=== PATIENT | male | born 2000 | race African-American/Black ===

== ENCOUNTER 2021-04-27 11:13 | Emergency (ER) | payer OTHER, MEDICAID, SELFPAY ==
[2021-04-27] VITALS (7 sets, daily range): BP systolic 104–113; BP diastolic 56–78; PULSE 63–78; RESP 14; TEMP 37.1; O2SAT 96–99
--- NOTE | 2021-04-27 13:44 | DI.RAD.S_ITS ---
PROCEDURE: XR HIP W PEL IF DONE LT 2V INDICATIONS: L hip pain TECHNIQUE: Two views of the hip were acquired. COMPARISON: None. FINDINGS: Dysplastic/dysmorphic changes of the left hip, favored to represent developmental or potentially posttraumatic change. The left acetabulum is shallow. The femoral head is abnormally squared in morphology. There is secondary degenerative change in the left femoroacetabular joint. IMPRESSION: Dysplastic appearance of the left acetabula left femoral head, favored be developmental or potentially posttraumatic. Mild secondary degenerative changes. Dictated by: Elias Meraz M.D. on 04/27/2021 at 15:29 Approved by: Elias Meraz M.D. on 04/27/2021 at 15:31
[2021-04-27] MEDS: MORPHINE 4 MG/ML INJ IM (13:58)
--- NOTE | 2021-04-30 14:26 | ED.EXTPRO ---
HPI - Extremity Problem <Ladi Dowell PA-C - Last Filed: 04/30/21 14:39> General Chief complaint: Extremity Problem,Nontraumatic Stated complaint: left hip pain,bones rubbing Time Seen by Provider: 04/27/21 13:15 Source: patient Mode of arrival: Ambulatory Limitations: no limitations History of Present Illness HPI Narrative: 20-year-old male with past medical history sickle cell disease presents to the ED with 2 months of worsening left hip pain. Patient states that he had similar pain in his right knee, consequently had a right hip replacement done with a spacer put in. Patient had that procedure in [place], has since then moved here, does not have Ortho follow-up currently. Patient states he has tried contacting [facility] without success in being able to find an appointment. Patient states that his left hip pain has worsened, has difficulty bearing weight and walking. Patient states he took ibuprofen at home without relief. Patient denies numbness, tingling, weakness. Patient denies fever, chills, chest pain, shortness of breath, nausea, vomiting, abdominal pain, dysuria. Related Data Allergies Allergy/AdvReac Type Severity Reaction Status Date / Time No Known Drug Allergies Allergy Verified 04/27/21 11:46 Review of Systems <Ladi Dowell PA-C - Last Filed: 04/30/21 14:39> Constitutional Constitutional: Denies chills, Denies fatigue, Denies fever(s), Denies frequent falls, Denies lethargy and Denies weakness Eyes Eyes: Denies change in vision, Denies eye discharge, Denies irritation and Denies loss of vision ENT Ears, Nose, Mouth, and Throat: Denies change in voice, Denies dizziness, Denies neck pain, Denies sore throat and Denies throat swelling Cardiovascular Cardiovascular: Denies chest pain, Denies irregular heart rhythm, Denies lightheadedness, Denies palpitations, Denies dyspnea, Denies dyspnea on exertion and Denies orthopnea Respiratory Respiratory: Denies cough, Denies dyspnea, Denies dyspnea on exertion and Denies wheezing Gastrointestinal Gastrointestinal: Denies abdominal pain, Denies change in bowel habits, Denies diarrhea, Denies nausea and Denies vomiting Musculoskeletal Musculoskeletal: Denies neck pain and Denies numbness Comments: L hip pain, pain with walking Integumentary/Breasts Skin/Breast: Denies pruritus, Denies erythema, Denies rash and Denies wounds Neurologic Neurologic: Denies behavioral changes, Denies confusion, Denies dizziness, Denies frequent falls, Denies loss of vision, Denies numbness and Denies weakness Psychiatric Psychiatric: Denies anxiety, Denies behavioral changes, Denies confusion, Denies depression, Denies homicidal ideation and Denies suicidal ideation Endocrine Endocrine: Denies fatigue, Denies flushing and Denies palpitations Hematologic/Lymphatic Hematologic/Lymphatic: Denies easy bruising Allergic/Immunologic Allergic/Immunologic: Denies urticaria, Denies throat swelling and Denies wheezing Patient History <Ladi Dowell PA-C - Last Filed: 04/30/21 14:39> Social History Smoking Status: Never smoker Smoking Status: Never smoker alcohol intake frequency: 0-2 drinks per day Substance Use Type: marijuana Exam <Ladi Dowell PA-C - Last Filed: 04/30/21 14:39> Initial Vital Signs Initial Vital Signs: Vital Signs Temperature 98.8 F 04/27/21 11:40 Pulse Rate 78 04/27/21 11:40 Respiratory Rate 14 04/27/21 11:40 Blood Pressure 110/78 04/27/21 11:40 Pulse Oximetry 99 04/27/21 11:40 Const General: cooperative HENMT Head: normocephalic and atraumatic Ears: external ears normal and TM's normal bilaterally Nose: external nose normal and No nasal discharge Face and sinus: sinuses nontender, face symmetric, no sinus tenderness and No dry mucous membranes Mouth: oral mucosae normal and moist mucous membranes Teeth and gingiva: dentition normal Throat: tonsils normal and uvula midline Eyes General: appearance normal, both eyes and all related structures Eyelids: eyelids normal Conjunctivae: conjunctivae normal Sclera: sclerae normal Pupils: PERRL EOM: EOM intact bilaterally Neck Neck: normal visual inspection, trachea midline, No lymphadenopathy, No midline deformity and No JVD Lymphatic: No lymphedema Chest Chest: normal inspection of the chest Resp Effort & Inspection: normal respiratory effort, able to speak in complete sentences, no respiratory distress and no use of accessory muscles Auscultation: clear to auscultation bilaterally, no rales, no rhonchi and no wheezes Cardio Rate: regular rate Rhythm: regular rhythm Heart Sounds: no click, no gallops, no murmurs and no rubs Pulses: normal peripheral pulses GI Inspection: non-distended Palpation: soft, no hepatosplenomegaly, No guarding, No pulsatile mass and No tender Auscultation: normal bowel sounds Back/Spine/Pelvis Back: No CVA tenderness Cervical Spine: cervical ROM normal and No pain with cervical ROM Thoracic/Lumbar Spine: thoracic and lumbar spine normal to inspection Skin General: no rashes or lesions noted, No jaundice and No petechiae Neuro General: patient alert, patient oriented x3, gait normal and no focal motor deficits Speech: speech normal Extrem General: full ROM, no clubbing, cyanosis or edema, no pedal edema and no calf tenderness Other: L hip TTP. No swelling, bruising. ROM intact, but limited by pain. L leg alignment normal, without internal or external rotation, no leg shortening. Neurovascularly intact. Psych Appearance: well kempt Mental Status: mental status grossly normal Attitude: cooperative Thought Content: normal and suicidality Judgment: judgment good <Beverley Kumar DO - Last Filed: 05/02/21 15:56> Initial Vital Signs Initial Vital Signs: Vital Signs Temperature 98.8 F 04/27/21 11:40 Pulse Rate 78 04/27/21 11:40 Respiratory Rate 14 04/27/21 11:40 Blood Pressure 110/78 04/27/21 11:40 Pulse Oximetry 99 04/27/21 11:40 Course <Ladi Dowell PA-C - Last Filed: 04/30/21 14:39> Course Course Narrative: For patient's pain improved marginally with morphine. Patient's x-ray shows dysplastic/dysmorphic changes. Orthopedic surgeon Dr. Painter from [facility] was consulted, who recommends that patient schedule an appointment with them to be seen for a left hip replacement. Patient discharged with ED return precautions and ortho follow-up. Patient verbalized understanding, agreed to schedule an appointment with scheduled [facility]. Orders Ordered: Discontinued Medications Morphine Sulfate (Morphine 4 Mg/Ml Inj) 4 mg IM NOW ONE Stop: 04/27/21 13:45 Last Admin: 04/27/21 13:58 Dose: 4 mg Documented by: ROBERT <Beverley Kumar DO - Last Filed: 05/02/21 15:56> Orders Ordered: Discontinued Medications Morphine Sulfate (Morphine 4 Mg/Ml Inj) 4 mg IM NOW ONE Stop: 04/27/21 13:45 Last Admin: 04/27/21 13:58 Dose: 4 mg Documented by: ROBERT VERGARA - Extremity (Nontraumatic) <Ladi Dowell PA-C - Last Filed: 04/30/21 14:39> Imaging Data Hip x-ray: Radiologist's Impression: PROCEDURE:? XR HIP W PEL IF DONE LT 2V ? INDICATIONS:? L hip pain ? TECHNIQUE:? Two views of the hip were acquired.? ? COMPARISON:? None. ? FINDINGS:? ? Dysplastic/dysmorphic changes of the left hip, favored to represent developmental or potentially posttraumatic change.? The left acetabulum is shallow.? The femoral head is abnormally squared in morphology.? There is secondary degenerative change in the left femoroacetabular joint. ? IMPRESSION:? Dysplastic appearance of the left acetabula left femoral head, favored be developmental or potentially posttraumatic.? Mild secondary degenerative changes.? ? ? Dictated by: Elias Meraz M.D. on 04/27/2021 at 15:29 ? ? Approved by: Elias Meraz M.D. on 04/27/2021 at 15:31 ? [facility] Narrative Medical decision making narrative: 20-year-old male with past medical history sickle cell disease presents to the ED with 2 months of worsening left hip pain. Concern for fracture/dislocation. Will obtain hip x-rays. Will give morphine for pain. Will reassess. Discharge Plan Departure Patient Disposition: Home Clinical Impression: Acute hip pain Qualifiers: Laterality: left Qualified Code(s): M25.552 - Pain in left hip Instructions: DI for Hip Pain Activity Restrictions/Additional Instructions: You were evaluated in the ED today for left-sided hip pain. Your x-ray showed some dysplastic or dysmorphic changes of the left hip that could either be a developmental issue or a posttraumatic development. Please follow-up with [facility] for further care. You may call and schedule an appointment at [phone]. UA take Tylenol, ibuprofen for pain. Please return to the ED if you experience worsening symptoms, numbness, tingling, weakness. <Beverley Kumar DO - Last Filed: 05/02/21 15:56> Cosign ED Attending Cosignature Attestation: I was immediately available in the department for consultation. Documentation has been reviewed.
== END 2021-04-27 17:00 | disposition home or self-care (01) ==
PROVIDERS: Emergency Provider Student in an Organized Health Care Education/Training Program
DX: M25.552 Pain in left hip (principal)
CPT/HCPCS: 73502; 96372; 99283; J2270

== ENCOUNTER 2022-12-06 14:43 | Emergency (ER) | payer OTHER, MEDICAID, SELFPAY ==
[2022-12-06] VITALS (9 sets, daily range): BP systolic 91–108; BP diastolic 52–63; PULSE 63–76; RESP 14–22; TEMP 36.4–36.9; O2SAT 98–100; BMI 18.6
--- NOTE | 2022-12-06 15:01 | DI.RAD.S_ITS ---
PROCEDURE: XR CHEST 2V INDICATIONS: sickle crisis TECHNIQUE: 2 views of the chest were acquired. COMPARISON: None. FINDINGS: Surgical changes and devices: Cholecystectomy clips. Lungs and pleura: Lungs are clear. No pleural effusions or pneumothorax. Mediastinum: Mediastinal contours are normal. Heart size is normal. Bones and chest wall: No suspicious bony abnormalities. Soft tissues appear unremarkable. IMPRESSION: No acute cardiopulmonary disease process. Dictated by: Jazmine Maria MD, PhD on 12/06/2022 at 15:56 Approved by: Jazmine Maria MD, PhD on 12/06/2022 at 15:57
[2022-12-06 15:41] LABS: Hematocrit 29.3 % (41-53); Hemoglobin 9.9 g/dL (13.5-17.5); Mean Corpuscular HGB Conc 33.6 % (30-36); Mean Corpuscular Hemoglobin 24.7 PG (26-34); Mean Corpuscular Volume 73.7 fL (80-100); Platelet Count 236 X10^3/uL (150-400); Red Blood Cell Count 3.98 X10^6/uL (4.5-5.9); Red Cell Distribution Width 18.1 % (11.6-14.8); White Blood Cell Count 11.5 X10^3/uL (4.5-11.0)
[2022-12-06] MEDS: KETOROLAC 30 MG/ML VIAL 15 MG IV (15:47)
[2022-12-06] MEDS: SODIUM CHLORIDE 0.9% 1,000 ML 1000 ML IV (15:48)
[2022-12-06 15:51] LABS: Alanine Aminotransferase 24 IU/L (<50); Albumin 4.5 g/dL (3.5-5.0); Albumin Globulin Ratio 1.1 (1.0-2.8); Alkaline Phosphatase 78 U/L (38-126); Aspartate Aminotransferase 46 IU/L (17-59); BUN Creatinine Ratio 5.4 (6-22); Bilirubin Total 2.3 mg/dL (0.2-1.3); Blood Urea Nitrogen 3 mg/dL (9-20); C-Reactive Protein Quant 1.5 mg/dL (<1.0); Calcium 8.3 mg/dL (8.4-10.2); Carbon Dioxide 22 mmol/L (22-32); Chloride 105 mmol/L (98-107); Estimated Glomerular Filt Rate > 60 mL/min (>60); Glucose 152 mg/dL (70-100); HEMOLYSIS 15 (0-50); Magnesium 1.9 mg/dL (1.6-2.3); Potassium 3.5 mmol/L (3.4-5.1); Sodium 137 mmol/L (137-145); Total Protein 8.5 g/dL (6.3-8.2)
[2022-12-06 15:53] LABS: Reticulocyte Count, Percent 7.4 % (0.9-2.6)
[2022-12-06] MEDS: ACETAMINOPHEN IV 1,000 MG/100 ML VIAL 400 MG IV (15:53)
[2022-12-06 16:24] LABS: Add Manual Diff / Slide Review YES
[2022-12-06 16:35] LABS: Neutrophils Absolute Manual 6210 /uL (3000-5900); Total Cells Counted 100
[2022-12-06 16:40] LABS: Anisocytosis 2+
[2022-12-06 16:47] LABS: Polychromasia 1+; Schistocytes 1+; Sickle Cells 1+; Target Cells 2+
[2022-12-06 16:52] LABS: Erythrocyte Sedimentation Rate 13 MM/HR (0-15)
--- NOTE | 2022-12-06 17:05 | ED_ITS ---
HPI - Extremity Problem <Nawaf Quiroz DO - Last Filed: 12/07/22 11:03> General Chief complaint: Extremity Problem,Nontraumatic Stated complaint: sickle cell crisis, started in arm Time Seen by Provider: 12/06/22 15:01 Source: patient Mode of arrival: Ambulatory History of Present Illness HPI Narrative: 22-year-old male nonsmoker With a history of sickle cell not currently managed by any providers, does not know his baseline numbers, had stroke at age 1 presents with a chief complaint bilateral lower extremity pain for the past week or so. He denies any headache, blurred vision. He is no runny nose, sore throat or cough. He has no chest pain, shortness of breath or abdominal pain. He denies any change in bowel habits. He states that typically his vaso- occlusive crisis presents like this and it is not uncommon for him to experience exacerbations with weather change. Related Data Previous Rx's Medication Instructions Recorded hydrocodone 5 mg-acetaminophen 325 1 tab PO Q6H PRN pain #20 tabs 12/06/22 mg tablet Allergies Allergy/AdvReac Type Severity Reaction Status Date / Time No Known Drug Allergies Allergy Verified 04/27/21 11:46 Review of Systems <DO Yue Gray Last Filed: 12/07/22 11:03> Review of Systems Narrative: GENERAL: Denies chills, fatigue, malaise, fever, sweats. HEENT: Denies sinus pain, ear pain, sore throat, difficulty swallowing, dizzine ss. RESPIRATORY: Denies dyspnea, cough, wheezing, hemoptysis, sputum. CARDIOVASCULAR: Denies chest pain, palpitations, orthopnea, edema, GASTROINTESTINAL: Denies nausea, vomiting, abdominal pain, diarrhea, constipation, melena. : Denies dysuria, frequency, incontinence, hematuria, urinary retention. MUSCULOSKELETAL: denies weakness, joint pain, or bony pain SKIN: Denies rash, skin lesions, or other NEUROLOGIC: Denies weakness, headache, numbness, change in speech, confusion, seizures, incoordination. PSYCHIATRIC: No concerning psychosocial issues. 12 point review of systems is negative except for those stated above GENERAL: Denies chills, fatigue, malaise, fever, sweats. Patient History <DO Yue Gray Last Filed: 12/07/22 11:03> Social History Smoking Status: Never smoker Smoking Status: Never smoker alcohol intake frequency: holidays/special occasions only Substance Use Type: marijuana Exam <Nawaf Quiroz DO - Last Filed: 12/07/22 11:03> Narrative Exam Narrative: GENERAL: 22] year old patient appears stated age. Well-developed patient, in mild distress. HEAD: Atraumatic. Normocephalic. EYES: Pupils equal round and reactive. Extraocular motions intact. No scleral icterus. No injection or drainage. ENT: Nose without bleeding, purulent drainage. Throat without erythema, tonsillar hypertrophy or exudate. Airway patent. NECK: Trachea midline. Non tender CARDIOVASCULAR: Regular rate and rhythm without murmurs, gallops, or rubs. RESPIRATORY: Clear to auscultation. Breath sounds equal bilaterally. No wheezes, rales, or rhonchi. GASTROINTESTINAL: Abdomen soft, non-tender, nondistended. EXTREMITIES: No edema or joint tenderness. BACK: Nontender without deformity or crepitance. No flank tenderness. NEURO: AOx3. left-sided weakness chronic due to stroke at age 1 SKIN: No rash or erythema of visible areas Initial Vital Signs Initial Vital Signs: Vital Signs Temperature 98.5 F 12/06/22 14:55 Pulse Rate 76 12/06/22 14:55 Respiratory Rate 14 12/06/22 14:55 Blood Pressure 108/55 L 12/06/22 14:55 Pulse Oximetry 98 12/06/22 14:55 Oxygen Delivery Method Room Air 12/06/22 14:55 <Abebe Espinoza DO - Last Filed: 12/07/22 01:23> Initial Vital Signs Initial Vital Signs: Vital Signs Temperature 98.5 F 12/06/22 14:55 Pulse Rate 76 12/06/22 14:55 Respiratory Rate 14 12/06/22 14:55 Blood Pressure 108/55 L 12/06/22 14:55 Pulse Oximetry 98 12/06/22 14:55 Oxygen Delivery Method Room Air 12/06/22 14:55 Course <Nawaf Quiroz DO - Last Filed: 12/07/22 11:03> Orders Ordered: Discontinued Medications Hydrocodone Bitart/Acetaminophen (Hydrocodone/Acet 5/325 Tablet) 2 tab PO NOW ONE Stop: 12/06/22 19:14 Last Admin: 12/06/22 19:27 Dose: 2 tab Documented By: LASHAUN Hydromorphone HCl (Hydromorphone 0.5 Mg Inj) 0.5 mg IV NOW ONE Stop: 12/06/22 18:09 Last Admin: 12/06/22 18:34 Dose: 0.5 mg Documented By: JIMMY Sodium Chloride (Normal Saline 0.9%) 1,000 mls @ 1,000 mls/hr IV BOLUS ONE Stop: 12/06/22 16:00 Last Infusion: 12/06/22 17:09 Dose: 0 mls/hr Documented By: Admin: 12/06/22 15:48 Dose: 1,000 mls/hr Documented By: JIMMY Acetaminophen (Ofirmev) 1,000 mg in 100 mls @ 400 mls/hr IV NOW ONE Stop: 12/06/22 15:15 Last Infusion: 12/06/22 16:15 Dose: 0 mls/hr Documented By: Admin: 12/06/22 15:53 Dose: 400 mls/hr Documented By: JIMMY Ketorolac Tromethamine (Ketorolac 30 Mg/Ml Vial) 15 mg IV NOW ONE Stop: 12/06/22 15:02 Last Admin: 12/06/22 15:47 Dose: 15 mg Documented By: JIMMY Reevaluation(s) Reevaluation #1: minimal if any improvement after Tylenol and Toradol, Dilaudid ordered Vital Signs Vital signs: Vital Signs - 8 hr 12/06/22 17:30 12/06/22 17:30 12/06/22 18:00 Temperature Pulse Rate 65 Respiratory Rate 22 Blood Pressure 95/54 L 102/57 L Pulse Oximetry 99 Oxygen Delivery Method 12/06/22 18:00 12/06/22 18:30 12/06/22 18:30 Temperature Pulse Rate 63 64 Respiratory Rate Blood Pressure 105/59 L Pulse Oximetry 99 99 Oxygen Delivery Method 12/06/22 20:30 Temperature 97.6 F Pulse Rate 68 Respiratory Rate 16 Blood Pressure 100/56 L Pulse Oximetry 99 Oxygen Delivery Method Room Air <Abebe Espinoza DO - Last Filed: 12/07/22 01:23> Orders Ordered: Discontinued Medications Hydrocodone Bitart/Acetaminophen (Hydrocodone/Acet 5/325 Tablet) 2 tab PO NOW ONE Stop: 12/06/22 19:14 Last Admin: 12/06/22 19:27 Dose: 2 tab Documented By: LASHAUN Hydromorphone HCl (Hydromorphone 0.5 Mg Inj) 0.5 mg IV NOW ONE Stop: 12/06/22 18:09 Last Admin: 12/06/22 18:34 Dose: 0.5 mg Documented By: JIMMY Sodium Chloride (Normal Saline 0.9%) 1,000 mls @ 1,000 mls/hr IV BOLUS ONE Stop: 12/06/22 16:00 Last Infusion: 12/06/22 17:09 Dose: 0 mls/hr Documented By: Admin: 12/06/22 15:48 Dose: 1,000 mls/hr Documented By: JIMMY Acetaminophen (Ofirmev) 1,000 mg in 100 mls @ 400 mls/hr IV NOW ONE Stop: 12/06/22 15:15 Last Infusion: 12/06/22 16:15 Dose: 0 mls/hr Documented By: Admin: 12/06/22 15:53 Dose: 400 mls/hr Documented By: JIMMY Ketorolac Tromethamine (Ketorolac 30 Mg/Ml Vial) 15 mg IV NOW ONE Stop: 12/06/22 15:02 Last Admin: 12/06/22 15:47 Dose: 15 mg Documented By: JIMMY Vital Signs Vital signs: Vital Signs - 8 hr 12/06/22 17:30 12/06/22 17:30 12/06/22 18:00 Temperature Pulse Rate 65 Respiratory Rate 22 Blood Pressure 95/54 L 102/57 L Pulse Oximetry 99 Oxygen Delivery Method 12/06/22 18:00 12/06/22 18:30 12/06/22 18:30 Temperature Pulse Rate 63 64 Respiratory Rate Blood Pressure 105/59 L Pulse Oximetry 99 99 Oxygen Delivery Method 12/06/22 20:30 Temperature 97.6 F Pulse Rate 68 Respiratory Rate 16 Blood Pressure 100/56 L Pulse Oximetry 99 Oxygen Delivery Method Room Air MDM - Extremity (Nontraumatic) <Nawaf Quiroz DO - Last Filed: 12/07/22 11:03> Lab Data 12/06/22 15:21 12/06/22 15:21 Labs: Lab Results 12/06/22 12/06/22 12/06/22 Range/Units 15:21 15:21 15:21 WBC 11.5 H (4.5-11.0) X10^3/uL RBC 3.98 L (4.5-5.9) X10^6/uL Hgb 9.9 L (13.5-17.5) g/dL Hct 29.3 L (41-53) % MCV 73.7 L (80-100) fL MCH 24.7 L (26-34) PG MCHC 33.6 (30-36) % RDW 18.1 H (11.6-14.8) % Plt Count 236 (150-400) X10^3/uL Neut % (Auto) Not Reportable Lymph % (Auto) Not Reportable Hendricks % (Auto) Not Reportable Eos % (Auto) Not Reportable Baso % (Auto) Not Reportable Lymph # (Auto) Not Reportable Hendricks # (Auto) Not Reportable Baso # (Auto) Not Reportable Total Counted 100 Seg Neutrophils % 54.0 (38-70) % Lymphocytes % (Manual) 33.0 (25-45) % Monocytes % (Manual) 10.0 (2-11) % Eosinophils % (Manual) 3.0 (2-4) % Neutrophils # (Manual) 6210 H (8816-7947) /uL RBC Morphology See below Polychromasia 1+ H Anisocytosis 2+ H Sickle Cells 1+ H Target Cells 2+ H Schistocytes 1+ H ESR 13 (0-15) MM/HR Percent Retic 7.4 H (0.9-2.6) % Sodium 137 (137-145) mmol/L Potassium 3.5 (3.4-5.1) mmol/L Chloride 105 (98-107) mmol/L Carbon Dioxide 22 (22-32) mmol/L BUN 3 L (9-20) mg/dL Creatinine 0.56 L (0.66-1.25) mg/dL Estimated GFR > 60 (>60) mL/min BUN/Creatinine Ratio 5.4 L (6-22) Glucose 152 H (70-100) mg/dL Calcium 8.3 L (8.4-10.2) mg/dL Magnesium 1.9 (1.6-2.3) mg/dL Total Bilirubin 2.3 H (0.2-1.3) mg/dL AST 46 (17-59) IU/L ALT 24 (<50) IU/L Alkaline Phosphatase 78 (38-126) U/L C-Reactive Protein 1.5 H (<1.0) mg/dL Total Protein 8.5 H (6.3-8.2) g/dL Albumin 4.5 (3.5-5.0) g/dL Globulin 4.0 (1.7-4.1) g/dL Albumin/Globulin Ratio 1.1 (1.0-2.8) MDM Narrative Medical decision making narrative: CC: 22-year-old male with extremity pain known sickle cell Complicating co-morbidities: Sickle cell, prior stroke Data collected from: Patient Medical records reviewed: Prior notes reviewed in our EMR Differential considered, but not limited to: Vaso-occlusive crisis versus other Exam documented above, pertinent findings include: Awake, alert and oriented, no increased work of breathing, lungs clear, abdomen soft Lab Test results independently reviewed as above. Pertinent findings: Hemoglobin 9.9, retic count within normal expected range Imaging studies independently reviewed: No acute process Treatments: Patient given IV Tylenol, Toradol, Dilaudid, hydrocodone Re-evaluations: Minimal if any improvement after Toradol or Tylenol. Patient did have improvement after Dilaudid but it was short-lived, patient given hydrocodone Discussion: Disposition: see below, along with detailed discharge instructions that have been reviewed with patient as well as indications for ED re-evaluation and additional outpatient follow up <Abebe Espinoza DO - Last Filed: 12/07/22 01:23> Lab Data Labs: Lab Results 12/06/22 12/06/22 12/06/22 Range/Units 15:21 15:21 15:21 WBC 11.5 H (4.5-11.0) X10^3/uL RBC 3.98 L (4.5-5.9) X10^6/uL Hgb 9.9 L (13.5-17.5) g/dL Hct 29.3 L (41-53) % MCV 73.7 L (80-100) fL MCH 24.7 L (26-34) PG MCHC 33.6 (30-36) % RDW 18.1 H (11.6-14.8) % Plt Count 236 (150-400) X10^3/uL Neut % (Auto) Not Reportable Lymph % (Auto) Not Reportable Hendricks % (Auto) Not Reportable Eos % (Auto) Not Reportable Baso % (Auto) Not Reportable Lymph # (Auto) Not Reportable Hendricks # (Auto) Not Reportable Baso # (Auto) Not Reportable Total Counted 100 Seg Neutrophils % 54.0 (38-70) % Lymphocytes % (Manual) 33.0 (25-45) % Monocytes % (Manual) 10.0 (2-11) % Eosinophils % (Manual) 3.0 (2-4) % Neutrophils # (Manual) 6210 H (7568-1870) /uL RBC Morphology See below Polychromasia 1+ H Anisocytosis 2+ H Sickle Cells 1+ H Target Cells 2+ H Schistocytes 1+ H ESR 13 (0-15) MM/HR Percent Retic 7.4 H (0.9-2.6) % Sodium 137 (137-145) mmol/L Potassium 3.5 (3.4-5.1) mmol/L Chloride 105 (98-107) mmol/L Carbon Dioxide 22 (22-32) mmol/L BUN 3 L (9-20) mg/dL Creatinine 0.56 L (0.66-1.25) mg/dL Estimated GFR > 60 (>60) mL/min BUN/Creatinine Ratio 5.4 L (6-22) Glucose 152 H (70-100) mg/dL Calcium 8.3 L (8.4-10.2) mg/dL Magnesium 1.9 (1.6-2.3) mg/dL Total Bilirubin 2.3 H (0.2-1.3) mg/dL AST 46 (17-59) IU/L ALT 24 (<50) IU/L Alkaline Phosphatase 78 (38-126) U/L C-Reactive Protein 1.5 H (<1.0) mg/dL Total Protein 8.5 H (6.3-8.2) g/dL Albumin 4.5 (3.5-5.0) g/dL Globulin 4.0 (1.7-4.1) g/dL Albumin/Globulin Ratio 1.1 (1.0-2.8) MDM Narrative Medical decision making narrative: CC: 22-year-old male with extremity pain known sickle cell Complicating co-morbidities: Sickle cell, prior stroke Data collected from: Patient Medical records reviewed: Prior notes reviewed in our EMR Differential considered, but not limited to: Vaso-occlusive crisis versus other Exam documented above, pertinent findings include: Awake, alert and oriented, no increased work of breathing, lungs clear, abdomen soft Lab Test results independently reviewed as above. Pertinent findings: Hemoglobin 9.9, retic count within normal expected range Imaging studies independently reviewed: No acute process Treatments: Patient given IV Tylenol, Toradol, Dilaudid, hydrocodone Re-evaluations: Minimal if any improvement after Toradol or Tylenol. Patient did have improvement after Dilaudid but it was short-lived, patient given hydrocodone Discussion: Disposition: see below, along with detailed discharge instructions that have been reviewed with patient as well as indications for ED re-evaluation and additional outpatient follow up Dr Espinoza: Patient's pain is very well controlled. Will discharge patient home. He was informed that he does need to make contact with a primary doctor. Discharge Plan Departure Patient Disposition: Home Clinical Impression: Sickle cell disease Instructions: DI for Sickle Cell Anemia, Pain Crisis -- Adult Activity Restrictions/Additional Instructions: It is important that you may contact with the primary care doctor to manage your long-term issues. Return to the emergency department for new or worsening symptoms. Prescriptions: New hydrocodone-acetaminophen 5-325 mg tablet 1 tab PO Q6H PRN (Reason: pain) Qty: 20 0RF Referrals: Evens Valdez MD [Primary Care Provider] - Stand Alone Forms: Patient Portal/API, Work Release Note
[2022-12-06] MEDS: HYDROMORPHONE 0.5 MG INJ IV (18:34)
[2022-12-06] MEDS: HYDROCODONE/ACET 5/325 TABLET 2 TAB PO (19:27)
== END 2022-12-06 20:31 | disposition home or self-care (01) ==
PROVIDERS: Emergency Medicine; Emergency Provider Emergency Medicine; PCP Family Medicine
DX: D57.1 Sickle-cell disease without crisis (principal)
CPT/HCPCS: 36415; 71046; 80053; 83735; 85007; 85025; 85045; 85651; 86140; 96365; 96375; 99284; J0131; J1170; J1885

== ENCOUNTER 2022-12-09 17:31 | Emergency (ER) | payer OTHER, MEDICAID, SELFPAY ==
[2022-12-09] VITALS (10 sets, daily range): BP systolic 96–110; BP diastolic 54–66; PULSE 65–78; RESP 17–24; TEMP 36.7; O2SAT 96–100; BMI 18.6
--- NOTE | 2022-12-09 18:04 | DI.RAD.S_ITS ---
PROCEDURE: XR CHEST 1V INDICATIONS: chest pain TECHNIQUE: One view of the chest was acquired. COMPARISON: [facility], CR, XR CHEST 2V, 12/06/2022, 15:40. FINDINGS: Surgical changes and devices: None. Lungs and pleura: Lungs are clear. No pleural effusions or pneumothorax. Mediastinum: Mediastinal contours appear normal. Heart size is normal. Bones and chest wall: No suspicious bony lesions. Overlying soft tissues appear unremarkable. IMPRESSION: No acute process. Dictated by: Justa Cobian M.D. on 12/09/2022 at 18:28 Approved by: Justa Cobian M.D. on 12/09/2022 at 18:29
[2022-12-09 18:27] LABS: INR 1.3 (0.9-1.3); Prothrombin Time 15.3 SECONDS (10.1-12.7)
[2022-12-09 18:29] LABS: Hematocrit 28.2 % (41-53); Hemoglobin 9.6 g/dL (13.5-17.5); Mean Corpuscular Hemoglobin 25.1 PG (26-34); Mean Corpuscular Volume 73.8 fL (80-100); Platelet Count 254 X10^3/uL (150-400); Red Blood Cell Count 3.82 X10^6/uL (4.5-5.9); Red Cell Distribution Width 17.8 % (11.6-14.8); White Blood Cell Count 10.9 X10^3/uL (4.5-11.0)
[2022-12-09 18:30] LABS: PTT Partial Thromboplastin Tim 25 SECONDS (26-36)
[2022-12-09 18:38] LABS: Alanine Aminotransferase 24 IU/L (<50); Albumin 4.7 g/dL (3.5-5.0); Albumin Globulin Ratio 1.2 (1.0-2.8); Alkaline Phosphatase 81 U/L (38-126); Aspartate Aminotransferase 51 IU/L (17-59); BUN Creatinine Ratio 9.5 (6-22); Bilirubin Total 2.5 mg/dL (0.2-1.3); Blood Urea Nitrogen 6 mg/dL (9-20); Calcium 8.7 mg/dL (8.4-10.2); Carbon Dioxide 23 mmol/L (22-32); Chloride 105 mmol/L (98-107); Creatine Kinase 172 U/L (55-170); Estimated Glomerular Filt Rate > 60 mL/min (>60); Glucose 93 mg/dL (70-100); Lipase 112 U/L (23-300); Potassium 4.1 mmol/L (3.4-5.1); Sodium 139 mmol/L (137-145); Total Protein 8.7 g/dL (6.3-8.2)
[2022-12-09 18:49] LABS: Troponin I 0.016 ng/mL (0.01-0.034)
[2022-12-09 18:53] LABS: CKMB % Relative Index 0.2 % (1.5-5.0); Creatine Kinase MB 0.27 ng/mL (<2.37); HEMOLYSIS 18 (0-50)
[2022-12-09 18:56] LABS: Add Manual Diff / Slide Review YES
[2022-12-09 19:01] LABS: Anisocytosis 3+; Neutrophils Absolute Manual 5232 /uL (3000-5900); Total Cells Counted 100
[2022-12-09 19:02] LABS: Microcytosis 2+; Ovalocytes 1+; Poikilocytosis 4+; Sickle Cells 2+; Target Cells 2+
--- NOTE | 2022-12-09 21:53 | ED.CHESTPAIN ---
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 He reports that he is having chest pain and never really got better after he was seen evaluated here on 12/06/2022. He denies any shortness of breath or fever. He feels heaviness in his chest. No significant shortness of breath. No abdominal pain nausea or vomiting Related Data Previous Rx's Medication Instructions Recorded hydrocodone 5 mg-acetaminophen 325 1 tab PO Q6H PRN pain #20 tabs 12/06/22 mg tablet Allergies Allergy/AdvReac Type Severity Reaction Status Date / Time No Known Drug Allergies Allergy Verified 12/09/22 18:03 Review of Systems Review of Systems ROS Unobtainable: All systems reviewed & are unremarkable except as noted in HPI and below Patient History Social History Smoking Status: Never smoker Smoking Status: Never smoker alcohol intake frequency: holidays/special occasions only Substance Use Type: marijuana Exam Initial Vital Signs Initial Vital Signs: Vital Signs Temperature 98.1 F 12/09/22 17:58 Pulse Rate 78 12/09/22 17:58 Respiratory Rate 20 12/09/22 17:58 Blood Pressure 110/66 12/09/22 17:58 Pulse Oximetry 100 12/09/22 17:58 Oxygen Delivery Method Room Air 12/09/22 17:58 GENERAL: Alert well-appearing 22-year-old male HEENT: Head atraumatic,EOMI, pupils reactive, face symmetric, moist mucous membranes CARDIOVASCULAR: Regular rate and rhythm without murmurs, rubs or gallops. RESPIRATORY: Breath sounds equal bilaterally, no wheezes rales or rhonchi. No conversational dyspnea or respiratory distress ABDOMEN: Soft, nontender. Normoactive bowel sounds all 4 quadrants. No guarding or rebound. EXTREMITIES: Normal range of motion, no clubbing or edema. Neurovascularly intact NEUROLOGICAL: Alert and oriented x4.Normal gait and speech. Left arm weakness at baseline SKIN: Warm, dry, no laceration, no petechiae, no rashes or lesions. Course Orders Ordered: ED Orders 12/09/22 23:46 CT angio chest PE protocol Stat Discontinued Medications Acetaminophen (Acetaminophen 325 Mg Tablet) 975 mg PO NOW ONE Stop: 12/09/22 23:40 Last Admin: 12/09/22 23:55 Dose: 975 mg Documented By: DERIAN Aspirin (Aspirin 81 Mg Chew Tab) 324 mg PO NOW ONE Stop: 12/09/22 18:05 Last Admin: 12/09/22 21:03 Dose: Not Given Documented By: MOLLY Hydromorphone HCl (Hydromorphone 0.5 Mg Inj) 0.5 mg IV NOW ONE Stop: 12/09/22 21:55 Last Admin: 12/09/22 22:19 Dose: 0.5 mg Documented By: DERIAN Hydromorphone HCl (Hydromorphone 1 Mg Inj) 1 mg IV NOW ONE Stop: 12/10/22 01:18 Last Admin: 12/10/22 01:21 Dose: 1 mg Documented By: DERIAN Sodium Chloride (Normal Saline 0.9%) 1,000 mls @ 1,000 mls/hr IV BOLUS ONE Stop: 12/09/22 22:53 Last Infusion: 12/09/22 23:30 Dose: 0 mls/hr Documented By: Admin: 12/09/22 22:19 Dose: 1,000 mls/hr Documented By: DERIAN Sodium Chloride (Normal Saline 0.9%) 1,000 mls @ 1,000 mls/hr IV BOLUS ONE Stop: 12/10/22 00:38 Last Infusion: 12/10/22 01:22 Dose: 0 mls/hr Documented By: Admin: 12/09/22 23:57 Dose: 1,000 mls/hr Documented By: DERIAN Ketorolac Tromethamine (Ketorolac 30 Mg/Ml Vial) 30 mg IV NOW ONE Stop: 12/09/22 23:40 Last Admin: 12/09/22 23:56 Dose: 30 mg Documented By: DERIAN Vital Signs Vital signs: Vital Signs - 8 hr 12/09/22 23:00 12/09/22 23:30 12/10/22 00:09 Pulse Rate 74 68 64 Respiratory Rate 21 Blood Pressure Pulse Oximetry 99 96 98 Oxygen Delivery Method 12/10/22 00:30 12/10/22 01:00 12/10/22 01:30 Pulse Rate 69 73 75 Respiratory Rate 22 21 14 Blood Pressure Pulse Oximetry 97 98 95 Oxygen Delivery Method 12/10/22 01:40 12/10/22 01:40 Pulse Rate 70 Respiratory Rate 24 Blood Pressure 113/60 Pulse Oximetry 96 Oxygen Delivery Method Room Air MDM - Chest Pain Lab Data 12/09/22 18:10 12/09/22 18:10 Labs: Lab Results 12/09/22 12/09/22 12/09/22 Range/Units 18:10 18:10 18:10 WBC 10.9 (4.5-11.0) X10^3/uL RBC 3.82 L (4.5-5.9) X10^6/uL Hgb 9.6 L (13.5-17.5) g/dL Hct 28.2 L (41-53) % MCV 73.8 L (80-100) fL MCH 25.1 L (26-34) PG MCHC 34.0 (30-36) % RDW 17.8 H (11.6-14.8) % Plt Count 254 (150-400) X10^3/uL Neut % (Auto) Not Reportable Lymph % (Auto) Not Reportable [place] % (Auto) Not Reportable Eos % (Auto) Not Reportable Baso % (Auto) Not Reportable Lymph # (Auto) Not Reportable [place] # (Auto) Not Reportable Baso # (Auto) Not Reportable Total Counted 100 Seg Neutrophils % 48.0 (38-70) % Lymphocytes % (Manual) 36.0 (25-45) % Atypical Lymphs % 4.0 H ( - 0) % Monocytes % (Manual) 8.0 (2-11) % Eosinophils % (Manual) 4.0 (2-4) % Neutrophils # (Manual) 5232 (3069-5802) /uL RBC Morphology See below Poikilocytosis 4+ H Anisocytosis 3+ H Microcytosis 2+ H Sickle Cells 2+ H Target Cells 2+ H Ovalocytes 1+ H Percent Retic (0.9-2.6) % PT 15.3 H (10.1-12.7) SECONDS INR 1.3 (0.9-1.3) APTT 25 L (26-36) SECONDS Sodium 139 (137-145) mmol/L Potassium 4.1 (3.4-5.1) mmol/L Chloride 105 (98-107) mmol/L Carbon Dioxide 23 (22-32) mmol/L BUN 6 L (9-20) mg/dL Creatinine 0.63 L (0.66-1.25) mg/dL Estimated GFR > 60 (>60) mL/min BUN/Creatinine Ratio 9.5 (6-22) Glucose 93 (70-100) mg/dL Calcium 8.7 (8.4-10.2) mg/dL Magnesium 2.0 (1.6-2.3) mg/dL Total Bilirubin 2.5 H (0.2-1.3) mg/dL Direct Bilirubin (0.0-0.4) mg/dL Conjugated Bilirubin (0.0-0.3) md/dL AST 51 (17-59) IU/L ALT 24 (<50) IU/L Alkaline Phosphatase 81 (38-126) U/L Total Creatine Kinase 172 H (55-170) U/L CK-MB (CK-2) 0.27 (<2.37) ng/mL CK-MB (CK-2) Rel Index 0.2 L (1.5-5.0) % Troponin I 0.016 (0.01-0.034) ng/mL Total Protein 8.7 H (6.3-8.2) g/dL Albumin 4.7 (3.5-5.0) g/dL Globulin 4.0 (1.7-4.1) g/dL Albumin/Globulin Ratio 1.2 (1.0-2.8) Lipase 112 (23-300) U/L SARS-CoV-2 (PCR) (Negative) 12/09/22 12/09/22 12/09/22 Range/Units 18:10 18:10 21:40 WBC (4.5-11.0) X10^3/uL RBC (4.5-5.9) X10^6/uL Hgb (13.5-17.5) g/dL Hct (41-53) % MCV (80-100) fL MCH (26-34) PG MCHC (30-36) % RDW (11.6-14.8) % Plt Count (150-400) X10^3/uL Neut % (Auto) Lymph % (Auto) [place] % (Auto) Eos % (Auto) Baso % (Auto) Lymph # (Auto) [place] # (Auto) Baso # (Auto) Total Counted Seg Neutrophils % (38-70) % Lymphocytes % (Manual) (25-45) % Atypical Lymphs % ( - 0) % Monocytes % (Manual) (2-11) % Eosinophils % (Manual) (2-4) % Neutrophils # (Manual) (7242-6547) /uL RBC Morphology Poikilocytosis Anisocytosis Microcytosis Sickle Cells Target Cells Ovalocytes Percent Retic 7.4 H (0.9-2.6) % PT (10.1-12.7) SECONDS INR (0.9-1.3) APTT (26-36) SECONDS Sodium (137-145) mmol/L Potassium (3.4-5.1) mmol/L Chloride (98-107) mmol/L Carbon Dioxide (22-32) mmol/L BUN (9-20) mg/dL Creatinine (0.66-1.25) mg/dL Estimated GFR (>60) mL/min BUN/Creatinine Ratio (6-22) Glucose (70-100) mg/dL Calcium (8.4-10.2) mg/dL Magnesium (1.6-2.3) mg/dL Total Bilirubin (0.2-1.3) mg/dL Direct Bilirubin 0.7 H (0.0-0.4) mg/dL Conjugated Bilirubin 0.0 (0.0-0.3) md/dL AST (17-59) IU/L ALT (<50) IU/L Alkaline Phosphatase (38-126) U/L Total Creatine Kinase (55-170) U/L CK-MB (CK-2) (<2.37) ng/mL CK-MB (CK-2) Rel Index (1.5-5.0) % Troponin I (0.01-0.034) ng/mL Total Protein (6.3-8.2) g/dL Albumin (3.5-5.0) g/dL Globulin (1.7-4.1) g/dL Albumin/Globulin Ratio (1.0-2.8) Lipase (23-300) U/L SARS-CoV-2 (PCR) Negative (Negative) Imaging Data Chest x-ray: Radiologist's Impression: PROCEDURE:? XR CHEST 1V ? INDICATIONS:? chest pain ? TECHNIQUE:? One view of the chest was acquired.? ? COMPARISON:? [facility], CR, XR CHEST 2V, 12/06/2022, 15:40. ? FINDINGS:? ? Surgical changes and devices:? None.? ? Lungs and pleura:? Lungs are clear.? No pleural effusions or pneumothorax.? ? Mediastinum:? Mediastinal contours appear normal.? Heart size is normal.? ? Bones and chest wall:? No suspicious bony lesions.? Overlying soft tissues appear unremarkable.? ? IMPRESSION:? No acute process. ? ? Dictated by: Justa Cobian M.D. on 12/09/2022 at 18:28? ECG Data Interpretation: Normal sinus rhythm rate 83 NJ interval 274 QRS [address] changes MDM Narrative Medical decision making narrative: Patient 22-year-old male history of sickle cell anemia presents today with ongoing chest pain. Seen evaluated here 2 days ago for the same. Reticulocyte count today remains the same at 7.4 which is within normal limits and to be expected. No elevated indirect bilirubin. Sickle cell count has gone up to 2 over the last 2 days. Chest x-ray today and 2 days ago are negative. He is not hypoxic he is not requiring oxygen. He is not hypotensive. He is given 2 L of IV fluids. He 1st was given some Dilaudid Toradol and Tylenol. He says helped a little bit but is quickly back. Due to ongoing chest discomfort which he describes as different than his sickle cell pain CT angio was done which is negative. This time not convinced that patient is currently having a sickle cell crisis there is no evidence of acute chest syndrome. Patient asking for more Dilaudid he is given 1 more mg of Dilaudid. No prescriptions for pain. He has previously been going down to [facility] for his sickle cell crisis episodes. Discharge Plan Departure Patient Disposition: Home Clinical Impression: Sickle cell disease, Atypical chest pain Instructions: DI for Atypical Chest Pain, Sickle Cell Crisis Activity Restrictions/Additional Instructions: *You have been diagnosed with sickle cell disease *What to do: Today workup in the emergency department is negative. *Continue to take medications as directed *Follow up with your primary care provider in 2-3 days or call [phone] *Return to ER if you should have any new, worsening or concerning symptoms Prescriptions: No Action hydrocodone-acetaminophen 5-325 mg tablet 1 tab PO Q6H PRN (Reason: pain) Qty: 20 0RF Referrals: Evens Valdez MD [Primary Care Provider] - Stand Alone Forms: Patient Portal/API
[2022-12-09 22:01] LABS: COVID19 -Nasal RAPID Negative (Negative)
[2022-12-09 22:14] LABS: Bilirubin Direct 0.7 mg/dL (0.0-0.4)
[2022-12-09] MEDS: HYDROMORPHONE 0.5 MG INJ IV (22:19)
[2022-12-09] MEDS: SODIUM CHLORIDE 0.9% 1,000 ML 1000 ML IV ×2 (22:19→23:57)
[2022-12-09 22:29] LABS: Reticulocyte Count, Percent 7.4 % (0.9-2.6)
--- NOTE | 2022-12-09 23:46 | DI.CT.S_ITS ---
PROCEDURE: CT ANGIO CHEST PE PROTOCOL INDICATIONS: sickle cell chest pain TECHNIQUE: After the administration of intravenous contrast, 2 mm thick sections acquired from the pulmonary apices to the posterior costophrenic angles. 3-dimensional maximum intensity projection (MIP) coronal and sagittal reformats were then acquired through the thorax. For radiation dose reduction, the following was used: automated exposure control, adjustment of mA and/or kV according to patient size. COMPARISON: None. FINDINGS: Image quality: Excellent. Pulmonary arteries: Pulmonary arteries are normal in size, and demonstrate no intraluminal filling defects to suggest central pulmonary embolism. Lower Neck: No lymphadenopathy by size criteria. Thyroid: Visualized thyroid demonstrates no discrete nodules. Axillae: No lymphadenopathy by size criteria. Chest Wall: Unremarkable. Bones: There is a diffusely heterogeneous appearance of the visualized osseous structures with heterogeneous areas of sclerosis. Sequelae of a vascular necrosis also demonstrated within the visualized humeral heads with articular surface collapse on the left. Lungs and Airways: No acute consolidation. No suspicious pulmonary nodules. The trachea and central airways are patent. Pleura: No pneumothorax or pleural effusions. Heart: Heart size is normal. No pericardial effusion. Thoracic Vessels: The thoracic aorta is normal in size. Mediastinum and Adela: No lymphadenopathy by size criteria. Esophagus: No wall thickening. No hiatal hernia. Abdomen: Visualized upper abdominal solid organs appear normal in the early arterial phase of enhancement. IMPRESSION: 1. No evidence of pulmonary embolism. 2. No acute airspace consolidation. 3. Diffusely heterogeneous appearance of the visualized osseous structures consistent with sequelae of patient's history of sickle cell. 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 Dictated by: Bean Russell M.D. on 12/10/2022 at 0:40 Approved by: Bean Russell M.D. on 12/10/2022 at 1:01
[2022-12-09] MEDS: ACETAMINOPHEN 325 MG TABLET 975 MG PO (23:55)
[2022-12-09] MEDS: KETOROLAC 30 MG/ML VIAL IV (23:56)
[2022-12-10 00:09] VITALS: PULSE 64; O2SAT 98
[2022-12-10 00:30] VITALS: PULSE 69; RESP 22; O2SAT 97
[2022-12-10 01:00] VITALS: PULSE 73; RESP 21; O2SAT 98
[2022-12-10] MEDS: HYDROMORPHONE 1 MG INJ IV (01:21)
[2022-12-10 01:30] VITALS: PULSE 75; RESP 14; O2SAT 95
[2022-12-10 01:40] VITALS: BP 113/60; PULSE 70; RESP 24; O2SAT 96
== END 2022-12-10 01:47 | disposition home or self-care (01) ==
PROVIDERS: Emergency Medicine; Emergency Provider Emergency Medicine; PCP Family Medicine
DX: R07.89 Other chest pain (principal); D57.1 Sickle-cell disease without crisis; Z20.822 Contact with and (suspected) exposure to COVID-19
CPT/HCPCS: 36415; 71045; 71275; 80053; 82248; 82550; 82553; 83690; 83735; 84484; 85007; 85025; 85045; 85610; 85730; 87635; 93005; 93010; 96361; 96374; 96375; 96376; 99284; 99285; C9803; J1170; J1885; Q9967

== ENCOUNTER 2022-12-25 15:42 | Emergency (ER) | payer OTHER, MEDICAID, SELFPAY ==
[2022-12-25 15:57] VITALS: BP 113/54; PULSE 66; RESP 18; O2SAT 99; BMI 22.1
--- NOTE | 2022-12-25 15:57 | DI.RAD.S_ITS ---
PROCEDURE: XR CHEST 1V INDICATIONS: Sickle cell patient in acute crisis TECHNIQUE: One view of the chest was acquired. COMPARISON: [facility], CT, CT ANGIO CHEST PE PROTOCOL, 12/09/2022, 23:56. [facility], CR, XR CHEST 1V, 12/09/2022, 18:16. FINDINGS: Surgical changes and devices: None. Lungs and pleura: No focal infiltrates are seen. No significant interstitial prominence. No pleural effusions or pneumothorax. Mediastinum: Mediastinal contours appear normal. Heart size is normal. Bones and chest wall: Areas of bony irregularity and sclerosis are seen, which are better demonstrated by CT. Overlying soft tissues appear unremarkable. IMPRESSION: No acute cardiopulmonary process is seen. Bony changes are noted, which are much better seen by CT. Dictated by: Александр Chandler M.D. on 12/25/2022 at 15:24 Approved by: Александр Chandler M.D. on 12/25/2022 at 15:25
--- NOTE | 2022-12-25 16:01 | ED.GENADULT ---
HPI - General Adult General Chief complaint: Weakness Stated complaint: sickle cell crisis Time Seen by Provider: 12/25/22 15:51 Source: patient Mode of arrival: Ambulatory Limitations: no limitations History of Present Illness HPI narrative: Patient is a 22-year-old male. This is his 3rd visit in the emergency department in the past month for sickle cell pain crisis. He does not have a primary care doctor. He returns to the emergency department today saying that he is having pain in his legs in his arms and in his back. It is similar to the discomfort that he had the last 2 times he was here in the ER. He states his symptoms started last evening. He did take some naproxen prior to arrival without any improvement. No fevers. No shortness of breath. No chest pain. He states that since he was here in the emergency department last his pain did completely go away but then returned last evening. Related Data Previous Rx's Medication Instructions Recorded hydrocodone 5 mg-acetaminophen 325 1 tab PO Q6H PRN pain #20 tabs 12/06/ mg tablet hydrocodone 5 mg-acetaminophen 325 1 tab PO Q8H PRN pain #14 tabs 12/25/22 mg tablet Allergies Allergy/AdvReac Type Severity Reaction Status Date / Time No Known Drug Allergies Allergy Verified 12/09/22 18:03 Review of Systems Review of Systems ROS Unobtainable: All systems reviewed & are unremarkable except as noted in HPI and below Patient History Social History Smoking Status: Never smoker Smoking Status: Never smoker alcohol intake frequency: holidays/special occasions only Substance Use Type: marijuana Exam Initial Vital Signs Initial Vital Signs: Vital Signs Pulse Rate 66 12/25/22 15:57 Respiratory Rate 18 12/25/22 15:57 Blood Pressure 113/54 L 12/25/22 15:57 Pulse Oximetry 99 12/25/22 15:57 Oxygen Delivery Method Room Air 12/25/22 15:57 Const General: cooperative, comfortable and No ill appearing HENMT Head: normal to inspection and normocephalic Resp Effort & Inspection: normal respiratory effort Auscultation: clear to auscultation bilaterally Cardio Rate: regular rate Rhythm: regular rhythm GI Inspection: normal to inspection and non-distended Skin General: no rashes or lesions noted Neuro General: patient alert, patient awake and patient oriented x3 Extrem General: capillary refill normal Psych Appearance: grossly normal and well kempt Course Orders Ordered: ED Orders 12/25/22 15:57 XR chest 1V Stat 12/25/22 16:25 Complete Blood Count AUTO DIFF Stat Comprehensive Metabolic Panel Stat Reticulocyte Count, Percent Stat Discontinued Medications Hydromorphone HCl (Hydromorphone 1 Mg Inj) 1 mg IV NOW ONE Stop: 12/25/22 16:03 Last Admin: 12/25/22 16:08 Dose: 1 mg Documented By: JOSE Hydromorphone HCl (Hydromorphone 0.5 Mg Inj) 0.5 mg IV NOW ONE Stop: 12/25/22 17:32 Last Admin: 12/25/22 17:39 Dose: 0.5 mg Documented By: JOSE Sodium Chloride (Normal Saline 0.9%) 1,000 mls @ 1,000 mls/hr IV BOLUS ONE Stop: 12/25/22 16:55 Last Infusion: 12/25/22 17:37 Dose: 0 mls/hr Documented By: Admin: 12/25/22 16:08 Dose: 1,000 mls/hr Documented By: JOSE Vital Signs Vital signs: Vital Signs - 8 hr 12/25/22 15:57 12/25/22 16:19 12/25/22 17:00 Pulse Rate 66 76 64 Respiratory Rate 18 Blood Pressure 113/54 L Pulse Oximetry 99 99 97 Oxygen Delivery Method Room Air Room Air 12/25/22 17:30 12/25/22 17:43 12/25/22 17:43 Pulse Rate 74 75 Respiratory Rate Blood Pressure 101/59 L Pulse Oximetry 99 97 Oxygen Delivery Method Medical Decision Making Medical Records Medical records reviewed: Yes I reviewed the patient's medical records. Lab Data Lab results reviewed: Yes I reviewed the patient's lab results. 12/25/22 16:25 12/25/22 16:25 Labs: Lab Results 12/25/22 12/25/22 12/25/22 Range/Units 16:25 16:25 16:25 WBC 9.4 (4.5-11.0) X10^3/uL RBC 3.68 L (4.5-5.9) X10^6/uL Hgb 9.3 L (13.5-17.5) g/dL Hct 27.3 L (41-53) % MCV 74.3 L (80-100) fL MCH 25.3 L (26-34) PG MCHC 34.1 (30-36) % RDW 17.9 H (11.6-14.8) % Plt Count 268 (150-400) X10^3/uL Neut % (Auto) Not Reportable Lymph % (Auto) Not Reportable [place] % (Auto) Not Reportable Eos % (Auto) Not Reportable Baso % (Auto) Not Reportable Lymph # (Auto) Not Reportable [place] # (Auto) Not Reportable Baso # (Auto) Not Reportable Total Counted 100 Seg Neutrophils % 38.0 (38-70) % Lymphocytes % (Manual) 49.0 H (25-45) % Atypical Lymphs % 2.0 H ( - 0) % Monocytes % (Manual) 8.0 (2-11) % Eosinophils % (Manual) 3.0 (2-4) % Neutrophils # (Manual) 3572 (0272-2260) /uL RBC Morphology See below Poikilocytosis 4+ H Anisocytosis 3+ H Microcytosis 2+ H Sickle Cells 2+ H Target Cells 2+ H Ovalocytes 1+ H Percent Retic 7.0 H (0.9-2.6) % Sodium 137 (137-145) mmol/L Potassium 4.0 (3.4-5.1) mmol/L Chloride 103 (98-107) mmol/L Carbon Dioxide 27 (22-32) mmol/L BUN 5 L (9-20) mg/dL Creatinine 0.62 L (0.66-1.25) mg/dL Estimated GFR > 60 (>60) mL/min BUN/Creatinine Ratio 8.1 (6-22) Glucose 83 (70-100) mg/dL Calcium 8.6 (8.4-10.2) mg/dL Total Bilirubin 2.5 H (0.2-1.3) mg/dL AST 47 (17-59) IU/L ALT 25 (<50) IU/L Alkaline Phosphatase 71 (38-126) U/L Total Protein 7.9 (6.3-8.2) g/dL Albumin 4.0 (3.5-5.0) g/dL Globulin 3.9 (1.7-4.1) g/dL Albumin/Globulin Ratio 1.0 (1.0-2.8) Imaging Data Chest x-ray: Radiologist's Impression: PROCEDURE:? XR CHEST 1V ? INDICATIONS:? Sickle cell patient in acute crisis ? TECHNIQUE:? One view of the chest was acquired.? ? COMPARISON:? [facility], CT, CT ANGIO CHEST PE PROTOCOL, 12/09/2022, 23:56.? [facility], CR, XR CHEST 1V, 12/09/2022, 18:16. ? FINDINGS:? ? Surgical changes and devices:? None.? ? Lungs and pleura:? No focal infiltrates are seen.? No significant interstitial prominence.? No pleural effusions or pneumothorax.? ? Mediastinum:? Mediastinal contours appear normal.? Heart size is normal.? ? Bones and chest wall:? Areas of bony irregularity and sclerosis are seen, which are better demonstrated by CT.? Overlying soft tissues appear unremarkable.? IMPRESSION:? ? No acute cardiopulmonary process is seen.? ? Bony changes are noted, which are much better seen by CT.? MDM Narrative Medical decision making narrative: Patient does not have any findings today consistent with acute chest. He is not hypoxic. No chest pain. No shortness of breath. No cough. No fevers. Patient is at his baseline anemia. Reticulocyte count is same as what it has been. Patient states he does feel well enough to go home. Will discharge home with pain medication. I did reiterate that he needs to make contact with the primary doctor. He states he has talked with his insurance company about this. No indication for antibiotics. Discharge Plan Departure Patient Disposition: Home Clinical Impression: Sickle cell anemia with crisis Instructions: DI for Sickle Cell Anemia, Pain Crisis -- Adult Activity Restrictions/Additional Instructions: It is important that you may contact with a primary care doctor for long-term management of your sickle cell disease. You will most likely need a referral to see pain management. Be sure that you were staying hydrated and continue to take any medications as directed. Return to the emergency department for new symptoms. Prescriptions: New hydrocodone-acetaminophen 5-325 mg tablet 1 tab PO Q8H PRN (Reason: pain) Qty: 14 0RF No Action hydrocodone-acetaminophen 5-325 mg tablet 1 tab PO Q6H PRN (Reason: pain) Qty: 20 0RF Referrals: Evens Valdez MD [Primary Care Provider] - Stand Alone Forms: Patient Portal/API
[2022-12-25] MEDS: HYDROMORPHONE 1 MG INJ IV (16:08)
[2022-12-25] MEDS: SODIUM CHLORIDE 0.9% 1,000 ML 1000 ML IV (16:08)
[2022-12-25 16:19] VITALS: PULSE 76; O2SAT 99
[2022-12-25 16:50] LABS: Hematocrit 27.3 % (41-53); Hemoglobin 9.3 g/dL (13.5-17.5); Mean Corpuscular HGB Conc 34.1 % (30-36); Mean Corpuscular Hemoglobin 25.3 PG (26-34); Mean Corpuscular Volume 74.3 fL (80-100); Platelet Count 268 X10^3/uL (150-400); Red Blood Cell Count 3.68 X10^6/uL (4.5-5.9); Red Cell Distribution Width 17.9 % (11.6-14.8); White Blood Cell Count 9.4 X10^3/uL (4.5-11.0)
[2022-12-25 16:53] LABS: Add Manual Diff / Slide Review YES
[2022-12-25 16:55] LABS: Alanine Aminotransferase 25 IU/L (<50); Alkaline Phosphatase 71 U/L (38-126); Aspartate Aminotransferase 47 IU/L (17-59); BUN Creatinine Ratio 8.1 (6-22); Bilirubin Total 2.5 mg/dL (0.2-1.3); Blood Urea Nitrogen 5 mg/dL (9-20); Calcium 8.6 mg/dL (8.4-10.2); Carbon Dioxide 27 mmol/L (22-32); Chloride 103 mmol/L (98-107); Estimated Glomerular Filt Rate > 60 mL/min (>60); Globulin 3.9 g/dL (1.7-4.1); Glucose 83 mg/dL (70-100); HEMOLYSIS < 15 (0-50); Sodium 137 mmol/L (137-145); Total Protein 7.9 g/dL (6.3-8.2)
[2022-12-25 17:00] VITALS: PULSE 64; O2SAT 97
[2022-12-25 17:27] LABS: Neutrophils Absolute Manual 3572 /uL (3000-5900); Total Cells Counted 100
[2022-12-25 17:30] VITALS: PULSE 74; O2SAT 99
[2022-12-25 17:30] LABS: Anisocytosis 3+; Microcytosis 2+; Ovalocytes 1+; Poikilocytosis 4+
[2022-12-25 17:31] LABS: Sickle Cells 2+
[2022-12-25 17:32] LABS: Target Cells 2+
[2022-12-25] MEDS: HYDROMORPHONE 0.5 MG INJ IV (17:39)
[2022-12-25 17:43] VITALS: BP 101/59; PULSE 75; O2SAT 97
[2022-12-25 18:00] VITALS: BP 97/51; PULSE 65; O2SAT 96
== END 2022-12-25 18:21 | disposition home or self-care (01) ==
PROVIDERS: Emergency Provider Emergency Medicine; PCP Family Medicine
DX: D57.00 Hb-SS disease with crisis, unspecified (principal)
CPT/HCPCS: 36415; 71045; 80053; 85007; 85025; 85045; 96361; 96374; 96376; 99283; 99284; J1170

== ENCOUNTER 2023-02-01 14:43 | Emergency (ER) | payer OTHER, MEDICAID, SELFPAY ==
[2023-02-01] VITALS (9 sets, daily range): BP systolic 99–109; BP diastolic 55–62; PULSE 57–83; RESP 20; TEMP 36.6; O2SAT 97–100; BMI 18.6
--- NOTE | 2023-02-01 15:11 | ED_ITS ---
HPI - Extremity Problem General Chief complaint: Extremity Problem,Nontraumatic Stated complaint: Back/Leg pain, shaking, feeling unwell Time Seen by Provider: 02/01/23 15:11 Source: patient Mode of arrival: Ambulatory History of Present Illness HPI Narrative: 22-year-old male nonsmoker with history of stroke at age 1 with left sided de ficit, sickle cell presents with a chief complaint of concern of a sickle crisis. He states that for the past few days he has been aching in his back and his legs. Denies any chest pain or shortness of breath. He denies any fever or chills. He denies nausea, vomiting or diarrhea but does state that his stools have been a bit more liquidy than normal. He denies any dysuria, frequency or urgency. He does not have a primary care provider but is working with insurance to establish Related Data Previous Rx's Medication Instructions Recorded hydrocodone 5 mg-acetaminophen 325 1 tab PO Q6H PRN pain #20 tabs 12/06/22 mg tablet hydrocodone 5 mg-acetaminophen 325 1 tab PO Q8H PRN pain #14 tabs 12/25/22 mg tablet hydrocodone 5 mg-acetaminophen 325 1 tab PO Q4-6H PRN pain #10 tabs 02/01/23 mg tablet Allergies Allergy/AdvReac Type Severity Reaction Status Date / Time No Known Drug Allergies Allergy Verified 12/09/22 18:03 Review of Systems Review of Systems Narrative: GENERAL: Denies chills, fatigue, malaise, fever, sweats. HEENT: Denies sinus pain, ear pain, sore throat, difficulty swallowing, dizziness. RESPIRATORY: Denies dyspnea, cough, wheezing, hemoptysis, sputum. CARDIOVASCULAR: Denies chest pain, palpitations, orthopnea, edema, GASTROINTESTINAL: Denies nausea, vomiting, abdominal pain, diarrhea, constipation, melena. : Denies dysuria, frequency, incontinence, hematuria, urinary retention. MUSCULOSKELETAL: See HPI SKIN: Denies rash, skin lesions, or other NEUROLOGIC: Denies weakness, headache, numbness, change in speech, confusion, seizures, incoordination. PSYCHIATRIC: No concerning psychosocial issues. 12 point review of systems is negative except for those stated above Patient History Social History Smoking Status: Never smoker Smoking Status: Never smoker alcohol intake frequency: holidays/special occasions only Substance Use Type: marijuana Exam Narrative Exam Narrative: GENERAL: [22] year old patient appears stated age. Well-developed patient, in mild distress. HEAD: Atraumatic. Normocephalic. EYES: Pupils equal round and reactive. Extraocular motions intact. No scleral icterus. No injection or drainage. ENT: Nose without bleeding, purulent drainage. Throat without erythema, tonsillar hypertrophy or exudate. Airway patent. NECK: Trachea midline. Non tender CARDIOVASCULAR: Regular rate and rhythm without murmurs, gallops, or rubs. RESPIRATORY: Clear to auscultation. Breath sounds equal bilaterally. No wheezes, rales, or rhonchi. GASTROINTESTINAL: Abdomen soft, non-tender, nondistended. EXTREMITIES: No edema or joint tenderness. BACK: Nontender without deformity or crepitance. No flank tenderness. NEURO: AOx3. SKIN: No rash or erythema of visible areas Initial Vital Signs Initial Vital Signs: Vital Signs Temperature 97.8 F 02/01/23 14:54 Pulse Rate 67 02/01/23 14:54 Respiratory Rate 20 02/01/23 14:54 Blood Pressure 109/55 L 02/01/23 14:54 Pulse Oximetry 100 02/01/23 14:54 Oxygen Delivery Method Room Air 02/01/23 14:54 Course Orders Ordered: Discontinued Medications Hydromorphone HCl (Hydromorphone 1 Mg Inj) 1 mg IV NOW ONE Stop: 02/01/23 15:12 Last Admin: 02/01/23 15:20 Dose: 1 mg Documented By: CTS Hydromorphone HCl (Hydromorphone 1 Mg Inj) 1 mg IV NOW ONE Stop: 02/01/23 16:04 Last Admin: 02/01/23 16:17 Dose: 1 mg Documented By: SPF Sodium Chloride (Normal Saline 0.9%) 1,000 mls @ 1,000 mls/hr IV BOLUS ONE Stop: 02/01/23 16:10 Last Infusion: 02/01/23 16:26 Dose: 0 mls/hr Documented By: Admin: 02/01/23 15:20 Dose: 1,000 mls/hr Documented By: CTS Sodium Chloride (Normal Saline 0.9%) 1,000 mls @ 1,000 mls/hr IV BOLUS ONE Stop: 02/01/23 17:17 Last Infusion: 02/01/23 17:39 Dose: 0 mls/hr Documented By: Admin: 02/01/23 16:27 Dose: 1,000 mls/hr Documented By: BRITTNI Vital Signs Vital signs: Vital Signs - 8 hr 02/01/23 14:54 Temperature 97.8 F Pulse Rate 67 Respiratory Rate 20 Blood Pressure 109/55 L Pulse Oximetry 100 Oxygen Delivery Method Room Air MDM - Extremity (Nontraumatic) Lab Data 02/01/23 15:11 02/01/23 15:11 Labs: Lab Results 02/01/23 02/01/23 02/01/23 Range/Units 15:11 15:11 15:11 WBC 10.0 (4.5-11.0) X10^3/uL RBC 4.01 L (4.5-5.9) X10^6/uL Hgb 10.0 L (13.5-17.5) g/dL Hct 29.8 L (41-53) % MCV 74.3 L (80-100) fL MCH 25.1 L (26-34) PG MCHC 33.8 (30-36) % RDW 18.2 H (11.6-14.8) % Plt Count 215 (150-400) X10^3/uL Neut % (Auto) 46.1 L (50-75) % Lymph % (Auto) 38.7 (25-40) % [place] % (Auto) 12.4 (3-14) % Eos % (Auto) 1.9 L (2-4) % Baso % (Auto) 0.9 (0-2) % Neut # (Auto) 4600 (3443-4490) /uL Lymph # (Auto) 3900 (1264-5280) /uL [place] # (Auto) 1200 H (0-900) /uL Eos # (Auto) 200 (0-450) /uL Baso # (Auto) 100 (0-100) /uL RBC Morphology See below Poikilocytosis 2+ H Anisocytosis 3+ H Sickle Cells 1+ H Target Cells 2+ H Percent Retic 6.1 H (0.9-2.6) % Sodium 138 (137-145) mmol/L Potassium 4.5 (3.4-5.1) mmol/L Chloride 107 (98-107) mmol/L Carbon Dioxide 23 (22-32) mmol/L BUN 5 L (9-20) mg/dL Creatinine 0.64 L (0.66-1.25) mg/dL Estimated GFR > 60 (>60) mL/min BUN/Creatinine Ratio 7.8 (6-22) Glucose 84 (70-100) mg/dL Calcium 8.5 (8.4-10.2) mg/dL Total Bilirubin 2.9 H (0.2-1.3) mg/dL AST 68 H (17-59) IU/L ALT 29 (<50) IU/L Alkaline Phosphatase 69 (38-126) U/L Total Protein 8.2 (6.3-8.2) g/dL Albumin 4.3 (3.5-5.0) g/dL Globulin 3.9 (1.7-4.1) g/dL Albumin/Globulin Ratio 1.1 (1.0-2.8) Urine Dip Bedside Urine Glucose Negative Bedside Urine Bilirubin - Negative Bedside Urine Ketone - Negative Urine Specific [place] 1.010 Bedside Urine Occult Blood - Negative Bedside Urine pH 7.0 Bedside Urine Protein - Negative Bedside Urine Urobilinogen - Negative Bedside Urine Nitrite - Negative Bedside Urine Leukocytes - Negative Esterase MDM Narrative Medical decision making narrative: [22] year old patient presents with concerns of sickle crisis Multiple etiologies for patient's symptoms considered including, but not limited to: Sickle crisis versus UTI versus kidney stone versus musculoskeletal versus other [] Prior Charts reviewed in our EMR Primary Historian: patient Labs reviewed and interpreted by myself: Hemoglobin and hematocrit are stable, retic count 6.1%, electrolytes and renal function at baseline Imaging reviewed: Chest x-ray without acute findings Patient's symptoms improved over duration of stay with above-stated therapies. Pain is well tolerated, patient tolerating orals, no evidence of critical findings requiring hospitalization or further intervention Findings and discharge diagnosis discussed with patient/family followed by verbalization of understanding Return precautions discussed with patient/family whom verbalize understanding of diagnosis and plan Discharge Plan Departure Patient Disposition: Home Clinical Impression: Sickle cell crisis Instructions: DI for Sickle Cell Anemia, Pain Crisis -- Adult Activity Restrictions/Additional Instructions: *You have been diagnosed with [sickle cell anemia with crisis.] *What to do: *Please continue to take your regular medications as directed. [x ] New medication prescriptions sent to your pharmacy: [facility] ] [ ] New medication written as a paper prescription [ ] No new medications given *Please follow up with your primary care provider in 2-3 days, call for an appointment. Let them know you were seen in the Emergency Department and that we ask that you be seen in follow up. We will electronically transmit a record of today's note if your PCP is in our system *If you do not have a primary care provider please contact the [facility] Resource line at [phone]. They will ask some questions about your medical history and help get you set up with a doctor in the community. *Return to Emergency Department if you should have any new, worsening or concerning symptoms, such as [fever greater than 101 F, shaking chills, worsening pain, persistent vomiting or other bothersome symptoms] Prescriptions: New hydrocodone-acetaminophen 5-325 mg tablet 1 tab PO Q4-6H PRN (Reason: pain) Qty: 10 0RF No Action hydrocodone-acetaminophen 5-325 mg tablet 1 tab PO Q6H PRN (Reason: pain) Qty: 20 0RF hydrocodone-acetaminophen 5-325 mg tablet 1 tab PO Q8H PRN (Reason: pain) Qty: 14 0RF Referrals: Evens Valdez MD [Primary Care Provider] - Stand Alone Forms: Patient Portal/API, Work Release Note
--- NOTE | 2023-02-01 15:12 | DI.RAD.S_ITS ---
PROCEDURE: XR CHEST 1V INDICATIONS: fatigue, pain, sickle cell TECHNIQUE: One view of the chest was acquired. COMPARISON: [facility], CR, XR CHEST 1V, 12/25/2022, 15:56. FINDINGS: Surgical changes and devices: None. Lungs and pleura: Lungs are clear. No pleural effusions or pneumothorax. Mediastinum: Mediastinal contours appear normal. Heart size is normal. Bones and chest wall: No suspicious bony lesions. Overlying soft tissues appear unremarkable. No acute osseous abnormalities. Left humeral head deformity likely sequela of sickle cell. IMPRESSION: Stable radiographic evaluation of the chest without acute cardiopulmonary abnormalities or focal airspace disease. Dictated by: Patrice Wang M.D. on 02/01/2023 at 16:24 Approved by: Patrice Wang M.D. on 02/01/2023 at 16:26
[2023-02-01] MEDS: HYDROMORPHONE 1 MG INJ IV ×2 (15:20→16:17)
[2023-02-01] MEDS: SODIUM CHLORIDE 0.9% 1,000 ML 1000 ML IV ×2 (15:20→16:27)
[2023-02-01 15:42] LABS: Basophils Absolute Auto 100 /uL (0-100); Basophils Percent Auto 0.9 % (0-2); Eosinophils Absolute Auto 200 /uL (0-450); Eosinophils Percent Auto 1.9 % (2-4); Hematocrit 29.8 % (41-53); Lymphocytes Absolute Auto 3900 /uL (1100-4500); Lymphocytes Percent Auto 38.7 % (25-40); Mean Corpuscular HGB Conc 33.8 % (30-36); Mean Corpuscular Hemoglobin 25.1 PG (26-34); Mean Corpuscular Volume 74.3 fL (80-100); Monocytes Absolute Auto 1200 /uL (0-900); Monocytes Percent Auto 12.4 % (3-14); Neutrophils Absolute Auto 4600 /uL (1500-7000); Neutrophils Percent Auto 46.1 % (50-75); Platelet Count 215 X10^3/uL (150-400); Red Blood Cell Count 4.01 X10^6/uL (4.5-5.9); Red Cell Distribution Width 18.2 % (11.6-14.8)
[2023-02-01 15:44] LABS: Add Manual Diff / Slide Review SLIDE REVIEW; Alanine Aminotransferase 29 IU/L (<50); Albumin 4.3 g/dL (3.5-5.0); Albumin Globulin Ratio 1.1 (1.0-2.8); Alkaline Phosphatase 69 U/L (38-126); Aspartate Aminotransferase 68 IU/L (17-59); BUN Creatinine Ratio 7.8 (6-22); Bilirubin Total 2.9 mg/dL (0.2-1.3); Blood Urea Nitrogen 5 mg/dL (9-20); Calcium 8.5 mg/dL (8.4-10.2); Carbon Dioxide 23 mmol/L (22-32); Chloride 107 mmol/L (98-107); Estimated Glomerular Filt Rate > 60 mL/min (>60); Globulin 3.9 g/dL (1.7-4.1); Glucose 84 mg/dL (70-100); Potassium 4.5 mmol/L (3.4-5.1); Sodium 138 mmol/L (137-145); Total Protein 8.2 g/dL (6.3-8.2)
[2023-02-01 15:47] LABS: HEMOLYSIS 51 (0-50)
[2023-02-01 15:49] LABS: Reticulocyte Count, Percent 6.1 % (0.9-2.6)
[2023-02-01 16:16] LABS: Poikilocytosis 2+
[2023-02-01 16:17] LABS: Sickle Cells 1+
[2023-02-01 16:18] LABS: Anisocytosis 3+; Target Cells 2+
== END 2023-02-01 17:47 | disposition home or self-care (01) ==
PROVIDERS: Emergency Provider Emergency Medicine; PCP Family Medicine
DX: D57.00 Hb-SS disease with crisis, unspecified (principal)
CPT/HCPCS: 36415; 71045; 80053; 81003; 85025; 85045; 96361; 96374; 96376; 99284; J1170

== ENCOUNTER 2023-02-11 20:47 | Emergency (ER) | payer OTHER, MEDICAID, SELFPAY ==
[2023-02-11 20:54] VITALS: BP 95/55; PULSE 61; RESP 18; TEMP 36.7; O2SAT 100; BMI 18.6
--- NOTE | 2023-02-11 20:58 | DI.RAD.S_ITS ---
PROCEDURE: XR HIP W PEL IF DONE RT 2V INDICATIONS: R hip pain, prior surgery, no injury TECHNIQUE: AP pelvis with lateral view(s) of the right hip(s). COMPARISON: [facility], , XR HIP W PEL IF DONE LT 2V, 04/27/2021, 14:11. FINDINGS: Bones: No fractures or dislocations. Pelvic ring appears intact. No suspicious bony lesions. Soft tissues: The visualized bowel gas pattern is normal. No suspicious soft tissue calcifications. IMPRESSION: Prior right total hip arthroplasty. Chronic degenerative changes left hip. No acute trauma found. Dictated by: Daniel Johnson M.D. on 02/11/2023 at 21:36 Approved by: Daniel Johnson M.D. on 02/11/2023 at 21:37
--- NOTE | 2023-02-11 20:58 | ED.EXTPRO ---
HPI - Extremity Problem General Chief complaint: Extremity Problem,Nontraumatic Stated complaint: Hip replacement 2018, Pain Time Seen by Provider: 02/11/23 20:50 Source: patient Mode of arrival: Ambulatory History of Present Illness HPI Narrative: 22-year-old male nonsmoker with history of stroke at age 1 with left sided deficit, sickle cell presents with a chief complaint of concern?of right hip pain. 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 He denies any trauma or injury but states that he was on his feet at work and over the course of the day he developed increasing pain with standing and ambulation. He took 1 of his hydrocodone which did not seem to help much. He came here for help. He denies any chest pain or shortness of breath. Denies any hip or back pain. He is had no fever or chills. He denies numbness, tingling or weakness. Related Data Previous Rx's Medication Instructions Recorded hydrocodone 5 mg-acetaminophen 325 1 tab PO Q6H PRN pain #20 tabs 12/06/ mg tablet hydrocodone 5 mg-acetaminophen 325 1 tab PO Q8H PRN pain #14 tabs // mg tablet hydrocodone 5 mg-acetaminophen 325 1 tab PO Q4-6H PRN pain #10 tabs // mg tablet Allergies Allergy/AdvReac Type Severity Reaction Status Date / Time No Known Drug Allergies Allergy Verified 02/11/23 20:54 Review of Systems Review of Systems Narrative: GENERAL: Denies chills, fatigue, malaise, fever, sweats. HEENT: Denies sinus pain, ear pain, sore throat, difficulty swallowing, dizziness. RESPIRATORY: Denies dyspnea, cough, wheezing, hemoptysis, sputum. CARDIOVASCULAR: Denies chest pain, palpitations, orthopnea, edema, GASTROINTESTINAL: Denies nausea, vomiting, abdominal pain, diarrhea, constipation, melena. : Denies dysuria, frequency, incontinence, hematuria, urinary retention. MUSCULOSKELETAL: See HPI SKIN: Denies rash, skin lesions, or other NEUROLOGIC: Denies weakness, headache, numbness, change in speech, confusion, seizures, incoordination. PSYCHIATRIC: No concerning psychosocial issues. 12 point review of systems is negative except for those stated above Patient History Social History (Reviewed 02/11/23 @ 22:17 by COREY Gray Smoking Status: Never smoker Smoking Status: Never smoker alcohol intake frequency: holidays/special occasions only Substance Use Type: marijuana Exam Narrative Exam Narrative: GEN: AOx3 and in mild distress EYES: Pupils are equal, round, and reactive to light and accommodation. Extraoccular muscles are intact bilaterally. There is no subconjunctival hemorrhage or exudate. CHEST: Lungs are clear to auscultation bilaterally and free of wheezes, rales, or rhonchi. Heart rate is regular rhythm, there are no murmurs, clicks, rubs, or gallops. There is no chest wall tenderness. ABD: Abdomen is soft and nontender. There is no guarding or rebound. Bowel sounds are normal in all 4 quadrants. There is no mass or organomegaly. EXT: No obvious tenderness to palpation, nor shortening, rotation, numbness or tingling. There is pain with range of motion. SKIN: Warm, pink, and dry. No erythema or rash Initial Vital Signs Initial Vital Signs: Vital Signs Temperature 98.1 F 02/11/23 20:54 Pulse Rate 61 02/11/23 20:54 Respiratory Rate 18 02/11/23 20:54 Blood Pressure 95/55 L 02/11/23 20:54 Pulse Oximetry 100 02/11/23 20:54 Oxygen Delivery Method Room Air 02/11/23 20:54 Course Orders Ordered: ED Orders 02/11/23 20:58 XR hip w pel if done RT 2V Stat Discontinued Medications Hydromorphone HCl (Hydromorphone 1 Mg Inj) 1 mg IM NOW ONE Stop: 02/11/23 22:09 Last Admin: 02/11/23 22:18 Dose: 1 mg Vital Signs Vital signs: Vital Signs - 8 hr 02/11/23 20:54 Temperature 98.1 F Pulse Rate 61 Respiratory Rate 18 Blood Pressure 95/55 L Pulse Oximetry 100 Oxygen Delivery Method Room Air MDM - Extremity (Nontraumatic) MDM Narrative Medical decision making narrative: [22] year old patient presents with right hip pain with prior surgery, no trauma or injury. No fever or chills Multiple etiologies for patient's symptoms considered including, but not limited to: [Fracture versus dislocation versus arthritic pain versus other] Prior Charts reviewed in our EMR Primary Historian: patient Imaging reviewed: No acute findings Patient's symptoms improved over duration of stay with above-stated therapies. Findings and discharge diagnosis discussed with patient/family followed by verbalization of understanding Return precautions discussed with patient/family whom verbalize understanding of diagnosis and plan Discharge Plan Departure Patient Disposition: Home Clinical Impression: Acute pain of right hip Instructions: DI for Hip Pain Activity Restrictions/Additional Instructions: *You have been diagnosed with [right hip pain. As we discussed your history and physical exam are reassuring. The x-ray demonstrates no abnormal finding.] *What to do: *Please continue to take your regular medications as directed. *Please follow up with your primary care provider in 2-3 days, call for an appointment. Let them know you were seen in the Emergency Department and that we ask that you be seen in follow up. We will electronically transmit a record of today's note if your PCP is in our system *Return to Emergency Department if you should have any new, worsening or concerning symptoms, such as [fever greater than 101 F, shaking chills, worsening pain, persistent vomiting or other bothersome symptoms] Prescriptions: No Action hydrocodone-acetaminophen 5-325 mg tablet 1 tab PO Q6H PRN (Reason: pain) Qty: 20 0RF hydrocodone-acetaminophen 5-325 mg tablet 1 tab PO Q8H PRN (Reason: pain) Qty: 14 0RF hydrocodone-acetaminophen 5-325 mg tablet 1 tab PO Q4-6H PRN (Reason: pain) Qty: 10 0RF Referrals: Evens Valdez MD [Primary Care Provider] - Stand Alone Forms: Patient Portal/API
[2023-02-11] MEDS: HYDROMORPHONE 1 MG INJ IM (22:18)
[2023-02-11 22:27] VITALS: BP 96/55; PULSE 61; RESP 17; O2SAT 100
== END 2023-02-11 22:30 | disposition home or self-care (01) ==
PROVIDERS: Emergency Provider Emergency Medicine; PCP Family Medicine
DX: M25.551 Pain in right hip (principal)
CPT/HCPCS: 73502; 96372; 99283; J1170

== ENCOUNTER 2023-03-22 15:06 | Emergency (ER) | payer OTHER, MEDICAID, SELFPAY ==
[2023-03-22 15:25] VITALS: BP 107/64; PULSE 72; RESP 18; TEMP 36.8; O2SAT 98; BMI 18.6
[2023-03-22] MEDS: ONDANSETRON 4 MG/2 ML INJ IV (17:17)
[2023-03-22] MEDS: SODIUM CHLORIDE 0.9% 2,000 ML 1000 ML IV (17:18)
[2023-03-22 17:52] LABS: Hematocrit 28.5 % (41-53); Hemoglobin 9.7 g/dL (13.5-17.5); Mean Corpuscular HGB Conc 34.2 % (30-36); Mean Corpuscular Hemoglobin 24.8 PG (26-34); Mean Corpuscular Volume 72.5 fL (80-100); Platelet Count 215 X10^3/uL (150-400); Red Blood Cell Count 3.93 X10^6/uL (4.5-5.9); Red Cell Distribution Width 18.6 % (11.6-14.8); White Blood Cell Count 10.8 X10^3/uL (4.5-11.0)
[2023-03-22 17:56] LABS: Add Manual Diff / Slide Review YES
[2023-03-22 18:09] LABS: Reticulocyte Count, Percent 7.9 % (0.9-2.6)
[2023-03-22 18:13] LABS: Neutrophils Absolute Manual 6804 /uL (3000-5900); Nucleated Red Blood Cells 4 #/Diff; Total Cells Counted 100
[2023-03-22 18:14] LABS: Anisocytosis 1+; Howell Jolly Bodies 1+
[2023-03-22 18:15] LABS: Sickle Cells 2+
[2023-03-22 18:16] LABS: Microcytosis 1+; Target Cells 1+
[2023-03-22 18:17] LABS: Polychromasia 1+
[2023-03-22 18:18] LABS: Poikilocytosis 2+
[2023-03-22 18:19] LABS: Schistocytes 1+
[2023-03-22 18:23] LABS: Alanine Aminotransferase 53 IU/L (<50); Albumin 4.8 g/dL (3.5-5.0); Albumin Globulin Ratio 1.1 (1.0-2.8); Alkaline Phosphatase 92 U/L (38-126); Aspartate Aminotransferase 99 IU/L (17-59); BUN Creatinine Ratio 11.5 (6-22); Bilirubin Total 3.7 mg/dL (0.2-1.3); Blood Urea Nitrogen 7 mg/dL (9-20); Calcium 8.7 mg/dL (8.4-10.2); Carbon Dioxide 24 mmol/L (22-32); Chloride 104 mmol/L (98-107); Estimated Glomerular Filt Rate > 60 mL/min (>60); Globulin 4.3 g/dL (1.7-4.1); Glucose 76 mg/dL (70-100); HEMOLYSIS < 15 (0-50); Potassium 3.8 mmol/L (3.4-5.1); Sodium 137 mmol/L (137-145); Total Protein 9.1 g/dL (6.3-8.2)
[2023-03-22] MEDS: HYDROMORPHONE 1 MG INJ IV (18:42)
[2023-03-22 18:43] VITALS: BP 113/68; PULSE 66; RESP 16; O2SAT 98
--- NOTE | 2023-03-22 20:00 | ED_ITS ---
HPI - Nausea/Vomiting/Diarrhea General Chief complaint: Nausea/Vomiting/Diarrhea Stated complaint: sickle cell/N Time Seen by Provider: 03/22/23 18:37 Source: patient Mode of arrival: Ambulatory History of Present Illness HPI Narrative: Patient 22-year-old male history of sickle cell disease presenting with back pain along with some nausea. He thinks that it might be a sickle cell flare up he apparently was seen at would be a couple days ago. He reports that his father is sick with cancer and he has been under a lot of stress. He has been given IV fluids and Dilaudid at this time reports that symptoms are improving. He denies any fever or chills. He is noted to be talking on his cell phone to multiple people in the hallway. He denies any chest pain or shortness of breath. He denies any painful frequent urination no CVA tenderness. Related Data Previous Rx's Medication Instructions Recorded hydrocodone 5 mg-acetaminophen 325 1 tab PO Q6H PRN pain #20 tabs // mg tablet hydrocodone 5 mg-acetaminophen 325 1 tab PO Q8H PRN pain #14 tabs 05/14/23 mg tablet hydrocodone 5 mg-acetaminophen 325 1 tab PO Q4-6H PRN pain #10 tabs // mg tablet Allergies Allergy/AdvReac Type Severity Reaction Status Date / Time No Known Drug Allergies Allergy Verified 02/11/23 20:54 Review of Systems Review of Systems ROS Unobtainable: All systems reviewed & are unremarkable except as noted in HPI and below Patient History Social History Smoking Status: Never smoker Smoking Status: Never smoker alcohol intake frequency: holidays/special occasions only Substance Use Type: marijuana Exam Initial Vital Signs Initial Vital Signs: Vital Signs Temperature 98.3 F 03/22/23 15:25 Pulse Rate 72 03/22/23 15:25 Respiratory Rate 18 03/22/23 15:25 Blood Pressure 107/64 03/22/23 15:25 Pulse Oximetry 98 03/22/23 15:25 Oxygen Delivery Method Room Air 03/22/23 15:25 GENERAL: Alert well-appearing 22-year-old male HEENT: Head atraumatic,EOMI, pupils reactive, face symmetric, moist mucous membranes CARDIOVASCULAR: Regular rate and rhythm without murmurs, rubs or gallops. RESPIRATORY: Breath sounds equal bilaterally, no wheezes rales or rhonchi. ABDOMEN: Soft, nontender. Normoactive bowel sounds all 4 quadrants. No guarding or rebound. BACK: No vertebral tenderness tender all across all along lumbar area : No CVA tenderness EXTREMITIES: Normal range of motion, no clubbing or edema. Neurovascularly intact NEUROLOGICAL: Alert and oriented x4. SKIN: Warm, dry, no laceration, no petechiae, no rashes or lesions. Course Orders Ordered: Discontinued Medications Hydromorphone HCl (Hydromorphone 1 Mg Inj) 1 mg IV NOW ONE Stop: 03/22/23 18:38 Last Admin: 03/22/23 18:42 Dose: 1 mg Documented By: BRIGITTE Hydromorphone HCl (Hydromorphone 0.5 Mg Inj) 0.5 mg IV NOW ONE Stop: 03/22/23 20:01 Last Admin: 03/22/23 20:04 Dose: 0.5 mg Documented By: KRISTI Sodium Chloride (Normal Saline 0.9%) 2,000 mls @ 1,000 mls/hr IV BOLUS ONE Stop: 03/22/23 19:11 Last Infusion: 03/22/23 20:02 Dose: 0 mls/hr Documented By: Admin: 03/22/23 17:18 Dose: 1,000 mls/hr Documented By: MOLLY Ondansetron HCl (Ondansetron 4 Mg/2 Ml Inj) 4 mg IV NOW ONE Stop: 03/22/23 17:13 Last Admin: 03/22/23 17:17 Dose: 4 mg Documented By: MOLLY Vital Signs Vital signs: Vital Signs - 8 hr 03/22/23 15:25 03/22/23 18:43 Temperature 98.3 F Pulse Rate 72 66 Respiratory Rate 18 16 Blood Pressure 107/64 113/68 Pulse Oximetry 98 98 Oxygen Delivery Method Room Air Room Air MDM - Nausea/Vomiting/Diarrhea Lab Data 03/22/23 17:38 03/22/23 17:38 Labs: Lab Results 03/22/23 03/22/23 03/22/23 Range/Units 17:38 17:38 17:38 WBC 10.8 (4.5-11.0) X10^3/uL RBC 3.93 L (4.5-5.9) X10^6/uL Hgb 9.7 L (13.5-17.5) g/dL Hct 28.5 L (41-53) % MCV 72.5 L (80-100) fL MCH 24.8 L (26-34) PG MCHC 34.2 (30-36) % RDW 18.6 H (11.6-14.8) % Plt Count 215 (150-400) X10^3/uL Neut % (Auto) Not Reportable Lymph % (Auto) Not Reportable [place] % (Auto) Not Reportable Eos % (Auto) Not Reportable Baso % (Auto) Not Reportable Lymph # (Auto) Not Reportable [place] # (Auto) Not Reportable Baso # (Auto) Not Reportable Total Counted 100 Seg Neutrophils % 63.0 (38-70) % Lymphocytes % (Manual) 27.0 (25-45) % Monocytes % (Manual) 9.0 (2-11) % Basophils % (Manual) 1.0 (0-1) % Neutrophils # (Manual) 6804 H (5566-4292) /uL Nucleated RBCs 4 H ( - 0) #/Diff RBC Morphology See below Polychromasia 1+ H Poikilocytosis 2+ H Anisocytosis 1+ H Microcytosis 1+ H Sickle Cells 2+ H Target Cells 1+ H [place] Bodies 1+ H Schistocytes 1+ H Percent Retic 7.9 H (0.9-2.6) % Sodium 137 (137-145) mmol/L Potassium 3.8 (3.4-5.1) mmol/L Chloride 104 (98-107) mmol/L Carbon Dioxide 24 (22-32) mmol/L BUN 7 L (9-20) mg/dL Creatinine 0.61 L (0.66-1.25) mg/dL Estimated GFR > 60 (>60) mL/min BUN/Creatinine Ratio 11.5 (6-22) Glucose 76 (70-100) mg/dL Calcium 8.7 (8.4-10.2) mg/dL Total Bilirubin 3.7 H (0.2-1.3) mg/dL AST 99 H (17-59) IU/L ALT 53 H (<50) IU/L Alkaline Phosphatase 92 (38-126) U/L Total Protein 9.1 H (6.3-8.2) g/dL Albumin 4.8 (3.5-5.0) g/dL Globulin 4.3 H (1.7-4.1) g/dL Albumin/Globulin Ratio 1.1 (1.0-2.8) MDM Narrative Medical decision making narrative: Patient 22-year-old male with known sickle cell disease now being seen here more regularly presents today with back pain. Thought to be due to stress from his ill father. Retic count is 7.9 higher than has been previously. Hemoglobin is stable no leukocytosis. He overall appears comfortable and well. Not having any chest pain or shortness of breath no evidence of acute chest. He has a complications from sickle cell as a small child. At this time I see no need for any further workup or evaluation he was given 2 doses of Dilaudid IV fluids in his overall feeling significantly better Discharge Plan Departure Patient Disposition: Home Clinical Impression: Sickle cell anemia Instructions: DI for Sickle Cell Anemia, Pain Crisis -- Adult Activity Restrictions/Additional Instructions: *You have been diagnosed with sickle cell *What to do: At this time stay hydrated *Continue to take medications as directed *Follow up with your primary care provider in 2-3 days or call [phone] *Return to ER if you should have increased pain fever shortness of breath or any new, worsening or concerning symptoms Prescriptions: No Action hydrocodone-acetaminophen 5-325 mg tablet 1 tab PO Q6H PRN (Reason: pain) Qty: 20 0RF hydrocodone-acetaminophen 5-325 mg tablet 1 tab PO Q8H PRN (Reason: pain) Qty: 14 0RF hydrocodone-acetaminophen 5-325 mg tablet 1 tab PO Q4-6H PRN (Reason: pain) Qty: 10 0RF Referrals: Evens Valdez MD [Primary Care Provider] - Stand Alone Forms: Patient Portal/API
[2023-03-22] MEDS: HYDROMORPHONE 0.5 MG INJ IV (20:04)
[2023-03-22 20:11] VITALS: BP 122/63; PULSE 80; RESP 16; O2SAT 98
== END 2023-03-22 20:14 | disposition home or self-care (01) ==
PROVIDERS: Emergency Medicine; Emergency Provider Emergency Medicine; PCP Family Medicine
DX: D57.1 Sickle-cell disease without crisis (principal); M54.9 Dorsalgia, unspecified; R11.2 Nausea with vomiting, unspecified
CPT/HCPCS: 36415; 80053; 85007; 85025; 85045; 96361; 96374; 96375; 96376; 99284; J1170; J2405

== ENCOUNTER 2023-07-01 12:41 | Emergency (ER) | payer OTHER, MEDICAID, SELFPAY ==
[2023-07-01] VITALS (8 sets, daily range): BP systolic 102–113; BP diastolic 55–67; PULSE 66–84; RESP 17; TEMP 36.6–36.8; O2SAT 95–100; BMI 18.6
--- NOTE | 2023-07-01 12:48 | ED_ITS ---
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 Patient states symptoms started in the last 12 hours. Denies fevers. No chest pain or shortness of breath. Denies any nausea or vomiting. No diarrhea constipation, no urinary symptoms. Patient states somewhat similar to typical sickle cell pain. He states sometimes gets pain in his hip but not today. Patient has had history significant for stroke at age 1, he is had prior splenectomy, cholecystectomy, surgery related to his prior stroke and right hip replacement. No known drug allergies. No tobacco, alcohol, no IV drugs does use marijuana. Patient is on penicillin, hydroxyurea and folic acid. Patient's primary care is Dr. Valdez. He does not follow with Hematology/Oncology currently but has followed with them in the past. Lives in the [facility]. Related Data Previous Rx's Medication Instructions Recorded hydrocodone 5 mg-acetaminophen 325 1 tab PO Q6H PRN pain #20 tabs 12/06/22 mg tablet hydrocodone 5 mg-acetaminophen 325 1 tab PO Q6H PRN pain #20 tabs 07/01/23 mg tablet hydroxyurea (sickle cell) 200 mg 200 mg PO DAILY #30 caps 07/01/23 capsule Allergies Allergy/AdvReac Type Severity Reaction Status Date / Time No Known Drug Allergies Allergy Verified 07/01/23 12:45 Review of Systems Review of Systems ROS Unobtainable: All systems reviewed & are unremarkable except as noted in HPI and below Patient History Social History Smoking Status: Never smoker Smoking Status: Never smoker alcohol intake frequency: holidays/special occasions only Substance Use Type: marijuana Exam Narrative Exam Narrative: GEN: well appearing thin male, alert and oriented x 3, patient appears to be in mild distress. HEENT: Atraumatic, pupils are equal round reactive to light, extraocular movements are intact, nares are clear, HEART: Regular rate and rhythm without murmur, clicks, rubs. LUNGS:Lungs clear to auscultation, no wheezes, rales, crackles, chest moves symmetrically, no tachypnea accessory muscle use. Speaks in full sentences. ABD:bowel sounds normal, soft, non-tender, no guarding, rebound, rigidity, no masses noted, no hepatosplenomegaly :No CVA tenderness MSCL: Non-tender, patient has atrophy of the left upper extremity with contractures, bilateral movement of bilateral lower extremities. NEURO:CN 2-12 intact, sensation normal SKIN: No rash, erythema or other skin changes. Initial Vital Signs Initial Vital Signs: Vital Signs Temperature 98.2 F 07/01/23 12:43 Pulse Rate 70 07/01/23 12:43 Respiratory Rate 17 07/01/23 12:43 Blood Pressure 102/62 07/01/23 12:43 Pulse Oximetry 99 07/01/23 12:43 Oxygen Delivery Method Room Air 07/01/23 12:43 Course Orders Ordered: ED Orders 07/01/23 13:03 Chest [XR chest 1V] Stat 07/01/23 13:13 CBC Auto Diff [Complete Blood Count AUTO DIFF] Stat CMP [Comprehensive Metabolic Panel] Stat LDH [Lactate Dehydrogenase] Stat RETIC [Reticulocyte Count, Percent] Stat Discontinued Medications Hydromorphone HCl (Hydromorphone 1 Mg Inj) 1 mg IV NOW ONE Stop: 07/01/23 12:58 Last Admin: 07/01/23 13:16 Dose: 1 mg Documented By: KJ Hydromorphone HCl (Hydromorphone 1 Mg Inj) 1 mg IV NOW ONE Stop: 07/01/23 14:01 Last Admin: 07/01/23 14:06 Dose: 1 mg Documented By: KJ Hydromorphone HCl (Hydromorphone 0.5 Mg Inj) 0.5 mg IV NOW ONE Stop: 07/01/23 15:34 Last Admin: 07/01/23 15:41 Dose: 0.5 mg Documented By: KJ Sodium Chloride (Normal Saline 0.9%) 1,000 mls @ 1,000 mls/hr IV BOLUS ONE Stop: 07/01/23 13:56 Last Infusion: 07/01/23 14:22 Dose: Infused Documented By: Admin: 07/01/23 13:15 Dose: 1,000 mls/hr Documented By: KJ Sodium Chloride (Normal Saline 0.9%) 1,000 mls @ 1,000 mls/hr IV BOLUS ONE Stop: 07/01/23 15:00 Last Infusion: 07/01/23 15:20 Dose: Infused Documented By: Admin: 07/01/23 14:06 Dose: 1,000 mls/hr Documented By: KJ Sodium Chloride (Normal Saline 0.9%) 1,000 mls @ 1,000 mls/hr IV BOLUS ONE Stop: 07/01/23 15:13 Last Infusion: 07/01/23 15:55 Dose: Infused Documented By: Admin: 07/01/23 14:56 Dose: 1,000 mls/hr Documented By: KJ Ondansetron HCl (Ondansetron 4 Mg/2 Ml Inj) 4 mg IV Q6HR PRN PRN Reason: Nausea And Vomiting Vital Signs Vital signs: Vital Signs - 8 hr 07/01/23 12:43 07/01/23 13:18 07/01/23 13:19 Temperature 98.2 F Pulse Rate 70 73 84 Respiratory Rate 17 Blood Pressure 102/62 Pulse Oximetry 99 98 97 Oxygen Delivery Method Room Air 07/01/23 13:19 07/01/23 13:30 07/01/23 13:30 Temperature Pulse Rate 70 Respiratory Rate Blood Pressure 105/67 106/59 L Pulse Oximetry 95 Oxygen Delivery Method 07/01/23 14:00 07/01/23 14:00 07/01/23 14:30 Temperature Pulse Rate 81 69 Respiratory Rate Blood Pressure 104/63 Pulse Oximetry 99 100 Oxygen Delivery Method 07/01/23 14:30 07/01/23 14:30 07/01/23 15:00 Temperature 97.8 F Pulse Rate 66 Respiratory Rate Blood Pressure 103/59 L Pulse Oximetry 100 Oxygen Delivery Method 07/01/23 15:00 07/01/23 15:30 07/01/23 15:30 Temperature Pulse Rate 83 Respiratory Rate Blood Pressure 111/55 L 113/57 L Pulse Oximetry 100 Oxygen Delivery Method MDM - Extremity (Nontraumatic) Lab Data 07/01/23 13:13 07/01/23 13:13 Labs: Lab Results 07/01/23 Range/Units 13:13 WBC 10.7 (4.5-11.0) X10^3/uL RBC 3.80 L (4.5-5.9) X10^6/uL Hgb 9.7 L (13.5-17.5) g/dL Hct 28.3 L (41-53) % MCV 74.5 L (80-100) fL MCH 25.6 L (26-34) PG MCHC 34.4 (30-36) % RDW 22.3 H (11.6-14.8) % Plt Count 237 (150-400) X10^3/uL Neut % (Auto) 63.0 (50-75) % Lymph % (Auto) 23.8 L (25-40) % [place] % (Auto) 12.3 (3-14) % Eos % (Auto) 0.2 L (2-4) % Baso % (Auto) 0.7 (0-2) % Neut # (Auto) 6700 (9536-7650) /uL Lymph # (Auto) 2500 (6833-5692) /uL [place] # (Auto) 1300 H (0-900) /uL Eos # (Auto) 0 (0-450) /uL Baso # (Auto) 100 (0-100) /uL Nucleated RBCs 1 H ( - 0) #/Diff RBC Morphology See below Anisocytosis 3+ H Microcytosis 1+ H Sickle Cells 2+ H Target Cells 2+ H Ovalocytes 1+ H Schistocytes 1+ H Percent Retic 9.0 H (0.9-2.6) % Sodium 136 L (137-145) mmol/L Potassium 4.0 (3.4-5.1) mmol/L Chloride 106 (98-107) mmol/L Carbon Dioxide 21 L (22-32) mmol/L BUN 3 L (9-20) mg/dL Creatinine 0.55 L (0.66-1.25) mg/dL Estimated GFR > 60 (>60) mL/min BUN/Creatinine Ratio 5.5 L (6-22) Glucose 93 (70-100) mg/dL Calcium 9.0 (8.4-10.2) mg/dL Total Bilirubin 2.8 H (0.2-1.3) mg/dL AST 60 H (17-59) IU/L ALT 30 (<50) IU/L Alkaline Phosphatase 70 (38-126) U/L Lactate Dehydrogenase 438 H (120-246) U/L Total Protein 8.4 H (6.3-8.2) g/dL Albumin 4.4 (3.5-5.0) g/dL Globulin 4.0 (1.7-4.1) g/dL Albumin/Globulin Ratio 1.1 (1.0-2.8) Urine Dip Bedside Urine Glucose Negative Bedside Urine Bilirubin - Negative Bedside Urine Ketone - Negative Urine Specific [place] 1.010 Bedside Urine Occult Blood - Negative Bedside Urine pH 7.5 Bedside Urine Protein - Negative Bedside Urine Urobilinogen - Negative Bedside Urine Nitrite - Negative Bedside Urine Leukocytes - Negative Esterase Imaging Data Chest x-ray: Radiologist's Impression: [address] [address] XRay Report Signed Patient: Lucretia Keller MR#: [id number] : 2000 Acct:[id number] Age/Sex: 22 / M Date of Service: 07/01/23 Loc: ED Accession Number: [id number] Procedure: XR chest 1V Ordering Provider: Beverley Kumar D.O. PROCEDURE: XR CHEST 1V INDICATIONS: sickle cell, pain right shoulder/neck/back TECHNIQUE: One view of the chest was acquired. COMPARISON: [facility], , XR CHEST 1V, 02/01/2023, 15:33. FINDINGS: Surgical changes and devices: None. Lungs and pleura: Lungs are clear. No pleural effusions or pneumothorax. Mediastinum: Mediastinal contours appear normal. Heart size is normal. Bones and chest wall: No suspicious bony lesions. Overlying soft tissues appear unremarkable. Osseous remodeling left humeral head is better seen on comparison radiograph. IMPRESSION: No acute cardiopulmonary abnormality is seen. Dictated by: Torsten Meraz M.D. on 07/01/2023 at 12:35 Approved by: Torsten Meraz M.D. on 07/01/2023 at 12:36 [facility] Narrative Medical decision making narrative: 22-year-old male with history of sickle cell prior splenectomy, cholecystectomy, prior hip replacement and stroke at age 1 with persistent hemiparesis. Patient's labs show stable hemoglobin no elevation of white count, platelets are appropriate reticulocyte count is 9 up from his past which have been in the 7 range. LFTs show a bilirubin of 2.8, consistent with priors, LDH is 438, renal function electrolytes are appropriate no other significant LFT changes. Chest x-ray is negative. Patient has been afebrile with negative chest x-ray. Patient received fluids, pain medication has had moderate improvement of pain but not complete resolution. He does note he is about to run out of his hydroxyurea he takes 200 mg daily but has been taking regularly. Spoke with Oncology who is happy to follow with him and take his referral. They recommend hydration which he is received and follow-up outpatient. Reviewed findings with patient and he is feeling improved and feels comfortable to return home. We will send refill for his hydroxyurea in the meantime. Discharge Plan Departure Patient Disposition: Home Clinical Impression: Sickle cell anemia Activity Restrictions/Additional Instructions: Please follow up with Hematology, call the number included below they are happy to follow-up with you. I spoke with Dr. Ratliff they would be happy to see you. Prescription for your hydroxyurea was sent to [facility] in [place]. Please return for fevers, worsening pain, new chest pain or shortness of breath, vomiting, new or worsening abdominal back or flank pain, dark urine, persistent vomiting or other new or concerning changes Prescriptions: New hydroxyurea (sickle cell) 200 mg capsule 200 mg PO DAILY Qty: 30 0RF hydrocodone-acetaminophen 5-325 mg tablet 1 tab PO Q6H PRN (Reason: pain) Qty: 20 0RF No Action hydrocodone-acetaminophen 5-325 mg tablet 1 tab PO Q6H PRN (Reason: pain) Qty: 20 0RF Referrals: Evens Valdez MD [Primary Care Provider] - Kyaw Ratliff MD [Physician] - Stand Alone Forms: Patient Portal/API
--- NOTE | 2023-07-01 13:03 | DI.RAD.S_ITS ---
PROCEDURE: XR CHEST 1V INDICATIONS: sickle cell, pain right shoulder/neck/back TECHNIQUE: One view of the chest was acquired. COMPARISON: [facility], CR, XR CHEST 1V, 02/01/2023, 15:33. FINDINGS: Surgical changes and devices: None. Lungs and pleura: Lungs are clear. No pleural effusions or pneumothorax. Mediastinum: Mediastinal contours appear normal. Heart size is normal. Bones and chest wall: No suspicious bony lesions. Overlying soft tissues appear unremarkable. Osseous remodeling left humeral head is better seen on comparison radiograph. IMPRESSION: No acute cardiopulmonary abnormality is seen. Dictated by: Torsten Meraz M.D. on 07/01/2023 at 12:35 Approved by: Torsten Meraz M.D. on 07/01/2023 at 12:36
[2023-07-01] MEDS: SODIUM CHLORIDE 0.9% 1,000 ML 1000 ML IV ×3 (13:15→14:56)
[2023-07-01] MEDS: HYDROMORPHONE 1 MG INJ IV ×2 (13:16→14:06)
--- NOTE | 2023-07-01 13:29 | PC.NURSE ---
pt awake, alert, reports generalized body pain, started last night, 04/23; no acute medical distress noted, VSS, on RA, cooperative with VS and IV placement. oriented to call light, encouraged to use call light.
[2023-07-01 13:36] LABS: Basophils Absolute Auto 100 /uL (0-100); Basophils Percent Auto 0.7 % (0-2); Eosinophils Absolute Auto 0 /uL (0-450); Eosinophils Percent Auto 0.2 % (2-4); Hematocrit 28.3 % (41-53); Hemoglobin 9.7 g/dL (13.5-17.5); Lymphocytes Absolute Auto 2500 /uL (1100-4500); Lymphocytes Percent Auto 23.8 % (25-40); Mean Corpuscular HGB Conc 34.4 % (30-36); Mean Corpuscular Hemoglobin 25.6 PG (26-34); Mean Corpuscular Volume 74.5 fL (80-100); Monocytes Absolute Auto 1300 /uL (0-900); Monocytes Percent Auto 12.3 % (3-14); Neutrophils Absolute Auto 6700 /uL (1500-7000); Platelet Count 237 X10^3/uL (150-400); Red Cell Distribution Width 22.3 % (11.6-14.8); White Blood Cell Count 10.7 X10^3/uL (4.5-11.0)
[2023-07-01 13:37] LABS: Add Manual Diff / Slide Review SLIDE REVIEW
[2023-07-01 13:39] LABS: Alanine Aminotransferase 30 IU/L (<50); Albumin 4.4 g/dL (3.5-5.0); Albumin Globulin Ratio 1.1 (1.0-2.8); Alkaline Phosphatase 70 U/L (38-126); Aspartate Aminotransferase 60 IU/L (17-59); BUN Creatinine Ratio 5.5 (6-22); Bilirubin Total 2.8 mg/dL (0.2-1.3); Blood Urea Nitrogen 3 mg/dL (9-20); Carbon Dioxide 21 mmol/L (22-32); Chloride 106 mmol/L (98-107); Estimated Glomerular Filt Rate > 60 mL/min (>60); Glucose 93 mg/dL (70-100); HEMOLYSIS 43 (0-50); Lactate Dehydrogenase 438 U/L (120-246); Sodium 136 mmol/L (137-145); Total Protein 8.4 g/dL (6.3-8.2)
[2023-07-01 13:51] LABS: Anisocytosis 3+; Sickle Cells 2+
[2023-07-01 13:52] LABS: Schistocytes 1+; Target Cells 2+
[2023-07-01 13:54] LABS: Microcytosis 1+; Nucleated Red Blood Cells 1 #/Diff; Ovalocytes 1+
--- NOTE | 2023-07-01 14:00 | PC.NURSE ---
pt requesting more pain medication; Dr. Kumar aware, at bedside, new orders given, see emar
--- NOTE | 2023-07-01 14:56 | PC.NURSE ---
pt reporting continued 02/20 pain; Dr. Kumar aware. Pt awake, alert, oriented, no acute medical distress identified.
--- NOTE | 2023-07-01 15:32 | PC.NURSE ---
provider at bedside w/ pt
[2023-07-01] MEDS: HYDROMORPHONE 0.5 MG INJ IV (15:41)
== END 2023-07-01 15:55 | disposition home or self-care (01) ==
PROVIDERS: Emergency Provider Emergency Medicine; PCP Family Medicine
DX: D57.1 Sickle-cell disease without crisis (principal); M54.2 Cervicalgia; M25.511 Pain in right shoulder; M54.9 Dorsalgia, unspecified
CPT/HCPCS: 36415; 71045; 80053; 81003; 83615; 85025; 85045; 96361; 96374; 96376; 99284; J1170

== ENCOUNTER 2023-08-20 15:18 | Emergency (ER) | payer OTHER, MEDICAID, SELFPAY ==
[2023-08-20] VITALS (19 sets, daily range): BP systolic 98–115; BP diastolic 55–67; PULSE 65–85; RESP 22; TEMP 37.7; O2SAT 94–99; BMI 18.6
--- NOTE | 2023-08-20 15:43 | PC.NURSE ---
Pt reports WHITE, backache and bilateral lower extremity pain x 24 hrs. Pt has sickle cell disease but states today's pain feels different than a sickle cell flare up but is equally as painful. Went to [facility] yesterday, had labs drawn. Results to be faxed to [facility]ese.
--- NOTE | 2023-08-20 16:04 | ED.BACK ---
HPI - Back Pain/Injury <Abebe Espinoza DO - Last Filed: 08/22/23 18:00> General Chief Complaint: Back Pain/Injury Stated Complaint: leg pain spreading/headache Time Seen by Provider: 08/20/23 15:36 Source: patient Mode of arrival: Ambulatory History of Present Illness HPI Narrative: Patient is a 23-year-old male. 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 He does take medications at home. He does not have a primary care doctor here locally. He states that for the past couple days he has had increasing discomfort specifically in his legs and in his back and his hips in his arms. He is also having a headache. No fevers. No chest pain. No cough. No shortness of breath. He states that all of his symptoms except for his headache feel like prior sickle cell crisis. He states he normally does not get a headache with the symptoms. Yesterday he was at an outside facility. He states he would blood work done. Received pain medication was discharged home. He states that he is still having the discomfort. Not much worse than yesterday just not improving. He has no other specific indications of an infection. Related Data Previous Rx's Medication Instructions Recorded hydrocodone 5 mg-acetaminophen 325 1 tab PO Q6H PRN pain #20 tabs 12/06/22 mg tablet hydrocodone 5 mg-acetaminophen 325 1 tab PO Q6H PRN pain #20 tabs 07/01/23 mg tablet hydroxyurea (sickle cell) 200 mg 200 mg PO DAILY #30 caps 07/01/23 capsule hydrocodone 5 mg-acetaminophen 325 1 tab PO BEDTIME PRN pain #30 tabs 08/20/23 mg tablet Allergies Allergy/AdvReac Type Severity Reaction Status Date / Time No Known Drug Allergies Allergy Verified 07/01/23 12:45 Review of Systems <Abebe Espinoza DO - Last Filed: 08/22/23 18:00> Review of Systems ROS Unobtainable: All systems reviewed & are unremarkable except as noted in HPI and below Patient History <Abebe Espinoza DO - Last Filed: 08/22/23 18:00> Social History Smoking Status: Never smoker Smoking Status: Never smoker alcohol intake frequency: holidays/special occasions only Substance Use Type: marijuana Exam <Abebe Espinoza DO - Last Filed: 08/22/23 18:00> Initial Vital Signs Initial Vital Signs: Vital Signs Temperature 99.9 F H 08/20/23 15:20 Pulse Rate 82 08/20/23 15:20 Respiratory Rate 22 08/20/23 15:20 Blood Pressure 115/67 08/20/23 15:20 Pulse Oximetry 98 08/20/23 15:20 Oxygen Delivery Method Room Air 08/20/23 15:20 Const General: cooperative, comfortable and No ill appearing HENCT Head: normal to inspection and normocephalic Mouth: oral mucosae normal Resp Effort & Inspection: normal respiratory effort Auscultation: clear to auscultation bilaterally Cardio Rate: regular rate Rhythm: regular rhythm GI Inspection: normal to inspection Skin General: no rashes or lesions noted Neuro General: patient alert, patient awake and moves all extremities Cranial Nerves: CN's II-XI intact bilaterally Speech: speech normal Extrem Other: Deformity to his left arm consistent with his prior stroke history. No rashes. <Marie Pang MD - Last Filed: 08/20/23 21:12> Initial Vital Signs Initial Vital Signs: Vital Signs Temperature 99.9 F H 08/20/23 15:20 Pulse Rate 82 08/20/23 15:20 Respiratory Rate 22 08/20/23 15:20 Blood Pressure 115/67 08/20/23 15:20 Pulse Oximetry 98 08/20/23 15:20 Oxygen Delivery Method Room Air 08/20/23 15:20 Course <Abebe Espinoza DO - Last Filed: 08/22/23 18:00> Orders Ordered: Discontinued Medications Hydrocodone Bitart/Acetaminophen (Hydrocodone/Acet 5/325 Tablet) 2 tab PO NOW ONE Stop: 08/20/23 20:43 Last Admin: 08/20/23 20:50 Dose: 2 tab Documented By: SUN Hydrocodone Bitart/Acetaminophen (Hydrocodone/Acet 5/325 Prepack) 1 bottle MISC DIRECTED ONE Stop: 08/20/23 20:43 Last Admin: 08/20/23 20:50 Dose: 1 bottle Documented By: SUN Hydromorphone HCl (Hydromorphone 1 Mg Inj) 1 mg IV NOW ONE Stop: 08/20/23 16:20 Last Admin: 08/20/23 16:38 Dose: 1 mg Documented By: MOLLY Hydromorphone HCl (Hydromorphone 1 Mg Inj) 1 mg IV NOW ONE Stop: 08/20/23 18:08 Last Admin: 08/20/23 18:19 Dose: 1 mg Documented By: DERIAN Sodium Chloride (Normal Saline 0.9%) 1,000 mls @ 1,000 mls/hr IV BOLUS ONE Stop: 08/20/23 17:18 Last Infusion: 08/20/23 17:19 Dose: Infused Documented By: Admin: 08/20/23 16:38 Dose: 1,000 mls/hr Documented By: MOLLY Ketorolac Tromethamine (Ketorolac 30 Mg/Ml Vial) 30 mg IV NOW ONE Stop: 08/20/23 17:19 Last Admin: 08/20/23 17:26 Dose: 30 mg Documented By: MOLLY Ondansetron HCl (Ondansetron 4 Mg/2 Ml Inj) 4 mg IV NOW ONE Stop: 08/20/23 20:31 Last Admin: 08/20/23 20:35 Dose: 4 mg Documented By: SUN Vital Signs Vital signs: Vital Signs - 8 hr 08/20/23 15:20 08/20/23 16:44 08/20/23 16:44 Temperature 99.9 F H Pulse Rate 82 85 Respiratory Rate 22 Blood Pressure 115/67 107/66 Pulse Oximetry 98 96 Oxygen Delivery Method Room Air 08/20/23 17:00 08/20/23 17:00 08/20/23 17:20 Temperature Pulse Rate 82 Respiratory Rate Blood Pressure 105/60 107/62 Pulse Oximetry 96 Oxygen Delivery Method 08/20/23 17:20 08/20/23 17:30 08/20/23 17:40 Temperature Pulse Rate 78 75 Respiratory Rate Blood Pressure 108/59 L Pulse Oximetry 96 96 Oxygen Delivery Method 08/20/23 17:40 08/20/23 18:00 08/20/23 18:00 Temperature Pulse Rate 76 71 Respiratory Rate Blood Pressure 110/55 L Pulse Oximetry 95 95 Oxygen Delivery Method 08/20/23 18:24 08/20/23 18:24 08/20/23 18:30 Temperature Pulse Rate 72 78 Respiratory Rate Blood Pressure 104/63 Pulse Oximetry 97 94 Oxygen Delivery Method 08/20/23 18:40 08/20/23 18:40 08/20/23 19:00 Temperature Pulse Rate 79 76 Respiratory Rate Blood Pressure 99/57 L Pulse Oximetry 95 94 Oxygen Delivery Method 08/20/23 19:00 08/20/23 19:20 08/20/23 19:20 Temperature Pulse Rate 75 Respiratory Rate Blood Pressure 102/57 L 98/57 L Pulse Oximetry 95 Oxygen Delivery Method 08/20/23 19:30 08/20/23 19:40 08/20/23 19:40 Temperature Pulse Rate 75 84 Respiratory Rate Blood Pressure 102/58 L Pulse Oximetry 96 97 Oxygen Delivery Method 08/20/23 20:00 08/20/23 20:00 08/20/23 20:20 Temperature Pulse Rate 75 Respiratory Rate Blood Pressure 100/67 105/66 Pulse Oximetry 96 Oxygen Delivery Method 08/20/23 20:20 08/20/23 20:30 08/20/23 20:40 Temperature Pulse Rate 70 69 Respiratory Rate Blood Pressure 106/64 Pulse Oximetry 99 97 Oxygen Delivery Method 08/20/23 20:40 Temperature Pulse Rate 65 Respiratory Rate Blood Pressure Pulse Oximetry 96 Oxygen Delivery Method <Marie Pang MD - Last Filed: 08/20/23 21:12> Orders Ordered: Discontinued Medications Hydrocodone Bitart/Acetaminophen (Hydrocodone/Acet 5/325 Tablet) 2 tab PO NOW ONE Stop: 08/20/23 20:43 Last Admin: 08/20/23 20:50 Dose: 2 tab Documented By: SUN Hydrocodone Bitart/Acetaminophen (Hydrocodone/Acet 5/325 Prepack) 1 bottle MISC DIRECTED ONE Stop: 08/20/23 20:43 Last Admin: 08/20/23 20:50 Dose: 1 bottle Documented By: SUN Hydromorphone HCl (Hydromorphone 1 Mg Inj) 1 mg IV NOW ONE Stop: 08/20/23 16:20 Last Admin: 08/20/23 16:38 Dose: 1 mg Documented By: MOLLY Hydromorphone HCl (Hydromorphone 1 Mg Inj) 1 mg IV NOW ONE Stop: 08/20/23 18:08 Last Admin: 08/20/23 18:19 Dose: 1 mg Documented By: DERIAN Sodium Chloride (Normal Saline 0.9%) 1,000 mls @ 1,000 mls/hr IV BOLUS ONE Stop: 08/20/23 17:18 Last Infusion: 08/20/23 17:19 Dose: Infused Documented By: Admin: 08/20/23 16:38 Dose: 1,000 mls/hr Documented By: MOLLY Ketorolac Tromethamine (Ketorolac 30 Mg/Ml Vial) 30 mg IV NOW ONE Stop: 08/20/23 17:19 Last Admin: 08/20/23 17:26 Dose: 30 mg Documented By: MOLLY Ondansetron HCl (Ondansetron 4 Mg/2 Ml Inj) 4 mg IV NOW ONE Stop: 08/20/23 20:31 Last Admin: 08/20/23 20:35 Dose: 4 mg Documented By: SUN Vital Signs Vital signs: Vital Signs - 8 hr 08/20/23 15:20 08/20/23 16:44 08/20/23 16:44 Temperature 99.9 F H Pulse Rate 82 85 Respiratory Rate 22 Blood Pressure 115/67 107/66 Pulse Oximetry 98 96 Oxygen Delivery Method Room Air 08/20/23 17:00 08/20/23 17:00 08/20/23 17:20 Temperature Pulse Rate 82 Respiratory Rate Blood Pressure 105/60 107/62 Pulse Oximetry 96 Oxygen Delivery Method 08/20/23 17:20 08/20/23 17:30 08/20/23 17:40 Temperature Pulse Rate 78 75 Respiratory Rate Blood Pressure 108/59 L Pulse Oximetry 96 96 Oxygen Delivery Method 08/20/23 17:40 08/20/23 18:00 08/20/23 18:00 Temperature Pulse Rate 76 71 Respiratory Rate Blood Pressure 110/55 L Pulse Oximetry 95 95 Oxygen Delivery Method 08/20/23 18:24 08/20/23 18:24 08/20/23 18:30 Temperature Pulse Rate 72 78 Respiratory Rate Blood Pressure 104/63 Pulse Oximetry 97 94 Oxygen Delivery Method 08/20/23 18:40 08/20/23 18:40 08/20/23 19:00 Temperature Pulse Rate 79 76 Respiratory Rate Blood Pressure 99/57 L Pulse Oximetry 95 94 Oxygen Delivery Method 08/20/23 19:00 08/20/23 19:20 08/20/23 19:20 Temperature Pulse Rate 75 Respiratory Rate Blood Pressure 102/57 L 98/57 L Pulse Oximetry 95 Oxygen Delivery Method 08/20/23 19:30 08/20/23 19:40 08/20/23 19:40 Temperature Pulse Rate 75 84 Respiratory Rate Blood Pressure 102/58 L Pulse Oximetry 96 97 Oxygen Delivery Method 08/20/23 20:00 08/20/23 20:00 08/20/23 20:20 Temperature Pulse Rate 75 Respiratory Rate Blood Pressure 100/67 105/66 Pulse Oximetry 96 Oxygen Delivery Method 08/20/23 20:20 08/20/23 20:30 08/20/23 20:40 Temperature Pulse Rate 70 69 Respiratory Rate Blood Pressure 106/64 Pulse Oximetry 99 97 Oxygen Delivery Method 08/20/23 20:40 Temperature Pulse Rate 65 Respiratory Rate Blood Pressure Pulse Oximetry 96 Oxygen Delivery Method MDM - Back Pain/Injury <Abebe Espinoza, DO - Last Filed: 08/22/23 18:00> Medical Records Attestation: I reviewed the patient's medical records. Lab Data Attestation: I reviewed the patient's lab results. 08/20/23 16:30 08/20/23 16:30 Labs: Lab Results 08/20/23 08/20/23 Range/Units 16:30 16:43 WBC 10.5 (4.5-11.0) X10^3/uL RBC 3.65 L (4.5-5.9) X10^6/uL Hgb 9.3 L (13.5-17.5) g/dL Hct 27.2 L (41-53) % MCV 74.4 L (80-100) fL MCH 25.5 L (26-34) PG MCHC 34.3 (30-36) % RDW 18.5 H (11.6-14.8) % Plt Count 276 (150-400) X10^3/uL Neut % (Auto) Not Reportable Lymph % (Auto) Not Reportable [place] % (Auto) Not Reportable Eos % (Auto) Not Reportable Baso % (Auto) Not Reportable Lymph # (Auto) Not Reportable [place] # (Auto) Not Reportable Baso # (Auto) Not Reportable Total Counted 100 Seg Neutrophils % 61.0 (38-70) % Band Neutrophils % 1.0 L (3-7) % Lymphocytes % (Manual) 15.0 L (25-45) % Atypical Lymphs % 5.0 H ( - 0) % Monocytes % (Manual) 17.0 H (2-11) % Basophils % (Manual) 1.0 (0-1) % Neutrophils # (Manual) 6510 H (5799-4490) /uL Smudge Cells 1+ H Plt Morphology Comment RBC Morphology See below Hypochromasia 2+ H Anisocytosis 3+ H Microcytosis 2+ H Macrocytosis 1+ H Spherocytes 1+ H Sickle Cells 2+ H Target Cells 2+ H Ovalocytes 2+ H Acanthocytes (Spur) 1+ Rouleaux 2+ H Schistocytes 2+ H Percent Retic 8.4 H (0.9-2.6) % Sodium 134 L (137-145) mmol/L Potassium 3.6 (3.4-5.1) mmol/L Chloride 104 (98-107) mmol/L Carbon Dioxide 25 (22-32) mmol/L BUN 4 L (9-20) mg/dL Creatinine 0.60 L (0.66-1.25) mg/dL Estimated GFR > 60 (>60) mL/min BUN/Creatinine Ratio 6.7 (6-22) Glucose 87 (70-100) mg/dL Calcium 8.5 (8.4-10.2) mg/dL Total Bilirubin 2.1 H (0.2-1.3) mg/dL AST 39 (17-59) IU/L ALT 21 (<50) IU/L Alkaline Phosphatase 74 (38-126) U/L Total Protein 7.7 (6.3-8.2) g/dL Albumin 3.7 (3.5-5.0) g/dL Globulin 4.0 (1.7-4.1) g/dL Albumin/Globulin Ratio 0.9 L (1.0-2.8) Lipase 75 (23-300) U/L SARS-CoV-2 (PCR) Negative (Negative) Influenza A (RT-PCR) Flu a negative (NEGATIVE) Influenza B (RT-PCR) Flu b negative (NEGATIVE) RSV (PCR) Negative (Negative) Urine Dip Bedside Urine Glucose Negative Bedside Urine Bilirubin - Negative Bedside Urine Ketone - Negative Urine Specific [place] 1.015 Bedside Urine Occult Blood - Negative Bedside Urine pH 7.0 Bedside Urine Protein - Negative Bedside Urine Urobilinogen +/- 1mg Bedside Urine Nitrite - Negative Bedside Urine Leukocytes - Negative Esterase MDM Narrative Medical decision making narrative: He has been taking his home medicines. He is afebrile. Lungs are clear. Chest x-ray shows no signs of acute chest. His anemia is baseline based on his labs that were drawn yesterday. Yesterday's hemoglobin is 9.3 and hematocrit was 26.8 which is consistent with today. He has no specific source of infection. Was given several doses of pain medication. Care turned over to Dr. Pang to follow-up and disposition. Anticipate discharge home. <Marie Pang MD - Last Filed: 08/20/23 21:12> Lab Data Labs: Lab Results 08/20/23 08/20/23 Range/Units 16:30 16:43 WBC 10.5 (4.5-11.0) X10^3/uL RBC 3.65 L (4.5-5.9) X10^6/uL Hgb 9.3 L (13.5-17.5) g/dL Hct 27.2 L (41-53) % MCV 74.4 L (80-100) fL MCH 25.5 L (26-34) PG MCHC 34.3 (30-36) % RDW 18.5 H (11.6-14.8) % Plt Count 276 (150-400) X10^3/uL Neut % (Auto) Not Reportable Lymph % (Auto) Not Reportable [place] % (Auto) Not Reportable Eos % (Auto) Not Reportable Baso % (Auto) Not Reportable Lymph # (Auto) Not Reportable [place] # (Auto) Not Reportable Baso # (Auto) Not Reportable Total Counted 100 Seg Neutrophils % 61.0 (38-70) % Band Neutrophils % 1.0 L (3-7) % Lymphocytes % (Manual) 15.0 L (25-45) % Atypical Lymphs % 5.0 H ( - 0) % Monocytes % (Manual) 17.0 H (2-11) % Basophils % (Manual) 1.0 (0-1) % Neutrophils # (Manual) 6510 H (0434-5931) /uL Smudge Cells 1+ H Plt Morphology Comment RBC Morphology See below Hypochromasia 2+ H Anisocytosis 3+ H Microcytosis 2+ H Macrocytosis 1+ H Spherocytes 1+ H Sickle Cells 2+ H Target Cells 2+ H Ovalocytes 2+ H Acanthocytes (Spur) 1+ Rouleaux 2+ H Schistocytes 2+ H Percent Retic 8.4 H (0.9-2.6) % Sodium 134 L (137-145) mmol/L Potassium 3.6 (3.4-5.1) mmol/L Chloride 104 (98-107) mmol/L Carbon Dioxide 25 (22-32) mmol/L BUN 4 L (9-20) mg/dL Creatinine 0.60 L (0.66-1.25) mg/dL Estimated GFR > 60 (>60) mL/min BUN/Creatinine Ratio 6.7 (6-22) Glucose 87 (70-100) mg/dL Calcium 8.5 (8.4-10.2) mg/dL Total Bilirubin 2.1 H (0.2-1.3) mg/dL AST 39 (17-59) IU/L ALT 21 (<50) IU/L Alkaline Phosphatase 74 (38-126) U/L Total Protein 7.7 (6.3-8.2) g/dL Albumin 3.7 (3.5-5.0) g/dL Globulin 4.0 (1.7-4.1) g/dL Albumin/Globulin Ratio 0.9 L (1.0-2.8) Lipase 75 (23-300) U/L SARS-CoV-2 (PCR) Negative (Negative) Influenza A (RT-PCR) Flu a negative (NEGATIVE) Influenza B (RT-PCR) Flu b negative (NEGATIVE) RSV (PCR) Negative (Negative) Urine Dip Bedside Urine Glucose Negative Bedside Urine Bilirubin - Negative Bedside Urine Ketone - Negative Urine Specific [place] 1.015 Bedside Urine Occult Blood - Negative Bedside Urine pH 7.0 Bedside Urine Protein - Negative Bedside Urine Urobilinogen +/- 1mg Bedside Urine Nitrite - Negative Bedside Urine Leukocytes - Negative Esterase MDM Narrative Medical decision making narrative: He has been taking his home medicines. He is afebrile. Lungs are clear. Chest x-ray shows no signs of acute chest. His anemia is baseline based on his labs that were drawn yesterday. Yesterday's hemoglobin is 9.3 and hematocrit was 26.8 which is consistent with today. He has no specific source of infection. Was given several doses of pain medication. Care turned over to Dr. Pang to follow-up and disposition. Anticipate discharge home. 9pm Dr Pang, care is assumed 23-year-old gentleman with known sickle cell disease, recently moved to the area has not established a primary care provider having increasing sickle cell pain but not in acute sickle crisis. Received in the emergency room include a L of saline, Toradol, parenteral Dilaudid, parenteral Zosyn oral Vicodin and discharge home with additional Vicodin. Patient is doing better with pain at what he feels are baseline levels. He has had luck with hydrocodone use at home in the past. Will discharge him with a prescription for such. We did have a very jose discussion regarding narcotics in the setting of sickle cell, the importance of appropriate pain management, dependence and addiction. He seems to understand this very well. He is currently hemodynamically stable, pain has been controlled, he will be discharged home Discharge Plan Departure Patient Disposition: Home Clinical Impression: Sickle cell anemia with pain Instructions: DI for Sickle Cell Anemia, Pain Crisis -- Adult Activity Restrictions/Additional Instructions: Thank you for coming in today I am glad we were able to get your pain under control. I am sorry that you are continuing to suffer with this. At this point you do need to continue all of your medications for sickle-cell I have given you a prescription for Vicodin to be used sparingly at home should you have increasing pain. Please recognize that narcotics have a very important role in treating pain associated with sickle cell disease but there also a soda sedated with dependence on narcotics as well as addiction issues. They will also cause constipation. Please make sure that you are taking a stool softener and take them with caution. Prescription was electronically transmitted to [facility] If you find that you are getting worse or develop any new symptoms, please feel free to return to the emergency department for further evaluation. Prescriptions: New hydrocodone-acetaminophen 5-325 mg tablet 1 tab PO BEDTIME PRN (Reason: pain) Qty: 30 0RF No Action hydrocodone-acetaminophen 5-325 mg tablet 1 tab PO Q6H PRN (Reason: pain) Qty: 20 0RF hydroxyurea (sickle cell) 200 mg capsule 200 mg PO DAILY Qty: 30 0RF hydrocodone-acetaminophen 5-325 mg tablet 1 tab PO Q6H PRN (Reason: pain) Qty: 20 0RF Referrals: Evens Valdez MD [Primary Care Provider] - Stand Alone Forms: Patient Portal/API
--- NOTE | 2023-08-20 16:19 | DI.RAD.S_ITS ---
PROCEDURE: XR CHEST 1V INDICATIONS: Sickle crisis eval for acute chest TECHNIQUE: One view of the chest was acquired. COMPARISON: [facility], CR, XR CHEST 1V, 02/01/2023, 15:33. [facility], CR, XR CHEST 1V, 07/01/2023, 13:18. FINDINGS: Surgical changes and devices: None. Lungs and pleura: On this semiupright portable chest examination, no large pneumothorax or large pleural effusions are seen. No focal infiltrates are seen. Mediastinum: Mediastinal contours appear normal. Heart size is normal. Bones and chest wall: Skin known sclerosis of the left humeral head is partially seen. Overlying soft tissues appear unremarkable. IMPRESSION: No acute cardiopulmonary abnormality is seen. There is known sclerosis of the left humeral head, which is partially seen on this study. Dictated by: Александр Chandler M.D. on 08/20/2023 at 15:53 Approved by: Александр Chandler M.D. on 08/20/2023 at 15:53
[2023-08-20] MEDS: SODIUM CHLORIDE 0.9% 1,000 ML 1000 ML IV (16:38)
[2023-08-20] MEDS: HYDROMORPHONE 1 MG INJ IV ×2 (16:38→18:19)
[2023-08-20 16:42] LABS: Hematocrit 27.2 % (41-53); Hemoglobin 9.3 g/dL (13.5-17.5); Mean Corpuscular HGB Conc 34.3 % (30-36); Mean Corpuscular Hemoglobin 25.5 PG (26-34); Mean Corpuscular Volume 74.4 fL (80-100); Platelet Count 276 X10^3/uL (150-400); Red Blood Cell Count 3.65 X10^6/uL (4.5-5.9); Red Cell Distribution Width 18.5 % (11.6-14.8); White Blood Cell Count 10.5 X10^3/uL (4.5-11.0)
[2023-08-20 16:52] LABS: Alanine Aminotransferase 21 IU/L (<50); Albumin 3.7 g/dL (3.5-5.0); Albumin Globulin Ratio 0.9 (1.0-2.8); Alkaline Phosphatase 74 U/L (38-126); Aspartate Aminotransferase 39 IU/L (17-59); BUN Creatinine Ratio 6.7 (6-22); Bilirubin Total 2.1 mg/dL (0.2-1.3); Blood Urea Nitrogen 4 mg/dL (9-20); Calcium 8.5 mg/dL (8.4-10.2); Carbon Dioxide 25 mmol/L (22-32); Chloride 104 mmol/L (98-107); Estimated Glomerular Filt Rate > 60 mL/min (>60); Glucose 87 mg/dL (70-100); HEMOLYSIS < 15 (0-50); Lipase 75 U/L (23-300); Potassium 3.6 mmol/L (3.4-5.1); Reticulocyte Count, Percent 8.4 % (0.9-2.6); Sodium 134 mmol/L (137-145); Total Protein 7.7 g/dL (6.3-8.2)
[2023-08-20 16:53] LABS: Add Manual Diff / Slide Review YES
[2023-08-20 17:01] LABS: Neutrophils Absolute Manual 6510 /uL (3000-5900); Total Cells Counted 100
[2023-08-20 17:02] LABS: Anisocytosis 3+; Macrocytosis 1+; Microcytosis 2+
[2023-08-20 17:03] LABS: Hypochromasia 2+; Ovalocytes 2+; Schistocytes 2+; Smudge Cells 1+; Target Cells 2+
[2023-08-20 17:04] LABS: Acanthocytes 1+; Spherocytes 1+
[2023-08-20 17:05] LABS: Rouleaux 2+; Sickle Cells 2+
[2023-08-20] MEDS: KETOROLAC 30 MG/ML VIAL IV (17:26)
[2023-08-20 17:27] LABS: Influenza A - CEPHEID Flu A NEGATIVE (NEGATIVE); Influenza B - CEPHEID Flu B NEGATIVE (NEGATIVE); Respiratory Syncytial Virus Negative (Negative)
[2023-08-20 17:36] LABS: COVID-19 CEPHEID 4-PLEX PCR Negative (Negative)
[2023-08-20] MEDS: ONDANSETRON 4 MG/2 ML INJ IV (20:35)
[2023-08-20] MEDS: HYDROCODONE/ACET 5/325 TABLET 2 TAB PO (20:50)
[2023-08-20] MEDS: HYDROCODONE/ACET 5/325 PREPACK 1 BOTTLE MISC (20:50)
== END 2023-08-20 21:21 | disposition home or self-care (01) ==
PROVIDERS: Emergency Medicine; Emergency Provider Emergency Medicine; PCP Family Medicine
DX: D57.00 Hb-SS disease with crisis, unspecified (principal); Z20.822 Contact with and (suspected) exposure to COVID-19
CPT/HCPCS: 0241U; 36415; 71045; 80053; 81003; 83690; 85007; 85025; 85045; 96361; 96374; 96375; 96376; 99284; J1170; J1885; J2405

== ENCOUNTER 2023-08-22 16:00 | Emergency (ER) | payer OTHER, MEDICAID, SELFPAY ==
[2023-08-22 16:07] VITALS: BP 107/60; PULSE 77; RESP 20; TEMP 37.1; O2SAT 99; BMI 18.6
[2023-08-22 17:51] VITALS: BP 111/55; PULSE 75; TEMP 36.9; O2SAT 99
== END 2023-08-22 19:21 | disposition left against medical advice (07) ==
PROVIDERS: Emergency Provider Emergency Medicine; PCP Family Medicine
CPT/HCPCS: 99281

== ENCOUNTER 2023-09-17 15:06 | Emergency (ER) | payer OTHER, MEDICAID, SELFPAY ==
[2023-09-17] VITALS (14 sets, daily range): BP systolic 93–124; BP diastolic 53–64; PULSE 74–129; RESP 17–18; TEMP 37.1; O2SAT 92–99; BMI 18.6
--- NOTE | 2023-09-17 17:06 | DI.RAD.S_ITS ---
PROCEDURE: XR HIP W PEL IF DONE RT 2V INDICATIONS: History of sickle cell with right hip pain TECHNIQUE: AP pelvis with lateral view(s) of the right hip(s). COMPARISON: [facility], , XR HIP W PEL IF DONE RT 2V, 02/11/2023, 20:57. FINDINGS: Bones: Stable right hip arthroplasty hardware is seen. Focal bony irregularity can be seen involving the inferior right acetabular region, which is similar to the prior. There is moderate left hip degenerative change seen, with deformity of the left femoral head. Soft tissues: The visualized bowel gas pattern is normal. No suspicious soft tissue calcifications. IMPRESSION: Stable right hip arthroplasty hardware, without a jose acute abnormality. Dictated by: Александр Chandler M.D. on 09/17/2023 at 16:36 Approved by: Александр Chandler M.D. on 09/17/2023 at 16:37
[2023-09-17] MEDS: MORPHINE 4 MG/ML INJ IV (18:10)
[2023-09-17 18:38] LABS: BUN Creatinine Ratio 10.3 (6-22); Blood Urea Nitrogen 6 mg/dL (9-20); Carbon Dioxide 25 mmol/L (22-32); Chloride 103 mmol/L (98-107); Estimated Glomerular Filt Rate > 60 mL/min (>60); Glucose 89 mg/dL (70-100); HEMOLYSIS 35 (0-50); Potassium 4.4 mmol/L (3.4-5.1); Sodium 136 mmol/L (137-145)
[2023-09-17 18:40] LABS: Hematocrit 25.7 % (41-53); Hemoglobin 8.6 g/dL (13.5-17.5); Mean Corpuscular HGB Conc 33.5 % (30-36); Mean Corpuscular Hemoglobin 25.5 PG (26-34); Mean Corpuscular Volume 76.2 fL (80-100); Platelet Count 279 X10^3/uL (150-400); Red Blood Cell Count 3.37 X10^6/uL (4.5-5.9); White Blood Cell Count 11.4 X10^3/uL (4.5-11.0)
[2023-09-17 18:52] LABS: Reticulocyte Count, Percent 12.3 % (0.9-2.6)
[2023-09-17 18:57] LABS: Add Manual Diff / Slide Review YES
[2023-09-17 19:02] LABS: Neutrophils Absolute Manual 6954 /uL (3000-5900); Nucleated Red Blood Cells 19 #/Diff; Total Cells Counted 100
[2023-09-17 19:04] LABS: Anisocytosis 3+; Sickle Cells 2+; Target Cells 2+
--- NOTE | 2023-09-17 19:43 | ED.EXTPRO ---
HPI - Extremity Problem General Chief complaint: Extremity Problem,Nontraumatic Stated complaint: Left hip pain, Sicle Cell patient Time Seen by Provider: 09/17/23 17:26 Source: patient Mode of arrival: Ambulatory History of Present Illness HPI Narrative: 23-year-old male with known sickle cell disease no established primary care presenting with left hip pain for in says it has been ongoing for about a week. No recent trauma. History of right unipolar arthroplasty. He has not having fevers shortness of breath or cough. Has used hydrocodone at home for pain without relief. 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 Related Data Previous Rx's Medication Instructions Recorded hydrocodone 5 mg-acetaminophen 325 1 tab PO Q6H PRN pain #20 tabs 12/06/22 mg tablet hydrocodone 5 mg-acetaminophen 325 1 tab PO Q6H PRN pain #20 tabs 07/01/23 mg tablet hydroxyurea (sickle cell) 200 mg 200 mg PO DAILY #30 caps 07/01/23 capsule hydrocodone 5 mg-acetaminophen 325 1 tab PO BEDTIME PRN pain #30 tabs 08/20/23 mg tablet Allergies Allergy/AdvReac Type Severity Reaction Status Date / Time No Known Drug Allergies Allergy Verified 09/17/23 15:17 Patient History Social History Smoking Status: Never smoker Smoking Status: Never smoker alcohol intake frequency: holidays/special occasions only Substance Use Type: marijuana Exam Initial Vital Signs Initial Vital Signs: Vital Signs Temperature 98.7 F 09/17/23 15:11 Pulse Rate 89 09/17/23 15:11 Respiratory Rate 18 09/17/23 15:11 Blood Pressure 116/54 L 09/17/23 15:11 Pulse Oximetry 98 09/17/23 15:11 Oxygen Delivery Method Room Air 09/17/23 15:11 Const Other: Well-appearing, visible effects of left hemiparesis. HENMT Head: normocephalic and atraumatic Resp Effort & Inspection: normal respiratory effort Auscultation: clear to auscultation bilaterally Cardio Rate: regular rate Other: Heart sounds are normal Skin Other: Warm and dry Extrem Other: Contracture of left upper extremity, he has pain with passive range of motion of the left hip. Course Orders Ordered: Discontinued Medications Hydromorphone HCl (Hydromorphone 1 Mg Inj) 1 mg IV NOW ONE Stop: 09/17/23 19:41 Last Admin: 09/17/23 19:54 Dose: 1 mg Documented By: SUN Hydromorphone HCl (Hydromorphone 1 Mg Inj) 1 mg IV NOW ONE Stop: 09/17/23 20:28 Last Admin: 09/17/23 20:31 Dose: 1 mg Documented By: SUN Sodium Chloride (Normal Saline 0.9%) 1,000 mls @ 1,000 mls/hr IV BOLUS ONE Stop: 09/17/23 20:39 Last Infusion: 09/17/23 20:58 Dose: Infused Documented By: Admin: 09/17/23 19:53 Dose: 1,000 mls/hr Documented By: SUN Ketorolac Tromethamine (Ketorolac 30 Mg/Ml Vial) 15 mg IV NOW ONE Stop: 09/17/23 19:41 Last Admin: 09/17/23 19:54 Dose: 15 mg Documented By: SUN Morphine Sulfate (Morphine 4 Mg/Ml Inj) 4 mg IV NOW ONE Stop: 09/17/23 17:29 Last Admin: 09/17/23 18:10 Dose: 4 mg Documented By: SUJATA Reevaluation(s) Reevaluation #1: At 9:15 p.m., the patient reports his pain is improved and now tolerable. He believes that he will be okay tonight, and has a prescription waiting for him at the pharmacy for outpatient pain medications that he can get tomorrow morning. Advised him of my recommendation that he follow up with Orthopedics. Vital Signs Vital signs: Vital Signs - 8 hr 09/17/23 15:11 09/17/23 17:01 09/17/23 17:02 Temperature 98.7 F Pulse Rate 89 129 H 125 H Respiratory Rate 18 Blood Pressure 116/54 L Pulse Oximetry 98 99 94 Oxygen Delivery Method Room Air 09/17/23 17:02 09/17/23 17:23 09/17/23 17:23 Temperature Pulse Rate 94 H Respiratory Rate Blood Pressure 110/59 L 110/63 Pulse Oximetry 96 Oxygen Delivery Method 09/17/23 17:30 09/17/23 17:30 09/17/23 18:00 Temperature Pulse Rate 85 88 Respiratory Rate Blood Pressure 109/60 Pulse Oximetry 99 98 Oxygen Delivery Method 09/17/23 18:30 09/17/23 19:00 09/17/23 19:01 Temperature Pulse Rate 84 79 79 Respiratory Rate Blood Pressure Pulse Oximetry 95 96 97 Oxygen Delivery Method Room Air 09/17/23 19:01 09/17/23 19:30 09/17/23 19:51 Temperature Pulse Rate 83 Respiratory Rate 17 Blood Pressure 124/64 96/55 L Pulse Oximetry 96 Oxygen Delivery Method Room Air 09/17/23 19:51 09/17/23 20:00 09/17/23 20:00 Temperature Pulse Rate 91 H 83 Respiratory Rate Blood Pressure 99/57 L Pulse Oximetry 92 92 Oxygen Delivery Method Room Air 09/17/23 20:30 09/17/23 20:30 Temperature Pulse Rate 74 Respiratory Rate Blood Pressure 93/53 L Pulse Oximetry 95 Oxygen Delivery Method Room Air MDM - Extremity (Nontraumatic) Lab Data 09/17/23 18:15 09/17/23 18:15 Labs: Lab Results 09/17/23 Range/Units 18:15 WBC 11.4 H (4.5-11.0) X10^3/uL RBC 3.37 L (4.5-5.9) X10^6/uL Hgb 8.6 L (13.5-17.5) g/dL Hct 25.7 L (41-53) % MCV 76.2 L (80-100) fL MCH 25.5 L (26-34) PG MCHC 33.5 (30-36) % RDW 23.0 H (11.6-14.8) % Plt Count 279 (150-400) X10^3/uL Neut % (Auto) Not Reportable Lymph % (Auto) Not Reportable [place] % (Auto) Not Reportable Eos % (Auto) Not Reportable Baso % (Auto) Not Reportable Neut # (Auto) Not Reportable Lymph # (Auto) Not Reportable [place] # (Auto) Not Reportable Eos # (Auto) Not Reportable Baso # (Auto) Not Reportable Total Counted 100 Seg Neutrophils % 59.0 (38-70) % Band Neutrophils % 2.0 L (3-7) % Lymphocytes % (Manual) 30.0 (25-45) % Monocytes % (Manual) 9.0 (2-11) % Neutrophils # (Manual) 6954 H (2272-8217) /uL Nucleated RBCs 19 H ( - 0) #/Diff RBC Morphology See below Anisocytosis 3+ H Sickle Cells 2+ H Target Cells 2+ H Percent Retic 12.3 H (0.9-2.6) % Sodium 136 L (137-145) mmol/L Potassium 4.4 (3.4-5.1) mmol/L Chloride 103 (98-107) mmol/L Carbon Dioxide 25 (22-32) mmol/L BUN 6 L (9-20) mg/dL Creatinine 0.58 L (0.66-1.25) mg/dL Estimated GFR > 60 (>60) mL/min BUN/Creatinine Ratio 10.3 (6-22) Glucose 89 (70-100) mg/dL Calcium 9.0 (8.4-10.2) mg/dL Imaging Data AP pelvis and lateral right hip: My Impression: Some bony irregularity of the left hip without fracture seen, stable right hip postoperative changes MDM Narrative Medical decision making narrative: 23-year-old male with known sickle cell disease presenting with left hip pain. This is not dramatic it has not associated with a fever or leukocytosis and tolerates passive range of motion. I do not think he has a septic joint. This seems most consistent with a sickle cell pain crisis, he got better with analgesics and fluids in the emergency department. Does not have any chest symptoms. Considered the possibility of avascular necrosis, recommended he follow up with Orthopedics and also referred him to primary care. Discharge Plan Departure Patient Disposition: Home Clinical Impression: Sickle cell pain crisis Activity Restrictions/Additional Instructions: I am glad that we were able to get her pain under better control. I think it is safe for you to go home. I understand that you have a prescription for pain medications waiting for you at the pharmacy, pick those up tomorrow morning. I recommend that you establish with primary care, and also would like it to be seen by Orthopedics regarding your persistent hip pain. I have provided you with contact information for an orthopedist in [place]. If you are having fevers shortness of breath, uncontrolled pain or other acute symptoms recheck in the emergency department. Prescriptions: No Action hydrocodone-acetaminophen 5-325 mg tablet 1 tab PO BEDTIME PRN (Reason: pain) Qty: 30 0RF hydrocodone-acetaminophen 5-325 mg tablet 1 tab PO Q6H PRN (Reason: pain) Qty: 20 0RF hydroxyurea (sickle cell) 200 mg capsule 200 mg PO DAILY Qty: 30 0RF hydrocodone-acetaminophen 5-325 mg tablet 1 tab PO Q6H PRN (Reason: pain) Qty: 20 0RF Referrals: Evens Valdez MD [Primary Care Provider] - Adrianne Guy MD [Physician] - Stand Alone Forms: Patient Portal/API, Work Release Note
[2023-09-17] MEDS: SODIUM CHLORIDE 0.9% 1,000 ML 1000 ML IV (19:53)
[2023-09-17] MEDS: KETOROLAC 30 MG/ML VIAL 15 MG IV (19:54)
[2023-09-17] MEDS: HYDROMORPHONE 1 MG INJ IV ×2 (19:54→20:31)
== END 2023-09-17 21:28 | disposition home or self-care (01) ==
PROVIDERS: Emergency Medicine; Emergency Provider Emergency Medicine; PCP Family Medicine
DX: D57.00 Hb-SS disease with crisis, unspecified (principal); M25.552 Pain in left hip
CPT/HCPCS: 36415; 73502; 80048; 85007; 85025; 85045; 96361; 96374; 96375; 96376; 99284; J1170; J1885; J2270

== ENCOUNTER 2024-06-15 19:49 | Inpatient (IN) | payer OTHER, MEDICAID, SELFPAY ==
[2024-06-15 19:49] VITALS: BMI 21.4
--- NOTE | 2024-06-15 19:54 | DI.RAD.S_ITS ---
PROCEDURE: XR CHEST 1V INDICATIONS: chest pain TECHNIQUE: One view of the chest was acquired. COMPARISON: [facility], CR, XR CHEST 1V, 08/20/2023, 16:24. [facility], CR, XR CHEST 1V, 07/01/2023, 13:18. FINDINGS: Surgical changes and devices: None. Lungs and pleura: Lungs are clear. No pleural effusions or pneumothorax. Mediastinum: Mediastinal contours appear normal. Heart size is normal. Bones and chest wall: No suspicious bony lesions. Overlying soft tissues appear unremarkable. IMPRESSION: No acute cardiopulmonary abnormality is seen. Dictated by: Dominik Nguyen M.D. on 06/15/2024 at 20:17 Approved by: Dominik Nguyen M.D. on 06/15/2024 at 20:19
[2024-06-15 20:02] VITALS: BP 111/57; PULSE 92; RESP 34; TEMP 36.9; O2SAT 100
[2024-06-15] MEDS: HYDROMORPHONE 1 MG INJ IV ×2 (20:04→21:03)
[2024-06-15 20:05] LABS: Add Manual Diff / Slide Review YES; Mean Corpuscular HGB Conc 33.5 % (30-36); Mean Corpuscular Hemoglobin 25.3 PG (26-34); Mean Corpuscular Volume 75.5 fL (80-100); Platelet Count 196 X10^3/uL (150-400); Red Blood Cell Count 3.57 X10^6/uL (4.5-5.9); White Blood Cell Count 18.2 X10^3/uL (4.5-11.0)
[2024-06-15] MEDS: SODIUM CHLORIDE 0.9% 1,000 ML 1000 ML IV (20:05)
[2024-06-15 20:12] LABS: Alanine Aminotransferase 21 IU/L (<50); Albumin 4.3 g/dL (3.5-5.0); Albumin Globulin Ratio 1.2 (1.0-2.8); Alkaline Phosphatase 77 U/L (38-126); Aspartate Aminotransferase 45 IU/L (17-59); BUN Creatinine Ratio 8.5 (6-22); Bilirubin Total 2.4 mg/dL (0.2-1.3); Blood Urea Nitrogen 6 mg/dL (9-20); Calcium 8.6 mg/dL (8.4-10.2); Carbon Dioxide 21 mmol/L (22-32); Chloride 103 mmol/L (98-107); Creatine Kinase 87 U/L (55-170); Estimated Glomerular Filt Rate > 60 mL/min (>60); Globulin 3.5 g/dL (1.7-4.1); Glucose 117 mg/dL (70-100); HEMOLYSIS < 15 (0-50); Lipase 144 U/L (23-300); Potassium 3.3 mmol/L (3.4-5.1); Sodium 137 mmol/L (137-145); Total Protein 7.8 g/dL (6.3-8.2)
[2024-06-15 20:23] LABS: Reticulocyte Count, Percent 6.3 % (0.9-2.6); Troponin I 0.015 ng/mL (0.01-0.034)
--- NOTE | 2024-06-15 20:23 | ED.GENADULT ---
HPI - General Adult General Chief complaint: Shortness of Breath/Dyspnea Stated complaint: Sickle Cell Crisis Time Seen by Provider: 06/15/24 19:54 Source: EMS Mode of arrival: EMS History of Present Illness HPI narrative: 23-year-old male with history of sickle disease, childhood stroke with resultant left-sided hemiparesis, last sickle crisis September 2023, has no established physical ther, complains of bilateral anterior chest discomfort and cough and some shortness of breath for the last few hours prior to admission. No fevers or chills. Denies abdominal discomfort, no hip pain this time, no leg pain or swelling symptoms. Denies headache, neck pain, photophobia. No household exposure to persons known to have recent respiratory illnesses. Related Data Previous Rx's Medication Instructions Recorded hydrocodone 5 mg-acetaminophen 325 1 tab PO Q6H PRN pain #20 tabs 12/06/22 mg tablet hydrocodone 5 mg-acetaminophen 325 1 tab PO Q6H PRN pain #20 tabs 07/01/23 mg tablet hydroxyurea (sickle cell) 200 mg 200 mg PO DAILY #30 caps 07/01/23 capsule hydrocodone 5 mg-acetaminophen 325 1 tab PO BEDTIME PRN pain #30 tabs 08/20/23 mg tablet Allergies Allergy/AdvReac Type Severity Reaction Status Date / Time No Known Drug Allergies Allergy Verified 09/17/23 15:17 Review of Systems Review of Systems Narrative: see HPI Patient History Social History Smoking Status: Never smoker Smoking Status: Never smoker alcohol intake frequency: holidays/special occasions only Substance Use Type: marijuana Exam Narrative Exam Narrative: GENERAL: Well-developed patient, in mild distress. HEAD: Atraumatic. Normocephalic. EYES: Pupils equal round and reactive. Extraocular motions intact. No scleral icterus. No injection or drainage. ENT: Nose without bleeding, purulent drainage. Throat without erythema, tonsillar hypertrophy or exudate. Airway patent. NECK: Trachea midline. Non tender CARDIOVASCULAR: Regular rate and rhythm without murmurs, gallops, or rubs. RESPIRATORY: Clear to auscultation. Breath sounds equal bilaterally. No wheezes, rales, or rhonchi. GASTROINTESTINAL: Abdomen soft, non-tender, nondistended. EXTREMITIES: No edema or joint tenderness. BACK: Nontender without deformity or crepitance. No flank tenderness. NEURO: AOx3. Left hemiparesis from remote stroke noted SKIN: No rash or erythema of visible areas Initial Vital Signs Initial Vital Signs: Vital Signs Temperature 98.4 F 06/15/24 20:02 Pulse Rate 92 H 06/15/24 20:02 Respiratory Rate 34 H 06/15/24 20:02 Blood Pressure 111/57 L 06/15/24 20:02 Pulse Oximetry 100 06/15/24 20:02 Oxygen Delivery Method Nasal Cannula 06/15/24 20:02 Oxygen Flow Rate 3 06/15/24 20:02 Course Orders Ordered: ED Orders 06/15/24 19:45 Complete Blood Count AUTO DIFF Stat Comprehensive Metabolic Panel Stat Lipase Stat Reticulocyte Count, Percent Stat Troponin & CK Cardiac Panel Stat 06/15/24 19:54 XR chest 1V Stat EKG-12 Lead Stat 06/15/24 21:05 Respiratory Panel (Film Array) Stat 06/15/24 21:44 Troponin I Stat 06/15/24 21:45 Lactate (Lactic Acid) Stat 06/15/24 23:53 Education, smoking cessation ONGOING 06/16/24 Complete Blood Count AUTO DIFF Routine Comprehensive Metabolic Panel Routine 06/16/24 00:05 Blood Culture Stat Acetaminophen (Acetaminophen 325 Mg Tablet) 650 mg PO Q6H PRN PRN Reason: Fever/Mild Pain (1-3) Hydrocodone Bitart/Acetaminophen (Hydrocodone/Acet 5/325 Tablet) 1 tab PO Q4H PRN PRN Reason: Pain, Moderate (4-6) Hydromorphone HCl (Hydromorphone 0.5 Mg Inj) 0.5 mg IV Q2H PRN PRN Reason: Pain, Severe (7-10) Last Admin: 06/16/24 00:24 Dose: 0.5 mg Documented By: Sodium Chloride (Normal Saline 0.9%) 1,000 mls @ 100 mls/hr IV CONT JONATHAN Sodium Chloride (Normal Saline 0.9%) 1,000 mls @ 1,000 mls/hr IV BOLUS ONE Stop: 06/16/24 01:26 PST Last Admin: 06/16/24 00:35 Dose: 1,000 mls/hr Documented By: Naloxone HCl (Naloxone 0.4 Mg/Ml Vial) 0.2 mg IV Q2MIN PRN PRN Reason: Opiate Reversal Ondansetron HCl (Ondansetron 4 Mg/2 Ml Inj) 4 mg IV Q8HR PRN PRN Reason: Nausea And Vomiting Discontinued Medications Hydrocodone Bitart/Acetaminophen (Hydrocodone/Acet 5/325 Tablet) 1 tab PO NOW ONE Stop: 06/15/24 23:18 Last Admin: 06/15/24 23:36 Dose: 1 tab Documented By: Doxycycline Hyclate (Doxycycline Hyclate 100 Mg Tablet) 100 mg PO NOW ONE Stop: 06/16/24 00:09 Last Admin: 06/16/24 00:24 Dose: 100 mg Documented By: Hydromorphone HCl (Hydromorphone 1 Mg Inj) 1 mg IV NOW ONE Stop: 06/15/24 19:53 Last Admin: 06/15/24 20:04 Dose: 1 mg Documented By: Hydromorphone HCl (Hydromorphone 1 Mg Inj) 1 mg IV NOW ONE Stop: 06/15/24 21:01 Last Admin: 06/15/24 21:03 Dose: 1 mg Documented By: Sodium Chloride (Normal Saline 0.9%) 1,000 mls @ 1,000 mls/hr IV BOLUS ONE Stop: 06/15/24 20:51 Last Infusion: 06/15/24 21:09 Dose: Infused Documented By: Admin: 06/15/24 20:05 Dose: 1,000 mls/hr Documented By: Ceftriaxone Sodium 1,000 mg/ (Sodium Chloride) 100 mls @ 200 mls/hr IV NOW ONE Stop: 06/16/24 00:30 Last Admin: 06/16/24 00:34 Dose: 200 mls/hr Documented By: Morphine Sulfate (Morphine 4 Mg/Ml Inj) 4 mg IV NOW ONE Stop: 06/15/24 22:15 Last Admin: 06/15/24 22:18 Dose: 4 mg Documented By: Potassium Chloride (Potassium Chloride 20 Meq/15 Ml Udc) 20 meq PO NOW ONE Stop: 06/15/24 20:23 Last Admin: 06/15/24 20:49 Dose: 20 meq Documented By: Vital Signs Vital signs: Vital Signs - 8 hr 06/15/24 20:02 06/15/24 20:45 06/15/24 21:13 Temperature 98.4 F Pulse Rate 92 H 65 85 Respiratory Rate 34 H 26 H 22 Blood Pressure 111/57 L 133/85 102/65 Pulse Oximetry 100 99 98 Oxygen Delivery Method Nasal Cannula Nasal Cannula Nasal Cannula Oxygen Flow Rate 3 3 3 Medical Decision Making Lab Data Lab results reviewed: Yes I reviewed the patient's lab results. Lab results narrative: White blood cell count 94993, hemoglobin 9.0, platelets 196. Potassium 3.3, noted low. Remainder of basic metabolic panel unremarkable, normal renal function. Liver functions normal. Troponin 0.015 measurable but low. 06/15/24 19:45 06/15/24 19:45 Labs: Lab Results 06/15/24 06/15/24 06/15/24 Range/Units 19:45 21:05 21:44 WBC 18.2 H (4.5-11.0) X10^3/uL RBC 3.57 L (4.5-5.9) X10^6/uL Hgb 9.0 L (13.5-17.5) g/dL Hct 27.0 L (41-53) % MCV 75.5 L (80-100) fL MCH 25.3 L (26-34) PG MCHC 33.5 (30-36) % RDW 19.0 H (11.6-14.8) % Plt Count 196 (150-400) X10^3/uL Neut % (Auto) Not Reportable Lymph % (Auto) Not Reportable [place] % (Auto) Not Reportable Eos % (Auto) Not Reportable Baso % (Auto) Not Reportable Lymph # (Auto) Not Reportable [place] # (Auto) Not Reportable Baso # (Auto) Not Reportable Total Counted 100 Seg Neutrophils % 40.0 (38-70) % Band Neutrophils % 1.0 L (3-7) % Lymphocytes % (Manual) 56.0 H (25-45) % Monocytes % (Manual) 2.0 (2-11) % Eosinophils % (Manual) 1.0 L (2-4) % Neutrophils # (Manual) 7462 H (0056-3943) /uL RBC Morphology See below Polychromasia 1+ H Anisocytosis 3+ H Sickle Cells 2+ H Target Cells 2+ H Schistocytes 1+ H Percent Retic 6.3 H (0.9-2.6) % Sodium 137 (137-145) mmol/L Potassium 3.3 L (3.4-5.1) mmol/L Chloride 103 (98-107) mmol/L Carbon Dioxide 21 L (22-32) mmol/L BUN 6 L (9-20) mg/dL Creatinine 0.71 (0.66-1.25) mg/dL Estimated GFR > 60 (>60) mL/min BUN/Creatinine Ratio 8.5 (6-22) Glucose 117 H (70-100) mg/dL Lactate (0.7-2.1) mmol/L Calcium 8.6 (8.4-10.2) mg/dL Total Bilirubin 2.4 H (0.2-1.3) mg/dL AST 45 (17-59) IU/L ALT 21 (<50) IU/L Alkaline Phosphatase 77 (38-126) U/L Total Creatine Kinase 87 (55-170) U/L Troponin I 0.015 0.014 (0.01-0.034) ng/mL Total Protein 7.8 (6.3-8.2) g/dL Albumin 4.3 (3.5-5.0) g/dL Globulin 3.5 (1.7-4.1) g/dL Albumin/Globulin Ratio 1.2 (1.0-2.8) Lipase 144 (23-300) U/L Chlamy pneumoniae PCR Not detected (Not Detect) Adenovirus (PCR) Not detected (Not Detect) B. pertussis DNA (PCR) Not detected (Not Detect) B.parapertussis DNA PCR Not detected (Not Detecte) Coronavirus OC43 (PCR) Not detected (Not Detect) Coronavirus HKU1 (PCR) Not detected (Not Detect) Coronavirus 229E (PCR) Not detected (Not Detect) SARS-CoV-2 (PCR) Not detected (Not Detecte) Coronavirus NL63 (PCR) Not detected (Not Detect) Human Metapneumovir PCR Not detected (Not Detect) Influenza Type A (PCR) Not detected (Not Detect) Influenza Type B (PCR) Not detected (Not Detect) M. pneumoniae (PCR) Not detected (Not Detect) Parainfluenza 1 (PCR) Not detected (Not Detect) Parainfluenza 2 (PCR) Not detected (Not Detect) Parainfluenza 3 (PCR) Not detected (Not Detect) Parainfluenza 4 (PCR) Not detected (Not Detect) RSV (PCR) Not detected (Not Detect) Entero/Rhino (PCR) Detected H (Not Detect) 06/15/24 Range/Units 21:45 WBC (4.5-11.0) X10^3/uL RBC (4.5-5.9) X10^6/uL Hgb (13.5-17.5) g/dL Hct (41-53) % MCV (80-100) fL MCH (26-34) PG MCHC (30-36) % RDW (11.6-14.8) % Plt Count (150-400) X10^3/uL Neut % (Auto) Lymph % (Auto) [place] % (Auto) Eos % (Auto) Baso % (Auto) Lymph # (Auto) [place] # (Auto) Baso # (Auto) Total Counted Seg Neutrophils % (38-70) % Band Neutrophils % (3-7) % Lymphocytes % (Manual) (25-45) % Monocytes % (Manual) (2-11) % Eosinophils % (Manual) (2-4) % Neutrophils # (Manual) (3133-1156) /uL RBC Morphology Polychromasia Anisocytosis Sickle Cells Target Cells Schistocytes Percent Retic (0.9-2.6) % Sodium (137-145) mmol/L Potassium (3.4-5.1) mmol/L Chloride (98-107) mmol/L Carbon Dioxide (22-32) mmol/L BUN (9-20) mg/dL Creatinine (0.66-1.25) mg/dL Estimated GFR (>60) mL/min BUN/Creatinine Ratio (6-22) Glucose (70-100) mg/dL Lactate 5.8 H* (0.7-2.1) mmol/L Calcium (8.4-10.2) mg/dL Total Bilirubin (0.2-1.3) mg/dL AST (17-59) IU/L ALT (<50) IU/L Alkaline Phosphatase (38-126) U/L Total Creatine Kinase (55-170) U/L Troponin I (0.01-0.034) ng/mL Total Protein (6.3-8.2) g/dL Albumin (3.5-5.0) g/dL Globulin (1.7-4.1) g/dL Albumin/Globulin Ratio (1.0-2.8) Lipase (23-300) U/L Chlamy pneumoniae PCR (Not Detect) Adenovirus (PCR) (Not Detect) B. pertussis DNA (PCR) (Not Detect) B.parapertussis DNA PCR (Not Detecte) Coronavirus OC43 (PCR) (Not Detect) Coronavirus HKU1 (PCR) (Not Detect) Coronavirus 229E (PCR) (Not Detect) SARS-CoV-2 (PCR) (Not Detecte) Coronavirus NL63 (PCR) (Not Detect) Human Metapneumovir PCR (Not Detect) Influenza Type A (PCR) (Not Detect) Influenza Type B (PCR) (Not Detect) M. pneumoniae (PCR) (Not Detect) Parainfluenza 1 (PCR) (Not Detect) Parainfluenza 2 (PCR) (Not Detect) Parainfluenza 3 (PCR) (Not Detect) Parainfluenza 4 (PCR) (Not Detect) RSV (PCR) (Not Detect) Entero/Rhino (PCR) (Not Detect) ECG Data Attestation: I personally reviewed and interpreted this ECG as follows: Interpretation: Normal sinus rhythm with rate of 73, no obvious ST segment elevation or depression changes. Somewhat wandering baseline noted. First-degree AV block noted. LA 272, QRS 86, QTC 449. [facility] Narrative Medical decision making narrative: 23-year-old male with history of sickle disease, left hemiparesis from childhood stroke, complains of two hours duration of bilateral chest pain. Arrival by EMS with oxygen given during transport. Not usually on home oxygen. Lungs clear on examination. Abdominal exam unremarkable, left hemiparesis noted. EKG, chest x-ray, labs, respiratory panel results pending. IV Dilaudid, IV fluid bolus. Chest x-ray without acute changes, see radiology report. EKG without acute changes, initial troponin measurable but quite low/negative. We will repeat interval troponin. Respiratory panel results pending White blood cell count 21586, hemoglobin 9.0, platelets adequate. Lactate added and was normal. Blood culture sent. Oral doxycycline. Potassium 3.3 low noted, oral potassium ordered. Respiratory panel positive for rhinovirus, negative for other pathogens tested. Patient still having discomfort, repeat IV Dilaudid dose. Repeat troponin 0.014 also low, not increasing. Still having pain, IV morphine dose. Reticulocyte 6.3% noted, last measured 9% in Sep 2023. He has no established physical ther, has change residence from [facility] to [facility]. 2345, case discussed with hospitalist Dr. Frederick, we would like consultation at least from Hematology, to see if appropriate to admit here at this facility, further management recommendations besides analgesics and fluids if needed, etc. 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 0030, case discussed with Dr. Larson hematology [facility], who believes patient can be managed here at this time, hemoglobin 9.0 higher than his September value, reticulocyte count 6.3% noted here, chest x-ray without infiltrates, does not believe CT angiogram of the chest is necessary at this time, likely more consistent with vaso-occlusive crisis than true acute chest syndrome, however he agrees with empiric antibiotics for possible community-acquired pneumonia even with negative chest x-ray, with blood cultures sent, elevated lactate noted, IV ceftriaxone and oral doxycycline would suffice, can admit here for continued IV opiate analgesics and hydration.. He can see patient in follow up for establish with his hematology group, but suggested [facility] hematology group closer to his current [facility] residence. IV ceftriaaxone added, oral Doxycycline given prior. Blood cultures requested prior. Critical Care Time Critical Care Time Total Critical Care Time: 31 Attestation: The high probability of a clinically significant, sudden or life threatening deterioration of the [cardiopulmonary, hematologic] systems required my full and direct attention, intervention and personal management. The aggregate critical care time was 31 minutes. Evaluation for sickle cell crisis, acute vaso-occlusive sickle crisis, severe pain, at increased risk for severe sepsis, elevated lactate noted, blood culture sent, empiric antibiotics initiated, consultation obtained with youth development specialist not available here, to see if appropriate to admit to rule hospital setting, communication with hospitalist to coordinate admission here for further treatment, multiple doses of analgesics required for pain control, as well as IV fluid hydration. This time is in addition to time spent performing reported procedures but includes the following: [x] Data Review and interpretation [x] Patient assessment and monitoring of vital signs [x] Documentation [x] Medication orders and management Discharge Plan Departure Patient Disposition: Admitted as Observation Clinical Impression: Sickle cell disease with crisis, Rhinovirus infection, Acute hypokalemia Admit Date/Time: 06/16/24 00:43 Admit Provider: Ace Frederick
[2024-06-15 20:37] LABS: Neutrophils Absolute Manual 7462 /uL (3000-5900); Total Cells Counted 100
[2024-06-15 20:38] LABS: Anisocytosis 3+
[2024-06-15 20:39] LABS: Polychromasia 1+; Schistocytes 1+; Sickle Cells 2+; Target Cells 2+
[2024-06-15 20:45] VITALS: BP 133/85; PULSE 65; RESP 26; O2SAT 99
[2024-06-15] MEDS: POTASSIUM CHLORIDE 20 MEQ/15 ML UDC PO (20:49)
--- NOTE | 2024-06-15 21:01 | PC.NURSE ---
Pt continues to remain painful. Dr Yost notified. Verbal order for 1 mg IV dilaudid received and administered to Pt.
--- NOTE | 2024-06-15 21:10 | EKG_ITS ---
[place] [id number] [place] [id number] Test Date: 2024-06-15 Pat Name: Lucretia Keller Department: 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
[2024-06-15 21:13] VITALS: BP 102/65; PULSE 85; RESP 22; O2SAT 98
[2024-06-15 21:59] LABS: Adenovirus Not Detected (Not Detect); B. parapertussis Not Detected (Not Detecte); Bordetella pertussis Not Detected (Not Detect); Chlamydophila pneumoniae Not Detected (Not Detect); Coronavirus 229E Not Detected (Not Detect); Coronavirus HKU1 Not Detected (Not Detect); Coronavirus NL 63 Not Detected (Not Detect); Coronavirus OC43 Not Detected (Not Detect); Human Metapneumovirus Not Detected (Not Detect); Human Rhinovirus/Enterovirus Detected (Not Detect); Influenza A Not Detected (Not Detect); Influenza B Not Detected (Not Detect); Mycoplasma pneumoniae Not Detected (Not Detect); Parainfluenza Virus 1 Not Detected (Not Detect); Parainfluenza Virus 2 Not Detected (Not Detect); Parainfluenza Virus 3 Not Detected (Not Detect); Parainfluenza Virus 4 Not Detected (Not Detect); Respiratory Syncytial Virus Not Detected (Not Detect); SARS- CoV-2 Not Detected (Not Detecte)
--- NOTE | 2024-06-15 22:15 | PC.NURSE ---
Pt continues to remain painful. Verbal order received from Dr Yost for 4 mg Morphine IV. Verbal order read back and administered.
[2024-06-15] MEDS: MORPHINE 4 MG/ML INJ IV (22:18)
[2024-06-15 22:20] LABS: Troponin I 0.014 ng/mL (0.01-0.034)
[2024-06-15] MEDS: HYDROCODONE/ACET 5/325 TABLET 1 TAB PO (23:36)
[2024-06-16] VITALS (8 sets, daily range): BP systolic 101–130; BP diastolic 70–96; PULSE 80–104; RESP 20–30; TEMP 36.6–37.4; O2SAT 93–98; BMI 21.4
[2024-06-16 00:19] LABS: Lactate (Lactic Acid) 5.8 mmol/L (0.7-2.1)
[2024-06-16] MEDS: HYDROMORPHONE 0.5 MG INJ IV ×2 (00:24→01:51)
[2024-06-16] MEDS: DOXYCYCLINE HYCLATE 100 MG TABLET PO ×2 (00:24→21:25)
[2024-06-16] MEDS: cefTRIAXone 1,000 MG in SODIUM CHLORIDE 0.9% 100 ML 200 MG IV ×2 (00:34→21:25)
[2024-06-16] MEDS: SODIUM CHLORIDE 0.9% 1,000 ML 1000 ML IV (00:35)
[2024-06-16] MEDS: MORPHINE 4 MG/ML INJ IV ×12 (01:22→23:43)
[2024-06-16 01:40] LABS: Lactate 2HR (Lactic Acid Rflx) 1.1 mmol/L (0.7-2.1)
[2024-06-16 01:44] LABS: Reflexed Lactate in 2 Hours Y
[2024-06-16] MEDS: SODIUM CHLORIDE 0.9% 1,000 ML 100 ML IV ×3 (01:56→22:13)
[2024-06-16] MEDS: HYDROMORPHONE 0.5 MG INJ 1 MG IV ×2 (04:12→06:26)
[2024-06-16] MEDS: HYDROCODONE/ACET 5/325 TABLET 1 TAB PO ×3 (04:12→16:31)
--- NOTE | 2024-06-16 04:18 | P.HP_ITS ---
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 The patient states that his last sickle crisis was 09/2023. The patient started to have acute onset of these symptoms about a few hours prior to admission. The patient however denies any fever, chills, nausea, vomiting, diarrhea, headache, neck/back/hip/leg pain. In our ER, the patient was hemodynamically stable. WBC 18, recticulocyte % 6.3, Hb 9.0, potassium 3.3 and lactic acid 5.8. Total bili 2.4 and positive for entero/rhino virus. CXR however was clear. Our ER physician did call Dr. Forrest, Fpga Design Engineer from [facility], who recommended that we can keep the patient here with empiric antibiotics, follow up blood cultures, IVF and pain control. Also Dr. Forrest does not think we need CTA at this time as this is more consistent with vaso-occlusive crisis than true acute chest syndrome. IV Ceftriaxone and doxycycline ordered. Also patient call follow up with his stroboroma operator group post dishcarge. [facility] Social History Smoking Status: Never smoker Meds Home Medications and Allergies Home Medications Medication Instructions Recorded Confirmed Type hydrocodone 5 mg-acetaminophen 325 1 tab PO Q6H PRN pain #20 tabs 12/06/22 07/01/23 Rx mg tablet hydrocodone 5 mg-acetaminophen 325 1 tab PO Q6H PRN pain #20 tabs 07/01/23 Rx mg tablet hydroxyurea (sickle cell) 200 mg 200 mg PO DAILY #30 caps 07/01/23 Rx capsule hydrocodone 5 mg-acetaminophen 325 1 tab PO BEDTIME PRN pain #30 tabs 08/20/23 Rx mg tablet Allergies Allergy/AdvReac Type Severity Reaction Status Date / Time No Known Drug Allergies Allergy Verified 09/17/23 15:17 Review of Systems Review of Systems ROS: Yes All systems reviewed with the patient and are negative except as otherwise documented Exam Vital Signs (past 8 hours): - 06/16/24 01:11 PDT 06/16/24 01:30 PST Temperature 98.6 F 98 F Pulse Rate 85 80 Respiratory Rate 22 25 H Blood Pressure 101/95 H 119/80 Pulse Oximetry 98 98 Oxygen Delivery Method Room Air Oxygen Delivery Method Room Air Oxygen Flow Rate 3 Narrative Exam Narrative: GENERAL: The patient is not in any acute distressed. Awake and alert. HEENT: Nonicteric sclerae, PERRLA, EOMI. Oropharynx clear. Moist mucous membranes. Conjunctivae appear well perfused. HEART: Regular rate and rhythm without murmurs. No lower extremities edema. LUNGS: Clear to auscultation bilaterally. No wheezing, crackles or rhonchi ABDOMEN: Soft, positive bowel sounds, nontender. SKIN: No rash, no excessive bruising, petechiae, or purpura. NEUROLOGIC: left sided hemiparesis. AxO x 3. Cranial nerves II-XII intact Objective Labs 06/15/24 19:45 06/15/24 19:45 Labs: Laboratory Results - last 24 hr 06/15/24 06/15/24 06/15/24 19:45 21:05 21:44 WBC 18.2 H RBC 3.57 L Hgb 9.0 L Hct 27.0 L MCV 75.5 L MCH 25.3 L MCHC 33.5 RDW 19.0 H Plt Count 196 Neut % (Auto) Not Reportable Lymph % (Auto) Not Reportable [place] % (Auto) Not Reportable Eos % (Auto) Not Reportable Baso % (Auto) Not Reportable Lymph # (Auto) Not Reportable [place] # (Auto) Not Reportable Baso # (Auto) Not Reportable Total Counted 100 Seg Neutrophils % 40.0 Band Neutrophils % 1.0 L Lymphocytes % (Manual) 56.0 H Monocytes % (Manual) 2.0 Eosinophils % (Manual) 1.0 L Neutrophils # (Manual) 7462 H RBC Morphology See below Polychromasia 1+ H Anisocytosis 3+ H Sickle Cells 2+ H Target Cells 2+ H Schistocytes 1+ H Percent Retic 6.3 H Sodium 137 Potassium 3.3 L Chloride 103 Carbon Dioxide 21 L BUN 6 L Creatinine 0.71 Estimated GFR > 60 BUN/Creatinine Ratio 8.5 Glucose 117 H Lactate Calcium 8.6 Total Bilirubin 2.4 H AST 45 ALT 21 Alkaline Phosphatase 77 Total Creatine Kinase 87 Troponin I 0.015 0.014 Total Protein 7.8 Albumin 4.3 Globulin 3.5 Albumin/Globulin Ratio 1.2 Lipase 144 Chlamy pneumoniae PCR Not detected Adenovirus (PCR) Not detected B. pertussis DNA (PCR) Not detected B.parapertussis DNA PCR Not detected Coronavirus OC43 (PCR) Not detected Coronavirus HKU1 (PCR) Not detected Coronavirus 229E (PCR) Not detected SARS-CoV-2 (PCR) Not detected Coronavirus NL63 (PCR) Not detected Human Metapneumovir PCR Not detected Influenza Type A (PCR) Not detected Influenza Type B (PCR) Not detected M. pneumoniae (PCR) Not detected Parainfluenza 1 (PCR) Not detected Parainfluenza 2 (PCR) Not detected Parainfluenza 3 (PCR) Not detected Parainfluenza 4 (PCR) Not detected RSV (PCR) Not detected Entero/Rhino (PCR) Detected H 06/15/24 06/16/24 21:45 00:59 WBC RBC Hgb Hct MCV MCH MCHC RDW Plt Count Neut % (Auto) Lymph % (Auto) [place] % (Auto) Eos % (Auto) Baso % (Auto) Lymph # (Auto) [place] # (Auto) Baso # (Auto) Total Counted Seg Neutrophils % Band Neutrophils % Lymphocytes % (Manual) Monocytes % (Manual) Eosinophils % (Manual) Neutrophils # (Manual) RBC Morphology Polychromasia Anisocytosis Sickle Cells Target Cells Schistocytes Percent Retic Sodium Potassium Chloride Carbon Dioxide BUN Creatinine Estimated GFR BUN/Creatinine Ratio Glucose Lactate 5.8 H* 1.1 Calcium Total Bilirubin AST ALT Alkaline Phosphatase Total Creatine Kinase Troponin I Total Protein Albumin Globulin Albumin/Globulin Ratio Lipase Chlamy pneumoniae PCR Adenovirus (PCR) B. pertussis DNA (PCR) B.parapertussis DNA PCR Coronavirus OC43 (PCR) Coronavirus HKU1 (PCR) Coronavirus 229E (PCR) SARS-CoV-2 (PCR) Coronavirus NL63 (PCR) Human Metapneumovir PCR Influenza Type A (PCR) Influenza Type B (PCR) M. pneumoniae (PCR) Parainfluenza 1 (PCR) Parainfluenza 2 (PCR) Parainfluenza 3 (PCR) Parainfluenza 4 (PCR) RSV (PCR) Entero/Rhino (PCR) Assessment & Plan Assessment & Plan narrative: Possible vaso-occlusive crisis with history of Sickle cell anemia. Admit the patient to medical telemetry under inpatient. Note, our ER physician did call Dr. Forrest, Fpga Design Engineer from [facility], who recommended that we can keep the patient here with empiric antibiotics, follow up blood cultures, IVF and pain control. Also Dr. Forrest does not think we need CTA at this time as this is more consistent with vaso-occlusive crisis than true acute chest syndrome. IV Ceftriaxone and doxycycline ordered. Also patient call follow up with his stroboroma operator group post dishcarge. Elevated lactic acid. Note patient lactic acid 5.4. Normalized after IVF. Monitor for now. Continue IVF and antibiotics as above. Mild hypokalemia. Potassium 3.3. s/p replacement given in ER. Monitor and replace if needed. Dehydration. IVF. DVT PPx SCDs Code status full code Disposition home in 2 days Time-Based Coding :: [TOTAL MINUTES] spent with patient and on the chart (including review of chart, obtaining history, exam, reviewing outside data, placing orders, documenting exam and treatment plan, and counseling patient) on [DATE].
[2024-06-16 05:14] LABS: Add Manual Diff / Slide Review NO; Basophils Absolute Auto 100 /uL (0-100); Basophils Percent Auto 0.6 % (0-2); Eosinophils Absolute Auto 100 /uL (0-450); Eosinophils Percent Auto 0.6 % (2-4); Hematocrit 24.3 % (41-53); Hemoglobin 8.2 g/dL (13.5-17.5); Lymphocytes Absolute Auto 5800 /uL (1100-4500); Lymphocytes Percent Auto 34.7 % (25-40); Mean Corpuscular HGB Conc 33.9 % (30-36); Mean Corpuscular Hemoglobin 25.2 PG (26-34); Mean Corpuscular Volume 74.5 fL (80-100); Monocytes Absolute Auto 1400 /uL (0-900); Monocytes Percent Auto 8.7 % (3-14); Neutrophils Absolute Auto 9300 /uL (1500-7000); Neutrophils Percent Auto 55.4 % (50-75); Platelet Count 134 X10^3/uL (150-400); Red Blood Cell Count 3.26 X10^6/uL (4.5-5.9); Red Cell Distribution Width 18.7 % (11.6-14.8); White Blood Cell Count 16.7 X10^3/uL (4.5-11.0)
--- NOTE | 2024-06-16 05:38 | PC.ADMIT ---
[address] [facility] [address] Admission Note: Patient admitted to AC unit from ED @ 01:30. Stand pivot transfer to bed. Patient reports pain 10/10, pain med given as ordered. NS@ 100mL/ hr. Oriented to room and call light. Bed alarm on, call light within reach. The patient,Lucretia Keller,23 y/o, was given written information regarding hospital policies, unit procedures and contact persons. Patient's smoking status: Never smoker. Vital Signs - 8 hr 06/16/24 01:11 PDT 06/16/24 01:05 PST 06/16/24 01:30 PST Temperature 98.6 F 98 F Pulse Rate 85 80 Respiratory Rate 22 25 H Blood Pressure 101/95 H 119/80 Pulse Oximetry 98 98 Oxygen Delivery Method Room Air Nasal Cannula Oxygen Flow Rate 06/16/24 05:00 Temperature 98.7 F Pulse Rate 103 H Respiratory Rate 20 Blood Pressure 127/96 H Pulse Oximetry 95 Oxygen Delivery Method Oxygen Flow Rate 0
[2024-06-16 05:39] LABS: Alanine Aminotransferase 20 IU/L (<50); Albumin 4.1 g/dL (3.5-5.0); Albumin Globulin Ratio 1.2 (1.0-2.8); Alkaline Phosphatase 89 U/L (38-126); Aspartate Aminotransferase 72 IU/L (17-59); BUN Creatinine Ratio 9.1 (6-22); Bilirubin Total 1.9 mg/dL (0.2-1.3); Blood Urea Nitrogen 5 mg/dL (9-20); Carbon Dioxide 22 mmol/L (22-32); Chloride 109 mmol/L (98-107); Estimated Glomerular Filt Rate > 60 mL/min (>60); Globulin 3.3 g/dL (1.7-4.1); Glucose 111 mg/dL (70-100); HEMOLYSIS < 15 (0-50); Potassium 3.8 mmol/L (3.4-5.1); Sodium 138 mmol/L (137-145); Total Protein 7.4 g/dL (6.3-8.2)
[2024-06-16] MEDS: ONDANSETRON 4 MG/2 ML INJ IV (06:26)
--- NOTE | 2024-06-16 09:07 | CM.DANOTE ---
B DCP Assessment note pt is a 23yo M here with hypokalemia/rhino virus/PMH of sickle cell disease, childhood CVA. PCP [facility] and [employer] ORIENTOR reviewed EMR. per chart review, narrow fabric calenderer at [facility] recommends IV abx, continued blood cultures, and f/u with narrow fabric calenderer at dc. Per chart, pt lives in [place] with partner john Dyson at baseline. mobilizing indep with nursing in room. no identified barriers to safe dc home at this time. P: home with close OP f/u likely recommended. ELLIOT unknown. CM team will continue to follow as needed VISHNU Thacker Discharge Planning/Care Management CM Discharge Assessment Start: 06/16/24 09:04 Freq: Status: Active Protocol: Document 06/16/24 09:05 (Rec: 06/16/24 09:06 [id number]) Discharge Planning Assessment Assigned Skin Therapist VISHNU Carreon DPOA/Assigned Designee Name Kariskushal Contact Information [phone] Advance Directives? No History Provided By Medical Record Prior Living Arrangements House Independent with ADL's Yes Is patient alert and oriented? Yes Barriers to Discharge No Discharge Plan Home Referrals Initiated None needed Review Status In Process Please Provide Date Initial DC 06/16/24 Assessment Was Performed Next Review Type Continued Stay Review
[2024-06-16] MEDS: DOXYCYCLINE 100 MG in SODIUM CHLORIDE 0.9% 100 ML IV ×2 (10:52→22:12)
--- NOTE | 2024-06-16 11:03 | PM.PN.1 ---
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 The patient states that his last sickle crisis was 09/2023. The patient started to have acute onset of these symptoms about a few hours prior to admission. The patient however denies any fever, chills, nausea, vomiting, diarrhea, headache, neck/back/hip/leg pain. In our ER, the patient was hemodynamically stable. WBC 18, recticulocyte % 6.3, Hb 9.0, potassium 3.3 and lactic acid 5.8. Total bili 2.4 and positive for entero/rhino virus. CXR however was clear. Our ER physician did call Dr. Forrest, Automotive Parts Manager from [facility], who recommended that we can keep the patient here with empiric antibiotics, follow up blood cultures, IVF and pain control. Also Dr. Forrest does not think we need CTA at this time as this is more consistent with vaso-occlusive crisis than true acute chest syndrome. IV Ceftriaxone and doxycycline ordered. Also patient call follow up with his assistant public defender group post dishcarge. Interval history: The patient reports ongoing severe chest and diffuse pain. he requests more pain medication. He moved from [place] to [place] 2 days ago and does not have a doctor in the area, frequently residing in [place]. Exam Vital Signs (past 8 hours): - 06/16/24 05:00 06/16/24 08:00 Temperature 98.7 F 98.7 F Pulse Rate 103 H 104 H Respiratory Rate 20 21 Blood Pressure 127/96 H 125/74 Pulse Oximetry 95 93 Oxygen Flow Rate 0 0 Oxygen Delivery Method Nasal Cannula Oxygen Flow Rate 0 Narrative Exam Narrative: GENERAL: This is a well-nourished, well-developed patient, male, appears uncomfortable. HEAD: Atraumatic. Normocephalic. No temporal or scalp tenderness. EYES: Pupils equal round and reactive. Extraocular motions intact. No scleral icterus. No injection or drainage. ENT: Mucous membranes pink and moist. NECK: Trachea midline. No JVD, bruits or lymphadenopathy. Supple, nontender, no meningeal signs. CARDIOVASCULAR: Regular rate and rhythm without murmurs, gallops, or rubs. RESPIRATORY: Clear to auscultation. GASTROINTESTINAL: Abdomen soft, non-tender, nondistended. EXTREMITIES: No clubbing, cyanosis, or edema. BACK: Nontender without deformity or crepitance. No flank tenderness. NEUROLOGIC: Alert, oriented, speech fluent, left teofilo paresis. DERMATOLOGIC: No rashes or skin lesions. Objective Labs 06/16/24 04:45 06/16/24 04:45 Labs: Laboratory Results - last 24 hr 06/15/24 06/15/24 06/15/24 19:45 21:05 21:44 WBC 18.2 H RBC 3.57 L Hgb 9.0 L Hct 27.0 L MCV 75.5 L MCH 25.3 L MCHC 33.5 RDW 19.0 H Plt Count 196 Neut % (Auto) Not Reportable Lymph % (Auto) Not Reportable [place] % (Auto) Not Reportable Eos % (Auto) Not Reportable Baso % (Auto) Not Reportable Neut # (Auto) Lymph # (Auto) Not Reportable [place] # (Auto) Not Reportable Eos # (Auto) Baso # (Auto) Not Reportable Total Counted 100 Seg Neutrophils % 40.0 Band Neutrophils % 1.0 L Lymphocytes % (Manual) 56.0 H Monocytes % (Manual) 2.0 Eosinophils % (Manual) 1.0 L Neutrophils # (Manual) 7462 H RBC Morphology See below Polychromasia 1+ H Anisocytosis 3+ H Sickle Cells 2+ H Target Cells 2+ H Schistocytes 1+ H Percent Retic 6.3 H Sodium 137 Potassium 3.3 L Chloride 103 Carbon Dioxide 21 L BUN 6 L Creatinine 0.71 Estimated GFR > 60 BUN/Creatinine Ratio 8.5 Glucose 117 H Lactate Calcium 8.6 Total Bilirubin 2.4 H AST 45 ALT 21 Alkaline Phosphatase 77 Total Creatine Kinase 87 Troponin I 0.015 0.014 Total Protein 7.8 Albumin 4.3 Globulin 3.5 Albumin/Globulin Ratio 1.2 Lipase 144 Chlamy pneumoniae PCR Not detected Adenovirus (PCR) Not detected B. pertussis DNA (PCR) Not detected B.parapertussis DNA PCR Not detected Coronavirus OC43 (PCR) Not detected Coronavirus HKU1 (PCR) Not detected Coronavirus 229E (PCR) Not detected SARS-CoV-2 (PCR) Not detected Coronavirus NL63 (PCR) Not detected Human Metapneumovir PCR Not detected Influenza Type A (PCR) Not detected Influenza Type B (PCR) Not detected M. pneumoniae (PCR) Not detected Parainfluenza 1 (PCR) Not detected Parainfluenza 2 (PCR) Not detected Parainfluenza 3 (PCR) Not detected Parainfluenza 4 (PCR) Not detected RSV (PCR) Not detected Entero/Rhino (PCR) Detected H 06/15/24 06/16/24 06/16/24 21:45 00:59 04:45 WBC 16.7 H RBC 3.26 L Hgb 8.2 L Hct 24.3 L MCV 74.5 L MCH 25.2 L MCHC 33.9 RDW 18.7 H Plt Count 134 L Neut % (Auto) 55.4 Lymph % (Auto) 34.7 [place] % (Auto) 8.7 Eos % (Auto) 0.6 L Baso % (Auto) 0.6 Neut # (Auto) 9300 H Lymph # (Auto) 5800 H [place] # (Auto) 1400 H Eos # (Auto) 100 Baso # (Auto) 100 Total Counted Seg Neutrophils % Band Neutrophils % Lymphocytes % (Manual) Monocytes % (Manual) Eosinophils % (Manual) Neutrophils # (Manual) RBC Morphology Polychromasia Anisocytosis Sickle Cells Target Cells Schistocytes Percent Retic Sodium 138 Potassium 3.8 Chloride 109 H Carbon Dioxide 22 BUN 5 L Creatinine 0.55 L Estimated GFR > 60 BUN/Creatinine Ratio 9.1 Glucose 111 H Lactate 5.8 H* 1.1 Calcium 8.0 L Total Bilirubin 1.9 H AST 72 H ALT 20 Alkaline Phosphatase 89 Total Creatine Kinase Troponin I Total Protein 7.4 Albumin 4.1 Globulin 3.3 Albumin/Globulin Ratio 1.2 Lipase Chlamy pneumoniae PCR Adenovirus (PCR) B. pertussis DNA (PCR) B.parapertussis DNA PCR Coronavirus OC43 (PCR) Coronavirus HKU1 (PCR) Coronavirus 229E (PCR) SARS-CoV-2 (PCR) Coronavirus NL63 (PCR) Human Metapneumovir PCR Influenza Type A (PCR) Influenza Type B (PCR) M. pneumoniae (PCR) Parainfluenza 1 (PCR) Parainfluenza 2 (PCR) Parainfluenza 3 (PCR) Parainfluenza 4 (PCR) RSV (PCR) Entero/Rhino (PCR) [facility] Social History Smoking Status: Never smoker Assessment & Plan Assessment & Plan narrative: 1. Likely vaso-occlusive crisis with history of sickle cell anemia. Admit the patient to medical telemetry under inpatient. Note, our ER physician did call Dr. Forrest, Automotive Parts Manager from [facility], who recommended that we can keep the patient here with empiric antibiotics, follow up blood cultures, IVF and pain control, and supplemental oxygen therapy. Also Dr. Forrest does not think we need CTA at this time as this is more consistent with vaso-occlusive crisis than true acute chest syndrome. IV Ceftriaxone and doxycycline ordered. Also patient call follow up with his assistant public defender group post dishcarge. 2. Elevated lactic acid, resolved. Note patient lactic acid 5.5. Normalized after IVF to 1.1. Continue IVF and antibiotics as above. 3. Hypokalemia, improved. 4. Dehydration. Continue IV fluids. 5. DVT prophylaxis: Sequential compression devices 6. Code status: Full code Disposition home in 2 days PROFEE Charge codes Subsequent inpatient/observation care: [id number]
[2024-06-16] MEDS: ACETAMINOPHEN 325 MG TABLET 650 MG PO (11:48)
--- NOTE | 2024-06-16 15:30 | PC.NURSE ---
Addendum entered by Michell Roper R.N. 06/16/24 16:56: Patient just given po vicodin for breakthrough pain, he is resting at this time. Will check patients pain level in 30 minutes and see how he is doing. Original Note: Patient has been medicated with Morphine 4mg iv x 5 times. He has been in pain and uncomfortable for most of the day. He is getting vicodin for breakthrough pain and tylenol as well. Pulse ox placed on patients finger continous and his pulse ox is 98%. He is tolerating the iv morphine well and rr are within normal limits. Patient is voiding per urinal and visiting with his gf.
[2024-06-17] VITALS (7 sets, daily range): BP systolic 125–140; BP diastolic 75–82; PULSE 84–97; RESP 18–22; TEMP 36.7–37.5; O2SAT 91–99
[2024-06-17] MEDS: HYDROMORPHONE 2 MG TABLET PO ×3 (01:26→08:18)
[2024-06-17] MEDS: MORPHINE 4 MG/ML INJ IV ×2 (01:26→03:27)
--- NOTE | 2024-06-17 01:34 | PC.NURSE ---
Pt's pain has not been controlled tonight despite getting morphine 4mg IV Q1H. Pain is always 10/10 and is generalized. Spoke with the MD about my concerns and suggested PO pain control in between morphine administrations to see if the patient's pain is better controlled. MD agreed and ordered PO dilaudid 2 mg Q4H PRN.
[2024-06-17] MEDS: HYDROMORPHONE 1 MG INJ IV (05:45)
[2024-06-17] MEDS: OXYCODONE ER 20 MG TAB PO ×3 (08:18→20:02)
[2024-06-17] MEDS: ONDANSETRON 4 MG/2 ML INJ IV (08:21)
[2024-06-17 08:42] LABS: Hematocrit 27.7 % (41-53); Hemoglobin 9.3 g/dL (13.5-17.5); Mean Corpuscular HGB Conc 33.8 % (30-36); Mean Corpuscular Hemoglobin 24.8 PG (26-34); Mean Corpuscular Volume 73.5 fL (80-100); Platelet Count 173 X10^3/uL (150-400); Red Blood Cell Count 3.76 X10^6/uL (4.5-5.9); White Blood Cell Count 15.3 X10^3/uL (4.5-11.0)
[2024-06-17 08:45] LABS: Add Manual Diff / Slide Review YES
[2024-06-17 08:50] LABS: Alanine Aminotransferase 65 IU/L (<50); Albumin 4.1 g/dL (3.5-5.0); Albumin Globulin Ratio 1.1 (1.0-2.8); Alkaline Phosphatase 121 U/L (38-126); Aspartate Aminotransferase 203 IU/L (17-59); Bilirubin Total 2.4 mg/dL (0.2-1.3); Blood Urea Nitrogen 6 mg/dL (9-20); Calcium 8.7 mg/dL (8.4-10.2); Carbon Dioxide 22 mmol/L (22-32); Chloride 107 mmol/L (98-107); Estimated Glomerular Filt Rate > 60 mL/min (>60); Globulin 3.6 g/dL (1.7-4.1); Glucose 122 mg/dL (70-100); HEMOLYSIS < 15 (0-50); Magnesium 1.7 mg/dL (1.6-2.3); Potassium 3.7 mmol/L (3.4-5.1); Sodium 136 mmol/L (137-145); Total Protein 7.7 g/dL (6.3-8.2)
[2024-06-17] MEDS: HYDROMORPHONE 2 MG TABLET 4 MG PO ×4 (10:51→23:08)
[2024-06-17] MEDS: DOXYCYCLINE HYCLATE 100 MG TABLET PO ×2 (10:52→20:02)
[2024-06-17 11:04] LABS: Neutrophils Absolute Manual 12546 /uL (3000-5900); Nucleated Red Blood Cells 10 #/Diff; Total Cells Counted 100
[2024-06-17 11:05] LABS: Anisocytosis 2+; Microcytosis 2+; Platelet Estimate Adequate on smear; Poikilocytosis 2+; Polychromasia 2+; Schistocytes 2+
[2024-06-17 11:06] LABS: Hypochromasia 1+; Target Cells 2+
[2024-06-17 11:07] LABS: Toxic Granulation Present; Toxic Vacuolation 1
[2024-06-17] MEDS: SODIUM CHLORIDE 0.9% 1,000 ML 100 ML IV ×2 (11:57→22:14)
[2024-06-17] MEDS: HYDROMORPHONE 2 MG INJ IV ×3 (11:58→19:51)
--- NOTE | 2024-06-17 13:11 | PC.NURSE ---
Addendum entered by Michell Roper R.N. 06/17/24 19:22: Patient is not eating at meals or drinking replacement shakes when encouraged and offered several times and is aware. Original Note: Patient seems to be feeling a bit better today. We are giving patient oral dilaudid for discomfort and iv dilaudid for breakthrough pain. He is more talkative and even drank some of his ice tea and ate some crackers.
--- NOTE | 2024-06-17 16:27 | CM.DPNOTE ---
DCP Note SPIN INSTRUCTOR reviewed EMR. per provider/RN report, pt remains in a lot of pain. Lots of IV pain medication, pt still reports 10/10 pain. ELLIOT unknown due to pt's pain. SPIN INSTRUCTOR met briefly with pt in room due to pt moaning and thrashing in pain. Confirms just moved to [place], wants a new PCP here. needs new sand car worker. denies other CM needs at this time. SPIN INSTRUCTOR messaged TCM team, they kindly arranged for PCP appt with Dr. Meza 06/21/24 at 0930. if pt does not dc by then, CM team will message TCM team about changing appt time. SPIN INSTRUCTOR [facility] (p [phone]) to see if any assistance with DC is needed. Cristine appreciative of our team arranging PCP f/u, can help with sand car worker arrangements if needed. Plans to call CM team back tomorrow to follow up. P: anticipate home with partner when medically stable. PCP SOC appt Thursday 06/21, CM team will update TCM OP team if pt does not dc in time. sand car worker plan pending. CM team will continue to follow closely VISHNU Thacker
--- NOTE | 2024-06-17 16:28 | P.PN_ITS ---
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 The patient states that his last sickle crisis was 09/2023. The patient started to have acute onset of these symptoms about a few hours prior to admission. The patient however denies any fever, chills, nausea, vomiting, diarrhea, headache, neck/back/hip/leg pain. In our ER, the patient was hemodynamically stable. WBC 18, recticulocyte % 6.3, Hb 9.0, potassium 3.3 and lactic acid 5.8. Total bili 2.4 and positive for entero/rhino virus. CXR however was clear. Our ER physician did call Dr. Forrest, Business Instructor from [facility], who recommended that we can keep the patient here with empiric antibiotics, follow up blood cultures, IVF and pain control. Also Dr. Forrest does not think we need CTA at this time as this is more consistent with vaso-occlusive crisis than true acute chest syndrome. IV Ceftriaxone and doxycycline ordered. Also patient call follow up with his senior analytical chemist group post dishcarge. Interval history: The patient reports ongoing pain today, a bit better with increased dilaudid today. He reports bilateral knee, left shoulder joint pains currently. Chest pain continues primarily with inhalation, hard to take a deep breath today. His Hg did improve slightly this morning, WBC improving. Working on ways to get his hydroxyurea to the hospital today. Exam Vital Signs (past 8 hours): - 06/17/24 12:00 06/17/24 16:00 Temperature 99 F 99.5 F Pulse Rate 94 H 97 H Respiratory Rate 18 18 Blood Pressure 130/82 126/82 Pulse Oximetry 98 98 Oxygen Flow Rate 2 2 Fraction of Inspired Oxygen 32 SaO2/FiO2 Ratio 309 Oxygen Delivery Method Nasal Cannula Oxygen Flow Rate 2 Narrative Exam Narrative: GENERAL: This is a well-nourished, well-developed patient, male, appears uncomfortable. HEAD: Atraumatic. Normocephalic. No temporal or scalp tenderness. EYES: Pupils equal round and reactive. Extraocular motions intact. No scleral icterus. No injection or drainage. ENT: Mucous membranes pink and moist. NECK: Trachea midline. No JVD, bruits or lymphadenopathy. Supple, nontender, no meningeal signs. CARDIOVASCULAR: Regular rate and rhythm without murmurs, gallops, or rubs. RESPIRATORY: Clear to auscultation. GASTROINTESTINAL: Abdomen soft, non-tender, nondistended. EXTREMITIES: No clubbing, cyanosis, or edema. BACK: Nontender without deformity or crepitance. No flank tenderness. NEUROLOGIC: Alert, oriented, speech fluent, left teofilo paresis. DERMATOLOGIC: No rashes or skin lesions. Objective Labs 06/17/24 08:25 06/17/24 08:25 Labs: Laboratory Results - last 24 hr 06/17/24 08:25 WBC 15.3 H RBC 3.76 L Hgb 9.3 L Hct 27.7 L MCV 73.5 L MCH 24.8 L MCHC 33.8 RDW 21.0 H Plt Count 173 Neut % (Auto) Not Reportable Lymph % (Auto) Not Reportable [place] % (Auto) Not Reportable Eos % (Auto) Not Reportable Baso % (Auto) Not Reportable Lymph # (Auto) Not Reportable [place] # (Auto) Not Reportable Baso # (Auto) Not Reportable Total Counted 100 Seg Neutrophils % 77.0 H D Band Neutrophils % 5.0 Lymphocytes % (Manual) 13.0 L Monocytes % (Manual) 3.0 Metamyelocytes % 2.0 H Neutrophils # (Manual) 00560 H Nucleated RBCs 10 H Toxic Granulation Present H Toxic Vacuolation 1 Platelet Estimate Adequate on smear RBC Morphology See below Polychromasia 2+ H Hypochromasia 1+ H Poikilocytosis 2+ H Anisocytosis 2+ H Microcytosis 2+ H Target Cells 2+ H Schistocytes 2+ H Sodium 136 L Potassium 3.7 Chloride 107 Carbon Dioxide 22 BUN 6 L Creatinine 0.50 L Estimated GFR > 60 BUN/Creatinine Ratio 12.0 Glucose 122 H Calcium 8.7 Magnesium 1.7 Total Bilirubin 2.4 H AST 203 H ALT 65 H Alkaline Phosphatase 121 Total Protein 7.7 Albumin 4.1 Globulin 3.6 [facility] 1.1 [facility] Social History Smoking Status: Never smoker Assessment & Plan Assessment & Plan narrative: 1. Sickle cell anemia with vaso-occlusive crisis, present on admission - continue supportive care with oxygen as needed, IV fluids - patient and pharmacy working on ways to get his hydroxyurea which should continue once it arrives. 200 mg daily. - monitor renal function, daily h/h - significant difficulties with pain control since admission. Continue PO and IV dilaudid, started oxycontin 20 mg TID to hopefully manage pain better today. - CBC today shows improving WBC count, continue empiric antibiotics for PNA as discussed below. - Hg stable to slightly improved on today's labs. monitor daily with CBC, monitor Bili as well. 2. Acute respiratory failure, rhinovirus infection and possible superimposed bacterial pneumonia, present on admission - continue empiric antibiotics with ceftriaxone and doxycycline given his leukocytosis, rhinoviral infection for possible pneumonia 2. Elevated lactic acid, resolved. Note patient lactic acid 5.5. Normalized after IVF to 1.1. Continue IVF and antibiotics as above. 3. Hypokalemia, improved. 4. Dehydration. Continue IV fluids. 5. DVT prophylaxis: Sequential compression devices 6. Code status: Full code Dispo: inpatient, discharge home with resolution of hypoxia and improved pain, unclear timing likely multiple days. Time-Based Coding :: [TOTAL MINUTES] spent with patient and on the chart (including review of chart, obtaining history, exam, reviewing outside data, placing orders, documenting exam and treatment plan, and counseling patient) on [DATE].
[2024-06-17] MEDS: cefTRIAXone 1,000 MG in SODIUM CHLORIDE 0.9% 100 ML 200 MG IV (20:02)
[2024-06-18] VITALS (13 sets, daily range): BP systolic 121–140; BP diastolic 65–83; PULSE 86–121; RESP 16–19; TEMP 37.2–38.8; O2SAT 94–98
[2024-06-18] MEDS: ACETAMINOPHEN 325 MG TABLET 650 MG PO ×2 (00:41→18:00)
[2024-06-18] MEDS: HYDROMORPHONE 2 MG INJ IV ×11 (00:42→22:00)
[2024-06-18] MEDS: HYDROMORPHONE 2 MG TABLET 4 MG PO ×2 (04:27→08:07)
--- NOTE | 2024-06-18 05:00 | PC.NURSE ---
pt reports a better night tonight with pain control, however could not get his pain level below an 8, even after pain medication was administered. encouraged pt to drink meal replacement shakes, given his poor appetite but he did not try to drink them. was able to tolerate ice water throughout the night.
[2024-06-18 05:38] LABS: Add Manual Diff / Slide Review NO; Basophils Absolute Auto 100 /uL (0-100); Basophils Percent Auto 0.6 % (0-2); Eosinophils Absolute Auto 100 /uL (0-450); Eosinophils Percent Auto 0.6 % (2-4); Hematocrit 24.8 % (41-53); Hemoglobin 8.5 g/dL (13.5-17.5); Lymphocytes Absolute Auto 800 /uL (1100-4500); Lymphocytes Percent Auto 6.6 % (25-40); Mean Corpuscular HGB Conc 34.2 % (30-36); Mean Corpuscular Hemoglobin 25.6 PG (26-34); Mean Corpuscular Volume 74.7 fL (80-100); Monocytes Absolute Auto 3100 /uL (0-900); Monocytes Percent Auto 24.5 % (3-14); Neutrophils Absolute Auto 8500 /uL (1500-7000); Neutrophils Percent Auto 67.7 % (50-75); Platelet Count 154 X10^3/uL (150-400); Red Blood Cell Count 3.32 X10^6/uL (4.5-5.9); Red Cell Distribution Width 21.7 % (11.6-14.8); White Blood Cell Count 12.5 X10^3/uL (4.5-11.0)
[2024-06-18 06:00] LABS: Alanine Aminotransferase 57 IU/L (<50); Albumin 3.8 g/dL (3.5-5.0); Albumin Globulin Ratio 1.1 (1.0-2.8); Alkaline Phosphatase 134 U/L (38-126); Aspartate Aminotransferase 141 IU/L (17-59); BUN Creatinine Ratio 11.8 (6-22); Bilirubin Total 2.7 mg/dL (0.2-1.3); Blood Urea Nitrogen 6 mg/dL (9-20); Calcium 8.3 mg/dL (8.4-10.2); Carbon Dioxide 26 mmol/L (22-32); Chloride 104 mmol/L (98-107); Estimated Glomerular Filt Rate > 60 mL/min (>60); Globulin 3.4 g/dL (1.7-4.1); Glucose 98 mg/dL (70-100); HEMOLYSIS < 15 (0-50); Magnesium 1.8 mg/dL (1.6-2.3); Potassium 3.3 mmol/L (3.4-5.1); Sodium 135 mmol/L (137-145); Total Protein 7.2 g/dL (6.3-8.2)
[2024-06-18 06:24] LABS: Anisocytosis 2+; Hypochromasia 1+; Macrocytosis 1+; Microcytosis 2+; Platelet Estimate Adequate on smear; Poikilocytosis 2+; Schistocytes 1+; Target Cells 2+
[2024-06-18] MEDS: OXYCODONE ER 20 MG TAB PO ×3 (08:06→20:08)
[2024-06-18] MEDS: DOXYCYCLINE HYCLATE 100 MG TABLET PO ×2 (08:06→20:09)
[2024-06-18] MEDS: SODIUM CHLORIDE 0.9% 1,000 ML 100 ML IV ×2 (08:08→18:02)
[2024-06-18] MEDS: POTASSIUM CHLORIDE 20 MEQ TAB 40 MEQ PO ×2 (10:46→16:29)
--- NOTE | 2024-06-18 10:58 | PM.PN.1 ---
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 The patient states that his last sickle crisis was 09/2023. The patient started to have acute onset of these symptoms about a few hours prior to admission. The patient however denies any fever, chills, nausea, vomiting, diarrhea, headache, neck/back/hip/leg pain. In our ER, the patient was hemodynamically stable. WBC 18, recticulocyte % 6.3, Hb 9.0, potassium 3.3 and lactic acid 5.8. Total bili 2.4 and positive for entero/rhino virus. CXR however was clear. Our ER physician did call Dr. Forrest, Concrete Smoother from [facility], who recommended that we can keep the patient here with empiric antibiotics, follow up blood cultures, IVF and pain control. Also Dr. Forrest does not think we need CTA at this time as this is more consistent with vaso-occlusive crisis than true acute chest syndrome. IV Ceftriaxone and doxycycline ordered. 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 Interval history: The patient reports ongoing pain today, a bit better with increased dilaudid today. He reports bilateral knee, hips, and left shoulder joint pains currently. Chest pain continues primarily with inhalation, hard to take a deep breath today. Exam Vital Signs (past 8 hours): - 06/18/24 04:00 06/18/24 08:00 Temperature 99.4 F 99 F Pulse Rate 86 98 H Respiratory Rate 18 16 Blood Pressure 140/66 136/79 Pulse Oximetry 96 98 Oxygen Flow Rate 3 3 Fraction of Inspired Oxygen 28 SaO2/FiO2 Ratio 346 Oxygen Delivery Method Nasal Cannula Oxygen Flow Rate 3 Narrative Exam Narrative: GENERAL: This is a well-nourished, well-developed patient, male, appears uncomfortable. HEAD: Atraumatic. Normocephalic. No temporal or scalp tenderness. EYES: Pupils equal round and reactive. Extraocular motions intact. No scleral icterus. No injection or drainage. ENT: Mucous membranes pink and moist. NECK: Trachea midline. No JVD, bruits or lymphadenopathy. Supple, nontender, no meningeal signs. CARDIOVASCULAR: Regular rate and rhythm without murmurs, gallops, or rubs. RESPIRATORY: Clear to auscultation. GASTROINTESTINAL: Abdomen soft, non-tender, nondistended. EXTREMITIES: No clubbing, cyanosis, or edema. BACK: Nontender without deformity or crepitance. No flank tenderness. NEUROLOGIC: Alert, oriented, speech fluent, left teofilo paresis. DERMATOLOGIC: No rashes or skin lesions. Objective Labs 06/18/24 05:07 06/18/24 05:07 Labs: Laboratory Results - last 24 hr 06/17/24 06/18/24 08:25 05:07 WBC 12.5 H RBC 3.32 L Hgb 8.5 L Hct 24.8 L MCV 74.7 L MCH 25.6 L MCHC 34.2 RDW 21.7 H Plt Count 154 Neut % (Auto) 67.7 Lymph % (Auto) 6.6 L [place] % (Auto) 24.5 H Eos % (Auto) 0.6 L Baso % (Auto) 0.6 Neut # (Auto) 8500 H Lymph # (Auto) 800 L [place] # (Auto) 3100 H Eos # (Auto) 100 Baso # (Auto) 100 Total Counted 100 Seg Neutrophils % 77.0 H D Band Neutrophils % 5.0 Lymphocytes % (Manual) 13.0 L Monocytes % (Manual) 3.0 Metamyelocytes % 2.0 H Neutrophils # (Manual) 71627 H Nucleated RBCs 10 H Toxic Granulation Present H Toxic Vacuolation 1 Platelet Estimate Adequate on smear Adequate on smear RBC Morphology See below See below Polychromasia 2+ H Hypochromasia 1+ H 1+ H Poikilocytosis 2+ H 2+ H Anisocytosis 2+ H 2+ H Microcytosis 2+ H 2+ H Macrocytosis 1+ H Target Cells 2+ H 2+ H Schistocytes 2+ H 1+ H Sodium 135 L Potassium 3.3 L Chloride 104 Carbon Dioxide 26 BUN 6 L Creatinine 0.51 L Estimated GFR > 60 BUN/Creatinine Ratio 11.8 Glucose 98 Calcium 8.3 L Magnesium 1.8 Total Bilirubin 2.7 H AST 141 H ALT 57 H Alkaline Phosphatase 134 H Total Protein 7.2 Albumin 3.8 Globulin 3.4 Album[facility] 1.1 [facility] Social History Smoking Status: Never smoker Assessment & Plan Assessment & Plan narrative: 1. Sickle cell anemia with vaso-occlusive crisis, present on admission - continue supportive care with oxygen as needed, IV fluids - patient and pharmacy working on ways to get his hydroxyurea which should continue once it arrives. 200 mg daily. - monitor renal function, daily h/h - significant difficulties with pain control since admission. Continue PO and IV dilaudid, continue oxycontin 20 mg TID to hopefully manage pain better today. - CBC today shows improving WBC count, continue empiric antibiotics for PNA as discussed below. - Hg stable between 8-9 today's labs. monitor daily with CBC, monitor Bili as well. Still with schistocytes on morphology review. 2. Sepsis with elevated bilirubin, thrombocytopenia, Acute respiratory failure, secondary to rhinovirus infection and possible superimposed bacterial pneumonia, present on admission - continue empiric antibiotics with ceftriaxone and doxycycline given his leukocytosis, rhinoviral infection for possible pneumonia along with elevated SOFA score for possible sepsis. 2. Elevated lactic acid, resolved. Note patient lactic acid 5.5. Normalized after IVF to 1.1. Continue IVF and antibiotics as above. 3. Hypokalemia, improved. 4. Dehydration. Continue IV fluids. 5. DVT prophylaxis: Sequential compression devices 6. Code status: Full code Dispo: inpatient, discharge home with resolution of hypoxia and improved pain, unclear timing likely multiple days. Time-Based Coding :: [TOTAL MINUTES] spent with patient and on the chart (including review of chart, obtaining history, exam, reviewing outside data, placing orders, documenting exam and treatment plan, and counseling patient) on [DATE].
--- NOTE | 2024-06-18 11:18 | CM.DPNOTE ---
AIDA Cont Provided patient with his new provider appointment scheduled with Dr Meza 06/21 at 0930. Patient appreciative and denies further need at this time. POOJA
--- NOTE | 2024-06-18 18:51 | DI.RAD.S_ITS ---
PROCEDURE: XR CHEST 1V INDICATIONS: fever TECHNIQUE: One view of the chest was acquired. COMPARISON: [facility], MADDIE, XR CHEST 1V, 06/15/2024, 19:57. [facility], CR, XR CHEST 1V, 08/20/2023, 16:24. FINDINGS: Surgical changes and devices: None. Lungs and pleura: Lungs are clear. No pleural effusions or pneumothorax. Mediastinum: Mediastinal contours appear normal. Heart size is normal. Bones and chest wall: No suspicious bony lesions. Overlying soft tissues appear unremarkable. IMPRESSION: No acute cardiopulmonary abnormality is seen. Approved by: Mauricio Davila M.D. on 06/18/2024 at 19:37
[2024-06-18] MEDS: cefTRIAXone 1,000 MG in SODIUM CHLORIDE 0.9% 100 ML 200 MG IV (20:07)
[2024-06-18 23:05] LABS: Appearance Urine UA CLEAR; Bilirubin Urine UA NEGATIVE (NEGATIVE); Color Urine UA YELLOW; Glucose Urine UA NEGATIVE (Negative); Ketones Urine UA TRACE (NEGATIVE); Leukocyte Esterase Urine UA NEGATIVE (NEGATIVE); Nitrite Urine UA NEGATIVE (Negative); Occult Blood Urine UA NEGATIVE (Negative); Protein Urine UA NEGATIVE (Negative); pH Urine UA 6.5 (4.5-8.0)
[2024-06-18 23:26] LABS: Bacteria Urine None Seen; Culture Indicated Urine Cult Not Indicated; RBC Urine None Seen (0-5/HPF); Squamous Epithelial Cell Urine 0-1 /HPF (0-5/HPF); Urine Volume 10mL (spun); WBC Urine None Seen (0-5/HPF)
[2024-06-19] VITALS (10 sets, daily range): BP systolic 109–128; BP diastolic 61–81; PULSE 98–119; RESP 16–20; TEMP 37.1–38.4; O2SAT 92–99
[2024-06-19] MEDS: HYDROMORPHONE 2 MG INJ IV ×14 (00:14→23:48)
[2024-06-19] MEDS: ACETAMINOPHEN 325 MG TABLET 650 MG PO ×2 (00:19→20:00)
[2024-06-19] MEDS: HYDROMORPHONE 2 MG TABLET PO ×2 (02:06→22:56)
[2024-06-19 05:32] LABS: Hematocrit 24.8 % (41-53); Hemoglobin 8.3 g/dL (13.5-17.5); Mean Corpuscular HGB Conc 33.4 % (30-36); Mean Corpuscular Hemoglobin 25.3 PG (26-34); Mean Corpuscular Volume 75.7 fL (80-100); Platelet Count 172 X10^3/uL (150-400); Red Blood Cell Count 3.28 X10^6/uL (4.5-5.9); Red Cell Distribution Width 21.9 % (11.6-14.8); White Blood Cell Count 14.9 X10^3/uL (4.5-11.0)
[2024-06-19 05:34] LABS: Add Manual Diff / Slide Review YES
[2024-06-19 05:45] LABS: Alanine Aminotransferase 49 IU/L (<50); Albumin 3.8 g/dL (3.5-5.0); Albumin Globulin Ratio 1.1 (1.0-2.8); Alkaline Phosphatase 156 U/L (38-126); Aspartate Aminotransferase 105 IU/L (17-59); BUN Creatinine Ratio 12.8 (6-22); Bilirubin Total 3.6 mg/dL (0.2-1.3); Blood Urea Nitrogen 6 mg/dL (9-20); Calcium 8.2 mg/dL (8.4-10.2); Carbon Dioxide 28 mmol/L (22-32); Chloride 101 mmol/L (98-107); Estimated Glomerular Filt Rate > 60 mL/min (>60); Globulin 3.4 g/dL (1.7-4.1); Glucose 86 mg/dL (70-100); HEMOLYSIS < 15 (0-50); Magnesium 1.8 mg/dL (1.6-2.3); Potassium 3.7 mmol/L (3.4-5.1); Sodium 135 mmol/L (137-145); Total Protein 7.2 g/dL (6.3-8.2)
[2024-06-19] MEDS: SODIUM CHLORIDE 0.9% 1,000 ML 100 ML IV ×2 (05:45→15:41)
[2024-06-19 06:12] LABS: Neutrophils Absolute Manual 10579 /uL (3000-5900); Nucleated Red Blood Cells 7 #/Diff; Total Cells Counted 100
[2024-06-19 06:13] LABS: Anisocytosis 2+; Hypochromasia 1+; Macrocytosis 1+; Microcytosis 2+; Platelet Estimate Adequate on smear; Poikilocytosis 1+; Target Cells 2+
[2024-06-19 06:14] LABS: Schistocytes 1+
[2024-06-19] MEDS: DOXYCYCLINE HYCLATE 100 MG TABLET PO ×2 (08:13→20:00)
[2024-06-19] MEDS: OXYCODONE ER 20 MG TAB PO (08:13)
[2024-06-19 12:04] LABS: Sickle Cells 2+
--- NOTE | 2024-06-19 16:33 | PM.PN.1 ---
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 The patient states that his last sickle crisis was 09/2023. The patient started to have acute onset of these symptoms about a few hours prior to admission. The patient however denies any fever, chills, nausea, vomiting, diarrhea, headache, neck/back/hip/leg pain. In our ER, the patient was hemodynamically stable. WBC 18, recticulocyte % 6.3, Hb 9.0, potassium 3.3 and lactic acid 5.8. Total bili 2.4 and positive for entero/rhino virus. CXR however was clear. Our ER physician did call Dr. Forrest, Spotter from [facility], who recommended that we can keep the patient here with empiric antibiotics, follow up blood cultures, IVF and pain control. Also Dr. Forrest does not think we need CTA at this time as this is more consistent with vaso-occlusive crisis than true acute chest syndrome. IV Ceftriaxone and doxycycline ordered. 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 Interval history: The patient reports ongoing pain today, a bit better with increased dilaudid but still getting IV almost every hour. He reports bilateral knee, hips, and left shoulder joint pains currently. Chest pain improved, now on room air. T bili up today, fever yesterday and today with unremarkable infectious workup. Exam Vital Signs (past 8 hours): - 06/19/24 09:07 06/19/24 12:00 06/19/24 16:00 Temperature 101.1 F H 100.6 F H Pulse Rate 116 H 113 H Respiratory Rate 16 18 Blood Pressure 128/72 118/73 Pulse Oximetry 95 92 95 Oxygen Delivery Method Nasal Cannula Oxygen Flow Rate 2 0 0 Fraction of Inspired Oxygen 28 SaO2/FiO2 Ratio 335 Oxygen Delivery Method Nasal Cannula Oxygen Flow Rate 0 Narrative Exam Narrative: GENERAL: This is a well-nourished, well-developed patient, male, appears uncomfortable. HEAD: Atraumatic. Normocephalic. No temporal or scalp tenderness. EYES: Pupils equal round and reactive. Extraocular motions intact. No scleral icterus. No injection or drainage. ENT: Mucous membranes pink and moist. NECK: Trachea midline. No JVD, bruits or lymphadenopathy. Supple, nontender, no meningeal signs. CARDIOVASCULAR: Regular rate and rhythm without murmurs, gallops, or rubs. RESPIRATORY: Clear to auscultation. GASTROINTESTINAL: Abdomen soft, non-tender, nondistended. EXTREMITIES: No clubbing, cyanosis, or edema. BACK: Nontender without deformity or crepitance. No flank tenderness. NEUROLOGIC: Alert, oriented, speech fluent, left teofilo paresis. DERMATOLOGIC: No rashes or skin lesions. Objective Labs 06/19/24 04:51 06/19/24 04:51 Labs: Laboratory Results - last 24 hr 06/18/24 06/19/24 19:57 04:51 WBC 14.9 H RBC 3.28 L Hgb 8.3 L Hct 24.8 L MCV 75.7 L MCH 25.3 L MCHC 33.4 RDW 21.9 H Plt Count 172 Neut % (Auto) Not Reportable Lymph % (Auto) Not Reportable [place] % (Auto) Not Reportable Eos % (Auto) Not Reportable Baso % (Auto) Not Reportable Lymph # (Auto) Not Reportable [place] # (Auto) Not Reportable Baso # (Auto) Not Reportable Total Counted 100 Seg Neutrophils % 58.0 Band Neutrophils % 13.0 H Lymphocytes % (Manual) 19.0 L Monocytes % (Manual) 9.0 Eosinophils % (Manual) 1.0 L Neutrophils # (Manual) 75191 H Nucleated RBCs 7 H Hypogranular Neuts Cancelled Platelet Estimate Adequate on smear RBC Morphology See below Hypochromasia 1+ H Poikilocytosis 1+ H Anisocytosis 2+ H Microcytosis 2+ H Macrocytosis 1+ H Sickle Cells 2+ H Target Cells 2+ H Schistocytes 1+ H Sodium 135 L Potassium 3.7 Chloride 101 Carbon Dioxide 28 BUN 6 L Creatinine 0.47 L Estimated GFR > 60 BUN/Creatinine Ratio 12.8 Glucose 86 Calcium 8.2 L Magnesium 1.8 Total Bilirubin 3.6 H AST 105 H ALT 49 Alkaline Phosphatase 156 H Total Protein 7.2 Albumin 3.8 Globulin 3.4 Albumin/Globulin Ratio 1.1 Urine Color Yellow Urine Appearance Clear Urine pH 6.5 Ur Specific [place] 1.010 Urine Protein Negative Urine Glucose (UA) Negative Urine Ketones Trace H Urine Occult Blood Negative Urine Nitrate Negative Urine Bilirubin Negative Urine Urobilinogen 1.0 Ur Leukocyte Esterase Negative Urine RBC None seen Urine WBC None seen Ur Squamous Epith Cells 0-1 /hpf Urine Bacteria None seen Ur Culture Indicated? Cult not indicated Vol Urine Centrifuged 10ml (spun) [facility] Social History Smoking Status: Never smoker Assessment & Plan Assessment & Plan narrative: 1. Sickle cell anemia with vaso-occlusive crisis, present on admission - continue supportive care with oxygen as needed, IV fluids - patient and pharmacy working on ways to get his hydroxyurea which should continue once it arrives. 200 mg daily. - monitor renal function, daily h/h - significant difficulties with pain control since admission. Continue PO and IV dilaudid, try 75 mcg fentanyl patch based on morphine equivalent calculations today. - CBC today shows improving WBC count, continue empiric antibiotics for PNA as discussed below. - Hg stable between 8-9 today's labs. monitor daily with CBC, monitor Bili as well. Still with schistocytes on morphology review. 2. Sepsis with elevated bilirubin, thrombocytopenia, Acute respiratory failure, secondary to rhinovirus infection and possible superimposed bacterial pneumonia, present on admission - continue empiric antibiotics with ceftriaxone and doxycycline given his leukocytosis, rhinoviral infection for possible pneumonia along with elevated SOFA score for possible sepsis. - fever 11/5 without remarkable infectious workup. Likely due to active hemolysis as bilirubin did go up slightly. - hypoxia resolved today, 06/19. 2. Elevated lactic acid, resolved. Note patient lactic acid 5.5. Normalized after IVF to 1.1. Continue IVF and antibiotics as above. 3. Hypokalemia, improved. 4. Dehydration. Continue IV fluids. 5. DVT prophylaxis: Lovenox 6. Code status: Full code Dispo: inpatient, discharge home with resolution of hypoxia and improved pain, unclear timing likely multiple days. Time-Based Coding :: [TOTAL MINUTES] spent with patient and on the chart (including review of chart, obtaining history, exam, reviewing outside data, placing orders, documenting exam and treatment plan, and counseling patient) on [DATE].
[2024-06-19] MEDS: cefTRIAXone 1,000 MG in SODIUM CHLORIDE 0.9% 100 ML 200 MG IV (20:01)
[2024-06-20] MEDS: HYDROMORPHONE 2 MG INJ IV ×11 (02:36→23:47)
[2024-06-20] MEDS: SODIUM CHLORIDE 0.9% 1,000 ML 100 ML IV ×3 (03:23→23:43)
[2024-06-20 04:35] VITALS: BP 105/75; PULSE 101; RESP 12; TEMP 37.4; O2SAT 93
[2024-06-20 06:33] LABS: Hematocrit 23.8 % (41-53); Hemoglobin 7.9 g/dL (13.5-17.5); Mean Corpuscular HGB Conc 33.4 % (30-36); Mean Corpuscular Hemoglobin 25.4 PG (26-34); Mean Corpuscular Volume 75.9 fL (80-100); Platelet Count 183 X10^3/uL (150-400); Red Blood Cell Count 3.13 X10^6/uL (4.5-5.9); Red Cell Distribution Width 19.9 % (11.6-14.8); White Blood Cell Count 13.8 X10^3/uL (4.5-11.0)
[2024-06-20 06:35] LABS: Add Manual Diff / Slide Review YES
[2024-06-20 06:48] LABS: Alanine Aminotransferase 46 IU/L (<50); Albumin 3.9 g/dL (3.5-5.0); Alkaline Phosphatase 168 U/L (38-126); Aspartate Aminotransferase 76 IU/L (17-59); BUN Creatinine Ratio 14.3 (6-22); Bilirubin Total 3.8 mg/dL (0.2-1.3); Blood Urea Nitrogen 6 mg/dL (9-20); Calcium 8.5 mg/dL (8.4-10.2); Carbon Dioxide 28 mmol/L (22-32); Chloride 100 mmol/L (98-107); Estimated Glomerular Filt Rate > 60 mL/min (>60); Globulin 3.8 g/dL (1.7-4.1); Glucose 105 mg/dL (70-100); HEMOLYSIS < 15 (0-50); Potassium 3.5 mmol/L (3.4-5.1); Sodium 134 mmol/L (137-145); Total Protein 7.7 g/dL (6.3-8.2)
[2024-06-20 08:00] VITALS: BP 116/78; PULSE 107; RESP 17; TEMP 37.4; O2SAT 95
[2024-06-20 08:04] LABS: Neutrophils Absolute Manual 9660 /uL (3000-5900); Nucleated Red Blood Cells 7 #/Diff; Total Cells Counted 100
[2024-06-20 08:05] LABS: Sickle Cells 2+; Target Cells 2+
[2024-06-20 08:06] LABS: Anisocytosis 2+; Microcytosis 1+
[2024-06-20 08:07] LABS: Hypochromasia 1+; Macrocytosis 1+
[2024-06-20] MEDS: HYDROMORPHONE 2 MG TABLET 4 MG PO ×3 (08:19→20:52)
[2024-06-20] MEDS: DOXYCYCLINE HYCLATE 100 MG TABLET PO ×2 (08:21→20:52)
[2024-06-20 12:00] VITALS: BP 114/74; PULSE 105; RESP 18; TEMP 36.5; O2SAT 94
--- NOTE | 2024-06-20 12:34 | CM.DPNOTE ---
Addendum entered by VISHNU Gregg 06/20/24 15:56: New PCP appt scheduled with Dr Meza for 06/26 at 1130. Patient made aware. Original Note: DCP Cont Reviewed chart. Patient discussed in multidisciplinary rounds. Pain management continues to be an issue due to patient's sickle cell disease crisis. Plan remains discharge home w/SO w/close outpatient follow up. Notified the care transitions team with [facility] that patient is not being discharged home today and is not expected to make the new patient appt with Dr Meza 06/21 at 0930. Requested that this be rescheduled. CM team following clinical course closely in case any addtl. discharge needs or concerns arise. POOJA
[2024-06-20] MEDS: POTASSIUM CHLORIDE 20 MEQ TAB 40 MEQ PO (13:02)
[2024-06-20 16:00] VITALS: BP 112/70; PULSE 111; RESP 19; TEMP 36.7; O2SAT 95
--- NOTE | 2024-06-20 18:00 | P.PN_ITS ---
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 The patient states that his last sickle crisis was 09/2023. The patient started to have acute onset of these symptoms about a few hours prior to admission. The patient however denies any fever, chills, nausea, vomiting, diarrhea, headache, neck/back/hip/leg pain. In our ER, the patient was hemodynamically stable. WBC 18, recticulocyte % 6.3, Hb 9.0, potassium 3.3 and lactic acid 5.8. Total bili 2.4 and positive for entero/rhino virus. CXR however was clear. Our ER physician did call Dr. Forrest, [facility] from [facility], who recommended that we can keep the patient here with empiric antibiotics, follow up blood cultures, IVF and pain control. Also Dr. Forrest does not think we need CTA at this time as this is more consistent with vaso-occlusive crisis than true acute chest syndrome. IV Ceftriaxone and doxycycline ordered. Also patient call follow up with his tele marketing executive group post dishcarge. Interval history: The patient reports ongoing pain today with the dilaudid patch and he is requiring less IV dilaudid today Exam Vital Signs (past 8 hours): - 06/20/24 12:00 06/20/24 16:00 Temperature 97.7 F 98.1 F Pulse Rate 105 H 111 H Respiratory Rate 18 19 Blood Pressure 114/74 112/70 Pulse Oximetry 94 95 Oxygen Flow Rate 0 0 Fraction of Inspired Oxygen 28 SaO2/FiO2 Ratio 335 Oxygen Delivery Method Nasal Cannula Oxygen Flow Rate 0 Narrative Exam Narrative: GENERAL: This is a well-nourished, well-developed patient, male, appears uncomfortable. HEAD: Atraumatic. Normocephalic. No temporal or scalp tenderness. EYES: Pupils equal round and reactive. Extraocular motions intact. No scleral icterus. No injection or drainage. ENT: Mucous membranes pink and moist. NECK: Trachea midline. No JVD, bruits or lymphadenopathy. Supple, nontender, no meningeal signs. CARDIOVASCULAR: Regular rate and rhythm without murmurs, gallops, or rubs. RESPIRATORY: Clear to auscultation. GASTROINTESTINAL: Abdomen soft, non-tender, nondistended. EXTREMITIES: No clubbing, cyanosis, or edema. BACK: Nontender without deformity or crepitance. No flank tenderness. NEUROLOGIC: Alert, oriented, speech fluent, left teofilo paresis. DERMATOLOGIC: No rashes or skin lesions. Objective Labs 06/20/24 05:37 06/20/24 05:37 Labs: Laboratory Results - last 24 hr 06/20/24 05:37 WBC 13.8 H RBC 3.13 L Hgb 7.9 L Hct 23.8 L MCV 75.9 L MCH 25.4 L MCHC 33.4 RDW 19.9 H Plt Count 183 Neut % (Auto) Not Reportable Lymph % (Auto) Not Reportable [place] % (Auto) Not Reportable Eos % (Auto) Not Reportable Baso % (Auto) Not Reportable Lymph # (Auto) Not Reportable [place] # (Auto) Not Reportable Baso # (Auto) Not Reportable Total Counted 100 Seg Neutrophils % 69.0 Band Neutrophils % 1.0 L Lymphocytes % (Manual) 16.0 L Monocytes % (Manual) 11.0 Eosinophils % (Manual) 1.0 L Basophils % (Manual) 2.0 H Neutrophils # (Manual) 9660 H Nucleated RBCs 7 H RBC Morphology See below Hypochromasia 1+ H Anisocytosis 2+ H Microcytosis 1+ H Macrocytosis 1+ H Sickle Cells 2+ H Target Cells 2+ H Sodium 134 L Potassium 3.5 Chloride 100 Carbon Dioxide 28 BUN 6 L Creatinine 0.42 L Estimated GFR > 60 BUN/Creatinine Ratio 14.3 Glucose 105 H Calcium 8.5 Magnesium 2.0 Total Bilirubin 3.8 H AST 76 H ALT 46 Alkaline Phosphatase 168 H Total Protein 7.7 Albumin 3.9 Globulin 3.8 Albumin/Globulin Ratio 1.0 [facility] Social History Smoking Status: Never smoker Assessment & Plan Assessment & Plan narrative: 1. Sickle cell anemia with vaso-occlusive crisis, present on admission - continue supportive care with oxygen as needed, IV fluids - hydroxyura 200 mg daily. - monitor renal function, daily h/h - significant difficulties with pain control since admission. Continue PO and IV dilaudid, 75 mcg fentanyl patch. Consider increase tomorrow if still requiring significant IV dosing. - CBC today shows improving WBC count, continue empiric antibiotics for PNA as discussed below. - Hg stable between 8-9 today's labs. monitor daily with CBC, monitor Bili as well. Still with schistocytes on morphology review. 2. Sepsis with elevated bilirubin, thrombocytopenia, Acute respiratory failure, secondary to rhinovirus infection and possible superimposed bacterial pneumonia, present on admission - continue empiric antibiotics with ceftriaxone and doxycycline given his leukocytosis, rhinoviral infection for possible pneumonia along with elevated SOFA score for possible sepsis. - fever 11/ without remarkable infectious workup. Likely due to active hemolysis as bilirubin did go up slightly. - hypoxia resolved today, 06/19. 2. Elevated lactic acid, resolved. Note patient lactic acid 5.5. Normalized after IVF to 1.1. Continue IVF and antibiotics as above. 3. Hypokalemia, improved. 4. Dehydration. Continue IV fluids. 5. DVT prophylaxis: Lovenox 6. Code status: Full code Dispo: inpatient, discharge home with resolution of hypoxia and improved pain, unclear timing likely multiple days. Time-Based Coding :: [TOTAL MINUTES] spent with patient and on the chart (including review of chart, obtaining history, exam, reviewing outside data, placing orders, documenting exam and treatment plan, and counseling patient) on [DATE].
[2024-06-20 20:00] VITALS: BP 135/88; PULSE 114; RESP 16; TEMP 38.4; O2SAT 93
[2024-06-20] MEDS: cefTRIAXone 1,000 MG in SODIUM CHLORIDE 0.9% 100 ML 200 MG IV (20:52)
[2024-06-21] VITALS (7 sets, daily range): BP systolic 111–131; BP diastolic 69–86; PULSE 104–115; RESP 16–20; TEMP 36.9–38.6; O2SAT 93–97
[2024-06-21] MEDS: HYDROMORPHONE 2 MG INJ IV ×10 (01:09→23:49)
[2024-06-21] MEDS: HYDROMORPHONE 2 MG TABLET 4 MG PO ×4 (04:06→21:34)
[2024-06-21 07:50] LABS: BUN Creatinine Ratio 8.3 (6-22); Blood Urea Nitrogen 4 mg/dL (9-20); Calcium 8.5 mg/dL (8.4-10.2); Carbon Dioxide 28 mmol/L (22-32); Chloride 99 mmol/L (98-107); Estimated Glomerular Filt Rate > 60 mL/min (>60); Glucose 94 mg/dL (70-100); HEMOLYSIS < 15 (0-50); Potassium 3.8 mmol/L (3.4-5.1); Sodium 135 mmol/L (137-145)
--- NOTE | 2024-06-21 07:59 | PM.PN.1 ---
Subjective Subjective Interval history: S: He feels better, still having pain but improved. Some URI symptoms persist. Exam Vital Signs (past 8 hours): - 06/21/24 00:00 06/21/24 04:00 Temperature 99.9 F H 100.1 F H Pulse Rate 111 H 105 H Respiratory Rate 16 16 Blood Pressure 120/79 131/86 Pulse Oximetry 93 94 Oxygen Flow Rate 0 0 Fraction of Inspired Oxygen 28 SaO2/FiO2 Ratio 335 Oxygen Delivery Method Nasal Cannula Oxygen Flow Rate 0 Narrative Exam Narrative: NAD, alert and oriented. Fluent speech. Lungs are clear, normal rate and effort. Heart is regular, no murmur gallop or rub. Abdomen is soft, non distended. Extremities are free of edema. Left arm contracture. Objective Labs 06/20/24 05:37 06/21/24 07:10 Labs: Laboratory Results - last 24 hr 06/20/24 06/21/24 05:37 07:10 Total Counted 100 Seg Neutrophils % 69.0 Band Neutrophils % 1.0 L Lymphocytes % (Manual) 16.0 L Monocytes % (Manual) 11.0 Eosinophils % (Manual) 1.0 L Basophils % (Manual) 2.0 H Neutrophils # (Manual) 9660 H Nucleated RBCs 7 H RBC Morphology See below Hypochromasia 1+ H Anisocytosis 2+ H Microcytosis 1+ H Macrocytosis 1+ H Sickle Cells 2+ H Target Cells 2+ H Sodium 135 L Potassium 3.8 Chloride 99 Carbon Dioxide 28 BUN 4 L Creatinine 0.48 L Estimated GFR > 60 BUN/Creatinine Ratio 8.3 Glucose 94 Calcium 8.5 PFSH Social History Smoking Status: Never smoker Assessment & Plan Assessment & Plan narrative: 1. Sickle cell anemia with vaso-occlusive crisis, present on admission and improving. - continue supportive care with oxygen as needed, IV fluids - hydroxyura 200 mg daily. - continue pain medications. 2. Sepsis with elevated bilirubin, thrombocytopenia, Acute respiratory failure, secondary to rhinovirus infection and possible superimposed bacterial pneumonia, present on admission - continue empiric antibiotics with ceftriaxone and doxycycline given his leukocytosis, rhinoviral infection for possible pneumonia along with elevated SOFA score for possible sepsis. - fever 06/18 without remarkable infectious workup. Likely due to active hemolysis as bilirubin did go up slightly. Has URI. - hypoxia resolved 06/19. 2. Elevated lactic acid, resolved. 3. Hypokalemia. Improved. 4. Dehydration. Improved. Continue IV fluids. PLAN: - continue pain medications. - replace potassium as needed. Anticipate discharge 1-2 days. DVT prophylaxis: Lovenox Code status: Full code Time-Based Coding :: [TOTAL MINUTES] spent with patient and on the chart (including review of chart, obtaining history, exam, reviewing outside data, placing orders, documenting exam and treatment plan, and counseling patient) on [DATE].
[2024-06-21] MEDS: DOXYCYCLINE HYCLATE 100 MG TABLET PO ×2 (09:00→20:28)
[2024-06-21] MEDS: SODIUM CHLORIDE 0.9% 1,000 ML 100 ML IV ×2 (10:15→21:36)
--- NOTE | 2024-06-21 11:05 | DIET.CONS ---
Addendum entered by Shayna Brian 06/21/24 15:17: *Met with pt at bedside, pt reports decreased appetite is normal during crisis. Reports normal appetite outside of crisis and no weight changes. Took dinner and breakfast order. Original Note: Dietary Consultation Note Admission Date: 06/17/2024 10:33 Assessment: 23 y M admitted for sickle cell crisis. RD screened for LOS. Pt with recorded PO intakes <50%. Pt with ongoing pain. Per RN, ate half a wrap this morning that was brought from outside hospital. Ht: 177.8 cm Wt: 67.585 kg BMI: 21.4 UBW: 68.039 kg on 12/25/22 Last BM: () MNA: 12 Richie Score: 20 Diet: 06/16/24 Breakfast General (Regular) Diet Diet Modifications: Nutrition Percent Meal Consumed 25% 06/20/24 16:38 Percent Meal Consumed 75% 06/20/24 13:22 Percent Meal Consumed 0% 06/19/24 18:24 Labs: RBC 3.13 X10^6/uL (4.5-5.9) L 06/20/24 05:37 Hgb 7.9 g/dL (13.5-17.5) L 06/20/24 05:37 Hct 23.8 % (41-53) L 06/20/24 05:37 Creatinine 0.48 mg/dL (0.66-1.25) L 06/21/24 07:10 Lactate 1.1 mmol/L (0.7-2.1) 06/16/24 00:59 Nutrition Diagnosis: Inadequate oral intake r/t ongoing pain aeb average recorded PO intakes <50% during admission Interventions: 1. Pt trying protein smoothie today at lunch to support intakes Monitoring/Evaluations: f/u on po intakes Electronically Signed by: Shayna Brian 06/21/24 11:05 Clinical Dietitian [address] [id number]
[2024-06-21] MEDS: ACETAMINOPHEN 325 MG TABLET 650 MG PO (20:28)
[2024-06-21] MEDS: cefTRIAXone 1,000 MG in SODIUM CHLORIDE 0.9% 100 ML 200 MG IV (20:29)
[2024-06-22] MEDS: HYDROMORPHONE 2 MG TABLET 4 MG PO ×5 (01:16→14:29)
[2024-06-22 02:00] VITALS: BP 111/71; PULSE 109; RESP 18; TEMP 36.8; O2SAT 97
[2024-06-22] MEDS: HYDROMORPHONE 2 MG INJ IV ×5 (04:23→13:48)
[2024-06-22 06:00] VITALS: BP 100/76; PULSE 111; RESP 20; TEMP 36.8; O2SAT 97
[2024-06-22 07:20] LABS: Hematocrit 24.4 % (41-53); Hemoglobin 8.1 g/dL (13.5-17.5); Mean Corpuscular HGB Conc 33.2 % (30-36); Mean Corpuscular Hemoglobin 25.3 PG (26-34); Mean Corpuscular Volume 76.1 fL (80-100); Platelet Count 247 X10^3/uL (150-400); Red Cell Distribution Width 18.5 % (11.6-14.8)
[2024-06-22 07:28] LABS: BUN Creatinine Ratio 10.9 (6-22); Blood Urea Nitrogen 5 mg/dL (9-20); Carbon Dioxide 28 mmol/L (22-32); Chloride 100 mmol/L (98-107); Estimated Glomerular Filt Rate > 60 mL/min (>60); Glucose 92 mg/dL (70-100); HEMOLYSIS < 15 (0-50); Potassium 3.7 mmol/L (3.4-5.1); Sodium 136 mmol/L (137-145)
[2024-06-22] MEDS: SODIUM CHLORIDE 0.9% 1,000 ML 100 ML IV (07:43)
[2024-06-22] MEDS: DOXYCYCLINE HYCLATE 100 MG TABLET PO (09:13)
[2024-06-22 10:00] VITALS: BP 123/70; PULSE 95; RESP 16; TEMP 37.1; O2SAT 98
[2024-06-22] MEDS: HYDROMORPHONE 2 MG TABLET PO (11:36)
--- NOTE | 2024-06-22 13:40 | PM.DS.1 ---
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 The patient states that his last sickle crisis was 09/2023. The patient started to have acute onset of these symptoms about a few hours prior to admission. The patient however denies any fever, chills, nausea, vomiting, diarrhea, headache, neck/back/hip/leg pain. In our ER, the patient was hemodynamically stable. WBC 18, recticulocyte % 6.3, Hb 9.0, potassium 3.3 and lactic acid 5.8. Total bili 2.4 and positive for entero/rhino virus. CXR however was clear. Our ER physician did call Dr. Forrest, Gaming Commissioner from [facility], who recommended that we can keep the patient here with empiric antibiotics, follow up blood cultures, IVF and pain control. Also Dr. Forrest does not think we need CTA at this time as this is more consistent with vaso-occlusive crisis than true acute chest syndrome. IV Ceftriaxone and doxycycline ordered. 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 Discharge Providers Provider Date of admission: 06/17/24 10:33 Discharge Date: 06/22/24 Primary care physician: Evens Valdez MD Discharge provider: Arslan Belcher MD Summary Hospital Course Discharge Diagnosis: 1. Sickle cell anemia with vaso-occlusive crisis, present on admission and improving. 2. Sepsis with elevated bilirubin, thrombocytopenia, Acute respiratory failure, secondary to rhinovirus infection and possible superimposed bacterial pneumonia, present on admission - continue empiric antibiotics with ceftriaxone and doxycycline given his leukocytosis, rhinoviral infection for possible pneumonia along with elevated SOFA score for possible sepsis. - fever 06/18 without remarkable infectious workup. Likely due to active hemolysis as bilirubin did go up slightly. Has URI. - hypoxia resolved 06/19. 2. Elevated lactic acid, resolved. 3. Hypokalemia. Improved. 4. Dehydration. Improved. Hospital Course: He was admitted with sickle cell pain crisis. He initially was febrile and hypoxemic. He was treated empirically with antibiotics for possible pneumonia. He was also initially hypokalemic, this was replaced. He improved and was switched to oral antibiotics and weaned off from oxygen. His pain symptoms also improved. He was positive for rhino virus on his respiratory PCR. On the day of discharge he was back to baseline and felt he was ready to leave the hospital. Does follow with Hematology and [facility], they were contacted at the time of admission. In addition, he has primary care in [place]. He was asked to follow up within the next week. Status at Discharge Cognitive/behavioral status at discharge: oriented Functional status at discharge: independent ambulation Overall status at discharge: patient is back to baseline Time Spent with Patient Time spent: Greater than 30 minutes Exam Vital Signs (past 8 hours): - 06/22/24 06:00 06/22/24 10:00 Temperature 98.2 F 98.7 F Pulse Rate 111 H 95 H Respiratory Rate 20 16 Blood Pressure 100/76 123/70 Pulse Oximetry 97 98 Oxygen Flow Rate 0 Fraction of Inspired Oxygen 28 SaO2/FiO2 Ratio 335 Oxygen Delivery Method Nasal Cannula Oxygen Flow Rate 0 Narrative Exam Narrative: NAD, alert and oriented. Fluent speech. Lungs are clear, normal rate and effort. Heart is regular, no murmur gallop or rub. Abdomen is soft, non distended. Extremities are free of edema. Objective ECG Impression: Sinus rhythm with 1st degree AV block Imaging Chest x-ray: Radiologist's impression: No acute findings. Labs 06/22/24 06:20 06/22/24 06:20 Labs: Laboratory Results - last 24 hr 06/22/24 06:20 WBC 14.0 H RBC 3.20 L Hgb 8.1 L Hct 24.4 L MCV 76.1 L MCH 25.3 L MCHC 33.2 RDW 18.5 H Plt Count 247 Sodium 136 L Potassium 3.7 Chloride 100 Carbon Dioxide 28 BUN 5 L Creatinine 0.46 L Estimated GFR > 60 BUN/Creatinine Ratio 10.9 Glucose 92 Calcium 9.0 [facility] Social History Smoking Status: Never smoker Discharge Assessment & Plan Assessment and Plan Assessment: 1. Sickle cell anemia with vaso-occlusive crisis, present on admission and improving. 2. Sepsis with elevated bilirubin, thrombocytopenia, Acute respiratory failure, secondary to rhinovirus infection and possible superimposed bacterial pneumonia, present on admission - continue empiric antibiotics with ceftriaxone and doxycycline given his leukocytosis, rhinoviral infection for possible pneumonia along with elevated SOFA score for possible sepsis. - fever 11/5 without remarkable infectious workup. Likely due to active hemolysis as bilirubin did go up slightly. Has URI. - hypoxia resolved 06/19. 2. Elevated lactic acid, resolved. 3. Hypokalemia. Improved. 4. Dehydration. Improved. Plan of Treatment: Stable for discharge home with close follow up. He was given a prescription for limited amount of oxycodone and Zofran. Discharge Plan Discharge Plan Patient Disposition: Home Provider Discharge Comment: Feels better, stable for discharge home. Discharge orders & Medications Prescriptions: New doxycycline hyclate 100 mg Tablet 100 mg PO BID Qty: 6 0RF oxycodone 5 mg capsule 5 mg PO Q8H PRN (Reason: pain) Qty: 10 0RF ondansetron 4 mg tablet,disintegrating 4 mg PO Q8H PRN (Reason: nausea and vomiting) 4 Days Qty: 10 0RF Continued hydrocodone-acetaminophen 5-325 mg tablet 1 tab PO Q6H PRN (Reason: pain) Qty: 20 0RF hydroxyurea (sickle cell) 200 mg capsule 200 mg PO DAILY Qty: 30 0RF Discontinued hydrocodone-acetaminophen 5-325 mg tablet 1 tab PO BEDTIME PRN (Reason: pain) Qty: 30 0RF Follow up/Referrals: Evens Valdez MD [Primary Care Provider] - Discharge Health Status Multidrug resistant organism: No MDRO Diet/Activity/Treatments Diet: Regular Skin/Wound/Dressing Care Report to your healthcare provider any signs of infection, such as:: chills, fever and increased pain Visit Report/Discharge Packet Instructions: DI for Sickle Cell Anemia, Pain Crisis -- Adult Stand Alone Forms: Patient Portal/API Discharge Data Primary Care Provider: Evens Valdez
[2024-06-22 14:11] VITALS: BP 111/81; PULSE 100; RESP 17; TEMP 37.3; O2SAT 98
--- NOTE | 2024-06-22 14:34 | PC.NURSE ---
Pt D/C'd home. Pt refused wheelchair, pt walked out with staff. VSS. Afebrile. Pt verbalized understanding of D/C instructions, how to take all meds and possible side effects, when to follow up with PCP and when to return to the ED if needed. Pt's prescriptions sent to [facility]. Pt's belongings including: clothes, shoes, sweatshirt, cellphone, and cellphone arts and humanities council director with pt at the time of D/C.
--- NOTE | 2024-06-22 14:39 | CM.DPNOTE ---
DCP Note AUTOMOTIVE SERVICE TECHNICIAN reviewed EMR. Per hospitalist in morning rounds, anticipate dc today. AUTOMOTIVE SERVICE TECHNICIAN checked in with pt in room. Pt confirms agreement with PCP appt plan. denies any CM needs at this time. AUTOMOTIVE SERVICE TECHNICIAN messaged TCM team to notify them of dc. P: pt to dc home today with OP F/u scheduled for Tuesday 06/26 at 1130. CM team will continue to follow as needed VISHNU Thacker
--- NOTE | 2024-06-23 23:54 | PC.NURSE ---
Pt received 4 mg of morphine IVP on on 06/16/2024 at 0120.
== END 2024-06-22 14:37 | disposition home or self-care (01) | DRG 871 ==
LOC: ED 06-16 00:33 → AC 06-16 00:44
PROVIDERS: Hospitalist; Internal Medicine; Admitting Provider Internal Medicine; Emergency Provider Emergency Medicine; PCP Family Medicine; Referring Provider Emergency Medicine; Visit Provider Internal Medicine
DX: A41.9 Sepsis, unspecified organism (principal); D57.00 Hb-SS disease with crisis, unspecified; J15.9 Unspecified bacterial pneumonia; J96.01 Acute respiratory failure with hypoxia; I69.354 Hemiplegia and hemiparesis following cerebral infarction affecting left non-dominant side; B34.8 Other viral infections of unspecified site; E87.6 Hypokalemia; E86.0 Dehydration; R74.02 Elevation of levels of lactic acid dehydrogenase [LDH]; R65.20 Severe sepsis without septic shock; E80.6 Other disorders of bilirubin metabolism; D69.59 Other secondary thrombocytopenia
CPT/HCPCS: 36415; 71045; 80048; 80053; 81001; 82550; 83605; 83690; 83735; 84484; 85007; 85025; 85027; 85045; 87040; 87633; 93005; 94762; 96361; 96365; 96375; 96376; 99284; 99291; G0378; J0696; J1171; J2270; J2405

== ENCOUNTER 2024-06-24 18:42 | Emergency (ER) | payer OTHER, MEDICAID, SELFPAY ==
[2024-06-16 01:09] VITALS: BMI 21.4
[2024-06-24] VITALS (7 sets, daily range): BP systolic 108–110; BP diastolic 64–66; PULSE 82–124; RESP 18; TEMP 36.8; O2SAT 98–100; BMI 19.3
[2024-06-24 19:50] LABS: Alanine Aminotransferase 100 IU/L (<50); Albumin 4.4 g/dL (3.5-5.0); Albumin Globulin Ratio 0.9 (1.0-2.8); Alkaline Phosphatase 213 U/L (38-126); Aspartate Aminotransferase 98 IU/L (17-59); BUN Creatinine Ratio 14.3 (6-22); Bilirubin Total 1.3 mg/dL (0.2-1.3); Blood Urea Nitrogen 8 mg/dL (9-20); Calcium 9.2 mg/dL (8.4-10.2); Carbon Dioxide 23 mmol/L (22-32); Chloride 106 mmol/L (98-107); Estimated Glomerular Filt Rate > 60 mL/min (>60); Globulin 4.8 g/dL (1.7-4.1); Glucose 108 mg/dL (70-100); HEMOLYSIS < 15 (0-50); Potassium 3.6 mmol/L (3.4-5.1); Sodium 140 mmol/L (137-145); Total Protein 9.2 g/dL (6.3-8.2)
[2024-06-24 19:54] LABS: Hematocrit 26.4 % (41-53); Hemoglobin 8.4 g/dL (13.5-17.5); Mean Corpuscular Hemoglobin 24.7 PG (26-34); Platelet Count 517 X10^3/uL (150-400); Red Blood Cell Count 3.43 X10^6/uL (4.5-5.9); Red Cell Distribution Width 18.3 % (11.6-14.8); White Blood Cell Count 14.1 X10^3/uL (4.5-11.0)
[2024-06-24 19:59] LABS: Add Manual Diff / Slide Review YES
[2024-06-24 20:21] LABS: Anisocytosis 2+; Band Neutrophils Percent 5.4 % (3-7); Basophils Percent Manual 0.5 % (0-1); Eosinophils Percent Manual 1.5 % (2-4); Lymphocytes Percent Manual 27.8 % (25-45); Microcytosis 2+; Monocytes Percent Manual 4.9 % (2-11); Neutrophils Absolute Manual 9221 /uL (3000-5900); Nucleated Red Blood Cells 11 #/Diff; Ovalocytes 2+; Total Cells Counted 205
[2024-06-24 20:22] LABS: Hypochromasia 2+; Polychromasia 2+; Target Cells 2+
--- NOTE | 2024-06-24 20:23 | ED.RECABL ---
HPI - Recheck/Abnormal Lab/Rx General Chief Complaint: Recheck/Abnormal Lab/Rx Stated Complaint: cycle cell, px in legs not getting better Time Seen by Provider: 06/24/24 20:21 History of Present Illness HPI narrative: Patient is a 23-year-old male with a past medical history of sickle cell, comes into the ED from home for evaluation of sickle cell pain. He does have left-sided hemiparesis since his last crisis in September 2023. 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 No trauma no falls states that he did set up appointment with his new ticket sales supervisor and has an appointment on 06/26/2024. review of records show that patient was seen here on 06/15/2024 for the same. At that time patient was admitted for his symptoms as well as possible pneumonia. Related Data Previous Rx's Medication Instructions Recorded hydrocodone 5 mg-acetaminophen 325 1 tab PO Q6H PRN pain #20 tabs 12/06/22 mg tablet hydroxyurea (sickle cell) 200 mg 200 mg PO DAILY #30 caps 07/01/23 capsule doxycycline hyclate 100 mg tablet 100 mg PO BID #6 tabs 06/22/24 ondansetron 4 mg disintegrating 4 mg PO Q8H PRN nausea and 06/22/24 tablet vomiting 4 days #10 tabs oxycodone 5 mg capsule 5 mg PO Q6H PRN pain #15 caps 06/22/24 Allergies Allergy/AdvReac Type Severity Reaction Status Date / Time No Known Drug Allergies Allergy Verified 09/17/23 15:17 Review of Systems Review of Systems Narrative: General: Denies fever, chills, weight loss HEENT: Denies headache, eye drainage, eye irritation, head trauma, sore throat, voice change Cardiovascular: Denies any chest pain, palpitations, shortness of breath, tachycardia Respiratory: Denies any shortness of breath, cough, wheeze, stridor GI/: Denies any abdominal pain, nausea, vomiting, diarrhea, bright red blood per rectum, melanotic stools, urinary frequency, urinary retention, dysuria, hematuria MSK: Positive left hip pain Skin: Denies any rashes, lesions, discoloration Neuro: Denies any headache, lightheadedness, dizziness, fainting, weakness Psych: Denies SI/HI Patient History Social History Smoking Status: Never smoker Smoking Status: Never smoker alcohol intake frequency: holidays/special occasions only Substance Use Type: marijuana Exam Narrative Exam Narrative: General: Cooperative, comfortable, well-developed, not in acute distress HEENT: Normocephalic, atraumatic, PERRLA, normal sclera, eyelids normal, Neck: Active full range of motion, atraumatic Chest: Normal to inspection, negative crepitus, no overlying erythema ecchymosis Respiratory: Normal respiratory effort, not in acute respiratory distress, clear to auscultation bilaterally negative cough, wheeze, tachypnea, rhonchi, rales Cardiology: Regular rate rhythm negative gallop, murmur, rubs GI/: Normal to inspection, soft, nonrigid, no tenderness to palpation, exam deferred MSK: patient with baseline left upper extremity deficits from history of vaso-occlusive crisis in the past, bilateral lower extremities neurovascularly intact able to stand bear weight ambulate unassisted here in the emergency department Skin: No rashes lesions noted Neuro: Alert awake oriented x3, m, cranial nerves intact, able to answer all questions appropriately follows commands appropriately Psych: Cooperative, negative suicidal or homicidal ideations Initial Vital Signs Initial Vital Signs: Vital Signs Temperature 98.3 F 06/24/24 18:58 Pulse Rate 124 H 06/24/24 18:58 Respiratory Rate 18 06/24/24 18:58 Blood Pressure 110/66 06/24/24 18:58 Pulse Oximetry 98 06/24/24 18:58 Oxygen Delivery Method Room Air 06/24/24 18:58 Course Orders Ordered: ED Orders 06/24/24 19:25 Complete Blood Count AUTO DIFF Stat Comprehensive Metabolic Panel Stat RETIC [Reticulocyte Count, Percent] Stat 06/24/24 20:29 XR hip LT 1V Stat Discontinued Medications Hydromorphone HCl (Hydromorphone 1 Mg Inj) 1 mg IV NOW ONE Stop: 06/24/24 20:27 Last Admin: 06/24/24 20:34 Dose: 1 mg Documented By: SARAH Hydromorphone HCl (Hydromorphone 1 Mg Inj) 1 mg IV NOW ONE Stop: 06/24/24 21:54 Last Admin: 06/24/24 21:57 Dose: 1 mg Documented By: SARAH Hydromorphone HCl (Hydromorphone 1 Mg Inj) 1 mg IV NOW ONE Stop: 06/24/24 23:02 Last Admin: 06/24/24 23:13 Dose: 1 mg Documented By: LOAN Vital Signs Vital signs: Vital Signs - 8 hr 06/24/24 18:58 06/24/24 21:56 06/24/24 21:57 Temperature 98.3 F Pulse Rate 124 H 101 H Respiratory Rate 18 Blood Pressure 110/66 Pulse Oximetry 98 100 99 Oxygen Delivery Method Room Air 06/24/24 21:57 06/24/24 22:00 06/24/24 22:30 Temperature Pulse Rate 102 H 82 Respiratory Rate Blood Pressure 108/64 Pulse Oximetry 98 100 Oxygen Delivery Method Room Air 06/24/24 23:00 06/24/24 23:30 06/25/24 00:28 Temperature Pulse Rate 95 H 88 Respiratory Rate 18 Blood Pressure 110/75 Pulse Oximetry 98 99 Oxygen Delivery Method 06/25/24 00:28 Temperature Pulse Rate 93 H Respiratory Rate 18 Blood Pressure Pulse Oximetry 98 Oxygen Delivery Method MDM - Recheck/Abnormal Lab/Rx Differential Diagnosis Differential diagnosis: Likely other ( Avascular necrosis, sickle cell crisis,) Lab Data 06/24/24 19:25 06/24/24 19:25 Labs: Lab Results 06/24/24 Range/Units 19:25 WBC 14.1 H (4.5-11.0) X10^3/uL RBC 3.43 L (4.5-5.9) X10^6/uL Hgb 8.4 L (13.5-17.5) g/dL Hct 26.4 L (41-53) % MCV 77.0 L (80-100) fL MCH 24.7 L (26-34) PG MCHC 32.0 (30-36) % RDW 18.3 H (11.6-14.8) % Plt Count 517 H (150-400) X10^3/uL Neut % (Auto) Not Reportable Lymph % (Auto) Not Reportable [place] % (Auto) Not Reportable Eos % (Auto) Not Reportable Baso % (Auto) Not Reportable Lymph # (Auto) Not Reportable [place] # (Auto) Not Reportable Baso # (Auto) Not Reportable Total Counted 205 Seg Neutrophils % 60.0 (38-70) % Band Neutrophils % 5.4 (3-7) % Lymphocytes % (Manual) 27.8 (25-45) % Monocytes % (Manual) 4.9 (2-11) % Eosinophils % (Manual) 1.5 L (2-4) % Basophils % (Manual) 0.5 (0-1) % Neutrophils # (Manual) 9221 H (9781-3905) /uL Nucleated RBCs 11 H ( - 0) #/Diff RBC Morphology See below Polychromasia 2+ H Hypochromasia 2+ H Anisocytosis 2+ H Microcytosis 2+ H Target Cells 2+ H Ovalocytes 2+ H Percent Retic 8.3 H (0.9-2.6) % Sodium 140 (137-145) mmol/L Potassium 3.6 (3.4-5.1) mmol/L Chloride 106 (98-107) mmol/L Carbon Dioxide 23 (22-32) mmol/L BUN 8 L (9-20) mg/dL Creatinine 0.56 L (0.66-1.25) mg/dL Estimated GFR > 60 (>60) mL/min BUN/Creatinine Ratio 14.3 (6-22) Glucose 108 H (70-100) mg/dL Calcium 9.2 (8.4-10.2) mg/dL Total Bilirubin 1.3 (0.2-1.3) mg/dL AST 98 H (17-59) IU/L ALT 100 H (<50) IU/L Alkaline Phosphatase 213 H (38-126) U/L Total Protein 9.2 H (6.3-8.2) g/dL Albumin 4.4 (3.5-5.0) g/dL Globulin 4.8 H (1.7-4.1) g/dL Albumin/Globulin Ratio 0.9 L (1.0-2.8) Imaging Data Extremity x-ray #1: Radiologist's Impression: [address] [address] XRay Report Signed Patient: Lucretia Keller MR#: [id number] : 2000 Acct:[id number] Age/Sex: 23 / M Date of Service: 06/24/24 Loc: ED Accession Number: [id number] Procedure: XR hip LT 1V Ordering Provider: Evens Stewart D.O. PROCEDURE: XR HIP LT 1V INDICATIONS: left hip pain, history of sickle cell TECHNIQUE: Single AP view of the hip acquired. COMPARISON: [facility], CR, XR HIP W PEL IF DONE LT 2V, 04/27/2021, 14:11. [facility], CR, XR HIP W PEL IF DONE RT 2V, 09/17/2023, 17:14. FINDINGS: Bones: No acute osseous fracture or dislocation. Mildly shallow acetabulum with coxa valga, which may be congenital/developmental with superimposed degenerative changes at the left hip. Mixed lucent and sclerotic appearance of the femoral head may be related to degenerative changes or chronic osteonecrosis. The appearance has not significantly changed when compared to radiographs dating back to 04/27/2021. Soft tissues: No suspicious soft tissue calcifications or masses. IMPRESSION: Mild chronic deformity of the left hip with superimposed degenerative changes. Mixed lucent/sclerotic appearance of the femoral head may be secondary to degenerative changes or chronic osteonecrosis. Findings do not appear significantly changed dating back to the exam from 04/27/2021. MDM Narrative Medical decision making narrative: Patient is a 23-year-old male with a history of sickle cell currently not being followed by ticket sales supervisor or development technologist, however is in the process of setting up a new provider states his appointment is on the of this month. Comes in complaining of typical sickle cell pain, states it is to his left hip/thigh. Denies any numbness weakness tingling to lower extremities. He does have baseline left upper extremity hemiparesis from previous sickle cell crisis in September of 2023. Here patient with x-ray not concerning for acute avascular necrosis of the left hip/ femur. Patient did receive 3 doses of Dilaudid with significant improvement of his symptoms, he was given strict return precautions he verbalized understanding of this and agrees to being discharged home with outpatient follow up Discharge Plan Departure Patient Disposition: Home Clinical Impression: Sickle cell disease with crisis Activity Restrictions/Additional Instructions: Please read the discharge instructions sheet carefully and bring all papers to all doctor follow-up visits, as it may contain information that your doctor may want to see. Disease processes change and evolve, if your symptoms worsen or if you develop any new symptoms that are concerning to you please return for evaluation. Your evaluation today does not show any evidence of any life-threatening/serious illnesses requiring admission to the hospital or surgery. Please follow-up with your doctor for re-evaluation in approximately 1 day. Seek immediate medical attention for any worrisome symptoms. Prescriptions: No Action hydrocodone-acetaminophen 5-325 mg tablet 1 tab PO Q6H PRN (Reason: pain) Qty: 20 0RF hydroxyurea (sickle cell) 200 mg capsule 200 mg PO DAILY Qty: 30 0RF doxycycline hyclate 100 mg Tablet 100 mg PO BID Qty: 6 0RF ondansetron 4 mg tablet,disintegrating 4 mg PO Q8H PRN (Reason: nausea and vomiting) 4 Days Qty: 10 0RF oxycodone 5 mg capsule 5 mg PO Q6H PRN (Reason: pain) Qty: 15 0RF Referrals: Evens Valdez MD [Primary Care Provider] - Stand Alone Forms: Patient Portal/API/Survey
[2024-06-24 20:29] LABS: Reticulocyte Count, Percent 8.3 % (0.9-2.6)
--- NOTE | 2024-06-24 20:29 | DI.RAD.S_ITS ---
PROCEDURE: XR HIP LT 1V INDICATIONS: left hip pain, history of sickle cell TECHNIQUE: Single AP view of the hip acquired. COMPARISON: [facility], CR, XR HIP W PEL IF DONE LT 2V, 04/27/2021, 14:11. [facility], CR, XR HIP W PEL IF DONE RT 2V, 09/17/2023, 17:14. FINDINGS: Bones: No acute osseous fracture or dislocation. Mildly shallow acetabulum with coxa valga, which may be congenital/developmental with superimposed degenerative changes at the left hip. Mixed lucent and sclerotic appearance of the femoral head may be related to degenerative changes or chronic osteonecrosis. The appearance has not significantly changed when compared to radiographs dating back to 04/27/2021. Soft tissues: No suspicious soft tissue calcifications or masses. IMPRESSION: Mild chronic deformity of the left hip with superimposed degenerative changes. Mixed lucent/sclerotic appearance of the femoral head may be secondary to degenerative changes or chronic osteonecrosis. Findings do not appear significantly changed dating back to the exam from 04/27/2021. Approved by: Mauricio Davila M.D. on 06/24/2024 at 21:03
[2024-06-24] MEDS: HYDROMORPHONE 1 MG INJ IV ×3 (20:34→23:13)
[2024-06-25 00:28] VITALS: BP 110/75; PULSE 93; RESP 18; O2SAT 98
== END 2024-06-25 00:32 | disposition home or self-care (01) ==
PROVIDERS: Emergency Provider Student in an Organized Health Care Education/Training Program; PCP Family Medicine
DX: D57.00 Hb-SS disease with crisis, unspecified (principal); M79.605 Pain in left leg; R79.89 Other specified abnormal findings of blood chemistry
CPT/HCPCS: 36415; 73501; 80053; 85007; 85025; 85045; 96374; 96376; 99284; J1171

== ENCOUNTER 2024-07-27 06:09 | Inpatient (IN) | payer OTHER, SELFPAY ==
[2024-06-16 01:09] VITALS: BMI 21.4
[2024-07-27] VITALS (15 sets, daily range): BP systolic 104–133; BP diastolic 57–67; PULSE 66–102; RESP 16–29; TEMP 36.8–37.2; O2SAT 94–100
--- NOTE | 2024-07-27 07:08 | PC.NURSE ---
Pt has history of Sickle cell, and he is not sure if this is another crisis.
--- NOTE | 2024-07-27 07:09 | DI.RAD.S_ITS ---
PROCEDURE: XR CHEST 1V INDICATIONS: chest pain TECHNIQUE: One view of the chest was acquired. COMPARISON: [facility], CR, XR CHEST 1V, 06/18/2024, 18:54. FINDINGS: Surgical changes and devices: None. Lungs and pleura: Lungs are clear. No pleural effusions or pneumothorax. Mediastinum: Mediastinal contours appear normal. Heart size is normal. Bones and chest wall: No suspicious bony lesions. Overlying soft tissues appear unremarkable. IMPRESSION: No acute cardiopulmonary abnormalities or focal consolidation. Dictated by: Patrice Wang M.D. on 07/27/2024 at 7:38 Approved by: Patrice Wang M.D. on 07/27/2024 at 7:39
--- NOTE | 2024-07-27 07:09 | EKG_ITS ---
[address] [address] Test Date: 2024-07-27 Pat Name: Lucretia Keller Department: Room: Gender: Male Supervisor Correspondence Section: DAVID : 2000 Requested By: Order Number: [id number] Reading MD: Measurements Intervals [place] Rate: 89 P: 43 [place]: 208 QRS: 14 QRSD: 90 T: 35 QT: 392 QTc: 476 Interpretive Statements Normal sinus rhythm Electronically Signed On 07-28-2024 7:36:18 PST by Rick Albert
[2024-07-27 08:26] LABS: Add Manual Diff / Slide Review YES; Hematocrit 31.7 % (41-53); Hemoglobin 10.4 g/dL (13.5-17.5); Mean Corpuscular HGB Conc 32.8 % (30-36); Mean Corpuscular Hemoglobin 24.2 PG (26-34); Mean Corpuscular Volume 73.9 fL (80-100); Platelet Count 268 X10^3/uL (150-400); Red Blood Cell Count 4.28 X10^6/uL (4.5-5.9); Red Cell Distribution Width 18.5 % (11.6-14.8); White Blood Cell Count 27.3 X10^3/uL (4.5-11.0)
[2024-07-27 08:27] LABS: INR 1.4 (0.9-1.3); Prothrombin Time 15.5 SECONDS (9.4-12.5)
[2024-07-27 08:30] LABS: PTT Partial Thromboplastin Tim 27 SECONDS (25.1-36.5)
[2024-07-27 08:31] LABS: Alanine Aminotransferase 21 IU/L (<50); Albumin 4.9 g/dL (3.5-5.0); Albumin Globulin Ratio 1.3 (1.0-2.8); Alkaline Phosphatase 111 U/L (38-126); Aspartate Aminotransferase 41 IU/L (17-59); BUN Creatinine Ratio 10.8 (6-22); Bilirubin Total 4.7 mg/dL (0.2-1.3); Blood Urea Nitrogen 8 mg/dL (9-20); Calcium 8.8 mg/dL (8.4-10.2); Carbon Dioxide 22 mmol/L (22-32); Chloride 101 mmol/L (98-107); Creatine Kinase 130 U/L (55-170); Estimated Glomerular Filt Rate > 60 mL/min (>60); Globulin 3.8 g/dL (1.7-4.1); Glucose 92 mg/dL (70-100); HEMOLYSIS < 15 (0-50); Lipase 76 U/L (23-300); Magnesium 1.8 mg/dL (1.6-2.3); Potassium 3.4 mmol/L (3.4-5.1); Sodium 135 mmol/L (137-145); Total Protein 8.7 g/dL (6.3-8.2)
[2024-07-27 08:40] LABS: Anisocytosis 1+; Burr Cells 3+; Neutrophils Absolute Manual 22932 /uL (3000-5900); Poikilocytosis 1+; Total Cells Counted 100
[2024-07-27 08:43] LABS: NT-proBNP (BNP-Adult 18+) < 20 pg/mL (<125); Troponin I < 0.012 ng/mL (0.01-0.034)
--- NOTE | 2024-07-27 08:44 | ED_ITS ---
HPI - Chest Pain General Chief Complaint: Chest Pain Stated Complaint: chest pain, headache t-2 Time Seen by Provider: 07/27/24 08:07 Source: patient, RN notes reviewed and old records reviewed Mode of arrival: Ambulatory Limitations: no limitations History of Present Illness HPI narrative: 23-year-old male past history of sickle cell, prior stroke with left hemiparesis at age 1, avascular necrosis and prior right hip replacement, prior splenectomy and cholecystectomy. Patient comes in with complaint of chest pain, headache and legs and arm pain for the past 2 days. States has not been resolving so he decided to come in. Denies any fevers, denies any shortness of breath no nausea or vomiting. No issues with bowel movements, no urinary symptoms no cold cough or congestion symptoms. Patient is currently taking penicillin, folic acid and hydroxyurea. He has had prior hip replacement, shoulder surgery, cholecystectomy and splenectomy. No known drug allergies. No tobacco, no regular alcohol, states he uses marijuana but no other recreational drugs. Patient states not currently established with a primary care provider. Patient was last admitted on 06/15/2024 at our facility. Related Data Home Medications Medication Instructions Recorded Confirmed penicillin V potassium 250 mg 250 mg PO BID 07/27/24 07/27/24 tablet Previous Rx's Medication Instructions Recorded hydrocodone 5 mg-acetaminophen 325 1 tab PO Q6H PRN pain #20 tabs 12/06/22 mg tablet hydroxyurea (sickle cell) 200 mg 200 mg PO DAILY #30 caps 07/01/23 capsule doxycycline hyclate 100 mg tablet 100 mg PO BID #6 tabs 06/22/24 oxycodone 5 mg capsule 5 mg PO Q6H PRN pain #15 caps 06/22/24 Allergies Allergy/AdvReac Type Severity Reaction Status Date / Time No Known Drug Allergies Allergy Verified 09/17/23 15:17 Review of Systems Review of Systems ROS Unobtainable: All systems reviewed & are unremarkable except as noted in HPI and below Patient History Medical History (Updated 07/27/24 @ 11:52 by Beverley Kumar DO) Avascular necrosis of bone Contracture, left elbow Contracture, left hand CVA (cerebral vascular accident) Sickle cell anemia Surgical History (Updated 07/27/24 @ 11:30 by Pili Albert MD) History of shoulder surgery 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 Family History (Updated 07/27/24 @ 11:31 by Pili Albert MD) Father Cancer Sickle cell trait Mother Sickle cell trait Social History household members: significant other Smoking Status: Never smoker Smoking Status: Never smoker alcohol intake frequency: holidays/special occasions only Exam Narrative Exam Narrative: GENERAL: Alert and oriented x three, male in mild distress HEENT: Head normocephalic, atraumatic, EOMI, pupils reactive, face symmetric, moist mucous membranes NECK: Supple, full range of motion CARDIOVASCULAR: Regular rate and rhythm without murmurs, rubs or gallops. RESPIRATORY: Breath sounds equal bilaterally, no wheezes rales or rhonchi. ABDOMEN: Soft, nontender. Normoactive bowel sounds all 4 quadrants. No guarding or rebound, rigidity, no mass : No CVA tenderness EXTREMITIES: Patient has right-sided deficit, no swelling, no clubbing or edema. Neurovascularly intact NEUROLOGICAL: Cranial nerves II through XII grossly intact. Normal speech. SKIN: Warm, dry, no petechiae, no rashes or lesions. Initial Vital Signs Initial Vital Signs: Vital Signs Temperature 98.9 F 07/27/24 06:31 Pulse Rate 94 H 07/27/24 06:31 Respiratory Rate 19 07/27/24 06:31 Blood Pressure 118/64 07/27/24 06:31 Pulse Oximetry 96 07/27/24 06:31 Oxygen Delivery Method Room Air 07/27/24 06:31 Course Orders Ordered: ED Orders 07/27/24 06:45 Complete Blood Count AUTO DIFF Stat Comprehensive Metabolic Panel Stat Lipase Stat Magnesium Stat NT-proBNP (BNP-Adult 18+) Stat PTT Partial Thromboplastin [place] Stat Procalcitonin Stat Prothrombin Time INR Stat Reticulocyte Count, Percent Stat Troponin & CK Cardiac Panel Stat 07/27/24 07:09 XR chest 1V Stat EKG-12 Lead Stat 07/27/24 09:10 Lactate (Lactic Acid) Stat 07/27/24 09:20 Blood Culture Stat Hydrocodone Bitart/Acetaminophen (Hydrocodone/Acet 5/325 Tablet) 1 tab PO Q6H PRN PRN Reason: pain Sodium Chloride (Normal Saline 0.45%) 1,000 mls @ 100 mls/hr IV CONT JONATHAN Last Admin: 07/27/24 11:24 Dose: 100 mls/hr Documented By: DERIAN Ceftriaxone Sodium 1,000 mg/ (Sodium Chloride) 100 mls @ 200 mls/hr IV Q24H JONATHAN Doxycycline Hyclate 100 mg/ (Sodium Chloride) 100 mls @ 100 mls/hr IV Q12H JONATHAN Morphine Sulfate (Morphine 4 Mg/Ml Inj) 3 mg IV Q2H PRN PRN Reason: Pain, Severe (7-10) Naloxone HCl (Naloxone 0.4 Mg/Ml Vial) 0.2 mg IV Q2MIN PRN PRN Reason: Opiate Reversal Non-Formulary Medication (Hydroxyurea (Sickle Cell)) 200 mg PO DAILY JONATHAN Discontinued Medications Doxycycline Hyclate (Doxycycline Hyclate 100 Mg Tablet) 100 mg PO NOW ONE Stop: 07/27/24 10:19 Last Admin: 07/27/24 11:23 Dose: 100 mg Documented By: DERIAN Hydromorphone HCl (Hydromorphone 1 Mg Inj) 1 mg IV NOW ONE Stop: 07/27/24 08:49 Last Admin: 07/27/24 08:55 Dose: 1 mg Documented By: BRITTNI Hydromorphone HCl (Hydromorphone 1 Mg Inj) 1 mg IV NOW ONE Stop: 07/27/24 10:22 Last Admin: 07/27/24 10:35 Dose: 1 mg Documented By: BRITTNI Sodium Chloride (Normal Saline 0.9%) 1,000 mls @ 1,000 mls/hr IV BOLUS ONE Stop: 07/27/24 09:46 Last Infusion: 07/27/24 10:16 Dose: Infused Documented By: Admin: 07/27/24 08:57 Dose: 1,000 mls/hr Documented By: BRITTNI Ceftriaxone Sodium 1,000 mg/ (Sodium Chloride) 100 mls @ 200 mls/hr IV NOW ONE Stop: 07/27/24 09:59 Last Infusion: 07/27/24 11:05 Dose: Infused Documented By: Infusion: 07/27/24 10:50 Dose: 200 mls/hr Documented By: Admin: 07/27/24 10:29 Dose: 200 mls/hr Documented By: BRITTNI Vital Signs Vital signs: Vital Signs - 8 hr 07/27/24 06:31 07/27/24 06:40 07/27/24 07:00 Temperature 98.9 F Pulse Rate 94 H 86 88 Respiratory Rate 19 25 H Blood Pressure 118/64 Pulse Oximetry 96 97 97 Oxygen Delivery Method Room Air Oxygen Flow Rate 07/27/24 07:30 07/27/24 07:38 07/27/24 07:38 Temperature Pulse Rate 87 83 Respiratory Rate 29 H 22 Blood Pressure 109/61 Pulse Oximetry 97 98 Oxygen Delivery Method Room Air Oxygen Flow Rate 07/27/24 08:00 07/27/24 08:00 07/27/24 08:30 Temperature Pulse Rate 87 Respiratory Rate 16 Blood Pressure 112/67 111/57 L Pulse Oximetry 98 Oxygen Delivery Method Room Air Oxygen Flow Rate 07/27/24 08:30 07/27/24 09:00 07/27/24 09:00 Temperature Pulse Rate 95 H 96 H Respiratory Rate 20 Blood Pressure 104/64 Pulse Oximetry 96 96 Oxygen Delivery Method Room Air Nasal Cannula Oxygen Flow Rate 2 07/27/24 09:30 07/27/24 09:40 07/27/24 09:40 Temperature Pulse Rate 102 H 91 H Respiratory Rate 24 Blood Pressure 122/66 Pulse Oximetry 94 98 Oxygen Delivery Method Oxygen Flow Rate 07/27/24 10:00 07/27/24 10:00 07/27/24 10:30 Temperature Pulse Rate 81 83 Respiratory Rate 24 18 Blood Pressure 124/66 Pulse Oximetry 98 99 Oxygen Delivery Method Nasal Cannula Nasal Cannula Oxygen Flow Rate 2 2 07/27/24 10:30 Temperature Pulse Rate Respiratory Rate Blood Pressure 112/64 Pulse Oximetry Oxygen Delivery Method Oxygen Flow Rate MDM - Chest Pain Lab Data 07/27/24 06:45 07/27/24 06:45 Labs: Lab Results 07/27/24 07/27/24 07/27/24 Range/Units 06:45 09:10 10:22 WBC 27.3 H (4.5-11.0) X10^3/uL RBC 4.28 L (4.5-5.9) X10^6/uL Hgb 10.4 L (13.5-17.5) g/dL Hct 31.7 L (41-53) % MCV 73.9 L (80-100) fL MCH 24.2 L (26-34) PG MCHC 32.8 (30-36) % RDW 18.5 H (11.6-14.8) % Plt Count 268 (150-400) X10^3/uL Neut % (Auto) Not Reportable Lymph % (Auto) Not Reportable [place] % (Auto) Not Reportable Eos % (Auto) Not Reportable Baso % (Auto) Not Reportable Lymph # (Auto) Not Reportable [place] # (Auto) Not Reportable Baso # (Auto) Not Reportable Total Counted 100 Seg Neutrophils % 77.0 H (38-70) % Band Neutrophils % 7.0 (3-7) % Lymphocytes % (Manual) 9.0 L (25-45) % Monocytes % (Manual) 4.0 (2-11) % Basophils % (Manual) 3.0 H (0-1) % Neutrophils # (Manual) 42333 H (6911-9988) /uL RBC Morphology Not Reportable Poikilocytosis 1+ H Anisocytosis 1+ H [place] Cells 3+ H Percent Retic 5.9 H (0.9-2.6) % PT 15.5 H (9.4-12.5) SECONDS INR 1.4 H (0.9-1.3) APTT 27 (25.1-36.5) SECONDS Sodium 135 L (137-145) mmol/L Potassium 3.4 (3.4-5.1) mmol/L Chloride 101 (98-107) mmol/L Carbon Dioxide 22 (22-32) mmol/L BUN 8 L (9-20) mg/dL Creatinine 0.74 (0.66-1.25) mg/dL Estimated GFR > 60 (>60) mL/min BUN/Creatinine Ratio 10.8 (6-22) Glucose 92 (70-100) mg/dL Lactate 0.8 (0.7-2.1) mmol/L Calcium 8.8 (8.4-10.2) mg/dL Magnesium 1.8 (1.6-2.3) mg/dL Total Bilirubin 4.7 H (0.2-1.3) mg/dL AST 41 (17-59) IU/L ALT 21 (<50) IU/L Alkaline Phosphatase 111 (38-126) U/L Total Creatine Kinase 130 (55-170) U/L Troponin I < 0.012 (0.01-0.034) ng/mL NT-Pro-B Natriuret Pep < 20 (<125) pg/mL Total Protein 8.7 H (6.3-8.2) g/dL Albumin 4.9 (3.5-5.0) g/dL Globulin 3.8 (1.7-4.1) g/dL Albumin/Globulin Ratio 1.3 (1.0-2.8) Lipase 76 (23-300) U/L Procalcitonin 0.080 (<0.5) ng/mL Urine RBC None seen (0-5/HPF) Urine WBC 1-5/hpf (0-5/HPF) Ur Squamous Epith Cells None seen (0-5/HPF) Urine Bacteria None seen (None) Ur Culture Indicated? Specimen cultured Vol Urine Centrifuged 10ml (spun) Imaging Data Chest x-ray: Radiologist's Impression: [address] [address] XRay Report Signed Patient: Lucretia Keller MR#: [id number] : 2000 Acct:[id number] Age/Sex: 23 / M Date of Service: 07/27/24 Loc: ED Accession Number: [id number] Procedure: XR chest 1V Ordering Provider: Jeovanny Yost MD PROCEDURE: XR CHEST 1V INDICATIONS: chest pain TECHNIQUE: One view of the chest was acquired. COMPARISON: [facility], , XR CHEST 1V, 06/18/2024, 18:54. FINDINGS: Surgical changes and devices: None. Lungs and pleura: Lungs are clear. No pleural effusions or pneumothorax. Mediastinum: Mediastinal contours appear normal. Heart size is normal. Bones and chest wall: No suspicious bony lesions. Overlying soft tissues appear unremarkable. IMPRESSION: No acute cardiopulmonary abnormalities or focal consolidation. Dictated by: Patrice Wang M.D. on 07/27/2024 at 7:38 Approved by: Patrice Wang M.D. on 07/27/2024 at 7:39 ECG Data Attestation: I personally reviewed and interpreted this ECG as follows: Interpretation: Sinus rhythm rate 89 W[place] 208 QRS of 90 QTC of 476, no acute ST elevation. [facility] Narrative Medical decision making narrative: 23-year-old male presents with complaint of chest for the past 2 days, patient is notes discomfort bilateral extremities and headache. He is not hypoxic, heart rates in the 90s. Patient overall well-appearing but does have a history of sickle cell with prior left hemiparesis from childhood stroke. Patient was placed on fluids given a dose of IV Dilaudid and placed on oxygen. He has not been hypoxic here in the department. Labs show leukocytosis of 27 up from patient's priors hemoglobin is 10.4 today with platelets of 268 segmented neutrophils are 75% has 3% basophils. Reticulocyte count INR is 1.4, PTT is 27. Chemistries show normal renal function sodium of 135 otherwise normal electrolytes glucose of 92 bilirubin is 4.7 AST is 41 ALT is 21 alk-phos is 111 troponins less than 0.012 with a total CK of 130 and BNP of 20. Lipase is 76. Lactate 0.8. Procalcitonin is 0.08. Blood cultures were obtained. Chest x-ray shows no acute change or focal consolidation. EKG shows sinus rhythm rate 89 WV 208 QRS of 90 QTC of 476, patient does have some abnormalities but appears similar to 06/15/2024 On recheck after saline, pain medication and oxygen patient had some improvement. Given additional dose of pain medication. Patient was given Rocephin and doxycycline as well. Acute chest syndrome with a differential although patient is overall pretty well-appearing, hemoglobin appears pretty stable but would take count is up although not at maximum he does have significant leukocytosis worse than his most recent admission. Reviewed patient's prior admissions and hematology recommendations from that time. Discussed with Dr. Albert hospitalist findings from today would like to admit. He was comfortable with the plan. Patient is agreeable as well. Spoke with Dr. Albert, hospitalist who accepts for admission for sickle cell crisis. Discharge Plan Departure Patient Disposition: Admitted As Inpatient Clinical Impression: Sickle cell disease with crisis Admit Date/Time: 07/27/24 10:40 Admit Provider: Pili Albert
[2024-07-27] MEDS: HYDROMORPHONE 1 MG INJ IV ×2 (08:55→10:35)
[2024-07-27] MEDS: SODIUM CHLORIDE 0.9% 1,000 ML 1000 ML IV (08:57)
[2024-07-27 09:18] LABS: Reticulocyte Count, Percent 5.9 % (0.9-2.6)
[2024-07-27 09:36] LABS: Lactate (Lactic Acid) 0.8 mmol/L (0.7-2.1)
[2024-07-27] MEDS: cefTRIAXone 1,000 MG in SODIUM CHLORIDE 0.9% 100 ML 200 MG IV (10:29)
[2024-07-27 10:57] LABS: Urine Volume 10mL (spun)
[2024-07-27 11:00] LABS: Bacteria Urine None Seen; Culture Indicated Urine Specimen Cultured; RBC Urine None Seen (0-5/HPF); Squamous Epithelial Cell Urine None Seen (0-5/HPF); WBC Urine 1-5/HPF (0-5/HPF)
--- NOTE | 2024-07-27 11:10 | P.HP_ITS ---
History of Present Illness History of Present Illness Date Patient Seen: 07/27/24 Time Patient Seen: 11:10 Chief complaint: chest pain, headache t-2 Narrative: This is a 23-year-old male with sickle cell anemia who was admitted in crisis with aching substernal chest pain along with a white blood count of 27. The hemoglobin is 10.4. The chest x-ray is normal. 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 His last hospitalization 1 month ago was at this hospital with a similar presentation of chest pain and leukocytosis. He was referred to hematology at [facility] and to a local PCP but has not followed up with either 1 of those. This current episode started 2 days ago. He is already on allopurinol, folate and hydroxyurea, presumably from his previous physician in [place]? His parents both had sickle cell trait. He is requiring opioid therapy. [facility] Medical History (Updated 07/27/24 @ 11:30 by Pili Albert MD) Avascular necrosis of bone Contracture, left elbow Contracture, left hand CVA (cerebral vascular accident) Sickle cell anemia Surgical History (Updated 07/27/24 @ 11:30 by Pili Albert MD) History of shoulder surgery 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 Family History (Updated 07/27/24 @ 11:31 by Pili Albert MD) Father Cancer Sickle cell trait Mother Sickle cell trait Social History household members: significant other Smoking Status: Never smoker Meds Home Medications and Allergies Home Medications Medication Instructions Recorded Confirmed Type hydrocodone 5 mg-acetaminophen 325 1 tab PO Q6H PRN pain #20 tabs 12/06/22 07/27/24 Rx mg tablet hydroxyurea (sickle cell) 200 mg 200 mg PO DAILY #30 caps 07/01/23 07/27/24 Rx capsule doxycycline hyclate 100 mg tablet 100 mg PO BID #6 tabs 06/22/24 07/27/24 Rx oxycodone 5 mg capsule 5 mg PO Q6H PRN pain #15 caps 06/22/24 07/27/24 Rx penicillin V potassium 250 mg 250 mg PO BID 07/27/24 07/27/24 History tablet Allergies Allergy/AdvReac Type Severity Reaction Status Date / Time No Known Drug Allergies Allergy Verified 09/17/23 15:17 Review of Systems Review of Systems Narrative: Positive for chest pain, left upper extremity weakness and contracture. Negative for shortness breath, coughing, nausea, vomiting, abdominal pain, headache, vision problems, fevers, chills, sweats, bleeding, rashes, new allergies, sore throat. Exam Vital Signs (past 8 hours): - 07/27/24 06:31 07/27/24 06:40 07/27/24 07:00 Temperature 98.9 F Pulse Rate 94 H 86 88 Respiratory Rate 19 25 H Blood Pressure 118/64 Pulse Oximetry 96 97 97 Oxygen Delivery Method Room Air Oxygen Flow Rate 07/27/24 07:30 07/27/24 07:38 07/27/24 07:38 Temperature Pulse Rate 87 83 Respiratory Rate 29 H 22 Blood Pressure 109/61 Pulse Oximetry 97 98 Oxygen Delivery Method Room Air Oxygen Flow Rate 07/27/24 08:00 07/27/24 08:00 07/27/24 08:30 Temperature Pulse Rate 87 Respiratory Rate 16 Blood Pressure 112/67 111/57 L Pulse Oximetry 98 Oxygen Delivery Method Room Air Oxygen Flow Rate 07/27/24 08:30 07/27/24 09:00 07/27/24 09:00 Temperature Pulse Rate 95 H 96 H Respiratory Rate 20 Blood Pressure 104/64 Pulse Oximetry 96 96 Oxygen Delivery Method Room Air Nasal Cannula Oxygen Flow Rate 2 07/27/24 09:30 07/27/24 09:40 07/27/24 09:40 Temperature Pulse Rate 102 H 91 H Respiratory Rate 24 Blood Pressure 122/66 Pulse Oximetry 94 98 Oxygen Delivery Method Oxygen Flow Rate 07/27/24 10:00 07/27/24 10:00 07/27/24 10:30 Temperature Pulse Rate 81 83 Respiratory Rate 24 18 Blood Pressure 124/66 Pulse Oximetry 98 99 Oxygen Delivery Method Nasal Cannula Nasal Cannula Oxygen Flow Rate 2 2 07/27/24 10:30 Temperature Pulse Rate Respiratory Rate Blood Pressure 112/64 Pulse Oximetry Oxygen Delivery Method Oxygen Flow Rate Oxygen Delivery Method Nasal Cannula Oxygen Flow Rate 2 Narrative Exam Narrative: He is alert and oriented, in no apparent distress. Pupils are equally round and reactive to light and accommodation. Extraocular muscles are intact. Sclerae are pink and nonicteric. Throat looks normal. No lymph nodes are felt head, neck, supraclavicular area. There is no thyromegaly. JVD is less than 6 cm. Heart is regular rate and rhythm without murmur Lungs are clear to auscultation bilaterally There is no chest wall tenderness Abdomen is soft, bowel sounds positive, nontender, no organomegaly. Skin has no rash or jaundice. His left upper extremity is atrophic with fixed contractures at the elbow and the wrist. The hand is in a permanently flexed position but has surprisingly good strength. His lower extremities are atrophic with intact function 5/5 bilateral. Neuro exam: DTRs are symmetric. Cranial nerves 2-12 are intact. Sensation is intact. Objective Labs 07/27/24 06:45 07/27/24 06:45 Labs: Laboratory Results - last 24 hr 07/27/24 07/27/24 07/27/24 06:45 09:10 10:22 WBC 27.3 H RBC 4.28 L Hgb 10.4 L Hct 31.7 L MCV 73.9 L MCH 24.2 L MCHC 32.8 RDW 18.5 H Plt Count 268 Neut % (Auto) Not Reportable Lymph % (Auto) Not Reportable [place] % (Auto) Not Reportable Eos % (Auto) Not Reportable Baso % (Auto) Not Reportable Lymph # (Auto) Not Reportable [place] # (Auto) Not Reportable Baso # (Auto) Not Reportable Total Counted 100 Seg Neutrophils % 77.0 H Band Neutrophils % 7.0 Lymphocytes % (Manual) 9.0 L Monocytes % (Manual) 4.0 Basophils % (Manual) 3.0 H Neutrophils # (Manual) 87962 H RBC Morphology Not Reportable Poikilocytosis 1+ H Anisocytosis 1+ H [place] Cells 3+ H Percent Retic 5.9 H PT 15.5 H INR 1.4 H APTT 27 Sodium 135 L Potassium 3.4 Chloride 101 Carbon Dioxide 22 BUN 8 L Creatinine 0.74 Estimated GFR > 60 BUN/Creatinine Ratio 10.8 Glucose 92 Lactate 0.8 Calcium 8.8 Magnesium 1.8 Total Bilirubin 4.7 H AST 41 ALT 21 Alkaline Phosphatase 111 Total Creatine Kinase 130 Troponin I < 0.012 NT-Pro-B Natriuret Pep < 20 Total Protein 8.7 H Albumin 4.9 Globulin 3.8 Albumin/Globulin Ratio 1.3 Lipase 76 Procalcitonin 0.080 Urine RBC None seen Urine WBC 1-5/hpf Ur Squamous Epith Cells None seen Urine Bacteria None seen Ur Culture Indicated? Specimen cultured Vol Urine Centrifuged 10ml (spun) Assessment & Plan Assessment and plan (1) Sickle cell disease with crisis: Status: Acute Assessment & Plan narrative: This is a 23-year-old male with chest pain and leukocytosis consistent with a sickle cell chest pain crisis. He is admitted for antibiotics and opioid pain control. Sickle cell pain crisis-substernal chest pain -chest x-ray normal -Total CK of 130 and BNP of 20. Lipase is 76. Lactate 0.8. Procalcitonin is 0.08. Blood cultures were obtained. -EKG shows sinus rhythm rate 89 SC 208 QRS of 90 QTC of 476, patient does have some abnormalities but appears similar to 06/15/2024 -morphine and/or Dilaudid for pain -IV fluid -IV morphine -Follow-up with hematology and local PCP at discharge Leukocytosis/Asplenia -WBC 27.3 on admission -follow WBC. Chest x-ray negative. -no fever -history of splenectomy -doxycycline and ceftriaxone per Hematology recommendations Permanent left upper extremity contractures -status post left hemiparesis age 1 CVA sickle cell related. -he is about to start work at [employer] soon. Patient is mobile without any lower extremity symptoms so is not high risk for DVT. His mother in [place] is his backup decision maker. Time-Based Coding :: [TOTAL MINUTES] spent with patient and on the chart (including review of chart, obtaining history, exam, reviewing outside data, placing orders, documenting exam and treatment plan, and counseling patient) on [DATE].
[2024-07-27] MEDS: DOXYCYCLINE HYCLATE 100 MG TABLET PO (11:23)
[2024-07-27] MEDS: SODIUM CHLORIDE 0.45% 1,000 ML 100 ML IV ×2 (11:24→20:13)
[2024-07-27] MEDS: MORPHINE 4 MG/ML INJ 3 MG IV ×5 (12:12→21:59)
[2024-07-27] MEDS: ONDANSETRON 4 MG/2 ML INJ IV (12:12)
[2024-07-27] MEDS: HYDROCODONE/ACET 5/325 TABLET 1 TAB PO (15:34)
[2024-07-27] MEDS: DOXYCYCLINE 100 MG in SODIUM CHLORIDE 0.9% 100 ML IV (20:12)
[2024-07-28] VITALS: BP 116/65; PULSE 75; RESP 18; TEMP 37.1; O2SAT 96
[2024-07-28] MEDS: MORPHINE 4 MG/ML INJ 3 MG IV (05:10)
[2024-07-28 05:14] VITALS: BP 113/73; PULSE 90; RESP 19; TEMP 37; O2SAT 97
[2024-07-28] MEDS: SODIUM CHLORIDE 0.45% 1,000 ML 100 ML IV (06:01)
--- NOTE | 2024-07-28 07:22 | PM.PN.1 ---
Exam Vital Signs (past 8 hours): - 07/28/24 00:00 07/28/24 05:14 Temperature 98.8 F 98.6 F Pulse Rate 75 90 Respiratory Rate 18 19 Blood Pressure 116/65 113/73 Pulse Oximetry 96 97 Oxygen Delivery Method Nasal Cannula Oxygen Flow Rate 0 Objective Labs 07/27/24 06:45 07/27/24 06:45 Labs: Laboratory Results - last 24 hr 07/27/24 07/27/24 07/27/24 06:45 09:10 10:22 WBC 27.3 H RBC 4.28 L Hgb 10.4 L Hct 31.7 L MCV 73.9 L MCH 24.2 L MCHC 32.8 RDW 18.5 H Plt Count 268 Neut % (Auto) Not Reportable Lymph % (Auto) Not Reportable [place] % (Auto) Not Reportable Eos % (Auto) Not Reportable Baso % (Auto) Not Reportable Lymph # (Auto) Not Reportable [place] # (Auto) Not Reportable Baso # (Auto) Not Reportable Total Counted 100 Seg Neutrophils % 77.0 H Band Neutrophils % 7.0 Lymphocytes % (Manual) 9.0 L Monocytes % (Manual) 4.0 Basophils % (Manual) 3.0 H Neutrophils # (Manual) 77935 H RBC Morphology Not Reportable Poikilocytosis 1+ H Anisocytosis 1+ H [place] Cells 3+ H Percent Retic 5.9 H PT 15.5 H INR 1.4 H APTT 27 Sodium 135 L Potassium 3.4 Chloride 101 Carbon Dioxide 22 BUN 8 L Creatinine 0.74 Estimated GFR > 60 BUN/Creatinine Ratio 10.8 Glucose 92 Lactate 0.8 Calcium 8.8 Magnesium 1.8 Total Bilirubin 4.7 H AST 41 ALT 21 Alkaline Phosphatase 111 Total Creatine Kinase 130 Troponin I < 0.012 NT-Pro-B Natriuret Pep < 20 Total Protein 8.7 H Albumin 4.9 Globulin 3.8 Albumin/Globulin Ratio 1.3 Lipase 76 Procalcitonin 0.080 Urine RBC None seen Urine WBC 1-5/hpf Ur Squamous Epith Cells None seen Urine Bacteria None seen Ur Culture Indicated? Specimen cultured Vol Urine Centrifuged 10ml (spun) [facility] Medical History (Updated 07/27/24 @ 11:52 by Beverley Kumar DO) Avascular necrosis of bone Contracture, left elbow Contracture, left hand CVA (cerebral vascular accident) Sickle cell anemia Surgical History (Updated 07/27/24 @ 11:30 by Pili Albert MD) History of shoulder surgery 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 Family History (Updated 07/27/24 @ 11:31 by Pili Albert MD) Father Cancer Sickle cell trait Mother Sickle cell trait Social History household members: significant other Smoking Status: Never smoker Assessment & Plan Assessment & Plan narrative: This is a 23-year-old male with chest pain and leukocytosis consistent with a sickle cell chest pain crisis. He is admitted for antibiotics and opioid pain control. Sickle cell pain crisis-substernal chest pain -chest x-ray normal -Total CK of 130 and BNP of 20. Lipase is 76. Lactate 0.8. Procalcitonin is 0.08. Blood cultures were obtained. -EKG shows sinus rhythm rate 89 [place] 208 QRS of 90 QTC of 476, patient does have some abnormalities but appears similar to 06/15/2024 -morphine and/or Dilaudid for pain -IV fluid -IV morphine -Follow-up with hematology and local PCP at discharge Leukocytosis/Asplenia -WBC 27.3 on admission -follow WBC. Chest x-ray negative. -no fever -history of splenectomy -doxycycline and ceftriaxone per Hematology recommendations Permanent left upper extremity contractures -status post left hemiparesis age 1 CVA sickle cell related. -he is about to start work at [employer] soon. Patient is mobile without any lower extremity symptoms so is not high risk for DVT. His mother in [place] is his backup decision maker. Time-Based Coding :: [TOTAL MINUTES] spent with patient and on the chart (including review of chart, obtaining history, exam, reviewing outside data, placing orders, documenting exam and treatment plan, and counseling patient) on [DATE]. Quality VTE Deep Vein Thrombosis/Pulmonary Embolism Present on Admission: No
[2024-07-28 07:47] VITALS: BP 114/64; PULSE 69; RESP 17; TEMP 36.8; O2SAT 98
[2024-07-28] MEDS: DOXYCYCLINE 100 MG in SODIUM CHLORIDE 0.9% 100 ML IV (08:30)
[2024-07-28] MEDS: SODIUM CHLORIDE 0.9% FLUSH 10 ML IV (08:32)
[2024-07-28 08:56] LABS: Add Manual Diff / Slide Review NO; Basophils Absolute Auto 100 /uL (0-100); Basophils Percent Auto 0.5 % (0-2); Eosinophils Absolute Auto 100 /uL (0-450); Eosinophils Percent Auto 0.6 % (2-4); Hematocrit 28.8 % (41-53); Hemoglobin 9.6 g/dL (13.5-17.5); Lymphocytes Absolute Auto 6800 /uL (1100-4500); Lymphocytes Percent Auto 29.2 % (25-40); Mean Corpuscular HGB Conc 33.2 % (30-36); Mean Corpuscular Hemoglobin 24.7 PG (26-34); Mean Corpuscular Volume 74.3 fL (80-100); Monocytes Absolute Auto 1100 /uL (0-900); Monocytes Percent Auto 4.9 % (3-14); Neutrophils Absolute Auto 15000 /uL (1500-7000); Neutrophils Percent Auto 64.8 % (50-75); Platelet Count 230 X10^3/uL (150-400); Red Blood Cell Count 3.88 X10^6/uL (4.5-5.9); Red Cell Distribution Width 18.2 % (11.6-14.8); White Blood Cell Count 23.2 X10^3/uL (4.5-11.0)
[2024-07-28 09:03] LABS: BUN Creatinine Ratio 5.3 (6-22); Blood Urea Nitrogen 3 mg/dL (9-20); Calcium 8.3 mg/dL (8.4-10.2); Carbon Dioxide 22 mmol/L (22-32); Chloride 104 mmol/L (98-107); Estimated Glomerular Filt Rate > 60 mL/min (>60); Glucose 82 mg/dL (70-100); HEMOLYSIS < 15 (0-50); Potassium 3.5 mmol/L (3.4-5.1); Sodium 134 mmol/L (137-145)
--- NOTE | 2024-07-28 12:21 | PC.NURSE ---
Addendum entered by Janet Vidal R.N. 07/28/24 13:57: pt leaving AMA , dc'd home with written and verbal instruction Original Note: pt has denied pain all shift, up to shower no complaints. pt iv infiltrated and removed pt wants to talk with md- notified-pt refusing IV start at this time.
--- NOTE | 2024-07-28 13:20 | CM.DPNOTE ---
Patient wanting to leave against medical advice. Hospitalist requested PCP appointment be arranged for patient. Per previous notes patient was arranged to see Dr. Meza on 06/26/24. Patient advised he was in the process of moving from [place] to [place] and forgot to go. Hand Router Operator discussed importance of getting established so patient can be referred to hematology for Sickle Cell management. Patient acknowledged his understanding. Provided patient with information to call and schedule another appointment. Sent message to chronic care management team to follow up with patient, also.
--- NOTE | 2024-07-28 13:37 | P.DS_ITS ---
History of Present Illness History of Present Illness Chief complaint: chest pain, headache t-2 Narrative: This is a 23-year-old male with sickle cell anemia who was admitted in crisis with aching substernal chest pain along with a white blood count of 27. The hemoglobin is 10.4. The chest x-ray is normal. 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 His last hospitalization 1 month ago was at this hospital with a similar presentation of chest pain and leukocytosis. He was referred to hematology at [facility] and to a local PCP but has not followed up with either 1 of those. This current episode started 2 days ago. He is already on allopurinol, folate and hydroxyurea, presumably from his previous physician in [place]? His parents both had sickle cell trait. He is requiring opioid therapy. Discharge Providers Provider Date of admission: 07/27/24 10:40 Discharge Date: 07/28/24 Primary care physician: Evens Valdez MD Consults: 07/27/24 11:36 Consult to Dietitian, Adult Routine Comment: Reason For Exam: n/a Consult to [facility] – [place] - Head Nurse Routine Comment: Head Nurse Consult needed for:: Other reason (Comment) Discharge provider: Pili Albert MD Summary Hospital Course Hospital Course: He came in with a moderate pain crisis from the sickle cell, mainly in the chest, and a white count of 27, down to 23.2 on the day of discharge. The hemoglobin dropped to 9.6. He was advised to remain in the hospital on IV antibiotics but since he was no longer having pain today he insists on leaving against my medical advice. He will be given a prescription for doxycycline and penicillin. He has not been needing any of the oxycodone or hydrocodone so that will not be continued. He says that he feels much much better. He was again reminded of the primary care referral that he was given at his last admission 1 month ago which he had not followed up on. His mother, in [place], will also be given that information as he is quite dependent on her despite living here. Status at Discharge Cognitive/behavioral status at discharge: oriented Functional status at discharge: independent ambulation Overall status at discharge: patient is back to baseline Exam Vital Signs (past 8 hours): - 12/15/24 07:47 Temperature 98.2 F Pulse Rate 69 Respiratory Rate 17 Blood Pressure 114/64 Pulse Oximetry 98 Oxygen Flow Rate 0 Oxygen Delivery Method Nasal Cannula Oxygen Flow Rate 0 Narrative Exam Narrative: Alert and oriented x3. No apparent distress. Up and walking in the room. Heart is regular rate and rhythm without murmur Lungs are clear to auscultation bilaterally Abdomen is soft, bowel sounds positive, nontender, no organomegaly Extremities have no ankle edema. The left arm has several contractures. Objective Labs 07/28/24 08:45 07/28/24 08:45 Labs: Laboratory Results - last 24 hr 07/28/24 08:45 WBC 23.2 H RBC 3.88 L Hgb 9.6 L Hct 28.8 L MCV 74.3 L MCH 24.7 L MCHC 33.2 RDW 18.2 H Plt Count 230 Neut % (Auto) 64.8 Lymph % (Auto) 29.2 [place] % (Auto) 4.9 Eos % (Auto) 0.6 L Baso % (Auto) 0.5 Neut # (Auto) 56819 H Lymph # (Auto) 6800 H [place] # (Auto) 1100 H Eos # (Auto) 100 Baso # (Auto) 100 Sodium 134 L Potassium 3.5 Chloride 104 Carbon Dioxide 22 BUN 3 L Creatinine 0.57 L Estimated GFR > 60 BUN/Creatinine Ratio 5.3 L Glucose 82 Calcium 8.3 L PFSH Medical History (Updated 07/27/24 @ 11:52 by Beverley Kumar DO) Avascular necrosis of bone Contracture, left elbow Contracture, left hand CVA (cerebral vascular accident) Sickle cell anemia Surgical History (Updated 07/27/24 @ 11:30 by Pili Albert MD) History of shoulder surgery 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 Family History (Updated 07/27/24 @ 11:31 by Pili Albert MD) Father Cancer Sickle cell trait Mother Sickle cell trait Social History household members: significant other Smoking Status: Never smoker Discharge Plan Discharge Plan Patient Disposition: Home Provider Discharge Comment: He is leaving today against my medical advice to him. Discharge orders & Medications Prescriptions: Continued penicillin V potassium 250 mg tablet 250 mg PO BID Qty: 30 0RF doxycycline hyclate 100 mg Tablet 100 mg PO BID Qty: 14 0RF hydroxyurea (sickle cell) 200 mg capsule 200 mg PO DAILY Qty: 30 0RF Discontinued hydrocodone-acetaminophen 5-325 mg tablet 1 tab PO Q6H PRN (Reason: pain) Qty: 20 0RF oxycodone 5 mg capsule 5 mg PO Q6H PRN (Reason: pain) Qty: 15 0RF Follow up/Referrals: Evens Valdez MD [Primary Care Provider] - Diet/Activity/Treatments Diet: Diet as Tolerated Visit Report/Discharge Packet Stand Alone Forms: Patient Portal/API, Stroke Signs & Symptoms Discharge Data Primary Care Provider: Evens Valdez Quality VTE Deep Vein Thrombosis/Pulmonary Embolism Present on Admission: No
== END 2024-07-28 13:59 | disposition left against medical advice (07) | DRG 662 ==
LOC: ED 08:07 → AC 10:41
PROVIDERS: Emergency Medicine; Admitting Provider Family Medicine; Emergency Provider Emergency Medicine; PCP Family Medicine; Referring Provider Emergency Medicine; Visit Provider Family Medicine
DX: D57.00 Hb-SS disease with crisis, unspecified (principal); I69.354 Hemiplegia and hemiparesis following cerebral infarction affecting left non-dominant side; M24.522 Contracture, left elbow; M24.542 Contracture, left hand; Z90.81 Acquired absence of spleen; Z96.642 Presence of left artificial hip joint; Z53.29 Procedure and treatment not carried out because of patient's decision for other reasons
CPT/HCPCS: 36415; 71045; 80048; 80053; 81003; 81015; 82550; 83605; 83690; 83735; 83880; 84145; 84484; 85007; 85025; 85045; 85610; 85730; 87040; 87086; 93005; 96361; 96365; 96375; 96376; 99285; J0696; J1171; J2270; J2405; J7050

== ENCOUNTER 2024-07-31 04:29 | Emergency (ER) | payer OTHER, SELFPAY ==
[2024-07-31 04:32] VITALS: BP 117/67; PULSE 85; RESP 16; TEMP 36.6; O2SAT 99; BMI 18.6
--- NOTE | 2024-07-31 04:36 | ED.GENADULT ---
HPI - General Adult <Beverley Gomes MD - Last Filed: 07/31/24 18:13> General Chief complaint: Back Pain/Injury Stated complaint: sickle cell crisis Time Seen by Provider: 07/31/24 04:30 History of Present Illness HPI narrative: 23yoM with PMH sickle cell disease, CVA w/residual LUE weakness/contracture, splenectomy, poor outpatient f/u presents by EMS from home for sickle cell pain. Reports waking up with hip, back, arm pain similar to previous. Denies chest pain, shortness of breath. 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 Valdez PCP in 2020, was supposed to see Dr. Meza on 06/26/24 for f/u sickle cell crisis, however patient was a no-show. Patient states he is taking hydroxyurea and penicillin. Reports compliance with this medication. Related Data Previous Rx's Medication Instructions Recorded hydroxyurea (sickle cell) 200 mg 200 mg PO DAILY #30 caps 07/01/23 capsule doxycycline hyclate 100 mg tablet 100 mg PO BID #14 tabs 07/28/24 penicillin V potassium 250 mg 250 mg PO BID #30 tabs 07/28/24 tablet naloxone 4 mg/actuation nasal 4 mg intranasal Q2M PRN opioid 07/31/24 spray (Narcan) overdose #2 ea ondansetron 4 mg disintegrating 4 mg PO Q8H PRN nausea and 07/31/24 tablet vomiting #20 tabs oxycodone-acetaminophen 5 mg-325 1 tab PO Q4-6H PRN pain #16 tabs 07/31/24 mg tablet (Percocet) Allergies Allergy/AdvReac Type Severity Reaction Status Date / Time No Known Drug Allergies Allergy Verified 09/17/23 15:17 Patient History <Beverley Gomes MD - Last Filed: 07/31/24 18:13> Medical History Avascular necrosis of bone Contracture, left elbow Contracture, left hand CVA (cerebral vascular accident) Sickle cell anemia Surgical History History of shoulder surgery 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 Family History Father Cancer Sickle cell trait Mother Sickle cell trait Social History household members: significant other Smoking Status: Never smoker Smoking Status: Never smoker alcohol intake frequency: holidays/special occasions only Exam <Beverley Gomes MD - Last Filed: 07/31/24 18:13> Initial Vital Signs Initial Vital Signs: Vital Signs Temperature 97.8 F 07/31/24 04:32 Pulse Rate 85 07/31/24 04:32 Respiratory Rate 16 07/31/24 04:32 Blood Pressure 117/67 07/31/24 04:32 Pulse Oximetry 99 07/31/24 04:32 Oxygen Delivery Method Room Air 07/31/24 04:32 Const: Awake, alert, no acute distress, nontoxic appearing Cardiac: regular rate, regular rhythm RESP: unlabored, clear bilaterally, no wheezing Skin: Warm, Dry, intact, no rashes Neuro: AO x3, CN II-XII grossly intact, LUE contractures <Torsten Stanley MD - Last Filed: 07/31/24 09:29> Initial Vital Signs Initial Vital Signs: Vital Signs Temperature 97.8 F 07/31/24 04:32 Pulse Rate 85 07/31/24 04:32 Respiratory Rate 16 07/31/24 04:32 Blood Pressure 117/67 07/31/24 04:32 Pulse Oximetry 99 07/31/24 04:32 Oxygen Delivery Method Room Air 07/31/24 04:32 Course <Beverley Gomes MD - Last Filed: 07/31/24 18:13> Orders Ordered: Discontinued Medications Hydromorphone HCl (Hydromorphone 1 Mg Inj) 1 mg IV NOW ONE Stop: 07/31/24 04:42 Last Admin: 07/31/24 04:52 Dose: 1 mg Documented By: TUNG Hydromorphone HCl (Hydromorphone 1 Mg Inj) 1 mg IV NOW ONE Stop: 07/31/24 05:40 Last Admin: 07/31/24 05:57 Dose: 1 mg Documented By: TUNG Hydromorphone HCl (Hydromorphone 1 Mg Inj) 1 mg IV NOW ONE Stop: 07/31/24 06:52 Last Admin: 07/31/24 07:52 Dose: 1 mg Documented By: BRIGITTE Acetaminophen (Ofirmev) 1,000 mg in 100 mls @ 400 mls/hr IV NOW ONE Stop: 07/31/24 04:55 Last Infusion: 07/31/24 06:09 Dose: Infused Documented By: Admin: 07/31/24 04:52 Dose: 400 mls/hr Documented By: TUNG Sodium Chloride (Normal Saline 0.9%) 1,000 mls @ 1,000 mls/hr IV BOLUS ONE Stop: 07/31/24 05:40 Last Infusion: 07/31/24 06:17 Dose: Infused Documented By: Admin: 07/31/24 04:51 Dose: 1,000 mls/hr Documented By: TUNG Sodium Chloride (Normal Saline 0.9%) 1,000 mls @ 1,000 mls/hr IV BOLUS ONE Stop: 07/31/24 08:39 Last Infusion: 07/31/24 09:04 Dose: Infused Documented By: Admin: 07/31/24 07:52 Dose: 1,000 mls/hr Documented By: BRIGITTE Ketorolac Tromethamine (Ketorolac 30 Mg/Ml Vial) 15 mg IV NOW ONE Stop: 07/31/24 04:46 Last Admin: 07/31/24 04:52 Dose: 15 mg Documented By: TUNG Oxycodone/Acetaminophen (Oxycodone/Acetaminophen 5/325 Tablet) 2 tab PO NOW ONE Stop: 07/31/24 08:51 Last Admin: 07/31/24 08:57 Dose: 2 tab Documented By: SPF Vital Signs Vital signs: Vital Signs - 8 hr 07/31/24 04:32 07/31/24 06:41 07/31/24 08:30 Temperature 97.8 F Pulse Rate 85 60 60 Respiratory Rate 16 18 18 Blood Pressure 117/67 100/60 106/62 Pulse Oximetry 99 97 99 Oxygen Delivery Method Room Air Room Air Nasal Cannula Oxygen Flow Rate 2 <Torsten Stanley MD - Last Filed: 07/31/24 09:29> Orders Ordered: Discontinued Medications Hydromorphone HCl (Hydromorphone 1 Mg Inj) 1 mg IV NOW ONE Stop: 07/31/24 04:42 Last Admin: 07/31/24 04:52 Dose: 1 mg Documented By: TUNG Hydromorphone HCl (Hydromorphone 1 Mg Inj) 1 mg IV NOW ONE Stop: 07/31/24 05:40 Last Admin: 07/31/24 05:57 Dose: 1 mg Documented By: TUNG Hydromorphone HCl (Hydromorphone 1 Mg Inj) 1 mg IV NOW ONE Stop: 07/31/24 06:52 Last Admin: 07/31/24 07:52 Dose: 1 mg Documented By: BRIGITTE Acetaminophen (Ofirmev) 1,000 mg in 100 mls @ 400 mls/hr IV NOW ONE Stop: 07/31/24 04:55 Last Infusion: 07/31/24 06:09 Dose: Infused Documented By: Admin: 07/31/24 04:52 Dose: 400 mls/hr Documented By: TUNG Sodium Chloride (Normal Saline 0.9%) 1,000 mls @ 1,000 mls/hr IV BOLUS ONE Stop: 07/31/24 05:40 Last Infusion: 07/31/24 06:17 Dose: Infused Documented By: Admin: 07/31/24 04:51 Dose: 1,000 mls/hr Documented By: TUNG Sodium Chloride (Normal Saline 0.9%) 1,000 mls @ 1,000 mls/hr IV BOLUS ONE Stop: 07/31/24 08:39 Last Infusion: 07/31/24 09:04 Dose: Infused Documented By: Admin: 07/31/24 07:52 Dose: 1,000 mls/hr Documented By: BRIGITTE Ketorolac Tromethamine (Ketorolac 30 Mg/Ml Vial) 15 mg IV NOW ONE Stop: 07/31/24 04:46 Last Admin: 07/31/24 04:52 Dose: 15 mg Documented By: TUNG Oxycodone/Acetaminophen (Oxycodone/Acetaminophen 5/325 Tablet) 2 tab PO NOW ONE Stop: 07/31/24 08:51 Last Admin: 07/31/24 08:57 Dose: 2 tab Documented By: BRITTNI Vital Signs Vital signs: Vital Signs - 8 hr 07/31/24 04:32 07/31/24 06:41 07/31/24 08:30 Temperature 97.8 F Pulse Rate 85 60 60 Respiratory Rate 16 18 18 Blood Pressure 117/67 100/60 106/62 Pulse Oximetry 99 97 99 Oxygen Delivery Method Room Air Room Air Nasal Cannula Oxygen Flow Rate 2 Medical Decision Making <Beverley A Eliseo, MD - Last Filed: 07/31/24 18:13> Lab Data 07/31/24 04:20 07/31/24 04:20 Labs: Lab Results 07/31/24 Range/Units 04:20 WBC 12.8 H (4.5-11.0) X10^3/uL RBC 4.30 L (4.5-5.9) X10^6/uL Hgb 10.6 L (13.5-17.5) g/dL Hct 32.0 L (41-53) % MCV 74.5 L (80-100) fL MCH 24.6 L (26-34) PG MCHC 33.1 (30-36) % RDW 18.3 H (11.6-14.8) % Plt Count 348 (150-400) X10^3/uL Neut % (Auto) Not Reportable Lymph % (Auto) Not Reportable [place] % (Auto) Not Reportable Eos % (Auto) Not Reportable Baso % (Auto) Not Reportable Lymph # (Auto) Not Reportable [place] # (Auto) Not Reportable Baso # (Auto) Not Reportable Total Counted 100 Seg Neutrophils % 40.0 (38-70) % Band Neutrophils % 5.0 (3-7) % Lymphocytes % (Manual) 30.0 (25-45) % Monocytes % (Manual) 22.0 H (2-11) % Eosinophils % (Manual) 3.0 (2-4) % Neutrophils # (Manual) 5760 (5583-4131) /uL Nucleated RBCs 1 H ( - 0) #/Diff Platelet Estimate Adequate on smear RBC Morphology See below Anisocytosis 1+ H Microcytosis 1+ H Target Cells 1+ H Percent Retic 6.0 H (0.9-2.6) % Sodium 139 (137-145) mmol/L Potassium 3.6 (3.4-5.1) mmol/L Chloride 103 (98-107) mmol/L Carbon Dioxide 26 (22-32) mmol/L BUN 7 L (9-20) mg/dL Creatinine 0.63 L (0.66-1.25) mg/dL Estimated GFR > 60 (>60) mL/min BUN/Creatinine Ratio 11.1 (6-22) Glucose 96 (70-100) mg/dL Calcium 9.1 (8.4-10.2) mg/dL Total Bilirubin 2.4 H (0.2-1.3) mg/dL AST 44 (17-59) IU/L ALT 22 (<50) IU/L Alkaline Phosphatase 101 (38-126) U/L Total Protein 8.6 H (6.3-8.2) g/dL Albumin 4.9 (3.5-5.0) g/dL Globulin 3.7 (1.7-4.1) g/dL Albumin/Globulin Ratio 1.3 (1.0-2.8) MDM Narrative Medical decision making narrative: Sickle cell crisis similar to previous. Hemodynamically stable, resting comfortably in ED bed. Laboratory work, pain medications ordered. Patient recently admitted for same. Apparently left Against Medical Advice on 07/28 after feeling better. Patient continues to complain of pain, additional pain medications ordered. WBC count 12.8, hemoglobin 10.6, platelet count 348, sodium 139, potassium 3.6, creatinine 0.63, T bili 2.4, reticulocyte count 6.0. Patient received multiple medications for pain, states it keeps coming back. Does not think it can be managed at home. Plan to admit. <Torsten Stanley MD - Last Filed: 07/31/24 09:29> Lab Data Labs: Lab Results 07/31/24 Range/Units 04:20 WBC 12.8 H (4.5-11.0) X10^3/uL RBC 4.30 L (4.5-5.9) X10^6/uL Hgb 10.6 L (13.5-17.5) g/dL Hct 32.0 L (41-53) % MCV 74.5 L (80-100) fL MCH 24.6 L (26-34) PG MCHC 33.1 (30-36) % RDW 18.3 H (11.6-14.8) % Plt Count 348 (150-400) X10^3/uL Neut % (Auto) Not Reportable Lymph % (Auto) Not Reportable [place] % (Auto) Not Reportable Eos % (Auto) Not Reportable Baso % (Auto) Not Reportable Lymph # (Auto) Not Reportable [place] # (Auto) Not Reportable Baso # (Auto) Not Reportable Total Counted 100 Seg Neutrophils % 40.0 (38-70) % Band Neutrophils % 5.0 (3-7) % Lymphocytes % (Manual) 30.0 (25-45) % Monocytes % (Manual) 22.0 H (2-11) % Eosinophils % (Manual) 3.0 (2-4) % Neutrophils # (Manual) 5760 (2147-6685) /uL Nucleated RBCs 1 H ( - 0) #/Diff Platelet Estimate Adequate on smear RBC Morphology See below Anisocytosis 1+ H Microcytosis 1+ H Target Cells 1+ H Percent Retic 6.0 H (0.9-2.6) % Sodium 139 (137-145) mmol/L Potassium 3.6 (3.4-5.1) mmol/L Chloride 103 (98-107) mmol/L Carbon Dioxide 26 (22-32) mmol/L BUN 7 L (9-20) mg/dL Creatinine 0.63 L (0.66-1.25) mg/dL Estimated GFR > 60 (>60) mL/min BUN/Creatinine Ratio 11.1 (6-22) Glucose 96 (70-100) mg/dL Calcium 9.1 (8.4-10.2) mg/dL Total Bilirubin 2.4 H (0.2-1.3) mg/dL AST 44 (17-59) IU/L ALT 22 (<50) IU/L Alkaline Phosphatase 101 (38-126) U/L Total Protein 8.6 H (6.3-8.2) g/dL Albumin 4.9 (3.5-5.0) g/dL Globulin 3.7 (1.7-4.1) g/dL Albumin/Globulin Ratio 1.3 (1.0-2.8) MDM Narrative Medical decision making narrative: Sickle cell crisis similar to previous. Hemodynamically stable, resting comfortably in ED bed. Laboratory work, pain medications ordered. Patient recently admitted for same. Apparently left Against Medical Advice on 07/28 after feeling better. Patient continues to complain of pain, additional pain medications ordered. WBC count 12.8, hemoglobin 10.6, platelet count 348, sodium 139, potassium 3.6, creatinine 0.63, T bili 2.4, reticulocyte count 6.0. Patient received multiple medications for pain, states it keeps coming back. Does not think it can be managed at home. Plan to admit. July 31, 2024 at 7:[address] Stanley: Sign out from Dr. Gomes. Awaiting for shift change with hospitalist. Will need admission for pain control sickle-cell crisis. Patient has received IV fluids Dilaudid Toradol. Labs are reassuring at this time. 7:[address] Stanley: Spoke with hospitalist, Dr. Belcher, who would like to try more pain control and IV fluids, call back if not successful for admission. Labs are reassuring at this time. 7:[address] Stanley, spoke with patient. He agrees with trying to get better handle of pain here in ER and may be able to void admission. After history and exam CBC CMP, pain control IV fluids, nasal cannula reticulocyte count MDM Medical records reviewed: Discharge summary from here 3 days ago Differential considered: Includes but not limited to sickle cell crisis Lab Test results independently reviewed as above. Pertinent findings: WBC 12.8 hemoglobin 10.6, at baseline. Reticulocyte count 6.0 at baseline. Imaging studies independently reviewed: None indicated at this time. Consultations: See above Treatments: Dilaudid normal saline Zofran Toradol Re-evaluations: 7:45 a.m. updated patient treatment plan. 8:51 a.m.. Patient feeling much better. Oxycodone tablets have been ordered. He desires discharge home, fluids and nasal cannula oxygen has helped him a lot. He has a very high tolerance to pain medication. He is awake alert oriented x4. Oxygen was given for sickle cell not for respiratory needs. He is desiring for discharge home because he started new job and does not want to be admitted. Discussion: Appropriate for discharge home. Exam is reassuring laboratory studies are reassuring. Patient feeling much better after treatment here. Not toxic at discharge. Return precautions reviewed. 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 He desires discharge home. Patient does have high tolerance to opiates. Has had visits here with multiple doses of opiates in the past. There is no respiratory compromise or altered mental status. Narcan prescription provided for patient to keep with him. I informed him that should be kept with him. Short course of pain medication provided for him. Diagnosis: Sickle cell crisis Discharge Plan Departure Patient Disposition: Home Clinical Impression: Sickle cell disease with crisis Instructions: DI for Sickle Cell Anemia, Pain Crisis -- Adult Activity Restrictions/Additional Instructions: Your exam and laboratory studies are reassuring. I am glad you are feeling better. Please do see your family doctor for re-evaluation. No driving operating machinery today. Return if worse if any questions or concerns. Prescriptions: New ondansetron 4 mg tablet,disintegrating 4 mg PO Q8H PRN (Reason: nausea and vomiting) Qty: 20 0RF oxycodone-acetaminophen [Percocet] 5-325 mg tablet 1 tab PO Q4-6H PRN (Reason: pain) Qty: 16 0RF naloxone [Narcan] 4 mg/actuation spray,non-aerosol 4 mg intranasal Q2M PRN (Reason: opioid overdose) Qty: 2 0RF Rx Instructions: spray 1 dose into ONE nostril; alternate nostrils w each dose until help arrives No Action penicillin V potassium 250 mg tablet 250 mg PO BID Qty: 30 0RF doxycycline hyclate 100 mg Tablet 100 mg PO BID Qty: 14 0RF hydroxyurea (sickle cell) 200 mg capsule 200 mg PO DAILY Qty: 30 0RF Referrals: Evens Valdez MD [Primary Care Provider] - Stand Alone Forms: Patient Portal/API/Survey, Work Release Note
[2024-07-31] MEDS: SODIUM CHLORIDE 0.9% 1,000 ML 1000 ML IV ×2 (04:51→07:52)
[2024-07-31] MEDS: KETOROLAC 30 MG/ML VIAL 15 MG IV (04:52)
[2024-07-31] MEDS: HYDROMORPHONE 1 MG INJ IV ×3 (04:52→07:52)
[2024-07-31] MEDS: ACETAMINOPHEN IV 1,000 MG/100 ML VIAL 400 MG IV (04:52)
[2024-07-31 05:11] LABS: Alanine Aminotransferase 22 IU/L (<50); Albumin 4.9 g/dL (3.5-5.0); Albumin Globulin Ratio 1.3 (1.0-2.8); Alkaline Phosphatase 101 U/L (38-126); Aspartate Aminotransferase 44 IU/L (17-59); BUN Creatinine Ratio 11.1 (6-22); Bilirubin Total 2.4 mg/dL (0.2-1.3); Blood Urea Nitrogen 7 mg/dL (9-20); Calcium 9.1 mg/dL (8.4-10.2); Carbon Dioxide 26 mmol/L (22-32); Chloride 103 mmol/L (98-107); Estimated Glomerular Filt Rate > 60 mL/min (>60); Globulin 3.7 g/dL (1.7-4.1); Glucose 96 mg/dL (70-100); HEMOLYSIS < 15 (0-50); Potassium 3.6 mmol/L (3.4-5.1); Sodium 139 mmol/L (137-145); Total Protein 8.6 g/dL (6.3-8.2)
[2024-07-31 05:18] LABS: Add Manual Diff / Slide Review YES; Hemoglobin 10.6 g/dL (13.5-17.5); Mean Corpuscular HGB Conc 33.1 % (30-36); Mean Corpuscular Hemoglobin 24.6 PG (26-34); Mean Corpuscular Volume 74.5 fL (80-100); Platelet Count 348 X10^3/uL (150-400); Red Cell Distribution Width 18.3 % (11.6-14.8); White Blood Cell Count 12.8 X10^3/uL (4.5-11.0)
[2024-07-31 05:28] LABS: Anisocytosis 1+; Microcytosis 1+; Neutrophils Absolute Manual 5760 /uL (3000-5900); Nucleated Red Blood Cells 1 #/Diff; Platelet Estimate Adequate on smear; Target Cells 1+; Total Cells Counted 100
[2024-07-31 06:41] VITALS: BP 100/60; PULSE 60; RESP 18; O2SAT 97
[2024-07-31 08:30] VITALS: BP 106/62; PULSE 60; RESP 18; O2SAT 99
[2024-07-31] MEDS: OXYCODONE/ACETAMINOPHEN 5/325 TABLET 2 TAB PO (08:57)
== END 2024-07-31 09:09 | disposition home or self-care (01) ==
PROVIDERS: Emergency Medicine; Emergency Provider Emergency Medicine; PCP Family Medicine
DX: D57.00 Hb-SS disease with crisis, unspecified (principal)
CPT/HCPCS: 36415; 80053; 85007; 85025; 85045; 96361; 96365; 96375; 96376; 99284; J0134; J1171; J1885

== ENCOUNTER 2024-08-01 02:08 | Emergency (ER) | payer OTHER, SELFPAY ==
[2024-08-01 02:11] VITALS: BP 108/70; PULSE 72; RESP 14; TEMP 36.7; O2SAT 98; BMI 18.6
--- NOTE | 2024-08-01 02:22 | ED.GENADULT ---
HPI - General Adult General Chief complaint: Chest Pain Stated complaint: chest pain Time Seen by Provider: 08/01/24 02:09 Source: patient and EMS Mode of arrival: EMS History of Present Illness HPI narrative: 23-year-old male with history sickle cell disease hydroxy urea, penicillin, doxycycline presents by EMS from home for chest pain and sickle cell pain. Patient was here less than 24 hours ago for sickle cell pain. At that time patient was complaining of generalized back and joint pains, today patient complains that his pain is more in his chest. During yesterday's visit patient initially thought his pain can be controlled in the hospital, but then changed his mind requesting outpatient medications. States that throughout the day his pain was well-controlled, but he thinks that his dosing got away from him while he was sleeping and he woke up feeling pain in the middle of the night. Related Data Previous Rx's Medication Instructions Recorded hydroxyurea (sickle cell) 200 mg 200 mg PO DAILY #30 caps 07/01/23 capsule doxycycline hyclate 100 mg tablet 100 mg PO BID #14 tabs 07/28/24 penicillin V potassium 250 mg 250 mg PO BID #30 tabs 07/28/24 tablet naloxone 4 mg/actuation nasal 4 mg intranasal Q2M PRN opioid 07/31/24 spray (Narcan) overdose #2 ea ondansetron 4 mg disintegrating 4 mg PO Q8H PRN nausea and 07/31/24 tablet vomiting #20 tabs oxycodone-acetaminophen 5 mg-325 1 tab PO Q4-6H PRN pain #16 tabs 07/31/24 mg tablet (Percocet) Allergies Allergy/AdvReac Type Severity Reaction Status Date / Time No Known Drug Allergies Allergy Verified 09/17/23 15:17 Patient History Medical History Avascular necrosis of bone Contracture, left elbow Contracture, left hand CVA (cerebral vascular accident) Sickle cell anemia Surgical History History of shoulder surgery 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 Family History Father Cancer Sickle cell trait Mother Sickle cell trait Social History household members: significant other Smoking Status: Never smoker Smoking Status: Never smoker alcohol intake frequency: holidays/special occasions only Exam Initial Vital Signs Initial Vital Signs: Vital Signs Temperature 98.1 F 08/01/24 02:11 Pulse Rate 72 08/01/24 02:11 Respiratory Rate 14 08/01/24 02:11 Blood Pressure 108/70 08/01/24 02:11 Pulse Oximetry 98 08/01/24 02:11 Oxygen Delivery Method Room Air 08/01/24 02:11 Const: Awake, alert, no acute distress, nontoxic appearing Cardiac: regular rate, regular rhythm RESP: unlabored, clear bilaterally, no wheezing Skin: Warm, Dry, intact, no rashes Neuro: AO x3, CN II-XII grossly intact, left upper extremity contractures Course Orders Ordered: ED Orders 08/01/24 02:30 CBC Auto Diff [Complete Blood Count AUTO DIFF] Stat CMP [Comprehensive Metabolic Panel] Stat RETIC [Reticulocyte Count, Percent] Stat 08/01/24 04:09 Chest [XR chest 1V] Stat Discontinued Medications Hydromorphone HCl (Hydromorphone 1 Mg Inj) 1 mg IV NOW ONE Stop: 08/01/24 02:14 Last Admin: 08/01/24 02:40 Dose: 1 mg Documented By: TUNG Hydromorphone HCl (Hydromorphone 1 Mg Inj) 1 mg IV NOW ONE Stop: 08/01/24 04:10 Last Admin: 08/01/24 04:13 Dose: 1 mg Documented By: TUNG Hydromorphone HCl (Hydromorphone 0.5 Mg Inj) 0.5 mg IV NOW ONE Stop: 08/01/24 05:52 Last Admin: 08/01/24 05:59 Dose: 0.5 mg Acetaminophen (Ofirmev) 1,000 mg in 100 mls @ 400 mls/hr IV NOW ONE Stop: 08/01/24 02:26 Last Infusion: 08/01/24 03:02 Dose: Infused Documented By: Admin: 08/01/24 02:40 Dose: 400 mls/hr Documented By: TUNG Sodium Chloride (Normal Saline 0.9%) 1,000 mls @ 1,000 mls/hr IV BOLUS ONE Stop: 08/01/24 03:11 Last Infusion: 08/01/24 04:08 Dose: Infused Documented By: Admin: 08/01/24 02:40 Dose: 1,000 mls/hr Documented By: TUNG Sodium Chloride (Normal Saline 0.9%) 1,000 mls @ 1,000 mls/hr IV BOLUS ONE Stop: 08/01/24 05:08 Last Infusion: 08/01/24 05:30 Dose: Infused Documented By: Admin: 08/01/24 04:12 Dose: 1,000 mls/hr Documented By: TUNG Ketorolac Tromethamine (Ketorolac 30 Mg/Ml Vial) 15 mg IV NOW ONE Stop: 08/01/24 02:13 Last Admin: 08/01/24 02:40 Dose: 15 mg Documented By: TUNG Vital Signs Vital signs: Vital Signs - 8 hr 08/01/24 02:11 08/01/24 03:30 08/01/24 04:49 Temperature 98.1 F Pulse Rate 72 74 63 Respiratory Rate 14 14 14 Blood Pressure 108/70 102/70 107/77 Pulse Oximetry 98 98 98 Oxygen Delivery Method Room Air Room Air Room Air Medical Decision Making Lab Data 08/01/24 02:30 08/01/24 02:30 Labs: Lab Results 08/01/24 Range/Units 02:30 WBC 15.0 H (4.5-11.0) X10^3/uL RBC 3.67 L (4.5-5.9) X10^6/uL Hgb 9.1 L (13.5-17.5) g/dL Hct 27.5 L (41-53) % MCV 75.1 L (80-100) fL MCH 24.7 L (26-34) PG MCHC 32.9 (30-36) % RDW 18.3 H (11.6-14.8) % Plt Count 254 (150-400) X10^3/uL Neut % (Auto) 38.0 L (50-75) % Lymph % (Auto) 54.0 H (25-40) % [place] % (Auto) 5.7 (3-14) % Eos % (Auto) 1.1 L (2-4) % Baso % (Auto) 1.2 (0-2) % Neut # (Auto) 5700 (0860-9887) /uL Lymph # (Auto) 8100 H (8840-2104) /uL [place] # (Auto) 900 (0-900) /uL Eos # (Auto) 200 (0-450) /uL Baso # (Auto) 200 H (0-100) /uL Percent Retic 6.9 H (0.9-2.6) % Sodium 138 (137-145) mmol/L Potassium 3.4 (3.4-5.1) mmol/L Chloride 107 (98-107) mmol/L Carbon Dioxide 25 (22-32) mmol/L BUN 5 L (9-20) mg/dL Creatinine 0.56 L (0.66-1.25) mg/dL Estimated GFR > 60 (>60) mL/min BUN/Creatinine Ratio 8.9 (6-22) Glucose 97 (70-100) mg/dL Calcium 8.3 L (8.4-10.2) mg/dL Total Bilirubin 2.4 H (0.2-1.3) mg/dL AST 41 (17-59) IU/L ALT 18 (<50) IU/L Alkaline Phosphatase 88 (38-126) U/L Total Protein 6.9 (6.3-8.2) g/dL Albumin 3.8 (3.5-5.0) g/dL Globulin 3.1 (1.7-4.1) g/dL Albumin/Globulin Ratio 1.2 (1.0-2.8) Imaging Data Chest x-ray: Radiologist's Impression: Preliminary review: No acute infiltrate MDM Narrative Medical decision making narrative: Patient was sickle cell disease presenting with persistent sickle cell pain. He states that after his discharge from the hospital yesterday his pain was initially well-controlled, but came back while he was sleeping, possibly because he fell asleep and did not take his scheduled medication. He was complaining primarily of chest pain today. Hemodynamically stable. Laboratory work is unchanged significantly from yesterday. Chest x-ray shows no acute infiltrate. Patient given 2 L of normal saline, several doses of narcotic pain medications. Patient stated that he felt better enough that he would like to go home. He says that he has enough pain medications at home to last him and he would prefer not to be admitted at this time. Discharge Plan Departure Patient Disposition: Home Clinical Impression: Sickle cell disease with crisis Activity Restrictions/Additional Instructions: Continue to take your pain meds as prescribed. Follow up with your primary care doctor. Prescriptions: No Action penicillin V potassium 250 mg tablet 250 mg PO BID Qty: 30 0RF doxycycline hyclate 100 mg Tablet 100 mg PO BID Qty: 14 0RF ondansetron 4 mg tablet,disintegrating 4 mg PO Q8H PRN (Reason: nausea and vomiting) Qty: 20 0RF oxycodone-acetaminophen [Percocet] 5-325 mg tablet 1 tab PO Q4-6H PRN (Reason: pain) Qty: 16 0RF naloxone [Narcan] 4 mg/actuation spray,non-aerosol 4 mg intranasal Q2M PRN (Reason: opioid overdose) Qty: 2 0RF Rx Instructions: spray 1 dose into ONE nostril; alternate nostrils w each dose until help arrives hydroxyurea (sickle cell) 200 mg capsule 200 mg PO DAILY Qty: 30 0RF Referrals: Evens Valdez MD [Primary Care Provider] - Stand Alone Forms: Patient Portal/API/Survey
[2024-08-01] MEDS: KETOROLAC 30 MG/ML VIAL 15 MG IV (02:40)
[2024-08-01] MEDS: HYDROMORPHONE 1 MG INJ IV ×2 (02:40→04:13)
[2024-08-01] MEDS: SODIUM CHLORIDE 0.9% 1,000 ML 1000 ML IV ×2 (02:40→04:12)
[2024-08-01] MEDS: ACETAMINOPHEN IV 1,000 MG/100 ML VIAL 400 MG IV (02:40)
[2024-08-01 02:41] LABS: Add Manual Diff / Slide Review NO; Basophils Absolute Auto 200 /uL (0-100); Basophils Percent Auto 1.2 % (0-2); Eosinophils Absolute Auto 200 /uL (0-450); Eosinophils Percent Auto 1.1 % (2-4); Hematocrit 27.5 % (41-53); Hemoglobin 9.1 g/dL (13.5-17.5); Lymphocytes Absolute Auto 8100 /uL (1100-4500); Mean Corpuscular HGB Conc 32.9 % (30-36); Mean Corpuscular Hemoglobin 24.7 PG (26-34); Mean Corpuscular Volume 75.1 fL (80-100); Monocytes Absolute Auto 900 /uL (0-900); Monocytes Percent Auto 5.7 % (3-14); Neutrophils Absolute Auto 5700 /uL (1500-7000); Platelet Count 254 X10^3/uL (150-400); Red Blood Cell Count 3.67 X10^6/uL (4.5-5.9); Red Cell Distribution Width 18.3 % (11.6-14.8)
[2024-08-01 02:48] LABS: Alanine Aminotransferase 18 IU/L (<50); Albumin 3.8 g/dL (3.5-5.0); Albumin Globulin Ratio 1.2 (1.0-2.8); Alkaline Phosphatase 88 U/L (38-126); Aspartate Aminotransferase 41 IU/L (17-59); BUN Creatinine Ratio 8.9 (6-22); Bilirubin Total 2.4 mg/dL (0.2-1.3); Blood Urea Nitrogen 5 mg/dL (9-20); Calcium 8.3 mg/dL (8.4-10.2); Carbon Dioxide 25 mmol/L (22-32); Chloride 107 mmol/L (98-107); Estimated Glomerular Filt Rate > 60 mL/min (>60); Globulin 3.1 g/dL (1.7-4.1); Glucose 97 mg/dL (70-100); HEMOLYSIS 15 (0-50); Potassium 3.4 mmol/L (3.4-5.1); Sodium 138 mmol/L (137-145); Total Protein 6.9 g/dL (6.3-8.2)
[2024-08-01 03:18] LABS: Reticulocyte Count, Percent 6.9 % (0.9-2.6)
[2024-08-01 03:30] VITALS: BP 102/70; PULSE 74; RESP 14; O2SAT 98
--- NOTE | 2024-08-01 04:09 | DI.RAD.S_ITS ---
PROCEDURE: XR CHEST 1V INDICATIONS: chest pain, SS disease TECHNIQUE: One view of the chest was acquired. COMPARISON: [facility], CR, XR CHEST 1V, 07/27/2024, 7:12. [facility], CR, XR CHEST 1V, 06/18/2024, 18:54. FINDINGS: Surgical changes and devices: None. Lungs and pleura: No dense airspace disease or pleural effusions. Mediastinum: Normal heart size, unchanged Bones and chest wall: Unremarkable IMPRESSION: No acute radiographic abnormality on this single view study. Agree with preliminary report. Dictated by: Mathew Pichardo M.D. on 08/01/2024 at 7:36 Approved by: Mathew Pichardo M.D. on 08/01/2024 at 7:36
[2024-08-01 04:49] VITALS: BP 107/77; PULSE 63; RESP 14; O2SAT 98
[2024-08-01] MEDS: HYDROMORPHONE 0.5 MG INJ IV (05:59)
[2024-08-01 06:08] VITALS: BP 101/69; PULSE 64; RESP 14; O2SAT 97
== END 2024-08-01 06:08 | disposition home or self-care (01) ==
PROVIDERS: Emergency Provider Emergency Medicine; PCP Family Medicine
DX: D57.00 Hb-SS disease with crisis, unspecified (principal)
CPT/HCPCS: 71045; 80053; 85025; 85045; J0134; J1171; J1885

== ENCOUNTER 2024-08-01 12:18 | Emergency (ER) | payer OTHER, SELFPAY ==
[2024-08-01] VITALS (8 sets, daily range): BP systolic 116–150; BP diastolic 64–82; PULSE 66–79; RESP 16; TEMP 36.9; O2SAT 96–99; BMI 20.6
--- NOTE | 2024-08-01 12:49 | ED_ITS ---
HPI - Chest Pain General Chief Complaint: Chest Pain Stated Complaint: sent by PCP chest px Time Seen by Provider: 08/01/24 12:28 Source: patient Mode of arrival: Ambulatory History of Present Illness HPI narrative: Patient was a 23-year-old male. Has a history of sickle cell disease. Is on hydroxyurea, penicillin and folic acid. He does not have a primary doctor here in the area. These medications have been prescribed by multiple emergency departments. He has been here in this emergency department several times over the past couple days for sickle cell pain crisis. Has had workups. He was given pain medicine and subsequently discharged home. He had an appointment with a new primary care doctor earlier today and was advised to come back to the emergency department for further evaluation. During his last visit which was less than 12 hours ago he was a pain medication and fluids. He stated that he was feeling better however he informed me today that actually he was not feeling better. He stated that he had a new job and had to go to some training and he did not want to miss that job so he said that he was feeling better. He denies fevers. No cough. No blood in his stool. No blood in his urine. Describes pain in his chest. No problems breathing. Has a history of asthma. Has had a splenectomy and a cholecystectomy. He had a stroke when he was 1-year-old and has deficits to his left arm. Also has had avascular necrosis/spacer? to his right hip. Related Data Previous Rx's Medication Instructions Recorded hydroxyurea (sickle cell) 200 mg 200 mg PO DAILY #30 caps 07/01/23 capsule doxycycline hyclate 100 mg tablet 100 mg PO BID #14 tabs 07/28/24 penicillin V potassium 250 mg 250 mg PO BID #30 tabs 07/28/24 tablet naloxone 4 mg/actuation nasal 4 mg intranasal Q2M PRN opioid 07/31/24 spray (Narcan) overdose #2 ea ondansetron 4 mg disintegrating 4 mg PO Q8H PRN nausea and 07/31/24 tablet vomiting #20 tabs oxycodone-acetaminophen 5 mg-325 1 tab PO Q4-6H PRN pain #16 tabs 07/31/24 mg tablet (Percocet) Allergies Allergy/AdvReac Type Severity Reaction Status Date / Time No Known Drug Allergies Allergy Verified 08/01/24 11:25 Review of Systems Review of Systems ROS Unobtainable: All systems reviewed & are unremarkable except as noted in HPI and below Patient History Medical History Avascular necrosis of bone Contracture, left elbow Contracture, left hand CVA (cerebral vascular accident) Sickle cell anemia Surgical History History of shoulder surgery 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 Family History Father Cancer Sickle cell trait Mother Sickle cell trait Social History household members: significant other Smoking Status: Never smoker Smoking Status: Never smoker alcohol intake frequency: holidays/special occasions only Exam Initial Vital Signs Initial Vital Signs: Vital Signs Temperature 98.5 F 08/01/24 12:18 Pulse Rate 79 08/01/24 12:18 Respiratory Rate 16 08/01/24 12:18 Blood Pressure 117/80 08/01/24 12:18 Pulse Oximetry 99 08/01/24 12:18 Oxygen Delivery Method Room Air 08/01/24 12:18 Const General: cooperative, comfortable and No ill appearing HENIN Head: normal to inspection and normocephalic Resp Effort & Inspection: normal respiratory effort Auscultation: clear to auscultation bilaterally Cardio Rate: regular rate Rhythm: regular rhythm GI Inspection: normal to inspection Skin General: no rashes or lesions noted Neuro General: patient alert, patient awake, patient oriented x3 and moves all extremities Course Orders Ordered: ED Orders 08/01/24 13:43 Complete Blood Count AUTO DIFF Stat Comprehensive Metabolic Panel Stat Lactate (Lactic Acid) Stat Lipase Stat RETIC [Reticulocyte Count, Percent] Stat Sodium Chloride (Normal Saline 0.9%) 1,000 mls @ 150 mls/hr IV CONT JONATHAN Last Admin: 08/01/24 13:14 Dose: 150 mls/hr Documented By: LILIAM Discontinued Medications Hydromorphone HCl (Hydromorphone 0.5 Mg Inj) 0.5 mg IV NOW ONE Stop: 08/01/24 13:02 Last Admin: 08/01/24 13:13 Dose: 0.5 mg Documented By: LILIAM Hydromorphone HCl (Hydromorphone 1 Mg Inj) 1 mg IV NOW ONE Stop: 08/01/24 14:28 Last Admin: 08/01/24 14:32 Dose: 1 mg Documented By: LILIAM Vital Signs Vital signs: Vital Signs - 8 hr 08/01/24 12:18 08/01/24 12:24 08/01/24 12:30 Temperature 98.5 F Pulse Rate 79 79 66 Respiratory Rate 16 Blood Pressure 117/80 117/69 116/64 Pulse Oximetry 99 98 99 Oxygen Delivery Method Room Air Room Air Room Air 08/01/24 13:00 08/01/24 13:30 08/01/24 14:00 Temperature Pulse Rate 73 73 70 Respiratory Rate Blood Pressure 121/77 123/70 123/70 Pulse Oximetry 97 97 96 Oxygen Delivery Method Room Air Room Air Room Air 08/01/24 14:30 Temperature Pulse Rate 67 Respiratory Rate Blood Pressure 123/76 Pulse Oximetry 96 Oxygen Delivery Method MDM - Chest Pain Medical Records Data Attestation: I reviewed the patient's medical records. Lab Data 08/01/24 13:43 08/01/24 13:43 Labs: Lab Results 08/01/24 Range/Units 13:43 WBC 14.1 H (4.5-11.0) X10^3/uL RBC 3.59 L (4.5-5.9) X10^6/uL Hgb 8.9 L (13.5-17.5) g/dL Hct 26.9 L (41-53) % MCV 74.9 L (80-100) fL MCH 24.8 L (26-34) PG MCHC 33.1 (30-36) % RDW 19.2 H (11.6-14.8) % Plt Count 272 (150-400) X10^3/uL Neut % (Auto) 49.1 L (50-75) % Lymph % (Auto) 38.9 (25-40) % [place] % (Auto) 10.7 (3-14) % Eos % (Auto) 0.7 L (2-4) % Baso % (Auto) 0.6 (0-2) % Neut # (Auto) 6900 (6874-9706) /uL Lymph # (Auto) 5500 H (5765-2378) /uL [place] # (Auto) 1500 H (0-900) /uL Eos # (Auto) 100 (0-450) /uL Baso # (Auto) 100 (0-100) /uL Percent Retic 7.7 H (0.9-2.6) % Sodium 138 (137-145) mmol/L Potassium 3.2 L (3.4-5.1) mmol/L Chloride 106 (98-107) mmol/L Carbon Dioxide 22 (22-32) mmol/L BUN 3 L (9-20) mg/dL Creatinine 0.59 L (0.66-1.25) mg/dL Estimated GFR > 60 (>60) mL/min BUN/Creatinine Ratio 5.1 L (6-22) Glucose 81 (70-100) mg/dL Lactate 0.9 (0.7-2.1) mmol/L Calcium 8.4 (8.4-10.2) mg/dL Total Bilirubin 2.7 H (0.2-1.3) mg/dL AST 40 (17-59) IU/L ALT 18 (<50) IU/L Alkaline Phosphatase 93 (38-126) U/L Total Protein 6.9 (6.3-8.2) g/dL Albumin 3.9 (3.5-5.0) g/dL Globulin 3.0 (1.7-4.1) g/dL Albumin/Globulin Ratio 1.3 (1.0-2.8) Lipase 56 (23-300) U/L MDM Narrative Medical decision making narrative: Patient was afebrile. Had a chest x-ray earlier today which did not show any infiltrates. Is at his baseline anemia. Is afebrile. Has a baseline leukocytosis. Patient was pain medication at home. Did discuss the case with Dr. Belcher hospitalist on-call. We discussed admission to the hospital for pain control versus discharge home. After pain medication here in the ER he states he feels like he can control his discomfort at home. He was given return precautions and follow-up instructions. He does have a primary care doctor that he can follow-up with. He expressed understanding and agreement plan. Discharge Plan Departure Patient Disposition: Home Clinical Impression: Sickle cell disease with crisis Instructions: Sickle Cell Crisis Activity Restrictions/Additional Instructions: Continue to take all of your medications as directed. Sure that you were increasing your fluid intake. Contact your primary care doctor for follow-up. Return to the emergency department for new or worsening symptoms. Prescriptions: No Action penicillin V potassium 250 mg tablet 250 mg PO BID Qty: 30 0RF doxycycline hyclate 100 mg Tablet 100 mg PO BID Qty: 14 0RF ondansetron 4 mg tablet,disintegrating 4 mg PO Q8H PRN (Reason: nausea and vomiting) Qty: 20 0RF oxycodone-acetaminophen [Percocet] 5-325 mg tablet 1 tab PO Q4-6H PRN (Reason: pain) Qty: 16 0RF naloxone [Narcan] 4 mg/actuation spray,non-aerosol 4 mg intranasal Q2M PRN (Reason: opioid overdose) Qty: 2 0RF Rx Instructions: spray 1 dose into ONE nostril; alternate nostrils w each dose until help arrives hydroxyurea (sickle cell) 200 mg capsule 200 mg PO DAILY Qty: 30 0RF Referrals: Jen Albarran, [employer] [Primary Care Provider] - Stand Alone Forms: Patient Portal/API/Survey
[2024-08-01] MEDS: HYDROMORPHONE 0.5 MG INJ IV (13:13)
[2024-08-01] MEDS: SODIUM CHLORIDE 0.9% 1,000 ML 150 ML IV (13:14)
[2024-08-01 13:58] LABS: Add Manual Diff / Slide Review NO; Basophils Absolute Auto 100 /uL (0-100); Basophils Percent Auto 0.6 % (0-2); Eosinophils Absolute Auto 100 /uL (0-450); Eosinophils Percent Auto 0.7 % (2-4); Hematocrit 26.9 % (41-53); Hemoglobin 8.9 g/dL (13.5-17.5); Lymphocytes Absolute Auto 5500 /uL (1100-4500); Lymphocytes Percent Auto 38.9 % (25-40); Mean Corpuscular HGB Conc 33.1 % (30-36); Mean Corpuscular Hemoglobin 24.8 PG (26-34); Mean Corpuscular Volume 74.9 fL (80-100); Monocytes Absolute Auto 1500 /uL (0-900); Monocytes Percent Auto 10.7 % (3-14); Neutrophils Absolute Auto 6900 /uL (1500-7000); Neutrophils Percent Auto 49.1 % (50-75); Platelet Count 272 X10^3/uL (150-400); Red Blood Cell Count 3.59 X10^6/uL (4.5-5.9); Red Cell Distribution Width 19.2 % (11.6-14.8); White Blood Cell Count 14.1 X10^3/uL (4.5-11.0)
[2024-08-01 14:01] LABS: Reticulocyte Count, Percent 7.7 % (0.9-2.6)
[2024-08-01 14:19] LABS: Lactate (Lactic Acid) 0.9 mmol/L (0.7-2.1)
[2024-08-01 14:20] LABS: Alanine Aminotransferase 18 IU/L (<50); Albumin 3.9 g/dL (3.5-5.0); Albumin Globulin Ratio 1.3 (1.0-2.8); Alkaline Phosphatase 93 U/L (38-126); Aspartate Aminotransferase 40 IU/L (17-59); BUN Creatinine Ratio 5.1 (6-22); Bilirubin Total 2.7 mg/dL (0.2-1.3); Blood Urea Nitrogen 3 mg/dL (9-20); Calcium 8.4 mg/dL (8.4-10.2); Carbon Dioxide 22 mmol/L (22-32); Chloride 106 mmol/L (98-107); Estimated Glomerular Filt Rate > 60 mL/min (>60); Glucose 81 mg/dL (70-100); HEMOLYSIS < 15 (0-50); Lipase 56 U/L (23-300); Potassium 3.2 mmol/L (3.4-5.1); Sodium 138 mmol/L (137-145); Total Protein 6.9 g/dL (6.3-8.2)
[2024-08-01] MEDS: HYDROMORPHONE 1 MG INJ IV (14:32)
--- NOTE | 2024-08-01 16:10 | PC.NURSE ---
Pressure across chest. Pt states is somewhat relived by pain medicine. Pt reports pain radiates to back as well. Respirations regular and unlabored. GCS 15. No edema noted.
== END 2024-08-01 16:14 | disposition home or self-care (01) ==
PROVIDERS: Emergency Provider Emergency Medicine; PCP Nurse Practitioner Family
DX: D57.00 Hb-SS disease with crisis, unspecified (principal)
CPT/HCPCS: 71045; 80053; 83605; 83690; 85025; 85045; 96361; 96365; 96374; 96375; 96376; 99283; 99284; J0134; J1171; J1885

== ENCOUNTER 2024-08-03 11:55 | Emergency (ER) | payer OTHER, SELFPAY ==
[2024-08-03] VITALS (10 sets, daily range): BP systolic 122–136; BP diastolic 69–85; PULSE 79–95; RESP 16–25; TEMP 36.7; O2SAT 97–100
--- NOTE | 2024-08-03 12:05 | EKG_ITS ---
[address] [address] Test Date: 2024-08-03 Pat Name: Lucretia Keller Department: Room: Gender: Male [employer] Tester: MURIEL : 2000 Requested By: Order Number: [id number] Reading MD: Arslan Belcher Measurements Intervals [place] Rate: 82 P: 47 NE: 228 QRS: 17 QRSD: 90 T: 21 QT: 388 QTc: 453 Interpretive Statements Sinus rhythm with 1st degree AV block Electronically Signed On 08-05-2024 11:12:27 PST by Arslan Belcher
--- NOTE | 2024-08-03 12:30 | ED.CHESTPAIN ---
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 Now having 3 days duration of dry cough, pain to bilateral anterior chest this morning, radiating to the back. He does not recall history of acute chest syndrome from sickle disease. No history of pneumonias recalled. Not taking current antibiotics. Denies history of wheezing or inhaler use. No history of clots to legs or lungs. Related Data Previous Rx's Medication Instructions Recorded hydroxyurea (sickle cell) 200 mg 200 mg PO DAILY #30 caps 07/01/23 capsule doxycycline hyclate 100 mg tablet 100 mg PO BID #14 tabs 07/28/24 penicillin V potassium 250 mg 250 mg PO BID #30 tabs 07/28/24 tablet naloxone 4 mg/actuation nasal 4 mg intranasal Q2M PRN opioid 07/31/24 spray (Narcan) overdose #2 ea ondansetron 4 mg disintegrating 4 mg PO Q8H PRN nausea and 07/31/24 tablet vomiting #20 tabs oxycodone-acetaminophen 5 mg-325 1 tab PO Q4-6H PRN pain #16 tabs 07/31/24 mg tablet (Percocet) albuterol sulfate 90 mcg/actuation 2 puff inhalation Q6H PRN 08/03/24 aerosol inhaler shortness of breath or wheezing #8.5 grams amoxicillin 875 mg-potassium 1 tab PO BID #20 tabs 08/03/24 clavulanate 125 mg tablet doxycycline hyclate 100 mg tablet 100 mg PO BID #20 tabs 08/03/24 hydrocodone 5 mg-acetaminophen 325 1 tab PO Q6H PRN pain #14 tabs 08/03/24 mg tablet Allergies Allergy/AdvReac Type Severity Reaction Status Date / Time No Known Drug Allergies Allergy Verified 08/01/24 11:25 Patient History Medical History Avascular necrosis of bone Contracture, left elbow Contracture, left hand CVA (cerebral vascular accident) Sickle cell anemia Surgical History History of shoulder surgery 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 Family History Father Cancer Sickle cell trait Mother Sickle cell trait Social History household members: significant other Smoking Status: Never smoker Smoking Status: Never smoker alcohol intake frequency: holidays/special occasions only Exam Narrative Exam Narrative: GENERAL: Well-developed patient, in mild distress. HEAD: Atraumatic. Normocephalic. EYES: Pupils equal round and reactive. Extraocular motions intact. No scleral icterus. No injection or drainage. ENT: Nose without bleeding, purulent drainage. Throat without erythema, tonsillar hypertrophy or exudate. Airway patent. NECK: Trachea midline. Non tender CARDIOVASCULAR: Regular rate and rhythm without murmurs, gallops, or rubs. RESPIRATORY: Clear to auscultation. Breath sounds equal bilaterally. No wheezes, rales, or rhonchi. GASTROINTESTINAL: Abdomen soft, non-tender, nondistended. EXTREMITIES: No edema or joint tenderness. Left upper extremity flexion contracture with atrophy BACK: Nontender without deformity or crepitance. No flank tenderness. NEURO: AOx3. Left arm flexion contracture with some atrophy from old remote stroke. Subjective weakness left leg from old stroke, no obvious atrophy, has 5/5 motor function, apparently can ambulate without assist device with his left leg, no bracing. SKIN: No rash or erythema of visible areas Initial Vital Signs Initial Vital Signs: Vital Signs Temperature 98.1 F 08/03/24 12:00 Pulse Rate 90 08/03/24 12:00 Respiratory Rate 16 08/03/24 12:00 Blood Pressure 122/69 08/03/24 12:00 Pulse Oximetry 98 08/03/24 12:00 Oxygen Delivery Method Room Air 08/03/24 12:00 Course Orders Ordered: ED Orders 08/03/24 12:36 Respiratory Panel (Film Array) Stat 08/03/24 12:37 Complete Blood Count AUTO DIFF Stat Comprehensive Metabolic Panel Stat Lipase Stat RETIC [Reticulocyte Count, Percent] Stat Troponin & CK Cardiac Panel Stat 08/03/24 12:45 XR chest 1V Stat EKG-12 Lead Stat Discontinued Medications Hydrocodone Bitart/Acetaminophen (Hydrocodone/Acet 5/325 Tablet) 1 tab PO NOW ONE Stop: 08/03/24 14:56 Last Admin: 08/03/24 15:11 Dose: 1 tab Documented By: BS Albuterol (Albuterol 2.5 Mg/3 Ml Neb (Adult)) 2.5 mg INH NOW ONE Stop: 08/03/24 15:03 Last Admin: 08/03/24 15:11 Dose: 2.5 mg Documented By: BS Amoxicillin/Clavulanate Potassium (Amoxicillin/Clav 875/125 Mg) 1 tab PO NOW ONE Stop: 08/03/24 15:38 Last Admin: 08/03/24 15:54 Dose: 1 tab Documented By: BS Doxycycline Hyclate (Doxycycline Hyclate 100 Mg Tablet) 100 mg PO NOW ONE Stop: 08/03/24 15:38 Last Admin: 08/03/24 15:54 Dose: 100 mg Documented By: BS Sodium Chloride (Normal Saline 0.9%) 1,000 mls @ 1,000 mls/hr IV BOLUS ONE Stop: 08/03/24 13:43 Last Infusion: 08/03/24 13:51 Dose: Infused Documented By: Admin: 08/03/24 12:53 Dose: 1,000 mls/hr Documented By: BS Morphine Sulfate (Morphine 4 Mg/Ml Inj) 4 mg IV NOW ONE Stop: 08/03/24 12:45 Last Admin: 08/03/24 12:53 Dose: 4 mg Documented By: BS Morphine Sulfate (Morphine 4 Mg/Ml Inj) 4 mg IV NOW ONE Stop: 08/03/24 14:18 Last Admin: 08/03/24 14:33 Dose: 4 mg Documented By: JIMMY Ondansetron HCl (Ondansetron 4 Mg/2 Ml Inj) 4 mg IV NOW ONE Stop: 08/03/24 12:45 Last Admin: 08/03/24 12:53 Dose: 4 mg Documented By: BS Vital Signs Vital signs: Vital Signs - 8 hr 08/03/24 12:59 08/03/24 12:59 08/03/24 13:00 Pulse Rate 80 Respiratory Rate 25 H Blood Pressure 125/76 128/77 Pulse Oximetry 97 Oxygen Delivery Method 08/03/24 13:00 08/03/24 13:30 08/03/24 13:30 Pulse Rate 82 79 Respiratory Rate 24 22 Blood Pressure 125/71 Pulse Oximetry 97 98 Oxygen Delivery Method Room Air 08/03/24 14:33 08/03/24 14:33 08/03/24 15:00 Pulse Rate 85 80 Respiratory Rate 22 24 Blood Pressure 125/77 Pulse Oximetry 98 100 Oxygen Delivery Method 08/03/24 15:00 08/03/24 15:11 08/03/24 15:30 Pulse Rate 84 94 H Respiratory Rate 20 20 Blood Pressure 136/85 Pulse Oximetry 98 99 Oxygen Delivery Method Room Air 08/03/24 15:30 08/03/24 16:00 08/03/24 16:00 Pulse Rate 85 Respiratory Rate 19 Blood Pressure 136/82 128/75 Pulse Oximetry 98 Oxygen Delivery Method MDM - Chest Pain Lab Data Attestation: I reviewed the patient's lab results. Lab results narrative: White blood cell count 60822, hemoglobin 9.6, platelets [id number]. Basic metabolic panel unremarkable. Potassium 3.6 normal. Glucose 86. Total bilirubin 2.5 noted, other liver functions unremarkable. Lipase normal. 08/03/24 12:37 08/03/24 12:37 Labs: Lab Results 08/03/24 08/03/24 Range/Units 12:36 12:37 WBC 15.1 H (4.5-11.0) X10^3/uL RBC 3.92 L (4.5-5.9) X10^6/uL Hgb 9.6 L (13.5-17.5) g/dL Hct 29.8 L (41-53) % MCV 76.1 L (80-100) fL MCH 24.4 L (26-34) PG MCHC 32.0 (30-36) % RDW 19.6 H (11.6-14.8) % Plt Count 338 (150-400) X10^3/uL Neut % (Auto) 63.6 (50-75) % Lymph % (Auto) 28.3 (25-40) % Sebastian % (Auto) 6.7 (3-14) % Eos % (Auto) 0.9 L (2-4) % Baso % (Auto) 0.5 (0-2) % Neut # (Auto) 9600 H (3217-9543) /uL Lymph # (Auto) 4300 (0974-6400) /uL Sebastian # (Auto) 1000 H (0-900) /uL Eos # (Auto) 100 (0-450) /uL Baso # (Auto) 100 (0-100) /uL Total Counted 100 Seg Neutrophils % 77.0 H (38-70) % Lymphocytes % (Manual) 15.0 L (25-45) % Atypical Lymphs % 2.0 H ( - 0) % Monocytes % (Manual) 6.0 (2-11) % Neutrophils # (Manual) 07829 H (1392-4357) /uL Nucleated RBCs 3 H ( - 0) #/Diff RBC Morphology See below Anisocytosis 1+ H Sickle Cells 1+ H Percent Retic 9.6 H (0.9-2.6) % Sodium 140 (137-145) mmol/L Potassium 3.6 (3.4-5.1) mmol/L Chloride 107 (98-107) mmol/L Carbon Dioxide 25 (22-32) mmol/L BUN 3 L (9-20) mg/dL Creatinine 0.61 L (0.66-1.25) mg/dL Estimated GFR > 60 (>60) mL/min BUN/Creatinine Ratio 4.9 L (6-22) Glucose 86 (70-100) mg/dL Calcium 8.8 (8.4-10.2) mg/dL Total Bilirubin 2.5 H (0.2-1.3) mg/dL AST 46 (17-59) IU/L ALT 19 (<50) IU/L Alkaline Phosphatase 100 (38-126) U/L Total Creatine Kinase 98 (55-170) U/L Troponin I 0.014 (0.01-0.034) ng/mL Total Protein 7.6 (6.3-8.2) g/dL Albumin 4.2 (3.5-5.0) g/dL Globulin 3.4 (1.7-4.1) g/dL Albumin/Globulin Ratio 1.2 (1.0-2.8) Lipase 43 (23-300) U/L Chlamy pneumoniae PCR Not detected (Not Detect) Adenovirus (PCR) Not detected (Not Detect) B. pertussis DNA (PCR) Not detected (Not Detect) B.parapertussis DNA PCR Not detected (Not Detecte) Coronavirus OC43 (PCR) Not detected (Not Detect) Coronavirus HKU1 (PCR) Not detected (Not Detect) Coronavirus 229E (PCR) Not detected (Not Detect) SARS-CoV-2 (PCR) Not detected (Not Detecte) Coronavirus NL63 (PCR) Not detected (Not Detect) Human Metapneumovir PCR Not detected (Not Detect) Influenza Type A (PCR) Not detected (Not Detect) Influenza Type B (PCR) Not detected (Not Detect) M. pneumoniae (PCR) Not detected (Not Detect) Parainfluenza 1 (PCR) Not detected (Not Detect) Parainfluenza 2 (PCR) Not detected (Not Detect) Parainfluenza 3 (PCR) Not detected (Not Detect) Parainfluenza 4 (PCR) Not detected (Not Detect) RSV (PCR) Not detected (Not Detect) Entero/Rhino (PCR) Not detected (Not Detect) ECG Data Attestation: I personally reviewed and interpreted this ECG as follows: Interpretation: 1205, normal sinus rhythm with rate of 82, no obvious ST segment elevation or depression changes. T-wave inversion lead 3 but upright in other contiguous inferior leads 2 and F. SD 228 first-degree AV block noted, QRS 90, QTC 453. MDM Narrative Medical decision making narrative: 23-year-old male with history of sickle disease, seen here last week for occlusive crisis pain in the extremities, now with 3 days cough, anterior chest pain today radiating to the back. Screening EKG unremarkable. Labs pending including reticulocyte count, chest x-ray has been requested, as well as respiratory panel. IV fluid bolus, IV morphine/Zofran. DDx consider acute chest syndrome sickle crisis, pneumonia, influenza, COVID, other viral illness, atypical pneumonia, pneumothorax, pulmonary embolus, chest wall discomfort, other. Chest x-ray shows no acute changes, see radiology report. Reticulocyte count 9% noted. Case discussed with hospitalist Dr Petersen, who seemed to be better with patient as hospitalist at would be when he was recently admitted, recalls his Retic count 12% those times, advises further pain control measures for now, if respiratory panel results are negative consider antibiotics, history of post splenectomy noted. Patient seemed amenable to this plan, requested breathing treatment, no wheezing, we will give albuterol, consider albuterol/spacer inhaler for discharge. Patient without oxygen requirement, pain controlled after analgesics, given oral antibiotics Amoxicillin and Doxycycline, prescriptions snet for further antibiotic oral courses. Rx for hydrocodone/APAP. Rx for Albuterol inhaler. DC home. Return precautions discussed Discharge Plan Departure Patient Disposition: Home Clinical Impression: History of sickle cell disease, History of splenectomy, Atypical pneumonia Activity Restrictions/Additional Instructions: Recent cough symptoms with chest and back discomfort. Labs sent. Chest x-ray without obvious infiltrate. Respiratory panel was sent and was negative for all pathogens tested. History of splenectomy noted. Increased risk of bacterial infection. Empiric antibiotics initiated with Augmentin and doxycycline, 1st oral doses in the emergency department, further prescriptions for these antibiotics sent to your pharmacy. Case was discussed with hospitalist Dr. Petersen who was familiar with her case from a prior admission at [facility], who felt that you can be discharged on oral antibiotics and pain control medications with close follow up with your regular doctor this next week. Follow up with your regular provider early this week. Return to this/nearest emergency department for any change worsening symptoms or any concerns prior Prescriptions: New doxycycline hyclate 100 mg tablet 100 mg PO BID Qty: 20 0RF amoxicillin-pot clavulanate 875-125 mg tablet 1 tab PO BID Qty: 20 0RF albuterol sulfate 90 mcg/actuation HFA aerosol inhaler 2 puff inhalation Q6H PRN (Reason: shortness of breath or wheezing) Qty: 8.5 0RF hydrocodone-acetaminophen 5-325 mg tablet 1 tab PO Q6H PRN (Reason: pain) Qty: 14 0RF No Action penicillin V potassium 250 mg tablet 250 mg PO BID Qty: 30 0RF doxycycline hyclate 100 mg Tablet 100 mg PO BID Qty: 14 0RF ondansetron 4 mg tablet,disintegrating 4 mg PO Q8H PRN (Reason: nausea and vomiting) Qty: 20 0RF oxycodone-acetaminophen [Percocet] 5-325 mg tablet 1 tab PO Q4-6H PRN (Reason: pain) Qty: 16 0RF naloxone [Narcan] 4 mg/actuation spray,non-aerosol 4 mg intranasal Q2M PRN (Reason: opioid overdose) Qty: 2 0RF Rx Instructions: spray 1 dose into ONE nostril; alternate nostrils w each dose until help arrives hydroxyurea (sickle cell) 200 mg capsule 200 mg PO DAILY Qty: 30 0RF Referrals: Jen Albarran FNP-BC [Primary Care Provider] - Stand Alone Forms: Patient Portal/API/Survey
--- NOTE | 2024-08-03 12:45 | DI.RAD.S_ITS ---
PROCEDURE: XR CHEST 1V INDICATIONS: chest pain TECHNIQUE: One view of the chest was acquired. COMPARISON: Located Within [facility], CR, XR CHEST 1V, 06/18/2024, 18:54. Located Within [facility], CR, XR CHEST 1V, 07/27/2024, 7:12. Located Within [facility], CR, XR CHEST 1V, 08/01/2024, 4:12. FINDINGS: Surgical changes and devices: None. Lungs and pleura: An incomplete inspiratory result is noted, causing a crowded appearance to the lung markings. No focal infiltrates are seen. No pneumothorax or significant pleural effusions are seen. Mediastinum: Mediastinal contours appear normal. Heart size is normal. Bones and chest wall: No suspicious bony lesions. Areas of bony sclerosis can be seen. There is chronic deformity left humeral head. Overlying soft tissues appear unremarkable. IMPRESSION: Low lung volumes, without focal infiltrates. Areas of bony sclerosis can be seen and there is chronic deformity of the left humeral head, which is consistent with the known history of underlying sickle cell disease. Dictated by: Александр Chandler M.D. on 08/03/2024 at 12:05 Approved by: Александр Chandler M.D. on 08/03/2024 at 12:07
[2024-08-03] MEDS: SODIUM CHLORIDE 0.9% 1,000 ML 1000 ML IV (12:53)
[2024-08-03] MEDS: MORPHINE 4 MG/ML INJ IV ×2 (12:53→14:33)
[2024-08-03] MEDS: ONDANSETRON 4 MG/2 ML INJ IV (12:53)
[2024-08-03 12:58] LABS: Add Manual Diff / Slide Review NO; Basophils Absolute Auto 100 /uL (0-100); Basophils Percent Auto 0.5 % (0-2); Eosinophils Absolute Auto 100 /uL (0-450); Eosinophils Percent Auto 0.9 % (2-4); Hematocrit 29.8 % (41-53); Hemoglobin 9.6 g/dL (13.5-17.5); Lymphocytes Absolute Auto 4300 /uL (1100-4500); Lymphocytes Percent Auto 28.3 % (25-40); Mean Corpuscular Hemoglobin 24.4 PG (26-34); Mean Corpuscular Volume 76.1 fL (80-100); Monocytes Absolute Auto 1000 /uL (0-900); Monocytes Percent Auto 6.7 % (3-14); Neutrophils Absolute Auto 9600 /uL (1500-7000); Neutrophils Percent Auto 63.6 % (50-75); Platelet Count 338 X10^3/uL (150-400); Red Blood Cell Count 3.92 X10^6/uL (4.5-5.9); Red Cell Distribution Width 19.6 % (11.6-14.8); White Blood Cell Count 15.1 X10^3/uL (4.5-11.0)
[2024-08-03 13:14] LABS: Reticulocyte Count, Percent 9.6 % (0.9-2.6)
[2024-08-03 13:39] LABS: Alanine Aminotransferase 19 IU/L (<50); Albumin 4.2 g/dL (3.5-5.0); Albumin Globulin Ratio 1.2 (1.0-2.8); Alkaline Phosphatase 100 U/L (38-126); Aspartate Aminotransferase 46 IU/L (17-59); BUN Creatinine Ratio 4.9 (6-22); Bilirubin Total 2.5 mg/dL (0.2-1.3); Blood Urea Nitrogen 3 mg/dL (9-20); Calcium 8.8 mg/dL (8.4-10.2); Carbon Dioxide 25 mmol/L (22-32); Chloride 107 mmol/L (98-107); Creatine Kinase 98 U/L (55-170); Estimated Glomerular Filt Rate > 60 mL/min (>60); Globulin 3.4 g/dL (1.7-4.1); Glucose 86 mg/dL (70-100); HEMOLYSIS < 15 (0-50); Lipase 43 U/L (23-300); Potassium 3.6 mmol/L (3.4-5.1); Sodium 140 mmol/L (137-145); Total Protein 7.6 g/dL (6.3-8.2)
[2024-08-03 13:50] LABS: Troponin I 0.014 ng/mL (0.01-0.034)
[2024-08-03 13:52] LABS: Anisocytosis 1+
[2024-08-03 13:53] LABS: Sickle Cells 1+
[2024-08-03 13:58] LABS: Neutrophils Absolute Manual 11627 /uL (3000-5900); Nucleated Red Blood Cells 3 #/Diff; Total Cells Counted 100
[2024-08-03 14:56] LABS: Adenovirus Not Detected (Not Detect); B. parapertussis Not Detected (Not Detecte); Bordetella pertussis Not Detected (Not Detect); Chlamydophila pneumoniae Not Detected (Not Detect); Coronavirus 229E Not Detected (Not Detect); Coronavirus HKU1 Not Detected (Not Detect); Coronavirus NL 63 Not Detected (Not Detect); Coronavirus OC43 Not Detected (Not Detect); Human Metapneumovirus Not Detected (Not Detect); Human Rhinovirus/Enterovirus Not Detected (Not Detect); Influenza A Not Detected (Not Detect); Influenza B Not Detected (Not Detect); Mycoplasma pneumoniae Not Detected (Not Detect); Parainfluenza Virus 1 Not Detected (Not Detect); Parainfluenza Virus 2 Not Detected (Not Detect); Parainfluenza Virus 3 Not Detected (Not Detect); Parainfluenza Virus 4 Not Detected (Not Detect); Respiratory Syncytial Virus Not Detected (Not Detect); SARS- CoV-2 Not Detected (Not Detecte)
[2024-08-03] MEDS: ALBUTEROL 2.5 MG/3 ML NEB (ADULT) INH (15:11)
[2024-08-03] MEDS: HYDROCODONE/ACET 5/325 TABLET 1 TAB PO (15:11)
--- NOTE | 2024-08-03 15:27 | RT ---
pt rafael anaya well, on room air with no distress noted
[2024-08-03] MEDS: DOXYCYCLINE HYCLATE 100 MG TABLET PO (15:54)
[2024-08-03] MEDS: AMOXICILLIN/CLAV 875/125 MG 1 TAB PO (15:54)
== END 2024-08-03 16:10 | disposition home or self-care (01) ==
PROVIDERS: Emergency Provider Emergency Medicine; PCP Nurse Practitioner Family
DX: J18.9 Pneumonia, unspecified organism (principal); R07.9 Chest pain, unspecified; Z90.81 Acquired absence of spleen; Z86.2 Personal history of diseases of the blood and blood-forming organs and certain disorders involving the immune mechanism
CPT/HCPCS: 36415; 71045; 80053; 82550; 83690; 84484; 85007; 85025; 85045; 87633; 93005; 94640; 96361; 96374; 96375; 96376; 99284; J2270; J2405; J7613

== ENCOUNTER 2024-08-04 09:54 | Observation (INO) | payer OTHER, SELFPAY ==
[2024-08-04] VITALS (10 sets, daily range): BP systolic 115–131; BP diastolic 60–79; PULSE 74–92; RESP 19–24; TEMP 36.3–37; O2SAT 94–99
--- NOTE | 2024-08-04 10:00 | DI.RAD.S_ITS ---
PROCEDURE: XR CHEST 1V INDICATIONS: chest pain TECHNIQUE: One view of the chest was acquired. COMPARISON: [facility], CR, XR CHEST 1V, 08/01/2024, 4:12. [facility], CR, XR CHEST 1V, 07/27/2024, 7:12. [facility], CR, XR CHEST 1V, 08/03/2024, 12:42. FINDINGS: Surgical changes and devices: None. Lungs and pleura: Abnormal interstitial prominence can be seen. Mediastinum: Mediastinal contours appear normal. Heart size is mildly to moderately enlarged. Bones and chest wall: Sclerotic bony lesions can be seen, with deformity of the left humeral head.. Overlying soft tissues appear unremarkable. IMPRESSION: Worsening interstitial prominence. Cardiomegaly. Sclerotic bony lesions are seen, consistent with prior sickle cell infarctions. Dictated by: Александр Chandler M.D. on 08/04/2024 at 9:46 Approved by: Александр Chandler M.D. on 08/04/2024 at 9:47
--- NOTE | 2024-08-04 10:05 | ED_ITS ---
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 No injury or trauma. No pain to his extremities which sometimes happens with previous occlusive sickle crises. No new weakness to face arm or leg. No numbness to face arm or leg. Related Data Previous Rx's Medication Instructions Recorded hydroxyurea (sickle cell) 200 mg 200 mg PO DAILY #30 caps 07/01/23 capsule doxycycline hyclate 100 mg tablet 100 mg PO BID #14 tabs 07/28/24 penicillin V potassium 250 mg 250 mg PO BID #30 tabs 07/28/24 tablet naloxone 4 mg/actuation nasal 4 mg intranasal Q2M PRN opioid 07/31/24 spray (Narcan) overdose #2 ea ondansetron 4 mg disintegrating 4 mg PO Q8H PRN nausea and 07/31/24 tablet vomiting #20 tabs oxycodone-acetaminophen 5 mg-325 1 tab PO Q4-6H PRN pain #16 tabs 07/31/24 mg tablet (Percocet) albuterol sulfate 90 mcg/actuation 2 puff inhalation Q6H PRN 08/03/24 aerosol inhaler shortness of breath or wheezing #8.5 grams amoxicillin 875 mg-potassium 1 tab PO BID #20 tabs 08/03/24 clavulanate 125 mg tablet hydrocodone 5 mg-acetaminophen 325 1 tab PO Q6H PRN pain #14 tabs 08/03/24 mg tablet Allergies Allergy/AdvReac Type Severity Reaction Status Date / Time No Known Drug Allergies Allergy Verified 08/01/24 11:25 Patient History Medical History Avascular necrosis of bone Contracture, left elbow Contracture, left hand CVA (cerebral vascular accident) Sickle cell anemia Surgical History History of shoulder surgery 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 Family History Father Cancer Sickle cell trait Mother Sickle cell trait Social History household members: significant other Smoking Status: Never smoker alcohol intake: never Smoking Status: Never smoker alcohol intake frequency: holidays/special occasions only Exam Narrative Exam Narrative: GENERAL: Well-developed patient, in mild distress. HEAD: Atraumatic. Normocephalic. EYES: Pupils equal round and reactive. Extraocular motions intact. No scleral icterus. No injection or drainage. ENT: Nose without bleeding, purulent drainage. Throat without erythema, tonsillar hypertrophy or exudate. Airway patent. NECK: Trachea midline. Non tender CARDIOVASCULAR: Regular rate and rhythm without murmurs, gallops, or rubs. RESPIRATORY: Clear to auscultation. Breath sounds equal bilaterally. No wheezes, rales, or rhonchi. GASTROINTESTINAL: Abdomen soft, non-tender, nondistended. EXTREMITIES: Left upper extremity with atrophy and flexion contracture no change from exam yesterday, left lower extremity similar to right, no asymmetry, no obvious pain or skin changes or rash or redness. BACK: Nontender without deformity or crepitance. No flank tenderness. NEURO: AOx3. LUE muscle wasting and flexion contacture changes again noted. No other neuro deficits obvious. SKIN: No rash or erythema of visible areas Initial Vital Signs Initial Vital Signs: Vital Signs Blood Pressure 117/69 08/04/24 09:57 Course Orders Ordered: Acetaminophen (Acetaminophen 325 Mg Tablet) 650 mg PO Q6H PRN PRN Reason: Fever/Mild Pain (1-3) Albuterol (Albuterol 2.5 Mg/3 Ml Neb (Adult)) 2.5 mg INH Q6H PRN PRN Reason: shortness of breath or wheezing Enoxaparin Sodium (Enoxaparin 40 Mg/0.4 Ml Syringe) 40 mg SUBCUT DAILY JONATHAN Last Admin: 08/04/24 12:47 Dose: Not Given Documented By: DARIO Hydromorphone HCl (Hydromorphone 2 Mg Tablet) 2 mg PO Q4HR PRN PRN Reason: Pain, Moderate (4-6) Last Admin: 08/04/24 14:05 Dose: 2 mg Documented By: EYAL Hydromorphone HCl (Hydromorphone 0.5 Mg Inj) 0.5 mg IV Q2H PRN PRN Reason: Pain, Severe (7-10) Last Admin: 08/04/24 17:46 Dose: 0.5 mg Documented By: Admin: 08/04/24 12:44 Dose: 0.5 mg Documented By: DARIO Hydromorphone HCl 10 mg/ (Sodium Chloride) 101 mls @ 5.05 mls/hr IV TITRATE JONATHAN; Protocol Last Admin: 08/04/24 15:09 Dose: 0.5 mg/hr, 5.05 mls/hr Documented By: EYAL Naloxone HCl (Naloxone 0.4 Mg/Ml Vial) 0.2 mg IV Q2MIN PRN PRN Reason: Opiate Reversal Hydroxyurea (Sickle (Cell) 200 Mg Capsule) 200 mg PO DAILY JONATHAN Ondansetron HCl (Ondansetron 4 Mg Odt) 4 mg PO Q8HR PRN PRN Reason: Nausea And Vomiting Penicillin V Potassium (Penicillin Vk 250 Mg Tablet) 250 mg PO BID JONATHAN Discontinued Medications Amoxicillin/Clavulanate Potassium (Amoxicillin/Clav 875/125 Mg) 1 tab PO BID JONATHAN Doxycycline Hyclate (Doxycycline Hyclate 100 Mg Tablet) 100 mg PO BID JONATHAN Sodium Chloride (Normal Saline 0.9%) 1,000 mls @ 1,000 mls/hr IV BOLUS ONE Stop: 08/04/24 11:00 Last Infusion: 08/04/24 11:27 Dose: Infused Documented By: Admin: 08/04/24 10:14 Dose: 1,000 mls/hr Documented By: BRIGITTE Morphine Sulfate (Morphine 4 Mg/Ml Inj) 4 mg IV NOW ONE Stop: 08/04/24 10:02 Last Admin: 08/04/24 10:14 Dose: 4 mg Documented By: BRIGITTE Non-Formulary Medication (Naloxone [Narcan]) 4 mg NASAL Q2M PRN PRN Reason: opioid overdose Ondansetron HCl (Ondansetron 4 Mg/2 Ml Inj) 4 mg IV NOW ONE Stop: 08/04/24 10:02 Last Admin: 08/04/24 10:14 Dose: 4 mg Documented By: MPO Vital Signs Vital signs: Vital Signs - 8 hr 08/04/24 09:57 08/04/24 09:58 08/04/24 09:58 Temperature Pulse Rate 90 Respiratory Rate Blood Pressure 117/69 115/70 Pulse Oximetry 95 Oxygen Delivery Method 08/04/24 09:59 08/04/24 10:00 08/04/24 10:01 Temperature 98.6 F Pulse Rate 92 H 90 90 Respiratory Rate 20 Blood Pressure 131/60 Pulse Oximetry 96 94 94 Oxygen Delivery Method Room Air 08/04/24 10:01 08/04/24 10:30 08/04/24 10:30 Temperature Pulse Rate 78 Respiratory Rate Blood Pressure 131/60 121/67 Pulse Oximetry 96 Oxygen Delivery Method MDM - Chest Pain Lab Data Attestation: I reviewed the patient's lab results. Lab results narrative: White blood cell count 74723, hemoglobin 10.1, platelets adequate. Basic metabolic panel unremarkable. Liver functions unremarkable, lipase normal. Troponin low measurable. 08/04/24 09:59 08/04/24 09:59 Labs: Lab Results 08/04/24 Range/Units 09:59 WBC 15.5 H (4.5-11.0) X10^3/uL RBC 4.06 L (4.5-5.9) X10^6/uL Hgb 10.1 L (13.5-17.5) g/dL Hct 30.8 L (41-53) % MCV 75.9 L (80-100) fL MCH 24.9 L (26-34) PG MCHC 32.8 (30-36) % RDW 20.3 H (11.6-14.8) % Plt Count 383 (150-400) X10^3/uL Neut % (Auto) Not Reportable Lymph % (Auto) Not Reportable [place] % (Auto) Not Reportable Eos % (Auto) Not Reportable Baso % (Auto) Not Reportable Lymph # (Auto) Not Reportable [place] # (Auto) Not Reportable Baso # (Auto) Not Reportable Total Counted 100 Seg Neutrophils % 58.0 (38-70) % Band Neutrophils % 3.0 (3-7) % Lymphocytes % (Manual) 30.0 (25-45) % Monocytes % (Manual) 4.0 (2-11) % Eosinophils % (Manual) 1.0 L (2-4) % Basophils % (Manual) 3.0 H (0-1) % Myelocytes % 1.0 H (-0) % Neutrophils # (Manual) 9455 H (2582-4442) /uL Nucleated RBCs 7 H ( - 0) #/Diff RBC Morphology See below Polychromasia 1+ H Anisocytosis 2+ H Microcytosis 1+ H Macrocytosis 1+ H Sickle Cells 2+ H Target Cells 1+ H Percent Retic 8.5 H (0.9-2.6) % Sodium 138 (137-145) mmol/L Potassium 4.3 (3.4-5.1) mmol/L Chloride 107 (98-107) mmol/L Carbon Dioxide 22 (22-32) mmol/L BUN 5 L (9-20) mg/dL Creatinine 0.59 L (0.66-1.25) mg/dL Estimated GFR > 60 (>60) mL/min BUN/Creatinine Ratio 8.5 (6-22) Glucose 103 H (70-100) mg/dL Calcium 8.8 (8.4-10.2) mg/dL Total Bilirubin 2.0 H (0.2-1.3) mg/dL AST 51 (17-59) IU/L ALT 20 (<50) IU/L Alkaline Phosphatase 96 (38-126) U/L Total Creatine Kinase 78 (55-170) U/L Troponin I 0.015 (0.01-0.034) ng/mL Total Protein 8.4 H (6.3-8.2) g/dL Albumin 4.4 (3.5-5.0) g/dL Globulin 4.0 (1.7-4.1) g/dL Albumin/Globulin Ratio 1.1 (1.0-2.8) Lipase 81 D (23-300) U/L Imaging Data Chest x-ray: Radiologist's Impression: [address] [address] XRay Report Signed Patient: Lucretia Keller MR#: [id number] : 2000 Acct:[id number] Age/Sex: 23 / M Date of Service: 08/04/24 Loc: ED Accession Number: [id number] Procedure: XR chest 1V Ordering Provider: Jeovanny Yost MD PROCEDURE: XR CHEST 1V INDICATIONS: chest pain TECHNIQUE: One view of the chest was acquired. COMPARISON: [facility], CR, XR CHEST 1V, 08/01/2024, 4:12. [facility], CR, XR CHEST 1V, 07/27/2024, 7:12. [facility], CR, XR CHEST 1V, 08/03/2024, 12:42. FINDINGS: Surgical changes and devices: None. Lungs and pleura: Abnormal interstitial prominence can be seen. Mediastinum: Mediastinal contours appear normal. Heart size is mildly to moderately enlarged. Bones and chest wall: Sclerotic bony lesions can be seen, with deformity of the left humeral head.. Overlying soft tissues appear unremarkable. IMPRESSION: Worsening interstitial prominence. Cardiomegaly. Sclerotic bony lesions are seen, consistent with prior sickle cell infarctions. Dictated by: Александр Chandler M.D. on 08/04/2024 at 9:46 Approved by: Александр Chandler M.D. on 08/04/2024 at 9:47 ECG Data Attestation: I personally reviewed and interpreted this ECG as follows: Interpretation: 1018, normal sinus rhythm with rate of 86, no obvious ST segment elevation or depression changes. T-wave inversion lead 3 but upright in other contiguous inferior leads. First-degree AV block with DC interval 244 noted. QRS 98, QTC 466. [facility] Narrative Medical decision making narrative: 23-year-old with history of sickle cell disease, history of remote splenectomy, returns from visit here yesterday with persisting chest pain, previous chest x- ray and labs and viral swab studies unremarkable, taking his amoxicillin/doxycycline antibiotics, feels like he is having worse chest pain, some trouble breathing. Lungs clear on examination, speaking in full sentences. We will repeat chest x-ray and labs including reticulocyte count, screening EKG unremarkable. Consider admission, we will reconsult with hospitalist once data available, Dr. Petersen aware of patient from yesterday. IV fluid bolus, IV morphine, IV Zofran. EKG without ischemic changes, chest x-ray no infiltrates per Radiology report. Labs screening study similar to yesterday, white blood cell count 58033, troponin measurable but low, reticulocyte count 8% and similar range. Quite symptomatic with his chest pain in context of sickle cell, we will consult hospitalist Dr. Petersen regarding admission Case discussed with hospitalist Dr Petersen, accepts patient for admission Discharge Plan Departure Patient Disposition: Admitted as Observation Clinical Impression: Sickle cell disease with crisis, Chest pain, Upper respiratory infection Admit Date/Time: 08/04/24 11:18 Admit Provider: Willa Petersen
[2024-08-04] MEDS: ONDANSETRON 4 MG/2 ML INJ IV (10:14)
[2024-08-04] MEDS: SODIUM CHLORIDE 0.9% 1,000 ML 1000 ML IV (10:14)
[2024-08-04] MEDS: MORPHINE 4 MG/ML INJ IV (10:14)
--- NOTE | 2024-08-04 10:18 | EKG_ITS ---
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
[2024-08-04 10:27] LABS: Add Manual Diff / Slide Review YES; Hematocrit 30.8 % (41-53); Hemoglobin 10.1 g/dL (13.5-17.5); Mean Corpuscular HGB Conc 32.8 % (30-36); Mean Corpuscular Hemoglobin 24.9 PG (26-34); Mean Corpuscular Volume 75.9 fL (80-100); Platelet Count 383 X10^3/uL (150-400); Red Blood Cell Count 4.06 X10^6/uL (4.5-5.9); Red Cell Distribution Width 20.3 % (11.6-14.8); White Blood Cell Count 15.5 X10^3/uL (4.5-11.0)
[2024-08-04 10:33] LABS: Reticulocyte Count, Percent 8.5 % (0.9-2.6)
[2024-08-04 10:35] LABS: Alanine Aminotransferase 20 IU/L (<50); Albumin 4.4 g/dL (3.5-5.0); Albumin Globulin Ratio 1.1 (1.0-2.8); Alkaline Phosphatase 96 U/L (38-126); Aspartate Aminotransferase 51 IU/L (17-59); BUN Creatinine Ratio 8.5 (6-22); Blood Urea Nitrogen 5 mg/dL (9-20); Calcium 8.8 mg/dL (8.4-10.2); Carbon Dioxide 22 mmol/L (22-32); Chloride 107 mmol/L (98-107); Creatine Kinase 78 U/L (55-170); Estimated Glomerular Filt Rate > 60 mL/min (>60); Glucose 103 mg/dL (70-100); HEMOLYSIS 34 (0-50); Lipase 81 U/L (23-300); Potassium 4.3 mmol/L (3.4-5.1); Sodium 138 mmol/L (137-145); Total Protein 8.4 g/dL (6.3-8.2)
[2024-08-04 10:47] LABS: Troponin I 0.015 ng/mL (0.01-0.034)
[2024-08-04 11:34] LABS: Neutrophils Absolute Manual 9455 /uL (3000-5900); Nucleated Red Blood Cells 7 #/Diff; Total Cells Counted 100
[2024-08-04 11:35] LABS: Anisocytosis 2+; Macrocytosis 1+; Microcytosis 1+
[2024-08-04 11:36] LABS: Polychromasia 1+; Sickle Cells 2+; Target Cells 1+
[2024-08-04] MEDS: HYDROMORPHONE 0.5 MG INJ IV ×3 (12:44→20:44)
[2024-08-04] MEDS: HYDROMORPHONE 2 MG TABLET PO (14:05)
[2024-08-04] MEDS: HYDROMORPHONE PF 10 MG in SODIUM CHLORIDE 0.9% 100 ML 5.05 MG IV (15:09)
--- NOTE | 2024-08-04 17:15 | P.HP_ITS ---
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 He was seen in the emergency department July 31 with complaints of hip, back, and arm pain. He was treated in the emergency department with IV fluids, antiemetics, and pain medications. He was discharged home with oral oxycodone. He returned to the emergency department on August 01 with a primary complaint of chest pain. Lab work did not show any significant change. He underwent a chest x-ray which showed no acute infiltrate. He was given IV fluids, several doses of IV pain medication, and felt improved. He subsequently discharged home with instructions to continue the previously prescribed medications. He was seen in the clinic for follow-up on August 01 to establish care. During that visit, he was significantly uncomfortable and was referred back to the ED for reassessment. He again received IV pain medication which improved his pain and he felt he could manage further at home. He returned to the emergency department yesterday with chest pain. He had complained of 3 days of dry cough and pain to the bilateral anterior chest. He denied a previous history of acute chest syndrome. Respiratory viral panel was negative. Chest x-ray was negative. He was felt to have a viral URI and was given a prescription for an albuterol inhaler. He was advised to return if his symptoms did not improve. He returned today complaining having no improvement. He continues to have anterior chest pain and stated he felt worse today. Admission was recommended. He tells me he has not been having any upper respiratory infection symptoms. He states he has not had a cough, but if he happens to cough he has chest pain. He states it does hurt to take a deep breath. He has not had a sore throat, headache, rhinorrhea or other ill symptoms. No fevers. He has not had any ill exposures. [facility] Medical History Avascular necrosis of bone Contracture, left elbow Contracture, left hand CVA (cerebral vascular accident) Sickle cell anemia Surgical History History of shoulder surgery 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 Family History Father Cancer Sickle cell trait Mother Sickle cell trait Social History household members: significant other Smoking Status: Never smoker alcohol intake: never Meds Home Medications and Allergies Home Medications Medication Instructions Recorded Confirmed Type hydroxyurea (sickle cell) 200 mg 200 mg PO DAILY #30 caps 07/01/23 08/04/24 Rx capsule doxycycline hyclate 100 mg tablet 100 mg PO BID #14 tabs 07/28/24 08/04/24 Rx penicillin V potassium 250 mg 250 mg PO BID #30 tabs 07/28/24 08/04/24 Rx tablet naloxone 4 mg/actuation nasal 4 mg intranasal Q2M PRN opioid 07/31/24 08/04/24 Rx spray (Narcan) overdose #2 ea ondansetron 4 mg disintegrating 4 mg PO Q8H PRN nausea and 07/31/24 08/04/24 Rx tablet vomiting #20 tabs oxycodone-acetaminophen 5 mg-325 1 tab PO Q4-6H PRN pain #16 tabs 07/31/24 08/04/24 Rx mg tablet (Percocet) albuterol sulfate 90 mcg/actuation 2 puff inhalation Q6H PRN 08/03/24 08/04/24 Rx aerosol inhaler shortness of breath or wheezing #8.5 grams amoxicillin 875 mg-potassium 1 tab PO BID #20 tabs 08/03/24 08/04/24 Rx clavulanate 125 mg tablet hydrocodone 5 mg-acetaminophen 325 1 tab PO Q6H PRN pain #14 tabs 08/03/24 08/04/24 Rx mg tablet Allergies Allergy/AdvReac Type Severity Reaction Status Date / Time No Known Drug Allergies Allergy Verified 08/01/24 11:25 Review of Systems Review of Systems Narrative: All other systems were reviewed negative Exam Vital Signs (past 8 hours): - 08/04/24 09:57 08/04/24 09:58 08/04/24 09:58 Temperature Pulse Rate 90 Respiratory Rate Blood Pressure 117/69 115/70 Pulse Oximetry 95 Oxygen Delivery Method Oxygen Flow Rate 08/04/24 09:59 08/04/24 10:00 08/04/24 10:01 Temperature 98.6 F Pulse Rate 92 H 90 90 Respiratory Rate 20 Blood Pressure 131/60 Pulse Oximetry 96 94 94 Oxygen Delivery Method Room Air Oxygen Flow Rate 08/04/24 10:01 08/04/24 10:30 08/04/24 10:30 Temperature Pulse Rate 78 Respiratory Rate Blood Pressure 131/60 121/67 Pulse Oximetry 96 Oxygen Delivery Method Oxygen Flow Rate 08/04/24 11:00 08/04/24 11:00 08/04/24 11:30 Temperature Pulse Rate 74 76 Respiratory Rate 24 Blood Pressure 118/69 Pulse Oximetry 97 98 Oxygen Delivery Method Oxygen Flow Rate 08/04/24 11:30 08/04/24 12:00 Temperature 97.3 F L Pulse Rate 85 Respiratory Rate 20 Blood Pressure 122/76 115/79 Pulse Oximetry 99 Oxygen Delivery Method Oxygen Flow Rate 0 Oxygen Delivery Method Room Air Oxygen Flow Rate 0 Narrative Exam Narrative: GEN: Pleasant adult male, Alert and oriented x3, appears uncomfortable HEENT: Normocephalic, face symmetric, pupils equal round reactive to light, extraocular movements intact, sclerae anicteric, conjunctiva clear, nares patent, oropharynx reveals an intact soft and hard palate with moist mucous membranes, dentition is fair, mild erythema to the tonsils NECK: Supple, no lymphadenopathy, thyroid without enlargement or nodularity, CHEST: Respiratory excursions symmetric, clear to auscultation bilaterally CV: Regular rate and rhythm, no murmurs, rubs, gallops, PMI nondisplaced ABD: Soft, nontender, nondistended, bowel sounds present in all 4 quadrants, no organomegaly or masses appreciated EXTR: Warm, well perfused, no clubbing/cyanosis/edema SKIN: Warm and dry, without rash NEURO: Alert and oriented x3, cranial nerves 2 through 12 are intact and symmetric bilaterally, contracture noted to the left upper extremity PSYCH: Mood and affect is within normal limits, judgment and insight are appropriate Objective Labs 08/04/24 09:59 08/04/24 09:59 Labs: Laboratory Results - last 24 hr 08/04/24 09:59 WBC 15.5 H RBC 4.06 L Hgb 10.1 L Hct 30.8 L MCV 75.9 L MCH 24.9 L MCHC 32.8 RDW 20.3 H Plt Count 383 Neut % (Auto) Not Reportable Lymph % (Auto) Not Reportable [place] % (Auto) Not Reportable Eos % (Auto) Not Reportable Baso % (Auto) Not Reportable Lymph # (Auto) Not Reportable [place] # (Auto) Not Reportable Baso # (Auto) Not Reportable Total Counted 100 Seg Neutrophils % 58.0 Band Neutrophils % 3.0 Lymphocytes % (Manual) 30.0 Monocytes % (Manual) 4.0 Eosinophils % (Manual) 1.0 L Basophils % (Manual) 3.0 H Myelocytes % 1.0 H Neutrophils # (Manual) 9455 H Nucleated RBCs 7 H RBC Morphology See below Polychromasia 1+ H Anisocytosis 2+ H Microcytosis 1+ H Macrocytosis 1+ H Sickle Cells 2+ H Target Cells 1+ H Percent Retic 8.5 H Sodium 138 Potassium 4.3 Chloride 107 Carbon Dioxide 22 BUN 5 L Creatinine 0.59 L Estimated GFR > 60 BUN/Creatinine Ratio 8.5 Glucose 103 H Calcium 8.8 Total Bilirubin 2.0 H AST 51 ALT 20 Alkaline Phosphatase 96 Total Creatine Kinase 78 Troponin I 0.015 Total Protein 8.4 H Albumin 4.4 Globulin 4.0 Albumin/Globulin Ratio 1.1 Lipase 81 D Assessment & Plan Assessment & Plan narrative: 1. Sickle cell disease with presumed acute chest syndrome Patient is admitted for ongoing treatment. He continues on hydroxyurea and penicillin. He does not appear to have a acute upper respiratory infection based on his history. Will discontinue Augmentin and doxycycline. He has not had any pain relief with as needed medications as noted above. Will initiate a hydromorphone infusion. Will have both p.o. and IV hydromorphone available for breakthrough pain. He is well hydrated at this time, and has no history of diarrhea, nausea or vomiting, or history of inadequate oral intake. His BUN and creatinine are low. Will monitor for adequate oral fluid intake. 2. Leukocytosis Mild, at baseline. No evidence of acute infection. He is post splenectomy. Unclear what his vaccination status is. 3. Remote stroke at the age of 1 secondary to sickle cell disease Hemiparesis is at baseline. 4. Anemia, secondary to sickle cell disease Hemoglobin is stable at 10.1. Reticulocyte is stable at 8.5%. Total bilirubin stable at 2.0. Code status Full Prophylaxis Will start Lovenox given his sickle cell disease Disposition Admit to observation status. Time-Based Coding :: [TOTAL MINUTES] spent with patient and on the chart (including review of chart, obtaining history, exam, reviewing outside data, placing orders, documenting exam and treatment plan, and counseling patient) on [DATE].
[2024-08-04] MEDS: PENICILLIN VK 250 MG TABLET PO (20:44)
[2024-08-05] MEDS: HYDROMORPHONE 0.5 MG INJ IV ×9 (00:09→21:25)
[2024-08-05 06:54] LABS: Hemoglobin 9.2 g/dL (13.5-17.5); Mean Corpuscular Volume 75.8 fL (80-100); Platelet Count 350 X10^3/uL (150-400); Red Blood Cell Count 3.69 X10^6/uL (4.5-5.9); Red Cell Distribution Width 19.1 % (11.6-14.8); White Blood Cell Count 14.6 X10^3/uL (4.5-11.0)
[2024-08-05 06:56] LABS: Add Manual Diff / Slide Review YES
[2024-08-05 07:00] VITALS: BP 118/79; PULSE 84; RESP 12; TEMP 36.2; O2SAT 92
[2024-08-05 07:04] LABS: Alanine Aminotransferase 15 IU/L (<50); Albumin 3.8 g/dL (3.5-5.0); Alkaline Phosphatase 87 U/L (38-126); Aspartate Aminotransferase 32 IU/L (17-59); BUN Creatinine Ratio 5.2 (6-22); Bilirubin Total 2.3 mg/dL (0.2-1.3); Blood Urea Nitrogen 3 mg/dL (9-20); Calcium 8.8 mg/dL (8.4-10.2); Carbon Dioxide 26 mmol/L (22-32); Chloride 101 mmol/L (98-107); Estimated Glomerular Filt Rate > 60 mL/min (>60); Globulin 3.7 g/dL (1.7-4.1); Glucose 91 mg/dL (70-100); HEMOLYSIS < 15 (0-50); Potassium 3.7 mmol/L (3.4-5.1); Sodium 133 mmol/L (137-145); Total Protein 7.5 g/dL (6.3-8.2)
[2024-08-05 07:39] LABS: Anisocytosis 2+
[2024-08-05 07:40] LABS: Schistocytes 1+
[2024-08-05 07:42] LABS: Microcytosis 1+; Sickle Cells 1+
[2024-08-05 07:46] LABS: Target Cells 2+
[2024-08-05 07:51] LABS: Neutrophils Absolute Manual 7008 /uL (3000-5900); Nucleated Red Blood Cells 3 #/Diff; Total Cells Counted 100
--- NOTE | 2024-08-05 07:52 | PM.PN.1 ---
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 He was seen in the emergency department July 31 with complaints of hip, back, and arm pain. He was treated in the emergency department with IV fluids, antiemetics, and pain medications. He was discharged home with oral oxycodone. He returned to the emergency department on August 01 with a primary complaint of chest pain. Lab work did not show any significant change. He underwent a chest x-ray which showed no acute infiltrate. He was given IV fluids, several doses of IV pain medication, and felt improved. He subsequently discharged home with instructions to continue the previously prescribed medications. He was seen in the clinic for follow-up on August 01 to establish care. During that visit, he was significantly uncomfortable and was referred back to the ED for reassessment. He again received IV pain medication which improved his pain and he felt he could manage further at home. He returned to the emergency department yesterday with chest pain. He had complained of 3 days of dry cough and pain to the bilateral anterior chest. He denied a previous history of acute chest syndrome. Respiratory viral panel was negative. Chest x-ray was negative. He was felt to have a viral URI and was given a prescription for an albuterol inhaler. He was advised to return if his symptoms did not improve. He returned today complaining having no improvement. He continues to have anterior chest pain and stated he felt worse today. Admission was recommended. He tells me he has not been having any upper respiratory infection symptoms. He states he has not had a cough, but if he happens to cough he has chest pain. He states it does hurt to take a deep breath. He has not had a sore throat, headache, rhinorrhea or other ill symptoms. No fevers. He has not had any ill exposures. S: He is improving, but still has 6/10 chest pain. The pain is somewhat pleuritic. No nausea. No fevers. Exam Vital Signs (past 8 hours): Oxygen Delivery Method Room Air Oxygen Flow Rate 0 Narrative Exam Narrative: NAD, alert and oriented. Fluent speech. Lungs are clear, normal rate and effort. Heart is regular, no murmur gallop or rub. Abdomen is soft, non distended. Extremities are free of edema. Contracted left arm. Objective Labs 08/05/24 06:25 08/05/24 06:25 Labs: Laboratory Results - last 24 hr 08/04/24 08/05/24 09:59 06:25 WBC 15.5 H 14.6 H RBC 4.06 L 3.69 L Hgb 10.1 L 9.2 L Hct 30.8 L 28.0 L MCV 75.9 L 75.8 L MCH 24.9 L 25.0 L MCHC 32.8 33.0 RDW 20.3 H 19.1 H Plt Count 383 350 Neut % (Auto) Not Reportable Not Reportable Lymph % (Auto) Not Reportable Not Reportable [place]lands % (Auto) Not Reportable Not Reportable Eos % (Auto) Not Reportable Not Reportable Baso % (Auto) Not Reportable Not Reportable Lymph # (Auto) Not Reportable Not Reportable [place]lands # (Auto) Not Reportable Not Reportable Baso # (Auto) Not Reportable Not Reportable Total Counted 100 Seg Neutrophils % 58.0 Band Neutrophils % 3.0 Lymphocytes % (Manual) 30.0 Monocytes % (Manual) 4.0 Eosinophils % (Manual) 1.0 L Basophils % (Manual) 3.0 H Myelocytes % 1.0 H Neutrophils # (Manual) 9455 H Nucleated RBCs 7 H RBC Morphology See below See below Polychromasia 1+ H Anisocytosis 2+ H 2+ H Microcytosis 1+ H 1+ H Macrocytosis 1+ H Sickle Cells 2+ H 1+ H Target Cells 1+ H 2+ H Schistocytes 1+ H Percent Retic 8.5 H Sodium 138 133 L Potassium 4.3 3.7 Chloride 107 101 Carbon Dioxide 22 26 BUN 5 L 3 L Creatinine 0.59 L 0.58 L Estimated GFR > 60 > 60 BUN/Creatinine Ratio 8.5 5.2 L Glucose 103 H 91 Calcium 8.8 8.8 Total Bilirubin 2.0 H 2.3 H AST 51 32 ALT 20 15 Alkaline Phosphatase 96 87 Total Creatine Kinase 78 Troponin I 0.015 Total Protein 8.4 H 7.5 Albumin 4.4 3.8 Globulin 4.0 3.7 Albumin/Globulin Ratio 1.1 1.0 Lipase 81 D PFSH Medical History Avascular necrosis of bone Contracture, left elbow Contracture, left hand CVA (cerebral vascular accident) Sickle cell anemia Surgical History History of shoulder surgery 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 Family History Father Cancer Sickle cell trait Mother Sickle cell trait Social History household members: significant other Smoking Status: Never smoker alcohol intake: never Assessment & Plan Assessment & Plan narrative: 1. Sickle cell disease with presumed acute chest syndrome, ative and slowly improving. Patient is admitted for ongoing treatment. 2. Leukocytosis, active. Mild, at baseline. No evidence of acute infection. He is post splenectomy. Unclear what his vaccination status is. 3. Remote stroke at the age of 1 secondary to sickle cell disease, stable. Hemiparesis is at baseline. 4. Anemia, secondary to sickle cell disease, stable. Hemoglobin is stable at 10.1. Reticulocyte is stable at 8.5%. Total bilirubin stable at 2.0. PLAN: -discontinue IV infusion of Dilaudid. -oxycodone q.3 hours as needed moderate pain. -Dilaudid IV q.2 hours as needed severe pain. Code status Full Prophylaxis Will start Lovenox given his sickle cell disease Time-Based Coding :: [TOTAL MINUTES] spent with patient and on the chart (including review of chart, obtaining history, exam, reviewing outside data, placing orders, documenting exam and treatment plan, and counseling patient) on [DATE].
[2024-08-05] MEDS: PENICILLIN VK 250 MG TABLET PO ×2 (09:53→21:28)
[2024-08-05] MEDS: OXYCODONE IR 10 MG TABLET PO ×2 (09:53→22:18)
--- NOTE | 2024-08-05 13:17 | CM.DANOTE ---
Addendum entered by VISHNU Ballard 08/05/24 13:25: ADD: SW left msg for [facility] (?) CM Cristine [phone] to determine if pt remains on her caseload for Case Management with discharge needs as pt currently has Coordinated Care but Cristine had contacted DCP office during pt's admission in Jun 2024. BF Original Note: Patient is a READMIT 23 yo male who was admitted on 08/04/24 OBS Status for Chest Pain and Sickle Cell. Pt has [facility] for insurance and his PCP was just established with Jen Albarran with [facility]. EMR was reviewed. 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 Pt was recently admitted in Jun 2024 for sickle cell complications and discharged home and then admitted again 07/31/24 and left AMA and with multiple ED visits. Per PCP office, they are not contracted with his Coordinated Care but GERBER Li still saw him at his first appointment and he was given the number to change his insurance from [facility] to [employer], [employer], or [employer] before they can schedule him again. MARCELO met bedside with pt and explained role and pt confirms that he is still living in [place] with his Sig Other and independent with ADLs and confirms he went to his establish care appointment with Jen and meant to call to switch his insurance but just forgot. Pt states he still has the number in his wallet and confirms that he would like to stay established with Jen and SW encouraged him to call the number today and provided a list of the options for switch. MARCELO updated the TCM group so that pt can be scheduled for post admission follow up once he switches his [facility]inated Care. Pt preference is to d/c home via Sig Other POV when medically stable and does not anticipate any needs at this time. VISHNU Ballard Discharge Planning/Care Management CM Discharge Assessment Start: 08/05/24 13:13 Freq: Status: Active Protocol: Document 08/05/24 13:13 BF (Rec: 08/05/24 13:15 BF [id number]) Discharge Planning Assessment Assigned Sales And Catering Coordinator VISHNU Temple DPOA/Assigned Designee Name none Advance Directives? No Advance Directives on File No History Provided By Patient,Medical Record Has Patient been admitted in last 30 Yes days? Comment left AMA on 07/31/24 and had prior admission in Jun 2024 and multiple ED visits Prior Living Arrangements Apartment/Condo Household Members significant other Type of transporation used prior to Drives own vehicle admit Independent with ADL's Yes Is patient alert and oriented? Yes Caregiver for Another No Barriers to Discharge No Discharge Plan Home Transportation Arrangement Sig Other to transport Referrals Initiated None needed Whiteboard Updated in Patient Room with Yes name and ext. # of Sales And Catering Coordinator Review Status In Process Please Provide Date Initial DC 08/05/24 Assessment Was Performed Next Review Type Continued Stay Review
[2024-08-05] MEDS: SODIUM CHLORIDE 0.9% FLUSH 10 ML IV ×2 (18:52→21:00)
[2024-08-05 20:00] VITALS: BP 106/68; PULSE 88; RESP 12; TEMP 36.3; O2SAT 95
[2024-08-05] MEDS: HYDROMORPHONE 1 MG INJ 0.5 MG IV (23:52)
[2024-08-06] MEDS: OXYCODONE IR 10 MG TABLET PO (01:14)
[2024-08-06] MEDS: HYDROMORPHONE 1 MG INJ 0.5 MG IV (05:55)
[2024-08-06 07:00] VITALS: BP 120/71; PULSE 106; RESP 18; TEMP 36.7; O2SAT 97
[2024-08-06] MEDS: HYDROMORPHONE 1 MG INJ IV (09:05)
[2024-08-06] MEDS: PENICILLIN VK 250 MG TABLET PO (09:05)
[2024-08-06] MEDS: ENOXAPARIN 40 MG/0.4 ML SYRINGE SUBCUT (09:05)
[2024-08-06] MEDS: SODIUM CHLORIDE 0.9% FLUSH 10 ML IV (09:06)
--- NOTE | 2024-08-06 11:04 | PC.NURSE ---
Patient given 1mg of iv dilaudid for discomfort, he states that he is feeling better. Eating a bit of breakfast. Resting comfortably.
--- NOTE | 2024-08-06 12:03 | PM.DS.1 ---
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 He was seen in the emergency department July 31 with complaints of hip, back, and arm pain. He was treated in the emergency department with IV fluids, antiemetics, and pain medications. He was discharged home with oral oxycodone. He returned to the emergency department on August 01 with a primary complaint of chest pain. Lab work did not show any significant change. He underwent a chest x-ray which showed no acute infiltrate. He was given IV fluids, several doses of IV pain medication, and felt improved. He subsequently discharged home with instructions to continue the previously prescribed medications. He was seen in the clinic for follow-up on August 01 to establish care. During that visit, he was significantly uncomfortable and was referred back to the ED for reassessment. He again received IV pain medication which improved his pain and he felt he could manage further at home. He returned to the emergency department yesterday with chest pain. He had complained of 3 days of dry cough and pain to the bilateral anterior chest. He denied a previous history of acute chest syndrome. Respiratory viral panel was negative. Chest x-ray was negative. He was felt to have a viral URI and was given a prescription for an albuterol inhaler. He was advised to return if his symptoms did not improve. He returned today complaining having no improvement. He continues to have anterior chest pain and stated he felt worse today. Admission was recommended. He tells me he has not been having any upper respiratory infection symptoms. He states he has not had a cough, but if he happens to cough he has chest pain. He states it does hurt to take a deep breath. He has not had a sore throat, headache, rhinorrhea or other ill symptoms. No fevers. He has not had any ill exposures. Discharge Providers Provider Date of admission: 08/04/24 11:18 Discharge Date: 08/06/24 Primary care physician: OSMANY Wang- Consults: None. Discharge provider: Arslan Belcher MD Summary Hospital Course Discharge Diagnosis: 1. Sickle cell disease with presumed acute chest syndrome, improved. 2. Leukocytosis, stable. -He is post splenectomy. Unclear what his vaccination status is. 3. Remote stroke at the age of 1 secondary to sickle cell disease Hemiparesis is at baseline. 4. Anemia, secondary to sickle cell disease Hemoglobin is stable at 10.1. Reticulocyte is stable at 8.5%. Total bilirubin stable at 2.0. Hospital Course: He was admitted and treated for sickle crisis with pain medications. He required oral and IV pain medications. He was also fluid resuscitated. On the day of discharge she was at baseline. He has had a multitude of ER visits over the last year, reports were reviewed. He averages 5-6 visits a month. He would recently moved up from [facility]. He did have multiple ER visits prior to being admitted. Discussed with him, his upcoming referral to Hematology as well as the idea of pain Clinic given his ongoing frequent exacerbations. He had no recent symptoms of infection and had no fevers in the hospital. Status at Discharge Cognitive/behavioral status at discharge: oriented Functional status at discharge: independent ambulation Overall status at discharge: patient is back to baseline Time Spent with Patient Time spent: Greater than 30 minutes Exam Vital Signs (past 8 hours): Oxygen Delivery Method Room Air Oxygen Flow Rate 0 Narrative Exam Narrative: NAD, alert and oriented. Fluent speech. Lungs are clear, normal rate and effort. Heart is regular, no murmur gallop or rub. Abdomen is soft, non distended. Extremities are free of edema. Contracted left arm. Objective Labs 08/05/24 06:25 08/05/24 06:25 [facility] Medical History Avascular necrosis of bone Contracture, left elbow Contracture, left hand CVA (cerebral vascular accident) Sickle cell anemia Surgical History History of shoulder surgery 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 Family History Father Cancer Sickle cell trait Mother Sickle cell trait Social History household members: significant other Smoking Status: Never smoker alcohol intake: never Discharge Assessment & Plan Assessment and Plan Assessment: 1. Sickle cell disease with presumed acute chest syndrome, improved. 2. Leukocytosis, stable. -He is post splenectomy. Unclear what his vaccination status is. 3. Remote stroke at the age of 1 secondary to sickle cell disease Hemiparesis is at baseline. 4. Anemia, secondary to sickle cell disease Hemoglobin is stable at 10.1. Reticulocyte is stable at 8.5%. Total bilirubin stable at 2.0. Plan of Treatment: Discharge with a small amount of Percocet, he will follow up with PCP and follow through with his referrals to Hematology. Recommend referral to pain clinic as well. Discharge Plan Discharge Plan Patient Disposition: Home Provider Discharge Comment: Stable for discharge home, close follow up with PCP. Discharge orders & Medications Prescriptions: Continued penicillin V potassium 250 mg tablet 250 mg PO BID Qty: 30 0RF doxycycline hyclate 100 mg Tablet 100 mg PO BID Qty: 14 0RF ondansetron 4 mg tablet,disintegrating 4 mg PO Q8H PRN (Reason: nausea and vomiting) Qty: 20 0RF naloxone [Narcan] 4 mg/actuation spray,non-aerosol 4 mg intranasal Q2M PRN (Reason: opioid overdose) Qty: 2 0RF Rx Instructions: spray 1 dose into ONE nostril; alternate nostrils w each dose until help arrives amoxicillin-pot clavulanate 875-125 mg tablet 1 tab PO BID Qty: 20 0RF albuterol sulfate 90 mcg/actuation HFA aerosol inhaler 2 puff inhalation Q6H PRN (Reason: shortness of breath or wheezing) Qty: 8.5 0RF hydrocodone-acetaminophen 5-325 mg tablet 1 tab PO Q6H PRN (Reason: pain) Qty: 14 0RF oxycodone-acetaminophen [Percocet] 5-325 mg tablet 1 tab PO Q4-6H PRN (Reason: pain) Qty: 16 0RF hydroxyurea (sickle cell) 200 mg capsule 200 mg PO DAILY Qty: 30 0RF Follow up/Referrals: Jen Albarran FNP-JESÚS [Primary Care Provider] - Discharge Health Status Multidrug resistant organism: No MDRO Diet/Activity/Treatments Diet: Regular Visit Report/Discharge Packet Instructions: DI for Sickle Cell Anemia, Pain Crisis -- Adult, DI for Prescription Opioid Use Stand Alone Forms: Patient Portal/API Discharge Data Primary Care Provider: Jen Albarran Attending Provider: Willa Petersen Admit Date/Time: 08/04/24 11:18 Quality MIPS - DC The patient has current or prior documentation of left ventricular ejection fraction (LVEF) less than or equal to 40%, or moderate or severely depressed left ventricular systolic function.: No
--- NOTE | 2024-08-06 12:33 | CM.DPNOTE ---
DCP note MILK HOUSE WORKER reviewed EMR. Per provider in morning rounds, likely to dc today. Provider interested in pt's ED visit trend, MILK HOUSE WORKER provided a copy of ED visits from past 24 months with [facility]. MILK HOUSE WORKER met with pt in room. Eager to dc home. MILK HOUSE WORKER provided pt with signed work excuse letter. Pt appreciative. Pt plans to call right now to change insurances to follow up with PCP Jen Albarran. Denies other needs or questions. plans to walk home (lives two blocks away) MILK HOUSE WORKER messaged TCM team that pt is discharging today and he is working on changing his insurance at this time. P: home today with sig other support, and OP f/u pending changing insurances. CM team will continue to follow as needed VISHNU Thacker
== END 2024-08-06 13:10 | disposition home or self-care (01) ==
LOC: ED 11:15 → AC 11:19
PROVIDERS: Admitting Provider Family Medicine; Emergency Provider Emergency Medicine; PCP Nurse Practitioner Family; Referring Provider Emergency Medicine; Visit Provider Family Medicine
DX: D57.1 Sickle-cell disease without crisis (principal); D63.8 Anemia in other chronic diseases classified elsewhere; R07.9 Chest pain, unspecified; D72.829 Elevated white blood cell count, unspecified; I69.359 Hemiplegia and hemiparesis following cerebral infarction affecting unspecified side
CPT/HCPCS: 36415; 71045; 80053; 82550; 83690; 84484; 85007; 85025; 85045; 93005; 96361; 96365; 96366; 96372; 96375; 96376; 99284; G0378; J1171; J1650; J2270; J2405

== ENCOUNTER 2024-08-24 16:27 | Emergency (ER) | payer BC, OTHER, SELFPAY ==
[2024-08-24 16:49] VITALS: BP 113/67; PULSE 89; RESP 16; TEMP 36.8; O2SAT 99; BMI 19.3
--- NOTE | 2024-08-24 17:36 | ED_ITS ---
HPI - Extremity Problem <GERBER Quezada - Last Filed: 08/24/24 18:23> General Chief complaint: Extremity Problem,Nontraumatic Stated complaint: rt hip pain, has a spacer in hip Time Seen by Provider: 08/24/24 17:17 Source: patient Mode of arrival: Family Vehicle History of Present Illness HPI Narrative: 24-year-old male, nonsmoker, with history of stroke at age 1 with left sided deficit, and sickle cell disease,presents with a chief complaint of right hip pain. 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 He denies any trauma or injury but states that he was on his feet at work and over the course of the day he developed increasing pain with standing and ambulation. Patient let his pain medication prescription and does not have any at home. He denies any chest pain or shortness of breath. Denies any chest or back pain. He denies numbness, tingling or weakness. Related Data Previous Rx's Medication Instructions Recorded hydroxyurea (sickle cell) 200 mg 200 mg PO DAILY #30 caps 07/01/23 capsule doxycycline hyclate 100 mg tablet 100 mg PO BID #14 tabs 07/28/24 penicillin V potassium 250 mg 250 mg PO BID #30 tabs 07/28/24 tablet naloxone 4 mg/actuation nasal 4 mg intranasal Q2M PRN opioid 07/31/24 spray (Narcan) overdose #2 ea ondansetron 4 mg disintegrating 4 mg PO Q8H PRN nausea and 07/31/24 tablet vomiting #20 tabs albuterol sulfate 90 mcg/actuation 2 puff inhalation Q6H PRN 08/03/24 aerosol inhaler shortness of breath or wheezing #8.5 grams amoxicillin 875 mg-potassium 1 tab PO BID #20 tabs 08/03/24 clavulanate 125 mg tablet hydrocodone 5 mg-acetaminophen 325 1 tab PO Q6H PRN pain #14 tabs 08/03/24 mg tablet oxycodone-acetaminophen 5 mg-325 1 tab PO Q4-6H PRN pain #16 tabs 08/06/24 mg tablet (Percocet) oxycodone-acetaminophen 5 mg-325 1 tab PO Q6H PRN pain #10 tabs 08/24/24 mg tablet Allergies Allergy/AdvReac Type Severity Reaction Status Date / Time No Known Drug Allergies Allergy Verified 08/01/24 11:25 Review of Systems <GERBER Quezada - Last Filed: 08/24/24 18:23> Review of Systems Narrative: Narrative: See HPI. GENERAL: Denies chills, fatigue, fever, sweats. HEENT: Denies sinus pain, ear pain, sore throat, difficulty swallowing, dizziness. RESPIRATORY: Denies dyspnea, cough, wheezing, sputum. CARDIOVASCULAR: Denies chest pain, palpitations, edema. GASTROINTESTINAL: Denies nausea, vomiting, abdominal pain, diarrhea, constipation. : Denies dysuria, frequency, incontinence, hematuria, urinary retention, flank pain, loss of control of bowel or bladder. MSK: Denies weakness. Endorses right hip pain. SKIN: Denies rash, skin lesions, or pruritis. NEUROLOGIC: Denies weakness, dizziness, headache, numbness, confusion. Patient History <GERBER Quezada - Last Filed: 08/24/24 18:23> Medical History Avascular necrosis of bone Contracture, left elbow Contracture, left hand CVA (cerebral vascular accident) Sickle cell anemia Surgical History History of shoulder surgery 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 Family History Father Cancer Sickle cell trait Mother Sickle cell trait Social History household members: significant other Smoking Status: Never smoker alcohol intake: never Smoking Status: Never smoker alcohol intake frequency: holidays/special occasions only Exam <GERBER Quezada - Last Filed: 08/24/24 18:23> Narrative Exam Narrative: Exam Narrative: GENERAL: This is a well-nourished, well-developed patient, in no acute distress. HEAD: Atraumatic. Normocephalic. EYES: Pupils equal round and reactive. ENT: Nose without bleeding, purulent drainage. Airway patent. CARDIOVASCULAR: Regular rate and rhythm without murmurs, peripheral pulses intact, cap refill <2 sec. RESPIRATORY: Breath sounds equal and clear bilaterally. No wheezes, rales, or rhonchi. No cough. No increased respiratory effort. No accessory muscle use. MSK: Moves all extremities. Normal range of motion, no clubbing or edema. Neurovascularly intact. NEURO: A&O x 3. SKIN: Warm, dry, no rashes or lesions noted. Hip: There is no obvious deformity. There is no redness, swelling or wound. Able to bear weight on each leg independently, but with significant pain on right. Non-tender over the greater trochanter, ischial spine or SI joint. Active flexion and extension as well as lateral excursion are limited due to pain. There is no pain along the ilio-tibial band. Internal and external rotation is within normal range Initial Vital Signs Initial Vital Signs: Vital Signs Temperature 98.2 F 08/24/24 16:49 Pulse Rate 89 08/24/24 16:49 Respiratory Rate 16 08/24/24 16:49 Blood Pressure 113/67 08/24/24 16:49 Pulse Oximetry 99 08/24/24 16:49 Oxygen Delivery Method Room Air 08/24/24 16:49 Reviewed <Abebe Espinoza DO - Last Filed: 08/24/24 19:15> Initial Vital Signs Initial Vital Signs: Vital Signs Temperature 98.2 F 08/24/24 16:49 Pulse Rate 89 08/24/24 16:49 Respiratory Rate 16 08/24/24 16:49 Blood Pressure 113/67 08/24/24 16:49 Pulse Oximetry 99 08/24/24 16:49 Oxygen Delivery Method Room Air 08/24/24 16:49 Course <GERBER Quezada - Last Filed: 08/24/24 18:23> Orders Ordered: Discontinued Medications Hydromorphone HCl (Hydromorphone 1 Mg Inj) 1 mg IM NOW ONE Stop: 08/24/24 17:41 Last Admin: 08/24/24 17:47 Dose: 1 mg Documented By: Vital Signs Vital signs: Vital Signs - 8 hr 08/24/24 16:49 08/24/24 17:55 Temperature 98.2 F Pulse Rate 89 91 H Respiratory Rate 16 18 Blood Pressure 113/67 104/55 L Pulse Oximetry 99 98 Oxygen Delivery Method Room Air Room Air <DO Yue Champion Last Filed: 08/24/24 19:15> Orders Ordered: Discontinued Medications Hydromorphone HCl (Hydromorphone 1 Mg Inj) 1 mg IM NOW ONE Stop: 08/24/24 17:41 Last Admin: 08/24/24 17:47 Dose: 1 mg Documented By: Vital Signs Vital signs: Vital Signs - 8 hr 08/24/24 16:49 08/24/24 17:55 Temperature 98.2 F Pulse Rate 89 91 H Respiratory Rate 16 18 Blood Pressure 113/67 104/55 L Pulse Oximetry 99 98 Oxygen Delivery Method Room Air Room Air MDM - Extremity (Nontraumatic) <GERBER Quezada - Last Filed: 08/24/24 18:23> Differential Diagnosis Differential diagnosis: Likely other (Right hip pain, avascular necrosis) MDM Narrative Medical decision making narrative: 24-year-old male with history of spacer placed in right hip secondary to avascular necrosis, presents to the emergency department with worsening pain today. Patient reports that he had a previous prescription for pain medication, but due to his work schedule allowed it to , and does not have any pain medication at home. Review of chart reveals previous visits to the ED resolved with IM hydromorphone and short prescription of pain medication. As there was no mechanism of injury, x-rays were not obtained at this time. Discussed plan of care and return precautions with patient, who verbalized understanding and was agreeable with course of action. Discharge Plan Departure Patient Disposition: Home Clinical Impression: Acute pain of right hip Instructions: DI for Hip Pain Activity Restrictions/Additional Instructions: *You have been diagnosed with right hip pain. We have given you a injection of Dilaudid that should help with your symptoms tonight. I have sent a short prescription for pain medication that you can use as needed. When you get home, you should rest your hip and apply hot or cold compress to the affected area for comfort. For any worsening symptoms, please feel free to return to the emergency department. Otherwise, follow up with your family doctor as needed. *What to do: *Please continue to take your regular medications as directed. [x ] New medication prescriptions sent to your pharmacy: [[facility]] [ ] New medication written as a paper prescription [ ] No new medications given *Please follow up with your primary care provider in 2-3 days, call for an appointment. Let them know you were seen in the Emergency Department and that we ask that you be seen in follow up. We will electronically transmit a record of today's note if your PCP is in our system *If you do not have a primary care provider please contact the [facility] Resource line at [phone]. They will ask some questions about your medical history and help get you set up with a doctor in the community. ? Return to ER if you should have any new, worsening or concerning symptoms, such as worsening pain, severe headache, confusion, chest pain, difficulty breathing, fever greater than 101 F, shaking chills, persistent vomiting to the point that you cannot drink fluids, or other new or worsening symptoms. Prescriptions: New oxycodone-acetaminophen 5-325 mg tablet 1 tab PO Q6H PRN (Reason: pain) Qty: 10 0RF No Action penicillin V potassium 250 mg tablet 250 mg PO BID Qty: 30 0RF doxycycline hyclate 100 mg Tablet 100 mg PO BID Qty: 14 0RF ondansetron 4 mg tablet,disintegrating 4 mg PO Q8H PRN (Reason: nausea and vomiting) Qty: 20 0RF naloxone [Narcan] 4 mg/actuation spray,non-aerosol 4 mg intranasal Q2M PRN (Reason: opioid overdose) Qty: 2 0RF Rx Instructions: spray 1 dose into ONE nostril; alternate nostrils w each dose until help arrives amoxicillin-pot clavulanate 875-125 mg tablet 1 tab PO BID Qty: 20 0RF albuterol sulfate 90 mcg/actuation HFA aerosol inhaler 2 puff inhalation Q6H PRN (Reason: shortness of breath or wheezing) Qty: 8.5 0RF hydrocodone-acetaminophen 5-325 mg tablet 1 tab PO Q6H PRN (Reason: pain) Qty: 14 0RF oxycodone-acetaminophen [Percocet] 5-325 mg tablet 1 tab PO Q4-6H PRN (Reason: pain) Qty: 16 0RF hydroxyurea (sickle cell) 200 mg capsule 200 mg PO DAILY Qty: 30 0RF Referrals: Jen Albarran FNP-BC [Primary Care Provider] - Stand Alone Forms: Patient Portal/API/Survey, Work Release Note ED Sign-out <Abebe Espinoza, DO - Last Filed: 08/24/24 19:15> Cosign ED Attending Cosignature Attestation: Dr Espinoza Co-Sign Statement: I was available for consultation during this patient's emergency department visit. This chart is signed by myself for administrative purposes only. I did not have direct contact with this patient during this visit. They were seen independently by the [facility].
[2024-08-24] MEDS: HYDROMORPHONE 1 MG INJ IM (17:47)
[2024-08-24 17:55] VITALS: BP 104/55; PULSE 91; RESP 18; O2SAT 98
== END 2024-08-24 17:56 | disposition home or self-care (01) ==
PROVIDERS: Emergency Provider Registered Nurse; PCP Nurse Practitioner Family
DX: M25.551 Pain in right hip (principal)
CPT/HCPCS: 96372; 99283; J1171

== ENCOUNTER 2024-08-30 23:52 | Emergency (ER) | payer OTHER, SELFPAY ==
[2024-08-30 23:59] VITALS: BP 119/63; PULSE 69; RESP 18; TEMP 36.1; O2SAT 94
[2024-08-31] VITALS (7 sets, daily range): BP systolic 102–119; BP diastolic 58–63; PULSE 61–75; RESP 16–17; O2SAT 93–99
[2024-08-31 00:27] LABS: Hematocrit 29.9 % (41-53); Mean Corpuscular HGB Conc 33.4 % (30-36); Mean Corpuscular Hemoglobin 24.7 PG (26-34); Platelet Count 275 X10^3/uL (150-400); Red Blood Cell Count 4.05 X10^6/uL (4.5-5.9); Red Cell Distribution Width 19.4 % (11.6-14.8); White Blood Cell Count 11.5 X10^3/uL (4.5-11.0)
[2024-08-31] MEDS: KETOROLAC 30 MG/ML VIAL 15 MG IV (00:28)
--- NOTE | 2024-08-31 00:28 | ED.BACK ---
HPI - Back Pain/Injury General Chief Complaint: Back Pain/Injury Stated Complaint: Sickle cell crisis Time Seen by Provider: 08/30/24 23:53 Source: patient History of Present Illness HPI Narrative: 24-year-old male with history of sickle cell disease, left-sided upper extremity hemiparesis presents for low back pain similar to previous sickle cell flares. States he has been taking his home medications as prescribed, but due to changes in his insurance he does not have the ability to make a primary care appointment until the 14 of September. He states that he was sitting at home when he felt pain across his low back similar to the beginnings of previous sickle cell flare-ups. He took some Tylenol which did not improve his symptoms and came to the emergency department for evaluation. Denies other complaints at this time. Related Data Previous Rx's Medication Instructions Recorded hydroxyurea (sickle cell) 200 mg 200 mg PO DAILY #30 caps 07/01/23 capsule doxycycline hyclate 100 mg tablet 100 mg PO BID #14 tabs 07/28/24 penicillin V potassium 250 mg 250 mg PO BID #30 tabs 07/28/24 tablet naloxone 4 mg/actuation nasal 4 mg intranasal Q2M PRN opioid 07/31/24 spray (Narcan) overdose #2 ea ondansetron 4 mg disintegrating 4 mg PO Q8H PRN nausea and 07/31/24 tablet vomiting #20 tabs albuterol sulfate 90 mcg/actuation 2 puff inhalation Q6H PRN 08/03/24 aerosol inhaler shortness of breath or wheezing #8.5 grams amoxicillin 875 mg-potassium 1 tab PO BID #20 tabs 08/03/24 clavulanate 125 mg tablet hydrocodone 5 mg-acetaminophen 325 1 tab PO Q6H PRN pain #14 tabs 08/03/24 mg tablet oxycodone-acetaminophen 5 mg-325 1 tab PO Q4-6H PRN pain #16 tabs 08/06/24 mg tablet (Percocet) oxycodone-acetaminophen 5 mg-325 1 tab PO Q6H PRN pain #10 tabs 08/24/24 mg tablet Allergies Allergy/AdvReac Type Severity Reaction Status Date / Time No Known Drug Allergies Allergy Verified 08/01/24 11:25 Patient History Medical History PTSD (post-traumatic stress disorder) Depression Anxiety Seizure Anemia Avascular necrosis of bone Contracture, left elbow Contracture, left hand CVA (cerebral vascular accident) Sickle cell anemia Surgical History History of shoulder surgery 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 Family History Father Cancer Sickle cell trait Lupus Mother Sickle cell trait Brother Sickle cell trait Social History household members: significant other Smoking Status: Never smoker alcohol intake: never Smoking Status: Never smoker alcohol intake frequency: holidays/special occasions only Exam Initial Vital Signs Initial Vital Signs: Vital Signs Temperature 97 F L 08/30/24 23:59 Pulse Rate 69 08/30/24 23:59 Respiratory Rate 18 08/30/24 23:59 Blood Pressure 119/63 08/30/24 23:59 Pulse Oximetry 94 08/30/24 23:59 Oxygen Delivery Method Room Air 08/30/24 23:59 Const: Awake, alert, no acute distress, nontoxic appearing Cardiac: regular rate, regular rhythm RESP: unlabored, clear bilaterally, no wheezing Skin: Warm, Dry, intact, no rashes Neuro: AO x3, CN II-XII grossly intact, chronic LUE contractions Course Orders Ordered: ED Orders 08/31/24 00:17 CBC Auto Diff [Complete Blood Count AUTO DIFF] Stat CMP [Comprehensive Metabolic Panel] Stat RETIC [Reticulocyte Count, Percent] Stat Discontinued Medications Hydromorphone HCl (Hydromorphone 1 Mg Inj) 1 mg IV NOW ONE Stop: 08/31/24 00:06 Last Admin: 08/31/24 00:29 Dose: 1 mg Documented By: MECHE Hydromorphone HCl (Hydromorphone 1 Mg Inj) 1 mg IV NOW ONE Stop: 08/31/24 01:36 Last Admin: 08/31/24 01:49 Dose: 1 mg Documented By: TUNG Acetaminophen (Ofirmev) 1,000 mg in 100 mls @ 400 mls/hr IV NOW ONE Stop: 08/31/24 00:18 Last Infusion: 08/31/24 00:52 Dose: Infused Documented By: Admin: 08/31/24 00:29 Dose: 400 mls/hr Documented By: MECHE Sodium Chloride (Normal Saline 0.9%) 1,000 mls @ 1,000 mls/hr IV BOLUS ONE Stop: 08/31/24 01:03 Last Infusion: 08/31/24 01:32 Dose: Infused Documented By: Admin: 08/31/24 00:30 Dose: 1,000 mls/hr Documented By: MECHE Ketorolac Tromethamine (Ketorolac 30 Mg/Ml Vial) 15 mg IV NOW ONE Stop: 08/31/24 00:05 Last Admin: 08/31/24 00:28 Dose: 15 mg Documented By: MECHE Vital Signs Vital signs: Vital Signs - 8 hr 08/30/24 23:59 08/31/24 00:27 08/31/24 00:30 Temperature 97 F L Pulse Rate 69 69 71 Respiratory Rate 18 Blood Pressure 119/63 Pulse Oximetry 94 99 97 Oxygen Delivery Method Room Air 08/31/24 00:39 08/31/24 00:39 08/31/24 01:00 Temperature Pulse Rate 75 Respiratory Rate 17 Blood Pressure 108/59 L 106/63 Pulse Oximetry 97 Oxygen Delivery Method Room Air 08/31/24 01:00 08/31/24 01:30 08/31/24 01:30 Temperature Pulse Rate 61 65 Respiratory Rate Blood Pressure 102/60 Pulse Oximetry 98 98 Oxygen Delivery Method 08/31/24 02:00 08/31/24 02:00 08/31/24 02:30 Temperature Pulse Rate 72 Respiratory Rate Blood Pressure 111/58 L 119/58 L Pulse Oximetry 93 Oxygen Delivery Method 08/31/24 02:30 Temperature Pulse Rate 65 Respiratory Rate 16 Blood Pressure Pulse Oximetry 99 Oxygen Delivery Method Room Air MDM - Back Pain/Injury Lab Data 08/31/24 00:17 08/31/24 00:17 Labs: Lab Results 08/31/24 Range/Units 00:17 WBC 11.5 H (4.5-11.0) X10^3/uL RBC 4.05 L (4.5-5.9) X10^6/uL Hgb 10.0 L (13.5-17.5) g/dL Hct 29.9 L (41-53) % MCV 74.0 L (80-100) fL MCH 24.7 L (26-34) PG MCHC 33.4 (30-36) % RDW 19.4 H (11.6-14.8) % Plt Count 275 (150-400) X10^3/uL Neut % (Auto) Not Reportable Lymph % (Auto) Not Reportable [place] % (Auto) Not Reportable Eos % (Auto) Not Reportable Baso % (Auto) Not Reportable Lymph # (Auto) Not Reportable [place] # (Auto) Not Reportable Baso # (Auto) Not Reportable Total Counted 100 Seg Neutrophils % 68.0 (38-70) % Band Neutrophils % 2.0 L (3-7) % Lymphocytes % (Manual) 19.0 L (25-45) % Atypical Lymphs % 2.0 H ( - 0) % Monocytes % (Manual) 9.0 (2-11) % Neutrophils # (Manual) 8050 H (4747-1076) /uL Nucleated RBCs 4 H ( - 0) #/Diff RBC Morphology See below Hypochromasia 1+ H Anisocytosis 2+ H Microcytosis 1+ H Macrocytosis 1+ H Sickle Cells 1+ H Target Cells 2+ H Schistocytes 1+ H Percent Retic 6.2 H (0.9-2.6) % Sodium 137 (137-145) mmol/L Potassium 3.6 (3.4-5.1) mmol/L Chloride 107 (98-107) mmol/L Carbon Dioxide 22 (22-32) mmol/L BUN 5 L (9-20) mg/dL Creatinine 0.69 (0.66-1.25) mg/dL Estimated GFR > 60 (>60) mL/min BUN/Creatinine Ratio 7.2 (6-22) Glucose 101 H (70-100) mg/dL Calcium 8.8 (8.4-10.2) mg/dL Total Bilirubin 2.0 H (0.2-1.3) mg/dL AST 40 (17-59) IU/L ALT 21 (<50) IU/L Alkaline Phosphatase 89 (38-126) U/L Total Protein 9.0 H (6.3-8.2) g/dL Albumin 4.8 (3.5-5.0) g/dL Globulin 4.2 H (1.7-4.1) g/dL Albumin/Globulin Ratio 1.1 (1.0-2.8) MDM Narrative Medical decision making narrative: Well-appearing patient with sickle cell disease flare-up similar to previous. Nontoxic in appearance, vitals unremarkable. Patient received 2 doses of medications with improvement in symptoms. His laboratory work is consistent with multiple previous values. Patient stated that he felt better enough and would like to go home. He says that he was plenty of medications left at home to help manage his symptoms. ED return precautions discussed. Discharge Plan Departure Patient Disposition: Home Clinical Impression: Sickle cell disease with crisis Instructions: DI for Low Back Pain Activity Restrictions/Additional Instructions: Continue to take all of your normal home medications as prescribed. When your insurance activate make sure you make a follow up appointment with a primary care doctor. Prescriptions: No Action penicillin V potassium 250 mg tablet 250 mg PO BID Qty: 30 0RF doxycycline hyclate 100 mg Tablet 100 mg PO BID Qty: 14 0RF ondansetron 4 mg tablet,disintegrating 4 mg PO Q8H PRN (Reason: nausea and vomiting) Qty: 20 0RF naloxone [Narcan] 4 mg/actuation spray,non-aerosol 4 mg intranasal Q2M PRN (Reason: opioid overdose) Qty: 2 0RF Rx Instructions: spray 1 dose into ONE nostril; alternate nostrils w each dose until help arrives amoxicillin-pot clavulanate 875-125 mg tablet 1 tab PO BID Qty: 20 0RF albuterol sulfate 90 mcg/actuation HFA aerosol inhaler 2 puff inhalation Q6H PRN (Reason: shortness of breath or wheezing) Qty: 8.5 0RF hydrocodone-acetaminophen 5-325 mg tablet 1 tab PO Q6H PRN (Reason: pain) Qty: 14 0RF oxycodone-acetaminophen [Percocet] 5-325 mg tablet 1 tab PO Q4-6H PRN (Reason: pain) Qty: 16 0RF oxycodone-acetaminophen 5-325 mg tablet 1 tab PO Q6H PRN (Reason: pain) Qty: 10 0RF hydroxyurea (sickle cell) 200 mg capsule 200 mg PO DAILY Qty: 30 0RF Referrals: Jen Albarran, [facility]-BC [Primary Care Provider] - Stand Alone Forms: Patient Portal/API/Survey
[2024-08-31] MEDS: HYDROMORPHONE 1 MG INJ IV ×2 (00:29→01:49)
[2024-08-31] MEDS: ACETAMINOPHEN IV 1,000 MG/100 ML VIAL 400 MG IV (00:29)
[2024-08-31] MEDS: SODIUM CHLORIDE 0.9% 1,000 ML 1000 ML IV (00:30)
[2024-08-31 00:31] LABS: Add Manual Diff / Slide Review YES
[2024-08-31 00:36] LABS: Reticulocyte Count, Percent 6.2 % (0.9-2.6)
[2024-08-31 00:37] LABS: Alanine Aminotransferase 21 IU/L (<50); Albumin 4.8 g/dL (3.5-5.0); Albumin Globulin Ratio 1.1 (1.0-2.8); Alkaline Phosphatase 89 U/L (38-126); Aspartate Aminotransferase 40 IU/L (17-59); BUN Creatinine Ratio 7.2 (6-22); Blood Urea Nitrogen 5 mg/dL (9-20); Calcium 8.8 mg/dL (8.4-10.2); Carbon Dioxide 22 mmol/L (22-32); Chloride 107 mmol/L (98-107); Estimated Glomerular Filt Rate > 60 mL/min (>60); Globulin 4.2 g/dL (1.7-4.1); Glucose 101 mg/dL (70-100); HEMOLYSIS < 15 (0-50); Potassium 3.6 mmol/L (3.4-5.1); Sodium 137 mmol/L (137-145)
[2024-08-31 00:53] LABS: Neutrophils Absolute Manual 8050 /uL (3000-5900); Nucleated Red Blood Cells 4 #/Diff; Total Cells Counted 100
[2024-08-31 00:57] LABS: Anisocytosis 2+; Hypochromasia 1+; Macrocytosis 1+; Microcytosis 1+; Sickle Cells 1+; Target Cells 2+
[2024-08-31 00:58] LABS: Schistocytes 1+
--- NOTE | 2024-08-31 02:34 | PC.NURSE ---
Pt requesting to go home at this time. Dr. Gomes made aware.
== END 2024-08-31 02:44 | disposition home or self-care (01) ==
PROVIDERS: Emergency Provider Emergency Medicine; PCP Nurse Practitioner Family
DX: D57.00 Hb-SS disease with crisis, unspecified (principal); M54.50 Low back pain, unspecified
CPT/HCPCS: 36415; 80053; 85007; 85025; 85045; 96361; 96365; 96375; 96376; 99284; J0134; J1171; J1885

== ENCOUNTER 2024-09-01 00:39 | Emergency (ER) | payer OTHER, SELFPAY ==
[2024-09-01] VITALS (8 sets, daily range): BP systolic 105–123; BP diastolic 55–72; PULSE 59–91; RESP 14–16; TEMP 36.9; O2SAT 96–99
--- NOTE | 2024-09-01 00:49 | ED_ITS ---
HPI - Back Pain/Injury General Chief Complaint: Back Pain/Injury Stated Complaint: HERE LAST NIGHT; BACK PAIN WORSE Time Seen by Provider: 09/01/24 00:40 History of Present Illness HPI Narrative: 24yoM presents for sickle cell back pain. 31st visit in 12 months. Seen multiple times for similar. Took oxycodone at home without relief. In ED for same yesterday, left after reported feeling better. Related Data Previous Rx's Medication Instructions Recorded hydroxyurea (sickle cell) 200 mg 200 mg PO DAILY #30 caps 07/01/23 capsule doxycycline hyclate 100 mg tablet 100 mg PO BID #14 tabs 07/28/24 penicillin V potassium 250 mg 250 mg PO BID #30 tabs 07/28/24 tablet naloxone 4 mg/actuation nasal 4 mg intranasal Q2M PRN opioid 07/31/24 spray (Narcan) overdose #2 ea ondansetron 4 mg disintegrating 4 mg PO Q8H PRN nausea and 07/31/24 tablet vomiting #20 tabs albuterol sulfate 90 mcg/actuation 2 puff inhalation Q6H PRN 08/03/24 aerosol inhaler shortness of breath or wheezing #8.5 grams amoxicillin 875 mg-potassium 1 tab PO BID #20 tabs 08/03/24 clavulanate 125 mg tablet hydrocodone 5 mg-acetaminophen 325 1 tab PO Q6H PRN pain #14 tabs 08/03/24 mg tablet oxycodone-acetaminophen 5 mg-325 1 tab PO Q4-6H PRN pain #16 tabs 08/06/24 mg tablet (Percocet) oxycodone-acetaminophen 5 mg-325 1 tab PO Q6H PRN pain #10 tabs 25 mg tablet oxycodone-acetaminophen 5 mg-325 1 tab PO Q8H PRN pain #14 tabs 09/01/24 mg tablet Allergies Allergy/AdvReac Type Severity Reaction Status Date / Time No Known Drug Allergies Allergy Verified 08/01/24 11:25 Patient History Medical History PTSD (post-traumatic stress disorder) Depression Anxiety Seizure Anemia Avascular necrosis of bone Contracture, left elbow Contracture, left hand CVA (cerebral vascular accident) Sickle cell anemia Surgical History History of shoulder surgery 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 Family History Father Cancer Sickle cell trait Lupus Mother Sickle cell trait Brother Sickle cell trait Social History household members: significant other Smoking Status: Never smoker alcohol intake: never Smoking Status: Never smoker alcohol intake frequency: holidays/special occasions only Exam Initial Vital Signs Initial Vital Signs: Vital Signs Pulse Rate 91 H 09/01/24 00:45 Blood Pressure 118/58 L 09/01/24 00:45 Pulse Oximetry 99 09/01/24 00:45 Const: Awake, alert, no acute distress, nontoxic appearing Cardiac: regular rate, regular rhythm RESP: unlabored, clear bilaterally, no wheezing Skin: Warm, Dry, intact, no rashes Neuro: AO x3, CN II-XII grossly intact, left upper extremity contractions at baseline Course Orders Ordered: ED Orders 09/01/24 01:20 CBC Auto Diff [Complete Blood Count AUTO DIFF] Stat CMP [Comprehensive Metabolic Panel] Stat RETIC [Reticulocyte Count, Percent] Stat Discontinued Medications Hydromorphone HCl (Hydromorphone 1 Mg Inj) 1 mg IV NOW ONE Stop: 09/01/24 00:51 Last Admin: 09/01/24 01:01 Dose: 1 mg Hydromorphone HCl (Hydromorphone 1 Mg Inj) 1 mg IV NOW ONE Stop: 09/01/24 02:38 Last Admin: 09/01/24 02:43 Dose: 1 mg Acetaminophen (Ofirmev) 1,000 mg in 100 mls @ 400 mls/hr IV NOW ONE Stop: 09/01/24 01:04 Last Infusion: 09/01/24 01:31 Dose: Infused Sodium Chloride (Normal Saline 0.9%) 1,000 mls @ 1,000 mls/hr IV BOLUS ONE Stop: 09/01/24 01:49 Last Infusion: 09/01/24 01:55 Dose: Infused Ketorolac Tromethamine (Ketorolac 30 Mg/Ml Vial) 15 mg IV NOW ONE Stop: 09/01/24 00:51 Last Admin: 09/01/24 01:00 Dose: 15 mg Vital Signs Vital signs: Vital Signs - 8 hr 09/01/24 00:45 09/01/24 00:45 09/01/24 00:46 Temperature 98.4 F Pulse Rate 91 H 81 Respiratory Rate 16 Blood Pressure 118/58 L 118/58 L Pulse Oximetry 99 99 Oxygen Delivery Method Room Air 09/01/24 01:00 09/01/24 01:00 09/01/24 01:30 Temperature Pulse Rate 81 77 Respiratory Rate Blood Pressure 120/68 Pulse Oximetry 98 98 Oxygen Delivery Method Room Air Room Air 09/01/24 01:30 09/01/24 02:00 09/01/24 02:00 Temperature Pulse Rate 79 Respiratory Rate Blood Pressure 109/72 105/62 Pulse Oximetry 98 Oxygen Delivery Method Room Air 09/01/24 02:30 09/01/24 02:30 Temperature Pulse Rate 62 Respiratory Rate 14 Blood Pressure 113/67 Pulse Oximetry 97 Oxygen Delivery Method Room Air MDM - Back Pain/Injury Lab Data 09/01/24 01:20 09/01/24 01:20 Labs: Lab Results 09/01/24 Range/Units 01:20 WBC 8.6 (4.5-11.0) X10^3/uL RBC 3.58 L (4.5-5.9) X10^6/uL Hgb 8.9 L (13.5-17.5) g/dL Hct 26.3 L (41-53) % MCV 73.3 L (80-100) fL MCH 24.7 L (26-34) PG MCHC 33.7 (30-36) % RDW 19.3 H (11.6-14.8) % Plt Count 233 (150-400) X10^3/uL Neut % (Auto) Not Reportable Lymph % (Auto) Not Reportable Jack % (Auto) Not Reportable Eos % (Auto) Not Reportable Baso % (Auto) Not Reportable Lymph # (Auto) Not Reportable [place] # (Auto) Not Reportable Baso # (Auto) Not Reportable Total Counted 100 Seg Neutrophils % 53.0 (38-70) % Lymphocytes % (Manual) 33.0 (25-45) % Monocytes % (Manual) 10.0 (2-11) % Eosinophils % (Manual) 2.0 (2-4) % Basophils % (Manual) 2.0 H (0-1) % Neutrophils # (Manual) 4558 (2562-7689) /uL Nucleated RBCs 8 H ( - 0) #/Diff Smudge Cells 1+ H RBC Morphology See below Polychromasia 1+ H Anisocytosis 2+ H Microcytosis 1+ H Sickle Cells 1+ H Target Cells 2+ H Tear Drop Cells 1+ H Schistocytes 1+ H Percent Retic 5.1 H (0.9-2.6) % Sodium 136 L (137-145) mmol/L Potassium 4.0 (3.4-5.1) mmol/L Chloride 107 (98-107) mmol/L Carbon Dioxide 24 (22-32) mmol/L BUN 8 L (9-20) mg/dL Creatinine 0.70 (0.66-1.25) mg/dL Estimated GFR > 60 (>60) mL/min BUN/Creatinine Ratio 11.4 (6-22) Glucose 87 (70-100) mg/dL Calcium 8.2 L (8.4-10.2) mg/dL Total Bilirubin 2.1 H (0.2-1.3) mg/dL AST 46 (17-59) IU/L ALT 20 (<50) IU/L Alkaline Phosphatase 62 (38-126) U/L Total Protein 7.6 (6.3-8.2) g/dL Albumin 4.2 (3.5-5.0) g/dL Globulin 3.4 (1.7-4.1) g/dL Albumin/Globulin Ratio 1.2 (1.0-2.8) MDM Narrative Medical decision making narrative: Patient with sickle cell pain. Seen here multiple times previously for similar. Labs at baseline. After 2 rounds of pain medications patient stated that he was able to fall asleep, which means that he was feeling better. He did request a refill of his oxycodone, which was sent to his pharmacy of choice. Discharge Plan Departure Patient Disposition: Home Clinical Impression: Sickle cell anemia with pain Instructions: DI for Sickle Cell Anemia, Pain Crisis -- Adult Activity Restrictions/Additional Instructions: Stay hydrated by drinking plenty of fluids. Pain medications has been sent to your pharmacy. Prescriptions: New oxycodone-acetaminophen 5-325 mg tablet 1 tab PO Q8H PRN (Reason: pain) Qty: 14 0RF No Action penicillin V potassium 250 mg tablet 250 mg PO BID Qty: 30 0RF doxycycline hyclate 100 mg Tablet 100 mg PO BID Qty: 14 0RF ondansetron 4 mg tablet,disintegrating 4 mg PO Q8H PRN (Reason: nausea and vomiting) Qty: 20 0RF naloxone [Narcan] 4 mg/actuation spray,non-aerosol 4 mg intranasal Q2M PRN (Reason: opioid overdose) Qty: 2 0RF Rx Instructions: spray 1 dose into ONE nostril; alternate nostrils w each dose until help arrives amoxicillin-pot clavulanate 875-125 mg tablet 1 tab PO BID Qty: 20 0RF albuterol sulfate 90 mcg/actuation HFA aerosol inhaler 2 puff inhalation Q6H PRN (Reason: shortness of breath or wheezing) Qty: 8.5 0RF hydrocodone-acetaminophen 5-325 mg tablet 1 tab PO Q6H PRN (Reason: pain) Qty: 14 0RF oxycodone-acetaminophen [Percocet] 5-325 mg tablet 1 tab PO Q4-6H PRN (Reason: pain) Qty: 16 0RF oxycodone-acetaminophen 5-325 mg tablet 1 tab PO Q6H PRN (Reason: pain) Qty: 10 0RF hydroxyurea (sickle cell) 200 mg capsule 200 mg PO DAILY Qty: 30 0RF Referrals: Jen Albarran FNP-BC [Primary Care Provider] - Stand Alone Forms: Patient Portal/API/Survey
[2024-09-01] MEDS: ACETAMINOPHEN IV 1,000 MG/100 ML VIAL 400 MG IV (00:59)
[2024-09-01] MEDS: SODIUM CHLORIDE 0.9% 1,000 ML 1000 ML IV (00:59)
[2024-09-01] MEDS: KETOROLAC 30 MG/ML VIAL 15 MG IV (01:00)
[2024-09-01] MEDS: HYDROMORPHONE 1 MG INJ IV ×2 (01:01→02:43)
[2024-09-01 01:31] LABS: Add Manual Diff / Slide Review YES; Hematocrit 26.3 % (41-53); Hemoglobin 8.9 g/dL (13.5-17.5); Mean Corpuscular HGB Conc 33.7 % (30-36); Mean Corpuscular Hemoglobin 24.7 PG (26-34); Mean Corpuscular Volume 73.3 fL (80-100); Platelet Count 233 X10^3/uL (150-400); Red Blood Cell Count 3.58 X10^6/uL (4.5-5.9); Red Cell Distribution Width 19.3 % (11.6-14.8); White Blood Cell Count 8.6 X10^3/uL (4.5-11.0)
[2024-09-01 01:40] LABS: Alanine Aminotransferase 20 IU/L (<50); Albumin 4.2 g/dL (3.5-5.0); Albumin Globulin Ratio 1.2 (1.0-2.8); Alkaline Phosphatase 62 U/L (38-126); Aspartate Aminotransferase 46 IU/L (17-59); BUN Creatinine Ratio 11.4 (6-22); Bilirubin Total 2.1 mg/dL (0.2-1.3); Blood Urea Nitrogen 8 mg/dL (9-20); Calcium 8.2 mg/dL (8.4-10.2); Carbon Dioxide 24 mmol/L (22-32); Chloride 107 mmol/L (98-107); Estimated Glomerular Filt Rate > 60 mL/min (>60); Globulin 3.4 g/dL (1.7-4.1); Glucose 87 mg/dL (70-100); HEMOLYSIS 21 (0-50); Sodium 136 mmol/L (137-145); Total Protein 7.6 g/dL (6.3-8.2)
[2024-09-01 02:37] LABS: Reticulocyte Count, Percent 5.1 % (0.9-2.6)
[2024-09-01 02:43] LABS: Neutrophils Absolute Manual 4558 /uL (3000-5900); Nucleated Red Blood Cells 8 #/Diff; Total Cells Counted 100
[2024-09-01 02:44] LABS: Anisocytosis 2+; Microcytosis 1+; Polychromasia 1+; Schistocytes 1+; Sickle Cells 1+; Smudge Cells 1+; Target Cells 2+; Tear Drop Cells 1+
== END 2024-09-01 03:51 | disposition home or self-care (01) ==
PROVIDERS: Emergency Provider Emergency Medicine; PCP Nurse Practitioner Family
DX: D57.00 Hb-SS disease with crisis, unspecified (principal)
CPT/HCPCS: 36415; 80053; 85007; 85025; 85045; 96365; 96375; 96376; 99284; J0134; J1171; J1885

== ENCOUNTER 2024-09-04 09:19 | Emergency (ER) | payer BC, OTHER, SELFPAY ==
[2024-09-04] VITALS (8 sets, daily range): BP systolic 96–108; BP diastolic 54–59; PULSE 52–83; RESP 14; TEMP 36.7; O2SAT 98–100; BMI 19.3
--- NOTE | 2024-09-04 09:32 | ED.BACK ---
HPI - Back Pain/Injury General Chief Complaint: Back Pain/Injury Stated Complaint: back hurt x4 days/Sickle Cell crisis Time Seen by Provider: 09/04/24 09:26 Source: patient History of Present Illness HPI Narrative: Patient has been seen 32 times in the past 1 month for sickle cell crisis flare-ups. Patient just here 3 days ago for the same complaint. He had been seen here on the and 01 of September. Usually gets Dilaudid and fluids for pain relief and discharged home. He just got a new family doctor. 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 Denies any recent illness. Has low back pain which is exactly the same as every other episode. No recent fever chills cough cold or congestion. No urinary complaints. No chest pain. No dyspnea. No abdominal pain. 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 Related Data Previous Rx's Medication Instructions Recorded hydroxyurea (sickle cell) 200 mg 200 mg PO DAILY #30 caps 07/01/23 capsule doxycycline hyclate 100 mg tablet 100 mg PO BID #14 tabs 07/28/24 penicillin V potassium 250 mg 250 mg PO BID #30 tabs 07/28/24 tablet naloxone 4 mg/actuation nasal 4 mg intranasal Q2M PRN opioid 07/31/24 spray (Narcan) overdose #2 ea ondansetron 4 mg disintegrating 4 mg PO Q8H PRN nausea and 07/31/24 tablet vomiting #20 tabs albuterol sulfate 90 mcg/actuation 2 puff inhalation Q6H PRN 08/03/24 aerosol inhaler shortness of breath or wheezing #8.5 grams amoxicillin 875 mg-potassium 1 tab PO BID #20 tabs 08/03/24 clavulanate 125 mg tablet hydrocodone 5 mg-acetaminophen 325 1 tab PO Q6H PRN pain #14 tabs 08/03/24 mg tablet oxycodone-acetaminophen 5 mg-325 1 tab PO Q4-6H PRN pain #16 tabs 08/06/24 mg tablet (Percocet) oxycodone-acetaminophen 5 mg-325 1 tab PO Q6H PRN pain #10 tabs 25 mg tablet oxycodone-acetaminophen 5 mg-325 1 tab PO Q8H PRN pain #14 tabs 09/01/24 mg tablet Allergies Allergy/AdvReac Type Severity Reaction Status Date / Time No Known Drug Allergies Allergy Verified 09/04/24 09:28 Review of Systems Review of Systems Narrative: GENERAL: Negative chills, fatigue, malaise, fever, sweats. HEENT: Negative sinus pain, ear pain, sore throat RESPIRATORY: Negative dyspnea, cough CARDIOVASCULAR: Negative chest pain, palpitations GASTROINTESTINAL: Negative nausea, vomiting, abdominal pain : Negative dysuria, frequency, hematuria MUSCULOSKELETAL: Positive muscle or bony pain SKIN: Negative rash, skin lesions NEUROLOGIC: Negative weakness, numbness ROS Unobtainable: All systems reviewed & are unremarkable except as noted in HPI and below Patient History Medical History PTSD (post-traumatic stress disorder) Depression Anxiety Seizure Anemia Avascular necrosis of bone Contracture, left elbow Contracture, left hand CVA (cerebral vascular accident) Sickle cell anemia Surgical History History of shoulder surgery 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 Family History Father Cancer Sickle cell trait Lupus Mother Sickle cell trait Brother Sickle cell trait Social History household members: significant other Smoking Status: Never smoker alcohol intake: never Smoking Status: Never smoker alcohol intake frequency: holidays/special occasions only Exam Narrative Exam Narrative: GENERAL: in no distress, not toxic not dyspneic HEAD: Normocephalic. EYES: Pupils equal round ENT: Mucous membranes moist. NECK: Trachea midline. CARDIOVASCULAR: Regular rate and rhythm RESPIRATORY: Clear to auscultation. Breath sounds equal bilaterally. No wheezes, rales, or rhonchi. GASTROINTESTINAL: Abdomen soft, non-tender EXTREMITIES: No gross deformities. BACK: No flank tenderness. There is mild bilateral paralumbar muscle tenderness. No step-off. NEURO: AOx4. Clear speech SKIN: Warm and dry PSYCH: Not anxious, is cooperative Initial Vital Signs Initial Vital Signs: Vital Signs Temperature 98.0 F 09/04/24 09:21 Pulse Rate 82 09/04/24 09:21 Respiratory Rate 14 09/04/24 09:21 Blood Pressure 108/59 L 09/04/24 09:21 Pulse Oximetry 99 09/04/24 09:21 Oxygen Delivery Method Room Air 09/04/24 09:21 Course Orders Ordered: ED Orders 09/04/24 09:31 XR lumbar spine 2-3V Stat 09/04/24 09:50 CBC Auto Diff [Complete Blood Count AUTO DIFF] Stat CMP [Comprehensive Metabolic Panel] Stat RETIC [Reticulocyte Count, Percent] Stat Discontinued Medications Hydromorphone HCl (Hydromorphone 1 Mg Inj) 1 mg IV NOW ONE Stop: 09/04/24 09:31 Last Admin: 09/04/24 09:45 Dose: 1 mg Documented By: SCOTT Hydromorphone HCl (Hydromorphone 1 Mg Inj) 1 mg IV NOW ONE Stop: 09/04/24 10:48 Last Admin: 09/04/24 10:55 Dose: 1 mg Documented By: MOLLY Sodium Chloride (Normal Saline 0.9%) 1,000 mls @ 1,000 mls/hr IV BOLUS ONE Stop: 09/04/24 10:29 Last Infusion: 09/04/24 10:20 Dose: Infused Documented By: Infusion: 09/04/24 09:50 Dose: 1,000 mls/hr Documented By: Infusion: 09/04/24 09:44 Dose: 0 mls/hr Documented By: Admin: 09/04/24 09:44 Dose: 1,000 mls/hr Documented By: SCOTT Ondansetron HCl (Ondansetron 4 Mg/2 Ml Inj) 4 mg IV NOW ONE Stop: 09/04/24 09:31 Last Admin: 09/04/24 09:45 Dose: 4 mg Documented By: SCOTT Vital Signs Vital signs: Vital Signs - 8 hr 09/04/24 09:21 09/04/24 09:26 09/04/24 09:26 Temperature 98.0 F Pulse Rate 82 68 Respiratory Rate 14 Blood Pressure 108/59 L 108/59 L Pulse Oximetry 99 99 Oxygen Delivery Method Room Air 09/04/24 09:31 09/04/24 10:00 09/04/24 10:01 Temperature Pulse Rate 68 69 Respiratory Rate Blood Pressure 102/55 L Pulse Oximetry 100 98 Oxygen Delivery Method 09/04/24 10:01 09/04/24 10:30 09/04/24 10:30 Temperature Pulse Rate 52 L 54 L Respiratory Rate Blood Pressure 96/57 L Pulse Oximetry 99 100 Oxygen Delivery Method 09/04/24 11:00 09/04/24 11:00 09/04/24 11:30 Temperature Pulse Rate 83 Respiratory Rate Blood Pressure 105/54 L 107/57 L Pulse Oximetry 100 Oxygen Delivery Method 09/04/24 11:30 Temperature Pulse Rate 70 Respiratory Rate Blood Pressure Pulse Oximetry 100 Oxygen Delivery Method MDM - Back Pain/Injury Lab Data 09/04/24 09:50 09/04/24 09:50 Labs: Lab Results 09/04/24 Range/Units 09:50 WBC 9.5 (4.5-11.0) X10^3/uL RBC 3.93 L (4.5-5.9) X10^6/uL Hgb 9.7 L (13.5-17.5) g/dL Hct 28.8 L (41-53) % MCV 73.3 L (80-100) fL MCH 24.7 L (26-34) PG MCHC 33.7 (30-36) % RDW 18.6 H (11.6-14.8) % Plt Count 226 (150-400) X10^3/uL Neut % (Auto) Not Reportable Lymph % (Auto) Not Reportable [place] % (Auto) Not Reportable Eos % (Auto) Not Reportable Baso % (Auto) Not Reportable Lymph # (Auto) Not Reportable [place] # (Auto) Not Reportable Baso # (Auto) Not Reportable Total Counted 100 Seg Neutrophils % 56.0 (38-70) % Lymphocytes % (Manual) 38.0 (25-45) % Monocytes % (Manual) 6.0 (2-11) % Neutrophils # (Manual) 5320 (2600-1293) /uL Nucleated RBCs 1 H ( - 0) #/Diff RBC Morphology See below Anisocytosis 2+ H Microcytosis 1+ H Sickle Cells 1+ H Target Cells 2+ H Schistocytes 1+ H Percent Retic 6.2 H (0.9-2.6) % Sodium 137 (137-145) mmol/L Potassium 3.7 (3.4-5.1) mmol/L Chloride 105 (98-107) mmol/L Carbon Dioxide 20 L (22-32) mmol/L BUN 8 L (9-20) mg/dL Creatinine 0.62 L (0.66-1.25) mg/dL Estimated GFR > 60 (>60) mL/min BUN/Creatinine Ratio 12.9 (6-22) Glucose 79 (70-100) mg/dL Calcium 8.6 (8.4-10.2) mg/dL Total Bilirubin 3.9 H (0.2-1.3) mg/dL AST 48 (17-59) IU/L ALT 23 (<50) IU/L Alkaline Phosphatase 90 (38-126) U/L Total Protein 8.6 H (6.3-8.2) g/dL Albumin 4.8 (3.5-5.0) g/dL Globulin 3.8 (1.7-4.1) g/dL Albumin/Globulin Ratio 1.3 (1.0-2.8) Imaging Data X-ray lumbar spine: Radiologist's Impression: [address] [address] XRay Report Signed Patient: Lucretia Keller MR#: [id number] : 2000 Acct:[id number] Age/Sex: 24 / M Date of Service: 09/04/24 Loc: ED Accession Number: [id number] Procedure: XR lumbar spine 2-3V Ordering Provider: Torsten Stanley MD PROCEDURE: XR LUMBAR SPINE 2-3V INDICATIONS: Low back pain TECHNIQUE: 3 views of the lumbar spine were acquired. COMPARISON: None. FINDINGS: Bones: There is mild rightward spinal curvature in the lumbar spine. Vertebral body heights are overall well maintained. No traumatic subluxation. The bones are slightly sclerotic appearing. Soft tissues: Clips project over the mid abdomen. Right hip arthroplasty partially seen. IMPRESSION: No acute vertebral body height loss. The bones are slightly sclerotic appearing, likely underlying hematologic disorder. If there is high concern for further derangement, consider MRI evaluation. Partially seen right hip replacement. Dictated by: Mathew Pichardo M.D. on 09/04/2024 at 10:14 Approved by: Mathew Pichardo M.D. on 09/04/2024 at 10:15 [facility] Narrative Medical decision making narrative: Patient has been seen 32 times in the past 1 month for sickle cell crisis flare-ups. Patient just here 3 days ago for the same complaint. He had been seen here on the and 01 of September. Usually gets Dilaudid and fluids for pain relief and discharged home. He just got a new family doctor. 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 Denies any recent illness. Has low back pain which is exactly the same as every other episode. No recent fever chills cough cold or congestion. No urinary complaints. No chest pain. No dyspnea. No abdominal pain. 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 After history and exam, exam is reassuring. This is exact same back pain he has had in the past for flare-ups., CBC CMP reticulocyte count normal saline nasal cannula x-ray lumbar spine MDM Medical records reviewed: Differential considered: Includes but not limited to Lab Test results independently reviewed as above. Pertinent findings: Laboratory studies appear to be at baseline, WBC 9.5 hemoglobin 9.7 reticulocyte count 6.2 sodium 137 potassium 3.7 BUN 8 creatinine 0.62 Imaging studies independently reviewed: X-ray lumbar spine no acute finding Consultations: None indicated Treatments: Normal saline supplemental oxygen Dilaudid Zofran Re-evaluations: Patient feeling much better time of discharge. 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 Return precautions reviewed with him. Reviewed with him laboratory and imaging studies. They are reassuring. They are at baseline. 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 He desires discharge home. Discussion: Appropriate for discharge home exam is reassuring patient at baseline with laboratory studies. No chest pain. 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 Return precautions reviewed and he desires discharge home. Diagnosis: Sickle cell pain Discharge Plan Departure Patient Disposition: Home Clinical Impression: Sickle cell disease Qualifiers: Sickle-cell associated disorders: with unspecified crisis Qualified Code(s): D57.00 - Hb-SS disease with crisis, unspecified Instructions: DI for Sickle Cell Anemia, Pain Crisis -- Adult Activity Restrictions/Additional Instructions: Please see your family doctor as scheduled. You may need referral to pain management for your sickle cell disease. Please get referral by your family doctor for letter stamping machine operator to help guide for management of your sickle cell disease. No driving operating machinery today. Return if worse if any questions or concerns. Your laboratory studies and imaging studies are reassuring today. Prescriptions: No Action penicillin V potassium 250 mg tablet 250 mg PO BID Qty: 30 0RF doxycycline hyclate 100 mg Tablet 100 mg PO BID Qty: 14 0RF ondansetron 4 mg tablet,disintegrating 4 mg PO Q8H PRN (Reason: nausea and vomiting) Qty: 20 0RF naloxone [Narcan] 4 mg/actuation spray,non-aerosol 4 mg intranasal Q2M PRN (Reason: opioid overdose) Qty: 2 0RF Rx Instructions: spray 1 dose into ONE nostril; alternate nostrils w each dose until help arrives amoxicillin-pot clavulanate 875-125 mg tablet 1 tab PO BID Qty: 20 0RF albuterol sulfate 90 mcg/actuation HFA aerosol inhaler 2 puff inhalation Q6H PRN (Reason: shortness of breath or wheezing) Qty: 8.5 0RF hydrocodone-acetaminophen 5-325 mg tablet 1 tab PO Q6H PRN (Reason: pain) Qty: 14 0RF oxycodone-acetaminophen [Percocet] 5-325 mg tablet 1 tab PO Q4-6H PRN (Reason: pain) Qty: 16 0RF oxycodone-acetaminophen 5-325 mg tablet 1 tab PO Q6H PRN (Reason: pain) Qty: 10 0RF oxycodone-acetaminophen 5-325 mg tablet 1 tab PO Q8H PRN (Reason: pain) Qty: 14 0RF hydroxyurea (sickle cell) 200 mg capsule 200 mg PO DAILY Qty: 30 0RF Referrals: Jen Albarran FNP-BC [Primary Care Provider] - Stand Alone Forms: Patient Portal/API/Survey
[2024-09-04] MEDS: SODIUM CHLORIDE 0.9% 1,000 ML 1000 ML IV (09:44)
[2024-09-04] MEDS: HYDROMORPHONE 1 MG INJ IV ×2 (09:45→10:55)
[2024-09-04] MEDS: ONDANSETRON 4 MG/2 ML INJ IV (09:45)
[2024-09-04 10:08] LABS: Hematocrit 28.8 % (41-53); Hemoglobin 9.7 g/dL (13.5-17.5); Mean Corpuscular HGB Conc 33.7 % (30-36); Mean Corpuscular Hemoglobin 24.7 PG (26-34); Mean Corpuscular Volume 73.3 fL (80-100); Platelet Count 226 X10^3/uL (150-400); Red Blood Cell Count 3.93 X10^6/uL (4.5-5.9); Red Cell Distribution Width 18.6 % (11.6-14.8); White Blood Cell Count 9.5 X10^3/uL (4.5-11.0)
[2024-09-04 10:12] LABS: Alanine Aminotransferase 23 IU/L (<50); Albumin 4.8 g/dL (3.5-5.0); Albumin Globulin Ratio 1.3 (1.0-2.8); Alkaline Phosphatase 90 U/L (38-126); Aspartate Aminotransferase 48 IU/L (17-59); BUN Creatinine Ratio 12.9 (6-22); Bilirubin Total 3.9 mg/dL (0.2-1.3); Blood Urea Nitrogen 8 mg/dL (9-20); Calcium 8.6 mg/dL (8.4-10.2); Carbon Dioxide 20 mmol/L (22-32); Chloride 105 mmol/L (98-107); Estimated Glomerular Filt Rate > 60 mL/min (>60); Globulin 3.8 g/dL (1.7-4.1); Glucose 79 mg/dL (70-100); HEMOLYSIS < 15 (0-50); Potassium 3.7 mmol/L (3.4-5.1); Sodium 137 mmol/L (137-145); Total Protein 8.6 g/dL (6.3-8.2)
[2024-09-04 10:13] LABS: Reticulocyte Count, Percent 6.2 % (0.9-2.6)
[2024-09-04 10:15] LABS: Add Manual Diff / Slide Review YES
[2024-09-04 10:36] LABS: Neutrophils Absolute Manual 5320 /uL (3000-5900); Nucleated Red Blood Cells 1 #/Diff; Total Cells Counted 100
[2024-09-04 10:37] LABS: Anisocytosis 2+; Microcytosis 1+
[2024-09-04 10:38] LABS: Sickle Cells 1+; Target Cells 2+
[2024-09-04 10:40] LABS: Schistocytes 1+
== END 2024-09-04 11:48 | disposition home or self-care (01) ==
PROVIDERS: Emergency Provider Emergency Medicine; PCP Nurse Practitioner Family
DX: D57.00 Hb-SS disease with crisis, unspecified (principal); M54.50 Low back pain, unspecified; F12.90 Cannabis use, unspecified, uncomplicated; Z86.73 Personal history of transient ischemic attack (TIA), and cerebral infarction without residual deficits
CPT/HCPCS: 36415; 72100; 80053; 85007; 85025; 85045; 96374; 96375; 96376; 99284; J1171; J2405

== ENCOUNTER 2024-09-06 19:07 | Observation (INO) | payer BC, OTHER, SELFPAY ==
[2024-09-06 19:11] VITALS: BP 103/57; PULSE 82; RESP 17; TEMP 36.6; O2SAT 100; BMI 19.3
[2024-09-06 21:12] VITALS: BP 113/57; PULSE 94; RESP 18; TEMP 36.8; O2SAT 98
[2024-09-06] MEDS: ACETAMINOPHEN 325 MG TABLET 650 MG PO (21:28)
[2024-09-06] MEDS: IBUPROFEN 400 MG TABLET PO (21:29)
[2024-09-06 22:12] VITALS: BP 101/57; PULSE 69; O2SAT 98
--- NOTE | 2024-09-06 22:13 | DI.RAD.S_ITS ---
PROCEDURE: XR CHEST 1V INDICATIONS: chest pain TECHNIQUE: One view of the chest was acquired. COMPARISON: [facility], CR, XR CHEST 1V, 08/04/2024, 10:14. FINDINGS: Surgical changes and devices: None. Lungs and pleura: Lungs are clear. No pleural effusions or pneumothorax. Mediastinum: Mediastinal contours appear normal. Heart size is enlarged. Bones and chest wall: No suspicious bony lesions. Overlying soft tissues appear unremarkable. IMPRESSION: No acute pulmonary process. Dictated by: Korin Vidal M.D. on 09/06/2024 at 22:28 Approved by: Korin Vidal M.D. on 09/06/2024 at 22:28
--- NOTE | 2024-09-06 22:14 | ED.BACK ---
HPI - Back Pain/Injury General Chief Complaint: Back Pain/Injury Stated Complaint: back px Time Seen by Provider: 09/06/24 22:13 Source: patient History of Present Illness HPI Narrative: 24-year-old male with history of sickle cell disease, history of remote stroke and subsequent left hemiparesis, prior admissions for sickle crisis, recently seen for back pain and was discharged home, having mid low back pain without obvious lifting or trauma, states that this feels similar to his previous sickle crises when he has back pain with or without lower leg pain. He does not have pain to either leg. He denies recent fevers or chills, cough, shortness of breath. No trauma or lifting or new activities. No painful urination or frequency of urination. No nausea or vomiting. No headache or neck pain or photophobia. Denies numbness or tingling to legs, no incontinence of urine or stool. Related Data Previous Rx's Medication Instructions Recorded hydroxyurea (sickle cell) 200 mg 200 mg PO DAILY #30 caps 07/01/23 capsule doxycycline hyclate 100 mg tablet 100 mg PO BID #14 tabs 07/28/24 penicillin V potassium 250 mg 250 mg PO BID #30 tabs 07/28/24 tablet naloxone 4 mg/actuation nasal 4 mg intranasal Q2M PRN opioid 07/31/24 spray (Narcan) overdose #2 ea ondansetron 4 mg disintegrating 4 mg PO Q8H PRN nausea and 07/31/24 tablet vomiting #20 tabs albuterol sulfate 90 mcg/actuation 2 puff inhalation Q6H PRN 08/03/24 aerosol inhaler shortness of breath or wheezing #8.5 grams amoxicillin 875 mg-potassium 1 tab PO BID #20 tabs 08/03/24 clavulanate 125 mg tablet hydrocodone 5 mg-acetaminophen 325 1 tab PO Q6H PRN pain #14 tabs 08/03/24 mg tablet oxycodone-acetaminophen 5 mg-325 1 tab PO Q4-6H PRN pain #16 tabs 08/06/24 mg tablet (Percocet) oxycodone-acetaminophen 5 mg-325 1 tab PO Q6H PRN pain #10 tabs 08/24/25 mg tablet oxycodone-acetaminophen 5 mg-325 1 tab PO Q8H PRN pain #14 tabs 09/01/24 mg tablet Allergies Allergy/AdvReac Type Severity Reaction Status Date / Time No Known Drug Allergies Allergy Verified 09/04/24 09:28 Patient History Medical History PTSD (post-traumatic stress disorder) Depression Anxiety Seizure Anemia Avascular necrosis of bone Contracture, left elbow Contracture, left hand CVA (cerebral vascular accident) Sickle cell anemia Surgical History History of shoulder surgery 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 Family History Father Cancer Sickle cell trait Lupus Mother Sickle cell trait Brother Sickle cell trait Social History household members: significant other Smoking Status: Never smoker alcohol intake: never Smoking Status: Never smoker alcohol intake frequency: holidays/special occasions only Exam Narrative Exam Narrative: GENERAL: Well-developed patient, in mild distress. HEAD: Atraumatic. Normocephalic. EYES: Pupils equal round and reactive. Extraocular motions intact. No scleral icterus. No injection or drainage. ENT: Nose without bleeding, purulent drainage. Throat without erythema, tonsillar hypertrophy or exudate. Airway patent. NECK: Trachea midline. Non tender CARDIOVASCULAR: Regular rate and rhythm without murmurs, gallops, or rubs. RESPIRATORY: Clear to auscultation. Breath sounds equal bilaterally. No wheezes, rales, or rhonchi. GASTROINTESTINAL: Abdomen soft, non-tender, nondistended. EXTREMITIES: No edema. Has flexion contracture and some muscle wasting left upper extremity old stroke changes. No flexion contracture but some muscle wasting left lower extremity. BACK: Nontender without deformity or crepitance. No flank tenderness. NEURO: AOx3. Chronic left hemiparesis upper and lower extremities with muscle wasting noted SKIN: No rash or erythema of visible areas Initial Vital Signs Initial Vital Signs: Vital Signs Temperature 97.8 F 09/06/24 19:11 Pulse Rate 82 09/06/24 19:11 Respiratory Rate 17 09/06/24 19:11 Blood Pressure 103/57 L 09/06/24 19:11 Pulse Oximetry 100 09/06/24 19:11 Oxygen Delivery Method Room Air 09/06/24 19:11 Course Orders Ordered: ED Orders 09/06/24 22:13 XR chest 1V Stat EKG-12 Lead Stat 09/06/24 22:28 Covid-19 + FLU A/B + RSV - PCR Stat 09/06/24 22:56 Complete Blood Count AUTO DIFF Stat Comprehensive Metabolic Panel Stat Lactate (Lactic Acid) Stat Lipase Stat RETIC [Reticulocyte Count, Percent] Stat Troponin & CK Cardiac Panel Stat 09/06/24 23:55 Blood Culture Stat 09/07/24 00:35 EKG-12 Lead Stat 09/07/24 02:26 Urinalysis and Microscopic Stat Acetaminophen (Acetaminophen 325 Mg Tablet) 650 mg PO Q6H PRN PRN Reason: Fever/Mild Pain (1-3) Hydrocodone Bitart/Acetaminophen (Hydrocodone/Acet 5/325 Tablet) 1 tab PO Q4H PRN PRN Reason: Pain, Moderate (4-6) Hydrocodone Bitart/Acetaminophen (Hydrocodone/Acet 5/325 Tablet) 2 tab PO Q4H PRN PRN Reason: Pain, Severe (7-10) Hydromorphone HCl (Hydromorphone 0.5 Mg Inj) 0.5 mg IV Q2H PRN PRN Reason: Pain, Severe (7-10) Sodium Chloride (Normal Saline 0.9%) 1,000 mls @ 100 mls/hr IV CONT JONATHAN Naloxone HCl (Naloxone 0.4 Mg/Ml Vial) 0.2 mg IV Q2MIN PRN PRN Reason: Opiate Reversal Ondansetron HCl (Ondansetron 4 Mg/2 Ml Inj) 4 mg IV Q8HR PRN PRN Reason: Nausea And Vomiting Discontinued Medications Acetaminophen (Acetaminophen 325 Mg Tablet) 650 mg PO NOW ONE Stop: 09/06/24 21:25 Last Admin: 09/06/24 21:28 Dose: 650 mg Documented By: LILIAM Hydromorphone HCl (Hydromorphone 0.5 Mg Inj) 0.5 mg IV NOW ONE Stop: 09/06/24 22:25 Last Admin: 09/06/24 22:53 Dose: 0.5 mg Documented By: Hydromorphone HCl (Hydromorphone 0.5 Mg Inj) 0.5 mg IV NOW ONE Stop: 09/07/24 00:21 Last Admin: 09/07/24 00:28 Dose: 0.5 mg Documented By: LILIAM Sodium Chloride (Normal Saline 0.9%) 1,000 mls @ 1,000 mls/hr IV BOLUS ONE Stop: 09/06/24 23:12 Last Infusion: 09/06/24 23:35 Dose: Infused Documented By: Admin: 09/06/24 22:54 Dose: 1,000 mls/hr Documented By: Sodium Chloride (Normal Saline 0.9%) 1,000 mls @ 1,000 mls/hr IV BOLUS ONE Stop: 09/06/24 23:23 Last Admin: 09/06/24 23:28 Dose: Not Given Documented By: Lactated Ringer's (Lactated Ringers) 1,000 mls @ 1,000 mls/hr IV BOLUS ONE Stop: 09/07/24 01:22 Last Infusion: 09/07/24 01:19 Dose: Infused Documented By: Admin: 09/07/24 00:28 Dose: 1,000 mls/hr Documented By: LILIAM Ibuprofen (Ibuprofen 400 Mg Tablet) 400 mg PO NOW ONE Stop: 09/06/24 21:26 Last Admin: 09/06/24 21:29 Dose: 400 mg Documented By: LILIAM Ondansetron HCl (Ondansetron 4 Mg/2 Ml Inj) 4 mg IV NOW ONE Stop: 09/06/24 22:25 Last Admin: 09/06/24 22:52 Dose: 4 mg Documented By: Vital Signs Vital signs: Vital Signs - 8 hr 09/06/24 19:11 09/06/24 21:12 09/06/24 22:12 Temperature 97.8 F 98.2 F Pulse Rate 82 94 H 69 Respiratory Rate 17 18 Blood Pressure 103/57 L 113/57 L Pulse Oximetry 100 98 98 Oxygen Delivery Method Room Air Room Air Room Air 09/06/24 22:12 09/06/24 22:30 09/06/24 22:30 Temperature Pulse Rate 70 Respiratory Rate Blood Pressure 101/57 L 102/60 Pulse Oximetry 99 Oxygen Delivery Method 09/06/24 23:00 09/06/24 23:00 09/06/24 23:30 Temperature Pulse Rate 60 61 Respiratory Rate 13 17 Blood Pressure 101/61 Pulse Oximetry 98 98 Oxygen Delivery Method Room Air 09/06/24 23:30 09/07/24 00:00 09/07/24 00:00 Temperature Pulse Rate 55 L Respiratory Rate 15 Blood Pressure 94/59 L 89/61 L Pulse Oximetry 98 Oxygen Delivery Method 09/07/24 00:30 09/07/24 00:30 09/07/24 01:00 Temperature Pulse Rate 60 55 L Respiratory Rate 16 17 Blood Pressure 93/58 L Pulse Oximetry 98 99 Oxygen Delivery Method 09/07/24 01:00 Temperature Pulse Rate Respiratory Rate Blood Pressure 103/64 Pulse Oximetry Oxygen Delivery Method MDM - Back Pain/Injury Lab Data Attestation: I reviewed the patient's lab results. Lab results narrative: White blood cell count 65134, hemoglobin 9.1, platelets 227575 adequate, basic metabolic panel unremarkable. Liver functions and lipase normal. Troponin negative/unmeasurable. COVID negative, influenza negative, RSV negative. 09/06/24 22:56 09/06/24 22:56 Labs: Lab Results 09/06/24 09/06/24 Range/Units 22:28 22:56 WBC 14.2 H (4.5-11.0) X10^3/uL RBC 3.64 L (4.5-5.9) X10^6/uL Hgb 9.1 L (13.5-17.5) g/dL Hct 27.0 L (41-53) % MCV 74.0 L (80-100) fL MCH 25.0 L (26-34) PG MCHC 33.7 (30-36) % RDW 19.2 H (11.6-14.8) % Plt Count 218 (150-400) X10^3/uL Neut % (Auto) Not Reportable Lymph % (Auto) Not Reportable [place] % (Auto) Not Reportable Eos % (Auto) Not Reportable Baso % (Auto) Not Reportable Lymph # (Auto) Not Reportable [place] # (Auto) Not Reportable Baso # (Auto) Not Reportable Total Counted 100 Seg Neutrophils % 48.0 (38-70) % Band Neutrophils % 6.0 (3-7) % Lymphocytes % (Manual) 30.0 (25-45) % Atypical Lymphs % 7.0 H ( - 0) % Monocytes % (Manual) 6.0 (2-11) % Eosinophils % (Manual) 3.0 (2-4) % Neutrophils # (Manual) 7668 H (0710-8086) /uL Nucleated RBCs 1 H ( - 0) #/Diff Platelet Estimate Adequate on smear RBC Morphology See below Anisocytosis 2+ H Microcytosis 1+ H Macrocytosis 1+ H Target Cells 2+ H Schistocytes 1+ H Percent Retic 7.7 H (0.9-2.6) % Sodium 138 (137-145) mmol/L Potassium 3.6 (3.4-5.1) mmol/L Chloride 106 (98-107) mmol/L Carbon Dioxide 22 (22-32) mmol/L BUN 8 L (9-20) mg/dL Creatinine 0.64 L (0.66-1.25) mg/dL Estimated GFR > 60 (>60) mL/min BUN/Creatinine Ratio 12.5 (6-22) Glucose 103 H (70-100) mg/dL Lactate 0.9 (0.7-2.1) mmol/L Calcium 8.7 (8.4-10.2) mg/dL Total Bilirubin 2.3 H (0.2-1.3) mg/dL AST 41 (17-59) IU/L ALT 21 (<50) IU/L Alkaline Phosphatase 84 (38-126) U/L Total Creatine Kinase 73 (55-170) U/L Troponin I < 0.012 (0.01-0.034) ng/mL Total Protein 8.2 (6.3-8.2) g/dL Albumin 4.6 (3.5-5.0) g/dL Globulin 3.6 (1.7-4.1) g/dL Albumin/Globulin Ratio 1.3 (1.0-2.8) Lipase 222 (23-300) U/L SARS-CoV-2 (PCR) Negative (Negative) Influenza A (RT-PCR) Flu a negative (NEGATIVE) Influenza B (RT-PCR) Flu b negative (NEGATIVE) RSV (PCR) Negative (Negative) ECG Data Attestation: I personally reviewed and interpreted this ECG as follows: Interpretation: Normal sinus rhythm with rate of 61, first-degree AV block with OR [address] segment elevation or depression changes. QRS 92. QTC 438. 0039, repeat EKG shows bradycardia 49, sinus bradycardia with second-degree AV block Mobitz type 1, QRS 94, QTC 451. MDM Narrative Medical decision making narrative: 24-year-old male with history of sickle crisis admissions, with typical back pain, recent evaluation a few days ago, interval white blood cell count 70403 elevated today was normal on previous most recent visit, reticulocyte today 7.7 increased from prior visit. EKG initial sinus rhythm without obvious ischemic changes, troponin negative. Electrolytes unremarkable. Urinalysis still pending. COVID/flu/RSV swab negative. Chest x-ray negative. IV Dilaudid, IV fluids. Patient had pause on nurse monitoring, on repeat EKG has Mobitz type 1 second-degree AV block, with heart rate 50, normotensive, asymptomatic. AV block issue discussed with cardiology Dr. Torres, no treatment specifically advised, he will consult as patient is likely to be admitted for sickle crisis, admit to telemetry. 0115, case discussed with hospitalist Dr. Frederick who accepts patient for admission to observation Discharge Plan Departure Patient Disposition: Admitted as Observation Clinical Impression: Sickle cell disease with crisis, Bradycardia, Back pain Admit Date/Time: 09/07/24 01:13 Admit Provider: Ace Frederick
[2024-09-06 22:30] VITALS: BP 102/60; PULSE 70; O2SAT 99
--- NOTE | 2024-09-06 22:41 | EKG_ITS ---
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 Electronically Signed On 09-09-2024 9:41:52 PST by Arslan Belcher
[2024-09-06] MEDS: ONDANSETRON 4 MG/2 ML INJ IV (22:52)
[2024-09-06] MEDS: HYDROMORPHONE 0.5 MG INJ IV (22:53)
[2024-09-06] MEDS: SODIUM CHLORIDE 0.9% 1,000 ML 1000 ML IV (22:54)
[2024-09-06 23:00] VITALS: BP 101/61; PULSE 60; RESP 13; O2SAT 98
[2024-09-06 23:09] LABS: Influenza A - CEPHEID Flu A NEGATIVE (NEGATIVE); Influenza B - CEPHEID Flu B NEGATIVE (NEGATIVE); Respiratory Syncytial Virus Negative (Negative)
[2024-09-06 23:10] LABS: COVID-19 CEPHEID 4-PLEX PCR Negative (Negative)
[2024-09-06 23:15] LABS: Alanine Aminotransferase 21 IU/L (<50); Albumin 4.6 g/dL (3.5-5.0); Albumin Globulin Ratio 1.3 (1.0-2.8); Alkaline Phosphatase 84 U/L (38-126); Aspartate Aminotransferase 41 IU/L (17-59); BUN Creatinine Ratio 12.5 (6-22); Bilirubin Total 2.3 mg/dL (0.2-1.3); Blood Urea Nitrogen 8 mg/dL (9-20); Calcium 8.7 mg/dL (8.4-10.2); Carbon Dioxide 22 mmol/L (22-32); Chloride 106 mmol/L (98-107); Creatine Kinase 73 U/L (55-170); Estimated Glomerular Filt Rate > 60 mL/min (>60); Globulin 3.6 g/dL (1.7-4.1); Glucose 103 mg/dL (70-100); HEMOLYSIS < 15 (0-50); Lactate (Lactic Acid) 0.9 mmol/L (0.7-2.1); Lipase 222 U/L (23-300); Potassium 3.6 mmol/L (3.4-5.1); Sodium 138 mmol/L (137-145); Total Protein 8.2 g/dL (6.3-8.2)
[2024-09-06 23:25] LABS: Hemoglobin 9.1 g/dL (13.5-17.5); Mean Corpuscular HGB Conc 33.7 % (30-36); Platelet Count 218 X10^3/uL (150-400); Red Blood Cell Count 3.64 X10^6/uL (4.5-5.9); Red Cell Distribution Width 19.2 % (11.6-14.8); White Blood Cell Count 14.2 X10^3/uL (4.5-11.0)
[2024-09-06 23:26] LABS: Troponin I < 0.012 ng/mL (0.01-0.034)
[2024-09-06 23:27] LABS: Add Manual Diff / Slide Review YES
[2024-09-06 23:30] VITALS: BP 94/59; PULSE 61; RESP 17; O2SAT 98
[2024-09-06 23:32] LABS: Reticulocyte Count, Percent 7.7 % (0.9-2.6)
[2024-09-07] VITALS (13 sets, daily range): BP systolic 89–118; BP diastolic 55–74; PULSE 47–89; RESP 12–18; TEMP 36.2–36.6; O2SAT 97–100; BMI 19.3
[2024-09-07 00:13] LABS: Neutrophils Absolute Manual 7668 /uL (3000-5900); Nucleated Red Blood Cells 1 #/Diff; Total Cells Counted 100
[2024-09-07 00:14] LABS: Anisocytosis 2+; Macrocytosis 1+; Microcytosis 1+; Platelet Estimate Adequate on smear; Schistocytes 1+; Target Cells 2+
[2024-09-07] MEDS: HYDROMORPHONE 0.5 MG INJ IV ×4 (00:28→08:18)
[2024-09-07] MEDS: LACTATED RINGERS 1,000 ML 1000 ML IV (00:28)
--- NOTE | 2024-09-07 00:36 | PC.NURSE ---
Addendum entered by Sadia Way R.N. 09/07/24 00:43: 12 lead EKG obtained and handed off to Dr Yost. Pt remains in stable condition. Original Note: Pt noted in irregular bradyarrhythmia with TX intervals of varying lengths. Strip printed and shown to Dr Yost.
--- NOTE | 2024-09-07 00:39 | EKG_ITS ---
[place] [address] [place] [address] Test Date: 2024-09-07 Pat Name: Lucretia Keller Department: 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
[2024-09-07 02:35] LABS: Appearance Urine UA CLEAR; Bilirubin Urine UA NEGATIVE (NEGATIVE); Color Urine UA YELLOW; Glucose Urine UA NEGATIVE (Negative); Ketones Urine UA NEGATIVE (NEGATIVE); Leukocyte Esterase Urine UA NEGATIVE (NEGATIVE); Nitrite Urine UA NEGATIVE (Negative); Occult Blood Urine UA NEGATIVE (Negative); Protein Urine UA NEGATIVE (Negative); pH Urine UA 6.5 (4.5-8.0)
[2024-09-07] MEDS: SODIUM CHLORIDE 0.9% 1,000 ML 100 ML IV ×3 (02:44→23:11)
[2024-09-07 02:48] LABS: Bacteria Urine None Seen; Culture Indicated Urine Cult Not Indicated; RBC Urine None Seen (0-5/HPF); Squamous Epithelial Cell Urine None Seen (0-5/HPF); Urine Volume 10mL (spun); WBC Urine None Seen (0-5/HPF)
--- NOTE | 2024-09-07 06:43 | P.HP_ITS ---
History of Present Illness History of Present Illness Chief complaint: back px Narrative: 24 year old male with past medical history of Sickle Cell disease presents with lower back pain. Of note, the patient is very well known to our hospital and has been admitted many times for sickle cell crisis. The patient also has been seen twice in the last week for pain but was deemed stable and was sent home from the ER. The patient however returns today with worsening lower back pain. The patient states that this is his third ER visit and the pain is severe. The patient however denies any fever, chills, nausea, vomiting, diarrhea, dysuria, chest pain or shortness of breath. The patient also denies any coughing. In our ER, the patient was hemodynamically stable. Two days ago the patient lumbar spine xray was negative for any acute pathology. WBC 14 which was elevated compared to two days ago. CXR clear but UA pending as patient was not able to produce urine yet. The patient was given IVF and IV dilaudid. Due to ongoing pain, our ER physician requested for admission. Labs otherwise were relatively stable. [facility] Medical History PTSD (post-traumatic stress disorder) Depression Anxiety Seizure Anemia Avascular necrosis of bone Contracture, left elbow Contracture, left hand CVA (cerebral vascular accident) Sickle cell anemia Surgical History History of shoulder surgery 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 Family History Father Cancer Sickle cell trait Lupus Mother Sickle cell trait Brother Sickle cell trait Social History household members: significant other Smoking Status: Never smoker alcohol intake: never Meds Home Medications and Allergies Home Medications Medication Instructions Recorded Confirmed Type hydroxyurea (sickle cell) 200 mg 200 mg PO DAILY #30 caps 07/01/23 08/04/24 Rx capsule doxycycline hyclate 100 mg tablet 100 mg PO BID #14 tabs 07/28/24 08/04/24 Rx penicillin V potassium 250 mg 250 mg PO BID #30 tabs 07/28/24 08/04/24 Rx tablet naloxone 4 mg/actuation nasal 4 mg intranasal Q2M PRN opioid 07/31/24 08/04/24 Rx spray (Narcan) overdose #2 ea ondansetron 4 mg disintegrating 4 mg PO Q8H PRN nausea and 07/31/24 08/04/24 Rx tablet vomiting #20 tabs albuterol sulfate 90 mcg/actuation 2 puff inhalation Q6H PRN 08/03/24 08/04/24 Rx aerosol inhaler shortness of breath or wheezing #8.5 grams amoxicillin 875 mg-potassium 1 tab PO BID #20 tabs 08/03/24 08/04/24 Rx clavulanate 125 mg tablet hydrocodone 5 mg-acetaminophen 325 1 tab PO Q6H PRN pain #14 tabs 08/03/24 08/04/24 Rx mg tablet oxycodone-acetaminophen 5 mg-325 1 tab PO Q4-6H PRN pain #16 tabs 08/06/24 Rx mg tablet (Percocet) oxycodone-acetaminophen 5 mg-325 1 tab PO Q6H PRN pain #10 tabs 08/24/24 Rx mg tablet oxycodone-acetaminophen 5 mg-325 1 tab PO Q8H PRN pain #14 tabs 09/01/24 Rx mg tablet Allergies Allergy/AdvReac Type Severity Reaction Status Date / Time No Known Drug Allergies Allergy Verified 09/04/24 09:28 Review of Systems Review of Systems ROS: Yes All systems reviewed with the patient and are negative except as otherwise documented Exam Vital Signs (past 8 hours): - 09/06/24 23:00 09/06/24 23:00 09/06/24 23:30 Temperature Pulse Rate 60 61 Respiratory Rate 13 17 Blood Pressure 101/61 Pulse Oximetry 98 98 Oxygen Delivery Method Room Air Oxygen Flow Rate 09/06/24 23:30 09/07/24 00:00 09/07/24 00:00 Temperature Pulse Rate 55 L Respiratory Rate 15 Blood Pressure 94/59 L 89/61 L Pulse Oximetry 98 Oxygen Delivery Method Oxygen Flow Rate 09/07/24 00:30 09/07/24 00:30 09/07/24 01:00 Temperature Pulse Rate 60 55 L Respiratory Rate 16 17 Blood Pressure 93/58 L Pulse Oximetry 98 99 Oxygen Delivery Method Oxygen Flow Rate 09/07/24 01:00 09/07/24 01:30 09/07/24 01:30 Temperature Pulse Rate 52 L Respiratory Rate 14 Blood Pressure 103/64 103/57 L Pulse Oximetry 98 Oxygen Delivery Method Oxygen Flow Rate 09/07/24 02:00 09/07/24 02:00 09/07/24 02:44 Temperature 97.6 F Pulse Rate 51 L 58 L Respiratory Rate 13 18 Blood Pressure 108/56 L 96/58 L Pulse Oximetry 100 99 Oxygen Delivery Method Room Air Oxygen Flow Rate 0 09/07/24 05:15 Temperature 97.8 F Pulse Rate 68 Respiratory Rate 18 Blood Pressure 91/66 Pulse Oximetry 100 Oxygen Delivery Method Oxygen Flow Rate 0 Oxygen Delivery Method Room Air Oxygen Flow Rate 0 Narrative Exam Narrative: Physical Exam: GENERAL: The patient is not in any acute distressed. Awake and alert. HEENT: Nonicteric sclerae, PERRLA, EOMI. Oropharynx clear. Moist mucous membranes. Conjunctivae appear well perfused. HEART: Regular rate and rhythm without murmurs. No lower extremities edema. LUNGS: Clear to auscultation bilaterally. No wheezing, crackles or rhonchi ABDOMEN: Soft, positive bowel sounds, nontender. SKIN: No rash, no excessive bruising, petechiae, or purpura. NEUROLOGIC: AxO x 3. Cranial nerves II-XII intact without motor/sensory deficit. Objective Labs 09/06/24 22:56 09/06/24 22:56 Labs: Laboratory Results - last 24 hr 09/06/24 09/06/24 09/07/24 22:28 22:56 02:26 WBC 14.2 H RBC 3.64 L Hgb 9.1 L Hct 27.0 L MCV 74.0 L MCH 25.0 L MCHC 33.7 RDW 19.2 H Plt Count 218 Neut % (Auto) Not Reportable Lymph % (Auto) Not Reportable [place] % (Auto) Not Reportable Eos % (Auto) Not Reportable Baso % (Auto) Not Reportable Lymph # (Auto) Not Reportable [place] # (Auto) Not Reportable Baso # (Auto) Not Reportable Total Counted 100 Seg Neutrophils % 48.0 Band Neutrophils % 6.0 Lymphocytes % (Manual) 30.0 Atypical Lymphs % 7.0 H Monocytes % (Manual) 6.0 Eosinophils % (Manual) 3.0 Neutrophils # (Manual) 7668 H Nucleated RBCs 1 H Platelet Estimate Adequate on smear RBC Morphology See below Anisocytosis 2+ H Microcytosis 1+ H Macrocytosis 1+ H Target Cells 2+ H Schistocytes 1+ H Percent Retic 7.7 H Sodium 138 Potassium 3.6 Chloride 106 Carbon Dioxide 22 BUN 8 L Creatinine 0.64 L Estimated GFR > 60 BUN/Creatinine Ratio 12.5 Glucose 103 H Lactate 0.9 Calcium 8.7 Total Bilirubin 2.3 H AST 41 ALT 21 Alkaline Phosphatase 84 Total Creatine Kinase 73 Troponin I < 0.012 Total Protein 8.2 Albumin 4.6 Globulin 3.6 Albumin/Globulin Ratio 1.3 Lipase 222 Urine Color Yellow Urine Appearance Clear Urine pH 6.5 Ur Specific Juda 1.010 Urine Protein Negative Urine Glucose (UA) Negative Urine Ketones Negative Urine Occult Blood Negative Urine Nitrate Negative Urine Bilirubin Negative Urine Urobilinogen 1.0 Ur Leukocyte Esterase Negative Urine RBC None seen Urine WBC None seen Ur Squamous Epith Cells None seen Urine Bacteria None seen Ur Culture Indicated? Cult not indicated Vol Urine Centrifuged 10ml (spun) SARS-CoV-2 (PCR) Negative Influenza A (RT-PCR) Flu a negative Influenza B (RT-PCR) Flu b negative RSV (PCR) Negative Assessment & Plan Assessment & Plan narrative: Sickle Cell Crisis. Admit the patient to medical observation. Continue aggressive IVF and Pain control with IV dilaudid prn. Leukocytosis. Likely from pain. CXR negative. Pending UA as patient has not produce urine yet. Follow up UA and monitor for infection/sepsis. chronic anemia. Hb at baseline. monitor for now. Note patient did have 2nd degree AVB type one. Global Program Director was called from ER and states we can just monitor for now. Not likely related to SCC. Dehydration. IVF. DVT PPx SCD and early ambulation. Code status full code Disposition home in 1-2 days Time-Based Coding :: [TOTAL MINUTES] spent with patient and on the chart (including review of chart, obtaining history, exam, reviewing outside data, placing orders, documenting exam and treatment plan, and counseling patient) on [DATE].
[2024-09-07] MEDS: HYDROCODONE/ACET 5/325 TABLET 2 TAB PO (09:42)
[2024-09-07 09:45] LABS: Ur Creatinine Normal (Normal); Ur Specific Gravity Normal (Normal); Urine Amphetamines Negative (Negative); Urine Barbiturates Negative (Negative); Urine Benzodiazepines Negative (Negative); Urine Cocaine Negative (Negative); Urine MDMA Negative (Negative); Urine Methadone Negative (Negative); Urine Methamphetamines Negative (Negative); Urine Opiates Negative (Negative); Urine Oxycodone Negative (Negative); Urine Phencyclidine Negative (Negative); Urine THC Positive (Negative); Urine Tricyclic Antidepressant Negative (Negative); Urine pH Normal (Normal)
--- NOTE | 2024-09-07 10:48 | DI.ECHO.S_ITS ---
[place] +---------+ Hospital : : [address] : : [place] : : [id number] : : Phone: [phone] Echocardiogram Report + + :Name: FAVIAN GARCIA Study Date: 09/07/2024 Height: 60 in : :Hospital ReadingLocation: Weight: 127 lb: : Gender: Male BSA: 1.5 m2 : :: 2000 Age: 24 yrs BP: 91/66 mmHg: :Reason For Study: Sickle Cell disease : :Ordering Physician: SHARRON, : :NAYELI Performed By: Tracee Cramer : :Referring: NAYELI MCDERMOTT : + + Interpretation Summary Sinus bradycardia with wide QRS complexes. Heart rate is 44-51 bpm during the exam. First-degree AV block. Mobitz 1 AV block with dropped beats. Normal LV size, wall thickness, wall motion and LV systolic function. Ejection fraction is 50-55%. Severe biatrial enlargement. No significant valvular abnormalities. Estimated PA systolic pressure is is 29 mm Hg assuming RA pressure of 3 mm Hg. No prior study available for comparison. Procedure: A two-dimensional transthoracic echocardiogram with color flow and Doppler was performed. The study quality was technically good. There is no prior echocardiogram noted for this patient. The heart rate ranged between 46- 51 bpm during the study. Left Ventricle: The left ventricle is normal in size and wall thickness. The ejection fraction is estimated to be 50-55%. Diastolic parameters suggest a relaxation abnormality of the left ventricle, consistent with probable normal filling pressures. Right Ventricle: The right ventricle grossly appears normal in size with probable normal systolic function. Atria: The left atrium is severely dilated. The right atrium is severely dilated. The interatrial septum grossly appears intact with no obvious evidence for an atrial septal defect. Mitral Valve: The mitral valve leaflets appear borderline thickened, but open well. There is trace mitral regurgitation. Aortic Valve: The aortic valve is trileaflet. The aortic valve opens well. No aortic regurgitation is present. Tricuspid Valve: The tricuspid valve leaflets are thin and pliable. There is mild to moderate tricuspid regurgitation. The right ventricular systolic pressure is estimated to be at least 28 mmHg based on an estimated right atrial pressure of 3 mm Hg. Pulmonic Valve: The pulmonic valve is not well seen, but is grossly normal. There is a trace or physiologic amount of pulmonic regurgitation. Great Vessels: The aortic root is normal size. The ascending aorta is normal in size. The aortic arch is normal in size. The IVC is of normal diameter and collapses greater than 50% with a sniff. This suggests a low right atrial pressure of 3 mm Hg. Pericardium/ Pleura There is no pericardial effusion. There is no pleural effusion. MMode/2D Measurements & Calculations LVIDd: 5.4 cm LVOT diam: 2.0 cm LVIDs: 3.8 cm Ao root diam: 2.8 cm FS: 30.6 % asc Aorta Diam: 2.5 cm EPSS: 0.55 cm Ao Arch Diam (Prox Trans): 2.1 cm IVSd: 0.87 cm LVPWd: 0.98 cm LV lorenzana. diameter/BSA (cm/m^2): 3.5 LV sys. diameter/BSA (cm/m^2): 2.5 LA A2 area: 26.9 cm2 RA long axis: 5.0 cm LA A4 area: 27.8 cm2 RA area: 22.1 cm2 LA length (vol): 6.4 cm RA vol: 82.9 ml LA vol: 99.1 ml RA : 53.9 ml/m2 LA vol index: 64.4 ml/m2 IVC diam: 1.8 cm RVD1 (basal): 3.1 cm TAPSE: 2.5 cm Doppler Measurements & Calculations Ao V2 max: 134.3 cm/sec LVOT Max Kashif: 94.0 cm/sec Ao V2 mean: 89.4 cm/sec LV V1 max P.5 mmHg Ao max P.2 mmHg LV V1 VTI: 21.9 cm Ao mean P.7 mmHg YOJANA(I,D): 2.2 cm2 Ao V2 VTI: 30.6 cm YOJANA(V,D): 2.2 cm2 sev ratio: 0.72 YOJANA indexed to BSA (cm^2/m^2): 1.4 MV E max kashif: 73.9 cm/sec TR max kashif: 237.3 cm/sec MV A max kashif: 47.6 cm/sec TR max P.6 mmHg MV E/A: 1.6 PA V2 max: 77.8 cm/sec Med Peak E' Kashif: 13.5 cm/sec PA V2 mean: 53.7 cm/sec E/E' med: 5.5 PA mean P.3 mmHg Lat Peak E' Kashif: 20.1 cm/sec E/E' lat: 3.7 E/e' average: 4.6 MV dec time: 0.18 sec Pulm Marsha Rodney Kashif: 18.2 cm/sec SV(LVOT): 67.8 ml Electronically signed by: Shavonne Nolan M.D. on [place] Physician:09/07/2024 04:11 PM
[2024-09-07] MEDS: HYDROMORPHONE 0.5 MG INJ 1 MG IV ×3 (12:05→17:58)
[2024-09-07 13:15] LABS: Magnesium 1.8 mg/dL (1.6-2.3)
--- NOTE | 2024-09-07 14:47 | CM.DANOTE ---
DPA: Patient is a 24 y/o m admitted c back pain with a PMH of sickle cell, and recent frequent ED visits/admissions. Patient states he lives at home with his girlfriend and will return at d/c. Patient able to change his health insurance to a plan in network with the PCP he recently established with [facility]. Will notify when is his discharged. No needs identified at this time- per MD in rounds, patient d/c in 1-2 days pending pain control and cardiac issues resolve. 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 No Advance Directives on File No History Provided By Patient Has Patient been admitted in last 30 Yes days? Comment fx admit d/t sickle cell crisis Prior Living Arrangements Apartment/Condo Household Members significant other Independent with ADL's Yes Is patient alert and oriented? Yes Caregiver for Another No Barriers to Discharge No Discharge Plan Home Transportation Arrangement Sig Other to transport Referrals Initiated None needed
[2024-09-07] MEDS: ONDANSETRON 4 MG/2 ML INJ IV ×2 (15:01→18:42)
--- NOTE | 2024-09-07 16:49 | P.PN_ITS ---
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 Pt reports he is not having any lightheadedness/dizziness. He notes his pain is in his left low back. No chest pain. He has an appt w/his new PCP 09/14/24 (his insurance changed and goes into effect 09/14). reports his pain is not well controlled w/current dose of hydromorphone 0.5 mg. Oxycodone is helping. Current pain 01/21. Exam Vital Signs (past 8 hours): - 09/07/24 12:00 Temperature 97.2 F L Pulse Rate 60 Respiratory Rate 14 Blood Pressure 118/74 Pulse Oximetry 100 Oxygen Flow Rate 0 Oxygen Delivery Method Room Air Oxygen Flow Rate 0 Narrative Exam Narrative: GEN: Pleasant adult male, Alert and oriented x3 HEENT: Normocephalic, face symmetric CHEST: Respiratory excursions symmetric, clear to auscultation bilaterally CV: Mildly bradycardic with regular rhythm, no murmurs, rubs, gallops, PMI nondisplaced ABD: Soft, nontender, nondistended, bowel sounds present in all 4 quadrants, no organomegaly or masses appreciated EXTR: Warm, well perfused, no clubbing/cyanosis/edema, contracture noted to left upper extremity SKIN: Warm and dry, without rash Objective Labs 09/06/24 22:56 09/06/24 22:56 Labs: Laboratory Results - last 24 hr 09/06/24 09/06/24 09/07/24 22:28 22:56 02:26 WBC 14.2 H RBC 3.64 L Hgb 9.1 L Hct 27.0 L MCV 74.0 L MCH 25.0 L MCHC 33.7 RDW 19.2 H Plt Count 218 Neut % (Auto) Not Reportable Lymph % (Auto) Not Reportable [place] % (Auto) Not Reportable Eos % (Auto) Not Reportable Baso % (Auto) Not Reportable Lymph # (Auto) Not Reportable [place] # (Auto) Not Reportable Baso # (Auto) Not Reportable Total Counted 100 Seg Neutrophils % 48.0 Band Neutrophils % 6.0 Lymphocytes % (Manual) 30.0 Atypical Lymphs % 7.0 H Monocytes % (Manual) 6.0 Eosinophils % (Manual) 3.0 Neutrophils # (Manual) 7668 H Nucleated RBCs 1 H Platelet Estimate Adequate on smear RBC Morphology See below Anisocytosis 2+ H Microcytosis 1+ H Macrocytosis 1+ H Target Cells 2+ H Schistocytes 1+ H Percent Retic 7.7 H Sodium 138 Potassium 3.6 Chloride 106 Carbon Dioxide 22 BUN 8 L Creatinine 0.64 L Estimated GFR > 60 BUN/Creatinine Ratio 12.5 Glucose 103 H Lactate 0.9 Calcium 8.7 Magnesium Total Bilirubin 2.3 H AST 41 ALT 21 Alkaline Phosphatase 84 Total Creatine Kinase 73 Troponin I < 0.012 Total Protein 8.2 Albumin 4.6 Globulin 3.6 Albumin/Globulin Ratio 1.3 Lipase 222 Urine Color Yellow Urine Appearance Clear Urine pH 6.5 Ur Specific [place] 1.010 Urine Protein Negative Urine Glucose (UA) Negative Urine Ketones Negative Urine Occult Blood Negative Urine Nitrate Negative Urine Bilirubin Negative Urine Urobilinogen 1.0 Ur Leukocyte Esterase Negative Urine RBC None seen Urine WBC None seen Ur Squamous Epith Cells None seen Urine Bacteria None seen Ur Culture Indicated? Cult not indicated Vol Urine Centrifuged 10ml (spun) U Opiates 300ng/mL cut Negative Ur Oxycodone Screen Negative Urine Methadone Screen Negative Ur Barbiturates Screen Negative U Tricyclic Antidepress Negative Ur Phencyclidine Scrn Negative Ur Amphetamines Screen Negative U Methamphetamines Scrn Negative Ur MDMA Scrn (Ecstasy) Negative U Benzodiazepines Scrn Negative Urine Cocaine Screen Negative U Marijuana (THC) Screen Positive H Urine Specific [place] Ur Creatinine SARS-CoV-2 (PCR) Negative Influenza A (RT-PCR) Flu a negative Influenza B (RT-PCR) Flu b negative RSV (PCR) Negative 09/07/24 09/07/24 02:26 12:47 WBC RBC Hgb Hct MCV MCH MCHC RDW Plt Count Neut % (Auto) Lymph % (Auto) [place] % (Auto) Eos % (Auto) Baso % (Auto) Lymph # (Auto) [place] # (Auto) Baso # (Auto) Total Counted Seg Neutrophils % Band Neutrophils % Lymphocytes % (Manual) Atypical Lymphs % Monocytes % (Manual) Eosinophils % (Manual) Neutrophils # (Manual) Nucleated RBCs Platelet Estimate RBC Morphology Anisocytosis Microcytosis Macrocytosis Target Cells Schistocytes Percent Retic Sodium Potassium Chloride Carbon Dioxide BUN Creatinine Estimated GFR BUN/Creatinine Ratio Glucose Lactate Calcium Magnesium 1.8 Total Bilirubin AST ALT Alkaline Phosphatase Total Creatine Kinase Troponin I Total Protein Albumin Globulin Albumin/Globulin Ratio Lipase Urine Color Urine Appearance Urine pH Normal Ur Specific [place] Urine Protein Urine Glucose (UA) Urine Ketones Urine Occult Blood Urine Nitrate Urine Bilirubin Urine Urobilinogen Ur Leukocyte Esterase Urine RBC Urine WBC Ur Squamous Epith Cells Urine Bacteria Ur Culture Indicated? Vol Urine Centrifuged U Opiates 300ng/mL cut Ur Oxycodone Screen Urine Methadone Screen Ur Barbiturates Screen U Tricyclic Antidepress Ur Phencyclidine Scrn Ur Amphetamines Screen U Methamphetamines Scrn Ur MDMA Scrn (Ecstasy) U Benzodiazepines Scrn Urine Cocaine Screen U Marijuana (THC) Screen Urine Specific [place] Normal Ur Creatinine Normal SARS-CoV-2 (PCR) Influenza A (RT-PCR) Influenza B (RT-PCR) RSV (PCR) [facility] Medical History PTSD (post-traumatic stress disorder) Depression Anxiety Seizure Anemia Avascular necrosis of bone Contracture, left elbow Contracture, left hand CVA (cerebral vascular accident) Sickle cell anemia Surgical History History of shoulder surgery 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 Family History Father Cancer Sickle cell trait Lupus Mother Sickle cell trait Brother Sickle cell trait Social History household members: significant other Smoking Status: Never smoker alcohol intake: never Assessment & Plan Assessment & Plan narrative: 1. Sickle cell disease with acute back pain Patient is admitted for ongoing treatment. He continues on hydroxyurea and penicillin. He does appear to be mildly dehydrated, as lab was unable to draw blood work this morning. Urine is somewhat dark. We will continue IV fluid hydration. Will increase hydromorphone from 0.5 mg to 1 mg IV q.2 hours. Goal pain is 4/10 at rest. 2. Leukocytosis Mild, at baseline. No evidence of acute infection. He is post splenectomy. Unclear what his vaccination status is. 3. Wenckebach block with bradycardia Will obtain an echocardiogram. Will likely need outpatient cardiology consultation. 4. Remote stroke at the age of 1 secondary to sickle cell disease Hemiparesis is at baseline. 4. Anemia, secondary to sickle cell disease Hemoglobin is stable at 9.1, which is within his usual range. Reticulocyte is stable at 7.7 %. Total bilirubin stable at 2.3, which is improved from September 04 when it was 3.9. Code status Full Prophylaxis Will start Lovenox given his sickle cell disease Disposition Home once current sickle cell crisis resolved Time-Based Coding :: [TOTAL MINUTES] spent with patient and on the chart (including review of chart, obtaining history, exam, reviewing outside data, placing orders, documenting exam and treatment plan, and counseling patient) on [DATE].
[2024-09-07] MEDS: HYDROMORPHONE 1 MG INJ IV ×2 (21:00→23:11)
[2024-09-07] MEDS: PENICILLIN VK 250 MG TABLET PO (21:27)
[2024-09-08] VITALS: BP 115/74; PULSE 66; RESP 17; TEMP 36.6; O2SAT 99
[2024-09-08] MEDS: HYDROMORPHONE 1 MG INJ IV ×3 (03:48→11:46)
[2024-09-08 04:00] VITALS: BP 110/74; PULSE 62; RESP 18; TEMP 36.7; O2SAT 100
[2024-09-08 06:21] LABS: Add Manual Diff / Slide Review NO; Basophils Absolute Auto 100 /uL (0-100); Basophils Percent Auto 1.4 % (0-2); Eosinophils Absolute Auto 400 /uL (0-450); Eosinophils Percent Auto 4.1 % (2-4); Hematocrit 25.2 % (41-53); Hemoglobin 8.7 g/dL (13.5-17.5); Lymphocytes Absolute Auto 2300 /uL (1100-4500); Lymphocytes Percent Auto 22.7 % (25-40); Mean Corpuscular HGB Conc 34.4 % (30-36); Mean Corpuscular Hemoglobin 25.2 PG (26-34); Mean Corpuscular Volume 73.4 fL (80-100); Monocytes Absolute Auto 1100 /uL (0-900); Monocytes Percent Auto 10.4 % (3-14); Neutrophils Absolute Auto 6300 /uL (1500-7000); Neutrophils Percent Auto 61.4 % (50-75); Platelet Count 188 X10^3/uL (150-400); Red Blood Cell Count 3.43 X10^6/uL (4.5-5.9); Red Cell Distribution Width 19.8 % (11.6-14.8); White Blood Cell Count 10.2 X10^3/uL (4.5-11.0)
[2024-09-08 06:25] LABS: BUN Creatinine Ratio 4.7 (6-22); Blood Urea Nitrogen 3 mg/dL (9-20); Calcium 8.2 mg/dL (8.4-10.2); Carbon Dioxide 23 mmol/L (22-32); Chloride 106 mmol/L (98-107); Estimated Glomerular Filt Rate > 60 mL/min (>60); Glucose 86 mg/dL (70-100); HEMOLYSIS 17 (0-50); Magnesium 1.7 mg/dL (1.6-2.3); Potassium 3.7 mmol/L (3.4-5.1); Sodium 135 mmol/L (137-145)
[2024-09-08 08:00] VITALS: BP 107/60; PULSE 61; RESP 10; TEMP 36.5; O2SAT 100
--- NOTE | 2024-09-08 08:17 | PC.NURSE ---
pt awake c/o back and leg pain level 6/10 medicated with dilaudid 1mg ivp.
[2024-09-08] MEDS: SODIUM CHLORIDE 0.9% 1,000 ML 100 ML IV (09:12)
[2024-09-08] MEDS: PENICILLIN VK 250 MG TABLET PO (09:37)
--- NOTE | 2024-09-08 10:31 | CM.DPC ---
DCP Cont: Per MD, pt was vomiting yesterday and still not ready for discharge yet today and will likely need outpt Makeup Sales Advisor referral at discharge. VISHNU Ballard
[2024-09-08 11:42] VITALS: BP 103/63; PULSE 59; RESP 12; TEMP 36.6; O2SAT 97
[2024-09-08] MEDS: OXYCODONE/ACETAMINOPHEN 5/325 TABLET 1 TAB PO (15:02)
--- NOTE | 2024-09-08 17:33 | PM.DS.1 ---
History of Present Illness History of Present Illness Chief complaint: back px Narrative: Per history and physical: 24 year old male with past medical history of Sickle Cell disease presents with lower back pain. Of note, the patient is very well known to our hospital and has been admitted many times for sickle cell crisis. The patient also has been seen twice in the last week for pain but was deemed stable and was sent home from the ER. The patient however returns today with worsening lower back pain. The patient states that this is his third ER visit and the pain is severe. The patient however denies any fever, chills, nausea, vomiting, diarrhea, dysuria, chest pain or shortness of breath. The patient also denies any coughing. In our ER, the patient was hemodynamically stable. Two days ago the patient lumbar spine xray was negative for any acute pathology. WBC 14 which was elevated compared to two days ago. CXR clear but UA pending as patient was not able to produce urine yet. The patient was given IVF and IV dilaudid. Due to ongoing pain, our ER physician requested for admission. Labs otherwise were relatively stable. Discharge Providers Provider Date of admission: 09/07/24 01:13 Discharge Date: 09/08/24 Primary care physician: Jen Albarran [facility] Discharge provider: Willa Petersen MD Summary Hospital Course Discharge Diagnosis: 1. Sickle cell disease with acute back pain 2. Leukocytosis 3. Wenckebach block with bradycardia 4. Remote stroke at the age of 1 secondary to sickle cell disease 5. Anemia, secondary to sickle cell disease Hospital Course: 24-year-old male with history of sickle cell disease who presented with sickle cell crisis with pain. He was placed on IV fluids and oral and IV pain medications. He had no indication for transfusion. He was noted to have evidence of a Wenckebach block during this hospitalization. An echocardiogram was done which showed no evidence of structural abnormalities. I did speak with Dr. Nolan, cardiology, who did recommend outpatient Cardiology consult regarding this new electrical abnormality. Patient remained asymptomatic from a standpoint of the AV block throughout his hospitalization. On the date of discharge, patient was eating and drinking without difficulty. He had no chest pain, shortness for breath, or lightheadedness. His pain was better controlled. He requested discharge home. I did recommend follow-up with Hematology or a sickle cell center to look into new or treatments that may be available in our area. Status at Discharge Cognitive/behavioral status at discharge: at baseline, oriented Functional status at discharge: independent ambulation Overall status at discharge: patient is progressing back to baseline Time Spent with Patient Time spent: Less than 30 minutes Exam Vital Signs (past 8 hours): - 09/08/24 11:42 Temperature 97.8 F Pulse Rate 59 L Respiratory Rate 12 Blood Pressure 103/63 Pulse Oximetry 97 Oxygen Flow Rate 0 Oxygen Delivery Method Room Air Oxygen Flow Rate 0 Narrative Exam Narrative: GEN: Pleasant adult male, Alert and oriented x3 HEENT: Normocephalic, face symmetric CHEST: Respiratory excursions symmetric, clear to auscultation bilaterally CV: Regular rate and rhythm, no murmurs, rubs, gallops, PMI nondisplaced ABD: Soft, nontender, nondistended, bowel sounds present in all 4 quadrants, no organomegaly or masses appreciated EXTR: Warm, well perfused, no clubbing/cyanosis/edema, contracture noted to left upper extremity SKIN: Warm and dry, without rash Objective Labs 09/08/24 05:49 09/08/24 05:49 Labs: Laboratory Results - last 24 hr 09/08/24 05:49 WBC 10.2 RBC 3.43 L Hgb 8.7 L Hct 25.2 L MCV 73.4 L MCH 25.2 L MCHC 34.4 RDW 19.8 H Plt Count 188 Neut % (Auto) 61.4 Lymph % (Auto) 22.7 L [place] % (Auto) 10.4 Eos % (Auto) 4.1 H Baso % (Auto) 1.4 Neut # (Auto) 6300 Lymph # (Auto) 2300 [place] # (Auto) 1100 H Eos # (Auto) 400 Baso # (Auto) 100 Sodium 135 L Potassium 3.7 Chloride 106 Carbon Dioxide 23 BUN 3 L Creatinine 0.64 L Estimated GFR > 60 BUN/Creatinine Ratio 4.7 L Glucose 86 Calcium 8.2 L Magnesium 1.7 PFSH Medical History PTSD (post-traumatic stress disorder) Depression Anxiety Seizure Anemia Avascular necrosis of bone Contracture, left elbow Contracture, left hand CVA (cerebral vascular accident) Sickle cell anemia Surgical History History of shoulder surgery 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 Family History Father Cancer Sickle cell trait Lupus Mother Sickle cell trait Brother Sickle cell trait Social History household members: significant other Smoking Status: Never smoker alcohol intake: never Discharge Plan Discharge Plan Patient Disposition: Home Provider Discharge Comment: 1) Continue to work on staying hydrated 2) Take your hydroxyurea and penicillin as prescribed 3) Take your pain medications as needed 4) Follow up with your primary care provider on Sep 14 as planned 5) Please schedule an appointment with the Cardiology clinic d/t your new heart block found this admission. 6) Please get a referral to hematology/sickle cell clinic in [place] to consider additional treatment Return to the ED for: fevers/chills/increased pain/chest pain/shortness of breath/dizziness Discharge orders & Medications Prescriptions: Continued penicillin V potassium 250 mg tablet 250 mg PO BID Qty: 30 0RF ondansetron 4 mg tablet,disintegrating 4 mg PO Q8H PRN (Reason: nausea and vomiting) Qty: 20 0RF naloxone [Narcan] 4 mg/actuation spray,non-aerosol 4 mg intranasal Q2M PRN (Reason: opioid overdose) Qty: 2 0RF Rx Instructions: spray 1 dose into ONE nostril; alternate nostrils w each dose until help arrives hydroxyurea (sickle cell) 200 mg capsule 200 mg PO DAILY Qty: 30 0RF oxycodone-acetaminophen [Percocet] 5-325 mg tablet 1 tab PO Q4-6H PRN (Reason: pain) Qty: 30 0RF Discontinued doxycycline hyclate 100 mg Tablet 100 mg PO BID Qty: 14 0RF amoxicillin-pot clavulanate 875-125 mg tablet 1 tab PO BID Qty: 20 0RF albuterol sulfate 90 mcg/actuation HFA aerosol inhaler 2 puff inhalation Q6H PRN (Reason: shortness of breath or wheezing) Qty: 8.5 0RF hydrocodone-acetaminophen 5-325 mg tablet 1 tab PO Q6H PRN (Reason: pain) Qty: 14 0RF Follow up/Referrals: Jen Albarran FNP-BC [Primary Care Provider] - Discharge Health Status Multidrug resistant organism: No MDRO Diet/Activity/Treatments Diet: Diet as Tolerated and Regular Activity: As tolerated Oxygen: N/A Visit Report/Discharge Packet Instructions: Heart Block -- Adult, DI for Sickle Cell Anemia, Pain Crisis -- Adult Stand Alone Forms: Patient Portal/API, Stroke Signs & Symptoms Discharge Data Primary Care Provider: Jen Albarran Attending Provider: Ace Frederick Date/Time: 09/07/24 01:13
== END 2024-09-08 15:15 | disposition home or self-care (01) ==
LOC: ED 09-07 01:13 → AC 09-07 01:14
PROVIDERS: Family Medicine; Admitting Provider Internal Medicine; Emergency Provider Emergency Medicine; PCP Nurse Practitioner Family; Referring Provider Emergency Medicine; Visit Provider Internal Medicine
DX: D57.00 Hb-SS disease with crisis, unspecified (principal); D72.829 Elevated white blood cell count, unspecified; E86.0 Dehydration; I44.1 Atrioventricular block, second degree; I69.354 Hemiplegia and hemiparesis following cerebral infarction affecting left non-dominant side; I69.398 Other sequelae of cerebral infarction; M24.542 Contracture, left hand; R00.1 Bradycardia, unspecified; D63.8 Anemia in other chronic diseases classified elsewhere; Z90.81 Acquired absence of spleen
CPT/HCPCS: 87635; 87400 ×2; 87420; 0241U; 36415; 71045; 80048; 80053; 80305; 81001; 82550; 83605; 83690; 83735; 84484; 85007; 85025; 85045; 87040; 93005; 93306; 96361; 96374; 96375; 96376; 99284; G0378; J1171; J2405

== ENCOUNTER 2024-09-26 07:14 | Emergency (ER) | payer OTHER, SELFPAY ==
[2024-09-07 01:26] VITALS: BMI 19.3
[2024-09-26] VITALS (10 sets, daily range): BP systolic 95–112; BP diastolic 51–76; PULSE 58–77; RESP 16; TEMP 36.8–36.9; O2SAT 92–98; BMI 18.6
--- NOTE | 2024-09-26 07:39 | ED_ITS ---
HPI - Back Pain/Injury General Chief Complaint: Back Pain/Injury Stated Complaint: sickle cell crisis Time Seen by Provider: 09/26/24 07:16 Source: patient, RN notes reviewed and old records reviewed Mode of arrival: Ambulatory Limitations: no limitations History of Present Illness HPI Narrative: 24-year-old male with a history of sickle cell disease, history of stroke and left hemiparesis at age 1, avascular necrosis, prior right hip replacement, prior splenectomy and cholecystectomy. Patient comes in with complaint of low back pain radiating down both legs. States he has had similar pain with prior sickle crisis. Denies any new numbness, tingling or weakness. No fevers or chills. Denies any chest pain or shortness of breath. No nausea or vomiting. No diarrhea or constipation, no new urinary symptoms. Patient states no known drug allergies. Currently on penicillin, folic acid and hydroxyurea. No tobacco, no regular alcohol, no regular recreational drugs. Has a primary care physician but has not established with Hematology. Related Data Previous Rx's Medication Instructions Recorded hydroxyurea (sickle cell) 200 mg 200 mg PO DAILY #30 caps 07/01/23 capsule penicillin V potassium 250 mg 250 mg PO BID #30 tabs 07/28/24 tablet naloxone 4 mg/actuation nasal 4 mg intranasal Q2M PRN opioid 07/31/24 spray (Narcan) overdose #2 ea ondansetron 4 mg disintegrating 4 mg PO Q8H PRN nausea and 07/31/24 tablet vomiting #20 tabs oxycodone-acetaminophen 5 mg-325 1 tab PO Q4-6H PRN pain #30 tabs /26/25 mg tablet (Percocet) Allergies Allergy/AdvReac Type Severity Reaction Status Date / Time No Known Drug Allergies Allergy Verified 09/26/24 07:30 Review of Systems Review of Systems ROS Unobtainable: All systems reviewed & are unremarkable except as noted in HPI and below Patient History Medical History PTSD (post-traumatic stress disorder) Depression Anxiety Seizure Anemia Avascular necrosis of bone Contracture, left elbow Contracture, left hand CVA (cerebral vascular accident) Sickle cell anemia Surgical History History of shoulder surgery 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 Family History Father Cancer Sickle cell trait Lupus Mother Sickle cell trait Brother Sickle cell trait Social History household members: significant other Smoking Status: Never smoker alcohol intake: never Smoking Status: Never smoker alcohol intake frequency: holidays/special occasions only Exam Narrative Exam Narrative: GENERAL: Alert and oriented x three, male in mild distress HEENT: Head normocephalic, atraumatic, EOMI, pupils reactive, face symmetric, moist mucous membranes NECK: Supple, full range of motion CARDIOVASCULAR: Regular rate and rhythm without murmurs, rubs or gallops. No JVD. No edema bilateral lower extremities. RESPIRATORY: Breath sounds equal bilaterally, no wheezes rales or rhonchi. No tachypnea accessory muscle use. ABDOMEN: Soft, nontender. Normoactive bowel sounds all 4 quadrants. No guarding or rebound, rigidity, no mass : No CVA tenderness EXTREMITIES: Patient has contractures and atrophy of left upper extremity, weakness of left lower extremity. Normal range of motion of right upper and lower extremity. Neurovascularly intact. NEUROLOGICAL: Cranial nerves II through XII grossly intact. Moving all extremities SKIN: Warm, dry, no petechiae, no rashes or lesions. Initial Vital Signs Initial Vital Signs: Vital Signs Pulse Rate 77 09/26/24 07:15 Pulse Oximetry 98 09/26/24 07:15 Course Orders Ordered: Discontinued Medications Hydromorphone HCl (Hydromorphone 0.5 Mg Inj) 0.5 mg IV NOW ONE Stop: 09/26/24 07:41 Last Admin: 09/26/24 07:55 Dose: 0.5 mg Documented By: LILIAM Hydromorphone HCl (Hydromorphone 1 Mg Inj) 1 mg IV NOW ONE Stop: 09/26/24 08:58 Last Admin: 09/26/24 09:19 Dose: 1 mg Documented By: LILIAM Sodium Chloride (Normal Saline 0.9%) 1,000 mls @ 1,000 mls/hr IV BOLUS ONE Stop: 09/26/24 08:52 Last Infusion: 09/26/24 09:19 Dose: Infused Documented By: Admin: 09/26/24 07:55 Dose: 1,000 mls/hr Documented By: LILIAM Acetaminophen (Ofirmev) 1,000 mg in 100 mls @ 400 mls/hr IV NOW ONE Stop: 09/26/24 09:21 Last Infusion: 09/26/24 09:51 Dose: Infused Documented By: Admin: 09/26/24 09:18 Dose: 400 mls/hr Documented By: LILIAM Ketorolac Tromethamine (Ketorolac 30 Mg/Ml Vial) 15 mg IV NOW ONE Stop: 09/26/24 07:41 Last Admin: 09/26/24 07:55 Dose: 15 mg Documented By: LILIAM Vital Signs Vital signs: Vital Signs - 8 hr 09/26/24 07:30 Temperature 98.5 F Pulse Rate 72 Respiratory Rate 16 Blood Pressure 95/51 L Pulse Oximetry 97 Oxygen Delivery Method Room Air MDM - Back Pain/Injury Lab Data 09/26/24 07:25 09/26/24 07:25 Labs: Lab Results 09/26/24 Range/Units 07:25 WBC 11.6 H (4.5-11.0) X10^3/uL RBC 3.98 L (4.5-5.9) X10^6/uL Hgb 9.7 L (13.5-17.5) g/dL Hct 29.6 L (41-53) % MCV 74.5 L (80-100) fL MCH 24.4 L (26-34) PG MCHC 32.7 (30-36) % RDW 17.7 H (11.6-14.8) % Plt Count 322 (150-400) X10^3/uL Neut % (Auto) Not Reportable Lymph % (Auto) Not Reportable [place] % (Auto) Not Reportable Eos % (Auto) Not Reportable Baso % (Auto) Not Reportable Lymph # (Auto) Not Reportable [place] # (Auto) Not Reportable Baso # (Auto) Not Reportable Total Counted 100 Seg Neutrophils % 36.0 L (38-70) % Lymphocytes % (Manual) 52.0 H (25-45) % Atypical Lymphs % 2.0 H ( - 0) % Monocytes % (Manual) 9.0 (2-11) % Eosinophils % (Manual) 1.0 L (2-4) % Neutrophils # (Manual) 4176 (1004-2302) /uL Nucleated RBCs 1 H ( - 0) #/Diff RBC Morphology See below Polychromasia 1+ H Anisocytosis 2+ H Microcytosis 1+ H Macrocytosis 1+ H Sickle Cells 1+ H Schistocytes 1+ H Percent Retic 7.5 H (0.9-2.6) % PT 14.2 H (9.4-12.5) SECONDS INR 1.3 (0.9-1.3) APTT 27 (25.1-36.5) SECONDS Sodium 139 (137-145) mmol/L Potassium 4.0 (3.4-5.1) mmol/L Chloride 109 H (98-107) mmol/L Carbon Dioxide 21 L (22-32) mmol/L BUN 8 L (9-20) mg/dL Creatinine 0.62 L (0.66-1.25) mg/dL Estimated GFR > 60 (>60) mL/min BUN/Creatinine Ratio 12.9 (6-22) Glucose 100 (70-100) mg/dL Calcium 8.2 L (8.4-10.2) mg/dL Total Bilirubin 2.4 H (0.2-1.3) mg/dL AST 55 (17-59) IU/L ALT 28 (<50) IU/L Alkaline Phosphatase 72 (38-126) U/L Total Protein 7.6 (6.3-8.2) g/dL Albumin 4.3 (3.5-5.0) g/dL Globulin 3.3 (1.7-4.1) g/dL Albumin/Globulin Ratio 1.3 (1.0-2.8) Imaging Data Chest x-ray: Radiologist's Impression: [address] [address] XRay Report Signed Patient: Lucretia Keller MR#: [id number] : 2000 Acct:[id number] Age/Sex: 24 / M Date of Service: 09/26/24 Loc: ED Accession Number: [id number] Procedure: XR chest 1V Ordering Provider: Beverley Kumar D.O. PROCEDURE: XR CHEST 1V INDICATIONS: dizzy, hx sickle cell, back pain TECHNIQUE: One view of the chest was acquired. COMPARISON: [facility], CR, XR CHEST 1V, 09/06/2024, 22:13. FINDINGS: Surgical changes and devices: None. Lungs and pleura: Mild pulmonary vascular congestion. No focal infiltrate. No pleural effusions or pneumothorax. Mediastinum: Mediastinal contours appear normal. Heart size is normal. Bones and chest wall: Deformity involving left humeral head likely related to patient's clinical history of sickle cell disease . No suspicious bony lesions. Overlying soft tissues appear unremarkable. IMPRESSION: Mild congestion. No focal infiltrate, pleural effusion or pneumothorax. Dictated by: Jeremiah Haines M.D. on 09/26/2024 at 8:12 Approved by: Jeremiah Haines M.D. on 09/26/2024 at 8:13 ECG Data Attestation: I personally reviewed and interpreted this ECG as follows: Interpretation: Sinus rhythm first-degree AV block rate of 66 [place] 318 QRS of 92 QTC of 444. No acute ST elevation. Pretty T-waves in V1 appears to be biphasic V2. Patient has prior from 09/07/2024 appears similar in V1 but not V2 V3. MDM Narrative Medical decision making narrative: 24-year-old male known history of sickle cell, patient comes in with a complaint of low back pain radiating down legs states this is similar to prior episodes that he was had, denies any chest pain or shortness of breath. No fevers. Patient systolic blood pressures 95/51 this appears consistent with prior visits where his systolic ranges from 90s to 100 systolic range. No tachycardia, afebrile 97% on room air. Labs show white count 11.6 hemoglobin is 9.7 appears consistent with priors platelets are 322. Morphology pending recheck is 7.5. Coags show an INR 1.3 PTT of 27. Chemistries show a CO2 of 21 chloride of 109 sodium is 139 with a potassium of 4 BUN 8 creatinine 0.62 glucose is 100 bilirubin is 2.4 EKG sinus rhythm first-degree AV block rate of 66, no acute ST change T-waves in biphasic lateral leads Chest x-ray chest x-ray shows some mild congestion no focal infiltrate, pleural effusion or pneumothorax. Patient received fluids, pain medication. Rechecked patient has persistent pain we will give an additional dose and re- evaluate. Patient notes Tylenol has also been helpful in the past we will give a dose of this as well. Patient with history of sickle cell, labs were fairly close to baseline with priors. On rechecked at 10 23 patient is feeling much improved and requesting discharge home. He does not have the number for Cardiology but there was discussion about following up with them so we will provide this as well. Discharge Plan Departure Patient Disposition: Home Clinical Impression: Sickle cell anemia with pain Activity Restrictions/Additional Instructions: I hope you continue to feel improved. Contacts included below for Cardiology. Please call to follow up as you had a change to rhythm during your last hospitalization it is recommended that you be seen. Please call to set up an appointment. Please return for fevers, new or worsening chest pain, shortness of breath, lightheadedness or passing out, persistent vomiting, new swelling of extremities, new or worsening pain or other new or concerning changes. Prescriptions: No Action penicillin V potassium 250 mg tablet 250 mg PO BID Qty: 30 0RF ondansetron 4 mg tablet,disintegrating 4 mg PO Q8H PRN (Reason: nausea and vomiting) Qty: 20 0RF naloxone [Narcan] 4 mg/actuation spray,non-aerosol 4 mg intranasal Q2M PRN (Reason: opioid overdose) Qty: 2 0RF Rx Instructions: spray 1 dose into ONE nostril; alternate nostrils w each dose until help arrives hydroxyurea (sickle cell) 200 mg capsule 200 mg PO DAILY Qty: 30 0RF oxycodone-acetaminophen [Percocet] 5-325 mg tablet 1 tab PO Q4-6H PRN (Reason: pain) Qty: 30 0RF Referrals: Jen Albarran FNP-BC [Primary Care Provider] - Stand Alone Forms: Patient Portal/API/Survey
--- NOTE | 2024-09-26 07:40 | EKG_ITS ---
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
[2024-09-26 07:51] LABS: INR 1.3 (0.9-1.3); Prothrombin Time 14.2 SECONDS (9.4-12.5)
[2024-09-26 07:54] LABS: PTT Partial Thromboplastin Tim 27 SECONDS (25.1-36.5)
[2024-09-26] MEDS: SODIUM CHLORIDE 0.9% 1,000 ML 1000 ML IV (07:55)
[2024-09-26] MEDS: KETOROLAC 30 MG/ML VIAL 15 MG IV (07:55)
[2024-09-26] MEDS: HYDROMORPHONE 0.5 MG INJ IV (07:55)
[2024-09-26 07:59] LABS: Alanine Aminotransferase 28 IU/L (<50); Albumin 4.3 g/dL (3.5-5.0); Albumin Globulin Ratio 1.3 (1.0-2.8); Alkaline Phosphatase 72 U/L (38-126); Aspartate Aminotransferase 55 IU/L (17-59); BUN Creatinine Ratio 12.9 (6-22); Bilirubin Total 2.4 mg/dL (0.2-1.3); Blood Urea Nitrogen 8 mg/dL (9-20); Calcium 8.2 mg/dL (8.4-10.2); Carbon Dioxide 21 mmol/L (22-32); Chloride 109 mmol/L (98-107); Estimated Glomerular Filt Rate > 60 mL/min (>60); Globulin 3.3 g/dL (1.7-4.1); Glucose 100 mg/dL (70-100); HEMOLYSIS 35 (0-50); Sodium 139 mmol/L (137-145); Total Protein 7.6 g/dL (6.3-8.2)
[2024-09-26 08:41] LABS: Hematocrit 29.6 % (41-53); Hemoglobin 9.7 g/dL (13.5-17.5); Mean Corpuscular HGB Conc 32.7 % (30-36); Mean Corpuscular Hemoglobin 24.4 PG (26-34); Mean Corpuscular Volume 74.5 fL (80-100); Platelet Count 322 X10^3/uL (150-400); Red Blood Cell Count 3.98 X10^6/uL (4.5-5.9); Red Cell Distribution Width 17.7 % (11.6-14.8); White Blood Cell Count 11.6 X10^3/uL (4.5-11.0)
[2024-09-26 08:42] LABS: Add Manual Diff / Slide Review YES
[2024-09-26 08:54] LABS: Reticulocyte Count, Percent 7.5 % (0.9-2.6)
[2024-09-26] MEDS: ACETAMINOPHEN IV 1,000 MG/100 ML VIAL 400 MG IV (09:18)
[2024-09-26] MEDS: HYDROMORPHONE 1 MG INJ IV (09:19)
--- NOTE | 2024-09-26 10:23 | PC.NURSE ---
Lower back pain; see triage note. No injury; able to move all extremities. History of sickle cell.
[2024-09-26 10:48] LABS: Anisocytosis 2+; Macrocytosis 1+; Microcytosis 1+; Neutrophils Absolute Manual 4176 /uL (3000-5900); Nucleated Red Blood Cells 1 #/Diff; Total Cells Counted 100
[2024-09-26 10:49] LABS: Polychromasia 1+; Sickle Cells 1+
[2024-09-26 10:50] LABS: Schistocytes 1+
== END 2024-09-26 10:30 | disposition home or self-care (01) ==
PROVIDERS: Emergency Provider Emergency Medicine; PCP Nurse Practitioner Family
DX: D57.00 Hb-SS disease with crisis, unspecified (principal); D64.9 Anemia, unspecified; R42 Dizziness and giddiness; I44.0 Atrioventricular block, first degree
CPT/HCPCS: 71045; 80053; 85007; 85025; 85045; 85610; 85730; 93005; 93010; 96361; 96365; 96375; 96376; 99283; 99284; J0134; J1171; J1885

== ENCOUNTER 2024-09-28 01:14 | Emergency (ER) | payer OTHER, SELFPAY ==
[2024-09-07 01:26] VITALS: BMI 19.3
[2024-09-28] VITALS (12 sets, daily range): BP systolic 100–117; BP diastolic 61–65; PULSE 64–97; RESP 16–24; TEMP 37.1; O2SAT 94–100; BMI 18.6
--- NOTE | 2024-09-28 01:28 | DI.RAD.S_ITS ---
PROCEDURE: XR CHEST 1V INDICATIONS: sickle cell TECHNIQUE: One view of the chest was acquired. COMPARISON: [facility], CR, XR CHEST 1V, 08/04/2024, 10:14. [facility], CR, XR CHEST 1V, 09/06/2024, 22:13. [facility], CR, XR CHEST 1V, 09/26/2024, 7:51. FINDINGS: Surgical changes and devices: None. Lungs and pleura: Mild interstitial prominence can be seen. No pleural effusions or pneumothorax. Mediastinum: Mediastinal contours appear normal. Heart size is normal. Bones and chest wall: The bones demonstrate irregular sclerosis, which is most clearly demonstrated within the visualized right humeral head. Overlying soft tissues appear unremarkable. IMPRESSION: Mild interstitial prominence, without focal consolidation. Abnormal bones, which is consistent with prior sickle cell infarctions. Note: No significant discrepancy from the preliminary report. Dictated by: Александр Chandler M.D. on 09/28/2024 at 10:14 Approved by: Александр Chandler M.D. on 09/28/2024 at 10:15
[2024-09-28 01:57] LABS: Hemoglobin 9.8 g/dL (13.5-17.5); Mean Corpuscular HGB Conc 33.6 % (30-36); Mean Corpuscular Hemoglobin 24.9 PG (26-34); Platelet Count 323 X10^3/uL (150-400); Red Blood Cell Count 3.92 X10^6/uL (4.5-5.9)
[2024-09-28 02:04] LABS: Alanine Aminotransferase 26 IU/L (<50); Albumin 4.5 g/dL (3.5-5.0); Albumin Globulin Ratio 1.2 (1.0-2.8); Alkaline Phosphatase 69 U/L (38-126); Aspartate Aminotransferase 50 IU/L (17-59); BUN Creatinine Ratio 8.5 (6-22); Blood Urea Nitrogen 6 mg/dL (9-20); Calcium 8.3 mg/dL (8.4-10.2); Carbon Dioxide 24 mmol/L (22-32); Chloride 106 mmol/L (98-107); Estimated Glomerular Filt Rate > 60 mL/min (>60); Globulin 3.8 g/dL (1.7-4.1); Glucose 86 mg/dL (70-100); HEMOLYSIS 16 (0-50); Potassium 3.6 mmol/L (3.4-5.1); Sodium 140 mmol/L (137-145); Total Protein 8.3 g/dL (6.3-8.2)
[2024-09-28 02:12] LABS: Add Manual Diff / Slide Review YES
[2024-09-28 02:14] LABS: Anisocytosis 1+; Microcytosis 1+; Neutrophils Absolute Manual 8100 /uL (3000-5900); Nucleated Red Blood Cells 2 #/Diff; Polychromasia 1+; Schistocytes 1+; Target Cells 1+; Total Cells Counted 100
[2024-09-28 02:15] LABS: Sickle Cells 1+
[2024-09-28 03:02] LABS: Reticulocyte Count, Percent 8.5 % (0.9-2.6)
[2024-09-28] MEDS: SODIUM CHLORIDE 0.9% 1,000 ML 1000 ML IV (03:51)
[2024-09-28] MEDS: KETOROLAC 30 MG/ML VIAL 15 MG IV (03:52)
[2024-09-28] MEDS: HYDROMORPHONE 1 MG INJ IV ×2 (03:54→05:24)
--- NOTE | 2024-09-28 04:18 | ED.BACK ---
HPI - Back Pain/Injury General Chief Complaint: Back Pain/Injury Stated Complaint: Sickle cell crisis x5days Time Seen by Provider: 09/28/24 01:28 Source: patient and EMS Mode of arrival: Family Vehicle Limitations: no limitations History of Present Illness HPI Narrative: 24-year-old male with history of sickle cell disease history of stroke, left hemiparesis at age 1, avascular necrosis, prior right hip replacement, prior splenectomy and cholecystectomy. Patient presents with complaint of back and was seen by myself on 09/26/24, has 5 days of symptoms. Patient states similar pain in his back down both legs. No other new numbness tingling or weakness. No fevers or chills. Denies any chest pain, no shortness of breath no nausea or vomiting. No issues with bowel movements. No new urinary symptoms. Patient notes his throat was sore 1st thing in the morning very briefly resolved without any additional symptoms. Denies any drug allergies. Currently on penicillin, folic acid and hydroxyurea. Has been talk taking oxycodone at home for pain management. No tobacco, no regular alcohol, no recreational drugs. Follows with primary care has not established with Hematology. Has been encouraged to follow up with Cardiology. Related Data Previous Rx's Medication Instructions Recorded hydroxyurea (sickle cell) 200 mg 200 mg PO DAILY #30 caps 07/01/23 capsule penicillin V potassium 250 mg 250 mg PO BID #30 tabs 07/28/24 tablet naloxone 4 mg/actuation nasal 4 mg intranasal Q2M PRN opioid 07/31/24 spray (Narcan) overdose #2 ea ondansetron 4 mg disintegrating 4 mg PO Q8H PRN nausea and 07/31/24 tablet vomiting #20 tabs oxycodone-acetaminophen 5 mg-325 1 tab PO Q4-6H PRN pain #30 tabs 09/08/24 mg tablet (Percocet) Allergies Allergy/AdvReac Type Severity Reaction Status Date / Time No Known Drug Allergies Allergy Verified 09/26/24 07:30 Review of Systems Review of Systems ROS Unobtainable: All systems reviewed & are unremarkable except as noted in HPI and below Patient History Medical History Anemia Anxiety Avascular necrosis of bone Contracture, left elbow Contracture, left hand CVA (cerebral vascular accident) Depression PTSD (post-traumatic stress disorder) Seizure Sickle cell anemia Surgical History Hip joint replacement status History of shoulder surgery Status post splenectomy Family History Father Cancer Sickle cell trait Lupus Mother Sickle cell trait Brother Sickle cell trait Social History household members: significant other Smoking Status: Never smoker alcohol intake: never Smoking Status: Never smoker alcohol intake frequency: holidays/special occasions only Exam Narrative Exam Narrative: GENERAL: Alert and oriented x three, male in mild distress HEENT: Head normocephalic, atraumatic, EOMI, pupils reactive, face symmetric, moist mucous membranes NECK: Supple, full range of motion CARDIOVASCULAR: Regular rate and rhythm without murmurs, rubs or gallops. RESPIRATORY: Breath sounds equal bilaterally, no wheezes rales or rhonchi. No tachypnea accessory muscle use. ABDOMEN: Soft, nontender. Normoactive bowel sounds all 4 quadrants. No guarding or rebound, rigidity, no mass : No CVA tenderness EXTREMITIES: Patient has contracture left upper extremity with atrophy weakness of the left lower extremity. Normal range of motion right upper and lower extremity.. Neurovascularly intact NEUROLOGICAL: Cranial nerves II through XII grossly intact. Moving all extremities SKIN: Warm, dry, no petechiae, no rashes or lesions. Initial Vital Signs Initial Vital Signs: Vital Signs Temperature 98.7 F 09/28/24 01:35 Pulse Rate 93 H 09/28/24 01:35 Respiratory Rate 16 09/28/24 01:35 Blood Pressure 100/61 09/28/24 01:35 Pulse Oximetry 96 09/28/24 01:35 Oxygen Delivery Method Room Air 09/28/24 01:35 Course Orders Ordered: Discontinued Medications Hydromorphone HCl (Hydromorphone 1 Mg Inj) 1 mg IV NOW ONE Stop: 09/28/24 01:29 Last Admin: 09/28/24 03:54 Dose: 1 mg Documented By: Hydromorphone HCl (Hydromorphone 1 Mg Inj) 1 mg IV NOW ONE Stop: 09/28/24 04:52 Last Admin: 09/28/24 05:24 Dose: 1 mg Documented By: Hydromorphone HCl (Hydromorphone 0.5 Mg Inj) 0.5 mg IV NOW ONE Stop: 09/28/24 05:57 Last Admin: 09/28/24 06:21 Dose: 0.5 mg Documented By: Sodium Chloride (Normal Saline 0.9%) 1,000 mls @ 1,000 mls/hr IV BOLUS ONE Stop: 09/28/24 02:27 Last Infusion: 09/28/24 07:20 Dose: Infused Documented By: Admin: 09/28/24 03:51 Dose: 1,000 mls/hr Documented By: Acetaminophen (Ofirmev) 1,000 mg in 100 mls @ 400 mls/hr IV NOW ONE Stop: 09/28/24 05:05 Last Infusion: 09/28/24 06:18 Dose: Infused Documented By: Infusion: 09/28/24 05:23 Dose: 400 mls/hr Documented By: Infusion: 09/28/24 05:22 Dose: 0 mls/hr Documented By: Admin: 09/28/24 05:12 Dose: 400 mls/hr Documented By: Ketorolac Tromethamine (Ketorolac 30 Mg/Ml Vial) 15 mg IV NOW ONE Stop: 09/28/24 01:29 Last Admin: 09/28/24 03:52 Dose: 15 mg Documented By: Vital Signs Vital signs: Vital Signs - 8 hr 09/28/24 01:35 09/28/24 03:24 Temperature 98.7 F Pulse Rate 93 H 89 Respiratory Rate 16 24 Blood Pressure 100/61 111/65 Pulse Oximetry 96 100 Oxygen Delivery Method Room Air Room Air MDM - Back Pain/Injury Lab Data 09/28/24 01:08 09/28/24 01:08 Labs: Lab Results 09/28/24 Range/Units 01:08 WBC 15.0 H (4.5-11.0) X10^3/uL RBC 3.92 L (4.5-5.9) X10^6/uL Hgb 9.8 L (13.5-17.5) g/dL Hct 29.0 L (41-53) % MCV 74.0 L (80-100) fL MCH 24.9 L (26-34) PG MCHC 33.6 (30-36) % RDW 20.0 H (11.6-14.8) % Plt Count 323 (150-400) X10^3/uL Neut % (Auto) Not Reportable Lymph % (Auto) Not Reportable [place] % (Auto) Not Reportable Eos % (Auto) Not Reportable Baso % (Auto) Not Reportable Lymph # (Auto) Not Reportable [place] # (Auto) Not Reportable Baso # (Auto) Not Reportable Total Counted 100 Seg Neutrophils % 48.0 (38-70) % Band Neutrophils % 6.0 (3-7) % Lymphocytes % (Manual) 37.0 (25-45) % Monocytes % (Manual) 5.0 (2-11) % Eosinophils % (Manual) 2.0 (2-4) % Basophils % (Manual) 1.0 (0-1) % Metamyelocytes % 1.0 H (-0) % Neutrophils # (Manual) 8100 H (1242-3030) /uL Nucleated RBCs 2 H ( - 0) #/Diff RBC Morphology See below Polychromasia 1+ H Anisocytosis 1+ H Microcytosis 1+ H Sickle Cells 1+ H Target Cells 1+ H Schistocytes 1+ H Percent Retic 8.5 H (0.9-2.6) % Sodium 140 (137-145) mmol/L Potassium 3.6 (3.4-5.1) mmol/L Chloride 106 (98-107) mmol/L Carbon Dioxide 24 (22-32) mmol/L BUN 6 L (9-20) mg/dL Creatinine 0.71 (0.66-1.25) mg/dL Estimated GFR > 60 (>60) mL/min BUN/Creatinine Ratio 8.5 (6-22) Glucose 86 (70-100) mg/dL Calcium 8.3 L (8.4-10.2) mg/dL Total Bilirubin 3.0 H (0.2-1.3) mg/dL AST 50 (17-59) IU/L ALT 26 (<50) IU/L Alkaline Phosphatase 69 (38-126) U/L Total Protein 8.3 H (6.3-8.2) g/dL Albumin 4.5 (3.5-5.0) g/dL Globulin 3.8 (1.7-4.1) g/dL Albumin/Globulin Ratio 1.2 (1.0-2.8) MDM Narrative Medical decision making narrative: Labs show white count of 15 was 11.6 09/26/2024, hemoglobin appears stable at 9.8 was 9.7 last visit microcytic platelets are 323. Patient recheck his 8.5 was 7.5 on his most recent visit. Electrolytes are otherwise appropriate BUN 6 creatinine 0.71 bilirubin is 3 trending upwards from 2.4. LFTs are otherwise appropriate. Chest x-ray shows no acute infiltrate findings suggested bone infarcts within right humeral head review patient's prior visits 08/03/2024 notes similar changes. Patient's found on prior visits Toradol and Tylenol was helpful as well these were given along with narcotic pain medication Patient received fluids, Toradol and Dilaudid patient had some improvement but still painful. Fluids have not completed. Discussed admission with the patient he would like to see how he responds to third dose of pain medications. We will give 1 additional dose, complete fluids offered admission. Patient declines and prefers to discharge home. Discussed to return if persisting or worsening. Discharge Plan Departure Patient Disposition: Home Clinical Impression: Sickle cell anemia with pain Activity Restrictions/Additional Instructions: You should follow up with Cardiology as recommended at your last hospitalization. Please return for fevers, new or worsening chest pain, shortness of breath, lightheadedness or passing out, worsening pain, persistent vomiting, swelling of your extremities or other new or concerning changes. Prescriptions: No Action penicillin V potassium 250 mg tablet 250 mg PO BID Qty: 30 0RF ondansetron 4 mg tablet,disintegrating 4 mg PO Q8H PRN (Reason: nausea and vomiting) Qty: 20 0RF naloxone [Narcan] 4 mg/actuation spray,non-aerosol 4 mg intranasal Q2M PRN (Reason: opioid overdose) Qty: 2 0RF Rx Instructions: spray 1 dose into ONE nostril; alternate nostrils w each dose until help arrives hydroxyurea (sickle cell) 200 mg capsule 200 mg PO DAILY Qty: 30 0RF oxycodone-acetaminophen [Percocet] 5-325 mg tablet 1 tab PO Q4-6H PRN (Reason: pain) Qty: 30 0RF Referrals: Jen Albarran FNP-BC [Primary Care Provider] - Stand Alone Forms: Patient Portal/API/Survey
[2024-09-28] MEDS: ACETAMINOPHEN IV 1,000 MG/100 ML VIAL 400 MG IV (05:12)
[2024-09-28] MEDS: HYDROMORPHONE 0.5 MG INJ IV (06:21)
== END 2024-09-28 07:25 | disposition home or self-care (01) ==
PROVIDERS: Emergency Provider Emergency Medicine; PCP Nurse Practitioner Family
DX: D57.00 Hb-SS disease with crisis, unspecified (principal); Z96.641 Presence of right artificial hip joint
CPT/HCPCS: 71045; 80053; 85007; 85025; 85045; 93010; 99283; J0131; J1171; J1885

== ENCOUNTER 2024-09-28 16:38 | Observation (INO) | payer OTHER, SELFPAY ==
[2024-09-07 01:26] VITALS: BMI 19.3
[2024-09-28 16:46] VITALS: BP 114/69; PULSE 76; RESP 18; TEMP 36.8; O2SAT 97; BMI 19.8
--- NOTE | 2024-09-28 16:50 | EKG_ITS ---
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
[2024-09-28 17:17] LABS: Strep Grp A by PCR Rapid Negative (Negative)
--- NOTE | 2024-09-28 17:30 | ED_ITS ---
HPI - Headache General Chief Complaint: Headache Stated Complaint: body aches, WHITE, sore throat Time Seen by Provider: 09/28/24 16:55 Mode of arrival: Ambulatory History of Present Illness HPI Narrative: Patient is a 24-year-old male history of sickle cell disease history of stroke left hemiparesis avascular necrosis prior right hip replacement presenting for the 3rd time this week in the 2nd time today. He was discharged early this morning 8.5 previously 7.5. Was discussed admission but patient wanted to go home. He went home took a nap now still having headache body aches and generally does not feel well. Would be willing to be admitted this time for pain control Related Data Home Medications Medication Instructions Recorded Confirmed penicillin V potassium 250 mg 250 mg PO BID sickle cell 09/29/24 09/29/24 tablet Previous Rx's Medication Instructions Recorded hydroxyurea (sickle cell) 200 mg 200 mg PO DAILY #30 caps 07/01/23 capsule oxycodone-acetaminophen 5 mg-325 1 tab PO Q4-6H PRN pain #30 tabs 09/08/24 mg tablet (Percocet) Allergies Allergy/AdvReac Type Severity Reaction Status Date / Time No Known Drug Allergies Allergy Verified 09/26/24 07:30 Patient History Medical History Anemia Anxiety Avascular necrosis of bone Contracture, left elbow Contracture, left hand CVA (cerebral vascular accident) Depression PTSD (post-traumatic stress disorder) Seizure Sickle cell anemia Surgical History Hip joint replacement status History of shoulder surgery Status post splenectomy Family History Father Cancer Sickle cell trait Lupus Mother Sickle cell trait Brother Sickle cell trait Social History household members: significant other Smoking Status: Never smoker alcohol intake: never Smoking Status: Never smoker alcohol intake frequency: holidays/special occasions only Exam Initial Vital Signs Initial Vital Signs: Vital Signs Temperature 98.3 F 09/28/24 16:46 Pulse Rate 76 09/28/24 16:46 Respiratory Rate 18 09/28/24 16:46 Blood Pressure 114/69 09/28/24 16:46 Pulse Oximetry 97 09/28/24 16:46 Oxygen Delivery Method Room Air 09/28/24 16:46 GENERAL: Awake alert nontoxic 24-year-old male and in no acute distress. HEENT: Head atraumatic,EOMI, pupils reactive, face symmetric, moist mucous membranes CARDIOVASCULAR: Regular rate and rhythm without murmurs, rubs or gallops. RESPIRATORY: Breath sounds equal bilaterally, no wheezes rales or rhonchi. ABDOMEN: Soft, nontender. Normoactive bowel sounds all 4 quadrants. No guarding or rebound. EXTREMITIES: Normal range of motion, no clubbing or edema. Neurovascularly intact NEUROLOGICAL: Alert and oriented x4.Normal gait and speech. Cranial nerves II through XII grossly intact. Persistent left-sided deficits SKIN: Warm, dry, no laceration, no petechiae, no rashes or lesions. Course Orders Ordered: Acetaminophen (Acetaminophen 325 Mg Tablet) 650 mg PO Q6H PRN PRN Reason: Fever/Mild Pain (1-3) Enoxaparin Sodium (Enoxaparin 40 Mg/0.4 Ml Syringe) 40 mg SUBCUT DAILY [facility] Last Admin: 09/29/24 08:20 Dose: Not Given Documented By: DARIO Hydromorphone HCl (Hydromorphone 1 Mg Inj) 1 mg IV Q2H PRN PRN Reason: Pain, Moderate (4-6) Last Admin: 09/29/24 10:40 Dose: 1 mg Documented By: Admin: 09/29/24 03:06 Dose: 1 mg Documented By: Admin: 09/29/24 00:30 Dose: 1 mg Documented By: Admin: 09/28/24 22:16 Dose: 1 mg Documented By: Hydromorphone HCl (Hydromorphone 2 Mg Inj) 2 mg IV Q2H PRN PRN Reason: Pain, Severe (7-10) Last Admin: 09/29/24 08:25 Dose: 2 mg Documented By: Admin: 09/29/24 05:36 Dose: 2 mg Documented By: TIARA Sodium Chloride (Normal Saline 0.9%) 1,000 mls @ 100 mls/hr IV CONT JONATHAN Last Admin: 09/29/24 11:40 Dose: 100 mls/hr Documented By: Infusion: 09/29/24 11:40 Dose: Infused Documented By: Admin: 09/29/24 05:37 Dose: 100 mls/hr Documented By: Infusion: 09/29/24 05:37 Dose: Infused Documented By: Admin: 09/28/24 20:05 Dose: 100 mls/hr Documented By: Levofloxacin (Levaquin) 500 mg in 100 mls @ 100 mls/hr IV Q24H JONATHAN Last Infusion: 09/29/24 11:17 Dose: Infused Documented By: Admin: 09/29/24 10:12 Dose: 100 mls/hr Documented By: DARIO Naloxone HCl (Naloxone 0.4 Mg/Ml Vial) 0.2 mg IV Q2MIN PRN PRN Reason: Opiate Reversal Ondansetron HCl (Ondansetron 4 Mg/2 Ml Inj) 4 mg IV Q4HR PRN PRN Reason: Nausea And Vomiting Sodium Chloride (Sodium Chloride 0.9% Flush) 10 ml IV PRN PRN PRN Reason: Flush Last Admin: 09/29/24 10:41 Dose: 10 ml Documented By: DARIO Discontinued Medications Hydromorphone HCl (Hydromorphone 1 Mg Inj) 1 mg IV NOW ONE Stop: 09/28/24 18:21 Last Admin: 09/28/24 18:26 Dose: 1 mg Documented By: INO Hydromorphone HCl (Hydromorphone 1 Mg Inj) 1 mg IV Q3H PRN PRN Reason: Pain, Moderate (4-6) Last Admin: 09/28/24 20:05 Dose: 1 mg Documented By: Sodium Chloride (Normal Saline 0.9%) 1,000 mls @ 1,000 mls/hr IV BOLUS ONE Stop: 09/28/24 18:32 Last Infusion: 09/28/24 19:03 Dose: Infused Documented By: Admin: 09/28/24 18:10 Dose: 1,000 mls/hr Documented By: INO Ketorolac Tromethamine (Ketorolac 30 Mg/Ml Vial) 15 mg IV NOW ONE Stop: 09/28/24 17:34 Last Admin: 09/28/24 18:09 Dose: 15 mg Documented By: INO Vital Signs Vital signs: Vital Signs - 8 hr 09/28/24 16:46 Temperature 98.3 F Pulse Rate 76 Respiratory Rate 18 Blood Pressure 114/69 Pulse Oximetry 97 Oxygen Delivery Method Room Air MDM - Headache Lab Data 09/29/24 03:50 09/29/24 03:50 Labs: Lab Results 09/28/24 09/28/24 Range/Units 16:50 17:56 WBC 21.2 H (4.5-11.0) X10^3/uL RBC 3.57 L (4.5-5.9) X10^6/uL Hgb 8.9 L (13.5-17.5) g/dL Hct 26.6 L (41-53) % MCV 74.6 L (80-100) fL MCH 24.9 L (26-34) PG MCHC 33.4 (30-36) % RDW 19.2 H (11.6-14.8) % Plt Count 281 (150-400) X10^3/uL Neut % (Auto) Not Reportable Lymph % (Auto) Not Reportable [place] % (Auto) Not Reportable Eos % (Auto) Not Reportable Baso % (Auto) Not Reportable Lymph # (Auto) Not Reportable [place] # (Auto) Not Reportable Baso # (Auto) Not Reportable Total Counted 100 Seg Neutrophils % 70.0 (38-70) % Band Neutrophils % 2.0 L (3-7) % Lymphocytes % (Manual) 22.0 L (25-45) % Monocytes % (Manual) 6.0 (2-11) % Neutrophils # (Manual) 96012 H (4210-7405) /uL Nucleated RBCs 3 H ( - 0) #/Diff RBC Morphology See below Polychromasia 1+ H Anisocytosis 3+ H D Sickle Cells 1+ H Target Cells 2+ H Schistocytes 1+ H Percent Retic 9.8 H (0.9-2.6) % Sodium 138 (137-145) mmol/L Potassium 3.4 (3.4-5.1) mmol/L Chloride 107 (98-107) mmol/L Carbon Dioxide 24 (22-32) mmol/L BUN 7 L (9-20) mg/dL Creatinine 0.68 (0.66-1.25) mg/dL Estimated GFR > 60 (>60) mL/min BUN/Creatinine Ratio 10.3 (6-22) Glucose 85 (70-100) mg/dL Calcium 8.1 L (8.4-10.2) mg/dL Total Bilirubin 3.2 H (0.2-1.3) mg/dL AST 41 (17-59) IU/L ALT 21 (<50) IU/L Alkaline Phosphatase 77 (38-126) U/L Total Protein 7.3 (6.3-8.2) g/dL Albumin 4.1 (3.5-5.0) g/dL Globulin 3.2 (1.7-4.1) g/dL Albumin/Globulin Ratio 1.3 (1.0-2.8) SARS-CoV-2 (PCR) Negative (Negative) Influenza A (RT-PCR) Flu a negative (NEGATIVE) Influenza B (RT-PCR) Flu b negative (NEGATIVE) RSV (PCR) Negative (Negative) Group A Strep (PCR) Negative (Negative) ECG Data Interpretation: Normal sinus rhythm rate 63 noted to have an AV thomas block Mobitz 1 similar to previous EKGs he has persistent T-wave inversions MDM Narrative Medical decision making narrative: Patient 24-year-old male history of sickle cell this is his 3rd visit 2nd today presenting with a headache. His strep is negative. Blood work has been reviewed increased reticular count 9.8 was 8.5 Anemia hemoglobin 8 0.9/26.6 previously 9.8/29.0 increased leukocytosis 21.2 was 15 earlier Electrolytes within normal limits Viral panel negative Strep negative Patient has known sickle cell disease increasing reticular site count worse from even this morning. He also has increasing leukocytosis. He has afebrile not tachycardic not hypotensive. Dr. Mitchell in ED to see and evaluate patient. States he will monitor blood work and happily accept observation,. Hold off on blood cultures and lactate. Will monitor maybe secondary to sickle crisis Discharge Plan Departure Patient Disposition: Admitted as Observation Clinical Impression: Sickle cell anemia, AV block, Mobitz 1 Admit Date/Time: 09/28/24 18:21 Admit Provider: Jt Mitchell V
[2024-09-28 17:47] LABS: Influenza A - CEPHEID Flu A NEGATIVE (NEGATIVE); Influenza B - CEPHEID Flu B NEGATIVE (NEGATIVE); Respiratory Syncytial Virus Negative (Negative)
[2024-09-28 17:50] LABS: COVID-19 CEPHEID 4-PLEX PCR Negative (Negative)
[2024-09-28 18:07] LABS: Hematocrit 26.6 % (41-53); Hemoglobin 8.9 g/dL (13.5-17.5); Mean Corpuscular HGB Conc 33.4 % (30-36); Mean Corpuscular Hemoglobin 24.9 PG (26-34); Mean Corpuscular Volume 74.6 fL (80-100); Platelet Count 281 X10^3/uL (150-400); Red Blood Cell Count 3.57 X10^6/uL (4.5-5.9); Red Cell Distribution Width 19.2 % (11.6-14.8); White Blood Cell Count 21.2 X10^3/uL (4.5-11.0)
[2024-09-28 18:09] LABS: Add Manual Diff / Slide Review YES
[2024-09-28] MEDS: KETOROLAC 30 MG/ML VIAL 15 MG IV (18:09)
[2024-09-28] MEDS: SODIUM CHLORIDE 0.9% 1,000 ML 1000 ML IV (18:10)
[2024-09-28 18:13] LABS: Alanine Aminotransferase 21 IU/L (<50); Albumin 4.1 g/dL (3.5-5.0); Albumin Globulin Ratio 1.3 (1.0-2.8); Alkaline Phosphatase 77 U/L (38-126); Aspartate Aminotransferase 41 IU/L (17-59); BUN Creatinine Ratio 10.3 (6-22); Bilirubin Total 3.2 mg/dL (0.2-1.3); Blood Urea Nitrogen 7 mg/dL (9-20); Calcium 8.1 mg/dL (8.4-10.2); Carbon Dioxide 24 mmol/L (22-32); Chloride 107 mmol/L (98-107); Estimated Glomerular Filt Rate > 60 mL/min (>60); Globulin 3.2 g/dL (1.7-4.1); Glucose 85 mg/dL (70-100); HEMOLYSIS < 15 (0-50); Potassium 3.4 mmol/L (3.4-5.1); Reticulocyte Count, Percent 9.8 % (0.9-2.6); Sodium 138 mmol/L (137-145); Total Protein 7.3 g/dL (6.3-8.2)
[2024-09-28 18:21] LABS: Anisocytosis 3+; Neutrophils Absolute Manual 15264 /uL (3000-5900); Nucleated Red Blood Cells 3 #/Diff; Schistocytes 1+; Sickle Cells 1+; Target Cells 2+; Total Cells Counted 100
[2024-09-28 18:22] LABS: Polychromasia 1+
[2024-09-28] MEDS: HYDROMORPHONE 1 MG INJ IV ×3 (18:26→22:16)
--- NOTE | 2024-09-28 18:29 | PM.HP.IH.1 ---
History of Present Illness History of Present Illness Date Patient Seen: 09/28/24 Time Patient Seen: 18:10 Chief complaint: body aches, WHITE, sore throat Narrative: 24-year-old in with sickle cell anemia presents with sickle cell anemia with history of stroke, with chronic left hemiparesis since age 1, avascular necrosis, prior right hip replacement, splenectomy and cholecystectomy, presents with 3 days of severe back and leg pain. He has been in the emergency department and treated with pain medicines denies any fluids and discharged home only to have persistent pain and return. He denies fevers, chills, shortness of breath, nausea, vomiting, abdominal pain, diarrhea, melena, hematochezia, or lower extremity swelling or edema. [facility] Medical History Anemia Anxiety Avascular necrosis of bone Contracture, left elbow Contracture, left hand CVA (cerebral vascular accident) Depression PTSD (post-traumatic stress disorder) Seizure Sickle cell anemia Surgical History Hip joint replacement status History of shoulder surgery Status post splenectomy Family History Father Cancer Sickle cell trait Lupus Mother Sickle cell trait Brother Sickle cell trait Social History household members: significant other Smoking Status: Never smoker alcohol intake: never Meds Home Medications and Allergies Home Medications Medication Instructions Recorded Confirmed Type hydroxyurea (sickle cell) 200 mg 200 mg PO DAILY #30 caps 07/01/23 09/07/24 Rx capsule penicillin V potassium 250 mg 250 mg PO BID #30 tabs 07/28/24 09/07/24 Rx tablet naloxone 4 mg/actuation nasal 4 mg intranasal Q2M PRN opioid 07/31/24 09/07/24 Rx spray (Narcan) overdose #2 ea ondansetron 4 mg disintegrating 4 mg PO Q8H PRN nausea and 07/31/24 09/07/24 Rx tablet vomiting #20 tabs oxycodone-acetaminophen 5 mg-325 1 tab PO Q4-6H PRN pain #30 tabs 09/08/24 Rx mg tablet (Percocet) Allergies Allergy/AdvReac Type Severity Reaction Status Date / Time No Known Drug Allergies Allergy Verified 09/26/24 07:30 Review of Systems Review of Systems ROS: Yes All systems reviewed with the patient and are negative except as otherwise documented Exam Vital Signs (past 8 hours): - 09/28/24 16:46 Temperature 98.3 F Pulse Rate 76 Respiratory Rate 18 Blood Pressure 114/69 Pulse Oximetry 97 Oxygen Delivery Method Room Air Oxygen Delivery Method Room Air Narrative Exam Narrative: GENERAL: This is a well-nourished, well-developed patient, male, appears uncomfortable. HEAD: Atraumatic. Normocephalic. No temporal or scalp tenderness. EYES: Pupils equal round and reactive. Extraocular motions intact. No scleral icterus. No injection or drainage. ENT: Mucous membranes pink and moist. NECK: Trachea midline. No JVD, bruits or lymphadenopathy. Supple, nontender, no meningeal signs. CARDIOVASCULAR: Regular rate and rhythm without murmurs, gallops, or rubs. RESPIRATORY: Clear to auscultation. GASTROINTESTINAL: Abdomen soft, non-tender, nondistended. EXTREMITIES: No clubbing, cyanosis, or edema. BACK: Nontender without deformity or crepitance. No flank tenderness. NEUROLOGIC: Alert, oriented, speech fluent, left teofilo paresis. DERMATOLOGIC: No rashes or skin lesions. Objective Labs 09/28/24 17:56 09/28/24 17:56 Labs: Laboratory Results - last 24 hr 09/28/24 09/28/24 16:50 17:56 WBC 21.2 H RBC 3.57 L Hgb 8.9 L Hct 26.6 L MCV 74.6 L MCH 24.9 L MCHC 33.4 RDW 19.2 H Plt Count 281 Neut % (Auto) Not Reportable Lymph % (Auto) Not Reportable Brooks % (Auto) Not Reportable Eos % (Auto) Not Reportable Baso % (Auto) Not Reportable Lymph # (Auto) Not Reportable [place] # (Auto) Not Reportable Baso # (Auto) Not Reportable Total Counted 100 Seg Neutrophils % 70.0 Band Neutrophils % 2.0 L Lymphocytes % (Manual) 22.0 L Monocytes % (Manual) 6.0 Neutrophils # (Manual) 88086 H Nucleated RBCs 3 H RBC Morphology See below Polychromasia 1+ H Anisocytosis 3+ H D Sickle Cells 1+ H Target Cells 2+ H Schistocytes 1+ H Percent Retic 9.8 H Sodium 138 Potassium 3.4 Chloride 107 Carbon Dioxide 24 BUN 7 L Creatinine 0.68 Estimated GFR > 60 BUN/Creatinine Ratio 10.3 Glucose 85 Calcium 8.1 L Total Bilirubin 3.2 H AST 41 ALT 21 Alkaline Phosphatase 77 Total Protein 7.3 Albumin 4.1 Globulin 3.2 Albumin/Globulin Ratio 1.3 SARS-CoV-2 (PCR) Negative Influenza A (RT-PCR) Flu a negative Influenza B (RT-PCR) Flu b negative RSV (PCR) Negative Group A Strep (PCR) Negative Assessment & Plan Assessment & Plan narrative: 1. Likely vaso-occlusive crisis with history of sickle cell anemia. Admit the patient to observation. No evidence of infection despite leukocytosis, without focal signs or symptoms. Follow clinically. Consider blood cultures if febrile. 2. Leukocytosis. Monitor with hydration. Blood cultures if febrile. No evidence of sepsis. 3. Dehydration. Continue IV fluids. 4. DVT prophylaxis: Sequential compression devices 5. Code status: Full code Disposition home tomorrow if doing well. Quality MIPS - Admit I confirm the patient?s Advance Care Plan is present, Code status is documented, Surrogate decision maker is in patient?s record [If Yes, STOP here]: Yes MIPS - Meds 'Current medications' to include all prescriptions, [id number] products, herbals, cannabis/cannabidiol products, and vitamin/mineral/dietary (nutritional) supplements. I have utilized all available resources to obtain, update, or review the patient?s current medications. 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
[2024-09-28 18:57] VITALS: BMI 19.8
[2024-09-28 20:00] VITALS: BP 114/81; PULSE 65; RESP 16; TEMP 37.1; O2SAT 95
[2024-09-28] MEDS: SODIUM CHLORIDE 0.9% 1,000 ML 100 ML IV (20:05)
[2024-09-29] VITALS: BP 119/69; PULSE 64; RESP 16; TEMP 37.1; O2SAT 96
[2024-09-29] MEDS: HYDROMORPHONE 1 MG INJ IV ×3 (00:30→10:40)
[2024-09-29 04:12] VITALS: BP 120/78; PULSE 69; RESP 16; TEMP 37.2; O2SAT 95
[2024-09-29 04:12] LABS: Add Manual Diff / Slide Review YES; Hematocrit 24.3 % (41-53); Hemoglobin 8.2 g/dL (13.5-17.5); Mean Corpuscular HGB Conc 33.7 % (30-36); Mean Corpuscular Hemoglobin 25.3 PG (26-34); Platelet Count 246 X10^3/uL (150-400); Red Blood Cell Count 3.23 X10^6/uL (4.5-5.9); Red Cell Distribution Width 19.6 % (11.6-14.8)
[2024-09-29 04:29] LABS: Alanine Aminotransferase 21 IU/L (<50); Albumin 3.6 g/dL (3.5-5.0); Albumin Globulin Ratio 1.2 (1.0-2.8); Alkaline Phosphatase 76 U/L (38-126); Aspartate Aminotransferase 40 IU/L (17-59); BUN Creatinine Ratio 6.3 (6-22); Bilirubin Total 3.4 mg/dL (0.2-1.3); Blood Urea Nitrogen 4 mg/dL (9-20); Calcium 7.9 mg/dL (8.4-10.2); Carbon Dioxide 23 mmol/L (22-32); Chloride 107 mmol/L (98-107); Estimated Glomerular Filt Rate > 60 mL/min (>60); Globulin 3.1 g/dL (1.7-4.1); Glucose 84 mg/dL (70-100); HEMOLYSIS < 15 (0-50); Potassium 3.7 mmol/L (3.4-5.1); Sodium 137 mmol/L (137-145); Total Protein 6.7 g/dL (6.3-8.2)
[2024-09-29 04:57] LABS: Neutrophils Absolute Manual 11880 /uL (3000-5900); Nucleated Red Blood Cells 5 #/Diff; Total Cells Counted 100
[2024-09-29 04:58] LABS: Anisocytosis 2+; Microcytosis 1+; Polychromasia 1+; Sickle Cells 1+; Target Cells 2+
[2024-09-29 04:59] LABS: Schistocytes 1+
[2024-09-29] MEDS: HYDROMORPHONE 2 MG INJ IV ×7 (05:36→22:15)
[2024-09-29] MEDS: SODIUM CHLORIDE 0.9% 1,000 ML 100 ML IV ×2 (05:37→11:40)
[2024-09-29 08:00] VITALS: BP 123/78; PULSE 68; RESP 12; TEMP 37.2; O2SAT 93
--- NOTE | 2024-09-29 09:42 | P.PN_ITS ---
Subjective Subjective Date Patient Seen: 09/29/24 Time Patient Seen: 08:30 Interval history: Narrative: 24-year-old in with sickle cell anemia presents with sickle cell anemia with history of stroke, with chronic left hemiparesis since age 1, avascular necrosis, prior right hip replacement, splenectomy and cholecystectomy, presents with 3 days of severe back and leg pain. He has been in the emergency department and treated with pain medicines denies any fluids and discharged home only to have persistent pain and return. He denies fevers, chills, shortness of breath, nausea, vomiting, abdominal pain, diarrhea, melena, hematochezia, or lower extremity swelling or edema. Subjective: Patient reports chills today, with cough productive of greenish sputum. Exam Vital Signs (past 8 hours): - 09/29/24 04:12 09/29/24 08:00 Temperature 99.0 F 99.0 F Pulse Rate 69 68 Respiratory Rate 16 12 Blood Pressure 120/78 123/78 Pulse Oximetry 95 93 Oxygen Flow Rate 0 0 Oxygen Delivery Method Room Air Oxygen Flow Rate 0 Narrative Exam Narrative: GENERAL: This is a well-nourished, well-developed patient, male, appears uncomfortable, coughing intermittently. EYES: Pupils equal round and reactive. Extraocular motions intact. No scleral icterus. No injection or drainage. ENT: Mucous membranes pink and moist. NECK: Trachea midline. No JVD, bruits or lymphadenopathy. Supple, nontender, no meningeal signs. CARDIOVASCULAR: Regular rate and rhythm without murmurs, gallops, or rubs. RESPIRATORY: Clear to auscultation. GASTROINTESTINAL: Abdomen soft, non-tender, nondistended. EXTREMITIES: No clubbing, cyanosis, or edema. NEUROLOGIC: Alert, oriented, speech fluent, left teofilo paresis with left arm flexion contracture. DERMATOLOGIC: No rashes or skin lesions. Objective Labs 09/29/24 03:50 09/29/24 03:50 Labs: Laboratory Results - last 24 hr 09/28/24 09/28/24 09/29/24 16:50 17:56 03:50 WBC 21.2 H 18.0 H RBC 3.57 L 3.23 L Hgb 8.9 L 8.2 L Hct 26.6 L 24.3 L MCV 74.6 L 75.0 L MCH 24.9 L 25.3 L MCHC 33.4 33.7 RDW 19.2 H 19.6 H Plt Count 281 246 Neut % (Auto) Not Reportable Not Reportable Lymph % (Auto) Not Reportable Not Reportable [place] % (Auto) Not Reportable Not Reportable Eos % (Auto) Not Reportable Not Reportable Baso % (Auto) Not Reportable Not Reportable Lymph # (Auto) Not Reportable Not Reportable [place] # (Auto) Not Reportable Not Reportable Baso # (Auto) Not Reportable Not Reportable Total Counted 100 100 Seg Neutrophils % 70.0 59.0 Band Neutrophils % 2.0 L 7.0 Lymphocytes % (Manual) 22.0 L 24.0 L Monocytes % (Manual) 6.0 7.0 Eosinophils % (Manual) 2.0 Basophils % (Manual) 1.0 Neutrophils # (Manual) 27099 H 65948 H Nucleated RBCs 3 H 5 H RBC Morphology See below See below Polychromasia 1+ H 1+ H Anisocytosis 3+ H D 2+ H Microcytosis 1+ H Sickle Cells 1+ H 1+ H Target Cells 2+ H 2+ H Schistocytes 1+ H 1+ H Percent Retic 9.8 H Sodium 138 137 Potassium 3.4 3.7 Chloride 107 107 Carbon Dioxide 24 23 BUN 7 L 4 L Creatinine 0.68 0.64 L Estimated GFR > 60 > 60 BUN/Creatinine Ratio 10.3 6.3 Glucose 85 84 Calcium 8.1 L 7.9 L Total Bilirubin 3.2 H 3.4 H AST 41 40 ALT 21 21 Alkaline Phosphatase 77 76 Total Protein 7.3 6.7 Albumin 4.1 3.6 Globulin 3.2 3.1 Albumin/Globulin Ratio 1.3 1.2 SARS-CoV-2 (PCR) Negative Influenza A (RT-PCR) Flu a negative Influenza B (RT-PCR) Flu b negative RSV (PCR) Negative Group A Strep (PCR) Negative [facility] Medical History Anemia Anxiety Avascular necrosis of bone Contracture, left elbow Contracture, left hand CVA (cerebral vascular accident) Depression PTSD (post-traumatic stress disorder) Seizure Sickle cell anemia Surgical History Hip joint replacement status History of shoulder surgery Status post splenectomy Family History Father Cancer Sickle cell trait Lupus Mother Sickle cell trait Brother Sickle cell trait Social History household members: significant other Smoking Status: Never smoker alcohol intake: never Assessment & Plan Assessment & Plan narrative: 1. Vaso-occlusive crisis with history of sickle cell anemia. Admit the patient to observation. Initially with no evidence of infection despite leukocytosis, but developing cough and low-grade fever today as likely precipitant. Follow clinically. Symptomatic care. 2. Leukocytosis, cough, low-grade fever. Obtain blood cultures, lactate, and start Levaquin 500 mg IV daily for possible pneumonia. 3. Dehydration. Continue IV fluids. 4. DVT prophylaxis: Sequential compression devices 5. Code status: Full code Disposition home tomorrow if doing well. 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
[2024-09-29] MEDS: levoFLOXacin 500 MG/100 ML PIGGYBACK 100 MG IV (10:12)
[2024-09-29 10:22] LABS: Lactate (Lactic Acid) 0.9 mmol/L (0.7-2.1)
[2024-09-29] MEDS: SODIUM CHLORIDE 0.9% FLUSH 10 ML IV (10:41)
--- NOTE | 2024-09-29 11:20 | CM.DANOTE ---
Initial DCP Assessment Note Pt is a 24 yo male, resident of [facility] sickle cell anemia, stroke with chronic left hemiparesis, arrives with days of severe leg and back pain. PCP: Jen Albarran Payer: Fabien POSADA Reviewed chart, pt discussed in multidisciplinary rounds this morning. ELLIOT unknown; patient with sickle cell anemia related pain that needs to be better managed before return home. Patient lives independently with gf Caddence, works. No barriers identified at this time to patient's safe discharge home w/ close outpatient f/u recommended. Alert PCP's office upon patient's discharge. CM team will plan to follow clinical course closely in case any DC needs or concerns arise. VISHNU Kruse Discharge Planning/Care Management CM Discharge Assessment Start: 09/29/24 11:18 Freq: Status: Active Protocol: Document 09/29/24 11:18 POOJA (Rec: 09/29/24 11:20 [id number]) Discharge Planning Assessment Assigned Fingerprinter VISHNU Jaime DPOA/Assigned Designee Name Riki Maria (Girlfriend) Contact Information [phone] Advance Directives? No Advance Directives on File No History Provided By Patient,Medical Record Comment 7 ED visits in the last month, two visits today regarding Sickle cell crises and pain Prior Living Arrangements Apartment/Condo Household Members significant other Type of transporation used prior to Relies on Others admit Independent with ADL's Yes Is patient alert and oriented? Yes Barriers to Discharge No Discharge Plan Home Transportation Arrangement Sig Other to transport Referrals Initiated None needed
[2024-09-29 12:00] VITALS: BP 132/85; PULSE 63; RESP 24; TEMP 36.9; O2SAT 93
[2024-09-29] MEDS: ONDANSETRON 4 MG/2 ML INJ IV ×2 (12:39→20:15)
[2024-09-29 16:00] VITALS: BP 116/66; PULSE 74; RESP 18; TEMP 37.2; O2SAT 92
[2024-09-29] MEDS: ACETAMINOPHEN 325 MG TABLET 650 MG PO (16:51)
[2024-09-29 20:00] VITALS: BP 120/75; PULSE 67; RESP 12; TEMP 37.1; O2SAT 91
[2024-09-30] VITALS: BP 122/69; PULSE 65; RESP 20; TEMP 37; O2SAT 92
[2024-09-30] MEDS: HYDROMORPHONE 2 MG INJ IV ×4 (02:13→10:57)
[2024-09-30] MEDS: SODIUM CHLORIDE 0.9% 1,000 ML 100 ML IV (02:49)
[2024-09-30 04:00] VITALS: BP 105/74; PULSE 83; RESP 20; TEMP 37.4; O2SAT 92
[2024-09-30 07:04] LABS: Add Manual Diff / Slide Review YES; Hematocrit 26.5 % (41-53); Hemoglobin 8.8 g/dL (13.5-17.5); Mean Corpuscular HGB Conc 33.3 % (30-36); Mean Corpuscular Hemoglobin 25.2 PG (26-34); Mean Corpuscular Volume 75.7 fL (80-100); Platelet Count 269 X10^3/uL (150-400); Red Cell Distribution Width 20.3 % (11.6-14.8); White Blood Cell Count 25.4 X10^3/uL (4.5-11.0)
[2024-09-30 07:12] LABS: BUN Creatinine Ratio 6.1 (6-22); Blood Urea Nitrogen 4 mg/dL (9-20); Calcium 8.3 mg/dL (8.4-10.2); Carbon Dioxide 23 mmol/L (22-32); Chloride 100 mmol/L (98-107); Estimated Glomerular Filt Rate > 60 mL/min (>60); Glucose 74 mg/dL (70-100); HEMOLYSIS < 15 (0-50); Potassium 3.6 mmol/L (3.4-5.1); Sodium 134 mmol/L (137-145)
[2024-09-30 07:17] LABS: Anisocytosis 1+; Neutrophils Absolute Manual 22098 /uL (3000-5900); Nucleated Red Blood Cells 3 #/Diff; Poikilocytosis 1+; Total Cells Counted 100
--- NOTE | 2024-09-30 07:46 | PM.PN.1 ---
Subjective Subjective Interval history: Summary: 24-year-old in with sickle cell anemia presents with sickle cell anemia with history of stroke, with chronic left hemiparesis since age 1, avascular necrosis, prior right hip replacement, splenectomy and cholecystectomy, presents with 3 days of severe back and leg pain. He has been in the emergency department and treated with pain medicines denies any fluids and discharged home only to have persistent pain and return. He denies fevers, chills, shortness of breath, nausea, vomiting, abdominal pain, diarrhea, melena, hematochezia, or lower extremity swelling or edema. S: Exam Vital Signs (past 8 hours): - 09/30/24 00:00 09/30/24 04:00 Temperature 98.6 F 99.3 F Pulse Rate 65 83 Respiratory Rate 20 20 Blood Pressure 122/69 105/74 Pulse Oximetry 92 92 Oxygen Flow Rate 0 0 Oxygen Delivery Method Room Air Oxygen Flow Rate 0 Narrative Exam Narrative: NAD, alert and oriented. Fluent speech. Lungs are clear, normal rate and effort. Heart is regular, no murmur gallop or rub. Abdomen is soft, non distended. Extremities are free of edema. Objective Labs 09/30/24 06:10 09/30/24 06:10 Labs: Laboratory Results - last 24 hr 09/29/24 09/30/24 09:56 06:10 WBC 25.4 H RBC 3.50 L Hgb 8.8 L Hct 26.5 L MCV 75.7 L MCH 25.2 L MCHC 33.3 RDW 20.3 H Plt Count 269 Neut % (Auto) Not Reportable Lymph % (Auto) Not Reportable [place] % (Auto) Not Reportable Eos % (Auto) Not Reportable Baso % (Auto) Not Reportable Lymph # (Auto) Not Reportable [place] # (Auto) Not Reportable Baso # (Auto) Not Reportable Total Counted 100 Seg Neutrophils % 87.0 H Lymphocytes % (Manual) 7.0 L Atypical Lymphs % 1.0 H Monocytes % (Manual) 5.0 Neutrophils # (Manual) 21792 H Nucleated RBCs 3 H RBC Morphology Not Reportable Poikilocytosis 1+ H Anisocytosis 1+ H Sodium 134 L Potassium 3.6 Chloride 100 Carbon Dioxide 23 BUN 4 L Creatinine 0.66 Estimated GFR > 60 BUN/Creatinine Ratio 6.1 Glucose 74 Lactate 0.9 Calcium 8.3 L PFSH Medical History PTSD (post-traumatic stress disorder) Depression Anxiety Seizure Anemia Avascular necrosis of bone Contracture, left elbow Contracture, left hand CVA (cerebral vascular accident) Sickle cell anemia Surgical History History of shoulder surgery 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 Family History Father Cancer Sickle cell trait Lupus Mother Sickle cell trait Brother Sickle cell trait Social History household members: significant other Smoking Status: Never smoker alcohol intake: never Assessment & Plan Assessment & Plan narrative: 1. Vaso-occlusive crisis with history of sickle cell anemia. Admit the patient to observation. Initially with no evidence of infection despite leukocytosis, but developing cough and low-grade fever today as likely precipitant. Follow clinically. Symptomatic care. 2. Leukocytosis, cough, low-grade fever. Obtain blood cultures, lactate, and start Levaquin 500 mg IV daily for possible pneumonia. 3. Dehydration. Continue IV fluids. 4. DVT prophylaxis: Sequential compression devices 5. Code status: Full code PLAN: -IVF. -analgesics. Disposition home tomorrow if doing well. Time-Based Coding :: [TOTAL MINUTES] spent with patient and on the chart (including review of chart, obtaining history, exam, reviewing outside data, placing orders, documenting exam and treatment plan, and counseling patient) on [DATE]. Quality VTE Deep Vein Thrombosis/Pulmonary Embolism Present on Admission: No
[2024-09-30] MEDS: levoFLOXacin 500 MG/100 ML PIGGYBACK 100 MG IV (08:25)
[2024-09-30] MEDS: SODIUM CHLORIDE 0.9% FLUSH 10 ML IV (08:26)
[2024-09-30 10:00] VITALS: BP 127/76; PULSE 82; RESP 18; TEMP 36.9; O2SAT 95
[2024-09-30] MEDS: ACETAMINOPHEN 325 MG TABLET 650 MG PO (10:01)
--- NOTE | 2024-09-30 10:45 | P.DS_ITS ---
History of Present Illness History of Present Illness Chief complaint: body aches, WHITE, sore throat Narrative: From H&P: 24-year-old in with sickle cell anemia presents with sickle cell anemia with history of stroke, with chronic left hemiparesis since age 1, avascular necrosis, prior right hip replacement, splenectomy and cholecystectomy, presents with 3 days of severe back and leg pain. He has been in the emergency department and treated with pain medicines denies any fluids and discharged home only to have persistent pain and return. He denies fevers, chills, shortness of breath, nausea, vomiting, abdominal pain, diarrhea, melena, hematochezia, or lower extremity swelling or edema. Discharge Providers Provider Date of admission: 09/28/24 18:21 Discharge Date: 09/30/24 Primary care physician: Jen Albarran [facility] Discharge provider: Arslan Belcher MD Summary Hospital Course Discharge Diagnosis: 1. Vaso-occlusive crisis with history of sickle cell anemia. Admit the patient to observation. Improved. 2. Leukocytosis, cough, low-grade fever. Improved. 3. Dehydration. Resolved. 4. DVT prophylaxis: Sequential compression devices 5. Code status: Full code Hospital Course: He was admitted for his usual pain crisis. He had a very low-grade fever but no findings on x-ray. He was given antibiotics. He improved with a guard to pain which is his usual symptom. His white count was still elevated in the day of discharge he felt at baseline. He was felt to be reasonably stable for discharge on oral antibiotic, levofloxacin will be prescribed. In addition he will stay in touch with me the next 2 days and monitor for any temperatures or shortness a breath. Status at Discharge Cognitive/behavioral status at discharge: oriented Functional status at discharge: independent ambulation Overall status at discharge: patient is back to baseline Time Spent with Patient Time spent: Greater than 30 minutes Exam Vital Signs (past 8 hours): - 09/30/24 04:00 09/30/24 10:00 Temperature 99.3 F 98.5 F Pulse Rate 83 82 Respiratory Rate 20 18 Blood Pressure 105/74 127/76 Pulse Oximetry 92 95 Oxygen Flow Rate 0 Oxygen Delivery Method Room Air Oxygen Flow Rate 0 Narrative Exam Narrative: NAD, alert and oriented. Fluent speech. Lungs are clear, normal rate and effort. Heart is regular, no murmur gallop or rub. Abdomen is soft, non distended. Extremities are free of edema. Chronic left arm contractures Objective ECG Impression: Sinus rhythm with 2nd degree AV block (Mobitz I) T wave abnormality, consider anterior ischemia Imaging Chest x-ray: Radiologist's impression: Mild interstitial prominence, without focal consolidation. Abnormal bones, which is consistent with prior sickle cell infarctions. Labs 09/30/24 06:10 09/30/24 06:10 Labs: Laboratory Results - last 24 hr 09/30/24 06:10 WBC 25.4 H RBC 3.50 L Hgb 8.8 L Hct 26.5 L MCV 75.7 L MCH 25.2 L MCHC 33.3 RDW 20.3 H Plt Count 269 Neut % (Auto) Not Reportable Lymph % (Auto) Not Reportable [place] % (Auto) Not Reportable Eos % (Auto) Not Reportable Baso % (Auto) Not Reportable Lymph # (Auto) Not Reportable [place] # (Auto) Not Reportable Baso # (Auto) Not Reportable Total Counted 100 Seg Neutrophils % 87.0 H Lymphocytes % (Manual) 7.0 L Atypical Lymphs % 1.0 H Monocytes % (Manual) 5.0 Neutrophils # (Manual) 43260 H Nucleated RBCs 3 H RBC Morphology Not Reportable Poikilocytosis 1+ H Anisocytosis 1+ H Sodium 134 L Potassium 3.6 Chloride 100 Carbon Dioxide 23 BUN 4 L Creatinine 0.66 Estimated GFR > 60 BUN/Creatinine Ratio 6.1 Glucose 74 Calcium 8.3 L PFSH Medical History PTSD (post-traumatic stress disorder) Depression Anxiety Seizure Anemia Avascular necrosis of bone Contracture, left elbow Contracture, left hand CVA (cerebral vascular accident) Sickle cell anemia Surgical History History of shoulder surgery 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 Family History Father Cancer Sickle cell trait Lupus Mother Sickle cell trait Brother Sickle cell trait Social History household members: significant other Smoking Status: Never smoker alcohol intake: never Discharge Assessment & Plan Assessment and Plan Assessment: 1. Vaso-occlusive crisis with history of sickle cell anemia. Admit the patient to observation. Improved. 2. Leukocytosis, cough, low-grade fever. Improved. 3. Dehydration. Resolved. Plan of Treatment: Stable for discharge home on pain medications and close follow up. Discharge Plan Discharge Plan Patient Disposition: Home Provider Discharge Comment: Stable for discharge. Discharge orders & Medications Prescriptions: New hydromorphone [Dilaudid] 2 mg tablet 2 mg PO Q6H PRN (Reason: pain) Qty: 14 0RF levofloxacin 500 mg tablet 500 mg PO DAILY 5 Days Qty: 5 0RF Continued hydroxyurea (sickle cell) 200 mg capsule 200 mg PO DAILY Qty: 30 0RF oxycodone-acetaminophen [Percocet] 5-325 mg tablet 1 tab PO Q4-6H PRN (Reason: pain) Qty: 30 0RF penicillin V potassium 250 mg tablet 250 mg PO BID Follow up/Referrals: Jen Albarran FNP-BC [Primary Care Provider] - Diet/Activity/Treatments Diet: Diet as Tolerated Activity: As tolerated. Skin/Wound/Dressing Care Report to your healthcare provider any signs of infection, such as:: chills, fever and increased pain Visit Report/Discharge Packet Instructions: DI for Prescription Opioid Use, Hydromorphone Stand Alone Forms: Patient Portal/API Discharge Data Primary Care Provider: Jen Albarran Attending Provider: Jt Mitchell V Admit Date/Time: 09/28/24 18:21 Quality VTE Deep Vein Thrombosis/Pulmonary Embolism Present on Admission: No
--- NOTE | 2024-09-30 15:56 | CM.DPC ---
DCP Discharge Home Per MD, pt was medically stable to discharge home today and no identified barriers to discharge. Per RN, no concerns noted. Per TCM group, have been calling pt for follow up appointment with Provider Jen but pt has not been answering. Attempted to get f/u appointment with PCP prior to d/c but unfortunately pt left prior via Sig Other POV. VISHNU Ballard
== END 2024-09-30 11:40 | disposition home or self-care (01) ==
LOC: ED 16:55 → AC 18:21
PROVIDERS: Admitting Provider Internal Medicine; Emergency Provider Emergency Medicine; PCP Nurse Practitioner Family; Referring Provider Emergency Medicine; Visit Provider Internal Medicine
DX: D57.03 Hb-SS disease with cerebral vascular involvement (principal); I69.354 Hemiplegia and hemiparesis following cerebral infarction affecting left non-dominant side; I44.0 Atrioventricular block, first degree; E86.0 Dehydration; D72.829 Elevated white blood cell count, unspecified; M79.669 Pain in unspecified lower leg; M54.9 Dorsalgia, unspecified; Z90.81 Acquired absence of spleen; Z90.49 Acquired absence of other specified parts of digestive tract; Z96.641 Presence of right artificial hip joint; Z11.52 Encounter for screening for COVID-19
CPT/HCPCS: 0241U; 36415; 71045; 80048; 80053; 83605; 85007; 85025; 85045; 87040; 87070; 87205; 87651; 93005; 93010; 96361; 96365; 96366; 96375; 96376; 99283; 99284; G0378; J0134; J1171; J1885; J1956; J2405

== ENCOUNTER 2024-10-01 21:33 | Emergency (ER) | payer OTHER, SELFPAY ==
[2024-10-01 21:39] VITALS: BP 106/66; PULSE 86; RESP 18; TEMP 36.9; O2SAT 96; BMI 18.6
== END 2024-10-01 21:50 | disposition left against medical advice (07) ==
PROVIDERS: Emergency Provider Emergency Medicine; PCP Nurse Practitioner Family
CPT/HCPCS: 99281

== ENCOUNTER 2024-10-02 05:02 | Emergency (ER) | payer OTHER, SELFPAY ==
[2024-10-02 05:24] VITALS: BP 115/67; PULSE 80; RESP 16; TEMP 36.9; O2SAT 97; BMI 18.6
[2024-10-02 06:38] LABS: Influenza A - CEPHEID Flu A NEGATIVE (NEGATIVE); Influenza B - CEPHEID Flu B NEGATIVE (NEGATIVE); Respiratory Syncytial Virus Negative (Negative)
[2024-10-02 06:39] LABS: COVID-19 CEPHEID 4-PLEX PCR Negative (Negative)
--- NOTE | 2024-10-02 07:19 | ED.NAVMDI ---
HPI - Nausea/Vomiting/Diarrhea General Chief complaint: Upper Respiratory Symptoms Stated complaint: lightheadness, throwing up, back pain Time Seen by Provider: 10/02/24 07:00 Source: patient Mode of arrival: Ambulatory History of Present Illness HPI Narrative: Patient here for nausea and vomiting feeling lightheaded. Ongoing for past 1.5 weeks. Patient states his whole household has had same symptoms. He was the 1st 1 to start with the symptoms. Has ongoing low back pain with a sickle cell anemia which is not new. Vital signs are reassuring here. Patient states feeling dehydrated. 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 Does have a primary care. Has establish started working. Related Data Home Medications Medication Instructions Recorded Confirmed penicillin V potassium 250 mg 250 mg PO BID sickle cell 09/29/24 09/29/24 tablet Previous Rx's Medication Instructions Recorded hydroxyurea (sickle cell) 200 mg 200 mg PO DAILY #30 caps 07/01/23 capsule oxycodone-acetaminophen 5 mg-325 1 tab PO Q4-6H PRN pain #30 tabs 09/08/24 mg tablet (Percocet) hydromorphone 2 mg tablet 2 mg PO Q6H PRN pain #14 tabs 09/30/24 (Dilaudid) levofloxacin 500 mg tablet 500 mg PO DAILY 5 days #5 tabs 09/30/24 ondansetron 4 mg disintegrating 4 mg PO Q8H PRN nausea and 10/02/24 tablet vomiting #20 tabs Allergies Allergy/AdvReac Type Severity Reaction Status Date / Time No Known Drug Allergies Allergy Verified 09/26/24 07:30 Review of Systems Review of Systems Narrative: GENERAL: Negative chills, fatigue, malaise, fever, sweats. HEENT: Negative sinus pain, ear pain, sore throat RESPIRATORY: Negative dyspnea, cough CARDIOVASCULAR: Negative chest pain, palpitations GASTROINTESTINAL: Positive nausea, vomiting, negative abdominal pain : Negative dysuria, frequency, hematuria MUSCULOSKELETAL: Positive back/muscle or bony pain SKIN: Negative rash, skin lesions NEUROLOGIC: Negative weakness, numbness ROS Unobtainable: All systems reviewed & are unremarkable except as noted in HPI and below Patient History Medical History PTSD (post-traumatic stress disorder) Depression Anxiety Seizure Anemia Avascular necrosis of bone Contracture, left elbow Contracture, left hand CVA (cerebral vascular accident) Sickle cell anemia Surgical History History of shoulder surgery 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 Family History Father Cancer Sickle cell trait Lupus Mother Sickle cell trait Brother Sickle cell trait Social History household members: significant other Smoking Status: Never smoker alcohol intake: never Smoking Status: Never smoker alcohol intake frequency: holidays/special occasions only Exam Narrative Exam Narrative: GENERAL: in no distress, not toxic not dyspneic HEAD: Normocephalic. EYES: Pupils equal round ENT: Mucous membranes moist. NECK: Trachea midline. CARDIOVASCULAR: Regular rate and rhythm RESPIRATORY: Clear to auscultation. Breath sounds equal bilaterally. No wheezes, rales, or rhonchi. GASTROINTESTINAL: Abdomen soft, non-tender flat, nontender, no peritoneal signs, bowel sounds are present no guarding or rebound. Bowel sounds are present. EXTREMITIES: No gross deformities. BACK: No flank tenderness. No CVA tenderness. Patient rotating rolling over in bed without any discomfort NEURO: AOx4. Clear speech SKIN: Warm and dry PSYCH: Not anxious, is cooperative Initial Vital Signs Initial Vital Signs: Vital Signs Temperature 98.4 F 10/02/24 05:24 Pulse Rate 80 10/02/24 05:24 Respiratory Rate 16 10/02/24 05:24 Blood Pressure 115/67 10/02/24 05:24 Pulse Oximetry 97 10/02/24 05:24 Oxygen Delivery Method Room Air 10/02/24 05:24 Course Orders Ordered: ED Orders 10/02/24 05:30 Covid-19 + FLU A/B + RSV - PCR Stat 10/02/24 07:44 CBC Auto Diff [Complete Blood Count AUTO DIFF] Stat CMP [Comprehensive Metabolic Panel] Stat Reticulocyte Count, Percent Stat Discontinued Medications Hydromorphone HCl (Hydromorphone 1 Mg Inj) 1 mg IV NOW ONE Stop: 10/02/24 07:19 Last Admin: 10/02/24 07:53 Dose: 1 mg Documented By: JIMMY Hydromorphone HCl (Hydromorphone 1 Mg Inj) 1 mg IV NOW ONE Stop: 10/02/24 08:37 Last Admin: 10/02/24 08:48 Dose: 1 mg Sodium Chloride (Normal Saline 0.9%) 1,000 mls @ 1,000 mls/hr IV BOLUS ONE Stop: 10/02/24 08:17 Last Admin: 10/02/24 07:52 Dose: 1,000 mls/hr Documented By: JIMMY Ondansetron HCl (Ondansetron 4 Mg/2 Ml Inj) 4 mg IV NOW ONE Stop: 10/02/24 07:19 Last Admin: 10/02/24 07:52 Dose: 4 mg Documented By: JIMMY Vital Signs Vital signs: Vital Signs - 8 hr 10/02/24 05:24 10/02/24 08:48 Temperature 98.4 F 98.2 F Pulse Rate 80 81 Respiratory Rate 16 18 Blood Pressure 115/67 123/65 Pulse Oximetry 97 99 Oxygen Delivery Method Room Air Room Air MDM - Nausea/Vomiting/Diarrhea Lab Data 10/02/24 07:44 10/02/24 07:44 Labs: Lab Results 10/02/24 10/02/24 Range/Units 05:30 07:44 WBC 17.7 H (4.5-11.0) X10^3/uL RBC 3.71 L (4.5-5.9) X10^6/uL Hgb 9.3 L (13.5-17.5) g/dL Hct 28.4 L (41-53) % MCV 76.4 L (80-100) fL MCH 25.1 L (26-34) PG MCHC 32.8 (30-36) % RDW 21.0 H (11.6-14.8) % Plt Count 294 (150-400) X10^3/uL Neut % (Auto) Not Reportable Lymph % (Auto) Not Reportable [place] % (Auto) Not Reportable Eos % (Auto) Not Reportable Baso % (Auto) Not Reportable Lymph # (Auto) Not Reportable [place] # (Auto) Not Reportable Baso # (Auto) Not Reportable Percent Retic 10.8 H (0.9-2.6) % Sodium 141 (137-145) mmol/L Potassium 4.0 (3.4-5.1) mmol/L Chloride 108 H (98-107) mmol/L Carbon Dioxide 21 L (22-32) mmol/L BUN 8 L (9-20) mg/dL Creatinine 0.61 L (0.66-1.25) mg/dL Estimated GFR > 60 (>60) mL/min BUN/Creatinine Ratio 13.1 (6-22) Glucose 93 (70-100) mg/dL Calcium 9.0 (8.4-10.2) mg/dL Total Bilirubin 3.1 H (0.2-1.3) mg/dL AST 46 (17-59) IU/L ALT 23 (<50) IU/L Alkaline Phosphatase 99 (38-126) U/L Total Protein 9.5 H (6.3-8.2) g/dL Albumin 4.8 (3.5-5.0) g/dL Globulin 4.7 H (1.7-4.1) g/dL Albumin/Globulin Ratio 1.0 (1.0-2.8) SARS-CoV-2 (PCR) Negative (Negative) Influenza A (RT-PCR) Flu a negative (NEGATIVE) Influenza B (RT-PCR) Flu b negative (NEGATIVE) RSV (PCR) Negative (Negative) [facility] Narrative Medical decision making narrative: Patient here for nausea and vomiting feeling lightheaded. Ongoing for past 1.5 weeks. Patient states his whole household has had same symptoms. He was the 1st 1 to start with the symptoms. Has ongoing low back pain with a sickle cell anemia which is not new. Vital signs are reassuring here. Patient states feeling dehydrated. 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 Does have a primary care. Has establish started working. After history and exam, exam is reassuring. CBC CMP reticulocyte count normal saline Dilaudid Zofran ordered. No imaging indicated at this time. [facility] Medical records reviewed: Recent ER visit here 4 days ago Differential considered: Includes but not limited to sickle cell crisis, influenza a respiratory infection, viral gastroenteritis RSV rhino virus parainfluenza virus metapneumovirus norovirus Lab Test results independently reviewed as above. Pertinent findings: WBC 17.7 hemoglobin 9.3 hematocrit 28.4 platelets 294 reticulocyte count 10.8 sodium 141 potassium 4.0 BUN 8 creatinine 0.61 AST 46 ALT 23, respiratory panel negative Treatments: Dilaudid Zofran normal saline Re-evaluations: 8:36 a.m.. Patient feeling much better. Would like 1 more dose of pain medication for departure. Labs are reassuring. Likely viral gastritis as family/household has same symptoms. Work note provided. Return precautions reviewed. He desires discharge home. Discussion: Appropriate for discharge home. Exam is reassuring. Likely viral gastritis. Family has same symptoms. Work note provided. Not toxic at discharge. 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 He desires discharge home. Patient at baseline with WBC CBC electrolytes reticulocyte count Diagnosis: Viral gastritis Discharge Plan Departure Patient Disposition: Home Clinical Impression: Viral gastritis Instructions: DI for Viral Syndrome, Nausea and Vomiting-Adult Activity Restrictions/Additional Instructions: No driving operating machinery today. Your laboratory studies are reassuring. Likely virus causing your symptoms as family/household has the same symptoms. Keep well hydrated. Return if worse if any questions or concerns. Work note has been provided for you. Nausea medication prescription has been sent to your [facility] pharmacy to peanut picker today. Return if worse if any questions or concerns Prescriptions: New ondansetron 4 mg tablet,disintegrating 4 mg PO Q8H PRN (Reason: nausea and vomiting) Qty: 20 0RF No Action hydroxyurea (sickle cell) 200 mg capsule 200 mg PO DAILY Qty: 30 0RF oxycodone-acetaminophen [Percocet] 5-325 mg tablet 1 tab PO Q4-6H PRN (Reason: pain) Qty: 30 0RF penicillin V potassium 250 mg tablet 250 mg PO BID hydromorphone [Dilaudid] 2 mg tablet 2 mg PO Q6H PRN (Reason: pain) Qty: 14 0RF levofloxacin 500 mg tablet 500 mg PO DAILY 5 Days Qty: 5 0RF Referrals: Jen Albarran FNP-BC [Primary Care Provider] - Stand Alone Forms: Patient Portal/API/Survey, Work Release Note
[2024-10-02] MEDS: SODIUM CHLORIDE 0.9% 1,000 ML 1000 ML IV (07:52)
[2024-10-02] MEDS: ONDANSETRON 4 MG/2 ML INJ IV (07:52)
[2024-10-02] MEDS: HYDROMORPHONE 1 MG INJ IV ×2 (07:53→08:48)
[2024-10-02 08:02] LABS: Hematocrit 28.4 % (41-53); Hemoglobin 9.3 g/dL (13.5-17.5); Mean Corpuscular HGB Conc 32.8 % (30-36); Mean Corpuscular Hemoglobin 25.1 PG (26-34); Mean Corpuscular Volume 76.4 fL (80-100); Platelet Count 294 X10^3/uL (150-400); Red Blood Cell Count 3.71 X10^6/uL (4.5-5.9); White Blood Cell Count 17.7 X10^3/uL (4.5-11.0)
[2024-10-02 08:06] LABS: Add Manual Diff / Slide Review YES
[2024-10-02 08:07] LABS: Alanine Aminotransferase 23 IU/L (<50); Albumin 4.8 g/dL (3.5-5.0); Alkaline Phosphatase 99 U/L (38-126); Aspartate Aminotransferase 46 IU/L (17-59); BUN Creatinine Ratio 13.1 (6-22); Bilirubin Total 3.1 mg/dL (0.2-1.3); Blood Urea Nitrogen 8 mg/dL (9-20); Carbon Dioxide 21 mmol/L (22-32); Chloride 108 mmol/L (98-107); Estimated Glomerular Filt Rate > 60 mL/min (>60); Globulin 4.7 g/dL (1.7-4.1); Glucose 93 mg/dL (70-100); HEMOLYSIS < 15 (0-50); Sodium 141 mmol/L (137-145); Total Protein 9.5 g/dL (6.3-8.2)
[2024-10-02 08:31] LABS: Reticulocyte Count, Percent 10.8 % (0.9-2.6)
[2024-10-02 08:48] VITALS: BP 123/65; PULSE 81; RESP 18; TEMP 36.8; O2SAT 99
[2024-10-02 09:34] LABS: Neutrophils Absolute Manual 12036 /uL (3000-5900); Nucleated Red Blood Cells 2 #/Diff; Total Cells Counted 100
[2024-10-02 09:35] LABS: Anisocytosis 2+; Microcytosis 1+; Target Cells 1+
[2024-10-02 09:36] LABS: Poikilocytosis 1+; Sickle Cells 2+
== END 2024-10-02 08:54 | disposition home or self-care (01) ==
PROVIDERS: Emergency Medicine; Emergency Provider Emergency Medicine; PCP Nurse Practitioner Family
DX: K29.70 Gastritis, unspecified, without bleeding (principal); D57.00 Hb-SS disease with crisis, unspecified
CPT/HCPCS: 87635; 87400 ×2; 87420; 0241U; 36415; 80053; 85007; 85025; 85045; 96361; 96374; 96375; 96376; 99284; J1171; J2405

== ENCOUNTER 2024-10-19 | Emergency (ER) | payer OTHER, SELFPAY ==
[2024-10-19 00:23] VITALS: BP 106/63; PULSE 85; RESP 16; TEMP 37.3; O2SAT 97; BMI 19.3
--- NOTE | 2024-10-19 01:09 | DI.RAD.S_ITS ---
PROCEDURE: XR CHEST 1V INDICATIONS: back, arm, leg pain; hx sickle cell; recent illness TECHNIQUE: One view of the chest was acquired. COMPARISON: [facility], CR, XR CHEST 1V, 09/28/2024, 4:01. FINDINGS: Surgical changes and devices: None. Lungs and pleura: Lungs are clear. No pleural effusions or pneumothorax. Mediastinum: Mediastinal contours appear normal. Heart size is normal. Bones and chest wall: No suspicious bony lesions. Overlying soft tissues appear unremarkable. IMPRESSION: No acute cardiopulmonary pathology. Dictated by: Jeremiah Haines M.D. on 10/19/2024 at 1:19 Approved by: Jeremiah Haines M.D. on 10/19/2024 at 1:20
[2024-10-19 01:14] VITALS: TEMP 37.3
[2024-10-19] MEDS: HYDROMORPHONE 0.5 MG INJ IV (01:14)
[2024-10-19] MEDS: ONDANSETRON 4 MG/2 ML INJ IV (01:14)
[2024-10-19] MEDS: SODIUM CHLORIDE 0.9% 1,000 ML 1000 ML IV (01:15)
[2024-10-19 01:24] LABS: Alanine Aminotransferase 34 IU/L (<50); Albumin 4.3 g/dL (3.5-5.0); Albumin Globulin Ratio 1.1 (1.0-2.8); Alkaline Phosphatase 78 U/L (38-126); Aspartate Aminotransferase 54 IU/L (17-59); BUN Creatinine Ratio 13.6 (6-22); Bilirubin Total 2.4 mg/dL (0.2-1.3); Blood Urea Nitrogen 9 mg/dL (9-20); Calcium 8.2 mg/dL (8.4-10.2); Carbon Dioxide 22 mmol/L (22-32); Chloride 105 mmol/L (98-107); Estimated Glomerular Filt Rate > 60 mL/min (>60); Globulin 3.8 g/dL (1.7-4.1); Glucose 88 mg/dL (70-100); HEMOLYSIS 22 (0-50); Potassium 3.6 mmol/L (3.4-5.1); Sodium 138 mmol/L (137-145); Total Protein 8.1 g/dL (6.3-8.2)
[2024-10-19 01:35] VITALS: BP 98/58; PULSE 59; RESP 18; O2SAT 95
--- NOTE | 2024-10-19 01:56 | ED_ITS ---
HPI - Back Pain/Injury General Chief Complaint: Back Pain/Injury Stated Complaint: Bilateral arm and leg pain, back pain Time Seen by Provider: 10/19/24 01:06 Source: patient History of Present Illness HPI Narrative: 24-year-old male with history of sickle disease, prior splenectomy, childhood stroke with left hemiparesis, frequent ED visits and sometimes inpatient admissions for recurrent sickle crises, takes hydrocodone/APAP for chornic pain, has typical pain in his low back and extremities when he has sickle crisis. No chest pain or shortness of breath this time. History of old stroke with left hemiparesis due to childhood stroke. He does not feel feverish. Related Data Previous Rx's Medication Instructions Recorded oxycodone-acetaminophen 5 mg-325 1 tab PO Q4-6H PRN pain #30 tabs 09/08/ mg tablet (Percocet) hydromorphone 2 mg tablet 2 mg PO Q6H PRN pain #14 tabs 09/30/24 (Dilaudid) duloxetine 60 mg capsule,delayed 60 mg PO DAILY #60 caps 10/02/24 release hydroxyurea (sickle cell) 200 mg 200 mg PO DAILY #90 caps 10/02/24 capsule ondansetron 4 mg disintegrating 4 mg PO Q8H PRN nausea and 10/02/24 tablet vomiting #20 tabs penicillin V potassium 250 mg 250 mg PO BID sickle cell #90 tabs 10/02/24 tablet hydrocodone 5 mg-acetaminophen 325 1 tab PO Q6H PRN pain #14 tabs 10/19/25 mg tablet Allergies Allergy/AdvReac Type Severity Reaction Status Date / Time No Known Drug Allergies Allergy Verified 10/02/24 09:28 Patient History Medical History PTSD (post-traumatic stress disorder) Depression Anxiety Seizure Anemia Avascular necrosis of bone Contracture, left elbow Contracture, left hand CVA (cerebral vascular accident) Sickle cell anemia Surgical History History of shoulder surgery 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 Family History Father Cancer Sickle cell trait Lupus Mother Sickle cell trait Brother Sickle cell trait Social History household members: significant other Smoking Status: Never smoker alcohol intake: never Smoking Status: Never smoker alcohol intake frequency: holidays/special occasions only Exam Narrative Exam Narrative: GENERAL: Well-developed patient, in mild distress. HEAD: Atraumatic. Normocephalic. EYES: Pupils equal round and reactive. Extraocular motions intact. No scleral icterus. No injection or drainage. ENT: Nose without bleeding, purulent drainage. Throat without erythema, tonsillar hypertrophy or exudate. Airway patent. NECK: Trachea midline. Non tender CARDIOVASCULAR: Regular rate and rhythm without murmurs, gallops, or rubs. RESPIRATORY: Clear to auscultation. Breath sounds equal bilaterally. No wheezes, rales, or rhonchi. GASTROINTESTINAL: Abdomen soft, non-tender, nondistended. EXTREMITIES: No edema or joint tenderness. Left upper flexion contracture from old stroke, some muscle wasting left lower extremity from old stroke. BACK: Nontender without deformity or crepitance. No flank tenderness. NEURO: AOx3. Left-sided hemiparesis changes from old stroke noted above, no change from baseline. SKIN: No rash or erythema of visible areas Initial Vital Signs Initial Vital Signs: Vital Signs Temperature 99.1 F 10/19/24 00:23 Pulse Rate 85 10/19/24 00:23 Respiratory Rate 16 10/19/24 00:23 Blood Pressure 106/63 10/19/24 00:23 Pulse Oximetry 97 10/19/24 00:23 Oxygen Delivery Method Room Air 10/19/24 00:23 Course Orders Ordered: ED Orders 10/19/24 00:50 Complete Blood Count AUTO DIFF Stat Comprehensive Metabolic Panel Stat RETIC [Reticulocyte Count, Percent] Stat 10/19/24 01:09 Chest [XR chest 1V] Stat Discontinued Medications Hydrocodone Bitart/Acetaminophen (Hydrocodone/Acet 5/325 Tablet) 1 tab PO NOW ONE Stop: 10/19/24 03:09 Last Admin: 10/19/24 03:18 Dose: 1 tab Documented By: MERISSA Hydromorphone HCl (Hydromorphone 0.5 Mg Inj) 0.5 mg IV NOW ONE Stop: 10/19/24 01:08 Last Admin: 10/19/24 01:14 Dose: 0.5 mg Documented By: MOLLY Hydromorphone HCl (Hydromorphone 1 Mg Inj) 1 mg IV NOW ONE Stop: 10/19/24 02:28 Last Admin: 10/19/24 02:32 Dose: 1 mg Documented By: MERISSA Sodium Chloride (Normal Saline 0.9%) 1,000 mls @ 1,000 mls/hr IV BOLUS ONE Stop: 10/19/24 02:06 Last Infusion: 10/19/24 02:28 Dose: Infused Documented By: Admin: 10/19/24 01:15 Dose: 1,000 mls/hr Documented By: MOLLY Ondansetron HCl (Ondansetron 4 Mg/2 Ml Inj) 4 mg IV NOW PRN PRN Reason: Nausea And Vomiting Last Admin: 10/19/24 01:14 Dose: 4 mg Documented By: MOLLY Ondansetron HCl (Ondansetron 4 Mg Odt) 4 mg PO NOW PRN PRN Reason: Nausea And Vomiting Vital Signs Vital signs: Vital Signs - 8 hr 10/19/24 00:23 10/19/24 01:14 10/19/24 01:35 Temperature 99.1 F 99.1 F Pulse Rate 85 59 L Respiratory Rate 16 18 Blood Pressure 106/63 98/58 L Pulse Oximetry 97 95 Oxygen Delivery Method Room Air Room Air MDM - Back Pain/Injury Lab Data Attestation: I reviewed the patient's lab results. Lab results narrative: White blood cell count 60976, hemoglobin 8.8, platelets [id number]. Basic metabolic panel unremarkable, glucose 88 noted. T bili 2.4 similar range prior. Alkaline phosphatase, AST, ALT normal. Reticulocyte count elevated but lower than September 2024 measurements. 10/19/24 00:50 10/19/24 00:50 Labs: Lab Results 10/19/24 Range/Units 00:50 WBC 11.5 H (4.5-11.0) X10^3/uL RBC 3.40 L (4.5-5.9) X10^6/uL Hgb 8.8 L (13.5-17.5) g/dL Hct 25.8 L (41-53) % MCV 75.8 L (80-100) fL MCH 25.8 L (26-34) PG MCHC 34.1 (30-36) % RDW 18.5 H (11.6-14.8) % Plt Count 422 H (150-400) X10^3/uL Neut % (Auto) 55.6 (50-75) % Lymph % (Auto) 28.4 (25-40) % Mercer % (Auto) 10.1 (3-14) % Eos % (Auto) 3.7 (2-4) % Baso % (Auto) 2.2 H (0-2) % Neut # (Auto) 6400 (4596-9461) /uL Lymph # (Auto) 3300 (5673-9490) /uL Mercer # (Auto) 1200 H (0-900) /uL Eos # (Auto) 400 (0-450) /uL Baso # (Auto) 300 H (0-100) /uL Percent Retic 9.3 H (0.9-2.6) % Sodium 138 (137-145) mmol/L Potassium 3.6 (3.4-5.1) mmol/L Chloride 105 (98-107) mmol/L Carbon Dioxide 22 (22-32) mmol/L BUN 9 (9-20) mg/dL Creatinine 0.66 (0.66-1.25) mg/dL Estimated GFR > 60 (>60) mL/min BUN/Creatinine Ratio 13.6 (6-22) Glucose 88 (70-100) mg/dL Calcium 8.2 L (8.4-10.2) mg/dL Total Bilirubin 2.4 H (0.2-1.3) mg/dL AST 54 (17-59) IU/L ALT 34 (<50) IU/L Alkaline Phosphatase 78 (38-126) U/L Total Protein 8.1 (6.3-8.2) g/dL Albumin 4.3 (3.5-5.0) g/dL Globulin 3.8 (1.7-4.1) g/dL Albumin/Globulin Ratio 1.1 (1.0-2.8) Imaging Data Chest x-ray: Radiologist's Impression: [address] [address] XRay Report Signed Patient: Lucretia Keller MR#: [id number] : 2000 Acct:[id number] Age/Sex: 24 / M Date of Service: 10/19/24 Loc: ED Accession Number: [id number] Procedure: XR chest 1V Ordering Provider: Jeovanny Yost MD PROCEDURE: XR CHEST 1V INDICATIONS: back, arm, leg pain; hx sickle cell; recent illness TECHNIQUE: One view of the chest was acquired. COMPARISON: [facility], CR, XR CHEST 1V, 09/28/2024, 4:01. FINDINGS: Surgical changes and devices: None. Lungs and pleura: Lungs are clear. No pleural effusions or pneumothorax. Mediastinum: Mediastinal contours appear normal. Heart size is normal. Bones and chest wall: No suspicious bony lesions. Overlying soft tissues appear unremarkable. IMPRESSION: No acute cardiopulmonary pathology. Dictated by: Jeremiah Haines M.D. on 10/19/2024 at 1:19 Approved by: Jeremiah Haines M.D. on 10/19/2024 at 1:20 MDM Narrative Medical decision making narrative: 24-year-old male with bilateral arm and leg pain and low back pain typical of his sickle crises presentations. Also ran out of hydrocodone chronic pain medications. Afebrile, sirs screen negative, lungs clear, no oxygen requirement. Old left hemiparesis changes and left upper extremity flexion contracture noted. Labs pending. Labs improved from September 2024 results, reticulocyte elevated but lower than last month. Chest x-ray no acute changes. IV fluids, IV Dilaudid given. Symptoms improved. Oral hydrocodone/APAP given. He feels better when like to go home. Refill of hydrocodone/APAP sent to his pharmacy. Advised to follow up with his regular doctor as scheduled. Return precautions discussed. Discharge Plan Departure Patient Disposition: Home Clinical Impression: Sickle cell anemia with crisis Activity Restrictions/Additional Instructions: History of sickle cell crises, similar pain to arms and legs and back with similar presentations to the emergency department. No fever, no oxygen requirement, chest x-ray unremarkable. Labs including reticulocyte and white blood cell count were not as bad as they were in September, though they were not normal today. You were given IV fluids and IV pain medications and felt better. Refill of your hydrocodone sent to your pharmacy. Recheck with your regular doctor as scheduled. Return to this/nearest emergency department for any change worsening symptoms or any concerns prior. Thank you for allowing our team to take care of you today. Prescriptions: New hydrocodone-acetaminophen 5-325 mg tablet 1 tab PO Q6H PRN (Reason: pain) Qty: 14 0RF No Action hydroxyurea (sickle cell) 200 mg capsule 200 mg PO DAILY Qty: 90 0RF duloxetine 60 mg capsule,delayed release(DR/EC) 60 mg PO DAILY Qty: 60 0RF Rx Instructions: Start with 30mg tablets on day 8 start 60mg penicillin V potassium 250 mg tablet 250 mg PO BID Qty: 90 0RF ondansetron 4 mg tablet,disintegrating 4 mg PO Q8H PRN (Reason: nausea and vomiting) Qty: 20 0RF oxycodone-acetaminophen [Percocet] 5-325 mg tablet 1 tab PO Q4-6H PRN (Reason: pain) Qty: 30 0RF hydromorphone [Dilaudid] 2 mg tablet 2 mg PO Q6H PRN (Reason: pain) Qty: 14 0RF Referrals: Jen Albarran FNP-BC [Primary Care Provider] - Stand Alone Forms: Patient Portal/API/Survey
[2024-10-19] MEDS: HYDROMORPHONE 1 MG INJ IV (02:32)
[2024-10-19 02:54] LABS: Add Manual Diff / Slide Review NO; Basophils Absolute Auto 300 /uL (0-100); Basophils Percent Auto 2.2 % (0-2); Eosinophils Absolute Auto 400 /uL (0-450); Eosinophils Percent Auto 3.7 % (2-4); Hematocrit 25.8 % (41-53); Hemoglobin 8.8 g/dL (13.5-17.5); Lymphocytes Absolute Auto 3300 /uL (1100-4500); Lymphocytes Percent Auto 28.4 % (25-40); Mean Corpuscular HGB Conc 34.1 % (30-36); Mean Corpuscular Hemoglobin 25.8 PG (26-34); Mean Corpuscular Volume 75.8 fL (80-100); Monocytes Absolute Auto 1200 /uL (0-900); Monocytes Percent Auto 10.1 % (3-14); Neutrophils Absolute Auto 6400 /uL (1500-7000); Neutrophils Percent Auto 55.6 % (50-75); Platelet Count 422 X10^3/uL (150-400); Red Cell Distribution Width 18.5 % (11.6-14.8); White Blood Cell Count 11.5 X10^3/uL (4.5-11.0)
[2024-10-19 03:00] LABS: Reticulocyte Count, Percent 9.3 % (0.9-2.6)
[2024-10-19] MEDS: HYDROCODONE/ACET 5/325 TABLET 1 TAB PO (03:18)
== END 2024-10-19 03:27 | disposition home or self-care (01) ==
PROVIDERS: Emergency Provider Emergency Medicine; PCP Nurse Practitioner Family
DX: D57.00 Hb-SS disease with crisis, unspecified (principal); I69.354 Hemiplegia and hemiparesis following cerebral infarction affecting left non-dominant side
CPT/HCPCS: 36415; 71045; 80053; 85025; 85045; 96361; 96374; 96375; 96376; 99284; J1171; J2405

== ENCOUNTER 2024-10-21 15:33 | Emergency (ER) | payer OTHER, SELFPAY ==
[2024-10-21 15:42] VITALS: BP 106/60; PULSE 80; RESP 18; TEMP 36.4; O2SAT 97; BMI 19.3
[2024-10-21] MEDS: SODIUM CHLORIDE 0.9% 1,000 ML 1000 ML IV (16:06)
[2024-10-21] MEDS: HYDROMORPHONE 1 MG INJ IV ×2 (16:06→17:10)
[2024-10-21 17:05] LABS: Hematocrit 28.2 % (41-53); Hemoglobin 9.4 g/dL (13.5-17.5); Mean Corpuscular HGB Conc 33.4 % (30-36); Mean Corpuscular Hemoglobin 25.5 PG (26-34); Mean Corpuscular Volume 76.2 fL (80-100); Platelet Count 407 X10^3/uL (150-400); Red Cell Distribution Width 18.6 % (11.6-14.8)
[2024-10-21 17:07] LABS: Alanine Aminotransferase 31 IU/L (<50); Albumin 4.9 g/dL (3.5-5.0); Albumin Globulin Ratio 1.1 (1.0-2.8); Alkaline Phosphatase 92 U/L (38-126); Aspartate Aminotransferase 61 IU/L (17-59); BUN Creatinine Ratio 7.4 (6-22); Bilirubin Total 3.2 mg/dL (0.2-1.3); Blood Urea Nitrogen 5 mg/dL (9-20); Carbon Dioxide 18 mmol/L (22-32); Chloride 106 mmol/L (98-107); Estimated Glomerular Filt Rate > 60 mL/min (>60); Globulin 4.3 g/dL (1.7-4.1); Glucose 97 mg/dL (70-100); HEMOLYSIS 27 (0-50); Potassium 3.8 mmol/L (3.4-5.1); Sodium 139 mmol/L (137-145); Total Protein 9.2 g/dL (6.3-8.2)
[2024-10-21 17:08] LABS: Add Manual Diff / Slide Review YES
[2024-10-21 17:12] VITALS: BP 104/78; PULSE 68; RESP 15; O2SAT 99
[2024-10-21 17:16] LABS: Reticulocyte Count, Percent 9.2 % (0.9-2.6)
[2024-10-21 17:26] LABS: Neutrophils Absolute Manual 4000 /uL (3000-5900); Nucleated Red Blood Cells 4 #/Diff; Total Cells Counted 100
[2024-10-21 17:27] LABS: Sickle Cells 2+
[2024-10-21 17:28] LABS: Anisocytosis 3+
[2024-10-21 17:30] LABS: Microcytosis 1+; Polychromasia 1+; Target Cells 2+
[2024-10-21 18:09] VITALS: BP 108/68; PULSE 69; RESP 17; O2SAT 98
--- NOTE | 2024-10-21 18:11 | PC.NURSE ---
Patient requesting to go home at this time. I reviewed this with Dr. Savage who reports she has not seen the patient yet and states if he wants to leave he needs to sign the VDC form. Patient states he would like to go, VDC form signed at this time. IV removed. Patient vital signs are stable and symptoms have resolved.
== END 2024-10-21 18:22 | disposition left against medical advice (07) ==
PROVIDERS: Emergency Provider Emergency Medicine; PCP Nurse Practitioner Family
DX: D57.00 Hb-SS disease with crisis, unspecified (principal)
CPT/HCPCS: 36415; 80053; 85007; 85025; 85045; 99284; J1171

== ENCOUNTER → 2024-10-23 08:31 | Outpatient (CLI) | payer OTHER, SELFPAY ==
[2024-09-28 18:57] VITALS: BMI 19.8
[2024-10-23 10:09] LABS: HEMOLYSIS < 15 (0-50); Iron 111 ug/dL (49-181)
[2024-10-23 10:21] LABS: Percent Iron Saturation 30 % (20-50); Total Iron Binding Capacity 364 ug/dL (261-462); Transferrin 279 mg/dL (206-381)
[2024-10-23 10:27] LABS: Vitamin D 25 Hydroxy (D3) < 12.8 ng/mL (30.0-100.0)
[2024-10-23 10:42] LABS: TSH w/ Reflex to FT4 0.16 uIU/mL (0.47-4.68)
[2024-10-23 10:50] LABS: Ferritin 56 ng/mL (18-464)
[2024-10-23 11:17] LABS: Folate 4.1 ng/mL (2.76-20.0); Vitamin B12 769 pg/mL (239-931)
[2024-10-23 12:10] LABS: Free T4, Direct Thyroxine 1.19 ng/dL (0.78-2.19)
== END ==
PROVIDERS: PCP Nurse Practitioner Family; Referring Provider Nurse Practitioner Family; Visit Provider Nurse Practitioner Family
DX: D57.1 Sickle-cell disease without crisis (principal); D57.00 Hb-SS disease with crisis, unspecified; F41.9 Anxiety disorder, unspecified; F32.A Depression, unspecified
CPT/HCPCS: 36415; 82306; 82607; 82728; 82746; 83540; 83550; 84439; 84443

== ENCOUNTER 2024-10-23 13:19 | Emergency (ER) | payer OTHER, SELFPAY ==
[2024-10-23 13:22] VITALS: BP 105/53; PULSE 67; RESP 20; TEMP 36.4; O2SAT 100; BMI 19.5
--- NOTE | 2024-10-23 16:01 | ED_ITS ---
HPI - Extremity Injury (Upper) <Trisha Low PA-C - Last Filed: 10/23/24 18:56> General Chief Complaint: Extremity Injury, Upper Stated Complaint: sickle cell crisis Time Seen by Provider: 10/23/24 15:44 Source: patient Mode of arrival: Ambulatory History of Present Illness HPI narrative: Mr. Keller is a very pleasant 24-year-old male with a past medical history of sickle cell disease, history of stroke with left hemiparesis at age 1, avascular necrosis, prior right hip replacement, prior splenectomy and cholecystectomy, currently on daily folic acid and penicillin VK and hydrocodone 5 mg who presents to the emergency department for a sickle cell pain crisis. Patient states this week he has been dealing with a pain crisis, was last in the emergency department on 10/19/2024. 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 He describes low back pain and pain in all 4 of his extremities which he reports is very typical of his sickle cell pain. He denies fevers, chills, flu symptoms, chest pain, shortness of breath. No dysuria or hematuria. He took 5 mg of hydrocodone this morning and no pain medication since. Related Data Previous Rx's Medication Instructions Recorded hydromorphone 2 mg tablet 2 mg PO Q6H PRN pain #14 tabs 09/30/24 (Dilaudid) duloxetine 60 mg capsule,delayed 60 mg PO DAILY #60 caps 10/02/24 release hydroxyurea (sickle cell) 200 mg 200 mg PO DAILY #90 caps 10/02/24 capsule ondansetron 4 mg disintegrating 4 mg PO Q8H PRN nausea and 10/02/24 tablet vomiting #20 tabs penicillin V potassium 250 mg 250 mg PO BID sickle cell #90 tabs 10/02/24 tablet hydrocodone 5 mg-acetaminophen 325 1 tab PO Q6H PRN pain #14 tabs 10/19/24 mg tablet oxycodone-acetaminophen 5 mg-325 1 tab PO Q4-6H PRN pain #30 tabs 10/23/24 mg tablet (Percocet) Allergies Allergy/AdvReac Type Severity Reaction Status Date / Time No Known Drug Allergies Allergy Verified 10/23/24 07:54 Review of Systems <Trisha Low PA-C - Last Filed: 10/23/24 18:56> Review of Systems ROS Unobtainable: All systems reviewed & are unremarkable except as noted in HPI and below Patient History <Trisha Low PA-C - Last Filed: 10/23/24 18:56> Medical History PTSD (post-traumatic stress disorder) Depression Anxiety Seizure Anemia Avascular necrosis of bone Contracture, left elbow Contracture, left hand CVA (cerebral vascular accident) Sickle cell anemia Surgical History History of shoulder surgery 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 Family History Father Cancer Sickle cell trait Lupus Mother Sickle cell trait Brother Sickle cell trait Social History household members: significant other Smoking Status: Never smoker alcohol intake: never Smoking Status: Never smoker alcohol intake frequency: holidays/special occasions only Exam <Trisha Low PA-C - Last Filed: 10/23/24 18:56> Narrative Exam Narrative: GENERAL: 24 year old patient appears stated age. Well-developed patient, in no acute distress, sitting in ED chair. HEAD: Atraumatic. Normocephalic. NECK: Trachea midline. Cervical ROM intact. CARDIOVASCULAR: Regular rate and rhythm. RESPIRATORY: ?Nonlabored respirations. ?Speaking in clear, full sentences. ?Clear to auscultation. Breath sounds equal bilaterally. No wheezes, rales, or rhonchi. ? EXTREMITIES: Contracture of left elbow and left hand. Decreased muscle tone and strength of left lower extremity. BACK: Nontender without deformity or crepitance. No flank tenderness. NEURO: AOx3. ?Clear speech. ?Sensation intact to light touch on all 4 extremities. No facial asymmetry. Good insight and judgment. SKIN: No rash or erythema of visible areas Initial Vital Signs Initial Vital Signs: Vital Signs Temperature 97.6 F 10/23/24 13:22 Pulse Rate 67 10/23/24 13:22 Respiratory Rate 20 10/23/24 13:22 Blood Pressure 105/53 L 10/23/24 13:22 Pulse Oximetry 100 10/23/24 13:22 Oxygen Delivery Method Room Air 10/23/24 13:22 <Marie Pang MD - Last Filed: 10/23/24 18:57> Initial Vital Signs Initial Vital Signs: Vital Signs Temperature 97.6 F 10/23/24 13:22 Pulse Rate 67 10/23/24 13:22 Respiratory Rate 20 10/23/24 13:22 Blood Pressure 105/53 L 10/23/24 13:22 Pulse Oximetry 100 10/23/24 13:22 Oxygen Delivery Method Room Air 10/23/24 13:22 Course <Trisha Low PA-C - Last Filed: 10/23/24 18:56> Orders Ordered: ED Orders 10/23/24 16:08 CBC Auto Diff [Complete Blood Count AUTO DIFF] Stat CMP [Comprehensive Metabolic Panel] Stat RETIC [Reticulocyte Count, Percent] Stat 10/23/24 16:09 XR chest 1V Stat 10/23/24 17:15 Urinalysis and Microscopic Stat Discontinued Medications Hydrocodone Bitart/Acetaminophen (Hydrocodone/Acet 5/325 Tablet) 1 tab PO NOW ONE Stop: 10/23/24 18:43 Hydromorphone HCl (Hydromorphone 1 Mg Inj) 1 mg IV NOW ONE Stop: 10/23/24 16:16 Last Admin: 10/23/24 16:40 Dose: 1 mg Documented By: LILIAM Hydromorphone HCl (Hydromorphone 1 Mg Inj) 1 mg IV NOW ONE Stop: 10/23/24 17:47 Last Admin: 10/23/24 18:02 Dose: 1 mg Documented By: LILIAM Sodium Chloride (Normal Saline 0.9%) 1,000 mls @ 1,000 mls/hr IV BOLUS ONE Stop: 10/23/24 17:08 Last Infusion: 10/23/24 17:57 Dose: Infused Documented By: Admin: 10/23/24 16:38 Dose: 1,000 mls/hr Documented By: LILIAM Ketorolac Tromethamine (Ketorolac 30 Mg/Ml Vial) 15 mg IV NOW ONE Stop: 10/23/24 16:16 Last Admin: 10/23/24 16:40 Dose: 15 mg Documented By: LILIAM Vital Signs Vital signs: Vital Signs - 8 hr 10/23/24 13:22 10/23/24 18:06 Temperature 97.6 F Pulse Rate 67 67 Respiratory Rate 20 19 Blood Pressure 105/53 L 115/65 Pulse Oximetry 100 98 Oxygen Delivery Method Room Air Room Air <Marie Pang MD - Last Filed: 10/23/24 18:57> Orders Ordered: ED Orders 10/23/24 16:08 CBC Auto Diff [Complete Blood Count AUTO DIFF] Stat CMP [Comprehensive Metabolic Panel] Stat RETIC [Reticulocyte Count, Percent] Stat 10/23/24 16:09 XR chest 1V Stat 10/23/24 17:15 Urinalysis and Microscopic Stat Discontinued Medications Hydrocodone Bitart/Acetaminophen (Hydrocodone/Acet 5/325 Tablet) 1 tab PO NOW ONE Stop: 10/23/24 18:43 Hydromorphone HCl (Hydromorphone 1 Mg Inj) 1 mg IV NOW ONE Stop: 10/23/24 16:16 Last Admin: 10/23/24 16:40 Dose: 1 mg Documented By: LILIAM Hydromorphone HCl (Hydromorphone 1 Mg Inj) 1 mg IV NOW ONE Stop: 10/23/24 17:47 Last Admin: 10/23/24 18:02 Dose: 1 mg Documented By: LILIAM Sodium Chloride (Normal Saline 0.9%) 1,000 mls @ 1,000 mls/hr IV BOLUS ONE Stop: 10/23/24 17:08 Last Infusion: 10/23/24 17:57 Dose: Infused Documented By: Admin: 10/23/24 16:38 Dose: 1,000 mls/hr Documented By: LILIAM Ketorolac Tromethamine (Ketorolac 30 Mg/Ml Vial) 15 mg IV NOW ONE Stop: 10/23/24 16:16 Last Admin: 10/23/24 16:40 Dose: 15 mg Documented By: LILIAM Vital Signs Vital signs: Vital Signs - 8 hr 10/23/24 13:22 10/23/24 18:06 Temperature 97.6 F Pulse Rate 67 67 Respiratory Rate 20 19 Blood Pressure 105/53 L 115/65 Pulse Oximetry 100 98 Oxygen Delivery Method Room Air Room Air MDM - Extremity Injury (Upper) <Trisha Low PA-C - Last Filed: 10/23/24 18:56> Medical Records Attestation: I reviewed the patient's medical records. Medical records narrative: ED visits on 10/19/2024, 10/02/2024, 09/28/2024, 09/28/2024, 09/26/2024, 09/06/2024, 09/04/2024, 09/01/2024, 08/31/2024, 08/24/2024 this year. Lab Data 10/23/24 16:08 10/23/24 16:08 Labs: Lab Results 10/23/24 10/23/24 Range/Units 16:08 17:15 WBC 13.3 H (4.5-11.0) X10^3/uL RBC 3.91 L (4.5-5.9) X10^6/uL Hgb 9.9 L (13.5-17.5) g/dL Hct 29.7 L (41-53) % MCV 76.0 L (80-100) fL MCH 25.3 L (26-34) PG MCHC 33.3 (30-36) % RDW 19.1 H (11.6-14.8) % Plt Count 290 (150-400) X10^3/uL Neut % (Auto) Not Reportable Lymph % (Auto) Not Reportable [place] % (Auto) Not Reportable Eos % (Auto) Not Reportable Baso % (Auto) Not Reportable Lymph # (Auto) Not Reportable [place] # (Auto) Not Reportable Baso # (Auto) Not Reportable Total Counted 100 Seg Neutrophils % 54.0 (38-70) % Lymphocytes % (Manual) 40.0 (25-45) % Monocytes % (Manual) 4.0 (2-11) % Eosinophils % (Manual) 1.0 L (2-4) % Basophils % (Manual) 1.0 (0-1) % Neutrophils # (Manual) 7182 H (3723-8500) /uL Nucleated RBCs 5 H ( - 0) #/Diff RBC Morphology See below Polychromasia 1+ H Poikilocytosis Not Reportable Anisocytosis 3+ H Sickle Cells 1+ H Target Cells 2+ H Percent Retic 7.4 H (0.9-2.6) % Sodium 137 (137-145) mmol/L Potassium 4.4 (3.4-5.1) mmol/L Chloride 105 (98-107) mmol/L Carbon Dioxide 18 L (22-32) mmol/L BUN 6 L (9-20) mg/dL Creatinine 0.65 L (0.66-1.25) mg/dL Estimated GFR > 60 (>60) mL/min BUN/Creatinine Ratio 9.2 (6-22) Glucose 75 (70-100) mg/dL Calcium 9.0 (8.4-10.2) mg/dL Total Bilirubin 3.6 H (0.2-1.3) mg/dL AST 89 H (17-59) IU/L ALT 32 (<50) IU/L Alkaline Phosphatase 75 (38-126) U/L Total Protein 9.2 H (6.3-8.2) g/dL Albumin 5.0 (3.5-5.0) g/dL Globulin 4.2 H (1.7-4.1) g/dL Albumin/Globulin Ratio 1.2 (1.0-2.8) Urine Color Yellow Urine Appearance Clear Urine pH 6.0 (4.5-8.0) Ur Specific [place] 1.010 (1.000-1.035) Urine Protein Negative (Negative) Urine Glucose (UA) Negative (Negative) g/dL Urine Ketones 1+ H (NEGATIVE) Urine Occult Blood Trace-lysed (Negative) Urine Nitrate Negative (Negative) Urine Bilirubin Negative (NEGATIVE) Urine Urobilinogen 1.0 (0.2) E.U./dL Ur Leukocyte Esterase Negative (NEGATIVE) Urine RBC None seen (0-5/HPF) Urine WBC None seen (0-5/HPF) Ur Squamous Epith Cells None seen (0-5/HPF) Urine Bacteria Few (2-10) H (None) Ur Culture Indicated? Cult not indicated Vol Urine Centrifuged 10ml (spun) Imaging Data Chest x-ray: Radiologist's Impression: PROCEDURE: XR CHEST 1V INDICATIONS: SS crisis; arm and back pain TECHNIQUE: One view of the chest was acquired. COMPARISON: [facility], CR, XR CHEST 1V, 10/19/2024, 1:05. FINDINGS: Surgical changes and devices: None. Lungs and pleura: Lungs are clear. No pleural effusions or pneumothorax. Mediastinum: Mediastinal contours appear normal. Heart size is normal. Bones and chest wall: Deformity involving left humeral head is seen likely represent avascular necrosis secondary to patient's history of sickle cell disease. Overlying soft tissues appear unremarkable. IMPRESSION: No acute cardiopulmonary pathology. Suggestion of chronic avascular necrosis involving left humeral head. MDM Narrative Medical decision making narrative: 24-year-old male with a past medical history of sickle cell disease, history of stroke with left hemiparesis at age 1, avascular necrosis, prior right hip replacement, prior splenectomy and cholecystectomy, currently on daily folic acid and penicillin VK and hydrocodone 5 mg who presents to the emergency department for a sickle cell pain crisis --describes pain is in the low back, extremities, similar to prior pain crises, no fevers, history of frequent ED visits. He does not currently follow with a assistant kitchen manager but does follow up with PCP. Differential diagnosis includes but is not limited to sickle cell pain crisis, bony infarct, UTI, lumbar radiculopathy, etc. On exam the patient is in no acute distress, nontoxic appearing, vital signs appropriate for age. Physical exam overall within normal limits for patient. We will obtain baseline CBC, CMP, reticulocyte count, chest x-ray, UA given low back pain and treat with fluids Dilaudid and Toradol and reassess. Labs reveal hemoglobin 9.9 up from 9.4 two days ago. WBC increased from 10.0 to 13.3. Normal platelets 290. Creatinine 0.65. AST elevated at 89. Peripheral reticulocytes 7.4, down from 9.2 two days ago. UA reveals no sign of infection. Chest x-ray reveals no acute cardiopulmonary pathology. Suggestion of chronic avascular necrosis involving left humeral head. This was seen on chest x-ray on 09/26/2024, patient reports prior surgery for this. Patient feeling some improvement after 1st dose of pain medication, is requesting 2nd dose, is hoping to go home today. After a total of 2 doses of parental opioids, toradol, and 1 dose oral opioids patient pain is improved significantly and he is requesting discharge home. Discussed the importance of patient following up with hematology, PCP. Discharge return precautions discussed. Patient verbalized understanding of all information is agreeable with the plan. He is stable for discharge home. <Marie Pang MD - Last Filed: 10/23/24 18:57> Lab Data Labs: Lab Results 10/23/24 10/23/24 Range/Units 16:08 17:15 WBC 13.3 H (4.5-11.0) X10^3/uL RBC 3.91 L (4.5-5.9) X10^6/uL Hgb 9.9 L (13.5-17.5) g/dL Hct 29.7 L (41-53) % MCV 76.0 L (80-100) fL MCH 25.3 L (26-34) PG MCHC 33.3 (30-36) % RDW 19.1 H (11.6-14.8) % Plt Count 290 (150-400) X10^3/uL Neut % (Auto) Not Reportable Lymph % (Auto) Not Reportable [place] % (Auto) Not Reportable Eos % (Auto) Not Reportable Baso % (Auto) Not Reportable Lymph # (Auto) Not Reportable [place] # (Auto) Not Reportable Baso # (Auto) Not Reportable Total Counted 100 Seg Neutrophils % 54.0 (38-70) % Lymphocytes % (Manual) 40.0 (25-45) % Monocytes % (Manual) 4.0 (2-11) % Eosinophils % (Manual) 1.0 L (2-4) % Basophils % (Manual) 1.0 (0-1) % Neutrophils # (Manual) 7182 H (0015-6360) /uL Nucleated RBCs 5 H ( - 0) #/Diff RBC Morphology See below Polychromasia 1+ H Poikilocytosis Not Reportable Anisocytosis 3+ H Sickle Cells 1+ H Target Cells 2+ H Percent Retic 7.4 H (0.9-2.6) % Sodium 137 (137-145) mmol/L Potassium 4.4 (3.4-5.1) mmol/L Chloride 105 (98-107) mmol/L Carbon Dioxide 18 L (22-32) mmol/L BUN 6 L (9-20) mg/dL Creatinine 0.65 L (0.66-1.25) mg/dL Estimated GFR > 60 (>60) mL/min BUN/Creatinine Ratio 9.2 (6-22) Glucose 75 (70-100) mg/dL Calcium 9.0 (8.4-10.2) mg/dL Total Bilirubin 3.6 H (0.2-1.3) mg/dL AST 89 H (17-59) IU/L ALT 32 (<50) IU/L Alkaline Phosphatase 75 (38-126) U/L Total Protein 9.2 H (6.3-8.2) g/dL Albumin 5.0 (3.5-5.0) g/dL Globulin 4.2 H (1.7-4.1) g/dL Albumin/Globulin Ratio 1.2 (1.0-2.8) Urine Color Yellow Urine Appearance Clear Urine pH 6.0 (4.5-8.0) Ur Specific [place] 1.010 (1.000-1.035) Urine Protein Negative (Negative) Urine Glucose (UA) Negative (Negative) g/dL Urine Ketones 1+ H (NEGATIVE) Urine Occult Blood Trace-lysed (Negative) Urine Nitrate Negative (Negative) Urine Bilirubin Negative (NEGATIVE) Urine Urobilinogen 1.0 (0.2) E.U./dL Ur Leukocyte Esterase Negative (NEGATIVE) Urine RBC None seen (0-5/HPF) Urine WBC None seen (0-5/HPF) Ur Squamous Epith Cells None seen (0-5/HPF) Urine Bacteria Few (2-10) H (None) Ur Culture Indicated? Cult not indicated Vol Urine Centrifuged 10ml (spun) Discharge Plan Departure Patient Disposition: Home Clinical Impression: Sickle-cell disease with pain Instructions: DI for Sickle Cell Anemia, Pain Crisis -- Adult Activity Restrictions/Additional Instructions: Dear Mr. Keller, Thank you for coming to the emergency department. Today you were evaluated for a sickle cell pain crisis. Please follow up with your primary care doctor for further management, and also please follow up with the assistant kitchen manager for preventative management of your sickle cell disease. You may use your home dose of hydrocodone-acetaminophen for pain in addition to ibuprofen. Please return to the emergency department if you have any concerns. Your lab work today did reveal slight elevation in your liver enzyme, AST, so it is important to follow up with your primary doctor for further lab work. Please follow up with your primary care doctor within the next 2-3 days for ER follow-up. (If you do not have a PCP you can call [phone]. ?to schedule an appointment with an [facility] Primary Care Provider) IF YOU DEVELOP ANY NEW OR WORSENING SYMPTOMS, RETURN TO THE ER! Please read the attached instructions, they highlight more specific treatments and interventions for you at home. Thank you for letting me participate in your care, Trisha Low PA-C Prescriptions: No Action hydroxyurea (sickle cell) 200 mg capsule 200 mg PO DAILY Qty: 90 0RF duloxetine 60 mg capsule,delayed release(DR/EC) 60 mg PO DAILY Qty: 60 0RF Rx Instructions: Start with 30mg tablets on day 8 start 60mg penicillin V potassium 250 mg tablet 250 mg PO BID Qty: 90 0RF oxycodone-acetaminophen [Percocet] 5-325 mg tablet 1 tab PO Q4-6H PRN (Reason: pain) Qty: 30 0RF ondansetron 4 mg tablet,disintegrating 4 mg PO Q8H PRN (Reason: nausea and vomiting) Qty: 20 0RF hydromorphone [Dilaudid] 2 mg tablet 2 mg PO Q6H PRN (Reason: pain) Qty: 14 0RF hydrocodone-acetaminophen 5-325 mg tablet 1 tab PO Q6H PRN (Reason: pain) Qty: 14 0RF Referrals: Jen Albarran, [employer] SUPER[employer]OR[employer] [Primary Care Provider] - Stand Alone Forms: Patient Portal/API/Survey ED Sign-out <Marie Pang MD - Last Filed: 10/23/24 18:57> Cosign ED Attending Nj[place] Attestation: I was immediately available in the department for consultation throughout this patient's visit. Marie Pang MD
--- NOTE | 2024-10-23 16:09 | DI.RAD.S_ITS ---
PROCEDURE: XR CHEST 1V INDICATIONS: SS crisis; arm and back pain TECHNIQUE: One view of the chest was acquired. COMPARISON: [facility], CR, XR CHEST 1V, 10/19/2024, 1:05. FINDINGS: Surgical changes and devices: None. Lungs and pleura: Lungs are clear. No pleural effusions or pneumothorax. Mediastinum: Mediastinal contours appear normal. Heart size is normal. Bones and chest wall: Deformity involving left humeral head is seen likely represent avascular necrosis secondary to patient's history of sickle cell disease. Overlying soft tissues appear unremarkable. IMPRESSION: No acute cardiopulmonary pathology. Suggestion of chronic avascular necrosis involving left humeral head. Dictated by: Jeremiah Haines M.D. on 10/23/2024 at 16:45 Approved by: Jeremiah Haines M.D. on 10/23/2024 at 16:46
[2024-10-23 16:27] LABS: Hematocrit 29.7 % (41-53); Hemoglobin 9.9 g/dL (13.5-17.5); Mean Corpuscular HGB Conc 33.3 % (30-36); Mean Corpuscular Hemoglobin 25.3 PG (26-34); Platelet Count 290 X10^3/uL (150-400); Red Blood Cell Count 3.91 X10^6/uL (4.5-5.9); Red Cell Distribution Width 19.1 % (11.6-14.8); White Blood Cell Count 13.3 X10^3/uL (4.5-11.0)
[2024-10-23 16:32] LABS: Alanine Aminotransferase 32 IU/L (<50); Albumin Globulin Ratio 1.2 (1.0-2.8); Alkaline Phosphatase 75 U/L (38-126); BUN Creatinine Ratio 9.2 (6-22); Bilirubin Total 3.6 mg/dL (0.2-1.3); Blood Urea Nitrogen 6 mg/dL (9-20); Carbon Dioxide 18 mmol/L (22-32); Chloride 105 mmol/L (98-107); Estimated Glomerular Filt Rate > 60 mL/min (>60); Globulin 4.2 g/dL (1.7-4.1); Glucose 75 mg/dL (70-100); Sodium 137 mmol/L (137-145); Total Protein 9.2 g/dL (6.3-8.2)
[2024-10-23 16:34] LABS: Add Manual Diff / Slide Review YES; Aspartate Aminotransferase 89 IU/L (17-59); HEMOLYSIS 111 (0-50); Potassium 4.4 mmol/L (3.4-5.1)
[2024-10-23] MEDS: SODIUM CHLORIDE 0.9% 1,000 ML 1000 ML IV (16:38)
[2024-10-23] MEDS: HYDROMORPHONE 1 MG INJ IV ×2 (16:40→18:02)
[2024-10-23] MEDS: KETOROLAC 30 MG/ML VIAL 15 MG IV (16:40)
[2024-10-23 16:44] LABS: Reticulocyte Count, Percent 7.4 % (0.9-2.6)
[2024-10-23 16:54] LABS: Neutrophils Absolute Manual 7182 /uL (3000-5900); Nucleated Red Blood Cells 5 #/Diff; Total Cells Counted 100
[2024-10-23 16:55] LABS: Target Cells 2+
[2024-10-23 16:56] LABS: Polychromasia 1+; Sickle Cells 1+
[2024-10-23 16:58] LABS: Anisocytosis 3+
[2024-10-23 17:23] LABS: Appearance Urine UA CLEAR; Bilirubin Urine UA NEGATIVE (NEGATIVE); Color Urine UA YELLOW; Glucose Urine UA NEGATIVE (Negative); Ketones Urine UA 1+ (NEGATIVE); Leukocyte Esterase Urine UA NEGATIVE (NEGATIVE); Nitrite Urine UA NEGATIVE (Negative); Occult Blood Urine UA TRACE-LYSED (Negative); Protein Urine UA NEGATIVE (Negative)
--- NOTE | 2024-10-23 17:26 | PC.NURSE ---
Pt c/o back, chest, arms, legs pain. Pt states this is very similar to previous episodes. Denies fevers, difficulty urinating, etc. Denies trauma.
[2024-10-23 17:41] LABS: RBC Urine None Seen (0-5/HPF); Urine Volume 10mL (spun); WBC Urine None Seen (0-5/HPF)
[2024-10-23 17:42] LABS: Bacteria Urine Few (2-10); Culture Indicated Urine Cult Not Indicated; Squamous Epithelial Cell Urine None Seen (0-5/HPF)
[2024-10-23 18:06] VITALS: BP 115/65; PULSE 67; RESP 19; O2SAT 98
[2024-10-23] MEDS: HYDROCODONE/ACET 5/325 TABLET 1 TAB PO (18:58)
[2024-10-23 18:59] VITALS: BP 126/67; PULSE 55; RESP 16; O2SAT 98
[2024-10-23 19:00] VITALS: TEMP 36.4
== END 2024-10-23 19:12 | disposition home or self-care (01) ==
PROVIDERS: Emergency Provider Physician Assistant; PCP Nurse Practitioner Family
DX: D57.00 Hb-SS disease with crisis, unspecified (principal); Z86.73 Personal history of transient ischemic attack (TIA), and cerebral infarction without residual deficits
CPT/HCPCS: 36415; 71045; 80053; 81001; 82306; 82607; 82728; 82746; 83540; 83550; 84439; 84443; 85007; 85025; 85045; 96361; 96374; 96375; 96376; 99284; J1171; J1885

== ENCOUNTER 2024-11-02 11:55 | Emergency (ER) | payer OTHER, SELFPAY ==
[2024-11-02] VITALS (11 sets, daily range): BP systolic 99–118; BP diastolic 58–67; PULSE 56–79; RESP 16–18; TEMP 36.7; O2SAT 98–100; BMI 19.3
--- NOTE | 2024-11-02 12:19 | DI.RAD.S_ITS ---
PROCEDURE: XR CHEST 1V INDICATIONS: chest pain TECHNIQUE: One view of the chest was acquired. COMPARISON: [facility], CR, XR CHEST 1V, 10/23/2024, 16:19. [facility], CR, XR CHEST 1V, 10/19/2024, 1:05. [facility], CR, XR CHEST 1V, 09/28/2024, 4:01. [facility], CR, XR CHEST 1V, 09/26/2024, 7:51. FINDINGS: Surgical changes and devices: None. Lungs and pleura: Lungs are clear. No pleural effusions or pneumothorax. Mediastinum: Mediastinal contours appear normal. Heart size is normal. Bones and chest wall: No suspicious bony lesions. Overlying soft tissues appear unremarkable. IMPRESSION: No acute cardiothoracic process. Dictated by: Michael Rodriguez M.D. on 11/02/2024 at 11:56 Approved by: Michael Rodriguez M.D. on 11/02/2024 at 11:57
--- NOTE | 2024-11-02 13:14 | ED.BACK ---
HPI - Back Pain/Injury General Chief Complaint: Back Pain/Injury Stated Complaint: back and legs hurt; maybe sickle cell crisis Time Seen by Provider: 11/02/24 12:19 Source: patient History of Present Illness HPI Narrative: 24-year-old male with history of sickle cell disease, frequent admissions for crisis pain control and hydration, prior splenectomy, prior childhood stroke with resultant left-sided hemiparesis upper greater than lower, left upper arm flexion contracture, crises symptoms often manifest with low back pain and leg pain, which is the case today. He has typical crisis symptoms of low back pain and bilateral leg pain since last night. Not responsive to his oral pain medications. He denies any cough fevers chills. He denies shortness of breath. Denies headache photophobia neck pain. He denies abdominal pain nausea or vomiting. Related Data Previous Rx's Medication Instructions Recorded hydromorphone 2 mg tablet 2 mg PO Q6H PRN pain #14 tabs 09/30/24 (Dilaudid) duloxetine 60 mg capsule,delayed 60 mg PO DAILY #60 caps 10/02/24 release hydroxyurea (sickle cell) 200 mg 200 mg PO DAILY #90 caps 10/02/24 capsule ondansetron 4 mg disintegrating 4 mg PO Q8H PRN nausea and 10/02/24 tablet vomiting #20 tabs penicillin V potassium 250 mg 250 mg PO BID sickle cell #90 tabs 10/02/24 tablet hydrocodone 5 mg-acetaminophen 325 1 tab PO Q6H PRN pain #14 tabs 10/19/24 mg tablet oxycodone-acetaminophen 5 mg-325 1 tab PO Q4-6H PRN pain #30 tabs 10/23/24 mg tablet (Percocet) cholecalciferol (vitamin D3) 1,250 1,250 mcg PO QWEEK 6 weeks #6 caps 10/25/24 mcg (50,000 unit) capsule cholecalciferol (vitamin D3) 10 20 mcg (2 x 10 mcg (400 unit)) PO 10/25/24 mcg (400 unit) capsule DAILY #180 caps hydrocodone 5 mg-acetaminophen 325 1 tab PO Q6H PRN pain #14 tabs 25 mg tablet hydrocodone 5 mg-acetaminophen 325 1 tab PO Q6H PRN pain #14 tabs 11/02/24 mg tablet Allergies Allergy/AdvReac Type Severity Reaction Status Date / Time No Known Drug Allergies Allergy Verified 10/23/24 07:54 Patient History Medical History (Updated 11/02/24 @ 16:24 by Jeovanny Yost MD) Vitamin D deficiency PTSD (post-traumatic stress disorder) Depression Anxiety Seizure Anemia Avascular necrosis of bone Contracture, left elbow Contracture, left hand CVA (cerebral vascular accident) Sickle cell anemia Surgical History History of shoulder surgery 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 Family History Father Cancer Sickle cell trait Lupus Mother Sickle cell trait Brother Sickle cell trait Social History household members: significant other Smoking Status: Never smoker alcohol intake: never Smoking Status: Never smoker alcohol intake frequency: holidays/special occasions only Exam Narrative Exam Narrative: GENERAL: Well-developed patient, in mild distress. HEAD: Atraumatic. Normocephalic. EYES: Pupils equal round and reactive. Extraocular motions intact. No scleral icterus. No injection or drainage. ENT: Nose without bleeding, purulent drainage. Throat without erythema, tonsillar hypertrophy or exudate. Airway patent. NECK: Trachea midline. Non tender CARDIOVASCULAR: Regular rate and rhythm without murmurs, gallops, or rubs. RESPIRATORY: Clear to auscultation. Breath sounds equal bilaterally. No wheezes, rales, or rhonchi. GASTROINTESTINAL: Abdomen soft, non-tender, nondistended. EXTREMITIES: No edema or joint tenderness. Old flexion contracture. Some muscle wasting left upper extremity same as prior evaluations, left lower extremity muscle wasting also similar to prior evaluations although no lower extremity flexion contractures. BACK: Nontender without deformity or crepitance. No flank tenderness. NEURO: AOx3. Left upper extremity weakness with flexion contracture similar to prior evaluations, left leg subjective weakness history of old stroke noted, similar to prior examinations. SKIN: No rash or erythema of visible areas Initial Vital Signs Initial Vital Signs: Vital Signs Temperature 98.1 F 11/02/24 12:11 Pulse Rate 67 11/02/24 12:11 Respiratory Rate 16 11/02/24 12:11 Blood Pressure 118/66 11/02/24 12:11 Pulse Oximetry 100 11/02/24 12:11 Oxygen Delivery Method Room Air 11/02/24 12:11 Course Orders Ordered: ED Orders 11/02/24 12:19 XR chest 1V Stat EKG-12 Lead Stat 11/02/24 13:08 Complete Blood Count AUTO DIFF Stat Comprehensive Metabolic Panel Stat Lipase Stat RETIC [Reticulocyte Count, Percent] Stat Troponin & CK Cardiac Panel Stat Discontinued Medications Hydrocodone Bitart/Acetaminophen (Hydrocodone/Acet 5/325 Tablet) 1 tab PO NOW ONE Stop: 11/02/24 15:26 Last Admin: 11/02/24 15:42 Dose: 1 tab Documented By: CHIQUIS Hydromorphone HCl (Hydromorphone 1 Mg Inj) 1 mg IV NOW ONE Stop: 11/02/24 12:20 Last Admin: 11/02/24 13:20 Dose: 1 mg Documented By: CHIQUIS Hydromorphone HCl (Hydromorphone 0.5 Mg Inj) 0.5 mg IV NOW ONE Stop: 11/02/24 14:58 Last Admin: 11/02/24 15:12 Dose: 0.5 mg Documented By: CHIQUIS Sodium Chloride (Normal Saline 0.9%) 1,000 mls @ 1,000 mls/hr IV BOLUS ONE Stop: 11/02/24 13:18 Last Infusion: 11/02/24 14:21 Dose: Infused Documented By: Admin: 11/02/24 13:21 Dose: 1,000 mls/hr Documented By: CHIQUIS Ondansetron HCl (Ondansetron 4 Mg/2 Ml Inj) 4 mg IV NOW ONE Stop: 11/02/24 12:20 Last Admin: 11/02/24 13:19 Dose: 4 mg Documented By: CHIQUIS Vital Signs Vital signs: Vital Signs - 8 hr 11/02/24 13:30 11/02/24 13:30 11/02/24 14:00 Pulse Rate 67 63 Respiratory Rate Blood Pressure 106/67 104/58 L Pulse Oximetry 98 98 11/02/24 14:30 11/02/24 15:00 11/02/24 15:00 Pulse Rate 61 57 L Respiratory Rate 16 Blood Pressure 106/65 99/60 99/60 Pulse Oximetry 98 98 11/02/24 15:30 11/02/24 16:00 Pulse Rate 59 L 56 L Respiratory Rate 16 18 Blood Pressure 101/60 108/66 Pulse Oximetry 98 100 MDM - Back Pain/Injury Lab Data Attestation: I reviewed the patient's lab results. Lab results narrative: White blood cell count 31603, hemoglobin 9.4, platelets 241,000. Sodium 138, potassium 4.1, serum CO2 21, serum chloride 106, BUN 6 with creatinine 0.66. Glucose 99. Total bilirubin 2.4, other liver functions unremarkable. Liver functions and lipase normal. Reticulocyte 5.2, lower than recent months values 7-10 range. 11/02/24 13:08 11/02/24 13:08 Labs: Lab Results 11/02/24 Range/Units 13:08 WBC 11.6 H (4.5-11.0) X10^3/uL RBC 3.81 L (4.5-5.9) X10^6/uL Hgb 9.4 L (13.5-17.5) g/dL Hct 28.3 L (41-53) % MCV 74.1 L (80-100) fL MCH 24.7 L (26-34) PG MCHC 33.3 (30-36) % RDW 17.3 H (11.6-14.8) % Plt Count 241 (150-400) X10^3/uL Neut % (Auto) Not Reportable Lymph % (Auto) Not Reportable [place] % (Auto) Not Reportable Eos % (Auto) Not Reportable Baso % (Auto) Not Reportable Lymph # (Auto) Not Reportable [place] # (Auto) Not Reportable Baso # (Auto) Not Reportable Total Counted 100 Seg Neutrophils % 66.0 (38-70) % Lymphocytes % (Manual) 25.0 (25-45) % Monocytes % (Manual) 6.0 (2-11) % Eosinophils % (Manual) 1.0 L (2-4) % Basophils % (Manual) 2.0 H (0-1) % Neutrophils # (Manual) 7656 H (2201-6946) /uL Nucleated RBCs 5 H ( - 0) #/Diff RBC Morphology See below Poikilocytosis 2+ H Anisocytosis 2+ H Sickle Cells 1+ H Target Cells 2+ H Percent Retic 5.2 H (0.9-2.6) % Sodium 138 (137-145) mmol/L Potassium 4.1 (3.4-5.1) mmol/L Chloride 106 (98-107) mmol/L Carbon Dioxide 21 L (22-32) mmol/L BUN 6 L (9-20) mg/dL Creatinine 0.66 (0.66-1.25) mg/dL Estimated GFR > 60 (>60) mL/min BUN/Creatinine Ratio 9.1 (6-22) Glucose 99 (70-100) mg/dL Calcium 9.1 (8.4-10.2) mg/dL Total Bilirubin 2.4 H (0.2-1.3) mg/dL AST 59 (17-59) IU/L ALT 27 (<50) IU/L Alkaline Phosphatase 72 (38-126) U/L Total Creatine Kinase 99 (55-170) U/L Troponin I 0.019 (0.01-0.034) ng/mL Total Protein 8.8 H (6.3-8.2) g/dL Albumin 4.8 (3.5-5.0) g/dL Globulin 4.0 (1.7-4.1) g/dL Albumin/Globulin Ratio 1.2 (1.0-2.8) Lipase 123 (23-300) U/L MDM Narrative Medical decision making narrative: 24-year-old male with known history of sickle cell disease, frequent presentations for sickle crises, with typical back pain and lower leg pain again today, no obvious trauma. IV Dilaudid/Zofran, IV fluid bolus. Labs pending including reticulocyte count. Lab studies results: White blood cell count 63846, hemoglobin 9.4, platelets 241,000. Sodium 138, potassium 4.1, serum CO2 21, serum chloride 106, BUN 6 with creatinine 0.66. Glucose 99. Total bilirubin 2.4, other liver functions unremarkable. Liver functions and lipase normal. Reticulocyte 5.2, lower than recent months values 7-10 range. Reticulocyte count elevated but decreased from most recent ED visits, 5.2 today compared to 07/10 range recent 2 months other visits. Still having pain, we will repeat IV Dilaudid dose. Pain improved some. No no longer nauseated. We will give oral hydrocodone, oral fluids, ambulation trial. Feels better, believes in go home. Refill oral hydrocodone/APAP, further refills through PCP, advised to follow up with [facility] as planned. Discharged with family. Return precautions discussed. Discharge Plan Departure Patient Disposition: Home Clinical Impression: Sickle cell disease with crisis Activity Restrictions/Additional Instructions: History of sickle cell disease with frequent crisis ED evaluations and sometimes admissions. Typical back pain and leg pain crisis symptoms today. IV fluids given, IV pain medication given, symptoms eventually improved. Your reticulocyte count today was 5.2 which is not normal in his elevated, but much lower than recent ED visit range 7-10, reassuring. Refill of your hydrocodone medication for pain control. Further refills by your regular doctor. Follow up with your [facility] clinical data specialist as planned. Return earlier to this/nearest emergency department for any change worsening symptoms or any concerns prior. Thank you for allowing our team to take care of you today. Prescriptions: New hydrocodone-acetaminophen 5-325 mg tablet 1 tab PO Q6H PRN (Reason: pain) Qty: 14 0RF hydrocodone-acetaminophen 5-325 mg tablet 1 tab PO Q6H PRN (Reason: pain) Qty: 14 0RF No Action cholecalciferol (vitamin D3) 1,250 mcg (50,000 unit) capsule 1,250 mcg PO QWEEK 42 Days Qty: 6 0RF Rx Instructions: Take 1 capsule weekly for 6 weeks then switch to 800 IU daily rx. cholecalciferol (vitamin D3) 10 mcg (400 unit) capsule 20 mcg PO DAILY Qty: 180 0RF Rx Instructions: Start two capsules daily after 6 weeks of 1250mcg weekly dosing. hydroxyurea (sickle cell) 200 mg capsule 200 mg PO DAILY Qty: 90 0RF duloxetine 60 mg capsule,delayed release(DR/EC) 60 mg PO DAILY Qty: 60 0RF Rx Instructions: Start with 30mg tablets on day 8 start 60mg penicillin V potassium 250 mg tablet 250 mg PO BID Qty: 90 0RF oxycodone-acetaminophen [Percocet] 5-325 mg tablet 1 tab PO Q4-6H PRN (Reason: pain) Qty: 30 0RF ondansetron 4 mg tablet,disintegrating 4 mg PO Q8H PRN (Reason: nausea and vomiting) Qty: 20 0RF hydromorphone [Dilaudid] 2 mg tablet 2 mg PO Q6H PRN (Reason: pain) Qty: 14 0RF hydrocodone-acetaminophen 5-325 mg tablet 1 tab PO Q6H PRN (Reason: pain) Qty: 14 0RF Referrals: Jen Albarran FNP-BC [Primary Care Provider] - Stand Alone Forms: Patient Portal/API/Survey
[2024-11-02] MEDS: ONDANSETRON 4 MG/2 ML INJ IV (13:19)
[2024-11-02] MEDS: HYDROMORPHONE 1 MG INJ IV (13:20)
[2024-11-02] MEDS: SODIUM CHLORIDE 0.9% 1,000 ML 1000 ML IV (13:21)
[2024-11-02 13:28] LABS: Alanine Aminotransferase 27 IU/L (<50); Albumin 4.8 g/dL (3.5-5.0); Albumin Globulin Ratio 1.2 (1.0-2.8); Alkaline Phosphatase 72 U/L (38-126); Aspartate Aminotransferase 59 IU/L (17-59); BUN Creatinine Ratio 9.1 (6-22); Bilirubin Total 2.4 mg/dL (0.2-1.3); Blood Urea Nitrogen 6 mg/dL (9-20); Calcium 9.1 mg/dL (8.4-10.2); Carbon Dioxide 21 mmol/L (22-32); Chloride 106 mmol/L (98-107); Creatine Kinase 99 U/L (55-170); Estimated Glomerular Filt Rate > 60 mL/min (>60); Glucose 99 mg/dL (70-100); HEMOLYSIS < 15 (0-50); Lipase 123 U/L (23-300); Potassium 4.1 mmol/L (3.4-5.1); Sodium 138 mmol/L (137-145); Total Protein 8.8 g/dL (6.3-8.2)
[2024-11-02 13:40] LABS: Troponin I 0.019 ng/mL (0.01-0.034)
[2024-11-02 13:42] LABS: Hematocrit 28.3 % (41-53); Hemoglobin 9.4 g/dL (13.5-17.5); Mean Corpuscular HGB Conc 33.3 % (30-36); Mean Corpuscular Hemoglobin 24.7 PG (26-34); Mean Corpuscular Volume 74.1 fL (80-100); Platelet Count 241 X10^3/uL (150-400); Red Blood Cell Count 3.81 X10^6/uL (4.5-5.9); Red Cell Distribution Width 17.3 % (11.6-14.8); White Blood Cell Count 11.6 X10^3/uL (4.5-11.0)
[2024-11-02 13:43] LABS: Add Manual Diff / Slide Review YES
[2024-11-02 13:53] LABS: Reticulocyte Count, Percent 5.2 % (0.9-2.6)
[2024-11-02 14:31] LABS: Neutrophils Absolute Manual 7656 /uL (3000-5900); Nucleated Red Blood Cells 5 #/Diff; Poikilocytosis 2+; Total Cells Counted 100
[2024-11-02 14:32] LABS: Anisocytosis 2+; Sickle Cells 1+; Target Cells 2+
[2024-11-02] MEDS: HYDROMORPHONE 0.5 MG INJ IV (15:12)
[2024-11-02] MEDS: HYDROCODONE/ACET 5/325 TABLET 1 TAB PO (15:42)
== END 2024-11-02 16:39 | disposition home or self-care (01) ==
PROVIDERS: Emergency Provider Emergency Medicine; PCP Nurse Practitioner Family
DX: D57.00 Hb-SS disease with crisis, unspecified (principal)
CPT/HCPCS: 36415; 71045; 80053; 82550; 83690; 84484; 85007; 85025; 85045; 96374; 96375; 96376; 99284; J1171; J2405

== ENCOUNTER 2024-11-11 19:28 | Emergency (ER) | payer OTHER, SELFPAY ==
[2024-11-11 19:30] VITALS: BP 117/66; PULSE 94; RESP 16; TEMP 36.8; O2SAT 97; BMI 19.3
--- NOTE | 2024-11-11 19:36 | ED.BACK ---
HPI - Back Pain/Injury General Chief Complaint: Back Pain/Injury Stated Complaint: Mid back pain Time Seen by Provider: 11/11/24 19:36 Source: patient History of Present Illness HPI Narrative: 24-year-old male with a past medical history of sickle cell disease, history of splenectomy with prior childhood stroke with residual left-sided hemiparesis upper greater than lower, chronically with left upper arm flexion contracture. He comes in for exacerbation of his sickle cell. States he normally has pain to his hips, has a history of avascular necrosis of the right hip, he denies any new trauma or falls. He presents for exacerbation of his normal sickle cell pain which is to his back and right arm pain. He denies any chest pain shortness of breath fever chills or any other symptoms at this time. Related Data Previous Rx's Medication Instructions Recorded hydromorphone 2 mg tablet 2 mg PO Q6H PRN pain #14 tabs 09/30/24 (Dilaudid) duloxetine 60 mg capsule,delayed 60 mg PO DAILY #60 caps 10/02/24 release hydroxyurea (sickle cell) 200 mg 200 mg PO DAILY #90 caps 10/02/24 capsule ondansetron 4 mg disintegrating 4 mg PO Q8H PRN nausea and 10/02/24 tablet vomiting #20 tabs penicillin V potassium 250 mg 250 mg PO BID sickle cell #90 tabs 10/02/24 tablet hydrocodone 5 mg-acetaminophen 325 1 tab PO Q6H PRN pain #14 tabs 25 mg tablet oxycodone-acetaminophen 5 mg-325 1 tab PO Q4-6H PRN pain #30 tabs 10/23/ mg tablet (Percocet) cholecalciferol (vitamin D3) 1,250 1,250 mcg PO QWEEK 6 weeks #6 caps 10/25/24 mcg (50,000 unit) capsule cholecalciferol (vitamin D3) 10 20 mcg (2 x 10 mcg (400 unit)) PO 10/25/24 mcg (400 unit) capsule DAILY #180 caps hydrocodone 5 mg-acetaminophen 325 1 tab PO Q6H PRN pain #14 tabs 25 mg tablet hydrocodone 5 mg-acetaminophen 325 1 tab PO Q6H PRN pain #14 tabs 11/02/25 mg tablet Allergies Allergy/AdvReac Type Severity Reaction Status Date / Time No Known Drug Allergies Allergy Verified 10/23/24 07:54 Review of Systems Review of Systems Narrative: General: Denies fever, chills, weight loss HEENT: Denies headache, eye drainage, eye irritation, head trauma, sore throat, voice change Cardiovascular: Denies any chest pain, palpitations, tachycardia Respiratory: Denies any shortness of breath, cough, wheeze, stridor GI/: Denies any abdominal pain, nausea, vomiting, diarrhea, bright red blood per rectum, melanotic stools, urinary frequency, urinary retention, dysuria, hematuria MSK: Sickle cell pain exacerbation, right arm pain and back pain Skin: Denies any rashes, lesions, discoloration Neuro: Denies any headache, lightheadedness, dizziness, fainting, weakness Psych: Denies SI/HI Patient History Medical History (Updated 11/11/24 @ 22:04 by Evens Stewart DO) Vitamin D deficiency PTSD (post-traumatic stress disorder) Depression Anxiety Seizure Anemia Avascular necrosis of bone Contracture, left elbow Contracture, left hand CVA (cerebral vascular accident) Sickle cell anemia Surgical History History of shoulder surgery 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 Family History Father Cancer Sickle cell trait Lupus Mother Sickle cell trait Brother Sickle cell trait Social History household members: significant other Smoking Status: Never smoker alcohol intake: never Smoking Status: Never smoker alcohol intake frequency: holidays/special occasions only Exam Narrative Exam Narrative: General: Cooperative, comfortable, well-developed, not in acute distress HEENT: Normocephalic, atraumatic, PERRLA, normal sclera, eyelids normal, Neck: Active full range of motion, atraumatic Chest: Normal to inspection, negative crepitus, no overlying erythema ecchymosis Respiratory: Normal respiratory effort, not in acute respiratory distress, clear to auscultation bilaterally negative cough, wheeze, tachypnea, rhonchi, rales Cardiology: Regular rate rhythm negative gallop, murmur, rubs GI/: Normal to inspection, soft, nonrigid, no tenderness to palpation, exam deferred MSK: patient with baseline left upper extremity deficits from history of vaso-occlusive crisis in the past, bilateral lower extremities neurovascularly intact able to stand bear weight ambulate unassisted here in the emergency department Skin: No rashes lesions noted Neuro: Alert awake oriented x3, m, cranial nerves intact, able to answer all questions appropriately follows commands appropriately Psych: Cooperative, negative suicidal or homicidal ideations Initial Vital Signs Initial Vital Signs: Vital Signs Temperature 98.2 F 11/11/24 19:30 Pulse Rate 94 H 11/11/24 19:30 Respiratory Rate 16 11/11/24 19:30 Blood Pressure 117/66 11/11/24 19:30 Pulse Oximetry 97 11/11/24 19:30 Oxygen Delivery Method Room Air 11/11/24 19:30 Course Orders Ordered: ED Orders 11/11/24 19:51 BMP [Basic Metabolic Panel] Stat CBC Auto Diff [Complete Blood Count AUTO DIFF] Stat RETIC [Reticulocyte Count, Percent] Stat Discontinued Medications Hydromorphone HCl (Hydromorphone 1 Mg Inj) 1 mg IV NOW ONE Stop: 11/11/24 19:37 Last Admin: 11/11/24 19:57 Dose: 1 mg Documented By: INO Hydromorphone HCl (Hydromorphone 1 Mg Inj) 1 mg IV NOW ONE Stop: 11/11/24 21:05 Last Admin: 11/11/24 21:23 Dose: 1 mg Documented By: INO Sodium Chloride (Normal Saline 0.9%) 1,000 mls @ 1,000 mls/hr IV BOLUS ONE Stop: 11/11/24 20:35 Last Admin: 11/11/24 19:58 Dose: 1,000 mls/hr Documented By: INO Vital Signs Vital signs: Vital Signs - 8 hr 11/11/24 19:30 11/11/24 20:48 Temperature 98.2 F Pulse Rate 94 H 79 Respiratory Rate 16 Blood Pressure 117/66 Pulse Oximetry 97 98 Oxygen Delivery Method Room Air Room Air MDM - Back Pain/Injury Differential Diagnosis Differential diagnosis: Likely lumbar radiculopathy and other (Sickle cell pain crisis) Lab Data 11/11/24 19:51 11/11/24 19:51 Labs: Lab Results 11/11/24 Range/Units 19:51 WBC 11.9 H (4.5-11.0) X10^3/uL RBC 3.82 L (4.5-5.9) X10^6/uL Hgb 9.5 L (13.5-17.5) g/dL Hct 28.3 L (41-53) % MCV 74.2 L (80-100) fL MCH 24.9 L (26-34) PG MCHC 33.5 (30-36) % RDW 17.7 H (11.6-14.8) % Plt Count 252 (150-400) X10^3/uL Neut % (Auto) Not Reportable Lymph % (Auto) Not Reportable [place] % (Auto) Not Reportable Eos % (Auto) Not Reportable Baso % (Auto) Not Reportable Lymph # (Auto) Not Reportable [place] # (Auto) Not Reportable Baso # (Auto) Not Reportable Total Counted 100 Seg Neutrophils % 46.0 (38-70) % Lymphocytes % (Manual) 47.0 H (25-45) % Monocytes % (Manual) 5.0 (2-11) % Eosinophils % (Manual) 2.0 (2-4) % Neutrophils # (Manual) 5474 (0475-7830) /uL Nucleated RBCs 1 H ( - 0) #/Diff RBC Morphology See below Polychromasia 1+ H Anisocytosis 2+ H Sickle Cells 2+ H Schistocytes 2+ H Percent Retic 6.1 H (0.9-2.6) % Sodium 139 (137-145) mmol/L Potassium 4.3 (3.4-5.1) mmol/L Chloride 106 (98-107) mmol/L Carbon Dioxide 23 (22-32) mmol/L BUN 9 (9-20) mg/dL Creatinine 0.66 (0.66-1.25) mg/dL Estimated GFR > 60 (>60) mL/min BUN/Creatinine Ratio 13.6 (6-22) Glucose 104 H (70-100) mg/dL Calcium 8.7 (8.4-10.2) mg/dL [facility] Narrative Medical decision making narrative: 24-year-old male with a past medical history of sickle cell with history of stroke with left-sided residual deficits presenting for exacerbation of his chronic sickle cell pain. States it is to his back and right shoulder, no trauma no falls not complaining of any other symptoms. Patient had lab work which was stable, had 3 doses of Dilaudid with improvement of his symptoms. Vitals were stable, given strict return precautions he verbalized understanding of this and agrees to being discharged home with outpatient follow up Discharge Plan Departure Patient Disposition: Home Clinical Impression: Sickle cell anemia with crisis Activity Restrictions/Additional Instructions: Please follow up with your primary care doctor Please read the discharge instructions sheet carefully and bring all papers to all doctor follow-up visits, as it may contain information that your doctor may want to see. Disease processes change and evolve, if your symptoms worsen or if you develop any new symptoms that are concerning to you please return for evaluation. Your evaluation today does not show any evidence of any life-threatening/serious illnesses requiring admission to the hospital or surgery. Please follow-up with your doctor for re-evaluation in approximately 1 day. Seek immediate medical attention for any worrisome symptoms. *If you do not have a primary care provider please contact the [facility] Resource line at [phone]. They will ask some questions about your medical history and help get you set up with a doctor in the community. Prescriptions: No Action cholecalciferol (vitamin D3) 1,250 mcg (50,000 unit) capsule 1,250 mcg PO QWEEK 42 Days Qty: 6 0RF Rx Instructions: Take 1 capsule weekly for 6 weeks then switch to 800 IU daily rx. cholecalciferol (vitamin D3) 10 mcg (400 unit) capsule 20 mcg PO DAILY Qty: 180 0RF Rx Instructions: Start two capsules daily after 6 weeks of 1250mcg weekly dosing. hydroxyurea (sickle cell) 200 mg capsule 200 mg PO DAILY Qty: 90 0RF duloxetine 60 mg capsule,delayed release(DR/EC) 60 mg PO DAILY Qty: 60 0RF Rx Instructions: Start with 30mg tablets on day 8 start 60mg penicillin V potassium 250 mg tablet 250 mg PO BID Qty: 90 0RF oxycodone-acetaminophen [Percocet] 5-325 mg tablet 1 tab PO Q4-6H PRN (Reason: pain) Qty: 30 0RF ondansetron 4 mg tablet,disintegrating 4 mg PO Q8H PRN (Reason: nausea and vomiting) Qty: 20 0RF hydrocodone-acetaminophen 5-325 mg tablet 1 tab PO Q6H PRN (Reason: pain) Qty: 14 0RF hydrocodone-acetaminophen 5-325 mg tablet 1 tab PO Q6H PRN (Reason: pain) Qty: 14 0RF hydromorphone [Dilaudid] 2 mg tablet 2 mg PO Q6H PRN (Reason: pain) Qty: 14 0RF hydrocodone-acetaminophen 5-325 mg tablet 1 tab PO Q6H PRN (Reason: pain) Qty: 14 0RF Referrals: Jen Albarran FNP-BC [Primary Care Provider] - Stand Alone Forms: Patient Portal/API/Survey
[2024-11-11] MEDS: HYDROMORPHONE 1 MG INJ IV ×3 (19:57→22:23)
[2024-11-11] MEDS: SODIUM CHLORIDE 0.9% 1,000 ML 1000 ML IV (19:58)
[2024-11-11 20:04] LABS: Hematocrit 28.3 % (41-53); Hemoglobin 9.5 g/dL (13.5-17.5); Mean Corpuscular HGB Conc 33.5 % (30-36); Mean Corpuscular Hemoglobin 24.9 PG (26-34); Mean Corpuscular Volume 74.2 fL (80-100); Platelet Count 252 X10^3/uL (150-400); Red Blood Cell Count 3.82 X10^6/uL (4.5-5.9); Red Cell Distribution Width 17.7 % (11.6-14.8); White Blood Cell Count 11.9 X10^3/uL (4.5-11.0)
[2024-11-11 20:06] LABS: Add Manual Diff / Slide Review YES
[2024-11-11 20:12] LABS: Reticulocyte Count, Percent 6.1 % (0.9-2.6)
[2024-11-11 20:16] LABS: Neutrophils Absolute Manual 5474 /uL (3000-5900); Nucleated Red Blood Cells 1 #/Diff; Total Cells Counted 100
[2024-11-11 20:17] LABS: Anisocytosis 2+; BUN Creatinine Ratio 13.6 (6-22); Blood Urea Nitrogen 9 mg/dL (9-20); Calcium 8.7 mg/dL (8.4-10.2); Carbon Dioxide 23 mmol/L (22-32); Chloride 106 mmol/L (98-107); Estimated Glomerular Filt Rate > 60 mL/min (>60); Glucose 104 mg/dL (70-100); HEMOLYSIS 40 (0-50); Polychromasia 1+; Potassium 4.3 mmol/L (3.4-5.1); Schistocytes 2+; Sickle Cells 2+; Sodium 139 mmol/L (137-145)
[2024-11-11 20:48] VITALS: PULSE 79; O2SAT 98
[2024-11-11 22:10] VITALS: BP 109/64; PULSE 72; RESP 14; O2SAT 100
== END 2024-11-11 22:22 | disposition home or self-care (01) ==
PROVIDERS: Emergency Provider Student in an Organized Health Care Education/Training Program; PCP Nurse Practitioner Family
DX: D57.00 Hb-SS disease with crisis, unspecified (principal); Z86.73 Personal history of transient ischemic attack (TIA), and cerebral infarction without residual deficits
CPT/HCPCS: 36415; 80048; 85007; 85025; 85045; 96361; 96374; 96376; 99284; J1171

== ENCOUNTER 2024-11-12 08:42 | Emergency (ER) | payer OTHER, SELFPAY ==
[2024-11-12 08:52] VITALS: BP 102/58; PULSE 80; RESP 18; TEMP 36.9; O2SAT 98; BMI 19.3
--- NOTE | 2024-11-12 09:06 | ED_ITS ---
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 He was seen last night in our ER given fluids lab work arm along with Dilaudid 1 mg x 2 and no narcotics are sent home without narcotics. Other than what is stated 14 point review of system is negative MD complaint: other Related Data Previous Rx's Medication Instructions Recorded hydromorphone 2 mg tablet 2 mg PO Q6H PRN pain #14 tabs 09/30/24 (Dilaudid) duloxetine 60 mg capsule,delayed 60 mg PO DAILY #60 caps 10/02/24 release hydroxyurea (sickle cell) 200 mg 200 mg PO DAILY #90 caps 10/02/24 capsule ondansetron 4 mg disintegrating 4 mg PO Q8H PRN nausea and 10/02/24 tablet vomiting #20 tabs penicillin V potassium 250 mg 250 mg PO BID sickle cell #90 tabs 10/02/24 tablet hydrocodone 5 mg-acetaminophen 325 1 tab PO Q6H PRN pain #14 tabs 10/19/24 mg tablet oxycodone-acetaminophen 5 mg-325 1 tab PO Q4-6H PRN pain #30 tabs 10/23/24 mg tablet (Percocet) cholecalciferol (vitamin D3) 1,250 1,250 mcg PO QWEEK 6 weeks #6 caps 10/25/24 mcg (50,000 unit) capsule cholecalciferol (vitamin D3) 10 20 mcg (2 x 10 mcg (400 unit)) PO 10/25/24 mcg (400 unit) capsule DAILY #180 caps hydrocodone 5 mg-acetaminophen 325 1 tab PO Q6H PRN pain #14 tabs 11/02/24 mg tablet hydrocodone 5 mg-acetaminophen 325 1 tab PO Q6H PRN pain #14 tabs 11/02/24 mg tablet tramadol 50 mg tablet 50 mg PO Q8H PRN pain #20 tabs 11/12/24 Allergies Allergy/AdvReac Type Severity Reaction Status Date / Time No Known Drug Allergies Allergy Verified 10/23/24 07:54 Review of Systems Review of Systems ROS Unobtainable: All systems reviewed & are unremarkable except as noted in HPI and below Patient History Medical History (Updated 11/12/24 @ 09:37 by Kwan Jimenes DO) Vitamin D deficiency PTSD (post-traumatic stress disorder) Depression Anxiety Seizure Anemia Avascular necrosis of bone Contracture, left elbow Contracture, left hand CVA (cerebral vascular accident) Sickle cell anemia Surgical History History of shoulder surgery 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 Family History Father Cancer Sickle cell trait Lupus Mother Sickle cell trait Brother Sickle cell trait Social History household members: significant other alcohol intake: never alcohol intake frequency: holidays/special occasions only Exam Narrative Exam Narrative: GENERAL: [24] year old patient appears stated age. Well-developed patient, in mild distress. HEAD: Atraumatic. Normocephalic. EYES: Pupils equal round and reactive. Extraocular motions intact. No scleral icterus. No injection or drainage. NECK: Trachea midline. Non tender CARDIOVASCULAR: Regular rate and rhythm without murmurs, gallops, or rubs. RESPIRATORY: Clear to auscultation. Breath sounds equal bilaterally. No wheezes, rales, or rhonchi. GASTROINTESTINAL: Abdomen soft, non-tender, nondistended. EXTREMITIES: No edema or joint tenderness. LUE hyperflexed at elbow and wrist baseline BACK: Nontender without deformity or crepitance. No flank tenderness. NEURO: AOx3. SKIN: No rash or erythema of visible areas Initial Vital Signs Initial Vital Signs: Vital Signs Temperature 98.4 F 11/12/24 08:52 Pulse Rate 80 11/12/24 08:52 Respiratory Rate 18 11/12/24 08:52 Blood Pressure 102/58 L 11/12/24 08:52 Pulse Oximetry 98 11/12/24 08:52 Oxygen Delivery Method Room Air 11/12/24 08:52 Course Vital Signs Vital signs: Vital Signs - 8 hr 11/12/24 08:52 Temperature 98.4 F Pulse Rate 80 Respiratory Rate 18 Blood Pressure 102/58 L Pulse Oximetry 98 Oxygen Delivery Method Room Air all lab work vital Signs triage note medication list previous ER visits including last night's visit to the ER have all been reviewed. All imaging studies from previous visits also reviewed. Patient was given 2 of Dilaudid IM here and will be discharged on a few pills of tramadol and follow up with his PCP. Differential diagnosis includes sickle cell crisis, chronic pain, drug use/abuse. Return with new or worsening symptoms Discharge Plan Departure Patient Disposition: Home Clinical Impression: Sickle cell disease with crisis Activity Restrictions/Additional Instructions: return with new or worsening symptoms. 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 And follow-up with your PCP within 1 week Prescriptions: New tramadol 50 mg tablet 50 mg PO Q8H PRN (Reason: pain) Qty: 20 0RF No Action cholecalciferol (vitamin D3) 1,250 mcg (50,000 unit) capsule 1,250 mcg PO QWEEK 42 Days Qty: 6 0RF Rx Instructions: Take 1 capsule weekly for 6 weeks then switch to 800 IU daily rx. cholecalciferol (vitamin D3) 10 mcg (400 unit) capsule 20 mcg PO DAILY Qty: 180 0RF Rx Instructions: Start two capsules daily after 6 weeks of 1250mcg weekly dosing. hydroxyurea (sickle cell) 200 mg capsule 200 mg PO DAILY Qty: 90 0RF duloxetine 60 mg capsule,delayed release(DR/EC) 60 mg PO DAILY Qty: 60 0RF Rx Instructions: Start with 30mg tablets on day 8 start 60mg penicillin V potassium 250 mg tablet 250 mg PO BID Qty: 90 0RF oxycodone-acetaminophen [Percocet] 5-325 mg tablet 1 tab PO Q4-6H PRN (Reason: pain) Qty: 30 0RF ondansetron 4 mg tablet,disintegrating 4 mg PO Q8H PRN (Reason: nausea and vomiting) Qty: 20 0RF hydrocodone-acetaminophen 5-325 mg tablet 1 tab PO Q6H PRN (Reason: pain) Qty: 14 0RF hydrocodone-acetaminophen 5-325 mg tablet 1 tab PO Q6H PRN (Reason: pain) Qty: 14 0RF hydromorphone [Dilaudid] 2 mg tablet 2 mg PO Q6H PRN (Reason: pain) Qty: 14 0RF hydrocodone-acetaminophen 5-325 mg tablet 1 tab PO Q6H PRN (Reason: pain) Qty: 14 0RF Referrals: eJn Albarran FNP-BC [Primary Care Provider] - Stand Alone Forms: Patient Portal/API/Survey
[2024-11-12] MEDS: HYDROMORPHONE 1 MG INJ 2 MG IM (09:30)
[2024-11-12 10:02] VITALS: BP 111/64; PULSE 82; RESP 20; O2SAT 100
== END 2024-11-12 09:54 | disposition home or self-care (01) ==
PROVIDERS: Emergency Provider Family Medicine; PCP Nurse Practitioner Family
DX: D57.00 Hb-SS disease with crisis, unspecified (principal)
CPT/HCPCS: 96372; 99283; J1171

== ENCOUNTER 2024-11-14 06:52 | Emergency (ER) | payer OTHER, SELFPAY ==
[2024-11-14] VITALS (7 sets, daily range): BP systolic 97–110; BP diastolic 56–59; PULSE 68–74; RESP 18; TEMP 36.6; O2SAT 96–99; BMI 19.3
--- NOTE | 2024-11-14 07:16 | ED.RECABL ---
HPI - Recheck/Abnormal Lab/Rx General Chief Complaint: Recheck/Abnormal Lab/Rx Stated Complaint: Still not feeling good Time Seen by Provider: 11/14/24 07:00 Source: patient Mode of arrival: Ambulatory History of Present Illness HPI narrative: Patient is a 24-year-old history of sickle cell, frequent ED visits history of prior splenectomy prior childhood stroke with residual left-sided deficits presenting today with she was increasing pain over last few days. He has had 2 ED visits this week already. Last visit was November 12 he got a shot of Dilaudid and was released. He denies any headache chest pain shortness of breath abdominal pain nausea or vomiting. No fever or chills. Generally feels like he needs some fluids and pain medication. He was working with his primary care provider to get established with a medical collections specialist. Related Data Previous Rx's Medication Instructions Recorded hydromorphone 2 mg tablet 2 mg PO Q6H PRN pain #14 tabs 09/30/24 (Dilaudid) duloxetine 60 mg capsule,delayed 60 mg PO DAILY #60 caps 10/02/24 release hydroxyurea (sickle cell) 200 mg 200 mg PO DAILY #90 caps 10/02/24 capsule ondansetron 4 mg disintegrating 4 mg PO Q8H PRN nausea and 10/02/24 tablet vomiting #20 tabs penicillin V potassium 250 mg 250 mg PO BID sickle cell #90 tabs 10/02/24 tablet hydrocodone 5 mg-acetaminophen 325 1 tab PO Q6H PRN pain #14 tabs 10/19/25 mg tablet oxycodone-acetaminophen 5 mg-325 1 tab PO Q4-6H PRN pain #30 tabs 10/23/25 mg tablet (Percocet) cholecalciferol (vitamin D3) 1,250 1,250 mcg PO QWEEK 6 weeks #6 caps 10/25/24 mcg (50,000 unit) capsule cholecalciferol (vitamin D3) 10 20 mcg (2 x 10 mcg (400 unit)) PO 10/25/24 mcg (400 unit) capsule DAILY #180 caps hydrocodone 5 mg-acetaminophen 325 1 tab PO Q6H PRN pain #14 tabs 11/02/25 mg tablet hydrocodone 5 mg-acetaminophen 325 1 tab PO Q6H PRN pain #14 tabs 11/02/25 mg tablet tramadol 50 mg tablet 50 mg PO Q8H PRN pain #20 tabs 11/12/24 Allergies Allergy/AdvReac Type Severity Reaction Status Date / Time No Known Drug Allergies Allergy Verified 10/23/24 07:54 Patient History Medical History Vitamin D deficiency PTSD (post-traumatic stress disorder) Depression Anxiety Seizure Anemia Avascular necrosis of bone Contracture, left elbow Contracture, left hand CVA (cerebral vascular accident) Sickle cell anemia Surgical History History of shoulder surgery 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 Family History Father Cancer Sickle cell trait Lupus Mother Sickle cell trait Brother Sickle cell trait Social History household members: significant other Smoking Status: Never smoker alcohol intake: never Smoking Status: Never smoker alcohol intake frequency: holidays/special occasions only Exam Initial Vital Signs Initial Vital Signs: Vital Signs Temperature 97.8 F 11/14/24 06:58 GENERAL: Well-appearing, well-nourished and in no acute distress. HEENT: Head atraumatic,EOMI, pupils reactive, face symmetric, moist mucous membranes CARDIOVASCULAR: Regular rate and rhythm without murmurs, rubs or gallops. RESPIRATORY: Breath sounds equal bilaterally, no wheezes rales or rhonchi. ABDOMEN: Soft, nontender. Normoactive bowel sounds all 4 quadrants. No guarding or rebound. EXTREMITIES: Normal range of motion, no clubbing or edema. Neurovascularly intact NEUROLOGICAL: Alert and oriented x4.Normal gait and speech. Cranial nerves II through XII grossly intact. Residual left-sided deficits left arm atrophy and contracture SKIN: Warm, dry, no laceration, no petechiae, no rashes or lesions. Course Orders Ordered: ED Orders 11/14/24 07:20 BMP [Basic Metabolic Panel] Stat CBC Auto Diff [Complete Blood Count AUTO DIFF] Stat RETIC [Reticulocyte Count, Percent] Stat Discontinued Medications Hydromorphone HCl (Hydromorphone 1 Mg Inj) 1 mg IV NOW ONE Stop: 11/14/24 07:08 Last Admin: 11/14/24 07:31 Dose: 1 mg Documented By: MOLLY Hydromorphone HCl (Hydromorphone 1 Mg Inj) 1 mg IV NOW ONE Stop: 11/14/24 08:09 Last Admin: 11/14/24 09:09 Dose: 1 mg Documented By: MOLLY(2) Sodium Chloride (Normal Saline 0.9%) 1,000 mls @ 1,000 mls/hr IV BOLUS ONE Stop: 11/14/24 08:06 Last Infusion: 11/14/24 09:06 Dose: Infused Documented By: MOLLY(2) Admin: 11/14/24 07:32 Dose: 1,000 mls/hr Documented By: MOLLY Vital Signs Vital signs: Vital Signs - 8 hr 11/14/24 06:58 11/14/24 07:01 11/14/24 07:30 Temperature 97.8 F Pulse Rate 68 70 Respiratory Rate 18 18 Blood Pressure 101/57 L 97/58 L Pulse Oximetry 99 98 Oxygen Delivery Method Room Air Room Air 11/14/24 08:32 11/14/24 09:00 11/14/24 09:00 Temperature Pulse Rate 68 68 Respiratory Rate Blood Pressure 107/56 L Pulse Oximetry 98 98 Oxygen Delivery Method 11/14/24 09:30 11/14/24 09:30 11/14/24 09:35 Temperature Pulse Rate 74 69 Respiratory Rate Blood Pressure 108/56 L Pulse Oximetry 96 96 Oxygen Delivery Method 11/14/24 09:35 Temperature Pulse Rate Respiratory Rate Blood Pressure 110/59 L Pulse Oximetry Oxygen Delivery Method MDM - Recheck/Abnormal Lab/Rx Lab Data 11/14/24 07:20 11/14/24 07:20 Labs: Lab Results 11/14/24 Range/Units 07:20 WBC 10.7 (4.5-11.0) X10^3/uL RBC 3.58 L (4.5-5.9) X10^6/uL Hgb 9.4 L (13.5-17.5) g/dL Hct 26.6 L (41-53) % MCV 74.3 L (80-100) fL MCH 26.2 (26-34) PG MCHC 35.3 (30-36) % RDW 18.8 H (11.6-14.8) % Plt Count 251 (150-400) X10^3/uL Neut % (Auto) 44.8 L (50-75) % Lymph % (Auto) 47.5 H (25-40) % Wilkinson % (Auto) 5.7 (3-14) % Eos % (Auto) 1.1 L (2-4) % Baso % (Auto) 0.9 (0-2) % Neut # (Auto) 4800 (7945-5867) /uL Lymph # (Auto) 5100 H (9152-9411) /uL Wilkinson # (Auto) 600 (0-900) /uL Eos # (Auto) 100 (0-450) /uL Baso # (Auto) 100 (0-100) /uL Percent Retic 8.9 H D (0.9-2.6) % Sodium 139 (137-145) mmol/L Potassium 4.3 (3.4-5.1) mmol/L Chloride 105 (98-107) mmol/L Carbon Dioxide 23 (22-32) mmol/L BUN 7 L (9-20) mg/dL Creatinine 0.58 L (0.66-1.25) mg/dL Estimated GFR > 60 (>60) mL/min BUN/Creatinine Ratio 12.1 (6-22) Glucose 88 (70-100) mg/dL Calcium 9.0 (8.4-10.2) mg/dL MDM Narrative Medical decision making narrative: Patient 24-year-old male history of sickle cell crisis frequent ED visits. He was feeling better after earlier fluids and 2 doses of Dilaudid. Blood work has been reviewed No anemia or leukocytosis reticulocyte count is 8.9 previously 6.1 on the 11 of November Electrolytes within normal limits He was not having any sort of chest pain or hypoxia. Discussion with him about admission versus going home with increasing reticulocyte count. At this time he feels like he is ready to go home. Discharge Plan Departure Patient Disposition: Home Clinical Impression: Sickle cell disease with crisis Instructions: DI for Sickle Cell Anemia, Pain Crisis -- Adult Activity Restrictions/Additional Instructions: *You have been diagnosed with sickle cell crisis *What to do: At this time stay hydrated. *Continue to take medications as directed *Follow up with your primary care provider in 2-3 days or call [phone] *Return to ER if you should have increasing pain or any new, worsening or concerning symptoms Prescriptions: No Action cholecalciferol (vitamin D3) 1,250 mcg (50,000 unit) capsule 1,250 mcg PO QWEEK 42 Days Qty: 6 0RF Rx Instructions: Take 1 capsule weekly for 6 weeks then switch to 800 IU daily rx. cholecalciferol (vitamin D3) 10 mcg (400 unit) capsule 20 mcg PO DAILY Qty: 180 0RF Rx Instructions: Start two capsules daily after 6 weeks of 1250mcg weekly dosing. hydroxyurea (sickle cell) 200 mg capsule 200 mg PO DAILY Qty: 90 0RF duloxetine 60 mg capsule,delayed release(DR/EC) 60 mg PO DAILY Qty: 60 0RF Rx Instructions: Start with 30mg tablets on day 8 start 60mg penicillin V potassium 250 mg tablet 250 mg PO BID Qty: 90 0RF oxycodone-acetaminophen [Percocet] 5-325 mg tablet 1 tab PO Q4-6H PRN (Reason: pain) Qty: 30 0RF ondansetron 4 mg tablet,disintegrating 4 mg PO Q8H PRN (Reason: nausea and vomiting) Qty: 20 0RF hydrocodone-acetaminophen 5-325 mg tablet 1 tab PO Q6H PRN (Reason: pain) Qty: 14 0RF hydrocodone-acetaminophen 5-325 mg tablet 1 tab PO Q6H PRN (Reason: pain) Qty: 14 0RF tramadol 50 mg tablet 50 mg PO Q8H PRN (Reason: pain) Qty: 20 0RF hydromorphone [Dilaudid] 2 mg tablet 2 mg PO Q6H PRN (Reason: pain) Qty: 14 0RF hydrocodone-acetaminophen 5-325 mg tablet 1 tab PO Q6H PRN (Reason: pain) Qty: 14 0RF Referrals: Jen Albarran FNP-BC [Primary Care Provider] - Stand Alone Forms: Patient Portal/API/Survey
[2024-11-14] MEDS: HYDROMORPHONE 1 MG INJ IV ×2 (07:31→09:09)
[2024-11-14] MEDS: SODIUM CHLORIDE 0.9% 1,000 ML 1000 ML IV (07:32)
[2024-11-14 07:56] LABS: Add Manual Diff / Slide Review NO; Basophils Absolute Auto 100 /uL (0-100); Basophils Percent Auto 0.9 % (0-2); Eosinophils Absolute Auto 100 /uL (0-450); Eosinophils Percent Auto 1.1 % (2-4); Hematocrit 26.6 % (41-53); Hemoglobin 9.4 g/dL (13.5-17.5); Lymphocytes Absolute Auto 5100 /uL (1100-4500); Lymphocytes Percent Auto 47.5 % (25-40); Mean Corpuscular HGB Conc 35.3 % (30-36); Mean Corpuscular Hemoglobin 26.2 PG (26-34); Mean Corpuscular Volume 74.3 fL (80-100); Monocytes Absolute Auto 600 /uL (0-900); Monocytes Percent Auto 5.7 % (3-14); Neutrophils Absolute Auto 4800 /uL (1500-7000); Neutrophils Percent Auto 44.8 % (50-75); Platelet Count 251 X10^3/uL (150-400); Red Blood Cell Count 3.58 X10^6/uL (4.5-5.9); Red Cell Distribution Width 18.8 % (11.6-14.8); White Blood Cell Count 10.7 X10^3/uL (4.5-11.0)
[2024-11-14 08:04] LABS: Reticulocyte Count, Percent 8.9 % (0.9-2.6)
[2024-11-14 08:08] LABS: BUN Creatinine Ratio 12.1 (6-22); Blood Urea Nitrogen 7 mg/dL (9-20); Carbon Dioxide 23 mmol/L (22-32); Chloride 105 mmol/L (98-107); Estimated Glomerular Filt Rate > 60 mL/min (>60); Glucose 88 mg/dL (70-100); HEMOLYSIS < 15 (0-50); Potassium 4.3 mmol/L (3.4-5.1); Sodium 139 mmol/L (137-145)
== END 2024-11-14 09:38 | disposition home or self-care (01) ==
PROVIDERS: Emergency Provider Emergency Medicine; PCP Nurse Practitioner Family
DX: D57.00 Hb-SS disease with crisis, unspecified (principal); Z86.73 Personal history of transient ischemic attack (TIA), and cerebral infarction without residual deficits
CPT/HCPCS: 36415; 80048; 85025; 85045; 96361; 96374; 96376; 99284; J1171

== ENCOUNTER 2024-11-16 14:14 | Emergency (ER) | payer OTHER, SELFPAY ==
[2024-11-16] VITALS (16 sets, daily range): BP systolic 95–116; BP diastolic 57–76; PULSE 65–91; RESP 16; TEMP 36.9; O2SAT 96–100; BMI 19.3
--- NOTE | 2024-11-16 14:53 | PC.NURSE ---
Call x1 for triage pt in bathroom
--- NOTE | 2024-11-16 16:21 | ED.BACK ---
HPI - Back Pain/Injury General Chief Complaint: Back Pain/Injury Stated Complaint: Still in pain Time Seen by Provider: 11/16/24 16:18 Source: patient History of Present Illness HPI Narrative: 24-year-old gentleman history of sickle cell with history of splenectomy and stroke at the age of 9 years old leaving him with permanent residual left-sided weakness including left upper extremity hemiparesis that is hyper flexed at baseline - seen recently on multiple occasions here today again with bilateral leg pain and back pain today. Other than what is stated 14 point review of system is negative Related Data Previous Rx's Medication Instructions Recorded hydromorphone 2 mg tablet 2 mg PO Q6H PRN pain #14 tabs 09/30/24 (Dilaudid) duloxetine 60 mg capsule,delayed 60 mg PO DAILY #60 caps 10/02/24 release hydroxyurea (sickle cell) 200 mg 200 mg PO DAILY #90 caps 10/02/24 capsule ondansetron 4 mg disintegrating 4 mg PO Q8H PRN nausea and 10/02/24 tablet vomiting #20 tabs penicillin V potassium 250 mg 250 mg PO BID sickle cell #90 tabs 10/02/24 tablet hydrocodone 5 mg-acetaminophen 325 1 tab PO Q6H PRN pain #14 tabs 10/19/24 mg tablet oxycodone-acetaminophen 5 mg-325 1 tab PO Q4-6H PRN pain #30 tabs 10/23/24 mg tablet (Percocet) cholecalciferol (vitamin D3) 1,250 1,250 mcg PO QWEEK 6 weeks #6 caps 10/25/24 mcg (50,000 unit) capsule cholecalciferol (vitamin D3) 10 20 mcg (2 x 10 mcg (400 unit)) PO 10/25/24 mcg (400 unit) capsule DAILY #180 caps hydrocodone 5 mg-acetaminophen 325 1 tab PO Q6H PRN pain #14 tabs 11/02/24 mg tablet hydrocodone 5 mg-acetaminophen 325 1 tab PO Q6H PRN pain #14 tabs 11/02/24 mg tablet tramadol 50 mg tablet 50 mg PO Q8H PRN pain #20 tabs 11/12/24 Allergies Allergy/AdvReac Type Severity Reaction Status Date / Time No Known Drug Allergies Allergy Verified 10/23/24 07:54 Review of Systems Review of Systems ROS Unobtainable: All systems reviewed & are unremarkable except as noted in HPI and below Patient History Medical History Vitamin D deficiency PTSD (post-traumatic stress disorder) Depression Anxiety Seizure Anemia Avascular necrosis of bone Contracture, left elbow Contracture, left hand CVA (cerebral vascular accident) Sickle cell anemia Surgical History History of shoulder surgery 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 Family History Father Cancer Sickle cell trait Lupus Mother Sickle cell trait Brother Sickle cell trait Social History household members: significant other Smoking Status: Never smoker alcohol intake: never Smoking Status: Never smoker alcohol intake frequency: holidays/special occasions only Exam Narrative Exam Narrative: GENERAL: [24] year old patient appears stated age. Well-developed patient, in mild distress. HEAD: Atraumatic. Normocephalic. EYES: Pupils equal round and reactive. Extraocular motions intact. No scleral icterus. No injection or drainage. ENT: Nose without bleeding, purulent drainage. Throat without erythema, tonsillar hypertrophy or exudate. Airway patent. NECK: Trachea midline. Non tender CARDIOVASCULAR: Regular rate and rhythm without murmurs, gallops, or rubs. RESPIRATORY: Clear to auscultation. Breath sounds equal bilaterally. No wheezes, rales, or rhonchi. GASTROINTESTINAL: Abdomen soft, non-tender, nondistended. EXTREMITIES: No edema or joint tenderness. LUE hyperflexed at L wrist chronic baseline BACK: Nontender without deformity or crepitance. No flank tenderness. NEURO: AOx3. GCS 15 SKIN: No rash or erythema of visible areas Initial Vital Signs Initial Vital Signs: Vital Signs Temperature 98.5 F 11/16/24 14:58 Pulse Rate 89 11/16/24 14:58 Respiratory Rate 16 11/16/24 14:58 Blood Pressure 105/57 L 11/16/24 14:58 Pulse Oximetry 98 11/16/24 14:58 Oxygen Delivery Method Room Air 11/16/24 14:58 Course Vital Signs Vital signs: Vital Signs - 8 hr 11/16/24 14:58 11/16/24 15:13 11/16/24 15:14 Temperature 98.5 F Pulse Rate 89 91 H Respiratory Rate 16 Blood Pressure 105/57 L 95/57 L Pulse Oximetry 98 98 Oxygen Delivery Method Room Air 11/16/24 15:14 11/16/24 15:30 11/16/24 15:30 Temperature Pulse Rate 91 H 85 Respiratory Rate 16 Blood Pressure 99/60 Pulse Oximetry 96 99 Oxygen Delivery Method MDM - Back Pain/Injury MDM Narrative Medical decision making narrative: All lab work vital signs nurse triage note medication list and previous ER visits all reviewed. Patient was given normal saline 1 L bolus 2 mg of Dilaudid here. On reexamination patient's pain for the back and the lower legs have since resolved and patient will like to go home. Differential diagnosis includes sickle cell crisis, chronic pain management, and dehydration. Return with new or worsening symptoms Discharge Plan Departure Patient Disposition: Home Clinical Impression: Sickle cell anemia with crisis Instructions: DI for Sickle Cell Anemia, Pain Crisis -- Adult Activity Restrictions/Additional Instructions: Return with new or worsening symptoms. Follow up PCP/hematology next week. Prescriptions: No Action cholecalciferol (vitamin D3) 1,250 mcg (50,000 unit) capsule 1,250 mcg PO QWEEK 42 Days Qty: 6 0RF Rx Instructions: Take 1 capsule weekly for 6 weeks then switch to 800 IU daily rx. cholecalciferol (vitamin D3) 10 mcg (400 unit) capsule 20 mcg PO DAILY Qty: 180 0RF Rx Instructions: Start two capsules daily after 6 weeks of 1250mcg weekly dosing. hydroxyurea (sickle cell) 200 mg capsule 200 mg PO DAILY Qty: 90 0RF duloxetine 60 mg capsule,delayed release(DR/EC) 60 mg PO DAILY Qty: 60 0RF Rx Instructions: Start with 30mg tablets on day 8 start 60mg penicillin V potassium 250 mg tablet 250 mg PO BID Qty: 90 0RF oxycodone-acetaminophen [Percocet] 5-325 mg tablet 1 tab PO Q4-6H PRN (Reason: pain) Qty: 30 0RF ondansetron 4 mg tablet,disintegrating 4 mg PO Q8H PRN (Reason: nausea and vomiting) Qty: 20 0RF hydrocodone-acetaminophen 5-325 mg tablet 1 tab PO Q6H PRN (Reason: pain) Qty: 14 0RF hydrocodone-acetaminophen 5-325 mg tablet 1 tab PO Q6H PRN (Reason: pain) Qty: 14 0RF tramadol 50 mg tablet 50 mg PO Q8H PRN (Reason: pain) Qty: 20 0RF hydromorphone [Dilaudid] 2 mg tablet 2 mg PO Q6H PRN (Reason: pain) Qty: 14 0RF hydrocodone-acetaminophen 5-325 mg tablet 1 tab PO Q6H PRN (Reason: pain) Qty: 14 0RF Referrals: Jen Albarran FNP-BC [Primary Care Provider] - Stand Alone Forms: Patient Portal/API/Survey
[2024-11-16] MEDS: SODIUM CHLORIDE 0.9% 500 ML 1000 ML IV (16:32)
[2024-11-16] MEDS: HYDROMORPHONE 1 MG INJ 2 MG IV (16:33)
[2024-11-16 16:49] LABS: Alanine Aminotransferase 37 IU/L (<50); Albumin 4.7 g/dL (3.5-5.0); Albumin Globulin Ratio 1.2 (1.0-2.8); Alkaline Phosphatase 70 U/L (38-126); Aspartate Aminotransferase 61 IU/L (17-59); BUN Creatinine Ratio 7.4 (6-22); Bilirubin Total 2.4 mg/dL (0.2-1.3); Blood Urea Nitrogen 5 mg/dL (9-20); Calcium 8.8 mg/dL (8.4-10.2); Carbon Dioxide 23 mmol/L (22-32); Chloride 108 mmol/L (98-107); Estimated Glomerular Filt Rate > 60 mL/min (>60); Globulin 3.9 g/dL (1.7-4.1); Glucose 90 mg/dL (70-100); HEMOLYSIS < 15 (0-50); Potassium 3.8 mmol/L (3.4-5.1); Sodium 140 mmol/L (137-145); Total Protein 8.6 g/dL (6.3-8.2)
[2024-11-16 17:00] LABS: Basophils Absolute Auto 100 /uL (0-100); Basophils Percent Auto 1.5 % (0-2); Eosinophils Absolute Auto 200 /uL (0-450); Eosinophils Percent Auto 1.8 % (2-4); Hematocrit 25.9 % (41-53); Hemoglobin 8.8 g/dL (13.5-17.5); Lymphocytes Absolute Auto 2200 /uL (1100-4500); Lymphocytes Percent Auto 22.3 % (25-40); Mean Corpuscular HGB Conc 33.9 % (30-36); Mean Corpuscular Hemoglobin 25.1 PG (26-34); Mean Corpuscular Volume 74.1 fL (80-100); Monocytes Absolute Auto 1000 /uL (0-900); Monocytes Percent Auto 9.8 % (3-14); Neutrophils Absolute Auto 6500 /uL (1500-7000); Neutrophils Percent Auto 64.6 % (50-75); Platelet Count 253 X10^3/uL (150-400); Red Cell Distribution Width 19.3 % (11.6-14.8)
[2024-11-16 17:01] LABS: Add Manual Diff / Slide Review SLIDE REVIEW
[2024-11-16 17:43] LABS: Sickle Cells 1+
[2024-11-16 17:44] LABS: Anisocytosis 2+
[2024-11-16 17:47] LABS: Schistocytes 1+
[2024-11-16 17:48] LABS: Target Cells 1+
== END 2024-11-16 18:46 | disposition home or self-care (01) ==
PROVIDERS: Emergency Provider Family Medicine; PCP Nurse Practitioner Family
DX: D57.00 Hb-SS disease with crisis, unspecified (principal); I69.354 Hemiplegia and hemiparesis following cerebral infarction affecting left non-dominant side
CPT/HCPCS: 36415; 80053; 85025; 96361; 96374; 99284; J1171

== ENCOUNTER 2024-11-18 06:06 | Inpatient (IN) | payer OTHER, SELFPAY ==
[2024-11-18] VITALS (15 sets, daily range): BP systolic 108–131; BP diastolic 59–82; PULSE 61–96; RESP 14–24; TEMP 35.7–37.1; O2SAT 94–100; BMI 18.6
--- NOTE | 2024-11-18 06:19 | ED_ITS ---
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 He denies abdominal pain, nausea, vomiting, shortness of breath, cough, fever, chills or urinary complaints. Other than what is stated 14 point review of system is negative Related Data Home Medications Medication Instructions Recorded Confirmed albuterol sulfate 90 mcg/actuation 2 puff inhalation Q6H PRN wheezing 11/18/24 11/18/24 aerosol inhaler naloxone 4 mg/actuation nasal spray 1 spray intranasal PRN PRN Opioid 11/18/24 11/18/24 Overdose Previous Rx's Medication Instructions Recorded hydromorphone 2 mg tablet 2 mg PO Q6H PRN pain #14 tabs 09/30/24 (Dilaudid) duloxetine 60 mg capsule,delayed 60 mg PO DAILY #60 caps 10/02/24 release hydroxyurea (sickle cell) 200 mg 200 mg PO DAILY #90 caps 10/02/24 capsule ondansetron 4 mg disintegrating 4 mg PO Q8H PRN nausea and 10/02/24 tablet vomiting #20 tabs penicillin V potassium 250 mg 250 mg PO BID sickle cell #90 tabs 10/02/24 tablet oxycodone-acetaminophen 5 mg-325 1 tab PO Q4-6H PRN pain #30 tabs 10/23/25 mg tablet (Percocet) cholecalciferol (vitamin D3) 1,250 1,250 mcg PO QWEEK 6 weeks #6 caps 10/25/24 mcg (50,000 unit) capsule cholecalciferol (vitamin D3) 10 20 mcg (2 x 10 mcg (400 unit)) PO 10/25/24 mcg (400 unit) capsule DAILY #180 caps hydrocodone 5 mg-acetaminophen 325 1 tab PO Q6H PRN pain #14 tabs 11/02/24 mg tablet tramadol 50 mg tablet 50 mg PO Q8H PRN pain #20 tabs 11/12/24 Allergies Allergy/AdvReac Type Severity Reaction Status Date / Time No Known Drug Allergies Allergy Verified 10/23/24 07:54 Review of Systems <Kwan Jimenes DO - Last Filed: 11/18/24 17:59> Review of Systems ROS Unobtainable: All systems reviewed & are unremarkable except as noted in HPI and below Patient History <Kwan Jimenes DO - Last Filed: 11/18/24 17:59> Medical History Vitamin D deficiency PTSD (post-traumatic stress disorder) Depression Anxiety Seizure Anemia Avascular necrosis of bone Contracture, left elbow Contracture, left hand CVA (cerebral vascular accident) Sickle cell anemia Surgical History History of shoulder surgery 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 Family History Father Cancer Sickle cell trait Lupus Mother Sickle cell trait Brother Sickle cell trait Social History household members: significant other alcohol intake: never alcohol intake frequency: holidays/special occasions only Exam <Kwan Jimenes DO - Last Filed: 11/18/24 17:59> Narrative Exam Narrative: GENERAL: [24] year old patient appears stated age. Well-developed patient, in mild distress. HEAD: Atraumatic. Normocephalic. EYES: Pupils equal round and reactive. Extraocular motions intact. No scleral icterus. No injection or drainage. ENT: Nose without bleeding, purulent drainage. Throat without erythema, tonsillar hypertrophy or exudate. Airway patent. NECK: Trachea midline. Non tender CARDIOVASCULAR: Regular rate and rhythm without murmurs, gallops, or rubs. RESPIRATORY: Clear to auscultation. Breath sounds equal bilaterally. No wheezes, rales, or rhonchi. GASTROINTESTINAL: Abdomen soft, non-tender, nondistended. EXTREMITIES: No edema or joint tenderness. LUE Flexion contracture BACK: Nontender without deformity or crepitance. No flank tenderness. NEURO: AOx3. Nonfocal neuro exam GCS 15 SKIN: No rash or erythema of visible areas Initial Vital Signs Initial Vital Signs: Vital Signs Temperature 98.8 F 11/18/24 06:09 Pulse Rate 96 H 11/18/24 06:09 Respiratory Rate 24 11/18/24 06:09 Blood Pressure 131/72 11/18/24 06:09 Pulse Oximetry 98 11/18/24 06:09 Oxygen Delivery Method Room Air 11/18/24 06:09 <Jeovanny Yost MD - Last Filed: 11/18/24 20:55> Initial Vital Signs Initial Vital Signs: Vital Signs Temperature 98.8 F 11/18/24 06:09 Pulse Rate 96 H 11/18/24 06:09 Respiratory Rate 24 11/18/24 06:09 Blood Pressure 131/72 11/18/24 06:09 Pulse Oximetry 98 11/18/24 06:09 Oxygen Delivery Method Room Air 11/18/24 06:09 Course <Kwan Jimenes DO - Last Filed: 11/18/24 17:59> Orders Ordered: Acetaminophen (Acetaminophen 325 Mg Tablet) 650 mg PO Q6H PRN PRN Reason: Fever/Mild Pain (1-3) Duloxetine HCl (Duloxetine 30 Mg Capsule) 60 mg PO DAILY [facility] Last Admin: 11/18/24 13:17 Dose: 60 mg Documented By: LDV Enoxaparin Sodium (Enoxaparin 40 Mg/0.4 Ml Syringe) 40 mg SUBCUT DAILY [facility] Last Admin: 11/18/24 13:17 Dose: 40 mg Documented By: LDV Hydromorphone HCl (Hydromorphone 2 Mg Inj) 2 mg IV Q2H PRN PRN Reason: Pain, Severe (7-10) Last Admin: 11/18/24 18:23 Dose: 2 mg Documented By: LDV Sodium Chloride (Normal Saline 0.45%) 1,000 mls @ 100 mls/hr IV CONT [facility] Last Admin: 11/18/24 12:11 Dose: 100 mls/hr Documented By: LDV Naloxone HCl (Naloxone 0.4 Mg/Ml Vial) 0.2 mg IV Q2MIN PRN PRN Reason: Opiate Reversal Nf - Hydroxyurea 200 (Mg Capsule) 200 mg PO DAILY [facility] Last Admin: 11/18/24 13:01 Dose: Not Given Documented By: LDV Ondansetron HCl (Ondansetron 4 Mg/2 Ml Inj) 4 mg IV Q4HR PRN PRN Reason: Nausea And Vomiting Last Admin: 11/18/24 18:25 Dose: 4 mg Documented By: DHIRAJV Oxycodone HCl (Oxycodone Ir 5 Mg Tablet) 5 mg PO Q3H PRN PRN Reason: Pain, Moderate (4-6) Last Admin: 11/18/24 20:00 Dose: 5 mg Documented By: Admin: 11/18/24 16:10 Dose: 5 mg Documented By: Admin: 11/18/24 13:18 Dose: 5 mg Documented By: RUY Discontinued Medications Diphenhydramine HCl (Diphenhydramine 50 Mg/Ml Vial) 25 mg IV NOW ONE Stop: 11/18/24 17:41 Last Admin: 11/18/24 18:25 Dose: 25 mg Documented By: RUY Hydromorphone HCl (Hydromorphone 1 Mg Inj) 1 mg IV NOW ONE Stop: 11/18/24 06:24 Last Admin: 11/18/24 06:32 Dose: 1 mg Documented By: KH Hydromorphone HCl (Hydromorphone 1 Mg Inj) 1 mg IV NOW ONE Stop: 11/18/24 07:19 Last Admin: 11/18/24 07:23 Dose: 1 mg Documented By: MPO Hydromorphone HCl (Hydromorphone 1 Mg Inj) 1 mg IV NOW ONE Stop: 11/18/24 07:53 Last Admin: 11/18/24 08:02 Dose: 1 mg Documented By: MPO Hydromorphone HCl (Hydromorphone 0.5 Mg Inj) 0.5 mg IV NOW ONE Stop: 11/18/24 09:02 Last Admin: 11/18/24 09:17 Dose: 0.5 mg Documented By: MPO Hydromorphone HCl (Hydromorphone 0.5 Mg Inj) 1 mg IV Q2H PRN PRN Reason: Pain, Severe (7-10) Last Admin: 11/18/24 16:34 Dose: 1 mg Documented By: Admin: 11/18/24 14:29 Dose: 1 mg Documented By: Admin: 11/18/24 12:12 Dose: 1 mg Documented By: URY Lactated Ringer's (Lactated Ringers) 1,000 mls @ 1,000 mls/hr IV BOLUS ONE Stop: 11/18/24 07:22 Last Infusion: 11/18/24 07:35 Dose: Infused Documented By: Admin: 11/18/24 06:31 Dose: 1,000 mls/hr Documented By: LOAN Lactated Ringer's (Lactated Ringers) 1,000 mls @ 1,000 mls/hr IV BOLUS ONE Stop: 11/18/24 08:38 Last Infusion: 11/18/24 09:06 Dose: Infused Documented By: Admin: 11/18/24 07:50 Dose: 1,000 mls/hr Documented By: MPO Naloxone HCl (Naloxone 0.4 Mg/Ml Vial) 0.2 mg IV Q2MIN PRN PRN Reason: Opiate Reversal Ondansetron HCl (Ondansetron 4 Mg/2 Ml Inj) 4 mg IV Q8HR PRN PRN Reason: Nausea And Vomiting Vital Signs Vital signs: Vital Signs - 8 hr 11/18/24 10:00 11/18/24 10:30 Pulse Rate 61 69 Pulse Oximetry 100 100 <Jeovanny Yost MD - Last Filed: 11/18/24 20:55> Orders Ordered: Acetaminophen (Acetaminophen 325 Mg Tablet) 650 mg PO Q6H PRN PRN Reason: Fever/Mild Pain (1-3) Duloxetine HCl (Duloxetine 30 Mg Capsule) 60 mg PO DAILY [facility] Last Admin: 11/18/24 13:17 Dose: 60 mg Documented By: LDV Enoxaparin Sodium (Enoxaparin 40 Mg/0.4 Ml Syringe) 40 mg SUBCUT DAILY [facility] Last Admin: 11/18/24 13:17 Dose: 40 mg Documented By: LDV Hydromorphone HCl (Hydromorphone 2 Mg Inj) 2 mg IV Q2H PRN PRN Reason: Pain, Severe (7-10) Last Admin: 11/18/24 18:23 Dose: 2 mg Documented By: LDV Sodium Chloride (Normal Saline 0.45%) 1,000 mls @ 100 mls/hr IV CONT [facility] Last Admin: 11/18/24 12:11 Dose: 100 mls/hr Documented By: LDV Naloxone HCl (Naloxone 0.4 Mg/Ml Vial) 0.2 mg IV Q2MIN PRN PRN Reason: Opiate Reversal Nf - Hydroxyurea 200 (Mg Capsule) 200 mg PO DAILY [facility] Last Admin: 11/18/24 13:01 Dose: Not Given Documented By: RUY Ondansetron HCl (Ondansetron 4 Mg/2 Ml Inj) 4 mg IV Q4HR PRN PRN Reason: Nausea And Vomiting Last Admin: 11/18/24 18:25 Dose: 4 mg Documented By: RUY Oxycodone HCl (Oxycodone Ir 5 Mg Tablet) 5 mg PO Q3H PRN PRN Reason: Pain, Moderate (4-6) Last Admin: 11/18/24 20:00 Dose: 5 mg Documented By: Admin: 11/18/24 16:10 Dose: 5 mg Documented By: Admin: 11/18/24 13:18 Dose: 5 mg Documented By: RUY Discontinued Medications Diphenhydramine HCl (Diphenhydramine 50 Mg/Ml Vial) 25 mg IV NOW ONE Stop: 11/18/24 17:41 Last Admin: 11/18/24 18:25 Dose: 25 mg Documented By: RUY Hydromorphone HCl (Hydromorphone 1 Mg Inj) 1 mg IV NOW ONE Stop: 11/18/24 06:24 Last Admin: 11/18/24 06:32 Dose: 1 mg Documented By: LOAN Hydromorphone HCl (Hydromorphone 1 Mg Inj) 1 mg IV NOW ONE Stop: 11/18/24 07:19 Last Admin: 11/18/24 07:23 Dose: 1 mg Documented By: MPO Hydromorphone HCl (Hydromorphone 1 Mg Inj) 1 mg IV NOW ONE Stop: 11/18/24 07:53 Last Admin: 11/18/24 08:02 Dose: 1 mg Documented By: MPO Hydromorphone HCl (Hydromorphone 0.5 Mg Inj) 0.5 mg IV NOW ONE Stop: 11/18/24 09:02 Last Admin: 11/18/24 09:17 Dose: 0.5 mg Documented By: MPO Hydromorphone HCl (Hydromorphone 0.5 Mg Inj) 1 mg IV Q2H PRN PRN Reason: Pain, Severe (7-10) Last Admin: 11/18/24 16:34 Dose: 1 mg Documented By: Admin: 11/18/24 14:29 Dose: 1 mg Documented By: Admin: 11/18/24 12:12 Dose: 1 mg Documented By: LDV Lactated Ringer's (Lactated Ringers) 1,000 mls @ 1,000 mls/hr IV BOLUS ONE Stop: 11/18/24 07:22 Last Infusion: 11/18/24 07:35 Dose: Infused Documented By: Admin: 11/18/24 06:31 Dose: 1,000 mls/hr Documented By: KH Lactated Ringer's (Lactated Ringers) 1,000 mls @ 1,000 mls/hr IV BOLUS ONE Stop: 11/18/24 08:38 Last Infusion: 11/18/24 09:06 Dose: Infused Documented By: Admin: 11/18/24 07:50 Dose: 1,000 mls/hr Documented By: BRIGITTE Naloxone HCl (Naloxone 0.4 Mg/Ml Vial) 0.2 mg IV Q2MIN PRN PRN Reason: Opiate Reversal Ondansetron HCl (Ondansetron 4 Mg/2 Ml Inj) 4 mg IV Q8HR PRN PRN Reason: Nausea And Vomiting Vital Signs Vital signs: Vital Signs - 8 hr 11/18/24 10:00 11/18/24 10:30 Pulse Rate 61 69 Pulse Oximetry 100 100 MDM - Back Pain/Injury <Kwan Jimenes, - Last Filed: 11/18/24 17:59> Lab Data 11/18/24 06:15 11/18/24 06:15 Labs: Lab Results 11/18/24 11/18/24 Range/Units 06:15 09:50 WBC 12.9 H (4.5-11.0) X10^3/uL RBC 3.45 L (4.5-5.9) X10^6/uL Hgb 8.8 L (13.5-17.5) g/dL Hct 25.6 L (41-53) % MCV 74.1 L (80-100) fL MCH 25.4 L (26-34) PG MCHC 34.3 (30-36) % RDW 19.2 H (11.6-14.8) % Plt Count 255 (150-400) X10^3/uL Neut % (Auto) 51.5 (50-75) % Lymph % (Auto) 33.5 (25-40) % [place] % (Auto) 11.5 (3-14) % Eos % (Auto) 1.9 L (2-4) % Baso % (Auto) 1.6 (0-2) % Neut # (Auto) 6700 (5220-2913) /uL Lymph # (Auto) 4300 (7801-5133) /uL [place] # (Auto) 1500 H (0-900) /uL Eos # (Auto) 200 (0-450) /uL Baso # (Auto) 200 H (0-100) /uL Percent Retic 7.4 H (0.9-2.6) % Sodium 139 (137-145) mmol/L Potassium 3.6 (3.4-5.1) mmol/L Chloride 106 (98-107) mmol/L Carbon Dioxide 23 (22-32) mmol/L BUN 5 L (9-20) mg/dL Creatinine 0.69 (0.66-1.25) mg/dL Estimated GFR > 60 (>60) mL/min BUN/Creatinine Ratio 7.2 (6-22) Glucose 105 H (70-100) mg/dL Calcium 8.4 (8.4-10.2) mg/dL Total Bilirubin 2.6 H (0.2-1.3) mg/dL AST 68 H (17-59) IU/L ALT 33 (<50) IU/L Alkaline Phosphatase 78 (38-126) U/L Total Protein 7.9 (6.3-8.2) g/dL Albumin 4.3 (3.5-5.0) g/dL Globulin 3.6 (1.7-4.1) g/dL Albumin/Globulin Ratio 1.2 (1.0-2.8) Urine Color Yellow Urine Appearance Clear Urine pH 6.5 (4.5-8.0) Ur Specific Waterproof 1.010 (1.000-1.035) Urine Protein Negative (Negative) Urine Glucose (UA) Negative (Negative) g/dL Urine Ketones Negative (NEGATIVE) Urine Occult Blood Trace-intact (Negative) Urine Nitrate Negative (Negative) Urine Bilirubin Negative (NEGATIVE) Urine Urobilinogen 0.2 (0.2) E.U./dL Ur Leukocyte Esterase Negative (NEGATIVE) Urine RBC None seen (0-5/HPF) Urine WBC None seen (0-5/HPF) Ur Squamous Epith Cells None seen (0-5/HPF) Urine Bacteria None seen (None) Ur Culture Indicated? Cult not indicated Vol Urine Centrifuged 10ml (spun) SARS-CoV-2 (PCR) Negative (Negative) Influenza A (RT-PCR) Flu a negative (NEGATIVE) Influenza B (RT-PCR) Flu b negative (NEGATIVE) RSV (PCR) Negative (Negative) MDM Narrative Medical decision making narrative: Pt s/o to at shift change pending final disposition 11/18/24, 0900, Priyank. Sign-out from Dr. Jimenes. 24-year-old male known to me from prior numerous visits, history of sickle cell disease, remote stroke with residual left hemiparesis, prior splenectomy, frequent visits for low back pain and leg pain typical symptoms for his sickle crises, having typical symptoms back and leg pain, but also today with chest pain, denies cough or fever, no trauma or new activities known. 92% room air, was given 2 L empiric nasal cannula oxygen therapy, IV Dilaudid 1mg x3, reticulocyte count less than previous visit a few days ago, other screening labs unremarkable. Reassess for response to analgesia for disposition plan. Assumed care. Laboratory data: White blood cell count 25641, hemoglobin 8.8, platelets [id number]. Glucose 105. BUN 5 with creatinine 0.69 normal renal function. Serum CO2 23. Sodium 139 with potassium 3.6 normal. Reticulocyte count 7.4, was 8.9 four days ago. Total bilirubin 2.6 elevated similarly in the past (as high as 3.9 in August 2022), mild AST elevation, normal ALT and alkaline phosphatase. Urinalysis negative. Patient has chest pain as well as typical back and leg pain, still having pain after 3 mg IV Dilaudid, consider admission, patient agreeable, IV Dilaudid 0.5 mg additional order. We will check chest x-ray, will send COVID/flu swab. Will contact hospitalist. 1015, Chest x-ray without obvious acute changes, see radiology report. COVID, influenza, RSV swabs negative. Still awaiting call back from hospitalist. 1040, still no call back from hospitalist, to be paged overhead 1100, case discussed with hospitalist Dr Myers who saw patient in ED and accepts patient for admission to observation <Jeovanny Yost MD - Last Filed: 11/18/24 20:55> Lab Data Attestation: I reviewed the patient's lab results. Lab results narrative: White blood cell count 83509, hemoglobin 8.8, platelets [id number]. Glucose 105. BUN 5 with creatinine 0.69 normal renal function. Serum CO2 23. Sodium 139 with potassium 3.6 normal. Total bilirubin 2.6 elevated similarly in the past (as high as 3.9 in August 2022), mild AST elevation, normal ALT and alkaline phosphatase. Labs: Lab Results 11/18/24 11/18/24 Range/Units 06:15 09:50 WBC 12.9 H (4.5-11.0) X10^3/uL RBC 3.45 L (4.5-5.9) X10^6/uL Hgb 8.8 L (13.5-17.5) g/dL Hct 25.6 L (41-53) % MCV 74.1 L (80-100) fL MCH 25.4 L (26-34) PG MCHC 34.3 (30-36) % RDW 19.2 H (11.6-14.8) % Plt Count 255 (150-400) X10^3/uL Neut % (Auto) 51.5 (50-75) % Lymph % (Auto) 33.5 (25-40) % [place] % (Auto) 11.5 (3-14) % Eos % (Auto) 1.9 L (2-4) % Baso % (Auto) 1.6 (0-2) % Neut # (Auto) 6700 (3632-0691) /uL Lymph # (Auto) 4300 (2323-0192) /uL [place] # (Auto) 1500 H (0-900) /uL Eos # (Auto) 200 (0-450) /uL Baso # (Auto) 200 H (0-100) /uL Percent Retic 7.4 H (0.9-2.6) % Sodium 139 (137-145) mmol/L Potassium 3.6 (3.4-5.1) mmol/L Chloride 106 (98-107) mmol/L Carbon Dioxide 23 (22-32) mmol/L BUN 5 L (9-20) mg/dL Creatinine 0.69 (0.66-1.25) mg/dL Estimated GFR > 60 (>60) mL/min BUN/Creatinine Ratio 7.2 (6-22) Glucose 105 H (70-100) mg/dL Calcium 8.4 (8.4-10.2) mg/dL Total Bilirubin 2.6 H (0.2-1.3) mg/dL AST 68 H (17-59) IU/L ALT 33 (<50) IU/L Alkaline Phosphatase 78 (38-126) U/L Total Protein 7.9 (6.3-8.2) g/dL Albumin 4.3 (3.5-5.0) g/dL Globulin 3.6 (1.7-4.1) g/dL Albumin/Globulin Ratio 1.2 (1.0-2.8) Urine Color Yellow Urine Appearance Clear Urine pH 6.5 (4.5-8.0) Ur Specific [place] 1.010 (1.000-1.035) Urine Protein Negative (Negative) Urine Glucose (UA) Negative (Negative) g/dL Urine Ketones Negative (NEGATIVE) Urine Occult Blood Trace-intact (Negative) Urine Nitrate Negative (Negative) Urine Bilirubin Negative (NEGATIVE) Urine Urobilinogen 0.2 (0.2) E.U./dL Ur Leukocyte Esterase Negative (NEGATIVE) Urine RBC None seen (0-5/HPF) Urine WBC None seen (0-5/HPF) Ur Squamous Epith Cells None seen (0-5/HPF) Urine Bacteria None seen (None) Ur Culture Indicated? Cult not indicated Vol Urine Centrifuged 10ml (spun) SARS-CoV-2 (PCR) Negative (Negative) Influenza A (RT-PCR) Flu a negative (NEGATIVE) Influenza B (RT-PCR) Flu b negative (NEGATIVE) RSV (PCR) Negative (Negative) Imaging Data Chest x-ray: Radiologist's Impression: [address] [address] XRay Report Signed Patient: Lucretia Keller MR#: [id number] : 2000 Acct:[id number] Age/Sex: 24 / M Date of Service: 11/18/24 Loc: ED Accession Number: [id number] Procedure: XR chest 2V Ordering Provider: Jeovanny Yost MD PROCEDURE: XR CHEST 2V INDICATIONS: chest pain, hx sickle crisis/splenectomy TECHNIQUE: 2 views of the chest were acquired. COMPARISON: [facility], CR, XR CHEST 1V, 11/02/2024, 12:34. FINDINGS: Surgical changes and devices: None. Lungs and pleura: Lungs are clear. No pleural effusions or pneumothorax. Mediastinum: Mediastinal contours are normal. Heart size is normal. Bones and chest wall: No suspicious bony abnormalities. Soft tissues appear unremarkable. IMPRESSION: No acute cardiopulmonary abnormality is seen. Dictated by: Tl Dawkins M.D. on 11/18/2024 at 9:26 Approved by: Tl Dawkins M.D. on 11/18/2024 at 9:26 MDM Narrative Medical decision making narrative: 11/18/24, Priyank Blue. Sign-out from Dr. Jimenes. 24-year-old male known to me from prior numerous visits, history of sickle cell disease, remote stroke with residual left hemiparesis, prior splenectomy, frequent visits for low back pain and leg pain typical symptoms for his sickle crises, having typical symptoms back and leg pain, but also today with chest pain, denies cough or fever, no trauma or new activities known. 92% room air, was given 2 L empiric nasal cannula oxygen therapy, IV Dilaudid 1mg x3, reticulocyte count less than previous visit a few days ago, other screening labs unremarkable. Reassess for response to analgesia for disposition plan. Assumed care. Laboratory data: White blood cell count 45781, hemoglobin 8.8, platelets [id number]. Glucose 105. BUN 5 with creatinine 0.69 normal renal function. Serum CO2 23. Sodium 139 with potassium 3.6 normal. Reticulocyte count 7.4, was 8.9 four days ago. Total bilirubin 2.6 elevated similarly in the past (as high as 3.9 in August 2022), mild AST elevation, normal ALT and alkaline phosphatase. Urinalysis negative. Patient has chest pain as well as typical back and leg pain, still having pain after 3 mg IV Dilaudid, consider admission, patient agreeable, IV Dilaudid 0.5 mg additional order. We will check chest x-ray, will send COVID/flu swab. Will contact hospitalist. 1015, Chest x-ray without obvious acute changes, see radiology report. COVID, influenza, RSV swabs negative. Still awaiting call back from hospitalist. 1040, still no call back from hospitalist, to be paged overhead 1100, case discussed with hospitalist Dr Myers who saw patient in ED and accepts patient for admission to observation Critical Care Time <Jeovanny Yost MD - Last Filed: 11/18/24 20:55> Critical Care Time Critical Care Time: Yes Total Critical Care Time: 35 Attestation: The high probability of a clinically significant, sudden or life threatening deterioration of the [hematologic, cardiopulmonary, musculoskeletal] system(s) required my full and direct attention, intervention and personal management. The aggregate critical care time was [35] minutes. This time is in addition to time spent performing reported procedures but includes the following: [x] Data Review and interpretation [x] Patient assessment and monitoring of vital signs [x] Documentation [x] Medication orders and management Discharge Plan Departure Patient Disposition: Admitted as Observation Clinical Impression: Sickle cell disease with crisis Admit Date/Time: 11/18/24 11:26 Admit Provider: Daniel Myers
[2024-11-18] MEDS: LACTATED RINGERS 1,000 ML 1000 ML IV ×2 (06:31→07:50)
[2024-11-18] MEDS: HYDROMORPHONE 1 MG INJ IV ×3 (06:32→08:02)
[2024-11-18 06:35] LABS: Alanine Aminotransferase 33 IU/L (<50); Albumin 4.3 g/dL (3.5-5.0); Albumin Globulin Ratio 1.2 (1.0-2.8); Alkaline Phosphatase 78 U/L (38-126); Aspartate Aminotransferase 68 IU/L (17-59); BUN Creatinine Ratio 7.2 (6-22); Bilirubin Total 2.6 mg/dL (0.2-1.3); Blood Urea Nitrogen 5 mg/dL (9-20); Calcium 8.4 mg/dL (8.4-10.2); Carbon Dioxide 23 mmol/L (22-32); Chloride 106 mmol/L (98-107); Estimated Glomerular Filt Rate > 60 mL/min (>60); Globulin 3.6 g/dL (1.7-4.1); Glucose 105 mg/dL (70-100); HEMOLYSIS 33 (0-50); Potassium 3.6 mmol/L (3.4-5.1); Sodium 139 mmol/L (137-145); Total Protein 7.9 g/dL (6.3-8.2)
[2024-11-18 06:36] LABS: Add Manual Diff / Slide Review NO; Basophils Absolute Auto 200 /uL (0-100); Basophils Percent Auto 1.6 % (0-2); Eosinophils Absolute Auto 200 /uL (0-450); Eosinophils Percent Auto 1.9 % (2-4); Hematocrit 25.6 % (41-53); Hemoglobin 8.8 g/dL (13.5-17.5); Lymphocytes Absolute Auto 4300 /uL (1100-4500); Lymphocytes Percent Auto 33.5 % (25-40); Mean Corpuscular HGB Conc 34.3 % (30-36); Mean Corpuscular Hemoglobin 25.4 PG (26-34); Mean Corpuscular Volume 74.1 fL (80-100); Monocytes Absolute Auto 1500 /uL (0-900); Monocytes Percent Auto 11.5 % (3-14); Neutrophils Absolute Auto 6700 /uL (1500-7000); Neutrophils Percent Auto 51.5 % (50-75); Platelet Count 255 X10^3/uL (150-400); Red Blood Cell Count 3.45 X10^6/uL (4.5-5.9); Red Cell Distribution Width 19.2 % (11.6-14.8); White Blood Cell Count 12.9 X10^3/uL (4.5-11.0)
[2024-11-18 06:42] LABS: Reticulocyte Count, Percent 7.4 % (0.9-2.6)
--- NOTE | 2024-11-18 08:47 | PC.NURSE ---
Pt states that he is still having significant pain after 3mg of dilaudid and 2L LR. Dr Jimenes notified of pt's pain level.
--- NOTE | 2024-11-18 09:02 | DI.RAD.S_ITS ---
PROCEDURE: XR CHEST 2V INDICATIONS: chest pain, hx sickle crisis/splenectomy TECHNIQUE: 2 views of the chest were acquired. COMPARISON: [facility], CR, XR CHEST 1V, 11/02/2024, 12:34. FINDINGS: Surgical changes and devices: None. Lungs and pleura: Lungs are clear. No pleural effusions or pneumothorax. Mediastinum: Mediastinal contours are normal. Heart size is normal. Bones and chest wall: No suspicious bony abnormalities. Soft tissues appear unremarkable. IMPRESSION: No acute cardiopulmonary abnormality is seen. Dictated by: Tl Dawkins M.D. on 11/18/2024 at 9:26 Approved by: Tl Dawkins M.D. on 11/18/2024 at 9:26
[2024-11-18] MEDS: HYDROMORPHONE 0.5 MG INJ IV (09:17)
[2024-11-18 10:05] LABS: Appearance Urine UA CLEAR; Bilirubin Urine UA NEGATIVE (NEGATIVE); Color Urine UA YELLOW; Glucose Urine UA NEGATIVE (Negative); Ketones Urine UA NEGATIVE (NEGATIVE); Leukocyte Esterase Urine UA NEGATIVE (NEGATIVE); Nitrite Urine UA NEGATIVE (Negative); Occult Blood Urine UA TRACE-INTACT (Negative); Protein Urine UA NEGATIVE (Negative); Urobilinogen Urine UA 0.2 E.U./dL (0.2); pH Urine UA 6.5 (4.5-8.0)
[2024-11-18 10:08] LABS: Urine Volume 10mL (spun)
[2024-11-18 10:09] LABS: Bacteria Urine None Seen; Culture Indicated Urine Cult Not Indicated; RBC Urine None Seen (0-5/HPF); Squamous Epithelial Cell Urine None Seen (0-5/HPF); WBC Urine None Seen (0-5/HPF)
[2024-11-18 10:44] LABS: COVID-19 CEPHEID 4-PLEX PCR Negative (Negative); Influenza A - CEPHEID Flu A NEGATIVE (NEGATIVE); Influenza B - CEPHEID Flu B NEGATIVE (NEGATIVE); Respiratory Syncytial Virus Negative (Negative)
--- NOTE | 2024-11-18 11:46 | P.HP_ITS ---
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 Patient has been seen multiple times in the emergency room and discharged after IV fluids analgesics and oxygen. Was seen by the emergency department 2 days prior to this admission, however symptoms have not abated and patient was referred for observation admission Current medications: Duloxetine 60 mg daily Hydroxyurea 200 mg daily Ondansetron 4 mg disintegrating tablet as needed Pen-VK 250 b.i.d. as needed for sickle cell Vitamin D3 1250 mcg p.o. weekly Patient has no known drug allergies Past surgical history History of shoulder surgery Hip joint replacement Splenectomy Review of systems: No fever chills no headache diplopia or blurred vision no paresthesia or paresis No cough No shortness of breath No nausea vomiting abdominal pain diarrhea constipation No urinary symptoms Physical exam: Young male very fatigued-appearing but calm left upper extremity is contracted HEENT unremarkable Neck no thyromegaly Heart rate and rhythm regular no murmurs Lungs clear from apices to bases Abdomen nontender bowel sounds present Extremities no edema Patient alert and oriented Assessment and plan: Sickle cell crisis: IV fluids, analgesics, nasal cannula oxygen, p.o. doxycycline DVT prophylaxis with enoxaparin Full code Laboratory and [facility] Medical History Vitamin D deficiency PTSD (post-traumatic stress disorder) Depression Anxiety Seizure Anemia Avascular necrosis of bone Contracture, left elbow Contracture, left hand CVA (cerebral vascular accident) Sickle cell anemia Surgical History History of shoulder surgery 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 Family History Father Cancer Sickle cell trait Lupus Mother Sickle cell trait Brother Sickle cell trait Social History household members: significant other alcohol intake: never Meds Home Medications and Allergies Home Medications Medication Instructions Recorded Confirmed Type hydromorphone 2 mg tablet 2 mg PO Q6H PRN pain #14 tabs 09/30/24 10/23/24 Rx (Dilaudid) duloxetine 60 mg capsule,delayed 60 mg PO DAILY #60 caps 10/02/24 10/23/24 Rx release hydroxyurea (sickle cell) 200 mg 200 mg PO DAILY #90 caps 10/02/24 10/23/24 Rx capsule ondansetron 4 mg disintegrating 4 mg PO Q8H PRN nausea and 10/02/24 10/23/24 Rx tablet vomiting #20 tabs penicillin V potassium 250 mg 250 mg PO BID sickle cell #90 tabs 10/02/24 10/23/24 Rx tablet hydrocodone 5 mg-acetaminophen 325 1 tab PO Q6H PRN pain #14 tabs 10/19/24 10/23/24 Rx mg tablet oxycodone-acetaminophen 5 mg-325 1 tab PO Q4-6H PRN pain #30 tabs 10/23/24 10/23/24 Rx mg tablet (Percocet) cholecalciferol (vitamin D3) 1,250 1,250 mcg PO QWEEK 6 weeks #6 caps 10/25/24 Rx mcg (50,000 unit) capsule cholecalciferol (vitamin D3) 10 20 mcg (2 x 10 mcg (400 unit)) PO 10/25/24 Rx mcg (400 unit) capsule DAILY #180 caps hydrocodone 5 mg-acetaminophen 325 1 tab PO Q6H PRN pain #14 tabs 11/02/24 Rx mg tablet hydrocodone 5 mg-acetaminophen 325 1 tab PO Q6H PRN pain #14 tabs 11/02/24 Rx mg tablet tramadol 50 mg tablet 50 mg PO Q8H PRN pain #20 tabs 11/12/24 Rx Allergies Allergy/AdvReac Type Severity Reaction Status Date / Time No Known Drug Allergies Allergy Verified 10/23/24 07:54 Exam Vital Signs (past 8 hours): - 11/18/24 06:09 11/18/24 06:09 11/18/24 06:09 Temperature 98.8 F Pulse Rate 96 H 93 H Respiratory Rate 24 Blood Pressure 131/72 131/72 Pulse Oximetry 98 98 Oxygen Delivery Method Room Air 11/18/24 06:18 11/18/24 06:18 11/18/24 06:30 Temperature Pulse Rate 92 H Respiratory Rate Blood Pressure 115/72 123/69 Pulse Oximetry 99 Oxygen Delivery Method 11/18/24 06:30 11/18/24 07:00 11/18/24 07:00 Temperature Pulse Rate 92 H 73 Respiratory Rate Blood Pressure 116/73 Pulse Oximetry 98 97 Oxygen Delivery Method Room Air 11/18/24 07:30 11/18/24 07:30 11/18/24 08:00 Temperature Pulse Rate 75 75 Respiratory Rate Blood Pressure 117/66 Pulse Oximetry 95 96 Oxygen Delivery Method 11/18/24 08:00 11/18/24 08:30 11/18/24 08:30 Temperature Pulse Rate 70 Respiratory Rate Blood Pressure 116/72 123/78 Pulse Oximetry 94 Oxygen Delivery Method 11/18/24 09:00 11/18/24 09:00 11/18/24 09:17 Temperature Pulse Rate 72 66 Respiratory Rate Blood Pressure 117/67 Pulse Oximetry 100 100 Oxygen Delivery Method 11/18/24 09:17 11/18/24 09:30 11/18/24 10:00 Temperature Pulse Rate 66 61 Respiratory Rate Blood Pressure 116/82 Pulse Oximetry 100 100 Oxygen Delivery Method 11/18/24 10:30 Temperature Pulse Rate 69 Respiratory Rate Blood Pressure Pulse Oximetry 100 Oxygen Delivery Method Oxygen Delivery Method Room Air Objective Labs 11/18/24 06:15 11/18/24 06:15 Labs: Laboratory Results - last 24 hr 11/18/24 11/18/24 06:15 09:50 WBC 12.9 H RBC 3.45 L Hgb 8.8 L Hct 25.6 L MCV 74.1 L MCH 25.4 L MCHC 34.3 RDW 19.2 H Plt Count 255 Neut % (Auto) 51.5 Lymph % (Auto) 33.5 [place] % (Auto) 11.5 Eos % (Auto) 1.9 L Baso % (Auto) 1.6 Neut # (Auto) 6700 Lymph # (Auto) 4300 [place] # (Auto) 1500 H Eos # (Auto) 200 Baso # (Auto) 200 H Percent Retic 7.4 H Sodium 139 Potassium 3.6 Chloride 106 Carbon Dioxide 23 BUN 5 L Creatinine 0.69 Estimated GFR > 60 BUN/Creatinine Ratio 7.2 Glucose 105 H Calcium 8.4 Total Bilirubin 2.6 H AST 68 H ALT 33 Alkaline Phosphatase 78 Total Protein 7.9 Albumin 4.3 Globulin 3.6 Albumin/Globulin Ratio 1.2 Urine Color Yellow Urine Appearance Clear Urine pH 6.5 Ur Specific [place] 1.010 Urine Protein Negative Urine Glucose (UA) Negative Urine Ketones Negative Urine Occult Blood Trace-intact Urine Nitrate Negative Urine Bilirubin Negative Urine Urobilinogen 0.2 Ur Leukocyte Esterase Negative Urine RBC None seen Urine WBC None seen Ur Squamous Epith Cells None seen Urine Bacteria None seen Ur Culture Indicated? Cult not indicated Vol Urine Centrifuged 10ml (spun) SARS-CoV-2 (PCR) Negative Influenza A (RT-PCR) Flu a negative Influenza B (RT-PCR) Flu b negative RSV (PCR) Negative Assessment & Plan Time-Based Coding :: [TOTAL MINUTES] spent with patient and on the chart (including review of chart, obtaining history, exam, reviewing outside data, placing orders, documenting exam and treatment plan, and counseling patient) on [DATE].
[2024-11-18] MEDS: SODIUM CHLORIDE 0.45% 1,000 ML 100 ML IV ×2 (12:11→21:09)
[2024-11-18] MEDS: HYDROMORPHONE 0.5 MG INJ 1 MG IV ×3 (12:12→16:34)
[2024-11-18] MEDS: ENOXAPARIN 40 MG/0.4 ML SYRINGE SUBCUT (13:17)
[2024-11-18] MEDS: DULOXETINE 30 MG CAPSULE 60 MG PO (13:17)
[2024-11-18] MEDS: OXYCODONE IR 5 MG TABLET PO ×3 (13:18→20:00)
[2024-11-18] MEDS: HYDROMORPHONE 2 MG INJ IV ×3 (18:23→22:37)
[2024-11-18] MEDS: diphenhydrAMINE 50 MG/ML VIAL 25 MG IV (18:25)
[2024-11-18] MEDS: ONDANSETRON 4 MG/2 ML INJ IV (18:25)
[2024-11-19] VITALS: BP 104/66; PULSE 75; RESP 16; TEMP 36.4; O2SAT 94
[2024-11-19] MEDS: HYDROMORPHONE 2 MG INJ IV ×10 (00:51→22:01)
[2024-11-19 05:03] LABS: Add Manual Diff / Slide Review NO; Basophils Absolute Auto 200 /uL (0-100); Basophils Percent Auto 1.4 % (0-2); Eosinophils Absolute Auto 100 /uL (0-450); Eosinophils Percent Auto 0.9 % (2-4); Hematocrit 23.8 % (41-53); Hemoglobin 8.2 g/dL (13.5-17.5); Lymphocytes Absolute Auto 2400 /uL (1100-4500); Lymphocytes Percent Auto 21.3 % (25-40); Mean Corpuscular HGB Conc 34.5 % (30-36); Mean Corpuscular Hemoglobin 25.4 PG (26-34); Mean Corpuscular Volume 73.7 fL (80-100); Monocytes Absolute Auto 1700 /uL (0-900); Monocytes Percent Auto 15.4 % (3-14); Neutrophils Absolute Auto 6800 /uL (1500-7000); Platelet Count 220 X10^3/uL (150-400); Red Blood Cell Count 3.22 X10^6/uL (4.5-5.9); Red Cell Distribution Width 19.8 % (11.6-14.8); White Blood Cell Count 11.2 X10^3/uL (4.5-11.0)
[2024-11-19 05:17] LABS: Alanine Aminotransferase 29 IU/L (<50); Albumin Globulin Ratio 1.2 (1.0-2.8); Alkaline Phosphatase 77 U/L (38-126); Aspartate Aminotransferase 60 IU/L (17-59); Bilirubin Total 3.1 mg/dL (0.2-1.3); Calcium 8.2 mg/dL (8.4-10.2); Carbon Dioxide 24 mmol/L (22-32); Chloride 101 mmol/L (98-107); Estimated Glomerular Filt Rate > 60 mL/min (>60); Globulin 3.4 g/dL (1.7-4.1); Glucose 108 mg/dL (70-100); HEMOLYSIS < 15 (0-50); Potassium 3.4 mmol/L (3.4-5.1); Sodium 134 mmol/L (137-145); Total Protein 7.4 g/dL (6.3-8.2)
[2024-11-19 05:19] LABS: BUN Creatinine Ratio 3.5 (6-22); Blood Urea Nitrogen 2 mg/dL (9-20)
[2024-11-19 06:25] VITALS: BP 105/69; PULSE 66; RESP 16; TEMP 36.1; O2SAT 95
[2024-11-19] MEDS: DULOXETINE 30 MG CAPSULE 60 MG PO (08:27)
[2024-11-19] MEDS: SODIUM CHLORIDE 0.45% 1,000 ML 100 ML IV ×2 (08:31→20:27)
[2024-11-19] MEDS: SODIUM CHLORIDE 0.9% FLUSH 10 ML IV ×2 (08:31→21:11)
[2024-11-19] MEDS: POTASSIUM CHLORIDE 20 MEQ TAB 40 MEQ PO (10:40)
[2024-11-19 12:00] VITALS: BP 117/49; PULSE 77; RESP 12; TEMP 36.2; O2SAT 95
--- NOTE | 2024-11-19 14:47 | CM.DANOTE ---
Initial DCP Assessment Visit Note Reviewed EMR and team rounds for pt's medical status and updates. Pt lives independently in his own apartment with is girlfriend here in [place]. He also identifies his stepmother as an additional family contact (in EMR). Pt will plan to walk across the street back home once he's medically cleared for d/c. He declines any CM d/c assistance needs at this time. Payor: Fabien PCP: eJn Albarran Pt is a 24 year-old M with recurrent sickle cell flares. He presented to the ED yesterday with c/o chest pain, back and leg pain. He was started on IV Dilaudid with good effect. He denied nausea/vomiting at this time. Plan is d/c once his labs and pain and medically stable, likely 1-2 days. DCP will continue to monitor for any further evolving needs prior to his departure. Discharge Planning/Care Management CM Discharge Assessment Start: 11/19/24 14:38 Freq: Status: Active Protocol: Document 11/19/24 14:38 DPL (Rec: 11/19/24 14:47 DPL [id number]) Discharge Planning Assessment Assigned [employer]aster VISHNU Cisneros Advance Directives? No Advance Directives on File No History Provided By Patient,Medical Record Has Patient been admitted in last 30 No days? Prior Living Arrangements Apartment/Condo Household Members significant other Type of transporation used prior to Drives own vehicle admit Independent with ADL's Yes Is patient alert and oriented? Yes Caregiver for Another No Comment N/A Comment No identified home d/c needs at this time. Barriers to Discharge No Discharge Plan Home Transportation Arrangement Sig Other to transport Referrals Initiated None needed Review Status In Process Please Provide Date Initial DC 11/19/24 Assessment Was Performed
[2024-11-19 18:00] VITALS: BP 112/73; PULSE 65; RESP 15; TEMP 36.2; O2SAT 93
[2024-11-19] MEDS: OXYCODONE IR 5 MG TABLET PO (18:13)
--- NOTE | 2024-11-19 18:34 | P.PN_ITS ---
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 Patient has been seen multiple times in the emergency room and discharged after IV fluids analgesics and oxygen. Was seen by the emergency department 2 days prior to this admission, however symptoms have not abated and patient was referred for observation admission Current medications: Duloxetine 60 mg daily Hydroxyurea 200 mg daily Ondansetron 4 mg disintegrating tablet as needed Pen-VK 250 b.i.d. as needed for sickle cell Vitamin D3 1250 mcg p.o. weekly Patient has no known drug allergies Past surgical history History of shoulder surgery Hip joint replacement Splenectomy Review of systems: No fever chills no headache diplopia or blurred vision no paresthesia or paresis No cough No shortness of breath No nausea vomiting abdominal pain diarrhea constipation No urinary symptoms Physical exam: Young male very fatigued-appearing but calm left upper extremity is contracted HEENT unremarkable Neck no thyromegaly Heart rate and rhythm regular no murmurs Lungs clear from apices to bases Abdomen nontender bowel sounds present Extremities no edema Patient alert and oriented Assessment and plan: Sickle cell crisis: IV fluids, analgesics, nasal cannula oxygen, p.o. doxycycline DVT prophylaxis with enoxaparin Full code Exam Vital Signs (past 8 hours): - 11/19/24 12:00 11/19/24 18:00 Temperature 97.1 F L 97.2 F L Pulse Rate 77 65 Respiratory Rate 12 15 Blood Pressure 117/49 L 112/73 Pulse Oximetry 95 93 Oxygen Delivery Method Room Air Oxygen Flow Rate 0 Objective Labs 11/19/24 04:40 11/19/24 04:40 Labs: Laboratory Results - last 24 hr 11/19/24 04:40 WBC 11.2 H RBC 3.22 L Hgb 8.2 L Hct 23.8 L MCV 73.7 L MCH 25.4 L MCHC 34.5 RDW 19.8 H Plt Count 220 Neut % (Auto) 61.0 Lymph % (Auto) 21.3 L [place] % (Auto) 15.4 H Eos % (Auto) 0.9 L Baso % (Auto) 1.4 Neut # (Auto) 6800 Lymph # (Auto) 2400 [place] # (Auto) 1700 H Eos # (Auto) 100 Baso # (Auto) 200 H Sodium 134 L Potassium 3.4 Chloride 101 Carbon Dioxide 24 BUN 2 L Creatinine 0.57 L Estimated GFR > 60 BUN/Creatinine Ratio 3.5 L Glucose 108 H Calcium 8.2 L Total Bilirubin 3.1 H AST 60 H ALT 29 Alkaline Phosphatase 77 Total Protein 7.4 Albumin 4.0 Globulin 3.4 Albumin/Globulin Ratio 1.2 PFSH Medical History Vitamin D deficiency PTSD (post-traumatic stress disorder) Depression Anxiety Seizure Anemia Avascular necrosis of bone Contracture, left elbow Contracture, left hand CVA (cerebral vascular accident) Sickle cell anemia Surgical History History of shoulder surgery 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 Family History Father Cancer Sickle cell trait Lupus Mother Sickle cell trait Brother Sickle cell trait Social History household members: significant other alcohol intake: never Assessment & Plan Time-Based Coding :: [TOTAL MINUTES] spent with patient and on the chart (including review of chart, obtaining history, exam, reviewing outside data, placing orders, documenting exam and treatment plan, and counseling patient) on [DATE].
[2024-11-19 19:41] VITALS: BP 122/76; PULSE 68; RESP 16; TEMP 36.3; O2SAT 95
[2024-11-19 23:51] VITALS: BP 111/73; PULSE 77; RESP 16; TEMP 36.2; O2SAT 94
[2024-11-20] MEDS: HYDROMORPHONE 2 MG INJ IV ×12 (00:01→23:53)
[2024-11-20 05:10] VITALS: BP 114/66; PULSE 73; RESP 16; TEMP 36.2; O2SAT 93
[2024-11-20 05:39] LABS: Calcium 8.5 mg/dL (8.4-10.2); Carbon Dioxide 27 mmol/L (22-32); Chloride 98 mmol/L (98-107); Estimated Glomerular Filt Rate > 60 mL/min (>60); Glucose 96 mg/dL (70-100); HEMOLYSIS < 15 (0-50); Magnesium 1.7 mg/dL (1.6-2.3); Potassium 3.9 mmol/L (3.4-5.1); Sodium 132 mmol/L (137-145)
[2024-11-20 05:46] LABS: Blood Urea Nitrogen 2 mg/dL (9-20)
[2024-11-20] MEDS: SODIUM CHLORIDE 0.45% 1,000 ML 100 ML IV (07:30)
[2024-11-20] MEDS: ACETAMINOPHEN 325 MG TABLET 650 MG PO (07:49)
[2024-11-20] MEDS: OXYCODONE IR 5 MG TABLET PO ×3 (07:50→18:40)
[2024-11-20] MEDS: DULOXETINE 30 MG CAPSULE 60 MG PO (07:51)
[2024-11-20 09:09] LABS: Alanine Aminotransferase 29 IU/L (<50); Albumin 4.1 g/dL (3.5-5.0); Albumin Globulin Ratio 1.2 (1.0-2.8); Alkaline Phosphatase 82 U/L (38-126); Aspartate Aminotransferase 60 IU/L (17-59); Bilirubin Total 4.3 mg/dL (0.2-1.3); Calcium 8.5 mg/dL (8.4-10.2); Carbon Dioxide 28 mmol/L (22-32); Chloride 97 mmol/L (98-107); Estimated Glomerular Filt Rate > 60 mL/min (>60); Globulin 3.4 g/dL (1.7-4.1); Glucose 91 mg/dL (70-100); HEMOLYSIS < 15 (0-50); Potassium 3.8 mmol/L (3.4-5.1); Sodium 134 mmol/L (137-145); Total Protein 7.5 g/dL (6.3-8.2)
[2024-11-20 09:10] LABS: BUN Creatinine Ratio 3.8 (6-22); Blood Urea Nitrogen 2 mg/dL (9-20)
[2024-11-20 09:19] LABS: Hemoglobin 8.3 g/dL (13.5-17.5); Mean Corpuscular HGB Conc 34.6 % (30-36); Mean Corpuscular Hemoglobin 25.4 PG (26-34); Mean Corpuscular Volume 73.4 fL (80-100); Platelet Count 231 X10^3/uL (150-400); Red Blood Cell Count 3.27 X10^6/uL (4.5-5.9); Red Cell Distribution Width 21.6 % (11.6-14.8); White Blood Cell Count 13.4 X10^3/uL (4.5-11.0)
[2024-11-20 09:22] LABS: Add Manual Diff / Slide Review YES
[2024-11-20 09:44] LABS: Neutrophils Absolute Manual 7370 /uL (3000-5900); Nucleated Red Blood Cells 6 #/Diff; Total Cells Counted 100
[2024-11-20 09:46] LABS: Anisocytosis 2+
[2024-11-20 09:47] LABS: Microcytosis 1+; Target Cells 1+
[2024-11-20 09:48] LABS: Polychromasia 1+
[2024-11-20 09:52] LABS: Sickle Cells 1+
[2024-11-20] MEDS: MAGNESIUM CHLORIDE 64 MG TABLET 128 MG PO (11:34)
[2024-11-20] MEDS: SODIUM CHLORIDE 0.9% 1,000 ML 100 ML IV (11:55)
[2024-11-20 13:42] VITALS: BP 126/86; PULSE 67; RESP 16; TEMP 36.1; O2SAT 98
--- NOTE | 2024-11-20 17:34 | P.PN_ITS ---
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 Patient has been seen multiple times in the emergency room and discharged after IV fluids analgesics and oxygen. Was seen by the emergency department 2 days prior to this admission, however symptoms have not abated and patient was referred for observation admission Current medications: Duloxetine 60 mg daily Hydroxyurea 200 mg daily Ondansetron 4 mg disintegrating tablet as needed Pen-VK 250 b.i.d. as needed for sickle cell Vitamin D3 1250 mcg p.o. weekly Patient has no known drug allergies Past surgical history History of shoulder surgery Hip joint replacement Splenectomy Review of systems: No fever chills no headache diplopia or blurred vision no paresthesia or paresis No cough No shortness of breath No nausea vomiting abdominal pain diarrhea constipation No urinary symptoms Physical exam: Young male very fatigued-appearing but calm left upper extremity is contracted HEENT unremarkable Neck no thyromegaly Heart rate and rhythm regular no murmurs Lungs clear from apices to bases Abdomen nontender bowel sounds present Extremities no edema Patient alert and oriented Assessment and plan: Sickle cell crisis: IV fluids, analgesics, nasal cannula oxygen, p.o. doxycycline DVT prophylaxis with enoxaparin Full code Exam Vital Signs (past 8 hours): - 11/20/24 13:42 Temperature 97 F L Pulse Rate 67 Respiratory Rate 16 Blood Pressure 126/86 Pulse Oximetry 98 Oxygen Flow Rate 0 Oxygen Delivery Method Room Air Oxygen Flow Rate 0 Objective Labs 11/20/24 08:41 11/20/24 08:41 Labs: Laboratory Results - last 24 hr 11/20/24 11/20/24 04:49 08:41 WBC 13.4 H RBC 3.27 L Hgb 8.3 L Hct 24.0 L MCV 73.4 L MCH 25.4 L MCHC 34.6 RDW 21.6 H Plt Count 231 Neut % (Auto) Not Reportable Lymph % (Auto) Not Reportable [place] % (Auto) Not Reportable Eos % (Auto) Not Reportable Baso % (Auto) Not Reportable Lymph # (Auto) Not Reportable [place] # (Auto) Not Reportable Baso # (Auto) Not Reportable Total Counted 100 Seg Neutrophils % 53.0 Band Neutrophils % 2.0 L Lymphocytes % (Manual) 30.0 Monocytes % (Manual) 10.0 Eosinophils % (Manual) 4.0 Basophils % (Manual) 1.0 Neutrophils # (Manual) 7370 H Nucleated RBCs 6 H RBC Morphology See below Polychromasia 1+ H Anisocytosis 2+ H Microcytosis 1+ H Sickle Cells 1+ H Target Cells 1+ H Sodium 132 L 134 L Potassium 3.9 3.8 Chloride 98 97 L Carbon Dioxide 27 28 BUN 2 L 2 L Creatinine 0.50 L 0.52 L Estimated GFR > 60 > 60 BUN/Creatinine Ratio 4.0 L 3.8 L Glucose 96 91 Calcium 8.5 8.5 Magnesium 1.7 Total Bilirubin 4.3 H AST 60 H ALT 29 Alkaline Phosphatase 82 Total Protein 7.5 Albumin 4.1 Globulin 3.4 Albumin/Globulin Ratio 1.2 PFSH Medical History Vitamin D deficiency PTSD (post-traumatic stress disorder) Depression Anxiety Seizure Anemia Avascular necrosis of bone Contracture, left elbow Contracture, left hand CVA (cerebral vascular accident) Sickle cell anemia Surgical History History of shoulder surgery 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 Family History Father Cancer Sickle cell trait Lupus Mother Sickle cell trait Brother Sickle cell trait Social History household members: significant other alcohol intake: never Assessment & Plan Time-Based Coding :: [TOTAL MINUTES] spent with patient and on the chart (including review of chart, obtaining history, exam, reviewing outside data, placing orders, documenting exam and treatment plan, and counseling patient) on [DATE].
[2024-11-20 18:00] VITALS: BP 106/70; PULSE 69; RESP 16; TEMP 36.2; O2SAT 93
[2024-11-20] MEDS: SODIUM CHLORIDE 0.9% FLUSH 10 ML IV (19:51)
[2024-11-20 20:00] VITALS: BP 117/72; PULSE 74; RESP 18; TEMP 36.2; O2SAT 93
--- NOTE | 2024-11-21 | DI.CT.S_ITS ---
PROCEDURE: CT SHOULDER LEFT WITH CON INDICATIONS: History left shoulder infection 2 years again with pain in the shoulder for several days. History of sickle cell crisis. TECHNIQUE: Noncontrast 0.75 mm thick sections acquired from the acromioclavicular joint to the inferior scapula, with oblique coronal and oblique sagittal reformatting. For radiation dose reduction, the following was used: automated exposure control, adjustment of mA and/or kV according to patient size. COMPARISON: None. FINDINGS: Image quality: Excellent. Bones: No acute osseous fracture or dislocation. Chronic remodeling and flattening of the humeral head articular surface. Irregularity of the inferior glenoid articular surface with superimposed osseous remodeling. Acromioclavicular joint is normally aligned. Included ribs are intact. Mildly heterogeneous appearance of the included vertebral bodies. Soft tissues: Moderate glenohumeral effusion. Probable small subacromial/subdeltoid bursal effusion. Rotator cuff musculature is normal in bulk. The tendons, ligaments, labrum, and articular cartilages are not well evaluated with CT. Heart is enlarged. Included lungs are clear. Increased number of small axillary lymph nodes, nonspecific. IMPRESSION: 1. Moderate to severe glenohumeral osteoarthrosis with chronic remodeling and flattening of the humeral head articular surface and small area of irregularity of the inferior glenoid. Findings may be related to prior insult such as infection or osteonecrosis with superimposed secondary degenerative changes. No acute osseous erosion is seen. 2. Moderate glenohumeral effusion. Small subacromial/subdeltoid bursal effusion. 3. Cardiomegaly. Approved by: Mauricio Davila M.D. on 11/21/2024 at 14:55
[2024-11-21 02:00] VITALS: BP 123/73; PULSE 78; RESP 16; TEMP 36.1; O2SAT 94
[2024-11-21] MEDS: HYDROMORPHONE 2 MG INJ IV ×11 (02:22→23:34)
[2024-11-21 08:00] VITALS: BP 120/72; PULSE 74; RESP 18; TEMP 36.6; O2SAT 94
[2024-11-21] MEDS: OXYCODONE IR 5 MG TABLET PO ×3 (08:15→15:44)
[2024-11-21] MEDS: ACETAMINOPHEN 325 MG TABLET 650 MG PO ×2 (08:15→15:44)
[2024-11-21] MEDS: DULOXETINE 30 MG CAPSULE 60 MG PO (08:16)
[2024-11-21] MEDS: SODIUM CHLORIDE 0.9% FLUSH 10 ML IV (08:16)
[2024-11-21] MEDS: SODIUM CHLORIDE 0.9% 1,000 ML 100 ML IV ×2 (08:56→19:22)
--- NOTE | 2024-11-21 12:06 | P.PN_ITS ---
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 Patient has been seen multiple times in the emergency room and discharged after IV fluids analgesics and oxygen. Was seen by the emergency department 2 days prior to this admission, however symptoms have not abated and patient was referred for observation admission Hospital course: 11/19-11/21 pain reducing with IV fluids and analgesia migrating from lower back and legs to left upper arm Benadryl may be helpful for histamine release Review of systems: No fever chills no headache diplopia or blurred vision no paresthesia or paresis No cough No shortness of breath No nausea vomiting abdominal pain diarrhea constipation No urinary symptoms Physical exam: Young male calm left upper extremity is contracted patient is massaging it HEENT unremarkable Neck no thyromegaly Heart rate and rhythm regular no murmurs Lungs clear from apices to bases Abdomen nontender bowel sounds present Extremities no edema Patient alert and oriented Assessment and plan: Sickle cell crisis: IV fluids, analgesics, nasal cannula oxygen, p.o. doxycycline DVT prophylaxis with enoxaparin Full code I spent 25 minutes in the evaluation of this patient Exam Vital Signs (past 8 hours): - 11/21/24 08:00 Temperature 97.9 F Pulse Rate 74 Respiratory Rate 18 Blood Pressure 120/72 Pulse Oximetry 94 Oxygen Flow Rate 0 Oxygen Delivery Method Room Air Oxygen Flow Rate 0 Objective Labs 11/20/24 08:41 11/20/24 08:41 [facility] Medical History Vitamin D deficiency PTSD (post-traumatic stress disorder) Depression Anxiety Seizure Anemia Avascular necrosis of bone Contracture, left elbow Contracture, left hand CVA (cerebral vascular accident) Sickle cell anemia Surgical History History of shoulder surgery 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 Family History Father Cancer Sickle cell trait Lupus Mother Sickle cell trait Brother Sickle cell trait Social History household members: significant other alcohol intake: never Assessment & Plan Time-Based Coding :: [TOTAL MINUTES] spent with patient and on the chart (including review of chart, obtaining history, exam, reviewing outside data, placing orders, documenting exam and treatment plan, and counseling patient) on [DATE].
[2024-11-21] MEDS: diphenhydrAMINE 50 MG/ML VIAL 25 MG IV ×3 (12:14→23:34)
--- NOTE | 2024-11-21 13:14 | CM.DPC ---
DCP Cont. Reviewed EMR and team rounds for status updates. Pt continues to have pain/nausea. Likely another 1-2 more days before medically stable for discharge.
[2024-11-21 14:00] VITALS: BP 117/74; PULSE 71; RESP 18; TEMP 36.6; O2SAT 94
--- NOTE | 2024-11-21 17:33 | PC.NURSE ---
Day shift: Patient stated increased pain today, especially to the L shoulder. He stated that he had previous infection a few years ago and had to have it drained. Notified MD, he ordered CT which showed some fluid accumulation in L shoulder. MD ordered consult to orthopedic surgery for evaluation. Blood cultures pending. Will continue to monitor.
[2024-11-21] MEDS: HYDROCODONE/ACET 10/325 TABLET 1 TAB PO (18:23)
[2024-11-21 20:00] VITALS: BP 114/74; PULSE 67; RESP 18; TEMP 36.3; O2SAT 93
--- NOTE | 2024-11-21 20:47 | PM.HP.1 ---
History of Present Illness History of Present Illness Date Patient Seen: 11/21/24 Time Patient Seen: 20:47 Date of Onset of Symptoms: 11/18/24 Chief complaint: sickle cell crisis Narrative: This is a 24-year-old gentleman who was admitted with sickle cell crisis. He has known significant sickle cell disease. He has a history of a prior left septic shoulder which has had a prior irrigation and debridement. He has a history of a stroke when he was an with a significant left upper extremity hemiparesis. He went into sickle cell crisis came to the emergency room and was admitted to the hospitalist service. He notes progressive worsening left shoulder pain. He has not had significant fevers since his admission. He has been treated some for his sickle cell disease. He notes that normally he does have some motion in the left shoulder. He had a previous history of a septic left shoulder but says that it did recover some function. He can use his left upper extremity a small amount as an assist device but notes significant impairment. He is having ongoing significant left shoulder pain. Has a history of a total hip arthroplasty which was an antibiotic spacer placed after an infection and sickle cell disease. At some point they said they might be able to put in hip arthroplasty. His hip surgery was done in [place]. [facility] Medical History Vitamin D deficiency PTSD (post-traumatic stress disorder) Depression Anxiety Seizure Anemia Avascular necrosis of bone Contracture, left elbow Contracture, left hand CVA (cerebral vascular accident) Sickle cell anemia Surgical History History of shoulder surgery 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 Family History Father Cancer Sickle cell trait Lupus Mother Sickle cell trait Brother Sickle cell trait Social History household members: significant other alcohol intake: never Meds Home Medications and Allergies Home Medications Medication Instructions Recorded Confirmed Type hydromorphone 2 mg tablet 2 mg PO Q6H PRN pain #14 tabs 09/30/24 11/18/24 Rx (Dilaudid) duloxetine 60 mg capsule,delayed 60 mg PO DAILY #60 caps 10/02/24 11/18/24 Rx release hydroxyurea (sickle cell) 200 mg 200 mg PO DAILY #90 caps 10/02/24 11/18/24 Rx capsule ondansetron 4 mg disintegrating 4 mg PO Q8H PRN nausea and 10/02/24 11/18/24 Rx tablet vomiting #20 tabs penicillin V potassium 250 mg 250 mg PO BID sickle cell #90 tabs 10/02/24 11/18/24 Rx tablet oxycodone-acetaminophen 5 mg-325 1 tab PO Q4-6H PRN pain #30 tabs 10/23/24 11/18/24 Rx mg tablet (Percocet) cholecalciferol (vitamin D3) 1,250 1,250 mcg PO QWEEK 6 weeks #6 caps 10/25/24 11/18/24 Rx mcg (50,000 unit) capsule cholecalciferol (vitamin D3) 10 20 mcg (2 x 10 mcg (400 unit)) PO 10/25/24 11/18/24 Rx mcg (400 unit) capsule DAILY #180 caps hydrocodone 5 mg-acetaminophen 325 1 tab PO Q6H PRN pain #14 tabs 11/02/24 11/18/24 Rx mg tablet tramadol 50 mg tablet 50 mg PO Q8H PRN pain #20 tabs 11/12/24 11/18/24 Rx albuterol sulfate 90 mcg/actuation 2 puff inhalation Q6H PRN wheezing 11/18/24 11/18/24 History aerosol inhaler naloxone 4 mg/actuation nasal spray 1 spray intranasal PRN PRN Opioid 11/18/24 11/18/24 History Overdose Allergies Allergy/AdvReac Type Severity Reaction Status Date / Time No Known Drug Allergies Allergy Verified 10/23/24 07:54 Review of Systems Review of Systems Narrative: He denies recent fever chills Exam Vital Signs (past 8 hours): - 11/21/24 14:00 Temperature 97.9 F Pulse Rate 71 Respiratory Rate 18 Blood Pressure 117/74 Pulse Oximetry 94 Oxygen Flow Rate 0 Oxygen Delivery Method Room Air Oxygen Flow Rate 0 Narrative Exam Narrative: He is resting comfortably in bed, he is alert and oriented, he is able to sit up without difficulty, examination of the left upper extremity is remarkable for significant swelling in the left shoulder region, there is a healed anterior incision and posterior incision, there was substantial swelling in the left shoulder in the subacromial space, his range of motion shows he lacks about 10? 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 Assessment & Plan Assessment and plan (1) Sickle cell anemia with crisis: Status: Acute (2) Vitamin D deficiency: Status: Acute (3) Sickle cell anemia: Qualifiers: Sickle-cell associated disorders: with unspecified crisis Qualified Code(s): D57.00 - Hb-SS disease with crisis, unspecified Status: Acute (4) Shoulder arthritis: Status: Acute (5) Shoulder joint effusion: Status: Acute Plan He has significant swelling in his left shoulder area. He has substantial destruction of his left glenohumeral joint. Has a history of a prior left septic shoulder which has undergone previous irrigation and debridement. He has sickle cell disease and is having an acute sickle cell crisis. CT scan shows a significant effusion in his left shoulder. I have recommended an aspiration of his left shoulder. He has underlying severe arthritic change in the shoulder due to his previous sickle cell disease and prior infection. Procedure note: Consent was obtained his left arm was prepped with ChloraPrep. A 22 gauge inch and a half needle was used to aspirate his left shoulder approximately 6 cc of clear appearing synovial fluid was removed. It was not purulent or cloudy. It was sent for stat Gram stain culture and sensitivity, cell count and crystals. It did not appear to be acutely infected. If it is positive on the Gram stain or is growing bacteria he maybe a candidate for irrigation and debridement. He tolerated the procedure well. Complications none. Time-Based Coding :: [TOTAL MINUTES] spent with patient and on the chart (including review of chart, obtaining history, exam, reviewing outside data, placing orders, documenting exam and treatment plan, and counseling patient) on [DATE].
[2024-11-21 21:20] LABS: Body Fluid Red Blood Cells 2284 /uL; Body Fluid Tot Nucleated Cells 1635 /uL
[2024-11-21 21:24] LABS: Body Fluid Appearance SLIGHTLY CLOUDY; Body Fluid Clotted? NO CLOTS PRESENT; Body Fluid Color YELLOW
[2024-11-21 21:28] LABS: Crystals Body Fluid - IN-HOUSE NONE Present
[2024-11-21 21:53] LABS: Lymphocytes Body Fluid 9 %; MESO/MACRO/MONO Body Fluid 64 %; Neutrophils Body Fluid 27 %
[2024-11-22] MEDS: HYDROCODONE/ACET 10/325 TABLET 1 TAB PO ×4 (01:11→22:13)
[2024-11-22 02:00] VITALS: BP 128/82; PULSE 85; RESP 18; TEMP 36.4; O2SAT 96
[2024-11-22] MEDS: HYDROMORPHONE 2 MG INJ IV ×10 (02:28→23:06)
[2024-11-22] MEDS: SODIUM CHLORIDE 0.9% 1,000 ML 100 ML IV ×3 (04:36→23:55)
[2024-11-22] MEDS: DULOXETINE 30 MG CAPSULE 60 MG PO (08:04)
[2024-11-22] MEDS: SODIUM CHLORIDE 0.9% FLUSH 10 ML IV ×2 (08:04→20:07)
--- NOTE | 2024-11-22 08:15 | P.PN_ITS ---
Subjective Subjective Date Patient Seen: 11/22/24 Interval history: Chief complaint: Back pain and chest discomfort in sickle cell crisis typical and recurrent for this patient History of present illness: 24-year-old male with a history of sickle cell disease prior splenectomy and childhood stroke with left-sided hemiparesis left upper arm flexion contracture. Patient has been seen multiple times in the emergency room and discharged after IV fluids analgesics and oxygen. Was seen by the emergency department 2 days prior to this admission, however symptoms have not abated and patient was referred for observation admission Hospital course: 11/19-11/20: Pain reducing with IV fluids and analgesia migrating from lower back and legs to left upper arm Benadryl may be helpful for histamine release 11/21: Patient reported shoulder pain which has been infected and has had an incision in surgery previously remotely. CT of the left shoulder was ordered did not show any osseous acute abnormality but a moderate glenohumeral effusion and small subacromial subdeltoid bursal effusion IMPRESSION: 1. Moderate to severe glenohumeral osteoarthrosis with chronic remodeling and flattening of the humeral head articular surface and small area of irregularity of the inferior glenoid. Findings may be related to prior insult such as infection or osteonecrosis with superimposed secondary degenerative changes. No acute osseous erosion is seen. 2. Moderate glenohumeral effusion. Small subacromial/subdeltoid bursal effusion. Patient is seen by orthopedic surgeon below as an except of joint aspiration procedure performed 11/21: Consent was obtained his left arm was prepped with ChloraPrep. A 22 gauge inch and a half needle was used to aspirate his left shoulder approximately 6 cc of clear appearing synovial fluid was removed. It was not purulent or cloudy. It was sent for stat Gram stain culture and sensitivity, cell count and crystals. It did not appear to be acutely infected. If it is positive on the Gram stain or is growing bacteria he maybe a candidate for irrigation and debridement. He tolerated the procedure well. Complications none. 11/22: G stain of the aspirate shows occasional white blood cell and no organisms culture is pending. Colchicine initiated study demonstrates reduction of inflammation in inflammatory proteins in sickle cell disease Review of systems: No fever chills no headache diplopia or blurred vision no paresthesia or paresis No cough No shortness of breath No nausea vomiting abdominal pain diarrhea constipation No urinary symptoms Physical exam: Young male calm left upper extremity is contracted patient is massaging it HEENT unremarkable Neck no thyromegaly Heart rate and rhythm regular no murmurs Lungs clear from apices to bases Abdomen nontender bowel sounds present Extremities no edema Patient alert and oriented Assessment and plan: Sickle cell crisis: IV fluids, analgesics, nasal cannula oxygen, p.o. doxycycline Trial of colchicine Left shoulder joint effusion status post sterile needle aspiration by Orthopedic surgery DVT prophylaxis with enoxaparin Full code I spent 35 minutes in the evaluation of this patient Exam Vital Signs (past 8 hours): - 11/22/24 02:00 Temperature 97.5 F L Pulse Rate 85 Respiratory Rate 18 Blood Pressure 128/82 Pulse Oximetry 96 Oxygen Flow Rate 0 Oxygen Delivery Method Room Air Oxygen Flow Rate 0 Objective Labs 11/22/24 08:29 11/22/24 08:29 Labs: Laboratory Results - last 24 hr 11/21/24 20:25 Fluid Color Yellow Fluid Appearance Slightly cloudy Fluid RBC 2284 Fld Tot Nucleated Cell 1635 Fluid Neutrophils % 27 Fluid Lymphocytes % 9 Fluid [place]/Macro/[place] % 64 Fluid Crystals None present Body Fluid Clot No clots present [facility] Medical History Vitamin D deficiency PTSD (post-traumatic stress disorder) Depression Anxiety Seizure Anemia Avascular necrosis of bone Contracture, left elbow Contracture, left hand CVA (cerebral vascular accident) Sickle cell anemia Surgical History History of shoulder surgery 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 Family History Father Cancer Sickle cell trait Lupus Mother Sickle cell trait Brother Sickle cell trait Social History household members: significant other alcohol intake: never Assessment & Plan Time-Based Coding :: [TOTAL MINUTES] spent with patient and on the chart (including review of chart, obtaining history, exam, reviewing outside data, placing orders, documenting exam and treatment plan, and counseling patient) on [DATE].
[2024-11-22 09:06] LABS: Alanine Aminotransferase 31 IU/L (<50); Albumin 4.2 g/dL (3.5-5.0); Albumin Globulin Ratio 1.1 (1.0-2.8); Alkaline Phosphatase 93 U/L (38-126); Aspartate Aminotransferase 59 IU/L (17-59); BUN Creatinine Ratio 5.5 (6-22); Bilirubin Total 4.6 mg/dL (0.2-1.3); Blood Urea Nitrogen 3 mg/dL (9-20); Carbon Dioxide 29 mmol/L (22-32); Chloride 98 mmol/L (98-107); Estimated Glomerular Filt Rate > 60 mL/min (>60); Globulin 3.7 g/dL (1.7-4.1); Glucose 86 mg/dL (70-100); HEMOLYSIS < 15 (0-50); Potassium 4.1 mmol/L (3.4-5.1); Sodium 135 mmol/L (137-145); Total Protein 7.9 g/dL (6.3-8.2)
[2024-11-22 09:30] LABS: Hematocrit 24.4 % (41-53); Hemoglobin 8.4 g/dL (13.5-17.5); Mean Corpuscular HGB Conc 34.4 % (30-36); Mean Corpuscular Hemoglobin 26.1 PG (26-34); Mean Corpuscular Volume 75.8 fL (80-100); Platelet Count 268 X10^3/uL (150-400); Red Blood Cell Count 3.22 X10^6/uL (4.5-5.9); Red Cell Distribution Width 21.8 % (11.6-14.8); White Blood Cell Count 14.3 X10^3/uL (4.5-11.0)
[2024-11-22 09:35] LABS: Add Manual Diff / Slide Review YES
[2024-11-22 09:52] LABS: Neutrophils Absolute Manual 8294 /uL (3000-5900); Nucleated Red Blood Cells 7 #/Diff; Total Cells Counted 100
[2024-11-22 09:54] LABS: Anisocytosis 2+; Microcytosis 1+; Platelet Estimate Adequate on smear; Polychromasia 2+; Target Cells 1+
[2024-11-22 09:56] LABS: Sickle Cells 1+
[2024-11-22] MEDS: DOXYCYCLINE HYCLATE 100 MG TABLET PO ×2 (11:52→20:07)
[2024-11-22] MEDS: COLCHICINE 0.6 MG TABLET PO ×2 (11:52→20:07)
[2024-11-22 12:28] VITALS: BP 108/77; PULSE 69; RESP 16; TEMP 36.2; O2SAT 96
--- NOTE | 2024-11-22 17:59 | PM.PN.1 ---
Subjective Subjective Interval history: Pleasant 24 year old male with a complicated past medical history. He was admitted with sickle cell crisis, he has known significant sickle cell disease. He has a history of a prior left septic shoulder which has had a prior irrigation and debridement. He has a history of a stroke when he was an with a significant left upper extremity hemiparesis. He went into sickle cell crisis came to the emergency room and was admitted to the hospitalist service. He notes progressive worsening left shoulder pain. He has not had significant fevers since his admission. He has been treated some for his sickle cell disease. He notes that normally he does have some motion in the left shoulder. He had a previous history of a septic left shoulder but says that it did recover some function. He can use his left upper extremity a small amount as an assist device but notes significant impairment. He is having ongoing significant left shoulder pain. Has a history of a total hip arthroplasty which was an antibiotic spacer placed after an infection and sickle cell disease. At some point they said they might be able to put in hip arthroplasty. His hip surgery was done in [place]. He underwent left shoulder joint aspiration w/ Dr. Guy yesterday. He notes no improvement but also no worsening in his L shoulder pain since then. Aerobic and anaerobic synovial fluid cultures obtained yesterday are still pending. Final Gram stain demonstrates no organisms but occasional white blood cells. He denies any fevers, clamminess or chills today. Exam Vital Signs (past 8 hours): - 11/22/24 12:28 Temperature 97.1 F L Pulse Rate 69 Respiratory Rate 16 Blood Pressure 108/77 Pulse Oximetry 96 Oxygen Delivery Method Room Air Oxygen Flow Rate 0 Narrative Exam Narrative: He is resting comfortably in bed, he is alert and oriented, he is able to sit up without difficulty, examination of the left upper extremity is remarkable for swelling in the left shoulder region, there is a healed anterior incision and posterior incision. He is very tender to palpation over the anterior shoulder, moderate tenderness to palpation in the posterior shoulder as well. His range of motion shows he lacks about 10? 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 Sensation is intact to light touch throughout the LUE. Objective Labs 11/22/24 08:29 11/22/24 08:29 Labs: Laboratory Results - last 24 hr 11/21/24 11/22/24 20:25 08:29 WBC 14.3 H RBC 3.22 L Hgb 8.4 L Hct 24.4 L MCV 75.8 L MCH 26.1 MCHC 34.4 RDW 21.8 H Plt Count 268 Neut % (Auto) Not Reportable Lymph % (Auto) Not Reportable [place] % (Auto) Not Reportable Eos % (Auto) Not Reportable Baso % (Auto) Not Reportable Lymph # (Auto) Not Reportable [place] # (Auto) Not Reportable Baso # (Auto) Not Reportable Total Counted 100 Seg Neutrophils % 56.0 Band Neutrophils % 2.0 L Lymphocytes % (Manual) 28.0 Monocytes % (Manual) 14.0 H Neutrophils # (Manual) 8294 H Nucleated RBCs 7 H Platelet Estimate Adequate on smear RBC Morphology See below Polychromasia 2+ H Anisocytosis 2+ H Microcytosis 1+ H Sickle Cells 1+ H Target Cells 1+ H Sodium 135 L Potassium 4.1 Chloride 98 Carbon Dioxide 29 BUN 3 L Creatinine 0.55 L Estimated GFR > 60 BUN/Creatinine Ratio 5.5 L Glucose 86 Calcium 9.0 Total Bilirubin 4.6 H AST 59 ALT 31 Alkaline Phosphatase 93 Total Protein 7.9 Albumin 4.2 Globulin 3.7 Albumin/Globulin Ratio 1.1 Fluid Color Yellow Fluid Appearance Slightly cloudy Fluid RBC 2284 Fld Tot Nucleated Cell 1635 Fluid Neutrophils % 27 Fluid Lymphocytes % 9 Fluid [place]/Macro/[place] % 64 Fluid Crystals None present Body Fluid Clot No clots present [facility] Medical History Vitamin D deficiency PTSD (post-traumatic stress disorder) Depression Anxiety Seizure Anemia Avascular necrosis of bone Contracture, left elbow Contracture, left hand CVA (cerebral vascular accident) Sickle cell anemia Surgical History History of shoulder surgery 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 Family History Father Cancer Sickle cell trait Lupus Mother Sickle cell trait Brother Sickle cell trait Social History household members: significant other alcohol intake: never Assessment & Plan Assessment & Plan narrative: He has swelling in his left shoulder area. He has substantial destruction of his left glenohumeral joint. Has a history of a prior left septic shoulder which has undergone previous irrigation and debridement. He has sickle cell disease and is having an acute sickle cell crisis. CT scan shows an effusion in his left shoulder, he underwent joint aspiration of his left shoulder yesterday. He has underlying severe arthritic change in the shoulder due to his previous sickle cell disease and prior infection. We will continue to follow/monitor his symptoms. Pain management per primary team. Will continue to monitor vitals, VSS today. Will continue to follow for synovial fluid culture results. Okay to do some PT as tolerated. All of his immediate questions and concerns about his left shoulder were addressed to his satisfaction today and he is in agreement with the treatment plan. Call our office if any questions or concerns arise. Time-Based Coding :: [TOTAL MINUTES] spent with patient and on the chart (including review of chart, obtaining history, exam, reviewing outside data, placing orders, documenting exam and treatment plan, and counseling patient) on [DATE].
[2024-11-22 18:00] VITALS: BP 111/63; PULSE 73; RESP 14; TEMP 36.2; O2SAT 99
[2024-11-22 20:00] VITALS: BP 110/69; PULSE 77; RESP 18; TEMP 36.3; O2SAT 97
[2024-11-23] MEDS: HYDROMORPHONE 2 MG INJ IV ×9 (02:36→22:30)
[2024-11-23] MEDS: HYDROCODONE/ACET 10/325 TABLET 1 TAB PO ×2 (04:04→21:21)
[2024-11-23] MEDS: diphenhydrAMINE 50 MG/ML VIAL 25 MG IV (04:04)
[2024-11-23 07:50] VITALS: BP 106/67; PULSE 76; RESP 16; TEMP 35.9; O2SAT 97
--- NOTE | 2024-11-23 08:17 | P.PN_ITS ---
Subjective Subjective Date Patient Seen: 11/23/24 Interval history: Chief complaint: Back pain and chest discomfort in sickle cell crisis typical and recurrent for this patient History of present illness: 24-year-old male with a history of sickle cell disease prior splenectomy and childhood stroke with left-sided hemiparesis left upper arm flexion contracture. Patient has been seen multiple times in the emergency room and discharged after IV fluids analgesics and oxygen. Was seen by the emergency department 2 days prior to this admission, however symptoms have not abated and patient was referred for observation admission Hospital course: 11/19-11/20: Pain reducing with IV fluids and analgesia migrating from lower back and legs to left upper arm Benadryl may be helpful for histamine release 11/21: Patient reported shoulder pain which has been infected and has had an incision in surgery previously remotely. CT of the left shoulder was ordered did not show any osseous acute abnormality but a moderate glenohumeral effusion and small subacromial subdeltoid bursal effusion IMPRESSION: 1. Moderate to severe glenohumeral osteoarthrosis with chronic remodeling and flattening of the humeral head articular surface and small area of irregularity of the inferior glenoid. Findings may be related to prior insult such as infection or osteonecrosis with superimposed secondary degenerative changes. No acute osseous erosion is seen. 2. Moderate glenohumeral effusion. Small subacromial/subdeltoid bursal effusion. Patient is seen by orthopedic surgeon below as an except of joint aspiration procedure performed 11/21: Consent was obtained his left arm was prepped with ChloraPrep. A 22 gauge inch and a half needle was used to aspirate his left shoulder approximately 6 cc of clear appearing synovial fluid was removed. It was not purulent or cloudy. It was sent for stat Gram stain culture and sensitivity, cell count and crystals. It did not appear to be acutely infected. If it is positive on the Gram stain or is growing bacteria he maybe a candidate for irrigation and debridement. He tolerated the procedure well. Complications none. 11/22: G stain of the aspirate shows occasional white blood cell and no organisms culture is pending. Colchicine initiated study demonstrates reduction of inflammation in inflammatory proteins in sickle cell disease 11/23: Patient is noncompliant with nasal cannula oxygen Patient is still having same amount of shoulder pain no sweats or chills no change in examination of the shoulder bilirubin escalated to 4.6 from 3.1 on admission synovial fluid no growth in 48 hours after aspiration Review of systems: No fever chills no headache diplopia or blurred vision no paresthesia or paresis No cough No shortness of breath No nausea vomiting abdominal pain diarrhea constipation No urinary symptoms Physical exam: Young male calm left upper extremity is contracted patient is massaging it HEENT scleral icterus Neck no thyromegaly Heart rate and rhythm regular no murmurs Lungs clear from apices to bases Abdomen nontender bowel sounds present Extremities no edema Patient alert and oriented Assessment and plan: Sickle cell crisis: IV fluids, analgesics, nasal cannula oxygen, p.o. doxycycline White count 14 and bilirubin escalated to 4.6 from 3.1 we will continue IV fluids analgesics and oxygen encouraged compliance with oxygen Trial of colchicine being tolerated Left shoulder joint effusion status post sterile needle aspiration by Orthopedic surgery no growth after 48 hours DVT prophylaxis with enoxaparin Full code I spent 35 minutes in the evaluation of this patient Exam Vital Signs (past 8 hours): - 11/23/24 07:50 Temperature 96.7 F L Pulse Rate 76 Respiratory Rate 16 Blood Pressure 106/67 Pulse Oximetry 97 Oxygen Delivery Method Room Air Oxygen Flow Rate 0 Objective Labs 11/22/24 08:29 11/22/24 08:29 Labs: Laboratory Results - last 24 hr 11/22/24 08:29 WBC 14.3 H RBC 3.22 L Hgb 8.4 L Hct 24.4 L MCV 75.8 L MCH 26.1 MCHC 34.4 RDW 21.8 H Plt Count 268 Neut % (Auto) Not Reportable Lymph % (Auto) Not Reportable [place] % (Auto) Not Reportable Eos % (Auto) Not Reportable Baso % (Auto) Not Reportable Lymph # (Auto) Not Reportable [place] # (Auto) Not Reportable Baso # (Auto) Not Reportable Total Counted 100 Seg Neutrophils % 56.0 Band Neutrophils % 2.0 L Lymphocytes % (Manual) 28.0 Monocytes % (Manual) 14.0 H Neutrophils # (Manual) 8294 H Nucleated RBCs 7 H Platelet Estimate Adequate on smear RBC Morphology See below Polychromasia 2+ H Anisocytosis 2+ H Microcytosis 1+ H Sickle Cells 1+ H Target Cells 1+ H Sodium 135 L Potassium 4.1 Chloride 98 Carbon Dioxide 29 BUN 3 L Creatinine 0.55 L Estimated GFR > 60 BUN/Creatinine Ratio 5.5 L Glucose 86 Calcium 9.0 Total Bilirubin 4.6 H AST 59 ALT 31 Alkaline Phosphatase 93 Total Protein 7.9 Albumin 4.2 Globulin 3.7 Albumin/Globulin Ratio 1.1 PFSH Medical History Vitamin D deficiency PTSD (post-traumatic stress disorder) Depression Anxiety Seizure Anemia Avascular necrosis of bone Contracture, left elbow Contracture, left hand CVA (cerebral vascular accident) Sickle cell anemia Surgical History History of shoulder surgery 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 Family History Father Cancer Sickle cell trait Lupus Mother Sickle cell trait Brother Sickle cell trait Social History household members: significant other alcohol intake: never Assessment & Plan Time-Based Coding :: [TOTAL MINUTES] spent with patient and on the chart (including review of chart, obtaining history, exam, reviewing outside data, placing orders, documenting exam and treatment plan, and counseling patient) on [DATE].
--- NOTE | 2024-11-23 09:09 | P.PN_ITS ---
Subjective Subjective Interval history: Pleasant 24 year old male with a complicated past medical history, he has a history of splenectomy. He was admitted with sickle cell crisis, he has known significant sickle cell disease. He has a history of a prior left septic shoulder which has had a prior irrigation and debridement. 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 He went into sickle cell crisis came to the emergency room and was admitted to the hospitalist service. He notes progressive worsening left shoulder pain. He has not had significant fevers since his admission. He has been treated some for his sickle cell disease. He notes that normally he does have some motion in the left shoulder. He had a previous history of a septic left shoulder but says that it did recover some function. He can use his left upper extremity a small amount as an assist device but notes significant impairment. He is having ongoing significant left shoulder pain. Has a history of a total hip arthroplasty which was an antibiotic spacer placed after an infection and sickle cell disease. At some point they said they might be able to put in hip arthroplasty. His hip surgery was done in [place]. He underwent left shoulder joint aspiration w/ Dr. Guy on 11/21. He notes no improvement but also no worsening in his L shoulder pain since then, pain is the same today as it was yesterday. States most of the pain is in the anterior aspect of his shoulder. Aerobic and anaerobic synovial fluid cultures obtained 11/21 show preliminary no growth. Final Gram stain demonstrates no organisms but occasional white blood cells. WBC elevated on 11/22 labs at 14.3, continues to trend up slightly. He denies any fevers, clamminess or chills today. Exam Vital Signs (past 8 hours): - 11/23/24 07:50 Temperature 96.7 F L Pulse Rate 76 Respiratory Rate 16 Blood Pressure 106/67 Pulse Oximetry 97 Oxygen Delivery Method Room Air Oxygen Flow Rate 0 Narrative Exam Narrative: He is resting comfortably in bed, he is alert and oriented, he is able to sit up without difficulty, examination of the left upper extremity is remarkable for swelling in the left shoulder region, there is a healed anterior incision and posterior incision. He is very tender to palpation over the anterior shoulder, moderate tenderness to palpation in the posterior shoulder as well. His range of motion shows he lacks about 10? 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 Sensation is intact to light touch throughout the LUE. Resp Effort & Inspection: normal respiratory effort and able to speak in complete sentences Objective Labs 11/22/24 08:29 11/22/24 08:29 Labs: Laboratory Results - last 24 hr 11/22/24 08:29 WBC 14.3 H RBC 3.22 L Hgb 8.4 L Hct 24.4 L MCV 75.8 L MCH 26.1 MCHC 34.4 RDW 21.8 H Plt Count 268 Neut % (Auto) Not Reportable Lymph % (Auto) Not Reportable [place] % (Auto) Not Reportable Eos % (Auto) Not Reportable Baso % (Auto) Not Reportable Lymph # (Auto) Not Reportable [place] # (Auto) Not Reportable Baso # (Auto) Not Reportable Total Counted 100 Seg Neutrophils % 56.0 Band Neutrophils % 2.0 L Lymphocytes % (Manual) 28.0 Monocytes % (Manual) 14.0 H Neutrophils # (Manual) 8294 H Nucleated RBCs 7 H Platelet Estimate Adequate on smear RBC Morphology See below Polychromasia 2+ H Anisocytosis 2+ H Microcytosis 1+ H Sickle Cells 1+ H Target Cells 1+ H PFSH Medical History Vitamin D deficiency PTSD (post-traumatic stress disorder) Depression Anxiety Seizure Anemia Avascular necrosis of bone Contracture, left elbow Contracture, left hand CVA (cerebral vascular accident) Sickle cell anemia Surgical History History of shoulder surgery 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 Family History Father Cancer Sickle cell trait Lupus Mother Sickle cell trait Brother Sickle cell trait Social History household members: significant other alcohol intake: never Assessment & Plan Assessment & Plan narrative: He has swelling in his left shoulder area. He has substantial destruction of his left glenohumeral joint. Has a history of a prior left septic shoulder which has undergone previous irrigation and debridement. He has sickle cell disease and is having an acute sickle cell crisis. CT scan shows an effusion in his left shoulder, he underwent joint aspiration of his left shoulder 11/21. He has underlying severe arthritic change in the shoulder due to his previous sickle cell disease and prior infection. We will continue to follow/monitor his symptoms. Pain management per primary team. Will continue to monitor vitals, VSS today. Temp: 96.7 this AM. Will continue to follow for synovial fluid culture results. Aerobic and anaerobic synovial fluid cultures obtained 11/21 show preliminary no growth. Okay to do some PT as tolerated. All of his immediate questions and concerns about his left shoulder were addressed to his satisfaction today and he is in agreement with the treatment plan. Call our office if any questions or concerns arise. Time-Based Coding :: [TOTAL MINUTES] spent with patient and on the chart (including review of chart, obtaining history, exam, reviewing outside data, placing orders, documenting exam and treatment plan, and counseling patient) on [DATE].
[2024-11-23] MEDS: DULOXETINE 30 MG CAPSULE 60 MG PO (09:20)
[2024-11-23] MEDS: COLCHICINE 0.6 MG TABLET PO ×2 (09:20→20:10)
[2024-11-23] MEDS: DOXYCYCLINE HYCLATE 100 MG TABLET PO ×2 (09:20→20:10)
[2024-11-23] MEDS: SODIUM CHLORIDE 0.9% FLUSH 10 ML IV (09:21)
[2024-11-23] MEDS: SODIUM CHLORIDE 0.9% 1,000 ML 100 ML IV ×2 (10:28→20:10)
--- NOTE | 2024-11-23 10:49 | PT-IP ANOTE ---
PT eval received. Per hospitalist during rounds meeting, d/c PT eval. pt has shoulder contracture and not appropriate for PT. per nurse, pt is able to ambulate with staff. will d/c PT eval order.
[2024-11-23 11:15] VITALS: BP 116/77; PULSE 77; RESP 20; TEMP 36.1; O2SAT 99
[2024-11-23 12:00] VITALS: BP 121/68; PULSE 67; RESP 19; TEMP 36.2; O2SAT 99
--- NOTE | 2024-11-23 17:23 | PC.NURSE ---
Day shift: This commercial insurance underwriter called into [id number] and Pt stated Is there any way I can get a different doctor? Explained to Pt that there is no other MD available. I did encourage him to call his PCP and ask them what he should do. Dr Quan has been made aware and chargeback specialist Tanika is aware and plans to talk with Pt as well.
[2024-11-23 19:02] VITALS: BP 119/72; PULSE 76; RESP 20; TEMP 36.2; O2SAT 98
--- NOTE | 2024-11-23 20:33 | PM.PN.1 ---
Subjective Subjective Interval history: He notes his left shoulder is a little better. He is having a new pain in his right shoulder on the posterior aspect of his deltoid and brachium, he has not having specific glenohumeral joint pain, his left shoulder is moving distal little better. Exam Vital Signs (past 8 hours): - 11/23/24 19:02 Temperature 97.2 F L Pulse Rate 76 Respiratory Rate 20 Blood Pressure 119/72 Pulse Oximetry 98 Oxygen Delivery Method Room Air Oxygen Flow Rate 0 Narrative Exam Narrative: He Is resting in bed comfortably, Left arm has residual swelling over the subacromial space, has slightly improved range of motion in comparison to yesterday, does have restricted range motion both in the elbow and in the left wrist and hand which is chronic His right arm he has some swelling along the posterior aspect of his brachium he is minimal pain with internal and external rotation of his right shoulder, he is relatively nontender in the region of his deltoid and subacromial space, skin is intact, neurologically intact distally in the right hand Objective Labs 11/22/24 08:29 11/22/24 08:29 [facility] Medical History Vitamin D deficiency PTSD (post-traumatic stress disorder) Depression Anxiety Seizure Anemia Avascular necrosis of bone Contracture, left elbow Contracture, left hand CVA (cerebral vascular accident) Sickle cell anemia Surgical History History of shoulder surgery 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 Family History Father Cancer Sickle cell trait Lupus Mother Sickle cell trait Brother Sickle cell trait Social History household members: significant other alcohol intake: never Assessment & Plan Assessment and plan (1) Shoulder joint effusion: Status: Acute (2) Shoulder arthritis: Status: Acute (3) Sickle cell anemia with crisis: Status: Acute (4) Right arm pain: Status: Acute Plan His left shoulder does appear to be improving some in comparison to yesterday. His white count is elevated to 14 which is up from yesterday. He has a new complaint of right shoulder brachium pain. He does have some slight swelling in that area. He has been afebrile. I recommend that we continue to watch him clinically. His cultures are no growth from the left shoulder area. G stain did not show any organisms. He needs daily white blood cell counts. Time-Based Coding :: [TOTAL MINUTES] spent with patient and on the chart (including review of chart, obtaining history, exam, reviewing outside data, placing orders, documenting exam and treatment plan, and counseling patient) on [DATE].
[2024-11-23 20:37] VITALS: BP 113/68; PULSE 68; RESP 18; TEMP 36.3; O2SAT 100
[2024-11-24] MEDS: HYDROMORPHONE 2 MG INJ IV ×8 (01:04→17:34)
[2024-11-24] MEDS: HYDROCODONE/ACET 10/325 TABLET 1 TAB PO ×3 (01:25→16:25)
[2024-11-24 02:14] VITALS: BP 117/69; PULSE 71; RESP 16; TEMP 36.2; O2SAT 95
[2024-11-24] MEDS: SODIUM CHLORIDE 0.9% 1,000 ML 100 ML IV ×2 (05:51→16:05)
[2024-11-24 07:48] VITALS: BP 105/70; PULSE 62; RESP 16; TEMP 36.1; O2SAT 98
[2024-11-24] MEDS: COLCHICINE 0.6 MG TABLET PO (08:27)
[2024-11-24] MEDS: DOXYCYCLINE HYCLATE 100 MG TABLET PO (08:27)
[2024-11-24] MEDS: DULOXETINE 30 MG CAPSULE 60 MG PO (08:27)
[2024-11-24 09:56] LABS: Hematocrit 23.2 % (41-53); Hemoglobin 7.9 g/dL (13.5-17.5); Mean Corpuscular HGB Conc 34.2 % (30-36); Mean Corpuscular Hemoglobin 26.3 PG (26-34); Platelet Count 230 X10^3/uL (150-400); Red Blood Cell Count 3.01 X10^6/uL (4.5-5.9); Red Cell Distribution Width 20.7 % (11.6-14.8); White Blood Cell Count 10.1 X10^3/uL (4.5-11.0)
[2024-11-24 10:04] LABS: Add Manual Diff / Slide Review YES; Alanine Aminotransferase 31 IU/L (<50); Albumin 4.2 g/dL (3.5-5.0); Albumin Globulin Ratio 1.2 (1.0-2.8); Alkaline Phosphatase 109 U/L (38-126); Aspartate Aminotransferase 56 IU/L (17-59); Bilirubin Total 3.5 mg/dL (0.2-1.3); Blood Urea Nitrogen 6 mg/dL (9-20); Calcium 9.1 mg/dL (8.4-10.2); Carbon Dioxide 26 mmol/L (22-32); Chloride 101 mmol/L (98-107); Estimated Glomerular Filt Rate > 60 mL/min (>60); Globulin 3.4 g/dL (1.7-4.1); Glucose 79 mg/dL (70-100); HEMOLYSIS < 15 (0-50); Potassium 4.1 mmol/L (3.4-5.1); Sodium 137 mmol/L (137-145); Total Protein 7.6 g/dL (6.3-8.2)
[2024-11-24] MEDS: SODIUM CHLORIDE 0.9% FLUSH 10 ML IV (10:46)
[2024-11-24 10:47] LABS: Neutrophils Absolute Manual 5050 /uL (3000-5900); Nucleated Red Blood Cells 4 #/Diff; Total Cells Counted 100
[2024-11-24 10:48] LABS: Anisocytosis 1+; Ovalocytes 1+; Sickle Cells 2+
[2024-11-24 10:49] LABS: Target Cells 1+
[2024-11-24 10:50] LABS: Microcytosis 1+
--- NOTE | 2024-11-24 15:47 | PM.PN.1 ---
Subjective Subjective Date Patient Seen: 11/24/24 Interval history: Chief complaint: Back pain and left shoulder and right posterior upper arm pain in sickle cell crisis typical and recurrent for this patient History of present illness: 24-year-old male with a history of sickle cell disease prior splenectomy and childhood stroke with left-sided hemiparesis left upper arm flexion contracture. Patient has been seen multiple times in the emergency room and discharged after IV fluids analgesics and oxygen. Was seen by the emergency department 2 days prior to this admission, however symptoms have not abated and patient was referred for observation admission Hospital course: 11/19-11/20: Pain reducing with IV fluids and analgesia migrating from lower back and legs to left upper arm Benadryl may be helpful for histamine release 11/21: Patient reported shoulder pain which has been infected and has had an incision in surgery previously remotely. CT of the left shoulder was ordered did not show any osseous acute abnormality but a moderate glenohumeral effusion and small subacromial subdeltoid bursal effusion IMPRESSION: 1. Moderate to severe glenohumeral osteoarthrosis with chronic remodeling and flattening of the humeral head articular surface and small area of irregularity of the inferior glenoid. Findings may be related to prior insult such as infection or osteonecrosis with superimposed secondary degenerative changes. No acute osseous erosion is seen. 2. Moderate glenohumeral effusion. Small subacromial/subdeltoid bursal effusion. Patient is seen by orthopedic surgeon below as an except of joint aspiration procedure performed 11/21: Consent was obtained his left arm was prepped with ChloraPrep. A 22 gauge inch and a half needle was used to aspirate his left shoulder approximately 6 cc of clear appearing synovial fluid was removed. It was not purulent or cloudy. It was sent for stat Gram stain culture and sensitivity, cell count and crystals. It did not appear to be acutely infected. If it is positive on the Gram stain or is growing bacteria he maybe a candidate for irrigation and debridement. He tolerated the procedure well. Complications none. 11/22: G stain of the aspirate shows occasional white blood cell and no organisms culture is pending. Colchicine initiated study demonstrates reduction of inflammation in inflammatory proteins in sickle cell disease 11/23: Patient is noncompliant with nasal cannula oxygen Patient is still having same amount of shoulder pain no sweats or chills no change in examination of the shoulder bilirubin escalated to 4.6 from 3.1 on admission synovial fluid no growth in 48 hours after aspiration 11/24: No fevers or chills pain is easing off white count is de-escalated from 14 down to 10 and bilirubin has de-escalated from 4.6 down to 3.5 Review of systems: No fever chills no headache diplopia or blurred vision no paresthesia or paresis No cough No shortness of breath No nausea vomiting abdominal pain diarrhea constipation No urinary symptoms Physical exam: Young male calm left upper extremity is contracted HEENT scleral icterus less noticeable Neck no thyromegaly Heart rate and rhythm regular no murmurs Lungs clear from apices to bases Abdomen nontender bowel sounds present Extremities lessened edema at posterior triceps deltoid region on the right Patient alert and oriented Assessment and plan: Sickle cell crisis: IV fluids, analgesics, nasal cannula oxygen, p.o. doxycycline Painful crisis easing off White count 14 de-escalated to 10 and bilirubin de-escalated from 4.6-3.1 we will continue IV fluids analgesics and oxygen encouraged compliance with oxygen Trial of colchicine being tolerated Left shoulder joint effusion status post sterile needle aspiration by Orthopedic surgery no growth after 48 hours DVT prophylaxis with enoxaparin Full code I spent 35 minutes in the evaluation of this patient Exam Vital Signs (past 8 hours): - 11/24/24 07:48 Temperature 96.9 F L Pulse Rate 62 Respiratory Rate 16 Blood Pressure 105/70 Pulse Oximetry 98 Oxygen Flow Rate 0 Oxygen Delivery Method Room Air Oxygen Flow Rate 0 Objective Labs 11/24/24 09:00 11/24/24 09:00 Labs: Laboratory Results - last 24 hr 11/24/24 09:00 WBC 10.1 RBC 3.01 L Hgb 7.9 L Hct 23.2 L MCV 77.0 L MCH 26.3 MCHC 34.2 RDW 20.7 H Plt Count 230 Neut % (Auto) Not Reportable Lymph % (Auto) Not Reportable [place] % (Auto) Not Reportable Eos % (Auto) Not Reportable Baso % (Auto) Not Reportable Lymph # (Auto) Not Reportable [place] # (Auto) Not Reportable Baso # (Auto) Not Reportable Total Counted 100 Seg Neutrophils % 47.0 Band Neutrophils % 3.0 Lymphocytes % (Manual) 29.0 Monocytes % (Manual) 16.0 H Eosinophils % (Manual) 3.0 Myelocytes % 2.0 H Neutrophils # (Manual) 5050 Nucleated RBCs 4 H RBC Morphology See below Anisocytosis 1+ H Microcytosis 1+ H Sickle Cells 2+ H Target Cells 1+ H Ovalocytes 1+ H Sodium 137 Potassium 4.1 Chloride 101 Carbon Dioxide 26 BUN 6 L Creatinine 0.50 L Estimated GFR > 60 BUN/Creatinine Ratio 12.0 Glucose 79 Calcium 9.1 Total Bilirubin 3.5 H AST 56 ALT 31 Alkaline Phosphatase 109 Total Protein 7.6 Albumin 4.2 Globulin 3.4 Albumin/Globulin Ratio 1.2 PFSH Medical History Vitamin D deficiency PTSD (post-traumatic stress disorder) Depression Anxiety Seizure Anemia Avascular necrosis of bone Contracture, left elbow Contracture, left hand CVA (cerebral vascular accident) Sickle cell anemia Surgical History History of shoulder surgery 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 Family History Father Cancer Sickle cell trait Lupus Mother Sickle cell trait Brother Sickle cell trait Social History household members: significant other alcohol intake: never Assessment & Plan Time-Based Coding :: [TOTAL MINUTES] spent with patient and on the chart (including review of chart, obtaining history, exam, reviewing outside data, placing orders, documenting exam and treatment plan, and counseling patient) on [DATE].
--- NOTE | 2024-11-24 16:11 | CM.DPNOTE ---
DCP Note [employer] reviewed EMR per chart review/provider report, pt remains in sickle cell crisis. still getting IV dilauded. per provider in morning rounds, pt likely good candidate for Hemaglobin clinic in [place], may benefit from transportation resources to get to [place]/ ED in future sickle cell crisis? [employer] unable to meet with pt today due to triaging needs. CM team will follow up with transport resources as able ([employer], would pt qualify for Medicaid? for transport benefits? any other resources for transport out of county resources to med appointments?). CM team to alert TCM at dc. P: anticipate dc in another day or so. check in if Work excuse letter needed. no other DCP needs anticipated at this time, will continue to follow closely VISHNU Thacker
--- NOTE | 2024-11-24 18:11 | PM.DS.1 ---
History of Present Illness History of Present Illness Date Patient Seen: 11/24/24 Chief complaint: sickle cell crisis Narrative: Chief complaint: Back pain and chest discomfort in sickle cell crisis typical and recurrent for this patient History of present illness: 24-year-old male with a history of sickle cell disease prior splenectomy and childhood stroke with left-sided hemiparesis left upper arm flexion contracture. Patient has been seen multiple times in the emergency room and discharged after IV fluids analgesics and oxygen. Was seen by the emergency department 2 days prior to this admission, however symptoms have not abated and patient was referred for observation admission Hospital course: 11/19-11/20: Pain reducing with IV fluids and analgesia migrating from lower back and legs to left upper arm Benadryl may be helpful for histamine release 11/21: Patient reported shoulder pain which has been infected and has had an incision in surgery previously remotely. CT of the left shoulder was ordered did not show any osseous acute abnormality but a moderate glenohumeral effusion and small subacromial subdeltoid bursal effusion IMPRESSION: 1. Moderate to severe glenohumeral osteoarthrosis with chronic remodeling and flattening of the humeral head articular surface and small area of irregularity of the inferior glenoid. Findings may be related to prior insult such as infection or osteonecrosis with superimposed secondary degenerative changes. No acute osseous erosion is seen. 2. Moderate glenohumeral effusion. Small subacromial/subdeltoid bursal effusion. Patient is seen by orthopedic surgeon below as an except of joint aspiration procedure performed 11/21: Consent was obtained his left arm was prepped with ChloraPrep. A 22 gauge inch and a half needle was used to aspirate his left shoulder approximately 6 cc of clear appearing synovial fluid was removed. It was not purulent or cloudy. It was sent for stat Gram stain culture and sensitivity, cell count and crystals. It did not appear to be acutely infected. If it is positive on the Gram stain or is growing bacteria he maybe a candidate for irrigation and debridement. He tolerated the procedure well. Complications none. 11/22: G stain of the aspirate shows occasional white blood cell and no organisms culture is pending. Colchicine initiated study demonstrates reduction of inflammation in inflammatory proteins in sickle cell disease 11/23: Patient is noncompliant with nasal cannula oxygen Patient is still having same amount of shoulder pain no sweats or chills no change in examination of the shoulder bilirubin escalated to 4.6 from 3.1 on admission synovial fluid no growth in 48 hours after aspiration 11/24: No fevers or chills pain is easing off white count is de-escalated from 14 down to 10 and bilirubin has de-escalated from 4.6 down to 3.5 Review of systems: No fever chills no headache diplopia or blurred vision no paresthesia or paresis No cough No shortness of breath No nausea vomiting abdominal pain diarrhea constipation No urinary symptoms Physical exam: Young male calm left upper extremity is contracted HEENT scleral icterus less noticeable Neck no thyromegaly Heart rate and rhythm regular no murmurs Lungs clear from apices to bases Abdomen nontender bowel sounds present Extremities lessened edema at posterior triceps deltoid region on the right Patient alert and oriented Assessment and plan: Sickle cell crisis: IV fluids, analgesics, nasal cannula oxygen, p.o. doxycycline Painful crisis easing off White count 14 de-escalated to 10 and bilirubin de-escalated from 4.6-3.1 we will continue IV fluids analgesics and oxygen encouraged compliance with oxygen Trial of colchicine being tolerated Left shoulder joint effusion status post sterile needle aspiration by Orthopedic surgery no growth after 48 hours DVT prophylaxis with enoxaparin Full code I spent 35 minutes in the evaluation of this patient Discharge Providers Provider Date of admission: 11/20/24 10:29 Discharge Date: 11/24/24 Primary care physician: LORRIE Wang Consults: 11/21/24 16:51 Consult to Orthopedic Surgery Routine Comment: Consulting Provider: Adrianne Guy Reason for consultation: Possible septic arthritis bursitis left shoulder in setting of sickle cell 11/22/24 08:12 Consult to Orthopedic Surgery Routine Comment: Consulting Provider: Adrianne Guy Reason for consultation: Shoulder joint effusion possible septic arthritis Has provider been notified: Yes 11/22/24 18:10 Consult to Physical Therapy Evaluate & Treat Comment: ROM as tolerated. Physician Instructions: Evaluate and Treat Discharge provider: Daniel Myers MD Exam Vital Signs (past 8 hours): Oxygen Delivery Method Room Air Oxygen Flow Rate 0 Objective Labs 11/24/24 09:00 11/24/24 09:00 Labs: Laboratory Results - last 24 hr 11/24/24 09:00 WBC 10.1 RBC 3.01 L Hgb 7.9 L Hct 23.2 L MCV 77.0 L MCH 26.3 MCHC 34.2 RDW 20.7 H Plt Count 230 Neut % (Auto) Not Reportable Lymph % (Auto) Not Reportable [place] % (Auto) Not Reportable Eos % (Auto) Not Reportable Baso % (Auto) Not Reportable Lymph # (Auto) Not Reportable [place] # (Auto) Not Reportable Baso # (Auto) Not Reportable Total Counted 100 Seg Neutrophils % 47.0 Band Neutrophils % 3.0 Lymphocytes % (Manual) 29.0 Monocytes % (Manual) 16.0 H Eosinophils % (Manual) 3.0 Myelocytes % 2.0 H Neutrophils # (Manual) 5050 Nucleated RBCs 4 H RBC Morphology See below Anisocytosis 1+ H Microcytosis 1+ H Sickle Cells 2+ H Target Cells 1+ H Ovalocytes 1+ H Sodium 137 Potassium 4.1 Chloride 101 Carbon Dioxide 26 BUN 6 L Creatinine 0.50 L Estimated GFR > 60 BUN/Creatinine Ratio 12.0 Glucose 79 Calcium 9.1 Total Bilirubin 3.5 H AST 56 ALT 31 Alkaline Phosphatase 109 Total Protein 7.6 Albumin 4.2 Globulin 3.4 Albumin/Globulin Ratio 1.2 PFSH Medical History Vitamin D deficiency PTSD (post-traumatic stress disorder) Depression Anxiety Seizure Anemia Avascular necrosis of bone Contracture, left elbow Contracture, left hand CVA (cerebral vascular accident) Sickle cell anemia Surgical History History of shoulder surgery 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 Family History Father Cancer Sickle cell trait Lupus Mother Sickle cell trait Brother Sickle cell trait Social History household members: significant other alcohol intake: never Discharge Plan Discharge Plan Patient Disposition: Home Discharge orders & Medications Prescriptions: New hydrocodone-acetaminophen 10-325 mg Tablet 1 tab PO Q4HR PRN (Reason: Pain, Moderate (4-6)) Qty: 20 0RF doxycycline hyclate 100 mg Tablet 100 mg PO BID Qty: 20 0RF Continued cholecalciferol (vitamin D3) 1,250 mcg (50,000 unit) capsule 1,250 mcg PO QWEEK 42 Days Qty: 6 0RF Rx Instructions: Take 1 capsule weekly for 6 weeks then switch to 800 IU daily rx. cholecalciferol (vitamin D3) 10 mcg (400 unit) capsule 20 mcg PO DAILY Qty: 180 0RF Rx Instructions: Start two capsules daily after 6 weeks of 1250mcg weekly dosing. hydroxyurea (sickle cell) 200 mg capsule 200 mg PO DAILY Qty: 90 0RF duloxetine 60 mg capsule,delayed release(DR/EC) 60 mg PO DAILY Qty: 60 0RF Rx Instructions: Start with 30mg tablets on day 8 start 60mg ondansetron 4 mg tablet,disintegrating 4 mg PO Q8H PRN (Reason: nausea and vomiting) Qty: 20 0RF albuterol sulfate 90 mcg/actuation HFA aerosol inhaler 2 puff inhalation Q6H PRN (Reason: wheezing) naloxone 4 mg/actuation spray,non-aerosol 1 spray intranasal PRN PRN (Reason: Opioid Overdose) Qty: 4 0RF Discontinued penicillin V potassium 250 mg tablet 250 mg PO BID Qty: 90 0RF oxycodone-acetaminophen [Percocet] 5-325 mg tablet 1 tab PO Q4-6H PRN (Reason: pain) Qty: 30 0RF hydrocodone-acetaminophen 5-325 mg tablet 1 tab PO Q6H PRN (Reason: pain) Qty: 14 0RF tramadol 50 mg tablet 50 mg PO Q8H PRN (Reason: pain) Qty: 20 0RF hydromorphone [Dilaudid] 2 mg tablet 2 mg PO Q6H PRN (Reason: pain) Qty: 14 0RF Follow up/Referrals: Jen Albarran FNP- [Primary Care Provider] - Visit Report/Discharge Packet Stand Alone Forms: Patient Portal/API Discharge Data Primary Care Provider: Jen Albarran
--- NOTE | 2024-11-24 18:28 | PC.NURSE ---
Patient ready to d/c, spoke with hospitalist and he was agreeabel to allow patient to go home today. Patient teaching done at bedside with girlfriend present. Encouraged patient to f/u with PCP for a referral to a [employer] or a Sickle Cell specialty provider. Patient states he will call PCP for appt. tomorrow. (monday). Hard copies of rx's signed by provider at bedside and handed to pt by provider. IV removed by primary nurse. VSS. Patient able to ambulate indep. and use stairway down to private vehicle. Patient states understanding of all d/c teaching. Patient leaves today in stable condition.
== END 2024-11-24 18:45 | disposition home or self-care (01) | DRG 662 ==
LOC: ED 10:44 → AC 11:28
PROVIDERS: Family Medicine; Orthopaedic Surgery; Admitting Provider Internal Medicine; Emergency Provider Emergency Medicine; PCP Nurse Practitioner Family; Referring Provider Emergency Medicine; Visit Provider Internal Medicine
DX: D57.00 Hb-SS disease with crisis, unspecified (principal); I69.354 Hemiplegia and hemiparesis following cerebral infarction affecting left non-dominant side; M25.412 Effusion, left shoulder; Z96.649 Presence of unspecified artificial hip joint; M19.012 Primary osteoarthritis, left shoulder; E55.9 Vitamin D deficiency, unspecified; M24.532 Contracture, left wrist; F32.A Depression, unspecified; F41.9 Anxiety disorder, unspecified; Z90.81 Acquired absence of spleen; Z98.890 Other specified postprocedural states
CPT/HCPCS: 0241U; 36415; 71046; 73201; 80048; 80053; 81001; 83735; 85007; 85025; 85045; 87040; 87070; 87075; 87205; 89051; 89060; 96361; 96374; 96376; 99284; 99291; G0378; J1171; J1200; J1650; J2405; J7050; Q9967

== ENCOUNTER 2024-12-25 08:59 | Emergency (ER) | payer OTHER, SELFPAY ==
[2024-11-18 12:23] VITALS: BMI 18.6
[2024-12-25] VITALS (9 sets, daily range): BP systolic 102–110; BP diastolic 58–69; PULSE 63–75; RESP 15–21; TEMP 36.7; O2SAT 95–98; BMI 18.6
[2024-12-25] MEDS: SODIUM CHLORIDE 0.9% 1,000 ML 1000 ML IV (09:33)
[2024-12-25 09:38] LABS: Add Manual Diff / Slide Review NO; Basophils Absolute Auto 100 /uL (0-100); Basophils Percent Auto 0.5 % (0-2); Eosinophils Absolute Auto 100 /uL (0-450); Eosinophils Percent Auto 0.5 % (2-4); Hematocrit 28.5 % (41-53); Hemoglobin 9.7 g/dL (13.5-17.5); Lymphocytes Absolute Auto 5500 /uL (1100-4500); Lymphocytes Percent Auto 52.6 % (25-40); Mean Corpuscular Hemoglobin 24.6 PG (26-34); Mean Corpuscular Volume 72.5 fL (80-100); Monocytes Absolute Auto 300 /uL (0-900); Monocytes Percent Auto 2.6 % (3-14); Neutrophils Absolute Auto 4600 /uL (1500-7000); Neutrophils Percent Auto 43.8 % (50-75); Platelet Count 219 X10^3/uL (150-400); Red Blood Cell Count 3.93 X10^6/uL (4.5-5.9); Red Cell Distribution Width 19.4 % (11.6-14.8); White Blood Cell Count 10.5 X10^3/uL (4.5-11.0)
[2024-12-25 09:46] LABS: Alanine Aminotransferase 26 IU/L (<50); Albumin 4.6 g/dL (3.5-5.0); Albumin Globulin Ratio 1.4 (1.0-2.8); Alkaline Phosphatase 76 U/L (38-126); Aspartate Aminotransferase 48 IU/L (17-59); BUN Creatinine Ratio 12.1 (6-22); Bilirubin Total 2.7 mg/dL (0.2-1.3); Blood Urea Nitrogen 8 mg/dL (9-20); Calcium 8.5 mg/dL (8.4-10.2); Carbon Dioxide 22 mmol/L (22-32); Chloride 107 mmol/L (98-107); Estimated Glomerular Filt Rate > 60 mL/min (>60); Globulin 3.3 g/dL (1.7-4.1); Glucose 83 mg/dL (70-99); HEMOLYSIS < 15 (0-50); Potassium 3.8 mmol/L (3.4-5.1); Sodium 139 mmol/L (137-145); Total Protein 7.9 g/dL (6.3-8.2)
[2024-12-25 09:50] LABS: Reticulocyte Count, Percent 6.5 % (0.9-2.6)
--- NOTE | 2024-12-25 09:56 | ED_ITS ---
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 Patient presents today with complaint of low back pain and arm pain. States he feels like he was starting to be going to flare we would like to try to get in front of it. He denies any fevers. Denies any headache, no chest pain or shortness of breath. Denies abdominal pain. Denies any nausea or vomiting. Denies any other new GI or urinary symptoms. States he was currently on his regular medications. Does follow up with primary care has not established with Hematology. Related Data Home Medications Medication Instructions Recorded Confirmed albuterol sulfate 90 mcg/actuation 2 puff inhalation Q6H PRN wheezing 11/18/24 12/04/24 aerosol inhaler Previous Rx's Medication Instructions Recorded ondansetron 4 mg disintegrating 4 mg PO Q8H PRN nausea and 10/02/24 tablet vomiting #20 tabs cholecalciferol (vitamin D3) 10 20 mcg (2 x 10 mcg (400 unit)) PO 10/25/24 mcg (400 unit) capsule DAILY #180 caps hydrocodone 5 mg-acetaminophen 325 1 tab PO Q6H PRN pain #14 tabs 11/02/24 mg tablet doxycycline hyclate 100 mg tablet 100 mg PO BID #20 tabs 11/24/24 hydrocodone 10 mg-acetaminophen 1 tab PO Q4HR PRN Pain, Moderate 11/24/24 325 mg tablet (4-6) #20 tabs naloxone 4 mg/actuation nasal spray 1 spray intranasal PRN PRN Opioid 11/24/24 Overdose #4 ea duloxetine 60 mg capsule,delayed 60 mg PO DAILY #90 caps 12/04/24 release hydroxyurea (sickle cell) 400 mg 400 mg PO DAILY #90 caps 12/04/24 capsule Allergies Allergy/AdvReac Type Severity Reaction Status Date / Time No Known Drug Allergies Allergy Verified 12/04/24 11:35 Review of Systems Review of Systems ROS Unobtainable: All systems reviewed & are unremarkable except as noted in HPI and below Patient History Medical History Vitamin D deficiency PTSD (post-traumatic stress disorder) Depression Anxiety Seizure Anemia Avascular necrosis of bone Contracture, left elbow Contracture, left hand CVA (cerebral vascular accident) Sickle cell anemia Surgical History History of shoulder surgery 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 Family History Father Cancer Sickle cell trait Lupus Mother Sickle cell trait Brother Sickle cell trait Social History household members: significant other alcohol intake: never alcohol intake frequency: holidays/special occasions only Exam Narrative Exam Narrative: GENERAL: Alert and oriented x three, male in mild distress HEENT: Head normocephalic, atraumatic, EOMI, pupils reactive, face symmetric, moist mucous membranes NECK: Supple, full range of motion CARDIOVASCULAR: Regular rate and rhythm without murmurs, rubs or gallops. RESPIRATORY: Breath sounds equal bilaterally, no wheezes rales or rhonchi. ABDOMEN: Soft, nontender. Nondistended. Normoactive bowel sounds all 4 quadrants. No guarding or rebound, rigidity, no mass : No CVA tenderness EXTREMITIES: Left-sided atrophy and contracture upper extremity, no edema. Neurovascularly intact NEUROLOGICAL: Cranial nerves II through XII grossly intact. Moving all extremities SKIN: Warm, dry, no petechiae, no rashes or lesions. Initial Vital Signs Initial Vital Signs: Vital Signs Pulse Rate 73 12/25/24 09:03 Pulse Oximetry 98 12/25/24 09:03 Course Orders Ordered: ED Orders 12/25/24 09:22 CBC Auto Diff [Complete Blood Count AUTO DIFF] Stat CMP [Comprehensive Metabolic Panel] Stat Reticulocyte Count, Percent Stat Discontinued Medications Hydromorphone HCl (Hydromorphone 1 Mg Inj) 1 mg IV NOW ONE Stop: 12/25/24 10:01 Last Admin: 12/25/24 10:37 Dose: 1 mg Documented By: [facility] Hydromorphone HCl (Hydromorphone 1 Mg Inj) 1 mg IV NOW ONE Stop: 12/25/24 11:23 Last Admin: 12/25/24 11:41 Dose: 1 mg Documented By: MONIE Sodium Chloride (Normal Saline 0.9%) 1,000 mls @ 1,000 mls/hr IV BOLUS ONE Stop: 12/25/24 10:26 Last Infusion: 12/25/24 10:35 Dose: Infused Documented By: Admin: 12/25/24 09:33 Dose: 1,000 mls/hr Documented By: MOLLY Vital Signs Vital signs: Vital Signs - 8 hr 12/25/24 09:03 12/25/24 09:04 12/25/24 09:04 Temperature Pulse Rate 73 75 Respiratory Rate Blood Pressure 108/58 L Pulse Oximetry 98 98 Oxygen Delivery Method Room Air 12/25/24 09:05 12/25/24 09:30 12/25/24 09:30 Temperature 98.0 F Pulse Rate 73 66 Respiratory Rate 16 19 Blood Pressure 108/58 L 102/62 Pulse Oximetry 97 97 Oxygen Delivery Method Room Air 12/25/24 10:00 12/25/24 10:00 12/25/24 10:30 Temperature Pulse Rate 65 Respiratory Rate 20 Blood Pressure 108/66 108/69 Pulse Oximetry 98 Oxygen Delivery Method 12/25/24 10:30 12/25/24 11:00 12/25/24 11:00 Temperature Pulse Rate 64 69 Respiratory Rate 21 15 Blood Pressure 107/62 Pulse Oximetry 97 97 Oxygen Delivery Method 12/25/24 11:30 12/25/24 11:30 12/25/24 12:00 Temperature Pulse Rate 63 65 Respiratory Rate 15 17 Blood Pressure 110/59 L Pulse Oximetry 96 95 Oxygen Delivery Method Room Air 12/25/24 12:00 Temperature 98.0 F Pulse Rate Respiratory Rate Blood Pressure 110/65 Pulse Oximetry Oxygen Delivery Method MDM - Back Pain/Injury Lab Data 12/25/24 09:22 12/25/24 09:22 Labs: Lab Results 12/25/24 Range/Units 09:22 WBC 10.5 (4.5-11.0) X10^3/uL RBC 3.93 L (4.5-5.9) X10^6/uL Hgb 9.7 L (13.5-17.5) g/dL Hct 28.5 L (41-53) % MCV 72.5 L (80-100) fL MCH 24.6 L (26-34) PG MCHC 34.0 (30-36) % RDW 19.4 H (11.6-14.8) % Plt Count 219 (150-400) X10^3/uL Neut % (Auto) 43.8 L (50-75) % Lymph % (Auto) 52.6 H (25-40) % [place] % (Auto) 2.6 L (3-14) % Eos % (Auto) 0.5 L (2-4) % Baso % (Auto) 0.5 (0-2) % Neut # (Auto) 4600 (6336-8360) /uL Lymph # (Auto) 5500 H (3759-7050) /uL [place] # (Auto) 300 (0-900) /uL Eos # (Auto) 100 (0-450) /uL Baso # (Auto) 100 (0-100) /uL Percent Retic 6.5 H (0.9-2.6) % Sodium 139 (137-145) mmol/L Potassium 3.8 (3.4-5.1) mmol/L Chloride 107 (98-107) mmol/L Carbon Dioxide 22 (22-32) mmol/L BUN 8 L (9-20) mg/dL Creatinine 0.66 (0.66-1.25) mg/dL Estimated GFR > 60 (>60) mL/min BUN/Creatinine Ratio 12.1 (6-22) Glucose 83 (70-99) mg/dL Calcium 8.5 (8.4-10.2) mg/dL Total Bilirubin 2.7 H (0.2-1.3) mg/dL AST 48 (17-59) IU/L ALT 26 (<50) IU/L Alkaline Phosphatase 76 (38-126) U/L Total Protein 7.9 (6.3-8.2) g/dL Albumin 4.6 (3.5-5.0) g/dL Globulin 3.3 (1.7-4.1) g/dL Albumin/Globulin Ratio 1.4 (1.0-2.8) MDM Narrative Medical decision making narrative: Labs show white count of 10.5 improved from earlier in November hemoglobin is 9.7 also slightly improved with 7.9 on 11/24/2024 typically in the 8 range the week before that. Platelets today are 219. Patient has predominance of lymphocytes. Retake count is 6.5. Chemistries shows normal electrolytes BUN creatinine, bilirubin is 2.7 was 4.3 earlier in November, patient tends to run in the 2-3 range. Patient denies any chest pain, notes more back pain and extremity pain. Reviewed findings and trends in his lab work. Discussed with patient he does not feel he requires admission this time he feels comfortable returning home and it feels improved after medication. Patient received fluids and pain medication. Discharge Plan Departure Patient Disposition: Home Clinical Impression: Sickle cell disease with crisis Instructions: DI for Sickle Cell Anemia, Pain Crisis -- Adult Activity Restrictions/Additional Instructions: I hope you continue to feel improved. Please follow up in the next week for recheck. Please return if you have new or worsening symptoms or any other new or concerning changes. Prescriptions: No Action cholecalciferol (vitamin D3) 10 mcg (400 unit) capsule 20 mcg PO DAILY Qty: 180 0RF Rx Instructions: Start two capsules daily after 6 weeks of 1250mcg weekly dosing. hydroxyurea (sickle cell) 400 mg capsule 400 mg PO DAILY Qty: 90 3RF duloxetine 60 mg capsule,delayed release(DR/EC) 60 mg PO DAILY Qty: 90 2RF ondansetron 4 mg tablet,disintegrating 4 mg PO Q8H PRN (Reason: nausea and vomiting) Qty: 20 0RF albuterol sulfate 90 mcg/actuation HFA aerosol inhaler 2 puff inhalation Q6H PRN (Reason: wheezing) hydrocodone-acetaminophen 10-325 mg Tablet 1 tab PO Q4HR PRN (Reason: Pain, Moderate (4-6)) Qty: 20 0RF doxycycline hyclate 100 mg Tablet 100 mg PO BID Qty: 20 0RF naloxone 4 mg/actuation spray,non-aerosol 1 spray intranasal PRN PRN (Reason: Opioid Overdose) Qty: 4 0RF Referrals: Jen Albarran FNP-BC [Primary Care Provider] - Stand Alone Forms: Patient Portal/API/Survey
[2024-12-25] MEDS: HYDROMORPHONE 1 MG INJ IV ×2 (10:37→11:41)
== END 2024-12-25 12:32 | disposition home or self-care (01) ==
PROVIDERS: Emergency Provider Emergency Medicine; PCP Nurse Practitioner Family
DX: D57.00 Hb-SS disease with crisis, unspecified (principal); Z86.73 Personal history of transient ischemic attack (TIA), and cerebral infarction without residual deficits
CPT/HCPCS: 36415; 80053; 85025; 85045; 96361; 96374; 96376; 99284; J1171

== ENCOUNTER 2024-12-27 04:45 | Emergency (ER) | payer SELFPAY ==
[2024-11-18 12:23] VITALS: BMI 18.6
[2024-12-27] VITALS (9 sets, daily range): BP systolic 94–107; BP diastolic 57–61; PULSE 62–78; RESP 13–20; TEMP 36.4–37; O2SAT 94–98; BMI 18.6
[2024-12-27] MEDS: HYDROMORPHONE 1 MG INJ IV ×3 (05:11→06:59)
[2024-12-27] MEDS: ONDANSETRON 4 MG/2 ML INJ IV (05:11)
[2024-12-27 05:25] LABS: Add Manual Diff / Slide Review NO; Basophils Absolute Auto 100 /uL (0-100); Eosinophils Absolute Auto 100 /uL (0-450); Eosinophils Percent Auto 1.5 % (2-4); Hematocrit 27.3 % (41-53); Hemoglobin 9.3 g/dL (13.5-17.5); Lymphocytes Absolute Auto 5600 /uL (1100-4500); Lymphocytes Percent Auto 59.3 % (25-40); Mean Corpuscular HGB Conc 34.1 % (30-36); Mean Corpuscular Hemoglobin 24.9 PG (26-34); Mean Corpuscular Volume 73.2 fL (80-100); Monocytes Absolute Auto 400 /uL (0-900); Monocytes Percent Auto 3.9 % (3-14); Neutrophils Absolute Auto 3300 /uL (1500-7000); Neutrophils Percent Auto 34.3 % (50-75); Platelet Count 210 X10^3/uL (150-400); Red Blood Cell Count 3.73 X10^6/uL (4.5-5.9); Red Cell Distribution Width 19.1 % (11.6-14.8); White Blood Cell Count 9.5 X10^3/uL (4.5-11.0)
[2024-12-27 05:31] LABS: BUN Creatinine Ratio 13.1 (6-22); Blood Urea Nitrogen 8 mg/dL (9-20); Calcium 8.4 mg/dL (8.4-10.2); Carbon Dioxide 23 mmol/L (22-32); Chloride 107 mmol/L (98-107); Estimated Glomerular Filt Rate > 60 mL/min (>60); Glucose 95 mg/dL (70-99); HEMOLYSIS 18 (0-50); Potassium 3.6 mmol/L (3.4-5.1); Sodium 140 mmol/L (137-145)
--- NOTE | 2024-12-27 06:10 | ED.RECABL ---
HPI - Recheck/Abnormal Lab/Rx General Chief Complaint: Recheck/Abnormal Lab/Rx Stated Complaint: pain all limbs and back Time Seen by Provider: 12/27/24 06:16 Source: patient Mode of arrival: Ambulatory History of Present Illness HPI narrative: 24-year-old male history of sickle cell history of prior splenectomy prior childhood stroke with residual left-sided deficits presenting for typical sickle cell pain, states it is, he is to his low back and arm, he denies any chest pain shortness of breath fever chills or any other GI/ symptoms time, he states it is completely normal of his sickle cell flare-up. Related Data Home Medications Medication Instructions Recorded Confirmed albuterol sulfate 90 mcg/actuation 2 puff inhalation Q6H PRN wheezing 11/18/24 12/04/24 aerosol inhaler Previous Rx's Medication Instructions Recorded ondansetron 4 mg disintegrating 4 mg PO Q8H PRN nausea and 10/02/24 tablet vomiting #20 tabs cholecalciferol (vitamin D3) 10 20 mcg (2 x 10 mcg (400 unit)) PO 10/25/24 mcg (400 unit) capsule DAILY #180 caps hydrocodone 5 mg-acetaminophen 325 1 tab PO Q6H PRN pain #14 tabs 11/02/24 mg tablet doxycycline hyclate 100 mg tablet 100 mg PO BID #20 tabs 11/24/24 hydrocodone 10 mg-acetaminophen 1 tab PO Q4HR PRN Pain, Moderate 11/24/24 325 mg tablet (4-6) #20 tabs naloxone 4 mg/actuation nasal spray 1 spray intranasal PRN PRN Opioid 11/24/24 Overdose #4 ea duloxetine 60 mg capsule,delayed 60 mg PO DAILY #90 caps 12/04/24 release hydroxyurea (sickle cell) 400 mg 400 mg PO DAILY #90 caps 12/04/24 capsule Allergies Allergy/AdvReac Type Severity Reaction Status Date / Time No Known Drug Allergies Allergy Verified 12/04/24 11:35 Review of Systems Review of Systems Narrative: GENERAL: Alert and oriented x three, male in mild distress HEENT: Head normocephalic, atraumatic, EOMI, pupils reactive, face symmetric, moist mucous membranes NECK: Supple, full range of motion CARDIOVASCULAR: Regular rate and rhythm without murmurs, rubs or gallops. RESPIRATORY: Breath sounds equal bilaterally, no wheezes rales or rhonchi. ABDOMEN: Soft, nontender. Nondistended. Normoactive bowel sounds all 4 quadrants. No guarding or rebound, rigidity, no mass : No CVA tenderness EXTREMITIES: Left-sided atrophy and contracture upper extremity, no edema. Neurovascularly intact NEUROLOGICAL: Cranial nerves II through XII grossly intact. Moving all extremities SKIN: Warm, dry, no petechiae, no rashes or lesions. Patient History Medical History Vitamin D deficiency PTSD (post-traumatic stress disorder) Depression Anxiety Seizure Anemia Avascular necrosis of bone Contracture, left elbow Contracture, left hand CVA (cerebral vascular accident) Sickle cell anemia Surgical History History of shoulder surgery 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 Family History Father Cancer Sickle cell trait Lupus Mother Sickle cell trait Brother Sickle cell trait Social History household members: significant other alcohol intake: never alcohol intake frequency: holidays/special occasions only Exam Initial Vital Signs Initial Vital Signs: Vital Signs Temperature 97.6 F 12/27/24 04:50 Pulse Rate 78 12/27/24 04:50 Respiratory Rate 20 12/27/24 04:50 Blood Pressure 106/57 L 12/27/24 04:50 Oxygen Delivery Method Room Air 12/27/24 04:50 Course Orders Ordered: ED Orders 12/27/24 05:03 Basic Metabolic Panel Stat Complete Blood Count AUTO DIFF Stat Reticulocyte Count, Percent Stat Hydromorphone HCl (Hydromorphone 1 Mg Inj) 1 mg IV PRN PRN PRN Reason: Pain, Moderate (4-6) Last Admin: 12/27/24 06:59 Dose: 1 mg Discontinued Medications Hydromorphone HCl (Hydromorphone 1 Mg Inj) 1 mg IV NOW ONE Stop: 12/27/24 05:08 Last Admin: 12/27/24 05:11 Dose: 1 mg Documented By: TUNG Hydromorphone HCl (Hydromorphone 1 Mg Inj) 1 mg IV NOW ONE Stop: 12/27/24 06:07 Last Admin: 12/27/24 06:09 Dose: 1 mg Documented By: TUNG Ondansetron HCl (Ondansetron 4 Mg/2 Ml Inj) 4 mg IV NOW ONE Stop: 12/27/24 05:09 Last Admin: 12/27/24 05:11 Dose: 4 mg Documented By: TUNG Vital Signs Vital signs: Vital Signs - 8 hr 12/27/24 04:50 12/27/24 04:51 12/27/24 04:51 Temperature 97.6 F Pulse Rate 78 77 Respiratory Rate 20 14 Blood Pressure 106/57 L 107/57 L Pulse Oximetry 98 Oxygen Delivery Method Room Air Room Air 12/27/24 05:00 12/27/24 05:30 12/27/24 06:00 Temperature Pulse Rate 75 70 65 Respiratory Rate 17 19 18 Blood Pressure Pulse Oximetry 95 95 95 Oxygen Delivery Method Room Air Room Air Room Air 12/27/24 06:12 12/27/24 06:12 12/27/24 06:30 Temperature Pulse Rate 62 70 Respiratory Rate 15 17 Blood Pressure 94/59 L Pulse Oximetry 98 95 Oxygen Delivery Method Room Air Room Air 12/27/24 06:30 12/27/24 07:00 12/27/24 07:00 Temperature Pulse Rate 65 Respiratory Rate 13 Blood Pressure 102/61 101/59 L Pulse Oximetry 97 Oxygen Delivery Method Room Air MDM - Recheck/Abnormal Lab/Rx Differential Diagnosis Differential diagnosis: Likely other (Anemia, sickle cell crisis,) Lab Data 12/27/24 05:03 12/27/24 05:03 Labs: Lab Results 12/27/24 Range/Units 05:03 WBC 9.5 (4.5-11.0) X10^3/uL RBC 3.73 L (4.5-5.9) X10^6/uL Hgb 9.3 L (13.5-17.5) g/dL Hct 27.3 L (41-53) % MCV 73.2 L (80-100) fL MCH 24.9 L (26-34) PG MCHC 34.1 (30-36) % RDW 19.1 H (11.6-14.8) % Plt Count 210 (150-400) X10^3/uL Neut % (Auto) 34.3 L (50-75) % Lymph % (Auto) 59.3 H (25-40) % [place] % (Auto) 3.9 (3-14) % Eos % (Auto) 1.5 L (2-4) % Baso % (Auto) 1.0 (0-2) % Neut # (Auto) 3300 (5668-2974) /uL Lymph # (Auto) 5600 H (4965-0541) /uL [place] # (Auto) 400 (0-900) /uL Eos # (Auto) 100 (0-450) /uL Baso # (Auto) 100 (0-100) /uL Percent Retic 7.0 H (0.9-2.6) % Sodium 140 (137-145) mmol/L Potassium 3.6 (3.4-5.1) mmol/L Chloride 107 (98-107) mmol/L Carbon Dioxide 23 (22-32) mmol/L BUN 8 L (9-20) mg/dL Creatinine 0.61 L (0.66-1.25) mg/dL Estimated GFR > 60 (>60) mL/min BUN/Creatinine Ratio 13.1 (6-22) Glucose 95 (70-99) mg/dL Calcium 8.4 (8.4-10.2) mg/dL MDM Narrative Medical decision making narrative: 24-year-old male with a history of left-sided residual deficits secondary to stroke due to sickle cell presenting for typical sickle cell pain. Patient is well-known here coming in for exacerbation/sickle cell pain crisis, states it is typical to his low back. Denies any other symptoms at this time, lab work performed here is at baseline, hemoglobin 9.3, no leukocytosis, retic 7.0, Chem panel unremarkable. Patient was given Dilaudid x3, with resolution of his symptoms. He was given strict return precautions verbalized understanding of this agrees to being discharged home with outpatient follow up Discharge Plan Departure Patient Disposition: Home Clinical Impression: Sickle cell anemia with pain Activity Restrictions/Additional Instructions: Please follow up with your primary care doctor Please read the discharge instructions sheet carefully and bring all papers to all doctor follow-up visits, as it may contain information that your doctor may want to see. Disease processes change and evolve, if your symptoms worsen or if you develop any new symptoms that are concerning to you please return for evaluation. Your evaluation today does not show any evidence of any life-threatening/serious illnesses requiring admission to the hospital or surgery. Please follow-up with your doctor for re-evaluation in approximately 1 day. Seek immediate medical attention for any worrisome symptoms. *If you do not have a primary care provider please contact the [facility] Resource line at [phone]. They will ask some questions about your medical history and help get you set up with a doctor in the community. Prescriptions: No Action cholecalciferol (vitamin D3) 10 mcg (400 unit) capsule 20 mcg PO DAILY Qty: 180 0RF Rx Instructions: Start two capsules daily after 6 weeks of 1250mcg weekly dosing. hydroxyurea (sickle cell) 400 mg capsule 400 mg PO DAILY Qty: 90 3RF duloxetine 60 mg capsule,delayed release(DR/EC) 60 mg PO DAILY Qty: 90 2RF ondansetron 4 mg tablet,disintegrating 4 mg PO Q8H PRN (Reason: nausea and vomiting) Qty: 20 0RF albuterol sulfate 90 mcg/actuation HFA aerosol inhaler 2 puff inhalation Q6H PRN (Reason: wheezing) hydrocodone-acetaminophen 10-325 mg Tablet 1 tab PO Q4HR PRN (Reason: Pain, Moderate (4-6)) Qty: 20 0RF doxycycline hyclate 100 mg Tablet 100 mg PO BID Qty: 20 0RF naloxone 4 mg/actuation spray,non-aerosol 1 spray intranasal PRN PRN (Reason: Opioid Overdose) Qty: 4 0RF Referrals: Jen Albarran FNP-BC [Primary Care Provider] - Stand Alone Forms: Patient Portal/API/Survey
== END 2024-12-27 07:27 | disposition home or self-care (01) ==
PROVIDERS: Emergency Provider Student in an Organized Health Care Education/Training Program; PCP Nurse Practitioner Family
DX: D57.00 Hb-SS disease with crisis, unspecified (principal)
CPT/HCPCS: 36415; 80048; 85025; 85045; 96374; 96375; 96376; 99284; J1171; J2405

== ENCOUNTER 2024-12-31 04:06 | Emergency (ER) | payer SELFPAY ==
[2024-11-18 12:23] VITALS: BMI 18.6
[2024-12-31 04:24] VITALS: BP 103/58; PULSE 86; RESP 16; TEMP 36.7; O2SAT 97; BMI 18.6
[2024-12-31] MEDS: SODIUM CHLORIDE 0.9% 1,000 ML 1000 ML IV (05:52)
[2024-12-31] MEDS: HYDROMORPHONE 1 MG INJ IV ×3 (05:53→08:21)
[2024-12-31 06:18] LABS: Add Manual Diff / Slide Review NO; Basophils Absolute Auto 100 /uL (0-100); Basophils Percent Auto 0.9 % (0-2); Eosinophils Absolute Auto 100 /uL (0-450); Hematocrit 29.6 % (41-53); Hemoglobin 9.9 g/dL (13.5-17.5); Lymphocytes Absolute Auto 4600 /uL (1100-4500); Lymphocytes Percent Auto 44.4 % (25-40); Mean Corpuscular HGB Conc 33.5 % (30-36); Mean Corpuscular Hemoglobin 24.5 PG (26-34); Monocytes Absolute Auto 800 /uL (0-900); Monocytes Percent Auto 7.3 % (3-14); Neutrophils Absolute Auto 4800 /uL (1500-7000); Neutrophils Percent Auto 46.4 % (50-75); Platelet Count 270 X10^3/uL (150-400); Red Blood Cell Count 4.06 X10^6/uL (4.5-5.9); Red Cell Distribution Width 19.2 % (11.6-14.8); White Blood Cell Count 10.3 X10^3/uL (4.5-11.0)
[2024-12-31 06:35] LABS: Alanine Aminotransferase 35 IU/L (<50); Albumin 4.7 g/dL (3.5-5.0); Albumin Globulin Ratio 1.3 (1.0-2.8); Alkaline Phosphatase 72 U/L (38-126); Aspartate Aminotransferase 59 IU/L (17-59); BUN Creatinine Ratio 13.4 (6-22); Bilirubin Total 2.3 mg/dL (0.2-1.3); Blood Urea Nitrogen 9 mg/dL (9-20); Calcium 8.5 mg/dL (8.4-10.2); Carbon Dioxide 23 mmol/L (22-32); Chloride 106 mmol/L (98-107); Estimated Glomerular Filt Rate > 60 mL/min (>60); Globulin 3.5 g/dL (1.7-4.1); Glucose 87 mg/dL (70-99); HEMOLYSIS < 15 (0-50); Potassium 3.8 mmol/L (3.4-5.1); Sodium 139 mmol/L (137-145); Total Protein 8.2 g/dL (6.3-8.2)
--- NOTE | 2024-12-31 07:12 | ED.GENADULT ---
HPI - General Adult General Chief complaint: Abdominal Pain Stated complaint: All Over Body Pain Time Seen by Provider: 12/31/24 05:45 Source: patient, RN notes reviewed and old records reviewed Mode of arrival: Ambulatory Limitations: no limitations History of Present Illness HPI narrative: 24-year-old male history of sickle cell, prior history splenectomy, prior childhood stroke with residual left-sided deficits patient comes over with complaint of pain all over. States he does not have any chest pain, no shortness of breath. Has some lower back pain, describes pain in extremities. He has had several visits recently. No fevers. No cold cough congestion symptoms. Denies any nausea or vomiting. Denies any issues with bowel movements or urination. Denies any new swelling in extremities. Patient has not had any new medication changes. He has had several recent visits discussed if he felt that he was at the point he needed admission. He states he was not sure thinks it maybe more of a pain management situation. No known drug allergies. Patient has not established with Hematology at but states he was in process. Primary care is Jen Albarran. Related Data Home Medications Medication Instructions Recorded Confirmed albuterol sulfate 90 mcg/actuation 2 puff inhalation Q6H PRN wheezing 11/18/24 12/04/24 aerosol inhaler Previous Rx's Medication Instructions Recorded ondansetron 4 mg disintegrating 4 mg PO Q8H PRN nausea and 10/02/24 tablet vomiting #20 tabs cholecalciferol (vitamin D3) 10 20 mcg (2 x 10 mcg (400 unit)) PO 10/25/24 mcg (400 unit) capsule DAILY #180 caps hydrocodone 5 mg-acetaminophen 325 1 tab PO Q6H PRN pain #14 tabs 11/02/24 mg tablet doxycycline hyclate 100 mg tablet 100 mg PO BID #20 tabs 11/24/24 hydrocodone 10 mg-acetaminophen 1 tab PO Q4HR PRN Pain, Moderate 11/24/24 325 mg tablet (4-6) #20 tabs naloxone 4 mg/actuation nasal spray 1 spray intranasal PRN PRN Opioid 11/24/24 Overdose #4 ea duloxetine 60 mg capsule,delayed 60 mg PO DAILY #90 caps 12/04/24 release hydroxyurea (sickle cell) 400 mg 400 mg PO DAILY #90 caps 12/04/24 capsule Allergies Allergy/AdvReac Type Severity Reaction Status Date / Time No Known Drug Allergies Allergy Verified 12/04/24 11:35 Review of Systems Review of Systems ROS Unobtainable: All systems reviewed & are unremarkable except as noted in HPI and below Patient History Medical History Vitamin D deficiency PTSD (post-traumatic stress disorder) Depression Anxiety Seizure Anemia Avascular necrosis of bone Contracture, left elbow Contracture, left hand CVA (cerebral vascular accident) Sickle cell anemia Surgical History History of shoulder surgery 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 Family History Father Cancer Sickle cell trait Lupus Mother Sickle cell trait Brother Sickle cell trait Social History household members: significant other alcohol intake: never alcohol intake frequency: holidays/special occasions only Exam Narrative Exam Narrative: GENERAL: Alert and oriented x three, in mild distress HEENT: Head normocephalic, atraumatic, EOMI, pupils reactive, face symmetric, moist mucous membranes NECK: Supple, full range of motion CARDIOVASCULAR: Regular rate and rhythm without murmurs, rubs or gallops. RESPIRATORY: Breath sounds equal bilaterally, no wheezes rales or rhonchi. ABDOMEN: Soft, nontender. Nondistended. Normoactive bowel sounds all 4 quadrants. No guarding or rebound, rigidity, no mass : No CVA tenderness EXTREMITIES: Left-sided atrophy and contracture of upper extremity, no edema. Neurovascularly intact NEUROLOGICAL: Cranial nerves II through XII grossly intact. Moving all extremities SKIN: Warm, dry, no petechiae, no rashes or lesions. Initial Vital Signs Initial Vital Signs: Vital Signs Temperature 98.1 F 12/31/24 04:24 Pulse Rate 86 12/31/24 04:24 Respiratory Rate 16 12/31/24 04:24 Blood Pressure 103/58 L 12/31/24 04:24 Pulse Oximetry 97 12/31/24 04:24 Oxygen Delivery Method Room Air 12/31/24 04:24 Course Orders Ordered: Discontinued Medications Hydromorphone HCl (Hydromorphone 1 Mg Inj) 1 mg IV Q2HR PRN PRN Reason: Pain, Moderate (4-6) Last Admin: 12/31/24 05:53 Dose: 1 mg Documented By: LOAN Hydromorphone HCl (Hydromorphone 1 Mg Inj) 1 mg IV NOW ONE Stop: 12/31/24 07:30 Last Admin: 12/31/24 07:34 Dose: 1 mg Documented By: MOLLY Hydromorphone HCl (Hydromorphone 1 Mg Inj) 1 mg IV NOW ONE Stop: 12/31/24 08:12 Last Admin: 12/31/24 08:21 Dose: 1 mg Documented By: MOLLY Sodium Chloride (Normal Saline 0.9%) 1,000 mls @ 1,000 mls/hr IV BOLUS ONE Stop: 12/31/24 06:44 Last Infusion: 12/31/24 06:57 Dose: Infused Documented By: Admin: 12/31/24 05:52 Dose: 1,000 mls/hr Documented By: LOAN Vital Signs Vital signs: Vital Signs - 8 hr 12/31/24 08:56 Pulse Rate 70 Respiratory Rate 14 Blood Pressure 103/60 Pulse Oximetry 96 Oxygen Delivery Method Room Air Medical Decision Making Lab Data 12/31/24 06:00 12/31/24 06:00 Labs: Lab Results 12/31/24 Range/Units 06:00 WBC 10.3 (4.5-11.0) X10^3/uL RBC 4.06 L (4.5-5.9) X10^6/uL Hgb 9.9 L (13.5-17.5) g/dL Hct 29.6 L (41-53) % MCV 73.0 L (80-100) fL MCH 24.5 L (26-34) PG MCHC 33.5 (30-36) % RDW 19.2 H (11.6-14.8) % Plt Count 270 (150-400) X10^3/uL Neut % (Auto) 46.4 L (50-75) % Lymph % (Auto) 44.4 H (25-40) % Person % (Auto) 7.3 (3-14) % Eos % (Auto) 1.0 L (2-4) % Baso % (Auto) 0.9 (0-2) % Neut # (Auto) 4800 (4689-9493) /uL Lymph # (Auto) 4600 H (4864-2462) /uL Person # (Auto) 800 (0-900) /uL Eos # (Auto) 100 (0-450) /uL Baso # (Auto) 100 (0-100) /uL Percent Retic 6.0 H (0.9-2.6) % Sodium 139 (137-145) mmol/L Potassium 3.8 (3.4-5.1) mmol/L Chloride 106 (98-107) mmol/L Carbon Dioxide 23 (22-32) mmol/L BUN 9 (9-20) mg/dL Creatinine 0.67 (0.66-1.25) mg/dL Estimated GFR > 60 (>60) mL/min BUN/Creatinine Ratio 13.4 (6-22) Glucose 87 (70-99) mg/dL Calcium 8.5 (8.4-10.2) mg/dL Total Bilirubin 2.3 H (0.2-1.3) mg/dL AST 59 (17-59) IU/L ALT 35 (<50) IU/L Alkaline Phosphatase 72 (38-126) U/L Total Protein 8.2 (6.3-8.2) g/dL Albumin 4.7 (3.5-5.0) g/dL Globulin 3.5 (1.7-4.1) g/dL Albumin/Globulin Ratio 1.3 (1.0-2.8) MDM Narrative Medical decision making narrative: Labs show show white count of 10 hemoglobin of 9.9 platelets of 270. Electrolytes and BUN creatinine, bilirubin is 2.3 improved from priors LFTs are negative. Reticulocyte 6. Patient had fluids and narcotics. Patient has had several visits recently we did discuss if he feels he was reaching a point where he feels admission although his labs are overall improved from prior visits. Patient would like to return home. Discharge Plan Departure Patient Disposition: Home Clinical Impression: Sickle cell anemia with pain Activity Restrictions/Additional Instructions: Activity Restrictions/Additional Instructions: I hope you continue to feel improved. Please follow up in the next week for recheck. Please return if you have new or worsening symptoms or any other new or concerning changes. Prescriptions: No Action cholecalciferol (vitamin D3) 10 mcg (400 unit) capsule 20 mcg PO DAILY Qty: 180 0RF Rx Instructions: Start two capsules daily after 6 weeks of 1250mcg weekly dosing. hydroxyurea (sickle cell) 400 mg capsule 400 mg PO DAILY Qty: 90 3RF duloxetine 60 mg capsule,delayed release(DR/EC) 60 mg PO DAILY Qty: 90 2RF ondansetron 4 mg tablet,disintegrating 4 mg PO Q8H PRN (Reason: nausea and vomiting) Qty: 20 0RF albuterol sulfate 90 mcg/actuation HFA aerosol inhaler 2 puff inhalation Q6H PRN (Reason: wheezing) hydrocodone-acetaminophen 10-325 mg Tablet 1 tab PO Q4HR PRN (Reason: Pain, Moderate (4-6)) Qty: 20 0RF doxycycline hyclate 100 mg Tablet 100 mg PO BID Qty: 20 0RF naloxone 4 mg/actuation spray,non-aerosol 1 spray intranasal PRN PRN (Reason: Opioid Overdose) Qty: 4 0RF Referrals: Jen Albarran, [facility] [Primary Care Provider] - Stand Alone Forms: Patient Portal/API/Survey
[2024-12-31 08:56] VITALS: BP 103/60; PULSE 70; RESP 14; O2SAT 96
== END 2024-12-31 09:38 | disposition home or self-care (01) ==
PROVIDERS: Emergency Medicine; Emergency Provider Emergency Medicine; PCP Nurse Practitioner Family
DX: D57.00 Hb-SS disease with crisis, unspecified (principal)
CPT/HCPCS: 36415; 80053; 85025; 85045; 96361; 96374; 96376; 99284; J1171

== ENCOUNTER 2025-01-04 18:50 | Emergency (ER) | payer OTHER, SELFPAY ==
[2024-11-18 12:23] VITALS: BMI 18.6
[2025-01-04] VITALS (8 sets, daily range): BP systolic 97–112; BP diastolic 56–62; PULSE 66–104; RESP 18–20; TEMP 36.6; O2SAT 96–98; BMI 18.6
--- NOTE | 2025-01-04 20:25 | ED.BACK ---
HPI - Back Pain/Injury General Chief Complaint: Back Pain/Injury Stated Complaint: Body Pains Time Seen by Provider: 01/04/25 20:09 Source: patient History of Present Illness HPI Narrative: 24-year-old gentleman history of sickle cell disease prior history of splenectomy prior history of stroke with residual left-sided deficit was celebrating his brother's 17th birthday running around and celebrating and overdid it with complaints of pain all over his body that he relates to his sickle cell crisis. He denies any fever, chills, chest pain, shortness of breath, cough, congestion, nausea, vomiting, diarrhea, or any urinary complaints. Other than what is stated 14 point review of system is negative. Related Data Home Medications Medication Instructions Recorded Confirmed albuterol sulfate 90 mcg/actuation 2 puff inhalation Q6H PRN wheezing 11/18/24 12/04/24 aerosol inhaler Previous Rx's Medication Instructions Recorded ondansetron 4 mg disintegrating 4 mg PO Q8H PRN nausea and 10/02/24 tablet vomiting #20 tabs cholecalciferol (vitamin D3) 10 20 mcg (2 x 10 mcg (400 unit)) PO 10/25/24 mcg (400 unit) capsule DAILY #180 caps hydrocodone 5 mg-acetaminophen 325 1 tab PO Q6H PRN pain #14 tabs 11/02/24 mg tablet doxycycline hyclate 100 mg tablet 100 mg PO BID #20 tabs 11/24/24 hydrocodone 10 mg-acetaminophen 1 tab PO Q4HR PRN Pain, Moderate 11/24/24 325 mg tablet (4-6) #20 tabs naloxone 4 mg/actuation nasal spray 1 spray intranasal PRN PRN Opioid 11/24/24 Overdose #4 ea duloxetine 60 mg capsule,delayed 60 mg PO DAILY #90 caps 12/04/24 release hydroxyurea (sickle cell) 400 mg 400 mg PO DAILY #90 caps 12/04/24 capsule Allergies Allergy/AdvReac Type Severity Reaction Status Date / Time No Known Drug Allergies Allergy Verified 12/04/24 11:35 Review of Systems Review of Systems ROS Unobtainable: All systems reviewed & are unremarkable except as noted in HPI and below Patient History Medical History Vitamin D deficiency PTSD (post-traumatic stress disorder) Depression Anxiety Seizure Anemia Avascular necrosis of bone Contracture, left elbow Contracture, left hand CVA (cerebral vascular accident) Sickle cell anemia Surgical History History of shoulder surgery 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 Family History Father Cancer Sickle cell trait Lupus Mother Sickle cell trait Brother Sickle cell trait Social History household members: significant other Smoking Status: Current some day smoker alcohol intake: never Smoking Status: Current some day smoker tobacco type: cigarettes and vaping alcohol intake frequency: holidays/special occasions only Exam Narrative Exam Narrative: GENERAL: [24] year old patient appears stated age. Well-developed patient, in mild distress. HEAD: Atraumatic. Normocephalic. EYES: Pupils equal round and reactive. Extraocular motions intact. No scleral icterus. No injection or drainage. ENT: Nose without bleeding, purulent drainage. Throat without erythema, tonsillar hypertrophy or exudate. Airway patent. NECK: Trachea midline. Non tender CARDIOVASCULAR: Regular rate and rhythm without murmurs, gallops, or rubs. RESPIRATORY: Clear to auscultation. Breath sounds equal bilaterally. No wheezes, rales, or rhonchi. GASTROINTESTINAL: Abdomen soft, non-tender, nondistended. EXTREMITIES: No edema or joint tenderness. LUE contracture and atropy with wrist chronically hyperflexed BACK: Nontender without deformity or crepitance. No flank tenderness. NEURO: AOx3. Moving all extremities spontaneously SKIN: No rash or erythema of visible areas Initial Vital Signs Initial Vital Signs: Vital Signs Temperature 98 F 01/04/25 19:23 Pulse Rate 104 H 01/04/25 19:23 Respiratory Rate 18 01/04/25 19:23 Blood Pressure 97/56 L 01/04/25 19:23 Pulse Oximetry 98 01/04/25 19:23 Oxygen Delivery Method Room Air 01/04/25 19:23 Course Orders Ordered: ED Orders 01/04/25 20:45 CBC Auto Diff [Complete Blood Count AUTO DIFF] Stat CMP [Comprehensive Metabolic Panel] Stat Reticulocyte Count, Percent Stat Discontinued Medications Hydromorphone HCl (Hydromorphone 1 Mg Inj) 1 mg IV NOW ONE Stop: 01/04/25 20:30 Last Admin: 01/04/25 20:41 Dose: 1 mg Documented By: INO Hydromorphone HCl (Hydromorphone 1 Mg Inj) 1 mg IV NOW ONE Stop: 01/04/25 21:51 Last Admin: 01/04/25 22:04 Dose: 1 mg Documented By: INO Lactated Ringer's (Lactated Ringers) 1,000 mls @ 1,000 mls/hr IV BOLUS ONE Stop: 01/04/25 21:28 Last Infusion: 01/04/25 22:45 Dose: Infused Documented By: Admin: 01/04/25 20:41 Dose: 1,000 mls/hr Documented By: INO Vital Signs Vital signs: Vital Signs - 8 hr 01/04/25 19:23 01/04/25 20:49 01/04/25 21:00 Temperature 98 F Pulse Rate 104 H 86 86 Respiratory Rate 18 Blood Pressure 97/56 L Pulse Oximetry 98 97 96 Oxygen Delivery Method Room Air 01/04/25 21:30 01/04/25 22:00 Temperature Pulse Rate 74 71 Respiratory Rate Blood Pressure Pulse Oximetry 96 97 Oxygen Delivery Method MDM - Back Pain/Injury Lab Data 01/04/25 20:45 01/04/25 20:45 Labs: Lab Results 01/04/25 Range/Units 20:45 WBC 16.4 H (4.5-11.0) X10^3/uL RBC 3.95 L (4.5-5.9) X10^6/uL Hgb 9.5 L (13.5-17.5) g/dL Hct 28.4 L (41-53) % MCV 71.9 L (80-100) fL MCH 24.0 L (26-34) PG MCHC 33.3 (30-36) % RDW 18.6 H (11.6-14.8) % Plt Count 310 (150-400) X10^3/uL Neut % (Auto) Not Reportable Lymph % (Auto) Not Reportable Iron % (Auto) Not Reportable Eos % (Auto) Not Reportable Baso % (Auto) Not Reportable Lymph # (Auto) Not Reportable Iron # (Auto) Not Reportable Baso # (Auto) Not Reportable Total Counted 100 Seg Neutrophils % 68.0 (38-70) % Band Neutrophils % 2.0 L (3-7) % Lymphocytes % (Manual) 23.0 L (25-45) % Monocytes % (Manual) 7.0 (2-11) % Neutrophils # (Manual) 43446 H (2124-2636) /uL Nucleated RBCs 4 H ( - 0) #/Diff RBC Morphology See below Anisocytosis 2+ H Microcytosis 1+ H Sickle Cells 1+ H Target Cells 2+ H Schistocytes 1+ H Percent Retic 5.4 H (0.9-2.6) % Sodium 139 (137-145) mmol/L Potassium 3.7 (3.4-5.1) mmol/L Chloride 106 (98-107) mmol/L Carbon Dioxide 21 L (22-32) mmol/L BUN 12 (9-20) mg/dL Creatinine 0.76 (0.66-1.25) mg/dL Estimated GFR > 60 (>60) mL/min BUN/Creatinine Ratio 15.8 (6-22) Glucose 88 (70-99) mg/dL Calcium 8.8 (8.4-10.2) mg/dL Total Bilirubin 3.7 H (0.2-1.3) mg/dL AST 51 (17-59) IU/L ALT 29 (<50) IU/L Alkaline Phosphatase 80 (38-126) U/L Total Protein 8.7 H (6.3-8.2) g/dL Albumin 4.9 (3.5-5.0) g/dL Globulin 3.8 (1.7-4.1) g/dL Albumin/Globulin Ratio 1.3 (1.0-2.8) MDM Narrative Medical decision making narrative: All lab work, vital signs, nurse triage note, previous ER visits, and all imaging study all reviewed. Patient given normal saline 1 L bolus along with Dilaudid here. Patient had white count of 16.4 hemoglobin 9.5 platelet 310 his% retic count was 5.4 T bili was 3.7. Patient feels much better on reexamination and would like to go home at this time. Differential diagnosis includes sickle cell crisis, acute chest syndrome, sickle cell with anemia Discharge Plan Departure Patient Disposition: Home Clinical Impression: Sickle cell anemia with pain Instructions: DI for Sickle Cell Anemia, Pain Crisis -- Adult Activity Restrictions/Additional Instructions: Return with new or worsening. Follow up with your real estate consultant at your next scheduled appointment. Prescriptions: No Action cholecalciferol (vitamin D3) 10 mcg (400 unit) capsule 20 mcg PO DAILY Qty: 180 0RF Rx Instructions: Start two capsules daily after 6 weeks of 1250mcg weekly dosing. hydroxyurea (sickle cell) 400 mg capsule 400 mg PO DAILY Qty: 90 3RF duloxetine 60 mg capsule,delayed release(DR/EC) 60 mg PO DAILY Qty: 90 2RF ondansetron 4 mg tablet,disintegrating 4 mg PO Q8H PRN (Reason: nausea and vomiting) Qty: 20 0RF albuterol sulfate 90 mcg/actuation HFA aerosol inhaler 2 puff inhalation Q6H PRN (Reason: wheezing) hydrocodone-acetaminophen 10-325 mg Tablet 1 tab PO Q4HR PRN (Reason: Pain, Moderate (4-6)) Qty: 20 0RF doxycycline hyclate 100 mg Tablet 100 mg PO BID Qty: 20 0RF naloxone 4 mg/actuation spray,non-aerosol 1 spray intranasal PRN PRN (Reason: Opioid Overdose) Qty: 4 0RF Referrals: Jen Albarran FNP-BC [Primary Care Provider] - Stand Alone Forms: Patient Portal/API/Survey
[2025-01-04] MEDS: HYDROMORPHONE 1 MG INJ IV ×2 (20:41→22:04)
[2025-01-04] MEDS: LACTATED RINGERS 1,000 ML 1000 ML IV (20:41)
[2025-01-04 21:00] LABS: Add Manual Diff / Slide Review YES; Hematocrit 28.4 % (41-53); Hemoglobin 9.5 g/dL (13.5-17.5); Mean Corpuscular HGB Conc 33.3 % (30-36); Mean Corpuscular Volume 71.9 fL (80-100); Platelet Count 310 X10^3/uL (150-400); Red Blood Cell Count 3.95 X10^6/uL (4.5-5.9); Red Cell Distribution Width 18.6 % (11.6-14.8); White Blood Cell Count 16.4 X10^3/uL (4.5-11.0)
[2025-01-04 21:02] LABS: Reticulocyte Count, Percent 5.4 % (0.9-2.6)
[2025-01-04 21:03] LABS: Alanine Aminotransferase 29 IU/L (<50); Albumin 4.9 g/dL (3.5-5.0); Albumin Globulin Ratio 1.3 (1.0-2.8); Alkaline Phosphatase 80 U/L (38-126); Aspartate Aminotransferase 51 IU/L (17-59); BUN Creatinine Ratio 15.8 (6-22); Bilirubin Total 3.7 mg/dL (0.2-1.3); Blood Urea Nitrogen 12 mg/dL (9-20); Calcium 8.8 mg/dL (8.4-10.2); Carbon Dioxide 21 mmol/L (22-32); Chloride 106 mmol/L (98-107); Estimated Glomerular Filt Rate > 60 mL/min (>60); Globulin 3.8 g/dL (1.7-4.1); Glucose 88 mg/dL (70-99); HEMOLYSIS < 15 (0-50); Potassium 3.7 mmol/L (3.4-5.1); Sodium 139 mmol/L (137-145); Total Protein 8.7 g/dL (6.3-8.2)
[2025-01-04 21:35] LABS: Neutrophils Absolute Manual 11480 /uL (3000-5900); Nucleated Red Blood Cells 4 #/Diff; Sickle Cells 1+; Target Cells 2+; Total Cells Counted 100
[2025-01-04 21:36] LABS: Anisocytosis 2+; Microcytosis 1+
[2025-01-04 21:37] LABS: Schistocytes 1+
== END 2025-01-04 23:06 | disposition home or self-care (01) ==
PROVIDERS: Emergency Provider Family Medicine; PCP Nurse Practitioner Family
DX: D57.00 Hb-SS disease with crisis, unspecified (principal)
CPT/HCPCS: 80053; 85007; 85025; 85045; 96361; 96374; 96376; 99283; 99284; J1171

== ENCOUNTER 2025-01-12 04:10 | Emergency (ER) | payer OTHER, SELFPAY ==
[2024-11-18 12:23] VITALS: BMI 18.6
[2025-01-12 04:29] VITALS: PULSE 71; O2SAT 97
[2025-01-12 04:30] VITALS: BP 100/56; BP 102/57; PULSE 70; PULSE 71; RESP 21; TEMP 36.6; O2SAT 97; O2SAT 98; BMI 18.6
--- NOTE | 2025-01-12 04:55 | ED.BACK ---
HPI - Back Pain/Injury General Chief Complaint: Back Pain/Injury Stated Complaint: Poss Sickle Cell Crisis Time Seen by Provider: 01/12/25 04:26 Source: patient History of Present Illness HPI Narrative: 24-year-old young man with a history of sickle cell disease, prior stroke, residual left-sided deficit after a stroke when he was a child presents today complaining of back pain and arm pain which typically heralds worsening sickle event, comes in to try and prevent crisis. He states that typically fluids and pain medication are effective. In reviewing notes he was seen here on December 25, 08 29, , and again on January 12, today. No complaints of headache, abdominal pain, chest pain or shortness of breath Related Data Home Medications Medication Instructions Recorded Confirmed albuterol sulfate 90 mcg/actuation 2 puff inhalation Q6H PRN wheezing 11/18/24 12/04/24 aerosol inhaler Previous Rx's Medication Instructions Recorded ondansetron 4 mg disintegrating 4 mg PO Q8H PRN nausea and 10/02/24 tablet vomiting #20 tabs cholecalciferol (vitamin D3) 10 20 mcg (2 x 10 mcg (400 unit)) PO 10/25/24 mcg (400 unit) capsule DAILY #180 caps hydrocodone 5 mg-acetaminophen 325 1 tab PO Q6H PRN pain #14 tabs 11/02/24 mg tablet doxycycline hyclate 100 mg tablet 100 mg PO BID #20 tabs 11/24/24 hydrocodone 10 mg-acetaminophen 1 tab PO Q4HR PRN Pain, Moderate 11/24/24 325 mg tablet (4-6) #20 tabs naloxone 4 mg/actuation nasal spray 1 spray intranasal PRN PRN Opioid 11/24/24 Overdose #4 ea duloxetine 60 mg capsule,delayed 60 mg PO DAILY #90 caps 12/04/24 release hydroxyurea (sickle cell) 400 mg 400 mg PO DAILY #90 caps 12/04/24 capsule hydrocodone 5 mg-acetaminophen 325 1 tab PO BEDTIME PRN pain #20 tabs 01/12/25 mg tablet hydroxyurea (sickle cell) 400 mg 400 mg PO DAILY #90 caps 01/12/25 capsule Allergies Allergy/AdvReac Type Severity Reaction Status Date / Time No Known Drug Allergies Allergy Verified 12/04/24 11:35 Review of Systems Review of Systems Narrative: Pertinent positive and negative findings as per HPI Patient History Medical History Vitamin D deficiency PTSD (post-traumatic stress disorder) Depression Anxiety Seizure Anemia Avascular necrosis of bone Contracture, left elbow Contracture, left hand CVA (cerebral vascular accident) Sickle cell anemia Surgical History History of shoulder surgery 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 Family History Father Cancer Sickle cell trait Lupus Mother Sickle cell trait Brother Sickle cell trait Social History household members: significant other Smoking Status: Never smoker alcohol intake: never Smoking Status: Never smoker tobacco type: cigarettes and vaping alcohol intake frequency: holidays/special occasions only Exam Initial Vital Signs Initial Vital Signs: Vital Signs Pulse Rate 71 01/12/25 04:29 Pulse Oximetry 97 01/12/25 04:29 General: Healthy appearing, Able to give a complete and coherent history. HEENT: Moist mucous Neck: No JVD, supple Respiratory: Full and symmetrical air movement Cardiac: Regular rate and rhythm no murmurs no bruits Abdomen: Soft, nontender, no rebound or guarding, no flank pain Skin: Warm and dry, no rashes Neurologic: Grossly neurologically intact with no obvious asymmetries or abnormalities Extremities: No trauma, No obvious muscle spasm or trauma to extremities or back, contracture to the left upper extremity after stroke Psych: Cooperative, appropriate insight and affect Course Orders Ordered: ED Orders 01/12/25 04:35 Complete Blood Count AUTO DIFF Stat Comprehensive Metabolic Panel Stat Hydromorphone HCl (Hydromorphone 1 Mg Inj) 1 mg IV PRN PRN PRN Reason: Pain, Moderate (4-6) Last Admin: 01/12/25 05:59 Dose: 1 mg Documented By: TUNG Discontinued Medications Hydromorphone HCl (Hydromorphone 1 Mg Inj) 1 mg IV NOW ONE Stop: 01/12/25 05:01 Last Admin: 01/12/25 05:14 Dose: 1 mg Documented By: TUNG Sodium Chloride (Normal Saline 0.9%) 1,000 mls @ 1,000 mls/hr IV BOLUS ONE Stop: 01/12/25 05:59 Last Infusion: 01/12/25 06:11 Dose: Infused Documented By: Admin: 01/12/25 05:14 Dose: 1,000 mls/hr Documented By: TUNG Sodium Chloride (Normal Saline 0.9%) 1,000 mls @ 1,000 mls/hr IV BOLUS ONE Stop: 01/12/25 06:00 Last Admin: 01/12/25 06:00 Dose: 1,000 mls/hr Documented By: TUNG Vital Signs Vital signs: Vital Signs - 8 hr 01/12/25 04:29 01/12/25 04:30 01/12/25 04:30 Temperature 97.8 F Pulse Rate 71 70 Respiratory Rate 21 Blood Pressure 102/57 L 100/56 L Pulse Oximetry 97 98 Oxygen Delivery Method Room Air 01/12/25 04:30 01/12/25 05:00 01/12/25 05:00 Temperature Pulse Rate 71 68 Respiratory Rate Blood Pressure 104/56 L Pulse Oximetry 97 97 Oxygen Delivery Method 01/12/25 05:30 01/12/25 05:30 01/12/25 06:00 Temperature Pulse Rate 66 Respiratory Rate Blood Pressure 104/58 L 104/62 Pulse Oximetry 97 Oxygen Delivery Method 01/12/25 06:00 Temperature Pulse Rate 61 Respiratory Rate 17 Blood Pressure Pulse Oximetry 97 Oxygen Delivery Method Room Air MDM - Back Pain/Injury Lab Data 01/12/25 04:35 01/12/25 04:35 Labs: Lab Results 01/12/25 Range/Units 04:35 WBC 12.2 H (4.5-11.0) X10^3/uL RBC 3.95 L (4.5-5.9) X10^6/uL Hgb 9.9 L (13.5-17.5) g/dL Hct 28.4 L (41-53) % MCV 71.8 L (80-100) fL MCH 25.0 L (26-34) PG MCHC 34.8 (30-36) % RDW 19.5 H (11.6-14.8) % Plt Count 294 (150-400) X10^3/uL Neut % (Auto) 42.5 L (50-75) % Lymph % (Auto) 49.6 H (25-40) % [place] % (Auto) 5.8 (3-14) % Eos % (Auto) 1.5 L (2-4) % Baso % (Auto) 0.6 (0-2) % Neut # (Auto) 5200 (3561-3324) /uL Lymph # (Auto) 6100 H (9323-8271) /uL [place] # (Auto) 700 (0-900) /uL Eos # (Auto) 200 (0-450) /uL Baso # (Auto) 100 (0-100) /uL Sodium 139 (137-145) mmol/L Potassium 3.8 (3.4-5.1) mmol/L Chloride 104 (98-107) mmol/L Carbon Dioxide 24 (22-32) mmol/L BUN 9 (9-20) mg/dL Creatinine 0.65 L (0.66-1.25) mg/dL Estimated GFR > 60 (>60) mL/min BUN/Creatinine Ratio 13.8 (6-22) Glucose 96 (70-99) mg/dL Calcium 8.6 (8.4-10.2) mg/dL Total Bilirubin 2.1 H (0.2-1.3) mg/dL AST 47 (17-59) IU/L ALT 21 (<50) IU/L Alkaline Phosphatase 67 (38-126) U/L Total Protein 7.9 (6.3-8.2) g/dL Albumin 4.3 (3.5-5.0) g/dL Globulin 3.6 (1.7-4.1) g/dL Albumin/Globulin Ratio 1.2 (1.0-2.8) MDM Narrative Medical decision making narrative: CC: sickle cell crisis Complicating co-morbidities: documented sickle disease, asthma, Data collected from: patient Medical records reviewed: medical records reviewed, he was admitted to the hospital with sickle cell crisis and shoulder pain that did not end up being a septic joint in November, he has been seen in the emergency department for episodes of continued pain with fluids and narcotics for 4 times, today is 5th within the last 2 weeks. Differential considered: Sickle cell crisis, infection, opioid use disorder is considered Exam documented above, pertinent findings include: appropriate gentleman, in moderate pain, no significant physical findings beyond his complaints of arm and back pain Lab Test results independently reviewed as above. Pertinent findings: CBC shows mild leukocytosis at 12.2. H and H is lately increased from most recent visit, seemingly at his baseline chemistries are reassuring normal creatinine, total bili is down from his baseline currently at 2.1. LFTs are otherwise unremarkable Treatments: 2 L of normal saline, 1 mg of Dilaudid Re-evaluations: feeling significantly better Discussion: 24-year-old gentleman with sickle cell disease, increased ER visits over the last couple of weeks. Asked him why this has happened. He notes that there has been a number of life circumstances that have prevented him getting into his primary care physician. Typically she will give him a small dose of Vicodin to have available at home so that he is able to prevent the severe pain continue drinking and avoid ER visits. I am willing to give him a small prescription of Vicodin to use at home if this does safe him an ER visit. I did reiterate to him it is important to get back into his primary care provider. He is feeling better at this point and he is safe for discharge home Discharge Plan Departure Patient Disposition: Home Clinical Impression: Sickle cell disease with crisis Instructions: DI for Sickle Cell Anemia, Pain Crisis -- Adult Activity Restrictions/Additional Instructions: thank you for coming in today I am sorry that you are having increasing pain again. You did improve with 2 L of saline and IV Dilaudid. You said that you have had difficulty getting back into your primary care provider for variety of reasons and because of that, have not refilled outpatient Vicodin that she will usually prescribed. I will also refill your hydroxyurea prescription. I have given you a prescription for they can to use for severe pain in hopes that this may prevent 1 or 2 ER visits for you. It is important that you do get back to your primary care provider and follow up. Prescriptions: New hydroxyurea (sickle cell) 400 mg capsule 400 mg PO DAILY Qty: 90 3RF hydrocodone-acetaminophen 5-325 mg tablet 1 tab PO BEDTIME PRN (Reason: pain) Qty: 20 0RF No Action cholecalciferol (vitamin D3) 10 mcg (400 unit) capsule 20 mcg PO DAILY Qty: 180 0RF Rx Instructions: Start two capsules daily after 6 weeks of 1250mcg weekly dosing. hydroxyurea (sickle cell) 400 mg capsule 400 mg PO DAILY Qty: 90 3RF duloxetine 60 mg capsule,delayed release(DR/EC) 60 mg PO DAILY Qty: 90 2RF ondansetron 4 mg tablet,disintegrating 4 mg PO Q8H PRN (Reason: nausea and vomiting) Qty: 20 0RF albuterol sulfate 90 mcg/actuation HFA aerosol inhaler 2 puff inhalation Q6H PRN (Reason: wheezing) hydrocodone-acetaminophen 10-325 mg Tablet 1 tab PO Q4HR PRN (Reason: Pain, Moderate (4-6)) Qty: 20 0RF doxycycline hyclate 100 mg Tablet 100 mg PO BID Qty: 20 0RF naloxone 4 mg/actuation spray,non-aerosol 1 spray intranasal PRN PRN (Reason: Opioid Overdose) Qty: 4 0RF Referrals: Jen Albarran, [employer] [Primary Care Provider] - Stand Alone Forms: Patient Portal/API/Survey
[2025-01-12 05:00] VITALS: BP 104/56; PULSE 68; O2SAT 97
[2025-01-12 05:11] LABS: Add Manual Diff / Slide Review NO; Basophils Absolute Auto 100 /uL (0-100); Basophils Percent Auto 0.6 % (0-2); Eosinophils Absolute Auto 200 /uL (0-450); Eosinophils Percent Auto 1.5 % (2-4); Hematocrit 28.4 % (41-53); Hemoglobin 9.9 g/dL (13.5-17.5); Lymphocytes Absolute Auto 6100 /uL (1100-4500); Lymphocytes Percent Auto 49.6 % (25-40); Mean Corpuscular HGB Conc 34.8 % (30-36); Mean Corpuscular Volume 71.8 fL (80-100); Monocytes Absolute Auto 700 /uL (0-900); Monocytes Percent Auto 5.8 % (3-14); Neutrophils Absolute Auto 5200 /uL (1500-7000); Neutrophils Percent Auto 42.5 % (50-75); Platelet Count 294 X10^3/uL (150-400); Red Blood Cell Count 3.95 X10^6/uL (4.5-5.9); Red Cell Distribution Width 19.5 % (11.6-14.8); White Blood Cell Count 12.2 X10^3/uL (4.5-11.0)
[2025-01-12 05:14] LABS: Alanine Aminotransferase 21 IU/L (<50); Albumin 4.3 g/dL (3.5-5.0); Albumin Globulin Ratio 1.2 (1.0-2.8); Alkaline Phosphatase 67 U/L (38-126); Aspartate Aminotransferase 47 IU/L (17-59); BUN Creatinine Ratio 13.8 (6-22); Bilirubin Total 2.1 mg/dL (0.2-1.3); Blood Urea Nitrogen 9 mg/dL (9-20); Calcium 8.6 mg/dL (8.4-10.2); Carbon Dioxide 24 mmol/L (22-32); Chloride 104 mmol/L (98-107); Estimated Glomerular Filt Rate > 60 mL/min (>60); Globulin 3.6 g/dL (1.7-4.1); Glucose 96 mg/dL (70-99); HEMOLYSIS 27 (0-50); Potassium 3.8 mmol/L (3.4-5.1); Sodium 139 mmol/L (137-145); Total Protein 7.9 g/dL (6.3-8.2)
[2025-01-12] MEDS: HYDROMORPHONE 1 MG INJ IV ×2 (05:14→05:59)
[2025-01-12] MEDS: SODIUM CHLORIDE 0.9% 1,000 ML 1000 ML IV ×2 (05:14→06:00)
[2025-01-12 05:30] VITALS: BP 104/58; PULSE 66; O2SAT 97
[2025-01-12 06:00] VITALS: BP 104/62; PULSE 61; RESP 17; O2SAT 97
[2025-01-12 06:30] VITALS: BP 111/65; PULSE 74; RESP 18; O2SAT 99
== END 2025-01-12 06:55 | disposition home or self-care (01) ==
PROVIDERS: Emergency Provider Emergency Medicine; PCP Nurse Practitioner Family
DX: D57.00 Hb-SS disease with crisis, unspecified (principal)
CPT/HCPCS: 36415; 80053; 85025; 96361; 96374; 96375; 99284; J1171

== ENCOUNTER 2025-01-15 02:16 | Observation (INO) | payer OTHER, SELFPAY ==
[2024-11-18 12:23] VITALS: BMI 18.6
[2025-01-15] VITALS (26 sets, daily range): BP systolic 99–125; BP diastolic 58–84; PULSE 57–86; RESP 13–20; TEMP 35.7–36.6; O2SAT 93–99; BMI 18.6; BMI 19.5
--- NOTE | 2025-01-15 02:21 | DI.RAD.S_ITS ---
PROCEDURE: XR CHEST 1V INDICATIONS: chest pain TECHNIQUE: One view of the chest was acquired. COMPARISON: [facility], CR, XR CHEST 1V, 11/02/2024, 12:34. [facility], CR, XR CHEST 1V, 10/23/2024, 16:19. FINDINGS: Surgical changes and devices: None. Lungs and pleura: Lungs are clear. No pleural effusions or pneumothorax. Mediastinum: Mediastinal contours appear normal. Heart size is normal. Bones and chest wall: No suspicious bony lesions. Overlying soft tissues appear unremarkable. IMPRESSION: No acute cardiopulmonary abnormality is seen. There is no significant discrepancy when compared to the overnight preliminary report. Approved by: Mauricio Davila M.D. on 01/15/2025 at 7:42
[2025-01-15] MEDS: ONDANSETRON 4 MG/2 ML INJ IV ×3 (02:30→11:32)
[2025-01-15] MEDS: HYDROMORPHONE 1 MG INJ IV ×2 (02:30→03:13)
--- NOTE | 2025-01-15 02:35 | ED_ITS ---
HPI - Back Pain/Injury General Chief Complaint: Back Pain/Injury Stated Complaint: Flare Ups, Back Pain Time Seen by Provider: 01/15/25 02:20 Source: patient History of Present Illness HPI Narrative: 24-year-old male with history of sickle cell disease, remote stroke with subsequent left hemiparesis and left upper extremity flexion contracture, prior splenectomy, frequent flares of his sickle disease, sometimes responsive to fluids in analgesics and oxygen with discharged home, occasionally admitted, now having low back pain which is typical for his flare symptoms, onset 4:00 p.m. yesterday. No trauma or new activities or injuries. Denies fevers or chills. Denies cough shortness of breath. Denies chest pain. He has hydrocodone to use at home, tried to dose which did not help. Denies nausea vomiting diarrhea. MD Complaint: back pain Related Data Home Medications ?Medication ?Instructions ?Recorded ?Confirmed albuterol sulfate 90 mcg/actuation 2 puff inhalation Q 6H PRN wheezing 11/18/24 12/04/24 aerosol inhaler Previous Rx's ?Medication ?Instructions ?Recorded ondansetron 4 mg disintegrating 4 mg PO Q8H PRN nausea and 10/02/24 tablet vomiting #20 tabs cholecalciferol (vitamin D3) 10 20 mcg (2 x 10 mcg (40 0 unit)) PO 10/25/24 mcg (400 unit) capsule DAILY #180 caps doxycycline hyclate 100 mg tablet 100 mg PO BID #20 ta bs 11/24/24 hydrocodone 10 mg-acetaminophen 1 tab PO Q4HR PRN Pain , Moderate 11/24/24 325 mg tablet (4-6) #20 tabs naloxone 4 mg/actuation nasal spray 1 spray intranasal PRN PRN Opioid 11/24/24 Overdose #4 ea duloxetine 60 mg capsule,delayed 60 mg PO DAILY #90 ca ps 12/04/24 release hydroxyurea (sickle cell) 400 mg 400 mg PO DAILY #90 c aps 12/04/24 capsule hydrocodone 5 mg-acetaminophen 325 1 tab PO BEDTIME RI N pain #20 tabs 01/12/25 mg tablet hydroxyurea (sickle cell) 400 mg 400 mg PO DAILY #90 c aps 01/12/25 capsule Allergies Allergy/AdvReac Type Severity Reaction Status Date / Time No Known Drug Allergies Allergy Verified 12/04/24 11:35 Patient History Medical History Vitamin D deficiency PTSD (post-traumatic stress disorder) Depression Anxiety Seizure Anemia Avascular necrosis of bone Contracture, left elbow Contracture, left hand CVA (cerebral vascular accident) Sickle cell anemia Surgical History History of shoulder surgery 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 Family History Father Cancer Sickle cell trait Lupus Mother Sickle cell trait Brother Sickle cell trait Social History household members: significant other alcohol intake: never tobacco type: cigarettes and vaping alcohol intake frequency: holidays/special occasions only Exam Narrative Exam Narrative: GENERAL: Well-developed patient, in mild distress. HEAD: Atraumatic. Normocephalic. EYES: Pupils equal round and reactive. Extraocular motions intact. No scleral icterus. No injection or drainage. ENT: Nose without bleeding, purulent drainage. Throat without erythema, tonsillar hypertrophy or exudate. Airway patent. NECK: Trachea midline. Non tender CARDIOVASCULAR: Regular rate and rhythm without murmurs, gallops, or rubs. RESPIRATORY: Clear to auscultation. Breath sounds equal bilaterally. No wheezes, rales, or rhonchi. GASTROINTESTINAL: Abdomen soft, non-tender, nondistended. EXTREMITIES: Flexion contracture and atrophy to left upper extremity as in previous visits. BACK: Nontender without deformity or crepitance. No flank tenderness. NEURO: AOx3. Motor functions grossly nonfocal. Left-sided hemiparesis with left upper extremity flexion contraction noted, at baseline. SKIN: No rash or erythema of visible areas Initial Vital Signs Initial Vital Signs: Vital Signs Pulse Rate 86 01/15/25 02:19 Pulse Oximetry 97 01/15/25 02:19 Oxygen Delivery Method Nasal Cannula 01/15/25 02:19 Oxygen Flow Rate 2 01/15/25 02:19 Course Orders Ordered: ED Orders 01/15/25 02:21 XR chest 1V Stat Complete Blood Count AUTO DIFF Stat Comprehensive Metabolic Panel Stat Covid-19 + FLU A/B + RSV - PCR Stat Lipase Stat Troponin & CK Cardiac Panel Stat EKG-12 Lead Stat 01/15/25 02:22 Reticulocyte Count, Percent Stat 01/15/25 04:20 Urinalysis and Microscopic Stat Discontinued Medications Hydrocodone Bitart/Acetaminophen (Hydrocodone/Acet 5/325 Tablet) 1 tab PO NOW ONE Stop: 01/15/25 03:48 Last Admin: 01/15/25 03:54 Dose: 1 tab Hydromorphone HCl (Hydromorphone 1 Mg Inj) 1 mg IV NOW ONE Stop: 01/15/25 02:23 Last Admin: 01/15/25 02:30 Dose: 1 mg Documented By: TUNG Hydromorphone HCl (Hydromorphone 1 Mg Inj) 1 mg IV NOW ONE Stop: 01/15/25 02:58 Last Admin: 01/15/25 03:13 Dose: 1 mg Sodium Chloride (Normal Saline 0.9%) 1,000 mls @ 1,000 mls/hr IV BOLUS ONE Stop: 01/15/25 03:28 Last Infusion: 01/15/25 03:55 Dose: Infused Metoprolol Tartrate (Metoprolol Tartrate 5 Mg/5 Ml Inj) 5 mg IV NOW ONE Stop: 01/15/25 03:03 Last Admin: 01/15/25 03:28 Dose: Not Given Ondansetron HCl (Ondansetron 4 Mg/2 Ml Inj) 4 mg IV NOW ONE Stop: 01/15/25 02:23 Last Admin: 01/15/25 02:30 Dose: 4 mg Documented By: TUNG Ondansetron HCl (Ondansetron 4 Mg/2 Ml Inj) 4 mg IV NOW ONE Stop: 01/15/25 04:25 Last Admin: 01/15/25 04:27 Dose: 4 mg Vital Signs Vital signs: Vital Signs - 8 hr 01/15/25 02:19 01/15/25 02:20 01/15/25 02:20 Temperature Pulse Rate 86 74 Respiratory Rate Blood Pressure 119/69 Pulse Oximetry 97 98 Oxygen Delivery Method Nasal Cannula Oxygen Flow Rate 2 01/15/25 02:21 01/15/25 02:30 01/15/25 02:30 Temperature 97.9 F Pulse Rate 79 75 Respiratory Rate 20 Blood Pressure 119/69 120/79 Pulse Oximetry 96 98 Oxygen Delivery Method Room Air Oxygen Flow Rate 01/15/25 03:00 01/15/25 03:00 01/15/25 03:30 Temperature Pulse Rate 65 67 Respiratory Rate 17 Blood Pressure 105/72 Pulse Oximetry 94 99 Oxygen Delivery Method Room Air Oxygen Flow Rate 01/15/25 03:30 01/15/25 04:00 01/15/25 04:00 Temperature Pulse Rate 71 Respiratory Rate Blood Pressure 109/69 112/71 Pulse Oximetry 99 Oxygen Delivery Method Nasal Cannula Oxygen Flow Rate 2 01/15/25 04:18 01/15/25 04:18 Temperature Pulse Rate 69 Respiratory Rate Blood Pressure 110/71 Pulse Oximetry 97 Oxygen Delivery Method Nasal Cannula Oxygen Flow Rate 2 MDM - Back Pain/Injury Lab Data Attestation: I reviewed the patient's lab results. Lab results narrative: White blood cell count 64506, hemoglobin 9.4, platelets 283,000. Glucose 96. BUN 7 with creatinine 0.72. Serum CO2 22. Electrolytes normal. Total bilirubin 2.7 similarly elevated in the past, other liver functions normal. Troponin negative. COVID flu RSV negative. Reticulocyte count 7.0, similarly elevated in the past, higher values, some lower. 01/15/25 02:26 01/15/25 02:26 Labs: Lab Results 01/15/25 01/15/25 01/15/25 Range/Units 02:26 02:43 04:15 WBC 11.1 H (4.5-11.0) X10^3/uL RBC 3.92 L (4.5-5.9) X10^6/uL Hgb 9.4 L (13.5-17.5) g/dL Hct 28.2 L (41-53) % MCV 72.0 L (80-100) fL MCH 24.0 L (26-34) PG MCHC 33.3 (30-36) % RDW 19.1 H (11.6-14.8) % Plt Count 283 (150-400) X10^3/uL Neut % (Auto) 51.1 (50-75) % Lymph % (Auto) 29.6 (25-40) % [place] % (Auto) 14.5 H (3-14) % Eos % (Auto) 2.8 (2-4) % Baso % (Auto) 2.0 (0-2) % Neut # (Auto) 5700 (3466-6234) /uL Lymph # (Auto) 3300 (6425-6155) /uL [place] # (Auto) 1600 H (0-900) /uL Eos # (Auto) 300 (0-450) /uL Baso # (Auto) 200 H (0-100) /uL Percent Retic 7.0 H (0.9-2.6) % Sodium 139 (137-145) mmol/L Potassium 3.6 (3.4-5.1) mmol/L Chloride 107 (98-107) mmol/L Carbon Dioxide 22 (22-32) mmol/L BUN 7 L (9-20) mg/dL Creatinine 0.72 (0.66-1.25) mg/dL Estimated GFR > 60 (>60) mL/min BUN/Creatinine Ratio 9.7 (6-22) Glucose 96 (70-99) mg/dL Calcium 8.7 (8.4-10.2) mg/dL Total Bilirubin 2.7 H (0.2-1.3) mg/dL AST 47 (17-59) IU/L ALT 21 (<50) IU/L Alkaline Phosphatase 68 (38-126) U/L Total Creatine Kinase 142 (55-170) U/L Troponin I < 0.012 (0.01-0.034) ng/mL Total Protein 7.8 (6.3-8.2) g/dL Albumin 4.6 (3.5-5.0) g/dL Globulin 3.2 (1.7-4.1) g/dL Albumin/Globulin Ratio 1.4 (1.0-2.8) Lipase 51 (23-300) U/L Urine Color Yellow Urine Appearance Clear Urine pH 7.5 (4.5-8.0) Ur Specific [place] 1.015 (1.000-1.035) Urine Protein Negative (Negative) Urine Glucose (UA) Negative (Negative) g/dL Urine Ketones Negative (NEGATIVE) Urine Occult Blood Negative (Negative) Urine Nitrate Negative (Negative) Urine Bilirubin Negative (NEGATIVE) Urine Urobilinogen 0.2 (0.2) E.U./dL Ur Leukocyte Esterase Negative (NEGATIVE) Urine RBC None seen (0-5/HPF) Urine WBC None seen (0-5/HPF) Ur Squamous Epith Cells None seen (0-5/HPF) Urine Bacteria None seen (None) Ur Culture Indicated? Cult not indicated Vol Urine Centrifuged 10ml (spun) SARS-CoV-2 (PCR) Negative (Negative) Influenza A (RT-PCR) Flu a negative (NEGATIVE) Influenza B (RT-PCR) Flu b negative (NEGATIVE) RSV (PCR) Negative (Negative) ECG Data Attestation: I personally reviewed and interpreted this ECG as follows: Interpretation: Normal sinus rhythm with first-degree AV block, rate 82, RI 288. No obvious ST segment elevation or depression changes. QRS 92, QTC 479. MDM Narrative Medical decision making narrative: 24-year-old male with history of sickle disease, numerous frequent sickle flare presentations to the emergency department, occasionally admitted, now with typical low back pain presentation, not responsive to home hydrocodone regimen. Afebrile, sirs screen negative. Baseline neuro exam with left-sided hemiparesis and flexion contracture left upper extremity from remote childhood stroke. Labs, EKG, chest x-ray pending. COVID flu RSV swab pending. IV fluid bolus, IV Dilaudid/Zofran. EKG without obvious ischemic changes. Troponin negative. Chest x-ray. No acute process. See tele radiology report. Laboratory studies: White blood cell count 02377, hemoglobin 9.4, platelets 283,000. Glucose 96. BUN 7 with creatinine 0.72. Serum CO2 22. Electrolytes normal. Total bilirubin 2.7 similarly elevated in the past, other liver functions normal. Troponin negative. COVID flu RSV negative. Reticulocyte count 7.0, similarly elevated in the past, higher values, some lower. Still having pain, repeat IV 1 mg dose Dilaudid. Still having pain, will give oral hydrocodone repeat dose. 0400, still having pain, consider admission, patient feels like he is not controlled in his pain well enough to go home. Will query hospitalist. 0430, case discussed with hospitalist Dr. Johnson who accepts patient for admission Discharge Plan Departure Patient Disposition: Admitted as Observation Clinical Impression: Sickle cell anemia with crisis, Low back pain Admit Date/Time: 01/15/25 04:24 Admit Provider: Abebe Johnson
--- NOTE | 2025-01-15 02:36 | EKG_ITS ---
[place] [id number] [place] [id number] Test Date: 2025-01-15 Pat Name: Lucretia Keller Department: 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
[2025-01-15 02:41] LABS: Add Manual Diff / Slide Review NO; Basophils Absolute Auto 200 /uL (0-100); Eosinophils Absolute Auto 300 /uL (0-450); Eosinophils Percent Auto 2.8 % (2-4); Hematocrit 28.2 % (41-53); Hemoglobin 9.4 g/dL (13.5-17.5); Lymphocytes Absolute Auto 3300 /uL (1100-4500); Lymphocytes Percent Auto 29.6 % (25-40); Mean Corpuscular HGB Conc 33.3 % (30-36); Monocytes Absolute Auto 1600 /uL (0-900); Monocytes Percent Auto 14.5 % (3-14); Neutrophils Absolute Auto 5700 /uL (1500-7000); Neutrophils Percent Auto 51.1 % (50-75); Platelet Count 283 X10^3/uL (150-400); Red Blood Cell Count 3.92 X10^6/uL (4.5-5.9); Red Cell Distribution Width 19.1 % (11.6-14.8); White Blood Cell Count 11.1 X10^3/uL (4.5-11.0)
[2025-01-15] MEDS: SODIUM CHLORIDE 0.9% 1,000 ML 1000 ML IV (02:48)
[2025-01-15 02:53] LABS: Alanine Aminotransferase 21 IU/L (<50); Albumin 4.6 g/dL (3.5-5.0); Albumin Globulin Ratio 1.4 (1.0-2.8); Alkaline Phosphatase 68 U/L (38-126); Aspartate Aminotransferase 47 IU/L (17-59); BUN Creatinine Ratio 9.7 (6-22); Bilirubin Total 2.7 mg/dL (0.2-1.3); Blood Urea Nitrogen 7 mg/dL (9-20); Calcium 8.7 mg/dL (8.4-10.2); Carbon Dioxide 22 mmol/L (22-32); Chloride 107 mmol/L (98-107); Creatine Kinase 142 U/L (55-170); Estimated Glomerular Filt Rate > 60 mL/min (>60); Globulin 3.2 g/dL (1.7-4.1); Glucose 96 mg/dL (70-99); HEMOLYSIS < 15 (0-50); Lipase 51 U/L (23-300); Potassium 3.6 mmol/L (3.4-5.1); Sodium 139 mmol/L (137-145); Total Protein 7.8 g/dL (6.3-8.2)
[2025-01-15 03:04] LABS: Troponin I < 0.012 ng/mL (0.01-0.034)
[2025-01-15 03:24] LABS: Influenza A - CEPHEID Flu A NEGATIVE (NEGATIVE); Influenza B - CEPHEID Flu B NEGATIVE (NEGATIVE); Respiratory Syncytial Virus Negative (Negative)
[2025-01-15 03:27] LABS: COVID-19 CEPHEID 4-PLEX PCR Negative (Negative)
[2025-01-15] MEDS: HYDROCODONE/ACET 5/325 TABLET 1 TAB PO (03:54)
[2025-01-15 04:30] LABS: Appearance Urine UA CLEAR; Bilirubin Urine UA NEGATIVE (NEGATIVE); Color Urine UA YELLOW; Glucose Urine UA NEGATIVE (Negative); Ketones Urine UA NEGATIVE (NEGATIVE); Leukocyte Esterase Urine UA NEGATIVE (NEGATIVE); Nitrite Urine UA NEGATIVE (Negative); Occult Blood Urine UA NEGATIVE (Negative); Protein Urine UA NEGATIVE (Negative); Specific Gravity Urine UA 1.015 (1.000-1.035); Urobilinogen Urine UA 0.2 E.U./dL (0.2); pH Urine UA 7.5 (4.5-8.0)
[2025-01-15 04:41] LABS: Bacteria Urine None Seen; Culture Indicated Urine Cult Not Indicated; RBC Urine None Seen (0-5/HPF); Squamous Epithelial Cell Urine None Seen (0-5/HPF); Urine Volume 10mL (spun); WBC Urine None Seen (0-5/HPF)
[2025-01-15] MEDS: HYDROMORPHONE 0.5 MG INJ 1 MG IV ×7 (05:28→23:44)
--- NOTE | 2025-01-15 05:35 | P.HP_ITS ---
History of Present Illness History of Present Illness Date Patient Seen: 01/15/25 Time Patient Seen: 05:36 Chief complaint: Flare Ups, Back Pain Narrative: The pt is a 24 yo with a known hx of sickle cell anemia with chronic anemia, seizure disorder, & CVA who presents to the ER with c/o back pain. The pain started yesterday, from the neck to the feet bilat, sharp pain, rated 7 out of 10, constant, nothing makes it worse or better. last admit was 2 months ago, the CVA as a child with left sided PFSH Medical History Vitamin D deficiency PTSD (post-traumatic stress disorder) Depression Anxiety Seizure Anemia Avascular necrosis of bone Contracture, left elbow Contracture, left hand CVA (cerebral vascular accident) Sickle cell anemia Surgical History History of shoulder surgery 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 Family History Father Cancer Sickle cell trait Lupus Mother Sickle cell trait Brother Sickle cell trait Social History household members: significant other alcohol intake: never Meds Home Medications and Allergies Home Medications ?Medication ?Instructions ?Recorded ?Confirmed ?Type ondansetron 4 mg disintegrating 4 mg PO Q8H PRN nausea and 10/02/24 12/04/24 Rx tablet vomiting #20 tabs cholecalciferol (vitamin D3) 10 20 mcg (2 x 10 mcg (40 0 unit)) PO 10/25/24 12/04/24 Rx mcg (400 unit) capsule DAILY #180 caps albuterol sulfate 90 mcg/actuation 2 puff inhalation Q 6H PRN wheezing 11/18/24 12/04/24 History aerosol inhaler doxycycline hyclate 100 mg tablet 100 mg PO BID #20 ta bs 11/24/24 12/04/24 Rx hydrocodone 10 mg-acetaminophen 1 tab PO Q4HR PRN Pain , Moderate 11/24/24 12/04/24 Rx 325 mg tablet (4-6) #20 tabs naloxone 4 mg/actuation nasal spray 1 spray intranasal PRN PRN Opioid 11/24/24 12/04/24 Rx Overdose #4 ea duloxetine 60 mg capsule,delayed 60 mg PO DAILY #90 ca ps 12/04/24 12/04/24 Rx release hydroxyurea (sickle cell) 400 mg 400 mg PO DAILY #90 c aps 12/04/24 12/04/24 Rx capsule hydrocodone 5 mg-acetaminophen 325 1 tab PO BEDTIME RI N pain #20 tabs 01/12/25 Rx mg tablet hydroxyurea (sickle cell) 400 mg 400 mg PO DAILY #90 c aps 01/12/25 Rx capsule Allergies Allergy/AdvReac Type Severity Reaction Status Date / Time No Known Drug Allergies Allergy Verified 12/04/24 11:35 Exam Vital Signs (past 8 hours): - 01/15/25 02:19 01/15/25 02:20 01/15/25 02:20 Temperature Pulse Rate 86 74 Respiratory Rate Blood Pressure 119/69 Pulse Oximetry 97 98 Oxygen Delivery Method Nasal Cannula Oxygen Flow Rate 2 01/15/25 02:21 01/15/25 02:30 01/15/25 02:30 Temperature 97.9 F Pulse Rate 79 75 Respiratory Rate 20 Blood Pressure 119/69 120/79 Pulse Oximetry 96 98 Oxygen Delivery Method Room Air Oxygen Flow Rate 01/15/25 03:00 01/15/25 03:00 01/15/25 03:30 Temperature Pulse Rate 65 67 Respiratory Rate 17 Blood Pressure 105/72 Pulse Oximetry 94 99 Oxygen Delivery Method Room Air Oxygen Flow Rate 01/15/25 03:30 01/15/25 04:00 01/15/25 04:00 Temperature Pulse Rate 71 Respiratory Rate Blood Pressure 109/69 112/71 Pulse Oximetry 99 Oxygen Delivery Method Nasal Cannula Oxygen Flow Rate 2 01/15/25 04:18 01/15/25 04:18 01/15/25 04:30 Temperature Pulse Rate 69 Respiratory Rate 17 Blood Pressure 110/71 113/70 Pulse Oximetry 97 Oxygen Delivery Method Nasal Cannula Oxygen Flow Rate 2 01/15/25 04:30 Temperature Pulse Rate 68 Respiratory Rate Blood Pressure Pulse Oximetry 93 Oxygen Delivery Method Nasal Cannula Oxygen Flow Rate 2 Oxygen Delivery Method Nasal Cannula Oxygen Flow Rate 2 Const General: cooperative, comfortable and No acute distress Resp Effort & Inspection: normal respiratory effort Auscultation: clear to auscultation bilaterally Cardio Rate: regular rate Rhythm: regular rhythm Neuro Other: weak left arm with contraction of the left wrist, Full ROM in ext. Objective Labs 01/15/25 02:26 01/15/25 02:26 Labs: Laboratory Results - last 24 hr 01/15/25 01/15/25 01/15/25 02:26 02:43 04:15 WBC 11.1 H RBC 3.92 L Hgb 9.4 L Hct 28.2 L MCV 72.0 L MCH 24.0 L MCHC 33.3 RDW 19.1 H Plt Count 283 Neut % (Auto) 51.1 Lymph % (Auto) 29.6 [place] % (Auto) 14.5 H Eos % (Auto) 2.8 Baso % (Auto) 2.0 Neut # (Auto) 5700 Lymph # (Auto) 3300 [place] # (Auto) 1600 H Eos # (Auto) 300 Baso # (Auto) 200 H Percent Retic 7.0 H Sodium 139 Potassium 3.6 Chloride 107 Carbon Dioxide 22 BUN 7 L Creatinine 0.72 Estimated GFR > 60 BUN/Creatinine Ratio 9.7 Glucose 96 Calcium 8.7 Total Bilirubin 2.7 H AST 47 ALT 21 Alkaline Phosphatase 68 Total Creatine Kinase 142 Troponin I < 0.012 Total Protein 7.8 Albumin 4.6 Globulin 3.2 Albumin/Globulin Ratio 1.4 Lipase 51 Urine Color Yellow Urine Appearance Clear Urine pH 7.5 Ur Specific [place] 1.015 Urine Protein Negative Urine Glucose (UA) Negative Urine Ketones Negative Urine Occult Blood Negative Urine Nitrate Negative Urine Bilirubin Negative Urine Urobilinogen 0.2 Ur Leukocyte Esterase Negative Urine RBC None seen Urine WBC None seen Ur Squamous Epith Cells None seen Urine Bacteria None seen Ur Culture Indicated? Cult not indicated Vol Urine Centrifuged 10ml (spun) SARS-CoV-2 (PCR) Negative Influenza A (RT-PCR) Flu a negative Influenza B (RT-PCR) Flu b negative RSV (PCR) Negative Assessment & Plan Assessment & Plan narrative: I have discussed the pt's presenting symptoms, labs and imaging with the ER provider and agree with the decision for admission. I have personally reviewed the labs. 1. Sickle Cell Crisis with pain - the pt was given one liter of NS in the ER and will continue with IVFluids at 100cc/hr, IV dilaudid for pain controll, 2 lpm NC. His crisis seems controlled at this time. will need to monitor closely 2. Chronic anemia- hgb today is 9.4, there are some reticulocytes, continue to monitor CBC and hgb, 3. 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 consider PT/OT, I, Dr. Abebe Johnson in [place] has examined and interviewed the pt Lucretia Keller in [facility] with audio/ visual telemedicine technology with the pt's consent and with nursing assistance Time-Based Coding :: [TOTAL MINUTES] spent with patient and on the chart (including review of chart, obtaining history, exam, reviewing outside data, placing orders, documenting exam and treatment plan, and counseling patient) on [DATE].
[2025-01-15] MEDS: SODIUM CHLORIDE 0.45% 1,000 ML 100 ML IV ×3 (05:54→20:35)
[2025-01-15] MEDS: PANTOPRAZOLE DR 20 MG TABLET PO (06:37)
[2025-01-15] MEDS: OXYCODONE IR 5 MG TABLET PO ×2 (07:08→10:47)
--- NOTE | 2025-01-15 07:10 | P.HP_ITS ---
History of Present Illness History of Present Illness Date Patient Seen: 01/15/25 Chief complaint: Flare Ups, Back Pain Narrative: Chief complaint: Back pain and chest discomfort in sickle cell crisis typical and recurrent for this patient History of present illness: 24-year-old male with a history of sickle cell disease prior splenectomy and childhood stroke with left-sided hemiparesis left upper arm flexion contracture. Patient has been seen multiple times in the emergency room and discharged after IV fluids analgesics and oxygen. Was seen by the emergency department recently multiple times prior to this admission, however symptoms have not abated and patient was referred for observation admission Hemoglobin 9.4 which is good for this patient and bilirubin 2.7 which is lower than previously encountered for this patient. Past medical surgical family and social history please see the bottom of the note Review of systems: No fever chills no headache diplopia or blurred vision no paresthesia or paresis No cough No shortness of breath No nausea vomiting abdominal pain diarrhea constipation No urinary symptoms Physical exam: Young male calm left upper extremity is contracted HEENT scleral icterus less noticeable Neck no thyromegaly Heart rate and rhythm regular no murmurs Lungs clear from apices to bases Abdomen nontender bowel sounds present Extremities lessened edema at posterior triceps deltoid region on the right Patient alert and oriented Objective laboratory and imaging findings see bottom of the note: Assessment and plan: Sickle Cell Crisis with pain - the pt was given one liter of NS in the ER and will continue with IVFluids at 100cc/hr, IV dilaudid for pain controll, 2 lpm NC. His crisis seems controlled at this time. will need to monitor closely * Chronic anemia- hgb today is 9.4, there are some reticulocytes, continue to monitor CBC and hgb, * Chronic left sided weakness from remote stroke DVT prophylaxis * with enoxaparin Code status * Full code :: 55 minutes spent with patient and on the chart (including review of chart, obtaining history, exam, reviewing outside data, placing orders, documenting exam and treatment plan, and counseling patient). [facility] Medical History Vitamin D deficiency PTSD (post-traumatic stress disorder) Depression Anxiety Seizure Anemia Avascular necrosis of bone Contracture, left elbow Contracture, left hand CVA (cerebral vascular accident) Sickle cell anemia Surgical History History of shoulder surgery 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 Family History Father Cancer Sickle cell trait Lupus Mother Sickle cell trait Brother Sickle cell trait Social History household members: significant other Smoking Status: Current every day smoker alcohol intake: current Meds Home Medications and Allergies Home Medications ?Medication ?Instructions ?Recorded ?Confirmed ?Type ondansetron 4 mg disintegrating 4 mg PO Q8H PRN nausea and 10/02/24 01/15/25 Rx tablet vomiting #20 tabs cholecalciferol (vitamin D3) 10 20 mcg (2 x 10 mcg (40 0 unit)) PO 10/25/24 01/15/25 Rx mcg (400 unit) capsule DAILY #180 caps albuterol sulfate 90 mcg/actuation 2 puff inhalation Q 6H PRN wheezing 11/18/24 01/15/25 History aerosol inhaler doxycycline hyclate 100 mg tablet 100 mg PO BID #20 ta bs 11/24/24 01/15/25 Rx hydrocodone 10 mg-acetaminophen 1 tab PO Q4HR PRN Pain , Moderate 11/24/24 01/15/25 Rx 325 mg tablet (4-6) #20 tabs naloxone 4 mg/actuation nasal spray 1 spray intranasal PRN PRN Opioid 11/24/24 01/15/25 Rx Overdose #4 ea duloxetine 60 mg capsule,delayed 60 mg PO DAILY #90 ca ps 12/04/24 01/15/25 Rx release hydroxyurea (sickle cell) 400 mg 400 mg PO DAILY #90 c aps 12/04/24 01/15/25 Rx capsule hydrocodone 5 mg-acetaminophen [address] N pain #20 tabs 01/12/25 01/15/25 Rx mg tablet hydroxyurea (sickle cell) 400 mg 400 mg PO DAILY #90 c aps 01/12/25 01/15/25 Rx capsule Allergies Allergy/AdvReac Type Severity Reaction Status Date / Time No Known Drug Allergies Allergy Verified 12/04/24 11:35 Exam Vital Signs (past 8 hours): - 01/15/25 02:19 01/15/25 02:20 01/15/25 02:20 Temperature Pulse Rate 86 74 Respiratory Rate Blood Pressure 119/69 Pulse Oximetry 97 98 Oxygen Delivery Method Nasal Cannula Oxygen Flow Rate 2 01/15/25 02:21 01/15/25 02:30 01/15/25 02:30 Temperature 97.9 F Pulse Rate 79 75 Respiratory Rate 20 Blood Pressure 119/69 120/79 Pulse Oximetry 96 98 Oxygen Delivery Method Room Air Oxygen Flow Rate 01/15/25 03:00 01/15/25 03:00 01/15/25 03:30 Temperature Pulse Rate 65 67 Respiratory Rate 17 Blood Pressure 105/72 Pulse Oximetry 94 99 Oxygen Delivery Method Room Air Oxygen Flow Rate 01/15/25 03:30 01/15/25 04:00 01/15/25 04:00 Temperature Pulse Rate 71 Respiratory Rate Blood Pressure 109/69 112/71 Pulse Oximetry 99 Oxygen Delivery Method Nasal Cannula Oxygen Flow Rate 2 01/15/25 04:18 01/15/25 04:18 01/15/25 04:30 Temperature Pulse Rate 69 Respiratory Rate 17 Blood Pressure 110/71 113/70 Pulse Oximetry 97 Oxygen Delivery Method Nasal Cannula Oxygen Flow Rate 2 01/15/25 04:30 01/15/25 05:00 01/15/25 05:00 Temperature Pulse Rate 68 59 L Respiratory Rate 13 Blood Pressure 99/58 L Pulse Oximetry 93 97 Oxygen Delivery Method Nasal Cannula Oxygen Flow Rate 2 01/15/25 05:30 01/15/25 05:30 01/15/25 06:00 Temperature Pulse Rate 61 63 Respiratory Rate Blood Pressure 100/60 Pulse Oximetry 97 95 Oxygen Delivery Method Nasal Cannula Oxygen Flow Rate 3 01/15/25 06:00 01/15/25 06:30 01/15/25 06:30 Temperature Pulse Rate 60 Respiratory Rate 14 15 Blood Pressure 111/65 110/60 Pulse Oximetry 97 Oxygen Delivery Method Nasal Cannula Oxygen Flow Rate 3 Oxygen Delivery Method Nasal Cannula Oxygen Flow Rate 3 Objective Labs 01/15/25 02:26 01/15/25 02:26 Labs: Laboratory Results - last 24 hr 01/15/25 01/15/25 01/15/25 02:26 02:43 04:15 WBC 11.1 H RBC 3.92 L Hgb 9.4 L Hct 28.2 L MCV 72.0 L MCH 24.0 L MCHC 33.3 RDW 19.1 H Plt Count 283 Neut % (Auto) 51.1 Lymph % (Auto) 29.6 [place] % (Auto) 14.5 H Eos % (Auto) 2.8 Baso % (Auto) 2.0 Neut # (Auto) 5700 Lymph # (Auto) 3300 [place] # (Auto) 1600 H Eos # (Auto) 300 Baso # (Auto) 200 H Percent Retic 7.0 H Sodium 139 Potassium 3.6 Chloride 107 Carbon Dioxide 22 BUN 7 L Creatinine 0.72 Estimated GFR > 60 BUN/Creatinine Ratio 9.7 Glucose 96 Calcium 8.7 Total Bilirubin 2.7 H AST 47 ALT 21 Alkaline Phosphatase 68 Total Creatine Kinase 142 Troponin I < 0.012 Total Protein 7.8 Albumin 4.6 Globulin 3.2 Albumin/Globulin Ratio 1.4 Lipase 51 Urine Color Yellow Urine Appearance Clear Urine pH 7.5 Ur Specific [place] 1.015 Urine Protein Negative Urine Glucose (UA) Negative Urine Ketones Negative Urine Occult Blood Negative Urine Nitrate Negative Urine Bilirubin Negative Urine Urobilinogen 0.2 Ur Leukocyte Esterase Negative Urine RBC None seen Urine WBC None seen Ur Squamous Epith Cells None seen Urine Bacteria None seen Ur Culture Indicated? Cult not indicated Vol Urine Centrifuged 10ml (spun) SARS-CoV-2 (PCR) Negative Influenza A (RT-PCR) Flu a negative Influenza B (RT-PCR) Flu b negative RSV (PCR) Negative Assessment & Plan Time-Based Coding :: [TOTAL MINUTES] spent with patient and on the chart (including review of chart, obtaining history, exam, reviewing outside data, placing orders, documenting exam and treatment plan, and counseling patient) on [DATE].
[2025-01-15] MEDS: DULOXETINE 30 MG CAPSULE 60 MG PO (09:03)
--- NOTE | 2025-01-15 09:09 | PC.NURSE ---
Pt refused SCDs.
[2025-01-15] MEDS: OXYCODONE IR 10 MG TABLET PO ×3 (13:32→22:08)
[2025-01-16] MEDS: HYDROMORPHONE 0.5 MG INJ 1 MG IV ×2 (04:39→09:54)
[2025-01-16 05:06] LABS: Add Manual Diff / Slide Review NO; Basophils Absolute Auto 100 /uL (0-100); Basophils Percent Auto 0.6 % (0-2); Eosinophils Absolute Auto 100 /uL (0-450); Eosinophils Percent Auto 0.9 % (2-4); Hematocrit 27.9 % (41-53); Hemoglobin 9.5 g/dL (13.5-17.5); Lymphocytes Absolute Auto 1700 /uL (1100-4500); Lymphocytes Percent Auto 13.5 % (25-40); Mean Corpuscular HGB Conc 34.1 % (30-36); Mean Corpuscular Hemoglobin 24.5 PG (26-34); Mean Corpuscular Volume 71.9 fL (80-100); Monocytes Absolute Auto 1900 /uL (0-900); Monocytes Percent Auto 14.8 % (3-14); Neutrophils Absolute Auto 8900 /uL (1500-7000); Neutrophils Percent Auto 70.2 % (50-75); Platelet Count 213 X10^3/uL (150-400); Red Blood Cell Count 3.88 X10^6/uL (4.5-5.9); Red Cell Distribution Width 20.2 % (11.6-14.8); White Blood Cell Count 12.7 X10^3/uL (4.5-11.0)
[2025-01-16 05:17] LABS: Blood Urea Nitrogen 4 mg/dL (9-20); Calcium 8.3 mg/dL (8.4-10.2); Carbon Dioxide 21 mmol/L (22-32); Chloride 99 mmol/L (98-107); Estimated Glomerular Filt Rate > 60 mL/min (>60); Glucose 82 mg/dL (70-99); HEMOLYSIS < 15 (0-50); Potassium 3.7 mmol/L (3.4-5.1); Sodium 133 mmol/L (137-145)
[2025-01-16 05:31] LABS: Platelet Estimate Adequate on smear
[2025-01-16 05:32] LABS: Anisocytosis 3+; Macrocytosis 1+; Microcytosis 2+; Schistocytes 1+; Target Cells 2+
[2025-01-16] MEDS: SODIUM CHLORIDE 0.45% 1,000 ML 100 ML IV (06:42)
[2025-01-16] MEDS: PANTOPRAZOLE DR 20 MG TABLET PO (06:42)
[2025-01-16 07:00] VITALS: O2SAT 96
--- NOTE | 2025-01-16 07:44 | P.PN_ITS ---
Subjective Subjective Interval history: Chief complaint: Back pain and chest discomfort in sickle cell crisis typical and recurrent for this patient History of present illness: 24-year-old male with a history of sickle cell disease prior splenectomy and childhood stroke with left-sided hemiparesis left upper arm flexion contracture. Patient has been seen multiple times in the emergency room and discharged after IV fluids analgesics and oxygen. Was seen by the emergency department recently multiple times prior to this admission, however symptoms have not abated and patient was referred for observation admission Hemoglobin 9.4 which is good for this patient and bilirubin 2.7 which is lower than previously encountered for this patient. S: Exam Vital Signs (past 8 hours): Oxygen Delivery Method Room Air Oxygen Flow Rate 0 Narrative Exam Narrative: NAD, alert and oriented. Fluent speech. Lungs are clear, normal rate and effort. Heart is regular, no murmur gallop or rub. Abdomen is soft, non distended. Extremities are free of edema. Objective Labs 01/16/25 04:39 01/16/25 04:39 Labs: Laboratory Results - last 24 hr 01/16/25 04:39 WBC 12.7 H RBC 3.88 L Hgb 9.5 L Hct 27.9 L MCV 71.9 L MCH 24.5 L MCHC 34.1 RDW 20.2 H Plt Count 213 Neut % (Auto) 70.2 Lymph % (Auto) 13.5 L [place] % (Auto) 14.8 H Eos % (Auto) 0.9 L Baso % (Auto) 0.6 Neut # (Auto) 8900 H Lymph # (Auto) 1700 [place] # (Auto) 1900 H Eos # (Auto) 100 Baso # (Auto) 100 Platelet Estimate Adequate on smear RBC Morphology See below Anisocytosis 3+ H Microcytosis 2+ H Macrocytosis 1+ H Target Cells 2+ H Schistocytes 1+ H Sodium 133 L Potassium 3.7 Chloride 99 Carbon Dioxide 21 L BUN 4 L Creatinine 0.57 L Estimated GFR > 60 BUN/Creatinine Ratio 7.0 Glucose 82 Calcium 8.3 L PFSH Medical History Vitamin D deficiency PTSD (post-traumatic stress disorder) Depression Anxiety Seizure Anemia Avascular necrosis of bone Contracture, left elbow Contracture, left hand CVA (cerebral vascular accident) Sickle cell anemia Surgical History History of shoulder surgery 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 Family History Father Cancer Sickle cell trait Lupus Mother Sickle cell trait Brother Sickle cell trait Social History household members: significant other Smoking Status: Current every day smoker alcohol intake: current Assessment & Plan Assessment & Plan narrative: 1. Sickle Cell Crisis with pain - the pt was given one liter of NS in the ER and will continue with IVFluids at 100cc/hr, IV dilaudid for pain controll, 2 lpm NC. His crisis seems controlled at this time. will need to monitor closely * Chronic anemia- hgb today is 9.4, there are some reticulocytes, continue to monitor CBC and hgb, * Chronic left sided weakness from remote stroke. * * DVT prophylaxis * with enoxaparin Time-Based Coding :: [TOTAL MINUTES] spent with patient and on the chart (including review of chart, obtaining history, exam, reviewing outside data, placing orders, documenting exam and treatment plan, and counseling patient) on [DATE]. Quality VTE Deep Vein Thrombosis/Pulmonary Embolism Present on Admission: No
[2025-01-16 08:14] VITALS: BP 117/51; PULSE 61; RESP 16; TEMP 36.3; O2SAT 96
[2025-01-16] MEDS: OXYCODONE IR 10 MG TABLET PO (08:41)
[2025-01-16] MEDS: DULOXETINE 30 MG CAPSULE 60 MG PO (08:41)
--- NOTE | 2025-01-16 15:28 | P.DS_ITS ---
History of Present Illness History of Present Illness Chief complaint: Flare Ups, Back Pain Narrative: Chief complaint: Back pain and chest discomfort in sickle cell crisis typical and recurrent for this patient History of present illness: 24-year-old male with a history of sickle cell disease prior splenectomy and childhood stroke with left-sided hemiparesis left upper arm flexion contracture. Patient has been seen multiple times in the emergency room and discharged after IV fluids analgesics and oxygen. Was seen by the emergency department recently multiple times prior to this admission, however symptoms have not abated and patient was referred for observation admission Hemoglobin 9.4 which is good for this patient and bilirubin 2.7 which is lower than previously encountered for this patient. From H&P. Discharge Providers Provider Date of admission: 01/15/25 04:24 Discharge Date: 01/16/25 Primary care physician: OSMANY Wang- Consults: None. Discharge provider: Arslan Belcher MD Summary Hospital Course Discharge Diagnosis: Sickle Cell Crisis with pain - the pt was given one liter of NS in the ER and will continue with IVFluids at 100cc/hr, IV dilaudid for pain controll, 2 lpm NC. His crisis seems controlled at this time. will need to monitor closely * Chronic anemia- hgb today is 9.4, there are some reticulocytes, continue to monitor CBC and hgb. * Chronic left sided weakness from remote stroke. Hospital Course: He was admitted and treated for pain. The patient improved overnight was able to eat without difficulty and felt well enough to return home. He was given a small supply of oral pain medications and uses Zofran typically at home as well. I have worked with him many times in the past, he appeared clinically to be at his baseline and doing very well at the time of discharge. [N], the patient has documentation of a left ventricle ejection fracture less than or equal to 40%, or moderately or severely reduced left ventricle systolic function. [N], the patient has a history of heart transplant or left ventricular assist device (LVAD). [N], the patient was prescribed an DELILAH inhibitor at discharge or is already being taken. [N], the patient was prescribed Metoprolol succinate, bisoprolol, or carvedilol at discharge. Status at Discharge Cognitive/behavioral status at discharge: oriented Functional status at discharge: independent ambulation Overall status at discharge: patient is back to baseline Time Spent with Patient Time spent: Greater than 30 minutes Exam Vital Signs (past 8 hours): - 01/16/25 08:14 Temperature 97.3 F L Pulse Rate 61 Respiratory Rate 16 Blood Pressure 117/51 L Pulse Oximetry 96 Oxygen Flow Rate 0 Oxygen Delivery Method Room Air Oxygen Flow Rate 0 Narrative Exam Narrative: NAD, alert and oriented. Fluent speech. Lungs are clear, normal rate and effort. Heart is regular, no murmur gallop or rub. Abdomen is soft, non distended. Extremities are free of edema. Chronic arm contracture, left. Objective Labs 01/16/25 04:39 01/16/25 04:39 Labs: Laboratory Results - last 24 hr 01/16/25 04:39 WBC 12.7 H RBC 3.88 L Hgb 9.5 L Hct 27.9 L MCV 71.9 L MCH 24.5 L MCHC 34.1 RDW 20.2 H Plt Count 213 Neut % (Auto) 70.2 Lymph % (Auto) 13.[address] [facility] % (Auto) 14.8 H Eos % (Auto) 0.9 L Baso % (Auto) 0.6 Neut # (Auto) 8900 H Lymph # (Auto) 1700 [facility] # (Auto) 1900 H Eos # (Auto) 100 Baso # (Auto) 100 Platelet Estimate Adequate on smear RBC Morphology See below Anisocytosis 3+ H Microcytosis 2+ H Macrocytosis 1+ H Target Cells 2+ H Schistocytes 1+ H Sodium 133 L Potassium 3.7 Chloride 99 Carbon Dioxide 21 L BUN 4 L Creatinine 0.57 L Estimated GFR > 60 BUN/Creatinine Ratio 7.0 Glucose 82 Calcium 8.3 L [facility] Medical History Vitamin D deficiency PTSD (post-traumatic stress disorder) Depression Anxiety Seizure Anemia Avascular necrosis of bone Contracture, left elbow Contracture, left hand CVA (cerebral vascular accident) Sickle cell anemia Surgical History History of shoulder surgery 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 Family History Father Cancer Sickle cell trait Lupus Mother Sickle cell trait Brother Sickle cell trait Social History household members: significant other Smoking Status: Current every day smoker alcohol intake: current Discharge Assessment & Plan Assessment and Plan Assessment: 1. Sickle pain crisis, improved. Plan of Treatment: Discharge with Vicodin. Discharge Plan Discharge Plan Patient Disposition: Home Provider Discharge Comment: Clinically improved and stable for discharge home. Discharge orders & Medications Prescriptions: Continued cholecalciferol (vitamin D3) 10 mcg (400 unit) capsule 20 mcg PO DAILY Qty: 180 0RF Rx Instructions: Start two capsules daily after 6 weeks of 1250mcg weekly dosing. duloxetine 60 mg capsule,delayed release(DR/EC) 60 mg PO DAILY Qty: 90 2RF ondansetron 4 mg tablet,disintegrating 4 mg PO Q8H PRN (Reason: nausea and vomiting) Qty: 20 0RF albuterol sulfate 90 mcg/actuation HFA aerosol inhaler 2 puff inhalation Q6H PRN (Reason: wheezing) doxycycline hyclate 100 mg Tablet 100 mg PO BID Qty: 20 0RF naloxone 4 mg/actuation spray,non-aerosol 1 spray intranasal PRN PRN (Reason: Opioid Overdose) Qty: 4 0RF hydroxyurea (sickle cell) 400 mg capsule 400 mg PO DAILY Qty: 90 3RF hydrocodone-acetaminophen 5-325 mg tablet 1 tab PO BEDTIME PRN (Reason: pain) Qty: 15 0RF Discontinued hydroxyurea (sickle cell) 400 mg capsule 400 mg PO DAILY Qty: 90 3RF hydrocodone-acetaminophen 10-325 mg Tablet 1 tab PO Q4HR PRN (Reason: Pain, Moderate (4-6)) Qty: 20 0RF Medication counseling provided by Pharmacist: No Follow up/Referrals: Jen Albarran FNP-BC [Primary Care Provider, Family Practice] Diet/Activity/Treatments Diet: Diet as Tolerated Skin/Wound/Dressing Care Report to your healthcare provider any signs of infection, such as:: chills, fever and night sweats Visit Report/Discharge Packet Instructions: DI for Sickle Cell Anemia, Pain Crisis -- Adult Stand Alone Forms: Patient Portal/API Discharge Data Primary Care Provider: Jen Albarran Attending Provider: Abebe Johnson Admit Date/Time: 01/15/25 04:24 Quality VTE Deep Vein Thrombosis/Pulmonary Embolism Present on Admission: No
--- NOTE | 2025-01-16 15:56 | CM.DANOTE ---
Addendum entered by VISHNU Gregg 01/16/25 16:02: ADD: Notified patient's PCP office of discharge 01/16. Original Note: Initial DCP Assessment Note Pt is a 24 yo male, resident of [facility] sickle cell anemia, stroke with chronic left hemiparesis, arrives in sickle cell crisis, admitted OBS for IVF and IV pain meds. PCP: Jen Albarran Payer: Fabien [facility] Reviewed chart, pt discussed in multidisciplinary rounds this morning. ELLIOT 01/16-01/17 Patient lives independently with gf Caddence, works. No barriers identified at this time to patient's safe discharge home w/ close outpatient f/u recommended. Alert PCP's office upon patient's discharge. CM team will plan to follow clinical course closely in case any DC needs or concerns arise. VISHNU Kruse Discharge Planning/Care Management CM Discharge Assessment Start: 01/15/25 06:23 Freq: Status: Active Protocol: Document 01/16/25 15:47 POOJA (Rec: 01/16/25 15:55 POOJA [id number]) Discharge Planning Assessment Assigned Discharge VISHNU Jaime [employer] DPO[employer]/Assigned Caddence Snap (Girlfriend) Designee Name Contact Information [phone] Advance Directives? No Advance Directives No on File History Provided By Patient,Medical Record Has Patient been No admitted in last 30 days? Prior Living House Arrangements Household Members significant other Type of Relies on Others transporation used prior to admit Independent with ADL Yes 's Is patient alert and Yes oriented? Barriers to No Discharge Discharge Plan Home Transportation Sig Other to transport Arrangement Referrals Initiated None needed
--- NOTE | 2025-01-16 17:26 | PC.NURSE ---
Day shift: Discharge instructions gone over with patient. All questions answered, patient stated understanding. PIV removed. All belongings with patient. PCT Brandee escorted patient to exit where patient plans to walk home. He states he [place] the street from the hospital.
== END 2025-01-16 17:05 | disposition home or self-care (01) ==
LOC: ED 02:22 → AC 04:25
PROVIDERS: Admitting Provider Internal Medicine; Emergency Provider Emergency Medicine; PCP Nurse Practitioner Family; Visit Provider Internal Medicine
DX: D57.00 Hb-SS disease with crisis, unspecified (principal); M54.9 Dorsalgia, unspecified; G40.909 Epilepsy, unspecified, not intractable, without status epilepticus; I69.354 Hemiplegia and hemiparesis following cerebral infarction affecting left non-dominant side; Z90.81 Acquired absence of spleen; F17.210 Nicotine dependence, cigarettes, uncomplicated
CPT/HCPCS: 0241U; 36415; 71045; 80048; 80053; 81001; 82550; 83690; 84484; 85025; 85045; 93005; 96361; 96374; 96375; 96376; 99285; G0378; J1171; J2405; J7050

== ENCOUNTER 2025-01-19 22:49 | Emergency (ER) | payer OTHER, SELFPAY ==
[2025-01-15 11:49] VITALS: BMI 19.5
[2025-01-19 22:56] VITALS: BP 111/58; PULSE 104; RESP 18; TEMP 37.1; O2SAT 97; BMI 18.6
[2025-01-19 23:00] VITALS: BP 97/55; PULSE 92; O2SAT 95
[2025-01-19] MEDS: SODIUM CHLORIDE 0.9% 1,000 ML 1000 ML IV (23:15)
--- NOTE | 2025-01-19 23:15 | EKG_ITS ---
[address] [address] Test Date: 2025-01-19 Pat Name: Lucretia Keller Department: [facility] Room: Gender: Male Plane Tender: BARRY HUNTER : 2000 Requested By: Order Number: [id number] Reading MD: Evens Dumont Measurements Intervals [place] Rate: 97 P: 40 MO: 230 QRS: 33 QRSD: 88 T: 28 QT: 362 QTc: 459 Interpretive Statements Sinus rhythm with 1st degree AV block Electronically Signed On 01-24-2025 0:01:56 PDT by Evens Dumont
[2025-01-19 23:30] VITALS: BP 98/52; PULSE 88; O2SAT 96
[2025-01-19 23:39] LABS: Hematocrit 25.2 % (41-53); Hemoglobin 8.5 g/dL (13.5-17.5); Mean Corpuscular HGB Conc 33.6 % (30-36); Mean Corpuscular Hemoglobin 24.7 PG (26-34); Mean Corpuscular Volume 73.6 fL (80-100); Platelet Count 228 X10^3/uL (150-400); Red Blood Cell Count 3.42 X10^6/uL (4.5-5.9); Red Cell Distribution Width 21.3 % (11.6-14.8); White Blood Cell Count 14.4 X10^3/uL (4.5-11.0)
[2025-01-19 23:41] LABS: Add Manual Diff / Slide Review YES
[2025-01-19 23:46] LABS: Reticulocyte Count, Percent 8.4 % (0.9-2.6)
[2025-01-19] MEDS: HYDROMORPHONE 0.5 MG INJ IV (23:47)
[2025-01-19 23:50] LABS: Alanine Aminotransferase 22 IU/L (<50); Albumin 4.4 g/dL (3.5-5.0); Albumin Globulin Ratio 1.3 (1.0-2.8); Alkaline Phosphatase 65 U/L (38-126); Aspartate Aminotransferase 41 IU/L (17-59); BUN Creatinine Ratio 9.7 (6-22); Bilirubin Total 2.1 mg/dL (0.2-1.3); Blood Urea Nitrogen 6 mg/dL (9-20); Calcium 8.6 mg/dL (8.4-10.2); Carbon Dioxide 23 mmol/L (22-32); Chloride 104 mmol/L (98-107); Creatine Kinase 75 U/L (55-170); Estimated Glomerular Filt Rate > 60 mL/min (>60); Globulin 3.4 g/dL (1.7-4.1); Glucose 90 mg/dL (70-99); HEMOLYSIS 21 (0-50); Lipase 158 U/L (23-300); Potassium 3.3 mmol/L (3.4-5.1); Sodium 140 mmol/L (137-145); Total Protein 7.8 g/dL (6.3-8.2)
--- NOTE | 2025-01-19 23:55 | ED_ITS ---
HPI - Back Pain/Injury General Chief Complaint: Back Pain/Injury Stated Complaint: lower back + leg pain Time Seen by Provider: 01/19/25 22:57 Source: patient History of Present Illness HPI Narrative: 24-year-old male with sickle cell disease, frequent ED visits and occasional admissions for sickle cell crisis admissions, history of remote stroke and left hemiparesis, left upper extremity flexion contracture, prior splenectomy, had recent admission for sickle cell crisis with typical low back pain the last few days. Discharged after 24 hours he reports. Now has low back pain again. No fevers or chills. No recent cough. Denies chest pain shortness of breath. No new weakness symptoms. Related Data Home Medications ?Medication ?Instructions ?Recorded ?Confirmed albuterol sulfate 90 mcg/actuation 2 puff inhalation Q 6H PRN wheezing 11/18/24 01/15/25 aerosol inhaler Previous Rx's ?Medication ?Instructions ?Recorded ondansetron 4 mg disintegrating 4 mg PO Q8H PRN nausea and 10/02/24 tablet vomiting #20 tabs cholecalciferol (vitamin D3) 10 20 mcg (2 x 10 mcg (40 0 unit)) PO 10/25/24 mcg (400 unit) capsule DAILY #180 caps doxycycline hyclate 100 mg tablet 100 mg PO BID #20 ta bs 11/24/24 naloxone 4 mg/actuation nasal spray 1 spray intranasal PRN PRN Opioid 11/24/24 Overdose #4 ea duloxetine 60 mg capsule,delayed 60 mg PO DAILY #90 ca ps 12/04/24 release hydroxyurea (sickle cell) 400 mg 400 mg PO DAILY #90 c aps 01/12/25 capsule hydrocodone 5 mg-acetaminophen 325 1 tab PO BEDTIME AR N pain #15 tabs 01/16/25 mg tablet Allergies Allergy/AdvReac Type Severity Reaction Status Date / Time No Known Drug Allergies Allergy Verified 01/19/25 22:56 Patient History Medical History Vitamin D deficiency PTSD (post-traumatic stress disorder) Depression Anxiety Seizure Anemia Avascular necrosis of bone Contracture, left elbow Contracture, left hand CVA (cerebral vascular accident) Sickle cell anemia Surgical History History of shoulder surgery 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 Family History Father Cancer Sickle cell trait Lupus Mother Sickle cell trait Brother Sickle cell trait Social History household members: significant other Smoking Status: Never smoker alcohol intake: current Smoking Status: Never smoker tobacco type: cigarettes and vaping alcohol intake frequency: holidays/special occasions only Exam Narrative Exam Narrative: GENERAL: Well-developed patient, in mild distress. HEAD: Atraumatic. Normocephalic. EYES: Pupils equal round and reactive. Extraocular motions intact. No scleral icterus. No injection or drainage. ENT: Nose without bleeding, purulent drainage. Throat without erythema, tonsillar hypertrophy or exudate. Airway patent. NECK: Trachea midline. Non tender CARDIOVASCULAR: Regular rate and rhythm without murmurs, gallops, or rubs. RESPIRATORY: Clear to auscultation. Breath sounds equal bilaterally. No wheezes, rales, or rhonchi. GASTROINTESTINAL: Abdomen soft, non-tender, nondistended. EXTREMITIES: No edema or joint tenderness. BACK: Nontender without deformity or crepitance. No flank tenderness. NEURO: AOx3. Left-sided hemiparesis with left upper extremity flexion contracture at baseline per my previous evaluations on this patient. SKIN: No rash or erythema of visible areas Initial Vital Signs Initial Vital Signs: Vital Signs Temperature 98.7 F 01/19/25 22:56 Pulse Rate 104 H 01/19/25 22:56 Respiratory Rate 18 01/19/25 22:56 Blood Pressure 111/58 L 01/19/25 22:56 Pulse Oximetry 97 01/19/25 22:56 Oxygen Delivery Method Room Air 01/19/25 22:56 Course Orders Ordered: ED Orders 01/19/25 22:58 EKG-12 Lead Stat 01/19/25 23:28 Complete Blood Count AUTO DIFF Stat Comprehensive Metabolic Panel Stat Lipase Stat Reticulocyte Count, Percent Stat Troponin & CK Cardiac Panel Stat Discontinued Medications Hydromorphone HCl (Hydromorphone 0.5 Mg Inj) 0.5 mg IV NOW ONE Stop: 01/19/25 23:17 Last Admin: 01/19/25 23:47 Dose: 0.5 mg Documented By: TUNG Hydromorphone HCl (Hydromorphone 1 Mg Inj) 1 mg IV NOW ONE Stop: 01/20/25 00:12 Last Admin: 01/20/25 00:20 Dose: 1 mg Documented By: TUNG Sodium Chloride (Normal Saline 0.9%) 1,000 mls @ 1,000 mls/hr IV BOLUS ONE Stop: 01/19/25 23:56 Last Infusion: 01/20/25 00:25 Dose: Infused Documented By: Admin: 01/19/25 23:15 Dose: 1,000 mls/hr Documented By: TUNG Potassium Chloride (Potassium Chloride 20 Meq/15 Ml Udc) 40 meq PO NOW ONE Stop: 01/20/25 00:12 Last Admin: 01/20/25 00:20 Dose: 40 meq Documented By: TUNG Vital Signs Vital signs: Vital Signs - 8 hr 01/19/25 22:56 01/19/25 23:00 01/19/25 23:00 Temperature 98.7 F Pulse Rate 104 H 92 H Respiratory Rate 18 Blood Pressure 111/58 L 97/55 L Pulse Oximetry 97 95 Oxygen Delivery Method Room Air 01/19/25 23:30 01/19/25 23:30 01/20/25 00:00 Temperature Pulse Rate 88 80 Respiratory Rate Blood Pressure 98/52 L Pulse Oximetry 96 93 Oxygen Delivery Method 01/20/25 00:00 01/20/25 00:30 01/20/25 00:30 Temperature Pulse Rate 86 Respiratory Rate 18 Blood Pressure 106/56 L 106/57 L Pulse Oximetry 94 Oxygen Delivery Method 01/20/25 01:00 01/20/25 01:00 01/20/25 01:30 Temperature Pulse Rate 82 78 Respiratory Rate Blood Pressure 104/59 L Pulse Oximetry 94 95 Oxygen Delivery Method 01/20/25 01:30 01/20/25 02:00 01/20/25 02:00 Temperature Pulse Rate 75 Respiratory Rate 14 Blood Pressure 107/59 L 111/68 Pulse Oximetry 97 Oxygen Delivery Method Room Air MDM - Back Pain/Injury Lab Data Attestation: I reviewed the patient's lab results. Lab results narrative: White blood cell count 92103, hemoglobin 8.5, platelets urine 28,000. Glucose 90. Renal function normal. Potassium 3.3 low. Sodium 140 normal, serum CO2 23 normal. Total bilirubin 2.1 similar to previous evaluation results, other liver functions normal. Lipase not elevated. Troponin negative. 01/19/25 23:28 01/19/25 23:28 Labs: Lab Results 01/19/25 Range/Units 23:28 WBC 14.4 H (4.5-11.0) X10^3/uL RBC 3.42 L (4.5-5.9) X10^6/uL Hgb 8.5 L (13.5-17.5) g/dL Hct 25.2 L (41-53) % MCV 73.6 L (80-100) fL MCH 24.7 L (26-34) PG MCHC 33.6 (30-36) % RDW 21.3 H (11.6-14.8) % Plt Count 228 (150-400) X10^3/uL Neut % (Auto) Not Reportable Lymph % (Auto) Not Reportable Holt % (Auto) Not Reportable Eos % (Auto) Not Reportable Baso % (Auto) Not Reportable Lymph # (Auto) Not Reportable Holt # (Auto) Not Reportable Baso # (Auto) Not Reportable Total Counted 100 Seg Neutrophils % 24.0 L (38-70) % Band Neutrophils % 1.0 L (3-7) % Lymphocytes % (Manual) 58.0 H (25-45) % Monocytes % (Manual) 13.0 H (2-11) % Eosinophils % (Manual) 1.0 L (2-4) % Basophils % (Manual) 1.0 (0-1) % Metamyelocytes % 2.0 H (-0) % Neutrophils # (Manual) 3600 (9948-5416) /uL Nucleated RBCs 5 H ( - 0) #/Diff RBC Morphology See below Hypochromasia 2+ H Anisocytosis 2+ H Sickle Cells 2+ H Target Cells 2+ H Schistocytes 1+ H Percent Retic 8.4 H (0.9-2.6) % Sodium 140 (137-145) mmol/L Potassium 3.3 L (3.4-5.1) mmol/L Chloride 104 (98-107) mmol/L Carbon Dioxide 23 (22-32) mmol/L BUN 6 L (9-20) mg/dL Creatinine 0.62 L (0.66-1.25) mg/dL Estimated GFR > 60 (>60) mL/min BUN/Creatinine Ratio 9.7 (6-22) Glucose 90 (70-99) mg/dL Calcium 8.6 (8.4-10.2) mg/dL Total Bilirubin 2.1 H (0.2-1.3) mg/dL AST 41 (17-59) IU/L ALT 22 (<50) IU/L Alkaline Phosphatase 65 (38-126) U/L Total Creatine Kinase 75 (55-170) U/L Troponin I < 0.012 (0.01-0.034) ng/mL Total Protein 7.8 (6.3-8.2) g/dL Albumin 4.4 (3.5-5.0) g/dL Globulin 3.4 (1.7-4.1) g/dL Albumin/Globulin Ratio 1.3 (1.0-2.8) Lipase 158 D (23-300) U/L ECG Data Attestation: I personally reviewed and interpreted this ECG as follows: Interpretation: Sinus rhythm first-degree AV block, ventricular rate 97, AR 230. QRS 88, QTC 459. MDM Narrative Medical decision making narrative: 24-year-old male with sickle cell disease, frequent crises with typical low back pain, recent admission a few days ago, has typical low back pain sickle crisis symptoms now again through the day today. Afebrile, sirs screen negative. Left upper extremity old flexion contracture and muscle wasting left lower leg from remote old stroke, looks the same as on my previous and recent evaluations with the same patient. Labs sent. Oxygen applied, IV fluid bolus, IV Dilaudid. Laboratory data: White blood cell count 25452, hemoglobin 8.5, platelets adequate. Glucose 90. Renal function normal. Potassium 3.3 low. Sodium 140 normal, serum CO2 23 normal. Total bilirubin 2.1 similar to previous evaluation results, other liver functions normal. Lipase not elevated. Troponin negative. Reticulocyte 8.4%, slightly higher than most recent value, but has been 10% or higher in the past. Low potassium serum 3.3, oral potassium repletion given. Still having pain, repeat dose IV Dilaudid. Feels better, wants to go home. Discharged home. Discharge Plan Departure Patient Disposition: Home Clinical Impression: Sickle cell disease with crisis Instructions: DI for Sickle Cell Anemia, Pain Crisis -- Adult Activity Restrictions/Additional Instructions: History of sickle cell disease with low back pain crisis, typical symptoms tonight. IV fluids and IV Dilaudid given. Symptoms improved, labs similar to previous recent months results. You felt better and wanted to go home. Discharged home. 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 Prescriptions: No Action cholecalciferol (vitamin D3) 10 mcg (400 unit) capsule 20 mcg PO DAILY Qty: 180 0RF Rx Instructions: Start two capsules daily after 6 weeks of 1250mcg weekly dosing. duloxetine 60 mg capsule,delayed release(DR/EC) 60 mg PO DAILY Qty: 90 2RF ondansetron 4 mg tablet,disintegrating 4 mg PO Q8H PRN (Reason: nausea and vomiting) Qty: 20 0RF albuterol sulfate 90 mcg/actuation HFA aerosol inhaler 2 puff inhalation Q6H PRN (Reason: wheezing) doxycycline hyclate 100 mg Tablet 100 mg PO BID Qty: 20 0RF naloxone 4 mg/actuation spray,non-aerosol 1 spray intranasal PRN PRN (Reason: Opioid Overdose) Qty: 4 0RF hydroxyurea (sickle cell) 400 mg capsule 400 mg PO DAILY Qty: 90 3RF hydrocodone-acetaminophen 5-325 mg tablet 1 tab PO BEDTIME PRN (Reason: pain) Qty: 15 0RF Referrals: Jen Albarran, [facility] [Primary Care Provider, Family Practice] Stand Alone Forms: Patient Portal/API
[2025-01-19 23:57] LABS: Anisocytosis 2+; Hypochromasia 2+; Neutrophils Absolute Manual 3600 /uL (3000-5900); Nucleated Red Blood Cells 5 #/Diff; Sickle Cells 2+; Total Cells Counted 100
[2025-01-19 23:58] LABS: Schistocytes 1+; Target Cells 2+
[2025-01-20] VITALS: BP 106/56; PULSE 80; RESP 18; O2SAT 93
[2025-01-20 00:02] LABS: Troponin I < 0.012 ng/mL (0.01-0.034)
[2025-01-20] MEDS: POTASSIUM CHLORIDE 20 MEQ/15 ML UDC 40 MEQ PO (00:20)
[2025-01-20] MEDS: HYDROMORPHONE 1 MG INJ IV (00:20)
[2025-01-20 00:30] VITALS: BP 106/57; PULSE 86; O2SAT 94
[2025-01-20 01:00] VITALS: BP 104/59; PULSE 82; O2SAT 94
[2025-01-20 01:30] VITALS: BP 107/59; PULSE 78; O2SAT 95
[2025-01-20 02:00] VITALS: BP 111/68; PULSE 75; RESP 14; O2SAT 97
== END 2025-01-20 02:43 | disposition home or self-care (01) ==
PROVIDERS: Emergency Provider Emergency Medicine; PCP Nurse Practitioner Family
DX: D57.00 Hb-SS disease with crisis, unspecified (principal); M54.50 Low back pain, unspecified
CPT/HCPCS: 36415; 80053; 82550; 83690; 84484; 85007; 85025; 85045; 93005; 96361; 96374; 96376; 99284; J1171

== ENCOUNTER 2025-01-29 08:32 | Emergency (ER) | payer OTHER, SELFPAY ==
[2025-01-15 11:49] VITALS: BMI 19.5
[2025-01-29] VITALS (8 sets, daily range): BP systolic 110–128; BP diastolic 63–82; PULSE 67–80; RESP 15–19; TEMP 36.7; O2SAT 95–98; BMI 18.6
--- NOTE | 2025-01-29 09:10 | PC.NURSE ---
PT reports that he has 8/10 pain to low back. VSS. Medicated with PRN for pain.
[2025-01-29] MEDS: HYDROMORPHONE 1 MG INJ IV ×2 (09:12→10:09)
[2025-01-29] MEDS: LACTATED RINGERS 1,000 ML 1000 ML IV (09:13)
--- NOTE | 2025-01-29 09:40 | ED_ITS ---
HPI - Back Pain/Injury General Chief Complaint: Back Pain/Injury Stated Complaint: Lower back pain Time Seen by Provider: 01/29/25 08:39 Source: patient Related Data Home Medications ?Medication ?Instructions ?Recorded ?Confirmed albuterol sulfate 90 mcg/actuation 2 puff inhalation Q 6H PRN wheezing 11/18/24 01/15/25 aerosol inhaler Previous Rx's ?Medication ?Instructions ?Recorded ondansetron 4 mg disintegrating 4 mg PO Q8H PRN nausea and 10/02/24 tablet vomiting #20 tabs cholecalciferol (vitamin D3) 10 20 mcg (2 x 10 mcg (40 0 unit)) PO 10/25/24 mcg (400 unit) capsule DAILY #180 caps doxycycline hyclate 100 mg tablet 100 mg PO BID #20 ta bs 11/24/24 naloxone 4 mg/actuation nasal spray 1 spray intranasal PRN PRN Opioid 11/24/24 Overdose #4 ea duloxetine 60 mg capsule,delayed 60 mg PO DAILY #90 ca ps 12/04/24 release hydroxyurea (sickle cell) 400 mg 400 mg PO DAILY #90 c aps 01/12/25 capsule hydrocodone 5 mg-acetaminophen 325 1 tab PO BEDTIME [place] N pain #15 tabs 01/16/25 mg tablet Allergies Allergy/AdvReac Type Severity Reaction Status Date / Time No Known Drug Allergies Allergy Verified 01/19/25 22:56 Patient History Medical History Vitamin D deficiency PTSD (post-traumatic stress disorder) Depression Anxiety Seizure Anemia Avascular necrosis of bone Contracture, left elbow Contracture, left hand CVA (cerebral vascular accident) Sickle cell anemia Surgical History History of shoulder surgery 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 Family History Father Cancer Sickle cell trait Lupus Mother Sickle cell trait Brother Sickle cell trait Social History household members: significant other alcohol intake: current Smoking Status: Current some day smoker tobacco type: cigarettes and vaping alcohol intake frequency: holidays/special occasions only Exam Initial Vital Signs Initial Vital Signs: Vital Signs Temperature 98.1 F 01/29/25 08:48 Pulse Rate 80 01/29/25 08:48 Respiratory Rate 15 01/29/25 08:48 Blood Pressure 128/65 01/29/25 08:48 Pulse Oximetry 97 01/29/25 08:48 Oxygen Delivery Method Room Air 01/29/25 08:48 Course Orders Ordered: ED Orders 01/29/25 09:25 CBC Auto Diff [Complete Blood Count AUTO DIFF] Stat CMP [Comprehensive Metabolic Panel] Stat Lactated Ringer's (Lactated Ringers) 1,000 mls @ 1,000 mls/hr IV BOLUS ONE Stop: 01/29/25 09:48 Last Admin: 01/29/25 09:13 Dose: 1,000 mls/hr Documented By: Discontinued Medications Hydromorphone HCl (Hydromorphone 1 Mg Inj) 1 mg IV NOW ONE Stop: 01/29/25 09:01 Last Admin: 01/29/25 09:12 Dose: 1 mg Documented By: Vital Signs Vital signs: Vital Signs - 8 hr 01/29/25 08:48 Temperature 98.1 F Pulse Rate 80 Respiratory Rate 15 Blood Pressure 128/65 Pulse Oximetry 97 Oxygen Delivery Method Room Air MDM - Back Pain/Injury Lab Data 01/29/25 09:25 01/29/25 09:25 MDM Narrative Medical decision making narrative: All lab work, vital signs, nurse triage note, medication list, previous ER visits, and all imaging studies, previously reviewed. Retic count today is 8.2 WBC 9.5 hemoglobin stable at 9.7 platelets 346 BUN 10 creatinine 0.65 which is his baseline T bili 2.3. Patient given 2 doses of Dilaudid and fluids here and on reexamination feels much better. Differential diagnosis includes sickle cell crisis, acute chest syndrome, anemia. Return with new or worsening symptoms and to follow up on hematology referral per PCP request. Discharge Plan Departure Patient Disposition: Home Clinical Impression: Sickle cell disease with crisis Instructions: DI for Sickle Cell Anemia, Pain Crisis -- Adult Activity Restrictions/Additional Instructions: Return with new or worsening symptoms. Follow up with Hematology referral. Prescriptions: No Action cholecalciferol (vitamin D3) 10 mcg (400 unit) capsule 20 mcg PO DAILY Qty: 180 0RF Rx Instructions: Start two capsules daily after 6 weeks of 1250mcg weekly dosing. duloxetine 60 mg capsule,delayed release(DR/EC) 60 mg PO DAILY Qty: 90 2RF ondansetron 4 mg tablet,disintegrating 4 mg PO Q8H PRN (Reason: nausea and vomiting) Qty: 20 0RF albuterol sulfate 90 mcg/actuation HFA aerosol inhaler 2 puff inhalation Q6H PRN (Reason: wheezing) doxycycline hyclate 100 mg Tablet 100 mg PO BID Qty: 20 0RF naloxone 4 mg/actuation spray,non-aerosol 1 spray intranasal PRN PRN (Reason: Opioid Overdose) Qty: 4 0RF hydroxyurea (sickle cell) 400 mg capsule 400 mg PO DAILY Qty: 90 3RF hydrocodone-acetaminophen 5-325 mg tablet 1 tab PO BEDTIME PRN (Reason: pain) Qty: 15 0RF Referrals: Jen Albarran FNP-BC [Primary Care Provider, Family Practice] Stand Alone Forms: Patient Portal/API
[2025-01-29 09:48] LABS: Alanine Aminotransferase 21 IU/L (<50); Albumin 4.5 g/dL (3.5-5.0); Albumin Globulin Ratio 1.2 (1.0-2.8); Alkaline Phosphatase 73 U/L (38-126); Aspartate Aminotransferase 37 IU/L (17-59); BUN Creatinine Ratio 15.4 (6-22); Bilirubin Total 2.3 mg/dL (0.2-1.3); Blood Urea Nitrogen 10 mg/dL (9-20); Calcium 8.6 mg/dL (8.4-10.2); Carbon Dioxide 21 mmol/L (22-32); Chloride 107 mmol/L (98-107); Estimated Glomerular Filt Rate > 60 mL/min (>60); Globulin 3.7 g/dL (1.7-4.1); Glucose 89 mg/dL (70-99); HEMOLYSIS < 15 (0-50); Sodium 138 mmol/L (137-145); Total Protein 8.2 g/dL (6.3-8.2)
[2025-01-29 09:56] LABS: Hematocrit 29.1 % (41-53); Hemoglobin 9.7 g/dL (13.5-17.5); Mean Corpuscular HGB Conc 33.4 % (30-36); Mean Corpuscular Hemoglobin 24.9 PG (26-34); Mean Corpuscular Volume 74.7 fL (80-100); Platelet Count 346 X10^3/uL (150-400); Red Blood Cell Count 3.89 X10^6/uL (4.5-5.9); Red Cell Distribution Width 20.5 % (11.6-14.8); White Blood Cell Count 9.5 X10^3/uL (4.5-11.0)
[2025-01-29 09:57] LABS: Add Manual Diff / Slide Review YES
[2025-01-29 10:09] LABS: INR 1.4 (0.9-1.3); Prothrombin Time 15.3 SECONDS (9.4-12.5)
[2025-01-29 10:11] LABS: Neutrophils Absolute Manual 3610 /uL (3000-5900); Nucleated Red Blood Cells 1 #/Diff; Total Cells Counted 100
[2025-01-29 10:13] LABS: Anisocytosis 2+; Microcytosis 1+
[2025-01-29 10:15] LABS: Sickle Cells 1+; Target Cells 1+
[2025-01-29 10:16] LABS: Schistocytes 1+
[2025-01-29 10:17] LABS: Reticulocyte Count, Percent 8.2 % (0.9-2.6)
--- NOTE | 2025-01-29 11:30 | PC.NURSE ---
Pt states that he is ready to leave now. Reports that pain is 5/10 which is within comfort goal.
--- NOTE | 2025-02-05 19:26 | ED_ITS ---
HPI - Back Pain/Injury General Chief Complaint: Back Pain/Injury Stated Complaint: Lower back pain Time Seen by Provider: 01/29/25 08:39 Source: patient History of Present Illness HPI Narrative: 24y M hx of sickle cell disease presents with back and leg pain for the past 2-3 days. Nothing makes it better or worse. Denies fever, chils, numbness, tingling, bodyache, urinary symptoms, testicular pain, penile discharge, abdominal pain, trauma, heavy lifting or gait instability, chest pain, shortness of breath, dyspnea on exertion. Nothing makes it better or worse. Event Specialist referral still in process. Other than what is stated 14 pt ROS is negative. Related Data Home Medications ?Medication ?Instructions ?Recorded ?Confirmed albuterol sulfate 90 mcg/actuation 2 puff inhalation Q 6H PRN wheezing 11/18/24 01/15/25 aerosol inhaler Previous Rx's ?Medication ?Instructions ?Recorded ondansetron 4 mg disintegrating 4 mg PO Q8H PRN nausea and 10/02/24 tablet vomiting #20 tabs cholecalciferol (vitamin D3) 10 20 mcg (2 x 10 mcg (40 0 unit)) PO 10/25/24 mcg (400 unit) capsule DAILY #180 caps doxycycline hyclate 100 mg tablet 100 mg PO BID #20 ta bs 11/24/24 naloxone 4 mg/actuation nasal spray 1 spray intranasal PRN PRN Opioid 11/24/24 Overdose #4 ea duloxetine 60 mg capsule,delayed 60 mg PO DAILY #90 ca ps 12/04/24 release hydroxyurea (sickle cell) 400 mg 400 mg PO DAILY #90 c aps 01/12/25 capsule hydrocodone 5 mg-acetaminophen 325 1 tab PO BEDTIME VA N pain #15 tabs 01/16/25 mg tablet hydrocodone 5 mg-acetaminophen 325 1 tab PO Q4-6H PRN pain #20 tabs 02/02/25 mg tablet Allergies Allergy/AdvReac Type Severity Reaction Status Date / Time No Known Drug Allergies Allergy Verified 02/03/25 10:53 Review of Systems Review of Systems ROS Unobtainable: All systems reviewed & are unremarkable except as noted in HPI and below Patient History Medical History Vitamin D deficiency PTSD (post-traumatic stress disorder) Depression Anxiety Seizure Anemia Avascular necrosis of bone Contracture, left elbow Contracture, left hand CVA (cerebral vascular accident) Sickle cell anemia Surgical History History of shoulder surgery 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 Family History Father Cancer Sickle cell trait Lupus Mother Sickle cell trait Brother Sickle cell trait Social History household members: significant other Smoking Status: Unknown if ever smoked alcohol intake: current Smoking Status: Current some day smoker tobacco type: vaping alcohol intake frequency: holidays/special occasions only Exam Narrative Exam Narrative: GENERAL: [24] year old patient appears stated age. Well-developed patient, in mild distress. HEAD: Atraumatic. Normocephalic. EYES: Pupils equal round and reactive. Extraocular motions intact. No scleral icterus. No injection or drainage. ENT: Nose without bleeding, purulent drainage. Throat without erythema, tonsillar hypertrophy or exudate. Airway patent. NECK: Trachea midline. Non tender CARDIOVASCULAR: Regular rate and rhythm without murmurs, gallops, or rubs. RESPIRATORY: Clear to auscultation. Breath sounds equal bilaterally. No wheezes, rales, or rhonchi. GASTROINTESTINAL: Abdomen soft, non-tender, nondistended. EXTREMITIES: No edema or joint tenderness. Chronic Left hyper flexed wrist motor sensory intact to radial pulse BACK: Nontender without deformity or crepitance. No flank tenderness. NEURO: AOx3. SKIN: No rash or erythema of visible areas Initial Vital Signs Initial Vital Signs: Vital Signs Pulse Rate 79 01/29/25 08:43 Blood Pressure 128/65 01/29/25 08:43 Pulse Oximetry 98 01/29/25 08:43 Course Orders Ordered: Discontinued Medications Hydromorphone HCl (Hydromorphone 1 Mg Inj) 1 mg IV NOW ONE Stop: 01/29/25 09:01 Last Admin: 01/29/25 09:12 Dose: 1 mg Documented By: Hydromorphone HCl (Hydromorphone 1 Mg Inj) 1 mg IV NOW ONE Stop: 01/29/25 10:05 Last Admin: 01/29/25 10:09 Dose: 1 mg Documented By: Lactated Ringer's (Lactated Ringers) 1,000 mls @ 1,000 mls/hr IV BOLUS ONE Stop: 01/29/25 09:48 Last Infusion: 01/29/25 10:49 Dose: Infused Documented By: Admin: 01/29/25 09:13 Dose: 1,000 mls/hr Documented By: MDM - Back Pain/Injury Lab Data 01/29/25 09:25 01/29/25 09:25 Labs: Lab Results 01/29/25 Range/Units 09:25 WBC 9.5 (4.5-11.0) X10^3/uL RBC 3.89 L (4.5-5.9) X10^6/uL Hgb 9.7 L (13.5-17.5) g/dL Hct 29.1 L (41-53) % MCV 74.7 L (80-100) fL MCH 24.9 L (26-34) PG MCHC 33.4 (30-36) % RDW 20.5 H (11.6-14.8) % Plt Count 346 (150-400) X10^3/uL Neut % (Auto) Not Reportable Lymph % (Auto) Not Reportable [place] % (Auto) Not Reportable Eos % (Auto) Not Reportable Baso % (Auto) Not Reportable Lymph # (Auto) Not Reportable [place] # (Auto) Not Reportable Baso # (Auto) Not Reportable Total Counted 100 Seg Neutrophils % 38.0 (38-70) % Lymphocytes % (Manual) 39.0 (25-45) % Monocytes % (Manual) 20.0 H (2-11) % Eosinophils % (Manual) 2.0 (2-4) % Basophils % (Manual) 1.0 (0-1) % Neutrophils # (Manual) 3610 (4622-4991) /uL Nucleated RBCs 1 H ( - 0) #/Diff RBC Morphology See below Anisocytosis 2+ H Microcytosis 1+ H Sickle Cells 1+ H Target Cells 1+ H Schistocytes 1+ H Percent Retic 8.2 H (0.9-2.6) % PT 15.3 H (9.4-12.5) SECONDS INR 1.4 H (0.9-1.3) Sodium 138 (137-145) mmol/L Potassium 4.0 (3.4-5.1) mmol/L Chloride 107 (98-107) mmol/L Carbon Dioxide 21 L (22-32) mmol/L BUN 10 (9-20) mg/dL Creatinine 0.65 L (0.66-1.25) mg/dL Estimated GFR > 60 (>60) mL/min BUN/Creatinine Ratio 15.4 (6-22) Glucose 89 (70-99) mg/dL Calcium 8.6 (8.4-10.2) mg/dL Total Bilirubin 2.3 H (0.2-1.3) mg/dL AST 37 (17-59) IU/L ALT 21 (<50) IU/L Alkaline Phosphatase 73 (38-126) U/L Total Protein 8.2 (6.3-8.2) g/dL Albumin 4.5 (3.5-5.0) g/dL Globulin 3.7 (1.7-4.1) g/dL Albumin/Globulin Ratio 1.2 (1.0-2.8) MDM Narrative Medical decision making narrative: Vital signs, nurse triage note, medication list, previous ER visits, and all imaging studies reviewed. Patient given fluids pain medicine here and feels much better on reexamination. Differential diagnosis includes sickle cell crisis vs pain control. Follow up PCP regarding hematology referral and to return with new or worsening symptoms. Discharge Plan Departure Patient Disposition: Home Clinical Impression: Sickle cell disease with crisis Instructions: DI for Sickle Cell Anemia, Pain Crisis -- Adult Activity Restrictions/Additional Instructions: Return with new or worsening symptoms. Follow up with Hematology referral. Prescriptions: No Action cholecalciferol (vitamin D3) 10 mcg (400 unit) capsule 20 mcg PO DAILY Qty: 180 0RF Rx Instructions: Start two capsules daily after 6 weeks of 1250mcg weekly dosing. duloxetine 60 mg capsule,delayed release(DR/EC) 60 mg PO DAILY Qty: 90 2RF ondansetron 4 mg tablet,disintegrating 4 mg PO Q8H PRN (Reason: nausea and vomiting) Qty: 20 0RF albuterol sulfate 90 mcg/actuation HFA aerosol inhaler 2 puff inhalation Q6H PRN (Reason: wheezing) doxycycline hyclate 100 mg Tablet 100 mg PO BID Qty: 20 0RF naloxone 4 mg/actuation spray,non-aerosol 1 spray intranasal PRN PRN (Reason: Opioid Overdose) Qty: 4 0RF hydroxyurea (sickle cell) 400 mg capsule 400 mg PO DAILY Qty: 90 3RF hydrocodone-acetaminophen 5-325 mg tablet 1 tab PO BEDTIME PRN (Reason: pain) Qty: 15 0RF hydrocodone-acetaminophen 5-325 mg tablet 1 tab PO Q4-6H PRN (Reason: pain) Qty: 20 0RF Referrals: Jen Albarran, SOLDERING INSPECTOR-BC [Primary Care Provider, Family Practice] Stand Alone Forms: Patient Portal/API
== END 2025-01-29 11:43 | disposition home or self-care (01) ==
PROVIDERS: Emergency Provider Family Medicine; PCP Nurse Practitioner Family
DX: D57.00 Hb-SS disease with crisis, unspecified (principal)
CPT/HCPCS: 80053; 85007; 85025; 85045; 85610; 99283; J1171

== ENCOUNTER 2025-01-30 08:52 | Emergency (ER) | payer OTHER, SELFPAY ==
[2025-01-15 11:49] VITALS: BMI 19.5
[2025-01-30 09:11] VITALS: BP 116/57; PULSE 70; RESP 20; TEMP 36.1; O2SAT 100; BMI 18.6
[2025-01-30 10:30] VITALS: BP 117/57; PULSE 66; O2SAT 100
--- NOTE | 2025-01-30 11:02 | ED_ITS ---
HPI - Back Pain/Injury General Chief Complaint: Back Pain/Injury Stated Complaint: f/u yesterday backpain Time Seen by Provider: 01/30/25 10:32 History of Present Illness HPI Narrative: 24-year-old gentleman history of sickle cell disease well known to our ER for multiple visits for for sickle cell disease with crisis seen by me yesterday given fluids and Dilaudid here in the ER comes back today with continued pain in the legs specifically this time. Patient denies chest pain fever, chills, body aches, nausea, vomiting, diarrhea, and abdominal pain. He has yet to get established with a sales department supervisor at this time. Other than what is stated 14 point review of system is negative Related Data Home Medications ?Medication ?Instructions ?Recorded ?Confirmed albuterol sulfate 90 mcg/actuation 2 puff inhalation Q 6H PRN wheezing 11/18/24 01/15/25 aerosol inhaler Previous Rx's ?Medication ?Instructions ?Recorded ondansetron 4 mg disintegrating 4 mg PO Q8H PRN nausea and 10/02/24 tablet vomiting #20 tabs cholecalciferol (vitamin D3) 10 20 mcg (2 x 10 mcg (40 0 unit)) PO 10/25/24 mcg (400 unit) capsule DAILY #180 caps doxycycline hyclate 100 mg tablet 100 mg PO BID #20 ta bs 11/24/24 naloxone 4 mg/actuation nasal spray 1 spray intranasal PRN PRN Opioid 11/24/24 Overdose #4 ea duloxetine 60 mg capsule,delayed 60 mg PO DAILY #90 ca ps 12/04/24 release hydroxyurea (sickle cell) 400 mg 400 mg PO DAILY #90 c aps 01/12/25 capsule hydrocodone 5 mg-acetaminophen 325 1 tab PO BEDTIME MS N pain #15 tabs 01/16/25 mg tablet Allergies Allergy/AdvReac Type Severity Reaction Status Date / Time No Known Drug Allergies Allergy Verified 01/30/25 09:11 Review of Systems Review of Systems ROS Unobtainable: All systems reviewed & are unremarkable except as noted in HPI and below Patient History Medical History Vitamin D deficiency PTSD (post-traumatic stress disorder) Depression Anxiety Seizure Anemia Avascular necrosis of bone Contracture, left elbow Contracture, left hand CVA (cerebral vascular accident) Sickle cell anemia Surgical History History of shoulder surgery 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 Well-developed patient, in mild distress. HEAD: Atraumatic. Normocephalic. EYES: Pupils equal round and reactive. Extraocular motions intact. No scleral icterus. No injection or drainage. ENT: Nose without bleeding, purulent drainage. Throat without erythema, tonsillar hypertrophy or exudate. Airway patent. NECK: Trachea midline. Non tender CARDIOVASCULAR: Regular rate and rhythm without murmurs, gallops, or rubs. RESPIRATORY: Clear to auscultation. Breath sounds equal bilaterally. No wheezes, rales, or rhonchi. GASTROINTESTINAL: Abdomen soft, non-tender, nondistended. EXTREMITIES: No edema or joint tenderness. BACK: Nontender without deformity or crepitance. No flank tenderness. NEURO: AOx3. SKIN: No rash or erythema of visible areas Initial Vital Signs Initial Vital Signs: Vital Signs Temperature 97 F L 01/30/25 09:11 Pulse Rate 70 01/30/25 09:11 Respiratory Rate 20 01/30/25 09:11 Blood Pressure 116/57 L 01/30/25 09:11 Pulse Oximetry 100 01/30/25 09:11 Oxygen Delivery Method Room Air 01/30/25 09:11 Course Orders Ordered: ED Orders 01/30/25 11:06 CBC Auto Diff [Complete Blood Count AUTO DIFF] Stat CMP [Comprehensive Metabolic Panel] Stat Reticulocyte Count, Percent Stat Discontinued Medications Hydromorphone HCl (Hydromorphone 1 Mg Inj) 1 mg IV NOW ONE Stop: 01/30/25 11:02 Last Admin: 01/30/25 11:14 Dose: 1 mg Documented By: LILIAM Hydromorphone HCl (Hydromorphone 0.5 Mg Inj) 0.5 mg IV NOW ONE Stop: 01/30/25 12:39 Last Admin: 01/30/25 12:50 Dose: 0.5 mg Documented By: LILIAM Hydromorphone HCl (Hydromorphone 0.5 Mg Inj) 0.5 mg IV NOW ONE Stop: 01/30/25 14:50 Last Admin: 01/30/25 15:01 Dose: 0.5 mg Documented By: LILIAM Lactated Ringer's (Lactated Ringers) 500 mls @ 1,000 mls/hr IV BOLUS ONE Stop: 01/30/25 11:30 Last Infusion: 01/30/25 12:14 Dose: Infused Documented By: Admin: 01/30/25 11:13 Dose: 1,000 mls/hr Documented By: LILIAM Vital Signs Vital signs: Vital Signs - 8 hr 01/30/25 09:11 01/30/25 10:30 01/30/25 10:30 Temperature 97 F L Pulse Rate 70 66 Respiratory Rate 20 Blood Pressure 116/57 L 117/57 L Pulse Oximetry 100 100 Oxygen Delivery Method Room Air 01/30/25 11:17 01/30/25 11:17 01/30/25 11:18 Temperature Pulse Rate 60 Respiratory Rate Blood Pressure 101/62 117/67 Pulse Oximetry 100 Oxygen Delivery Method 01/30/25 11:18 01/30/25 11:30 01/30/25 11:30 Temperature Pulse Rate 64 63 Respiratory Rate Blood Pressure 103/59 L Pulse Oximetry 100 97 Oxygen Delivery Method MDM - Back Pain/Injury Lab Data 01/30/25 11:06 01/30/25 11:06 Labs: Lab Results 01/30/25 Range/Units 11:06 WBC 8.6 (4.5-11.0) X10^3/uL RBC 4.11 L (4.5-5.9) X10^6/uL Hgb 10.2 L (13.5-17.5) g/dL Hct 30.5 L (41-53) % MCV 74.2 L (80-100) fL MCH 24.8 L (26-34) PG MCHC 33.4 (30-36) % RDW 20.3 H (11.6-14.8) % Plt Count 406 H (150-400) X10^3/uL Neut % (Auto) Not Reportable Lymph % (Auto) Not Reportable [place] % (Auto) Not Reportable Eos % (Auto) Not Reportable Baso % (Auto) Not Reportable Lymph # (Auto) Not Reportable [place] # (Auto) Not Reportable Baso # (Auto) Not Reportable Total Counted 100 Seg Neutrophils % 49.0 (38-70) % Band Neutrophils % 1.0 L (3-7) % Lymphocytes % (Manual) 39.0 (25-45) % Monocytes % (Manual) 9.0 (2-11) % Eosinophils % (Manual) 1.0 L (2-4) % Basophils % (Manual) 1.0 (0-1) % Neutrophils # (Manual) 4300 (6789-4320) /uL Nucleated RBCs 2 H ( - 0) #/Diff Platelet Estimate Adequate on smear RBC Morphology See below Polychromasia 1+ H Poikilocytosis 2+ H Anisocytosis 2+ H Microcytosis 2+ H Target Cells 2+ H Schistocytes 1+ H Percent Retic 7.0 H (0.9-2.6) % Sodium 139 (137-145) mmol/L Potassium 3.9 (3.4-5.1) mmol/L Chloride 106 (98-107) mmol/L Carbon Dioxide 23 (22-32) mmol/L BUN 4 L (9-20) mg/dL Creatinine 0.66 (0.66-1.25) mg/dL Estimated GFR > 60 (>60) mL/min BUN/Creatinine Ratio 6.1 (6-22) Glucose 91 (70-99) mg/dL Calcium 8.7 (8.4-10.2) mg/dL Total Bilirubin 2.5 H (0.2-1.3) mg/dL AST 44 (17-59) IU/L ALT 20 (<50) IU/L Alkaline Phosphatase 79 (38-126) U/L Total Protein 8.2 (6.3-8.2) g/dL Albumin 4.6 (3.5-5.0) g/dL Globulin 3.6 (1.7-4.1) g/dL Albumin/Globulin Ratio 1.3 (1.0-2.8) MDM Narrative Medical decision making narrative: Vital signs, nurse triage note, medication list, previous ER visits, and all imaging all reviewed. Patient given fluids and multiple doses of Dilaudid here pain is now on to control and he feels much better on reexamination. Hemoglobin 10.2 platelet 402, retic count percentage 7.0 today from 8.2 yesterday. Chest x-ray showed no acute process. Differential diagnosis sickle cell disease, sickle cell crisis, acute chest syndrome. Return with new or worsening Discharge Plan Departure Patient Disposition: Home Clinical Impression: Sickle cell disease with crisis Instructions: DI for Sickle Cell Anemia, Pain Crisis -- Adult Activity Restrictions/Additional Instructions: Return with new or worsening symptoms. Please follow up with Hematology referral from PCP. Prescriptions: No Action cholecalciferol (vitamin D3) 10 mcg (400 unit) capsule 20 mcg PO DAILY Qty: 180 0RF Rx Instructions: Start two capsules daily after 6 weeks of 1250mcg weekly dosing. duloxetine 60 mg capsule,delayed release(DR/EC) 60 mg PO DAILY Qty: 90 2RF ondansetron 4 mg tablet,disintegrating 4 mg PO Q8H PRN (Reason: nausea and vomiting) Qty: 20 0RF albuterol sulfate 90 mcg/actuation HFA aerosol inhaler 2 puff inhalation Q6H PRN (Reason: wheezing) doxycycline hyclate 100 mg Tablet 100 mg PO BID Qty: 20 0RF naloxone 4 mg/actuation spray,non-aerosol 1 spray intranasal PRN PRN (Reason: Opioid Overdose) Qty: 4 0RF hydroxyurea (sickle cell) 400 mg capsule 400 mg PO DAILY Qty: 90 3RF hydrocodone-acetaminophen 5-325 mg tablet 1 tab PO BEDTIME PRN (Reason: pain) Qty: 15 0RF Referrals: Jen Albarran FNP-BC [Primary Care Provider, Family Practice] Stand Alone Forms: Patient Portal/API
[2025-01-30] MEDS: LACTATED RINGERS 500 ML 1000 ML IV (11:13)
[2025-01-30] MEDS: HYDROMORPHONE 1 MG INJ IV (11:14)
[2025-01-30 11:17] VITALS: BP 101/62; PULSE 60; O2SAT 100
[2025-01-30 11:18] VITALS: BP 117/67; PULSE 64; O2SAT 100
[2025-01-30 11:30] VITALS: BP 103/59; PULSE 63; O2SAT 97
[2025-01-30 11:33] LABS: Add Manual Diff / Slide Review YES; Hematocrit 30.5 % (41-53); Hemoglobin 10.2 g/dL (13.5-17.5); Mean Corpuscular HGB Conc 33.4 % (30-36); Mean Corpuscular Hemoglobin 24.8 PG (26-34); Mean Corpuscular Volume 74.2 fL (80-100); Platelet Count 406 X10^3/uL (150-400); Red Blood Cell Count 4.11 X10^6/uL (4.5-5.9); Red Cell Distribution Width 20.3 % (11.6-14.8); White Blood Cell Count 8.6 X10^3/uL (4.5-11.0)
[2025-01-30 11:45] LABS: Alanine Aminotransferase 20 IU/L (<50); Albumin 4.6 g/dL (3.5-5.0); Albumin Globulin Ratio 1.3 (1.0-2.8); Alkaline Phosphatase 79 U/L (38-126); Aspartate Aminotransferase 44 IU/L (17-59); BUN Creatinine Ratio 6.1 (6-22); Bilirubin Total 2.5 mg/dL (0.2-1.3); Blood Urea Nitrogen 4 mg/dL (9-20); Calcium 8.7 mg/dL (8.4-10.2); Carbon Dioxide 23 mmol/L (22-32); Chloride 106 mmol/L (98-107); Estimated Glomerular Filt Rate > 60 mL/min (>60); Globulin 3.6 g/dL (1.7-4.1); Glucose 91 mg/dL (70-99); HEMOLYSIS < 15 (0-50); Potassium 3.9 mmol/L (3.4-5.1); Sodium 139 mmol/L (137-145); Total Protein 8.2 g/dL (6.3-8.2)
[2025-01-30 11:49] LABS: Neutrophils Absolute Manual 4300 /uL (3000-5900); Nucleated Red Blood Cells 2 #/Diff; Total Cells Counted 100
[2025-01-30 11:50] LABS: Anisocytosis 2+; Microcytosis 2+; Platelet Estimate Adequate on smear; Poikilocytosis 2+; Target Cells 2+
[2025-01-30 11:51] LABS: Polychromasia 1+; Schistocytes 1+
[2025-01-30] MEDS: HYDROMORPHONE 0.5 MG INJ IV ×2 (12:50→15:01)
[2025-01-30 15:55] VITALS: BP 103/67; PULSE 61; RESP 19; O2SAT 100
== END 2025-01-30 15:57 | disposition home or self-care (01) ==
PROVIDERS: Emergency Provider Family Medicine; PCP Nurse Practitioner Family
DX: D57.00 Hb-SS disease with crisis, unspecified (principal)
CPT/HCPCS: 80053; 85007; 85025; 85045; 96361; 96374; 96376; 99283; 99284; J1171

== ENCOUNTER 2025-02-01 14:52 | Emergency (ER) | payer OTHER, SELFPAY ==
[2025-01-15 11:49] VITALS: BMI 19.5
[2025-02-01] VITALS (9 sets, daily range): BP systolic 111–124; BP diastolic 57–72; PULSE 64–87; RESP 18; TEMP 36.9; O2SAT 97–100; BMI 18.6
--- NOTE | 2025-02-01 15:09 | ED.BACK ---
HPI - Back Pain/Injury <Kwan Jimenes, DO - Last Filed: 02/01/25 15:16> General Chief Complaint: Back Pain/Injury Stated Complaint: Continued Back pain est. 10-14 days Time Seen by Provider: 02/01/25 15:05 Source: patient History of Present Illness HPI Narrative: 24-year-old gentleman history of sickle cell disease here on day 4 of for visit for sickle cell pain radiating across the back and into his lower legs today. He is yet to see a medical billing coder referral still pending at this time. Denies fever, chills, nausea, vomiting, abdominal pain, chest pain, shortness breath, difficulty walking, or urinary complaint. Other than what is stated 14 point review of system is negative. Related Data Home Medications ?Medication ?Instructions ?Recorded ?Confirmed albuterol sulfate 90 mcg/actuation 2 puff inhalation Q6H PRN wheezing 11/18/24 01/15/25 aerosol inhaler Previous Rx's ?Medication ?Instructions ?Recorded ondansetron 4 mg disintegrating 4 mg PO Q8H PRN nausea and 10/02/24 tablet vomiting #20 tabs cholecalciferol (vitamin D3) 10 20 mcg (2 x 10 mcg (400 unit)) PO 10/25/24 mcg (400 unit) capsule DAILY #180 caps doxycycline hyclate 100 mg tablet 100 mg PO BID #20 tabs 11/24/24 naloxone 4 mg/actuation nasal spray 1 spray intranasal PRN PRN Opioid 11/24/24 Overdose #4 ea duloxetine 60 mg capsule,delayed 60 mg PO DAILY #90 caps 12/04/24 release hydroxyurea (sickle cell) 400 mg 400 mg PO DAILY #90 caps 01/12/25 capsule hydrocodone 5 mg-acetaminophen 325 1 tab PO BEDTIME PRN pain #15 tabs 01/16/25 mg tablet Allergies Allergy/AdvReac Type Severity Reaction Status Date / Time No Known Drug Allergies Allergy Verified 02/01/25 14:59 Review of Systems <Kwan Jimenes, DO - Last Filed: 02/01/25 15:16> Review of Systems ROS Unobtainable: All systems reviewed & are unremarkable except as noted in HPI and below Patient History <Kwan Jimenes, DO - Last Filed: 02/01/25 15:16> Medical History Vitamin D deficiency PTSD (post-traumatic stress disorder) Depression Anxiety Seizure Anemia Avascular necrosis of bone Contracture, left elbow Contracture, left hand CVA (cerebral vascular accident) Sickle cell anemia Surgical History History of shoulder surgery 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 Well-developed patient, in mild distress. HEAD: Atraumatic. Normocephalic. EYES: Pupils equal round and reactive. Extraocular motions intact. No scleral icterus. No injection or drainage. ENT: Nose without bleeding, purulent drainage. Throat without erythema, tonsillar hypertrophy or exudate. Airway patent. NECK: Trachea midline. Non tender CARDIOVASCULAR: Regular rate and rhythm without murmurs, gallops, or rubs. RESPIRATORY: Clear to auscultation. Breath sounds equal bilaterally. No wheezes, rales, or rhonchi. GASTROINTESTINAL: Abdomen soft, non-tender, nondistended. EXTREMITIES: No edema or joint tenderness. Left upper wrist hyperflex chronically BACK: Nontender without deformity or crepitance. No flank tenderness. NEURO: AOx3. SKIN: No rash or erythema of visible areas Initial Vital Signs Initial Vital Signs: Vital Signs Temperature 98.4 F 02/01/25 14:55 Pulse Rate 78 02/01/25 14:55 Respiratory Rate 18 02/01/25 14:55 Blood Pressure 120/58 L 02/01/25 14:55 Pulse Oximetry 100 02/01/25 14:55 Oxygen Delivery Method Room Air 02/01/25 14:55 <Evens Stewart, DO - Last Filed: 02/01/25 18:56> Initial Vital Signs Initial Vital Signs: Vital Signs Temperature 98.4 F 02/01/25 14:55 Pulse Rate 78 02/01/25 14:55 Respiratory Rate 18 02/01/25 14:55 Blood Pressure 120/58 L 02/01/25 14:55 Pulse Oximetry 100 02/01/25 14:55 Oxygen Delivery Method Room Air 02/01/25 14:55 Course <Kwan Jimenes, DO - Last Filed: 02/01/25 15:16> Orders Ordered: ED Orders 02/01/25 15:08 CBC Auto Diff [Complete Blood Count AUTO DIFF] Stat CMP [Comprehensive Metabolic Panel] Stat Reticulocyte Count, Percent Stat Discontinued Medications Hydromorphone HCl (Hydromorphone 0.5 Mg Inj) 0.5 mg IV NOW ONE Stop: 02/01/25 15:09 Last Admin: 02/01/25 15:16 Dose: 0.5 mg Documented By: INO Hydromorphone HCl (Hydromorphone 0.5 Mg Inj) 0.5 mg IV NOW ONE Stop: 02/01/25 16:23 Last Admin: 02/01/25 16:27 Dose: 0.5 mg Documented By: AMY Hydromorphone HCl (Hydromorphone 0.5 Mg Inj) 0.5 mg IV NOW ONE Stop: 02/01/25 17:27 Last Admin: 02/01/25 17:38 Dose: 0.5 mg Documented By: INO Lactated Ringer's (Lactated Ringers) 1,000 mls @ 1,000 mls/hr IV BOLUS ONE Stop: 02/01/25 16:07 Last Infusion: 02/01/25 16:19 Dose: Infused Documented By: Admin: 02/01/25 15:16 Dose: 1,000 mls/hr Documented By: INO Vital Signs Vital signs: Vital Signs - 8 hr 02/01/25 14:55 02/01/25 15:19 02/01/25 15:30 Temperature 98.4 F Pulse Rate 78 87 75 Respiratory Rate 18 Blood Pressure 120/58 L Pulse Oximetry 100 98 97 Oxygen Delivery Method Room Air 02/01/25 15:30 02/01/25 16:00 02/01/25 16:00 Temperature Pulse Rate 69 Respiratory Rate Blood Pressure 114/58 L 122/71 Pulse Oximetry 98 Oxygen Delivery Method 02/01/25 16:30 02/01/25 16:30 02/01/25 17:00 Temperature Pulse Rate 79 65 Respiratory Rate Blood Pressure 111/58 L Pulse Oximetry 97 98 Oxygen Delivery Method 02/01/25 17:00 02/01/25 17:30 02/01/25 17:30 Temperature Pulse Rate 64 Respiratory Rate Blood Pressure 118/68 121/69 Pulse Oximetry 98 Oxygen Delivery Method <Evens Stewart, DO - Last Filed: 02/01/25 18:56> Orders Ordered: ED Orders 02/01/25 15:08 CBC Auto Diff [Complete Blood Count AUTO DIFF] Stat CMP [Comprehensive Metabolic Panel] Stat Reticulocyte Count, Percent Stat Discontinued Medications Hydromorphone HCl (Hydromorphone 0.5 Mg Inj) 0.5 mg IV NOW ONE Stop: 02/01/25 15:09 Last Admin: 02/01/25 15:16 Dose: 0.5 mg Documented By: INO Hydromorphone HCl (Hydromorphone 0.5 Mg Inj) 0.5 mg IV NOW ONE Stop: 02/01/25 16:23 Last Admin: 02/01/25 16:27 Dose: 0.5 mg Documented By: AMY Hydromorphone HCl (Hydromorphone 0.5 Mg Inj) 0.5 mg IV NOW ONE Stop: 02/01/25 17:27 Last Admin: 02/01/25 17:38 Dose: 0.5 mg Documented By: INO Lactated Ringer's (Lactated Ringers) 1,000 mls @ 1,000 mls/hr IV BOLUS ONE Stop: 02/01/25 16:07 Last Infusion: 02/01/25 16:19 Dose: Infused Documented By: Admin: 02/01/25 15:16 Dose: 1,000 mls/hr Documented By: INO Vital Signs Vital signs: Vital Signs - 8 hr 02/01/25 14:55 02/01/25 15:19 02/01/25 15:30 Temperature 98.4 F Pulse Rate 78 87 75 Respiratory Rate 18 Blood Pressure 120/58 L Pulse Oximetry 100 98 97 Oxygen Delivery Method Room Air 02/01/25 15:30 02/01/25 16:00 02/01/25 16:00 Temperature Pulse Rate 69 Respiratory Rate Blood Pressure 114/58 L 122/71 Pulse Oximetry 98 Oxygen Delivery Method 02/01/25 16:30 02/01/25 16:30 02/01/25 17:00 Temperature Pulse Rate 79 65 Respiratory Rate Blood Pressure 111/58 L Pulse Oximetry 97 98 Oxygen Delivery Method 02/01/25 17:00 02/01/25 17:30 02/01/25 17:30 Temperature Pulse Rate 64 Respiratory Rate Blood Pressure 118/68 121/69 Pulse Oximetry 98 Oxygen Delivery Method MDM - Back Pain/Injury <Kwan Jimenes, DO - Last Filed: 02/01/25 15:16> Lab Data 02/01/25 15:08 02/01/25 15:08 Labs: Lab Results 02/01/25 Range/Units 15:08 WBC 9.0 (4.5-11.0) X10^3/uL RBC 3.95 L (4.5-5.9) X10^6/uL Hgb 9.8 L (13.5-17.5) g/dL Hct 29.5 L (41-53) % MCV 74.6 L (80-100) fL MCH 24.8 L (26-34) PG MCHC 33.3 (30-36) % RDW 19.9 H (11.6-14.8) % Plt Count 429 H (150-400) X10^3/uL Neut % (Auto) Not Reportable Lymph % (Auto) Not Reportable [place] % (Auto) Not Reportable Eos % (Auto) Not Reportable Baso % (Auto) Not Reportable Lymph # (Auto) Not Reportable [place] # (Auto) Not Reportable Baso # (Auto) Not Reportable Total Counted 100 Seg Neutrophils % 41.0 (38-70) % Band Neutrophils % 1.0 L (3-7) % Lymphocytes % (Manual) 39.0 (25-45) % Monocytes % (Manual) 13.0 H (2-11) % Eosinophils % (Manual) 5.0 H (2-4) % Basophils % (Manual) 1.0 (0-1) % Neutrophils # (Manual) 3780 (5762-1514) /uL Nucleated RBCs 3 H ( - 0) #/Diff RBC Morphology See below Anisocytosis 4+ H D Sickle Cells 1+ H Schistocytes 1+ H Percent Retic 5.7 H (0.9-2.6) % Sodium 140 (137-145) mmol/L Potassium 3.8 (3.4-5.1) mmol/L Chloride 106 (98-107) mmol/L Carbon Dioxide 24 (22-32) mmol/L BUN 6 L (9-20) mg/dL Creatinine 0.73 (0.66-1.25) mg/dL Estimated GFR > 60 (>60) mL/min BUN/Creatinine Ratio 8.2 (6-22) Glucose 104 H (70-99) mg/dL Calcium 8.6 (8.4-10.2) mg/dL Total Bilirubin 2.1 H (0.2-1.3) mg/dL AST 35 (17-59) IU/L ALT 19 (<50) IU/L Alkaline Phosphatase 64 (38-126) U/L Total Protein 8.0 (6.3-8.2) g/dL Albumin 4.6 (3.5-5.0) g/dL Globulin 3.4 (1.7-4.1) g/dL Albumin/Globulin Ratio 1.4 (1.0-2.8) <Evens Stewart, DO - Last Filed: 02/01/25 18:56> Lab Data Labs: Lab Results 02/01/25 Range/Units 15:08 WBC 9.0 (4.5-11.0) X10^3/uL RBC 3.95 L (4.5-5.9) X10^6/uL Hgb 9.8 L (13.5-17.5) g/dL Hct 29.5 L (41-53) % MCV 74.6 L (80-100) fL MCH 24.8 L (26-34) PG MCHC 33.3 (30-36) % RDW 19.9 H (11.6-14.8) % Plt Count 429 H (150-400) X10^3/uL Neut % (Auto) Not Reportable Lymph % (Auto) Not Reportable [place] % (Auto) Not Reportable Eos % (Auto) Not Reportable Baso % (Auto) Not Reportable Lymph # (Auto) Not Reportable [place] # (Auto) Not Reportable Baso # (Auto) Not Reportable Total Counted 100 Seg Neutrophils % 41.0 (38-70) % Band Neutrophils % 1.0 L (3-7) % Lymphocytes % (Manual) 39.0 (25-45) % Monocytes % (Manual) 13.0 H (2-11) % Eosinophils % (Manual) 5.0 H (2-4) % Basophils % (Manual) 1.0 (0-1) % Neutrophils # (Manual) 3780 (4220-8096) /uL Nucleated RBCs 3 H ( - 0) #/Diff RBC Morphology See below Anisocytosis 4+ H D Sickle Cells 1+ H Schistocytes 1+ H Percent Retic 5.7 H (0.9-2.6) % Sodium 140 (137-145) mmol/L Potassium 3.8 (3.4-5.1) mmol/L Chloride 106 (98-107) mmol/L Carbon Dioxide 24 (22-32) mmol/L BUN 6 L (9-20) mg/dL Creatinine 0.73 (0.66-1.25) mg/dL Estimated GFR > 60 (>60) mL/min BUN/Creatinine Ratio 8.2 (6-22) Glucose 104 H (70-99) mg/dL Calcium 8.6 (8.4-10.2) mg/dL Total Bilirubin 2.1 H (0.2-1.3) mg/dL AST 35 (17-59) IU/L ALT 19 (<50) IU/L Alkaline Phosphatase 64 (38-126) U/L Total Protein 8.0 (6.3-8.2) g/dL Albumin 4.6 (3.5-5.0) g/dL Globulin 3.4 (1.7-4.1) g/dL Albumin/Globulin Ratio 1.4 (1.0-2.8) MDM Narrative Medical decision making narrative: 1814: Patient was signed out to me by Dr. Jimenes, patient is a known sickle cell patient here in the emergency department, presenting for his, and sickle cell pain to his back and leg, lab work unremarkable, had 3 rounds of medications stating that he feels better, no further workup required at this time, patient was given strict return precautions he verbalized understanding of this and agrees to being discharged home with outpatient follow up Discharge Plan Departure Patient Disposition: Home Clinical Impression: Sickle-cell disease with pain Activity Restrictions/Additional Instructions: Please follow up with your primary care doctor and franchise sales representative Please read the discharge instructions sheet carefully and bring all papers to all doctor follow-up visits, as it may contain information that your doctor may want to see. Disease processes change and evolve, if your symptoms worsen or if you develop any new symptoms that are concerning to you please return for evaluation. Your evaluation today does not show any evidence of any life-threatening/serious illnesses requiring admission to the hospital or surgery. Please follow-up with your doctor for re-evaluation in approximately 1 day. Seek immediate medical attention for any worrisome symptoms. *If you do not have a primary care provider please contact the [facility] Resource line at [phone]. They will ask some questions about your medical history and help get you set up with a doctor in the community. Prescriptions: No Action cholecalciferol (vitamin D3) 10 mcg (400 unit) capsule 20 mcg PO DAILY Qty: 180 0RF Rx Instructions: Start two capsules daily after 6 weeks of 1250mcg weekly dosing. duloxetine 60 mg capsule,delayed release(DR/EC) 60 mg PO DAILY Qty: 90 2RF ondansetron 4 mg tablet,disintegrating 4 mg PO Q8H PRN (Reason: nausea and vomiting) Qty: 20 0RF albuterol sulfate 90 mcg/actuation HFA aerosol inhaler 2 puff inhalation Q6H PRN (Reason: wheezing) doxycycline hyclate 100 mg Tablet 100 mg PO BID Qty: 20 0RF naloxone 4 mg/actuation spray,non-aerosol 1 spray intranasal PRN PRN (Reason: Opioid Overdose) Qty: 4 0RF hydroxyurea (sickle cell) 400 mg capsule 400 mg PO DAILY Qty: 90 3RF hydrocodone-acetaminophen 5-325 mg tablet 1 tab PO BEDTIME PRN (Reason: pain) Qty: 15 0RF Referrals: Jen Albarran FNP-BC [Primary Care Provider, Family Practice] Stand Alone Forms: Patient Portal/API
[2025-02-01] MEDS: HYDROMORPHONE 0.5 MG INJ IV ×3 (15:16→17:38)
[2025-02-01] MEDS: LACTATED RINGERS 1,000 ML 1000 ML IV (15:16)
[2025-02-01 15:29] LABS: Alanine Aminotransferase 19 IU/L (<50); Albumin 4.6 g/dL (3.5-5.0); Albumin Globulin Ratio 1.4 (1.0-2.8); Alkaline Phosphatase 64 U/L (38-126); Aspartate Aminotransferase 35 IU/L (17-59); BUN Creatinine Ratio 8.2 (6-22); Bilirubin Total 2.1 mg/dL (0.2-1.3); Blood Urea Nitrogen 6 mg/dL (9-20); Calcium 8.6 mg/dL (8.4-10.2); Carbon Dioxide 24 mmol/L (22-32); Chloride 106 mmol/L (98-107); Estimated Glomerular Filt Rate > 60 mL/min (>60); Globulin 3.4 g/dL (1.7-4.1); Glucose 104 mg/dL (70-99); HEMOLYSIS < 15 (0-50); Hematocrit 29.5 % (41-53); Hemoglobin 9.8 g/dL (13.5-17.5); Mean Corpuscular HGB Conc 33.3 % (30-36); Mean Corpuscular Hemoglobin 24.8 PG (26-34); Mean Corpuscular Volume 74.6 fL (80-100); Platelet Count 429 X10^3/uL (150-400); Potassium 3.8 mmol/L (3.4-5.1); Red Blood Cell Count 3.95 X10^6/uL (4.5-5.9); Red Cell Distribution Width 19.9 % (11.6-14.8); Sodium 140 mmol/L (137-145)
[2025-02-01 15:31] LABS: Add Manual Diff / Slide Review YES
[2025-02-01 15:33] LABS: Reticulocyte Count, Percent 5.7 % (0.9-2.6)
[2025-02-01 15:47] LABS: Anisocytosis 4+; Neutrophils Absolute Manual 3780 /uL (3000-5900); Nucleated Red Blood Cells 3 #/Diff; Schistocytes 1+; Sickle Cells 1+; Total Cells Counted 100
== END 2025-02-01 19:02 | disposition home or self-care (01) ==
PROVIDERS: Family Medicine; Emergency Provider Student in an Organized Health Care Education/Training Program; PCP Nurse Practitioner Family
DX: D57.00 Hb-SS disease with crisis, unspecified (principal)
CPT/HCPCS: 80053; 85007; 85025; 85045; 96361; 96374; 96376; 99283; 99284; J1171

== ENCOUNTER 2025-02-02 05:07 | Emergency (ER) | payer OTHER, SELFPAY ==
[2025-01-15 11:49] VITALS: BMI 19.5
[2025-02-02] VITALS (12 sets, daily range): BP systolic 99–112; BP diastolic 55–64; PULSE 58–78; RESP 18; TEMP 37.1; O2SAT 93–99; BMI 18.6
--- NOTE | 2025-02-02 05:21 | ED.HA ---
HPI - Headache <Evens Stewart DO - Last Filed: 02/02/25 05:37> General Chief Complaint: Back Pain/Injury Stated Complaint: Sickle Cell Crisis, Nausea, headache Time Seen by Provider: 02/02/25 05:17 History of Present Illness HPI Narrative: Patient is a 24-year-old male with known to this ED for sickle cell disease. Patient presenting for his typical sickle cell pain, describes it as low back is well as to his right leg, denies any other symptoms such as chest pain shortness of breath fever chills abdominal pain or any other GI/ symptoms time. Patient is complaining of mild headache as well as nausea but denies any trauma falls, denies any visual disturbances, patient is at his baseline. Related Data Home Medications ?Medication ?Instructions ?Recorded ?Confirmed albuterol sulfate 90 mcg/actuation 2 puff inhalation Q6H PRN wheezing 11/18/24 01/15/25 aerosol inhaler Previous Rx's ?Medication ?Instructions ?Recorded ondansetron 4 mg disintegrating 4 mg PO Q8H PRN nausea and 10/02/24 tablet vomiting #20 tabs cholecalciferol (vitamin D3) 10 20 mcg (2 x 10 mcg (400 unit)) PO 10/25/24 mcg (400 unit) capsule DAILY #180 caps doxycycline hyclate 100 mg tablet 100 mg PO BID #20 tabs 11/24/24 naloxone 4 mg/actuation nasal spray 1 spray intranasal PRN PRN Opioid 11/24/24 Overdose #4 ea duloxetine 60 mg capsule,delayed 60 mg PO DAILY #90 caps 12/04/24 release hydroxyurea (sickle cell) 400 mg 400 mg PO DAILY #90 caps 01/12/25 capsule hydrocodone 5 mg-acetaminophen 325 1 tab PO BEDTIME PRN pain #15 tabs 01/16/25 mg tablet hydrocodone 5 mg-acetaminophen 325 1 tab PO Q4-6H PRN pain #20 tabs 02/02/25 mg tablet Allergies Allergy/AdvReac Type Severity Reaction Status Date / Time No Known Drug Allergies Allergy Verified 02/02/25 05:22 Review of Systems <Evens Stewart DO - Last Filed: 02/02/25 05:37> Review of Systems Narrative: General: Denies fever, chills, weight loss HEENT: Denies headache, eye drainage, eye irritation, head trauma, sore throat, voice change Cardiovascular: Denies any chest pain, palpitations, tachycardia Respiratory: Denies any shortness of breath, cough, wheeze, stridor GI/: Denies any abdominal pain, nausea, vomiting, diarrhea, bright red blood per rectum, melanotic stools, urinary frequency, urinary retention, dysuria, hematuria MSK: Positive low back pain and leg pain Skin: Denies any rashes, lesions, discoloration Neuro: Denies any headache, lightheadedness, dizziness, fainting, weakness Psych: Denies SI/HI Patient History <Evens Terry, DO - Last Filed: 02/02/25 05:37> Medical History Vitamin D deficiency PTSD (post-traumatic stress disorder) Depression Anxiety Seizure Anemia Avascular necrosis of bone Contracture, left elbow Contracture, left hand CVA (cerebral vascular accident) Sickle cell anemia Surgical History History of shoulder surgery 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 Family History Father Cancer Sickle cell trait Lupus Mother Sickle cell trait Brother Sickle cell trait Social History household members: significant other alcohol intake: current tobacco type: vaping alcohol intake frequency: holidays/special occasions only Exam <Evens Bedollagretchen, DO - Last Filed: 02/02/25 05:37> Narrative Exam Narrative: Exam Narrative: General: Cooperative, comfortable, well-developed, not in acute distress HEENT: Normocephalic, atraumatic, PERRLA, normal sclera, eyelids normal, Neck: Active full range of motion, atraumatic Chest: Normal to inspection, negative crepitus, no overlying erythema ecchymosis Respiratory: Normal respiratory effort, not in acute respiratory distress, clear to auscultation bilaterally negative cough, wheeze, tachypnea, rhonchi, rales Cardiology: Regular rate rhythm negative gallop, murmur, rubs GI/: Normal to inspection, soft, nonrigid, no tenderness to palpation, exam deferred MSK: patient with baseline left upper extremity deficits from history of vaso-occlusive crisis in the past, bilateral lower extremities neurovascularly intact able to stand bear weight ambulate unassisted here in the emergency department Skin: No rashes lesions noted Neuro: Alert awake oriented x3, m, cranial nerves intact, able to answer all questions appropriately follows commands appropriately Psych: Cooperative, negative suicidal or homicidal ideations Initial Vital Signs Initial Vital Signs: Vital Signs Blood Pressure 112/64 02/02/25 05:14 <Kwan Jimenes, DO - Last Filed: 02/02/25 09:38> Initial Vital Signs Initial Vital Signs: Vital Signs Blood Pressure 112/64 02/02/25 05:14 Course <Evens Stewart, DO - Last Filed: 02/02/25 05:37> Orders Ordered: ED Orders 02/02/25 05:38 CBC Auto Diff [Complete Blood Count AUTO DIFF] Stat CMP [Comprehensive Metabolic Panel] Stat RETIC [Reticulocyte Count, Percent] Stat Discontinued Medications Hydromorphone HCl (Hydromorphone 1 Mg Inj) 1 mg IV Q1HR JONATHAN Stop: 02/02/25 08:01 Last Admin: 02/02/25 08:19 Dose: 1 mg Documented By: Admin: 02/02/25 07:06 Dose: 1 mg Documented By: Admin: 02/02/25 05:44 Dose: 1 mg Documented By: TUNG Lactated Ringer's (Lactated Ringers) 500 mls @ 1,000 mls/hr IV BOLUS ONE Stop: 02/02/25 08:55 Last Admin: 02/02/25 08:39 Dose: Not Given Documented By: ROMA Lactated Ringer's (Lactated Ringers) 1,000 mls @ 1,000 mls/hr IV BOLUS ONE Stop: 02/02/25 09:25 Last Infusion: 02/02/25 09:27 Dose: Infused Documented By: Admin: 02/02/25 08:37 Dose: 1,000 mls/hr Documented By: ROMA Ondansetron HCl (Ondansetron 4 Mg/2 Ml Inj) 4 mg IV NOW ONE Stop: 02/02/25 05:23 Last Admin: 02/02/25 05:44 Dose: 4 mg Documented By: TUNG Vital Signs Vital signs: Vital Signs - 8 hr 02/02/25 05:14 02/02/25 05:15 02/02/25 05:22 Temperature 98.7 F Pulse Rate 78 74 Respiratory Rate 18 Blood Pressure 112/64 112/64 Pulse Oximetry 98 99 Oxygen Delivery Method Room Air 02/02/25 05:30 02/02/25 05:30 02/02/25 06:00 Temperature Pulse Rate 77 Respiratory Rate Blood Pressure 99/58 L 106/62 Pulse Oximetry 97 Oxygen Delivery Method 02/02/25 06:00 02/02/25 06:30 02/02/25 06:30 Temperature Pulse Rate 69 66 Respiratory Rate Blood Pressure 103/64 Pulse Oximetry 95 96 Oxygen Delivery Method 02/02/25 07:00 02/02/25 07:00 02/02/25 07:30 Temperature Pulse Rate 66 65 Respiratory Rate Blood Pressure 100/56 L Pulse Oximetry 97 96 Oxygen Delivery Method 02/02/25 07:30 02/02/25 08:00 02/02/25 08:00 Temperature Pulse Rate 66 Respiratory Rate Blood Pressure 103/56 L 103/60 Pulse Oximetry 95 Oxygen Delivery Method 02/02/25 08:30 02/02/25 08:30 Temperature Pulse Rate 67 Respiratory Rate Blood Pressure 105/60 Pulse Oximetry 94 Oxygen Delivery Method <Kwan Jimenes, DO - Last Filed: 02/02/25 09:38> Orders Ordered: ED Orders 02/02/25 05:38 CBC Auto Diff [Complete Blood Count AUTO DIFF] Stat CMP [Comprehensive Metabolic Panel] Stat RETIC [Reticulocyte Count, Percent] Stat Discontinued Medications Hydromorphone HCl (Hydromorphone 1 Mg Inj) 1 mg IV Q1HR JONATHAN Stop: 02/02/25 08:01 Last Admin: 02/02/25 08:19 Dose: 1 mg Documented By: Admin: 02/02/25 07:06 Dose: 1 mg Documented By: Admin: 02/02/25 05:44 Dose: 1 mg Documented By: TUNG Lactated Ringer's (Lactated Ringers) 500 mls @ 1,000 mls/hr IV BOLUS ONE Stop: 02/02/25 08:55 Last Admin: 02/02/25 08:39 Dose: Not Given Documented By: ROMA Lactated Ringer's (Lactated Ringers) 1,000 mls @ 1,000 mls/hr IV BOLUS ONE Stop: 02/02/25 09:25 Last Infusion: 02/02/25 09:27 Dose: Infused Documented By: Admin: 02/02/25 08:37 Dose: 1,000 mls/hr Documented By: ROMA Ondansetron HCl (Ondansetron 4 Mg/2 Ml Inj) 4 mg IV NOW ONE Stop: 02/02/25 05:23 Last Admin: 02/02/25 05:44 Dose: 4 mg Documented By: TUNG Vital Signs Vital signs: Vital Signs - 8 hr 02/02/25 05:14 02/02/25 05:15 02/02/25 05:22 Temperature 98.7 F Pulse Rate 78 74 Respiratory Rate 18 Blood Pressure 112/64 112/64 Pulse Oximetry 98 99 Oxygen Delivery Method Room Air 02/02/25 05:30 02/02/25 05:30 02/02/25 06:00 Temperature Pulse Rate 77 Respiratory Rate Blood Pressure 99/58 L 106/62 Pulse Oximetry 97 Oxygen Delivery Method 02/02/25 06:00 02/02/25 06:30 02/02/25 06:30 Temperature Pulse Rate 69 66 Respiratory Rate Blood Pressure 103/64 Pulse Oximetry 95 96 Oxygen Delivery Method 02/02/25 07:00 02/02/25 07:00 02/02/25 07:30 Temperature Pulse Rate 66 65 Respiratory Rate Blood Pressure 100/56 L Pulse Oximetry 97 96 Oxygen Delivery Method 02/02/25 07:30 02/02/25 08:00 02/02/25 08:00 Temperature Pulse Rate 66 Respiratory Rate Blood Pressure 103/56 L 103/60 Pulse Oximetry 95 Oxygen Delivery Method 02/02/25 08:30 02/02/25 08:30 Temperature Pulse Rate 67 Respiratory Rate Blood Pressure 105/60 Pulse Oximetry 94 Oxygen Delivery Method MDM - Headache <Evens Stewart DO - Last Filed: 02/02/25 05:37> Differential Diagnosis Differential diagnosis: Likely headache and other (Sickle cell pain crisis) Lab Data 02/02/25 05:38 02/02/25 05:38 Labs: Lab Results 02/02/25 Range/Units 05:38 WBC 11.9 H (4.5-11.0) X10^3/uL RBC 3.89 L (4.5-5.9) X10^6/uL Hgb 9.5 L (13.5-17.5) g/dL Hct 28.7 L (41-53) % MCV 73.8 L (80-100) fL MCH 24.4 L (26-34) PG MCHC 33.0 (30-36) % RDW 19.3 H (11.6-14.8) % Plt Count 384 (150-400) X10^3/uL Neut % (Auto) Not Reportable Lymph % (Auto) Not Reportable Catron % (Auto) Not Reportable Eos % (Auto) Not Reportable Baso % (Auto) Not Reportable Lymph # (Auto) Not Reportable Catron # (Auto) Not Reportable Baso # (Auto) Not Reportable Total Counted 100 Seg Neutrophils % 66.0 D (38-70) % Lymphocytes % (Manual) 16.0 L (25-45) % Monocytes % (Manual) 14.0 H (2-11) % Eosinophils % (Manual) 2.0 (2-4) % Basophils % (Manual) 2.0 H (0-1) % Neutrophils # (Manual) 7854 H (5491-0289) /uL Nucleated RBCs 2 H ( - 0) #/Diff RBC Morphology See below Hypochromasia 1+ H Anisocytosis 3+ H Microcytosis 2+ H Sickle Cells 1+ H Target Cells 2+ H Schistocytes 1+ H Percent Retic 5.2 H (0.9-2.6) % Sodium 138 (137-145) mmol/L Potassium 3.9 (3.4-5.1) mmol/L Chloride 107 (98-107) mmol/L Carbon Dioxide 22 (22-32) mmol/L BUN 8 L (9-20) mg/dL Creatinine 0.64 L (0.66-1.25) mg/dL Estimated GFR > 60 (>60) mL/min BUN/Creatinine Ratio 12.5 (6-22) Glucose 85 (70-99) mg/dL Calcium 8.5 (8.4-10.2) mg/dL Total Bilirubin 2.8 H (0.2-1.3) mg/dL AST 51 (17-59) IU/L ALT 20 (<50) IU/L Alkaline Phosphatase 66 (38-126) U/L Total Protein 7.9 (6.3-8.2) g/dL Albumin 4.4 (3.5-5.0) g/dL Globulin 3.5 (1.7-4.1) g/dL Albumin/Globulin Ratio 1.3 (1.0-2.8) MDM Narrative Medical decision making narrative: 24-year-old male with a past medical history of sickle cell disease with prior splenectomy and 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 <Kwan Jimenes, DO - Last Filed: 02/02/25 09:38> Lab Data Labs: Lab Results 02/02/25 Range/Units 05:38 WBC 11.9 H (4.5-11.0) X10^3/uL RBC 3.89 L (4.5-5.9) X10^6/uL Hgb 9.5 L (13.5-17.5) g/dL Hct 28.7 L (41-53) % MCV 73.8 L (80-100) fL MCH 24.4 L (26-34) PG MCHC 33.0 (30-36) % RDW 19.3 H (11.6-14.8) % Plt Count 384 (150-400) X10^3/uL Neut % (Auto) Not Reportable Lymph % (Auto) Not Reportable Catron % (Auto) Not Reportable Eos % (Auto) Not Reportable Baso % (Auto) Not Reportable Lymph # (Auto) Not Reportable Catron # (Auto) Not Reportable Baso # (Auto) Not Reportable Total Counted 100 Seg Neutrophils % 66.0 D (38-70) % Lymphocytes % (Manual) 16.0 L (25-45) % Monocytes % (Manual) 14.0 H (2-11) % Eosinophils % (Manual) 2.0 (2-4) % Basophils % (Manual) 2.0 H (0-1) % Neutrophils # (Manual) 7854 H (8015-7003) /uL Nucleated RBCs 2 H ( - 0) #/Diff RBC Morphology See below Hypochromasia 1+ H Anisocytosis 3+ H Microcytosis 2+ H Sickle Cells 1+ H Target Cells 2+ H Schistocytes 1+ H Percent Retic 5.2 H (0.9-2.6) % Sodium 138 (137-145) mmol/L Potassium 3.9 (3.4-5.1) mmol/L Chloride 107 (98-107) mmol/L Carbon Dioxide 22 (22-32) mmol/L BUN 8 L (9-20) mg/dL Creatinine 0.64 L (0.66-1.25) mg/dL Estimated GFR > 60 (>60) mL/min BUN/Creatinine Ratio 12.5 (6-22) Glucose 85 (70-99) mg/dL Calcium 8.5 (8.4-10.2) mg/dL Total Bilirubin 2.8 H (0.2-1.3) mg/dL AST 51 (17-59) IU/L ALT 20 (<50) IU/L Alkaline Phosphatase 66 (38-126) U/L Total Protein 7.9 (6.3-8.2) g/dL Albumin 4.4 (3.5-5.0) g/dL Globulin 3.5 (1.7-4.1) g/dL Albumin/Globulin Ratio 1.3 (1.0-2.8) MDM Narrative Medical decision making narrative: 24-year-old male with a past medical history of sickle cell disease with prior splenectomy and 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 Patient has received 3 doses of Dilaudid 1 mg along with a bolus of 1 L lactated ringer feels much better his pain is down to a 3/10. Patient has appointment with PCP on Monday. DC home on [address] Discharge Plan Departure Patient Disposition: Home Clinical Impression: Sickle cell disease with crisis Activity Restrictions/Additional Instructions: Please follow up with your primary care doctor on Monday as previously scheduled. Take your medicine as directed Please read the discharge instructions sheet carefully and bring all papers to all doctor follow-up visits, as it may contain information that your doctor may want to see. Disease processes change and evolve, if your symptoms worsen or if you develop any new symptoms that are concerning to you please return for evaluation. Your evaluation today does not show any evidence of any life-threatening/serious illnesses requiring admission to the hospital or surgery. Please follow-up with your doctor for re-evaluation in approximately 1 day. Seek immediate medical attention for any worrisome symptoms. *If you do not have a primary care provider please contact the [facility] Resource line at [phone]. They will ask some questions about your medical history and help get you set up with a doctor in the community. Prescriptions: New hydrocodone-acetaminophen 5-325 mg tablet 1 tab PO Q4-6H PRN (Reason: pain) Qty: 20 0RF No Action cholecalciferol (vitamin D3) 10 mcg (400 unit) capsule 20 mcg PO DAILY Qty: 180 0RF Rx Instructions: Start two capsules daily after 6 weeks of 1250mcg weekly dosing. duloxetine 60 mg capsule,delayed release(DR/EC) 60 mg PO DAILY Qty: 90 2RF ondansetron 4 mg tablet,disintegrating 4 mg PO Q8H PRN (Reason: nausea and vomiting) Qty: 20 0RF albuterol sulfate 90 mcg/actuation HFA aerosol inhaler 2 puff inhalation Q6H PRN (Reason: wheezing) doxycycline hyclate 100 mg Tablet 100 mg PO BID Qty: 20 0RF naloxone 4 mg/actuation spray,non-aerosol 1 spray intranasal PRN PRN (Reason: Opioid Overdose) Qty: 4 0RF hydroxyurea (sickle cell) 400 mg capsule 400 mg PO DAILY Qty: 90 3RF hydrocodone-acetaminophen 5-325 mg tablet 1 tab PO BEDTIME PRN (Reason: pain) Qty: 15 0RF Referrals: Jen Albarran, CHILD GUIDANCE COUNSELOR-BC [Primary Care Provider, Family Practice] Stand Alone Forms: Patient Portal/API
[2025-02-02] MEDS: HYDROMORPHONE 1 MG INJ IV ×3 (05:44→08:19)
[2025-02-02] MEDS: ONDANSETRON 4 MG/2 ML INJ IV (05:44)
[2025-02-02 05:47] LABS: Reticulocyte Count, Percent 5.2 % (0.9-2.6)
[2025-02-02 05:57] LABS: Alanine Aminotransferase 20 IU/L (<50); Albumin 4.4 g/dL (3.5-5.0); Albumin Globulin Ratio 1.3 (1.0-2.8); Alkaline Phosphatase 66 U/L (38-126); Aspartate Aminotransferase 51 IU/L (17-59); BUN Creatinine Ratio 12.5 (6-22); Bilirubin Total 2.8 mg/dL (0.2-1.3); Blood Urea Nitrogen 8 mg/dL (9-20); Calcium 8.5 mg/dL (8.4-10.2); Carbon Dioxide 22 mmol/L (22-32); Chloride 107 mmol/L (98-107); Estimated Glomerular Filt Rate > 60 mL/min (>60); Globulin 3.5 g/dL (1.7-4.1); Glucose 85 mg/dL (70-99); HEMOLYSIS 38 (0-50); Hematocrit 28.7 % (41-53); Hemoglobin 9.5 g/dL (13.5-17.5); Mean Corpuscular Hemoglobin 24.4 PG (26-34); Mean Corpuscular Volume 73.8 fL (80-100); Platelet Count 384 X10^3/uL (150-400); Potassium 3.9 mmol/L (3.4-5.1); Red Blood Cell Count 3.89 X10^6/uL (4.5-5.9); Red Cell Distribution Width 19.3 % (11.6-14.8); Sodium 138 mmol/L (137-145); Total Protein 7.9 g/dL (6.3-8.2); White Blood Cell Count 11.9 X10^3/uL (4.5-11.0)
[2025-02-02 05:58] LABS: Add Manual Diff / Slide Review YES
[2025-02-02 06:40] LABS: Neutrophils Absolute Manual 7854 /uL (3000-5900); Nucleated Red Blood Cells 2 #/Diff; Total Cells Counted 100
[2025-02-02 06:41] LABS: Anisocytosis 3+; Microcytosis 2+; Target Cells 2+
[2025-02-02 06:43] LABS: Schistocytes 1+; Sickle Cells 1+
[2025-02-02 06:44] LABS: Hypochromasia 1+
--- NOTE | 2025-02-02 08:01 | PC.NURSE ---
patient requested ice water, provided.
[2025-02-02] MEDS: LACTATED RINGERS 1,000 ML 1000 ML IV (08:37)
== END 2025-02-02 09:51 | disposition home or self-care (01) ==
PROVIDERS: Student in an Organized Health Care Education/Training Program; Emergency Provider Family Medicine; PCP Nurse Practitioner Family
DX: D57.00 Hb-SS disease with crisis, unspecified (principal)
CPT/HCPCS: 36415; 80053; 85007; 85025; 85045; 96361; 96374; 96375; 99284; J1171; J2405

== ENCOUNTER 2025-02-03 10:35 | Emergency (ER) | payer OTHER, SELFPAY ==
[2025-01-15 11:49] VITALS: BMI 19.5
[2025-02-03] VITALS (11 sets, daily range): BP systolic 105–125; BP diastolic 59–74; PULSE 59–90; RESP 14–25; TEMP 36.7; O2SAT 96–100; BMI 18.6
[2025-02-03] MEDS: SODIUM CHLORIDE 0.9% 1,000 ML 1000 ML IV (12:20)
[2025-02-03 12:37] LABS: Hematocrit 29.2 % (41-53); Mean Corpuscular HGB Conc 34.3 % (30-36); Mean Corpuscular Hemoglobin 25.1 PG (26-34); Mean Corpuscular Volume 73.1 fL (80-100); Platelet Count 379 X10^3/uL (150-400); Red Blood Cell Count 3.99 X10^6/uL (4.5-5.9); Red Cell Distribution Width 20.2 % (11.6-14.8); White Blood Cell Count 10.2 X10^3/uL (4.5-11.0)
[2025-02-03 12:39] LABS: Add Manual Diff / Slide Review YES
[2025-02-03 12:44] LABS: Alanine Aminotransferase 28 IU/L (<50); Albumin 4.7 g/dL (3.5-5.0); Albumin Globulin Ratio 1.1 (1.0-2.8); Alkaline Phosphatase 76 U/L (38-126); Aspartate Aminotransferase 64 IU/L (17-59); BUN Creatinine Ratio 12.7 (6-22); Bilirubin Total 2.9 mg/dL (0.2-1.3); Blood Urea Nitrogen 8 mg/dL (9-20); Calcium 8.6 mg/dL (8.4-10.2); Carbon Dioxide 23 mmol/L (22-32); Chloride 105 mmol/L (98-107); Estimated Glomerular Filt Rate > 60 mL/min (>60); Globulin 4.1 g/dL (1.7-4.1); Glucose 80 mg/dL (70-99); HEMOLYSIS < 15 (0-50); Potassium 3.7 mmol/L (3.4-5.1); Sodium 138 mmol/L (137-145); Total Protein 8.8 g/dL (6.3-8.2)
[2025-02-03 13:00] LABS: Anisocytosis 2+; Microcytosis 1+; Neutrophils Absolute Manual 6732 /uL (3000-5900); Schistocytes 1+; Sickle Cells 1+; Target Cells 1+; Total Cells Counted 100
[2025-02-03 13:05] LABS: Reticulocyte Count, Percent 5.6 % (0.9-2.6)
--- NOTE | 2025-02-03 13:16 | ED.BACK ---
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 Patient presents with a complaint of low back pain some pain into his right leg. States this is similar to what he was had his most recent visits for. States this feels very similar to his prior episodes. Patient states no chest pain, no shortness of breath. No fevers. States has a headache yesterday but not today. Denies any other new extremity pain. Denies any nausea or vomiting. No other GI or urinary symptoms. Related Data Home Medications ?Medication ?Instructions ?Recorded ?Confirmed albuterol sulfate 90 mcg/actuation 2 puff inhalation Q6H PRN wheezing 11/18/24 01/15/25 aerosol inhaler Previous Rx's ?Medication ?Instructions ?Recorded ondansetron 4 mg disintegrating 4 mg PO Q8H PRN nausea and 10/02/24 tablet vomiting #20 tabs cholecalciferol (vitamin D3) 10 20 mcg (2 x 10 mcg (400 unit)) PO 10/25/24 mcg (400 unit) capsule DAILY #180 caps doxycycline hyclate 100 mg tablet 100 mg PO BID #20 tabs 11/24/24 naloxone 4 mg/actuation nasal spray 1 spray intranasal PRN PRN Opioid 11/24/24 Overdose #4 ea duloxetine 60 mg capsule,delayed 60 mg PO DAILY #90 caps 12/04/24 release hydroxyurea (sickle cell) 400 mg 400 mg PO DAILY #90 caps 01/12/25 capsule hydrocodone 5 mg-acetaminophen 325 1 tab PO BEDTIME PRN pain #15 tabs 01/16/25 mg tablet hydrocodone 5 mg-acetaminophen 325 1 tab PO Q4-6H PRN pain #20 tabs 02/02/25 mg tablet Allergies Allergy/AdvReac Type Severity Reaction Status Date / Time No Known Drug Allergies Allergy Verified 02/03/25 10:53 Review of Systems Review of Systems ROS Unobtainable: All systems reviewed & are unremarkable except as noted in HPI and below Patient History Medical History Vitamin D deficiency PTSD (post-traumatic stress disorder) Depression Anxiety Seizure Anemia Avascular necrosis of bone Contracture, left elbow Contracture, left hand CVA (cerebral vascular accident) Sickle cell anemia Surgical History History of shoulder surgery 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 Family History Father Cancer Sickle cell trait Lupus Mother Sickle cell trait Brother Sickle cell trait Social History household members: significant other Smoking Status: Unknown if ever smoked alcohol intake: current Smoking Status: Unknown if ever smoked tobacco type: vaping alcohol intake frequency: holidays/special occasions only Exam Narrative Exam Narrative: GENERAL: Alert and oriented x three, mild distress. HEENT: Head normocephalic, atraumatic, EOMI, pupils reactive, face symmetric, moist mucous membranes NECK: Supple, full range of motion CARDIOVASCULAR: Regular rate and rhythm without murmurs, rubs or gallops. RESPIRATORY: Breath sounds equal bilaterally, no wheezes rales or rhonchi. No tachypnea. No accessory muscle use. ABDOMEN: Soft, nontender. Normoactive bowel sounds all 4 quadrants. No guarding or rebound, rigidity, no mass : No CVA tenderness EXTREMITIES: Left-sided atrophy and contracture of upper extremity, no edema extremities. Neurovascularly intact NEUROLOGICAL: Cranial nerves II through XII grossly intact. Moving all extremities SKIN: Warm, dry, no petechiae, no rashes or lesions. Initial Vital Signs Initial Vital Signs: Vital Signs Temperature 98.0 F 02/03/25 10:54 Pulse Rate 70 02/03/25 10:54 Respiratory Rate 14 02/03/25 10:54 Blood Pressure 125/60 02/03/25 10:54 Pulse Oximetry 100 02/03/25 10:54 Oxygen Delivery Method Room Air 02/03/25 10:54 Course Orders Ordered: ED Orders 02/03/25 12:20 CBC Auto Diff [Complete Blood Count AUTO DIFF] Stat CMP [Comprehensive Metabolic Panel] Stat RETIC [Reticulocyte Count, Percent] Stat Discontinued Medications Hydromorphone HCl (Hydromorphone 1 Mg Inj) 1 mg IV NOW ONE Stop: 02/03/25 13:29 Last Admin: 02/03/25 13:33 Dose: 1 mg Documented By: INO Hydromorphone HCl (Hydromorphone 1 Mg Inj) 1 mg IV NOW ONE Stop: 02/03/25 13:54 Last Admin: 02/03/25 14:45 Dose: 1 mg Documented By: INO Hydromorphone HCl (Hydromorphone 0.5 Mg Inj) 0.5 mg IV NOW ONE Stop: 02/03/25 15:22 Last Admin: 02/03/25 15:24 Dose: 0.5 mg Documented By: INO Sodium Chloride (Normal Saline 0.9%) 1,000 mls @ 1,000 mls/hr IV BOLUS ONE Stop: 02/03/25 12:15 Last Infusion: 02/03/25 13:25 Dose: Infused Documented By: Admin: 02/03/25 12:20 Dose: 1,000 mls/hr Documented By: INO Lactated Ringer's (Lactated Ringers) 1,000 mls @ 1,000 mls/hr IV BOLUS ONE Stop: 02/03/25 14:52 Last Infusion: 02/03/25 15:49 Dose: Infused Documented By: Admin: 02/03/25 14:29 Dose: 1,000 mls/hr Documented By: INO Vital Signs Vital signs: Vital Signs - 8 hr 02/03/25 12:13 02/03/25 12:13 02/03/25 12:30 Pulse Rate 65 Respiratory Rate Blood Pressure 108/66 105/64 Pulse Oximetry 98 Oxygen Delivery Method 02/03/25 12:30 02/03/25 13:00 02/03/25 13:00 Pulse Rate 64 59 L Respiratory Rate 19 21 Blood Pressure 106/71 Pulse Oximetry 99 100 Oxygen Delivery Method 02/03/25 13:30 02/03/25 13:30 02/03/25 14:00 Pulse Rate 62 Respiratory Rate 21 Blood Pressure 111/64 106/60 Pulse Oximetry 100 Oxygen Delivery Method 02/03/25 14:00 02/03/25 14:30 02/03/25 14:30 Pulse Rate 72 85 Respiratory Rate 25 H 23 Blood Pressure 122/61 Pulse Oximetry 96 98 Oxygen Delivery Method 02/03/25 15:00 02/03/25 15:00 02/03/25 15:30 Pulse Rate 90 90 Respiratory Rate 25 H 18 Blood Pressure 115/59 L Pulse Oximetry 100 97 Oxygen Delivery Method 02/03/25 15:31 02/03/25 15:31 02/03/25 16:00 Pulse Rate 84 Respiratory Rate 16 Blood Pressure 124/74 116/65 Pulse Oximetry 99 Oxygen Delivery Method Room Air 02/03/25 16:00 Pulse Rate 80 Respiratory Rate 22 Blood Pressure Pulse Oximetry 100 Oxygen Delivery Method MDM - Back Pain/Injury Lab Data 02/03/25 12:20 02/03/25 12:20 Labs: Lab Results 02/03/25 Range/Units 12:20 WBC 10.2 (4.5-11.0) X10^3/uL RBC 3.99 L (4.5-5.9) X10^6/uL Hgb 10.0 L (13.5-17.5) g/dL Hct 29.2 L (41-53) % MCV 73.1 L (80-100) fL MCH 25.1 L (26-34) PG MCHC 34.3 (30-36) % RDW 20.2 H (11.6-14.8) % Plt Count 379 (150-400) X10^3/uL Neut % (Auto) Not Reportable Lymph % (Auto) Not Reportable Jones % (Auto) Not Reportable Eos % (Auto) Not Reportable Baso % (Auto) Not Reportable Lymph # (Auto) Not Reportable Jones # (Auto) Not Reportable Baso # (Auto) Not Reportable Total Counted 100 Seg Neutrophils % 66.0 (38-70) % Lymphocytes % (Manual) 27.0 (25-45) % Monocytes % (Manual) 6.0 (2-11) % Basophils % (Manual) 1.0 (0-1) % Neutrophils # (Manual) 6732 H (9871-3115) /uL RBC Morphology See below Anisocytosis 2+ H Microcytosis 1+ H Sickle Cells 1+ H Target Cells 1+ H Schistocytes 1+ H Percent Retic 5.6 H (0.9-2.6) % Sodium 138 (137-145) mmol/L Potassium 3.7 (3.4-5.1) mmol/L Chloride 105 (98-107) mmol/L Carbon Dioxide 23 (22-32) mmol/L BUN 8 L (9-20) mg/dL Creatinine 0.63 L (0.66-1.25) mg/dL Estimated GFR > 60 (>60) mL/min BUN/Creatinine Ratio 12.7 (6-22) Glucose 80 (70-99) mg/dL Calcium 8.6 (8.4-10.2) mg/dL Total Bilirubin 2.9 H (0.2-1.3) mg/dL AST 64 H (17-59) IU/L ALT 28 (<50) IU/L Alkaline Phosphatase 76 (38-126) U/L Total Protein 8.8 H (6.3-8.2) g/dL Albumin 4.7 (3.5-5.0) g/dL Globulin 4.1 (1.7-4.1) g/dL Albumin/Globulin Ratio 1.1 (1.0-2.8) MDM Narrative Medical decision making narrative: Patient's labs show white count of 10.2, hemoglobin of 10 priors were 9.8 and 9.5 on the and . Patient is microcytic with platelets of 379. Patient's reticulocyte is 5.6 this is consistent with priors from the last 2 days. 24-year-old male presents with a complaint of lower back pain does have a home prescription for hydrocodone but states it did not take it today because it with a working. Patient received fluids, narcotic medication. Patient states he does not wish to be admitted. We did discuss keeping him overnight. Discharge Plan Departure Patient Disposition: Home Clinical Impression: Sickle-cell disease with pain Activity Restrictions/Additional Instructions: Follow up with your primary care physician on your scheduled appointment this week. I would recommend taking your oral pain medication at home to see if this is helpful even if you do end up coming into the emergency department. Return for fevers, new chest pain or shortness of breath, increasing pain, persistent vomiting or any other new or concerning changes. Prescriptions: No Action cholecalciferol (vitamin D3) 10 mcg (400 unit) capsule 20 mcg PO DAILY Qty: 180 0RF Rx Instructions: Start two capsules daily after 6 weeks of 1250mcg weekly dosing. duloxetine 60 mg capsule,delayed release(DR/EC) 60 mg PO DAILY Qty: 90 2RF ondansetron 4 mg tablet,disintegrating 4 mg PO Q8H PRN (Reason: nausea and vomiting) Qty: 20 0RF albuterol sulfate 90 mcg/actuation HFA aerosol inhaler 2 puff inhalation Q6H PRN (Reason: wheezing) doxycycline hyclate 100 mg Tablet 100 mg PO BID Qty: 20 0RF naloxone 4 mg/actuation spray,non-aerosol 1 spray intranasal PRN PRN (Reason: Opioid Overdose) Qty: 4 0RF hydroxyurea (sickle cell) 400 mg capsule 400 mg PO DAILY Qty: 90 3RF hydrocodone-acetaminophen 5-325 mg tablet 1 tab PO BEDTIME PRN (Reason: pain) Qty: 15 0RF hydrocodone-acetaminophen 5-325 mg tablet 1 tab PO Q4-6H PRN (Reason: pain) Qty: 20 0RF Referrals: Jen Albarran, PROJECT MANAGEMENT ENGINEER-[employer] [Primary Care Provider, Family Practice] Stand Alone Forms: Patient Portal/API
[2025-02-03] MEDS: HYDROMORPHONE 1 MG INJ IV ×2 (13:33→14:45)
[2025-02-03] MEDS: LACTATED RINGERS 1,000 ML 1000 ML IV (14:29)
[2025-02-03] MEDS: HYDROMORPHONE 0.5 MG INJ IV (15:24)
== END 2025-02-03 16:25 | disposition home or self-care (01) ==
PROVIDERS: Emergency Provider Emergency Medicine; PCP Nurse Practitioner Family
DX: D57.00 Hb-SS disease with crisis, unspecified (principal)
CPT/HCPCS: 36415; 80053; 85007; 85025; 85045; 96361; 96374; 96376; 99284; J1171

== ENCOUNTER 2025-02-13 07:25 | Emergency (ER) | payer OTHER, SELFPAY ==
[2025-01-15 11:49] VITALS: BMI 19.5
[2025-02-13] VITALS (11 sets, daily range): BP systolic 105–134; BP diastolic 58–76; PULSE 59–75; RESP 12–27; TEMP 36.9; O2SAT 96–98; BMI 18.6
--- NOTE | 2025-02-13 08:08 | ED_ITS ---
HPI - General Adult General Chief complaint: Recheck/Abnormal Lab/Rx Stated complaint: flare up Time Seen by Provider: 02/13/25 07:43 Source: patient Mode of arrival: Ambulatory History of Present Illness HPI narrative: Patient here for sickle cell crisis/pain/exacerbation. Started at 5:00 a.m. this morning. Has bilateral shoulder pain. This is not new. This is typical of his sickle cell events. Patient has been seen here in this ER department 17 times in the past 12 weeks. Patient does have family doctor but has not been referred to seniour insight manager or pain management. Patient is seen here 9 times last month. No recent illness fever chills cough cold or congestion. Residual left- sided stroke is not new. Related Data Home Medications ?Medication ?Instructions ?Recorded ?Confirmed albuterol sulfate 90 mcg/actuation 2 puff inhalation Q 6H PRN wheezing 11/18/24 01/15/25 aerosol inhaler Previous Rx's ?Medication ?Instructions ?Recorded ondansetron 4 mg disintegrating 4 mg PO Q8H PRN nausea and 10/02/24 tablet vomiting #20 tabs cholecalciferol (vitamin D3) 10 20 mcg (2 x 10 mcg (40 0 unit)) PO 10/25/24 mcg (400 unit) capsule DAILY #180 caps doxycycline hyclate 100 mg tablet 100 mg PO BID #20 ta bs 11/24/24 naloxone 4 mg/actuation nasal spray 1 spray intranasal PRN PRN Opioid 11/24/24 Overdose #4 ea duloxetine 60 mg capsule,delayed 60 mg PO DAILY #90 ca ps 12/04/24 release hydroxyurea (sickle cell) 400 mg 400 mg PO DAILY #90 c aps 01/12/25 capsule hydrocodone 5 mg-acetaminophen 325 1 tab PO BEDTIME UT N pain #15 tabs 01/16/25 mg tablet hydrocodone 5 mg-acetaminophen 325 1 tab PO Q4-6H PRN pain #20 tabs 02/02/ mg tablet Allergies Allergy/AdvReac Type Severity Reaction Status Date / Time No Known Drug Allergies Allergy Verified 02/03/25 10:53 Review of Systems Review of Systems Narrative: GENERAL: Negative chills, fatigue, malaise, fever, sweats. HEENT: Negative sinus pain, ear pain, sore throat RESPIRATORY: Negative dyspnea, cough CARDIOVASCULAR: Negative chest pain, palpitations GASTROINTESTINAL: Negative vomiting, nausea, abdominal pain : Negative dysuria, frequency, hematuria MUSCULOSKELETAL: Positive muscle or bony pain SKIN: Negative rash, skin lesions NEUROLOGIC: Negative weakness, numbness ROS Unobtainable: All systems reviewed & are unremarkable except as noted in HPI and below Patient History Medical History Vitamin D deficiency PTSD (post-traumatic stress disorder) Depression Anxiety Seizure Anemia Avascular necrosis of bone Contracture, left elbow Contracture, left hand CVA (cerebral vascular accident) Sickle cell anemia Surgical History History of shoulder surgery 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 EYES: Pupils equal round ENT: Mucous membranes moist. NECK: Trachea midline. CARDIOVASCULAR: Regular rate and rhythm RESPIRATORY: Clear to auscultation. Breath sounds equal bilaterally. No wheezes, rales, or rhonchi. GASTROINTESTINAL: Abdomen soft, non-tender EXTREMITIES: There is mild tenderness of the bilateral shoulders. However no gross deformities. Patient able hold phone with the right hand with no difficulty on his cell phone. Patient has baseline left upper extremity weakness from previous stroke. No difficulties with active and passive range of motion with the shoulders bilaterally. BACK: No flank tenderness. NEURO: AOx4. Clear speech SKIN: Warm and dry PSYCH: Not anxious, is cooperative Initial Vital Signs Initial Vital Signs: Vital Signs Temperature 98.5 F 02/13/25 07:25 Pulse Rate 72 02/13/25 07:25 Respiratory Rate 12 02/13/25 07:25 Blood Pressure 105/59 L 02/13/25 07:25 Pulse Oximetry 97 02/13/25 07:25 Oxygen Delivery Method Room Air 02/13/25 07:25 Course Orders Ordered: ED Orders 02/13/25 08:15 CBC Auto Diff [Complete Blood Count AUTO DIFF] Stat CMP [Comprehensive Metabolic Panel] Stat Reticulocyte Count, Percent Stat 02/13/25 09:16 EKG-12 Lead Stat 02/13/25 09:38 Urine Drug Screen, Rapid Stat Discontinued Medications Hydromorphone HCl (Hydromorphone 1 Mg Inj) 1 mg IV NOW ONE Stop: 02/13/25 07:47 Last Admin: 02/13/25 08:14 Dose: 1 mg Documented By: MLAramis Hydromorphone HCl (Hydromorphone 1 Mg Inj) 1 mg IV NOW ONE Stop: 02/13/25 09:38 Last Admin: 02/13/25 09:44 Dose: 1 mg Documented By: MLAramis Sodium Chloride (Normal Saline 0.9%) 1,000 mls @ 1,000 mls/hr IV BOLUS ONE Stop: 02/13/25 08:45 Last Infusion: 02/13/25 09:33 Dose: Infused Documented By: MLAramis Admin: 02/13/25 08:13 Dose: 1,000 mls/hr Documented By: PETE Ondansetron HCl (Ondansetron 4 Mg/2 Ml Inj) 4 mg IV NOW ONE Stop: 02/13/25 10:29 Last Admin: 02/13/25 10:35 Dose: 4 mg Documented By: TC Vital Signs Vital signs: Vital Signs - 8 hr 02/13/25 07:25 02/13/25 07:43 02/13/25 07:44 Temperature 98.5 F Pulse Rate 72 72 Respiratory Rate 12 Blood Pressure 105/59 L 105/59 L Pulse Oximetry 97 96 Oxygen Delivery Method Room Air 02/13/25 08:00 02/13/25 08:00 02/13/25 08:19 Temperature Pulse Rate 70 75 Respiratory Rate 20 18 Blood Pressure 134/73 Pulse Oximetry 98 96 Oxygen Delivery Method 02/13/25 08:19 02/13/25 08:30 02/13/25 08:30 Temperature Pulse Rate 67 Respiratory Rate 27 H Blood Pressure 121/71 119/60 Pulse Oximetry 97 Oxygen Delivery Method 02/13/25 09:00 02/13/25 09:00 02/13/25 09:30 Temperature Pulse Rate 62 61 Respiratory Rate 18 18 Blood Pressure 111/76 Pulse Oximetry 97 98 Oxygen Delivery Method 02/13/25 09:30 02/13/25 10:00 02/13/25 10:00 Temperature Pulse Rate 63 Respiratory Rate 17 Blood Pressure 123/71 120/72 Pulse Oximetry 96 Oxygen Delivery Method 02/13/25 10:30 02/13/25 10:30 02/13/25 10:45 Temperature Pulse Rate 65 59 L Respiratory Rate 24 16 Blood Pressure 124/66 Pulse Oximetry 97 97 Oxygen Delivery Method 02/13/25 10:45 Temperature Pulse Rate Respiratory Rate Blood Pressure 125/58 L Pulse Oximetry Oxygen Delivery Method Medical Decision Making Lab Data 02/13/25 08:15 02/13/25 08:15 Labs: Lab Results 02/13/25 Range/Units 08:15 WBC 9.1 (4.5-11.0) X10^3/uL RBC 3.66 L (4.5-5.9) X10^6/uL Hgb 9.3 L (13.5-17.5) g/dL Hct 26.6 L (41-53) % MCV 72.6 L (80-100) fL MCH 25.3 L (26-34) PG MCHC 34.8 (30-36) % RDW 19.6 H (11.6-14.8) % Plt Count 206 (150-400) X10^3/uL Neut % (Auto) 53.3 (50-75) % Lymph % (Auto) 29.0 (25-40) % [place] % (Auto) 12.4 (3-14) % Eos % (Auto) 3.7 (2-4) % Baso % (Auto) 1.6 (0-2) % Neut # (Auto) 4800 (6242-3979) /uL Lymph # (Auto) 2600 (6904-6089) /uL [place] # (Auto) 1100 H (0-900) /uL Eos # (Auto) 300 (0-450) /uL Baso # (Auto) 100 (0-100) /uL Percent Retic 7.4 H (0.9-2.6) % Sodium 138 (137-145) mmol/L Potassium 3.9 (3.4-5.1) mmol/L Chloride 108 H (98-107) mmol/L Carbon Dioxide 23 (22-32) mmol/L BUN 6 L (9-20) mg/dL Creatinine 0.61 L (0.66-1.25) mg/dL Estimated GFR > 60 (>60) mL/min BUN/Creatinine Ratio 9.8 (6-22) Glucose 93 (70-99) mg/dL Calcium 8.3 L (8.4-10.2) mg/dL Total Bilirubin 2.1 H (0.2-1.3) mg/dL AST 51 (17-59) IU/L ALT 29 (<50) IU/L Alkaline Phosphatase 64 (38-126) U/L Total Protein 7.3 (6.3-8.2) g/dL Albumin 4.0 (3.5-5.0) g/dL Globulin 3.3 (1.7-4.1) g/dL Albumin/Globulin Ratio 1.2 (1.0-2.8) [facility] Narrative Medical decision making narrative: Patient here with . Patient is sent here from walk-in clinic for feeling very overwhelmed. She states there has been 3 deaths in the last 4 weeks. Has been overwhelming. She can not sleep she can not eat. She has tried relaxation methods she has tried yoga she has tried meditation. She can not get into her family doctor until next month. She is scheduled for back surgery next month. She feels dehydrated. Blood pressure is elevated. She is not on any blood pressure medication. She feels flushed. She feels shaky as well. She is not on any psychiatric medication. She has hard time focusing. She is pacing around the house at nighttime waiting for [place]. After history and exam, CBC CMP reticulocyte count normal saline Dilaudid, exam is reassuring. No blood culture or imaging indicated. This is patient is difficult flare-up pattern. [facility] Medical records reviewed: Multiple ER visits in the past 12 weeks Differential considered: Includes but not limited to sickle cell crisis, opiate dependence Consultations: 9:[address] Haines, cardiology service regarding EKG. Patient asymptomatic with Hai 1. May follow up with family doctor and referral to cardiology services. WBC 9.1 hemoglobin 9.3 hematocrit 26.6 platelets 206 reticulocyte count 7.4 sodium 130 potassium 3.9 BUN 6 creatinine 0.61 calcium 8.3 Re-evaluations: 9:46 a.m.. Reviewed with patient my discussion with Cardiology services regarding his EKG. This is incidental finding. Patient is asymptomatic. No chest pain or shortness of breath. Can follow up with family doctor and referral to cardiology services. No new medications indicated. Return precautions reviewed. 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 Encouraged patient to get referral for pain management and hematology service by primary care. Discussion: Appropriate for discharge home. Exam is reassuring laboratory studies are reassuring. Cardiology services reviewed EKG for outpatient follow up. Patient at baseline laboratory studies. Vital signs are reassuring. Patient feeling better. Return precautions reviewed. Clinically not septic joints of the shoulders. This is not new pain for patient. Diagnosis: Sickle cell crisis Discharge Plan Departure Patient Disposition: Home Clinical Impression: Sickle-cell disease with pain Instructions: DI for Sickle Cell Anemia, Pain Crisis -- Adult, DI for Arrhythmias Activity Restrictions/Additional Instructions: Your laboratory studies are reassuring. Your EKG does show a rhythm called Mobitz type 1. No new medications or indicated. Please to see your family doctor for follow up and referral to cardiology services. No driving operating machinery today. Please do get referral from your family doctor for hematology services and pain management services. Prescriptions: No Action cholecalciferol (vitamin D3) 10 mcg (400 unit) capsule 20 mcg PO DAILY Qty: 180 0RF Rx Instructions: Start two capsules daily after 6 weeks of 1250mcg weekly dosing. duloxetine 60 mg capsule,delayed release(DR/EC) 60 mg PO DAILY Qty: 90 2RF ondansetron 4 mg tablet,disintegrating 4 mg PO Q8H PRN (Reason: nausea and vomiting) Qty: 20 0RF albuterol sulfate 90 mcg/actuation HFA aerosol inhaler 2 puff inhalation Q6H PRN (Reason: wheezing) doxycycline hyclate 100 mg Tablet 100 mg PO BID Qty: 20 0RF naloxone 4 mg/actuation spray,non-aerosol 1 spray intranasal PRN PRN (Reason: Opioid Overdose) Qty: 4 0RF hydroxyurea (sickle cell) 400 mg capsule 400 mg PO DAILY Qty: 90 3RF hydrocodone-acetaminophen 5-325 mg tablet 1 tab PO BEDTIME PRN (Reason: pain) Qty: 15 0RF hydrocodone-acetaminophen 5-325 mg tablet 1 tab PO Q4-6H PRN (Reason: pain) Qty: 20 0RF Referrals: Gerson Torres MD [Physician, Cardiology] Jen Albarran FNP-BC [Primary Care Provider, Family Practice] Stand Alone Forms: Patient Portal/API, Work Release Note
[2025-02-13] MEDS: SODIUM CHLORIDE 0.9% 1,000 ML 1000 ML IV (08:13)
[2025-02-13] MEDS: HYDROMORPHONE 1 MG INJ IV ×2 (08:14→09:44)
[2025-02-13 08:30] LABS: Add Manual Diff / Slide Review NO; Hematocrit 26.6 % (41-53); Hemoglobin 9.3 g/dL (13.5-17.5); Lymphocytes Absolute Auto 2600 /uL (1100-4500); Mean Corpuscular HGB Conc 34.8 % (30-36); Mean Corpuscular Hemoglobin 25.3 PG (26-34); Mean Corpuscular Volume 72.6 fL (80-100); Platelet Count 206 X10^3/uL (150-400)
[2025-02-13 08:36] LABS: Reticulocyte Count, Percent 7.4 % (0.9-2.6)
[2025-02-13 08:38] LABS: Alanine Aminotransferase 29 IU/L (<50); Albumin 4.0 g/dL (3.5-5.0); Albumin Globulin Ratio 1.2 (1.0-2.8); Alkaline Phosphatase 64 U/L (38-126); Blood Urea Nitrogen 6 mg/dL (9-20); Calcium 8.3 mg/dL (8.4-10.2); Carbon Dioxide 23 mmol/L (22-32); Chloride 108 mmol/L (98-107); Estimated Glomerular Filt Rate > 60 mL/min (>60); Globulin 3.3 g/dL (1.7-4.1); Glucose 93 mg/dL (70-99); HEMOLYSIS < 15 (0-50); Potassium 3.9 mmol/L (3.4-5.1); Sodium 138 mmol/L (137-145); Total Protein 7.3 g/dL (6.3-8.2)
--- NOTE | 2025-02-13 09:16 | EKG_ITS ---
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
--- NOTE | 2025-02-13 09:23 | PC.NURSE ---
Hai Gordon on EKG, Dr Stanley notified, no new orders.
[2025-02-13] MEDS: ONDANSETRON 4 MG/2 ML INJ IV (10:35)
== END 2025-02-13 10:55 | disposition home or self-care (01) ==
PROVIDERS: Emergency Provider Emergency Medicine; PCP Nurse Practitioner Family
DX: D57.00 Hb-SS disease with crisis, unspecified (principal)
CPT/HCPCS: 36415; 80053; 85025; 85045; 93005; 93010; 96361; 96374; 96375; 96376; 99284; J1171; J2405

== ENCOUNTER 2025-02-15 07:20 | Emergency (ER) | payer OTHER, SELFPAY ==
[2025-01-15 11:49] VITALS: BMI 19.5
[2025-02-15] VITALS (12 sets, daily range): BP systolic 97–119; BP diastolic 60–74; PULSE 57–66; RESP 15–18; TEMP 36.6; O2SAT 95–100; BMI 18.6
--- NOTE | 2025-02-15 08:01 | ED.BACK ---
HPI - Back Pain/Injury General Chief Complaint: Back Pain/Injury Stated Complaint: Pain everywhere, nauseated Time Seen by Provider: 02/15/25 07:26 Source: patient History of Present Illness HPI Narrative: 24-year-old male history of sickle cell disease here for nausea, headache, pain all over including legs, back, and abdomen. Patient did have a bowel movement earlier this morning and is passing gas. Patient still has to fill out paperwork for Hematology referral. He denies chest pain, shortness of breath, cough, runny nose, sore throat, diarrhea, constipation, urinary complaints, testicular pain, and penile discharge. Other than what is stated 14 point review of system is negative. Related Data Home Medications ?Medication ?Instructions ?Recorded ?Confirmed albuterol sulfate 90 mcg/actuation 2 puff inhalation Q6H PRN wheezing 11/18/24 01/15/25 aerosol inhaler Previous Rx's ?Medication ?Instructions ?Recorded ondansetron 4 mg disintegrating 4 mg PO Q8H PRN nausea and 10/02/24 tablet vomiting #20 tabs cholecalciferol (vitamin D3) 10 20 mcg (2 x 10 mcg (400 unit)) PO 10/25/24 mcg (400 unit) capsule DAILY #180 caps doxycycline hyclate 100 mg tablet 100 mg PO BID #20 tabs 11/24/24 naloxone 4 mg/actuation nasal spray 1 spray intranasal PRN PRN Opioid 11/24/24 Overdose #4 ea duloxetine 60 mg capsule,delayed 60 mg PO DAILY #90 caps 12/04/24 release hydroxyurea (sickle cell) 400 mg 400 mg PO DAILY #90 caps 01/12/25 capsule hydrocodone 5 mg-acetaminophen 325 1 tab PO BEDTIME PRN pain #15 tabs 01/16/25 mg tablet hydrocodone 5 mg-acetaminophen 325 1 tab PO Q4-6H PRN pain #20 tabs 02/02/25 mg tablet Allergies Allergy/AdvReac Type Severity Reaction Status Date / Time No Known Drug Allergies Allergy Verified 02/15/25 07:30 Review of Systems Review of Systems ROS Unobtainable: All systems reviewed & are unremarkable except as noted in HPI and below Patient History Medical History Vitamin D deficiency PTSD (post-traumatic stress disorder) Depression Anxiety Seizure Anemia Avascular necrosis of bone Contracture, left elbow Contracture, left hand CVA (cerebral vascular accident) Sickle cell anemia Surgical History History of shoulder surgery 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 Well-developed patient, in mild distress. HEAD: Atraumatic. Normocephalic. EYES: Pupils equal round and reactive. Extraocular motions intact. No scleral icterus. No injection or drainage. ENT: Nose without bleeding, purulent drainage. Throat without erythema, tonsillar hypertrophy or exudate. Airway patent. NECK: Trachea midline. Non tender CARDIOVASCULAR: Regular rate and rhythm without murmurs, gallops, or rubs. RESPIRATORY: Clear to auscultation. Breath sounds equal bilaterally. No wheezes, rales, or rhonchi. GASTROINTESTINAL: Abdomen soft, non-tender, nondistended. EXTREMITIES: No edema or joint tenderness. Left wrist chronically hyperflexed BACK: Nontender without deformity or crepitance. No flank tenderness. NEURO: AOx3. SKIN: No rash or erythema of visible areas Initial Vital Signs Initial Vital Signs: Vital Signs Pulse Rate 59 L 02/15/25 07:25 Blood Pressure 107/74 02/15/25 07:25 Pulse Oximetry 99 02/15/25 07:25 Course Orders Ordered: ED Orders 02/15/25 08:04 CBC Auto Diff [Complete Blood Count AUTO DIFF] Stat CMP [Comprehensive Metabolic Panel] Stat Reticulocyte Count, Percent Stat 02/15/25 08:45 Covid-19 + FLU A/B + RSV - PCR Stat Discontinued Medications Hydromorphone HCl (Hydromorphone Hcl 0.5 Mg/0.5 Ml Syringe) 0.5 mg IV NOW ONE Stop: 02/15/25 07:36 Last Admin: 02/15/25 08:05 Dose: Not Given Documented By: SCOTT Hydromorphone HCl (Hydromorphone 1 Mg Inj) 0.5 mg IM NOW ONE Stop: 02/15/25 08:03 Last Admin: 02/15/25 08:16 Dose: 0.5 mg Documented By: SCOTT Hydromorphone HCl (Hydromorphone 1 Mg Inj) 1 mg IM NOW ONE Stop: 02/15/25 09:29 Last Admin: 02/15/25 09:37 Dose: 1 mg Documented By: SCOTT Lactated Ringer's (Lactated Ringers) 1,000 mls @ 1,000 mls/hr IV BOLUS ONE Stop: 02/15/25 08:34 Last Admin: 02/15/25 08:05 Dose: Not Given Documented By: SCOTT Ondansetron HCl (Ondansetron 4 Mg Odt) 4 mg SL NOW ONE Stop: 02/15/25 08:01 Last Admin: 02/15/25 08:16 Dose: 4 mg Documented By: SCOTT Vital Signs Vital signs: Vital Signs - 8 hr 02/15/25 07:25 02/15/25 07:25 02/15/25 07:29 Temperature 97.8 F Pulse Rate 59 L 66 Respiratory Rate 18 Blood Pressure 107/74 107/74 Pulse Oximetry 99 100 Oxygen Delivery Method Room Air 02/15/25 07:30 02/15/25 07:30 02/15/25 08:00 Temperature Pulse Rate 62 63 Respiratory Rate Blood Pressure 115/72 Pulse Oximetry 99 99 Oxygen Delivery Method 02/15/25 08:01 02/15/25 08:01 02/15/25 08:30 Temperature Pulse Rate 57 L 62 Respiratory Rate Blood Pressure 109/73 Pulse Oximetry 100 98 Oxygen Delivery Method 02/15/25 08:30 02/15/25 09:00 02/15/25 09:00 Temperature Pulse Rate 58 L Respiratory Rate Blood Pressure 110/66 105/66 Pulse Oximetry 98 Oxygen Delivery Method 02/15/25 09:30 02/15/25 09:30 02/15/25 10:00 Temperature Pulse Rate 62 61 Respiratory Rate Blood Pressure 97/72 Pulse Oximetry 98 96 Oxygen Delivery Method 02/15/25 10:00 02/15/25 10:30 02/15/25 10:30 Temperature Pulse Rate 60 Respiratory Rate Blood Pressure 106/60 106/62 Pulse Oximetry 96 Oxygen Delivery Method 02/15/25 11:00 02/15/25 11:00 Temperature Pulse Rate 61 Respiratory Rate Blood Pressure 108/60 Pulse Oximetry 95 Oxygen Delivery Method MDM - Back Pain/Injury Lab Data 02/15/25 08:04 02/15/25 08:04 Labs: Lab Results 02/15/25 02/15/25 Range/Units 08:04 08:45 WBC 9.6 (4.5-11.0) X10^3/uL RBC 3.82 L (4.5-5.9) X10^6/uL Hgb 9.4 L (13.5-17.5) g/dL Hct 28.1 L (41-53) % MCV 73.6 L (80-100) fL MCH 24.6 L (26-34) PG MCHC 33.3 (30-36) % RDW 20.5 H (11.6-14.8) % Plt Count 199 (150-400) X10^3/uL Neut % (Auto) 57.8 (50-75) % Lymph % (Auto) 25.1 (25-40) % [place] % (Auto) 13.2 (3-14) % Eos % (Auto) 3.2 (2-4) % Baso % (Auto) 0.7 (0-2) % Neut # (Auto) 5600 (2638-1389) /uL Lymph # (Auto) 2400 (2147-8563) /uL [place] # (Auto) 1300 H (0-900) /uL Eos # (Auto) 300 (0-450) /uL Baso # (Auto) 100 (0-100) /uL RBC Morphology See below Polychromasia 1+ H Anisocytosis 2+ H Macrocytosis 1+ H Sickle Cells 2+ H Target Cells 1+ H Acanthocytes (Spur) 1+ Percent Retic 8.4 H (0.9-2.6) % Sodium 141 (137-145) mmol/L Potassium 3.7 (3.4-5.1) mmol/L Chloride 108 H (98-107) mmol/L Carbon Dioxide 23 (22-32) mmol/L BUN 7 L (9-20) mg/dL Creatinine 0.63 L (0.66-1.25) mg/dL Estimated GFR > 60 (>60) mL/min BUN/Creatinine Ratio 11.1 (6-22) Glucose 89 (70-99) mg/dL Calcium 8.5 (8.4-10.2) mg/dL Total Bilirubin 2.8 H (0.2-1.3) mg/dL AST 48 (17-59) IU/L ALT 27 (<50) IU/L Alkaline Phosphatase 69 (38-126) U/L Total Protein 7.9 (6.3-8.2) g/dL Albumin 4.3 (3.5-5.0) g/dL Globulin 3.6 (1.7-4.1) g/dL Albumin/Globulin Ratio 1.2 (1.0-2.8) SARS-CoV-2 (PCR) Negative (Negative) Influenza A (RT-PCR) Flu a negative (NEGATIVE) Influenza B (RT-PCR) Flu b negative (NEGATIVE) RSV (PCR) Negative (Negative) MDM Narrative Medical decision making narrative: Vital signs, nurse triage note, medication list, previous ER visits, and all imaging studies reviewed. Dilaudid x2 IM given along with Zofran given here. Differential diagnosis includes sickle cell, chronic pain management. Follow up PCP pending hematology referral Discharge Plan Departure Patient Disposition: Home Clinical Impression: Sickle-cell disease with pain Instructions: Sickle Cell Disease Activity Restrictions/Additional Instructions: Return with new or worsening symptom. Follow up PCP pending hematology referral and complete paperwork. Prescriptions: No Action cholecalciferol (vitamin D3) 10 mcg (400 unit) capsule 20 mcg PO DAILY Qty: 180 0RF Rx Instructions: Start two capsules daily after 6 weeks of 1250mcg weekly dosing. duloxetine 60 mg capsule,delayed release(DR/EC) 60 mg PO DAILY Qty: 90 2RF ondansetron 4 mg tablet,disintegrating 4 mg PO Q8H PRN (Reason: nausea and vomiting) Qty: 20 0RF albuterol sulfate 90 mcg/actuation HFA aerosol inhaler 2 puff inhalation Q6H PRN (Reason: wheezing) doxycycline hyclate 100 mg Tablet 100 mg PO BID Qty: 20 0RF naloxone 4 mg/actuation spray,non-aerosol 1 spray intranasal PRN PRN (Reason: Opioid Overdose) Qty: 4 0RF hydroxyurea (sickle cell) 400 mg capsule 400 mg PO DAILY Qty: 90 3RF hydrocodone-acetaminophen 5-325 mg tablet 1 tab PO BEDTIME PRN (Reason: pain) Qty: 15 0RF hydrocodone-acetaminophen 5-325 mg tablet 1 tab PO Q4-6H PRN (Reason: pain) Qty: 20 0RF Referrals: Jen Albarran FNP-BC [Primary Care Provider, Family Practice] Stand Alone Forms: Patient Portal/API
[2025-02-15] MEDS: HYDROMORPHONE 1 MG INJ 0.5 MG IM (08:16)
[2025-02-15] MEDS: ONDANSETRON 4 MG ODT SL (08:16)
[2025-02-15 08:28] LABS: Hematocrit 28.1 % (41-53); Hemoglobin 9.4 g/dL (13.5-17.5); Lymphocytes Absolute Auto 2400 /uL (1100-4500); Mean Corpuscular HGB Conc 33.3 % (30-36); Mean Corpuscular Hemoglobin 24.6 PG (26-34); Mean Corpuscular Volume 73.6 fL (80-100); Platelet Count 199 X10^3/uL (150-400)
[2025-02-15 08:29] LABS: Add Manual Diff / Slide Review SLIDE REVIEW
[2025-02-15 08:30] LABS: Alanine Aminotransferase 27 IU/L (<50); Albumin 4.3 g/dL (3.5-5.0); Albumin Globulin Ratio 1.2 (1.0-2.8); Alkaline Phosphatase 69 U/L (38-126); Blood Urea Nitrogen 7 mg/dL (9-20); Calcium 8.5 mg/dL (8.4-10.2); Carbon Dioxide 23 mmol/L (22-32); Chloride 108 mmol/L (98-107); Estimated Glomerular Filt Rate > 60 mL/min (>60); Globulin 3.6 g/dL (1.7-4.1); Glucose 89 mg/dL (70-99); HEMOLYSIS < 15 (0-50); Potassium 3.7 mmol/L (3.4-5.1); Sodium 141 mmol/L (137-145); Total Protein 7.9 g/dL (6.3-8.2)
[2025-02-15 08:38] LABS: Reticulocyte Count, Percent 8.4 % (0.9-2.6)
[2025-02-15 09:14] LABS: Anisocytosis 2+; Sickle Cells 2+; Target Cells 1+
[2025-02-15 09:15] LABS: Macrocytosis 1+; Polychromasia 1+
[2025-02-15 09:16] LABS: Acanthocytes 1+
[2025-02-15 09:36] LABS: Influenza A - CEPHEID Flu A NEGATIVE (NEGATIVE); Influenza B - CEPHEID Flu B NEGATIVE (NEGATIVE)
[2025-02-15] MEDS: HYDROMORPHONE 1 MG INJ IM (09:37)
[2025-02-15 09:48] LABS: COVID-19 CEPHEID 4-PLEX PCR Negative (Negative)
== END 2025-02-15 11:43 | disposition home or self-care (01) ==
PROVIDERS: Emergency Provider Family Medicine; PCP Nurse Practitioner Family; Referring Provider Nurse Practitioner Family
DX: D57.00 Hb-SS disease with crisis, unspecified (principal)
CPT/HCPCS: 36415; 80053; 85025; 85045; 87637; 96372; 99283; J1171

== ENCOUNTER 2025-02-22 21:11 | Emergency (ER) | payer OTHER, SELFPAY ==
[2025-01-15 11:49] VITALS: BMI 19.5
[2025-02-22 21:15] VITALS: BP 113/57; PULSE 87; RESP 17; TEMP 36.5; O2SAT 97; BMI 18.6
--- NOTE | 2025-02-22 21:33 | ED_ITS ---
HPI - Extremity Problem General Chief complaint: Extremity Problem,Nontraumatic Stated complaint: poss sickle cell? leg pain Time Seen by Provider: 02/22/25 21:13 Source: patient Mode of arrival: Ambulatory History of Present Illness HPI Narrative: Patient is a 24-year-old male who is well known to us here in the emergency department with a history of sickle cell, coming in for exacerbation of his sickle cell pain, states it is to his right hip. Has any new symptoms denies any numbness weakness tingling to that right lower extremity denies any trauma or falls. He denies any other symptoms at this time. Related Data Home Medications ?Medication ?Instructions ?Recorded ?Confirmed albuterol sulfate 90 mcg/actuation 2 puff inhalation Q 6H PRN wheezing 11/18/24 01/15/25 aerosol inhaler Previous Rx's ?Medication ?Instructions ?Recorded ondansetron 4 mg disintegrating 4 mg PO Q8H PRN nausea and 10/02/24 tablet vomiting #20 tabs cholecalciferol (vitamin D3) 10 20 mcg (2 x 10 mcg (40 0 unit)) PO 10/25/24 mcg (400 unit) capsule DAILY #180 caps doxycycline hyclate 100 mg tablet 100 mg PO BID #20 ta bs 11/24/24 naloxone 4 mg/actuation nasal spray 1 spray intranasal PRN PRN Opioid 11/24/24 Overdose #4 ea duloxetine 60 mg capsule,delayed 60 mg PO DAILY #90 ca ps 12/04/24 release hydroxyurea (sickle cell) 400 mg 400 mg PO DAILY #90 c aps 01/12/25 capsule hydrocodone 5 mg-acetaminophen 325 1 tab PO BEDTIME NE N pain #15 tabs 01/16/25 mg tablet hydrocodone 5 mg-acetaminophen 325 1 tab PO Q4-6H PRN pain #20 tabs 02/02/25 mg tablet Allergies Allergy/AdvReac Type Severity Reaction Status Date / Time No Known Drug Allergies Allergy Verified 02/15/25 07:30 Review of Systems Review of Systems Narrative: General: Denies fever, chills, weight loss HEENT: Denies headache, eye drainage, eye irritation, head trauma, sore throat, voice change Cardiovascular: Denies any chest pain, palpitations, tachycardia Respiratory: Denies any shortness of breath, cough, wheeze, stridor GI/: Denies any abdominal pain, nausea, vomiting, diarrhea, bright red blood per rectum, melanotic stools, urinary frequency, urinary retention, dysuria, hematuria MSK: Positive right hip pain Skin: Denies any rashes, lesions, discoloration Neuro: Denies any headache, lightheadedness, dizziness, fainting, weakness Psych: Denies SI/HI Patient History Medical History Vitamin D deficiency PTSD (post-traumatic stress disorder) Depression Anxiety Seizure Anemia Avascular necrosis of bone Contracture, left elbow Contracture, left hand CVA (cerebral vascular accident) Sickle cell anemia Surgical History History of shoulder surgery 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 Family History Father Cancer Sickle cell trait Lupus Mother Sickle cell trait Brother Sickle cell trait Social History household members: significant other alcohol intake: current tobacco type: vaping alcohol intake frequency: holidays/special occasions only Exam Narrative Exam Narrative: General: Cooperative, comfortable, well-developed, not in acute distress HEENT: Normocephalic, atraumatic, PERRLA, normal sclera, eyelids normal, Neck: Active full range of motion, atraumatic Chest: Normal to inspection, negative crepitus, no overlying erythema ecchymosis Respiratory: Normal respiratory effort, not in acute respiratory distress, clear to auscultation bilaterally negative cough, wheeze, tachypnea, rhonchi, rales Cardiology: Regular rate rhythm negative gallop, murmur, rubs GI/: Normal to inspection, soft, nonrigid, no tenderness to palpation, exam deferred MSK: patient with baseline left upper extremity deficits from history of vaso- occlusive crisis in the past, bilateral lower extremities neurovascularly intact able to stand bear weight ambulate unassisted here in the emergency department Skin: No rashes lesions noted Neuro: Alert awake oriented x3, m, cranial nerves intact, able to answer all questions appropriately follows commands appropriately Psych: Cooperative, negative suicidal or homicidal ideations Initial Vital Signs Initial Vital Signs: Vital Signs Temperature 97.7 F 02/22/25 21:15 Pulse Rate 87 02/22/25 21:15 Respiratory Rate 17 02/22/25 21:15 Blood Pressure 113/57 L 02/22/25 21:15 Pulse Oximetry 97 02/22/25 21:15 Oxygen Delivery Method Room Air 02/22/25 21:15 Course Orders Ordered: ED Orders 02/22/25 21:30 CBC Auto Diff [Complete Blood Count AUTO DIFF] Stat CMP [Comprehensive Metabolic Panel] Stat RETIC [Reticulocyte Count, Percent] Stat Hydromorphone HCl (Hydromorphone 1 Mg Inj) 1 mg IV NOW [facility] Stop: 02/24/25 21:16 Last Admin: 02/22/25 21:55 Dose: 1 mg Documented By: ALEX Discontinued Medications Hydromorphone HCl (Hydromorphone 1 Mg Inj) 1 mg IV Q1HR [facility] Stop: 02/22/25 23:01 Last Admin: 02/22/25 23:37 Dose: 1 mg Documented By: Admin: 02/22/25 22:55 Dose: 1 mg Documented By: LOAN Vital Signs Vital signs: Vital Signs - 8 hr 02/22/25 21:15 Temperature 97.7 F Pulse Rate 87 Respiratory Rate 17 Blood Pressure 113/57 L Pulse Oximetry 97 Oxygen Delivery Method Room Air MDM - Extremity (Nontraumatic) Lab Data 02/22/25 21:30 02/22/25 21:30 Labs: Lab Results 02/22/25 Range/Units 21:30 WBC 10.1 (4.5-11.0) X10^3/uL RBC 3.37 L (4.5-5.9) X10^6/uL Hgb 8.5 L (13.5-17.5) g/dL Hct 24.0 L (41-53) % MCV 71.3 L (80-100) fL MCH 25.2 L (26-34) PG MCHC 35.3 (30-36) % RDW 18.5 H (11.6-14.8) % Plt Count 219 (150-400) X10^3/uL Neut % (Auto) 27.2 L (50-75) % Lymph % (Auto) 64.2 H (25-40) % [place] % (Auto) 6.4 (3-14) % Eos % (Auto) 1.1 L (2-4) % Baso % (Auto) 1.1 (0-2) % Neut # (Auto) 2700 (5461-1798) /uL Lymph # (Auto) 6500 H (0672-4619) /uL [place] # (Auto) 600 (0-900) /uL Eos # (Auto) 100 (0-450) /uL Baso # (Auto) 100 (0-100) /uL Percent Retic 6.1 H (0.9-2.6) % Sodium 136 L (137-145) mmol/L Potassium 3.5 (3.4-5.1) mmol/L Chloride 105 (98-107) mmol/L Carbon Dioxide 24 (22-32) mmol/L BUN 8 L (9-20) mg/dL Creatinine 0.75 (0.66-1.25) mg/dL Estimated GFR > 60 (>60) mL/min BUN/Creatinine Ratio 10.7 (6-22) Glucose 108 H (70-99) mg/dL Calcium 8.1 L (8.4-10.2) mg/dL Total Bilirubin 1.8 H (0.2-1.3) mg/dL AST 50 (17-59) IU/L ALT 25 (<50) IU/L Alkaline Phosphatase 62 (38-126) U/L Total Protein 7.7 (6.3-8.2) g/dL Albumin 4.3 (3.5-5.0) g/dL Globulin 3.4 (1.7-4.1) g/dL Albumin/Globulin Ratio 1.3 (1.0-2.8) MDM Narrative Medical decision making narrative: 24-year-old male history of sickle cell disease prior splenectomy childhood stroke with residual left-sided deficit presenting for his typical sickle cell pain today it is to his right hip, no new symptoms neurovascularly intact, patient's lab work had baseline, patient did receive 3 doses of Dilaudid. He did have resolution of his symptoms here, he was given strict return precautions verbalized understanding of this and agrees to being discharged home with outpatient follow up Discharge Plan Departure Patient Disposition: Home Clinical Impression: Sickle cell disease with crisis Activity Restrictions/Additional Instructions: Please follow up with your primary care doctor Please read the discharge instructions sheet carefully and bring all papers to all doctor follow-up visits, as it may contain information that your doctor may want to see. Disease processes change and evolve, if your symptoms worsen or if you develop any new symptoms that are concerning to you please return for evaluation. Your evaluation today does not show any evidence of any life- threatening/serious illnesses requiring admission to the hospital or surgery. Please follow-up with your doctor for re-evaluation in approximately 1 day. Seek immediate medical attention for any worrisome symptoms. *If you do not have a primary care provider please contact the [facility] Resource line at [phone]. They will ask some questions about your medical history and help get you set up with a doctor in the community. Prescriptions: No Action cholecalciferol (vitamin D3) 10 mcg (400 unit) capsule 20 mcg PO DAILY Qty: 180 0RF Rx Instructions: Start two capsules daily after 6 weeks of 1250mcg weekly dosing. duloxetine 60 mg capsule,delayed release(DR/EC) 60 mg PO DAILY Qty: 90 2RF ondansetron 4 mg tablet,disintegrating 4 mg PO Q8H PRN (Reason: nausea and vomiting) Qty: 20 0RF albuterol sulfate 90 mcg/actuation HFA aerosol inhaler 2 puff inhalation Q6H PRN (Reason: wheezing) doxycycline hyclate 100 mg Tablet 100 mg PO BID Qty: 20 0RF naloxone 4 mg/actuation spray,non-aerosol 1 spray intranasal PRN PRN (Reason: Opioid Overdose) Qty: 4 0RF hydroxyurea (sickle cell) 400 mg capsule 400 mg PO DAILY Qty: 90 3RF hydrocodone-acetaminophen 5-325 mg tablet 1 tab PO BEDTIME PRN (Reason: pain) Qty: 15 0RF hydrocodone-acetaminophen 5-325 mg tablet 1 tab PO Q4-6H PRN (Reason: pain) Qty: 20 0RF Referrals: Jen Albarran, [facility] [Primary Care Provider, Family Practice] Stand Alone Forms: Patient Portal/API
--- NOTE | 2025-02-22 21:40 | PC.NURSE ---
c/o right hip pain r/t crisis
[2025-02-22 21:47] LABS: Add Manual Diff / Slide Review NO; Hematocrit 24.0 % (41-53); Hemoglobin 8.5 g/dL (13.5-17.5); Lymphocytes Absolute Auto 6500 /uL (1100-4500); Mean Corpuscular HGB Conc 35.3 % (30-36); Mean Corpuscular Hemoglobin 25.2 PG (26-34); Mean Corpuscular Volume 71.3 fL (80-100); Platelet Count 219 X10^3/uL (150-400)
[2025-02-22] MEDS: HYDROMORPHONE 1 MG INJ IV ×3 (21:55→23:37)
[2025-02-22 21:58] LABS: Alanine Aminotransferase 25 IU/L (<50); Albumin 4.3 g/dL (3.5-5.0); Albumin Globulin Ratio 1.3 (1.0-2.8); Alkaline Phosphatase 62 U/L (38-126); Blood Urea Nitrogen 8 mg/dL (9-20); Calcium 8.1 mg/dL (8.4-10.2); Carbon Dioxide 24 mmol/L (22-32); Chloride 105 mmol/L (98-107); Estimated Glomerular Filt Rate > 60 mL/min (>60); Globulin 3.4 g/dL (1.7-4.1); Glucose 108 mg/dL (70-99); HEMOLYSIS < 15 (0-50); Potassium 3.5 mmol/L (3.4-5.1); Sodium 136 mmol/L (137-145); Total Protein 7.7 g/dL (6.3-8.2)
[2025-02-22 21:59] LABS: Reticulocyte Count, Percent 6.1 % (0.9-2.6)
[2025-02-23 00:18] VITALS: BP 118/76; PULSE 72; RESP 16; O2SAT 100
== END 2025-02-23 00:18 | disposition home or self-care (01) ==
PROVIDERS: Emergency Provider Student in an Organized Health Care Education/Training Program; PCP Nurse Practitioner Family
DX: D57.00 Hb-SS disease with crisis, unspecified (principal)
CPT/HCPCS: 36415; 80053; 85025; 85045; 96374; 96376; 99284; J1171

== ENCOUNTER 2025-02-25 10:39 | Emergency (ER) | payer OTHER, SELFPAY ==
[2025-01-15 11:49] VITALS: BMI 19.5
[2025-02-25 11:35] VITALS: BP 102/54; PULSE 78; RESP 18; TEMP 36.9; O2SAT 97; BMI 18.6
--- NOTE | 2025-02-25 13:48 | DI.RAD.S_ITS ---
PROCEDURE: XR CHEST 1V INDICATIONS: chest pain TECHNIQUE: One view of the chest was acquired. COMPARISON: [facility], CR, XR CHEST 1V, 01/15/2025, 2:19. [facility], CR, XR CHEST 1V, 11/02/2024, 12:34. FINDINGS: Surgical changes and devices: None. Lungs and pleura: Suspected medial right mid to lower lung zone opacities. Left lung is clear. No pneumothorax or pleural effusion. Mediastinum: Mediastinal contours appear normal. Heart size is normal. Bones and chest wall: No suspicious bony lesions. Overlying soft tissues appear unremarkable. IMPRESSION: Mild right lung opacities are suspicious for pneumonia. Approved by: Mauricio Davila M.D. on 02/25/2025 at 15:04
[2025-02-25] MEDS: HYDROMORPHONE 1 MG INJ IV ×3 (17:04→21:10)
[2025-02-25] MEDS: ONDANSETRON 4 MG/2 ML INJ IV (17:07)
--- NOTE | 2025-02-25 17:10 | EKG_ITS ---
[address] [address] Test Date: 2025-02-25 Pat Name: Lucretia Keller Department: Room: Gender: Male [employer]: SCOTT : 2000 Requested By: Order Number: [id number] Reading MD: Arslan Belcher Measurements Intervals [place] Rate: 72 P: 42 OK: 274 QRS: 18 QRSD: 94 T: 25 QT: 438 QTc: 479 Interpretive Statements Sinus rhythm with 1st degree AV block Electronically Signed On 02-27-2025 13:35:26 PDT by Arslan Belcher
[2025-02-25 17:12] VITALS: BP 107/62; PULSE 54; RESP 16; O2SAT 99
[2025-02-25 17:12] LABS: Hematocrit 29.1 % (41-53); Hemoglobin 9.9 g/dL (13.5-17.5); Mean Corpuscular HGB Conc 33.9 % (30-36); Mean Corpuscular Hemoglobin 24.2 PG (26-34); Mean Corpuscular Volume 71.5 fL (80-100); Platelet Count 295 X10^3/uL (150-400)
[2025-02-25 17:14] LABS: Add Manual Diff / Slide Review YES
[2025-02-25 17:16] LABS: Reticulocyte Count, Percent 5.9 % (0.9-2.6)
[2025-02-25 17:18] LABS: INR 1.3 (0.9-1.3); Prothrombin Time 15.0 SECONDS (9.4-12.5)
[2025-02-25 17:20] LABS: PTT Partial Thromboplastin Tim 26 SECONDS (25.1-36.5)
[2025-02-25 17:21] LABS: Alanine Aminotransferase 31 IU/L (<50); Albumin 5.0 g/dL (3.5-5.0); Albumin Globulin Ratio 1.2 (1.0-2.8); Alkaline Phosphatase 83 U/L (38-126); Blood Urea Nitrogen 4 mg/dL (9-20); Calcium 8.9 mg/dL (8.4-10.2); Carbon Dioxide 21 mmol/L (22-32); Chloride 106 mmol/L (98-107); Estimated Glomerular Filt Rate > 60 mL/min (>60); Globulin 4.2 g/dL (1.7-4.1); Glucose 87 mg/dL (70-99); HEMOLYSIS < 15 (0-50); Potassium 3.8 mmol/L (3.4-5.1); Sodium 138 mmol/L (137-145); Total Protein 9.2 g/dL (6.3-8.2)
[2025-02-25 17:27] LABS: Anisocytosis 3+; Basophils Percent Manual 1.0 % (0-1); Eosinophils Percent Manual 2.0 % (2-4); Lymphocytes Percent Manual 44.0 % (25-45); Monocytes Percent Manual 5.0 % (2-11); Neutrophils Absolute Manual 4992 /uL (3000-5900); Schistocytes 1+; Segmented Neutrophils Percent 48.0 % (38-70); Sickle Cells 1+; Target Cells 1+; Total Cells Counted 100
--- NOTE | 2025-02-25 18:07 | ED_ITS ---
HPI - Extremity Injury (Lower) <Jayden Simons MD - Last Filed: 02/25/25 18:10> General Chief Complaint: Extremity Problem,Nontraumatic Stated Complaint: Sickle cell Flare up, in legs Time Seen by Provider: 02/25/25 13:48 History of Present Illness HPI Narrative: Pleasant 24-year-old woman with a history of sickle cell comes to the ER with bilateral leg pain which is his usual presentation for sickle cell. Apparently, he comes to our ER frequently for these episodes and they usually are self- limited after treatment with fluids and narcotic pain medicine. He denies any shortness of breath pain in his chest headache or any other complaints. He states that this episode feels exactly like his previous episodes with no discernible differences. Related Data Home Medications ?Medication ?Instructions ?Recorded ?Confirmed albuterol sulfate 90 mcg/actuation 2 puff inhalation Q 6H PRN wheezing 11/18/24 01/15/25 aerosol inhaler Previous Rx's ?Medication ?Instructions ?Recorded ondansetron 4 mg disintegrating 4 mg PO Q8H PRN nausea and 10/02/24 tablet vomiting #20 tabs cholecalciferol (vitamin D3) 10 20 mcg (2 x 10 mcg (40 0 unit)) PO 10/25/24 mcg (400 unit) capsule DAILY #180 caps doxycycline hyclate 100 mg tablet 100 mg PO BID #20 ta bs 11/24/24 naloxone 4 mg/actuation nasal spray 1 spray intranasal PRN PRN Opioid 11/24/24 Overdose #4 ea duloxetine 60 mg capsule,delayed 60 mg PO DAILY #90 ca ps 12/04/24 release hydroxyurea (sickle cell) 400 mg 400 mg PO DAILY #90 c aps 01/12/25 capsule hydrocodone 5 mg-acetaminophen 325 1 tab PO BEDTIME UT N pain #15 tabs /05/25 mg tablet hydrocodone 5 mg-acetaminophen 325 1 tab PO Q4-6H PRN pain #20 tabs 02/02/25 mg tablet Allergies Allergy/AdvReac Type Severity Reaction Status Date / Time No Known Drug Allergies Allergy Verified 02/25/25 11:36 Patient History <Jayden Simons MD - Last Filed: 02/25/25 18:10> Medical History Vitamin D deficiency PTSD (post-traumatic stress disorder) Depression Anxiety Seizure Anemia Avascular necrosis of bone Contracture, left elbow Contracture, left hand CVA (cerebral vascular accident) Sickle cell anemia Surgical History History of shoulder surgery 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 Family History Father Cancer Sickle cell trait Lupus Mother Sickle cell trait Brother Sickle cell trait Social History household members: significant other alcohol intake: current tobacco type: vaping alcohol intake frequency: holidays/special occasions only Exam <Jayden Simons MD - Last Filed: 02/25/25 18:10> Initial Vital Signs Initial Vital Signs: Vital Signs Temperature 98.5 F 02/25/25 11:35 Pulse Rate 78 02/25/25 11:35 Respiratory Rate 18 02/25/25 11:35 Blood Pressure 102/54 L 02/25/25 11:35 Pulse Oximetry 97 02/25/25 11:35 Oxygen Delivery Method Room Air 02/25/25 11:35 Const General: comfortable and No acute distress [facility] Head: normal to inspection, normocephalic and atraumatic Face and sinus: normal facial exam Mouth: oral mucosae normal Eyes General: Yes appearance normal, both eyes and all related structures Neck Neck: normal visual inspection, supple and No tender Resp Effort & Inspection: normal respiratory effort and no respiratory distress Auscultation: clear to auscultation bilaterally Cardio Rate: regular rate Rhythm: regular rhythm Heart Sounds: S1 normal and S2 normal GI Inspection: normal to inspection Palpation: soft and No tender Auscultation: normal bowel sounds Back/Spine/Pelvis Back: No CVA tenderness Neuro General: patient alert, patient awake and patient oriented x3 Cranial Nerves: CN's II-XI intact bilaterally <Kwan Jimenes DO - Last Filed: 02/25/25 21:49> Initial Vital Signs Initial Vital Signs: Vital Signs Temperature 98.5 F 02/25/25 11:35 Pulse Rate 78 02/25/25 11:35 Respiratory Rate 18 02/25/25 11:35 Blood Pressure 102/54 L 02/25/25 11:35 Pulse Oximetry 97 02/25/25 11:35 Oxygen Delivery Method Room Air 02/25/25 11:35 Course <Jayden Simons MD - Last Filed: 02/25/25 18:10> Orders Ordered: ED Orders 02/25/25 13:48 XR chest 1V Stat EKG-12 Lead Stat 02/25/25 17:00 Bilirubin Direct Stat Complete Blood Count AUTO DIFF Stat Comprehensive Metabolic Panel Stat PTT Partial Thromboplastin [place] Stat Prothrombin Time INR Stat RETIC [Reticulocyte Count, Percent] Stat 02/25/25 19:58 Urinalysis and Microscopic Stat Urine Drug Screen, Rapid Stat Hydromorphone HCl (Hydromorphone 1 Mg Inj) 1 mg IV Q1HR PRN PRN Reason: severe pain Last Admin: 02/25/25 18:46 Dose: 1 mg Documented By: LILIAM Discontinued Medications Hydromorphone HCl (Hydromorphone 1 Mg Inj) 1 mg IM NOW ONE Stop: 02/25/25 13:49 Last Admin: 02/25/25 17:03 Dose: Not Given Documented By: LILIAM Hydromorphone HCl (Hydromorphone 1 Mg Inj) 1 mg IV NOW ONE Stop: 02/25/25 17:04 Last Admin: 02/25/25 17:04 Dose: 1 mg Documented By: LILIAM Hydromorphone HCl (Hydromorphone 1 Mg Inj) 1 mg IV NOW ONE Stop: 02/25/25 21:08 Last Admin: 02/25/25 21:10 Dose: 1 mg Documented By: Sodium Chloride (Normal Saline 0.9%) 1,000 mls @ 1,000 mls/hr IV BOLUS ONE Stop: 02/25/25 18:55 Last Infusion: 02/25/25 19:24 Dose: Infused Documented By: Admin: 02/25/25 18:24 Dose: 1,000 mls/hr Documented By: LILIAM Ondansetron HCl (Ondansetron 4 Mg Odt) 4 mg SL NOW ONE Stop: 02/25/25 13:49 Last Admin: 02/25/25 17:03 Dose: Not Given Documented By: LILIAM Ondansetron HCl (Ondansetron 4 Mg/2 Ml Inj) 4 mg IV NOW ONE Stop: 02/25/25 17:04 Last Admin: 02/25/25 17:07 Dose: 4 mg Documented By: LILIAM Vital Signs Vital signs: Vital Signs - 8 hr 02/25/25 17:12 Pulse Rate 54 L Respiratory Rate 16 Blood Pressure 107/62 Pulse Oximetry 99 <Kwan Jimenes, - Last Filed: 02/25/25 21:49> Orders Ordered: ED Orders 02/25/25 13:48 XR chest 1V Stat EKG-12 Lead Stat 02/25/25 17:00 Bilirubin Direct Stat Complete Blood Count AUTO DIFF Stat Comprehensive Metabolic Panel Stat PTT Partial Thromboplastin More[place] Stat Prothrombin Time INR Stat RETIC [Reticulocyte Count, Percent] Stat 02/25/25 19:58 Urinalysis and Microscopic Stat Urine Drug Screen, Rapid Stat Hydromorphone HCl (Hydromorphone 1 Mg Inj) 1 mg IV Q1HR PRN PRN Reason: severe pain Last Admin: 02/25/25 18:46 Dose: 1 mg Documented By: LILIAM Discontinued Medications Hydromorphone HCl (Hydromorphone 1 Mg Inj) 1 mg IM NOW ONE Stop: 02/25/25 13:49 Last Admin: 02/25/25 17:03 Dose: Not Given Documented By: LILIAM Hydromorphone HCl (Hydromorphone 1 Mg Inj) 1 mg IV NOW ONE Stop: 02/25/25 17:04 Last Admin: 02/25/25 17:04 Dose: 1 mg Documented By: LILIAM Hydromorphone HCl (Hydromorphone 1 Mg Inj) 1 mg IV NOW ONE Stop: 02/25/25 21:08 Last Admin: 02/25/25 21:10 Dose: 1 mg Documented By: Sodium Chloride (Normal Saline 0.9%) 1,000 mls @ 1,000 mls/hr IV BOLUS ONE Stop: 02/25/25 18:55 Last Infusion: 02/25/25 19:24 Dose: Infused Documented By: Admin: 02/25/25 18:24 Dose: 1,000 mls/hr Documented By: LILIAM Ondansetron HCl (Ondansetron 4 Mg Odt) 4 mg SL NOW ONE Stop: 02/25/25 13:49 Last Admin: 02/25/25 17:03 Dose: Not Given Documented By: LILIAM Ondansetron HCl (Ondansetron 4 Mg/2 Ml Inj) 4 mg IV NOW ONE Stop: 02/25/25 17:04 Last Admin: 02/25/25 17:07 Dose: 4 mg Documented By: LILIAM Vital Signs Vital signs: Vital Signs - 8 hr 02/25/25 17:12 Pulse Rate 54 L Respiratory Rate 16 Blood Pressure 107/62 Pulse Oximetry 99 MDM - Extremity Injury (Lower) <Jayden Simons MD - Last Filed: 02/25/25 18:10> Lab Data 02/25/25 17:00 02/25/25 17:00 Labs: Lab Results 02/25/25 02/25/25 02/25/25 Range/Units 17:00 19:58 19:58 WBC 10.4 (4.5-11.0) X10^3/uL RBC 4.07 L (4.5-5.9) X10^6/uL Hgb 9.9 L (13.5-17.5) g/dL Hct 29.1 L (41-53) % MCV 71.5 L (80-100) fL MCH 24.2 L (26-34) PG MCHC 33.9 (30-36) % RDW 19.0 H (11.6-14.8) % Plt Count 295 (150-400) X10^3/uL Neut % (Auto) Not Reportable Lymph % (Auto) Not Reportable [place] % (Auto) Not Reportable Eos % (Auto) Not Reportable Baso % (Auto) Not Reportable Lymph # (Auto) Not Reportable [place] # (Auto) Not Reportable Baso # (Auto) Not Reportable Total Counted 100 Seg Neutrophils % 48.0 (38-70) % Lymphocytes % (Manual) 44.0 (25-45) % Monocytes % (Manual) 5.0 (2-11) % Eosinophils % (Manual) 2.0 (2-4) % Basophils % (Manual) 1.0 (0-1) % Neutrophils # (Manual) 4992 (0816-3912) /uL RBC Morphology See below Anisocytosis 3+ H Sickle Cells 1+ H Target Cells 1+ H Schistocytes 1+ H Percent Retic 5.9 H (0.9-2.6) % PT 15.0 H (9.4-12.5) SECONDS INR 1.3 (0.9-1.3) APTT 26 (25.1-36.5) SECONDS Sodium 138 (137-145) mmol/L Potassium 3.8 (3.4-5.1) mmol/L Chloride 106 (98-107) mmol/L Carbon Dioxide 21 L (22-32) mmol/L BUN 4 L (9-20) mg/dL Creatinine 0.65 L (0.66-1.25) mg/dL Estimated GFR > 60 (>60) mL/min BUN/Creatinine Ratio 6.2 (6-22) Glucose 87 (70-99) mg/dL Calcium 8.9 (8.4-10.2) mg/dL Total Bilirubin 3.0 H (0.2-1.3) mg/dL Direct Bilirubin 0.5 H (0.0-0.4) mg/dL AST 60 H (17-59) IU/L ALT 31 (<50) IU/L Alkaline Phosphatase 83 (38-126) U/L Total Protein 9.2 H (6.3-8.2) g/dL Albumin 5.0 (3.5-5.0) g/dL Globulin 4.2 H (1.7-4.1) g/dL Albumin/Globulin Ratio 1.2 (1.0-2.8) Urine Color Yellow Urine Appearance Clear Urine pH 6.5 Normal (4.5-8.0) Ur Specific [place] 1.015 (1.000-1.035) Urine Protein Negative (Negative) Urine Glucose (UA) Negative (Negative) g/dL Urine Ketones Negative (NEGATIVE) Urine Occult Blood Trace-intact (Negative) Urine Nitrate Negative (Negative) Urine Bilirubin Negative (NEGATIVE) Urine Urobilinogen 0.2 (0.2) E.U./dL Ur Leukocyte Esterase Negative (NEGATIVE) Urine RBC 0-1/hpf (0-5/HPF) Urine WBC None seen (0-5/HPF) Ur Squamous Epith Cells 0-1 /hpf (0-5/HPF) Urine Bacteria None seen (None) Ur Culture Indicated? Cult not indicated Vol Urine Centrifuged 10ml (spun) U Opiates 300ng/mL cut Negative (Negative) Ur Oxycodone Screen Negative (Negative) Urine Methadone Screen Negative (Negative) Ur Barbiturates Screen Negative (Negative) U Tricyclic Antidepress Negative (Negative) Ur Phencyclidine Scrn Negative (Negative) Ur Amphetamines Screen Negative (Negative) U Methamphetamines Scrn Negative (Negative) Ur MDMA Scrn (Ecstasy) Negative (Negative) U Benzodiazepines Scrn Negative (Negative) Urine Cocaine Screen Negative (Negative) U Marijuana (THC) Screen Positive H (Negative) Urine Specific [place] Normal (Normal) Ur Creatinine Normal (Normal) ECG Data Interpretation: Sinus rhythm with first-degree AV block. Rate 72. <Kwan NoniMargueritePiliMarguerite Jimenes, DO - Last Filed: 02/25/25 21:49> Lab Data Labs: Lab Results 02/25/25 02/25/25 02/25/25 Range/Units 17:00 19:58 19:58 WBC 10.4 (4.5-11.0) X10^3/uL RBC 4.07 L (4.5-5.9) X10^6/uL Hgb 9.9 L (13.5-17.5) g/dL Hct 29.1 L (41-53) % MCV 71.5 L (80-100) fL MCH 24.2 L (26-34) PG MCHC 33.9 (30-36) % RDW 19.0 H (11.6-14.8) % Plt Count 295 (150-400) X10^3/uL Neut % (Auto) Not Reportable Lymph % (Auto) Not Reportable [place] % (Auto) Not Reportable Eos % (Auto) Not Reportable Baso % (Auto) Not Reportable Lymph # (Auto) Not Reportable [place] # (Auto) Not Reportable Baso # (Auto) Not Reportable Total Counted 100 Seg Neutrophils % 48.0 (38-70) % Lymphocytes % (Manual) 44.0 (25-45) % Monocytes % (Manual) 5.0 (2-11) % Eosinophils % (Manual) 2.0 (2-4) % Basophils % (Manual) 1.0 (0-1) % Neutrophils # (Manual) 4992 (7135-7065) /uL RBC Morphology See below Anisocytosis 3+ H Sickle Cells 1+ H Target Cells 1+ H Schistocytes 1+ H Percent Retic 5.9 H (0.9-2.6) % PT 15.0 H (9.4-12.5) SECONDS INR 1.3 (0.9-1.3) APTT 26 (25.1-36.5) SECONDS Sodium 138 (137-145) mmol/L Potassium 3.8 (3.4-5.1) mmol/L Chloride 106 (98-107) mmol/L Carbon Dioxide 21 L (22-32) mmol/L BUN 4 L (9-20) mg/dL Creatinine 0.65 L (0.66-1.25) mg/dL Estimated GFR > 60 (>60) mL/min BUN/Creatinine Ratio 6.2 (6-22) Glucose 87 (70-99) mg/dL Calcium 8.9 (8.4-10.2) mg/dL Total Bilirubin 3.0 H (0.2-1.3) mg/dL Direct Bilirubin 0.5 H (0.0-0.4) mg/dL AST 60 H (17-59) IU/L ALT 31 (<50) IU/L Alkaline Phosphatase 83 (38-126) U/L Total Protein 9.2 H (6.3-8.2) g/dL Albumin 5.0 (3.5-5.0) g/dL Globulin 4.2 H (1.7-4.1) g/dL Albumin/Globulin Ratio 1.2 (1.0-2.8) Urine Color Yellow Urine Appearance Clear Urine pH 6.5 Normal (4.5-8.0) Ur Specific [place] 1.015 (1.000-1.035) Urine Protein Negative (Negative) Urine Glucose (UA) Negative (Negative) g/dL Urine Ketones Negative (NEGATIVE) Urine Occult Blood Trace-intact (Negative) Urine Nitrate Negative (Negative) Urine Bilirubin Negative (NEGATIVE) Urine Urobilinogen 0.2 (0.2) E.U./dL Ur Leukocyte Esterase Negative (NEGATIVE) Urine RBC 0-1/hpf (0-5/HPF) Urine WBC None seen (0-5/HPF) Ur Squamous Epith Cells 0-1 /hpf (0-5/HPF) Urine Bacteria None seen (None) Ur Culture Indicated? Cult not indicated Vol Urine Centrifuged 10ml (spun) U Opiates 300ng/mL cut Negative (Negative) Ur Oxycodone Screen Negative (Negative) Urine Methadone Screen Negative (Negative) Ur Barbiturates Screen Negative (Negative) U Tricyclic Antidepress Negative (Negative) Ur Phencyclidine Scrn Negative (Negative) Ur Amphetamines Screen Negative (Negative) U Methamphetamines Scrn Negative (Negative) Ur MDMA Scrn (Ecstasy) Negative (Negative) U Benzodiazepines Scrn Negative (Negative) Urine Cocaine Screen Negative (Negative) U Marijuana (THC) Screen Positive H (Negative) Urine Specific [place] Normal (Normal) Ur Creatinine Normal (Normal) MDM Narrative Medical decision making narrative: Vital signs, nurse triage note, medication list, previous ER visits, and all imaging studies reviewed. Patient given fluids and Dilaudid here now pain-free. Hemoglobin 9.9 RDW 19 % retic count today is 5.9 T bili 3.0 bili 0.5. DC home to follow up hematology referral. Discharge Plan Departure Patient Disposition: Home Clinical Impression: Sickle cell disease with crisis Activity Restrictions/Additional Instructions: Return with new or worsening symptoms. Please follow up on her hematology referral. Prescriptions: No Action cholecalciferol (vitamin D3) 10 mcg (400 unit) capsule 20 mcg PO DAILY Qty: 180 0RF Rx Instructions: Start two capsules daily after 6 weeks of 1250mcg weekly dosing. duloxetine 60 mg capsule,delayed release(DR/EC) 60 mg PO DAILY Qty: 90 2RF ondansetron 4 mg tablet,disintegrating 4 mg PO Q8H PRN (Reason: nausea and vomiting) Qty: 20 0RF albuterol sulfate 90 mcg/actuation HFA aerosol inhaler 2 puff inhalation Q6H PRN (Reason: wheezing) doxycycline hyclate 100 mg Tablet 100 mg PO BID Qty: 20 0RF naloxone 4 mg/actuation spray,non-aerosol 1 spray intranasal PRN PRN (Reason: Opioid Overdose) Qty: 4 0RF hydroxyurea (sickle cell) 400 mg capsule 400 mg PO DAILY Qty: 90 3RF hydrocodone-acetaminophen 5-325 mg tablet 1 tab PO BEDTIME PRN (Reason: pain) Qty: 15 0RF hydrocodone-acetaminophen 5-325 mg tablet 1 tab PO Q4-6H PRN (Reason: pain) Qty: 20 0RF Referrals: Jen Albarran FNP-BC [Primary Care Provider, Family Practice] Stand Alone Forms: Patient Portal/API ED Sign-out <Jayden Simons MD - Last Filed: 02/25/25 18:10> Sign Out Provider Sign Out Attestation: AMBER: Patient seen and examined by myself once he was roomed. This episode was exactly like his previous episodes. He was given his usual treatment that helps him of IV fluids and narcotic pain medicine which was Dilaudid. He was slowly improving at the time I signed out this patient to Dr. Jimenes, but not ready for discharge. I signed the patient out to Dr. Jimenes at 6:00 p.m..
[2025-02-25] MEDS: SODIUM CHLORIDE 0.9% 1,000 ML 1000 ML IV (18:24)
--- NOTE | 2025-02-25 19:24 | PC.NURSE ---
Pt reports he has had 2 days of leg pain. Pt states this feels similar to his previous sickle cell leg pain. Pt states his legs feel crampy. No injury. Pt able to walk with his normal gait.
[2025-02-25 20:08] LABS: Appearance Urine UA CLEAR; Bilirubin Urine UA NEGATIVE (NEGATIVE); Color Urine UA YELLOW; Glucose Urine UA NEGATIVE (Negative); Ketones Urine UA NEGATIVE (NEGATIVE); Leukocyte Esterase Urine UA NEGATIVE (NEGATIVE); Nitrite Urine UA NEGATIVE (Negative); Occult Blood Urine UA TRACE-INTACT (Negative); Protein Urine UA NEGATIVE (Negative); Specific Gravity Urine UA 1.015 (1.000-1.035); Urobilinogen Urine UA 0.2 E.U./dL (0.2); pH Urine UA 6.5 (4.5-8.0)
[2025-02-25 20:16] LABS: Ur Creatinine Normal (Normal); Ur Specific Gravity Normal (Normal); Urine MDMA Negative (Negative); Urine Methamphetamines Negative (Negative); Urine THC Positive (Negative); Urine Tricyclic Antidepressant Negative (Negative); Urine pH Normal (Normal)
[2025-02-25 20:18] LABS: Culture Indicated Urine Cult Not Indicated
[2025-02-25 22:01] VITALS: BP 121/79; PULSE 58; RESP 17; O2SAT 97
== END 2025-02-25 22:03 | disposition home or self-care (01) ==
PROVIDERS: Emergency Medicine; Emergency Provider Family Medicine; PCP Nurse Practitioner Family
DX: D57.00 Hb-SS disease with crisis, unspecified (principal)
CPT/HCPCS: 36415; 71045; 80053; 80305; 81001; 82248; 85007; 85025; 85045; 85610; 85730; 93005; 96361; 96374; 96375; 96376; 99284; J1171; J2405

== ENCOUNTER 2025-03-01 06:00 | Emergency (ER) | payer OTHER, SELFPAY ==
[2025-01-15 11:49] VITALS: BMI 19.5
[2025-03-01] VITALS (9 sets, daily range): BP systolic 105–117; BP diastolic 56–74; PULSE 71–97; RESP 16; TEMP 37.4; O2SAT 96–99; BMI 18.6
--- NOTE | 2025-03-01 07:28 | PC.NURSE ---
pt states he woke this am just not feeling well, c/o generalized body aches, with a sore throat, no drooling or muffled voice noted, no coughing, pt did not take anything prior to coming to ed
--- NOTE | 2025-03-01 07:55 | ED_ITS ---
HPI - URI/Sore Throat General Chief Complaint: Upper Respiratory Symptoms Stated Complaint: All Over Pain, Sore Throat Time Seen by Provider: 03/01/25 06:11 Source: patient Mode of arrival: Ambulatory History of Present Illness HPI Narrative: 24-year-old male with a history of sickle cell presents with more pain in the past 2 days. He also is having some sore throat and some chills in the last day. He has a history of a splenectomy. Related Data Home Medications ?Medication ?Instructions ?Recorded ?Confirmed albuterol sulfate 90 mcg/actuation 2 puff inhalation Q 6H PRN wheezing 11/18/24 01/15/25 aerosol inhaler Previous Rx's ?Medication ?Instructions ?Recorded ondansetron 4 mg disintegrating 4 mg PO Q8H PRN nausea and 10/02/24 tablet vomiting #20 tabs cholecalciferol (vitamin D3) 10 20 mcg (2 x 10 mcg (40 0 unit)) PO 10/25/24 mcg (400 unit) capsule DAILY #180 caps doxycycline hyclate 100 mg tablet 100 mg PO BID #20 ta bs 11/24/24 naloxone 4 mg/actuation nasal spray 1 spray intranasal PRN PRN Opioid 11/24/24 Overdose #4 ea duloxetine 60 mg capsule,delayed 60 mg PO DAILY #90 ca ps 12/04/24 release hydroxyurea (sickle cell) 400 mg 400 mg PO DAILY #90 c aps 01/12/25 capsule hydrocodone 5 mg-acetaminophen 325 1 tab PO BEDTIME NV N pain #15 tabs /05/25 mg tablet hydrocodone 5 mg-acetaminophen 325 1 tab PO Q4-6H PRN pain #20 tabs 02/02/25 mg tablet Allergies Allergy/AdvReac Type Severity Reaction Status Date / Time No Known Drug Allergies Allergy Verified 02/25/25 11:36 Review of Systems Review of Systems ROS Unobtainable: All systems reviewed & are unremarkable except as noted in HPI and below Patient History Medical History Vitamin D deficiency PTSD (post-traumatic stress disorder) Depression Anxiety Seizure Anemia Avascular necrosis of bone Contracture, left elbow Contracture, left hand CVA (cerebral vascular accident) Sickle cell anemia Surgical History History of shoulder surgery 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 Family History Father Cancer Sickle cell trait Lupus Mother Sickle cell trait Brother Sickle cell trait Social History household members: significant other alcohol intake: current tobacco type: vaping alcohol intake frequency: holidays/special occasions only Exam Narrative Exam Narrative: General: Patient appears to be in no acute distress, acting appropriately Head: normocephalic, atraumatic, HEENT: Pupils equal round reactive, eyes tracking well, neck supple, no JVD Heart: regular rate and rhythm, no murmurs, rubs, or gallops heard Lungs: clear to auscultation, no adventitious sounds Abdomen: soft , nontender, nondistended, positive bowel sounds Neurological: no focal neurological signs, moving all extremities well, alert and oriented x3, Psych: good judgment ,good insight, mood is normal. Initial Vital Signs Initial Vital Signs: Vital Signs Temperature 99.3 F 03/01/25 06:24 Pulse Rate 97 H 03/01/25 06:24 Respiratory Rate 16 03/01/25 06:24 Blood Pressure 111/56 L 03/01/25 06:24 Pulse Oximetry 96 03/01/25 06:24 Oxygen Delivery Method Room Air 03/01/25 06:24 General: Healthy appearing, in no acute distress. Able to give a complete and coherent history. Well-nourished well-developed HEENT: Moist mucous membranes, normal sclera with reactive pupils, Neck: No JVD, supple Respiratory: Lungs are clear to auscultation, no wheezing no rales no rhonchi. Full and symmetrical air movement Cardiac: Regular rate and rhythm no murmurs no bruits Abdomen: Soft, nontender, no rebound or guarding, no flank pain Skin: Warm and dry, no rashes Neurologic: Grossly neurologically intact with no obvious asymmetries or abnormalities Extremities: No trauma, well perfused Psych: Cooperative, appropriate insight and affect Course Course Course Narrative: Patient had a meeting 2 g of IV Dilaudid total for pain control. His WBC is 19.9, platelets 293, total bilirubin of 3.2, retic % of 7.5 Orders Ordered: ED Orders 03/01/25 07:10 CBC Auto Diff [Complete Blood Count AUTO DIFF] Stat CMP [Comprehensive Metabolic Panel] Stat PT [Prothrombin Time INR] Stat Reticulocyte Count, Percent Stat 03/01/25 08:05 Strep Grp A by PCR Rapid Stat 03/01/25 08:06 Throat Culture Stat Discontinued Medications Hydromorphone HCl (Hydromorphone 1 Mg Inj) 1 mg IV NOW ONE Stop: 03/01/25 07:53 Last Admin: 03/01/25 08:29 Dose: 1 mg Documented By: RB Hydromorphone HCl (Hydromorphone 1 Mg Inj) 1 mg IV NOW ONE Stop: 03/01/25 09:20 Last Admin: 03/01/25 09:50 Dose: 1 mg Sodium Chloride (Normal Saline 0.9%) 1,000 mls @ 1,000 mls/hr IV BOLUS ONE Stop: 03/01/25 08:51 Last Admin: 03/01/25 08:07 Dose: 1,000 mls/hr Documented By: CTS Reevaluation(s) Reevaluation #1: Feeling better after 2 g of IV Dilaudid and a bolus of normal saline. Vital Signs Vital signs: Vital Signs - 8 hr 03/01/25 06:24 03/01/25 07:10 03/01/25 07:11 Temperature 99.3 F Pulse Rate 97 H 81 79 Respiratory Rate 16 Blood Pressure 111/56 L Pulse Oximetry 96 98 98 Oxygen Delivery Method Room Air Room Air 03/01/25 07:11 03/01/25 07:30 03/01/25 07:30 Temperature Pulse Rate 75 Respiratory Rate Blood Pressure 105/59 L 113/61 Pulse Oximetry 98 Oxygen Delivery Method 03/01/25 08:00 03/01/25 08:00 03/01/25 08:30 Temperature Pulse Rate 71 Respiratory Rate Blood Pressure 110/60 117/74 Pulse Oximetry 99 Oxygen Delivery Method 03/01/25 08:30 03/01/25 09:00 03/01/25 09:00 Temperature Pulse Rate 74 78 Respiratory Rate Blood Pressure 107/62 Pulse Oximetry 97 97 Oxygen Delivery Method 03/01/25 09:30 03/01/25 09:30 03/01/25 10:00 Temperature Pulse Rate 75 Respiratory Rate Blood Pressure 105/57 L 115/70 Pulse Oximetry 97 Oxygen Delivery Method 03/01/25 10:00 Temperature Pulse Rate 71 Respiratory Rate Blood Pressure Pulse Oximetry 97 Oxygen Delivery Method MDM - URI/Sore Throat Differential Diagnosis Differential diagnosis: Likely upper respiratory infection, bronchitis and other (sickle cell crisis/anemia) Lab Data 03/01/25 07:10 03/01/25 07:10 Labs: Lab Results 03/01/25 03/01/25 Range/Units 07:10 08:05 WBC 19.9 H (4.5-11.0) X10^3/uL RBC 3.89 L (4.5-5.9) X10^6/uL Hgb 9.4 L (13.5-17.5) g/dL Hct 28.1 L (41-53) % MCV 72.3 L (80-100) fL MCH 24.3 L (26-34) PG MCHC 33.6 (30-36) % RDW 19.1 H (11.6-14.8) % Plt Count 293 (150-400) X10^3/uL Neut % (Auto) Not Reportable Lymph % (Auto) Not Reportable [place] % (Auto) Not Reportable Eos % (Auto) Not Reportable Baso % (Auto) Not Reportable Lymph # (Auto) Not Reportable [place] # (Auto) Not Reportable Baso # (Auto) Not Reportable Total Counted 100 Seg Neutrophils % 72.0 H (38-70) % Lymphocytes % (Manual) 16.0 L (25-45) % Monocytes % (Manual) 11.0 (2-11) % Eosinophils % (Manual) 1.0 L (2-4) % Neutrophils # (Manual) 93846 H (5058-5895) /uL Nucleated RBCs 1 H ( - 0) #/Diff RBC Morphology See below Poikilocytosis 2+ H Anisocytosis 2+ H Sickle Cells 1+ H Target Cells 1+ H Schistocytes 1+ H Percent Retic 7.5 H (0.9-2.6) % PT 14.9 H (9.4-12.5) SECONDS INR 1.3 (0.9-1.3) Sodium 137 (137-145) mmol/L Potassium 3.8 (3.4-5.1) mmol/L Chloride 106 (98-107) mmol/L Carbon Dioxide 24 (22-32) mmol/L BUN 4 L (9-20) mg/dL Creatinine 0.67 (0.66-1.25) mg/dL Estimated GFR > 60 (>60) mL/min BUN/Creatinine Ratio 6.0 (6-22) Glucose 89 (70-99) mg/dL Calcium 8.5 (8.4-10.2) mg/dL Total Bilirubin 3.2 H (0.2-1.3) mg/dL AST 69 H (17-59) IU/L ALT 27 (<50) IU/L Alkaline Phosphatase 76 (38-126) U/L Total Protein 8.2 (6.3-8.2) g/dL Albumin 4.5 (3.5-5.0) g/dL Globulin 3.7 (1.7-4.1) g/dL Albumin/Globulin Ratio 1.2 (1.0-2.8) Group A Strep (PCR) Negative (Negative) MDM Narrative Medical decision making narrative: Based on his laboratory work and his presentation most likely a sickle cell crisis. Patient pain better after a bolus of 1 L normal saline 2 g IV Dilaudid. Discharge Plan Departure Patient Disposition: Home Clinical Impression: Sickle cell disease with crisis Instructions: Sickle Cell Disease Activity Restrictions/Additional Instructions: f/up with hematology/pcp as planned, f/up in ed if pain worsens Prescriptions: No Action cholecalciferol (vitamin D3) 10 mcg (400 unit) capsule 20 mcg PO DAILY Qty: 180 0RF Rx Instructions: Start two capsules daily after 6 weeks of 1250mcg weekly dosing. duloxetine 60 mg capsule,delayed release(DR/EC) 60 mg PO DAILY Qty: 90 2RF ondansetron 4 mg tablet,disintegrating 4 mg PO Q8H PRN (Reason: nausea and vomiting) Qty: 20 0RF albuterol sulfate 90 mcg/actuation HFA aerosol inhaler 2 puff inhalation Q6H PRN (Reason: wheezing) doxycycline hyclate 100 mg Tablet 100 mg PO BID Qty: 20 0RF naloxone 4 mg/actuation spray,non-aerosol 1 spray intranasal PRN PRN (Reason: Opioid Overdose) Qty: 4 0RF hydroxyurea (sickle cell) 400 mg capsule 400 mg PO DAILY Qty: 90 3RF hydrocodone-acetaminophen 5-325 mg tablet 1 tab PO BEDTIME PRN (Reason: pain) Qty: 15 0RF hydrocodone-acetaminophen 5-325 mg tablet 1 tab PO Q4-6H PRN (Reason: pain) Qty: 20 0RF Referrals: Jen Albarran FNP-BC [Primary Care Provider, Family Practice] Stand Alone Forms: Patient Portal/API
[2025-03-01] MEDS: SODIUM CHLORIDE 0.9% 1,000 ML 1000 ML IV (08:07)
[2025-03-01 08:25] LABS: Hematocrit 28.1 % (41-53); Hemoglobin 9.4 g/dL (13.5-17.5); Mean Corpuscular HGB Conc 33.6 % (30-36); Mean Corpuscular Hemoglobin 24.3 PG (26-34); Mean Corpuscular Volume 72.3 fL (80-100); Platelet Count 293 X10^3/uL (150-400)
[2025-03-01 08:26] LABS: Add Manual Diff / Slide Review YES
[2025-03-01] MEDS: HYDROMORPHONE 1 MG INJ IV ×2 (08:29→09:50)
[2025-03-01 08:32] LABS: Strep Grp A by PCR Rapid Negative (Negative)
[2025-03-01 09:10] LABS: Eosinophils Percent Manual 1.0 % (2-4); Lymphocytes Percent Manual 16.0 % (25-45); Monocytes Percent Manual 11.0 % (2-11); Neutrophils Absolute Manual 14328 /uL (3000-5900); Poikilocytosis 2+; Segmented Neutrophils Percent 72.0 % (38-70); Sickle Cells 1+; Total Cells Counted 100
[2025-03-01 09:11] LABS: Anisocytosis 2+; Target Cells 1+
[2025-03-01 09:12] LABS: Schistocytes 1+
[2025-03-01 09:24] LABS: INR 1.3 (0.9-1.3); Prothrombin Time 14.9 SECONDS (9.4-12.5)
[2025-03-01 09:27] LABS: Alanine Aminotransferase 27 IU/L (<50); Albumin 4.5 g/dL (3.5-5.0); Albumin Globulin Ratio 1.2 (1.0-2.8); Alkaline Phosphatase 76 U/L (38-126); Blood Urea Nitrogen 4 mg/dL (9-20); Calcium 8.5 mg/dL (8.4-10.2); Carbon Dioxide 24 mmol/L (22-32); Chloride 106 mmol/L (98-107); Estimated Glomerular Filt Rate > 60 mL/min (>60); Globulin 3.7 g/dL (1.7-4.1); Glucose 89 mg/dL (70-99); HEMOLYSIS < 15 (0-50); Potassium 3.8 mmol/L (3.4-5.1); Sodium 137 mmol/L (137-145); Total Protein 8.2 g/dL (6.3-8.2)
[2025-03-01 09:31] LABS: Reticulocyte Count, Percent 7.5 % (0.9-2.6)
== END 2025-03-01 10:15 | disposition home or self-care (01) ==
PROVIDERS: Emergency Provider Family Medicine; PCP Nurse Practitioner Family
DX: D57.00 Hb-SS disease with crisis, unspecified (principal)
CPT/HCPCS: 36415; 80053; 85007; 85025; 85045; 85610; 87070; 87651; 99284; J1171

== ENCOUNTER 2025-03-01 16:13 | Emergency (ER) | payer OTHER, SELFPAY ==
[2025-01-15 11:49] VITALS: BMI 19.5
[2025-03-01 16:43] VITALS: BP 109/62; PULSE 88; RESP 16; TEMP 36.7; O2SAT 99; BMI 18.6
[2025-03-01 17:40] LABS: COVID-19 CEPHEID 4-PLEX PCR Negative (Negative); Influenza A - CEPHEID Flu A NEGATIVE (NEGATIVE); Influenza B - CEPHEID Flu B NEGATIVE (NEGATIVE)
--- NOTE | 2025-03-01 17:41 | ED.RECABL ---
HPI - Recheck/Abnormal Lab/Rx General Chief Complaint: Recheck/Abnormal Lab/Rx Stated Complaint: headache, cold throat, all over body pain Time Seen by Provider: 03/01/25 17:10 History of Present Illness HPI narrative: Mr. Keller is a pleasant 24-year-old male with a past medical history of sickle cell disease with prior stroke, left-sided arm contracture, AVN, splenectomy who presents to the emergency department for sore throat, headache, chills and full body aches x2 days. Patient does come to the ER frequently for sickle cell pain crises, was recently seen on 02/25/2025 for a typical sickle cell crisis however the patient states over the last 2 days they have been experiencing symptoms that are very different than the normal sickle cell pain which caused him to return to the ER. He is experiencing chills, full body ache sore throat, cough and headache which are not normal of his sickle cell pain. He was here earlier today and received IV fluids and IV pain medications which helped, he was discharged home, however despite taking Tylenol the symptoms returned. He denies chest pain, shortness of breath, nausea, vomiting, diarrhea, constipation, dysuria.No abx allergies. Related Data Home Medications ?Medication ?Instructions ?Recorded ?Confirmed albuterol sulfate 90 mcg/actuation 2 puff inhalation Q6H PRN wheezing 11/18/24 01/15/25 aerosol inhaler Previous Rx's ?Medication ?Instructions ?Recorded ondansetron 4 mg disintegrating 4 mg PO Q8H PRN nausea and 10/02/24 tablet vomiting #20 tabs cholecalciferol (vitamin D3) 10 20 mcg (2 x 10 mcg (400 unit)) PO 10/25/24 mcg (400 unit) capsule DAILY #180 caps doxycycline hyclate 100 mg tablet 100 mg PO BID #20 tabs 11/24/24 naloxone 4 mg/actuation nasal spray 1 spray intranasal PRN PRN Opioid 11/24/24 Overdose #4 ea duloxetine 60 mg capsule,delayed 60 mg PO DAILY #90 caps 12/04/24 release hydroxyurea (sickle cell) 400 mg 400 mg PO DAILY #90 caps 01/12/25 capsule hydrocodone 5 mg-acetaminophen 325 1 tab PO BEDTIME PRN pain #15 tabs 01/16/25 mg tablet hydrocodone 5 mg-acetaminophen 325 1 tab PO Q4-6H PRN pain #20 tabs 02/02/25 mg tablet amoxicillin 500 mg capsule 500 mg PO BID 10 days #20 caps 03/01/25 Allergies Allergy/AdvReac Type Severity Reaction Status Date / Time No Known Drug Allergies Allergy Verified 02/25/25 11:36 Review of Systems Review of Systems ROS Unobtainable: All systems reviewed & are unremarkable except as noted in HPI and below Patient History Medical History Vitamin D deficiency PTSD (post-traumatic stress disorder) Depression Anxiety Seizure Anemia Avascular necrosis of bone Contracture, left elbow Contracture, left hand CVA (cerebral vascular accident) Sickle cell anemia Surgical History History of shoulder surgery 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 Family History Father Cancer Sickle cell trait Lupus Mother Sickle cell trait Brother Sickle cell trait Social History household members: significant other alcohol intake: current tobacco type: vaping alcohol intake frequency: holidays/special occasions only Exam Narrative Exam Narrative: GENERAL: 24 year old patient appears stated age. Well-developed patient, in no acute distress. HEAD: Atraumatic. Normocephalic. EYES: No scleral icterus. No injection or drainage. ENT: Nose without bleeding, purulent drainage. Throat with posterior oropharyngeal erythema and bilateral tonsillar hypertrophy with no exudates. Uvula is midline. Speech is clear. NECK: Trachea midline. Cervical ROM intact. Negative meningeal signs. CARDIOVASCULAR: Regular rate and rhythm. RESPIRATORY: ?Nonlabored respirations. ?Speaking in clear, full sentences. ?Clear to auscultation. Breath sounds equal bilaterally. No wheezes, rales, or rhonchi. ? EXTREMITIES: Contracture of left upper extremity. Sensation intact to light touch throughout the bilateral upper and lower extremities. NEURO: AOx3. ?Clear speech. Ambulates at baseline with slight limp. SKIN: No rash or erythema of visible areas Initial Vital Signs Initial Vital Signs: Vital Signs Temperature 98.0 F 03/01/25 16:43 Pulse Rate 88 03/01/25 16:43 Respiratory Rate 16 03/01/25 16:43 Blood Pressure 109/62 03/01/25 16:43 Pulse Oximetry 99 03/01/25 16:43 Oxygen Delivery Method Room Air 03/01/25 16:43 Course Orders Ordered: ED Orders 03/01/25 16:58 Covid-19 + FLU A/B + RSV - PCR Stat 03/01/25 17:57 XR chest 2V Stat Discontinued Medications Acetaminophen (Acetaminophen 325 Mg Tablet) 650 mg PO NOW ONE Stop: 03/01/25 17:58 Last Admin: 03/01/25 18:22 Dose: 650 mg Documented By: LM Amoxicillin (Amoxicillin 250 Mg Capsule) 500 mg PO NOW ONE Stop: 03/01/25 19:14 Last Admin: 03/01/25 19:26 Dose: 500 mg Hydromorphone HCl (Hydromorphone 1 Mg Inj) 1 mg IM NOW ONE Stop: 03/01/25 17:58 Last Admin: 03/01/25 18:23 Dose: 1 mg Documented By: LM Ibuprofen (Ibuprofen 400 Mg Tablet) 400 mg PO NOW ONE Stop: 03/01/25 17:58 Last Admin: 03/01/25 18:22 Dose: 400 mg Documented By: LM Oxycodone HCl (Oxycodone Ir 5 Mg Tablet) 5 mg PO NOW ONE Stop: 03/01/25 19:14 Last Admin: 03/01/25 19:26 Dose: 5 mg Vital Signs Vital signs: Vital Signs - 8 hr 03/01/25 16:43 03/01/25 19:36 Temperature 98.0 F Pulse Rate 88 70 Respiratory Rate 16 16 Blood Pressure 109/62 104/56 L Pulse Oximetry 99 97 Oxygen Delivery Method Room Air Room Air MDM - Recheck/Abnormal Lab/Rx Medical Records Attestation: I reviewed the patient's medical records. Medical records narrative: Reviewed x-ray from 02/25 revealing possible right-sided pneumonia, reviewed labs from today, reviewed multiple prior ED visits as well. Lab Data Labs: Lab Results 03/01/25 Range/Units 16:58 SARS-CoV-2 (PCR) Negative (Negative) Influenza A (RT-PCR) Flu a negative (NEGATIVE) Influenza B (RT-PCR) Flu b negative (NEGATIVE) RSV (PCR) Negative (Negative) Imaging Data Chest x-ray: Radiologist's Impression: PROCEDURE: XR CHEST 2V INDICATIONS: cough sore throat concern PNA TECHNIQUE: 2 views of the chest were acquired. COMPARISON: [facility], CR, XR CHEST 1V, 02/25/2025, 13:46. [facility], CR, XR CHEST 1V, 01/15/2025, 2:19. FINDINGS: Surgical changes and devices: None. Lungs and pleura: Lungs are clear. No pleural effusions or pneumothorax. Mediastinum: Mediastinal contours are normal. Heart size is normal. Bones and chest wall: No suspicious bony abnormalities. Soft tissues appear unremarkable. IMPRESSION: No acute cardiopulmonary abnormality is seen. Dictated by: Van Hardy M.D. on 03/01/2025 at 18:49 Approved by: Van Hardy M.D. on 03/01/2025 at 18:50 MDM Narrative Medical decision making narrative: 24-year-old male with a past medical history of sickle cell disease with prior stroke, left-sided arm contracture, AVN, splenectomy who presents to the emergency department for sore throat, headache, chills and full body aches x2 days. 2nd ED visit today. Differential diagnosis includes but isn't limited to viral pharyngitis, bacterial pharyngitis, viral URI, bacterial URI, pneumonia, sickle cell pain crises, etc. On exam patient is in no acute distress, nontoxic appearing, vital signs appropriate. He does have posterior oropharyngeal erythema and bilateral tonsillar hypertrophy. Lungs are clear to auscultation however patient did have an x-ray on 02/25/2025 that was concerning for right-sided pneumonia however patient was having no URI type symptoms at this time. Labs were obtained earlier today revealing a negative rapid strep throat test however throat culture still pending, labs earlier today did reveal an elevated WBC count of 19.9, baseline hemoglobin of 9.4, normal renal function with a creatinine of 0.67. We will add on viral swab, repeat chest x-ray, treat pain with ibuprofen, Tylenol and IM Dilaudid. Patient's chest x-ray today reveals no acute abnormalities however given patient's progressively worsening URI type symptoms and tonsillitis on exam we will treat with amoxicillin 500 mg b.i.d. times 10 days. I also recommended the continued use of ibuprofen and Tylenol at home in addition to the completion of full course of antibiotics, advised incorporating probiotics into the diet while taking antibiotics. Advised prompt follow up with PCP for further management discussed ED return precautions. Patient verbalized understanding of all information is agreeable with the plan, pain improved, agreeable and stable for discharge home. First dose of antibiotic given in the ED. Discharge Plan Departure Patient Disposition: Home Clinical Impression: Sickle-cell disease with pain Pharyngitis Qualifiers: Pharyngitis/tonsillitis etiology: unspecified etiology Qualified Code(s): J02.9 - Acute pharyngitis, unspecified Instructions: DI for Pharyngitis/Tonsillopharyngitis -- Adult Activity Restrictions/Additional Instructions: Dear Mr. Keller, Today you tested negative for COVID/flu/RSV. Your rapid strep test was negative as well however the throat culture is still pending. This time I am concerned for an upper respiratory infection/tonsillitis, so I would like you to complete the full 10 day course of amoxicillin. Please continue using your home pain medicine as needed, Tylenol and ibuprofen for pain and fevers as well. Please take Ibuprofen (Motrin/Advil) or Acetaminophen (Tylenol) for pain. These are available over the counter. You may take Ibuprofen 600 mg every 8 hours with food for pain. You may also take Acetaminophen 650 mg every 4-6 hours for pain. Do not exceed 3000 mg of Tylenol a day as this can cause liver damage. Do not drink alcohol with either of these medications. Please complete the full course of antibiotics, incorporate probiotics into your diet while taking antibiotics such as Activia yogurt, and follow up with your primary care doctor for further evaluation. Please follow up with your primary care doctor within the next 2-3 days for ER follow-up. (If you do not have a PCP you can call [phone]. ?to schedule an appointment with an [facility] Primary Care Provider) IF YOU DEVELOP ANY NEW OR WORSENING SYMPTOMS, RETURN TO THE ER! Please read the attached instructions, they highlight more specific treatments and interventions for you at home. Thank you for letting me participate in your care, Trisha Low PA-C Prescriptions: New amoxicillin 500 mg capsule 500 mg PO BID 10 Days Qty: 20 0RF No Action cholecalciferol (vitamin D3) 10 mcg (400 unit) capsule 20 mcg PO DAILY Qty: 180 0RF Rx Instructions: Start two capsules daily after 6 weeks of 1250mcg weekly dosing. duloxetine 60 mg capsule,delayed release(DR/EC) 60 mg PO DAILY Qty: 90 2RF ondansetron 4 mg tablet,disintegrating 4 mg PO Q8H PRN (Reason: nausea and vomiting) Qty: 20 0RF albuterol sulfate 90 mcg/actuation HFA aerosol inhaler 2 puff inhalation Q6H PRN (Reason: wheezing) doxycycline hyclate 100 mg Tablet 100 mg PO BID Qty: 20 0RF naloxone 4 mg/actuation spray,non-aerosol 1 spray intranasal PRN PRN (Reason: Opioid Overdose) Qty: 4 0RF hydroxyurea (sickle cell) 400 mg capsule 400 mg PO DAILY Qty: 90 3RF hydrocodone-acetaminophen 5-325 mg tablet 1 tab PO BEDTIME PRN (Reason: pain) Qty: 15 0RF hydrocodone-acetaminophen 5-325 mg tablet 1 tab PO Q4-6H PRN (Reason: pain) Qty: 20 0RF Referrals: Jen Albarran FNP-BC [Primary Care Provider, Family Practice] Stand Alone Forms: Patient Portal/API
--- NOTE | 2025-03-01 17:57 | DI.RAD.S_ITS ---
PROCEDURE: XR CHEST 2V INDICATIONS: cough sore throat concern PNA TECHNIQUE: 2 views of the chest were acquired. COMPARISON: [facility], CR, XR CHEST 1V, 02/25/2025, 13:46. [facility], CR, XR CHEST 1V, 01/15/2025, 2:19. FINDINGS: Surgical changes and devices: None. Lungs and pleura: Lungs are clear. No pleural effusions or pneumothorax. Mediastinum: Mediastinal contours are normal. Heart size is normal. Bones and chest wall: No suspicious bony abnormalities. Soft tissues appear unremarkable. IMPRESSION: No acute cardiopulmonary abnormality is seen. Dictated by: Van Hardy M.D. on 03/01/2025 at 18:49 Approved by: Van Hardy M.D. on 03/01/2025 at 18:50
[2025-03-01] MEDS: ACETAMINOPHEN 325 MG TABLET 650 MG PO (18:22)
[2025-03-01] MEDS: IBUPROFEN 400 MG TABLET PO (18:22)
[2025-03-01] MEDS: HYDROMORPHONE 1 MG INJ IM (18:23)
[2025-03-01] MEDS: AMOXICILLIN 250 MG CAPSULE 500 MG PO (19:26)
[2025-03-01] MEDS: OXYCODONE IR 5 MG TABLET PO (19:26)
[2025-03-01 19:36] VITALS: BP 104/56; PULSE 70; RESP 16; O2SAT 97
== END 2025-03-01 19:37 | disposition home or self-care (01) ==
PROVIDERS: Emergency Provider Physician Assistant; PCP Nurse Practitioner Family
DX: D57.00 Hb-SS disease with crisis, unspecified (principal); J02.9 Acute pharyngitis, unspecified; R51.9 Headache, unspecified
CPT/HCPCS: 36415; 71046; 80053; 85007; 85025; 85045; 85610; 87070; 87637; 87651; 96372; 99283; 99284; J1171

== ENCOUNTER 2025-03-02 17:15 | Inpatient (IN) | payer OTHER, SELFPAY ==
[2025-01-15 11:49] VITALS: BMI 19.5
[2025-03-02] VITALS (12 sets, daily range): BP systolic 97–102; BP diastolic 49–62; PULSE 62–106; RESP 16–31; TEMP 36.6–37.6; O2SAT 94–98; BMI 18.6
--- NOTE | 2025-03-02 17:23 | DI.RAD.S_ITS ---
PROCEDURE: XR CHEST 1V INDICATIONS: suspected sepsis TECHNIQUE: One view of the chest was acquired. COMPARISON: [facility], CR, XR CHEST 2V, 03/01/2025, 18:02. [facility], CR, XR CHEST 1V, 02/25/2025, 13:46. FINDINGS: Surgical changes and devices: None. Lungs and pleura: Lungs are clear. No pleural effusions or pneumothorax. Mediastinum: Mediastinal contours appear normal. Heart size is normal. Bones and chest wall: No suspicious bony lesions. Overlying soft tissues appear unremarkable. IMPRESSION: No acute cardiopulmonary abnormality is seen. Dictated by: Helga Irving M.D. on 03/02/2025 at 17:40 Approved by: Helga Irving M.D. on 03/02/2025 at 17:42
--- NOTE | 2025-03-02 17:30 | EKG_ITS ---
[facility] [address] [place] [address] Test Date: 2025-03-02 Pat Name: Lucretia Keller Department: [facility] Room: Gender: Male Geriatric Case Manager: : 2000 Requested By: Order Number: [id number] Reading MD: Arslan Belcher Measurements Intervals [place] Rate: 93 P: 51 WV: 256 QRS: 27 QRSD: 94 T: 33 QT: 350 QTc: 435 Interpretive Statements Sinus rhythm with 1st degree AV block Electronically Signed On 03-03-2025 8:42:56 PDT by Arslan Belcher
[2025-03-02] MEDS: SODIUM CHLORIDE 0.9% 1,000 ML 1000 ML IV (17:42)
[2025-03-02 17:46] LABS: Add Manual Diff / Slide Review YES; Hematocrit 27.6 % (41-53); Hemoglobin 9.2 g/dL (13.5-17.5); Mean Corpuscular HGB Conc 33.5 % (30-36); Mean Corpuscular Hemoglobin 24.7 PG (26-34); Mean Corpuscular Volume 73.9 fL (80-100); Platelet Count 286 X10^3/uL (150-400)
[2025-03-02 17:52] LABS: INR 1.4 (0.9-1.3); Prothrombin Time 16.2 SECONDS (9.4-12.5)
[2025-03-02 17:55] LABS: PTT Partial Thromboplastin Tim 26 SECONDS (25.1-36.5)
[2025-03-02 17:56] LABS: Lactate (Lactic Acid) 1.9 mmol/L (0.7-2.1)
[2025-03-02 17:57] LABS: Alanine Aminotransferase 24 IU/L (<50); Albumin 4.3 g/dL (3.5-5.0); Albumin Globulin Ratio 1.2 (1.0-2.8); Alkaline Phosphatase 69 U/L (38-126); Blood Urea Nitrogen 6 mg/dL (9-20); Calcium 8.1 mg/dL (8.4-10.2); Carbon Dioxide 22 mmol/L (22-32); Chloride 105 mmol/L (98-107); Estimated Glomerular Filt Rate > 60 mL/min (>60); Globulin 3.6 g/dL (1.7-4.1); Glucose 109 mg/dL (70-99); HEMOLYSIS 36 (0-50); Lipase 77 U/L (23-300); Potassium 3.9 mmol/L (3.4-5.1); Sodium 136 mmol/L (137-145); Total Protein 7.9 g/dL (6.3-8.2)
[2025-03-02 18:00] LABS: Anisocytosis 2+; Band Neutrophils Percent 3.0 % (3-7); Basophils Percent Manual 1.0 % (0-1); Eosinophils Percent Manual 1.0 % (2-4); Lymphocytes Percent Manual 22.0 % (25-45); Monocytes Percent Manual 4.0 % (2-11); Neutrophils Absolute Manual 17568 /uL (3000-5900); Schistocytes 1+; Segmented Neutrophils Percent 69.0 % (38-70); Sickle Cells 1+; Target Cells 2+; Total Cells Counted 100
[2025-03-02 18:13] LABS: Procalcitonin 0.137 ng/mL (<0.5)
--- NOTE | 2025-03-02 18:56 | ED_ITS ---
HPI - General Adult General Chief complaint: Fever Stated complaint: Pain, throat hurts, has fever Time Seen by Provider: 03/02/25 18:00 Source: patient Mode of arrival: Ambulatory History of Present Illness HPI narrative: 24-year-old gentleman with a history of sickle cell disease, post splenectomy, stroke with left-sided deficits, has been seen 3 times now in 24 hours. [place] better after fluids and Dilaudid. Presented later in the day complaining of significant pharyngitis, headache, chills and symptoms worsening overall. Typically headaches and chills or not part of his sickle presentation. With his visits yesterday 1 of the chest x-rays was suggestive of possible right lower lobe pneumonia, he was sent home on amoxicillin had a single dose in the ER yesterday evening. All of his symptoms continue to escalate Related Data Home Medications ?Medication ?Instructions ?Recorded ?Confirmed albuterol sulfate 90 mcg/actuation 2 puff inhalation Q 6H PRN wheezing 11/18/24 01/15/25 aerosol inhaler Previous Rx's ?Medication ?Instructions ?Recorded ondansetron 4 mg disintegrating 4 mg PO Q8H PRN nausea and 10/02/24 tablet vomiting #20 tabs cholecalciferol (vitamin D3) 10 20 mcg (2 x 10 mcg (40 0 unit)) PO 10/25/24 mcg (400 unit) capsule DAILY #180 caps doxycycline hyclate 100 mg tablet 100 mg PO BID #20 ta bs 11/24/24 naloxone 4 mg/actuation nasal spray 1 spray intranasal PRN PRN Opioid 11/24/24 Overdose #4 ea duloxetine 60 mg capsule,delayed 60 mg PO DAILY #90 ca ps 12/04/24 release hydroxyurea (sickle cell) 400 mg 400 mg PO DAILY #90 c aps 01/12/25 capsule hydrocodone 5 mg-acetaminophen 325 1 tab PO BEDTIME LA N pain #15 tabs 01/16/ mg tablet hydrocodone 5 mg-acetaminophen 325 1 tab PO Q4-6H PRN pain #20 tabs 02/02/25 mg tablet amoxicillin 500 mg capsule 500 mg PO BID 10 days #20 c aps 03/01/25 Allergies Allergy/AdvReac Type Severity Reaction Status Date / Time No Known Drug Allergies Allergy Verified 02/25/25 11:36 Review of Systems Review of Systems Narrative: Pertinent positive and negative findings as per HPI Patient History Medical History Vitamin D deficiency PTSD (post-traumatic stress disorder) Depression Anxiety Seizure Anemia Avascular necrosis of bone Contracture, left elbow Contracture, left hand CVA (cerebral vascular accident) Sickle cell anemia Surgical History History of shoulder surgery 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 Family History Father Cancer Sickle cell trait Lupus Mother Sickle cell trait Brother Sickle cell trait Social History household members: significant other alcohol intake: current tobacco type: vaping alcohol intake frequency: holidays/special occasions only Exam Initial Vital Signs Initial Vital Signs: Vital Signs Temperature 99.7 F H 03/02/25 17:18 Pulse Rate 106 H 03/02/25 17:18 Respiratory Rate 16 03/02/25 17:18 Blood Pressure 102/60 03/02/25 17:18 Pulse Oximetry 98 03/02/25 17:18 Oxygen Delivery Method Room Air 03/02/25 17:18 General: Appears fatigued, hurting, alert, cooperative appropriate HEENT: Moist mucous membranes, normal sclera with reactive pupils, mild posterior erythema no significant cervical adenopathy Neck: No nuchal rigidity Respiratory: Lungs without wheeze, full and symmetrical air movement, question rhonchi developing in the right mid axillary line, does clear with deep breathing Cardiac: Regular rate and rhythm no murmurs no bruits Abdomen: Soft, mild tenderness over the liver edge and epigastrium. Gallbladder is surgically absent Skin: Warm and dry, no rashes Neurologic: Grossly neurologically intact with no obvious asymmetries or abnormalities Extremities: No trauma, well perfused Psych: Cooperative, appropriate insight and affect Course Orders Ordered: ED Orders 03/02/25 17:23 XR chest 1V Stat EKG-12 Lead Stat 03/02/25 17:36 Complete Blood Count AUTO DIFF Stat Comprehensive Metabolic Panel Stat Lactate (Lactic Acid) Stat Lipase Stat Monotest Stat PTT Partial Thromboplastin [place] Stat Procalcitonin Stat Prothrombin Time INR Stat 03/02/25 17:43 Blood Culture Stat 03/02/25 19:09 Respiratory Panel (Film Array) Stat 03/02/25 20:00 UA Complete [Urinalysis and Microscopic] Stat 03/02/25 21:45 CT chest abd pel w con Stat Ondansetron HCl (Ondansetron 4 Mg/2 Ml Inj) 4 mg IV NOW PRN PRN Reason: Nausea And Vomiting Ondansetron HCl (Ondansetron 4 Mg Odt) 4 mg PO NOW PRN PRN Reason: Nausea And Vomiting Discontinued Medications Acetaminophen (Acetaminophen 325 Mg Tablet) 975 mg PO NOW ONE Stop: 03/02/25 19:11 Last Admin: 03/02/25 19:35 Dose: 975 mg Documented By: TATY Hydromorphone HCl (Hydromorphone 1 Mg Inj) 1 mg IV NOW ONE Stop: 03/02/25 19:11 Last Admin: 03/02/25 19:34 Dose: 1 mg Documented By: TATY Hydromorphone HCl (Hydromorphone 1 Mg Inj) 1 mg IV NOW ONE Stop: 03/02/25 20:43 Last Admin: 03/02/25 21:05 Dose: 1 mg Documented By: TATY Sodium Chloride (Normal Saline 0.9%) 1,000 mls @ 1,000 mls/hr IV BOLUS ONE Stop: 03/02/25 18:22 Last Infusion: 03/02/25 18:45 Dose: Infused Documented By: Admin: 03/02/25 17:42 Dose: 1,000 mls/hr Documented By: ZACH Ceftriaxone Sodium 2,000 mg/ (Sodium Chloride) 100 mls @ 200 mls/hr IV NOW ONE Stop: 03/02/25 19:11 Last Infusion: 03/02/25 20:07 Dose: Infused Documented By: Admin: 03/02/25 19:37 Dose: 200 mls/hr Documented By: TATY Ondansetron HCl (Ondansetron 4 Mg/2 Ml Inj) 4 mg IV NOW ONE Stop: 03/02/25 19:11 Last Admin: 03/02/25 19:34 Dose: 4 mg Documented By: TATY Vital Signs Vital signs: Vital Signs - 8 hr 03/02/25 17:18 03/02/25 18:13 03/02/25 18:43 Temperature 99.7 F H Pulse Rate 106 H 95 H 95 H Respiratory Rate 16 23 17 Blood Pressure 102/60 97/57 L Pulse Oximetry 98 98 97 Oxygen Delivery Method Room Air Room Air 03/02/25 20:01 03/02/25 20:30 03/02/25 20:30 Temperature Pulse Rate 85 76 Respiratory Rate 21 Blood Pressure 101/56 L Pulse Oximetry 96 95 Oxygen Delivery Method 03/02/25 21:00 03/02/25 21:00 03/02/25 21:30 Temperature Pulse Rate 74 72 Respiratory Rate 18 17 Blood Pressure 100/55 L Pulse Oximetry 94 95 Oxygen Delivery Method 03/02/25 21:30 03/02/25 22:03 03/02/25 22:30 Temperature Pulse Rate 64 68 Respiratory Rate 22 Blood Pressure 102/49 L Pulse Oximetry 96 96 Oxygen Delivery Method 03/02/25 23:00 Temperature 97.8 F Pulse Rate 62 Respiratory Rate Blood Pressure Pulse Oximetry 95 Oxygen Delivery Method Medical Decision Making Lab Data 03/02/25 17:36 03/02/25 17:36 Labs: Lab Results 03/02/25 03/02/25 03/02/25 Range/Units 17:36 19:09 19:09 WBC 24.4 H (4.5-11.0) X10^3/uL RBC 3.73 L (4.5-5.9) X10^6/uL Hgb 9.2 L (13.5-17.5) g/dL Hct 27.6 L (41-53) % MCV 73.9 L (80-100) fL MCH 24.7 L (26-34) PG MCHC 33.5 (30-36) % RDW 20.0 H (11.6-14.8) % Plt Count 286 (150-400) X10^3/uL Neut % (Auto) Not Reportable Lymph % (Auto) Not Reportable [place] % (Auto) Not Reportable Eos % (Auto) Not Reportable Baso % (Auto) Not Reportable Lymph # (Auto) Not Reportable [place] # (Auto) Not Reportable Baso # (Auto) Not Reportable Total Counted 100 Seg Neutrophils % 69.0 (38-70) % Band Neutrophils % 3.0 (3-7) % Lymphocytes % (Manual) 22.0 L (25-45) % Monocytes % (Manual) 4.0 (2-11) % Eosinophils % (Manual) 1.0 L (2-4) % Basophils % (Manual) 1.0 (0-1) % Neutrophils # (Manual) 50133 H (1519-6555) /uL Nucleated RBCs 2 H ( - 0) #/Diff RBC Morphology See below Anisocytosis 2+ H Sickle Cells 1+ H Target Cells 2+ H Schistocytes 1+ H PT 16.2 H (9.4-12.5) SECONDS INR 1.4 H (0.9-1.3) APTT 26 (25.1-36.5) SECONDS Sodium 136 L (137-145) mmol/L Potassium 3.9 (3.4-5.1) mmol/L Chloride 105 (98-107) mmol/L Carbon Dioxide 22 (22-32) mmol/L BUN 6 L (9-20) mg/dL Creatinine 0.68 (0.66-1.25) mg/dL Estimated GFR > 60 (>60) mL/min BUN/Creatinine Ratio 8.8 (6-22) Glucose 109 H (70-99) mg/dL Lactate 1.9 (0.7-2.1) mmol/L Calcium 8.1 L (8.4-10.2) mg/dL Total Bilirubin 3.4 H (0.2-1.3) mg/dL AST 53 (17-59) IU/L ALT 24 (<50) IU/L Alkaline Phosphatase 69 (38-126) U/L Total Protein 7.9 (6.3-8.2) g/dL Albumin 4.3 (3.5-5.0) g/dL Globulin 3.6 (1.7-4.1) g/dL Albumin/Globulin Ratio 1.2 (1.0-2.8) Lipase 77 (23-300) U/L Procalcitonin 0.137 (<0.5) ng/mL Urine Color Urine Appearance Urine pH (4.5-8.0) Ur Specific [place] (1.000-1.035) Urine Protein (Negative) Urine Glucose (UA) (Negative) g/dL Urine Ketones (NEGATIVE) Urine Occult Blood (Negative) Urine Nitrate (Negative) Urine Bilirubin (NEGATIVE) Urine Urobilinogen (0.2) E.U./dL Ur Leukocyte Esterase (NEGATIVE) Urine RBC (0-5/HPF) Urine WBC (0-5/HPF) Ur Squamous Epith Cells (0-5/HPF) Urine Bacteria (None) Ur Culture Indicated? Vol Urine Centrifuged Chlamy pneumoniae PCR Not detected (Not Detect) Adenovirus (PCR) Not detected (Not Detect) B. pertussis DNA (PCR) Not detected (Not Detect) B.parapertussis DNA PCR Not detected (Not Detecte) Coronavirus OC43 (PCR) Not detected (Not Detect) Coronavirus HKU1 (PCR) Not detected (Not Detect) Coronavirus 229E (PCR) Not detected (Not Detect) SARS-CoV-2 (PCR) Cancelled Not detected Coronavirus NL63 (PCR) Not detected (Not Detect) Monoscreen Negative (Negative) Human Metapneumovir PCR Not detected (Not Detect) Influenza A (RT-PCR) Cancelled Influenza Type A (PCR) Not detected (Not Detect) Influenza B (RT-PCR) Cancelled Influenza Type B (PCR) Not detected (Not Detect) M. pneumoniae (PCR) Not detected (Not Detect) Parainfluenza 1 (PCR) Not detected (Not Detect) Parainfluenza 2 (PCR) Not detected (Not Detect) Parainfluenza 3 (PCR) Not detected (Not Detect) Parainfluenza 4 (PCR) Not detected (Not Detect) RSV (PCR) Cancelled Entero/Rhino (PCR) (Not Detect) 03/02/25 03/02/25 Range/Units 19:09 20:00 WBC (4.5-11.0) X10^3/uL RBC (4.5-5.9) X10^6/uL Hgb (13.5-17.5) g/dL Hct (41-53) % MCV (80-100) fL MCH (26-34) PG MCHC (30-36) % RDW (11.6-14.8) % Plt Count (150-400) X10^3/uL Neut % (Auto) Lymph % (Auto) [place] % (Auto) Eos % (Auto) Baso % (Auto) Lymph # (Auto) [place] # (Auto) Baso # (Auto) Total Counted Seg Neutrophils % (38-70) % Band Neutrophils % (3-7) % Lymphocytes % (Manual) (25-45) % Monocytes % (Manual) (2-11) % Eosinophils % (Manual) (2-4) % Basophils % (Manual) (0-1) % Neutrophils # (Manual) (5388-5124) /uL Nucleated RBCs ( - 0) #/Diff RBC Morphology Anisocytosis Sickle Cells Target Cells Schistocytes PT (9.4-12.5) SECONDS INR (0.9-1.3) APTT (25.1-36.5) SECONDS Sodium (137-145) mmol/L Potassium (3.4-5.1) mmol/L Chloride (98-107) mmol/L Carbon Dioxide (22-32) mmol/L BUN (9-20) mg/dL Creatinine (0.66-1.25) mg/dL Estimated GFR (>60) mL/min BUN/Creatinine Ratio (6-22) Glucose (70-99) mg/dL Lactate (0.7-2.1) mmol/L Calcium (8.4-10.2) mg/dL Total Bilirubin (0.2-1.3) mg/dL AST (17-59) IU/L ALT (<50) IU/L Alkaline Phosphatase (38-126) U/L Total Protein (6.3-8.2) g/dL Albumin (3.5-5.0) g/dL Globulin (1.7-4.1) g/dL Albumin/Globulin Ratio (1.0-2.8) Lipase (23-300) U/L Procalcitonin (<0.5) ng/mL Urine Color Yellow Urine Appearance Clear Urine pH 7.0 (4.5-8.0) Ur Specific [place] 1.010 (1.000-1.035) Urine Protein Negative (Negative) Urine Glucose (UA) Negative (Negative) g/dL Urine Ketones Negative (NEGATIVE) Urine Occult Blood Negative (Negative) Urine Nitrate Negative (Negative) Urine Bilirubin Negative (NEGATIVE) Urine Urobilinogen 4.0 H (0.2) E.U./dL Ur Leukocyte Esterase Negative (NEGATIVE) Urine RBC 0-1/hpf (0-5/HPF) Urine WBC 0-1/hpf (0-5/HPF) Ur Squamous Epith Cells 0-1 /hpf (0-5/HPF) Urine Bacteria Occasional (0-1) (None) Ur Culture Indicated? Cult not indicated Vol Urine Centrifuged 10ml (spun) Chlamy pneumoniae PCR (Not Detect) Adenovirus (PCR) (Not Detect) B. pertussis DNA (PCR) (Not Detect) B.parapertussis DNA PCR (Not Detecte) Coronavirus OC43 (PCR) (Not Detect) Coronavirus HKU1 (PCR) (Not Detect) Coronavirus 229E (PCR) (Not Detect) SARS-CoV-2 (PCR) Coronavirus NL63 (PCR) (Not Detect) Monoscreen (Negative) Human Metapneumovir PCR (Not Detect) Influenza A (RT-PCR) Influenza Type A (PCR) (Not Detect) Influenza B (RT-PCR) Influenza Type B (PCR) (Not Detect) M. pneumoniae (PCR) (Not Detect) Parainfluenza 1 (PCR) (Not Detect) Parainfluenza 2 (PCR) (Not Detect) Parainfluenza 3 (PCR) (Not Detect) Parainfluenza 4 (PCR) (Not Detect) RSV (PCR) Not detected Entero/Rhino (PCR) Not detected (Not Detect) Urine Dip Bedside Urine Glucose Negative Bedside Urine Bilirubin - Negative Bedside Urine Ketone - Negative Urine Specific [place] 1.010 Bedside Urine Occult Blood - Negative Bedside Urine pH 7.0 Bedside Urine Protein - Negative Bedside Urine Urobilinogen +/- 1mg Bedside Urine Nitrite - Negative Bedside Urine Leukocytes - Negative Esterase Point of care testing: Urine Dip Bedside Urine Glucose Negative Bedside Urine Bilirubin - Negative Bedside Urine Ketone - Negative Urine Specific [place] 1.010 Bedside Urine Occult Blood - Negative Bedside Urine pH 7.0 Bedside Urine Protein - Negative Bedside Urine Urobilinogen +/- 1mg Bedside Urine Nitrite - Negative Bedside Urine Leukocytes - Negative Esterase MDM Narrative Medical decision making narrative: CC: Fever, body aches, general malaise Complicating co-morbidities: Sickle cell disease, post splenectomy Data collected from: patient Medical records reviewed: 3rd visit in 24 hours for similar complaints Differential considered: Viral syndrome, sepsis, pneumonia doubt that this is a sickle crisis and there is no suggestion that this is acute chest crisis Exam documented above, pertinent findings include: Alert and appropriate, appears uncomfortable, mild upper abdominal pain without rebound or guarding Lab Test results independently reviewed as above. Pertinent findings: CBC shows white count continuing to increase. February 25 that was 10 on the it was 20 today it is 25. Chronic stable anemia Chemistries show normal renal function Bilirubin is slightly elevated but close to his baseline. Remainder of liver studies were unremarkable Urine is unremarkable Full respiratory panel does not show significant abnormality Independently reviewed EKG: Sinus rhythm prolonged LA interval, no ischemia Imaging studies independently reviewed: Chest x-ray is unremarkable Treatments: Zofran, fluid, Dilaudid, Tylenol, 2 g of ceftriaxone Discussion: 24-year-old gentleman with sickle cell syndrome presenting now for the 3rd time in 24 hours with fevers body aches general malaise. This does not appear to be an acute sickle crisis and he describes the pain as significantly different as well. White count continues to increase his now at 25,000, stable anemia. No obvious localizing signs. CT scan of the chest abdomen and pelvis shows some pulmonary nodules but no obvious infiltrate. No intra-abdominal pathology. Urine does not show a source of infection. There is nothing about his presentation that is suggests acute meningitis and I do not think a lumbar puncture is indicated at this time. He is at risk for bacterial infection given his prior splenectomy. Blood cultures were obtained yesterday and today. From yesterday they are not yet positive. He was started on ceftriaxone care is reviewed with the hospitalist service and I am going to suggest admission given his continued complaints, immunocompromised status, concern for developing sepsis and unidentified source. Additional Information: Severe Sepsis Criteria [x ] bacterial source of infection suspected and documented [ ] 2 SIRS Criteria met [ x ] HR >90 [ ] RR >20 [ x ] fever or hypothermia [x ] leukocytosis/leukopenia/bandemia [ ] Evidence of at least 1 organ system dysfunction [ ] Lactate > 2 [ ] BP < 90 or MAP <65, >40mm decrease from normal baseline [ ] Creat > 2.0 [ ] T. Bili > 2.0 [ ] platelet count < 100k [ ] altered mental status [ ] mechanical ventilation [ ] provider documentation of severe sepsis Severe Sepsis Determination. the patient has been screened and [ ] DOES meet criteria for severe sepsis [x ] DOES NOT meet criteria for severe sepsis Goal directed treatment Within 3 hours [ x] blood cx drawn prior to abx [ ] broad spectrum abx started [ ] lactic acid level checked [ ] lactic redrawn within 6 hours if >2.0 Septic Shock Criteria [ ] lactic > 4 at any time [ ] SBP ,90 or MAP , 65 [ ] documentation of septic shock Time Septic Shock diagnosed: [ ] Septic Shock Determination. the patient has been screened and [ ] DOES meet criteria for septic shock [ ] DOES NOT meet criteria for septic shock Goal directed therapy within 3 hours of septic shock or initial hypotension [ ] 30ml/kg fluid [ ] ABW used [ ] IBW (33.6) used due to BMI > 30 [ ] patient or advocate declining fluid administration after shared decision making conversation Clinical reason for NOT initiating fluid bolus: Within 6 hours (if continued hypotension after fluids or initial lactate >4) [ ] repeat volume status and tissue perfusion assessment documented after fluid bolus was completed at [Date/Time] Must include vital signs, cardiopulmonary exam, capillary refill, peripheral pulse evaluation, skin exam [ ] Initiate vasopressor therapy if persistent hypotension after adequate fluid bolus Discharge Plan Departure Patient Disposition: Admitted as Observation Clinical Impression: Myalgia Sickle cell anemia Qualifiers: Sickle-cell associated disorders: with unspecified crisis Qualified Code(s): D 57.00 - Hb-SS disease with crisis, unspecified Fever Qualifiers: Fever type: unspecified Qualified Code(s): R50.9 - Fever, unspecified Leukocytosis Qualifiers: Leukocytosis type: unspecified Qualified Code(s): D72.829 - Elevated white blood cell count, unspecified Admit Date/Time: 03/02/25 23:36 Admit Provider: Ra Ritchie
[2025-03-02] MEDS: ONDANSETRON 4 MG/2 ML INJ IV (19:34)
[2025-03-02] MEDS: HYDROMORPHONE 1 MG INJ IV ×2 (19:34→21:05)
[2025-03-02] MEDS: ACETAMINOPHEN 325 MG TABLET 975 MG PO (19:35)
[2025-03-02] MEDS: cefTRIAXone 2,000 MG in SODIUM CHLORIDE 0.9% 100 ML 200 MG IV (19:37)
[2025-03-02 20:18] LABS: Appearance Urine UA CLEAR; Bilirubin Urine UA NEGATIVE (NEGATIVE); Color Urine UA YELLOW; Glucose Urine UA NEGATIVE (Negative); Ketones Urine UA NEGATIVE (NEGATIVE); Leukocyte Esterase Urine UA NEGATIVE (NEGATIVE); Nitrite Urine UA NEGATIVE (Negative); Occult Blood Urine UA NEGATIVE (Negative); Protein Urine UA NEGATIVE (Negative); Specific Gravity Urine UA 1.010 (1.000-1.035); Urobilinogen Urine UA 4.0 E.U./dL (0.2); pH Urine UA 7.0 (4.5-8.0)
[2025-03-02 20:24] LABS: Culture Indicated Urine Cult Not Indicated
[2025-03-02 20:35] LABS: Coronavirus NL 63 Not Detected (Not Detect); SARS- CoV-2 Not Detected (Not Detecte)
--- NOTE | 2025-03-02 21:45 | DI.CT.S_ITS ---
PROCEDURE: CT CHEST ABD PEL W CON INDICATIONS: sepsis, unclear source TECHNIQUE: After the administration of intravenous contrast, 5 mm thick sections acquired from the lung apices to the symphysis. 5 mm coronal and sagittal reformats were performed, with additional 7 mm MIP reformats through the lungs. For radiation dose reduction, the following was used: automated exposure control, adjustment of mA and/or kV according to patient size. COMPARISON: None. FINDINGS: Image quality: Excellent. CHEST: Lower Neck: No enlarged lymph nodes. Thyroid: No thyroid nodules which require sonographic follow up, per consensus guidelines. Axillae: No enlarged lymph nodes. Chest Wall: Unremarkable. Lungs and Pleura: No pneumothorax or pleural effusions. There are a few solid pulmonary nodules in the right upper lobe with central nodularity and peripheral ground- glass. For instance, the 1.3 by 1.3 centimeter nodule in the posterior right upper lobe (series 6, image 123) and the 0.9 x 0.9 centimeter nodule in the anterior right upper lobe (series 6, image 125). There are peripheral ground-glass opacities in the lower lobes. Heart: Heart size is normal. No pericardial effusion. Thoracic Vessels: The aorta and pulmonary arteries demonstrate normal size. No large filling defects within the opacified pulmonary arteries. Mediastinum and [place]: No enlarged lymph nodes. Esophagus: No wall thickening. No hiatal hernia. ABDOMEN: Liver: No solid mass. Gallbladder: No radiopaque gallstones or wall thickening. Biliary ducts: No biliary dilation. Pancreas: No ductal dilation. Spleen: Spleen is absent. Adrenal Glands: No adrenal nodules. Kidneys and Ureters: No hydronephrosis. No solid mass. No complex renal cystic lesion which requires follow up. Stomach and Bowel: Normal colonic caliber, without significant wall thickening. Peritoneum: No abnormal intraperitoneal fluid. No free air. Ventral Wall: No significant ventral hernia. Abdominal Nodes: No retroperitoneal or mesenteric adenopathy by size criteria. Vessels: Aorta and inferior vena cava are normal in size. PELVIS: Pelvic Organs: Unremarkable. Bladder: No bladder wall thickening, accounting for underdistention. Pelvic Nodes: No enlarged lymph nodes. Miscellaneous: No inguinal hernias are seen. Bones: Right total hip arthroplasty. Severe a vascular necrosis of the left hip, with bony deformity. Overall diffuse heterogeneous appearance of the bone marrow. IMPRESSION: A few right upper lobe solid nodules with peripheral ground-glass. Findings can be seen in the setting of atypical infection, including angio invasive fungal infection. Peripheral ground-glass opacities in the lower lobes, which can be seen in the setting of pulmonary micro infarcts given sickle cell anemia. Severe osteonecrosis of the left hip, with bony deformity. Diffuse heterogeneous appearance of the bones, consistent with sickle cell anemia. Findings discussed with Dr. Pang at time of dictation. Dictated by: Dominik Nguyen M.D. on 03/02/2025 at 22:31 Approved by: Dominik Nguyen M.D. on 03/02/2025 at 22:36
[2025-03-03] VITALS (7 sets, daily range): BP systolic 103–118; BP diastolic 50–67; PULSE 53–61; RESP 12–33; TEMP 35.8–36.4; O2SAT 93–99; BMI 21.5
[2025-03-03] MEDS: SODIUM CHLORIDE 0.45% 1,000 ML 100 ML IV (00:40)
[2025-03-03] MEDS: SODIUM CHLORIDE 0.9% 1,000 ML 100 ML IV ×3 (01:24→18:29)
--- NOTE | 2025-03-03 01:35 | PM.HP.1 ---
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 On each visit with rising leukocytosis. Extensive testing w/o obvious source. CT showing few RUL nodules. Covered empirically with Rocephin and placed in observation for further work up. [facility] Medical History (Updated 03/03/25 @ 02:06 by Ra Cruz MD) History of CVA (cerebrovascular accident) Vitamin D deficiency PTSD (post-traumatic stress disorder) Depression Anxiety Seizure Anemia Avascular necrosis of bone Contracture, left elbow Contracture, left hand CVA (cerebral vascular accident) Sickle cell anemia Surgical History History of shoulder surgery 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 Family History Father Cancer Sickle cell trait Lupus Mother Sickle cell trait Brother Sickle cell trait Social History household members: significant other alcohol intake: current Meds Home Medications and Allergies Home Medications ?Medication ?Instructions ?Recorded ?Confirmed ?Type ondansetron 4 mg disintegrating 4 mg PO Q8H PRN nausea and 10/02/24 03/03/25 Rx tablet vomiting #20 tabs cholecalciferol (vitamin D3) 10 20 mcg (2 x 10 mcg (400 unit)) PO 10/25/24 03/03/25 Rx mcg (400 unit) capsule DAILY #180 caps albuterol sulfate 90 mcg/actuation 2 puff inhalation Q6H PRN wheezing 11/18/24 03/03/25 History aerosol inhaler naloxone 4 mg/actuation nasal spray 1 spray intranasal PRN PRN Opioid 11/24/24 03/03/25 Rx Overdose #4 ea duloxetine 60 mg capsule,delayed 60 mg PO DAILY #90 caps 04/23/25 07/21/25 Rx release hydroxyurea (sickle cell) 400 mg 400 mg PO DAILY #90 caps 01/12/25 03/03/25 Rx capsule hydrocodone 5 mg-acetaminophen 325 1 tab PO BEDTIME PRN pain #15 tabs 01/16/25 03/03/25 Rx mg tablet hydrocodone 5 mg-acetaminophen 325 1 tab PO Q4-6H PRN pain #20 tabs 02/02/25 03/03/25 Rx mg tablet amoxicillin 500 mg capsule 500 mg PO BID 10 days #20 caps 03/01/25 03/03/25 Rx Allergies Allergy/AdvReac Type Severity Reaction Status Date / Time No Known Drug Allergies Allergy Verified 02/25/25 11:36 Review of Systems Review of Systems Narrative: General - fever, w/o chills, w/o swats RS - cough, mild shortness of breath, sore throat, chest wall pain CVS - w/o palpitations GI - nausea. Without diarrhea, constipation, vomiting or abdominal pain. Skin - w/o rashes UG - w/o dysuria Exam Vital Signs (past 8 hours): - 03/02/25 18:13 03/02/25 18:43 03/02/25 20:01 Temperature Pulse Rate 95 H 95 H 85 Respiratory Rate 23 17 Blood Pressure 97/57 L Pulse Oximetry 98 97 96 Oxygen Delivery Method Room Air Oxygen Flow Rate 03/02/25 20:30 03/02/25 20:30 03/02/25 21:00 Temperature Pulse Rate 76 74 Respiratory Rate 21 18 Blood Pressure 101/56 L Pulse Oximetry 95 94 Oxygen Delivery Method Oxygen Flow Rate 03/02/25 21:00 03/02/25 21:30 03/02/25 21:30 Temperature Pulse Rate 72 Respiratory Rate 17 Blood Pressure 100/55 L 102/49 L Pulse Oximetry 95 Oxygen Delivery Method Oxygen Flow Rate 03/02/25 22:03 03/02/25 22:30 03/02/25 23:00 Temperature 97.8 F Pulse Rate 64 68 62 Respiratory Rate 22 Blood Pressure Pulse Oximetry 96 96 95 Oxygen Delivery Method Oxygen Flow Rate 03/02/25 23:20 03/02/25 23:20 03/02/25 23:30 Temperature Pulse Rate 65 62 Respiratory Rate 28 H 31 H Blood Pressure 102/62 Pulse Oximetry 97 97 Oxygen Delivery Method Oxygen Flow Rate 03/02/25 23:30 03/03/25 00:00 03/03/25 00:00 Temperature Pulse Rate 61 Respiratory Rate 33 H Blood Pressure 99/56 L 103/58 L Pulse Oximetry 96 Oxygen Delivery Method Room Air Oxygen Flow Rate 03/03/25 00:39 Temperature 96.9 F L Pulse Rate 60 Respiratory Rate 16 Blood Pressure 107/50 L Pulse Oximetry 94 Oxygen Delivery Method Oxygen Flow Rate 0 Oxygen Delivery Method Room Air Oxygen Flow Rate 0 Narrative Exam Narrative: General - in no distress, laying in bed HEENT - normocephalic, w/o pharyngitis, supple neck RS - few rhonchi on the right, not wheezy CVS - RRR Neuro - Lt arm spastic paresis, lucid, appropriate mood and affect Objective ECG Impression: NSR 93 1st degree AV block, IL 256 ms QTc [address] ABDOMEN / PELVIS / CHEST: Radiologist's impression: There are a few solid pulmonary nodules in the right upper lobe with central nodularity and peripheral ground-glass. s/p splenectomy Rt hip avascular necrosis Labs 03/02/25 17:36 03/02/25 17:36 Labs: Laboratory Results - last 24 hr 03/02/25 03/02/25 03/02/25 17:36 19:09 19:09 WBC 24.4 H RBC 3.73 L Hgb 9.2 L Hct 27.6 L MCV 73.9 L MCH 24.7 L MCHC 33.5 RDW 20.0 H Plt Count 286 Neut % (Auto) Not Reportable Lymph % (Auto) Not Reportable [place] % (Auto) Not Reportable Eos % (Auto) Not Reportable Baso % (Auto) Not Reportable Lymph # (Auto) Not Reportable [place] # (Auto) Not Reportable Baso # (Auto) Not Reportable Total Counted 100 Seg Neutrophils % 69.0 Band Neutrophils % 3.0 Lymphocytes % (Manual) 22.0 L Monocytes % (Manual) 4.0 Eosinophils % (Manual) 1.0 L Basophils % (Manual) 1.0 Neutrophils # (Manual) 61805 H Nucleated RBCs 2 H RBC Morphology See below Anisocytosis 2+ H Sickle Cells 1+ H Target Cells 2+ H Schistocytes 1+ H PT 16.2 H INR 1.4 H APTT 26 Sodium 136 L Potassium 3.9 Chloride 105 Carbon Dioxide 22 BUN 6 L Creatinine 0.68 Estimated GFR > 60 BUN/Creatinine Ratio 8.8 Glucose 109 H Lactate 1.9 Calcium 8.1 L Total Bilirubin 3.4 H AST 53 ALT 24 Alkaline Phosphatase 69 Total Protein 7.9 Albumin 4.3 Globulin 3.6 Albumin/Globulin Ratio 1.2 Lipase 77 Procalcitonin 0.137 Urine Color Urine Appearance Urine pH Ur Specific [place] Urine Protein Urine Glucose (UA) Urine Ketones Urine Occult Blood Urine Nitrate Urine Bilirubin Urine Urobilinogen Ur Leukocyte Esterase Urine RBC Urine WBC Ur Squamous Epith Cells Urine Bacteria Ur Culture Indicated? Vol Urine Centrifuged Chlamy pneumoniae PCR Not detected Adenovirus (PCR) Not detected B. pertussis DNA (PCR) Not detected B.parapertussis DNA PCR Not detected Coronavirus OC43 (PCR) Not detected Coronavirus HKU1 (PCR) Not detected Coronavirus 229E (PCR) Not detected SARS-CoV-2 (PCR) Cancelled Not detected Coronavirus NL63 (PCR) Not detected Monoscreen Negative Human Metapneumovir PCR Not detected Influenza A (RT-PCR) Cancelled Influenza Type A (PCR) Not detected Influenza B (RT-PCR) Cancelled Influenza Type B (PCR) Not detected M. pneumoniae (PCR) Not detected Parainfluenza 1 (PCR) Not detected Parainfluenza 2 (PCR) Not detected Parainfluenza 3 (PCR) Not detected Parainfluenza 4 (PCR) Not detected RSV (PCR) Cancelled Entero/Rhino (PCR) 03/02/25 03/02/25 19:09 20:00 WBC RBC Hgb Hct MCV MCH MCHC RDW Plt Count Neut % (Auto) Lymph % (Auto) [place] % (Auto) Eos % (Auto) Baso % (Auto) Lymph # (Auto) [place] # (Auto) Baso # (Auto) Total Counted Seg Neutrophils % Band Neutrophils % Lymphocytes % (Manual) Monocytes % (Manual) Eosinophils % (Manual) Basophils % (Manual) Neutrophils # (Manual) Nucleated RBCs RBC Morphology Anisocytosis Sickle Cells Target Cells Schistocytes PT INR APTT Sodium Potassium Chloride Carbon Dioxide BUN Creatinine Estimated GFR BUN/Creatinine Ratio Glucose Lactate Calcium Total Bilirubin AST ALT Alkaline Phosphatase Total Protein Albumin Globulin Albumin/Globulin Ratio Lipase Procalcitonin Urine Color Yellow Urine Appearance Clear Urine pH 7.0 Ur Specific [place] 1.010 Urine Protein Negative Urine Glucose (UA) Negative Urine Ketones Negative Urine Occult Blood Negative Urine Nitrate Negative Urine Bilirubin Negative Urine Urobilinogen 4.0 H Ur Leukocyte Esterase Negative Urine RBC 0-1/hpf Urine WBC 0-1/hpf Ur Squamous Epith Cells 0-1 /hpf Urine Bacteria Occasional (0-1) Ur Culture Indicated? Cult not indicated Vol Urine Centrifuged 10ml (spun) Chlamy pneumoniae PCR Adenovirus (PCR) B. pertussis DNA (PCR) B.parapertussis DNA PCR Coronavirus OC43 (PCR) Coronavirus HKU1 (PCR) Coronavirus 229E (PCR) SARS-CoV-2 (PCR) Coronavirus NL63 (PCR) Monoscreen Human Metapneumovir PCR Influenza A (RT-PCR) Influenza Type A (PCR) Influenza B (RT-PCR) Influenza Type B (PCR) M. pneumoniae (PCR) Parainfluenza 1 (PCR) Parainfluenza 2 (PCR) Parainfluenza 3 (PCR) Parainfluenza 4 (PCR) RSV (PCR) Not detected Entero/Rhino (PCR) Not detected Assessment & Plan Assessment and plan (1) Fever: Qualifiers: Fever type: unspecified Qualified Code(s): R50.9 - Fever, unspecified Status: Acute (2) Sickle cell anemia: Qualifiers: Sickle-cell associated disorders: with unspecified crisis Qualified Code(s): D57.00 - Hb-SS disease with crisis, unspecified Status: Acute (3) Depression: Qualifiers: Active/Remission status: remission status unspecified Depression Type: major depressive disorder Major depression recurrence: unspecified whether recurrent Qualified Code(s): F32.9 - Major depressive disorder, single episode, unspecified Status: Acute (4) Anxiety: Status: Acute (5) History of CVA (cerebrovascular accident): Status: Acute Assessment & Plan narrative: Fever / respiratory infection - had empiric Rocephin in the ED for possible PNA - r/o aspergillosis - sputum, Ab pending - has several nodules in RU lung, s/p splenectomy - at risk - empiric Tx with voriconazole to be considered if pending tests late or non-diagnostic Sickle cell disease - not in crisis - stable anemia and bilirubin - hydroxyurea, [place] - 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 Patient located at [place], [place]. Provider located in [place]. Time-Based Coding :: [TOTAL MINUTES] spent with patient and on the chart (including review of chart, obtaining history, exam, reviewing outside data, placing orders, documenting exam and treatment plan, and counseling patient) on [DATE]. Quality VTE Deep Vein Thrombosis/Pulmonary Embolism Present on Admission: No
[2025-03-03] MEDS: HYDROCODONE/ACET 5/325 TABLET 1 TAB PO ×3 (02:03→12:04)
[2025-03-03 05:50] LABS: Hematocrit 24.0 % (41-53); Hemoglobin 8.1 g/dL (13.5-17.5); Mean Corpuscular HGB Conc 33.6 % (30-36); Mean Corpuscular Hemoglobin 24.7 PG (26-34); Mean Corpuscular Volume 73.4 fL (80-100); Platelet Count 221 X10^3/uL (150-400)
[2025-03-03 05:51] LABS: Add Manual Diff / Slide Review YES
[2025-03-03 05:55] LABS: Calcium 7.2 mg/dL (8.4-10.2); Carbon Dioxide 21 mmol/L (22-32); Chloride 111 mmol/L (98-107); Estimated Glomerular Filt Rate > 60 mL/min (>60); Glucose 77 mg/dL (70-99); HEMOLYSIS < 15 (0-50); Potassium 3.6 mmol/L (3.4-5.1); Sodium 138 mmol/L (137-145)
[2025-03-03 05:59] LABS: Blood Urea Nitrogen 2 mg/dL (9-20)
[2025-03-03 06:07] LABS: Anisocytosis 2+; Band Neutrophils Percent 4.0 % (3-7); Eosinophils Percent Manual 2.0 % (2-4); Lymphocytes Percent Manual 16.0 % (25-45); Monocytes Percent Manual 6.0 % (2-11); Neutrophils Absolute Manual 16264 /uL (3000-5900); Segmented Neutrophils Percent 72.0 % (38-70); Total Cells Counted 100
[2025-03-03 06:08] LABS: Sickle Cells 1+
[2025-03-03 06:09] LABS: Target Cells 2+
[2025-03-03 06:10] LABS: Schistocytes 1+
[2025-03-03 06:13] LABS: Microcytosis 1+
--- NOTE | 2025-03-03 06:14 | PC.ADMIT ---
[address] 30[address] Admission Note: The patient,Lucretia Keller,24 y/o, was given written information regarding hospital policies, unit procedures and contact persons. Patient's smoking status: . Vital Signs - 8 hr 03/02/25 22:30 03/02/25 23:00 03/02/25 23:20 Temperature 97.8 F Pulse Rate 68 62 65 Respiratory Rate 28 H Blood Pressure Pulse Oximetry 96 95 97 Oxygen Delivery Method Oxygen Flow Rate 03/02/25 23:20 03/02/25 23:30 03/02/25 23:30 Temperature Pulse Rate 62 Respiratory Rate 31 H Blood Pressure 102/62 99/56 L Pulse Oximetry 97 Oxygen Delivery Method Oxygen Flow Rate 03/03/25 00:00 03/03/25 00:00 03/03/25 00:39 Temperature 96.9 F L Pulse Rate 61 60 Respiratory Rate 33 H 16 Blood Pressure 103/58 L 107/50 L Pulse Oximetry 96 94 Oxygen Delivery Method Room Air Oxygen Flow Rate 0 03/03/25 00:45 03/03/25 05:36 Temperature Pulse Rate 53 L Respiratory Rate 16 Blood Pressure 117/65 Pulse Oximetry 98 Oxygen Delivery Method Room Air Oxygen Flow Rate 0 Patient admitted to room 222 at 0030. A/Ox3, soft-spoken. VSS. 98% on RA. NS @ 100ml/hr. [place] given q4h prn for back/chest/leg pain. Minimal dry cough, sample cup at bedside for sputum.
--- NOTE | 2025-03-03 07:50 | P.PN_ITS ---
Subjective Subjective Interval history: S: He was feeling better today, some nasal congestion and minimal cough. He did provide a sputum culture which is pending. He denies any nausea in his having only minimal chest pain. Exam Vital Signs (past 8 hours): - 03/03/25 00:00 03/03/25 00:00 03/03/25 00:39 Temperature 96.9 F L Pulse Rate 61 60 Respiratory Rate 33 H 16 Blood Pressure 103/58 L 107/50 L Pulse Oximetry 96 94 Oxygen Delivery Method Room Air Oxygen Flow Rate 0 03/03/25 00:45 03/03/25 05:36 Temperature Pulse Rate 53 L Respiratory Rate 16 Blood Pressure 117/65 Pulse Oximetry 98 Oxygen Delivery Method Room Air Oxygen Flow Rate 0 Oxygen Delivery Method Room Air Oxygen Flow Rate 0 Narrative Exam Narrative: NAD, alert and oriented. Fluent speech. No oxygen and he appears well. Lungs are clear, normal rate and effort. Heart is regular, no murmur gallop or rub. Abdomen is soft, non distended. Extremities are free of edema. Objective Imaging CT C/A/P: : Radiologist's impression: A few right upper lobe solid nodules with peripheral ground-glass. Findings can be seen in the setting of atypical infection, including angio invasive fungal infection. Peripheral ground-glass opacities in the lower lobes, which can be seen in the setting of pulmonary micro infarcts given sickle cell anemia. Severe osteonecrosis of the left hip, with bony deformity. Diffuse heterogeneous appearance of the bones, consistent with sickle cell anemia. Labs 03/03/25 05:30 03/03/25 05:30 Labs: Laboratory Results - last 24 hr 03/02/25 03/02/25 03/02/25 17:36 19:09 19:09 WBC 24.4 H RBC 3.73 L Hgb 9.2 L Hct 27.6 L MCV 73.9 L MCH 24.7 L MCHC 33.5 RDW 20.0 H Plt Count 286 Neut % (Auto) Not Reportable Lymph % (Auto) Not Reportable [place] % (Auto) Not Reportable Eos % (Auto) Not Reportable Baso % (Auto) Not Reportable Lymph # (Auto) Not Reportable [place] # (Auto) Not Reportable Baso # (Auto) Not Reportable Total Counted 100 Seg Neutrophils % 69.0 Band Neutrophils % 3.0 Lymphocytes % (Manual) 22.0 L Monocytes % (Manual) 4.0 Eosinophils % (Manual) 1.0 L Basophils % (Manual) 1.0 Neutrophils # (Manual) 86391 H Nucleated RBCs 2 H RBC Morphology See below Anisocytosis 2+ H Microcytosis Sickle Cells 1+ H Target Cells 2+ H Schistocytes 1+ H PT 16.2 H INR 1.4 H APTT 26 Sodium 136 L Potassium 3.9 Chloride 105 Carbon Dioxide 22 BUN 6 L Creatinine 0.68 Estimated GFR > 60 BUN/Creatinine Ratio 8.8 Glucose 109 H Lactate 1.9 Calcium 8.1 L Total Bilirubin 3.4 H AST 53 ALT 24 Alkaline Phosphatase 69 Total Protein 7.9 Albumin 4.3 Globulin 3.6 Albumin/Globulin Ratio 1.2 Lipase 77 Procalcitonin 0.137 Urine Color Urine Appearance Urine pH Ur Specific [place] Urine Protein Urine Glucose (UA) Urine Ketones Urine Occult Blood Urine Nitrate Urine Bilirubin Urine Urobilinogen Ur Leukocyte Esterase Urine RBC Urine WBC Ur Squamous Epith Cells Urine Bacteria Ur Culture Indicated? Vol Urine Centrifuged Chlamy pneumoniae PCR Not detected Adenovirus (PCR) Not detected B. pertussis DNA (PCR) Not detected B.parapertussis DNA PCR Not detected Coronavirus OC43 (PCR) Not detected Coronavirus HKU1 (PCR) Not detected Coronavirus 229E (PCR) Not detected SARS-CoV-2 (PCR) Cancelled Not detected Coronavirus NL63 (PCR) Not detected Monoscreen Negative Human Metapneumovir PCR Not detected Influenza A (RT-PCR) Cancelled Influenza Type A (PCR) Not detected Influenza B (RT-PCR) Cancelled Influenza Type B (PCR) Not detected M. pneumoniae (PCR) Not detected Parainfluenza 1 (PCR) Not detected Parainfluenza 2 (PCR) Not detected Parainfluenza 3 (PCR) Not detected Parainfluenza 4 (PCR) Not detected RSV (PCR) Cancelled Entero/Rhino (PCR) 03/02/25 03/02/25 03/03/25 19:09 20:00 05:30 WBC 21.4 H RBC 3.27 L Hgb 8.1 L Hct 24.0 L MCV 73.4 L MCH 24.7 L MCHC 33.6 RDW 19.8 H Plt Count 221 Neut % (Auto) Not Reportable Lymph % (Auto) Not Reportable [place] % (Auto) Not Reportable Eos % (Auto) Not Reportable Baso % (Auto) Not Reportable Lymph # (Auto) Not Reportable [place] # (Auto) Not Reportable Baso # (Auto) Not Reportable Total Counted 100 Seg Neutrophils % 72.0 H Band Neutrophils % 4.0 Lymphocytes % (Manual) 16.0 L Monocytes % (Manual) 6.0 Eosinophils % (Manual) 2.0 Basophils % (Manual) Neutrophils # (Manual) 77818 H Nucleated RBCs 1 H RBC Morphology See below Anisocytosis 2+ H Microcytosis 1+ H Sickle Cells 1+ H Target Cells 2+ H Schistocytes 1+ H PT INR APTT Sodium 138 Potassium 3.6 Chloride 111 H Carbon Dioxide 21 L BUN 2 L Creatinine 0.55 L Estimated GFR > 60 BUN/Creatinine Ratio 3.6 L Glucose 77 Lactate Calcium 7.2 L Total Bilirubin AST ALT Alkaline Phosphatase Total Protein Albumin Globulin Albumin/Globulin Ratio Lipase Procalcitonin Urine Color Yellow Urine Appearance Clear Urine pH 7.0 Ur Specific [place] 1.010 Urine Protein Negative Urine Glucose (UA) Negative Urine Ketones Negative Urine Occult Blood Negative Urine Nitrate Negative Urine Bilirubin Negative Urine Urobilinogen 4.0 H Ur Leukocyte Esterase Negative Urine RBC 0-1/hpf Urine WBC 0-1/hpf Ur Squamous Epith Cells 0-1 /hpf Urine Bacteria Occasional (0-1) Ur Culture Indicated? Cult not indicated Vol Urine Centrifuged 10ml (spun) Chlamy pneumoniae PCR Adenovirus (PCR) B. pertussis DNA (PCR) B.parapertussis DNA PCR Coronavirus OC43 (PCR) Coronavirus HKU1 (PCR) Coronavirus 229E (PCR) SARS-CoV-2 (PCR) Coronavirus NL63 (PCR) Monoscreen Human Metapneumovir PCR Influenza A (RT-PCR) Influenza Type A (PCR) Influenza B (RT-PCR) Influenza Type B (PCR) M. pneumoniae (PCR) Parainfluenza 1 (PCR) Parainfluenza 2 (PCR) Parainfluenza 3 (PCR) Parainfluenza 4 (PCR) RSV (PCR) Not detected Entero/Rhino (PCR) Not detected PFSH Medical History History of CVA (cerebrovascular accident) Vitamin D deficiency PTSD (post-traumatic stress disorder) Depression Anxiety Seizure Anemia Avascular necrosis of bone Contracture, left elbow Contracture, left hand CVA (cerebral vascular accident) Sickle cell anemia Surgical History History of shoulder surgery 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 Family History Father Cancer Sickle cell trait Lupus Mother Sickle cell trait Brother Sickle cell trait Social History household members: significant other alcohol intake: current Assessment & Plan Assessment & Plan narrative: 1. Pneumonia and fever with leukocytosis. Improving. - had empiric Rocephin in the ED for possible PNA - r/o aspergillosis - sputum, Ab pending - has several nodules in RU lung, s/p splenectomy - at risk - empiric Tx with voriconazole to be considered if pending tests late or non- diagnostic Sickle cell disease, active. 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 - Cymbalta PLAN: -continue antibiotics pending sputum culture. -IV Dilaudid was requested for pain control, this is ordered. -he appears clinically well. He requires another night in the hospital and IV antibiotics while cultures were pending. DVT prophylaxis - Lovenox Time-Based Coding :: [TOTAL MINUTES] spent with patient and on the chart (including review of chart, obtaining history, exam, reviewing outside data, placing orders, documenting exam and treatment plan, and counseling patient) on [DATE]. Quality VTE Deep Vein Thrombosis/Pulmonary Embolism Present on Admission: No
[2025-03-03] MEDS: CHOLECALCIFEROL (VITAMIN D3) 400 UNIT TABLET 800 UNIT PO (09:45)
[2025-03-03] MEDS: DULOXETINE 30 MG CAPSULE 60 MG PO (09:45)
[2025-03-03] MEDS: ONDANSETRON 4 MG ODT PO (13:06)
--- NOTE | 2025-03-03 15:53 | CM.DANOTE ---
Patient is a 24 yo male who was admitted INPT Status on 03/02/25 for Fever/PNA. Pt has [employer] for insurance and his PCP is Jen Albarran. EMR was reviewed. Per MD, pt with complicated hx with lots of ED visits and admissions for Sickle Cell Crisis but admitted for increased white count and likely pneumonia/resp infection and to consult with Finger Lift Operator today and likely couple days of IV abx before discharge home. 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 Plan: SW to follow for further bedside assessment and to confirm safe discharge home after IV abx and any further identified discharge planning needs. 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 No Advance Directives No on File History Provided By Patient,Medical Record Has Patient been No admitted in last 30 days? Comment multiple ED visits this month Prior Living Apartment/Condo Arrangements Household Members significant other Type of Drives own vehicle transporation used prior to admit Independent with ADL Yes 's Is patient alert and Yes oriented? Caregiver for No Another Barriers to No Discharge Discharge Plan Home Transportation Sig Other to transport Arrangement Referrals Initiated None needed Whiteboard Updated Yes in Patient Room with name and ext. # of Rental Clerk Review Status In Process Please Provide Date 03/03/25 Initial DC Assessment Was Performed Next Review Type Continued Stay Review
[2025-03-03] MEDS: ACETAMINOPHEN 325 MG TABLET 975 MG PO (16:08)
[2025-03-04] VITALS: BP 107/68; PULSE 52; RESP 14; TEMP 35.9; O2SAT 97
[2025-03-04 04:00] VITALS: BP 113/77; PULSE 58; RESP 15; TEMP 35.9; O2SAT 97
[2025-03-04] MEDS: SODIUM CHLORIDE 0.9% 1,000 ML 100 ML IV ×2 (04:40→14:30)
[2025-03-04 08:00] VITALS: BP 113/60; PULSE 59; RESP 12; TEMP 36.5; O2SAT 97
[2025-03-04] MEDS: CHOLECALCIFEROL (VITAMIN D3) 400 UNIT TABLET 800 UNIT PO (08:59)
[2025-03-04] MEDS: ACETAMINOPHEN 325 MG TABLET 975 MG PO ×2 (08:59→17:18)
[2025-03-04] MEDS: DULOXETINE 30 MG CAPSULE 60 MG PO (09:00)
--- NOTE | 2025-03-04 09:08 | P.PN_ITS ---
Subjective Subjective Date Patient Seen: 03/04/25 Exam Vital Signs (past 8 hours): - 03/04/25 04:00 03/04/25 08:00 Temperature 96.7 F L 97.7 F Pulse Rate 58 L 59 L Respiratory Rate 15 12 Blood Pressure 113/77 113/60 Pulse Oximetry 97 97 Oxygen Flow Rate 0 0 Oxygen Delivery Method Room Air Oxygen Flow Rate 0 Objective Labs 03/03/25 05:30 03/03/25 05:30 [facility] Medical History History of CVA (cerebrovascular accident) Vitamin D deficiency PTSD (post-traumatic stress disorder) Depression Anxiety Seizure Anemia Avascular necrosis of bone Contracture, left elbow Contracture, left hand CVA (cerebral vascular accident) Sickle cell anemia Surgical History History of shoulder surgery 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 Family History Father Cancer Sickle cell trait Lupus Mother Sickle cell trait Brother Sickle cell trait Social History household members: significant other alcohol intake: current Assessment & Plan Assessment & Plan narrative: 1. Pneumonia and fever with leukocytosis. Improving. - had empiric Rocephin in the ED for possible PNA - r/o aspergillosis - sputum, Ab pending - has several nodules in RU lung, s/p splenectomy - at risk - empiric Tx with voriconazole to be considered if pending tests late or non- diagnostic Sickle cell disease, active. 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 - Cymbalta PLAN: -continue antibiotics pending sputum culture. -IV Dilaudid was requested for pain control, this is ordered. -he appears clinically well. He requires another night in the hospital and IV antibiotics while cultures were pending. DVT prophylaxis - Lovenox Time-Based Coding :: [TOTAL MINUTES] spent with patient and on the chart (including review of chart, obtaining history, exam, reviewing outside data, placing orders, documenting exam and treatment plan, and counseling patient) on [DATE]. Quality VTE Deep Vein Thrombosis/Pulmonary Embolism Present on Admission: No
[2025-03-04 12:00] VITALS: BP 119/69; PULSE 51; RESP 12; TEMP 36.5; O2SAT 98
[2025-03-04 16:00] VITALS: BP 118/76; PULSE 53; RESP 12; TEMP 35.8; O2SAT 98
[2025-03-04 19:39] VITALS: BP 118/73; PULSE 55; RESP 18; TEMP 36.1; O2SAT 99
[2025-03-05 00:25] VITALS: BP 98/57; PULSE 57; RESP 18; TEMP 35.8; O2SAT 98
[2025-03-05] MEDS: SODIUM CHLORIDE 0.9% 1,000 ML 100 ML IV ×2 (00:45→10:11)
[2025-03-05 04:00] VITALS: BP 117/80; PULSE 56; RESP 18; TEMP 36; O2SAT 98
[2025-03-05 04:15] LABS: Hematocrit 24.7 % (41-53); Hemoglobin 8.5 g/dL (13.5-17.5); Mean Corpuscular HGB Conc 34.6 % (30-36); Mean Corpuscular Hemoglobin 25.3 PG (26-34); Mean Corpuscular Volume 73.1 fL (80-100); Platelet Count 225 X10^3/uL (150-400)
[2025-03-05 04:17] LABS: Add Manual Diff / Slide Review YES
[2025-03-05 04:39] LABS: Atypical Lymphocytes Percent 1.0 %; Band Neutrophils Percent 2.0 % (3-7); Basophils Percent Manual 2.0 % (0-1); Lymphocytes Percent Manual 28.0 % (25-45); Monocytes Percent Manual 9.0 % (2-11); Neutrophils Absolute Manual 7320 /uL (3000-5900); Segmented Neutrophils Percent 58.0 % (38-70); Total Cells Counted 100
[2025-03-05 04:40] LABS: Anisocytosis 1+; Schistocytes 1+; Sickle Cells 1+; Target Cells 1+
[2025-03-05] MEDS: ONDANSETRON 4 MG ODT PO (06:12)
[2025-03-05 08:00] VITALS: BP 110/70; PULSE 66; RESP 17; TEMP 35.9; O2SAT 98
[2025-03-05] MEDS: CHOLECALCIFEROL (VITAMIN D3) 400 UNIT TABLET 800 UNIT PO (08:23)
[2025-03-05] MEDS: DULOXETINE 30 MG CAPSULE 60 MG PO (08:23)
[2025-03-05] MEDS: HYDROCODONE/ACET 5/325 TABLET 2 TAB PO ×2 (10:10→14:37)
--- NOTE | 2025-03-05 11:03 | CM.DPC ---
DCP Cont. Reviewed EMR and team rounds for pt's medical status and updates. Per Hospitalist, pt will need 1-more day of IV antibiotics before he's ready for d/c. No further needs anticipated for CM assistance.
[2025-03-05 12:00] VITALS: BP 112/67; PULSE 62; RESP 14; TEMP 36; O2SAT 99
--- NOTE | 2025-03-05 13:09 | P.PN_ITS ---
Subjective Subjective Interval history: Summary: 24-year-old male with sickle cells admitted for fever and pneumonia. He was improved on IV antibiotics in his negative cultures. He was still having some pain, this is mostly the back. No cough or dyspnea. Subjective: Other than pain, he was improved. He does not feel like he is quite ready to return home but we will try to convert from IV pain meds to oral medications today. Exam Vital Signs (past 8 hours): - 03/05/25 08:00 03/05/25 12:00 Temperature 96.7 F L 96.8 F L Pulse Rate 66 62 Respiratory Rate 17 14 Blood Pressure 110/70 112/67 Pulse Oximetry 98 99 Oxygen Flow Rate 0 0 Oxygen Delivery Method Room Air Oxygen Flow Rate 0 Narrative Exam Narrative: NAD, alert and oriented. Fluent speech. Lungs are clear, normal rate and effort. Heart is regular, no murmur gallop or rub. Abdomen is soft, non distended. Extremities are free of edema. Contracted left arm. Objective Imaging CT Chest Abdomen Pelvis:: Radiologist's impression: A few right upper lobe solid nodules with peripheral ground-glass. Findings can be seen in the setting of atypical infection, including angio invasive fungal infection. Peripheral ground-glass opacities in the lower lobes, which can be seen in the setting of pulmonary micro infarcts given sickle cell anemia. Severe osteonecrosis of the left hip, with bony deformity. Diffuse heterogeneous appearance of the bones, consistent with sickle cell anemia. Labs 03/05/25 03:50 03/03/25 05:30 Labs: Laboratory Results - last 24 hr 03/05/25 03:50 WBC 12.2 H RBC 3.37 L Hgb 8.5 L Hct 24.7 L MCV 73.1 L MCH 25.3 L MCHC 34.6 RDW 20.1 H Plt Count 225 Neut % (Auto) Not Reportable Lymph % (Auto) Not Reportable [place] % (Auto) Not Reportable Eos % (Auto) Not Reportable Baso % (Auto) Not Reportable Lymph # (Auto) Not Reportable [place] # (Auto) Not Reportable Baso # (Auto) Not Reportable Total Counted 100 Seg Neutrophils % 58.0 Band Neutrophils % 2.0 L Lymphocytes % (Manual) 28.0 Atypical Lymphs % 1.0 H Monocytes % (Manual) 9.0 Basophils % (Manual) 2.0 H Neutrophils # (Manual) 7320 H Nucleated RBCs 3 H RBC Morphology See below Anisocytosis 1+ H Sickle Cells 1+ H Target Cells 1+ H Schistocytes 1+ H PFSH Medical History History of CVA (cerebrovascular accident) Vitamin D deficiency PTSD (post-traumatic stress disorder) Depression Anxiety Seizure Anemia Avascular necrosis of bone Contracture, left elbow Contracture, left hand CVA (cerebral vascular accident) Sickle cell anemia Surgical History History of shoulder surgery 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 Family History Father Cancer Sickle cell trait Lupus Mother Sickle cell trait Brother Sickle cell trait Social History household members: significant other alcohol intake: current Assessment & Plan Assessment & Plan narrative: 1. Pneumonia and fever with leukocytosis. Improving. - had empiric Rocephin in the ED for possible PNA -blood and sputum cultures negative, respiratory PCR negative. 2. Sickle cell disease, stable. 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 Anxiety / Depression, stable. - Cymbalta 4. Mild Sickle pain syndrome, present on admission and active. PLAN: -continue IV antibiotics for another day. -transitioned from IV to oral pain meds today. -anticipate discharge on March 06. -Aspergillosis IgE pending. ELLIOT: 03/06. Time-Based Coding :: [TOTAL MINUTES] spent with patient and on the chart (including review of chart, obtaining history, exam, reviewing outside data, placing orders, documenting exam and treatment plan, and counseling patient) on [DATE]. Quality VTE Deep Vein Thrombosis/Pulmonary Embolism Present on Admission: No
--- NOTE | 2025-03-05 15:35 | PM.DS.1 ---
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 On each visit with rising leukocytosis. Extensive testing w/o obvious source. CT showing few RUL nodules. Covered empirically with Rocephin and placed in observation for further work up. Discharge Providers Provider Date of admission: 03/02/25 23:36 Discharge Date: 03/05/25 Primary care physician: OSMANY Wang- Consults: None Discharge provider: Arslan Belcher MD Summary Hospital Course Discharge Diagnosis: 1. Pneumonia and fever with leukocytosis. Improving. - had empiric Rocephin in the ED for possible PNA -blood and sputum cultures negative, respiratory PCR negative. 2. Sickle cell disease, stable. 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 Anxiety / Depression, stable. - Cymbalta 4. Mild Sickle pain syndrome, present on admission and active. Hospital Course: He was admitted with possible pneumonia with fever and leukocytosis and treated with empiric antibiotics. Respiratory PCR was negative. Sputum blood cultures were also negative. He improved symptomatically and his fever resolved. His white count corrected. He had a mild pain syndrome which improved and on the day of discharge he was able to control his pain with oral pain medications. He was felt to be stable for discharge with close follow up. He does have an aspergillosis study pending at the time of discharge. Status at Discharge Cognitive/behavioral status at discharge: oriented Functional status at discharge: independent ambulation Overall status at discharge: patient is back to baseline Exam Vital Signs (past 8 hours): - 03/05/25 08:00 03/05/25 12:00 Temperature 96.7 F L 96.8 F L Pulse Rate 66 62 Respiratory Rate 17 14 Blood Pressure 110/70 112/67 Pulse Oximetry 98 99 Oxygen Flow Rate 0 0 Oxygen Delivery Method Room Air Oxygen Flow Rate 0 Narrative Exam Narrative: NAD, alert and oriented. Fluent speech. Lungs are clear, normal rate and effort. Heart is regular, no murmur gallop or rub. Abdomen is soft, non distended. Extremities are free of edema. Contracted left upper extremity. Objective ECG Impression: ntervals [place] Rate: 93 P: 51 ND: 256 QRS: 27 QRSD: 94 T: 33 QT: 350 QTc: 435 Interpretive Statements Sinus rhythm with 1st degree AV block Imaging Chest x-ray: Radiologist's impression: No acute cardiopulmonary abnormality is seen. CT scan - chest: Radiologist's impression: CHEST: Lower Neck: No enlarged lymph nodes. Thyroid: No thyroid nodules which require sonographic follow up, per consensus guidelines. Axillae: No enlarged lymph nodes. Chest Wall: Unremarkable. Lungs and Pleura: No pneumothorax or pleural effusions. There are a few solid pulmonary nodules in the right upper lobe with central nodularity and peripheral ground-glass. For instance, the 1.3 by 1.3 centimeter nodule in the posterior right upper lobe (series 6, image 123) and the 0.9 x 0.9 centimeter nodule in the anterior right upper lobe (series 6, image 125). There are peripheral ground-glass opacities in the lower lobes. Heart: Heart size is normal. No pericardial effusion. Thoracic Vessels: The aorta and pulmonary arteries demonstrate normal size. No large filling defects within the opacified pulmonary arteries. Mediastinum and [place]: No enlarged lymph nodes. Esophagus: No wall thickening. No hiatal hernia. ABDOMEN: Liver: No solid mass. Gallbladder: No radiopaque gallstones or wall thickening. Biliary ducts: No biliary dilation. Pancreas: No ductal dilation. Spleen: Spleen is absent. Adrenal Glands: No adrenal nodules. Kidneys and Ureters: No hydronephrosis. No solid mass. No complex renal cystic lesion which requires follow up. Stomach and Bowel: Normal colonic caliber, without significant wall thickening. Peritoneum: No abnormal intraperitoneal fluid. No free air. Ventral Wall: No significant ventral hernia. Abdominal Nodes: No retroperitoneal or mesenteric adenopathy by size criteria. Vessels: Aorta and inferior vena cava are normal in size. PELVIS: Pelvic Organs: Unremarkable. Bladder: No bladder wall thickening, accounting for underdistention. Pelvic Nodes: No enlarged lymph nodes. Miscellaneous: No inguinal hernias are seen. Bones: Right total hip arthroplasty. Severe a vascular necrosis of the left hip, with bony deformity. Overall diffuse heterogeneous appearance of the bone marrow. IMPRESSION: A few right upper lobe solid nodules with peripheral ground-glass. Findings can be seen in the setting of atypical infection, including angio invasive fungal infection. Peripheral ground-glass opacities in the lower lobes, which can be seen in the setting of pulmonary micro infarcts given sickle cell anemia. Severe osteonecrosis of the left hip, with bony deformity. Diffuse heterogeneous appearance of the bones, consistent with sickle cell anemia. Labs 03/05/25 03:50 03/03/25 05:30 Labs: Laboratory Results - last 24 hr 03/05/25 03:50 WBC 12.2 H RBC 3.37 L Hgb 8.5 L Hct 24.7 L MCV 73.1 L MCH 25.3 L MCHC 34.6 RDW 20.1 H Plt Count 225 Neut % (Auto) Not Reportable Lymph % (Auto) Not Reportable [place] % (Auto) Not Reportable Eos % (Auto) Not Reportable Baso % (Auto) Not Reportable Lymph # (Auto) Not Reportable [place] # (Auto) Not Reportable Baso # (Auto) Not Reportable Total Counted 100 Seg Neutrophils % 58.0 Band Neutrophils % 2.0 L Lymphocytes % (Manual) 28.0 Atypical Lymphs % 1.0 H Monocytes % (Manual) 9.0 Basophils % (Manual) 2.0 H Neutrophils # (Manual) 7320 H Nucleated RBCs 3 H RBC Morphology See below Anisocytosis 1+ H Sickle Cells 1+ H Target Cells 1+ H Schistocytes 1+ H PFSH Medical History History of CVA (cerebrovascular accident) Vitamin D deficiency PTSD (post-traumatic stress disorder) Depression Anxiety Seizure Anemia Avascular necrosis of bone Contracture, left elbow Contracture, left hand CVA (cerebral vascular accident) Sickle cell anemia Surgical History History of shoulder surgery 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 Family History Father Cancer Sickle cell trait Lupus Mother Sickle cell trait Brother Sickle cell trait Social History household members: significant other alcohol intake: current Discharge Assessment & Plan Assessment and Plan Assessment: 1. Pneumonia and fever with leukocytosis. Improving. - had empiric Rocephin in the ED for possible PNA -blood and sputum cultures negative, respiratory PCR negative. Plan of Treatment: Discharge with a small number of Vicodin in his well cefdinir 300 mg b.i.d. for 5 additional days. Follow up with PCP, or return to ED for fevers or shortness a breath. Discharge Plan Discharge Plan Patient Disposition: Home Provider Discharge Comment: Stable for discharge home on oral antibiotics. Discharge orders & Medications Prescriptions: New cefdinir 300 mg capsule 300 mg PO BID Qty: 10 0RF Continued cholecalciferol (vitamin D3) 10 mcg (400 unit) capsule 20 mcg PO DAILY Qty: 180 0RF Rx Instructions: Start two capsules daily after 6 weeks of 1250mcg weekly dosing. duloxetine 60 mg capsule,delayed release(DR/EC) 60 mg PO DAILY Qty: 90 2RF ondansetron 4 mg tablet,disintegrating 4 mg PO Q8H PRN (Reason: nausea and vomiting) Qty: 20 0RF albuterol sulfate 90 mcg/actuation HFA aerosol inhaler 2 puff inhalation Q6H PRN (Reason: wheezing) naloxone 4 mg/actuation spray,non-aerosol 1 spray intranasal PRN PRN (Reason: Opioid Overdose) Qty: 4 0RF hydroxyurea (sickle cell) 400 mg capsule 400 mg PO DAILY Qty: 90 3RF hydrocodone-acetaminophen 5-325 mg tablet 1 tab PO BEDTIME PRN (Reason: pain) Qty: 15 0RF hydrocodone-acetaminophen 5-325 mg tablet 1 tab PO Q4-6H PRN (Reason: pain) Qty: 20 0RF Discontinued amoxicillin 500 mg capsule 500 mg PO BID 10 Days Qty: 20 0RF Follow up/Referrals: Jen Albarran FNP-BC [Primary Care Provider, Family Practice] Diet/Activity/Treatments Diet: Diet as Tolerated Activity: As tolerated Skin/Wound/Dressing Care Report to your healthcare provider any signs of infection, such as:: chills, fever, night sweats and increased pain Visit Report/Discharge Packet Instructions: DI for Pneumonia -- Adult Stand Alone Forms: Patient Portal/API Discharge Data Primary Care Provider: Jen Albarran Quality VTE Deep Vein Thrombosis/Pulmonary Embolism Present on Admission: No
== END 2025-03-05 15:55 | disposition home or self-care (01) | DRG 139 ==
LOC: ED 18:56 → AC 23:38
PROVIDERS: Family Medicine; Admitting Provider Internal Medicine; Emergency Provider Emergency Medicine; PCP Nurse Practitioner Family; Visit Provider Internal Medicine
DX: J18.9 Pneumonia, unspecified organism (principal); D57.00 Hb-SS disease with crisis, unspecified; F41.9 Anxiety disorder, unspecified; F32.A Depression, unspecified; I69.334 Monoplegia of upper limb following cerebral infarction affecting left non-dominant side; Z90.81 Acquired absence of spleen
CPT/HCPCS: 36415; 71045; 71260; 74177; 80048; 80053; 81001; 81003; 83605; 83690; 84145; 85007; 85025; 85610; 85730; 86003; 86318; 87040; 87070; 87205; 87633; 93005; 96361; 96365; 96375; 96376; 99284; J0696; J1171; J2405; J7050; Q9967

== ENCOUNTER 2025-03-08 19:12 | Inpatient (IN) | payer OTHER, SELFPAY ==
[2025-03-03 00:48] VITALS: BMI 21.5
[2025-03-08] VITALS (10 sets, daily range): BP systolic 94–116; BP diastolic 51–67; PULSE 71–90; RESP 16; TEMP 36.8; O2SAT 84–99; BMI 18.6
--- NOTE | 2025-03-08 19:33 | DI.RAD.S_ITS ---
PROCEDURE: XR CHEST 1V INDICATIONS: sickle crisis TECHNIQUE: One view of the chest was acquired. COMPARISON: [facility], CR, XR CHEST 1V, 03/02/2025, 17:32. FINDINGS: Surgical changes and devices: None. Lungs and pleura: Lungs are clear. No pleural effusions or pneumothorax. Mediastinum: Mediastinal contours appear normal. Heart size is normal. Bones and chest wall: Appearance of sclerosis within the humeral with dystrophic appearance the left. This may be related to prior sickle crisis. Overlying soft tissues appear unremarkable. IMPRESSION: No acute pulmonary process. Dictated by: Korin Vidal M.D. on 03/08/2025 at 19:50 Approved by: Korin Vidal M.D. on 03/08/2025 at 19:51
--- NOTE | 2025-03-08 19:44 | ED_ITS ---
HPI - Extremity Problem General Chief complaint: Extremity Problem,Nontraumatic Stated complaint: sickle cell crisis Time Seen by Provider: 03/08/25 19:33 Source: patient and EMS Mode of arrival: EMS History of Present Illness HPI Narrative: 24-year-old male with history of sickle cell disease, frequent presentations here and other facilities with crises, usually manifest with low back pain, has history of remote stroke and left-sided hemiparesis, prior splenectomy. Today having right lower extremity pain without swelling, no injury or new activities. No low back pain as an prior sickle crises presentations. No history of blood clots to the legs recalled. No injury, trauma, new activities. Related Data Home Medications ?Medication ?Instructions ?Recorded ?Confirmed albuterol sulfate 90 mcg/actuation 2 puff inhalation Q 6H PRN wheezing 11/18/24 03/09/25 aerosol inhaler Previous Rx's ?Medication ?Instructions ?Recorded ondansetron 4 mg disintegrating 4 mg PO Q8H PRN nausea and 10/02/24 tablet vomiting #20 tabs cholecalciferol (vitamin D3) 10 20 mcg (2 x 10 mcg (40 0 unit)) PO 10/25/24 mcg (400 unit) capsule DAILY #180 caps naloxone 4 mg/actuation nasal spray 1 spray intranasal PRN PRN Opioid 11/24/24 Overdose #4 ea duloxetine 60 mg capsule,delayed 60 mg PO DAILY #90 ca ps 12/04/24 release hydroxyurea (sickle cell) 400 mg 400 mg PO DAILY #90 c aps 01/12/25 capsule hydrocodone 5 mg-acetaminophen 325 1 tab PO Q4-6H PRN pain #20 tabs 02/02/25 mg tablet cefdinir 300 mg capsule 300 mg PO BID #10 caps 03/05 hydrocodone 5 mg-acetaminophen 325 1 tab PO BEDTIME PA N pain #15 tabs 03/05/25 mg tablet Allergies Allergy/AdvReac Type Severity Reaction Status Date / Time No Known Drug Allergies Allergy Verified 03/08/25 19:27 Patient History Medical History History of CVA (cerebrovascular accident) Vitamin D deficiency PTSD (post-traumatic stress disorder) Depression Anxiety Seizure Anemia Avascular necrosis of bone Contracture, left elbow Contracture, left hand CVA (cerebral vascular accident) Sickle cell anemia Surgical History History of shoulder surgery 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 HEAD: Atraumatic. Normocephalic. EYES: Pupils equal round and reactive. Extraocular motions intact. No scleral icterus. No injection or drainage. ENT: Nose without bleeding, purulent drainage. Throat without erythema, tonsillar hypertrophy or exudate. Airway patent. NECK: Trachea midline. Non tender CARDIOVASCULAR: Regular rate and rhythm without murmurs, gallops, or rubs. RESPIRATORY: Clear to auscultation. Breath sounds equal bilaterally. No wheezes, rales, or rhonchi. GASTROINTESTINAL: Abdomen soft, non-tender, nondistended. EXTREMITIES: No edema or joint tenderness. Muscle wasting and flexion contracture to left upper extremity, as per previous presentations. No tenderness to right lower extremity joint line or soft tissue, no erythema or abrasions or fluctuance or crepitance. Good DP pulse with toes perfusion. BACK: Nontender without deformity or crepitance. No flank tenderness. NEURO: AOx3. Motor functions grossly nonfocal. SKIN: No rash or erythema of visible areas Initial Vital Signs Initial Vital Signs: Vital Signs Temperature 98.3 F 03/08/25 19:18 Pulse Rate 73 03/08/25 19:18 Respiratory Rate 16 03/08/25 19:18 Blood Pressure 104/59 L 03/08/25 19:18 Pulse Oximetry 98 03/08/25 19:18 Oxygen Delivery Method Room Air 03/08/25 19:18 Course Orders Ordered: ED Orders 03/08/25 22:49 CT lumbar spine wo con Stat Acetaminophen (Acetaminophen 325 Mg Tablet) 650 mg PO Q6H PRN PRN Reason: Fever/Mild Pain (1-3) Hydrocodone Bitart/Acetaminophen (Hydrocodone/Acet 5/325 Tablet) 1 tab PO Q4H PRN PRN Reason: Pain, Moderate (4-6) Hydrocodone Bitart/Acetaminophen (Hydrocodone/Acet 5/325 Tablet) 1 tab PO BEDTIME PRN PRN Reason: pain Albuterol (Albuterol 2.5 Mg/3 Ml Neb (Adult)) 2.5 mg INH Q6H PRN PRN Reason: Wheezing Diphenhydramine HCl (Diphenhydramine 50 Mg/Ml Vial) 25 mg IV Q4HR PRN PRN Reason: Itching Duloxetine HCl (Duloxetine 30 Mg Capsule) 60 mg PO DAILY [facility] Hydromorphone HCl (Hydromorphone 1 Mg Inj) 2 mg IV Q2H PRN PRN Reason: Pain, Severe (7-10) Sodium Chloride (Normal Saline 0.9%) 1,000 mls @ 100 mls/hr IV CONT JONATHAN Last Admin: 03/09/25 01:31 Dose: 100 mls/hr Documented By: AM Naloxone HCl (Naloxone 0.4 Mg/Ml Vial) 0.2 mg IV Q2MIN PRN PRN Reason: Opiate Reversal Non-Formulary Medication (Hydroxyurea (Sickle Cell)) 400 mg PO DAILY [facility] Ondansetron HCl (Ondansetron 4 Mg/2 Ml Inj) 4 mg IV Q8HR PRN PRN Reason: Nausea And Vomiting Vitamin D (Cholecalciferol (Vitamin D3) 400 Unit Tablet) 800 unit PO DAILY JONATHAN Discontinued Medications Hydromorphone HCl (Hydromorphone 1 Mg Inj) 1 mg IV NOW ONE Stop: 03/08/25 19:35 Last Admin: 03/08/25 20:01 Dose: 1 mg Documented By: RL Hydromorphone HCl (Hydromorphone 1 Mg Inj) 1 mg IV NOW ONE Stop: 03/08/25 21:03 Last Admin: 03/08/25 21:56 Dose: 1 mg Documented By: SB Hydromorphone HCl (Hydromorphone 1 Mg Inj) 1 mg IV NOW ONE Stop: 03/08/25 22:43 Last Admin: 03/08/25 22:47 Dose: 1 mg Documented By: SB Hydromorphone HCl (Hydromorphone Hcl 0.5 Mg/0.5 Ml Syringe) 1 mg IV Q2H PRN PRN Reason: Pain, Severe (7-10) Last Admin: 03/09/25 04:31 Dose: 1 mg Documented By: Admin: 03/09/25 02:41 Dose: 1 mg Documented By: Admin: 03/09/25 01:06 Dose: 1 mg Documented By: TUNG Hydromorphone HCl (Hydromorphone Hcl 0.5 Mg/0.5 Ml Syringe) 2 mg IV Q2H PRN PRN Reason: Pain, Severe (7-10) Last Admin: 03/09/25 06:12 Dose: 2 mg Documented By: AM Sodium Chloride (Normal Saline 0.9%) 1,000 mls @ 1,000 mls/hr IV BOLUS ONE Stop: 03/08/25 20:33 Last Infusion: 03/08/25 20:44 Dose: Infused Documented By: Admin: 03/08/25 20:02 Dose: 1,000 mls/hr Documented By: RL Non-Formulary Medication (Naloxone) 1 spray NASAL PRN PRN PRN Reason: Opioid Overdose Ondansetron HCl (Ondansetron 4 Mg/2 Ml Inj) 4 mg IV NOW ONE Stop: 03/08/25 19:35 Last Admin: 03/08/25 20:02 Dose: 4 mg Documented By: ALEX Vital Signs Vital signs: Vital Signs - 8 hr 03/08/25 23:00 03/08/25 23:00 03/08/25 23:18 Pulse Rate 76 74 Blood Pressure 106/59 L Pulse Oximetry 95 93 Oxygen Delivery Method Room Air Room Air 03/08/25 23:18 03/08/25 23:30 03/08/25 23:30 Pulse Rate 90 Blood Pressure 104/52 L 116/57 L Pulse Oximetry 94 Oxygen Delivery Method Room Air 03/09/25 00:00 03/09/25 00:00 03/09/25 00:30 Pulse Rate 71 61 Blood Pressure 106/60 Pulse Oximetry 95 95 Oxygen Delivery Method Room Air Room Air 03/09/25 00:30 Pulse Rate Blood Pressure 113/56 L Pulse Oximetry Oxygen Delivery Method MDM - Extremity (Nontraumatic) Lab Data Attestation: I reviewed the patient's lab results. Lab results narrative: White blood cell count 28486, hemoglobin 8.9, platelets 261,000. Glucose 89. BUN 5 with creatinine 0.65. Serum CO2 26, electrolytes normal. Total bilirubin 2.0, AST 75, ALT 45, alkaline phosphatase 79. Reticulocyte 9.6 elevated but has been similarly elevated in the past. 03/09/25 05:22 03/09/25 05:22 Labs: Lab Results 03/08/25 Range/Units 19:57 WBC 19.0 H (4.5-11.0) X10^3/uL RBC 3.49 L (4.5-5.9) X10^6/uL Hgb 8.9 L (13.5-17.5) g/dL Hct 25.4 L (41-53) % MCV 72.9 L (80-100) fL MCH 25.4 L (26-34) PG MCHC 34.9 (30-36) % RDW 21.4 H (11.6-14.8) % Plt Count 261 (150-400) X10^3/uL Neut % (Auto) Not Reportable Lymph % (Auto) Not Reportable [place] % (Auto) Not Reportable Eos % (Auto) Not Reportable Baso % (Auto) Not Reportable Lymph # (Auto) Not Reportable [place] # (Auto) Not Reportable Baso # (Auto) Not Reportable Total Counted 100 Seg Neutrophils % 55.0 (38-70) % Band Neutrophils % 2.0 L (3-7) % Lymphocytes % (Manual) 31.0 (25-45) % Monocytes % (Manual) 9.0 (2-11) % Eosinophils % (Manual) 2.0 (2-4) % Basophils % (Manual) 1.0 (0-1) % Neutrophils # (Manual) 23545 H (9361-8198) /uL Nucleated RBCs 9 H ( - 0) #/Diff RBC Morphology See below Anisocytosis 2+ H Sickle Cells 2+ H Target Cells 2+ H Schistocytes 1+ H Percent Retic 9.6 H (0.9-2.6) % Sodium 140 (137-145) mmol/L Potassium 3.7 (3.4-5.1) mmol/L Chloride 104 (98-107) mmol/L Carbon Dioxide 26 (22-32) mmol/L BUN 5 L (9-20) mg/dL Creatinine 0.65 L (0.66-1.25) mg/dL Estimated GFR > 60 (>60) mL/min BUN/Creatinine Ratio 7.7 (6-22) Glucose 89 (70-99) mg/dL Calcium 9.0 (8.4-10.2) mg/dL Total Bilirubin 2.0 H (0.2-1.3) mg/dL AST 72 H (17-59) IU/L ALT 45 (<50) IU/L Alkaline Phosphatase 79 (38-126) U/L Total Protein 8.5 H (6.3-8.2) g/dL Albumin 4.6 (3.5-5.0) g/dL Globulin 3.9 (1.7-4.1) g/dL Albumin/Globulin Ratio 1.2 (1.0-2.8) Imaging Data Chest x-ray: Radiologist's Impression: Close Chest X-Ray (Signed) Korin Vidal - 03/08/25 Launch?Image [address] [address] XRay Report Signed Patient: Lucretia Keller MR#: [id number] : 2000 Acct:[id number] Age/Sex: 24 / M Date of Service: 03/08/25 Loc: ED Accession Number: [id number] Procedure: XR chest 1V Ordering Provider: Jeovanny Yost MD PROCEDURE: XR CHEST 1V INDICATIONS: sickle crisis TECHNIQUE: One view of the chest was acquired. COMPARISON: [facility], MADDIE, XR CHEST 1V, 03/02/2025, 17:32. FINDINGS: Surgical changes and devices: None. Lungs and pleura: Lungs are clear. No pleural effusions or pneumothorax. Mediastinum: Mediastinal contours appear normal. Heart size is normal. Bones and chest wall: Appearance of sclerosis within the humeral with dystrophic appearance the left. This may be related to prior sickle crisis. Overlying soft tissues appear unremarkable. IMPRESSION: No acute pulmonary process. Dictated by: Korin Vidal M.D. on 03/08/2025 at 19:50 Approved by: Korin Vidal M.D. on 03/08/2025 at 19:51 Right lower extremity venous Doppler: Radiologist's Impression: [address] [address] Ultrasound Report Signed Patient: Lucretia Keller MR#: [id number] : 2000 Acct:[id number] Age/Sex: 24 / M Date of Service: 03/08/25 Loc: ED Accession Number: [id number] Procedure: US periph venous low extrem rt Ordering Provider: Jeovanny Yost MD PROCEDURE: US PERIPH VENOUS LOW EXTREM RT INDICATIONS: RLE pain, hx sickle but usu not leg pain TECHNIQUE: Real-time imaging, as well as color and pulse Doppler interrogation, were performed of the lower extremity deep veins from the inguinal ligament to the popliteal fossa, with documentation of the visualized calf veins. COMPARISON: [facility], CR, XR CHEST 1V, 03/08/2025, 19:32. FINDINGS: The common femoral, femoral, popliteal, and the visualized calf veins are normally compressible, and free of intraluminal thrombus. Color and pulse Doppler demonstrate normal phasic intraluminal flow. There is normal augmentation response to distal compression maneuver. IMPRESSION: No findings of lower extremity deep venous thrombosis. Dictated by: Александр Chandler M.D. on 03/08/2025 at 19:55 Approved by: Александр Chandler M.D. on 03/08/2025 at 19:56 CT lumbar spine: Radiologist's Impression: [place] [address] CT Scan Report Signed Patient: Lucretia Keller MR#: [id number] : 2000 Acct:[id number] Age/Sex: 24 / M Date of Service: 03/08/25 Loc: ED Accession Number: [id number] Procedure: CT lumbar spine wo con Ordering Provider: Jeovanny Yost MD PROCEDURE: CT LUMBAR SPINE WO CON INDICATIONS: right leg pain, neg US doppler RLE TECHNIQUE: Noncontrast 3 mm thick sections acquired from the T12 level to the sacrum. Sagittal and coronal reformats were constructed. For radiation dose reduction, the following was used: automated exposure control. COMPARISON: [facility], US PERIPH VENOUS LOW EXTREM RT, 03/08/2025, 20:25. [facility], CR, XR CHEST 1V, 03/08/2025, 19:32. [facility], CT, CT CHEST ABD PEL W CON, 03/02/2025, 21:48. FINDINGS: Image quality: Excellent. Bones: The bones demonstrate a generalized irregular appearance, with lytic and blastic foci. There is normal bony alignment. No acute vertebral body compression fractures. No pars defects. The disc heights are well preserved. No significant disc abnormality is seen. There is [id number] neural foraminal narrowing seen bilaterally at L4-L5, with at least moderate neural foraminal narrowing seen on both sides at L5-S1. No significant central canal narrowing can be seen. Soft tissues: No retroperitoneal masses or hematomas. Visualized aorta is normal in caliber. IMPRESSION: No jose acute bony abnormality is seen. The bones are abnormal, with an appearance consistent with the known history of sickle cell anemia with prior bone infarctions. Focal premature lower lumbar spine degenerative changes are seen, with neural foraminal narrowing seen at L4-L5 and L5-S1. Dictated by: Александр Chandler M.D. on 03/08/2025 at 22:36 Approved by: Александр Chandler M.D. on 03/08/2025 at 22:39 MDM Narrative Medical decision making narrative: 24-year-old male with history of sickle cell disease, frequent presentations for sickle crisis typically with low back pain, sometimes with chest pain, not having low back pain or chest pain currently, but having nontraumatic right leg pain. No swelling of the leg. No redness or skin lesions recalled. No injury or trauma new activities. Labs pending. Ultrasound Doppler right lower extremity ordered. Chest x-ray no acute changes. See radiology report. Right lower extremity Doppler study negative for DVT. See radiology report. Lab data: White blood cell count 04191, hemoglobin 8.9, platelets 261,000. Glucose 89. BUN 5 with creatinine 0.65. Serum CO2 26, electrolytes normal. Total bilirubin 2.0, AST 75, ALT 45, alkaline phosphatase 79. Reticulocyte 9.6 elevated but has been similarly elevated in the past. IV Dilaudid x3 doses, still has persisting pain. Unclear if this represents a new sickle crisis pain syndrome. IV fluids, oxygen. CT lumbar spine. CT lumbar spine without significant changes. Impressions: ?No jose acute bony abnormality is seen. The bones are abnormal, with an appearance consistent with the known history of sickle cell anemia with prior bone infarctions. Focal premature lower lumbar spine degenerative changes are seen, with neural foraminal narrowing seen at L4-L5 and L5-S1. See radiology report Patient not having relief after 3 mg Dilaudid, consider sickle equivalent pain. Further hydration, oxygen, analgesics. We will contact hospitalist regarding admission. 0050, case discussed with hospitalist Dr. Frederick who accepts patient for admission Critical Care Time Critical Care Time Critical Care Time: Yes Total Critical Care Time: 35 Attestation: The high probability of a clinically significant, sudden or life threatening deterioration of the [35] system(s) required my full and direct attention, intervention and personal management. The aggregate critical care time was [] minutes. This time is in addition to time spent performing reported procedures but includes the following: [x] Data Review and interpretation [x] Patient assessment and monitoring of vital signs [x] Documentation [x] Medication orders and management Discharge Plan Departure Patient Disposition: Admitted as Observation Clinical Impression: Sickle cell disease with crisis, Lower extremity pain, right Admit Date/Time: 03/09/25 00:49 Admit Provider: Ace Frederick
--- NOTE | 2025-03-08 19:56 | DI.US.S_ITS ---
PROCEDURE: US PERIPH VENOUS LOW EXTREM RT INDICATIONS: RLE pain, hx sickle but usu not leg pain TECHNIQUE: Real-time imaging, as well as color and pulse Doppler interrogation, were performed of the lower extremity deep veins from the inguinal ligament to the popliteal fossa, with documentation of the visualized calf veins. COMPARISON: [facility], CR, XR CHEST 1V, 03/08/2025, 19:32. FINDINGS: The common femoral, femoral, popliteal, and the visualized calf veins are normally compressible, and free of intraluminal thrombus. Color and pulse Doppler demonstrate normal phasic intraluminal flow. There is normal augmentation response to distal compression maneuver. IMPRESSION: No findings of lower extremity deep venous thrombosis. Dictated by: Александр Chandler M.D. on 03/08/2025 at 19:55 Approved by: Александр Chandler M.D. on 03/08/2025 at 19:56
[2025-03-08] MEDS: HYDROMORPHONE 1 MG INJ IV ×3 (20:01→22:47)
[2025-03-08] MEDS: SODIUM CHLORIDE 0.9% 1,000 ML 1000 ML IV (20:02)
[2025-03-08] MEDS: ONDANSETRON 4 MG/2 ML INJ IV (20:02)
[2025-03-08 20:11] LABS: Hematocrit 25.4 % (41-53); Hemoglobin 8.9 g/dL (13.5-17.5); Mean Corpuscular HGB Conc 34.9 % (30-36); Mean Corpuscular Hemoglobin 25.4 PG (26-34); Mean Corpuscular Volume 72.9 fL (80-100); Platelet Count 261 X10^3/uL (150-400)
[2025-03-08 20:16] LABS: Reticulocyte Count, Percent 9.6 % (0.9-2.6)
[2025-03-08 20:17] LABS: Alanine Aminotransferase 45 IU/L (<50); Albumin 4.6 g/dL (3.5-5.0); Albumin Globulin Ratio 1.2 (1.0-2.8); Alkaline Phosphatase 79 U/L (38-126); Blood Urea Nitrogen 5 mg/dL (9-20); Calcium 9.0 mg/dL (8.4-10.2); Carbon Dioxide 26 mmol/L (22-32); Chloride 104 mmol/L (98-107); Estimated Glomerular Filt Rate > 60 mL/min (>60); Globulin 3.9 g/dL (1.7-4.1); Glucose 89 mg/dL (70-99); HEMOLYSIS < 15 (0-50); Potassium 3.7 mmol/L (3.4-5.1); Sodium 140 mmol/L (137-145); Total Protein 8.5 g/dL (6.3-8.2)
[2025-03-08 20:33] LABS: Add Manual Diff / Slide Review YES
[2025-03-08 20:39] LABS: Band Neutrophils Percent 2.0 % (3-7); Basophils Percent Manual 1.0 % (0-1); Eosinophils Percent Manual 2.0 % (2-4); Lymphocytes Percent Manual 31.0 % (25-45); Monocytes Percent Manual 9.0 % (2-11); Neutrophils Absolute Manual 10830 /uL (3000-5900); Segmented Neutrophils Percent 55.0 % (38-70); Total Cells Counted 100
[2025-03-08 20:41] LABS: Anisocytosis 2+; Sickle Cells 2+; Target Cells 2+
[2025-03-08 20:42] LABS: Schistocytes 1+
--- NOTE | 2025-03-08 22:49 | DI.CT.S_ITS ---
PROCEDURE: CT LUMBAR SPINE WO CON INDICATIONS: right leg pain, neg US doppler RLE TECHNIQUE: Noncontrast 3 mm thick sections acquired from the T12 level to the sacrum. Sagittal and coronal reformats were constructed. For radiation dose reduction, the following was used: automated exposure control. COMPARISON: [facility], US, US PERIPH VENOUS LOW EXTREM RT, 03/08/2025, 20:25. [facility], CR, XR CHEST 1V, 03/08/2025, 19:32. [facility], CT, CT CHEST ABD PEL W CON, 03/02/2025, 21:48. FINDINGS: Image quality: Excellent. Bones: The bones demonstrate a generalized irregular appearance, with lytic and blastic foci. There is normal bony alignment. No acute vertebral body compression fractures. No pars defects. The disc heights are well preserved. No significant disc abnormality is seen. There is [id number] neural foraminal narrowing seen bilaterally at L4-L5, with at least moderate neural foraminal narrowing seen on both sides at L5-S1. No significant central canal narrowing can be seen. Soft tissues: No retroperitoneal masses or hematomas. Visualized aorta is normal in caliber. IMPRESSION: No jose acute bony abnormality is seen. The bones are abnormal, with an appearance consistent with the known history of sickle cell anemia with prior bone infarctions. Focal premature lower lumbar spine degenerative changes are seen, with neural foraminal narrowing seen at L4-L5 and L5-S1. Dictated by: Александр Chandlre M.D. on 03/08/2025 at 22:36 Approved by: Александр Chandler M.D. on 03/08/2025 at 22:39
[2025-03-09] VITALS (8 sets, daily range): BP systolic 100–117; BP diastolic 56–83; PULSE 61–75; RESP 15–16; TEMP 36.6–36.9; O2SAT 93–97; BMI 20.2
[2025-03-09] MEDS: SODIUM CHLORIDE 0.9% 1,000 ML 100 ML IV ×3 (01:31→22:18)
[2025-03-09 06:01] LABS: Add Manual Diff / Slide Review NO; Hematocrit 23.0 % (41-53); Hemoglobin 7.7 g/dL (13.5-17.5); Lymphocytes Absolute Auto 4800 /uL (1100-4500); Mean Corpuscular HGB Conc 33.6 % (30-36); Mean Corpuscular Hemoglobin 24.7 PG (26-34); Mean Corpuscular Volume 73.5 fL (80-100); Platelet Count 164 X10^3/uL (150-400)
[2025-03-09 06:11] LABS: Blood Urea Nitrogen 4 mg/dL (9-20); Calcium 8.4 mg/dL (8.4-10.2); Carbon Dioxide 25 mmol/L (22-32); Chloride 104 mmol/L (98-107); Estimated Glomerular Filt Rate > 60 mL/min (>60); Glucose 82 mg/dL (70-99); Potassium 3.8 mmol/L (3.4-5.1); Sodium 137 mmol/L (137-145)
[2025-03-09 06:13] LABS: HEMOLYSIS 60 (0-50)
--- NOTE | 2025-03-09 06:21 | PM.HP.1 ---
History of Present Illness History of Present Illness Date Patient Seen: 03/09/25 Time Patient Seen: 06:22 Chief complaint: sickle cell crisis Narrative: 23-year-old male with past medical history of sickle cell disease with multiple recurrent admissions for sickle cell crisis, CVA, seizure disorder, anemia, depression, PTSD and vitamin D deficiency presents with complaint of right leg pain. Per the patient's report, over the last 24 hours the patient started to develop right severe leg pain acutely. The patient denies any injury or swelling to his leg. Otherwise the patient denies any fever, chills, nausea, vomiting, diarrhea, chest pain, shortness of breath or coughing. In the emergency room, the patient was hemodynamically stable. Labs were relatively stable compared to previous lab. WBC was 19 hemoglobin 8.9. Per our ER physician catheter refill and pulses were normal on the right lower extremity. CT scan shows no acute finding to explain the pain. If there is concern for another episode of sickle cell crisis ER physician request admission after 3 doses of 1 mg Dilaudid given and IV fluid. [facility] Medical History History of CVA (cerebrovascular accident) Vitamin D deficiency PTSD (post-traumatic stress disorder) Depression Anxiety Seizure Anemia Avascular necrosis of bone Contracture, left elbow Contracture, left hand CVA (cerebral vascular accident) Sickle cell anemia Surgical History History of shoulder surgery 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 Family History Father Cancer Sickle cell trait Lupus Mother Sickle cell trait Brother Sickle cell trait Social History household members: significant other alcohol intake: current Meds Home Medications and Allergies Home Medications ?Medication ?Instructions ?Recorded ?Confirmed ?Type ondansetron 4 mg disintegrating 4 mg PO Q8H PRN nausea and 10/02/24 03/09/25 Rx tablet vomiting #20 tabs cholecalciferol (vitamin D3) 10 20 mcg (2 x 10 mcg (400 unit)) PO 10/25/24 03/09/25 Rx mcg (400 unit) capsule DAILY #180 caps albuterol sulfate 90 mcg/actuation 2 puff inhalation Q6H PRN wheezing 04/07/25 07/27/25 History aerosol inhaler naloxone 4 mg/actuation nasal spray 1 spray intranasal PRN PRN Opioid 11/24/24 03/09/25 Rx Overdose #4 ea duloxetine 60 mg capsule,delayed 60 mg PO DAILY #90 caps 12/04/24 03/09/25 Rx release hydroxyurea (sickle cell) 400 mg 400 mg PO DAILY #90 caps 01/12/25 03/09/25 Rx capsule hydrocodone 5 mg-acetaminophen 325 1 tab PO Q4-6H PRN pain #20 tabs 02/02/25 03/09/25 Rx mg tablet cefdinir 300 mg capsule 300 mg PO BID #10 caps 03/05/25 03/09/25 Rx hydrocodone 5 mg-acetaminophen 325 1 tab PO BEDTIME PRN pain #15 tabs 03/05/25 03/09/25 Rx mg tablet Allergies Allergy/AdvReac Type Severity Reaction Status Date / Time No Known Drug Allergies Allergy Verified 03/08/25 19:27 Review of Systems Review of Systems ROS: Yes All systems reviewed with the patient and are negative except as otherwise documented Exam Vital Signs (past 8 hours): - 03/08/25 22:30 03/08/25 23:00 03/08/25 23:00 Temperature Pulse Rate 71 76 Respiratory Rate 16 Blood Pressure 105/59 L 106/59 L Pulse Oximetry 97 95 Oxygen Delivery Method Room Air Room Air Oxygen Flow Rate 03/08/25 23:18 03/08/25 23:18 03/08/25 23:30 Temperature Pulse Rate 74 90 Respiratory Rate Blood Pressure 104/52 L Pulse Oximetry 93 94 Oxygen Delivery Method Room Air Room Air Oxygen Flow Rate 03/08/25 23:30 03/09/25 00:00 03/09/25 00:00 Temperature Pulse Rate 71 Respiratory Rate Blood Pressure 116/57 L 106/60 Pulse Oximetry 95 Oxygen Delivery Method Room Air Oxygen Flow Rate 03/09/25 00:30 03/09/25 00:30 03/09/25 01:00 Temperature Pulse Rate 61 73 Respiratory Rate Blood Pressure 113/56 L Pulse Oximetry 95 94 Oxygen Delivery Method Room Air Room Air Oxygen Flow Rate 03/09/25 01:00 03/09/25 01:30 Temperature 97.9 F Pulse Rate 64 Respiratory Rate 16 Blood Pressure 110/57 L 112/69 Pulse Oximetry 95 Oxygen Delivery Method Oxygen Flow Rate 0 Oxygen Delivery Method Room Air Oxygen Flow Rate 0 Narrative Exam Narrative: Physical Exam: GENERAL: The patient is not in any acute distressed. Awake and alert. HEENT: Nonicteric sclerae, PERRLA, EOMI. Oropharynx clear. Moist mucous membranes. Conjunctivae appear well perfused. HEART: Regular rate and rhythm without murmurs. No lower extremities edema. LUNGS: Clear to auscultation bilaterally. No wheezing, crackles or rhonchi ABDOMEN: Soft, positive bowel sounds, nontender. SKIN: No rash, no excessive bruising, petechiae, or purpura. NEUROLOGIC: AxO x 3. Cranial nerves II-XII intact without motor/sensory deficit. Objective Labs 03/09/25 05:22 03/09/25 05:22 Labs: Laboratory Results - last 24 hr 03/08/25 03/09/25 19:57 05:22 WBC 19.0 H 19.6 H RBC 3.49 L 3.13 L Hgb 8.9 L 7.7 L Hct 25.4 L 23.0 L MCV 72.9 L 73.5 L MCH 25.4 L 24.7 L MCHC 34.9 33.6 RDW 21.4 H 20.7 H Plt Count 261 164 Neut % (Auto) Not Reportable 58.5 Lymph % (Auto) Not Reportable 24.7 L [place] % (Auto) Not Reportable 14.0 Eos % (Auto) Not Reportable 1.7 L Baso % (Auto) Not Reportable 1.1 Neut # (Auto) 00890 H Lymph # (Auto) Not Reportable 4800 H [place] # (Auto) Not Reportable 2800 H Eos # (Auto) 300 Baso # (Auto) Not Reportable 200 H Total Counted 100 Seg Neutrophils % 55.0 Band Neutrophils % 2.0 L Lymphocytes % (Manual) 31.0 Monocytes % (Manual) 9.0 Eosinophils % (Manual) 2.0 Basophils % (Manual) 1.0 Neutrophils # (Manual) 19662 H Nucleated RBCs 9 H RBC Morphology See below Anisocytosis 2+ H Sickle Cells 2+ H Target Cells 2+ H Schistocytes 1+ H Percent Retic 9.6 H Sodium 140 137 Potassium 3.7 3.8 Chloride 104 104 Carbon Dioxide 26 25 BUN 5 L 4 L Creatinine 0.65 L 0.58 L Estimated GFR > 60 > 60 BUN/Creatinine Ratio 7.7 6.9 Glucose 89 82 Calcium 9.0 8.4 Total Bilirubin 2.0 H AST 72 H ALT 45 Alkaline Phosphatase 79 Total Protein 8.5 H Albumin 4.6 Globulin 3.9 Albumin/Globulin Ratio 1.2 Assessment & Plan Assessment & Plan narrative: Possible sickle cell crisis with right leg pain. Admit to medical observation. As stated above workup including Doppler and CT scan of the right lower extremity are negative for any acute finding. Continue pain control with IV Dilaudid IV fluid. Will likely need PT OT in the morning. Leukocytosis. Patient is afebrile. Likely stress related. No clear sign of infection. Monitor for now. Patient remained afebrile. History of CVA. Again notes acute deficit found. Monitor and resume home medication. Depression. Resume home duloxetine. DVT prophylaxis SCDs due to observational status. CODE STATUS full code. Disposition likely home in 1 to 2 days. - As the provider of this telehealth evaluation, requested by the patient's evaluating physician, I attest that I introduced myself to the patient, provided my credentials and determined that telemedicine via a real-time, 2 way interactive audio and video platform is an appropriate and effective means of providing this service. - I reviewed the patient's chart and had a discussion with the member of the patient's treatment team. - The patient and I mutually agreed with continuation of this evaluation via telemedicine. The patient consented for the telemedicine evaluation. - This virtual encounter was taken place from [place] by Dr. Ace Frederick. The patient was evaluated at [facility]. The encounter was approximately 35 minutes. The nurse was present during the entire time of the encounter and was able to move the stethoscope in appropriate directions. Time-Based Coding :: [TOTAL MINUTES] spent with patient and on the chart (including review of chart, obtaining history, exam, reviewing outside data, placing orders, documenting exam and treatment plan, and counseling patient) on [DATE].
[2025-03-09 06:29] LABS: Anisocytosis 2+
[2025-03-09 06:30] LABS: Schistocytes 1+; Target Cells 2+
[2025-03-09] MEDS: DULOXETINE 30 MG CAPSULE 60 MG PO (08:40)
[2025-03-09] MEDS: CHOLECALCIFEROL (VITAMIN D3) 400 UNIT TABLET 800 UNIT PO (08:41)
[2025-03-09] MEDS: HYDROMORPHONE 1 MG INJ 2 MG IV (08:41)
[2025-03-09] MEDS: HYDROMORPHONE 2 MG INJ IV ×4 (10:52→19:25)
--- NOTE | 2025-03-09 12:02 | CM.DANOTE ---
Patient is a 24 yo male who was Re-admitted OBS Status on 03/09/25 for leg pain/Sickel Cell Crisis. Pt has [employer] for insurance and his PCP is Jen Albarran. EMR was reviewed. Per MD, pt with complicated hx with lots of ED visits and admissions for Sickle Cell Crisis and recently admitted 03/02/25-03/05/25 for Fever/PNA and returns with leg pain likely related to Sickle Cell. Pain management and tx. 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 Pt preference is to d/c home when stable and does not feel he will have further d/c needs at discharge but states he still has significant leg pain today and not ready for discharge. Plan: SW to follow for further bedside assessment and to confirm safe discharge home and any further identified discharge planning needs. VISHNU Ballard Discharge Planning/Care Management CM Discharge Assessment Start: 03/09/25 01:00 Freq: Status: Active Protocol: Document 03/09/25 12:01 (Rec: 03/09/25 12:02 [id number]) Discharge Planning Assessment Assigned Discharge VISHNU [place] Keeper DPOA/Assigned none Designee Name Advance Directives? No Advance Directives No on File History Provided By Patient,Medical Record Has Patient been Yes admitted in last 30 days? Comment Recently admitted and discharged on 03/05/25 a few days ago Prior Living Apartment/Condo Arrangements Household Members significant other Type of Drives own vehicle transporation used prior to admit Independent with ADL Yes 's Is patient alert and Yes oriented? Caregiver for No Another Barriers to No Discharge Discharge Plan Home Transportation Sig Other to transport Arrangement Referrals Initiated None needed Whiteboard Updated Yes in Patient Room with name and ext. # of Psych Sales Specialist Review Status In Process Please Provide Date 03/09/25 Initial DC Assessment Was Performed Next Review Type Continued Stay Review
[2025-03-09] MEDS: HYDROMORPHONE 1 MG INJ IV ×4 (12:38→22:18)
[2025-03-09] MEDS: HYDROMORPHONE 2 MG TABLET 4 MG PO ×2 (13:24→18:10)
--- NOTE | 2025-03-09 17:26 | PM.PN.1 ---
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 Patient reports he continues to have 8/10 right hip pain. He states the pain is in the area of his spacer. Currently states he has not had much relief with the IV Dilaudid he has been receiving. Exam Vital Signs (past 8 hours): - 03/09/25 12:00 03/09/25 16:30 Temperature 97.9 F 98 F Pulse Rate 61 67 Respiratory Rate 16 16 Blood Pressure 100/57 L 117/83 Pulse Oximetry 97 95 Oxygen Flow Rate 0 0 Oxygen Delivery Method Room Air Oxygen Flow Rate 0 Narrative Exam Narrative: GEN: Adult male, appears uncomfortable, Alert and oriented x 3 HEENT:NC, Face symmetric CHEST: Respiratory excursions symmetric, coarse but CTAB CV: RRR, no M/R/G ABD: Soft, NT/ND, BT present in all 4 quadrants, no organomegaly or masses EXTR: warm, well perfused, no C/C/E SKIN: warm and dry, no rash NEURO: Alert and oriented x 3, left upper extremity hand contracture Objective Labs 03/09/25 05:22 03/09/25 05:22 Labs: Laboratory Results - last 24 hr 03/08/25 03/09/25 19:57 05:22 WBC 19.0 H 19.6 H RBC 3.49 L 3.13 L Hgb 8.9 L 7.7 L Hct 25.4 L 23.0 L MCV 72.9 L 73.5 L MCH 25.4 L 24.7 L MCHC 34.9 33.6 RDW 21.4 H 20.7 H Plt Count 261 164 Neut % (Auto) Not Reportable 58.5 Lymph % (Auto) Not Reportable 24.7 L [place] % (Auto) Not Reportable 14.0 Eos % (Auto) Not Reportable 1.7 L Baso % (Auto) Not Reportable 1.1 Neut # (Auto) 57460 H Lymph # (Auto) Not Reportable 4800 H [place] # (Auto) Not Reportable 2800 H Eos # (Auto) 300 Baso # (Auto) Not Reportable 200 H Total Counted 100 Seg Neutrophils % 55.0 Band Neutrophils % 2.0 L Lymphocytes % (Manual) 31.0 Monocytes % (Manual) 9.0 Eosinophils % (Manual) 2.0 Basophils % (Manual) 1.0 Neutrophils # (Manual) 79124 H Nucleated RBCs 9 H Platelet Estimate Adequate on smear RBC Morphology See below See below Anisocytosis 2+ H 2+ H Sickle Cells 2+ H Target Cells 2+ H 2+ H Schistocytes 1+ H 1+ H Percent Retic 9.6 H Sodium 140 137 Potassium 3.7 3.8 Chloride 104 104 Carbon Dioxide 26 25 BUN 5 L 4 L Creatinine 0.65 L 0.58 L Estimated GFR > 60 > 60 BUN/Creatinine Ratio 7.7 6.9 Glucose 89 82 Calcium 9.0 8.4 Total Bilirubin 2.0 H AST 72 H ALT 45 Alkaline Phosphatase 79 Total Protein 8.5 H Albumin 4.6 Globulin 3.9 Albumin/Globulin Ratio 1.2 PFSH Medical History History of CVA (cerebrovascular accident) Vitamin D deficiency PTSD (post-traumatic stress disorder) Depression Anxiety Seizure Anemia Avascular necrosis of bone Contracture, left elbow Contracture, left hand CVA (cerebral vascular accident) Sickle cell anemia Surgical History History of shoulder surgery 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 Family History Father Cancer Sickle cell trait Lupus Mother Sickle cell trait Brother Sickle cell trait Social History household members: significant other alcohol intake: current Assessment & Plan Assessment & Plan narrative: 1. Sickle cell disease with possible crisis with right hip pain in the setting of known history of osteonecrosis Will continue IV Dilaudid every 2 hours as needed. Add oral Dilaudid 4 mg every 4 hours. He currently rates his pain as 8/10. Goal would be to reduce his pain to 4/10. Continue IV fluids. Continue hydroxyurea. 2. Anemia, secondary to sickle cell disease Reticulocyte count is 9.6%. This is not out of the range of his typical baseline when he comes to the hospital. Hemoglobin is 7.7 which is somewhat lower than his usual. We will monitor closely. 3. Leukocytosis White blood cell count is 19.6. He did have pneumonia last week and has been treated for that. His leukocytosis is not out of range for where he has been in the past with his sickle cell crises. No current acute infection noted. 4. Remote stroke as a 1-year-old secondary to sickle cell disease Left upper extremity paresis is at baseline. Code status Full Prophylaxis Lovenox Disposition Home when present sickle cell crisis has passed. Time-Based Coding :: [TOTAL MINUTES] spent with patient and on the chart (including review of chart, obtaining history, exam, reviewing outside data, placing orders, documenting exam and treatment plan, and counseling patient) on [DATE].
--- NOTE | 2025-03-09 17:58 | PC.NURSE ---
Patient has requested pain medication throughout the day. He has had iv dilaudid several times, which seems to help his pain at times. He also has an order for 4mg po dilaudid routine. Patient became agitated when explaining to him that we will not get the oral po dilaudid along with 2mg of iv dilaudid, States The Doctor told me that if I needed her she would come anytime. This RN explained to patient that she was in the middle of charting and she would come down to see him soon. He seems to have behaviors when things do not go his way. He has been having pain to the r.leg, girlfriend visiting patient in his room.
[2025-03-09] MEDS: HYDROMORPHONE 2 MG TABLET PO ×3 (19:51→23:37)
[2025-03-10] VITALS (8 sets, daily range): BP systolic 107–131; BP diastolic 63–85; PULSE 68–92; RESP 14–20; TEMP 36.6–36.9; O2SAT 93–96
[2025-03-10] MEDS: HYDROMORPHONE 1 MG INJ IV ×7 (00:08→16:12)
[2025-03-10] MEDS: HYDROMORPHONE 2 MG TABLET PO ×5 (02:08→10:00)
[2025-03-10 06:48] LABS: Add Manual Diff / Slide Review NO; Hematocrit 22.6 % (41-53); Hemoglobin 7.9 g/dL (13.5-17.5); Lymphocytes Absolute Auto 6000 /uL (1100-4500); Mean Corpuscular HGB Conc 34.9 % (30-36); Mean Corpuscular Hemoglobin 25.5 PG (26-34); Mean Corpuscular Volume 73.0 fL (80-100); Platelet Count 209 X10^3/uL (150-400)
[2025-03-10 06:58] LABS: Alanine Aminotransferase 30 IU/L (<50); Albumin 3.9 g/dL (3.5-5.0); Albumin Globulin Ratio 1.1 (1.0-2.8); Alkaline Phosphatase 79 U/L (38-126); Blood Urea Nitrogen 3 mg/dL (9-20); Calcium 8.3 mg/dL (8.4-10.2); Carbon Dioxide 26 mmol/L (22-32); Chloride 101 mmol/L (98-107); Estimated Glomerular Filt Rate > 60 mL/min (>60); Globulin 3.4 g/dL (1.7-4.1); Glucose 88 mg/dL (70-99); HEMOLYSIS < 15 (0-50); Potassium 3.7 mmol/L (3.4-5.1); Sodium 134 mmol/L (137-145); Total Protein 7.3 g/dL (6.3-8.2)
[2025-03-10 07:29] LABS: Sickle Cells 1+
[2025-03-10 07:30] LABS: Schistocytes 1+; Target Cells 1+
[2025-03-10 07:31] LABS: Anisocytosis 2+
[2025-03-10 07:33] LABS: Polychromasia 1+
[2025-03-10] MEDS: HYDROXYUREA 500 MG CAPSULE PO (08:05)
[2025-03-10] MEDS: DULOXETINE 30 MG CAPSULE 60 MG PO (08:05)
[2025-03-10] MEDS: CHOLECALCIFEROL (VITAMIN D3) 400 UNIT TABLET 800 UNIT PO (08:05)
[2025-03-10] MEDS: SODIUM CHLORIDE 0.9% 1,000 ML 100 ML IV ×2 (08:06→18:37)
--- NOTE | 2025-03-10 11:13 | CM.DPC ---
DCP note GEODETIC SURVEYOR reviewed EMR per RN note, continues to have poorly controlled pain. per provider, switch to INPT today. dc timeline unclear. per TCM group, pt has not seen PCP since December 04. referral was placed with hematology. they could not get ahold of him to follow up. Per [facility] eber, pt qualifies for transportation benefits. GEODETIC SURVEYOR met with pt in room. pt reports he's called the PCP office/had his phone number changed in our system but it still shows up as his old number? CORRECT NUMBER as of today is [phone]. GEODETIC SURVEYOR changed it in reg mode in chart. has car now to transport to OP f/u appts. GEODETIC SURVEYOR provided [facility] transport benefit information as well. GEODETIC SURVEYOR updated TCM group. P: dc when medically stable home with OP f/u. CM Team will continue to follow closely for DCP coordination VISHNU Coughlin
--- NOTE | 2025-03-10 11:17 | DIET.CONS ---
Dietary Consultation Note Admission Date: 03/10/2025 10:23 Assessment: 24 y M admitted for sickle cell crisis. Dietitian screened for low MNA score. Pt reports low appetite over last few days, but that this is typical for a few days when in pain. Weight is stable. BMI normal for age. Ht: 177.8 cm Wt: 64 kg BMI: 20.2 UBW: 62 kg on 01/15/25, 65.3 kg on 08/01/24 Last BM: () MNA: 10 Richie Score: 19 Diet: 03/09/25 Breakfast Heart Healthy Diet Diet Modifications: Nutrition Percent Meal Consumed 0% 03/09/25 18:00 Percent Meal Consumed 0% 03/09/25 09:00 Labs: RBC 3.09 X10^6/uL (4.5-5.9) L 03/10/25 06:25 Hgb 7.9 g/dL (13.5-17.5) L 03/10/25 06:25 Hct 22.6 % (41-53) L 03/10/25 06:25 Creatinine 0.53 mg/dL (0.66-1.25) L 03/10/25 06:25 Nutrition Diagnosis: Inadequate oral intake r/t decreased appetite with pain aeb <50% of EER for 2-3 days per recorded PO intakes and report Interventions: Aware of ONS options as needed EER: [id number] kcals (25-30 kcals/kg) 50-65 g protein (.8-1 g/kg per age CONCEPTOR) Monitoring/Evaluations: PO intakes Electronically Signed by: Shayna Brian 03/10/25 11:17 Clinical Dietitian [address] [id number]
[2025-03-10] MEDS: OXYCODONE IR 10 MG TABLET PO ×3 (12:12→18:36)
--- NOTE | 2025-03-10 15:45 | PM.PN.1 ---
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 03/09:Patient reports he continues to have 8/10 right hip pain. He states the pain is in the area of his spacer. Currently states he has not had much relief with the IV Dilaudid he has been receiving. 03/10: Still having hip pain no chest pains however no shortness a breath hemoglobin has dropped to 7.3 1 unit of packed red blood cells has been ordered Review of systems: No fever or chills No shortness a breath No vomiting no vomiting No abdominal pain No urinary symptoms Physical exam: Young male contracted left upper extremity HEENT unremarkable No labored respirations Alert and cogent Assessment and plan: 1. Sickle cell disease with possible crisis with right hip pain in the setting of known history of osteonecrosis Will continue IV Dilaudid every 2 hours as needed. Add oral oxycodone 10 mg every 4 hours. He currently rates his pain as 8/10. Goal would be to reduce his pain to 4/10. Continue IV fluids. Continue hydroxyurea. 2. Anemia, secondary to sickle cell disease Reticulocyte count is 9.6%. This is not out of the range of his typical baseline when he comes to the hospital. Hemoglobin is 7.7 which is somewhat lower than his usual. We will monitor closely. 3. Leukocytosis White blood cell count is 19.6. He did have pneumonia last week and has been treated for that. His leukocytosis is not out of range for where he has been in the past with his sickle cell crises. No current acute infection noted. 4. Remote stroke as a 1-year-old secondary to sickle cell disease Left upper extremity paresis is at baseline. Code status Full Prophylaxis Lovenox Disposition Home when present sickle cell crisis has passed. Time-Based Coding :: 35 minutes spent with patient and on the chart (including review of chart, obtaining history, exam, reviewing outside data, placing orders, documenting exam and treatment plan, and counseling patient) Exam Vital Signs (past 8 hours): - 03/10/25 08:00 03/10/25 12:00 Temperature 97.9 F 97.8 F Pulse Rate 69 74 Respiratory Rate 18 16 Blood Pressure 125/75 131/77 Pulse Oximetry 95 95 Oxygen Delivery Method Room Air Oxygen Flow Rate 0 Objective Labs 03/10/25 06:25 03/10/25 06:25 Labs: Laboratory Results - last 24 hr 03/10/25 03/10/25 06:25 12:31 WBC 14.2 H RBC 3.09 L Hgb 7.9 L Hct 22.6 L MCV 73.0 L MCH 25.5 L MCHC 34.9 RDW 21.9 H Plt Count 209 Neut % (Auto) 43.6 L Lymph % (Auto) 42.2 H [place] % (Auto) 11.2 Eos % (Auto) 2.3 Baso % (Auto) 0.7 Neut # (Auto) 6200 Lymph # (Auto) 6000 H [place] # (Auto) 1600 H Eos # (Auto) 300 Baso # (Auto) 100 RBC Morphology See below Polychromasia 1+ H Anisocytosis 2+ H Sickle Cells 1+ H Target Cells 1+ H Schistocytes 1+ H Sodium 134 L Potassium 3.7 Chloride 101 Carbon Dioxide 26 BUN 3 L Creatinine 0.53 L Estimated GFR > 60 BUN/Creatinine Ratio 5.7 L Glucose 88 Calcium 8.3 L Total Bilirubin 2.7 H AST 56 ALT 30 Alkaline Phosphatase 79 Total Protein 7.3 Albumin 3.9 Globulin 3.4 Albumin/Globulin Ratio 1.1 Blood Type A Positive Antibody Screen Negative Crossmatch See Detail [facility] Medical History History of CVA (cerebrovascular accident) Vitamin D deficiency PTSD (post-traumatic stress disorder) Depression Anxiety Seizure Anemia Avascular necrosis of bone Contracture, left elbow Contracture, left hand CVA (cerebral vascular accident) Sickle cell anemia Surgical History History of shoulder surgery 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 Family History Father Cancer Sickle cell trait Lupus Mother Sickle cell trait Brother Sickle cell trait Social History household members: significant other alcohol intake: current Assessment & Plan Time-Based Coding :: [TOTAL MINUTES] spent with patient and on the chart (including review of chart, obtaining history, exam, reviewing outside data, placing orders, documenting exam and treatment plan, and counseling patient) on [DATE].
[2025-03-10] MEDS: HYDROMORPHONE 2 MG INJ IV ×4 (17:34→22:32)
[2025-03-11 01:19] VITALS: BP 116/75; PULSE 76; RESP 18; TEMP 36.8
[2025-03-11] MEDS: HYDROMORPHONE 2 MG INJ IV ×13 (01:19→21:36)
[2025-03-11 04:00] VITALS: BP 120/81; PULSE 98; RESP 16; TEMP 36.8; O2SAT 96
[2025-03-11] MEDS: OXYCODONE IR 10 MG TABLET PO ×6 (04:03→22:49)
[2025-03-11 08:00] VITALS: BP 115/77; PULSE 78; RESP 17; TEMP 36.3; O2SAT 96
[2025-03-11] MEDS: CHOLECALCIFEROL (VITAMIN D3) 400 UNIT TABLET 800 UNIT PO (08:26)
[2025-03-11] MEDS: DULOXETINE 30 MG CAPSULE 60 MG PO (08:26)
[2025-03-11] MEDS: HYDROXYUREA 500 MG CAPSULE PO (08:32)
[2025-03-11] MEDS: SODIUM CHLORIDE 0.9% 1,000 ML 100 ML IV ×2 (10:42→20:05)
[2025-03-11 12:00] VITALS: BP 115/74; PULSE 73; RESP 17; TEMP 36.4; O2SAT 97
--- NOTE | 2025-03-11 14:42 | P.PN_ITS ---
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 03/09:Patient reports he continues to have 8/10 right hip pain. He states the pain is in the area of his spacer. Currently states he has not had much relief with the IV Dilaudid he has been receiving. 03/10: Still having hip pain no chest pains however no shortness a breath hemoglobin has dropped to 7.3 1 unit of packed red blood cells has been ordered 03/11: Continues to have pain requiring IV Dilaudid as well as his oral oxycodone hemoglobin greater than 9 total bilirubin 3.5 Review of systems: No fever or chills No shortness a breath No vomiting no vomiting No abdominal pain No urinary symptoms Physical exam: Young male contracted left upper extremity HEENT unremarkable No labored respirations Alert and cogent Assessment and plan: 1. Sickle cell disease with possible crisis with right hip pain in the setting of known history of osteonecrosis Will continue IV Dilaudid every 2 hours as needed. Add oral oxycodone 10 mg every 4 hours. He currently rates his pain as 8/10. Goal would be to reduce his pain to 4/10. Continue IV fluids. Continue hydroxyurea. 2. Anemia, secondary to sickle cell disease Reticulocyte count is 9.6%. This is not out of the range of his typical baseline when he comes to the hospital. Hemoglobin is 7.7 which is somewhat lower than his usual. We will monitor closely. 3. Leukocytosis White blood cell count is 19.6. He did have pneumonia last week and has been treated for that. His leukocytosis is not out of range for where he has been in the past with his sickle cell crises. No current acute infection noted. 4. Remote stroke as a 1-year-old secondary to sickle cell disease Left upper extremity paresis is at baseline. Code status Full Prophylaxis Lovenox Disposition Home when present sickle cell crisis has passed. Time-Based Coding :: 35 minutes spent with patient and on the chart (including review of chart, obtaining history, exam, reviewing outside data, placing orders, documenting exam and treatment plan, and counseling patient) Exam Vital Signs (past 8 hours): - 03/11/25 08:00 03/11/25 12:00 Temperature 97.4 F L 97.6 F Pulse Rate 78 73 Respiratory Rate 17 17 Blood Pressure 115/77 115/74 Pulse Oximetry 96 97 Oxygen Flow Rate 0 0 Oxygen Delivery Method Room Air Oxygen Flow Rate 0 Objective Labs 03/11/25 15:08 03/11/25 15:08 Labs: Laboratory Results - last 24 hr 03/10/25 12:31 Blood Type A Positive Antibody Screen Negative Direct Antiglob Test Negative Crossmatch See Detail [facility], [facility] Medical History History of CVA (cerebrovascular accident) Vitamin D deficiency PTSD (post-traumatic stress disorder) Depression Anxiety Seizure Anemia Avascular necrosis of bone Contracture, left elbow Contracture, left hand CVA (cerebral vascular accident) Sickle cell anemia Surgical History History of shoulder surgery 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 Family History Father Cancer Sickle cell trait Lupus Mother Sickle cell trait Brother Sickle cell trait Social History household members: significant other alcohol intake: current Assessment & Plan Time-Based Coding :: [TOTAL MINUTES] spent with patient and on the chart (including review of chart, obtaining history, exam, reviewing outside data, placing orders, documenting exam and treatment plan, and counseling patient) on [DATE].
[2025-03-11 15:24] LABS: Hematocrit 27.0 % (41-53); Hemoglobin 9.3 g/dL (13.5-17.5); Mean Corpuscular HGB Conc 34.5 % (30-36); Mean Corpuscular Hemoglobin 25.8 PG (26-34); Mean Corpuscular Volume 74.7 fL (80-100); Platelet Count 240 X10^3/uL (150-400)
[2025-03-11 15:26] LABS: Add Manual Diff / Slide Review YES
[2025-03-11 15:32] LABS: Alanine Aminotransferase 26 IU/L (<50); Albumin 4.2 g/dL (3.5-5.0); Albumin Globulin Ratio 1.0 (1.0-2.8); Alkaline Phosphatase 100 U/L (38-126); Blood Urea Nitrogen 3 mg/dL (9-20); Calcium 8.5 mg/dL (8.4-10.2); Carbon Dioxide 28 mmol/L (22-32); Chloride 98 mmol/L (98-107); Estimated Glomerular Filt Rate > 60 mL/min (>60); Globulin 4.2 g/dL (1.7-4.1); Glucose 98 mg/dL (70-99); HEMOLYSIS < 15 (0-50); Potassium 3.5 mmol/L (3.4-5.1); Sodium 135 mmol/L (137-145); Total Protein 8.4 g/dL (6.3-8.2)
[2025-03-11 15:45] LABS: Atypical Lymphocytes Percent 7.0 %; Band Neutrophils Percent 4.0 % (3-7); Eosinophils Percent Manual 5.0 % (2-4); Lymphocytes Percent Manual 18.0 % (25-45); Monocytes Percent Manual 11.0 % (2-11); Neutrophils Absolute Manual 9735 /uL (3000-5900); Segmented Neutrophils Percent 55.0 % (38-70); Total Cells Counted 100
[2025-03-11 15:47] LABS: Anisocytosis 3+; Macrocytosis 1+; Microcytosis 2+; Target Cells 2+
[2025-03-11 15:48] LABS: Rouleaux 2+
[2025-03-11 15:50] LABS: Schistocytes 1+; Sickle Cells 2+; Toxic Vacuolation Present
[2025-03-11 15:51] LABS: Acanthocytes 1+; Hypochromasia 2+; Tear Drop Cells 1+
[2025-03-11 15:52] LABS: Polychromasia 1+
[2025-03-11 16:00] VITALS: BP 116/74; PULSE 77; RESP 14; TEMP 36.4; O2SAT 97
[2025-03-11] MEDS: POTASSIUM CHLORIDE 20 MEQ TAB 40 MEQ PO (16:46)
[2025-03-11 20:10] VITALS: BP 118/77; PULSE 85; RESP 16; TEMP 36.8; O2SAT 96
[2025-03-12] MEDS: HYDROMORPHONE 2 MG INJ IV ×14 (00:06→23:19)
[2025-03-12 00:15] VITALS: BP 118/76; PULSE 86; RESP 16; TEMP 36.4; O2SAT 95
[2025-03-12 04:36] VITALS: BP 116/79; PULSE 79; RESP 16; TEMP 36.2; O2SAT 95
[2025-03-12] MEDS: OXYCODONE IR 10 MG TABLET PO ×5 (04:57→23:19)
[2025-03-12] MEDS: SODIUM CHLORIDE 0.9% 1,000 ML 100 ML IV ×2 (05:52→14:51)
[2025-03-12 06:34] LABS: Add Manual Diff / Slide Review NO; Hematocrit 27.6 % (41-53); Hemoglobin 9.4 g/dL (13.5-17.5); Lymphocytes Absolute Auto 4400 /uL (1100-4500); Mean Corpuscular HGB Conc 33.9 % (30-36); Mean Corpuscular Hemoglobin 25.7 PG (26-34); Mean Corpuscular Volume 75.6 fL (80-100); Platelet Count 240 X10^3/uL (150-400)
[2025-03-12 07:02] LABS: Blood Urea Nitrogen 3 mg/dL (9-20); Calcium 8.8 mg/dL (8.4-10.2); Carbon Dioxide 27 mmol/L (22-32); Chloride 99 mmol/L (98-107); Estimated Glomerular Filt Rate > 60 mL/min (>60); Glucose 86 mg/dL (70-99); HEMOLYSIS < 15 (0-50); Magnesium 1.7 mg/dL (1.6-2.3); Potassium 4.1 mmol/L (3.4-5.1); Sodium 134 mmol/L (137-145)
[2025-03-12 07:06] LABS: Acanthocytes 1+; Anisocytosis 3+; Hypochromasia 2+; Macrocytosis 1+; Microcytosis 2+; Schistocytes 1+; Target Cells 1+; Tear Drop Cells 1+
[2025-03-12] MEDS: HYDROXYUREA 500 MG CAPSULE PO (08:13)
[2025-03-12] MEDS: DULOXETINE 30 MG CAPSULE 60 MG PO (08:13)
[2025-03-12] MEDS: CHOLECALCIFEROL (VITAMIN D3) 400 UNIT TABLET 800 UNIT PO (08:19)
[2025-03-12 08:37] LABS: Reticulocyte Count, Percent 9.4 % (0.9-2.6)
[2025-03-12] MEDS: MAGNESIUM CHLORIDE 64 MG TABLET 128 MG PO (10:26)
--- NOTE | 2025-03-12 11:22 | CM.DPNOTE ---
DCP note CYTOMETRY TECHNOLOGIST reviewed EMR per chart review/charge gang weigher report, continues to be on IV pain medication for sickle cell crisis management. will need to be off IV pain meds before stable for home. CM team will continue to follow closely/update TCM group at dc and check in on status of hematology referral from [facility]. VISHNU Thacker
[2025-03-12 12:30] VITALS: BP 118/71; PULSE 77; RESP 16; TEMP 36.6; O2SAT 100
[2025-03-12] MEDS: ACYCLOVIR 400 MG TABLET 200 MG PO ×2 (13:01→20:59)
[2025-03-12] MEDS: ACYCLOVIR 5% OINT 15 GM 1 APPLIC TOP ×2 (15:05→21:04)
--- NOTE | 2025-03-12 15:11 | PC.NURSE ---
Addendum entered by Anita Vieira R.N. 03/12/25 15:16: Continue w/ plan of care Original Note: Assumed care at 1330 Pt status remains essentially unchanged. Med w/ Dilaudid for discomfort w/ some relief. Call light w/in reach, pt calls appropriatel
--- NOTE | 2025-03-12 19:36 | PM.PN.1 ---
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 03/09:Patient reports he continues to have 8/10 right hip pain. He states the pain is in the area of his spacer. Currently states he has not had much relief with the IV Dilaudid he has been receiving. 03/10: Still having hip pain no chest pains however no shortness a breath hemoglobin has dropped to 7.3 1 unit of packed red blood cells has been ordered 03/11: Continues to have pain requiring IV Dilaudid as well as his oral oxycodone hemoglobin greater than 9 total bilirubin 3.5 03/12: Patient's pain is slightly better no nausea or vomiting less requirement for IV Dilaudid for control hemoglobin is stable and bilirubin and reticulocyte count are slightly lower Review of systems: No fever or chills No shortness a breath No vomiting no vomiting No abdominal pain No urinary symptoms Physical exam: Young male contracted left upper extremity HEENT unremarkable No labored respirations Alert and cogent Assessment and plan: 1. Sickle cell disease with possible crisis with right hip pain in the setting of known history of osteonecrosis Will continue IV Dilaudid every 2 hours as needed. Add oral oxycodone 10 mg every 4 hours. He currently rates his pain as 8/10. Goal would be to reduce his pain to 4/10. Continue IV fluids. Continue hydroxyurea. 2. Anemia, secondary to sickle cell disease Reticulocyte count is 9.6%. This is not out of the range of his typical baseline when he comes to the hospital. Hemoglobin is 7.7 which is somewhat lower than his usual. We will monitor closely. 3. Leukocytosis White blood cell count is 19.6. He did have pneumonia last week and has been treated for that. His leukocytosis is not out of range for where he has been in the past with his sickle cell crises. No current acute infection noted. 4. Remote stroke as a 1-year-old secondary to sickle cell disease Left upper extremity paresis is at baseline. Code status Full Prophylaxis Lovenox Disposition Home when present sickle cell crisis has passed. Time-Based Coding :: 35 minutes spent with patient and on the chart (including review of chart, obtaining history, exam, reviewing outside data, placing orders, documenting exam and treatment plan, and counseling patient) Exam Vital Signs (past 8 hours): - 03/12/25 12:30 Temperature 97.9 F Pulse Rate 77 Respiratory Rate 16 Blood Pressure 118/71 Pulse Oximetry 100 Oxygen Flow Rate 0 Oxygen Delivery Method Room Air Oxygen Flow Rate 0 Objective Labs 03/12/25 05:44 03/12/25 05:44 Labs: Laboratory Results - last 24 hr 03/12/25 05:44 WBC 16.0 H RBC 3.66 L Hgb 9.4 L Hct 27.6 L MCV 75.6 L MCH 25.7 L MCHC 33.9 RDW 21.1 H Plt Count 240 Neut % (Auto) 62.6 Lymph % (Auto) 27.2 [place] % (Auto) 8.7 Eos % (Auto) 0.9 L Baso % (Auto) 0.6 Neut # (Auto) 83144 H Lymph # (Auto) 4400 [place] # (Auto) 1400 H Eos # (Auto) 100 Baso # (Auto) 100 Platelet Estimate Adequate on smear RBC Morphology See below Hypochromasia 2+ H Anisocytosis 3+ H Microcytosis 2+ H Macrocytosis 1+ H Target Cells 1+ H Tear Drop Cells 1+ H Acanthocytes (Spur) 1+ Schistocytes 1+ H Percent Retic 9.4 H Sodium 134 L Potassium 4.1 Chloride 99 Carbon Dioxide 27 BUN 3 L Creatinine 0.56 L Estimated GFR > 60 BUN/Creatinine Ratio 5.4 L Glucose 86 Calcium 8.8 Magnesium 1.7 Total Bilirubin 3.4 H [facility] Medical History History of CVA (cerebrovascular accident) Vitamin D deficiency PTSD (post-traumatic stress disorder) Depression Anxiety Seizure Anemia Avascular necrosis of bone Contracture, left elbow Contracture, left hand CVA (cerebral vascular accident) Sickle cell anemia Surgical History History of shoulder surgery 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 Family History Father Cancer Sickle cell trait Lupus Mother Sickle cell trait Brother Sickle cell trait Social History household members: significant other alcohol intake: current Assessment & Plan Time-Based Coding :: [TOTAL MINUTES] spent with patient and on the chart (including review of chart, obtaining history, exam, reviewing outside data, placing orders, documenting exam and treatment plan, and counseling patient) on [DATE].
[2025-03-12 20:05] VITALS: BP 131/89; PULSE 96; RESP 16; TEMP 36.7; O2SAT 94
[2025-03-12] MEDS: diphenhydrAMINE 50 MG/ML VIAL 25 MG IV (23:20)
[2025-03-12] MEDS: ACETAMINOPHEN 325 MG TABLET 650 MG PO (23:21)
[2025-03-13] MEDS: HYDROMORPHONE 2 MG INJ IV ×10 (00:26→20:43)
[2025-03-13] MEDS: SODIUM CHLORIDE 0.9% 1,000 ML 100 ML IV ×3 (00:30→21:55)
[2025-03-13 05:24] LABS: Add Manual Diff / Slide Review NO; Hematocrit 26.3 % (41-53); Hemoglobin 8.9 g/dL (13.5-17.5); Lymphocytes Absolute Auto 3000 /uL (1100-4500); Mean Corpuscular HGB Conc 34.0 % (30-36); Mean Corpuscular Hemoglobin 26.0 PG (26-34); Mean Corpuscular Volume 76.4 fL (80-100); Platelet Count 252 X10^3/uL (150-400)
[2025-03-13 05:46] LABS: Blood Urea Nitrogen 3 mg/dL (9-20); Calcium 8.5 mg/dL (8.4-10.2); Carbon Dioxide 28 mmol/L (22-32); Chloride 98 mmol/L (98-107); Estimated Glomerular Filt Rate > 60 mL/min (>60); Glucose 86 mg/dL (70-99); Magnesium 1.7 mg/dL (1.6-2.3); Potassium 4.3 mmol/L (3.4-5.1); Sodium 134 mmol/L (137-145)
[2025-03-13 05:52] LABS: HEMOLYSIS 66 (0-50)
[2025-03-13 05:54] LABS: Anisocytosis 3+; Microcytosis 2+
[2025-03-13 05:55] LABS: Acanthocytes 1+; Hypochromasia 2+; Macrocytosis 1+; Schistocytes 1+; Target Cells 2+; Tear Drop Cells 1+
[2025-03-13] MEDS: CHOLECALCIFEROL (VITAMIN D3) 400 UNIT TABLET 800 UNIT PO (08:04)
[2025-03-13] MEDS: ACYCLOVIR 400 MG TABLET 200 MG PO ×2 (08:13→19:56)
[2025-03-13] MEDS: DULOXETINE 30 MG CAPSULE 60 MG PO (08:14)
[2025-03-13] MEDS: HYDROXYUREA 500 MG CAPSULE PO (08:14)
[2025-03-13] MEDS: ACYCLOVIR 5% OINT 15 GM 1 APPLIC TOP ×3 (08:15→19:57)
[2025-03-13] MEDS: OXYCODONE IR 10 MG TABLET PO ×4 (09:07→23:11)
[2025-03-13 09:35] VITALS: BP 118/82; PULSE 78; RESP 16; TEMP 36.3; O2SAT 100
[2025-03-13] MEDS: MAGNESIUM CHLORIDE 64 MG TABLET 128 MG PO (10:01)
[2025-03-13 12:24] LABS: Reticulocyte Count, Percent 7.7 % (0.9-2.6)
--- NOTE | 2025-03-13 12:52 | P.PN_ITS ---
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 03/09 :Patient reports he continues to have 8/10 right hip pain. He states the pain is in the area of his spacer. Currently states he has not had much relief with the IV Dilaudid he has been receiving. 03/10: Still having hip pain no chest pains however no shortness a breath hemoglobin has dropped to 7.3 1 unit of packed red blood cells has been ordered 03/11: Continues to have pain requiring IV Dilaudid as well as his oral oxycodone hemoglobin greater than 9 total bilirubin 3.5 03/12: Patient's pain is slightly better no nausea or vomiting less requirement for IV Dilaudid for control hemoglobin is stable and bilirubin and reticulocyte count are slightly lower 03/13: Patient's leg pain is better but is having increased bilateral shoulder pain. Laboratory findings are mixed picture: Bilirubin is increased from 3.4- 3.9 reticulocyte count has de-escalated from 9.4-7.7 hemoglobin is stable Review of systems: No fever or chills No shortness a breath No vomiting no vomiting No abdominal pain No urinary symptoms Physical exam: Young male contracted left upper extremity HEENT unremarkable No labored respirations Alert and cogent Assessment and plan: 1. Sickle cell disease with crisis mixed picture today both clinically and on laboratory * Continue IV fluids. * Continue hydroxyurea. * Continue analgesia * Rechecked bilirubin and reticulocyte count in the morning Code status Full Prophylaxis Lovenox Disposition Home when present sickle cell crisis has passed. Time-Based Coding :: 35 minutes spent with patient and on the chart (including review of chart, obtaining history, exam, reviewing outside data, placing orders, documenting exam and treatment plan, and counseling patient) Exam Vital Signs (past 8 hours): - 03/13/25 09:35 Temperature 97.3 F L Pulse Rate 78 Respiratory Rate 16 Blood Pressure 118/82 Pulse Oximetry 100 Oxygen Flow Rate 0 Oxygen Delivery Method Room Air Oxygen Flow Rate 0 Objective Labs 03/13/25 04:45 03/13/25 04:45 Labs: Laboratory Results - last 24 hr 03/13/25 04:45 WBC 14.3 H RBC 3.44 L Hgb 8.9 L Hct 26.3 L MCV 76.4 L MCH 26.0 MCHC 34.0 RDW 20.9 H Plt Count 252 Neut % (Auto) 67.4 Lymph % (Auto) 21.1 L [place] % (Auto) 9.4 Eos % (Auto) 1.6 L Baso % (Auto) 0.5 Neut # (Auto) 9700 H Lymph # (Auto) 3000 [place] # (Auto) 1400 H Eos # (Auto) 200 Baso # (Auto) 100 Platelet Estimate Adequate on smear RBC Morphology See below Hypochromasia 2+ H Anisocytosis 3+ H Microcytosis 2+ H Macrocytosis 1+ H Target Cells 2+ H Tear Drop Cells 1+ H Acanthocytes (Spur) 1+ Schistocytes 1+ H Percent Retic 7.7 H Sodium 134 L Potassium 4.3 Chloride 98 Carbon Dioxide 28 BUN 3 L Creatinine 0.54 L Estimated GFR > 60 BUN/Creatinine Ratio 5.6 L Glucose 86 Calcium 8.5 Magnesium 1.7 Total Bilirubin 3.9 H PFSH Medical History History of CVA (cerebrovascular accident) Vitamin D deficiency PTSD (post-traumatic stress disorder) Depression Anxiety Seizure Anemia Avascular necrosis of bone Contracture, left elbow Contracture, left hand CVA (cerebral vascular accident) Sickle cell anemia Surgical History History of shoulder surgery 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 Family History Father Cancer Sickle cell trait Lupus Mother Sickle cell trait Brother Sickle cell trait Social History household members: significant other alcohol intake: current Assessment & Plan Time-Based Coding :: [TOTAL MINUTES] spent with patient and on the chart (including review of chart, obtaining history, exam, reviewing outside data, placing orders, documenting exam and treatment plan, and counseling patient) on [DATE].
[2025-03-13 20:42] VITALS: BP 116/83; PULSE 86; RESP 17; TEMP 36.8; O2SAT 97
[2025-03-13] MEDS: ACETAMINOPHEN 325 MG TABLET 650 MG PO (23:10)
[2025-03-13] MEDS: diphenhydrAMINE 50 MG/ML VIAL 25 MG IV (23:11)
[2025-03-14] MEDS: OXYCODONE IR 10 MG TABLET PO ×5 (06:22→22:16)
[2025-03-14 06:40] LABS: Hematocrit 25.6 % (41-53); Hemoglobin 8.6 g/dL (13.5-17.5); Mean Corpuscular HGB Conc 33.7 % (30-36); Mean Corpuscular Hemoglobin 25.7 PG (26-34); Mean Corpuscular Volume 76.2 fL (80-100); Platelet Count 264 X10^3/uL (150-400)
[2025-03-14 06:41] LABS: Add Manual Diff / Slide Review YES
[2025-03-14 06:46] LABS: Blood Urea Nitrogen 5 mg/dL (9-20); Calcium 8.7 mg/dL (8.4-10.2); Carbon Dioxide 26 mmol/L (22-32); Chloride 100 mmol/L (98-107); Estimated Glomerular Filt Rate > 60 mL/min (>60); Glucose 90 mg/dL (70-99); HEMOLYSIS < 15 (0-50); Magnesium 1.8 mg/dL (1.6-2.3); Potassium 4.0 mmol/L (3.4-5.1); Sodium 136 mmol/L (137-145)
[2025-03-14 07:10] LABS: Basophils Percent Manual 1.0 % (0-1); Eosinophils Percent Manual 2.0 % (2-4); Lymphocytes Percent Manual 18.0 % (25-45); Monocytes Percent Manual 5.0 % (2-11); Neutrophils Absolute Manual 9620 /uL (3000-5900); Segmented Neutrophils Percent 74.0 % (38-70); Total Cells Counted 100
[2025-03-14 07:11] LABS: Anisocytosis 2+; Poikilocytosis 1+
[2025-03-14 07:13] LABS: Acanthocytes 1+; Schistocytes 1+; Target Cells 1+; Tear Drop Cells 1+
[2025-03-14] MEDS: HYDROMORPHONE 2 MG INJ IV ×10 (07:30→20:58)
[2025-03-14] MEDS: SODIUM CHLORIDE 0.9% 1,000 ML 100 ML IV ×2 (07:45→17:11)
[2025-03-14] MEDS: HYDROXYUREA 500 MG CAPSULE PO (08:47)
[2025-03-14] MEDS: CHOLECALCIFEROL (VITAMIN D3) 400 UNIT TABLET 800 UNIT PO (08:47)
[2025-03-14] MEDS: ACYCLOVIR 400 MG TABLET 200 MG PO ×2 (08:48→19:59)
[2025-03-14] MEDS: DULOXETINE 30 MG CAPSULE 60 MG PO (08:48)
[2025-03-14] MEDS: ACYCLOVIR 5% OINT 15 GM 1 APPLIC TOP ×3 (08:49→19:43)
--- NOTE | 2025-03-14 14:06 | P.PN_ITS ---
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 03/09 :Patient reports he continues to have 8/10 right hip pain. He states the pain is in the area of his spacer. Currently states he has not had much relief with the IV Dilaudid he has been receiving. 03/10: Still having hip pain no chest pains however no shortness a breath hemoglobin has dropped to 7.3 1 unit of packed red blood cells has been ordered 03/11: Continues to have pain requiring IV Dilaudid as well as his oral oxycodone hemoglobin greater than 9 total bilirubin 3.5 03/12: Patient's pain is slightly better no nausea or vomiting less requirement for IV Dilaudid for control hemoglobin is stable and bilirubin and reticulocyte count are slightly lower 03/13: Patient's leg pain is better but is having increased bilateral shoulder pain. Laboratory findings are mixed picture: Bilirubin is increased from 3.4- 3.9 reticulocyte count has de-escalated from 9.4-7.7 hemoglobin is stable 03/14: He reports ongoing leg and shoulder pain requiring ongoing IV Dilaudid for pain control. Exam Vital Signs (past 8 hours): Oxygen Delivery Method Room Air Oxygen Flow Rate 0 Narrative Exam Narrative: Young male contracted left upper extremity HEENT unremarkable No labored respirations Alert and cogent Objective Imaging Lumbar spine CT 03/08/2025: : Radiologist's impression: No jose acute bony abnormality is seen. The bones are abnormal, with an appearance consistent with the known history of sickle cell anemia with prior bone infarctions. Focal premature lower lumbar spine degenerative changes are seen, with neural foraminal narrowing seen at L4-L5 and L5-S1. Chest x-ray 03/08/2025: : Radiologist's impression: Surgical changes and devices: None. Lungs and pleura: Lungs are clear. No pleural effusions or pneumothorax. Mediastinum: Mediastinal contours appear normal. Heart size is normal. Bones and chest wall: Appearance of sclerosis within the humeral with dystrophic appearance the left. This may be related to prior sickle crisis. Overlying soft tissues appear unremarkable. IMPRESSION: No acute pulmonary process. Right lower extremity venous ultrasound 03/08/2025: : Radiologist's impression: No findings of lower extremity deep venous thrombosis. Labs 03/14/25 06:20 03/14/25 06:20 Labs: Laboratory Results - last 24 hr 03/14/25 06:20 WBC 13.0 H RBC 3.36 L Hgb 8.6 L Hct 25.6 L MCV 76.2 L MCH 25.7 L MCHC 33.7 RDW 20.2 H Plt Count 264 Neut % (Auto) Not Reportable Lymph % (Auto) Not Reportable [place] % (Auto) Not Reportable Eos % (Auto) Not Reportable Baso % (Auto) Not Reportable Lymph # (Auto) Not Reportable [place] # (Auto) Not Reportable Baso # (Auto) Not Reportable Total Counted 100 Seg Neutrophils % 74.0 H Lymphocytes % (Manual) 18.0 L Monocytes % (Manual) 5.0 Eosinophils % (Manual) 2.0 Basophils % (Manual) 1.0 Neutrophils # (Manual) 9620 H RBC Morphology Not Reportable Poikilocytosis 1+ H Anisocytosis 2+ H Target Cells 1+ H Tear Drop Cells 1+ H Acanthocytes (Spur) 1+ Schistocytes 1+ H Sodium 136 L Potassium 4.0 Chloride 100 Carbon Dioxide 26 BUN 5 L Creatinine 0.57 L Estimated GFR > 60 BUN/Creatinine Ratio 8.8 Glucose 90 Calcium 8.7 Magnesium 1.8 [facility] Medical History History of CVA (cerebrovascular accident) Vitamin D deficiency PTSD (post-traumatic stress disorder) Depression Anxiety Seizure Anemia Avascular necrosis of bone Contracture, left elbow Contracture, left hand CVA (cerebral vascular accident) Sickle cell anemia Surgical History History of shoulder surgery 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 Family History Father Cancer Sickle cell trait Lupus Mother Sickle cell trait Brother Sickle cell trait Social History household members: significant other alcohol intake: current Assessment & Plan Assessment & Plan narrative: 1. Sickle cell disease with crisis mixed picture today both clinically and on laboratory * Continue IV fluids. * Continue hydroxyurea. * Continue analgesia * Rechecked bilirubin and reticulocyte count in the morning Code status Full Prophylaxis Lovenox Disposition Home when present sickle cell crisis has passed. [employer] Document charge(s): No Charge Codes Subsequent inpatient/observation care: [id number]
[2025-03-14] MEDS: ACETAMINOPHEN 325 MG TABLET 650 MG PO ×2 (15:01→22:16)
--- NOTE | 2025-03-14 18:20 | PC.NURSE ---
Q1h IV Dilaudid and q3h oxy utilized for pain management. PT feels like he could be ready to go home tomorrow. Significant other by to see pt.
[2025-03-14 20:00] VITALS: BP 112/74; PULSE 77; RESP 17; TEMP 36.3; O2SAT 100
[2025-03-14] MEDS: diphenhydrAMINE 50 MG/ML VIAL 25 MG IV (22:16)
[2025-03-15] MEDS: SODIUM CHLORIDE 0.9% 1,000 ML 100 ML IV (03:19)
[2025-03-15 07:00] VITALS: BP 121/83; PULSE 88; RESP 20; TEMP 36.8; O2SAT 99
[2025-03-15] MEDS: ACYCLOVIR 5% OINT 15 GM 1 APPLIC TOP (09:09)
[2025-03-15] MEDS: CHOLECALCIFEROL (VITAMIN D3) 400 UNIT TABLET 800 UNIT PO (09:11)
[2025-03-15] MEDS: DULOXETINE 30 MG CAPSULE 60 MG PO (09:11)
[2025-03-15] MEDS: HYDROMORPHONE 2 MG INJ IV (09:12)
[2025-03-15] MEDS: ACYCLOVIR 400 MG TABLET 200 MG PO (09:27)
[2025-03-15] MEDS: HYDROXYUREA 500 MG CAPSULE PO (09:28)
--- NOTE | 2025-03-15 11:15 | P.PN_ITS ---
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 03/09 :Patient reports he continues to have 8/10 right hip pain. He states the pain is in the area of his spacer. Currently states he has not had much relief with the IV Dilaudid he has been receiving. 03/10: Still having hip pain no chest pains however no shortness a breath hemoglobin has dropped to 7.3 1 unit of packed red blood cells has been ordered 03/11: Continues to have pain requiring IV Dilaudid as well as his oral oxycodone hemoglobin greater than 9 total bilirubin 3.5 03/12: Patient's pain is slightly better no nausea or vomiting less requirement for IV Dilaudid for control hemoglobin is stable and bilirubin and reticulocyte count are slightly lower 03/13: Patient's leg pain is better but is having increased bilateral shoulder pain. Laboratory findings are mixed picture: Bilirubin is increased from 3.4- 3.9 reticulocyte count has de-escalated from 9.4-7.7 hemoglobin is stable 03/14: He reports ongoing leg and shoulder pain requiring ongoing IV Dilaudid for pain control. 2: Patient reports persistent severe left shoulder pain requiring ongoing IV Dilaudid. Exam Vital Signs (past 8 hours): - 03/15/25 07:00 Temperature 98.3 F Pulse Rate 88 Respiratory Rate 20 Blood Pressure 121/83 Pulse Oximetry 99 Oxygen Delivery Method Room Air Oxygen Flow Rate 0 Narrative Exam Narrative: Young male contracted left upper extremity HEENT unremarkable No labored respirations Alert and cogent Objective Imaging Lumbar spine CT 03/08/2025: : Radiologist's impression: No jose acute bony abnormality is seen. The bones are abnormal, with an appearance consistent with the known history of sickle cell anemia with prior bone infarctions. Focal premature lower lumbar spine degenerative changes are seen, with neural foraminal narrowing seen at L4-L5 and L5-S1. Chest x-ray 03/08/2025: : Radiologist's impression: Surgical changes and devices: None. Lungs and pleura: Lungs are clear. No pleural effusions or pneumothorax. Mediastinum: Mediastinal contours appear normal. Heart size is normal. Bones and chest wall: Appearance of sclerosis within the humeral with dystrophic appearance the left. This may be related to prior sickle crisis. Overlying soft tissues appear unremarkable. IMPRESSION: No acute pulmonary process. Right lower extremity venous ultrasound 03/08/2025: : Radiologist's impression: No findings of lower extremity deep venous thrombosis. Labs 03/14/25 06:20 03/14/25 06:20 Labs: Laboratory Results - last 24 hr 03/14/25 06:20 WBC 13.0 H RBC 3.36 L Hgb 8.6 L Hct 25.6 L MCV 76.2 L MCH 25.7 L MCHC 33.7 RDW 20.2 H Plt Count 264 Neut % (Auto) Not Reportable Lymph % (Auto) Not Reportable [place] % (Auto) Not Reportable Eos % (Auto) Not Reportable Baso % (Auto) Not Reportable Lymph # (Auto) Not Reportable [place] # (Auto) Not Reportable Baso # (Auto) Not Reportable Total Counted 100 Seg Neutrophils % 74.0 H Lymphocytes % (Manual) 18.0 L Monocytes % (Manual) 5.0 Eosinophils % (Manual) 2.0 Basophils % (Manual) 1.0 Neutrophils # (Manual) 9620 H RBC Morphology Not Reportable Poikilocytosis 1+ H Anisocytosis 2+ H Target Cells 1+ H Tear Drop Cells 1+ H Acanthocytes (Spur) 1+ Schistocytes 1+ H Sodium 136 L Potassium 4.0 Chloride 100 Carbon Dioxide 26 BUN 5 L Creatinine 0.57 L Estimated GFR > 60 BUN/Creatinine Ratio 8.8 Glucose 90 Calcium 8.7 Magnesium 1.8 PFSH Medical History Anemia Anxiety Avascular necrosis of bone Contracture, left elbow Contracture, left hand CVA (cerebral vascular accident) Depression History of CVA (cerebrovascular accident) PTSD (post-traumatic stress disorder) Seizure Sickle cell anemia Vitamin D deficiency Surgical History Hip joint replacement status History of shoulder surgery Status post splenectomy Family History Father Cancer Sickle cell trait Lupus Mother Sickle cell trait Brother Sickle cell trait Social History household members: significant other alcohol intake: current Assessment & Plan Assessment & Plan narrative: 1. Sickle cell disease with crisis, inadequately controlled requiring IV Dilaudid * Continue IV fluids. * Continue hydroxyurea. * Continue analgesia * Rechecked bilirubin and reticulocyte count in the morning * Consider outpatient hydroxyurea prophylaxis, hematology consultation Code status Full Prophylaxis Lovenox Disposition Home when present sickle cell crisis has passed. [employer] Core Analyst Document charge(s): No Charge Codes Subsequent inpatient/observation care: 18661
[2025-03-15] MEDS: OXYCODONE IR 10 MG TABLET PO (11:17)
--- NOTE | 2025-03-15 11:29 | PC.NURSE ---
Addendum entered by Adan Weeks R.N. 03/15/25 12:37: Pt has orders for d/c. Will remove iv and give Pt d/c instructions. Original Note: A&O conversant, pleasant, taking b'fast. [place] he slept well. Asked for pain med 02/20 pain. discussed moving to po after this iv dose as he is wanting to go home today. up and about independently. Anticipating d/c today.
--- NOTE | 2025-03-15 12:24 | PM.DS.IH.1 ---
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 Discharge Providers Provider Date of admission: 03/10/25 10:23 Discharge Date: 03/15/25 Primary care physician: Jen Albarran [facility] Discharge provider: Jt Mitchell MD Summary Hospital Course Discharge Diagnosis: Sickle cell disease with crisis Hospital Course: 03/09: Patient reports he continues to have 8/10 right hip pain. He states the pain is in the area of his spacer. Currently states he has not had much relief with the IV Dilaudid he has been receiving. 03/10: Still having hip pain no chest pains however no shortness a breath hemoglobin has dropped to 7.3 1 unit of packed red blood cells has been ordered 03/11: Continues to have pain requiring IV Dilaudid as well as his oral oxycodone hemoglobin greater than 9 total bilirubin 3.5 03/12: Patient's pain is slightly better no nausea or vomiting less requirement for IV Dilaudid for control hemoglobin is stable and bilirubin and reticulocyte count are slightly lower 03/13: Patient's leg pain is better but is having increased bilateral shoulder pain. Laboratory findings are mixed picture: Bilirubin is increased from 3.4-3.9 reticulocyte count has de-escalated from 9.4-7.7 hemoglobin is stable 03/14: He reports ongoing leg and shoulder pain requiring ongoing IV Dilaudid for pain control. 2: Patient reports persistent severe left shoulder pain requiring ongoing IV Dilaudid. However, by mid day his pain improved considerably he was interested in discharge home. Outpatient follow-up is advised. He has had multiple recurrent hospitalizations over the past few months. Recommend gradual outpatient up-titration of hydroxyurea over several weeks to maximum tolerated dose, which could be up to 35 milligrams/kilogram daily (up to 2200 mg daily), with attention to CBC to maintain ANC of 1500 to 3000/microL, absolute reticulocyte count (ARC) of 80,000 to 100,000/microL (the absolute reticulocyte count is calculated as the percent reticulocytes x RBC count (x?106/microL) x 10), and a platelet count of 80,000 to 150,000/microL. Status at Discharge Cognitive/behavioral status at discharge: oriented Functional status at discharge: independent ambulation Overall status at discharge: patient is back to baseline Time Spent with Patient Time spent: Greater than 30 minutes Exam Vital Signs (past 8 hours): - 03/15/25 07:00 Temperature 98.3 F Pulse Rate 88 Respiratory Rate 20 Blood Pressure 121/83 Pulse Oximetry 99 Oxygen Delivery Method Room Air Oxygen Flow Rate 0 Narrative Exam Narrative: Young male contracted left upper extremity HEENT unremarkable No labored respirations Alert and cogent Objective Imaging Lumbar spine CT 03/08/2025: : Radiologist's impression: No jose acute bony abnormality is seen. The bones are abnormal, with an appearance consistent with the known history of sickle cell anemia with prior bone infarctions. Focal premature lower lumbar spine degenerative changes are seen, with neural foraminal narrowing seen at L4-L5 and L5-S1. Chest x-ray 03/08/2025: : Radiologist's impression: Surgical changes and devices: None. Lungs and pleura: Lungs are clear. No pleural effusions or pneumothorax. Mediastinum: Mediastinal contours appear normal. Heart size is normal. Bones and chest wall: Appearance of sclerosis within the humeral with dystrophic appearance the left. This may be related to prior sickle crisis. Overlying soft tissues appear unremarkable. IMPRESSION: No acute pulmonary process. Right lower extremity venous ultrasound 03/08/2025: : Radiologist's impression: No findings of lower extremity deep venous thrombosis. Labs 03/14/25 06:20 03/14/25 06:20 Labs: Laboratory Results - last 24 hr 03/14/25 06:20 WBC 13.0 H RBC 3.36 L Hgb 8.6 L Hct 25.6 L MCV 76.2 L MCH 25.7 L MCHC 33.7 RDW 20.2 H Plt Count 264 Neut % (Auto) Not Reportable Lymph % (Auto) Not Reportable [place] % (Auto) Not Reportable Eos % (Auto) Not Reportable Baso % (Auto) Not Reportable Lymph # (Auto) Not Reportable [place] # (Auto) Not Reportable Baso # (Auto) Not Reportable Total Counted 100 Seg Neutrophils % 74.0 H Lymphocytes % (Manual) 18.0 L Monocytes % (Manual) 5.0 Eosinophils % (Manual) 2.0 Basophils % (Manual) 1.0 Neutrophils # (Manual) 9620 H RBC Morphology Not Reportable Poikilocytosis 1+ H Anisocytosis 2+ H Target Cells 1+ H Tear Drop Cells 1+ H Acanthocytes (Spur) 1+ Schistocytes 1+ H Sodium 136 L Potassium 4.0 Chloride 100 Carbon Dioxide 26 BUN 5 L Creatinine 0.57 L Estimated GFR > 60 BUN/Creatinine Ratio 8.8 Glucose 90 Calcium 8.7 Magnesium 1.8 PFSH Medical History Anemia Anxiety Avascular necrosis of bone Contracture, left elbow Contracture, left hand CVA (cerebral vascular accident) Depression History of CVA (cerebrovascular accident) PTSD (post-traumatic stress disorder) Seizure Sickle cell anemia Vitamin D deficiency Surgical History Hip joint replacement status History of shoulder surgery Status post splenectomy Family History Father Cancer Sickle cell trait Lupus Mother Sickle cell trait Brother Sickle cell trait Social History household members: significant other alcohol intake: current Discharge Plan Discharge Plan Patient Disposition: Home Provider Discharge Comment: Followup with [facility] Albarran 1 week Discharge orders & Medications Prescriptions: Continued cholecalciferol (vitamin D3) 10 mcg (400 unit) capsule 20 mcg PO DAILY Qty: 180 0RF Rx Instructions: Start two capsules daily after 6 weeks of 1250mcg weekly dosing. duloxetine 60 mg capsule,delayed release(DR/EC) 60 mg PO DAILY Qty: 90 2RF ondansetron 4 mg tablet,disintegrating 4 mg PO Q8H PRN (Reason: nausea and vomiting) Qty: 20 0RF albuterol sulfate 90 mcg/actuation HFA aerosol inhaler 2 puff inhalation Q6H PRN (Reason: wheezing) naloxone 4 mg/actuation spray,non-aerosol 1 spray intranasal PRN PRN (Reason: Opioid Overdose) Qty: 4 0RF hydroxyurea (sickle cell) 400 mg capsule 400 mg PO DAILY Qty: 90 3RF hydrocodone-acetaminophen 5-325 mg tablet 1 tab PO Q4-6H PRN (Reason: pain) Qty: 20 0RF Discontinued cefdinir 300 mg capsule 300 mg PO BID Qty: 10 0RF hydrocodone-acetaminophen 5-325 mg tablet 1 tab PO BEDTIME PRN (Reason: pain) Qty: 15 0RF Follow up/Referrals: Jen Albarran, [employer]IST[employer]- [Primary Care Provider, Family Practice] Visit Report/Discharge Packet Stand Alone Forms: Patient Portal/API, Stroke Signs & Symptoms Discharge Data Primary Care Provider: Jen Albarran Quality MIPS - Admit I confirm the patient?s Advance Care Plan is present, Code status is documented, Surrogate decision maker is in patient?s record [If Yes, STOP here]: Yes MIPS - Meds 'Current medications' to include all prescriptions, [id number] products, herbals, cannabis/cannabidiol products, and vitamin/mineral/dietary (nutritional) supplements. I have utilized all available resources to obtain, update, or review the patient?s current medications. [If Yes, STOP here]: Yes MIPS - DC The patient has a history of heart transplant or Left Ventricular Assist Device (LVAD). If yes, STOP here.: No The patient has current or prior documentation of left ventricular ejection fraction (LVEF) less than or equal to 40%, or moderate or severely depressed left ventricular systolic function.: No A. The patient was prescribed or already taking an Angiotensin-Converting Enzyme (DELILAH) Inhibitor, or Angiotensin Receptor Alan (ARB).: No B. The patient was prescribed or already taking a beta-alan. [If Yes to Both A & B, STOP here]: No Patient not prescribed/taking DELILAH or ARB, no reason given.: No Patient not prescribed/taking beta-alan, no reason given.: No PROFEE Charge Codes Discharge inpatient/observation: [id number]
== END 2025-03-15 13:40 | disposition home or self-care (01) | DRG 662 ==
LOC: ED 20:26 → AC 03-09 00:50
PROVIDERS: Family Medicine; Internal Medicine; Pharmacist Pharmacist Clinician (PhC)/ Clinical Pharmacy Specialist; Admitting Provider Internal Medicine; Emergency Provider Emergency Medicine; PCP Nurse Practitioner Family; Referring Provider Emergency Medicine; Visit Provider Internal Medicine
DX: D57.00 Hb-SS disease with crisis, unspecified (principal); F32.A Depression, unspecified; D63.8 Anemia in other chronic diseases classified elsewhere; F41.9 Anxiety disorder, unspecified; M24.522 Contracture, left elbow; I69.354 Hemiplegia and hemiparesis following cerebral infarction affecting left non-dominant side; Z96.641 Presence of right artificial hip joint; Z87.39 Personal history of other diseases of the musculoskeletal system and connective tissue; Z90.81 Acquired absence of spleen; Z87.01 Personal history of pneumonia (recurrent); J02.9 Acute pharyngitis, unspecified; R51.9 Headache, unspecified
CPT/HCPCS: 36415; 36430; 71045; 72131; 80048; 80053; 82247; 83735; 85007; 85025; 85045; 86850; 86880; 86900; 86901; 86905; 93971; 96361; 96374; 96375; 96376; 99284; 99291; G0378; P9016; J1171; J1200; J2405

== ENCOUNTER 2025-03-23 06:28 | Emergency (ER) | payer SELFPAY ==
[2025-03-09 01:32] VITALS: BMI 20.2
[2025-03-23] VITALS (11 sets, daily range): BP systolic 93–117; BP diastolic 57–69; PULSE 73–95; RESP 17–24; TEMP 36.6; O2SAT 97–98; BMI 18.6
--- NOTE | 2025-03-23 06:30 | ED.GENADULT ---
HPI - General Adult General Chief complaint: Chest Pain Stated complaint: Lower Back Pain, Chest Pain Time Seen by Provider: 03/23/25 06:29 History of Present Illness HPI narrative: 24-year-old gentleman with sickle cell disease, childhood stroke with left-sided deficits recurrent ER visits and hospitalizations for sickle cell crisis. Discharge from the hospital on 03/15 with right hip pain, chest pain. Left shoulder pain, discharge from the hospital on March 05 with pneumonia and mild sickle pain syndrome. Hydroxy urea was increased with most recent discharge on March 15. 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 He has almost weekly or more visits to the ER with frequent hospitalization. He had a port when he was younger for recurrent sickle crises, he does not now but given his recurrent symptoms might be a reasonable consideration. He is not complaining of fevers or chills. No dyspnea, no pain with deep breathing. The chest pain is through the midsternal into the epigastrium area not significantly reproducible on palpation. Back pain is low back posterior portion of the pelvis into the hip fall in the right side. Does not have limited range of motion with hip internal or external rotation and he was able to walk to triage with a minimally antalgic gait. Related Data Home Medications ?Medication ?Instructions ?Recorded ?Confirmed albuterol sulfate 90 mcg/actuation 2 puff inhalation Q6H PRN wheezing 11/18/24 03/09/25 aerosol inhaler Previous Rx's ?Medication ?Instructions ?Recorded ondansetron 4 mg disintegrating 4 mg PO Q8H PRN nausea and 10/02/24 tablet vomiting #20 tabs cholecalciferol (vitamin D3) 10 20 mcg (2 x 10 mcg (400 unit)) PO 10/25/24 mcg (400 unit) capsule DAILY #180 caps naloxone 4 mg/actuation nasal spray 1 spray intranasal PRN PRN Opioid 11/24/24 Overdose #4 ea duloxetine 60 mg capsule,delayed 60 mg PO DAILY #90 caps 12/04/24 release hydroxyurea (sickle cell) 400 mg 400 mg PO DAILY #90 caps 01/12/25 capsule hydrocodone 5 mg-acetaminophen 325 1 tab PO Q4-6H PRN pain #20 tabs 03/15/25 mg tablet Allergies Allergy/AdvReac Type Severity Reaction Status Date / Time No Known Drug Allergies Allergy Verified 03/23/25 07:06 Review of Systems Review of Systems Narrative: Pertinent positive and negative findings as per HPI Patient History Medical History History of CVA (cerebrovascular accident) Vitamin D deficiency PTSD (post-traumatic stress disorder) Depression Anxiety Seizure Anemia Avascular necrosis of bone Contracture, left elbow Contracture, left hand CVA (cerebral vascular accident) Sickle cell anemia Surgical History History of shoulder surgery 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 Family History Father Cancer Sickle cell trait Lupus Mother Sickle cell trait Brother Sickle cell trait Social History household members: significant other alcohol intake: current tobacco type: vaping alcohol intake frequency: holidays/special occasions only Exam Initial Vital Signs Initial Vital Signs: Vital Signs Temperature 97.8 F 03/23/25 06:30 Pulse Rate 85 03/23/25 06:30 Respiratory Rate 17 03/23/25 06:30 Blood Pressure 103/61 03/23/25 06:30 Pulse Oximetry 97 03/23/25 06:30 Oxygen Delivery Method Room Air 03/23/25 06:30 General: Healthy appearing, in no acute distress. Able to give a complete and coherent history. Well-nourished well-developed HEENT: Moist mucous membranes, normal sclera with reactive pupils, Respiratory: Lungs are clear to auscultation, no wheezing no rales no rhonchi. Full and symmetrical air movement Chest: No chest pain reproducible with palpation Cardiac: Regular rate and rhythm no murmurs no bruits Abdomen: Soft, nontender, no rebound or guarding, no flank pain Skin: Warm and dry, no rashes Neurologic: Left side chronic deficits with contracture secondary to childhood stroke Extremities: No obvious trauma Psych: Cooperative, appropriate insight and affect Course Orders Ordered: ED Orders 03/23/25 06:40 Complete Blood Count AUTO DIFF Stat Comprehensive Metabolic Panel Stat 03/23/25 06:43 XR chest 1V Stat Hydromorphone HCl (Hydromorphone 1 Mg Inj) 1 mg IV Q15MIN PRN PRN Reason: pain Last Admin: 03/23/25 10:41 Dose: 1 mg Documented By: Admin: 03/23/25 09:26 Dose: 1 mg Documented By: Admin: 03/23/25 07:18 Dose: 1 mg Documented By: Admin: 03/23/25 07:05 Dose: 1 mg Documented By: Admin: 03/23/25 06:50 Dose: 1 mg Documented By: TATY Discontinued Medications Sodium Chloride (Normal Saline 0.9%) 1,000 mls @ 1,000 mls/hr IV BOLUS ONE Stop: 03/23/25 07:40 Last Infusion: 03/23/25 08:17 Dose: Infused Documented By: Admin: 03/23/25 07:01 Dose: 1,000 mls/hr Documented By: TATY Ondansetron HCl (Ondansetron 4 Mg/2 Ml Inj) 4 mg IV NOW ONE Stop: 03/23/25 06:42 Last Admin: 03/23/25 06:50 Dose: 4 mg Documented By: TATY Vital Signs Vital signs: Vital Signs - 8 hr 03/23/25 06:30 03/23/25 07:13 03/23/25 07:30 Temperature 97.8 F Pulse Rate 85 81 Respiratory Rate 17 17 Blood Pressure 103/61 99/62 Pulse Oximetry 97 97 Oxygen Delivery Method Room Air Room Air 03/23/25 07:30 03/23/25 08:00 03/23/25 08:00 Temperature Pulse Rate 83 76 Respiratory Rate 17 17 Blood Pressure 101/58 L Pulse Oximetry Oxygen Delivery Method 03/23/25 08:30 03/23/25 08:30 03/23/25 09:00 Temperature Pulse Rate 76 Respiratory Rate 19 Blood Pressure 108/62 114/68 Pulse Oximetry Oxygen Delivery Method 03/23/25 09:00 03/23/25 09:30 03/23/25 09:30 Temperature Pulse Rate 73 85 Respiratory Rate 20 23 Blood Pressure 117/69 Pulse Oximetry Oxygen Delivery Method 03/23/25 10:00 03/23/25 10:00 03/23/25 10:30 Temperature Pulse Rate 84 Respiratory Rate 19 Blood Pressure 107/57 L 113/61 Pulse Oximetry Oxygen Delivery Method 03/23/25 10:30 03/23/25 11:00 03/23/25 11:00 Temperature Pulse Rate 83 95 H Respiratory Rate 24 21 Blood Pressure 105/57 L Pulse Oximetry Oxygen Delivery Method Medical Decision Making Lab Data 03/23/25 06:40 03/23/25 06:40 Labs: Lab Results 03/23/25 Range/Units 06:40 WBC 16.7 H (4.5-11.0) X10^3/uL RBC 3.01 L (4.5-5.9) X10^6/uL Hgb 8.1 L (13.5-17.5) g/dL Hct 22.9 L (41-53) % MCV 76.0 L (80-100) fL MCH 26.8 (26-34) PG MCHC 35.3 (30-36) % RDW 21.3 H (11.6-14.8) % Plt Count 446 H (150-400) X10^3/uL Neut % (Auto) 41.5 L (50-75) % Lymph % (Auto) 49.3 H (25-40) % [place] % (Auto) 6.0 (3-14) % Eos % (Auto) 1.4 L (2-4) % Baso % (Auto) 1.8 (0-2) % Neut # (Auto) 6900 (2097-6829) /uL Lymph # (Auto) 8300 H (6521-3447) /uL [place] # (Auto) 1000 H (0-900) /uL Eos # (Auto) 200 (0-450) /uL Baso # (Auto) 300 H (0-100) /uL Nucleated RBCs 2 H ( - 0) #/Diff RBC Morphology See below Polychromasia 1+ H Anisocytosis 3+ H Microcytosis 1+ H Target Cells 1+ H Tear Drop Cells 1+ H Pierre-[place] Bodies 1+ H Schistocytes 1+ H Sodium 140 (137-145) mmol/L Potassium 3.7 (3.4-5.1) mmol/L Chloride 107 (98-107) mmol/L Carbon Dioxide 22 (22-32) mmol/L BUN 8 L (9-20) mg/dL Creatinine 0.55 L (0.66-1.25) mg/dL Estimated GFR > 60 (>60) mL/min BUN/Creatinine Ratio 14.5 (6-22) Glucose 96 (70-99) mg/dL Calcium 8.5 (8.4-10.2) mg/dL Total Bilirubin 1.1 (0.2-1.3) mg/dL AST 69 H (17-59) IU/L ALT 40 (<50) IU/L Alkaline Phosphatase 108 (38-126) U/L Total Protein 8.0 (6.3-8.2) g/dL Albumin 3.9 (3.5-5.0) g/dL Globulin 4.1 (1.7-4.1) g/dL Albumin/Globulin Ratio 1.0 (1.0-2.8) MDM Narrative Medical decision making narrative: CC: Chest pain right low back pain concern for sickle crisis Complicating co-morbidities: Sickle cell anemia, currently on hydroxyurea, has hydrocodone available at home, recurrent your visits and hospitalizations Data collected from: patient Medical records reviewed: Discharge summary from 04/07 and 03/05 reviewed Differential considered: Acute chest syndrome, sickle crisis, pneumonia, pleuritic chest pain Exam documented above, pertinent findings include: Patient is calm and comfortable. No reproducible chest pain. No obvious abnormalities with right hip pelvis or area of back where pain is concerned. Unchanged left-sided deficits secondary to prior stroke Lab Test results independently reviewed as above. Pertinent findings: CBC shows white count at 16.7, hemoglobin at 8.1, platelets 446, this is close to his baseline Chemistries are reassuring Independently reviewed EKG: Sinus rhythm at a rate of 99, long [place] interval, no ischemic changes Imaging studies independently reviewed: Chest x-ray is unremarkable Treatments: 1 L of fluid Zofran, total of 2 L of Dilaudid Re-evaluations: Patient's pain is down to a 2 Discussion: 24-year-old gentleman with sickle cell disease multiple ER visits and hospitalizations currently on hydroxyurea. He uses hydrocodone at home when he is having pain issues. If the pain is typically above 6 or 7 he is not able to control it without fluids and IV narcotics. He describes his pain as an 8-9 on arrival. This was pain throughout his chest not associated with dyspnea or diaphoresis. He was given a L of fluid, total of 2 mg of IV Dilaudid pain was down to a 2, he feels quite comfortable going home and I believe this is safe and appropriate. I do not believe he has acute chest syndrome or severe sickle crisis at this time. He will continue all of his usual medications and follow up with his primary care doctors. There was no indication for hospitalization or further workup at this time Discharge Plan Departure Patient Disposition: Home Clinical Impression: Sickle cell disease with crisis Instructions: DI for Sickle Cell Anemia, Pain Crisis -- Adult Activity Restrictions/Additional Instructions: Thank you for coming in today You were given a L of fluid, Zofran, a total of 2 mg of Dilaudid and your pain seems to be down enough that you believe it can be controlled with your home medications. Blood work did not show acute findings that would require hospitalization at this time If you find that you are getting worse or develop any new symptoms, please feel free to return to the emergency department for further evaluation. Prescriptions: No Action cholecalciferol (vitamin D3) 10 mcg (400 unit) capsule 20 mcg PO DAILY Qty: 180 0RF Rx Instructions: Start two capsules daily after 6 weeks of 1250mcg weekly dosing. duloxetine 60 mg capsule,delayed release(DR/EC) 60 mg PO DAILY Qty: 90 2RF ondansetron 4 mg tablet,disintegrating 4 mg PO Q8H PRN (Reason: nausea and vomiting) Qty: 20 0RF albuterol sulfate 90 mcg/actuation HFA aerosol inhaler 2 puff inhalation Q6H PRN (Reason: wheezing) naloxone 4 mg/actuation spray,non-aerosol 1 spray intranasal PRN PRN (Reason: Opioid Overdose) Qty: 4 0RF hydroxyurea (sickle cell) 400 mg capsule 400 mg PO DAILY Qty: 90 3RF hydrocodone-acetaminophen 5-325 mg tablet 1 tab PO Q4-6H PRN (Reason: pain) Qty: 20 0RF Referrals: Jen Albarran FNP-BC [Primary Care Provider, Family Practice] Stand Alone Forms: Patient Portal/API
--- NOTE | 2025-03-23 06:34 | EKG_ITS ---
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
--- NOTE | 2025-03-23 06:43 | DI.RAD.S_ITS ---
PROCEDURE: XR CHEST 1V INDICATIONS: chest pain TECHNIQUE: One view of the chest was acquired. COMPARISON: [facility], CR, XR CHEST 1V, 03/08/2025, 19:32. FINDINGS: Surgical changes and devices: None. Lungs and pleura: Lungs are clear. No pleural effusions or pneumothorax. Mediastinum: Mediastinal contours appear normal. Heart size is normal. Bones and chest wall: No suspicious bony lesions. Overlying soft tissues appear unremarkable. IMPRESSION: No acute cardiopulmonary pathology. No discrepancies. Dictated by: Jeremiah Haines M.D. on 03/23/2025 at 7:37 Approved by: Jeremiah Haines M.D. on 03/23/2025 at 7:39
[2025-03-23] MEDS: HYDROMORPHONE 1 MG INJ IV ×5 (06:50→10:41)
[2025-03-23] MEDS: ONDANSETRON 4 MG/2 ML INJ IV (06:50)
[2025-03-23 06:55] LABS: Add Manual Diff / Slide Review NO; Hematocrit 22.9 % (41-53); Hemoglobin 8.1 g/dL (13.5-17.5); Lymphocytes Absolute Auto 8300 /uL (1100-4500); Mean Corpuscular HGB Conc 35.3 % (30-36); Mean Corpuscular Hemoglobin 26.8 PG (26-34); Mean Corpuscular Volume 76.0 fL (80-100); Platelet Count 446 X10^3/uL (150-400)
[2025-03-23] MEDS: SODIUM CHLORIDE 0.9% 1,000 ML 1000 ML IV (07:01)
[2025-03-23 07:09] LABS: Alanine Aminotransferase 40 IU/L (<50); Albumin 3.9 g/dL (3.5-5.0); Albumin Globulin Ratio 1.0 (1.0-2.8); Alkaline Phosphatase 108 U/L (38-126); Blood Urea Nitrogen 8 mg/dL (9-20); Calcium 8.5 mg/dL (8.4-10.2); Carbon Dioxide 22 mmol/L (22-32); Chloride 107 mmol/L (98-107); Estimated Glomerular Filt Rate > 60 mL/min (>60); Globulin 4.1 g/dL (1.7-4.1); Glucose 96 mg/dL (70-99); HEMOLYSIS 39 (0-50); Potassium 3.7 mmol/L (3.4-5.1); Sodium 140 mmol/L (137-145); Total Protein 8.0 g/dL (6.3-8.2)
[2025-03-23 07:31] LABS: Anisocytosis 3+
[2025-03-23 07:32] LABS: Microcytosis 1+; Schistocytes 1+; Target Cells 1+
[2025-03-23 07:36] LABS: Polychromasia 1+; Tear Drop Cells 1+
== END 2025-03-23 11:50 | disposition home or self-care (01) ==
PROVIDERS: Emergency Provider Emergency Medicine; PCP Nurse Practitioner Family
DX: D57.00 Hb-SS disease with crisis, unspecified (principal); R07.9 Chest pain, unspecified
CPT/HCPCS: 36415; 71045; 80053; 85025; 93005; 96361; 96374; 96375; 99284; J1171; J2405

== ENCOUNTER 2025-04-19 08:39 | Emergency (ER) | payer SELFPAY ==
[2025-03-09 01:32] VITALS: BMI 20.2
[2025-04-19 08:57] VITALS: BP 107/66; PULSE 73; RESP 17; TEMP 36.6; O2SAT 97; BMI 18.6
--- NOTE | 2025-04-19 09:21 | ED_ITS ---
HPI - Back Pain/Injury General Chief Complaint: Back Pain/Injury Stated Complaint: pain in back and extremities Time Seen by Provider: 04/19/25 08:42 Source: patient History of Present Illness HPI Narrative: 24-year-old gentleman with known history of sickle cell with multiple visits to the ER for sickle cell disease with crisis with childhood stroke with left-sided deficits here again for pain control back and leg pain. Other than what is stated 14 point review of system is negative. Related Data Home Medications ?Medication ?Instructions ?Recorded ?Confirmed albuterol sulfate 90 mcg/actuation 2 puff inhalation Q 6H PRN wheezing 11/18/24 03/09/25 aerosol inhaler Previous Rx's ?Medication ?Instructions ?Recorded ondansetron 4 mg disintegrating 4 mg PO Q8H PRN nausea and 10/02/24 tablet vomiting #20 tabs cholecalciferol (vitamin D3) 10 20 mcg (2 x 10 mcg (40 0 unit)) PO 10/25/24 mcg (400 unit) capsule DAILY #180 caps naloxone 4 mg/actuation nasal spray 1 spray intranasal PRN PRN Opioid 11/24/24 Overdose #4 ea duloxetine 60 mg capsule,delayed 60 mg PO DAILY #90 ca ps 12/04/24 release hydroxyurea (sickle cell) 400 mg 400 mg PO DAILY #90 c aps 01/12/25 capsule hydrocodone 5 mg-acetaminophen 325 1 tab PO Q4-6H PRN pain #20 tabs 03/15/25 mg tablet Allergies Allergy/AdvReac Type Severity Reaction Status Date / Time No Known Drug Allergies Allergy Verified 04/19/25 08:57 Review of Systems Review of Systems ROS Unobtainable: All systems reviewed & are unremarkable except as noted in HPI and below Patient History Medical History History of CVA (cerebrovascular accident) Vitamin D deficiency PTSD (post-traumatic stress disorder) Depression Anxiety Seizure Anemia Avascular necrosis of bone Contracture, left elbow Contracture, left hand CVA (cerebral vascular accident) Sickle cell anemia Surgical History History of shoulder surgery 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 Family History Father Cancer Sickle cell trait Lupus Mother Sickle cell trait Brother Sickle cell trait Social History household members: significant other Smoking Status: Never smoker alcohol intake: current Smoking Status: Never smoker tobacco type: vaping alcohol intake frequency: holidays/special occasions only Exam Narrative Exam Narrative: GENERAL: [24] year old patient appears stated age. Well-developed patient, in mild distress. HEAD: Atraumatic. Normocephalic. EYES: Pupils equal round and reactive. Extraocular motions intact. No scleral icterus. No injection or drainage. NECK: Trachea midline. Non tender CARDIOVASCULAR: Regular rate and rhythm without murmurs, gallops, or rubs. RESPIRATORY: Clear to auscultation. Breath sounds equal bilaterally. No wheezes, rales, or rhonchi. GASTROINTESTINAL: Abdomen soft, non-tender, nondistended. EXTREMITIES: No edema or joint tenderness. BACK: Nontender without deformity or crepitance. No flank tenderness. NEURO: AOx3. SKIN: No rash or erythema of visible areas Initial Vital Signs Initial Vital Signs: Vital Signs Temperature 97.8 F 04/19/25 08:57 Pulse Rate 73 04/19/25 08:57 Respiratory Rate 17 04/19/25 08:57 Blood Pressure 107/66 04/19/25 08:57 Pulse Oximetry 97 04/19/25 08:57 Oxygen Delivery Method Room Air 04/19/25 08:57 Course Orders Ordered: ED Orders 04/19/25 09:42 CBC Auto Diff [Complete Blood Count AUTO DIFF] Stat CMP [Comprehensive Metabolic Panel] Stat RET [Reticulocyte Count, Percent] Stat Discontinued Medications Hydromorphone HCl (Hydromorphone Hcl 0.5 Mg/0.5 Ml Syringe) 0.5 mg IV NOW ONE Stop: 04/19/25 09:22 Last Admin: 04/19/25 09:45 Dose: 0.5 mg Documented By: BRIGITTE Hydromorphone HCl (Hydromorphone Hcl 0.5 Mg/0.5 Ml Syringe) 0.5 mg IV NOW ONE Stop: 04/19/25 10:39 Last Admin: 04/19/25 10:42 Dose: 0.5 mg Documented By: BRIGITTE Lactated Ringer's (Lactated Ringers) 1,000 mls @ 1,000 mls/hr IV BOLUS ONE Stop: 04/19/25 10:20 Last Infusion: 04/19/25 10:42 Dose: Infused Documented By: Admin: 04/19/25 09:45 Dose: 1,000 mls/hr Documented By: BRIGITTE Ondansetron HCl (Ondansetron 4 Mg/2 Ml Inj) 4 mg IV NOW ONE Stop: 04/19/25 11:03 Last Admin: 04/19/25 11:05 Dose: 4 mg Documented By: Vital Signs Vital signs: Vital Signs - 8 hr 04/19/25 08:57 04/19/25 10:54 04/19/25 10:54 Temperature 97.8 F Pulse Rate 73 67 Respiratory Rate 17 Blood Pressure 107/66 103/66 Pulse Oximetry 97 97 Oxygen Delivery Method Room Air 04/19/25 11:00 Temperature Pulse Rate 64 Respiratory Rate Blood Pressure Pulse Oximetry 97 Oxygen Delivery Method MDM - Back Pain/Injury Lab Data 04/19/25 09:42 04/19/25 09:42 Labs: Lab Results 04/19/25 Range/Units 09:42 WBC 13.0 H (4.5-11.0) X10^3/uL RBC 3.84 L (4.5-5.9) X10^6/uL Hgb 9.8 L (13.5-17.5) g/dL Hct 28.4 L (41-53) % MCV 74.1 L (80-100) fL MCH 25.5 L (26-34) PG MCHC 34.5 (30-36) % RDW 20.2 H (11.6-14.8) % Plt Count 227 (150-400) X10^3/uL Neut % (Auto) Not Reportable Lymph % (Auto) Not Reportable [place] % (Auto) Not Reportable Eos % (Auto) Not Reportable Baso % (Auto) Not Reportable Lymph # (Auto) Not Reportable [place] # (Auto) Not Reportable Baso # (Auto) Not Reportable Total Counted 100 Seg Neutrophils % 50.0 (38-70) % Lymphocytes % (Manual) 35.0 (25-45) % Monocytes % (Manual) 10.0 (2-11) % Eosinophils % (Manual) 2.0 (2-4) % Basophils % (Manual) 1.0 (0-1) % Metamyelocytes % 1.0 H (-0) % Myelocytes % 1.0 H (-0) % Neutrophils # (Manual) 6500 H (8333-4439) /uL RBC Morphology See below Polychromasia 1+ H Anisocytosis 2+ H Microcytosis 1+ H Sickle Cells 1+ H Target Cells 1+ H Tear Drop Cells 1+ H Percent Retic 6.4 H (0.9-2.6) % Sodium 139 (137-145) mmol/L Potassium 3.8 (3.4-5.1) mmol/L Chloride 107 (98-107) mmol/L Carbon Dioxide 23 (22-32) mmol/L BUN 5 L (9-20) mg/dL Creatinine 0.66 (0.66-1.25) mg/dL Estimated GFR > 60 (>60) mL/min BUN/Creatinine Ratio 7.6 (6-22) Glucose 84 (70-99) mg/dL Calcium 8.6 (8.4-10.2) mg/dL Total Bilirubin 2.6 H (0.2-1.3) mg/dL AST 59 (17-59) IU/L ALT 22 (<50) IU/L Alkaline Phosphatase 75 (38-126) U/L Total Protein 8.0 (6.3-8.2) g/dL Albumin 4.5 (3.5-5.0) g/dL Globulin 3.5 (1.7-4.1) g/dL Albumin/Globulin Ratio 1.3 (1.0-2.8) MDM Narrative Medical decision making narrative: Vital signs, nurse triage note, medication list, previous ER visits and all imaging studies reviewed. Pt given dilaudid 0.5mg IV x 3. LR 1L bolus x 1. Pt feels much better. Retic count 6.4. D/c home to f/u with hematology once Insurance paperwork gets approved. Discharge Plan Departure Patient Disposition: Home Clinical Impression: Sickle cell disease with crisis Instructions: DI for Sickle Cell Anemia, Pain Crisis -- Adult Activity Restrictions/Additional Instructions: Return with new or worsening symptoms. Follow up with Hematology once insurance is approved. Prescriptions: No Action cholecalciferol (vitamin D3) 10 mcg (400 unit) capsule 20 mcg PO DAILY Qty: 180 0RF Rx Instructions: Start two capsules daily after 6 weeks of 1250mcg weekly dosing. duloxetine 60 mg capsule,delayed release(DR/EC) 60 mg PO DAILY Qty: 90 2RF ondansetron 4 mg tablet,disintegrating 4 mg PO Q8H PRN (Reason: nausea and vomiting) Qty: 20 0RF albuterol sulfate 90 mcg/actuation HFA aerosol inhaler 2 puff inhalation Q6H PRN (Reason: wheezing) naloxone 4 mg/actuation spray,non-aerosol 1 spray intranasal PRN PRN (Reason: Opioid Overdose) Qty: 4 0RF hydroxyurea (sickle cell) 400 mg capsule 400 mg PO DAILY Qty: 90 3RF hydrocodone-acetaminophen 5-325 mg tablet 1 tab PO Q4-6H PRN (Reason: pain) Qty: 20 0RF Referrals: Jen Albarran FNP-BC [Primary Care Provider, Family Practice] Stand Alone Forms: Patient Portal/API
[2025-04-19] MEDS: LACTATED RINGERS 1,000 ML 1000 ML IV ×2 (09:45→11:15)
[2025-04-19 10:03] LABS: Alanine Aminotransferase 22 IU/L (<50); Albumin 4.5 g/dL (3.5-5.0); Albumin Globulin Ratio 1.3 (1.0-2.8); Alkaline Phosphatase 75 U/L (38-126); Blood Urea Nitrogen 5 mg/dL (9-20); Calcium 8.6 mg/dL (8.4-10.2); Carbon Dioxide 23 mmol/L (22-32); Chloride 107 mmol/L (98-107); Estimated Glomerular Filt Rate > 60 mL/min (>60); Globulin 3.5 g/dL (1.7-4.1); Glucose 84 mg/dL (70-99); HEMOLYSIS 22 (0-50); Potassium 3.8 mmol/L (3.4-5.1); Sodium 139 mmol/L (137-145); Total Protein 8.0 g/dL (6.3-8.2)
[2025-04-19 10:06] LABS: Reticulocyte Count, Percent 6.4 % (0.9-2.6)
[2025-04-19 10:07] LABS: Add Manual Diff / Slide Review YES; Hematocrit 28.4 % (41-53); Hemoglobin 9.8 g/dL (13.5-17.5); Mean Corpuscular HGB Conc 34.5 % (30-36); Mean Corpuscular Hemoglobin 25.5 PG (26-34); Mean Corpuscular Volume 74.1 fL (80-100); Platelet Count 227 X10^3/uL (150-400)
[2025-04-19 10:16] LABS: Basophils Percent Manual 1.0 % (0-1); Eosinophils Percent Manual 2.0 % (2-4); Lymphocytes Percent Manual 35.0 % (25-45); Metamyelocytes Percent 1.0 % (-0); Monocytes Percent Manual 10.0 % (2-11); Myelocytes Percent 1.0 % (-0); Neutrophils Absolute Manual 6500 /uL (3000-5900); Segmented Neutrophils Percent 50.0 % (38-70); Total Cells Counted 100
[2025-04-19 10:17] LABS: Anisocytosis 2+; Sickle Cells 1+
[2025-04-19 10:18] LABS: Microcytosis 1+; Target Cells 1+
[2025-04-19 10:19] LABS: Polychromasia 1+; Tear Drop Cells 1+
[2025-04-19 10:54] VITALS: BP 103/66; PULSE 67; O2SAT 97
[2025-04-19 11:00] VITALS: PULSE 64; O2SAT 97
[2025-04-19] MEDS: ONDANSETRON 4 MG/2 ML INJ IV (11:05)
[2025-04-19 11:30] VITALS: O2SAT 96
[2025-04-19 12:00] VITALS: O2SAT 94
[2025-04-19 14:01] VITALS: BP 99/65; PULSE 74; O2SAT 99
== END 2025-04-19 14:06 | disposition home or self-care (01) ==
PROVIDERS: Emergency Provider Family Medicine; PCP Nurse Practitioner Family
DX: D57.00 Hb-SS disease with crisis, unspecified (principal)
CPT/HCPCS: 80053; 85007; 85025; 85045; 96361; 96374; 96375; 96376; 99283; 99284; J1171; J2405

== ENCOUNTER 2025-04-19 17:12 | Emergency (ER) | payer SELFPAY ==
[2025-03-09 01:32] VITALS: BMI 20.2
[2025-04-19 17:17] VITALS: BP 110/57; PULSE 81; RESP 20; TEMP 37; O2SAT 97; BMI 18.6
--- NOTE | 2025-04-19 23:13 | ED_ITS ---
HPI - Extremity Injury (Lower) General Chief Complaint: Extremity Injury, Lower Stated Complaint: L Leg Pain Time Seen by Provider: 04/19/25 17:26 Source: patient Mode of arrival: Wheelchair Related Data Home Medications ?Medication ?Instructions ?Recorded ?Confirmed albuterol sulfate 90 mcg/actuation 2 puff inhalation Q 6H PRN wheezing 11/18/24 03/09/25 aerosol inhaler Previous Rx's ?Medication ?Instructions ?Recorded ondansetron 4 mg disintegrating 4 mg PO Q8H PRN nausea and 10/02/24 tablet vomiting #20 tabs cholecalciferol (vitamin D3) 10 20 mcg (2 x 10 mcg (40 0 unit)) PO 10/25/24 mcg (400 unit) capsule DAILY #180 caps naloxone 4 mg/actuation nasal spray 1 spray intranasal PRN PRN Opioid 11/24/24 Overdose #4 ea duloxetine 60 mg capsule,delayed 60 mg PO DAILY #90 ca ps 12/04/24 release hydroxyurea (sickle cell) 400 mg 400 mg PO DAILY #90 c aps 01/12/25 capsule hydrocodone 5 mg-acetaminophen 325 1 tab PO Q4-6H PRN pain #20 tabs 03/15/25 mg tablet Allergies Allergy/AdvReac Type Severity Reaction Status Date / Time No Known Drug Allergies Allergy Verified 04/19/25 08:57 Patient History Medical History History of CVA (cerebrovascular accident) Vitamin D deficiency PTSD (post-traumatic stress disorder) Depression Anxiety Seizure Anemia Avascular necrosis of bone Contracture, left elbow Contracture, left hand CVA (cerebral vascular accident) Sickle cell anemia Surgical History History of shoulder surgery 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 Family History Father Cancer Sickle cell trait Lupus Mother Sickle cell trait Brother Sickle cell trait Social History household members: significant other alcohol intake: current Smoking Status: Never smoker tobacco type: vaping alcohol intake frequency: holidays/special occasions only Exam Initial Vital Signs Initial Vital Signs: Vital Signs Temperature 98.6 F 04/19/25 17:17 Pulse Rate 81 04/19/25 17:17 Respiratory Rate 20 04/19/25 17:17 Blood Pressure 110/57 L 04/19/25 17:17 Pulse Oximetry 97 04/19/25 17:17 Oxygen Delivery Method Room Air 04/19/25 17:17 Course Vital Signs Vital signs: Vital Signs - 8 hr 04/19/25 17:17 Temperature 98.6 F Pulse Rate 81 Respiratory Rate 20 Blood Pressure 110/57 L Pulse Oximetry 97 Oxygen Delivery Method Room Air Discharge Plan Departure Patient Disposition: Left Without Being Seen Clinical Impression: Patient left without being seen Prescriptions: No Action cholecalciferol (vitamin D3) 10 mcg (400 unit) capsule 20 mcg PO DAILY Qty: 180 0RF Rx Instructions: Start two capsules daily after 6 weeks of 1250mcg weekly dosing. duloxetine 60 mg capsule,delayed release(DR/EC) 60 mg PO DAILY Qty: 90 2RF ondansetron 4 mg tablet,disintegrating 4 mg PO Q8H PRN (Reason: nausea and vomiting) Qty: 20 0RF albuterol sulfate 90 mcg/actuation HFA aerosol inhaler 2 puff inhalation Q6H PRN (Reason: wheezing) naloxone 4 mg/actuation spray,non-aerosol 1 spray intranasal PRN PRN (Reason: Opioid Overdose) Qty: 4 0RF hydroxyurea (sickle cell) 400 mg capsule 400 mg PO DAILY Qty: 90 3RF hydrocodone-acetaminophen 5-325 mg tablet 1 tab PO Q4-6H PRN (Reason: pain) Qty: 20 0RF
== END 2025-04-19 19:17 | disposition left against medical advice (07) ==
PROVIDERS: Emergency Provider Family Medicine; PCP Nurse Practitioner Family
CPT/HCPCS: 99281

== ENCOUNTER 2025-04-19 21:08 | Emergency (ER) | payer SELFPAY ==
[2025-03-09 01:32] VITALS: BMI 20.2
[2025-04-19 21:10] VITALS: BP 101/68; PULSE 77; PULSE 82; RESP 18; TEMP 36.6; O2SAT 100; O2SAT 98; BMI 18.6
[2025-04-19 21:30] VITALS: BP 100/59; PULSE 89; O2SAT 96
[2025-04-19 21:34] LABS: Alanine Aminotransferase 23 IU/L (<50); Albumin 4.7 g/dL (3.5-5.0); Albumin Globulin Ratio 1.3 (1.0-2.8); Alkaline Phosphatase 66 U/L (38-126); Blood Urea Nitrogen 4 mg/dL (9-20); Calcium 8.6 mg/dL (8.4-10.2); Carbon Dioxide 23 mmol/L (22-32); Chloride 104 mmol/L (98-107); Estimated Glomerular Filt Rate > 60 mL/min (>60); Globulin 3.5 g/dL (1.7-4.1); Glucose 81 mg/dL (70-99); HEMOLYSIS 30 (0-50); Potassium 3.4 mmol/L (3.4-5.1); Sodium 140 mmol/L (137-145); Total Protein 8.2 g/dL (6.3-8.2)
--- NOTE | 2025-04-19 21:36 | ED.EXTPRO ---
HPI - Extremity Problem General Chief complaint: Extremity Problem,Nontraumatic Stated complaint: Leg pain Time Seen by Provider: 04/19/25 21:13 Source: EMS Mode of arrival: EMS History of Present Illness HPI Narrative: 74-year-old male known history of sickle cell disease with childhood stroke with left-sided deficits comes into the ED from home for evaluation of pain to his legs, states that this is his typical leg pain, no trauma no falls, states that he was seen here for the same but states that the pain came back. He denies any actual chest pain shortness of breath. Patient was initially here in the waiting room but went home and called ambulance patient was given 50 mcg of fentanyl prior to arrival. Patient is at his baseline. Related Data Home Medications ?Medication ?Instructions ?Recorded ?Confirmed albuterol sulfate 90 mcg/actuation 2 puff inhalation Q6H PRN wheezing 11/18/24 03/09/25 aerosol inhaler Previous Rx's ?Medication ?Instructions ?Recorded ondansetron 4 mg disintegrating 4 mg PO Q8H PRN nausea and 10/02/24 tablet vomiting #20 tabs cholecalciferol (vitamin D3) 10 20 mcg (2 x 10 mcg (400 unit)) PO 10/25/24 mcg (400 unit) capsule DAILY #180 caps naloxone 4 mg/actuation nasal spray 1 spray intranasal PRN PRN Opioid 11/24/24 Overdose #4 ea duloxetine 60 mg capsule,delayed 60 mg PO DAILY #90 caps 12/04/24 release hydroxyurea (sickle cell) 400 mg 400 mg PO DAILY #90 caps 01/12/25 capsule hydrocodone 5 mg-acetaminophen 325 1 tab PO Q4-6H PRN pain #20 tabs 03/15/25 mg tablet Allergies Allergy/AdvReac Type Severity Reaction Status Date / Time No Known Drug Allergies Allergy Verified 04/19/25 08:57 Review of Systems Review of Systems Narrative: General: Denies fever, chills, weight loss HEENT: Denies headache, eye drainage, eye irritation, head trauma, sore throat, voice change Cardiovascular: Denies any chest pain, palpitations, tachycardia Respiratory: Denies any shortness of breath, cough, wheeze, stridor GI/: Denies any abdominal pain, nausea, vomiting, diarrhea, bright red blood per rectum, melanotic stools, urinary frequency, urinary retention, dysuria, hematuria MSK: Positive right hip pain Skin: Denies any rashes, lesions, discoloration Neuro: Denies any headache, lightheadedness, dizziness, fainting, weakness Psych: Denies SI/HI Patient History Medical History History of CVA (cerebrovascular accident) Vitamin D deficiency PTSD (post-traumatic stress disorder) Depression Anxiety Seizure Anemia Avascular necrosis of bone Contracture, left elbow Contracture, left hand CVA (cerebral vascular accident) Sickle cell anemia Surgical History History of shoulder surgery 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 Family History Father Cancer Sickle cell trait Lupus Mother Sickle cell trait Brother Sickle cell trait Social History household members: significant other alcohol intake: current tobacco type: vaping alcohol intake frequency: holidays/special occasions only Exam Narrative Exam Narrative: Exam Narrative: General: Cooperative, comfortable, well-developed, not in acute distress HEENT: Normocephalic, atraumatic, PERRLA, normal sclera, eyelids normal, Neck: Active full range of motion, atraumatic Chest: Normal to inspection, negative crepitus, no overlying erythema ecchymosis Respiratory: Normal respiratory effort, not in acute respiratory distress, clear to auscultation bilaterally negative cough, wheeze, tachypnea, rhonchi, rales Cardiology: Regular rate rhythm negative gallop, murmur, rubs GI/: Normal to inspection, soft, nonrigid, no tenderness to palpation, exam deferred MSK: patient with baseline left upper extremity deficits from history of vaso-occlusive crisis in the past, bilateral lower extremities neurovascularly intact able to stand bear weight ambulate unassisted here in the emergency department Skin: No rashes lesions noted Neuro: Alert awake oriented x3, m, cranial nerves intact, able to answer all questions appropriately follows commands appropriately Psych: Cooperative, negative suicidal or homicidal ideations Initial Vital Signs Initial Vital Signs: Vital Signs Temperature 98 F 04/19/25 21:10 Pulse Rate 77 04/19/25 21:10 Respiratory Rate 18 04/19/25 21:10 Blood Pressure 101/68 04/19/25 21:10 Pulse Oximetry 98 04/19/25 21:10 Oxygen Delivery Method Room Air 04/19/25 21:10 Course Orders Ordered: ED Orders 04/19/25 21:10 CBC Auto Diff [Complete Blood Count AUTO DIFF] Stat CMP [Comprehensive Metabolic Panel] Stat RET [Reticulocyte Count, Percent] Stat Discontinued Medications Hydromorphone HCl (Hydromorphone 1 Mg/Ml Syringe) 1 mg IV Q1HR [facility] Stop: 04/20/25 00:01 Last Admin: 04/20/25 00:10 Dose: 1 mg Documented By: Admin: 04/19/25 23:06 Dose: 1 mg Documented By: Admin: 04/19/25 22:00 Dose: 1 mg Documented By: DERIAN Vital Signs Vital signs: Vital Signs - 8 hr 04/19/25 21:10 04/19/25 21:10 04/19/25 21:30 Temperature 98 F Pulse Rate 77 82 89 Respiratory Rate 18 Blood Pressure 101/68 Pulse Oximetry 98 100 96 Oxygen Delivery Method Room Air 04/19/25 21:30 04/19/25 22:00 04/19/25 22:00 Temperature Pulse Rate Respiratory Rate 16 Blood Pressure 100/59 L 103/66 Pulse Oximetry 97 Oxygen Delivery Method 04/19/25 22:30 04/19/25 22:30 04/19/25 23:00 Temperature Pulse Rate 73 79 Respiratory Rate Blood Pressure 106/61 Pulse Oximetry 85 L 95 Oxygen Delivery Method 04/19/25 23:00 04/19/25 23:30 04/19/25 23:30 Temperature Pulse Rate 87 Respiratory Rate 20 Blood Pressure 111/59 L 115/57 L Pulse Oximetry 95 Oxygen Delivery Method 04/20/25 00:00 04/20/25 00:00 Temperature Pulse Rate 77 Respiratory Rate 16 Blood Pressure 115/69 Pulse Oximetry 93 Oxygen Delivery Method MDM - Extremity (Nontraumatic) Lab Data 04/19/25 21:10 04/19/25 21:10 Labs: Lab Results 04/19/25 Range/Units 21:10 WBC 14.4 H (4.5-11.0) X10^3/uL RBC 3.65 L (4.5-5.9) X10^6/uL Hgb 9.4 L (13.5-17.5) g/dL Hct 27.0 L (41-53) % MCV 73.8 L (80-100) fL MCH 25.7 L (26-34) PG MCHC 34.8 (30-36) % RDW 20.9 H (11.6-14.8) % Plt Count 228 (150-400) X10^3/uL Neut % (Auto) 50.3 (50-75) % Lymph % (Auto) 39.8 (25-40) % Robeson % (Auto) 7.9 (3-14) % Eos % (Auto) 1.2 L (2-4) % Baso % (Auto) 0.8 (0-2) % Neut # (Auto) 7200 H (6601-5455) /uL Lymph # (Auto) 5700 H (5286-6989) /uL Robeson # (Auto) 1100 H (0-900) /uL Eos # (Auto) 200 (0-450) /uL Baso # (Auto) 100 (0-100) /uL Platelet Estimate Adequate on smear RBC Morphology See below Anisocytosis 2+ H Microcytosis 1+ H Macrocytosis 1+ H Sickle Cells 1+ H Target Cells 1+ H Schistocytes 1+ H Percent Retic 6.2 H (0.9-2.6) % Sodium 140 (137-145) mmol/L Potassium 3.4 (3.4-5.1) mmol/L Chloride 104 (98-107) mmol/L Carbon Dioxide 23 (22-32) mmol/L BUN 4 L (9-20) mg/dL Creatinine 0.68 (0.66-1.25) mg/dL Estimated GFR > 60 (>60) mL/min BUN/Creatinine Ratio 5.9 L (6-22) Glucose 81 (70-99) mg/dL Calcium 8.6 (8.4-10.2) mg/dL Total Bilirubin 2.3 H (0.2-1.3) mg/dL AST 60 H (17-59) IU/L ALT 23 (<50) IU/L Alkaline Phosphatase 66 (38-126) U/L Total Protein 8.2 (6.3-8.2) g/dL Albumin 4.7 (3.5-5.0) g/dL Globulin 3.5 (1.7-4.1) g/dL Albumin/Globulin Ratio 1.3 (1.0-2.8) MDM Narrative Medical decision making narrative: 24-year-old male history of sickle cell disease prior splenectomy childhood stroke with residual left-sided deficit presenting for his typical sickle cell pain today it is to his right hip, no new symptoms neurovascularly intact, patient's lab work had baseline, patient did receive 3 doses of Dilaudid. He did have resolution of his symptoms here, he was given strict return precautions verbalized understanding of this and agrees to being discharged home with outpatient follow up Discharge Plan Departure Patient Disposition: Home Clinical Impression: Sickle cell disease with crisis Instructions: DI for Sickle Cell Anemia, Pain Crisis -- Adult Activity Restrictions/Additional Instructions: Please follow up with your primary care doctor Please read the discharge instructions sheet carefully and bring all papers to all doctor follow-up visits, as it may contain information that your doctor may want to see. Disease processes change and evolve, if your symptoms worsen or if you develop any new symptoms that are concerning to you please return for evaluation. Your evaluation today does not show any evidence of any life-threatening/serious illnesses requiring admission to the hospital or surgery. Please follow-up with your doctor for re-evaluation in approximately 1 day. Seek immediate medical attention for any worrisome symptoms. *If you do not have a primary care provider please contact the [facility] Resource line at [phone]. They will ask some questions about your medical history and help get you set up with a doctor in the community. Prescriptions: No Action cholecalciferol (vitamin D3) 10 mcg (400 unit) capsule 20 mcg PO DAILY Qty: 180 0RF Rx Instructions: Start two capsules daily after 6 weeks of 1250mcg weekly dosing. duloxetine 60 mg capsule,delayed release(DR/EC) 60 mg PO DAILY Qty: 90 2RF ondansetron 4 mg tablet,disintegrating 4 mg PO Q8H PRN (Reason: nausea and vomiting) Qty: 20 0RF albuterol sulfate 90 mcg/actuation HFA aerosol inhaler 2 puff inhalation Q6H PRN (Reason: wheezing) naloxone 4 mg/actuation spray,non-aerosol 1 spray intranasal PRN PRN (Reason: Opioid Overdose) Qty: 4 0RF hydroxyurea (sickle cell) 400 mg capsule 400 mg PO DAILY Qty: 90 3RF hydrocodone-acetaminophen 5-325 mg tablet 1 tab PO Q4-6H PRN (Reason: pain) Qty: 20 0RF Referrals: Jen Albarran FNP-BC [Primary Care Provider, Family Practice] Stand Alone Forms: Patient Portal/API
[2025-04-19 21:52] LABS: Add Manual Diff / Slide Review NO; Hematocrit 27.0 % (41-53); Hemoglobin 9.4 g/dL (13.5-17.5); Lymphocytes Absolute Auto 5700 /uL (1100-4500); Mean Corpuscular HGB Conc 34.8 % (30-36); Mean Corpuscular Hemoglobin 25.7 PG (26-34); Mean Corpuscular Volume 73.8 fL (80-100); Platelet Count 228 X10^3/uL (150-400)
[2025-04-19 22:00] VITALS: BP 103/66; RESP 16; O2SAT 97
[2025-04-19 22:12] LABS: Reticulocyte Count, Percent 6.2 % (0.9-2.6)
[2025-04-19 22:30] VITALS: BP 106/61; PULSE 73; O2SAT 85
[2025-04-19 22:34] LABS: Anisocytosis 2+; Macrocytosis 1+; Microcytosis 1+; Schistocytes 1+; Sickle Cells 1+; Target Cells 1+
[2025-04-19 23:00] VITALS: BP 111/59; PULSE 79; O2SAT 95
[2025-04-19 23:30] VITALS: BP 115/57; PULSE 87; RESP 20; O2SAT 95
[2025-04-20] VITALS: BP 115/69; PULSE 77; RESP 16; O2SAT 93
== END 2025-04-20 00:37 | disposition home or self-care (01) ==
PROVIDERS: Emergency Provider Student in an Organized Health Care Education/Training Program; PCP Nurse Practitioner Family
DX: D57.00 Hb-SS disease with crisis, unspecified (principal)
CPT/HCPCS: 80053; 85025; 85045; 96374; 96376; 99283; 99284; J1171

== ENCOUNTER 2025-04-20 07:54 | Emergency (ER) | payer SELFPAY ==
[2025-03-09 01:32] VITALS: BMI 20.2
[2025-04-20] VITALS (7 sets, daily range): BP systolic 112–119; BP diastolic 68–75; PULSE 69–82; RESP 16; TEMP 36.8; O2SAT 95–100; BMI 18.6
--- NOTE | 2025-04-20 08:21 | ED_ITS ---
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 He says frequently when he has a sickle cell crisis no he does get leg pain. He reports that he has pain just superior to his left knee. It is almost pinpoint. It does not seem to be radiating to his buttocks. It is worse when he walks he has a hard time bearing weight. This happens frequently with his sickle cell crisis. He denies any chest pain shortness of breath. He did feel nauseous and threw up once but no abdominal pain now and no longer feeling nauseous. Yesterday reticulocyte was 6.4 with repeat of 6.2 he has a increasing white count from 13-14. Here at least 15 times since February, with 2 admissions. Previously admitted March 09, with right leg pain starting from hip, at that time his reticulocyte count was 9 6 and hemoglobin of 7.7 Previously admitted March 02 with pneumonia. Prior note show left hip osteonecrosis Related Data Home Medications ?Medication ?Instructions ?Recorded ?Confirmed albuterol sulfate 90 mcg/actuation 2 puff inhalation Q 6H PRN wheezing 11/18/24 03/09/25 aerosol inhaler Previous Rx's ?Medication ?Instructions ?Recorded ondansetron 4 mg disintegrating 4 mg PO Q8H PRN nausea and 10/02/24 tablet vomiting #20 tabs cholecalciferol (vitamin D3) 10 20 mcg (2 x 10 mcg (40 0 unit)) PO 10/25/24 mcg (400 unit) capsule DAILY #180 caps naloxone 4 mg/actuation nasal spray 1 spray intranasal PRN PRN Opioid 11/24/24 Overdose #4 ea duloxetine 60 mg capsule,delayed 60 mg PO DAILY #90 ca ps 12/04/24 release hydroxyurea (sickle cell) 400 mg 400 mg PO DAILY #90 c aps 01/12/25 capsule hydrocodone 5 mg-acetaminophen 325 1 tab PO Q4-6H PRN pain #20 tabs 03/15/25 mg tablet hydroxyurea (sickle cell) 400 mg 800 mg (2 x 400 mg) P O DAILY #120 04/20/25 capsule caps Allergies Allergy/AdvReac Type Severity Reaction Status Date / Time No Known Drug Allergies Allergy Verified 04/20/25 08:07 Patient History Medical History History of CVA (cerebrovascular accident) Vitamin D deficiency PTSD (post-traumatic stress disorder) Depression Anxiety Seizure Anemia Avascular necrosis of bone Contracture, left elbow Contracture, left hand CVA (cerebral vascular accident) Sickle cell anemia Surgical History History of shoulder surgery 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 Family History Father Cancer Sickle cell trait Lupus Mother Sickle cell trait Brother Sickle cell trait Social History household members: significant other alcohol intake: current tobacco type: vaping alcohol intake frequency: holidays/special occasions only Exam Initial Vital Signs Initial Vital Signs: Vital Signs Temperature 98.3 F 04/20/25 08:07 Pulse Rate 76 04/20/25 08:07 Respiratory Rate 16 04/20/25 08:07 Blood Pressure 112/68 04/20/25 08:07 Pulse Oximetry 100 04/20/25 08:07 Oxygen Delivery Method Room Air 04/20/25 08:07 GENERAL: Alert well-appearing 24-year-old male and in [no acute] distress. HEENT: Head atraumatic,EOMI, pupils reactive, face symmetric, [moist] mucous membranes CARDIOVASCULAR: Regular rate and rhythm without murmurs, rubs or gallops. RESPIRATORY: Breath sounds equal bilaterally, no wheezes rales or rhonchi. ABDOMEN: Soft, nontender. Normoactive bowel sounds all 4 quadrants. No guarding or rebound. EXTREMITIES: Normal range of motion, no clubbing or edema. Neurovascularly intact Strong bilateral distal pedal pulses, feet are warm Left knee is stable pain slightly reproducible superior NEUROLOGICAL: Alert and oriented x4.Normal gait and speech. Cranial nerves II through XII grossly intact. SKIN: Warm, dry, no laceration, no petechiae, no rashes or lesions. Course Orders Ordered: ED Orders 04/20/25 08:20 CBC Auto Diff [Complete Blood Count AUTO DIFF] Stat CMP [Comprehensive Metabolic Panel] Stat RETIC [Reticulocyte Count, Percent] Stat 04/20/25 08:22 US arterial duplex LE LT Stat 04/20/25 08:25 Consult to [facility] [place] [employer] Equipment Service Manager Stat Discontinued Medications Hydromorphone HCl (Hydromorphone 1 Mg/Ml Syringe) 1 mg IV NOW ONE Stop: 04/20/25 08:21 Last Admin: 04/20/25 08:53 Dose: 1 mg Sodium Chloride (Normal Saline 0.9%) 1,000 mls @ 1,000 mls/hr IV BOLUS ONE Stop: 04/20/25 09:19 Last Admin: 04/20/25 08:54 Dose: 1,000 mls/hr Vital Signs Vital signs: Vital Signs - 8 hr 04/20/25 08:07 Temperature 98.3 F Pulse Rate 76 Respiratory Rate 16 Blood Pressure 112/68 Pulse Oximetry 100 Oxygen Delivery Method Room Air MDM - Extremity Injury (Lower) Lab Data 04/20/25 08:39 04/20/25 08:39 Labs: Lab Results 04/20/25 Range/Units 08:39 WBC 12.5 H (4.5-11.0) X10^3/uL RBC 3.67 L (4.5-5.9) X10^6/uL Hgb 9.4 L (13.5-17.5) g/dL Hct 27.0 L (41-53) % MCV 73.6 L (80-100) fL MCH 25.6 L (26-34) PG MCHC 34.8 (30-36) % RDW 20.7 H (11.6-14.8) % Plt Count 234 (150-400) X10^3/uL Neut % (Auto) 50.7 (50-75) % Lymph % (Auto) 35.7 (25-40) % Ashley % (Auto) 10.9 (3-14) % Eos % (Auto) 1.9 L (2-4) % Baso % (Auto) 0.8 (0-2) % Neut # (Auto) 6300 (2051-1498) /uL Lymph # (Auto) 4500 (8708-9436) /uL Ashley # (Auto) 1400 H (0-900) /uL Eos # (Auto) 200 (0-450) /uL Baso # (Auto) 100 (0-100) /uL RBC Morphology See below Polychromasia 1+ H Anisocytosis 2+ H Microcytosis 1+ H Sickle Cells 1+ H Target Cells 1+ H Pierre-Lucky Bodies 1+ H Percent Retic 7.2 H (0.9-2.6) % Sodium 135 L (137-145) mmol/L Potassium 4.1 (3.4-5.1) mmol/L Chloride 103 (98-107) mmol/L Carbon Dioxide 23 (22-32) mmol/L BUN 3 L (9-20) mg/dL Creatinine 0.62 L (0.66-1.25) mg/dL Estimated GFR > 60 (>60) mL/min BUN/Creatinine Ratio 4.8 L (6-22) Glucose 80 (70-99) mg/dL Calcium 8.1 L (8.4-10.2) mg/dL Total Bilirubin 3.3 H (0.2-1.3) mg/dL AST 64 H (17-59) IU/L ALT 23 (<50) IU/L Alkaline Phosphatase 74 (38-126) U/L Total Protein 7.7 (6.3-8.2) g/dL Albumin 4.3 (3.5-5.0) g/dL Globulin 3.4 (1.7-4.1) g/dL Albumin/Globulin Ratio 1.3 (1.0-2.8) MDM Narrative Medical decision making narrative: MDM CC: Left leg pain Complicating co-morbidities: Sickle cell, CVA, Data collected from: Patient Social challenges: Patient claims that he is having some insurance issues he says it was canceled he is having a hard time talking to an actual human. Has not yet followed up with his primary but thinks he has an appointment coming up unclear if he has actually seen a virologist. I have put in a social work consult to help with frequent ED visits Medical records reviewed: Previous ED records previous admission Differential considered: Sickle cell crisis arterial occlusion, avascular necrosis of his Exam documented above, pertinent findings include: Alert well-appearing 24-year-old male good strong distal pedal pulses bilaterally with warm feet breath sounds equal no respiratory distress Lab Test results independently reviewed as above. Pertinent findings: Reticulocyte 7.2 which is about baseline although rising yesterday it was 6.4, Hemoglobin stable at 9.4 WBC is 12.5 previously was 14.4 Electrolytes within normal limits Consultations: Dr. Mitchell, on-call for hospitalist discussion about observation versus discharging home. He recommends that patient have his hydroxyurea titrated up he says he can go as high as 2200 mg a day and is currently only taking 400 mg. Treatments: Dilaudid IV fluids Re-evaluations: Discussion with patient about admission versus discharge home. He is agreeable to increase his hydroxyurea his pain is much better controlled after 2 doses of Dilaudid. Discussion: Patient is a 24-year-old male history of sickle cell anemia presents today with left leg pain. He has frequent ED visits. Labs are increasing reticulocyte count is going up in his now 7.2 however this is not uncommon for him. He is not anemic he has no significant leukocytosis. He is having anterior pinpoint left leg pain. It is not hip pain he has good strong distal pedal pulses feet are warm no concern for an arterial occlusion or avascular necrosis of the hip at this time. Patient is having very frequent ED visits he really does not need an ED care plan he needs close outpatient follow-up. I have put in a social work consult to help facilitate this unsure if this will be useful. Discharge Plan Departure Patient Disposition: Home Clinical Impression: Sickle cell anemia with pain Activity Restrictions/Additional Instructions: *You have been diagnosed with sickle cell *What to do: At this time you will need to see a primary care provider to help titrate the hydroxyurea up. You will also need to see hematology. I have put in a consult for social work hopefully they can call you in the next day or so they might be able to help with insurance as well *Continue to take medications as directed Increase hydroxyurea to 400 mg twice a day *Follow up with your primary care provider in 2-3 days or call [phone] *Return to ER if you should have increasing pain chest pain shortness of [or] any new, worsening or concerning symptoms Prescriptions: New hydroxyurea (sickle cell) 400 mg capsule 800 mg PO DAILY Qty: 120 0RF No Action cholecalciferol (vitamin D3) 10 mcg (400 unit) capsule 20 mcg PO DAILY Qty: 180 0RF Rx Instructions: Start two capsules daily after 6 weeks of 1250mcg weekly dosing. duloxetine 60 mg capsule,delayed release(DR/EC) 60 mg PO DAILY Qty: 90 2RF ondansetron 4 mg tablet,disintegrating 4 mg PO Q8H PRN (Reason: nausea and vomiting) Qty: 20 0RF albuterol sulfate 90 mcg/actuation HFA aerosol inhaler 2 puff inhalation Q6H PRN (Reason: wheezing) naloxone 4 mg/actuation spray,non-aerosol 1 spray intranasal PRN PRN (Reason: Opioid Overdose) Qty: 4 0RF hydroxyurea (sickle cell) 400 mg capsule 400 mg PO DAILY Qty: 90 3RF hydrocodone-acetaminophen 5-325 mg tablet 1 tab PO Q4-6H PRN (Reason: pain) Qty: 20 0RF Referrals: Jen Albarran, ENGRAVING PATTERNMAKER-BC [Primary Care Provider, Family Practice] Stand Alone Forms: Patient Portal/API
[2025-04-20 08:49] LABS: Add Manual Diff / Slide Review NO; Hematocrit 27.0 % (41-53); Hemoglobin 9.4 g/dL (13.5-17.5); Lymphocytes Absolute Auto 4500 /uL (1100-4500); Mean Corpuscular HGB Conc 34.8 % (30-36); Mean Corpuscular Hemoglobin 25.6 PG (26-34); Mean Corpuscular Volume 73.6 fL (80-100); Platelet Count 234 X10^3/uL (150-400)
[2025-04-20] MEDS: SODIUM CHLORIDE 0.9% 1,000 ML 1000 ML IV (08:54)
[2025-04-20 08:58] LABS: Alanine Aminotransferase 23 IU/L (<50); Albumin 4.3 g/dL (3.5-5.0); Albumin Globulin Ratio 1.3 (1.0-2.8); Alkaline Phosphatase 74 U/L (38-126); Blood Urea Nitrogen 3 mg/dL (9-20); Calcium 8.1 mg/dL (8.4-10.2); Carbon Dioxide 23 mmol/L (22-32); Chloride 103 mmol/L (98-107); Estimated Glomerular Filt Rate > 60 mL/min (>60); Globulin 3.4 g/dL (1.7-4.1); Glucose 80 mg/dL (70-99); HEMOLYSIS 41 (0-50); Potassium 4.1 mmol/L (3.4-5.1); Reticulocyte Count, Percent 7.2 % (0.9-2.6); Sodium 135 mmol/L (137-145); Total Protein 7.7 g/dL (6.3-8.2)
[2025-04-20 09:09] LABS: Anisocytosis 2+; Sickle Cells 1+; Target Cells 1+
[2025-04-20 09:10] LABS: Polychromasia 1+
[2025-04-20 09:12] LABS: Microcytosis 1+
== END 2025-04-20 10:21 | disposition home or self-care (01) ==
PROVIDERS: Emergency Provider Emergency Medicine; PCP Nurse Practitioner Family
DX: D57.00 Hb-SS disease with crisis, unspecified (principal); R11.2 Nausea with vomiting, unspecified; I69.398 Other sequelae of cerebral infarction
CPT/HCPCS: 36415; 80053; 85025; 85045; 96361; 96374; 96376; 99284; J1171

== ENCOUNTER 2025-04-20 16:43 | Emergency (ER) | payer SELFPAY ==
[2025-03-09 01:32] VITALS: BMI 20.2
[2025-04-20 16:45] VITALS: BP 113/69; PULSE 78; RESP 12; TEMP 37.2; O2SAT 99; BMI 18.6
--- NOTE | 2025-04-20 19:38 | CM.SWNOTE ---
ED [employer] Follow Up Note: Reviewed EMR, discussed pt with ED Provider who saw pt three times in the past 48 hours. [employer] MA[employer]GER consulted to possibly assist with care planning to assist with chronic pain and sickle cell anemia crisises and multiple visits to Emergency Room. ED [employer] MANAGER confirms in chart that pt sees PCP who has placed referral to Hematology and Behavioral Health in November 2024 but per pt last admission in February 2025, pt has not been able to follow with those referrals. ED B[employer] MANAGER identifies that pt does not have any insurance on file; there is a [employer] insurance card scanned in that seems to be effective since 12/12/24 - ED Admitting states it is not currently active. ED BIO[employer] MANAGER places initial referral to community master planner due to pt frequent ED visits via [employer]. Plan: Medical Work Up to continue, pt still in waiting lobby. ED B[employer] MANAGER to follow with pt, Transitional Care Management and PCP in the next business day. FERNANDO Landa
--- NOTE | 2025-04-20 21:01 | ED_ITS ---
HPI - Recheck/Abnormal Lab/Rx General Chief Complaint: Recheck/Abnormal Lab/Rx Stated Complaint: Back Pain/ Bilateral Leg Pain Time Seen by Provider: 04/20/25 21:01 Source: patient Mode of arrival: Wheelchair History of Present Illness HPI narrative: 24-year-old male known history of sickle cell disease with childhood stroke with left-sided deficits comes into the ED from home for evaluation of pain to his legs, states that this is his typical leg pain, no trauma no falls, states that he was seen here for the same but states that the pain came back. He denies any actual chest pain shortness of breath. Patient was seen here earlier today for the same, at that time patient was instructed to increase his hydroxyurea he states that he is still in the process of possibly finding his database analyst. He said he states it is an issue with his insurance. Related Data Home Medications ?Medication ?Instructions ?Recorded ?Confirmed albuterol sulfate 90 mcg/actuation 2 puff inhalation Q 6H PRN wheezing 11/18/24 03/09/25 aerosol inhaler Previous Rx's ?Medication ?Instructions ?Recorded ondansetron 4 mg disintegrating 4 mg PO Q8H PRN nausea and 10/02/24 tablet vomiting #20 tabs cholecalciferol (vitamin D3) 10 20 mcg (2 x 10 mcg (40 0 unit)) PO 10/25/24 mcg (400 unit) capsule DAILY #180 caps naloxone 4 mg/actuation nasal spray 1 spray intranasal PRN PRN Opioid 11/24/24 Overdose #4 ea duloxetine 60 mg capsule,delayed 60 mg PO DAILY #90 ca ps 12/04/24 release hydroxyurea (sickle cell) 400 mg 400 mg PO DAILY #90 c aps 01/12/25 capsule hydrocodone 5 mg-acetaminophen 325 1 tab PO Q4-6H PRN pain #20 tabs 03/15/25 mg tablet hydrocodone 5 mg-acetaminophen 325 1 tab PO Q6H PRN pa in 3 days #9 04/20/25 mg tablet tabs hydroxyurea (sickle cell) 400 mg 800 mg (2 x 400 mg) P O DAILY #120 04/20/25 capsule caps Allergies Allergy/AdvReac Type Severity Reaction Status Date / Time No Known Drug Allergies Allergy Verified 04/20/25 17:10 Review of Systems Review of Systems Narrative: General: Denies fever, chills, weight loss HEENT: Denies headache, eye drainage, eye irritation, head trauma, sore throat, voice change Cardiovascular: Denies any chest pain, palpitations, tachycardia Respiratory: Denies any shortness of breath, cough, wheeze, stridor GI/: Denies any abdominal pain, nausea, vomiting, diarrhea, bright red blood per rectum, melanotic stools, urinary frequency, urinary retention, dysuria, hematuria MSK: Positive right hip pain Skin: Denies any rashes, lesions, discoloration Neuro: Denies any headache, lightheadedness, dizziness, fainting, weakness Psych: Denies SI/HI Patient History Medical History History of CVA (cerebrovascular accident) Vitamin D deficiency PTSD (post-traumatic stress disorder) Depression Anxiety Seizure Anemia Avascular necrosis of bone Contracture, left elbow Contracture, left hand CVA (cerebral vascular accident) Sickle cell anemia Surgical History History of shoulder surgery 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 Family History Father Cancer Sickle cell trait Lupus Mother Sickle cell trait Brother Sickle cell trait Social History household members: significant other alcohol intake: current tobacco type: vaping alcohol intake frequency: holidays/special occasions only Exam Narrative Exam Narrative: Exam Narrative: General: Cooperative, comfortable, well-developed, not in acute distress HEENT: Normocephalic, atraumatic, PERRLA, normal sclera, eyelids normal, Neck: Active full range of motion, atraumatic Chest: Normal to inspection, negative crepitus, no overlying erythema ecchymosis Respiratory: Normal respiratory effort, not in acute respiratory distress, clear to auscultation bilaterally negative cough, wheeze, tachypnea, rhonchi, rales Cardiology: Regular rate rhythm negative gallop, murmur, rubs GI/: Normal to inspection, soft, nonrigid, no tenderness to palpation, exam deferred MSK: patient with baseline left upper extremity deficits from history of vaso- occlusive crisis in the past, bilateral lower extremities neurovascularly intact able to stand bear weight ambulate unassisted here in the emergency department Skin: No rashes lesions noted Neuro: Alert awake oriented x3, m, cranial nerves intact, able to answer all questions appropriately follows commands appropriately Psych: Cooperative, negative suicidal or homicidal ideations Initial Vital Signs Initial Vital Signs Initial Vital Signs: Vital Signs Temperature 99 F 04/20/25 16:45 Pulse Rate 78 04/20/25 16:45 Respiratory Rate 12 04/20/25 16:45 Blood Pressure 113/69 04/20/25 16:45 Pulse Oximetry 99 04/20/25 16:45 Oxygen Delivery Method Room Air 04/20/25 16:45 Course Orders Ordered: ED Orders 04/20/25 20:26 Consult to [employer] - Bakery Sales Clerk Stat Vital Signs Vital signs: Vital Signs - 8 hr 04/20/25 16:45 Temperature 99 F Pulse Rate 78 Respiratory Rate 12 Blood Pressure 113/69 Pulse Oximetry 99 Oxygen Delivery Method Room Air MDM - Recheck/Abnormal Lab/Rx MDM Narrative Medical decision making narrative: 24-year-old male known history of sickle cell disease with childhood stroke with left-sided deficits comes into the ED from home for evaluation of pain to his legs, states that this is his typical leg pain, no trauma no falls, patient was seen here today for the same had lab work performed and was at baseline, there was a discussion with the hospitalist to increase his hydroxyurea given patient with increasing visits here in the emergency department, patient has been coming into this ER twice a day for the past several days. I discussed with the patient that this is an inappropriate use of the emergency room at this time, I informed him that if he is needing that much pain management he needs to be followed by a database analyst/tamping machine operator road forms, he states that he is still having issues with his insurance. He states that he will increase his hydroxyurea but because the pain increased he came back to the emergency department. I informed him that given the fact that this is his 2nd time within less than 24 hours we will only be giving him a dose of oral analgesics. I informed him that since he is willing to try increasing his hydroxyurea and he states that he does not have any more pain medication at home I am willing to provide him with a very short course of oral pain medication until he can get into his primary care doctor I informed him that he should try to discuss possible port placement, he states that he has had 1 in the past. He verbalized understanding of being discharged home with outpatient follow up. Discharge Plan Departure Patient Disposition: Home Clinical Impression: Sickle cell disease with crisis Prescriptions: New hydrocodone-acetaminophen 5-325 mg tablet 1 tab PO Q6H PRN (Reason: pain) 3 Days Qty: 9 0RF No Action cholecalciferol (vitamin D3) 10 mcg (400 unit) capsule 20 mcg PO DAILY Qty: 180 0RF Rx Instructions: Start two capsules daily after 6 weeks of 1250mcg weekly dosing. duloxetine 60 mg capsule,delayed release(DR/EC) 60 mg PO DAILY Qty: 90 2RF ondansetron 4 mg tablet,disintegrating 4 mg PO Q8H PRN (Reason: nausea and vomiting) Qty: 20 0RF albuterol sulfate 90 mcg/actuation HFA aerosol inhaler 2 puff inhalation Q6H PRN (Reason: wheezing) naloxone 4 mg/actuation spray,non-aerosol 1 spray intranasal PRN PRN (Reason: Opioid Overdose) Qty: 4 0RF hydroxyurea (sickle cell) 400 mg capsule 400 mg PO DAILY Qty: 90 3RF hydrocodone-acetaminophen 5-325 mg tablet 1 tab PO Q4-6H PRN (Reason: pain) Qty: 20 0RF hydroxyurea (sickle cell) 400 mg capsule 800 mg PO DAILY Qty: 120 0RF Referrals: Jen Albarran FNP-BC [Primary Care Provider, Family Practice] Stand Alone Forms: Patient Portal/API
[2025-04-20 21:28] VITALS: O2SAT 95
[2025-04-20 21:29] VITALS: BP 117/62; PULSE 76; O2SAT 100
== END 2025-04-20 21:38 | disposition home or self-care (01) ==
PROVIDERS: Emergency Provider Student in an Organized Health Care Education/Training Program; PCP Nurse Practitioner Family
DX: D57.00 Hb-SS disease with crisis, unspecified (principal)
CPT/HCPCS: 99283

== ENCOUNTER 2025-05-25 10:38 | Emergency (ER) | payer SELFPAY ==
[2025-03-09 01:32] VITALS: BMI 20.2
[2025-05-25 11:06] VITALS: BP 99/63; PULSE 84; RESP 12; TEMP 36.6; O2SAT 98
--- NOTE | 2025-05-25 18:20 | ED_ITS ---
HPI - Back Pain/Injury General Chief Complaint: Back Pain/Injury Stated Complaint: Sickel Cell attack; pain back and both legs Time Seen by Provider: 05/25/25 10:47 Source: patient Related Data Home Medications ?Medication ?Instructions ?Recorded ?Confirmed albuterol sulfate 90 mcg/actuation 2 puff inhalation Q 6H PRN wheezing 11/18/24 05/01/25 aerosol inhaler Previous Rx's ?Medication ?Instructions ?Recorded ondansetron 4 mg disintegrating 4 mg PO Q8H PRN nausea and 10/02/24 tablet vomiting #20 tabs cholecalciferol (vitamin D3) 10 20 mcg (2 x 10 mcg (40 0 unit)) PO 10/25/24 mcg (400 unit) capsule DAILY #180 caps naloxone 4 mg/actuation nasal spray 1 spray intranasal PRN PRN Opioid 11/24/24 Overdose #4 ea hydroxyurea (sickle cell) 400 mg 400 mg PO DAILY #90 c aps 01/12/25 capsule hydrocodone 5 mg-acetaminophen 325 1 tab PO Q4-6H PRN pain #20 tabs 03/15/25 mg tablet hydroxyurea (sickle cell) 400 mg 800 mg (2 x 400 mg) P O DAILY #120 04/20/25 capsule caps duloxetine 60 mg capsule,delayed 60 mg PO DAILY #90 ca ps 05/01/25 release Allergies Allergy/AdvReac Type Severity Reaction Status Date / Time No Known Drug Allergies Allergy Verified 05/01/25 10:29 Patient History Medical History History of CVA (cerebrovascular accident) Vitamin D deficiency PTSD (post-traumatic stress disorder) Depression Anxiety Seizure Anemia Avascular necrosis of bone Contracture, left elbow Contracture, left hand CVA (cerebral vascular accident) Sickle cell anemia Surgical History History of shoulder surgery 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 Family History Father Cancer Sickle cell trait Lupus Mother Sickle cell trait Brother Sickle cell trait Social History household members: significant other alcohol intake: current tobacco type: vaping alcohol intake frequency: holidays/special occasions only Exam Initial Vital Signs Initial Vital Signs: Vital Signs Temperature 97.8 F 05/25/25 11:06 Pulse Rate 84 05/25/25 11:06 Respiratory Rate 12 05/25/25 11:06 Blood Pressure 99/63 05/25/25 11:06 Pulse Oximetry 98 05/25/25 11:06 Oxygen Delivery Method Room Air 05/25/25 11:06 Course Vital Signs Vital signs: Vital Signs - 8 hr 05/25/25 11:06 Temperature 97.8 F Pulse Rate 84 Respiratory Rate 12 Blood Pressure 99/63 Pulse Oximetry 98 Oxygen Delivery Method Room Air Discharge Plan Departure Patient Disposition: Left Without Being Seen Clinical Impression: Patient left without being seen Prescriptions: No Action cholecalciferol (vitamin D3) 10 mcg (400 unit) capsule 20 mcg PO DAILY Qty: 180 0RF Rx Instructions: Start two capsules daily after 6 weeks of 1250mcg weekly dosing. duloxetine 60 mg capsule,delayed release(DR/EC) 60 mg PO DAILY Qty: 90 2RF ondansetron 4 mg tablet,disintegrating 4 mg PO Q8H PRN (Reason: nausea and vomiting) Qty: 20 0RF albuterol sulfate 90 mcg/actuation HFA aerosol inhaler 2 puff inhalation Q6H PRN (Reason: wheezing) naloxone 4 mg/actuation spray,non-aerosol 1 spray intranasal PRN PRN (Reason: Opioid Overdose) Qty: 4 0RF hydroxyurea (sickle cell) 400 mg capsule 400 mg PO DAILY Qty: 90 3RF hydrocodone-acetaminophen 5-325 mg tablet 1 tab PO Q4-6H PRN (Reason: pain) Qty: 20 0RF hydroxyurea (sickle cell) 400 mg capsule 800 mg PO DAILY Qty: 120 0RF
== END 2025-05-25 11:39 | disposition left against medical advice (07) ==
PROVIDERS: Emergency Provider Family Medicine; PCP Nurse Practitioner Family
DX: Z53.21 Procedure and treatment not carried out due to patient leaving prior to being seen by health care provider (principal)
CPT/HCPCS: 99281

== ENCOUNTER 2025-05-30 06:42 | Emergency (ER) | payer MEDICAID, SELFPAY ==
[2025-03-09 01:32] VITALS: BMI 20.2
[2025-05-30 06:49] VITALS: BP 110/60; PULSE 93; RESP 18; TEMP 36.2; O2SAT 96; BMI 18.6
[2025-05-30] MEDS: SODIUM CHLORIDE 0.9% 1,000 ML 1000 ML IV (07:01)
[2025-05-30 07:12] LABS: Add Manual Diff / Slide Review NO; Hematocrit 27.5 % (41-53); Hemoglobin 9.5 g/dL (13.5-17.5); Lymphocytes Absolute Auto 4700 /uL (1100-4500); Mean Corpuscular HGB Conc 34.4 % (30-36); Mean Corpuscular Hemoglobin 24.9 PG (26-34); Mean Corpuscular Volume 72.3 fL (80-100); Platelet Count 238 X10^3/uL (150-400)
[2025-05-30 07:21] LABS: Alanine Aminotransferase 24 IU/L (<50); Albumin 4.4 g/dL (3.5-5.0); Albumin Globulin Ratio 1.2 (1.0-2.8); Alkaline Phosphatase 72 U/L (38-126); Blood Urea Nitrogen 6 mg/dL (9-20); Calcium 8.4 mg/dL (8.4-10.2); Carbon Dioxide 22 mmol/L (22-32); Chloride 106 mmol/L (98-107); Estimated Glomerular Filt Rate > 60 mL/min (>60); Globulin 3.6 g/dL (1.7-4.1); Glucose 97 mg/dL (70-99); HEMOLYSIS 21 (0-50); Potassium 3.8 mmol/L (3.4-5.1); Sodium 139 mmol/L (137-145); Total Protein 8.0 g/dL (6.3-8.2)
[2025-05-30 07:26] LABS: Reticulocyte Count, Percent 6.9 % (0.9-2.6)
[2025-05-30 07:32] VITALS: PULSE 73; O2SAT 99
--- NOTE | 2025-05-30 07:49 | ED_ITS ---
HPI - Back Pain/Injury General Chief Complaint: Back Pain/Injury Stated Complaint: Poss Sickle Cell Crisis Time Seen by Provider: 05/30/25 06:54 Source: patient History of Present Illness HPI Narrative: Patient is a 24-year-old male history of sickle cell frequent ED visits presenting today with back pain. He reports it has been ongoing for about a week. He has been taking his home oxycodone without any kind of relief. It is all across his lower lumbar back. No numbness tingling or weakness no loss of bowel or urine. He reports he can sleep last night due to the pain. No fevers or chills. He actually finally did get into Hematology look like he saw his primary care physician in April as well. Related Data Home Medications ?Medication ?Instructions ?Recorded ?Confirmed albuterol sulfate 90 mcg/actuation 2 puff inhalation Q 6H PRN wheezing 11/18/24 05/01/25 aerosol inhaler Previous Rx's ?Medication ?Instructions ?Recorded ondansetron 4 mg disintegrating 4 mg PO Q8H PRN nausea and 10/02/24 tablet vomiting #20 tabs cholecalciferol (vitamin D3) 10 20 mcg (2 x 10 mcg (40 0 unit)) PO 10/25/24 mcg (400 unit) capsule DAILY #180 caps naloxone 4 mg/actuation nasal spray 1 spray intranasal PRN PRN Opioid 11/24/24 Overdose #4 ea hydroxyurea (sickle cell) 400 mg 400 mg PO DAILY #90 c aps 01/12/25 capsule hydrocodone 5 mg-acetaminophen 325 1 tab PO Q4-6H PRN pain #20 tabs 03/15/25 mg tablet hydroxyurea (sickle cell) 400 mg 800 mg (2 x 400 mg) P O DAILY #120 04/20/25 capsule caps duloxetine 60 mg capsule,delayed 60 mg PO DAILY #90 ca ps 05/01/25 release lidocaine 5 % topical patch 1 patch topical DAILY PRN pain 05/30/25 (scale score 1-3) #30 ea methocarbamol 750 mg tablet 750 mg PO Q8H PRN muscle s pasm #20 05/30/25 tabs Allergies Allergy/AdvReac Type Severity Reaction Status Date / Time No Known Drug Allergies Allergy Verified 05/30/25 06:49 Patient History Medical History History of CVA (cerebrovascular accident) Vitamin D deficiency PTSD (post-traumatic stress disorder) Depression Anxiety Seizure Anemia Avascular necrosis of bone Contracture, left elbow Contracture, left hand CVA (cerebral vascular accident) Sickle cell anemia Surgical History History of shoulder surgery 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 Family History Father Cancer Sickle cell trait Lupus Mother Sickle cell trait Brother Sickle cell trait Social History household members: significant other alcohol intake: current tobacco type: vaping alcohol intake frequency: holidays/special occasions only Exam Initial Vital Signs Initial Vital Signs: Vital Signs Temperature 97.1 F L 05/30/25 06:49 Pulse Rate 93 H 05/30/25 06:49 Respiratory Rate 18 05/30/25 06:49 Blood Pressure 110/60 05/30/25 06:49 Pulse Oximetry 96 05/30/25 06:49 Oxygen Delivery Method Room Air 05/30/25 06:49 GENERAL: Alert well-appearing 24 male HEENT: Head atraumatic,EOMI, pupils reactive, face symmetric, moist mucous membranes CARDIOVASCULAR: Regular rate and rhythm without murmurs, rubs or gallops. RESPIRATORY: Breath sounds equal bilaterally, no wheezes rales or rhonchi. ABDOMEN: Soft, nontender. Normoactive bowel sounds all 4 quadrants. No guarding or rebound. BACK: No vertebral tenderness tender across bilateral lower lumbar EXTREMITIES: Normal range of motion, no clubbing or edema. Neurovascularly intact NEUROLOGICAL: Alert and oriented x4.Normal gait and speech. Cranial nerves II through XII grossly intact. Left arm contraction at baseline sensation in lower legs equal bilaterally SKIN: Warm, dry, no laceration, no petechiae, no rashes or lesions. Course Orders Ordered: ED Orders 05/30/25 06:50 CBC Auto Diff [Complete Blood Count AUTO DIFF] Stat CMP [Comprehensive Metabolic Panel] Stat RET [Reticulocyte Count, Percent] Stat Discontinued Medications Sodium Chloride (Normal Saline 0.9%) 1,000 mls @ 1,000 mls/hr IV BOLUS ONE Stop: 05/30/25 07:53 Last Admin: 05/30/25 07:01 Dose: 1,000 mls/hr Documented By: TUNG Ketorolac Tromethamine (Ketorolac 30 Mg/Ml Vial) 15 mg IV NOW ONE Stop: 05/30/25 07:56 Last Admin: 05/30/25 08:00 Dose: 15 mg Documented By: SBF Methocarbamol (Methocarbamol 500 Mg Tablet) 500 mg PO NOW ONE Stop: 05/30/25 07:56 Last Admin: 05/30/25 08:00 Dose: 500 mg Documented By: SBF Vital Signs Vital signs: Vital Signs - 8 hr 05/30/25 06:49 05/30/25 07:32 05/30/25 08:33 Temperature 97.1 F L Pulse Rate 93 H 73 81 Respiratory Rate 18 18 Blood Pressure 110/60 112/69 Pulse Oximetry 96 99 100 Oxygen Delivery Method Room Air MDM - Back Pain/Injury Lab Data 05/30/25 06:50 05/30/25 06:50 Labs: Lab Results 05/30/25 Range/Units 06:50 WBC 11.2 H (4.5-11.0) X10^3/uL RBC 3.81 L (4.5-5.9) X10^6/uL Hgb 9.5 L (13.5-17.5) g/dL Hct 27.5 L (41-53) % MCV 72.3 L (80-100) fL MCH 24.9 L (26-34) PG MCHC 34.4 (30-36) % RDW 18.7 H (11.6-14.8) % Plt Count 238 (150-400) X10^3/uL Neut % (Auto) 45.1 L (50-75) % Lymph % (Auto) 42.5 H (25-40) % [place] % (Auto) 10.4 (3-14) % Eos % (Auto) 1.2 L (2-4) % Baso % (Auto) 0.8 (0-2) % Neut # (Auto) 5000 (3590-5152) /uL Lymph # (Auto) 4700 H (2888-8568) /uL [place] # (Auto) 1200 H (0-900) /uL Eos # (Auto) 100 (0-450) /uL Baso # (Auto) 100 (0-100) /uL Percent Retic 6.9 H (0.9-2.6) % Sodium 139 (137-145) mmol/L Potassium 3.8 (3.4-5.1) mmol/L Chloride 106 (98-107) mmol/L Carbon Dioxide 22 (22-32) mmol/L BUN 6 L (9-20) mg/dL Creatinine 0.58 L (0.66-1.25) mg/dL Estimated GFR > 60 (>60) mL/min BUN/Creatinine Ratio 10.3 (6-22) Glucose 97 (70-99) mg/dL Calcium 8.4 (8.4-10.2) mg/dL Total Bilirubin 2.7 H (0.2-1.3) mg/dL AST 55 (17-59) IU/L ALT 24 (<50) IU/L Alkaline Phosphatase 72 (38-126) U/L Total Protein 8.0 (6.3-8.2) g/dL Albumin 4.4 (3.5-5.0) g/dL Globulin 3.6 (1.7-4.1) g/dL Albumin/Globulin Ratio 1.2 (1.0-2.8) MDM Narrative Medical decision making narrative: Patient 24-year-old male history of sickle cell disease frequent ED visits presenting today with back pain. It sounds like it has been ongoing for about a week he has got oxycodone at home which has not been helping. He denies any fall or injury. No signs or symptoms of cauda equina. Blood work has been reviewed CBC shows stable anemia hemoglobin 9.5 hematocrit 27.5, reticulocyte count is 6.9 this is about baseline CMP no electrolyte abnormalities Patient has oxycodone at home ice given Toradol and methocarbamol here in the ED. at this time no need for imaging Do not believe this to be a sickle cell crisis or sickle cell related. Patient requesting to be discharged he needs to go to work. Discharge Plan Departure Patient Disposition: Home Clinical Impression: Back pain Instructions: DI for Low Back Pain Activity Restrictions/Additional Instructions: *You have been diagnosed with back pain *What to do: At this time increase activity as tolerated heating pad stretching no strenuous activity *Continue to take medications as directed Continue oxycodone as prescribed Motrin 600 mg every 6 hours for [id number] pain Methocarbamol 500 mg to 750 mg every 8 hours for muscle spasm Lidocaine patch may add for 12 hours at a time then remove *Follow up with your primary care provider in 2-3 days or call [phone] *Return to ER if you should have increasing pain numbness tingling weakness [or] any new, worsening or concerning symptoms Prescriptions: New methocarbamol 750 mg tablet 750 mg PO Q8H PRN (Reason: muscle spasm) Qty: 20 0RF lidocaine 5 % adhesive patch,medicated 1 patch topical DAILY PRN (Reason: pain (scale score 1-3)) Qty: 30 0RF Rx Instructions: leave on most painful area for up to 12 hrs No Action cholecalciferol (vitamin D3) 10 mcg (400 unit) capsule 20 mcg PO DAILY Qty: 180 0RF Rx Instructions: Start two capsules daily after 6 weeks of 1250mcg weekly dosing. duloxetine 60 mg capsule,delayed release(DR/EC) 60 mg PO DAILY Qty: 90 2RF ondansetron 4 mg tablet,disintegrating 4 mg PO Q8H PRN (Reason: nausea and vomiting) Qty: 20 0RF albuterol sulfate 90 mcg/actuation HFA aerosol inhaler 2 puff inhalation Q6H PRN (Reason: wheezing) naloxone 4 mg/actuation spray,non-aerosol 1 spray intranasal PRN PRN (Reason: Opioid Overdose) Qty: 4 0RF hydroxyurea (sickle cell) 400 mg capsule 400 mg PO DAILY Qty: 90 3RF hydrocodone-acetaminophen 5-325 mg tablet 1 tab PO Q4-6H PRN (Reason: pain) Qty: 20 0RF hydroxyurea (sickle cell) 400 mg capsule 800 mg PO DAILY Qty: 120 0RF Referrals: Jen Albarran, SWEEP PRESS OPERATOR-BC [Primary Care Provider, Family Practice] Stand Alone Forms: Patient Portal/API
[2025-05-30] MEDS: KETOROLAC 30 MG/ML VIAL 15 MG IV (08:00)
--- NOTE | 2025-05-30 08:07 | PC.NURSE ---
patient reporting pain no injury, rt sicle sell
[2025-05-30 08:33] VITALS: BP 112/69; PULSE 81; RESP 18; O2SAT 100
== END 2025-05-30 08:34 | disposition home or self-care (01) ==
PROVIDERS: Emergency Medicine; Emergency Provider Emergency Medicine; PCP Nurse Practitioner Family
DX: M54.50 Low back pain, unspecified (principal); D57.00 Hb-SS disease with crisis, unspecified
CPT/HCPCS: 36415; 80053; 85025; 85045; 99284; J1885; J7030

== ENCOUNTER 2025-05-30 09:16 | Emergency (ER) | payer MEDICAID, SELFPAY ==
[2025-03-09 01:32] VITALS: BMI 20.2
[2025-05-30 09:18] VITALS: BP 158/79; PULSE 94; RESP 18; O2SAT 100
--- NOTE | 2025-05-30 09:41 | ED_ITS ---
HPI - Extremity Problem General Chief complaint: Extremity Problem,Nontraumatic Stated complaint: Sickle cell crisis Time Seen by Provider: 05/30/25 09:25 Source: patient Mode of arrival: Family Vehicle History of Present Illness HPI Narrative: Patient 24-year-old male with known sickle cell disease discharged 1 hour prior for back pain. He had blood work at that time which showed a reticulocyte count of 6.9 which is about normal for him. He is on hydroxyurea to control his sickle cell anemia is stable. Back pain thought to be due to musculoskeletal back spasm pain. No fall or injury. He was given Toradol methocarbamol and discharged. He returns saying he is having severe chest pain back pain. No tongue swelling no lip swelling no difficulty breathing no rash. But is rocking back and forth stating he is in severe back pain. Related Data Home Medications ?Medication ?Instructions ?Recorded ?Confirmed albuterol sulfate 90 mcg/actuation 2 puff inhalation Q 6H PRN wheezing 11/18/24 05/01/25 aerosol inhaler Previous Rx's ?Medication ?Instructions ?Recorded ondansetron 4 mg disintegrating 4 mg PO Q8H PRN nausea and 10/02/24 tablet vomiting #20 tabs cholecalciferol (vitamin D3) 10 20 mcg (2 x 10 mcg (40 0 unit)) PO 10/25/24 mcg (400 unit) capsule DAILY #180 caps naloxone 4 mg/actuation nasal spray 1 spray intranasal PRN PRN Opioid 11/24/24 Overdose #4 ea hydroxyurea (sickle cell) 400 mg 400 mg PO DAILY #90 c aps 01/12/25 capsule hydrocodone 5 mg-acetaminophen 325 1 tab PO Q4-6H PRN pain #20 tabs 03/15/25 mg tablet hydroxyurea (sickle cell) 400 mg 800 mg (2 x 400 mg) P O DAILY #120 04/20/25 capsule caps duloxetine 60 mg capsule,delayed 60 mg PO DAILY #90 ca ps 05/01/25 release lidocaine 5 % topical patch 1 patch topical DAILY PRN pain 05/30/25 (scale score 1-3) #30 ea methocarbamol 750 mg tablet 750 mg PO Q8H PRN muscle s pasm #20 05/30/25 tabs Allergies Allergy/AdvReac Type Severity Reaction Status Date / Time No Known Drug Allergies Allergy Verified 05/30/25 09:19 Patient History Medical History History of CVA (cerebrovascular accident) Vitamin D deficiency PTSD (post-traumatic stress disorder) Depression Anxiety Seizure Anemia Avascular necrosis of bone Contracture, left elbow Contracture, left hand CVA (cerebral vascular accident) Sickle cell anemia Surgical History History of shoulder surgery 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 Family History Father Cancer Sickle cell trait Lupus Mother Sickle cell trait Brother Sickle cell trait Social History household members: significant other alcohol intake: current tobacco type: vaping alcohol intake frequency: holidays/special occasions only Exam Initial Vital Signs Initial Vital Signs: Vital Signs Pulse Rate 94 H 05/30/25 09:18 Respiratory Rate 18 05/30/25 09:18 Blood Pressure 158/79 H 05/30/25 09:18 Pulse Oximetry 100 05/30/25 09:18 Oxygen Delivery Method Room Air 05/30/25 09:18 GENERAL: Alert 24-year-old male appears in severe pain HEENT: Head atraumatic,EOMI, pupils reactive, face symmetric, moist mucous membranes CARDIOVASCULAR: Regular rate and rhythm without murmurs, rubs or gallops. RESPIRATORY: Breath sounds equal bilaterally, no wheezes rales or rhonchi. ABDOMEN: Soft, nontender. Normoactive bowel sounds all 4 quadrants. No guarding or rebound. BACK: Lower lumbar pain EXTREMITIES: Normal range of motion, no clubbing or edema. Neurovascularly intact NEUROLOGICAL: Alert and oriented x4.Normal gait and speech. Left arm weakness based SKIN: Warm, dry, no laceration, no petechiae, no rashes or lesions. Course Orders Ordered: Discontinued Medications Hydromorphone HCl (Hydromorphone 1 Mg/Ml Syringe) 1 mg IV NOW ONE Stop: 05/30/25 09:26 Last Admin: 05/30/25 09:31 Dose: 1 mg Documented By: [facility] [place] Hydromorphone HCl (Hydromorphone 1 Mg/Ml Syringe) 1 mg IV NOW ONE Stop: 05/30/25 10:06 Last Admin: 05/30/25 10:10 Dose: 1 mg Documented By: AKILAH Hydromorphone HCl (Hydromorphone 1 Mg/Ml Syringe) 1 mg IV NOW ONE Stop: 05/30/25 11:35 Last Admin: 05/30/25 11:56 Dose: 1 mg Documented By: AKILAH Vital Signs Vital signs: Vital Signs - 8 hr 05/30/25 09:18 Pulse Rate 94 H Respiratory Rate 18 Blood Pressure 158/79 H Pulse Oximetry 100 Oxygen Delivery Method Room Air MDM - Extremity (Nontraumatic) MDM Narrative Medical decision making narrative: Patient 24-year-old sickle cell patient with back pain. Seen and discharged just 1 hour before blood work at that time at his baseline. I do not think any new blood work needs to be drawn. He was immediately given some Dilaudid and incidentally feeling better. During his last visit he did not get any narcotics. He was not in this much pain when he left earlier he is overall feeling much better almost immediately as soon as he got Dilaudid Discharge Plan Departure Patient Disposition: Home Clinical Impression: Back pain Instructions: Low Back Pain Activity Restrictions/Additional Instructions: *You have been diagnosed with back *What to do: Continue home pain medication continue hydroxyurea *Continue to take medications as directed *Follow up with your primary care provider in 2-3 days or call [phone] *Return to ER if you should have increasing pain weakness or any new, worsening or concerning symptoms Prescriptions: No Action cholecalciferol (vitamin D3) 10 mcg (400 unit) capsule 20 mcg PO DAILY Qty: 180 0RF Rx Instructions: Start two capsules daily after 6 weeks of 1250mcg weekly dosing. duloxetine 60 mg capsule,delayed release(DR/EC) 60 mg PO DAILY Qty: 90 2RF ondansetron 4 mg tablet,disintegrating 4 mg PO Q8H PRN (Reason: nausea and vomiting) Qty: 20 0RF albuterol sulfate 90 mcg/actuation HFA aerosol inhaler 2 puff inhalation Q6H PRN (Reason: wheezing) naloxone 4 mg/actuation spray,non-aerosol 1 spray intranasal PRN PRN (Reason: Opioid Overdose) Qty: 4 0RF hydroxyurea (sickle cell) 400 mg capsule 400 mg PO DAILY Qty: 90 3RF hydrocodone-acetaminophen 5-325 mg tablet 1 tab PO Q4-6H PRN (Reason: pain) Qty: 20 0RF hydroxyurea (sickle cell) 400 mg capsule 800 mg PO DAILY Qty: 120 0RF methocarbamol 750 mg tablet 750 mg PO Q8H PRN (Reason: muscle spasm) Qty: 20 0RF lidocaine 5 % adhesive patch,medicated 1 patch topical DAILY PRN (Reason: pain (scale score 1-3)) Qty: 30 0RF Rx Instructions: leave on most painful area for up to 12 hrs Referrals: Jen Albarran FNP-BC [Primary Care Provider, Family Practice] Stand Alone Forms: Patient Portal/API
== END 2025-05-30 11:59 | disposition home or self-care (01) ==
PROVIDERS: Emergency Provider Emergency Medicine; PCP Nurse Practitioner Family
DX: M54.50 Low back pain, unspecified (principal); D57.00 Hb-SS disease with crisis, unspecified
CPT/HCPCS: 36415; 80053; 85025; 85045; 96374; 96375; 96376; 99283; 99284; J1171; J1885; J7030

== ENCOUNTER 2025-06-07 06:04 | Inpatient (IN) | payer SELFPAY ==
[2025-03-09 01:32] VITALS: BMI 20.2
[2025-06-07] VITALS (25 sets, daily range): BP systolic 101–127; BP diastolic 55–76; PULSE 60–111; RESP 16–31; TEMP 35.8–36.9; O2SAT 95–100; BMI 18.6
--- NOTE | 2025-06-07 | PATH_ITS ---
[facility] Accession Number: [id number] No. of containers..01 Tissue . 01 Material submitted: . appendix - APPENDIX . 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 No active inflammation identified. No evidence of malignancy. MRV 06/23/2025 1723 Local . 01 Comment: As part of routine chemistry quality control analyst, Dr. Hooper has reviewed this case and agrees with the diagnosis above. . 01 Electronically signed: . Jaspal Cordoba MD, PhD, Pathologist NPI- [id number] . 01 Gross description: . Received in formalin, labeled with two patient identifiers and appendix, is a 5.2 cm long by 0.8-1.2 cm in diameter, intact, vermiform appendix that is sutured at the proximal margin. The serosa is diaz-pink, congested with adhesions. The proximal margin is inked black. Sectioning shows a 0.1 cm in diameter lumen. The mucosa is grossly unremarkable. The appendiceal wall is thickened, up to 0.6 cm. No perforation is identified. No mass is identified. Automobile Damage Appraiser cross sections, including the proximal margin and entire bisected appendiceal tip, are submitted in cassette A1. The remaining specimen is entirely submitted in cassettes A2-A5. (MA:[id number]) (DL:[id number]) /FRR 06/23/2025 1750 Local . 01 Pathologist provided ICD-10: R11.2, R19.7, R10.9 . 01 CPT . 581450 Specimen Comment: A courtesy copy of this report has been sent to [phone] Performed at: [address] [id number] MD Bean Hooper MD Phone: [phone]
[2025-06-07 06:45] LABS: Hematocrit 29.9 % (41-53); Hemoglobin 9.9 g/dL (13.5-17.5); Mean Corpuscular HGB Conc 33.2 % (30-36); Mean Corpuscular Hemoglobin 25.4 PG (26-34); Mean Corpuscular Volume 76.4 fL (80-100); Platelet Count 355 X10^3/uL (150-400)
[2025-06-07 06:51] LABS: Alanine Aminotransferase 54 IU/L (<50); Albumin 5.7 g/dL (3.5-5.0); Alkaline Phosphatase 156 U/L (38-126); Blood Urea Nitrogen 17 mg/dL (9-20); Calcium 9.7 mg/dL (8.4-10.2); Carbon Dioxide 13 mmol/L (22-32); Chloride 102 mmol/L (98-107); Estimated Glomerular Filt Rate 27 mL/min (>60); Glucose 130 mg/dL (70-99); HEMOLYSIS < 15 (0-50); Lipase 127 U/L (23-300); Potassium 3.7 mmol/L (3.4-5.1); Reticulocyte Count, Percent 8.0 % (0.9-2.6); Sodium 143 mmol/L (137-145)
[2025-06-07 06:57] LABS: Add Manual Diff / Slide Review YES
[2025-06-07 07:13] LABS: Albumin Globulin Ratio 0.9 (1.0-2.8); Globulin 6.2 g/dL (1.7-4.1); Total Protein 11.9 g/dL (6.3-8.2)
--- NOTE | 2025-06-07 07:33 | PC.NURSE ---
received report from NOC shift. Pt resting in bed appears comfortable at this time. Awaiting new orders.
[2025-06-07] MEDS: SODIUM CHLORIDE 0.9% 1,000 ML 1000 ML IV ×2 (07:43→09:15)
[2025-06-07 07:46] LABS: Lymphocytes Percent Manual 10.0 % (25-45); Monocytes Percent Manual 10.0 % (2-11); Neutrophils Absolute Manual 12320 /uL (3000-5900); Segmented Neutrophils Percent 80.0 % (38-70); Total Cells Counted 100
[2025-06-07 07:48] LABS: Macrocytosis 1+; Microcytosis 1+; Schistocytes 1+; Target Cells 1+
--- NOTE | 2025-06-07 07:53 | ED.NAVMDI ---
HPI - Nausea/Vomiting/Diarrhea General Chief complaint: Nausea/Vomiting/Diarrhea Stated complaint: N/V/D Time Seen by Provider: 06/07/25 06:12 Source: patient and EMS Mode of arrival: EMS History of Present Illness HPI Narrative: Patient is a 24-year-old male history of sickle cell disease, CVA with left-sided hemiparesis presenting today with ongoing abdominal pain nausea vomiting diarrhea. He says that for the last 2 days he has been unable to keep anything in throwing up he is having some green liquid mucous from his rectum. It is nonbloody. Pretty severe abdominal pain. No dizziness or lightheadedness. Related Data Home Medications ?Medication ?Instructions ?Recorded ?Confirmed albuterol sulfate 90 mcg/actuation 2 puff inhalation Q6H PRN wheezing 11/18/24 06/06/25 aerosol inhaler oxycodone 5 mg tablet 5 mg PO Q6H PRN 06/06/25 06/06/25 Previous Rx's ?Medication ?Instructions ?Recorded cholecalciferol (vitamin D3) 10 20 mcg (2 x 10 mcg (400 unit)) PO 10/25/24 mcg (400 unit) capsule DAILY #180 caps hydroxyurea (sickle cell) 400 mg 400 mg PO DAILY #90 caps 01/12/25 capsule duloxetine 60 mg capsule,delayed 60 mg PO DAILY #90 caps 05/01/25 release lidocaine 5 % topical patch 1 patch topical DAILY PRN pain 05/30/25 (scale score 1-3) #30 ea methocarbamol 750 mg tablet 750 mg PO Q8H PRN muscle spasm #20 05/30/25 tabs Allergies Allergy/AdvReac Type Severity Reaction Status Date / Time No Known Drug Allergies Allergy Verified 06/07/25 06:04 Patient History Medical History History of CVA (cerebrovascular accident) Vitamin D deficiency PTSD (post-traumatic stress disorder) Depression Anxiety Seizure Anemia Avascular necrosis of bone Contracture, left elbow Contracture, left hand CVA (cerebral vascular accident) Sickle cell anemia Surgical History History of shoulder surgery 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 Family History Father Cancer Sickle cell trait Lupus Mother Sickle cell trait Brother Sickle cell trait Social History household members: significant other alcohol intake: current tobacco type: vaping alcohol intake frequency: holidays/special occasions only Exam Initial Vital Signs Initial Vital Signs: Vital Signs Temperature 97.5 F L 06/07/25 06:03 Oxygen Delivery Method Room Air 06/07/25 06:03 GENERAL: Alert 24-year-old male appears to not feel well and in [no acute] distress. HEENT: Head atraumatic,EOMI, pupils reactive, face symmetric, [moist] mucous membranes CARDIOVASCULAR: Regular rate and rhythm without murmurs, rubs or gallops. RESPIRATORY: Breath sounds equal bilaterally, no wheezes rales or rhonchi. ABDOMEN: Soft, diffusely tender no significant guarding or rebound tender in epigastric and lower abdominal patient is EXTREMITIES: Normal range of motion, no clubbing or edema. Neurovascularly intact NEUROLOGICAL: Alert and oriented x4.Normal gait and speech. Cranial nerves II through XII grossly intact. Chronic left hemiparesis at baseline SKIN: Warm, dry, no laceration, no petechiae, no rashes or lesions. Course Orders Ordered: ED Orders 06/07/25 06:13 GI Panel (Film Array) Stat 06/07/25 06:30 Complete Blood Count AUTO DIFF Stat Comprehensive Metabolic Panel Stat Lipase Stat RETIC [Reticulocyte Count, Percent] Stat 06/07/25 07:53 CT abdomen pelvis wo con Stat 06/07/25 08:20 BMP [Basic Metabolic Panel] Stat Lactate (Lactic Acid) Stat 06/07/25 08:27 Blood Culture Stat Fentanyl (Fentanyl 100 Mcg/2 Ml Inj) 0 mcg IV Q5M PRN PRN Reason: Pain, Moderate (4-6) Hydromorphone HCl (Hydromorphone 1 Mg/Ml Syringe) 1 mg IV Q2HR PRN PRN Reason: Pain, Moderate (4-6) Last Admin: 06/07/25 11:19 Dose: 1 mg Documented By: Admin: 06/07/25 07:57 Dose: 1 mg Documented By: RB Hydromorphone HCl (Hydromorphone 1 Mg/Ml Syringe) 0 mg IV Q5MIN PRN PRN Reason: Pain, Moderate (4-6) Hydroxyzine HCl (Hydroxyzine 50 Mg/Ml Inj) 25 mg IM NOW PRN PRN Reason: Pain, Mild (1-3) Sodium Chloride (Normal Saline 0.9%) 1,000 mls @ 84 mls/hr IV CONT JONATHAN Last Admin: 06/07/25 11:59 Dose: 84 mls/hr Documented By: CB Sodium Chloride (Normal Saline 0.9%) 1,000 mls @ 250 mls/hr IV CONT JONATHAN Ondansetron HCl (Ondansetron 4 Mg/2 Ml Inj) 4 mg IV NOW PRN PRN Reason: Nausea And Vomiting Oxycodone HCl (Oxycodone Ir 5 Mg Tablet) 5 mg PO PACUNOW PRN PRN Reason: Mild or moderate pain Discontinued Medications Benzocaine/Butamben/Tetracaine HCl (Tetracaine/Benzocaine/Butamben (Cetacaine) Bottle) 1 spray TOP NOW ONE Stop: 06/07/25 10:58 Last Admin: 06/07/25 11:00 Dose: 1 spray Documented By: CTS Hydromorphone HCl (Hydromorphone 1 Mg/Ml Syringe) 2 mg IV NOW ONE Stop: 06/07/25 07:56 Last Admin: 06/07/25 08:46 Dose: 2 mg Documented By: CTS Sodium Chloride (Normal Saline 0.9%) 1,000 mls @ 1,000 mls/hr IV BOLUS ONE Stop: 06/07/25 08:03 Last Infusion: 06/07/25 08:45 Dose: Infused Documented By: Admin: 06/07/25 07:43 Dose: 1,000 mls/hr Documented By: CTS Sodium Chloride (Normal Saline 0.9%) 1,000 mls @ 1,000 mls/hr IV BOLUS ONE Stop: 06/07/25 09:50 Last Infusion: 06/07/25 10:52 Dose: Infused Documented By: Admin: 06/07/25 09:15 Dose: 1,000 mls/hr Documented By: CTS Ondansetron HCl (Ondansetron 4 Mg/2 Ml Inj) 4 mg IV NOW ONE Stop: 06/07/25 07:44 Last Admin: 06/07/25 07:54 Dose: 4 mg Documented By: RB Pantoprazole Sodium (Pantoprazole 40 Mg Vial) 40 mg IV NOW ONE Stop: 06/07/25 08:00 Last Admin: 06/07/25 08:46 Dose: 40 mg Documented By: CTS Vital Signs Vital signs: Vital Signs - 8 hr 06/07/25 06:03 06/07/25 06:08 06/07/25 06:30 Temperature 97.5 F L Pulse Rate 111 H 97 H Respiratory Rate 20 Blood Pressure 116/76 Pulse Oximetry 100 100 Oxygen Delivery Method Room Air Room Air Room Air 06/07/25 06:30 06/07/25 07:00 06/07/25 07:00 Temperature Pulse Rate 108 H Respiratory Rate Blood Pressure 110/69 101/68 Pulse Oximetry 97 Oxygen Delivery Method 06/07/25 07:30 06/07/25 07:30 06/07/25 08:15 Temperature Pulse Rate 97 H 91 H Respiratory Rate 31 H Blood Pressure 110/74 Pulse Oximetry 97 Oxygen Delivery Method 06/07/25 08:30 06/07/25 09:00 06/07/25 09:30 Temperature Pulse Rate 85 85 96 H Respiratory Rate 24 Blood Pressure Pulse Oximetry 97 99 Oxygen Delivery Method 06/07/25 09:56 06/07/25 09:56 06/07/25 10:00 Temperature Pulse Rate 87 Respiratory Rate Blood Pressure 111/58 L 121/64 Pulse Oximetry 97 Oxygen Delivery Method 06/07/25 10:00 06/07/25 10:30 06/07/25 10:30 Temperature Pulse Rate 94 H 87 Respiratory Rate Blood Pressure 115/55 L Pulse Oximetry 98 96 Oxygen Delivery Method 06/07/25 11:00 06/07/25 11:00 Temperature Pulse Rate 101 H Respiratory Rate 26 H Blood Pressure 115/62 Pulse Oximetry 97 Oxygen Delivery Method MDM - Nausea/Vomiting/Diarrhea Lab Data 06/07/25 06:30 06/07/25 08:20 Labs: Lab Results 06/07/25 06/07/25 06/07/25 Range/Units 06:30 08:20 10:31 WBC 15.4 H (4.5-11.0) X10^3/uL RBC 3.91 L (4.5-5.9) X10^6/uL Hgb 9.9 L (13.5-17.5) g/dL Hct 29.9 L (41-53) % MCV 76.4 L D (80-100) fL MCH 25.4 L (26-34) PG MCHC 33.2 (30-36) % RDW 19.6 H (11.6-14.8) % Plt Count 355 (150-400) X10^3/uL Neut % (Auto) Not Reportable Lymph % (Auto) Not Reportable [place] % (Auto) Not Reportable Eos % (Auto) Not Reportable Baso % (Auto) Not Reportable Lymph # (Auto) Not Reportable [place] # (Auto) Not Reportable Baso # (Auto) Not Reportable Total Counted 100 Seg Neutrophils % 80.0 H (38-70) % Lymphocytes % (Manual) 10.0 L (25-45) % Monocytes % (Manual) 10.0 (2-11) % Neutrophils # (Manual) 18717 H (2549-8649) /uL Nucleated RBCs 3 H ( - 0) #/Diff Platelet Estimate Adequate on smear Plt Morphology Comment RBC Morphology See below Microcytosis 1+ H Macrocytosis 1+ H Target Cells 1+ H Schistocytes 1+ H Percent Retic 8.0 H (0.9-2.6) % Sodium 143 141 (137-145) mmol/L Potassium 3.7 4.0 (3.4-5.1) mmol/L Chloride 102 106 (98-107) mmol/L Carbon Dioxide 13 L 16 L (22-32) mmol/L BUN 17 19 (9-20) mg/dL Creatinine 3.16 H 2.70 H (0.66-1.25) mg/dL Estimated GFR 27 L 32 L (>60) mL/min BUN/Creatinine Ratio 5.4 L 7.0 (6-22) Glucose 130 H 128 H (70-99) mg/dL Lactate 3.8 H 1.3 (0.7-2.1) mmol/L Calcium 9.7 9.1 (8.4-10.2) mg/dL Total Bilirubin 2.7 H (0.2-1.3) mg/dL AST 76 H (17-59) IU/L ALT 54 H (<50) IU/L Alkaline Phosphatase 156 H D (38-126) U/L Total Protein 11.9 H (6.3-8.2) g/dL Albumin 5.7 H (3.5-5.0) g/dL Globulin 6.2 H (1.7-4.1) g/dL Albumin/Globulin Ratio 0.9 L (1.0-2.8) Lipase 127 (23-300) U/L Imaging Data CT scan - abdomen/pelvis: Radiologist's Impression: PROCEDURE: CT ABDOMEN PELVIS WO CON INDICATIONS: severe pain renal failure TECHNIQUE: CT of the abdomen and pelvis was obtained without intravenous contrast. Coronal and sagittal reformats were performed. For radiation dose reduction, the following was used: automated exposure control, adjustment of mA and/or kV according to patient size. COMPARISON: [facility], CT, CT CHEST ABD PEL W CON, 03/02/2025, 21:48. FINDINGS: Image quality: Diagnostic. Lower Chest: No significant findings. ABDOMEN: Liver: No contour-deforming mass. Gallbladder: Surgically absent Biliary ducts: No biliary dilation. Pancreas: No ductal dilation. Spleen: Not visualized. Adrenal Glands: No adrenal nodules. Kidneys and Ureters: No hydronephrosis. No contour-deforming mass. Stomach and Bowel: Several prominent loops of small bowel measuring up to 2.9 cm. There appears to be small bowel intussusception within the left upper quadrant spanning approximately 9 cm (2/51). Peritoneum: No abnormal intraperitoneal fluid. No free air. Ventral Wall: No significant hernia. Abdominal Nodes: No retroperitoneal or mesenteric adenopathy by size criteria. Vessels: Aorta and inferior vena cava are normal in size. PELVIS: Pelvic Organs: Unremarkable. Bladder: Decompressed, limiting evaluation. Pelvic Nodes: No enlarged lymph nodes. Miscellaneous: No inguinal hernias are seen. Bones: No aggressive osseous abnormality. Right hip arthroplasty diffuse heterogeneous appearance of the bone marrow. Deformity of the left femoral head is redemonstrated. IMPRESSION: 1. Left upper quadrant small bowel intussusception spanning approximately 9 cm. Few prominent loops of small bowel are noted measuring up to 2.9 cm, partial or developing obstruction is not excluded. 2. Diffuse heterogeneous appearance of the bones, consistent with history of sickle cell anemia. 3. Please see above for additional findings. Dictated by: Donte Jacob M.D. on 06/07/2025 at 8:33 Approved by: Donte Jacob M.D. on 06/07/2025 at 8:38 MDM Narrative Medical decision making narrative: MDM CC: Abdominal pain Complicating co-morbidities: Sickle cell, CVA Data collected from: Patient Medical records reviewed: Multiple ED records patient frequently visits Differential considered: Ischemic bowel, bowel obstruction, diverticulitis Exam documented above, pertinent findings include: Alert 24-year-old male appears to be in severe pain abdomen is diffusely tender no significant guarding Lab Test results independently reviewed as above. Pertinent findings: WBC she has leukocytosis of 15.4 stable anemia 9.9 hematocrit 29.2, significant left shift Reticulocyte count is 8.0 higher than his baseline CMP acute renal failure creatinine 3.16 baseline is 0.5, sodium 143 potassium 3.7 chloride 102 carbon dioxide is 13 Bilirubin elevated 2.7 but baseline for him, elevated AST at 76 elevated ALT 54 elevated alk-phos 156 normal lipase 126 Lactate 3.8-->1.3 Independently reviewed EKG as above Imaging studies independently reviewed: CT shows intussusception and left upper quadrant Consultations: Dr. Kauffman in ED to see and evaluate patient recommends admitting to hospitalist team due to complex medical problem, request NG Dr. Albert agrees to admits Treatments: IV fluid x2 L, Dilaudid, Zofran Re-evaluations: Patient continues to have pain, requiring more pain medication but pain is starting to improve. Discussion: Patient is a 24-year-old male presenting to day with increasing abdominal pain nausea and vomiting. He is found to be acute kidney injury with elevated creatinine of 3 which has improved with the IV fluids creatinine now is down to 2.7. CT confirms intussusception of 9 cm in the left upper quadrant. Lactate also elevated possible bowel ischemia. Blood cultures are pending Discharge Plan Departure Patient Disposition: Admitted to Surgery Clinical Impression: Intussusception, Sickle cell crisis Admit Date/Time: 06/07/25 11:44 Admit Provider: Pili Albert
[2025-06-07] MEDS: ONDANSETRON 4 MG/2 ML INJ IV (07:54)
[2025-06-07 08:44] LABS: Lactate (Lactic Acid) 3.8 mmol/L (0.7-2.1)
[2025-06-07] MEDS: PANTOPRAZOLE 40 MG VIAL IV (08:46)
[2025-06-07 08:56] LABS: Blood Urea Nitrogen 19 mg/dL (9-20); Calcium 9.1 mg/dL (8.4-10.2); Carbon Dioxide 16 mmol/L (22-32); Chloride 106 mmol/L (98-107); Estimated Glomerular Filt Rate 32 mL/min (>60); Glucose 128 mg/dL (70-99); HEMOLYSIS 34 (0-50); Potassium 4.0 mmol/L (3.4-5.1); Sodium 141 mmol/L (137-145)
[2025-06-07 10:02] LABS: Reflexed Lactate in 2 Hours Y
--- NOTE | 2025-06-07 10:28 | PM.CN.IH.1 ---
History of Present Illness Consult details Date Patient Seen: 06/07/25 Time Patient Seen: 10:28 Chief complaint: N/V/D Narrative: Lucretia is a 24-year-old man with sickle cell disease who presented to the emergency room this morning with 2 days of nausea, vomiting and abdominal pain. He had just been discharged from [facility] where he has been admitted for a sickle cell crisis. He typically has a sickle cell crisis about once a month or so. In the emergency department this morning he had a CT scan which showed a possible intussusception in the left upper quadrant. He reports that he has been passing gas. Prior abdominal surgeries include a minimally invasive splenectomy and cholecystectomy which was performed about 10 years ago at [facility] in [place]. He had a stroke as an and has some left-sided deficits. Meds Home Medications and Allergies Home Medications ?Medication ?Instructions ?Recorded ?Confirmed ?Type cholecalciferol (vitamin D3) 10 20 mcg (2 x 10 mcg (400 unit)) PO 10/25/24 06/06/25 Rx mcg (400 unit) capsule DAILY #180 caps albuterol sulfate 90 mcg/actuation 2 puff inhalation Q6H PRN wheezing 11/18/24 06/06/25 History aerosol inhaler hydroxyurea (sickle cell) 400 mg 400 mg PO DAILY #90 caps 01/12/25 06/06/25 Rx capsule duloxetine 60 mg capsule,delayed 60 mg PO DAILY #90 caps 05/01/25 06/06/25 Rx release lidocaine 5 % topical patch 1 patch topical DAILY PRN pain 05/30/25 06/06/25 Rx (scale score 1-3) #30 ea methocarbamol 750 mg tablet 750 mg PO Q8H PRN muscle spasm #20 05/30/25 06/06/25 Rx tabs oxycodone 5 mg tablet 5 mg PO Q6H PRN 06/06/25 06/06/25 History Allergies Allergy/AdvReac Type Severity Reaction Status Date / Time No Known Drug Allergies Allergy Verified 06/07/25 06:04 Exam Vital Signs (past 8 hours): - 06/07/25 06:03 06/07/25 06:08 06/07/25 06:30 Temperature 97.5 F L Pulse Rate 111 H 97 H Respiratory Rate 20 Blood Pressure 116/76 Pulse Oximetry 100 100 Oxygen Delivery Method Room Air Room Air Room Air 06/07/25 06:30 06/07/25 07:00 06/07/25 07:00 Temperature Pulse Rate 108 H Respiratory Rate Blood Pressure 110/69 101/68 Pulse Oximetry 97 Oxygen Delivery Method 06/07/25 07:30 06/07/25 07:30 06/07/25 08:15 Temperature Pulse Rate 97 H 91 H Respiratory Rate 31 H Blood Pressure 110/74 Pulse Oximetry 97 Oxygen Delivery Method 06/07/25 08:30 06/07/25 09:00 06/07/25 09:30 Temperature Pulse Rate 85 85 96 H Respiratory Rate 24 Blood Pressure Pulse Oximetry 97 99 Oxygen Delivery Method Oxygen Delivery Method Room Air Narrative Exam Narrative: Abdomen is soft, minimally tender There are at least 2 small surgical scars from his minimally invasive splenectomy and cholecystectomy Objective Labs 06/07/25 06:30 06/07/25 08:20 Labs: Laboratory Results - last 24 hr 06/07/25 06/07/25 06:30 08:20 WBC 15.4 H RBC 3.91 L Hgb 9.9 L Hct 29.9 L MCV 76.4 L D MCH 25.4 L MCHC 33.2 RDW 19.6 H Plt Count 355 Neut % (Auto) Not Reportable Lymph % (Auto) Not Reportable [place] % (Auto) Not Reportable Eos % (Auto) Not Reportable Baso % (Auto) Not Reportable Lymph # (Auto) Not Reportable [place] # (Auto) Not Reportable Baso # (Auto) Not Reportable Total Counted 100 Seg Neutrophils % 80.0 H Lymphocytes % (Manual) 10.0 L Monocytes % (Manual) 10.0 Neutrophils # (Manual) 49471 H Nucleated RBCs 3 H Platelet Estimate Adequate on smear Plt Morphology Comment RBC Morphology See below Microcytosis 1+ H Macrocytosis 1+ H Target Cells 1+ H Schistocytes 1+ H Percent Retic 8.0 H Sodium 143 141 Potassium 3.7 4.0 Chloride 102 106 Carbon Dioxide 13 L 16 L BUN 17 19 Creatinine 3.16 H 2.70 H Estimated GFR 27 L 32 L BUN/Creatinine Ratio 5.4 L 7.0 Glucose 130 H 128 H Lactate 3.8 H Calcium 9.7 9.1 Total Bilirubin 2.7 H AST 76 H ALT 54 H Alkaline Phosphatase 156 H D Total Protein 11.9 H Albumin 5.7 H Globulin 6.2 H Albumin/Globulin Ratio 0.9 L Lipase 127 PFSH Medical History History of CVA (cerebrovascular accident) Vitamin D deficiency PTSD (post-traumatic stress disorder) Depression Anxiety Seizure Anemia Avascular necrosis of bone Contracture, left elbow Contracture, left hand CVA (cerebral vascular accident) Sickle cell anemia Surgical History History of shoulder surgery 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 Family History Father Cancer Sickle cell trait Lupus Mother Sickle cell trait Brother Sickle cell trait Social History household members: significant other Tobacco & Substance Use alcohol intake: current Assessment & Plan Assessment and plan (1) Small bowel obstruction: Status: Acute Plan I explained to Lucretia that the CT report suggests he has an intussusception. Other possibilities include small bowel ischemia from a thromboembolic event or a small-bowel obstruction related to adhesions from his prior surgeries. The worse case scenario would be a small-bowel infarction from a thromboembolic event. I recommend we proceed to the OR for a diagnostic laparoscopy to directly visualize the entire small bowel. If there is any evidence of a small-bowel infarction I would perform a small-bowel resection. I discussed the possibility of converting to an exploratory laparotomy. He would like to proceed. I also discussed the findings of elevated creatinine with him. This may be simply a result of being dehydrated from two days of vomiting in which case this should resolve with IV fluids however if he has acute kidney injury he may need additional support including potentially requiring transfer to another institution with nephrology support. Time-Based Coding :: [TOTAL MINUTES] spent with patient and on the chart (including review of chart, obtaining history, exam, reviewing outside data, placing orders, documenting exam and treatment plan, and counseling patient) on [DATE]. PROFEE Charge Codes Inpatient or Observation consultation: [id number]
[2025-06-07 10:59] LABS: Lactate 2HR (Lactic Acid Rflx) 1.3 mmol/L (0.7-2.1)
[2025-06-07] MEDS: TETRACAINE/BENZOCAINE/BUTAMBEN (CETACAINE) BOTTLE 1 SPRAY TOP (11:00)
--- NOTE | 2025-06-07 11:47 | P.HP_ITS ---
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 He presents again today with nausea, vomiting and abdominal pain. CT scan suggested intussusception so he has had a laparoscopic exploratory surgery today that showed no small bowel abnormalities. The appendix was thickened but not inflamed. An appendectomy was done. Now that intussusception has been ruled out this appears to be a sickle cell pain crisis again. At the time of his last discharge in March the hydroxyurea dose was increased: (Recommend gradual outpatient up-titration of hydroxyurea over several weeks to maximum tolerated dose, which could be up to 35 milligrams/kilogram daily (up to 2200 mg daily), with attention to CBC to maintain ANC of 1500 to 3000/microL, absolute reticulocyte count (ARC) of 80,000 to 100,000/microL (the absolute reticulocyte count is calculated as the percent reticulocytes x RBC count (x?106/microL) x 10), and a platelet count of 80,000 to 150,000/microL.) Assessment and plan: Abdominal pain/sickle cell pain crisis, present on admission. Active. -exploratory laparotomy on day of admission ruled out the intussusception suspected on CT scan. Prophylactic appendectomy was done. -initial lactic acid 3.8, down to 1.3 with IV fluid preoperatively. -initial white blood count 15.4, preoperative metronidazole and ciprofloxacin were given in the ED. -continue pain control with IV hydromorphone per General surgery. Also on duloxetine. -regular diet. IV fluid if needed. 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 Active. -admission hemoglobin 9.9 is in his usual 9-10 range. -continue outpatient up titration of hydroxyurea per goal of 35 milligrams/kilogram daily. Acute kidney injury, present on admission. Active. -baseline creatinine 0.58, presenting at 3.16, down to 2.7 with several L of IV fluid. -encourage oral fluid intake and recheck in the morning Enoxaparin for DVT prevention His mother is his backup decision maker. [facility] Medical History History of CVA (cerebrovascular accident) Vitamin D deficiency PTSD (post-traumatic stress disorder) Depression Anxiety Seizure Anemia Avascular necrosis of bone Contracture, left elbow Contracture, left hand CVA (cerebral vascular accident) Sickle cell anemia Surgical History History of shoulder surgery 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 Family History Father Cancer Sickle cell trait Lupus Mother Sickle cell trait Brother Sickle cell trait Social History household members: significant other Smoking Status: Current some day smoker alcohol intake: current Meds Home Medications and Allergies Home Medications ?Medication ?Instructions ?Recorded ?Confirmed ?Type cholecalciferol (vitamin D3) 10 20 mcg (2 x 10 mcg (40 0 unit)) PO 10/25/24 06/06/25 Rx mcg (400 unit) capsule DAILY #180 caps albuterol sulfate 90 mcg/actuation 2 puff inhalation Q 6H PRN wheezing 11/18/24 06/06/25 History aerosol inhaler hydroxyurea (sickle cell) 400 mg 400 mg PO DAILY #90 c aps 01/12/25 06/06/25 Rx capsule duloxetine 60 mg capsule,delayed 60 mg PO DAILY #90 ca ps 05/01/25 06/06/25 Rx release lidocaine 5 % topical patch 1 patch topical DAILY PRN pain 05/30/25 06/06/25 Rx (scale score 1-3) #30 ea methocarbamol 750 mg tablet 750 mg PO Q8H PRN muscle s pasm #20 05/30/25 06/06/25 Rx tabs oxycodone 5 mg tablet 5 mg PO Q6H PRN 06/06/25 History Allergies Allergy/AdvReac Type Severity Reaction Status Date / Time No Known Drug Allergies Allergy Verified 06/07/25 06:04 Review of Systems Review of Systems Narrative: Positive for abdominal pain, nausea and vomiting. Negative for fevers, chills, sweats, chest pain, coughing, rashes, dysuria, bleeding, headaches, sore throat, new allergies. Exam Vital Signs (past 8 hours): - 06/07/25 06:03 06/07/25 06:08 06/07/25 06:30 Temperature 97.5 F L Pulse Rate 111 H 97 H Respiratory Rate 20 Blood Pressure 116/76 Pulse Oximetry 100 100 Oxygen Delivery Method Room Air Room Air Room Air 06/07/25 06:30 06/07/25 07:00 06/07/25 07:00 Temperature Pulse Rate 108 H Respiratory Rate Blood Pressure 110/69 101/68 Pulse Oximetry 97 Oxygen Delivery Method 06/07/25 07:30 06/07/25 07:30 06/07/25 08:15 Temperature Pulse Rate 97 H 91 H Respiratory Rate 31 H Blood Pressure 110/74 Pulse Oximetry 97 Oxygen Delivery Method 06/07/25 08:30 06/07/25 09:00 06/07/25 09:30 Temperature Pulse Rate 85 85 96 H Respiratory Rate 24 Blood Pressure Pulse Oximetry 97 99 Oxygen Delivery Method 06/07/25 09:56 06/07/25 09:56 06/07/25 10:00 Temperature Pulse Rate 87 Respiratory Rate Blood Pressure 111/58 L 121/64 Pulse Oximetry 97 Oxygen Delivery Method 06/07/25 10:00 06/07/25 10:30 06/07/25 10:30 Temperature Pulse Rate 94 H 87 Respiratory Rate Blood Pressure 115/55 L Pulse Oximetry 98 96 Oxygen Delivery Method 06/07/25 11:00 06/07/25 11:00 Temperature Pulse Rate 101 H Respiratory Rate 26 H Blood Pressure 115/62 Pulse Oximetry 97 Oxygen Delivery Method Oxygen Delivery Method Room Air Narrative Exam Narrative: Alert and oriented x3. Mild distress from abdominal pain and nausea. Pupils are equally round and reactive to light and accommodation. Extraocular muscles are intact. Sclerae are pink and nonicteric. Throat looks normal. No lymph nodes are felt head, neck, supraclavicular area. There is no thyromegaly. JVD is less than 6 cm. No carotid bruits are heard. Heart is regular rate and rhythm without murmur. Lungs are clear to auscultation bilaterally. Abdomen is soft, bowel sounds positive, nontender, no organomegaly. Extremities have no ankle edema. Skin has no rash or jaundice. Left upper extremity contracted and atrophic. Otherwise motor function is 4/5. There is no tremor. Cranial nerves 2-12 test intact. Objective Labs 06/07/25 06:30 06/07/25 08:20 Labs: Laboratory Results - last 24 hr 06/07/25 06/07/25 06/07/25 06:30 08:20 10:31 WBC 15.4 H RBC 3.91 L Hgb 9.9 L Hct 29.9 L MCV 76.4 L D MCH 25.4 L MCHC 33.2 RDW 19.6 H Plt Count 355 Neut % (Auto) Not Reportable Lymph % (Auto) Not Reportable [place] % (Auto) Not Reportable Eos % (Auto) Not Reportable Baso % (Auto) Not Reportable Lymph # (Auto) Not Reportable [place] # (Auto) Not Reportable Baso # (Auto) Not Reportable Total Counted 100 Seg Neutrophils % 80.0 H Lymphocytes % (Manual) 10.0 L Monocytes % (Manual) 10.0 Neutrophils # (Manual) 70087 H Nucleated RBCs 3 H Platelet Estimate Adequate on smear Plt Morphology Comment RBC Morphology See below Microcytosis 1+ H Macrocytosis 1+ H Target Cells 1+ H Schistocytes 1+ H Percent Retic 8.0 H Sodium 143 141 Potassium 3.7 4.0 Chloride 102 106 Carbon Dioxide 13 L 16 L BUN 17 19 Creatinine 3.16 H 2.70 H Estimated GFR 27 L 32 L BUN/Creatinine Ratio 5.4 L 7.0 Glucose 130 H 128 H Lactate 3.8 H 1.3 Calcium 9.7 9.1 Total Bilirubin 2.7 H AST 76 H ALT 54 H Alkaline Phosphatase 156 H D Total Protein 11.9 H Albumin 5.7 H Globulin 6.2 H Albumin/Globulin Ratio 0.9 L Lipase 127 Assessment & Plan Time-Based Coding :: [TOTAL MINUTES] spent with patient and on the chart (including review of chart, obtaining history, exam, reviewing outside data, placing orders, documenting exam and treatment plan, and counseling patient) on [DATE].
[2025-06-07] MEDS: SODIUM CHLORIDE 0.9% 1,000 ML 84 ML IV (11:59)
[2025-06-07] MEDS: CIPROFLOXACIN 400 MG/200 ML PIGGYBACK 200 MG IV (12:36)
[2025-06-07] MEDS: metroNIDAZOLE 500 MG/100 ML PIGGYBACK 100 MG IV (12:37)
--- NOTE | 2025-06-07 13:02 | SUR.OPER ---
supine.arms tucked
--- NOTE | 2025-06-07 14:01 | P.OP_ITS ---
Operative Date/Time/Diagnoses Date of procedure: 06/07/25 Time of procedure: 14:01 Pre-op diagnosis: Intussusception versus small-bowel infarction versus small- bowel obstruction Post-op diagnosis: same Procedure & Clinicians Procedure: Diagnostic laparoscopy Laparoscopic appendectomy Same procedure(s) as scheduled: Yes Indications: Abdominal pain, nausea, vomiting and abnormal CT scan Surgeon: Jorge L Kauffman Assisted?: No Anesthesia Type: General Operative Notes Findings: Normal small bowel, dilated, thickened appendix Applied: none Estimated Blood Loss (mL): 5 Procedure in detail: The patient is a 24-year-old man with sickle cell disease. He presented with the abdominal pain, nausea and vomiting and a CT scan was performed which suggested a possible intussusception of the small bowel in the left upper quadrant. He was consented for diagnostic laparoscopy to rule out intussusception, small-bowel infarction, small-bowel obstruction or other intra- abdominal emergencies. The patient was brought to the operating room, placed on the table in the supine position and general endotracheal anesthesia was induced. The patient was given ciprofloxacin and Flagyl. The abdomen was prepped and draped in the usual fashion and a time-out was performed. We made a 1 cm infraumbilical midline incision and dissected down to the anterior sheath. The anterior sheath was divided with cautery. The posterior sheath was divided sharply between clamps. The abdomen was entered atraumatically. The 12 mm Albarran port was placed. The camera was inserted and there was no evidence of an injury from the entry. The bowel was moderately dilated. Next, 5 mm ports were placed in the subxiphoid and suprapubic positions under direct vision. The patient was placed in slight Trendelenburg and the table was airplane to slightly to the patient's right. The transverse colon was grasped and elevated to reveal the ligament of Treitz and the proximal jejunum. The pancreas and inferior mesenteric vein were easily visualized in the retroperitoneum. The small bowel was run from the ligament Treitz to the ileocecal valve. There was no evidence of intussusception, small bowel infarction or a transition point to suggest a small-bowel obstruction. The ascending colon, transverse colon, descending colon and sigmoid colon all appeared normal. The appendix was noted to be rather dilated and thickened although not obviously inflamed. A decision was made to perform laparoscopic appendectomy. The procedure was used to divide the mesoappendix. Two Vicryl Endoloops were placed at the base of the appendix and a third was placed more distally and the appendix was divided sharply and placed in a specimen bag. We took one last look around the abdomen and found no other abnormalities. The 5 mm ports removed under direct vision and the abdomen was desufflated. The Albarran port in the specimen bag were removed. Additional local was injected. The infraumbilical fascial defect was closed with 2 interrupted 0 Vicryl sutures. The skin incisions were closed with 4-0 Monocryl and Steri-Strips. Dressings were applied to the wounds. EBL: 5 mL Specimen: Appendix Complications: none Post-operative Condition: stable Disposition: PACU
--- NOTE | 2025-06-07 14:50 | PC.NURSE ---
Pt arrived to the unit at 1440, A&Ox4, VSS, afebrile, able to make needs known, and oriented to the room. The pt has clothes with him and shoes, one black cellphone and one pink cellphone with him.
[2025-06-07] MEDS: ENOXAPARIN 40 MG/0.4 ML SYRINGE SUBCUT (15:03)
[2025-06-07] MEDS: SODIUM CHLORIDE 0.9% 1,000 ML 100 ML IV (15:09)
[2025-06-07] MEDS: HYDROmorphone 2 MG/ML SYRINGE IV ×7 (16:16→22:38)
[2025-06-07] MEDS: SODIUM CHLORIDE 0.9% FLUSH 10 ML IV (19:03)
[2025-06-08] MEDS: HYDROmorphone 2 MG/ML SYRINGE IV ×7 (00:11→18:53)
[2025-06-08] MEDS: SODIUM CHLORIDE 0.9% 1,000 ML 100 ML IV ×3 (01:18→22:48)
[2025-06-08 06:25] LABS: Mean Corpuscular HGB Conc 33.3 % (30-36); Mean Corpuscular Hemoglobin 25.2 PG (26-34); Mean Corpuscular Volume 75.6 fL (80-100); Platelet Count 285 X10^3/uL (150-400)
[2025-06-08 06:35] LABS: Add Manual Diff / Slide Review YES
[2025-06-08 06:40] LABS: Blood Urea Nitrogen 8 mg/dL (9-20); Calcium 8.3 mg/dL (8.4-10.2); Carbon Dioxide 23 mmol/L (22-32); Chloride 109 mmol/L (98-107); Estimated Glomerular Filt Rate > 60 mL/min (>60); Glucose 96 mg/dL (70-99); HEMOLYSIS < 15 (0-50); Potassium 4.4 mmol/L (3.4-5.1); Sodium 139 mmol/L (137-145)
[2025-06-08 06:48] LABS: Hematocrit 20.3 % (41-53); Hemoglobin 6.8 g/dL (13.5-17.5)
[2025-06-08 06:56] LABS: Anisocytosis 2+; Lymphocytes Percent Manual 17.0 % (25-45); Microcytosis 1+; Monocytes Percent Manual 14.0 % (2-11); Neutrophils Absolute Manual 13455 /uL (3000-5900); Schistocytes 1+; Segmented Neutrophils Percent 69.0 % (38-70); Target Cells 1+; Total Cells Counted 100
--- NOTE | 2025-06-08 07:51 | PM.PN.1 ---
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 He presents again today with nausea, vomiting and abdominal pain. CT scan suggested intussusception so he has had a laparoscopic exploratory surgery today that showed no small bowel abnormalities. The appendix was thickened but not inflamed. An appendectomy was done. Now that intussusception has been ruled out this appears to be a sickle cell pain crisis again. At the time of his last discharge in March the hydroxyurea dose was increased: (Recommend gradual outpatient up-titration of hydroxyurea over several weeks to maximum tolerated dose, which could be up to 35 milligrams/kilogram daily (up to 2200 mg daily), with attention to CBC to maintain ANC of 1500 to 3000/microL, absolute reticulocyte count (ARC) of 80,000 to 100,000/microL (the absolute reticulocyte count is calculated as the percent reticulocytes x RBC count (x?106/microL) x 10), and a platelet count of 80,000 to 150,000/microL.) 06/08: He says he is doing remarkably well today. The abdominal pain is improving. The hemoglobin has dropped from 9.9 down to 6.8 consistent with a sickle cell crisis. He will be receiving 1 unit of packed red blood cells today. The BNP today is normal and the white blood count is 16.5. Assessment and plan: Abdominal pain/sickle cell pain crisis, present on admission. Active. -exploratory laparotomy on day of admission ruled out the intussusception suspected on CT scan. Prophylactic appendectomy was done. -initial lactic acid 3.8, down to 1.3 with IV fluid preoperatively. -initial white blood count 15.4, preoperative metronidazole and ciprofloxacin were given in the ED. -continue pain control with IV hydromorphone per General surgery. Also on duloxetine. -regular diet. IV fluid if needed. 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 Active. -admission hemoglobin 9.9 is in his usual 9-10 range. Hemoglobin dropped to 6.8 so 1 unit blood transfusion was given on 06/08. -continue outpatient up titration of hydroxyurea per goal of 35 milligrams/kilogram daily. Acute kidney injury, present on admission. Active. -baseline creatinine 0.58, presenting at 3.16, down to 2.7 with several L of IV fluid. Creatinine 0.61 on 06/08. Enoxaparin for DVT prevention His mother is his backup decision maker. Disposition: Back home on 06/09 if this symptomatic improving trend continues and the hemoglobin stabilizes. Exam Vital Signs (past 8 hours): Oxygen Delivery Method Room Air Objective Labs 06/08/25 06:00 06/08/25 06:00 Labs: Laboratory Results - last 24 hr 06/07/25 06/07/25 06/08/25 08:20 10:31 06:00 WBC 19.5 H RBC 2.68 L Hgb 6.8 L* Hct 20.3 L* MCV 75.6 L MCH 25.2 L MCHC 33.3 RDW 19.8 H Plt Count 285 Neut % (Auto) Not Reportable Lymph % (Auto) Not Reportable [place] % (Auto) Not Reportable Eos % (Auto) Not Reportable Baso % (Auto) Not Reportable Lymph # (Auto) Not Reportable [place] # (Auto) Not Reportable Baso # (Auto) Not Reportable Total Counted 100 Seg Neutrophils % 69.0 Lymphocytes % (Manual) 17.0 L Monocytes % (Manual) 14.0 H Neutrophils # (Manual) 86214 H Nucleated RBCs 1 H RBC Morphology See below Anisocytosis 2+ H Microcytosis 1+ H Target Cells 1+ H Schistocytes 1+ H Sodium 141 139 Potassium 4.0 4.4 Chloride 106 109 H Carbon Dioxide 16 L 23 BUN 19 8 L Creatinine 2.70 H 0.61 L Estimated GFR 32 L > 60 BUN/Creatinine Ratio 7.0 13.1 Glucose 128 H 96 Lactate 3.8 H 1.3 Calcium 9.1 8.3 L PFSH Medical History History of CVA (cerebrovascular accident) Vitamin D deficiency PTSD (post-traumatic stress disorder) Depression Anxiety Seizure Anemia Avascular necrosis of bone Contracture, left elbow Contracture, left hand CVA (cerebral vascular accident) Sickle cell anemia Surgical History History of shoulder surgery 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 Family History Father Cancer Sickle cell trait Lupus Mother Sickle cell trait Brother Sickle cell trait Social History household members: significant other Smoking Status: Current some day smoker alcohol intake: current Assessment & Plan Time-Based Coding :: [TOTAL MINUTES] spent with patient and on the chart (including review of chart, obtaining history, exam, reviewing outside data, placing orders, documenting exam and treatment plan, and counseling patient) on [DATE]. Quality VTE Deep Vein Thrombosis/Pulmonary Embolism Present on Admission: No
[2025-06-08] MEDS: ENOXAPARIN 40 MG/0.4 ML SYRINGE SUBCUT (09:05)
[2025-06-08 09:22] VITALS: BP 109/61; PULSE 89; RESP 14; TEMP 36.1; O2SAT 95
--- NOTE | 2025-06-08 13:09 | PM.PN.IH.1 ---
Subjective Subjective Date Patient Seen: 06/08/25 Interval history: Some incisional pain. Tolerating a regular diet. Exam Vital Signs (past 8 hours): - 06/08/25 09:22 Temperature 97.0 F L Pulse Rate 89 Respiratory Rate 14 Blood Pressure 109/61 Pulse Oximetry 95 Oxygen Flow Rate 0 Oxygen Delivery Method Room Air Oxygen Flow Rate 0 Narrative Exam Narrative: Abdomen is soft, appropriately tender Objective Labs 06/08/25 06:00 06/08/25 06:00 Labs: Laboratory Results - last 24 hr 06/08/25 06/08/25 06:00 07:42 WBC 19.5 H RBC 2.68 L Hgb 6.8 L* Cancelled Hct 20.3 L* Cancelled MCV 75.6 L MCH 25.2 L MCHC 33.3 RDW 19.8 H Plt Count 285 Neut % (Auto) Not Reportable Lymph % (Auto) Not Reportable [place] % (Auto) Not Reportable Eos % (Auto) Not Reportable Baso % (Auto) Not Reportable Lymph # (Auto) Not Reportable [place] # (Auto) Not Reportable Baso # (Auto) Not Reportable Total Counted 100 Seg Neutrophils % 69.0 Lymphocytes % (Manual) 17.0 L Monocytes % (Manual) 14.0 H Neutrophils # (Manual) 23810 H Nucleated RBCs 1 H RBC Morphology See below Anisocytosis 2+ H Microcytosis 1+ H Target Cells 1+ H Schistocytes 1+ H Sodium 139 Potassium 4.4 Chloride 109 H Carbon Dioxide 23 BUN 8 L Creatinine 0.61 L Estimated GFR > 60 BUN/Creatinine Ratio 13.1 Glucose 96 Calcium 8.3 L Blood Type A Positive Antibody Screen Negative Crossmatch See Detail [facility] Medical History History of CVA (cerebrovascular accident) Vitamin D deficiency PTSD (post-traumatic stress disorder) Depression Anxiety Seizure Anemia Avascular necrosis of bone Contracture, left elbow Contracture, left hand CVA (cerebral vascular accident) Sickle cell anemia Surgical History History of shoulder surgery 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 Family History Father Cancer Sickle cell trait Lupus Mother Sickle cell trait Brother Sickle cell trait Social History household members: significant other Smoking Status: Current some day smoker alcohol intake: current Assessment & Plan Assessment and plan (1) Sickle cell crisis: Status: Acute Plan Doing well postop day 1 following diagnostic laparoscopy with appendectomy Advance diet as tolerated Suspect symptoms are related primarily to sickle cell crisis rather than any gastrointestinal problems Time-Based Coding :: [TOTAL MINUTES] spent with patient and on the chart (including review of chart, obtaining history, exam, reviewing outside data, placing orders, documenting exam and treatment plan, and counseling patient) on [DATE]. Quality VTE Deep Vein Thrombosis/Pulmonary Embolism Present on Admission: No IH PROFEE Template Cutter Document charge(s): No
[2025-06-08 13:50] VITALS: BP 112/75; PULSE 61; RESP 15; TEMP 36.1
[2025-06-08 14:11] VITALS: BP 104/54; PULSE 63; RESP 16; TEMP 36.1
[2025-06-08 14:55] VITALS: BP 100/60; PULSE 62; RESP 16; TEMP 36.1
--- NOTE | 2025-06-08 16:09 | CM.DANOTE ---
DCP Assessment note pt is a 24yo M well known to . often admitted in sickle cell crisis. additionally, this admission, he is POD1 lap appy with Dr. Kauffman. per provider in morning rounds, pt had sickle cell crisis in abdomen. per chart review, pt has been making his OP f/u appts. has an OP appt with PCP 06/11- goal to dc by 06/10 to make PCP appt. per chart/previous CM notes, pt lives indep with SO in [employer]. works for [employer]. may need work excuse note at dc? per previous CM notes, does not often have any DCP needs. P: anticipate eventual dc home when medically stable. will continue to follow closely in case any DCP needs should arise VISHNU Thacker Discharge Planning/Care Management Advanced directive, confirm from FAMILY Start: 06/07/25 16:02 Freq: Q24H Status: Active Protocol: Document 06/07/25 16:02 MS (Rec: 06/07/25 16:03 MS [id number]) Advance Directive, confirm on record Time 16:03 Person contacted Julio Cesar Copy received No CM Discharge Assessment Start: 06/07/25 11:52 Freq: Status: Active Protocol: Document 06/08/25 16:03 SL (Rec: 06/08/25 16:04 SL [id number]) Discharge Planning Assessment Assigned Discharge VISHNU Gomez Development Technical Lead Provider Jen Albarran Insurance Medicaid DPOA/Assigned PO Harrell Designee Name Contact Information [phone] Advance Directives? No Advance Directives No on File History Provided By Patient,Medical Record Prior Living Apartment/Condo Arrangements Household Members significant other Independent with ADL Yes 's Is patient alert and Yes oriented? Discharge Plan Home Transportation Sig Other to transport Arrangement Referrals Initiated None needed Review Status In Process Please Provide Date 06/01/25 Initial DC Assessment Was Performed Next Review Type Continued Stay Review
[2025-06-08 17:53] LABS: Hematocrit 25.3 % (41-53); Hemoglobin 8.5 g/dL (13.5-17.5)
[2025-06-08 19:00] VITALS: BP 119/70; PULSE 77; RESP 18; TEMP 36.6; O2SAT 96
[2025-06-08 20:55] VITALS: BP 118/76; PULSE 74; RESP 16; TEMP 36.2; O2SAT 98
--- NOTE | 2025-06-09 06:48 | P.PN_ITS ---
Subjective Subjective Date Patient Seen: 06/09/25 Time Patient Seen: 06:48 Interval history: Feeling better Incisions sore No n/v AVSS Exam Vital Signs (past 8 hours): Oxygen Delivery Method Room Air Oxygen Flow Rate 0 Const General: comfortable Resp Effort & Inspection: normal respiratory effort and able to speak in complete sentences Cardio Rate: regular rate GI Other: ABD: soft, appropriate tender, dressing intact and dry, no erythema Objective Labs 06/08/25 17:30 06/08/25 06:00 Labs: Laboratory Results - last 24 hr 06/08/25 06/08/25 06/08/25 06:00 07:42 17:30 WBC 19.5 H RBC 2.68 L Hgb 6.8 L* Cancelled 8.5 L Hct 20.3 L* Cancelled 25.3 L MCV 75.6 L MCH 25.2 L MCHC 33.3 RDW 19.8 H Plt Count 285 Neut % (Auto) Not Reportable Lymph % (Auto) Not Reportable [place] % (Auto) Not Reportable Eos % (Auto) Not Reportable Baso % (Auto) Not Reportable Lymph # (Auto) Not Reportable [place] # (Auto) Not Reportable Baso # (Auto) Not Reportable Total Counted 100 Seg Neutrophils % 69.0 Lymphocytes % (Manual) 17.0 L Monocytes % (Manual) 14.0 H Neutrophils # (Manual) 73923 H Nucleated RBCs 1 H RBC Morphology See below Anisocytosis 2+ H Microcytosis 1+ H Target Cells 1+ H Schistocytes 1+ H Sodium 139 Potassium 4.4 Chloride 109 H Carbon Dioxide 23 BUN 8 L Creatinine 0.61 L Estimated GFR > 60 BUN/Creatinine Ratio 13.1 Glucose 96 Calcium 8.3 L Blood Type A Positive Antibody Screen Negative Crossmatch See Detail [facility] Medical History History of CVA (cerebrovascular accident) Vitamin D deficiency PTSD (post-traumatic stress disorder) Depression Anxiety Seizure Anemia Avascular necrosis of bone Contracture, left elbow Contracture, left hand CVA (cerebral vascular accident) Sickle cell anemia Surgical History History of shoulder surgery 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 Family History Father Cancer Sickle cell trait Lupus Mother Sickle cell trait Brother Sickle cell trait Social History household members: significant other Smoking Status: Current some day smoker alcohol intake: current Assessment & Plan Assessment and plan (1) Sickle cell crisis: Status: Acute Plan POD#2 lap appy, await path Stable postop Time-Based Coding :: [TOTAL MINUTES] spent with patient and on the chart (including review of chart, obtaining history, exam, reviewing outside data, placing orders, documenting exam and treatment plan, and counseling patient) on [DATE]. Quality VTE Deep Vein Thrombosis/Pulmonary Embolism Present on Admission: No IH PROFEE Business Center Representative Document charge(s): Yes Charge Codes Subsequent inpatient/observation care: [id number]
[2025-06-09 07:11] LABS: Add Manual Diff / Slide Review YES; Hematocrit 23.6 % (41-53); Hemoglobin 7.8 g/dL (13.5-17.5); Mean Corpuscular HGB Conc 33.3 % (30-36); Mean Corpuscular Hemoglobin 25.6 PG (26-34); Mean Corpuscular Volume 77.1 fL (80-100); Platelet Count 347 X10^3/uL (150-400)
[2025-06-09 07:28] LABS: Lymphocytes Percent Manual 41.0 % (25-45); Monocytes Percent Manual 11.0 % (2-11); Neutrophils Absolute Manual 8736 /uL (3000-5900); Segmented Neutrophils Percent 48.0 % (38-70); Total Cells Counted 100
--- NOTE | 2025-06-09 07:40 | P.DS_ITS ---
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 He presents again today with nausea, vomiting and abdominal pain. CT scan suggested intussusception so he has had a laparoscopic exploratory surgery today that showed no small bowel abnormalities. The appendix was thickened but not inflamed. An appendectomy was done. Now that intussusception has been ruled out this appears to be a sickle cell pain crisis again. At the time of his last discharge in March the hydroxyurea dose was increased: (Recommend gradual outpatient up-titration of hydroxyurea over several weeks to maximum tolerated dose, which could be up to 35 milligrams/kilogram daily (up to 2200 mg daily), with attention to CBC to maintain ANC of 1500 to 3000/microL, absolute reticulocyte count (ARC) of 80,000 to 100,000/microL (the absolute reticulocyte count is calculated as the percent reticulocytes x RBC count (x?106/microL) x 10), and a platelet count of 80,000 to 150,000/microL.) Assessment and plan: Abdominal pain/sickle cell pain crisis, present on admission. Active. -exploratory laparotomy on day of admission ruled out the intussusception suspected on CT scan. Prophylactic appendectomy was done. -initial lactic acid 3.8, down to 1.3 with IV fluid preoperatively. -initial white blood count 15.4, preoperative metronidazole and ciprofloxacin were given in the ED. -continue pain control with IV hydromorphone per General surgery. Also on duloxetine. -regular diet. IV fluid if needed. 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 Active. -admission hemoglobin 9.9 is in his usual 9-10 range. -continue outpatient up titration of hydroxyurea per goal of 35 milligrams/kilogram daily. Acute kidney injury, present on admission. Active. -baseline creatinine 0.58, presenting at 3.16, down to 2.7 with several L of IV fluid. -encourage oral fluid intake and recheck in the morning Enoxaparin for DVT prevention His mother is his backup decision maker. 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 He presents again today with nausea, vomiting and abdominal pain. CT scan suggested intussusception so he has had a laparoscopic exploratory surgery today that showed no small bowel abnormalities. The appendix was thickened but not inflamed. An appendectomy was done. Now that intussusception has been ruled out this appears to be a sickle cell pain crisis again. At the time of his last discharge in March the hydroxyurea dose was increased: (Recommend gradual outpatient up-titration of hydroxyurea over several weeks to maximum tolerated dose, which could be up to 35 milligrams/kilogram daily (up to 2200 mg daily), with attention to CBC to maintain ANC of 1500 to 3000/microL, absolute reticulocyte count (ARC) of 80,000 to 100,000/microL (the absolute reticulocyte count is calculated as the percent reticulocytes x RBC count (x?106/microL) x 10), and a platelet count of 80,000 to 150,000/microL.) 06/08: He says he is doing remarkably well today. The abdominal pain is improving. The hemoglobin has dropped from 9.9 down to 6.8 consistent with a sickle cell crisis. He will be receiving 1 unit of packed red blood cells today. The BNP today is normal and the white blood count is 16.5. Assessment and plan: Abdominal pain/sickle cell pain crisis, present on admission. Active. -exploratory laparotomy on day of admission ruled out the intussusception suspected on CT scan. Prophylactic appendectomy was done. -initial lactic acid 3.8, down to 1.3 with IV fluid preoperatively. -initial white blood count 15.4, preoperative metronidazole and ciprofloxacin were given in the ED. -continue pain control with IV hydromorphone per General surgery. Also on duloxetine. -regular diet. IV fluid if needed. 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 Active. -admission hemoglobin 9.9 is in his usual 9-10 range. Hemoglobin dropped to 6.8 so 1 unit blood transfusion was given on 06/08. -continue outpatient up titration of hydroxyurea per goal of 35 milligrams/kilogram daily. Acute kidney injury, present on admission. Active. -baseline creatinine 0.58, presenting at 3.16, down to 2.7 with several L of IV fluid. Creatinine 0.61 on 06/08. Enoxaparin for DVT prevention His mother is his backup decision maker. Disposition: Back home on 06/09 if this symptomatic improving trend continues and the hemoglobin stabilizes. Exam Vital Signs (past 8 hours): Oxygen Delivery Method Room Air Oxygen Flow Rate 0 Objective Labs 06/09/25 06:48 06/08/25 06:00 Labs: Laboratory Results - last 24 hr 06/08/25 06/08/25 06/09/25 07:42 17:30 06:48 WBC 18.2 H RBC 3.06 L Hgb Cancelled 8.5 L 7.8 L Hct Cancelled 25.3 L 23.6 L MCV 77.1 L MCH 25.6 L MCHC 33.3 RDW 20.3 H Plt Count 347 Neut % (Auto) Not Reportable Lymph % (Auto) Not Reportable [place] % (Auto) Not Reportable Eos % (Auto) Not Reportable Baso % (Auto) Not Reportable Lymph # (Auto) Not Reportable [place] # (Auto) Not Reportable Baso # (Auto) Not Reportable Total Counted 100 Seg Neutrophils % 48.0 Lymphocytes % (Manual) 41.0 Monocytes % (Manual) 11.0 Neutrophils # (Manual) 8736 H RBC Morphology Not Reportable Sickle Cells 3+ H Blood Type A Positive Antibody Screen Negative Crossmatch See Detail [facility] Medical History History of CVA (cerebrovascular accident) Vitamin D deficiency PTSD (post-traumatic stress disorder) Depression Anxiety Seizure Anemia Avascular necrosis of bone Contracture, left elbow Contracture, left hand CVA (cerebral vascular accident) Sickle cell anemia Surgical History History of shoulder surgery 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 Family History Father Cancer Sickle cell trait Lupus Mother Sickle cell trait Brother Sickle cell trait Social History household members: significant other Smoking Status: Current some day smoker alcohol intake: current Discharge Plan Discharge orders & Medications Prescriptions: No Action cholecalciferol (vitamin D3) 10 mcg (400 unit) capsule 20 mcg PO DAILY Qty: 180 0RF Rx Instructions: Start two capsules daily after 6 weeks of 1250mcg weekly dosing. duloxetine 60 mg capsule,delayed release(DR/EC) 60 mg PO DAILY Qty: 90 2RF oxycodone 5 mg tablet 5 mg PO Q6H PRN (Reason: pain, moderate, pain mild, pain, severe) albuterol sulfate 90 mcg/actuation HFA aerosol inhaler 2 puff inhalation Q6H PRN (Reason: wheezing) hydroxyurea (sickle cell) 400 mg capsule 400 mg PO DAILY Qty: 90 3RF methocarbamol 750 mg tablet 750 mg PO Q8H PRN (Reason: muscle spasm) Qty: 20 0RF lidocaine 5 % adhesive patch,medicated 1 patch topical DAILY PRN (Reason: pain (scale score 1-3)) Qty: 30 0RF Rx Instructions: leave on most painful area for up to 12 hrs Follow up/Referrals: Jen Albarran FNP-BC [Primary Care Provider, [facility]] Discharge Data Primary Care Provider: Jne Albarran Quality VTE Deep Vein Thrombosis/Pulmonary Embolism Present on Admission: No
[2025-06-09 07:41] LABS: Sickle Cells 2+
[2025-06-09] MEDS: ENOXAPARIN 40 MG/0.4 ML SYRINGE SUBCUT (08:08)
[2025-06-09] MEDS: SODIUM CHLORIDE 0.9% 1,000 ML 100 ML IV ×2 (08:12→18:04)
[2025-06-09 08:23] VITALS: BP 111/75; PULSE 75; TEMP 36.3; O2SAT 97
[2025-06-09 10:11] VITALS: RESP 20
[2025-06-09] MEDS: ONDANSETRON 4 MG/2 ML INJ IV (10:26)
--- NOTE | 2025-06-09 14:31 | CM.DPNOTE ---
DCP note BROOM WORKER reviewed EMR per provider in morning rounds, the real reason for his flair up was he ran out of his medication due to the [facility] pharmacy not having it? asked this BROOM WORKER to f/u with pt about med access. BROOM WORKER met with pt and gf in room. reports he called [facility] and they didn't have it either. open to this BROOM WORKER assisting in that search for him. pharmacy [facility] agreed to assist in process. found out it was a dosing issue, reviewed with provider, and pt was able to change dosing. pt able to get appropriate med at [facility] in [place] now or [facility] here. chart still says self pay, historically has Medicaid? [employer]? BROOM WORKER emailed admitting change group to look into pt's ins status further P: anticipate dc home tomorrow with OP f/u (OP PCP Appt 06/11) will continue to follow as needed for DCP coordination VISHNU Thacker
--- NOTE | 2025-06-09 16:43 | P.PN_ITS ---
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 He presents again today with nausea, vomiting and abdominal pain. CT scan suggested intussusception so he has had a laparoscopic exploratory surgery today that showed no small bowel abnormalities. The appendix was thickened but not inflamed. An appendectomy was done. Now that intussusception has been ruled out this appears to be a sickle cell pain crisis again. At the time of his last discharge in March the hydroxyurea dose was increased: (Recommend gradual outpatient up-titration of hydroxyurea over several weeks to maximum tolerated dose, which could be up to 35 milligrams/kilogram daily (up to 2200 mg daily), with attention to CBC to maintain ANC of 1500 to 3000/microL, absolute reticulocyte count (ARC) of 80,000 to 100,000/microL (the absolute reticulocyte count is calculated as the percent reticulocytes x RBC count (x?106/microL) x 10), and a platelet count of 80,000 to 150,000/microL.) 06/08: He says he is doing remarkably well today. The abdominal pain is improving. The hemoglobin has dropped from 9.9 down to 6.8 consistent with a sickle cell crisis. He will be receiving 1 unit of packed red blood cells today. The BNP today is normal and the white blood count is 16.5. 06/09/2025: The patient is considerably improved but is still having abdominal pain so we will be continued on sickle cell opioid IV therapy for this crisis. It turns out that he was unable to get the 400 mg of hydroxyurea feel that his pharmacy so had not been on hydroxyurea for a month before this crisis. With some research by the pharmacy we found that the 400 mg dose is a brand dose that is not generic and not carried locally. Based on the above calculations we will be putting him on 500 mg instead. The CBC today shows a hemoglobin dropping from 8.5 down to 7.8 with 3+ sickle cells seen. Assessment and plan: Abdominal pain/sickle cell pain crisis, present on admission. Active. -exploratory laparotomy on day of admission ruled out the intussusception suspected on CT scan. Prophylactic appendectomy was done. -initial lactic acid 3.8, down to 1.3 with IV fluid preoperatively. -initial white blood count 15.4, preoperative metronidazole and ciprofloxacin were given in the ED. -continue pain control with IV hydromorphone per General surgery. Also on duloxetine. -regular diet. IV fluid if needed. 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 Active. -admission hemoglobin 9.9 is in his usual 9-10 range. -received 1 unit packed red blood cells with hemoglobin up from 6.8 to 7.8 on 06/09. -continue outpatient up titration of hydroxyurea per goal of 35 milligrams/kilogram daily. Acute kidney injury, present on admission. Active. -baseline creatinine 0.58, presenting at 3.16, down to 2.7 with several L of IV fluid. -encourage oral fluid intake and recheck in the morning Disposition: Home on 06/10. Will be on Hydroxyurea 500 mg daily. Exam Vital Signs (past 8 hours): - 06/09/25 10:11 Respiratory Rate 20 Oxygen Delivery Method Room Air Oxygen Flow Rate 0 Narrative Exam Narrative: Alert and oriented x3. No apparent distress. Lungs are clear to auscultation bilaterally. Heart is regular rate and rhythm without murmur. Extremities have no ankle edema. Abdomen is diffusely mildly tender. Objective Labs 06/09/25 06:48 06/08/25 06:00 Labs: Laboratory Results - last 24 hr 06/08/25 06/09/25 17:30 06:48 WBC 18.2 H RBC 3.06 L Hgb 8.5 L 7.8 L Hct 25.3 L 23.6 L MCV 77.1 L MCH 25.6 L MCHC 33.3 RDW 20.3 H Plt Count 347 Neut % (Auto) Not Reportable Lymph % (Auto) Not Reportable [place] % (Auto) Not Reportable Eos % (Auto) Not Reportable Baso % (Auto) Not Reportable Lymph # (Auto) Not Reportable [place] # (Auto) Not Reportable Baso # (Auto) Not Reportable Total Counted 100 Seg Neutrophils % 48.0 Lymphocytes % (Manual) 41.0 Monocytes % (Manual) 11.0 Neutrophils # (Manual) 8736 H RBC Morphology Not Reportable Sickle Cells 2+ H [facility] Medical History History of CVA (cerebrovascular accident) Vitamin D deficiency PTSD (post-traumatic stress disorder) Depression Anxiety Seizure Anemia Avascular necrosis of bone Contracture, left elbow Contracture, left hand CVA (cerebral vascular accident) Sickle cell anemia Surgical History History of shoulder surgery 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 Family History Father Cancer Sickle cell trait Lupus Mother Sickle cell trait Brother Sickle cell trait Social History household members: significant other Smoking Status: Current some day smoker alcohol intake: current Assessment & Plan Time-Based Coding :: [TOTAL MINUTES] spent with patient and on the chart (including review of chart, obtaining history, exam, reviewing outside data, placing orders, documenting exam and treatment plan, and counseling patient) on [DATE]. Quality VTE Deep Vein Thrombosis/Pulmonary Embolism Present on Admission: No
[2025-06-09 19:00] VITALS: BP 112/71; PULSE 65; RESP 20; TEMP 36.9; O2SAT 96
[2025-06-10 07:02] LABS: Add Manual Diff / Slide Review NO; Hematocrit 26.7 % (41-53); Hemoglobin 9.1 g/dL (13.5-17.5); Lymphocytes Absolute Auto 4500 /uL (1100-4500); Mean Corpuscular HGB Conc 34.0 % (30-36); Mean Corpuscular Hemoglobin 26.1 PG (26-34); Mean Corpuscular Volume 76.9 fL (80-100); Platelet Count 425 X10^3/uL (150-400)
[2025-06-10 07:11] LABS: Blood Urea Nitrogen 6 mg/dL (9-20); Calcium 8.5 mg/dL (8.4-10.2); Carbon Dioxide 23 mmol/L (22-32); Chloride 104 mmol/L (98-107); Estimated Glomerular Filt Rate > 60 mL/min (>60); Glucose 91 mg/dL (70-99); HEMOLYSIS < 15 (0-50); Potassium 4.0 mmol/L (3.4-5.1); Sodium 136 mmol/L (137-145)
--- NOTE | 2025-06-10 08:17 | P.PN_ITS ---
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 He presents again today with nausea, vomiting and abdominal pain. CT scan suggested intussusception so he has had a laparoscopic exploratory surgery today that showed no small bowel abnormalities. The appendix was thickened but not inflamed. An appendectomy was done. Now that intussusception has been ruled out this appears to be a sickle cell pain crisis again. At the time of his last discharge in March the hydroxyurea dose was increased: (Recommend gradual outpatient up-titration of hydroxyurea over several weeks to maximum tolerated dose, which could be up to 35 milligrams/kilogram daily (up to 2200 mg daily), with attention to CBC to maintain ANC of 1500 to 3000/microL, absolute reticulocyte count (ARC) of 80,000 to 100,000/microL (the absolute reticulocyte count is calculated as the percent reticulocytes x RBC count (x?106/microL) x 10), and a platelet count of 80,000 to 150,000/microL.) 06/08: He says he is doing remarkably well today. The abdominal pain is improving. The hemoglobin has dropped from 9.9 down to 6.8 consistent with a sickle cell crisis. He will be receiving 1 unit of packed red blood cells today. The BNP today is normal and the white blood count is 16.5. 06/09/2025: The patient is considerably improved but is still having abdominal pain so we will be continued on sickle cell opioid IV therapy for this crisis. It turns out that he was unable to get the 400 mg of hydroxyurea feel that his pharmacy so had not been on hydroxyurea for a month before this crisis. With some research by the pharmacy we found that the 400 mg dose is a brand dose that is not generic and not carried locally. Based on the above calculations we will be putting him on 500 mg instead. The CBC today shows a hemoglobin dropping from 8.5 down to 7.8 with 3+ sickle cells seen. Assessment and plan: Abdominal pain/sickle cell pain crisis, present on admission. Active. -exploratory laparotomy on day of admission ruled out the intussusception suspected on CT scan. Prophylactic appendectomy was done. -initial lactic acid 3.8, down to 1.3 with IV fluid preoperatively. -initial white blood count 15.4, preoperative metronidazole and ciprofloxacin were given in the ED. -continue pain control with IV hydromorphone per General surgery. Also on duloxetine. -regular diet. IV fluid if needed. 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 Active. -admission hemoglobin 9.9 is in his usual 9-10 range. -received 1 unit packed red blood cells with hemoglobin up from 6.8 to 7.8 on 06/09. -continue outpatient up titration of hydroxyurea per goal of 35 milligrams/kilogram daily. Acute kidney injury, present on admission. Active. -baseline creatinine 0.58, presenting at 3.16, down to 2.7 with several L of IV fluid. -encourage oral fluid intake and recheck in the morning Disposition: Home on 06/10. Will be on Hydroxyurea 500 mg daily. Exam Vital Signs (past 8 hours): Oxygen Delivery Method Room Air Oxygen Flow Rate 0 Objective Labs 06/10/25 06:50 06/10/25 06:50 Labs: Laboratory Results - last 24 hr 06/10/25 06:50 WBC 12.4 H RBC 3.47 L Hgb 9.1 L Hct 26.7 L MCV 76.9 L MCH 26.1 MCHC 34.0 RDW 20.2 H Plt Count 425 H Neut % (Auto) 48.1 L Lymph % (Auto) 36.3 [place] % (Auto) 13.9 Eos % (Auto) 0.6 L Baso % (Auto) 1.1 Neut # (Auto) 6000 Lymph # (Auto) 4500 [place] # (Auto) 1700 H Eos # (Auto) 100 Baso # (Auto) 100 Sodium 136 L Potassium 4.0 Chloride 104 Carbon Dioxide 23 BUN 6 L Creatinine 0.54 L Estimated GFR > 60 BUN/Creatinine Ratio 11.1 Glucose 91 Calcium 8.5 [facility] Medical History History of CVA (cerebrovascular accident) Vitamin D deficiency PTSD (post-traumatic stress disorder) Depression Anxiety Seizure Anemia Avascular necrosis of bone Contracture, left elbow Contracture, left hand CVA (cerebral vascular accident) Sickle cell anemia Surgical History History of shoulder surgery 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 Family History Father Cancer Sickle cell trait Lupus Mother Sickle cell trait Brother Sickle cell trait Social History household members: significant other Smoking Status: Current some day smoker alcohol intake: current Assessment & Plan Time-Based Coding :: [TOTAL MINUTES] spent with patient and on the chart (including review of chart, obtaining history, exam, reviewing outside data, placing orders, documenting exam and treatment plan, and counseling patient) on [DATE]. Quality VTE Deep Vein Thrombosis/Pulmonary Embolism Present on Admission: No
--- NOTE | 2025-06-10 08:17 | PM.DS.1 ---
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 He presents again today with nausea, vomiting and abdominal pain. CT scan suggested intussusception so he has had a laparoscopic exploratory surgery today that showed no small bowel abnormalities. The appendix was thickened but not inflamed. An appendectomy was done. Now that intussusception has been ruled out this appears to be a sickle cell pain crisis again. At the time of his last discharge in March the hydroxyurea dose was increased: (Recommend gradual outpatient up-titration of hydroxyurea over several weeks to maximum tolerated dose, which could be up to 35 milligrams/kilogram daily (up to 2200 mg daily), with attention to CBC to maintain ANC of 1500 to 3000/microL, absolute reticulocyte count (ARC) of 80,000 to 100,000/microL (the absolute reticulocyte count is calculated as the percent reticulocytes x RBC count (x?106/microL) x 10), and a platelet count of 80,000 to 150,000/microL.) Discharge Providers Provider Date of admission: 06/07/25 11:44 Discharge Date: 06/10/25 Primary care physician: Jen Albarran [facility] Discharge provider: Pili Albert MD Summary Hospital Course Hospital Course: This is a 24-year-old male with sickle cell disease, childhood stroke with left-sided hemiparesis and left upper arm contracture, 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 He presents again today with nausea, vomiting and abdominal pain. CT scan suggested intussusception so he has had a laparoscopic exploratory surgery today that showed no small bowel abnormalities. The appendix was thickened but not inflamed. An appendectomy was done. Now that intussusception has been ruled out this appears to be a sickle cell pain crisis again. At the time of his last discharge in March the hydroxyurea dose was increased: (Recommend gradual outpatient up-titration of hydroxyurea over several weeks to maximum tolerated dose, which could be up to 35 milligrams/kilogram daily (up to 2200 mg daily), with attention to CBC to maintain ANC of 1500 to 3000/microL, absolute reticulocyte count (ARC) of 80,000 to 100,000/microL (the absolute reticulocyte count is calculated as the percent reticulocytes x RBC count (x?106/microL) x 10), and a platelet count of 80,000 to 150,000/microL.) 06/08: He says he is doing remarkably well today. The abdominal pain is improving. The hemoglobin has dropped from 9.9 down to 6.8 consistent with a sickle cell crisis. He will be receiving 1 unit of packed red blood cells today. The BNP today is normal and the white blood count is 16.5. 06/09/2025: The patient is considerably improved but is still having abdominal pain so we will be continued on sickle cell opioid IV therapy for this crisis. It turns out that he was unable to get the 400 mg of hydroxyurea feel that his pharmacy so had not been on hydroxyurea for a month before this crisis. With some research by the pharmacy we found that the 400 mg dose is a brand dose that is not generic and not carried locally. Based on the above calculations we will be putting him on 500 mg instead. The CBC today shows a hemoglobin dropping from 8.5 down to 7.8 with 3+ sickle cells seen. 06/10/25: His abdomen today is ?just sore?. He requests a few pain pills at home and he agrees to pickle pumper the hydroxyurea today. A steady up titration in the dose is recommended for his PCP to manage over the next few months. The goal is to decrease the amount of pain crises that he experiences with the precautions as stated above. The hemoglobin today is up from 7.8 to 9.1. Hospital course summary: Abdominal pain/sickle cell pain crisis -exploratory laparotomy on day of admission ruled out the intussusception suspected on CT scan. Prophylactic appendectomy was done. -initial lactic acid 3.8, down to 1.3 with IV fluid preoperatively. -initial white blood count 15.4, preoperative metronidazole and ciprofloxacin were given in the ED. -Pain control with IV hydromorphone. . Also on duloxetine. -regular diet. IV fluid stopped. 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 Final hemoglobin 9.1. -received 1 unit packed red blood cells with hemoglobin up from 6.8 to 7.8 on 06/09. -continue outpatient up titration of hydroxyurea per goal of 35 milligrams/kilogram daily. -currently discharging on 500 mg daily with quite a bit of upside room to continue titrating. Monitor every 2-4 weeks CBC, ANC, retic count. Acute kidney injury -baseline creatinine 0.58, presenting at 3.16, down to 2.7 with several L of IV fluid. -resolved Status at Discharge Cognitive/behavioral status at discharge: at baseline, oriented Functional status at discharge: independent ambulation Overall status at discharge: patient is progressing back to baseline Time Spent with Patient Time spent: Less than 30 minutes Exam Vital Signs (past 8 hours): Oxygen Delivery Method Room Air Oxygen Flow Rate 0 Narrative Exam Narrative: Alert and oriented x3. No apparent distress. He says his abdomen is now ?just sore?. Heart is regular rate and rhythm without murmur. Lungs are clear to auscultation bilaterally. Abdomen is scaphoid, nontender. Extremities no ankle edema. Left upper extremity contractures are stable. Objective Labs 06/10/25 06:50 06/10/25 06:50 Labs: Laboratory Results - last 24 hr 06/10/25 06:50 WBC 12.4 H RBC 3.47 L Hgb 9.1 L Hct 26.7 L MCV 76.9 L MCH 26.1 MCHC 34.0 RDW 20.2 H Plt Count 425 H Neut % (Auto) 48.1 L Lymph % (Auto) 36.3 [place] % (Auto) 13.9 Eos % (Auto) 0.6 L Baso % (Auto) 1.1 Neut # (Auto) 6000 Lymph # (Auto) 4500 [place] # (Auto) 1700 H Eos # (Auto) 100 Baso # (Auto) 100 Sodium 136 L Potassium 4.0 Chloride 104 Carbon Dioxide 23 BUN 6 L Creatinine 0.54 L Estimated GFR > 60 BUN/Creatinine Ratio 11.1 Glucose 91 Calcium 8.5 PFSH Medical History History of CVA (cerebrovascular accident) Vitamin D deficiency PTSD (post-traumatic stress disorder) Depression Anxiety Seizure Anemia Avascular necrosis of bone Contracture, left elbow Contracture, left hand CVA (cerebral vascular accident) Sickle cell anemia Surgical History History of shoulder surgery 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 Family History Father Cancer Sickle cell trait Lupus Mother Sickle cell trait Brother Sickle cell trait Social History household members: significant other Smoking Status: Current some day smoker alcohol intake: current Discharge Plan Discharge Plan Patient Disposition: Home Provider Discharge Comment: Follow up with your PCP GERBER Albarran in 1 week. Discharge orders & Medications Prescriptions: New hydroxyurea 500 mg capsule 500 mg PO DAILY Qty: 30 0RF oxycodone 5 mg Tablet 5 mg PO Q3H PRN (Reason: Pain, Moderate (4-6)) Qty: 15 0RF Continued cholecalciferol (vitamin D3) 10 mcg (400 unit) capsule 20 mcg PO DAILY Qty: 180 0RF Rx Instructions: Start two capsules daily after 6 weeks of 1250mcg weekly dosing. duloxetine 60 mg capsule,delayed release(DR/EC) 60 mg PO DAILY Qty: 90 2RF albuterol sulfate 90 mcg/actuation HFA aerosol inhaler 2 puff inhalation Q6H PRN (Reason: wheezing) methocarbamol 750 mg tablet 750 mg PO Q8H PRN (Reason: muscle spasm) Qty: 20 0RF lidocaine 5 % adhesive patch,medicated 1 patch topical DAILY PRN (Reason: pain (scale score 1-3)) Qty: 30 0RF Rx Instructions: leave on most painful area for up to 12 hrs Discontinued oxycodone 5 mg tablet 5 mg PO Q6H PRN (Reason: pain, moderate, pain mild, pain, severe) hydroxyurea (sickle cell) 400 mg capsule 400 mg PO DAILY Qty: 90 3RF Follow up/Referrals: Jen Albarran FNP-BC [Primary Care Provider, Family Practice] Visit Report/Discharge Packet Stand Alone Forms: Patient Portal/API, Stroke Signs & Symptoms Discharge Data Primary Care Provider: Jen Albarran VTE Deep Vein Thrombosis/Pulmonary Embolism Present on Admission: No
--- NOTE | 2025-06-10 09:41 | CM.DPNOTE ---
DCP note [employer] reviewed EMR per chart, anticipate dc home today with new med dosing. PCP f/u tomorrow. no new CM needs at this time. anticipate home today. will continue to follow as needed in case any DCP needs should arise VISHNU Thacker
[2025-06-10 10:00] VITALS: BP 115/65; PULSE 59; RESP 16; TEMP 36.4; O2SAT 99
--- NOTE | 2025-06-10 13:09 | PC.NURSE ---
Pt discharged home at 1245, ambulated off floor accompanied by friend and hospital staff. IV removed, discharge teaching completed including new medications and follow up appointments. Patient left the floor with all belongings.
== END 2025-06-10 12:45 | disposition home or self-care (01) | DRG 982 ==
LOC: ED 11:44 → AC 11:44
PROVIDERS: Emergency Medicine; Admitting Provider Family Medicine; Emergency Provider Emergency Medicine; PCP Nurse Practitioner Family; Referring Provider Surgery; Visit Provider Family Medicine
PROC: 0DTJ4ZZ Resection of Appendix, Percutaneous Endoscopic Approach (ICD-10-PCS; CPT 49000; principal; 2025-06-07 12:45)
DX: D57.00 Hb-SS disease with crisis, unspecified (principal); I69.354 Hemiplegia and hemiparesis following cerebral infarction affecting left non-dominant side; N17.9 Acute kidney failure, unspecified; F17.200 Nicotine dependence, unspecified, uncomplicated; K38.8 Other specified diseases of appendix; R11.2 Nausea with vomiting, unspecified; D63.8 Anemia in other chronic diseases classified elsewhere; F32.A Depression, unspecified; M24.522 Contracture, left elbow; M24.542 Contracture, left hand; Z90.81 Acquired absence of spleen
CPT/HCPCS: 36415; 36430; 47562; 74176; 80048; 80053; 83605; 83690; 85007; 85014; 85018; 85025; 85045; 86850; 86900; 86901; 87040; 96361; 96366; 96374; 96375; 99222; 99284; 99285; P9016; J0330; J0744; J1100; J1171; J1650; J2250; J2405; J2470; J2704; J3010; J3490; J7030

== ENCOUNTER 2025-06-17 11:22 | Emergency (ER) | payer SELFPAY ==
[2025-06-07 14:47] VITALS: BMI 18.6
[2025-06-17] VITALS (7 sets, daily range): BP systolic 113; BP diastolic 61; PULSE 97–118; RESP 20; TEMP 37.2; O2SAT 97–100; BMI 19.1
--- NOTE | 2025-06-17 11:33 | DI.RAD.S_ITS ---
PROCEDURE: XR CHEST 2V
--- NOTE | 2025-06-17 12:16 | ED_ITS ---
HPI - URI/Sore Throat
--- NOTE | 2025-06-17 12:16 | ED.URI ---
HPI - URI/Sore Throat <Ladi Dowell PA-C - Last Filed: 06/17/25 17:43> General Chief Complaint: Upper Respiratory Symptoms Stated Complaint: temp and fever 2 days Time Seen by Provider: 06/17/25 11:28 Source: patient Mode of arrival: Ambulatory History of Present Illness HPI Narrative: 24-year-old male with known sickle cell anemia presents to the ED with 2 days of sore throat, cough, headache. Endorses fever T-max 100.8?F. Endorses 8/10 headache. No nausea, vomiting, chest pain, shortness of breath, lightheadedness, dizziness, syncope. Related Data Home Medications ?Medication ?Instructions ?Recorded ?Confirmed albuterol sulfate 90 mcg/actuation 2 puff inhalation Q6H PRN wheezing 11/18/24 06/17/25 aerosol inhaler Previous Rx's ?Medication ?Instructions ?Recorded cholecalciferol (vitamin D3) 10 20 mcg (2 x 10 mcg (400 unit)) PO 10/25/24 mcg (400 unit) capsule DAILY #180 caps duloxetine 60 mg capsule,delayed 60 mg PO DAILY #90 caps 05/01/25 release lidocaine 5 % topical patch 1 patch topical DAILY PRN pain 05/30/25 (scale score 1-3) #30 ea methocarbamol 750 mg tablet 750 mg PO Q8H PRN muscle spasm #20 05/30/25 tabs hydroxyurea 500 mg capsule 500 mg PO DAILY #30 caps 06/09/25 oxycodone 5 mg tablet 5 mg PO Q3H PRN Pain, Moderate 06/10/25 (4-6) #15 tabs benzonatate 200 mg capsule 200 mg PO TID PRN cough #30 caps 06/17/25 benzonatate 200 mg capsule 200 mg PO TID PRN cough #30 caps 06/17/25 guaifenesin 1,200 mg tablet, 1,200 mg PO Q12H #30 tabs 06/17/25 extended release 12 hr Allergies Allergy/AdvReac Type Severity Reaction Status Date / Time No Known Drug Allergies Allergy Verified 06/17/25 11:31 Review of Systems <Ladi Dowell PA-C - Last Filed: 06/17/25 17:43> Constitutional Constitutional: Denies chills, Reports fatigue, Reports fever(s), Denies frequent falls, Reports headache(s), Denies lethargy and Denies weakness Eyes Eyes: Denies change in vision, Denies eye discharge, Denies irritation and Denies loss of vision ENT Ears, Nose, Mouth, and Throat: Denies change in voice, Denies dizziness, Reports headache(s), Reports nasal discharge, Denies neck pain, Denies sore throat and Denies throat swelling Cardiovascular Cardiovascular: Denies chest pain, Denies irregular heart rhythm, Denies lightheadedness, Denies palpitations, Denies dyspnea, Denies dyspnea on exertion and Denies orthopnea Respiratory Respiratory: Reports cough, Denies dyspnea, Denies dyspnea on exertion and Denies wheezing Gastrointestinal Gastrointestinal: Denies abdominal pain, Denies change in bowel habits, Denies diarrhea, Denies nausea and Denies vomiting Musculoskeletal Musculoskeletal: Denies neck pain and Denies numbness Integumentary/Breasts Skin/Breast: Denies pruritus, Denies erythema, Denies rash and Denies wounds Neurologic Neurologic: Denies behavioral changes, Denies confusion, Denies dizziness, Denies frequent falls, Reports headache(s), Denies loss of vision, Denies numbness and Denies weakness Psychiatric Psychiatric: Denies anxiety, Denies behavioral changes, Denies confusion, Denies depression, Denies homicidal ideation and Denies suicidal ideation Endocrine Endocrine: Reports fatigue, Denies flushing and Denies palpitations Hematologic/Lymphatic Hematologic/Lymphatic: Denies easy bruising Allergic/Immunologic Allergic/Immunologic: Denies urticaria, Denies throat swelling and Denies wheezing Patient History <Ladi Dowell PA-C - Last Filed: 06/17/25 17:43> Medical History History of CVA (cerebrovascular accident) Vitamin D deficiency PTSD (post-traumatic stress disorder) Depression Anxiety Seizure Anemia Avascular necrosis of bone Contracture, left elbow Contracture, left hand CVA (cerebral vascular accident) Sickle cell anemia Surgical History History of shoulder surgery 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 Family History Father Cancer Sickle cell trait Lupus Mother Sickle cell trait Brother Sickle cell trait Social History household members: significant other alcohol intake: current tobacco type: vaping alcohol intake frequency: holidays/special occasions only Exam <Ladi Dowell PA-C - Last Filed: 06/17/25 17:43> Narrative Exam Narrative: Const General:?cooperative, healthy appearing and comfortable HENPA Head:?normal to inspection Ears:?hearing grossly normal bilaterally Nose:?external nose normal Face and sinus:?normal facial exam and sinuses nontender Mouth:?oral mucosae normal Throat:?posterior oropharynx normal Eyes General:?appearance normal, both eyes and all related structures Neck Neck:?normal visual inspection and no lymphadenopathy noted Resp Effort & Inspection:?normal respiratory effort Auscultation:?clear to auscultation bilaterally Cardio Rate:?regular rate Rhythm:?regular rhythm Neuro General:?patient alert, patient awake and patient oriented x3; PERRLA; CN 2 through 12 intact bilaterally; gait is normal; neurologically intact Initial Vital Signs Initial Vital Signs: Vital Signs Pulse Rate 118 H 06/17/25 11:28 Blood Pressure 113/61 06/17/25 11:28 <Beverley Kumar DO - Last Filed: 06/18/25 18:31> Initial Vital Signs Initial Vital Signs: Vital Signs Pulse Rate 118 H 06/17/25 11:28 Blood Pressure 113/61 06/17/25 11:28 Course <Ladi Dowell PA-C - Last Filed: 06/17/25 17:43> Orders Ordered: Discontinued Medications Acetaminophen (Acetaminophen 325 Mg Tablet) 975 mg PO NOW ONE Stop: 06/17/25 13:18 Last Admin: 06/17/25 13:54 Dose: 975 mg Documented By: GABRIELLE Ketorolac Tromethamine (Ketorolac 30 Mg/Ml Vial) 30 mg IM NOW ONE Stop: 06/17/25 12:21 Last Admin: 06/17/25 12:30 Dose: 30 mg Documented By: EB Vital Signs Vital signs: Vital Signs - 8 hr 06/17/25 11:28 06/17/25 11:28 06/17/25 11:30 Temperature Pulse Rate 118 H 104 H Respiratory Rate Blood Pressure 113/61 Pulse Oximetry 97 Oxygen Delivery Method 06/17/25 11:31 06/17/25 12:00 06/17/25 12:30 Temperature 98.9 F Pulse Rate 101 H 103 H 106 H Respiratory Rate 20 Blood Pressure 113/61 Pulse Oximetry 97 99 100 Oxygen Delivery Method Room Air 06/17/25 13:00 06/17/25 13:30 Temperature Pulse Rate 103 H 97 H Respiratory Rate Blood Pressure Pulse Oximetry 99 98 Oxygen Delivery Method <Beverley Kumar DO - Last Filed: 06/18/25 18:31> Orders Ordered: Discontinued Medications Acetaminophen (Acetaminophen 325 Mg Tablet) 975 mg PO NOW ONE Stop: 06/17/25 13:18 Last Admin: 06/17/25 13:54 Dose: 975 mg Documented By: EB Ketorolac Tromethamine (Ketorolac 30 Mg/Ml Vial) 30 mg IM NOW ONE Stop: 06/17/25 12:21 Last Admin: 06/17/25 12:30 Dose: 30 mg Documented By: EB Vital Signs Vital signs: Vital Signs - 8 hr 06/17/25 11:28 06/17/25 11:28 06/17/25 11:30 Temperature Pulse Rate 118 H 104 H Respiratory Rate Blood Pressure 113/61 Pulse Oximetry 97 Oxygen Delivery Method 06/17/25 11:31 06/17/25 12:00 06/17/25 12:30 Temperature 98.9 F Pulse Rate 101 H 103 H 106 H Respiratory Rate 20 Blood Pressure 113/61 Pulse Oximetry 97 99 100 Oxygen Delivery Method Room Air 06/17/25 13:00 06/17/25 13:30 Temperature Pulse Rate 103 H 97 H Respiratory Rate Blood Pressure Pulse Oximetry 99 98 Oxygen Delivery Method MDM - URI/Sore Throat <Ladi Dowell PA-C - Last Filed: 06/17/25 17:43> Lab Data Labs: Lab Results 06/17/25 Range/Units 11:35 SARS-CoV-2 (PCR) Negative (Negative) Influenza A (RT-PCR) Flu a negative (NEGATIVE) Influenza B (RT-PCR) Flu b negative (NEGATIVE) RSV (PCR) Negative (Negative) MDM Narrative Medical decision making narrative: 24-year-old male with known sickle cell anemia presents to the ED with 2 days of sore throat, cough, headache. Presentation is most consistent with a viral URI and a primary headache. Will obtain a respiratory panel, chest x-ray. Will give Toradol for pain. Chest x-ray with no acute cardiopulmonary abnormalities. Respiratory panel negative for COVID-19, influenza, RSV. Patient's headache improved to a 2/10 with Toradol. Patient was also given Tylenol. Prescribed Tessalon Perles for cough. Discussed supportive care for viral URI with patient. Recommend follow-up with PCP as soon as possible. ED return precautions discussed with patient. Patient verbalized understanding. Medical records reviewed: Yes <Beverley Kumar, - Last Filed: 06/18/25 18:31> Lab Data Labs: Lab Results 06/17/25 Range/Units 11:35 SARS-CoV-2 (PCR) Negative (Negative) Influenza A (RT-PCR) Flu a negative (NEGATIVE) Influenza B (RT-PCR) Flu b negative (NEGATIVE) RSV (PCR) Negative (Negative) Discharge Plan Departure Patient Disposition: Home Clinical Impression: Upper respiratory infection Qualifiers: URI type: unspecified viral URI Qualified Code(s): J06.9 - Acute upper respiratory infection, unspecified Instructions: DI for Viral Upper Respiratory Infection -- Adult Activity Restrictions/Additional Instructions: You were evaluated in the emergency department today for a fever, cough, cold and a headache. Your symptoms improved with Toradol and Tylenol. Your chest x-ray was normal. The respiratory swab was negative for COVID-19, influenza, RSV. Prescriptions: New benzonatate 200 mg capsule 200 mg PO TID PRN (Reason: cough) Qty: 30 0RF No Action benzonatate 200 mg capsule 200 mg PO TID PRN (Reason: cough) Qty: 30 0RF guaifenesin 1,200 mg tablet extended release 12hr 1,200 mg PO Q12H Qty: 30 0RF cholecalciferol (vitamin D3) 10 mcg (400 unit) capsule 20 mcg PO DAILY Qty: 180 0RF Rx Instructions: Start two capsules daily after 6 weeks of 1250mcg weekly dosing. duloxetine 60 mg capsule,delayed release(DR/EC) 60 mg PO DAILY Qty: 90 2RF albuterol sulfate 90 mcg/actuation HFA aerosol inhaler 2 puff inhalation Q6H PRN (Reason: wheezing) hydroxyurea 500 mg capsule 500 mg PO DAILY Qty: 30 0RF oxycodone 5 mg Tablet 5 mg PO Q3H PRN (Reason: Pain, Moderate (4-6)) Qty: 15 0RF methocarbamol 750 mg tablet 750 mg PO Q8H PRN (Reason: muscle spasm) Qty: 20 0RF lidocaine 5 % adhesive patch,medicated 1 patch topical DAILY PRN (Reason: pain (scale score 1-3)) Qty: 30 0RF Rx Instructions: leave on most painful area for up to 12 hrs Referrals: Jen Albarran, UND[employer]WR[employer]ING SUPPORT SPECIALIST-BC [Primary Care Provider, Family Practice] Stand Alone Forms: Patient Portal/API ED Sign-out <Beverley Kumar DO - Last Filed: 06/18/25 18:31> Cosign ED Attending Cosignature Attestation: I was immediately available in the department for consultation.
[2025-06-17 12:20] LABS: Influenza A - CEPHEID Flu A NEGATIVE (NEGATIVE); Influenza B - CEPHEID Flu B NEGATIVE (NEGATIVE)
[2025-06-17 12:21] LABS: COVID-19 CEPHEID 4-PLEX PCR Negative (Negative)
[2025-06-17] MEDS: KETOROLAC 30 MG/ML VIAL IM (12:30)
[2025-06-17] MEDS: ACETAMINOPHEN 325 MG TABLET 975 MG PO (13:54)
== END 2025-06-17 13:59 | disposition home or self-care (01) ==
PROVIDERS: Emergency Provider Student in an Organized Health Care Education/Training Program; PCP Nurse Practitioner Family
DX: J06.9 Acute upper respiratory infection, unspecified (principal); D57.1 Sickle-cell disease without crisis
CPT/HCPCS: 71046; 87637; 96372; 99283; J1885

== ENCOUNTER 2025-07-12 07:22 | Emergency (ER) | payer SELFPAY ==
[2025-06-07 14:47] VITALS: BMI 18.6
[2025-07-12] VITALS (9 sets, daily range): BP systolic 80–117; BP diastolic 56–71; PULSE 59–83; RESP 16; TEMP 36.9; O2SAT 92–99; BMI 18.8
--- NOTE | 2025-07-12 07:33 | ED.BACK ---
HPI - Back Pain/Injury General Chief Complaint: Back Pain/Injury Stated Complaint: sickle cell crisis Time Seen by Provider: 07/12/25 07:29 History of Present Illness HPI Narrative: 24-year-old gentleman history of sickle cell anemia with childhood stroke with left-sided deficits presents with low back pain across the back radiating across to the right leg for which is similar in presentation for his this sickle cell pain crisis. He did see a civil rights investigator recently in [place] who gave him oxycodone 5 mg which initially did help he is now having breakthrough pain. Denies any fever, chills, chest pain, shortness of breath, dyspnea on exertion, rash, nausea, vomiting, diarrhea, abdominal pain. Other than what is stated 14 point review of system is negative. Related Data Home Medications ?Medication ?Instructions ?Recorded ?Confirmed albuterol sulfate 90 mcg/actuation 2 puff inhalation Q6H PRN wheezing 11/18/24 06/17/25 aerosol inhaler Previous Rx's ?Medication ?Instructions ?Recorded cholecalciferol (vitamin D3) 10 20 mcg (2 x 10 mcg (400 unit)) PO 10/25/24 mcg (400 unit) capsule DAILY #180 caps duloxetine 60 mg capsule,delayed 60 mg PO DAILY #90 caps 05/01/25 release lidocaine 5 % topical patch 1 patch topical DAILY PRN pain 05/30/25 (scale score 1-3) #30 ea methocarbamol 750 mg tablet 750 mg PO Q8H PRN muscle spasm #20 05/30/25 tabs hydroxyurea 500 mg capsule 500 mg PO DAILY #30 caps 06/09/25 oxycodone 5 mg tablet 5 mg PO Q3H PRN Pain, Moderate 06/10/25 (4-6) #15 tabs benzonatate 200 mg capsule 200 mg PO TID PRN cough #30 caps 06/17/25 benzonatate 200 mg capsule 200 mg PO TID PRN cough #30 caps 06/17/25 guaifenesin 1,200 mg tablet, 1,200 mg PO Q12H #30 tabs 06/17/25 extended release 12 hr Allergies Allergy/AdvReac Type Severity Reaction Status Date / Time No Known Drug Allergies Allergy Verified 07/12/25 07:32 Review of Systems Review of Systems ROS Unobtainable: All systems reviewed & are unremarkable except as noted in HPI and below Patient History Medical History History of CVA (cerebrovascular accident) Vitamin D deficiency PTSD (post-traumatic stress disorder) Depression Anxiety Seizure Anemia Avascular necrosis of bone Contracture, left elbow Contracture, left hand CVA (cerebral vascular accident) Sickle cell anemia Surgical History History of shoulder surgery 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 Family History Father Cancer Sickle cell trait Lupus Mother Sickle cell trait Brother Sickle cell trait Social History household members: significant other Smoking Status: Former smoker alcohol intake: current tobacco type: vaping alcohol intake frequency: holidays/special occasions only Exam Narrative Exam Narrative: GENERAL: [24] year old patient appears stated age. Well-developed patient, in mild distress. HEAD: Atraumatic. Normocephalic. EYES: Pupils equal round and reactive. Extraocular motions intact. No scleral icterus. No injection or drainage. ENT: Nose without bleeding, purulent drainage. Throat without erythema, tonsillar hypertrophy or exudate. Airway patent. NECK: Trachea midline. Non tender CARDIOVASCULAR: Regular rate and rhythm without murmurs, gallops, or rubs. RESPIRATORY: Clear to auscultation. Breath sounds equal bilaterally. No wheezes, rales, or rhonchi. GASTROINTESTINAL: Abdomen soft, non-tender, nondistended. EXTREMITIES: No edema or joint tenderness. BACK: Nontender without deformity or crepitance. No flank tenderness. NEURO: AOx3. Left wrist hyperflexed chronic SKIN: No rash or erythema of visible areas Initial Vital Signs Initial Vital Signs: Vital Signs Temperature 98.4 F 07/12/25 07:32 Pulse Rate 78 07/12/25 07:32 Respiratory Rate 16 07/12/25 07:32 Blood Pressure 113/60 07/12/25 07:32 Pulse Oximetry 99 07/12/25 07:32 Oxygen Delivery Method Room Air 07/12/25 07:32 Course Orders Ordered: ED Orders 07/12/25 07:51 CBC Auto Diff [Complete Blood Count AUTO DIFF] Stat Reticulocyte Count, Percent Stat 07/12/25 08:35 CMP [Comprehensive Metabolic Panel] Stat Discontinued Medications Hydromorphone HCl (Hydromorphone Hcl 0.5 Mg/0.5 Ml Syringe) 0.5 mg IV NOW ONE Stop: 07/12/25 07:38 Last Admin: 07/12/25 07:55 Dose: 0.5 mg Documented By: AKILAH Hydromorphone HCl (Hydromorphone Hcl 0.5 Mg/0.5 Ml Syringe) 0.5 mg IV NOW ONE Stop: 07/12/25 08:26 Last Admin: 07/12/25 08:30 Dose: 0.5 mg Documented By: AKILAH Hydromorphone HCl (Hydromorphone 1 Mg/Ml Syringe) 0.5 mg IV NOW ONE Stop: 07/12/25 09:11 Last Admin: 07/12/25 09:12 Dose: Not Given Documented By: AKILAH Hydromorphone HCl (Hydromorphone Hcl 0.5 Mg/0.5 Ml Syringe) 0.5 mg IV NOW ONE Stop: 07/12/25 09:12 Last Admin: 07/12/25 09:17 Dose: 0.5 mg Documented By: AKILAH Lactated Ringer's (Lactated Ringers) 1,000 mls @ 1,000 mls/hr IV BOLUS ONE Stop: 07/12/25 08:36 Last Infusion: 07/12/25 09:03 Dose: Infused Documented By: Admin: 07/12/25 07:56 Dose: 1,000 mls/hr Documented By: AKILAH Ondansetron HCl (Ondansetron 4 Mg/2 Ml Inj) 4 mg IV NOW ONE Stop: 07/12/25 09:14 Last Admin: 07/12/25 09:17 Dose: 4 mg Documented By: AKILAH Vital Signs Vital signs: Vital Signs - 8 hr 07/12/25 07:32 07/12/25 07:57 07/12/25 07:58 Temperature 98.4 F Pulse Rate 78 72 80 Respiratory Rate 16 Blood Pressure 113/60 Pulse Oximetry 99 95 97 Oxygen Delivery Method Room Air 07/12/25 07:58 07/12/25 07:59 07/12/25 07:59 Temperature Pulse Rate 83 Respiratory Rate Blood Pressure 80/63 L 109/69 Pulse Oximetry 96 Oxygen Delivery Method 07/12/25 08:00 07/12/25 08:00 07/12/25 08:30 Temperature Pulse Rate 74 67 Respiratory Rate Blood Pressure 103/56 L Pulse Oximetry 96 96 Oxygen Delivery Method 07/12/25 08:30 07/12/25 09:00 07/12/25 09:00 Temperature Pulse Rate 68 Respiratory Rate Blood Pressure 106/64 117/68 Pulse Oximetry 96 Oxygen Delivery Method MDM - Back Pain/Injury Lab Data 07/12/25 07:51 07/12/25 08:35 Labs: Lab Results 07/12/25 07/12/25 Range/Units 07:51 08:35 WBC 10.8 (4.5-11.0) X10^3/uL RBC 4.17 L (4.5-5.9) X10^6/uL Hgb 10.6 L (13.5-17.5) g/dL Hct 31.3 L (41-53) % MCV 75.0 L (80-100) fL MCH 25.5 L (26-34) PG MCHC 33.9 (30-36) % RDW 18.8 H (11.6-14.8) % Plt Count 275 (150-400) X10^3/uL Neut % (Auto) Not Reportable Lymph % (Auto) Not Reportable [place] % (Auto) Not Reportable Eos % (Auto) Not Reportable Baso % (Auto) Not Reportable Lymph # (Auto) Not Reportable [place] # (Auto) Not Reportable Baso # (Auto) Not Reportable Total Counted 100 Seg Neutrophils % 45.0 (38-70) % Band Neutrophils % 1.0 L (3-7) % Lymphocytes % (Manual) 45.0 (25-45) % Monocytes % (Manual) 7.0 (2-11) % Eosinophils % (Manual) 2.0 (2-4) % Neutrophils # (Manual) 4968 (1057-4527) /uL RBC Morphology See below Anisocytosis 1+ H Microcytosis 1+ H Sickle Cells 1+ H Target Cells 1+ H Ovalocytes 1+ H Percent Retic 4.5 H (0.9-2.6) % Sodium 139 (137-145) mmol/L Potassium 3.8 (3.4-5.1) mmol/L Chloride 107 (98-107) mmol/L Carbon Dioxide 25 (22-32) mmol/L BUN 7 L (9-20) mg/dL Creatinine 0.62 L (0.66-1.25) mg/dL Estimated GFR > 60 (>60) mL/min BUN/Creatinine Ratio 11.3 (6-22) Glucose 82 (70-99) mg/dL Calcium 8.2 L (8.4-10.2) mg/dL Total Bilirubin 2.9 H (0.2-1.3) mg/dL AST 46 (17-59) IU/L ALT 22 (<50) IU/L Alkaline Phosphatase 71 (38-126) U/L Total Protein 7.2 (6.3-8.2) g/dL Albumin 4.0 (3.5-5.0) g/dL Globulin 3.2 (1.7-4.1) g/dL Albumin/Globulin Ratio 1.3 (1.0-2.8) MDM Narrative Medical decision making narrative: All lab work, vital signs, nurse triage note, medication list, previous ER visits, and all imaging studies reviewed. WBC 10.8 hemoglobin 10.6 platelets 275 % retic 4.5 sodium 139 potassium 3.8 chloride 107 CO2 25 BUN 7 creatinine 0.62. Patient given lactated Ringer's 1 L bolus Dilaudid 0.5 mg x 3 Zofran here. Patient feels much better on reexamination. Differential diagnosis sickle cell disease with crisis Discharge Plan Departure Patient Disposition: Home Clinical Impression: Sickle cell disease with crisis Instructions: DI for Sickle Cell Anemia, Pain Crisis -- Adult Activity Restrictions/Additional Instructions: Return with new or worsening symptoms. Take your medicine for pain as previously prescribed. Follow up with the civil rights investigator at your next scheduled appointment Prescriptions: No Action benzonatate 200 mg capsule 200 mg PO TID PRN (Reason: cough) Qty: 30 0RF guaifenesin 1,200 mg tablet extended release 12hr 1,200 mg PO Q12H Qty: 30 0RF cholecalciferol (vitamin D3) 10 mcg (400 unit) capsule 20 mcg PO DAILY Qty: 180 0RF Rx Instructions: Start two capsules daily after 6 weeks of 1250mcg weekly dosing. duloxetine 60 mg capsule,delayed release(DR/EC) 60 mg PO DAILY Qty: 90 2RF albuterol sulfate 90 mcg/actuation HFA aerosol inhaler 2 puff inhalation Q6H PRN (Reason: wheezing) hydroxyurea 500 mg capsule 500 mg PO DAILY Qty: 30 0RF oxycodone 5 mg Tablet 5 mg PO Q3H PRN (Reason: Pain, Moderate (4-6)) Qty: 15 0RF benzonatate 200 mg capsule 200 mg PO TID PRN (Reason: cough) Qty: 30 0RF methocarbamol 750 mg tablet 750 mg PO Q8H PRN (Reason: muscle spasm) Qty: 20 0RF lidocaine 5 % adhesive patch,medicated 1 patch topical DAILY PRN (Reason: pain (scale score 1-3)) Qty: 30 0RF Rx Instructions: leave on most painful area for up to 12 hrs Referrals: Miscellaneous,Doctor, MD [Non-Staff, Medical] Stand Alone Forms: Patient Portal/API
[2025-07-12] MEDS: LACTATED RINGERS 1,000 ML 1000 ML IV (07:56)
[2025-07-12 08:13] LABS: Hematocrit 31.3 % (41-53); Hemoglobin 10.6 g/dL (13.5-17.5); Mean Corpuscular HGB Conc 33.9 % (30-36); Mean Corpuscular Hemoglobin 25.5 PG (26-34); Mean Corpuscular Volume 75.0 fL (80-100); Platelet Count 275 X10^3/uL (150-400)
[2025-07-12 08:20] LABS: Reticulocyte Count, Percent 4.5 % (0.9-2.6)
[2025-07-12 08:23] LABS: Add Manual Diff / Slide Review YES
[2025-07-12 08:32] LABS: Band Neutrophils Percent 1.0 % (3-7); Eosinophils Percent Manual 2.0 % (2-4); Lymphocytes Percent Manual 45.0 % (25-45); Monocytes Percent Manual 7.0 % (2-11); Neutrophils Absolute Manual 4968 /uL (3000-5900); Segmented Neutrophils Percent 45.0 % (38-70); Total Cells Counted 100
[2025-07-12 08:33] LABS: Anisocytosis 1+; Microcytosis 1+; Sickle Cells 1+; Target Cells 1+
[2025-07-12 08:34] LABS: Ovalocytes 1+
[2025-07-12 08:54] LABS: Alanine Aminotransferase 22 IU/L (<50); Albumin 4.0 g/dL (3.5-5.0); Albumin Globulin Ratio 1.3 (1.0-2.8); Alkaline Phosphatase 71 U/L (38-126); Blood Urea Nitrogen 7 mg/dL (9-20); Calcium 8.2 mg/dL (8.4-10.2); Carbon Dioxide 25 mmol/L (22-32); Chloride 107 mmol/L (98-107); Estimated Glomerular Filt Rate > 60 mL/min (>60); Globulin 3.2 g/dL (1.7-4.1); Glucose 82 mg/dL (70-99); HEMOLYSIS < 15 (0-50); Potassium 3.8 mmol/L (3.4-5.1); Sodium 139 mmol/L (137-145); Total Protein 7.2 g/dL (6.3-8.2)
[2025-07-12] MEDS: ONDANSETRON 4 MG/2 ML INJ IV (09:17)
== END 2025-07-12 10:24 | disposition home or self-care (01) ==
PROVIDERS: Emergency Provider Family Medicine
DX: D57.00 Hb-SS disease with crisis, unspecified (principal)
CPT/HCPCS: 36415; 80053; 85007; 85025; 85045; 96374; 96375; 96376; 99284; J1171; J2405; J7120

== ENCOUNTER 2025-07-14 03:29 | Emergency (ER) | payer SELFPAY ==
[2025-06-07 14:47] VITALS: BMI 18.6
[2025-07-14 03:41] VITALS: BP 106/67; PULSE 84; RESP 16; TEMP 36.7; O2SAT 100; BMI 18.8
--- NOTE | 2025-07-14 03:42 | ED_ITS ---
HPI - Nausea/Vomiting/Diarrhea General Chief complaint: Nausea/Vomiting/Diarrhea Stated complaint: Lower back pain, body pain, N Time Seen by Provider: 07/14/25 03:37 History of Present Illness HPI Narrative: Patient is a 24-year-old male with a past medical history of sickle cell disease CVA with left-sided hemiparesis presenting from home for evaluation of abdominal pain/discomfort, nausea and vomiting. He states that he just feels ?unwell states that he is not having a flare-up of his sickle cell pain which is typically to his low back. He denies any trauma or falls denies any thing making it better or worse. He states that he was here yesterday for his sickle cell pain states that this is not the reason that he is presenting today. To note patient states that he was admitted here a few months ago for an intussusception had his appendix removed prophylactically. He states this is not similar to what brought him in at that time. Just feels like he is feeling ?off. Related Data Home Medications ?Medication ?Instructions ?Recorded ?Confirmed albuterol sulfate 90 mcg/actuation 2 puff inhalation Q 6H PRN wheezing 11/18/24 06/17/25 aerosol inhaler Previous Rx's ?Medication ?Instructions ?Recorded cholecalciferol (vitamin D3) 10 20 mcg (2 x 10 mcg (40 0 unit)) PO 10/25/24 mcg (400 unit) capsule DAILY #180 caps duloxetine 60 mg capsule,delayed 60 mg PO DAILY #90 ca ps 05/01/25 release lidocaine 5 % topical patch 1 patch topical DAILY PRN pain 05/30/25 (scale score 1-3) #30 ea methocarbamol 750 mg tablet 750 mg PO Q8H PRN muscle s pasm #20 05/30/25 tabs hydroxyurea 500 mg capsule 500 mg PO DAILY #30 caps oxycodone 5 mg tablet 5 mg PO Q3H PRN Pain, Modera te 06/10/25 (4-6) #15 tabs benzonatate 200 mg capsule 200 mg PO TID PRN cough #30 caps 06/17/25 benzonatate 200 mg capsule 200 mg PO TID PRN cough #30 caps 06/17/25 guaifenesin 1,200 mg tablet, 1,200 mg PO Q12H #30 tabs 06/17/25 extended release 12 hr Allergies Allergy/AdvReac Type Severity Reaction Status Date / Time No Known Drug Allergies Allergy Verified 07/14/25 03:41 Review of Systems Review of Systems Narrative: General: Denies fever, chills, weight loss HEENT: Denies headache, eye drainage, eye irritation, head trauma, sore throat, voice change Cardiovascular: Denies any chest pain, palpitations, tachycardia Respiratory: Denies any shortness of breath, cough, wheeze, stridor GI/: Positive abdominal pain, nausea, vomiting, denies diarrhea, bright red blood per rectum, melanotic stools, urinary frequency, urinary retention, dysuria, hematuria MSK: Denies any joint pain, muscle pains, swelling Skin: Denies any rashes, lesions, discoloration Neuro: Denies any headache, lightheadedness, dizziness, fainting, weakness Psych: Denies SI/HI Patient History Medical History History of CVA (cerebrovascular accident) Vitamin D deficiency PTSD (post-traumatic stress disorder) Depression Anxiety Seizure Anemia Avascular necrosis of bone Contracture, left elbow Contracture, left hand CVA (cerebral vascular accident) Sickle cell anemia Surgical History History of shoulder surgery 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 Family History Father Cancer Sickle cell trait Lupus Mother Sickle cell trait Brother Sickle cell trait Social History household members: significant other Smoking Status: Former smoker alcohol intake: current tobacco type: vaping alcohol intake frequency: holidays/special occasions only Exam Narrative Exam Narrative: General: Cooperative, comfortable, well-developed, not in acute distress HEENT: Normocephalic, atraumatic, PERRLA, normal sclera, eyelids normal, Neck: Active full range of motion, atraumatic Chest: Normal to inspection, negative crepitus, no overlying erythema ecchymosis Respiratory: Normal respiratory effort, not in acute respiratory distress, clear to auscultation bilaterally negative cough, wheeze, tachypnea, rhonchi, rales Cardiology: Regular rate rhythm negative gallop, murmur, rubs GI/: Normal to inspection, soft, nonrigid, no tenderness to palpation, exam deferred MSK: patient with baseline left upper extremity deficits from history of vaso- occlusive crisis in the past, bilateral lower extremities neurovascularly intact able to stand bear weight ambulate unassisted here in the emergency department Skin: No rashes lesions noted Neuro: Alert awake oriented x3, m, cranial nerves intact, able to answer all questions appropriately follows commands appropriately Psych: Cooperative, negative suicidal or homicidal ideations Initial Vital Signs Initial Vital Signs: Vital Signs Temperature 98.1 F 07/14/25 03:41 Pulse Rate 84 07/14/25 03:41 Respiratory Rate 16 07/14/25 03:41 Blood Pressure 106/67 07/14/25 03:41 Pulse Oximetry 100 07/14/25 03:41 Oxygen Delivery Method Room Air 07/14/25 03:41 Course Orders Ordered: ED Orders 07/14/25 03:42 CT abdomen pelvis w con Stat 07/14/25 03:52 Respiratory Panel (Film Array) Stat 07/14/25 04:08 CBC Auto Diff [Complete Blood Count AUTO DIFF] Stat CMP [Comprehensive Metabolic Panel] Stat Lactate (Lactic Acid) Stat Lipase Stat MAG [Magnesium] Stat Discontinued Medications Hydromorphone HCl (Hydromorphone 1 Mg/Ml Syringe) 1 mg IV NOW ONE Stop: 07/14/25 03:43 Last Admin: 07/14/25 04:10 Dose: 1 mg Documented By: LOAN Hydromorphone HCl (Hydromorphone 1 Mg/Ml Syringe) 1 mg IV NOW ONE Stop: 07/14/25 04:40 Last Admin: 07/14/25 04:54 Dose: 1 mg Documented By: Sodium Chloride (Normal Saline 0.9%) 1,000 mls @ 1,000 mls/hr IV BOLUS ONE Stop: 07/14/25 04:41 Last Admin: 07/14/25 04:10 Dose: 1,000 mls/hr Documented By: LOAN Ondansetron HCl (Ondansetron 4 Mg/2 Ml Inj) 4 mg IV NOW ONE Stop: 07/14/25 03:43 Last Admin: 07/14/25 04:10 Dose: 4 mg Documented By: LOAN Vital Signs Vital signs: Vital Signs - 8 hr 07/14/25 03:41 07/14/25 04:50 07/14/25 05:00 Temperature 98.1 F Pulse Rate 84 83 90 Respiratory Rate 16 Blood Pressure 106/67 107/67 105/66 Pulse Oximetry 100 99 96 Oxygen Delivery Method Room Air Room Air Room Air MDM - Nausea/Vomiting/Diarrhea Lab Data 07/14/25 04:08 07/14/25 04:08 Labs: Lab Results 07/14/25 07/14/25 Range/Units 03:52 04:08 WBC 8.0 (4.5-11.0) X10^3/uL RBC 4.12 L (4.5-5.9) X10^6/uL Hgb 10.5 L (13.5-17.5) g/dL Hct 30.8 L (41-53) % MCV 74.7 L (80-100) fL MCH 25.6 L (26-34) PG MCHC 34.2 (30-36) % RDW 19.4 H (11.6-14.8) % Plt Count 277 (150-400) X10^3/uL Neut % (Auto) 34.9 L (50-75) % Lymph % (Auto) 53.6 H (25-40) % [place] % (Auto) 8.2 (3-14) % Eos % (Auto) 2.1 (2-4) % Baso % (Auto) 1.2 (0-2) % Neut # (Auto) 2800 (5457-5591) /uL Lymph # (Auto) 4300 (8839-0917) /uL [place] # (Auto) 700 (0-900) /uL Eos # (Auto) 200 (0-450) /uL Baso # (Auto) 100 (0-100) /uL Sodium 141 (137-145) mmol/L Potassium 3.6 (3.4-5.1) mmol/L Chloride 105 (98-107) mmol/L Carbon Dioxide 26 (22-32) mmol/L BUN 4 L (9-20) mg/dL Creatinine 0.66 (0.66-1.25) mg/dL Estimated GFR > 60 (>60) mL/min BUN/Creatinine Ratio 6.1 (6-22) Glucose 108 H (70-99) mg/dL Lactate 1.5 (0.7-2.1) mmol/L Calcium 8.7 (8.4-10.2) mg/dL Magnesium 1.7 (1.6-2.3) mg/dL Total Bilirubin 2.9 H (0.2-1.3) mg/dL AST 54 (17-59) IU/L ALT 25 (<50) IU/L Alkaline Phosphatase 70 (38-126) U/L Total Protein 8.6 H (6.3-8.2) g/dL Albumin 4.9 (3.5-5.0) g/dL Globulin 3.7 (1.7-4.1) g/dL Albumin/Globulin Ratio 1.3 (1.0-2.8) Lipase 98 (23-300) U/L Chlamy pneumoniae PCR Not detected (Not Detect) Adenovirus (PCR) Not detected (Not Detect) B. pertussis DNA (PCR) Not detected (Not Detect) B.parapertussis DNA PCR Not detected (Not Detecte) Coronavirus OC43 (PCR) Not detected (Not Detect) Coronavirus HKU1 (PCR) Not detected (Not Detect) Coronavirus 229E (PCR) Not detected (Not Detect) SARS-CoV-2 (PCR) Not detected (Not Detecte) Coronavirus NL63 (PCR) Not detected (Not Detect) Human Metapneumovir PCR Not detected (Not Detect) Influenza Type A (PCR) Not detected (Not Detect) Influenza Type B (PCR) Not detected (Not Detect) M. pneumoniae (PCR) Not detected (Not Detect) Parainfluenza 1 (PCR) Not detected (Not Detect) Parainfluenza 2 (PCR) Not detected (Not Detect) Parainfluenza 3 (PCR) Not detected (Not Detect) Parainfluenza 4 (PCR) Not detected (Not Detect) RSV (PCR) Not detected (Not Detect) Entero/Rhino (PCR) Not detected (Not Detect) Urine Dip Bedside Urine Glucose Negative Bedside Urine Bilirubin - Negative Bedside Urine Ketone - Negative Urine Specific [place] 1.005 Bedside Urine Occult Blood +/- Bedside Urine pH 8.0 Bedside Urine Protein +/- 15 Bedside Urine Urobilinogen +/- 1mg Bedside Urine Nitrite - Negative Bedside Urine Leukocytes - Negative Esterase [facility] Narrative Medical decision making narrative: 24-year-old male with a past medical history of sickle cell disease CVA with left-sided residual deficits/hemiparesis presenting from home for evaluation of abdominal discomfort nausea vomiting ongoing persistent for the past 2 hours, states that he was here yesterday for his typical sickle cell pain wishes to his low back but states that this is not what brought him in today. He states that he just feels ?unwell but denies any other symptoms such as headache visual disturbances chest pain shortness breath fever chills or any other GI/ symptoms at this time. Review of records does show that patient was actually diagnosed with a intussusception on 06/07/2025, patient did undergo a laparoscopic exploratory surgery that did not show any bowel abnormalities. The appendix did appear somewhat thickened but not inflamed and had an appendectomy. Patient states that his symptoms do not feel similar to when he presented for his intussusception. Patient had lab work CT scan performed here in the emergency department. No acute findings, was found. Respiratory panel negative, lab work otherwise unremarkable, patient did receive doses of medication for his sickle cell pain, he had improved symptoms of this, he will be discharged home with outpatient follow up. Discharge Plan Departure Patient Disposition: Home Clinical Impression: Sickle cell disease with crisis, Nausea and vomiting Activity Restrictions/Additional Instructions: Please follow up with your care team in outpatient setting Please read the discharge instructions sheet carefully and bring all papers to all doctor follow-up visits, as it may contain information that your doctor may want to see. Disease processes change and evolve, if your symptoms worsen or if you develop any new symptoms that are concerning to you please return for evaluation. Your evaluation today does not show any evidence of any life- threatening/serious illnesses requiring admission to the hospital or surgery. Please follow-up with your doctor for re-evaluation in approximately 1 day. Seek immediate medical attention for any worrisome symptoms. *If you do not have a primary care provider please contact the [facility] Resource line at [phone]. They will ask some questions about your medical history and help get you set up with a doctor in the community. Prescriptions: No Action benzonatate 200 mg capsule 200 mg PO TID PRN (Reason: cough) Qty: 30 0RF guaifenesin 1,200 mg tablet extended release 12hr 1,200 mg PO Q12H Qty: 30 0RF cholecalciferol (vitamin D3) 10 mcg (400 unit) capsule 20 mcg PO DAILY Qty: 180 0RF Rx Instructions: Start two capsules daily after 6 weeks of 1250mcg weekly dosing. duloxetine 60 mg capsule,delayed release(DR/EC) 60 mg PO DAILY Qty: 90 2RF albuterol sulfate 90 mcg/actuation HFA aerosol inhaler 2 puff inhalation Q6H PRN (Reason: wheezing) hydroxyurea 500 mg capsule 500 mg PO DAILY Qty: 30 0RF oxycodone 5 mg Tablet 5 mg PO Q3H PRN (Reason: Pain, Moderate (4-6)) Qty: 15 0RF benzonatate 200 mg capsule 200 mg PO TID PRN (Reason: cough) Qty: 30 0RF methocarbamol 750 mg tablet 750 mg PO Q8H PRN (Reason: muscle spasm) Qty: 20 0RF lidocaine 5 % adhesive patch,medicated 1 patch topical DAILY PRN (Reason: pain (scale score 1-3)) Qty: 30 0RF Rx Instructions: leave on most painful area for up to 12 hrs Stand Alone Forms: Patient Portal/API
--- NOTE | 2025-07-14 03:42 | DI.CT.S_ITS ---
PROCEDURE: CT ABDOMEN PELVIS W CON INDICATIONS: Abdominal pain, nausea and vomiting hx intussusception TECHNIQUE: After the administration of intravenous contrast, axial sections acquired from the lung bases to the pubic symphysis. Coronal and sagittal reformats were performed. For radiation dose reduction, the following was used: automated exposure control, adjustment of mA and/or kV according to patient size. COMPARISON: [facility], CT, CT ABDOMEN PELVIS WO [facility], 06/07/2025, 8:12. FINDINGS: Image quality: Diagnostic. Lower Chest: No significant findings. ABDOMEN: Liver: No solid mass. Gallbladder: Post cholecystectomy Biliary ducts: No biliary dilation. Pancreas: No ductal dilation. Spleen: Nonvisualized spleen, may be secondary to auto infarction. Adrenal Glands: No adrenal nodules. Kidneys and Ureters: No hydronephrosis. No solid mass. No complex renal cystic lesion which requires follow up. Stomach and Bowel: Mild haustra thickening in the mid ascending to proximal transverse colon. Nonvisualized appendix. Peritoneum: No abnormal intraperitoneal fluid. No free air. Ventral Wall: No significant ventral hernia. Abdominal Nodes: No retroperitoneal or mesenteric adenopathy by size criteria. Vessels: Aorta and inferior vena cava are normal in size. PELVIS: Pelvic Organs: Unremarkable. Bladder: No bladder wall thickening, accounting for underdistention. Pelvic Nodes: No enlarged lymph nodes. Miscellaneous: No inguinal hernias are seen. Bones: Diffuse osseous sclerosis, consistent with sequela of sickle cell disease. Changes of right total hip prosthesis. Sequela of bone infarcts of the left femoral head with full-thickness articular cartilage loss and subchondral cystic change. No acute pathologic fracture. IMPRESSION: Mild thickening of the haustra of the ascending and proximal transverse colon which may represent mild colitis versus thickening secondary to underdistention. Chronic findings of sickle cell disease. Findings are concordant preliminary interpretation provided by [facility]. Dictated by: Polo Rogers M.D. on 07/14/2025 at 7:59 Approved by: Ploo Rogers M.D. on 07/14/2025 at 8:05
[2025-07-14] MEDS: ONDANSETRON 4 MG/2 ML INJ IV (04:10)
[2025-07-14] MEDS: SODIUM CHLORIDE 0.9% 1,000 ML 1000 ML IV (04:10)
[2025-07-14 04:24] LABS: Add Manual Diff / Slide Review NO; Hematocrit 30.8 % (41-53); Hemoglobin 10.5 g/dL (13.5-17.5); Lymphocytes Absolute Auto 4300 /uL (1100-4500); Mean Corpuscular HGB Conc 34.2 % (30-36); Mean Corpuscular Hemoglobin 25.6 PG (26-34); Mean Corpuscular Volume 74.7 fL (80-100); Platelet Count 277 X10^3/uL (150-400)
[2025-07-14 04:36] LABS: Lactate (Lactic Acid) 1.5 mmol/L (0.7-2.1)
[2025-07-14 04:37] LABS: Alanine Aminotransferase 25 IU/L (<50); Albumin 4.9 g/dL (3.5-5.0); Albumin Globulin Ratio 1.3 (1.0-2.8); Alkaline Phosphatase 70 U/L (38-126); Blood Urea Nitrogen 4 mg/dL (9-20); Calcium 8.7 mg/dL (8.4-10.2); Carbon Dioxide 26 mmol/L (22-32); Chloride 105 mmol/L (98-107); Estimated Glomerular Filt Rate > 60 mL/min (>60); Globulin 3.7 g/dL (1.7-4.1); Glucose 108 mg/dL (70-99); HEMOLYSIS 23 (0-50); Lipase 98 U/L (23-300); Magnesium 1.7 mg/dL (1.6-2.3); Potassium 3.6 mmol/L (3.4-5.1); Sodium 141 mmol/L (137-145); Total Protein 8.6 g/dL (6.3-8.2)
[2025-07-14 04:50] VITALS: BP 107/67; PULSE 83; O2SAT 99
[2025-07-14 04:50] LABS: Coronavirus NL 63 Not Detected (Not Detect); SARS- CoV-2 Not Detected (Not Detecte)
[2025-07-14 05:00] VITALS: BP 105/66; PULSE 90; O2SAT 96
[2025-07-14 05:09] VITALS: PULSE 89; O2SAT 96
[2025-07-14 05:30] VITALS: BP 106/62; PULSE 81; O2SAT 96
== END 2025-07-14 05:45 | disposition home or self-care (01) ==
PROVIDERS: Emergency Provider Student in an Organized Health Care Education/Training Program
DX: D57.00 Hb-SS disease with crisis, unspecified (principal); R11.2 Nausea with vomiting, unspecified; Z90.49 Acquired absence of other specified parts of digestive tract
CPT/HCPCS: 36415; 74177; 80053; 81003; 83605; 83690; 83735; 85025; 87633; 96361; 96374; 96375; 96376; 99284; J1171; J2405; J7030; Q9967

== ENCOUNTER 2025-07-18 15:09 | Emergency (ER) | payer SELFPAY ==
[2025-06-07 14:47] VITALS: BMI 18.6
[2025-07-18 15:35] VITALS: BP 106/58; PULSE 102; RESP 18; TEMP 37.3; O2SAT 99; BMI 19.3
--- NOTE | 2025-07-18 17:00 | ED.BACK ---
HPI - Back Pain/Injury General Chief Complaint: Back Pain/Injury Stated Complaint: Lower back pain and bilateral leg pain Time Seen by Provider: 07/18/25 16:28 History of Present Illness HPI Narrative: 24-year-old male patient with a history of sickle cell anemia and frequent visits to the ER for sickle cell related muscle pain. He returns now with back and leg pain which he has had before. No new injury. He is requesting pain medication. Related Data Home Medications ?Medication ?Instructions ?Recorded ?Confirmed albuterol sulfate 90 mcg/actuation 2 puff inhalation Q6H PRN wheezing 11/18/24 06/17/25 aerosol inhaler Previous Rx's ?Medication ?Instructions ?Recorded cholecalciferol (vitamin D3) 10 20 mcg (2 x 10 mcg (400 unit)) PO 10/25/24 mcg (400 unit) capsule DAILY #180 caps duloxetine 60 mg capsule,delayed 60 mg PO DAILY #90 caps 05/01/25 release lidocaine 5 % topical patch 1 patch topical DAILY PRN pain 05/30/25 (scale score 1-3) #30 ea methocarbamol 750 mg tablet 750 mg PO Q8H PRN muscle spasm #20 05/30/25 tabs hydroxyurea 500 mg capsule 500 mg PO DAILY #30 caps 06/09/25 oxycodone 5 mg tablet 5 mg PO Q3H PRN Pain, Moderate 06/10/25 (4-6) #15 tabs benzonatate 200 mg capsule 200 mg PO TID PRN cough #30 caps 06/17/25 benzonatate 200 mg capsule 200 mg PO TID PRN cough #30 caps 06/17/25 guaifenesin 1,200 mg tablet, 1,200 mg PO Q12H #30 tabs 06/17/25 extended release 12 hr Allergies Allergy/AdvReac Type Severity Reaction Status Date / Time No Known Drug Allergies Allergy Verified 07/14/25 03:41 Review of Systems Review of Systems ROS Unobtainable: All systems reviewed & are unremarkable except as noted in HPI and below Musculoskeletal Musculoskeletal: Reports as per HPI Hematologic/Lymphatic Hematologic/Lymphatic: Reports as per HPI Patient History Medical History History of CVA (cerebrovascular accident) Vitamin D deficiency PTSD (post-traumatic stress disorder) Depression Anxiety Seizure Anemia Avascular necrosis of bone Contracture, left elbow Contracture, left hand CVA (cerebral vascular accident) Sickle cell anemia Surgical History History of shoulder surgery 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 No distress. Appears well nourished and well hydrated Craniofacial: No evidence of trauma. Nontender and no swelling. Eyes: PERRLA EOMI conjunctiva clear Lungs: Clear to auscultation with good air movement. No wheezing, rales or rhonchi. No respiratory distress Cardiac: Regular rate and rhythm with no appreciable murmur or gallop Abdomen: Soft, nontender with no distention or masses. Normal bowel sounds. No rebound or guarding Musculoskeletal: Mild right paralumbar and buttock tenderness. OtherwiseExam of the extremities, axial spine and ribcage reveals no deformity, bony tenderness or swelling. Range of motion intact Neuro: Alert and oriented. Cranial nerves, motor, sensory and cerebellar all grossly intact. No focal deficit Skin: Warm and normal color. No rashes Psychological: Normal affect and interaction. No evidence of delusion or psychosis. Normal mood. Initial Vital Signs Initial Vital Signs: Vital Signs Temperature 99.1 F 07/18/25 15:35 Pulse Rate 102 H 07/18/25 15:35 Respiratory Rate 18 07/18/25 15:35 Blood Pressure 106/58 L 07/18/25 15:35 Pulse Oximetry 99 07/18/25 15:35 Oxygen Delivery Method Room Air 07/18/25 15:35 Course Orders Ordered: Discontinued Medications Hydromorphone HCl (Hydromorphone 1 Mg/Ml Syringe) 2 mg IM NOW ONE Stop: 07/18/25 17:01 Last Admin: 07/18/25 17:20 Dose: 1 mg Documented By: INO Vital Signs Vital signs: Vital Signs - 8 hr 07/18/25 15:35 07/18/25 18:07 Temperature 99.1 F Pulse Rate 102 H 78 Respiratory Rate 18 18 Blood Pressure 106/58 L 110/61 Pulse Oximetry 99 99 Oxygen Delivery Method Room Air Room Air MDM - Back Pain/Injury MDM Narrative Medical decision making narrative: patient improved with 2 mg hydromorphone IM. This is typical for his visits. I do not believe he needs further workup including lab work or imaging. He had recent lab work which was reassuring. He has no warning flags that would require further workup. Patient would like to be discharged home. I think that is reasonable and plan is to hydrate and follow up with primary care. Return to the ER if worse Discharge Plan Departure Patient Disposition: Home Clinical Impression: Sickle cell anemia with pain, Low back pain Instructions: Sickle Cell Disease Activity Restrictions/Additional Instructions: plan: Hydration and supportive care with continuing current medications. Follow up with your doctor as needed. Return to the ER if worse. Prescriptions: No Action benzonatate 200 mg capsule 200 mg PO TID PRN (Reason: cough) Qty: 30 0RF guaifenesin 1,200 mg tablet extended release 12hr 1,200 mg PO Q12H Qty: 30 0RF cholecalciferol (vitamin D3) 10 mcg (400 unit) capsule 20 mcg PO DAILY Qty: 180 0RF Rx Instructions: Start two capsules daily after 6 weeks of 1250mcg weekly dosing. duloxetine 60 mg capsule,delayed release(DR/EC) 60 mg PO DAILY Qty: 90 2RF albuterol sulfate 90 mcg/actuation HFA aerosol inhaler 2 puff inhalation Q6H PRN (Reason: wheezing) hydroxyurea 500 mg capsule 500 mg PO DAILY Qty: 30 0RF oxycodone 5 mg Tablet 5 mg PO Q3H PRN (Reason: Pain, Moderate (4-6)) Qty: 15 0RF benzonatate 200 mg capsule 200 mg PO TID PRN (Reason: cough) Qty: 30 0RF methocarbamol 750 mg tablet 750 mg PO Q8H PRN (Reason: muscle spasm) Qty: 20 0RF lidocaine 5 % adhesive patch,medicated 1 patch topical DAILY PRN (Reason: pain (scale score 1-3)) Qty: 30 0RF Rx Instructions: leave on most painful area for up to 12 hrs Stand Alone Forms: Patient Portal/API
[2025-07-18 18:07] VITALS: BP 110/61; PULSE 78; RESP 18; O2SAT 99
== END 2025-07-18 18:07 | disposition home or self-care (01) ==
PROVIDERS: Emergency Provider Emergency Medicine
DX: D57.00 Hb-SS disease with crisis, unspecified (principal)
CPT/HCPCS: 96372; 99283; J1171

== ENCOUNTER 2025-07-19 00:14 | Emergency (ER) | payer SELFPAY ==
[2025-06-07 14:47] VITALS: BMI 18.6
[2025-07-19] VITALS (9 sets, daily range): BP systolic 104–113; BP diastolic 63–66; PULSE 80–99; RESP 16; TEMP 37; O2SAT 86–97; BMI 18.6
--- NOTE | 2025-07-19 00:23 | ED.GENADULT ---
HPI - General Adult General Chief complaint: Nausea/Vomiting/Diarrhea Stated complaint: Body pain, N Time Seen by Provider: 07/19/25 00:20 Source: patient, RN notes reviewed and old records reviewed Mode of arrival: Ambulatory Limitations: no limitations History of Present Illness HPI narrative: 24-year-old male past medical history of sickle cell disease, childhood stroke with left-sided hemiparesis, prior splenectomy with a complaint of low back pain radiating down his legs somewhat. Patient states this is similar when he starts to develop crisis. He states he was seen earlier today he had IM pain medications but did not receive fluids or have additional workup. He states he has continued to feel nauseated all day but has not had any vomiting. He denies fevers or chills. He denies any chest pain or shortness of breath. He states his bowel movements has been normal, he has not had any changes to urination, no bowel or bladder incontinence. No new numbness or weakness that he appreciates. Patient states he is continuing to take his daily medications he is on hydroxyurea. He notes he has a established with the grid molder in [place] has has had 1 visit and has follow up scheduled on August 18. Related Data Home Medications ?Medication ?Instructions ?Recorded ?Confirmed albuterol sulfate 90 mcg/actuation 2 puff inhalation Q6H PRN wheezing 11/18/24 06/17/25 aerosol inhaler Previous Rx's ?Medication ?Instructions ?Recorded cholecalciferol (vitamin D3) 10 20 mcg (2 x 10 mcg (400 unit)) PO 10/25/24 mcg (400 unit) capsule DAILY #180 caps duloxetine 60 mg capsule,delayed 60 mg PO DAILY #90 caps 05/01/25 release lidocaine 5 % topical patch 1 patch topical DAILY PRN pain 05/30/25 (scale score 1-3) #30 ea methocarbamol 750 mg tablet 750 mg PO Q8H PRN muscle spasm #20 05/30/25 tabs hydroxyurea 500 mg capsule 500 mg PO DAILY #30 caps 06/09/25 oxycodone 5 mg tablet 5 mg PO Q3H PRN Pain, Moderate 06/10/25 (4-6) #15 tabs benzonatate 200 mg capsule 200 mg PO TID PRN cough #30 caps 06/17/25 benzonatate 200 mg capsule 200 mg PO TID PRN cough #30 caps 06/17/25 guaifenesin 1,200 mg tablet, 1,200 mg PO Q12H #30 tabs 06/17/25 extended release 12 hr Allergies Allergy/AdvReac Type Severity Reaction Status Date / Time No Known Drug Allergies Allergy Verified 07/19/25 00:23 Review of Systems Review of Systems ROS Unobtainable: All systems reviewed & are unremarkable except as noted in HPI and below Patient History Medical History History of CVA (cerebrovascular accident) Vitamin D deficiency PTSD (post-traumatic stress disorder) Depression Anxiety Seizure Anemia Avascular necrosis of bone Contracture, left elbow Contracture, left hand CVA (cerebral vascular accident) Sickle cell anemia Surgical History History of shoulder surgery 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 Family History Father Cancer Sickle cell trait Lupus Mother Sickle cell trait Brother Sickle cell trait Social History household members: significant other Smoking Status: Never smoker alcohol intake: current tobacco type: vaping alcohol intake frequency: holidays/special occasions only Exam Narrative Exam Narrative: GENERAL: Alert and oriented x three, male in mild distress HEENT: Head normocephalic, atraumatic, EOMI, pupils reactive, face symmetric, moist mucous membranes NECK: Supple, full range of motion CARDIOVASCULAR: Regular rate and rhythm without murmurs, rubs or gallops. RESPIRATORY: Breath sounds equal bilaterally, no wheezes rales or rhonchi. ABDOMEN: Soft, nontender. Nondistended. Normoactive bowel sounds all 4 quadrants. No guarding or rebound, rigidity, no mass : No CVA tenderness EXTREMITIES: Left-sided hemiparesis with atrophy of the left upper extremity, no clubbing or edema. Neurovascularly intact NEUROLOGICAL: Cranial nerves II through XII grossly intact. Moving all extremities SKIN: Warm, dry, no petechiae, no rashes or lesions. Initial Vital Signs Initial Vital Signs: Vital Signs Temperature 98.6 F 07/19/25 00:23 Pulse Rate 94 H 07/19/25 00:23 Respiratory Rate 16 07/19/25 00:23 Blood Pressure 113/63 07/19/25 00:23 Pulse Oximetry 95 07/19/25 00:23 Oxygen Delivery Method Room Air 07/19/25 00:23 Course Orders Ordered: ED Orders 07/19/25 01:05 CBC Auto Diff [Complete Blood Count AUTO DIFF] Stat CMP [Comprehensive Metabolic Panel] Stat RETIC [Reticulocyte Count, Percent] Stat Discontinued Medications Hydromorphone HCl (Hydromorphone 1 Mg/Ml Syringe) 1 mg IV NOW ONE Stop: 07/19/25 00:29 Last Admin: 07/19/25 00:45 Dose: 1 mg Documented By: LOAN Hydromorphone HCl (Hydromorphone 1 Mg/Ml Syringe) 1 mg IV NOW ONE Stop: 07/19/25 01:49 Last Admin: 07/19/25 01:51 Dose: 1 mg Documented By: LOAN Sodium Chloride (Normal Saline 0.9%) 1,000 mls @ 1,000 mls/hr IV BOLUS ONE Stop: 07/19/25 01:27 Last Infusion: 07/19/25 03:23 Dose: Infused Documented By: Admin: 07/19/25 00:43 Dose: 1,000 mls/hr Documented By: LOAN Ondansetron HCl (Ondansetron 4 Mg/2 Ml Inj) 4 mg IV NOW ONE Stop: 07/19/25 00:29 Last Admin: 07/19/25 00:44 Dose: 4 mg Documented By: LOAN Vital Signs Vital signs: Vital Signs - 8 hr 07/19/25 00:23 07/19/25 00:29 07/19/25 00:30 Temperature 98.6 F Pulse Rate 94 H 93 H 94 H Respiratory Rate 16 Blood Pressure 113/63 Pulse Oximetry 95 92 92 Oxygen Delivery Method Room Air 07/19/25 01:02 07/19/25 01:30 07/19/25 02:00 Temperature Pulse Rate 99 H 80 99 H Respiratory Rate Blood Pressure Pulse Oximetry 86 L 97 96 Oxygen Delivery Method 07/19/25 02:30 07/19/25 03:00 07/19/25 03:20 Temperature Pulse Rate 85 81 Respiratory Rate 16 Blood Pressure 104/66 Pulse Oximetry 95 93 Oxygen Delivery Method 07/19/25 03:20 Temperature Pulse Rate 82 Respiratory Rate Blood Pressure Pulse Oximetry 95 Oxygen Delivery Method Medical Decision Making Lab Data 07/19/25 01:05 07/19/25 01:05 Labs: Lab Results 07/19/25 Range/Units 01:05 WBC 14.9 H (4.5-11.0) X10^3/uL RBC 3.76 L (4.5-5.9) X10^6/uL Hgb 9.6 L (13.5-17.5) g/dL Hct 27.7 L (41-53) % MCV 73.7 L (80-100) fL MCH 25.5 L (26-34) PG MCHC 34.6 (30-36) % RDW 18.0 H (11.6-14.8) % Plt Count 256 (150-400) X10^3/uL Neut % (Auto) Not Reportable Lymph % (Auto) Not Reportable [place] % (Auto) Not Reportable Eos % (Auto) Not Reportable Baso % (Auto) Not Reportable Lymph # (Auto) Not Reportable [place] # (Auto) Not Reportable Baso # (Auto) Not Reportable Total Counted 100 Seg Neutrophils % 63.0 (38-70) % Band Neutrophils % 2.0 L (3-7) % Lymphocytes % (Manual) 27.0 (25-45) % Atypical Lymphs % 4.0 H ( - 0) % Monocytes % (Manual) 3.0 (2-11) % Basophils % (Manual) 1.0 (0-1) % Neutrophils # (Manual) 9685 H (4427-7691) /uL Platelet Estimate Adequate on smear RBC Morphology See below Poikilocytosis 1+ H Anisocytosis 2+ H Microcytosis 1+ H Sickle Cells 1+ H Target Cells 2+ H Tear Drop Cells 2+ H Schistocytes 1+ H Percent Retic 6.2 H (0.9-2.6) % Sodium 143 (137-145) mmol/L Potassium 3.5 (3.4-5.1) mmol/L Chloride 107 (98-107) mmol/L Carbon Dioxide 22 (22-32) mmol/L BUN 8 L (9-20) mg/dL Creatinine 0.68 (0.66-1.25) mg/dL Estimated GFR > 60 (>60) mL/min BUN/Creatinine Ratio 11.8 (6-22) Glucose 81 (70-99) mg/dL Calcium 8.6 (8.4-10.2) mg/dL Total Bilirubin 3.6 H (0.2-1.3) mg/dL AST 54 (17-59) IU/L ALT 21 (<50) IU/L Alkaline Phosphatase 80 (38-126) U/L Total Protein 8.5 H (6.3-8.2) g/dL Albumin 4.9 (3.5-5.0) g/dL Globulin 3.6 (1.7-4.1) g/dL Albumin/Globulin Ratio 1.4 (1.0-2.8) MDM Narrative Medical decision making narrative: 24-year-old male with known history of sickle cell with prior stroke and splenectomy secondary to this. Patient has a visit earlier today received IM pain medications but did not have labs last labs are from 07/14/2025. Heart rates 94 but vitals are otherwise appropriate. Labs, labeled and cell count of 14.9 hemoglobin of 9.6 patient clearly typically runs between the 9 and 8 range. Microcytic with platelets of 256. Retic is 6.2, electrolytes BUN and creatinine are normal, bilirubin is 3.6, face you, ALT alk-phos are all normal. Patient received fluids, antiemetics and pain medication. On recheck after medications patient is feeling improved but still uncomfortable. Reviewed patient's lab findings. Will give another dose of pain medication and re-evaluate. 0312 Recheck after fluids completed 2nd dose of pain medication. Patient is feeling much better requesting discharge home. He is going to reach out his grid molder on Monday to see about being seen sooner. Discharge Plan Departure Patient Disposition: Home Clinical Impression: Sickle-cell disease with pain Activity Restrictions/Additional Instructions: Follow up with your hematology team. call Monday morning. Please return to the emergency department if you have any fevers, worsening pain, severe headaches, sudden vision changes, new chest pain, any shortness of breath, lightheadedness or passing out, persistent vomiting, any swelling in extremities or other new or concerning changes. Prescriptions: No Action benzonatate 200 mg capsule 200 mg PO TID PRN (Reason: cough) Qty: 30 0RF guaifenesin 1,200 mg tablet extended release 12hr 1,200 mg PO Q12H Qty: 30 0RF cholecalciferol (vitamin D3) 10 mcg (400 unit) capsule 20 mcg PO DAILY Qty: 180 0RF Rx Instructions: Start two capsules daily after 6 weeks of 1250mcg weekly dosing. duloxetine 60 mg capsule,delayed release(DR/EC) 60 mg PO DAILY Qty: 90 2RF albuterol sulfate 90 mcg/actuation HFA aerosol inhaler 2 puff inhalation Q6H PRN (Reason: wheezing) hydroxyurea 500 mg capsule 500 mg PO DAILY Qty: 30 0RF oxycodone 5 mg Tablet 5 mg PO Q3H PRN (Reason: Pain, Moderate (4-6)) Qty: 15 0RF benzonatate 200 mg capsule 200 mg PO TID PRN (Reason: cough) Qty: 30 0RF methocarbamol 750 mg tablet 750 mg PO Q8H PRN (Reason: muscle spasm) Qty: 20 0RF lidocaine 5 % adhesive patch,medicated 1 patch topical DAILY PRN (Reason: pain (scale score 1-3)) Qty: 30 0RF Rx Instructions: leave on most painful area for up to 12 hrs Stand Alone Forms: Patient Portal/API
--- NOTE | 2025-07-19 00:35 | PC.NURSE ---
pt c/o back and leg pain with nausea, states is his typical sickle cell pain
[2025-07-19] MEDS: SODIUM CHLORIDE 0.9% 1,000 ML 1000 ML IV (00:43)
[2025-07-19] MEDS: ONDANSETRON 4 MG/2 ML INJ IV (00:44)
[2025-07-19 01:21] LABS: Hematocrit 27.7 % (41-53); Hemoglobin 9.6 g/dL (13.5-17.5); Mean Corpuscular HGB Conc 34.6 % (30-36); Mean Corpuscular Hemoglobin 25.5 PG (26-34); Mean Corpuscular Volume 73.7 fL (80-100); Platelet Count 256 X10^3/uL (150-400)
[2025-07-19 01:27] LABS: Add Manual Diff / Slide Review YES
[2025-07-19 01:30] LABS: Alanine Aminotransferase 21 IU/L (<50); Albumin 4.9 g/dL (3.5-5.0); Albumin Globulin Ratio 1.4 (1.0-2.8); Alkaline Phosphatase 80 U/L (38-126); Blood Urea Nitrogen 8 mg/dL (9-20); Calcium 8.6 mg/dL (8.4-10.2); Carbon Dioxide 22 mmol/L (22-32); Chloride 107 mmol/L (98-107); Estimated Glomerular Filt Rate > 60 mL/min (>60); Globulin 3.6 g/dL (1.7-4.1); Glucose 81 mg/dL (70-99); HEMOLYSIS < 15 (0-50); Potassium 3.5 mmol/L (3.4-5.1); Sodium 143 mmol/L (137-145); Total Protein 8.5 g/dL (6.3-8.2)
[2025-07-19 01:32] LABS: Reticulocyte Count, Percent 6.2 % (0.9-2.6)
[2025-07-19 01:46] LABS: Atypical Lymphocytes Percent 4.0 %; Band Neutrophils Percent 2.0 % (3-7); Basophils Percent Manual 1.0 % (0-1); Lymphocytes Percent Manual 27.0 % (25-45); Monocytes Percent Manual 3.0 % (2-11); Neutrophils Absolute Manual 9685 /uL (3000-5900); Segmented Neutrophils Percent 63.0 % (38-70); Total Cells Counted 100
[2025-07-19 01:47] LABS: Anisocytosis 2+; Microcytosis 1+
[2025-07-19 01:48] LABS: Poikilocytosis 1+; Tear Drop Cells 2+
[2025-07-19 01:49] LABS: Schistocytes 1+; Sickle Cells 1+; Target Cells 2+
== END 2025-07-19 03:26 | disposition home or self-care (01) ==
PROVIDERS: Emergency Provider Emergency Medicine
DX: D57.00 Hb-SS disease with crisis, unspecified (principal); R11.0 Nausea
CPT/HCPCS: 36415; 80053; 85007; 85025; 85045; 96374; 96375; 96376; 99284; J1171; J2405; J7030

== ENCOUNTER 2025-08-02 21:47 | Emergency (ER) | payer SELFPAY ==
[2025-06-07 14:47] VITALS: BMI 18.6
[2025-08-02 21:58] VITALS: BP 97/53; PULSE 76; RESP 16; TEMP 37; O2SAT 96; BMI 18.6
--- NOTE | 2025-08-02 22:33 | ED_ITS ---
HPI - Back Pain/Injury General Chief Complaint: Back Pain/Injury Stated Complaint: sickle cell crisis Time Seen by Provider: 08/02/25 21:51 History of Present Illness HPI Narrative: 24-year-old male past medical history sickle cell disease, childhood stroke with left-sided hemiparesis, prior splenectomy with a complaint of back and leg pain. His pain is similar to his prior ER visits the potential sickle cell crisis. Denies any fever chills chest pain shortness of breath or other symptoms. Has normal bowel movements no bowel or bladder incontinence. No new numbness or weakness. He is established with a [facility] programmer and oncologist as well as a pain medicine specialist now but has just run out of oxycodone just today. Related Data Home Medications ?Medication ?Instructions ?Recorded ?Confirmed albuterol sulfate 90 mcg/actuation 2 puff inhalation Q 6H PRN wheezing 11/18/24 06/17/25 aerosol inhaler Previous Rx's ?Medication ?Instructions ?Recorded cholecalciferol (vitamin D3) 10 20 mcg (2 x 10 mcg (40 0 unit)) PO 10/25/24 mcg (400 unit) capsule DAILY #180 caps duloxetine 60 mg capsule,delayed 60 mg PO DAILY #90 ca ps 05/01/25 release lidocaine 5 % topical patch 1 patch topical DAILY PRN pain 05/30/25 (scale score 1-3) #30 ea methocarbamol 750 mg tablet 750 mg PO Q8H PRN muscle s pasm #20 05/30/25 tabs hydroxyurea 500 mg capsule 500 mg PO DAILY #30 caps oxycodone 5 mg tablet 5 mg PO Q3H PRN Pain, [place] 06/10/25 (4-6) #15 tabs benzonatate 200 mg capsule 200 mg PO TID PRN cough #30 caps 06/17/25 benzonatate 200 mg capsule 200 mg PO TID PRN cough #30 caps 06/17/25 guaifenesin 1,200 mg tablet, 1,200 mg PO Q12H #30 tabs 06/17/25 extended release 12 hr Allergies Allergy/AdvReac Type Severity Reaction Status Date / Time No Known Drug Allergies Allergy Verified 07/19/25 00:23 Review of Systems Review of Systems ROS Unobtainable: All systems reviewed & are unremarkable except as noted in HPI and below Patient History Medical History History of CVA (cerebrovascular accident) Vitamin D deficiency PTSD (post-traumatic stress disorder) Depression Anxiety Seizure Anemia Avascular necrosis of bone Contracture, left elbow Contracture, left hand CVA (cerebral vascular accident) Sickle cell anemia Surgical History History of shoulder surgery 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 Family History Father Cancer Sickle cell trait Lupus Mother Sickle cell trait Brother Sickle cell trait Social History household members: significant other alcohol intake: current tobacco type: vaping alcohol intake frequency: holidays/special occasions only Exam Narrative Exam Narrative: General: Patient appears to be in no acute distress, acting appropriately Head: normocephalic, atraumatic, HEENT: Pupils equal round reactive, eyes tracking well, neck supple, no JVD Heart: regular rate and rhythm, no murmurs, rubs, or gallops heard Lungs: clear to auscultation, no adventitious sounds Abdomen: soft , nontender, nondistended, positive bowel sounds Neurological: no focal neurological signs, left side hemiparesis with atrophy of left upper extremity, alert and oriented x3, Psych: good judgment ,good insight, mood is normal. Initial Vital Signs Initial Vital Signs: Vital Signs Temperature 98.6 F 08/02/25 21:58 Pulse Rate 76 08/02/25 21:58 Respiratory Rate 16 08/02/25 21:58 Blood Pressure 97/53 L 08/02/25 21:58 Pulse Oximetry 96 08/02/25 21:58 Oxygen Delivery Method Room Air 08/02/25 21:58 Course Orders Ordered: ED Orders 08/03/25 01:40 CBC Auto Diff [Complete Blood Count AUTO DIFF] Stat CMP [Comprehensive Metabolic Panel] Stat RETIC [Reticulocyte Count, Percent] Stat Discontinued Medications Hydromorphone HCl (Hydromorphone 1 Mg/Ml Syringe) 1 mg IV NOW ONE Stop: 08/02/25 22:36 Last Admin: 08/02/25 22:52 Dose: 1 mg Documented By: JACQUELINE Hydromorphone HCl (Hydromorphone 1 Mg/Ml Syringe) 1 mg IV NOW ONE Stop: 08/03/25 00:49 Last Admin: 08/03/25 01:07 Dose: 1 mg Documented By: JACQUELINE Sodium Chloride (Normal Saline 0.9%) 1,000 mls @ 1,000 mls/hr IV BOLUS ONE Stop: 08/02/25 23:33 Last Infusion: 08/03/25 00:18 Dose: Infused Documented By: Admin: 08/02/25 22:52 Dose: 1,000 mls/hr Documented By: JACQUELINE Vital Signs Vital signs: Vital Signs - 8 hr 08/02/25 21:58 08/02/25 23:24 08/02/25 23:30 Temperature 98.6 F Pulse Rate 76 66 68 Respiratory Rate 16 Blood Pressure 97/53 L Pulse Oximetry 96 97 96 Oxygen Delivery Method Room Air Room Air Room Air 08/03/25 00:00 08/03/25 00:30 08/03/25 01:00 Temperature Pulse Rate 61 64 63 Respiratory Rate Blood Pressure Pulse Oximetry 97 96 97 Oxygen Delivery Method Room Air Room Air Room Air 08/03/25 01:30 08/03/25 02:00 08/03/25 02:01 Temperature Pulse Rate 67 61 66 Respiratory Rate Blood Pressure Pulse Oximetry 96 97 96 Oxygen Delivery Method Room Air 08/03/25 02:01 08/03/25 02:05 Temperature 97.9 F Pulse Rate 68 Respiratory Rate 18 Blood Pressure 97/52 L 98/68 Pulse Oximetry 96 Oxygen Delivery Method Room Air MDM - Back Pain/Injury Lab Data 08/02/25 22:15 08/02/25 22:15 Labs: Lab Results 08/02/25 Range/Units 22:15 WBC 10.9 (4.5-11.0) X10^3/uL RBC 3.82 L (4.5-5.9) X10^6/uL Hgb 9.8 L (13.5-17.5) g/dL Hct 28.8 L (41-53) % MCV 75.4 L (80-100) fL MCH 25.7 L (26-34) PG MCHC 34.1 (30-36) % RDW 18.1 H (11.6-14.8) % Plt Count 236 (150-400) X10^3/uL Neut % (Auto) Not Reportable Lymph % (Auto) Not Reportable [place] % (Auto) Not Reportable Eos % (Auto) Not Reportable Baso % (Auto) Not Reportable Lymph # (Auto) Not Reportable [place] # (Auto) Not Reportable Baso # (Auto) Not Reportable Total Counted 100 Seg Neutrophils % 41.0 (38-70) % Band Neutrophils % 2.0 L (3-7) % Lymphocytes % (Manual) 45.0 (25-45) % Atypical Lymphs % 1.0 H ( - 0) % Monocytes % (Manual) 10.0 (2-11) % Eosinophils % (Manual) 1.0 L (2-4) % Neutrophils # (Manual) 4687 (0129-4602) /uL Nucleated RBCs 2 H ( - 0) #/Diff RBC Morphology See below Anisocytosis 2+ H Sickle Cells 1+ H Target Cells 2+ H Tear Drop Cells 1+ H Acanthocytes (Spur) 1+ Schistocytes 1+ H Percent Retic 6.8 H (0.9-2.6) % Sodium 140 (137-145) mmol/L Potassium 3.6 (3.4-5.1) mmol/L Chloride 106 (98-107) mmol/L Carbon Dioxide 23 (22-32) mmol/L BUN 8 L (9-20) mg/dL Creatinine 0.68 (0.66-1.25) mg/dL Estimated GFR > 60 (>60) mL/min BUN/Creatinine Ratio 11.8 (6-22) Glucose 106 H (70-99) mg/dL Calcium 8.3 L (8.4-10.2) mg/dL Total Bilirubin 3.1 H (0.2-1.3) mg/dL AST 60 H (17-59) IU/L ALT 41 (<50) IU/L Alkaline Phosphatase 73 (38-126) U/L Total Protein 8.2 (6.3-8.2) g/dL Albumin 4.7 (3.5-5.0) g/dL Globulin 3.5 (1.7-4.1) g/dL Albumin/Globulin Ratio 1.3 (1.0-2.8) MDM Narrative Medical decision making narrative: 24-year-old male with known sickle cell presents with potential crisis. His symptoms are improved after fluids and 2 doses of Dilaudid. He does have a hem/oncologist now and also a pain specialist. He will follow up with both and advised to follow up here sooner if pain is still not controlled. He just ran out of pain medications this time around. Advised to make sure to stay adequately ahead of pain. Discharge Plan Departure Patient Disposition: Home Clinical Impression: Sickle cell anemia with pain Instructions: DI for Sickle Cell Anemia, Pain Crisis -- Adult Activity Restrictions/Additional Instructions: Follow up with heme oncologist and pain specialist as planned already. Prescriptions: No Action benzonatate 200 mg capsule 200 mg PO TID PRN (Reason: cough) Qty: 30 0RF guaifenesin 1,200 mg tablet extended release 12hr 1,200 mg PO Q12H Qty: 30 0RF cholecalciferol (vitamin D3) 10 mcg (400 unit) capsule 20 mcg PO DAILY Qty: 180 0RF Rx Instructions: Start two capsules daily after 6 weeks of 1250mcg weekly dosing. duloxetine 60 mg capsule,delayed release(DR/EC) 60 mg PO DAILY Qty: 90 2RF albuterol sulfate 90 mcg/actuation HFA aerosol inhaler 2 puff inhalation Q6H PRN (Reason: wheezing) hydroxyurea 500 mg capsule 500 mg PO DAILY Qty: 30 0RF oxycodone 5 mg Tablet 5 mg PO Q3H PRN (Reason: Pain, Moderate (4-6)) Qty: 15 0RF benzonatate 200 mg capsule 200 mg PO TID PRN (Reason: cough) Qty: 30 0RF methocarbamol 750 mg tablet 750 mg PO Q8H PRN (Reason: muscle spasm) Qty: 20 0RF lidocaine 5 % adhesive patch,medicated 1 patch topical DAILY PRN (Reason: pain (scale score 1-3)) Qty: 30 0RF Rx Instructions: leave on most painful area for up to 12 hrs Stand Alone Forms: Patient Portal/API
[2025-08-02] MEDS: SODIUM CHLORIDE 0.9% 1,000 ML 1000 ML IV (22:52)
[2025-08-02 23:24] VITALS: PULSE 66; O2SAT 97
[2025-08-02 23:30] VITALS: PULSE 68; O2SAT 96
[2025-08-03] VITALS (7 sets, daily range): BP systolic 97–98; BP diastolic 52–68; PULSE 61–68; RESP 18; TEMP 36.6; O2SAT 96–97
[2025-08-03 01:47] LABS: Reticulocyte Count, Percent 6.8 % (0.9-2.6)
[2025-08-03 01:57] LABS: Hematocrit 28.8 % (41-53); Hemoglobin 9.8 g/dL (13.5-17.5); Mean Corpuscular HGB Conc 34.1 % (30-36); Mean Corpuscular Hemoglobin 25.7 PG (26-34); Mean Corpuscular Volume 75.4 fL (80-100); Platelet Count 236 X10^3/uL (150-400)
[2025-08-03 01:58] LABS: Add Manual Diff / Slide Review YES
[2025-08-03 01:59] LABS: Alanine Aminotransferase 41 IU/L (<50); Albumin 4.7 g/dL (3.5-5.0); Albumin Globulin Ratio 1.3 (1.0-2.8); Alkaline Phosphatase 73 U/L (38-126); Blood Urea Nitrogen 8 mg/dL (9-20); Calcium 8.3 mg/dL (8.4-10.2); Carbon Dioxide 23 mmol/L (22-32); Chloride 106 mmol/L (98-107); Estimated Glomerular Filt Rate > 60 mL/min (>60); Globulin 3.5 g/dL (1.7-4.1); Glucose 106 mg/dL (70-99); HEMOLYSIS < 15 (0-50); Potassium 3.6 mmol/L (3.4-5.1); Sodium 140 mmol/L (137-145); Total Protein 8.2 g/dL (6.3-8.2)
[2025-08-03 02:04] LABS: Atypical Lymphocytes Percent 1.0 %; Band Neutrophils Percent 2.0 % (3-7); Eosinophils Percent Manual 1.0 % (2-4); Lymphocytes Percent Manual 45.0 % (25-45); Monocytes Percent Manual 10.0 % (2-11); Neutrophils Absolute Manual 4687 /uL (3000-5900); Segmented Neutrophils Percent 41.0 % (38-70); Total Cells Counted 100
[2025-08-03 02:05] LABS: Anisocytosis 2+; Schistocytes 1+; Sickle Cells 1+; Target Cells 2+; Tear Drop Cells 1+
[2025-08-03 02:08] LABS: Acanthocytes 1+
== END 2025-08-03 02:12 | disposition home or self-care (01) ==
PROVIDERS: Emergency Provider Family Medicine
DX: D57.00 Hb-SS disease with crisis, unspecified (principal)
CPT/HCPCS: 80053; 85007; 85025; 85045; 96374; 96375; 99283; 99284; J1171; J7030

== ENCOUNTER 2025-08-04 10:32 | Emergency (ER) | payer SELFPAY ==
[2025-06-07 14:47] VITALS: BMI 18.6
[2025-08-04 10:49] VITALS: BP 110/64; PULSE 69; RESP 17; TEMP 36.6; O2SAT 99; BMI 18.6
--- NOTE | 2025-08-04 12:00 | ED.BACK ---
HPI - Back Pain/Injury General Chief Complaint: Back Pain/Injury Stated Complaint: Pain in legs and lower back 3 days Time Seen by Provider: 08/04/25 11:10 Source: patient, RN notes reviewed and old records reviewed Mode of arrival: Ambulatory Limitations: no limitations History of Present Illness HPI Narrative: 24-year-old male past medical history sickle cell disease, childhood stroke with left-sided hemiparesis, prior splenectomy presents with a complaint of back and leg pain. Patient states with the change in weather and colder weather he has been noticing he has been having little bit more pain over the last 2 or 3 days. Patient states he did turn as he had her on he states sometimes that is helpful but was still having discomfort so elected to come for evaluation. Denies fevers, denies chest pain or shortness of breath. No nausea or vomiting. No other GI or urinary symptoms no diarrhea or constipation, no difficulty with urination. Patient states that has feels like his typical sickle cell symptoms. He notes that occasionally his right hip has a little bit uncomfortable particularly when he goes from sitting to standing that is occasional sometimes radiates down his leg but has not been persistent. He has had a prior right hip prosthesis remotely. Patient has a established with the tax services professional he has not appointment on August 18. He has not had any recent medication changes. No known drug allergies. Related Data Home Medications ?Medication ?Instructions ?Recorded ?Confirmed albuterol sulfate 90 mcg/actuation 2 puff inhalation Q6H PRN wheezing 11/18/24 06/17/25 aerosol inhaler Previous Rx's ?Medication ?Instructions ?Recorded cholecalciferol (vitamin D3) 10 20 mcg (2 x 10 mcg (400 unit)) PO 10/25/24 mcg (400 unit) capsule DAILY #180 caps duloxetine 60 mg capsule,delayed 60 mg PO DAILY #90 caps 05/01/25 release lidocaine 5 % topical patch 1 patch topical DAILY PRN pain 05/30/25 (scale score 1-3) #30 ea methocarbamol 750 mg tablet 750 mg PO Q8H PRN muscle spasm #20 05/30/25 tabs hydroxyurea 500 mg capsule 500 mg PO DAILY #30 caps 06/09/25 oxycodone 5 mg tablet 5 mg PO Q3H PRN Pain, Moderate 06/10/25 (4-6) #15 tabs benzonatate 200 mg capsule 200 mg PO TID PRN cough #30 caps 06/17/25 benzonatate 200 mg capsule 200 mg PO TID PRN cough #30 caps 06/17/25 guaifenesin 1,200 mg tablet, 1,200 mg PO Q12H #30 tabs 06/17/25 extended release 12 hr Allergies Allergy/AdvReac Type Severity Reaction Status Date / Time No Known Drug Allergies Allergy Verified 07/19/25 00:23 Review of Systems Review of Systems ROS Unobtainable: All systems reviewed & are unremarkable except as noted in HPI and below Patient History Medical History History of CVA (cerebrovascular accident) Vitamin D deficiency PTSD (post-traumatic stress disorder) Depression Anxiety Seizure Anemia Avascular necrosis of bone Contracture, left elbow Contracture, left hand CVA (cerebral vascular accident) Sickle cell anemia Surgical History History of shoulder surgery 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 Family History Father Cancer Sickle cell trait Lupus Mother Sickle cell trait Brother Sickle cell trait Social History household members: significant other alcohol intake: current tobacco type: vaping alcohol intake frequency: holidays/special occasions only Exam Narrative Exam Narrative: GENERAL: Alert and oriented x three, appearing male in mild distress HEENT: Head normocephalic, atraumatic, EOMI, pupils reactive, face symmetric, moist mucous membranes NECK: Supple, full range of motion CARDIOVASCULAR: Regular rate and rhythm without murmurs, rubs or gallops. RESPIRATORY: Breath sounds equal bilaterally, no wheezes rales or rhonchi. ABDOMEN: Soft, nontender. Normoactive bowel sounds all 4 quadrants. No guarding or rebound, rigidity, no mass : No CVA tenderness EXTREMITIES: Left-sided hemiparesis with a atrophy left upper extremity, no clubbing or edema. Neurovascularly intact. Right hip is nontender, full range of motion, no warmth erythema or skin changes. Normal muscle strength. NEUROLOGICAL: Cranial nerves II through XII grossly intact. Moving all extremities SKIN: Warm, dry, no petechiae, no rashes or lesions. Initial Vital Signs Initial Vital Signs: Vital Signs Temperature 98 F 08/04/25 10:49 Pulse Rate 69 08/04/25 10:49 Respiratory Rate 17 08/04/25 10:49 Blood Pressure 110/64 08/04/25 10:49 Pulse Oximetry 99 08/04/25 10:49 Oxygen Delivery Method Room Air 08/04/25 10:49 Course Orders Ordered: ED Orders 08/04/25 12:09 CBC Auto Diff [Complete Blood Count AUTO DIFF] Stat CMP [Comprehensive Metabolic Panel] Stat RETIC [Reticulocyte Count, Percent] Stat 08/04/25 12:20 XR hip w pel RT 2V Stat Discontinued Medications Hydromorphone HCl (Hydromorphone 1 Mg/Ml Syringe) 1 mg IV NOW ONE Stop: 08/04/25 11:11 Last Admin: 08/04/25 12:05 Dose: 1 mg Documented By: DERIAN Hydromorphone HCl (Hydromorphone 1 Mg/Ml Syringe) 1 mg IV NOW ONE Stop: 08/04/25 12:58 Last Admin: 08/04/25 13:03 Dose: 1 mg Documented By: DERIAN Sodium Chloride (Normal Saline 0.9%) 1,000 mls @ 1,000 mls/hr IV BOLUS ONE Stop: 08/04/25 12:09 Last Infusion: 08/04/25 13:03 Dose: Infused Documented By: Admin: 08/04/25 12:05 Dose: 1,000 mls/hr Documented By: DERIAN Oxycodone/Acetaminophen (Oxycodone/Acetaminophen 5/325 Tablet) 2 tab PO NOW ONE Stop: 08/04/25 13:50 Last Admin: 08/04/25 14:03 Dose: 2 tab Documented By: MECHE Vital Signs Vital signs: Vital Signs - 8 hr 08/04/25 10:49 08/04/25 12:30 08/04/25 13:00 Temperature 98 F Pulse Rate 69 75 66 Respiratory Rate 17 16 Blood Pressure 110/64 Pulse Oximetry 99 95 95 Oxygen Delivery Method Room Air Room Air 08/04/25 13:06 08/04/25 13:30 Temperature Pulse Rate 72 74 Respiratory Rate 16 Blood Pressure 108/63 112/56 L Pulse Oximetry 95 97 Oxygen Delivery Method Room Air MDM - Back Pain/Injury Lab Data 08/04/25 12:09 12/22/25 12:09 Labs: Lab Results 08/04/25 Range/Units 12:09 WBC 9.7 (4.5-11.0) X10^3/uL RBC 3.88 L (4.5-5.9) X10^6/uL Hgb 9.8 L (13.5-17.5) g/dL Hct 28.6 L (41-53) % MCV 73.9 L (80-100) fL MCH 25.2 L (26-34) PG MCHC 34.1 (30-36) % RDW 18.4 H (11.6-14.8) % Plt Count 255 (150-400) X10^3/uL Neut % (Auto) Not Reportable Lymph % (Auto) Not Reportable [place] % (Auto) Not Reportable Eos % (Auto) Not Reportable Baso % (Auto) Not Reportable Neut # (Auto) Not Reportable Lymph # (Auto) Not Reportable [place] # (Auto) Not Reportable Eos # (Auto) Not Reportable Baso # (Auto) Not Reportable Total Counted 100 Seg Neutrophils % 52.0 (38-70) % Band Neutrophils % 1.0 L (3-7) % Lymphocytes % (Manual) 31.0 (25-45) % Atypical Lymphs % 2.0 H ( - 0) % Monocytes % (Manual) 13.0 H (2-11) % Basophils % (Manual) 1.0 (0-1) % Neutrophils # (Manual) 5141 (9177-1013) /uL Nucleated RBCs 3 H ( - 0) #/Diff Smudge Cells 2+ H Plt Morphology Comment RBC Morphology See below Hypochromasia 2+ H Anisocytosis 2+ H Microcytosis 2+ H Sickle Cells 2+ H Target Cells 2+ H Ovalocytes 2+ H Schistocytes 1+ H Percent Retic 7.2 H (0.9-2.6) % Sodium 140 (137-145) mmol/L Potassium 3.8 (3.4-5.1) mmol/L Chloride 108 H (98-107) mmol/L Carbon Dioxide 23 (22-32) mmol/L BUN 7 L (9-20) mg/dL Creatinine 0.56 L (0.66-1.25) mg/dL Estimated GFR > 60 (>60) mL/min BUN/Creatinine Ratio 12.5 (6-22) Glucose 87 (70-99) mg/dL Calcium 8.4 (8.4-10.2) mg/dL Total Bilirubin 3.7 H (0.2-1.3) mg/dL AST 55 (17-59) IU/L ALT 33 (<50) IU/L Alkaline Phosphatase 80 (38-126) U/L Total Protein 8.2 (6.3-8.2) g/dL Albumin 4.7 (3.5-5.0) g/dL Globulin 3.5 (1.7-4.1) g/dL Albumin/Globulin Ratio 1.3 (1.0-2.8) MDM Narrative Medical decision making narrative: Labs show normal white count at 9.7 hemoglobin is 9.8 consistent with priors platelets are 255, patient has a predominance of monocytes today with a atypical lymphocytes. Reticulocyte count 7.2%. Chloride is 108 BUN 7 with a creatinine of 0.56 total bilirubin is 3.7. Right hip x-ray, no acute osseous abnormality status post right hip arthroplasty without evidence of hardware complication. Table degenerative appearance of the left hip. 24-year-old male with a history of known sickle cell with recurrent visits patient states symptoms feel very similar to his usual. He does note occasional right hip pain particularly with movement or ambulation. Though he has been ambulating on it without issue. Patient has had a prior right hip replacement we will go ahead and obtain imaging. Patient received fluids, pain medication. On rechecked patient is feeling improved reviewed all of his labs and imaging. Feels comfortable with discharge home but does ask for additional dose of pain medication. Discussed IV versus p.o. he looks for oral medication. Discharge Plan Departure Patient Disposition: Home Clinical Impression: Sickle cell disease with crisis Activity Restrictions/Additional Instructions: Follow up with your tax services professional. Please return to the emergency department if you have any fevers, worsening pain, severe headaches sudden vision changes, new chest pain or shortness of breath, lightheadedness or passing out, persistent vomiting, new swelling in extremities or other new or concerning changes. Prescriptions: No Action benzonatate 200 mg capsule 200 mg PO TID PRN (Reason: cough) Qty: 30 0RF guaifenesin 1,200 mg tablet extended release 12hr 1,200 mg PO Q12H Qty: 30 0RF cholecalciferol (vitamin D3) 10 mcg (400 unit) capsule 20 mcg PO DAILY Qty: 180 0RF Rx Instructions: Start two capsules daily after 6 weeks of 1250mcg weekly dosing. duloxetine 60 mg capsule,delayed release(DR/EC) 60 mg PO DAILY Qty: 90 2RF albuterol sulfate 90 mcg/actuation HFA aerosol inhaler 2 puff inhalation Q6H PRN (Reason: wheezing) hydroxyurea 500 mg capsule 500 mg PO DAILY Qty: 30 0RF oxycodone 5 mg Tablet 5 mg PO Q3H PRN (Reason: Pain, Moderate (4-6)) Qty: 15 0RF benzonatate 200 mg capsule 200 mg PO TID PRN (Reason: cough) Qty: 30 0RF methocarbamol 750 mg tablet 750 mg PO Q8H PRN (Reason: muscle spasm) Qty: 20 0RF lidocaine 5 % adhesive patch,medicated 1 patch topical DAILY PRN (Reason: pain (scale score 1-3)) Qty: 30 0RF Rx Instructions: leave on most painful area for up to 12 hrs Stand Alone Forms: Patient Portal/API
[2025-08-04] MEDS: SODIUM CHLORIDE 0.9% 1,000 ML 1000 ML IV (12:05)
--- NOTE | 2025-08-04 12:20 | DI.RAD.S_ITS ---
PROCEDURE: XR HIP W PEL IF DONE RT 2V INDICATIONS: occasional R hip pain, hx of R hip sx, hx sickle cell TECHNIQUE: AP pelvis with lateral view(s) of the right hip(s). COMPARISON: [facility], , XR HIP W PEL IF DONE RT 2V, 09/17/2023, 17:14. FINDINGS: Bones: Status post right hip arthroplasty with prosthetic elements in appropriate position. No evidence of hardware complication. Similar bony irregularity along the right inferior acetabulum with mildly increased adjacent heterotopic calcifications. Moderate to severe left hip degenerative changes with chronic deformity of the femoral head. No acute fractures or dislocation. Pelvic ring appears intact. Soft tissues: The visualized bowel gas pattern is normal. No suspicious soft tissue calcifications. IMPRESSION: No acute osseous abnormality. Status post right hip arthroplasty without evidence of hardware complication. Stable degenerative appearance of the left hip. Approved by: Alisha Finley M.D.,Ph.D. on 08/04/2025 at 12:59
[2025-08-04 12:24] LABS: Hematocrit 28.6 % (41-53); Hemoglobin 9.8 g/dL (13.5-17.5); Mean Corpuscular HGB Conc 34.1 % (30-36); Mean Corpuscular Hemoglobin 25.2 PG (26-34); Mean Corpuscular Volume 73.9 fL (80-100); Platelet Count 255 X10^3/uL (150-400)
[2025-08-04 12:30] VITALS: PULSE 75; RESP 16; O2SAT 95
[2025-08-04 12:31] LABS: Add Manual Diff / Slide Review YES
[2025-08-04 12:32] LABS: Alanine Aminotransferase 33 IU/L (<50); Albumin 4.7 g/dL (3.5-5.0); Albumin Globulin Ratio 1.3 (1.0-2.8); Alkaline Phosphatase 80 U/L (38-126); Blood Urea Nitrogen 7 mg/dL (9-20); Calcium 8.4 mg/dL (8.4-10.2); Carbon Dioxide 23 mmol/L (22-32); Chloride 108 mmol/L (98-107); Estimated Glomerular Filt Rate > 60 mL/min (>60); Globulin 3.5 g/dL (1.7-4.1); Glucose 87 mg/dL (70-99); HEMOLYSIS < 15 (0-50); Potassium 3.8 mmol/L (3.4-5.1); Reticulocyte Count, Percent 7.2 % (0.9-2.6); Sodium 140 mmol/L (137-145); Total Protein 8.2 g/dL (6.3-8.2)
[2025-08-04 12:55] LABS: Atypical Lymphocytes Percent 2.0 %; Band Neutrophils Percent 1.0 % (3-7); Basophils Percent Manual 1.0 % (0-1); Lymphocytes Percent Manual 31.0 % (25-45); Monocytes Percent Manual 13.0 % (2-11); Neutrophils Absolute Manual 5141 /uL (3000-5900); Segmented Neutrophils Percent 52.0 % (38-70); Total Cells Counted 100
[2025-08-04 12:57] LABS: Anisocytosis 2+; Hypochromasia 2+; Ovalocytes 2+; Schistocytes 1+; Sickle Cells 2+; Target Cells 2+
[2025-08-04 12:58] LABS: Microcytosis 2+; Smudge Cells 2+
[2025-08-04 13:00] VITALS: PULSE 66; O2SAT 95
[2025-08-04 13:06] VITALS: BP 108/63; PULSE 72; O2SAT 95
[2025-08-04 13:30] VITALS: BP 112/56; PULSE 74; RESP 16; O2SAT 97
== END 2025-08-04 14:09 | disposition home or self-care (01) ==
PROVIDERS: Emergency Provider Emergency Medicine
DX: D57.819 Other sickle-cell disorders with crisis, unspecified (principal); M54.50 Low back pain, unspecified; R11.2 Nausea with vomiting, unspecified
CPT/HCPCS: 36415; 73502; 80053; 85007; 85025; 85045; 96361; 96374; 96376; 99284; J1171; J7030

== ENCOUNTER 2025-08-04 20:56 | Emergency (ER) | payer SELFPAY ==
[2025-06-07 14:47] VITALS: BMI 18.6
[2025-08-04 21:18] VITALS: BP 104/58; PULSE 73; RESP 16; TEMP 36.3; O2SAT 99; BMI 18.6
[2025-08-04 21:38] VITALS: BP 111/59; PULSE 61; RESP 22; O2SAT 97
--- NOTE | 2025-08-04 21:41 | ED.BACK ---
HPI - Back Pain/Injury General Chief Complaint: Back Pain/Injury Stated Complaint: n/v /body aches x 3 days Time Seen by Provider: 08/04/25 20:59 Source: patient History of Present Illness HPI Narrative: 24-year-old gentleman past medical history of sickle cell disease, childhood stroke with left-sided hemiparesis, prior splenectomy, seen earlier today for sickle cell disease with crisis started to have n/v/d after he left your earlier after he tried to eat and also having low back pain has been using his Zofran without complete relief of his symptoms. He denies abd pain but is having low back pain from before. Denies urinary complaints, hematuria, testicular pain, penile discharge, chest pain, sob, [place]. Other than what is stated 14 pt ROS is negative. Related Data Home Medications ?Medication ?Instructions ?Recorded ?Confirmed albuterol sulfate 90 mcg/actuation 2 puff inhalation Q6H PRN wheezing 11/18/24 06/17/25 aerosol inhaler Previous Rx's ?Medication ?Instructions ?Recorded cholecalciferol (vitamin D3) 10 20 mcg (2 x 10 mcg (400 unit)) PO 10/25/24 mcg (400 unit) capsule DAILY #180 caps duloxetine 60 mg capsule,delayed 60 mg PO DAILY #90 caps 05/01/25 release lidocaine 5 % topical patch 1 patch topical DAILY PRN pain 05/30/25 (scale score 1-3) #30 ea methocarbamol 750 mg tablet 750 mg PO Q8H PRN muscle spasm #20 05/30/25 tabs hydroxyurea 500 mg capsule 500 mg PO DAILY #30 caps 06/09/25 oxycodone 5 mg tablet 5 mg PO Q3H PRN Pain, Moderate 06/10/25 (4-6) #15 tabs benzonatate 200 mg capsule 200 mg PO TID PRN cough #30 caps 06/17/25 benzonatate 200 mg capsule 200 mg PO TID PRN cough #30 caps 06/17/25 guaifenesin 1,200 mg tablet, 1,200 mg PO Q12H #30 tabs 06/17/25 extended release 12 hr Allergies Allergy/AdvReac Type Severity Reaction Status Date / Time No Known Drug Allergies Allergy Verified 07/19/25 00:23 Patient History Medical History History of CVA (cerebrovascular accident) Vitamin D deficiency PTSD (post-traumatic stress disorder) Depression Anxiety Seizure Anemia Avascular necrosis of bone Contracture, left elbow Contracture, left hand CVA (cerebral vascular accident) Sickle cell anemia Surgical History History of shoulder surgery 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 Family History Father Cancer Sickle cell trait Lupus Mother Sickle cell trait Brother Sickle cell trait Social History household members: significant other alcohol intake: current tobacco type: vaping alcohol intake frequency: holidays/special occasions only Exam Initial Vital Signs Initial Vital Signs: Vital Signs Temperature 97.3 F L 08/04/25 21:18 Pulse Rate 73 08/04/25 21:18 Respiratory Rate 16 08/04/25 21:18 Blood Pressure 104/58 L 08/04/25 21:18 Pulse Oximetry 99 08/04/25 21:18 Oxygen Delivery Method Room Air 08/04/25 21:18 Course Vital Signs Vital signs: Vital Signs - 8 hr 08/04/25 21:18 Temperature 97.3 F L Pulse Rate 73 Respiratory Rate 16 Blood Pressure 104/58 L Pulse Oximetry 99 Oxygen Delivery Method Room Air MDM - Back Pain/Injury MDM Narrative Medical decision making narrative: All lab work, vital signs, nurse triage note, medication list, previous ER visits, and all imaging studies reviewed. WBC 11 hemoglobin 9.6 platelets 254 retic count 6.9 from 7.2 earlier today. sodium 139 potassium 3.3 BUN 5 creatinine 0.6 glucose 106 patient has received lactated Ringer's 1 L bolus x2, Dilaudid 0.5 mg IV x2, potassium solution 40 mEq x1. Pt s/o to at shift change pending final disposition. Discharge Plan Departure Prescriptions: No Action benzonatate 200 mg capsule 200 mg PO TID PRN (Reason: cough) Qty: 30 0RF guaifenesin 1,200 mg tablet extended release 12hr 1,200 mg PO Q12H Qty: 30 0RF cholecalciferol (vitamin D3) 10 mcg (400 unit) capsule 20 mcg PO DAILY Qty: 180 0RF Rx Instructions: Start two capsules daily after 6 weeks of 1250mcg weekly dosing. duloxetine 60 mg capsule,delayed release(DR/EC) 60 mg PO DAILY Qty: 90 2RF albuterol sulfate 90 mcg/actuation HFA aerosol inhaler 2 puff inhalation Q6H PRN (Reason: wheezing) hydroxyurea 500 mg capsule 500 mg PO DAILY Qty: 30 0RF oxycodone 5 mg Tablet 5 mg PO Q3H PRN (Reason: Pain, Moderate (4-6)) Qty: 15 0RF benzonatate 200 mg capsule 200 mg PO TID PRN (Reason: cough) Qty: 30 0RF methocarbamol 750 mg tablet 750 mg PO Q8H PRN (Reason: muscle spasm) Qty: 20 0RF lidocaine 5 % adhesive patch,medicated 1 patch topical DAILY PRN (Reason: pain (scale score 1-3)) Qty: 30 0RF Rx Instructions: leave on most painful area for up to 12 hrs
[2025-08-04] MEDS: LACTATED RINGERS 1,000 ML 1000 ML IV ×2 (21:52→22:39)
[2025-08-04] MEDS: ONDANSETRON 4 MG/2 ML INJ IV (21:52)
[2025-08-04 21:57] LABS: Hematocrit 28.5 % (41-53); Hemoglobin 9.6 g/dL (13.5-17.5); Mean Corpuscular HGB Conc 33.8 % (30-36); Mean Corpuscular Hemoglobin 25.1 PG (26-34); Mean Corpuscular Volume 74.2 fL (80-100); Platelet Count 254 X10^3/uL (150-400)
[2025-08-04 21:58] LABS: Add Manual Diff / Slide Review YES; Alanine Aminotransferase 32 IU/L (<50); Albumin 4.4 g/dL (3.5-5.0); Albumin Globulin Ratio 1.3 (1.0-2.8); Alkaline Phosphatase 66 U/L (38-126); Blood Urea Nitrogen 5 mg/dL (9-20); Calcium 8.8 mg/dL (8.4-10.2); Carbon Dioxide 25 mmol/L (22-32); Chloride 106 mmol/L (98-107); Estimated Glomerular Filt Rate > 60 mL/min (>60); Globulin 3.3 g/dL (1.7-4.1); Glucose 106 mg/dL (70-99); HEMOLYSIS < 15 (0-50); Potassium 3.3 mmol/L (3.4-5.1); Sodium 139 mmol/L (137-145); Total Protein 7.7 g/dL (6.3-8.2)
[2025-08-04 22:00] VITALS: BP 94/65; PULSE 63; RESP 20; O2SAT 96
[2025-08-04 22:13] LABS: Reticulocyte Count, Percent 6.9 % (0.9-2.6)
[2025-08-04 22:19] LABS: Eosinophils Percent Manual 2.0 % (2-4); Lymphocytes Percent Manual 49.0 % (25-45); Monocytes Percent Manual 6.0 % (2-11); Neutrophils Absolute Manual 4730 /uL (3000-5900); Segmented Neutrophils Percent 43.0 % (38-70); Total Cells Counted 100
[2025-08-04 22:26] LABS: Acanthocytes 1+; Poikilocytosis 1+
[2025-08-04 22:27] LABS: Target Cells 1+
[2025-08-04 22:28] LABS: Schistocytes 1+; Sickle Cells 1+
[2025-08-04 22:30] VITALS: BP 106/65; PULSE 61; RESP 22; O2SAT 94
[2025-08-04 23:00] VITALS: BP 113/69; PULSE 65; O2SAT 92
[2025-08-04] MEDS: POTASSIUM CHLORIDE 20 MEQ/15 ML UDC 40 MEQ PO (23:05)
[2025-08-04 23:30] VITALS: BP 112/56; PULSE 68; O2SAT 94
[2025-08-05] VITALS: BP 113/69; PULSE 70; RESP 22; O2SAT 94
[2025-08-05 00:30] VITALS: BP 109/72; PULSE 68; RESP 22; O2SAT 92
[2025-08-05 01:00] VITALS: BP 121/66; PULSE 58; RESP 20; O2SAT 93
== END 2025-08-05 01:25 | disposition home or self-care (01) ==
PROVIDERS: Family Medicine; Emergency Provider Family Medicine
DX: D57.00 Hb-SS disease with crisis, unspecified (principal); R19.7 Diarrhea, unspecified; I69.352 Hemiplegia and hemiparesis following cerebral infarction affecting left dominant side
CPT/HCPCS: 36415; 80053; 85007; 85025; 85045; 96361; 96374; 96375; 96376; 99284; J1171; J2405; J7120

== ENCOUNTER 2025-08-08 10:15 | Emergency (ER) | payer SELFPAY ==
[2025-06-07 14:47] VITALS: BMI 18.6
[2025-08-08 10:34] VITALS: BP 120/65; PULSE 90; RESP 18; TEMP 36.6; O2SAT 99; BMI 18.6
--- NOTE | 2025-08-08 10:34 | ED.GENADULT ---
HPI - General Adult General Chief complaint: Upper Respiratory Symptoms Stated complaint: Cough and achy body. 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 Son has similar complaints not seen anyone for this. He is fully immunized and denies any fever, chills, body aches, nausea, vomiting, diarrhea, rash, sore throat, chest pain, back pain. Other than what is stated 14 point review system is negative. Related Data Home Medications ?Medication ?Instructions ?Recorded ?Confirmed albuterol sulfate 90 mcg/actuation 2 puff inhalation Q6H PRN wheezing 11/18/24 06/17/25 aerosol inhaler Previous Rx's ?Medication ?Instructions ?Recorded cholecalciferol (vitamin D3) 10 20 mcg (2 x 10 mcg (400 unit)) PO 10/25/24 mcg (400 unit) capsule DAILY #180 caps duloxetine 60 mg capsule,delayed 60 mg PO DAILY #90 caps 05/01/25 release lidocaine 5 % topical patch 1 patch topical DAILY PRN pain 05/30/25 (scale score 1-3) #30 ea methocarbamol 750 mg tablet 750 mg PO Q8H PRN muscle spasm #20 05/30/25 tabs hydroxyurea 500 mg capsule 500 mg PO DAILY #30 caps 06/09/25 oxycodone 5 mg tablet 5 mg PO Q3H PRN Pain, Moderate 06/10/25 (4-6) #15 tabs benzonatate 200 mg capsule 200 mg PO TID PRN cough #30 caps 06/17/25 benzonatate 200 mg capsule 200 mg PO TID PRN cough #30 caps 06/17/25 guaifenesin 1,200 mg tablet, 1,200 mg PO Q12H #30 tabs 06/17/25 extended release 12 hr albuterol sulfate 90 mcg/actuation 1 inh inhalation Q4-6H PRN 08/08/25 breath activated powder inhaler shortness of breath or wheezing #1 ea benzonatate 200 mg capsule 200 mg PO TID PRN cough #30 caps 08/08/25 prednisone 20 mg tablet 20 mg PO BID #10 tabs 08/08/25 Allergies Allergy/AdvReac Type Severity Reaction Status Date / Time No Known Drug Allergies Allergy Verified 07/19/25 00:23 Review of Systems Review of Systems ROS Unobtainable: All systems reviewed & are unremarkable except as noted in HPI and below Patient History Medical History History of CVA (cerebrovascular accident) Vitamin D deficiency PTSD (post-traumatic stress disorder) Depression Anxiety Seizure Anemia Avascular necrosis of bone Contracture, left elbow Contracture, left hand CVA (cerebral vascular accident) Sickle cell anemia Surgical History History of shoulder surgery 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 Family History Father Cancer Sickle cell trait Lupus Mother Sickle cell trait Brother Sickle cell trait Social History household members: significant other alcohol intake: current tobacco type: vaping alcohol intake frequency: holidays/special occasions only Exam Narrative Exam Narrative: GENERAL: [24] year old patient appears stated age. Well-developed patient, in mild distress. HEAD: Atraumatic. Normocephalic. EYES: Pupils equal round and reactive. Extraocular motions intact. No scleral icterus. No injection or drainage. ENT: Nose without bleeding, purulent drainage. Throat without erythema, tonsillar hypertrophy or exudate. Airway patent. NECK: Trachea midline. Non tender CARDIOVASCULAR: Regular rate and rhythm without murmurs, gallops, or rubs. RESPIRATORY:Dec breath sounds with faint wheeze at base GASTROINTESTINAL: Abdomen soft, non-tender, nondistended. EXTREMITIES: No edema or joint tenderness. BACK: Nontender without deformity or crepitance. No flank tenderness. NEURO: AOx3. SKIN: No rash or erythema of visible areas Initial Vital Signs Initial Vital Signs: Vital Signs Temperature 97.9 F 08/08/25 10:34 Pulse Rate 90 08/08/25 10:34 Respiratory Rate 18 08/08/25 10:34 Blood Pressure 120/65 08/08/25 10:34 Pulse Oximetry 99 08/08/25 10:34 Oxygen Delivery Method Room Air 08/08/25 10:34 Course Orders Ordered: ED Orders 08/08/25 10:33 XR chest 2V Stat 08/08/25 10:36 Covid-19 + FLU A/B + RSV - PCR Stat Albuterol/Ipratropium (Albuterol/Ipratropium 3 Ml Ampul) 3 ml INH Q1H PRN PRN Reason: Shortness Of Breath Last Admin: 08/08/25 10:46 Dose: 3 ml Documented By: YESSYF Discontinued Medications Oxycodone HCl (Oxycodone Ir 5 Mg Tablet) 5 mg PO NOW ONE Stop: 08/08/25 12:01 Prednisone (Prednisone 20 Mg Tablet) 60 mg PO NOW ONE Stop: 08/08/25 10:34 Last Admin: 08/08/25 11:06 Dose: 60 mg Documented By: [facility] Vital Signs Vital signs: Vital Signs - 8 hr 08/08/25 10:34 08/08/25 10:46 08/08/25 11:59 Temperature 97.9 F Pulse Rate 90 102 H 86 Respiratory Rate 18 18 Blood Pressure 120/65 98/57 L Pulse Oximetry 99 100 99 Oxygen Delivery Method Room Air Room Air Room Air Medical Decision Making Lab Data Labs: Lab Results 08/08/25 Range/Units 10:36 SARS-CoV-2 (PCR) Negative (Negative) Influenza A (RT-PCR) Flu a negative (NEGATIVE) Influenza B (RT-PCR) Flu b negative (NEGATIVE) RSV (PCR) Negative (Negative) Imaging Data Chest x-ray: Radiologist's Impression: [address] [address] XRay Report Signed Patient: Lucretia Keller MR#: [id number] : 2000 Acct:[id number] Age/Sex: 24 / M Date of Service: 08/08/25 Loc: ED Accession Number: [id number] Procedure: XR chest 2V Ordering Provider: Kwan Jimenes D.O. PROCEDURE: XR CHEST 2V INDICATIONS: Cough TECHNIQUE: 2 views of the chest were acquired. [facility]. FINDINGS: Surgical changes and devices: None. Lungs and pleura: Lungs are clear. No pleural effusions or pneumothorax. Mediastinum: Mediastinal contours are normal. Heart size is normal. Bones and chest wall: No suspicious bony abnormalities. Soft tissues appear unremarkable. IMPRESSION: No acute cardiopulmonary abnormality is seen. Dictated by: Tl Dawkins M.D. on 08/08/2025 at 11:45 Approved by: Tl Dawkins M.D. on 08/08/2025 at 11:46 [facility] Narrative Medical decision making narrative: All lab work, vital signs, nurse triage note, medication list, previous ER visits, and all imaging studies reviewed. Chest x-ray showed no acute process. COVID flu RSV negative. Given prednisone 60 mg here. Will be discharged on prednisone Tessalon and albuterol inhaler. Discharge Plan Departure Patient Disposition: Home Clinical Impression: Acute bronchitis, viral Instructions: DI for Acute Bronchitis Activity Restrictions/Additional Instructions: Return with new or worsening symptoms. Take medicines as directed. Follow up with pcp next for re-evaluation if no improvement in symptoms. Prescriptions: New prednisone 20 mg tablet 20 mg PO BID Qty: 10 0RF albuterol sulfate 90 mcg/actuation aerosol powdr breath activated 1 inh inhalation Q4-6H PRN (Reason: shortness of breath or wheezing) Qty: 1 0RF benzonatate 200 mg capsule 200 mg PO TID PRN (Reason: cough) Qty: 30 0RF No Action benzonatate 200 mg capsule 200 mg PO TID PRN (Reason: cough) Qty: 30 0RF guaifenesin 1,200 mg tablet extended release 12hr 1,200 mg PO Q12H Qty: 30 0RF cholecalciferol (vitamin D3) 10 mcg (400 unit) capsule 20 mcg PO DAILY Qty: 180 0RF Rx Instructions: Start two capsules daily after 6 weeks of 1250mcg weekly dosing. duloxetine 60 mg capsule,delayed release(DR/EC) 60 mg PO DAILY Qty: 90 2RF albuterol sulfate 90 mcg/actuation HFA aerosol inhaler 2 puff inhalation Q6H PRN (Reason: wheezing) hydroxyurea 500 mg capsule 500 mg PO DAILY Qty: 30 0RF oxycodone 5 mg Tablet 5 mg PO Q3H PRN (Reason: Pain, Moderate (4-6)) Qty: 15 0RF benzonatate 200 mg capsule 200 mg PO TID PRN (Reason: cough) Qty: 30 0RF methocarbamol 750 mg tablet 750 mg PO Q8H PRN (Reason: muscle spasm) Qty: 20 0RF lidocaine 5 % adhesive patch,medicated 1 patch topical DAILY PRN (Reason: pain (scale score 1-3)) Qty: 30 0RF Rx Instructions: leave on most painful area for up to 12 hrs Stand Alone Forms: Patient Portal/API
[2025-08-08 10:46] VITALS: PULSE 102; RESP 18; O2SAT 100
[2025-08-08] MEDS: ALBUTEROL/IPRATROPIUM 3 ML AMPUL INH (10:46)
[2025-08-08 11:21] LABS: Influenza A - CEPHEID Flu A NEGATIVE (NEGATIVE); Influenza B - CEPHEID Flu B NEGATIVE (NEGATIVE)
[2025-08-08 11:34] LABS: COVID-19 CEPHEID 4-PLEX PCR Negative (Negative)
[2025-08-08 11:59] VITALS: BP 98/57; PULSE 86; O2SAT 99
== END 2025-08-08 12:40 | disposition home or self-care (01) ==
PROVIDERS: Emergency Provider Family Medicine
DX: J20.8 Acute bronchitis due to other specified organisms (principal); R06.02 Shortness of breath
CPT/HCPCS: 71046; 87637; 94150; 94640; 99283

== ENCOUNTER 2025-08-12 02:08 | Emergency (ER) | payer SELFPAY ==
[2025-06-07 14:47] VITALS: BMI 18.6
--- OUTSIDE RECORDS SUMMARY | 2025-08-12 02:10 | XMS_ITS | Clinical Summary ---
Author Organization [facility] Address [address] [place] [address] Care Team Providers Care Electronic Publishing Specialist Name Role Phone Jen Albarran MASON LINER Primary Care Provider [phone] Allergies Active Allergy Reactions Criticality Noted Date Comments Apple Other (see comments) Medium 05/30/2025 Perioral numbness Medications penicillin v potassium (VEETID) 250 mg tablet Take 1 tablet (250 mg total) by mouth 2 (two) times a day Active hydroxyurea (HYDREA) 500 mg capsule Take. 1 capsule (500 mg total) by mouth in the morning. Take at the same time each day.. Active folic acid (FOLVITE) 1 mg tablet Take 1 tablet (1 mg total) by mouth daily Active Active Problems Problem Noted Date Diagnosed Date Sickle cell crisis 06/01/2025 Encounters Date Type Department Care Team Description 05/30/2025 1:44 PM PDT - 06/05/2025 5:25 PM PDT Hospital Encounter [facility] Medical Observation Care Unit [address] [place] [address] Jaimie Pettit MD McCart, Corey, DO Hayes, Douglas, DO Pham, Michelle, MD Medina, Alejandro Jude, MD Sickle cell pain crisis (CMS/HCC) (Primary Dx) Discharge Disposition: Home/Self Care 05/30/2025 Travel 05/25/2025 1:04 PM PDT - 05/25/2025 3:[address] [facility] Emergency Department [address] [place] [address] Tyesha Melendez MD Sickle cell crisis (CMS/HCC) (Primary Dx) Discharge Disposition: Home/Self Care 05/25/2025 Travel 05/13/2025 12:05 PM PDT Lab [facility] [address] [place] [address] [place] [phone] Sickle cell disease with crisis and other complication (CMS/HCC) 05/13/2025 11:[address] [facility] Oncology [address], [address] [place] [address] Marilyn Painting MD Sickle cell disease with crisis and other complication (CMS/HCC) (Primary Dx) from Last 3 Months Family History Medical History Relation Comments Sickle cell trait Brother Cancer Father Lupus Father Sickle cell trait Father Sickle cell trait Mother Relation Status Comments Brother Father Mother Social History Tobacco Use Types Packs/Day Years Used Date Smoking Tobacco: Never Smokeless Tobacco: Never Tobacco Cessation:Counseling Given: Not Answered Alcohol Use Standard Drinks/Week Comments Never 0 (1 standard drink = 0.6 oz pur e alcohol) [facility] [employer] Answer Date Recorded In the past 12 months has e SupplyBetter, gas, oil, or water [employer] threatened to shut off services in your home? No 05/30/2025 Humiliation, Afraid, Rape, and Kick questionnair e Answer Date Recorded Within the last year, have y ou been afraid of your partner or ex-partner? No 05/30/2025 Within the last year, have y ou been humiliated or emotionally abused in other ways by your partner or ex-partner? No Within the last year, have y ou been kicked, hit, slapped, or otherwise physically hurt by your partner or ex-partner? No 05/30/2025 Within the last year, have y ou been raped or forced to have any kind of sexual activity by your partner or ex-partner? No 05/30/2025 AUDIT-C Answer Date Recorded Q1: How often do you have a drink containing alcohol? Never 05/30/2025 Q2: How many drinks containi ng alcohol do you have on a typical day when you are drinking? Patient does not drink Q3: How often do you have si x or more drinks on one occasion? Never 05/30/2025 Hunger Vital Sign Answer Date Recorded Within the past 12 months, y ou worried that your food would run out before you got the money to buy more. Never true 05/30/20 25 Within the past 12 months, t he food you bought just didn't last and you didn't have money to get more. Never true 05/30/2025 PRAPARE - Transportation Answer Date Re corded In the past 12 months, has l ack of transportation kept you from medical appointments or from getting medications? No 05/14 In the past 12 months, has l ack of transportation kept you from meetings, work, or from getting things needed for daily living? No 05/30/2025 Housing Stability Vital Sign Answer Herve e Recorded In the last 12 months, was t here a time when you were not able to pay the mortgage or rent on time? No 05/30/2025 Number of Times Moved in the Last Year Not on fi le 05/30/2025 At any time in the past 12 m [facility], were you homeless or living in a snf (including now)? No 05/30/2025 Sex and Gender Information Value Date Recorded Sex Assigned at Male 05/30/2025 8:50 PM PDT Legal Sex Male 1:19 PM PST Gender Identity Male 05/30/2025 8:50 PM PDT Sexual Orientation Straight 05/30/2025 8: 50 PM PDT Last Filed Vital Signs Vital Sign Reading Time Taken Comments Blood Pressure 129/72 06/05/2025 4:30 PM PDT Pulse 65 06/05/2025 4:30 PM PDT Temperature 36.9 C (98.4 F) 06/05/2025 4:30 PM PDT Respiratory Rate 20 06/05/2025 4:30 PM PDT Oxygen Saturation 99% 06/05/2025 4:30 PM PDT Inhaled Oxygen Concentration - - Weight 63.5 kg (140 lb) 05/30/2025 1:27 PM PDT Height 177.8 cm (5' 10) 05/30/2025 1:27 PM PDT Body Mass Index 20.09 05/30/2025 1:27 PM PDT Plan of Treatment Upcoming Encounters Date Type Department Care Team (Late st Contact Info) Description 08/18/2025 1:00 PM PST Lab [facility] [address] [place] [address], [address] [place] [phone] 08/18/2025 1:40 PM PST Office Visit [facility] [place] [address], [address] [place] [phone] Marilyn Painting MD [address] [place], [place] [id number] Health Maintenance Due Date Last Done Comments IPV Vaccines (2 of 3 - 4-dos e series) 08/01/2003 07/04/2003 HM Pneumococcal Combined Age 0-49 (2 of 2 - PCV) 09/07/2005 09/07/2004 Depression Screening (PHQ-2) 2010 Hepatitis A Vaccines (2 of 2 - 2-dose series) 01/22/2016 07/23/2015 HPV Vaccines (3 - Male 3-dos e series) 02/22/2016 11/30/2015, 07/23/2015 COVID-19 Vaccine (3 - Modern a risk series) 06/04/2021 05/07/2021, 04/09/2021 DTaP,Tdap,and Td Vaccines (3 - Td or Tdap) 06/30/2024 06/30/2014, 07/04/2003 Influenza Vaccine (#1) 2025 , 06/08/2016, 07/23/2015, Additional history exists RSV Patients Over 60 years O R qualifying ( Patients) (1 - 1-dose 75+ series) 2073 MMR Vaccines Completed 02/17/2015, 07/04/2003 Varicella Vaccines Completed 07/23/2015, 02/17/2015 Hepatitis B Vaccines Completed 11/30/2015, 07/23/2015, 02/17/2015 Procedures Procedure Name Priority Date/Time Associated Diagnosis Comments DISCHARGE PATIENT Routine 06/05/2025 4:3 4 PM PDT HEMOGLOBIN AND HEMATOCRIT Routine 06/05/2025 2:48 PM PDT YELLOW TOP- ACD Routine 06/05/2025 9:40 AM PDT BILIRUBIN, TOTAL AND DIRECT Routine 06/05/2025 9:40 AM PDT EXTRA TUBES Routine 06/05/2025 9:40 AM PDT HEMOGLOBIN AND HEMATOCRIT STAT 06/05/2025 9:40 AM PDT PREPARE/CROSSMATCH RBC STAT 6:55 AM PDT TYPE AND SCREEN Routine 06/05/2025 6:55 AM PDT BASIC METABOLIC PANEL Routine 06/05/2025 5:37 AM PDT COMPLETE BLOOD COUNT Routine 06/05/2025 5:37 AM PDT COMPLETE BLOOD COUNT WITH DIFF RESULT Routine 06/04/2025 2:32 AM PDT COMPREHENSIVE METABOLIC PANEL Routine 06/04/2025 2:32 AM PDT COMPLETE BLOOD COUNT WITH DIFF Routine 06/04/2025 2:32 AM PDT HEMOGLOBIN AND HEMATOCRIT Routine 06/03/2025 2:51 PM PDT COMPLETE BLOOD COUNT WITH DIFF RESULT Routine 06/03/2025 3:12 AM PDT COMPREHENSIVE METABOLIC PANEL Routine 06/03/2025 3:12 AM PDT COMPLETE BLOOD COUNT WITH DIFF Routine 06/03/2025 3:12 AM PDT COMPLETE BLOOD COUNT WITH DIFF RESULT Routine 06/02/2025 3:54 AM PDT COMPREHENSIVE METABOLIC PANEL Routine 06/02/2025 3:54 AM PDT COMPLETE BLOOD COUNT WITH DIFF Routine 06/02/2025 3:54 AM PDT COMPLETE BLOOD COUNT WITH DIFF RESULT Routine 06/01/2025 7:49 AM PDT BASIC METABOLIC PANEL Routine 06/01/2025 7:49 AM PDT COMPLETE BLOOD COUNT WITH DIFF Routine 06/01/2025 7:49 AM PDT HEMOGLOBIN AND HEMATOCRIT Routine 05/31/2025 2:42 PM PDT CULTURE, BLOOD Routine 05/31/2025 11:46 AM PDT CULTURE, BLOOD Routine 05/31/2025 11:46 AM PDT RESPIRATORY PCR PANEL (INCLUDES SARS-COV-2 (COVID-19)) STAT 05/31/2025 10:41 AM PDT COMPLETE BLOOD COUNT WITH DIFF RESULT Routine 05/31/2025 4:10 AM PDT COMPLETE BLOOD COUNT WITH DIFF Routine 05/31/2025 4:10 AM PDT BASIC METABOLIC PANEL Routine 05/31/2025 4:10 AM PDT ABO/RH TYPE CHECK (LAB ONLY) Routine 05/30/2025 10:32 PM PDT US VENOUS LOWER EXTREMITY DOPPLER BILATERAL Routine 05/30/2025 9:51 PM PDT TYPE AND SCREEN Routine 05/30/2025 9:16 PM PDT COMPLETE BLOOD COUNT WITH DIFF RESULT STAT 05/30/2025 2:04 PM PDT RETICULOCYTE COUNT STAT 05/30/2025 2: 04 PM PDT TROPONIN WITH REFLEX TO CK AND CK-MB STAT 05/30/2025 2:04 PM PDT COMPREHENSIVE METABOLIC PANEL STAT 05/30/2025 2:04 PM PDT COMPLETE BLOOD COUNT WITH DIFF STAT 05/30/2025 2:04 PM PDT ECG 12-LEAD STAT 05/30/2025 1:48 PM PDT XR CHEST 1 VIEW STAT 05/30/2025 1:47 PM PDT MANUAL DIFFERENTIAL Routine 05/25/2025 1 :18 PM PDT COMPLETE BLOOD COUNT WITH DIFF RESULT STAT 05/25/2025 1:18 PM PDT RETICULOCYTE COUNT STAT 05/25/2025 1: 18 PM PDT PROTHROMBIN TIME STAT 05/25/2025 1:18 PM PDT COMPLETE BLOOD COUNT WITH DIFF STAT 05/25/2025 1:18 PM PDT MANUAL DIFFERENTIAL Routine 05/13/2025 1 2:10 PM PDT Sickle cell disease with crisis and other complication (CMS/HCC) COMPLETE BLOOD COUNT WITH DIFF RESULT Routine 05/13/2025 12:10 PM PDT Sickle cell disease with crisis and other complication (CMS/HCC) [facility] REFLEX: HGB FRACTIONATION BY HPLC+SOLUBILITY Routine 05/13/2025 12:10 PM PDT Sickle cell disease with crisis and other complication (CMS/HCC) LDH, BLOOD Routine 05/13/2025 12:10 PM PDT Sickle cell disease with crisis and other complication (CMS/HCC) HAPTOGLOBIN Routine 05/13/2025 12:10 PM PDT Sickle cell disease with crisis and other complication (CMS/HCC) HEMOGLOBINOPATHY FRACTIONATION CASCADE Routine 05/13/2025 12:10 PM PDT Sickle cell disease with crisis and other complication (CMS/HCC) RETICULOCYTE COUNT Routine 05/13/2025 12 :10 PM PDT Sickle cell disease with crisis and other complication (CMS/HCC) VITAMIN B12 AND FOLATE Routine 12:10 PM PDT Sickle cell disease with crisis and other complication (CMS/HCC) IRON PROFILE Routine 05/13/2025 12:10 PM PDT Sickle cell disease with crisis and other complication (CMS/HCC) FERRITIN Routine 05/13/2025 12:10 PM PDT Sickle cell disease with crisis and other complication (CMS/HCC) COMPREHENSIVE METABOLIC PANEL Routine 05/13/2025 12:10 PM PDT Sickle cell disease with crisis and other complication (CMS/HCC) COMPLETE BLOOD COUNT WITH DIFF Routine 05/13/2025 12:10 PM PDT Sickle cell disease with crisis and other complication (CMS/HCC) from Last 3 Months Results * (ABNORMAL) Hemoglobin and hematocrit (06/05/2025 2:48 PM PDT) Only the most recent of4 resultswithin the time period is included. Hemoglobin 7.9(L) 13.8 - 17.2 g/dL 06/05/2025 3:45 PM PDT [facility] Hematocrit 22.4(L) 41.0 - 50.0 % 06/05/2025 3:45 PM PDT [facility] Blood Venous blood / Unknown Venipuncture / Unknown 06/05/2025 2:48 PM PDT 06/05/2025 3:01 PM PDT us Zeinab Russell MD LAB BLOOD ORDERABLES Final Resu lt [facility] [address] [place] [address], * Hold Gold Top - [facility] (06/05/2025 9:40 AM PDT) Extra Tube Hold for add-ons. 06/05/2025 11:01 AM PDT [facility] Comment:Auto resulted. Blood Venous blood / Unknown Venipuncture / Unknown 06/05/2025 9:40 AM PDT 06/05/2025 9:56 AM PDT us Ordering Provider LAB BLOOD ORDERABLES Final Res ult Performing Organization Address [facility]/ZIP Co de Phone Number [facility] [address] [place] [address], [place] [phone] * (ABNORMAL) Bilirubin, Profile (06/05/2025 9:40 AM PDT) Bilirubin, Total, Serum/Plasma 2.28(H) 0.2 - 1.3 mg/dL LAB CHEMISTRY METHOD 06/05/2025 12:01 PM PDT [facility] Comment:Differences in the v alues of total bilirubin vs. Bc + Bu are due to delta bilirubin, which is bound to albumin. Bilirubin, Unconjugated, Serum/Plasma 1.67(H) 0.0 - 1.1 mg/dL LAB CHEMISTRY METHOD 06/05/2025 12:01 PM PDT [facility] Bilirubin, Conjugated, Serum/Plasma <0.10 0.0 - 0.3 mg/dL LAB CHEMISTRY METHOD 06/05/2025 12:01 PM PDT [facility] Blood Venous blood / Unknown Venipuncture / Unknown 06/05/2025 9:40 AM PDT 06/05/2025 9:56 AM PDT us Zeinab Russell MD LAB BLOOD ORDERABLES Final Resu lt Performing Organization Address City/[facility]/ZIP Co de Phone Number [facility] [address] [place] [address], [place] [phone] * Prepare/Crossmatch RBC: 1 Units (06/05/2025 6:55 AM PDT) Unit Number [id number] [facility] Product Identification [id number] [facility] Product Blood Type (Readable) A POS [facility] Dispense Status Released [facility] Blood Product Unit Expiration Date [facility] Product Code [id number] [facility] Product Blood Type 6200 [facility] Blood Venous blood / Unknown 06/05/2025 6:55 AM PDT us Zeinab Russell MD BLOOD BANK PRODUCT ORDERABLES F inal Result Performing Organization Address [facility] de Phone Number [facility] [place] [address], * Type and screen (06/05/2025 6:55 AM PDT) Only the most recent of2 resultswithin the time period is included. ABORh A POS 06/05/2025 8:18 AM PDT [facility] Antibody Screen NEG 8:18 AM PDT [facility] Reflex to ABO/Rh Type Confirmation NO 06/05/2025 8:18 AM PDT [facility] Type and Screen Expiration Date 23:59 06/05/2025 8:18 AM PDT [facility] Blood Venous blood / Unknown Venipuncture / Unknown 06/05/2025 6:55 AM PDT 06/05/2025 7:42 AM PDT us Zeinab Russell MD LAB BLOOD BANK TEST ORDERABLES Final Result Performing Organization Address [facility] Phone Number [facility] [place] [address], * (ABNORMAL) Complete blood count without diff (06/05/2025 5:37 AM PDT) WBC Auto 9.8 3.8 - 10.1 x10e3/uL 06/05/2025 6:20 AM PDT [facility] RBC 2.80(L) 4.40 - 5.80 x10e6/uL 06/05/2025 6:20 AM PDT [facility] Hemoglobin 7.1(L) 13.8 - 17.2 g/dL 06/05/2025 6:20 AM PDT [facility] Hematocrit 20.9(LC) 41.0 - 50.0 % 06/05/2025 6:20 AM [facility] MCV 75(L) 81 - 100 fL 06/05/2025 6:20 AM [facility] MCH 25.4(L) 27.0 - 35.0 pg 06/05/2025 6:20 AM [facility] MCHC 34.0 32.0 - 37.0 g/dL 06/05/2025 6:20 AM [facility] RDW 18.3(H) 12.3 - 15.4 % 06/05/2025 6:20 AM [facility] Platelets 232 150 - 400 x10e3/uL 06/05/2025 6:20 AM [facility] MPV 10.6(H) 7.4 - 10.4 fL 06/05/2025 6:20 AM [facility] NRBC % 8 0 /100 WBCs 06/05/2025 6:20 AM [facility] Abs. NRBC 0.8 x10e3/uL 06/05/2025 6:20 AM [facility] Blood Venous blood / Unknown Venipuncture / Unknown 06/05/2025 5:37 AM PDT 06/05/2025 6:04 AM PDT us Adrian Thomas DO LAB BLOOD ORDERABLES Final Resu lt [facility] [address] [place] [address], * (ABNORMAL) Basic metabolic panel (06/05/2025 5:37 AM PDT) Only the most recent of3 resultswithin the time period is included. Sodium, Serum/Plasma 136 135 - 145 mmol/L LAB CHEMISTRY METHOD 06/05/2025 6:24 AM [facility] Potassium, Serum/Plasma 4.0 3.5 - 5.2 mmol/L LAB CHEMISTRY METHOD 06/05/2025 6:24 AM [facility] Chloride, Serum/Plasma 102 98 - 107 mmol/L LAB CHEMISTRY METHOD 06/05/2025 6:24 AM [facility] CO2, Serum/Plasma 26 22 - 30 mmol/L LAB CHEMISTRY METHOD 06/05/2025 6:24 AM [facility] Anion Gap, Serum/Plasma 8 3 - 11 mmol/L 06/05/2025 6:24 AM [facility] Urea Nitrogen, Serum/Plasma 4.7(L) 6.0 - 20.0 mg/dL LAB CHEMISTRY METHOD 06/05/2025 6:24 AM [facility] Creatinine, Serum/Plasma 0.53(L) 0.76 - 1.27 mg/dL LAB CHEMISTRY METHOD 06/05/2025 6:24 AM [facility] Glucose, Serum/Plasma 83 65 - 99 mg/dL LAB CHEMISTRY METHOD 06/05/2025 6:24 AM [facility] Calcium, Serum/Plasma 8.6 8.5 - 10.1 mg/dL LAB CHEMISTRY METHOD 06/05/2025 6:24 AM [facility] eGFR, Serum/Plasma (CKD-EPI 2020) 142 >60 (CKD-EPI 2020) mL/min/1. 73 m2 06/05/2025 6:24 AM [facility] Comment: eGFR calculation has been updated by recommendation of the National Kidney Foundation (NKF) without the race variable. This change was made on October 31, 2022 Interpretation for GFR in Chronic Kidney Disease can be viewed below. BUN/Creatinine Ratio, Serum/Plasma 8.9 6.0 - 24.0 06/05/2025 6:24 AM [facility] Blood Venous blood / Unknown Venipuncture / Unknown 06/05/2025 5:37 AM PDT 06/05/2025 6:03 AM [facility] - 06/05/2025 6:24 AM PDT Interpretive Data The estimated glomerular filtration rate (eGFR) was calculated using the 2020 CKD-EPI eGFR creatinine equation, which does not include race as a factor. This equation is validated in individuals 18 years of age and older. Accurate estimation of GFR requires stable day-to-day creatinine. Creatinine-based eGFR is less accurate in patients with extremes of muscle mass, restriction of dietary protein, ingestion of creatine, extra-renal metabolism of creatinine, or treatment with medications that affect renal tubular creatinine secretion. The eGFR is normalized to a body surface area of 1.73 square meters. GFR Categories in Chronic Kidney Disease (CKD) GFR Category GFR (mL/min/1.73 square meters) Interpretation G1 90 or greater Normal to high* G2 60-89 Mild decrease* G3a 45-59 Mild to moderate decrease G3b 30-44 Moderate to severe decrease G4 15-29 Severe decrease G5 14 or less Kidney failure *In the absence of evidence of kidney damage, neither GFR category G1 nor G2 fulfill the criteria for CKD (Kidney Int Suppl 2013;3:1-150) us Adrian Thomas DO LAB BLOOD ORDERABLES Final Resu lt [facility] [address] [place] [address], * (ABNORMAL) Complete blood count with diff (06/04/2025 2:32 AM PDT) Only the most recent of8 resultswithin the time period is included. WBC Auto 13.0(H) 3.8 - 10.1 x10e3/uL 06/04/2025 3:21 AM [facility] RBC 2.95(L) 4.40 - 5.80 x10e6/uL 06/04/2025 3:21 AM [facility] Hemoglobin 7.4(L) 13.8 - 17.2 g/dL 06/04/2025 3:21 AM [facility] Hematocrit 21.4(L) 41.0 - 50.0 % 06/04/2025 3:21 AM [facility] MCV 73(L) 81 - 100 fL 06/04/2025 3:21 AM [facility] MCH 25.1(L) 27.0 - 35.0 pg 06/04/2025 3:21 AM [facility] MCHC 34.6 32.0 - 37.0 g/dL 06/04/2025 3:21 AM [facility] RDW 19.0(H) 12.3 - 15.4 % 06/04/2025 3:21 AM [facility] Platelets 219 150 - 400 x10e3/uL 06/04/2025 3:21 AM [facility] MPV 10.9(H) 7.4 - 10.4 fL 06/04/2025 3:21 AM [facility] NRBC % 7 0 /100 WBCs 06/04/2025 3:21 AM [facility] Abs. NRBC 0.9 x10e3/uL 06/04/2025 3:21 AM [facility] % Neutrophils 58 % 06/04/2025 3:21 AM [facility] % Lymphocytes 21 % 06/04/2025 3:21 AM [facility] % Monocytes 16 % 06/04/2025 3:21 AM [facility] % Eosinophils 4 % 06/04/2025 3:21 AM [facility] % Basophils 1 % 06/04/2025 3:21 AM [facility] Abs. Neutrophils 7.5(H) 1.6 - 6.9 x10e3/uL 06/04/2025 3:21 AM [facility] Abs. Lymphocytes 2.8 1.1 - 4.8 x10e3/uL 06/04/2025 3:21 AM [facility] Abs. Monocytes 2.1(H) 0.0 - 1.0 x10e3/uL 06/04/2025 3:21 AM [facility] Abs. Eosinophils 0.5 0.0 - 0.5 x10e3/uL 06/04/2025 3:21 AM [facility] Abs. Basophils 0.1 0.0 - 0.4 x10e3/uL 06/04/2025 3:21 AM [facility] Abs. Neutrophils (Auto) 7,500.0(H) 1,600.0 - 6,900.0 /uL 06/04/2025 3:21 AM [facility] Blood Venous blood / Unknown Venipuncture / Unknown 06/04/2025 2:32 AM PDT 06/04/2025 3:11 AM PDT us Adrian Thomas DO LAB BLOOD ORDERABLES Final Resu lt [facility] [address] [place] [address], [place] [phone] * (ABNORMAL) Comprehensive Metabolic Panel (06/04/2025 2:32 AM PDT) Only the most recent of5 resultswithin the time period is included. Pathologist [facility] Sodium, Serum/Plasma 137 135 - 145 mmol/L LAB CHEMISTRY METHOD 06/04/2025 3:43 AM [facility] Potassium, Serum/Plasma 3.5 3.5 - 5.2 mmol/L LAB CHEMISTRY METHOD 06/04/2025 3:43 AM [facility] Chloride, Serum/Plasma 101 98 - 107 mmol/L LAB CHEMISTRY METHOD 06/04/2025 3:43 AM [facility] CO2, Serum/Plasma 27 22 - 30 mmol/L LAB CHEMISTRY METHOD 06/04/2025 3:43 AM [facility] Anion Gap, Serum/Plasma 9 3 - 11 mmol/L 06/04/2025 3:43 AM [facility] Urea Nitrogen, Serum/Plasma 4.1(L) 6.0 - 20.0 mg/dL LAB CHEMISTRY METHOD 06/04/2025 3:43 AM [facility] Creatinine, Serum/Plasma 0.54(L) 0.76 - 1.27 mg/dL LAB CHEMISTRY METHOD 06/04/2025 3:43 AM [facility] Glucose, Serum/Plasma 85 65 - 99 mg/dL LAB CHEMISTRY METHOD 06/04/2025 3:43 AM [facility] Calcium, Serum/Plasma 8.4(L) 8.5 - 10.1 mg/dL LAB CHEMISTRY METHOD 06/04/2025 3:43 AM [facility] AST, Serum/Plasma 48 17 - 59 U/L LAB CHEMISTRY METHOD 06/04/2025 3:43 AM [facility] ALT, Serum/Plasma 17 <50 U/L LAB CHEMISTRY METHOD 06/04/2025 3:43 AM [facility] Alkaline Phosphatase, Serum/Plasma 91 25 - 150 U/L LAB CHEMISTRY METHOD 06/04/2025 3:43 AM [facility] Total Protein, Serum/Plasma 7.0 6.3 - 8.2 g/dL LAB CHEMISTRY METHOD 06/04/2025 3:43 AM [facility] eGFR, Serum/Plasma (CKD-EPI 2020) 141 >60 (CKD-EPI 2020) mL/min/1. 73 m2 06/04/2025 3:43 AM [facility] Comment: eGFR calculation has been updated by recommendation of the National Kidney Foundation (NKF) without the race variable. This change was made on October 31, 2022 Interpretation for GFR in Chronic Kidney Disease can be viewed below. Albumin, Serum/Plasma 3.8 3.4 - 5.0 g/dL LAB CHEMISTRY METHOD 06/04/2025 3:43 AM [facility] Bilirubin, Total, Serum/Plasma 2.58(H) 0.2 - 1.3 mg/dL LAB CHEMISTRY METHOD 06/04/2025 3:43 AM [facility] BUN/Creatinine Ratio, Serum/Plasma 7.6 6.0 - 24.0 06/04/2025 3:43 AM [facility] Blood Venous blood / Unknown Venipuncture / Unknown 06/04/2025 2:32 AM PDT 06/04/2025 3:12 AM [facility] - 06/04/2025 3:43 AM [facility] Interpretive Data The estimated glomerular filtration rate (eGFR) was calculated using the 2020 CKD-EPI eGFR creatinine equation, which does not include race as a factor. This equation is validated in individuals 18 years of age and older. Accurate estimation of GFR requires stable day-to-day creatinine. Creatinine-based eGFR is less accurate in patients with extremes of muscle mass, restriction of dietary protein, ingestion of creatine, extra-renal metabolism of creatinine, or treatment with medications that affect renal tubular creatinine secretion. The eGFR is normalized to a body surface area of 1.73 square meters. GFR Categories in Chronic Kidney Disease (CKD) GFR Category GFR (mL/min/1.73 square meters) Interpretation G1 90 or greater Normal to high* G2 60-89 Mild decrease* G3a 45-59 Mild to moderate decrease G3b 30-44 Moderate to severe decrease G4 15-29 Severe decrease G5 14 or less Kidney failure *In the absence of evidence of kidney damage, neither GFR category G1 nor G2 fulfill the criteria for CKD (Kidney Int Suppl 2013;3:1-150) Adrian Thomas DO LAB BLOOD ORDERABLES Final Resu lt Performing Organization Address City/[facility] Co de Phone Number [facility] [address] [place] [address], [place] [phone] * Culture, Blood, Blood, Peripheral draw (05/31/2025 11:46 AM PDT) Only the most recent of2 resultswithin the time period is included. Pathologist [facility] Blood Culture No growth after 5 days 06/05/2025 1:01 PM [facility] Blood Peripheral blood / Unknown Venipuncture / Unknown 05/31/2025 11:46 AM PDT 05/31/2025 11:57 AM PDT Vimal Blackwell DO LAB MICROBIOLOGY - GENERAL O RDERABLES Final Result Performing Organization Address [facility] de Phone Number [facility] [address] [place] [address], [place] [phone] * Respiratory PCR panel (includes SARS-COV-2 (COVID-19)) (05/31/2025 10:41 AM PDT) [facility] Adenovirus Detection by PCR Not Detected Not Detected LAB MOLECULAR DIAGNOSTICS METHOD 05/31/2025 11:41 AM PDT [facility] Coronavirus 229E Detection by PCR Not Detected Not Detected LAB MOLECULAR DIAGNOSTICS METHOD 05/31/2025 11:41 AM PDT [facility] Coronavirus HKU1 Detection by PCR Not Detected Not Detected LAB MOLECULAR DIAGNOSTICS METHOD 05/31/2025 11:41 AM PDT [facility] Coronavirus NL63 Detection by PCR Not Detected Not Detected LAB MOLECULAR DIAGNOSTICS METHOD 05/31/2025 11:41 AM [facility] Coronavirus OC43 Detection by PCR Not Detected Not Detected LAB MOLECULAR DIAGNOSTICS METHOD 05/31/2025 11:41 AM [facility] SARS-CoV-2 (COVID-19) Qual PCR Not Detected Not Detected LAB MOLECULAR DIAGNOSTICS METHOD 05/31/2025 11:41 AM [facility] Metapneumovirus PCR Not Detected Not Detected LAB MOLECULAR DIAGNOSTICS METHOD 05/31/2025 11:41 AM [facility] Rhinovirus/Enterov irus PCR Not Detected Not Detected LAB MOLECULAR DIAGNOSTICS METHOD 05/31/2025 11:41 AM [facility] Influenza A PCR Not Detected Not Detected LAB MOLECULAR DIAGNOSTICS METHOD 05/31/2025 11:41 AM [facility] Influenza B PCR Not Detected Not Detected LAB MOLECULAR DIAGNOSTICS METHOD 05/31/2025 11:41 AM [facility] Parainfluenza 1 PCR Not Detected Not Detected LAB MOLECULAR DIAGNOSTICS METHOD 05/31/2025 11:41 AM [facility] Parainfluenza 2 PCR Not Detected Not Detected LAB MOLECULAR DIAGNOSTICS METHOD 05/31/2025 11:41 AM [facility] Parainfluenza 3 PCR Not Detected Not Detected LAB MOLECULAR DIAGNOSTICS METHOD 05/31/2025 11:41 AM [facility] Parainfluenza 4 PCR Not Detected Not Detected LAB MOLECULAR DIAGNOSTICS METHOD 05/31/2025 11:41 AM [facility] Respiratory Syncytial Virus PCR Not Detected Not Detected LAB MOLECULAR DIAGNOSTICS METHOD 05/31/2025 11:41 AM [facility] Bordetella parapertussis ([id number]) PCR Not Detected Not Detected LAB MOLECULAR DIAGNOSTICS METHOD 05/31/2025 11:41 AM [facility] Bordetella pertussis PCR Not Detected Not Detected LAB MOLECULAR DIAGNOSTICS METHOD 05/31/2025 11:41 AM [facility] Comment: BioFire RVP2.1 should not be used if B. pertussis infection is specifically suspected; a B. pertussis molecular test that is FDA-cleared for use on patients suspected of having a respiratory tract infection attributable to B. pertussis should be used instead. This PCR result is considered a presumptive test. Please order [id number]- B.PERTUSSIS/B.PARAPERTUSSIS PCR (SENDOUT)([facility] test code 710369) if clinical manifestations warrant further confirmatory testing for Bordetella pertussis (whooping cough). The BioFire RP2.1 detects a single-copy Pertussis toxin promoter target. Other PCR tests for B. pertussis target the multi-copy IS481 insertion sequence and are therefore capable of detecting lower levels. There is a risk of false positive results for Bordetella species and Human Rhinovirus/Enterovirus due to non-specific amplification and cross-reactivity with organisms that can be found in the respiratory tract. Chlamydia pneumoniae PCR Not Detected Not Detected LAB MOLECULAR DIAGNOSTICS METHOD 05/31/2025 11:41 AM PDT [facility] Mycoplasma pneumoniae PCR Not Detected Not Detected LAB MOLECULAR DIAGNOSTICS METHOD 05/31/2025 11:41 AM PDT [facility] Sinus Nasopharyngeal structure / Unknown 05/31/2025 10:41 AM PDT 05/31/2025 10:48 AM PDT Narrative [facility] - 05/31/2025 11:41 AM PDT SPRING COILER swab is the only specimen type cleared by the FDA. Nasal wash, tracheal aspirate, and bronchial lavage specimen types have not been cleared by the FDA. Therefore results on any specimen type other than nasopharyngeal are considered investigational testing only. Vimal Blackwell DO LAB MICROBIOLOGY - GENERAL O RDERABLES Final Result Performing Organization Address City/[facility] Co de Phone Number [facility] [address] [place] [address], * ABO/Rh Type Confirmation (05/30/2025 10:32 PM PDT) ABORh A POS 05/30/2025 11:37 PM PDT [facility] Blood Venous blood / Unknown Venipuncture / Unknown 05/30/2025 10:32 PM PDT 05/30/2025 10:43 PM PDT Jaimie Pettit MD LAB BLOOD BANK TEST ORDERABLES F inal Result Performing Organization Address City/[facility] Co de Phone Number [facility] [address] [place] [address], * US VENOUS DVT LOWER EXTREMITY DOPPLER BILATERAL (05/30/2025 9:51 PM PDT) Anatomical Region Laterality Modality Bilateral Ultrasound 05/30/2025 10:0 5 PM PDT Narrative 05/30/2025 10:05 [place]. [address] PATIENT NAME: FAVIAN GARCIA : 2000 GENDER: M EXAM DATE: 05/30/2025 21:18 ORDERED FROM: [facility] ORDERING PHYSICIAN: JAIMIE PETTIT CC: JUAN JOSE WILSON -- ROBER GARCIA - - - CONTRAST: READING STATION ID: [id number] mGy: PROCEDURE: US VENOUS LOWER EXTREMITY DOPPLER BILATERAL INDICATIONS: bilateral leg pains in a patient with sickle cell disease TECHNIQUE: Real-time imaging, as well as color and pulse Doppler interrogation, were performed of the deep veins of both legs from the inguinal ligament to the popliteal fossa, with documentation of the visualized calf veins. COMPARISON: None. FINDINGS: Right: The common femoral, femoral, popliteal, and the visualized calf veins are normally compressible, and free of intraluminal thrombus. Color and pulse Doppler demonstrate normal phasic intravascular flow. There is normal augmentation response to distal compression maneuver. Left: The common femoral, femoral, popliteal, and the visualized calf veins are normally compressible, and free of intraluminal thrombus. Color and pulse Doppler demonstrate normal phasic intravascular flow. There is normal augmentation response to distal compression maneuver. IMPRESSION: No findings of deep venous thrombosis in either lower extremity. Reviewed by: Donte Garcia M.D. on 05/30/2025 at 22:05 Approved by: Donte Garcia M.D. on 05/30/2025 at 22:05 Procedure Note Donte Garcia MD - 05/30/2025 [place]. [address] PATIENT NAME: FAVIAN GARCIA : 2000 GENDER: M EXAM DATE: 05/30/2025 21:18 [facility] ORDERING PHYSICIAN: JAIMIE PETTIT CC: JUAN JOSE WILSON -- ROBER GARCIA - - - CONTRAST: READING STATION ID: [id number] mGy: PROCEDURE: US VENOUS LOWER EXTREMITY DOPPLER BILATERAL INDICATIONS: bilateral leg pains in a patient with sickle cell disease TECHNIQUE: Real-time imaging, as well as color and pulse Doppler interrogation, wereperformed of the deep veins of both legs from the inguinal ligament to thepopliteal fossa, with documentation of the visualized calf veins. COMPARISON: None. FINDINGS: Right: The common femoral, femoral, popliteal, and the visualized calfveins are normally compressible, and free of intraluminal thrombus. Colorand pulse Doppler demonstrate normal phasic intravascular flow. There isnormal augmentation response to distal compression maneuver. Left: The common femoral, femoral, popliteal, and the visualized calfveins are normally compressible, and free of intraluminal thrombus. Colorand pulse Doppler demonstrate normal phasic intravascular flow. There isnormal augmentation response to distal compression maneuver. IMPRESSION: No findings of deep venous thrombosis in either lower extremity. Reviewed by: Donte Garcia M.D. on 05/30/2025 at 22:05 Approved by: Donte Garcia M.D. on 05/30/2025 at 22:05 Jaimie Pettit MD [facility] US PROCEDURES Final Resu lt * (ABNORMAL) Reticulocytes (05/30/2025 2:04 PM PDT) Only the most recent of3 resultswithin the time period is included. RBC 3.78(L) 4.40 - 5.80 x10e6/uL 05/30/2025 2:38 PM PDT [facility] Retic Ct Abs 0.32(H) 0.02 - 0.08 x10e6/uL 05/30/2025 2:38 PM PDT [facility] Retic Ct Pct 8.43(H) 0.60 - 2.60 % 05/30/2025 2:38 PM PDT [facility] Blood Venous blood / Unknown Venipuncture / Unknown 05/30/2025 2:04 PM PDT 05/30/2025 2:18 PM PDT us Jaimie Pettit MD LAB BLOOD ORDERABLES Final Resul t Performing Organization Address [facility] Phone Number [facility] [address] [place] [address], * Troponin (05/30/2025 2:04 PM PDT) Troponin I, Serum/Plasma 0.018 <0.034 ng/mL LAB CHEMISTRY METHOD 05/30/2025 2:56 PM PDT [facility] Comment:Patients taking Biot in supplements may have falsely decreased HCG, Ferritin, PSA, Troponin, or TSH test values. Blood Venous blood / Unknown Venipuncture / Unknown 05/30/2025 2:04 PM PDT 05/30/2025 2:18 PM PDT us Jaimie Pettit MD LAB BLOOD ORDERABLES Final Resul t Performing Organization Address [facility] Phone Number [facility] [address] [place] [address], * ECG 12 lead (05/30/2025 1:48 PM PDT) HR 75 bpm [facility] IECG RR 800 ms [facility] CA 288 ms [facility]G QRSD 89 ms [facility]G QT 403 ms [facility]G QTc 451 ms [facility]G QRS 29 deg [facility] I[facility]G T 56 deg [facility] I[facility]G Impression - ABNORMAL ECG - [facility] IECG Impression Sinus rhythm [facility] IECG Impression Prolonged CA interval [facility] IECG 05/30/2025 1:48 PM PDT us Jaimie Pettit MD ECG ORDERABLES Final Result Performing Organization Address [facility] Co de Phone Number [facility] I[facility] * XR CHEST 1 VIEW (05/30/2025 1:47 PM PDT) Anatomical Region Laterality Modality Body N/A Radiographic Franca ging 05/30/2025 2:22 PM PDT Narrative 05/30/2025 2:22 [place]. [address] PATIENT NAME: FAVIAN GARCIA : 2000 GENDER: M EXAM DATE: 05/30/2025 13:44 ORDERED FROM: [facility] ORDERING PHYSICIAN: JAIMIE PETTIT CC: -- - - - CONTRAST: READING STATION ID: [id number] mGy: PROCEDURE: XR CHEST 1 VIEW INDICATIONS: hx of sickle cell TECHNIQUE: One view of the chest was acquired. COMPARISON: None. FINDINGS: Surgical changes and devices: None. Lungs and pleura: Lungs are clear. No pleural effusions or pneumothorax. Mediastinum: Mediastinal contours appear normal. Heart size is normal. Bones and chest wall: Diffuse sclerosis of the axial and appendicular skeleton. 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 Overlying soft tissues appear unremarkable. IMPRESSION: No focal consolidation. Skeletal sequela of sickle cell disease. Reviewed by: Polo Rogers M.D. on 05/30/2025 at 14:21 Approved by: Polo Rogers M.D. on 05/30/2025 at 14:22 Procedure Note Polo Rogers MD - 05/30/2025 [place]. [address] PATIENT NAME: FAVIAN GARCIA : 2000 GENDER: M EXAM DATE: 05/30/2025 13:44 ORDERED FROM: [facility] ORDERING PHYSICIAN: JAIMIE PETTIT CC: -- - - - CONTRAST: READING STATION ID: [id number] mGy: PROCEDURE: XR CHEST 1 VIEW INDICATIONS: hx of sickle cell TECHNIQUE: One view of the chest was acquired. COMPARISON: None. FINDINGS: Surgical changes and devices: None. Lungs and pleura: Lungs are clear. No pleural effusions or pneumothorax. Mediastinum: Mediastinal contours appear normal. Heart size is normal. Bones and chest wall: Diffuse sclerosis of the axial and appendicularskeleton. Chronic deformity of the left proximal humerus, likely sequelaof remote bone infarct and cortical collapse. Overlying soft tissuesappear unremarkable. IMPRESSION: No focal consolidation. Skeletal sequela of sickle cell disease. Reviewed by: Polo Rogers M.D. on 05/30/2025 at 14:21 Approved by: Polo Rogers M.D. on 05/30/2025 at 14:22 us Jaimie Pettit MD RIS [facility] XR PROCEDURES Final Resu lt * Manual differential (05/25/2025 1:18 PM PDT) Only the most recent of2 resultswithin the time period is included. % Neutrophils Segmented, Manual 54 % 05/25/2025 1:56 PM PDT [facility] % Lymphocytes, Manual 40 % 05/25/2025 1:56 PM PDT [facility] % Monocytes, Manual 5 % 05/25/2025 1:56 PM PDT [facility] % Eosinophils, Manual 1 % 05/25/2025 1:56 PM PDT [facility] Abs. Segs, Manual 6.0 1.6 - 6.9 x10e3/uL 05/25/2025 1:56 PM PDT [facility] Abs. Lymphocytes, Manual 4.5 1.1 - 4.8 x10e3/uL 05/25/2025 1:56 PM PDT [facility] Abs. Monocytes, Manual 0.6 0.0 - 1.0 x10e3/uL 05/25/2025 1:56 PM PDT [facility] Abs. Eosinophils, Manual 0.1 0.0 - 0.5 x10e3/uL 05/25/2025 1:56 PM PDT [facility] Total Counted 100 05/25/2025 1:56 PM PDT [facility] Abs. Neutrophils (Manual) 6,048.0 1,600.0 - 6,900.0 /uL 05/25/2025 1:56 PM PDT [facility] WBC Morphology Normal 05/25/2025 1:56 PM PDT [facility] Anisocytosis 1+ 05/25/2025 1:56 PM PDT [facility] Polychromasia 1+ 05/25/2025 1:56 PM PDT [facility] Sickle Cells 2+ 05/25/2025 1:56 PM PDT [facility] Target Cells 2+ 05/25/2025 1:56 PM PDT [facility] Platelet Estimate Adequate Adequate 025 1:56 PM PDT [facility] Blood Venous blood / Unknown Venipuncture / Unknown 05/25/2025 1:18 PM PDT 05/25/2025 1:21 PM PDT us Tyesha Melendez MD LAB BLOOD ORDERABLES Final Resu lt Performing Organization Address City/[facility]/ZIP Co de Phone Number [facility] [address] [place] [address], * (ABNORMAL) Protime-INR (05/25/2025 1:18 PM PDT) Prothrombin Time 16.4(H) 11.9 - 15.0 sec 05/25/2025 1:36 PM PDT [facility] INR 1.3(H) 0.8 - 1.2 05/25/2025 1:36 PM PDT [facility] Comment: Therapeutic Ranges: Low intensity therapy INR 1.5- 2.0 Mod. intensity therapy INR 2.0 - 3.0 High intensity therapy (1) INR 2.5 - 3.5 High intensity therapy (2) INR 3.0 - 4.0 Critical value INR INR >5.9 Blood Venous blood / Unknown Venipuncture / Unknown 05/25/2025 1:18 PM PDT 05/25/2025 1:21 PM PDT Narrative [facility] - 05/25/2025 1:36 PM PDT A hematocrit >55% may cause falsely prolonged PT and PTT results. us Tyesha Melendez MD LAB BLOOD ORDERABLES Final Resu lt [facility] [address] [place] [address], [place] [phone] * (ABNORMAL) Hgb Fractionation by HPLC+Solubility (05/13/2025 12:10 PM PDT) Hbg Solubility Positive(A ) Negative 05/18/2025 1:07 PM PDT [facility] Hgb F 5.0(H) 0.0 - 2.0 % 05/18/2025 1:07 PM PDT [facility] Hgb A 5.2(L) 96.4 - 98.8 % 05/18/2025 1:07 PM PDT [facility] Hgb A2 Comment 1.8 - 3.2 % 05/18/2025 1:07 PM PDT [facility] Comment:See Capillary Electr ophoresis (CE) result. 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 Blood Venous blood / Unknown Venipuncture / Unknown 05/13/2025 12:10 PM PDT 05/13/2025 12:10 PM PDT Narrative [facility] - 05/18/2025 1:07 PM PDT Performed at: - [address] [id number] Scheduler Maintenance: Ana Maria Lenz MD, Phone: [phone] us Marilyn Painting MD LAB BLOOD ORDERABLES Final Resul t [facility] [address] [facility] [address] [place] [address], [place] [phone] * (ABNORMAL) Hemoglobinopathy Fractionation [place] (05/13/2025 12:10 PM PDT) Pathologist [facility] Hgb F Reflexed 0.0 - 2.0 % 05/18/2025 1:07 PM PDT [facility] Hgb A Reflexed 96.4 - 98.8 % 05/18/2025 1:07 PM PDT [facility] Hgb A2 4.1(H) 1.8 - 3.2 % 05/18/2025 1:07 PM PDT [facility] Hgb S Reflexed 0.0 % 05/18/2025 1:07 PM PDT [facility] Interpretation: Comment 1:07 PM PDT [facility] Comment: Capillary Electrophoresis (CE) performed. Reflex to Hgb Solubility and High-pressure liquid chromatography (HPLC) method for confirmation. Blood Venous blood / Unknown Venipuncture / Unknown 05/13/2025 12:10 PM PDT 05/13/2025 12:10 PM PDT Narrative [facility] - 05/18/2025 1:07 PM PDT Performed at: - [address] [id number] Scheduler Maintenance: Ana Maria Lenz MD, Phone: [phone] Marilyn Painting MD LAB BLOOD ORDERABLES Final Resul t [address] [address], * Vitamin B12 and Folate (05/13/2025 12:10 PM PDT) Pathologist [facility] Vitamin B12 689 232 - 1245 pg/mL 05/15/2025 1:08 PM PDT [facility] Folate 5.2 >3.0 ng/mL 05/15/2025 1:08 PM PDT [facility] Comment: A serum folate concentration of less than 3.1 ng/mL is considered to represent clinical deficiency. Blood Venous blood / Unknown Venipuncture / Unknown 05/13/2025 12:10 PM PDT 05/13/2025 12:10 PM PDT Narrative [facility] - 05/15/2025 1:08 PM PDT Performed at: 01 - [facility] [place] [address] [address] [address], [place], [place] [id number] Scheduler Maintenance: Bean Hooper MD, Phone: [phone] Marilyn Painting MD LAB BLOOD ORDERABLES Final Resul t Performing Organization Address City/[facility]/ZIP Co de Phone Number [facility] [place] [address] [address] [facility] [address] [place] [address], [place] [phone] * Iron profile (05/13/2025 12:10 PM PDT) % Iron Saturation, Serum/Plasma 22 15 - 50 % 05/13/2025 6:04 PM PDT [facility] Iron, Serum/Plasma 81 40 - 140 ug/dL LAB CHEMISTRY METHOD 05/13/2025 6:04 PM PDT [facility] Total Iron Binding Capacity, Serum/Plasma 374 250 - 400 ug/dL LAB CHEMISTRY METHOD 05/13/2025 6:04 PM PDT [facility] Blood Venous blood / Unknown Venipuncture / Unknown 05/13/2025 12:10 PM PDT 05/13/2025 12:10 PM PDT us Marilyn Painting MD LAB BLOOD ORDERABLES Final Resul t Performing Organization Address City/[facility]/ZIP Co de Phone Number [facility] [address] [place] [address], * (ABNORMAL) LDH, Blood (05/13/2025 12:10 PM PDT) Lactate Dehydrogenase (LDH), Serum/Plasma 348(H) 120 - 246 U/L LAB CHEMISTRY METHOD 05/13/2025 5:54 PM PDT [facility] Blood Venous blood / Unknown Venipuncture / Unknown 05/13/2025 12:10 PM PDT 05/13/2025 12:10 PM PDT Marilyn Painting MD LAB BLOOD ORDERABLES Final Resul t [facility] [address] [place] [address], [place] [phone] * (ABNORMAL) Haptoglobin (05/13/2025 12:10 PM PDT) Pathologist [facility] Haptoglobin <10(L) 17 - 317 mg/dL 05/15/2025 5:09 AM PDT [facility] Blood Venous blood / Unknown Venipuncture / Unknown 05/13/2025 12:10 PM PDT 05/13/2025 12:10 PM PDT Narrative [facility] 05/15/2025 5:09 AM PDT Performed at: 01 - [facility] [id number] Scheduler Maintenance: Bean Hooper MD, Phone: [phone] us Marilyn Painting MD LAB BLOOD ORDERABLES Final Resul t Performing Organization Address [facility] Co de Phone Number [facility] [address], [place] [phone] * Ferritin (05/13/2025 12:10 PM PDT) Pathologist [facility] Ferritin, Serum/Plasma 72 38 - 270 ng/mL LAB CHEMISTRY METHOD 05/13/2025 6:26 PM PDT [facility] Comment: Heparin plasma samples show approximately 15% negative bias when compared to matched serum samples Patients taking Biotin supplements may have falsely decreased HCG, Ferritin, PSA, Troponin, or TSH test values. Blood Venous blood / Unknown Venipuncture / Unknown 05/13/2025 12:10 PM PDT 05/13/2025 12:10 PM PDT us Marilyn Painting MD LAB BLOOD ORDERABLES Final Resul t Performing Organization Address [facility] Co de Phone Number [facility] [address] [place] [address], [place] [phone] from Last 3 Months Advance Directives * Full Code (Latest Code Status on File) Date Activated Date Inactivated Comments 05/30/2025 7:36 PM 06/05/2025 7:30 PM Question Answer Comments Discussed the code status with patient and/or fa hannah: Yes Care Teams Electronic Publishing Specialist Relationship Specialty Start Date End Date Jen Albarran FNP [address], [address] [place] [address] PCP - General Nurse Practitioner Family 04/21/25
[2025-08-12 02:56] VITALS: BP 119/64; PULSE 83; RESP 18; TEMP 36.8; O2SAT 97; BMI 18.6
[2025-08-12 04:08] LABS: Add Manual Diff / Slide Review NO; Hematocrit 26.8 % (41-53); Hemoglobin 9.2 g/dL (13.5-17.5); Lymphocytes Absolute Auto 3800 /uL (1100-4500); Mean Corpuscular HGB Conc 34.3 % (30-36); Mean Corpuscular Hemoglobin 25.3 PG (26-34); Mean Corpuscular Volume 73.7 fL (80-100); Platelet Count 249 X10^3/uL (150-400)
[2025-08-12 04:13] LABS: INR 1.2 (0.9-1.3); Prothrombin Time 13.3 SECONDS (9.4-12.5)
[2025-08-12 04:15] LABS: Reticulocyte Count, Percent 5.8 % (0.9-2.6)
[2025-08-12 04:18] LABS: Alanine Aminotransferase 30 IU/L (<50); Albumin 4.5 g/dL (3.5-5.0); Albumin Globulin Ratio 1.3 (1.0-2.8); Alkaline Phosphatase 69 U/L (38-126); Blood Urea Nitrogen 7 mg/dL (9-20); Calcium 8.3 mg/dL (8.4-10.2); Carbon Dioxide 24 mmol/L (22-32); Chloride 108 mmol/L (98-107); Estimated Glomerular Filt Rate > 60 mL/min (>60); Globulin 3.4 g/dL (1.7-4.1); Glucose 100 mg/dL (70-99); Potassium 3.8 mmol/L (3.4-5.1); Sodium 140 mmol/L (137-145); Total Protein 7.9 g/dL (6.3-8.2)
[2025-08-12 04:19] LABS: HEMOLYSIS 52 (0-50)
--- NOTE | 2025-08-12 04:28 | ED.EXTPRO ---
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 Denies chest pain or shortness of breath. Denies abdominal pain. Has some mild headache. Denies symptoms of photophobia or neck stiffness. No new focal weakness, nor numbness. Related Data Home Medications ?Medication ?Instructions ?Recorded ?Confirmed albuterol sulfate 90 mcg/actuation 2 puff inhalation Q6H PRN wheezing 11/18/24 06/17/25 aerosol inhaler Previous Rx's ?Medication ?Instructions ?Recorded cholecalciferol (vitamin D3) 10 20 mcg (2 x 10 mcg (400 unit)) PO 10/25/24 mcg (400 unit) capsule DAILY #180 caps duloxetine 60 mg capsule,delayed 60 mg PO DAILY #90 caps 05/01/25 release lidocaine 5 % topical patch 1 patch topical DAILY PRN pain 05/30/25 (scale score 1-3) #30 ea methocarbamol 750 mg tablet 750 mg PO Q8H PRN muscle spasm #20 05/30/25 tabs hydroxyurea 500 mg capsule 500 mg PO DAILY #30 caps 06/09/25 oxycodone 5 mg tablet 5 mg PO Q3H PRN Pain, Moderate 06/10/25 (4-6) #15 tabs benzonatate 200 mg capsule 200 mg PO TID PRN cough #30 caps 06/17/25 benzonatate 200 mg capsule 200 mg PO TID PRN cough #30 caps 06/17/25 guaifenesin 1,200 mg tablet, 1,200 mg PO Q12H #30 tabs 06/17/25 extended release 12 hr albuterol sulfate 90 mcg/actuation 1 inh inhalation Q4-6H PRN 08/08/25 breath activated powder inhaler shortness of breath or wheezing #1 ea benzonatate 200 mg capsule 200 mg PO TID PRN cough #30 caps 08/08/25 prednisone 20 mg tablet 20 mg PO BID #10 tabs 08/08/25 Allergies Allergy/AdvReac Type Severity Reaction Status Date / Time No Known Drug Allergies Allergy Verified 07/19/25 00:23 Patient History Medical History History of CVA (cerebrovascular accident) Vitamin D deficiency PTSD (post-traumatic stress disorder) Depression Anxiety Seizure Anemia Avascular necrosis of bone Contracture, left elbow Contracture, left hand CVA (cerebral vascular accident) Sickle cell anemia Surgical History History of shoulder surgery 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 HEAD: Atraumatic. Normocephalic. EYES: Pupils equal round and reactive. Extraocular motions intact. No scleral icterus. No injection or drainage. ENT: Nose without bleeding, purulent drainage. Throat without erythema, tonsillar hypertrophy or exudate. Airway patent. NECK: Trachea midline. Non tender CARDIOVASCULAR: Regular rate and rhythm without murmurs, gallops, or rubs. RESPIRATORY: Clear to auscultation. Breath sounds equal bilaterally. No wheezes, rales, or rhonchi. GASTROINTESTINAL: Abdomen soft, non-tender, nondistended. EXTREMITIES: Left upper extremity contracture with muscle wasting looks similar to prior presentations, for lower extremity edema or swelling or redness. BACK: Nontender without deformity or crepitance. No flank tenderness. NEURO: AOx3. Motor functions grossly nonfocal. SKIN: No rash or erythema of visible areas Initial Vital Signs Initial Vital Signs: Vital Signs Temperature 98.3 F 08/12/25 02:56 Pulse Rate 83 08/12/25 02:56 Respiratory Rate 18 08/12/25 02:56 Blood Pressure 119/64 08/12/25 02:56 Pulse Oximetry 97 08/12/25 02:56 Oxygen Delivery Method Room Air 08/12/25 02:56 Course Orders Ordered: ED Orders 08/12/25 03:56 CBC Auto Diff [Complete Blood Count AUTO DIFF] Stat CMP [Comprehensive Metabolic Panel] Stat Prothrombin Time INR Stat RETIC [Reticulocyte Count, Percent] Stat Discontinued Medications Hydromorphone HCl (Hydromorphone 1 Mg/Ml Syringe) 1 mg IV NOW ONE Stop: 08/12/25 04:05 Last Admin: 08/12/25 04:31 Dose: 1 mg Documented By: LOAN Hydromorphone HCl (Hydromorphone 1 Mg/Ml Syringe) 1 mg IV NOW ONE Stop: 08/12/25 05:33 Last Admin: 08/12/25 05:37 Dose: 1 mg Documented By: MATHEW Sodium Chloride (Normal Saline 0.9%) 1,000 mls @ 1,000 mls/hr IV BOLUS ONE Stop: 08/12/25 05:27 Last Infusion: 08/12/25 05:40 Dose: Infused Documented By: Admin: 08/12/25 04:32 Dose: 1,000 mls/hr Documented By: LOAN Oxycodone/Acetaminophen (Oxycodone/Acetaminophen 5/325 Tablet) 1 tab PO NOW ONE Stop: 08/12/25 06:00 Last Admin: 08/12/25 06:17 Dose: 1 tab Documented By: LOAN Oxycodone/Acetaminophen (Oxycodone/Apap 5/325 Prepack) 1 bottle MISC DIRECTED ONE Stop: 08/12/25 06:00 Last Admin: 08/12/25 06:17 Dose: 1 bottle Documented By: LOAN Vital Signs Vital signs: Vital Signs - 8 hr 08/12/25 02:56 08/12/25 06:23 Temperature 98.3 F Pulse Rate 83 85 Respiratory Rate 18 18 Blood Pressure 119/64 121/69 Pulse Oximetry 97 97 Oxygen Delivery Method Room Air Room Air MDM - Extremity (Nontraumatic) Lab Data Attestation: I reviewed the patient's lab results. Lab results narrative: White blood cell count 86659, hemoglobin 9.2, platelets 249,000 adequate. Glucose 100. Renal function normal, with normal serum CO2 and electrolytes. Total bilirubin 2.5 mild elevation, similar to previous presentations. Transaminases and alkaline phosphatase levels normal. Reticulocyte count 5.8 today, decreased from recent visit 8 days ago at 6.9. 08/12/25 03:56 08/12/25 03:56 Labs: Lab Results 08/12/25 Range/Units 03:56 WBC 13.7 H (4.5-11.0) X10^3/uL RBC 3.64 L (4.5-5.9) X10^6/uL Hgb 9.2 L (13.5-17.5) g/dL Hct 26.8 L (41-53) % MCV 73.7 L (80-100) fL MCH 25.3 L (26-34) PG MCHC 34.3 (30-36) % RDW 17.0 H (11.6-14.8) % Plt Count 249 (150-400) X10^3/uL Neut % (Auto) 55.8 (50-75) % Lymph % (Auto) 27.9 (25-40) % [place] % (Auto) 13.9 (3-14) % Eos % (Auto) 1.5 L (2-4) % Baso % (Auto) 0.9 (0-2) % Neut # (Auto) 7700 H (8473-0172) /uL Lymph # (Auto) 3800 (4489-6476) /uL [place] # (Auto) 1900 H (0-900) /uL Eos # (Auto) 200 (0-450) /uL Baso # (Auto) 100 (0-100) /uL Percent Retic 5.8 H (0.9-2.6) % PT 13.3 H (9.4-12.5) SECONDS INR 1.2 (0.9-1.3) Sodium 140 (137-145) mmol/L Potassium 3.8 (3.4-5.1) mmol/L Chloride 108 H (98-107) mmol/L Carbon Dioxide 24 (22-32) mmol/L BUN 7 L (9-20) mg/dL Creatinine 0.56 L (0.66-1.25) mg/dL Estimated GFR > 60 (>60) mL/min BUN/Creatinine Ratio 12.5 (6-22) Glucose 100 H (70-99) mg/dL Calcium 8.3 L (8.4-10.2) mg/dL Total Bilirubin 2.5 H (0.2-1.3) mg/dL AST 59 (17-59) IU/L ALT 30 (<50) IU/L Alkaline Phosphatase 69 (38-126) U/L Total Protein 7.9 (6.3-8.2) g/dL Albumin 4.5 (3.5-5.0) g/dL Globulin 3.4 (1.7-4.1) g/dL Albumin/Globulin Ratio 1.3 (1.0-2.8) MDM Narrative Medical decision making narrative: 24-year-old male with history of sickle disease, sickle crises presentations, typically with back in lower extremity pain, with nontraumatic bilateral lower extremity pain today, and mild headache. Afebrile, sirs screen negative. Labs pending including reticulocyte count. IV fluids, IV Dilaudid. Lab data: White blood cell count 12762, hemoglobin 9.2, platelets 249,000 adequate. Glucose 100. Renal function normal, with normal serum CO2 and electrolytes. Total bilirubin 2.5 mild elevation, similar to previous presentations. Transaminases and alkaline phosphatase levels normal. Reticulocyte count 5.8 today, decreased from recent visit 8 days ago at 6.9. IV Dilaudid repeated, symptoms improved. Oral oxycodone. Home pack oxycodone. Advised follow up with his [facility] based automatic glove [facility]. Discharged home, return precautions discussed. Discharge Plan Departure Patient Disposition: Home Clinical Impression: Sickle cell disease with crisis, Bilateral leg pain Activity Restrictions/Additional Instructions: Presumed exacerbation of your sickle disease, typically with low back pain and/or bilateral leg pain, today with leg pain. No obvious infection changes. IV fluids and IV Dilaudid doses given as per previous rescue therapy presentations. Reticulocyte count was elevated, but not as elevated as in previous visits. Follow up with your [facility] automatic glove former as scheduled. Consider calling your [facility] later today during regular hours to let them know about your recent ED visit and today's ED visit, to see if his other therapeutic interventions or earlier appointment that might be appropriate for follow up. Home pack of oxycodone/acetaminophen provided for pain control to use if needed. Further pain control for sickle related pain per your hematology or your other pain control providers. Prescriptions: No Action benzonatate 200 mg capsule 200 mg PO TID PRN (Reason: cough) Qty: 30 0RF guaifenesin 1,200 mg tablet extended release 12hr 1,200 mg PO Q12H Qty: 30 0RF cholecalciferol (vitamin D3) 10 mcg (400 unit) capsule 20 mcg PO DAILY Qty: 180 0RF Rx Instructions: Start two capsules daily after 6 weeks of 1250mcg weekly dosing. duloxetine 60 mg capsule,delayed release(DR/EC) 60 mg PO DAILY Qty: 90 2RF albuterol sulfate 90 mcg/actuation HFA aerosol inhaler 2 puff inhalation Q6H PRN (Reason: wheezing) hydroxyurea 500 mg capsule 500 mg PO DAILY Qty: 30 0RF oxycodone 5 mg Tablet 5 mg PO Q3H PRN (Reason: Pain, Moderate (4-6)) Qty: 15 0RF benzonatate 200 mg capsule 200 mg PO TID PRN (Reason: cough) Qty: 30 0RF prednisone 20 mg tablet 20 mg PO BID Qty: 10 0RF albuterol sulfate 90 mcg/actuation aerosol powdr breath activated 1 inh inhalation Q4-6H PRN (Reason: shortness of breath or wheezing) Qty: 1 0RF benzonatate 200 mg capsule 200 mg PO TID PRN (Reason: cough) Qty: 30 0RF methocarbamol 750 mg tablet 750 mg PO Q8H PRN (Reason: muscle spasm) Qty: 20 0RF lidocaine 5 % adhesive patch,medicated 1 patch topical DAILY PRN (Reason: pain (scale score 1-3)) Qty: 30 0RF Rx Instructions: leave on most painful area for up to 12 hrs Stand Alone Forms: Patient Portal/API
[2025-08-12] MEDS: SODIUM CHLORIDE 0.9% 1,000 ML 1000 ML IV (04:32)
[2025-08-12 06:23] VITALS: BP 121/69; PULSE 85; RESP 18; O2SAT 97
== END 2025-08-12 06:55 | disposition home or self-care (01) ==
PROVIDERS: Emergency Provider Emergency Medicine
DX: D57.09 Hb-SS disease with crisis with other specified complication (principal); M79.605 Pain in left leg; M79.604 Pain in right leg; R22.0 Localized swelling, mass and lump, head; R51.9 Headache, unspecified
CPT/HCPCS: 36415; 80053; 85025; 85045; 85610; 96361; 96374; 96376; 99284; J1171; J7030